=== PATIENT | female | born 1950 | race Caucasian/White ===

== ENCOUNTER 2019-12-10 14:54 | Inpatient (IN) | payer MEDICARE, BC, SELFPAY ==
[2019-12-10] VITALS (7 sets, daily range): BP systolic 124–132; BP diastolic 49–94; PULSE 55–63; RESP 12–16; TEMP 36.1; O2SAT 91–100; BMI 38.4
--- NOTE | ~2019-12-10 | CT_ITS ---
EXAMINATION: CT cervical spine wo con DATE: 12/10/2019 17:41 INDICATION: Neck pain TECHNIQUE: Computed tomography (CT) of the cervical spine was performed without intravenous contrast. The dose-length product was 459 mGy-cm. Automated exposure control and iterative reconstruction tech nique were employed. COMPARISON: None FINDINGS: There is degenerative anterolisthesis at C4-5. There is disc narrowing at C5-6 and C6-7 wit h dorsal osteophytes at these levels. Odontoid process within normal limits. There are are uncinate d egenerative changes of the mid and lower cervical spine. Lung apices are normal. No significant raymundo delmy soft tissue abnormality. Lung apices are unremarkable. IMPRESSION: 1. No acute abnormality of the cervical spine. Reviewed, dictated and finalized at location A.
--- NOTE | ~2019-12-10 | MR_ITS ---
EXAMINATION: MRA brain wo con DATE: 12/11/2019 08:08 INDICATION: Headache. Neck pain. Dizziness. TECHNIQUE: Magnetic resonance angiography (MRA) of the brain was performed without intravenous contra st with T1-weighted SPGR by the 3D [id number] technique. Maximum intensity projection 3D-reconstr uctions were obtained. COMPARISON: Brain MRI 12/11/2019 FINDINGS: There is mild motion artifact. Left vertebral artery is dominant. There is no significant stenosis of basilar artery or the posterior cerebral arteries. Left P1 posterior cerebral artery segment is smal l, a normal variant. There is no significant stenosis of the intracranial internal carotid arteries o r anterior or middle cerebral arteries. Anterior communicating artery is normal. The posterior commun icating arteries are normal. There is no aneurysm. IMPRESSION: 1. No aneurysm or significant intracranial arterial stenosis. Reviewed, dictated and finalized at location A.
--- NOTE | ~2019-12-10 | MR_ITS ---
EXAMINATION: MRA neck wo con DATE: 12/11/2019 08:09 INDICATION: Neck pain. Dizziness. TECHNIQUE: Magnetic resonance angiography (MRA) of the neck was performed without intravenous contras t. Sequences included axial 2D-time of flight T1-weighted FSPGR and axial Inhance without intravenous contrast. COMPARISON: Ultrasound 12/11/2019 FINDINGS: Left vertebral artery is dominant. There is mild plaque in the proximal internal carotid arteries. Th ere is 0% stenosis of the proximal right internal carotid artery relative to normal distal artery lum en diameter (NASCET criteria). There is 0% stenosis of the proximal left internal carotid artery rel ative to normal distal artery lumen diameter. IMPRESSION: 1. 0% stenosis of the proximal internal carotid arteries relative to normal distal artery lumen diame ters (NASCET criteria). Reviewed, dictated and finalized at location A. IMPRESSION: 1. 0% stenosis of the proximal internal carotid arteries relative to normal dis emigdio artery lumen diameters (NASCET criteria).
--- NOTE | ~2019-12-10 | CT_ITS ---
EXAMINATION: CT brain wo con DATE: 12/10/2019 17:41 INDICATION: Headache. Neck pain. TECHNIQUE: Computed tomography (CT) of the head was performed without intravenous contrast. The dose- length product was 605.33 mGy-cm. Automated exposure control and iterative reconstruction technique w ere employed. COMPARISON: 09/15/2018 FINDINGS: Generalized atrophy. There are scattered moderate periventricular and subcortical white mat ter changes, most likely related to small vessel ischemic disease (microangiopathy). No acute intracr anial hemorrhage, infarction, mass or mass effect. There is intracranial atherosclerosis. No midline shift. Paranasal sinuses and mastoids are pneumatized. No depressed skull fractures. IMPRESSION: 1. No acute intracranial abnormality. 2: Chronic age-related findings. Reviewed, dictated and finalized at location A.
--- NOTE | ~2019-12-10 | XR_ITS ---
EXAMINATION: XR chest 1V portable DATE: 12/10/2019 16:14 INDICATION: Shortness of breath. TECHNIQUE: A single frontal view of the chest was obtained. COMPARISON: Chest 2 views 09/15/2018 FINDINGS: The chest demonstrates clear lungs without pneumonia, pleural effusion, or pneumothorax. Th e heart size is normal. IMPRESSION: 1. No acute cardiopulmonary disease. Reviewed, dictated and finalized at location A.
--- NOTE | ~2019-12-10 | MR_ITS ---
EXAMINATION: MR brain/brain stem wo con DATE: 12/11/2019 08:08 INDICATION: Headache. Dizziness. TECHNIQUE: Magnetic resonance imaging (MRI) of the brain and brainstem was performed without intraven ous contrast. Sequences included sagittal and axial T1-weighted FSE, axial diffusion-weighted FS EPI, axial T2*-weighted GRE, axial T2-weighted FLAIR Propeller, and axial T2-weighted Propeller. Apparent diffusion coefficient (ADC) maps were created. COMPARISON: Brain MRI 09/16/2018, head CT 12/10/2019 FINDINGS: There are scattered areas of nonspecific increased T2-weighted signal intensity in the cere bral white matter and marlyn. There is no intracranial hemorrhage, acute infarction, or abnormal intrac ranial mass lesion. The ventricles are normal in size. The orbits are normal. There is mild mucosal t hickening in the paranasal sinuses. The mastoid air cells are normal. IMPRESSION: 1. Extensive nonspecific cerebral white matter disease and pontine disease, which likely represents c hronic small vessel ischemic disease, worsened from 09/16/2018. Reviewed, dictated and finalized at location A. IMPRESSION: 1. Extensive nonspecific cerebral white matter disease and pontine disease, whi ch likely represents chronic small vessel ischemic disease, worsened from 019.
--- NOTE | ~2019-12-10 | US_ITS ---
EXAMINATION: US carotid duplex BI DATE: 12/11/2019 09:27 INDICATION: Dizziness. TECHNIQUE: Grayscale, color Doppler, and pulsed Doppler images of the cervical carotid arteries were obtained. The degree of vessel stenosis is placed in one of the following categories: normal, <50%, 5 0-69%, >=70% but less than near-occlusion, near-occlusion, or total occlusion. Note that percent sten osis relative to normal distal artery lumen diameter is indirectly measured from velocity measurement s as described by Patel, et al. Radiology 2003; [id number]:340-346. COMPARISON: None. FINDINGS: RIGHT: The right common carotid artery (CCA) peak systolic velocity (PSV) is 72 cm/s. The right internal car otid artery (ICA) PSV is 57 cm/s. The right ICA end-diastolic velocity (EDV) is 10 cm/s. The right IC A/CCA PSV ratio is 0.8. Grayscale and color Doppler images yield an estimate of <50% diameter reducti on from plaque in the ICA. There is antegrade flow in the right vertebral artery. LEFT: The left CCA PSV is 72 cm/s. The left ICA PSV is 76 cm/s. The left ICA EDV is 18 cm/s. The left ICA/C CA PSV ratio is 1.1. Grayscale and color Doppler images yield an estimate of <50% diameter reduction from plaque in the ICA. There is antegrade flow in the left vertebral artery. IMPRESSION: 1. <50% stenosis in the right internal carotid artery. 2. <50% stenosis in the left internal carotid artery. Reviewed, dictated and finalized at location A.
--- NOTE | 2019-12-10 16:03 | ECG_ITS ---
Measurements Intervals [place] Rate: 60 P: 135 NM: 175 QRS: 183 QRSD: 92 T: 141 QT: 428 QTc: 429 Interpretive Statements SINUS RHYTHM LIMB LEAD REVERSAL BASELINE ARTIFACT- I, II, III, AVR, AVL, AVF, V1-V3 ATYPICAL ECG Electronically Signed On 12-10-2019 19:27:53 CDT by Calin Fernandez D.O.
--- NOTE | 2019-12-10 16:24 | ED.GENADULT ---
HPI - General Adult General Chief complaint: Unspecified Stated complaint: neck pain Time Seen by Provider: 12/10/19 15:45 Source: patient History of Present Illness HPI narrative: Patient is a 69 y/o female complaining of neck pain and headache earlier to day while she was talking a shower. She describes her pain as sharp and rates it as 10/10. She states that her neck pain eased up, but she still has a headache. She denies any injury prior to the onset of headache and neck pain. She is not sure about the exact time of onset. However, her states that it started around 2:00 PM. states that she complained of dizziness earlier. She also has been having SOB for 3 days. Related Data Home Medications Medication Instructions Recorded Confirmed albuterol sulfate 2 puff INHALATION DAILY PRN 12/10/19 12/11/19 aspirin [Morris Aspirin] 325 mg PO BID 12/10/19 12/10/19 atorvastatin 80 mg PO DAILY 12/10/19 12/10/19 carbidopa-levodopa 3 tablet PO Q8H 12/10/19 12/11/19 diazepam 10 mg PO TID 12/10/19 12/10/19 fluoxetine 40 mg PO BID 12/10/19 12/10/19 hydroxyzine pamoate 25 mg PO QID 12/10/19 12/10/19 loratadine [Claritin] 10 mg PO DAILY 12/10/19 12/10/19 losartan 50 mg PO DAILY 12/10/19 12/10/19 oxcarbazepine 300 mg PO BID 12/10/19 12/10/19 quetiapine 50 mg PO HS 12/10/19 12/10/19 Allergies Allergy/AdvReac Type Severity Reaction Status Date / Time iodine Allergy Unknown Hives Verified 12/10/19 21:42 latex Allergy Unknown Hives Verified 12/10/19 21:42 Contrast Media Allergy Mild Hives Uncoded 12/10/19 16:53 Review of Systems Constitutional: Constitutional: Denies chills, Denies fever(s), Reports headache(s) and Denies weakness Eyes: Eyes: Reports as per HPI and Denies blurry vision ENT: Reports headache(s) and Reports neck pain Cardiovascular: Cardiovascular: Denies chest pain and Reports dyspnea Respiratory: Respiratory: Denies cough and Reports dyspnea Gastrointestinal: Gastrointestinal: Denies abdominal pain, Denies diarrhea, Denies nausea and Denies vomiting Genitourinary: Genitourinary: Denies hematuria and Denies dysuria Musculoskeletal: Musculoskeletal: Denies back pain and Denies neck pain Neurologic: Reports headache(s) and Denies weakness [facility] Family History Family History Grandparent Diabetes mellitus Acute myocardial infarction Father Acute myocardial infarction Mother Acute myocardial infarction Social History Social History Smoking packs per day: 1 Smoking cigarettes per day: 20.0 Years smoked: 40 Smoking pack-years: 40.00 Smoking status: Current every day smoker Tobacco type: cigarettes Alcohol intake: never Gender identity (if verbalized by the patient): Female Spiritual care concerns: No Exam Const: General: no acute distress and well developed Orientation/consciousness: oriented to person, oriented to place, oriented to time and patient oriented x3 HENMT: Head: normocephalic Ears: external ears normal General nose exam: Normal external nose present Eyes: General: appearance normal, both eyes and all related structures Conjunctivae: conjunctivae normal Neck: Neck: normal visual inspection and full ROM Chest: Chest palpation & inspection: normal inspection of the chest and no tenderness Resp: Effort & Inspection: normal respiratory effort Auscultation: clear to auscultation bilaterally Cardio: Rate: regular rate Rhythm: regular rhythm GI: GI Palp: No abdominal tenderness and Yes Soft to palpation Skin: General skin exam: normal color and turgor normal Neuro: General: oriented to person, oriented to place, oriented to time and patient oriented x3 Cranial nerves: Yes CN's II-XII intact bilaterally Cognition (Neuro): normal cognition Speech: normal speech Motor exam (neuro): 5/5 motor strength present throughout Sensory Exam: normal sensation
[2019-12-10 16:27] LABS: Basophils Absolute Auto 0.1 K/mm3 (0.0-0.1); Basophils Percent Auto 0.6 % (0.2-1.2); Eosinophils Absolute Auto 0.3 K/mm3 (0-0.3); Eosinophils Percent Auto 2.5 % (0-4.4); Hematocrit 32.7 % (37.0-47.0); Hemoglobin 10.1 g/dL (12.0-15.0); Immature Granulocyte Absolute 0.06 K/mm3 (0.00-0.031); Immature Granulocyte Percent A 0.5 % (0-0.5); Lymphocytes Absolute Auto 0.86 K/mm3 (0.9-3.2); Lymphocytes Percent Auto 6.9 % (18.3-44.2); Mean Corpuscular HGB Conc 30.9 g/dl (32-36); Mean Corpuscular Hemoglobin 27.7 pg (26-34); Mean Corpuscular Volume 89.8 fl (80-100); Mean Platelet Volume 10.7 fl (7.4-10.4); Monocytes Absolute Auto 0.7 K/mm3 (0.1-0.6); Monocytes Percent Auto 5.8 % (2.6-8.5); Neutrophils Absolute Auto 10.5 K/mm3 (1.3-6.7); Neutrophils Percent Auto 83.7 % (45.5-73.1); Platelet Count Result 353 k/mm3 (150-375); Red Blood Count 3.64 M/mm3 (4.2-5.4); White Blood Count 12.5 K/mm3 (4.5-10.0)
[2019-12-10 16:41] LABS: Alanine Aminotransferase 7 U/L (4-35); Albumin Level 4.2 g/dL (3.5-5.1); Alkaline Phosphatase 144 U/L (38-126); Anion Gap 11 mmol/L (8-16); Aspartate Amino Transferase 16 U/L (14-36); Bilirubin,Total 0.3 mg/dL (0.2-1.3); Blood Urea Nitrogen 21 mg/dL (7-17); Calcium 10.2 mg/dL (8.4-10.2); Carbon Dioxide 25 mmol/L (22-30); Chloride 101 mmol/L (98-107); Estimated CRCL calculation 35 ml/min; Estimated Glomerular Filt Rate 34; Glucose 159 mg/dL (65-105); Potassium 3.8 mmol/L (3.4-5.0); Sodium 137 mmol/L (137-145)
[2019-12-10 16:52] LABS: Troponin I < 0.012 ng/mL (0.000-0.034)
[2019-12-10] MEDS: CYCLOBENZAPRINE HCL 10 MG TABLET PO (20:14)
[2019-12-10] MEDS: ASPIRIN 81 MG CHEWABLE TABLET PO (20:15)
[2019-12-10 20:35] LABS: Troponin I < 0.012 ng/mL (0.000-0.034)
--- NOTE | 2019-12-10 21:20 | ADMGEN ---
This patient, Jenni Rondon, was admitted to Medical Room 347-. Patient/family oriented to hospital policies and general routines including ID bracelet, bed and alarms, visiting hours, pain management, procedures, bathroom and other care routines, personal items, smoking policy, room service/diet, and visiting hours. Information on how to activate the Rapid Response Team has been discussed. Patient/Family are encouraged to report perceived risks to care and to ask questions if they do not understand what they are told or what they should do.
[2019-12-10 23:02] LABS: Troponin I < 0.012 ng/mL (0.000-0.034)
[2019-12-11] VITALS (8 sets, daily range): BP systolic 100–130; BP diastolic 52–70; PULSE 53–60; RESP 12–18; TEMP 35.9–36.8; O2SAT 94–98
[2019-12-11 08:36] LABS: Glucose Point of Care 103 (65-105)
[2019-12-11] MEDS: LORATADINE 10 MG TABLET PO (11:09)
[2019-12-11] MEDS: OXcarbazepine 300 MG TABLET PO ×2 (11:09→21:09)
[2019-12-11] MEDS: FLUoxetine HCL 20 MG CAPSULE 40 MG PO ×2 (11:09→21:09)
[2019-12-11] MEDS: ASPIRIN 325 MG TABLET PO ×2 (11:10→21:09)
[2019-12-11] MEDS: LOSARTAN POTASSIUM 50 MG TABLET PO (11:10)
[2019-12-11] MEDS: ATORVASTATIN 40 MG TABLET 80 MG PO (11:10)
[2019-12-11] MEDS: LIDOCAINE 5% PATCH 2 PATCH TRANSDERM (11:11)
[2019-12-11 11:37] LABS: Glucose Point of Care 143 (65-105)
[2019-12-11] MEDS: hydrOXYzine pamoate 25 MG CAPSULE PO ×3 (12:32→21:11)
[2019-12-11] MEDS: diazePAM (*CRX) 5 MG TABLET 10 MG PO ×2 (12:32→17:09)
[2019-12-11] MEDS: CARBIDOPA/LEVODOPA 25/100 MG TABLET 3 TABLET PO ×2 (12:32→21:11)
--- NOTE | 2019-12-11 12:54 | PM.IMHP ---
H&P: HPI History of Present Illness Date/Time: 12/11/19 12:54 Chief complaint: neck pain/dizziness Narrative: Jenni Rondon is a 69 year old female with history of Parkinson's, hypertension, patient presented emergency department with a complaint sharp neck pain and headache while taking shower yesterday evening, the pain had started earlier in the afternoon, patient denies any trauma or injury, patient did feel dizzy, by the time patient came to emergency depart the intensity of the pain had improved, this morning patient states the pain still there but not as intense, patient states she is able to move her neck and there is no increase in her pain, upon close examination the pain is located along the lower cervical spine and paraspinal muscles, to further evaluate patient had MRA of the head and neck which were essentially normal without any stenosis, similarly CT scan of cervical spine does not show any sign of injury or trauma, MRI of the brain did not show any acute injury, patient does have extensive nonspecific cerebral white matter disease and pontine disease, which likely represents chronic small vessel ischemic disease, worsened from 09/16/2018 as stated earlier patient pain is reproducible in the lower cervical spine and paraspinal muscles most likely patient has a muscular pain, as patient denies any numbness tingling in upper extremities with movement of her neck, will apply Lidoderm patches and have a PT OT evaluate the patient Review of Systems Review of Systems: All systems reviewed & are unremarkable except as noted in HPI and below PMFSH Family History Family History Grandparent Diabetes mellitus Acute myocardial infarction Father Acute myocardial infarction Mother Acute myocardial infarction Social History Social History Smoking packs per day: 1 Smoking cigarettes per day: 20.0 Years smoked: 40 Smoking pack-years: 40.00 Smoking status: Current every day smoker Tobacco type: cigarettes Alcohol intake: never Gender identity (if verbalized by the patient): Female Spiritual care concerns: No Meds Home Medications and Allergies Home Medications Medication Instructions Recorded Confirmed Type albuterol sulfate 2 puff INHALATION DAILY PRN 12/10/19 12/11/19 History aspirin [Morris Aspirin] 325 mg PO BID 12/10/19 12/10/19 History atorvastatin 80 mg PO DAILY 12/10/19 12/10/19 History carbidopa-levodopa 3 tablet PO Q8H 12/10/19 12/11/19 History diazepam 10 mg PO TID 12/10/19 12/10/19 History fluoxetine 40 mg PO BID 12/10/19 12/10/19 History hydroxyzine pamoate 25 mg PO QID 12/10/19 12/10/19 History loratadine [Claritin] 10 mg PO DAILY 12/10/19 12/10/19 History losartan 50 mg PO DAILY 12/10/19 12/10/19 History oxcarbazepine 300 mg PO BID 12/10/19 12/10/19 History quetiapine 50 mg PO HS 12/10/19 12/10/19 History Allergies Allergy/AdvReac Type Severity Reaction Status Date / Time iodine Allergy Unknown Hives Verified 12/10/19 21:42 latex Allergy Unknown Hives Verified 12/10/19 21:42 Contrast Media Allergy Mild Hives Uncoded 12/10/19 16:53 Vital Signs Vital Signs - 24 hr 12/10/19 14:58 12/10/19 17:03 12/10/19 18:48 Temperature 97.0 F L Pulse Rate 63 58 L 61 Respiratory Rate 16 12 16 Blood Pressure 128/78 125/49 L 127/57 L Pulse Oximetry 100 91 100 12/10/19 20:15 12/10/19 21:09 12/10/19 22:12 Temperature Pulse Rate 59 L 55 L 59 L Respiratory Rate 13 16 Blood Pressure 132/61 124/94 H Pulse Oximetry 98 98 12/10/19 23:57 12/11/19 00:00 12/11/19 04:00 Temperature 97 F L Pulse Rate 55 L 59 L 59 L Respiratory Rate 16 Blood Pressure 127/50 L Pulse Oximetry 99 12/11/19 05:52 12/11/19 12:00 12/11/19 12:33 Temperature 97 F L 96.7 F L Pulse Rate 60 59 L 58 L Respiratory Rate 16 18 Blood Pressure 126/56 L 130/70 Pulse Oximetry 97 97
[2019-12-11] MEDS: ACETAMINOPHEN 325 MG TABLET 650 MG PO (13:57)
--- NOTE | 2019-12-11 15:23 | PCOTNOTE ---
On 12/11/19, the student, Susi Haynes, provided care and completed [facility] documentation on this patient. I have reviewed the student's documentation and agree with the findings.
[2019-12-11] MEDS: QUEtiapine FUMARATE 25 MG TABLET 50 MG PO (21:09)
[2019-12-12] VITALS (7 sets, daily range): BP systolic 96–130; BP diastolic 44–62; PULSE 55–66; RESP 12–18; TEMP 36.1–36.5; O2SAT 96–99
[2019-12-12] MEDS: CARBIDOPA/LEVODOPA 25/100 MG TABLET 3 TABLET PO ×2 (05:26→13:00)
[2019-12-12 05:45] LABS: Hematocrit 30.4 % (37.0-47.0); Hemoglobin 9.5 g/dL (12.0-15.0); Mean Corpuscular HGB Conc 31.3 g/dl (32-36); Mean Corpuscular Volume 89.7 fl (80-100); Mean Platelet Volume 11.1 fl (7.4-10.4); Platelet Count Result 292 k/mm3 (150-375); Red Blood Count 3.39 M/mm3 (4.2-5.4); Red Cell Distribution Width 15.5 % (11.5-14.5); White Blood Count 5.7 K/mm3 (4.5-10.0)
[2019-12-12 06:01] LABS: Anion Gap 8 mmol/L (8-16); Blood Urea Nitrogen 21 mg/dL (7-17); Calcium 9.2 mg/dL (8.4-10.2); Carbon Dioxide 24 mmol/L (22-30); Chloride 107 mmol/L (98-107); Estimated CRCL calculation 40 ml/min; Estimated Glomerular Filt Rate 40; Glucose 121 mg/dL (65-105); Potassium 4.3 mmol/L (3.4-5.0); Sodium 139 mmol/L (137-145)
[2019-12-12] MEDS: diazePAM (*CRX) 5 MG TABLET 10 MG PO ×3 (08:08→17:01)
[2019-12-12] MEDS: ASPIRIN 325 MG TABLET PO ×2 (08:08→17:01)
[2019-12-12] MEDS: FLUoxetine HCL 20 MG CAPSULE 40 MG PO (08:08)
[2019-12-12] MEDS: ATORVASTATIN 40 MG TABLET 80 MG PO (08:08)
[2019-12-12] MEDS: LOSARTAN POTASSIUM 50 MG TABLET PO (08:09)
[2019-12-12] MEDS: OXcarbazepine 300 MG TABLET PO (08:09)
[2019-12-12] MEDS: LORATADINE 10 MG TABLET PO (08:09)
[2019-12-12] MEDS: ACETAMINOPHEN 325 MG TABLET 650 MG PO (08:09)
[2019-12-12] MEDS: LIDOCAINE 5% PATCH 2 PATCH TRANSDERM (08:10)
[2019-12-12] MEDS: hydrOXYzine pamoate 25 MG CAPSULE PO ×3 (08:11→17:01)
--- NOTE | 2019-12-12 10:43 | PC.NURSE ---
Message left for inclusion paraeducator.
--- NOTE | 2019-12-12 15:26 | PM.IMPN ---
Progress Note: A&P Assessment and Plan (1) Neck pain: Code(s): M54.2 - Cervicalgia Status: Acute Assessment and Plan: 12/12/19 15:26 Jenni Rondon is a 69 year old female with history of Parkinson's, hypertension, patient presented emergency department with a complaint sharp neck pain and headache while taking shower yesterday evening, the pain had started earlier in the afternoon, patient denies any trauma or injury, patient did feel dizzy, by the time patient came to emergency depart the intensity of the pain had improved, this morning patient states the pain still there but not as intense, patient states she is able to move her neck and there is no increase in her pain, upon close examination the pain is located along the lower cervical spine and paraspinal muscles, to further evaluate patient had MRA of the head and neck which were essentially normal without any stenosis, similarly CT scan of cervical spine does not show any sign of injury or trauma, MRI of the brain did not show any acute injury, patient does have extensive nonspecific cerebral white matter disease and pontine disease, which likely represents chronic small vessel ischemic disease, worsened. as stated earlier patient pain is reproducible in the lower cervical spine and paraspinal muscles most likely patient has a muscular pain, as patient denies any numbness tingling in upper extremities with movement of her neck, will apply Lidoderm patches and have a PT OT evaluate the patient today 12/11 patient still complains of pain in the neck and upper shoulder shoulders, however patient appears more depressed and concerned as patient has 2 adult autistic children in the event of her will take care of her children, I have spoken to long term care social worker and they will provide information regarding this matter, I spoke with her nurse and patient is more relax now, may possibly discharge if her family is comfortable taking her home. (2) Parkinson disease: Code(s): G20 - Parkinson's disease Status: Acute Assessment and Plan: continue patient's home regimen and monitor (3) Hypertension: Code(s): I10 - Essential (primary) hypertension Status: Acute Assessment and Plan: will continue patient's home regimen and monitor (4) Depression: Code(s): F32.9 - Major depressive disorder, single episode, unspecified Status: Acute Assessment and Plan: will continue patient's home regimen and monitor Subjective Date/time seen: 12/12/19 15:26 Jenni Rondon is a 69 year old female with history of Parkinson's, hypertension, patient presented emergency department with a complaint sharp neck pain and headache while taking shower yesterday evening, the pain had started earlier in the afternoon, patient denies any trauma or injury, patient did feel dizzy, by the time patient came to emergency depart the intensity of the pain had improved, this morning patient states the pain still there but not as intense, patient states she is able to move her neck and there is no increase in her pain, upon close examination the pain is located along the lower cervical spine and paraspinal muscles, to further evaluate patient had MRA of the head and neck which were essentially normal without any stenosis, similarly CT scan of cervical spine does not show any sign of injury or trauma, MRI of the brain did not show any acute injury, patient does have extensive nonspecific cerebral white matter disease and pontine disease, which likely represents chronic small vessel ischemic disease, worsened. as stated earlier patient pain is reproducible in the lower cervical spine and paraspinal muscles most likely patient has a muscular pain, as patient denies any numbness tingling in upper extremities with movement of her neck, will apply Lidoderm patches and have a PT OT evaluate the patient today 12/11 patient still complains of pain in the
--- NOTE | 2019-12-12 16:10 | PM.DS ---
DS: Admitting Diagnosis Admitting Diagnosis Admitting Diagnosis: neck pain/dizziness DS: Discharge Diagnosis Discharge Diagnosis (1) Neck pain: Code(s): M54.2 - Cervicalgia Status: Acute Assessment and Plan: 12/12/19 15:26 Jenni Rondon is a 69 year old female with history of Parkinson's, hypertension, patient presented emergency department with a complaint sharp neck pain and headache while taking shower yesterday evening, the pain had started earlier in the afternoon, patient denies any trauma or injury, patient did feel dizzy, by the time patient came to emergency depart the intensity of the pain had improved, this morning patient states the pain still there but not as intense, patient states she is able to move her neck and there is no increase in her pain, upon close examination the pain is located along the lower cervical spine and paraspinal muscles, to further evaluate patient had MRA of the head and neck which were essentially normal without any stenosis, similarly CT scan of cervical spine does not show any sign of injury or trauma, MRI of the brain did not show any acute injury, patient does have extensive nonspecific cerebral white matter disease and pontine disease, which likely represents chronic small vessel ischemic disease, worsened. as stated earlier patient pain is reproducible in the lower cervical spine and paraspinal muscles most likely patient has a muscular pain, as patient denies any numbness tingling in upper extremities with movement of her neck, will apply Lidoderm patches and have a PT OT evaluate the patient today 12/11 patient still complains of pain in the neck and upper shoulder shoulders, however patient appears more depressed and concerned as patient has 2 adult autistic children in the event of her will take care of her children, I have spoken to specialist wound care and they will provide information regarding this matter, I spoke with her nurse and patient is more relax now, may possibly discharge if her family is comfortable taking her home. (2) Parkinson disease: Code(s): G20 - Parkinson's disease Status: Acute Assessment and Plan: continue patient's home regimen and monitor (3) Hypertension: Code(s): I10 - Essential (primary) hypertension Status: Acute Assessment and Plan: will continue patient's home regimen and monitor (4) Depression: Code(s): F32.9 - Major depressive disorder, single episode, unspecified Status: Acute Assessment and Plan: will continue patient's home regimen and monitor DS: Summary Hospital Course Reason for hospitalization: Chief complaint: neck pain/dizziness Narrative: Jenni Rondon is a 69 year old female with history of Parkinson's, hypertension, patient presented emergency department with a complaint sharp neck pain and headache while taking shower yesterday evening, the pain had started earlier in the afternoon, patient denies any trauma or injury, patient did feel dizzy, by the time patient came to emergency depart the intensity of the pain had improved, this morning patient states the pain still there but not as intense, patient states she is able to move her neck and there is no increase in her pain, upon close examination the pain is located along the lower cervical spine and paraspinal muscles, to further evaluate patient had MRA of the head and neck which were essentially normal without any stenosis, similarly CT scan of cervical spine does not show any sign of injury or trauma, MRI of the brain did not show any acute injury, patient does have extensive nonspecific cerebral white matter disease and pontine disease, which likely represents chronic small vessel ischemic disease, worsened from 09/16/2018 as stated earlier patient pain is reproducible in the lower cervical spine and paraspinal muscles most likely patient has a muscular pain, as patient denies any numbness tinglin
== END 2019-12-12 17:20 | disposition home or self-care (01) | DRG 552 ==
LOC: ANHED 15:45 → ANH3MED 20:40
PROVIDERS: Admitting Provider Internal Medicine; Emergency Provider Emergency Medicine; Visit Provider Family Medicine
DX: M54.2 Cervicalgia (principal); R51.9 Headache, unspecified; R42 Dizziness and giddiness; G20 Parkinson's disease; I10 Essential (primary) hypertension; F32.9 Major depressive disorder, single episode, unspecified; F17.210 Nicotine dependence, cigarettes, uncomplicated; Z79.82 Long term (current) use of aspirin; Z79.899 Other long term (current) drug therapy
CPT/HCPCS: 36415; 70450; 70544; 70547; 70551; 71045; 72125; 80048; 80053; 84484; 85025; 85027; 93005; 93880; 97161; 97165; 97530; 97535; 99285; A9270; G0378

== ENCOUNTER 2019-12-16 05:38 | Inpatient (IN) | payer MEDICARE, BC, SELFPAY ==
[2019-12-16] VITALS (17 sets, daily range): BP systolic 107–176; BP diastolic 52–77; PULSE 64–74; RESP 13–22; TEMP 36.9–37.2; O2SAT 97–100; BMI 39.2
--- NOTE | ~2019-12-16 | XR_ITS ---
EXAMINATION: XR chest 1V portable INDICATION: Chest pain TECHNIQUE: Portable AP chest at 0610 hours COMPARISON: 12/10/2019 FINDINGS: The lungs are free of acute opacities. There is no pleural effusion or pneumothorax. The he art size is normal. There is calcified atherosclerosis. IMPRESSION: 1. No acute cardiopulmonary abnormality. Reviewed, dictated and finalized at location A. SR
--- NOTE | ~2019-12-16 | CT_ITS ---
EXAMINATION: CT abdomen pelvis wo con DATE: 12/16/2019 08:26 INDICATION: Abdominal pain TECHNIQUE: Computed tomography (CT) of the abdomen and pelvis was performed without intravenous contr ast. The dose-length product (DLP) was 1104.47 mGy-cm. Automated exposure control and iterative recon struction technique were employed. COMPARISON: 02/13/2007 FINDINGS: Minimal dependent atelectasis is present in the lung bases. The heart size is normal. The l iver, spleen, pancreas, gallbladder, and adrenal glands are normal. There is a [address] one of the right kidney upper pole. A 12 mm cyst is noted in the left kidney. No pathologically enlar ged abdominal or pelvic lymph nodes are identified. There is no free intraperitoneal gas or evidence of bowel obstruction. The appendix is normal. There is mild lumbar spondylosis. Stable lobulated soft tissue and fat attenuation area near the medial aspect of the left gluteus presley muscle likely ref lects prior trauma. IMPRESSION: 1. No CT correlate for the patient's symptoms. Reviewed, dictated and finalized at location A. MASTER
--- NOTE | ~2019-12-16 | CT_ITS ---
EXAMINATION: CT brain wo con INDICATION: Transient alteration of awareness COMPARISON: 12/10/2019 TECHNIQUE: Standard unenhanced head CT. The dose-length product (DLP) was 605.33 mGy-cm. The mA was a djusted according to patient size. Iterative reconstruction technique was employed. FINDINGS: There is no acute intraparenchymal hemorrhage. No evidence of mass lesion. No evidence of a cute infarction. There is moderate periventricular and subcortical hypodensity probably related to sm all vessel ischemic disease. There is mild prominence of the sulci and ventricles related to cerebral atrophy. Intracranial calcified cerebral atherosclerosis is noted. There are no extra-axial collecti ons. There is no mass effect or midline shift. The orbits and soft tissues are unremarkable. There i s mild mucosal thickening of the paranasal sinuses. IMPRESSION: 1. No acute intracranial abnormality. 2. Age related findings. Reviewed, dictated and finalized at location A. TY SPECIALIST
--- NOTE | ~2019-12-16 | NM_ITS ---
EXAMINATION: NM pulmonary perfusion EXAM DATE: 12/16/2019 10:02 INDICATION: dyspnea, elevated d dimer. TECHNIQUE: A perfusion lung scan was performed. The patient was injected with 5.4 mCi technetium 99 m MAA and imaged. Modified PIOPED 2 criteria used for interpretation of perfusion without ventilation study (recent chest x-ray instead for comparison). Comparison is made to prior examination from 2010. Correlation was made with chest x-ray same date. FINDINGS: There are no chest x-ray opacities. Minimally heterogeneous nonsegmental left upper lobe ac tivity, perfusion without segmental defect. IMPRESSION: Low probability pulmonary embolism. Reviewed, dictated and finalized at location B. R RESOURCE MANAGER
--- NOTE | 2019-12-16 05:53 | ECG_ITS ---
Measurements Intervals [place] Rate: 66 P: 74 SD: 201 QRS: 3 QRSD: 76 T: 27 QT: 389 QTc: 410 Interpretive Statements SINUS RHYTHM BASELINE ARTIFACT- V1 NORMAL ECG Electronically Signed On 12-16-2019 6:59:22 [employer] by Calin Fernandez D.O.
--- NOTE | 2019-12-16 05:54 | ED.SYNCOPE ---
HPI - Syncope General Chief Complaint: Fall <Fly Ramsey MD - Last Filed: 12/16/19 06:41> Stated Complaint: fall, syncope <Fly Ramsey MD - Last Filed: 12/16/19 06:41> Time Seen by Provider: 12/16/19 05:44 <Fly Ramsey MD - Last Filed: 12/16/19 06:41> Source: patient <Fly Ramsey MD - Last Filed: 12/16/19 06:41> Mode of arrival: EMS <Fly Ramsey MD - Last Filed: 12/16/19 06:41> Limitations: no limitations <Fly Ramsey MD - Last Filed: 12/16/19 06:41> History of Present Illness HPI narrative: Patient is a 69-year-old female brought in by EMS due to syncopal episode at home witnessed by family. Patient states that she was getting up to go the restroom when she felt weak and passed out. Patient states that she was also having chest pain last night but not having any now. Patient denies any shortness of breath, nausea vomiting, abdominal pain, or fever. <Fly Ramsey MD - Last Filed: 12/16/19 06:41> Related Data Home Medications: Home Medications Medication Instructions Recorded Confirmed albuterol sulfate 2 puff INHALATION DAILY PRN 12/10/19 12/11/19 aspirin [Morris Aspirin] 325 mg PO BID 12/10/19 12/10/19 atorvastatin 80 mg PO DAILY 12/10/19 12/10/19 carbidopa-levodopa 3 tablet PO Q8H 12/10/19 12/11/19 diazepam 10 mg PO TID 12/10/19 12/10/19 fluoxetine 40 mg PO BID 12/10/19 12/10/19 hydroxyzine pamoate 25 mg PO QID 12/10/19 12/10/19 loratadine [Claritin] 10 mg PO DAILY 12/10/19 12/10/19 losartan 50 mg PO DAILY 12/10/19 12/10/19 oxcarbazepine 300 mg PO BID 12/10/19 12/10/19 quetiapine 50 mg PO HS 12/10/19 12/10/19 <Fly Ramsey MD - Last Filed: 12/16/19 06:41> Allergies/Adverse Reactions: Allergies Allergy/AdvReac Type Severity Reaction Status Date / Time iodine Allergy Unknown Hives Verified 12/16/19 05:51 latex Allergy Unknown Hives Verified 12/16/19 05:51 Contrast Media Allergy Mild Hives Uncoded 12/10/19 16:53 <Fly Ramsey MD - Last Filed: 12/16/19 06:41> Review of Systems Review of Systems: All systems reviewed & are unremarkable except as noted in HPI and below <Fly Ramsey MD - Last Filed: 12/16/19 06:41> Constitutional: Constitutional: Denies body ache(s), Denies chills, Denies excessive sweating, Denies fatigue, Denies fever(s), Denies headache(s), Denies lethargy, Denies malaise and Denies weight loss <Fly Ramsey MD - Last Filed: 12/16/19 06:41> Eyes: Eyes: Denies blurry vision, Denies change in vision and Denies loss of vision <Fly Ramsey MD - Last Filed: 12/16/19 06:41> ENT: Denies dizziness, Denies ear discharge, Denies headache(s), Denies lip swelling, Denies epistaxis, Denies nasal congestion, Denies neck pain, Denies throat swelling and Denies tongue swelling <Fly Ramsey MD - Last Filed: 12/16/19 06:41> Cardiovascular: Cardiovascular: Denies chest pain, Denies chest pain at rest, Denies chest pain with activity, Denies diaphoresis, Denies rapid heart rate, Denies edema, Denies irregular heart rhythm, Denies lightheadedness, Denies palpitations, Denies dyspnea and Denies dyspnea on exertion <Fly Ramsey MD - Last Filed: 12/16/19 06:41> Respiratory: Respiratory: Denies chest congestion, Denies cough, Denies hemoptysis, Denies dyspnea and Denies dyspnea on exertion <Fly Ramsey MD - Last Filed: 12/16/19 06:41> Gastrointestinal: Gastrointestinal: Denies abdominal pain, Denies melena, Denies hematochezia, Denies diarrhea, Denies nausea, Denies vomiting and Denies hematemesis <Fly Ramsey MD - Last Filed: 12/16/19 06:41> Musculoskeletal: Musculoskeletal: Denies abnormal gait, Denies deformity, Denies joint swelling, Denies limited range of motion, Denies neck pain and Denies numbness <Fly Ramsey MD - Last Filed: 12/16/19 06:41> Neurologic: Denies Abnormal speech present, Denies abnormal gait, Denies confusion, Denies dizziness, D
[2019-12-16] MEDS: SODIUM CHLORIDE 0.9% IV 1,000 ML 999 ML IV CONT (06:14)
[2019-12-16 06:45] LABS: Basophils Absolute Auto 0.1 K/mm3 (0.0-0.1); Basophils Percent Auto 0.8 % (0.2-1.2); Eosinophils Absolute Auto 0.6 K/mm3 (0-0.3); Eosinophils Percent Auto 5.9 % (0-4.4); Hematocrit 34.4 % (37.0-47.0); Hemoglobin 10.5 g/dL (12.0-15.0); Immature Granulocyte Absolute 0.05 K/mm3 (0.00-0.031); Immature Granulocyte Percent A 0.5 % (0-0.5); Lymphocytes Absolute Auto 1.11 K/mm3 (0.9-3.2); Lymphocytes Percent Auto 11.6 % (18.3-44.2); Mean Corpuscular HGB Conc 30.5 g/dl (32-36); Mean Corpuscular Hemoglobin 27.7 pg (26-34); Mean Corpuscular Volume 90.8 fl (80-100); Mean Platelet Volume 11.4 fl (7.4-10.4); Monocytes Absolute Auto 0.7 K/mm3 (0.1-0.6); Monocytes Percent Auto 7.1 % (2.6-8.5); Neutrophils Absolute Auto 7.1 K/mm3 (1.3-6.7); Neutrophils Percent Auto 74.1 % (45.5-73.1); Platelet Count Result 286 k/mm3 (150-375); Red Blood Count 3.79 M/mm3 (4.2-5.4); Red Cell Distribution Width 15.5 % (11.5-14.5); White Blood Count 9.5 K/mm3 (4.5-10.0)
[2019-12-16] MEDS: ONDANSETRON INJ 4 MG/2 ML VIAL IV PUSH ×4 (06:49→21:38)
[2019-12-16] MEDS: MORPHINE SULFATE (*CRX) 2 MG/ML INJ IV PUSH (06:49)
[2019-12-16 06:54] LABS: INR 0.9; Prothrombin Time 13.2 Seconds (11.1-14.7)
[2019-12-16 06:55] LABS: Partial Thromboplastin Time 24.4 SECONDS (22.3-36.8)
[2019-12-16 06:58] LABS: Albumin Level 4.1 g/dL (3.5-5.1); Alkaline Phosphatase 135 U/L (38-126); Anion Gap 12 mmol/L (8-16); Aspartate Amino Transferase 17 U/L (14-36); Bilirubin,Total 0.2 mg/dL (0.2-1.3); Blood Urea Nitrogen 21 mg/dL (7-17); Calcium 10.3 mg/dL (8.4-10.2); Carbon Dioxide 22 mmol/L (22-30); Chloride 106 mmol/L (98-107); Estimated CRCL calculation 44 ml/min; Estimated Glomerular Filt Rate 44; Glucose 146 mg/dL (65-105); Potassium 4.5 mmol/L (3.4-5.0); Sodium 140 mmol/L (137-145)
[2019-12-16 07:05] LABS: Alanine Aminotransferase < 6 U/L (4-35)
[2019-12-16 07:09] LABS: Troponin I < 0.012 ng/mL (0.000-0.034)
[2019-12-16 08:01] LABS: D Dimer > 20.00 ug/mL (<0.48)
[2019-12-16 09:53] LABS: Troponin I < 0.012 ng/mL (0.000-0.034)
[2019-12-16 10:46] LABS: Add Urine Microscopic? YES; Appearance Urine Cloudy (Clear); Bacteria Urine 2+ /hpf; Bilirubin Urine Negative (Negative); Blood Urine 2+ (Negative); Color Urine Yellow (Yellow); Glucose Urine UA Negative (Negative); Hyaline Casts Urine 30-49 /lpf; Ketones Urine Trace mg/dL (Negative); Leukocyte Esterase Ur 2+ LEU/UL (Negative); Mucus Urine Few /lpf; Nitrate Urine Positive (Negative); Protein Urine 2+ mg/dL (Negative); Specific Grav Ur 1.017 (1.001-1.035); Squamous Epithelial Cell Urine Moderate /hpf (Few); WBC Clumps Urine Present /HPF; WBC Urine 51-75 /hpf
--- NOTE | 2019-12-16 12:10 | ADMGEN ---
This patient, Jenni Rondon, was admitted to Medical Room 244-. Patient/family oriented to hospital policies and general routines including ID bracelet, bed and alarms, visiting hours, pain management, procedures, bathroom and other care routines, personal items, smoking policy, room service/diet, and visiting hours. Information on how to activate the Rapid Response Team has been discussed. Patient/Family are encouraged to report perceived risks to care and to ask questions if they do not understand what they are told or what they should do.
[2019-12-16] MEDS: LACTATED RINGERS 1,000 ML 80 ML IV CONT (12:27)
--- NOTE | 2019-12-16 12:59 | WPDGICN ---
Assessment and Plan Assessment and plan (1) GI bleed: Code(s): K92.2 - Gastrointestinal hemorrhage, unspecified Status: Acute Assessment and Plan: GI bleeding of uncertain etiology. She has description of both black melenic stools as well as bright red blood. She has a history of colon polyps as recently as 1 and half years ago. Plan is for GI endoscopy to include both colonoscopy an EGD tomorrow after preparation today. Hemoglobin will continue be monitored in the interim. Her urinary tract infection will be treated with antibiotics. We will follow with you. (2) Syncope: Code(s): R55 - Syncope and collapse Status: Acute (3) Anemia: Code(s): D64.9 - Anemia, unspecified Status: Acute (4) Acute UTI: Code(s): N39.0 - Urinary tract infection, site not specified Status: Acute (5) Parkinson disease: Code(s): G20 - Parkinson's disease Status: Acute (6) History of colon polyps: Code(s): Z86.010 - Personal history of colonic polyps Status: Acute GI Consult Note Consult date/time: 12/16/19 12:59 HPI: Jenni Rondon is a 69 year old female Seen in evaluation at the request of the emergency room. Patient in usual state of health will this morning and had a syncopal episode. Ambulance was called noted to have bloody stools upon presenting to the emergency room. Stools have been described as black and melenic but also has bright red blood. Patient complains of abdominal cramping. She states 1-1/2 years ago had a colonoscopy at [facility] in multiple polyps were removed. She is not on blood thinners. Past medical history is significant for Parkinson's disease, bipolar manic depressive illness, she currently has been treated for urinary tract infection. She recently has complaints of neck pain. She denies the use of nonsteroidal anti-inflammatory agents. Review of Systems Review of Systems: Narrative: Complains of neck pain. All systems reviewed & are unremarkable except as noted in HPI and below PMFSH Family History Family History Grandparent Diabetes mellitus Acute myocardial infarction Father Acute myocardial infarction Mother Acute myocardial infarction Social History Social History Smoking packs per day: 1 Smoking cigarettes per day: 20.0 Years smoked: 40 Smoking pack-years: 40.00 Smoking status: Current every day smoker Tobacco type: cigarettes Alcohol intake: never Gender identity (if verbalized by the patient): Female Spiritual care concerns: No Meds Home Medications and Allergies Home Medications Medication Instructions Recorded Confirmed Type albuterol sulfate 2 puff INHALATION DAILY PRN 12/10/19 12/11/19 History atorvastatin 80 mg PO DAILY 12/10/19 12/10/19 History carbidopa-levodopa 3 tablet PO Q8H 12/10/19 12/11/19 History diazepam 10 mg PO TID 12/10/19 12/10/19 History fluoxetine 40 mg PO BID 12/10/19 12/10/19 History hydroxyzine pamoate 25 mg PO QID 12/10/19 12/10/19 History loratadine [Claritin] 10 mg PO DAILY 12/10/19 12/10/19 History losartan 50 mg PO DAILY 12/10/19 12/10/19 History oxcarbazepine 300 mg PO BID 12/10/19 12/10/19 History quetiapine 50 mg PO HS 12/10/19 12/10/19 History lidocaine [Lidoderm] 2 patch TRANSDERMAL DAILY #15 ea 12/12/19 Rx aspirin 81 mg PO DAILY 12/16/19 12/16/19 History fluticasone furoate-vilanterol 1 inh INHALATION DAILY 12/16/19 12/16/19 History [Breo Ellipta] fluticasone propionate [Flonase] 2 spray INTRANASAL DAILY 12/16/19 12/16/19 History topiramate 100 mg PO BID 12/16/19 12/16/19 History Allergies Allergy/AdvReac Type Severity Reaction Status Date / Time iodine Allergy Severe Hives Verified 12/16/19 12:32 latex Allergy Severe Hives Verified 12/16/19 12:32 Contrast Media Allergy Mild Hives Uncoded 12/10/19 16:53 Vital Si
[2019-12-16 13:29] LABS: Hematocrit 33.5 % (37.0-47.0); Hemoglobin 10.4 g/dL (12.0-15.0)
[2019-12-16 13:51] LABS: Troponin I < 0.012 ng/mL (0.000-0.034)
[2019-12-16] MEDS: PEG (High)/E-LYTE SOLN 4,000 ML BTL 4000 ML PO (14:14)
--- NOTE | 2019-12-16 15:00 | PM.IMHP ---
H&P: HPI History of Present Illness Date/Time: 12/16/19 15:00 Chief complaint: Rectal bleeding and syncope. Narrative: Jenni Rondon is a 69-year-old female with GERD, history of GI bleed secondary to peptic ulcers, hypertension, Parkinson's, and several comorbidities who presented to the emergency department earlier today via EMS from home for evaluation of rectal bleeding and a syncopal episode. She woke this morning not feeling well, and has had severe nausea and low chest/epigastric pain which she describes as heavy and squeezing. Sometime in the mid morning she developed cramping in her abdomen with the urge to have a bowel movement, and notes passing both dark stools yet she also reports on occasion bright red blood per rectum. Not long prior to arrival she got up to have another bowel movement and became lightheaded, weak, and she proceeded to lose consciousness. There was no reported head trauma or injury. With further questioning she does admit to taking Aleve on a daily basis in addition to aspirin 325 mg. She also drinks 4 cans of soda per day. Interestingly she denies significant GERD or acid reflux symptoms. She has not had exertional chest pain or shortness of breath. No hematemesis. Weight has remained stable. Review of Systems Review of Systems: Narrative: Tums were reviewed with pertinent positives and negatives as per HPI. No fever, chills, or sweats. No recent cold or flu symptoms. She denies sick contacts exposure to those positive for COVID-19. She is a diabetic but it does not sound as though she follows a diabetic diet nor does she check her glucose at home. She denies blurry vision, polydipsia, and polyuria. She reports dysuria recently. Except as documented, all other systems were reviewed and are negative. [facility] Past Medical History Medical History (Updated 12/16/19 @ 22:43 by Sasha Sales PA-C) Anxiety Chronic anemia Chronic kidney disease, stage 3 Baseline creatinine ranges between 1.2 and 1.50. Chronic obstructive pulmonary disease Depression Gastroesophageal reflux disease GI bleed (~01/2010) Secondary to peptic ulcer. Hyperlipidemia Hypertension Hypothyroidism Kidney stones Obstructive sleep apnea Patient does not use PAP therapy at nighttime. Osteoarthritis Parkinson disease Type 2 diabetes mellitus Surgical History Surgical History (Updated 12/16/19 @ 14:27 by Sasha Sales PA-C) History of bilateral knee arthroplasty History of hysterectomy History of sinus surgery Family History Family History Grandparent Diabetes mellitus Acute myocardial infarction Father Acute myocardial infarction Mother Acute myocardial infarction Social History Social History (Updated 12/16/19 @ 22:33 by Sasha Sales PA-C) Social History: Surrogate decision maker: Fly Rondon, . Code status: Full code. Smoking packs per day: 1 Smoking cigarettes per day: 20.0 Years smoked: 40 Smoking pack-years: 40.00 Smoking status: Current every day smoker Tobacco type: cigarettes Alcohol intake: never Substance use: never Substance use type: does not use Additional living arrangements comments: Resides in [place] with her . Occupation/Education: retired Gender identity (if verbalized by the patient): Female Spiritual care concerns: No Meds Home Medications and Allergies Home Medications Medication Instructions Recorded Confirmed Type albuterol sulfate 2 puff INHALATION DAILY PRN 12/10/19 12/16/19 History atorvastatin 80 mg PO DAILY 12/10/19 12/16/19 History carbidopa-levodopa 3 tablet PO Q8H 12/10/19 12/16/19 History diazepam 10 mg PO TID 12/10/19 12/16/19 History fluoxetine 40 mg PO BID 12/10/19 12/16/19 History hydroxyzine pamoate 25 mg PO QID 12/10/19 12/16/19 History loratadine [Claritin] 10 mg PO DAILY 12/10/19 12/16/19 History losartan 50 mg PO DAILY
[2019-12-16 16:25] LABS: Glucose Point of Care 137 (65-105)
[2019-12-16] MEDS: diazePAM (*CRX) 5 MG TABLET 10 MG PO (16:44)
[2019-12-16] MEDS: FLUoxetine HCL 20 MG CAPSULE 40 MG PO (16:45)
[2019-12-16] MEDS: CARBIDOPA/LEVODOPA 25/100 MG TABLET 3 TABLET PO ×2 (16:45→23:12)
[2019-12-16] MEDS: hydrOXYzine pamoate 25 MG CAPSULE PO ×2 (16:46→21:38)
[2019-12-16] MEDS: OXcarbazepine 300 MG TABLET PO (16:47)
[2019-12-16] MEDS: TOPIRAMATE 100 MG TABLET PO (16:47)
[2019-12-16 17:43] LABS: Hematocrit 31.7 % (37.0-47.0); Hemoglobin 10.1 g/dL (12.0-15.0)
[2019-12-16] MEDS: PANTOPRAZOLE SODIUM IV 40 MG VIAL IV PUSH (21:38)
[2019-12-16 21:50] LABS: Glucose Point of Care 144 (65-105)
[2019-12-17] VITALS (15 sets, daily range): BP systolic 122–148; BP diastolic 48–99; PULSE 61–78; RESP 16–20; TEMP 36.7–36.9; O2SAT 93–100
--- NOTE | 2019-12-17 | ECHO_ITS ---
Patient Info Name: Jenni Rondon Age: 69 years : 1950 Gender: Female Ht: 63 in Wt: 221 lbs BSA: 2.16 m2 HR: 68 bpm BP: 147 / 50 mmHg Heart Rhythm: Sinus Rhythm Technical Quality: Good Exam Date: 12/17/2019 1:39 PM Exam Location: [facility] Patient Status: Inpatient Admit Date: 12/17/2019 Staff Ordering Physician: Sasha Sales PA-C Animal Herder: Galdino Childress, SHANTE, RT Attending Provider: Jessa Mendoza MD Referring Physician: Henrry FIELDS; Exam Type: CA echo dop color flow w con Study Info Indications I10 - Essential (primary) hypertension Complete two-dimensional, color flow and Doppler transthoracic echocardiogram is performed with contrast to opacify the left ventricle and to improve the deliniation of the left ventricle endocardial borders. Summary 1. Left ventricular chamber dimension is normal. 2. Left ventricular systolic function is normal, estimated at 60-65%. 3. There is mildly increased left ventricular wall thickness. 4. The left ventricular diastolic function is grade I diastolic dysfunction. 5. Right ventricular chamber dimension is mildly enlarged. 6. Left atrial chamber dimension is mildly enlarged. 7. There is mild tricuspid valve regurgitation. 8. There is mild pulmonic regurgitation. Left Ventricle Left ventricular chamber dimension is normal. Left ventricular systolic function is normal, estimated at 60-65%. There is mildly increased left ventricular wall thickness. The left ventricular diastolic function is grade I diastolic dysfunction. Right Ventricle Right ventricular chamber dimension is mildly enlarged. Right ventricular systolic function is normal. Left Atria Left atrial chamber dimension is mildly enlarged. Right Atria Right atrial chamber dimension is normal. Atrial Septum Intact interatrial septum visualized by color flow imaging. Aortic Valve The aortic valve is trileaflet. There is mild aortic valve sclerosis. There is no aortic valve stenosis. There is trace aortic valve regurgitation. Pulmonic Valve The pulmonic valve is normal. There is no pulmonic valve stenosis. There is mild pulmonic regurgitation. Mitral Valve The mitral valve has normal leaflets. There is no mitral valve stenosis. There is trace mitral valve regurgitation. Tricuspid Valve The tricuspid valve leaflets are normal. There is no significant tricuspid valve stenosis. There is mild tricuspid valve regurgitation. No pulmonary hypertension, estimated pulmonary arterial systolic pressure is 29 mmHg. Pericardium/Pleural The pericardium appears normal. There is no pericardial effusion. Inferior Vena Cava Normal inferior vena cava with >50% collapse upon inspiration consistent with normal right atrial pressure, 5 mmHg. Aorta The aortic root size at the sinus of Valsalva is normal. The prox ascending aorta size is normal. Left Ventricular Outflow Tract Name Value Normal LVOT 2D LVOT Diameter 1.97 cm LVOT Doppler LVOT Peak Velocity 101.49 cm/s LVOT Peak Gradient 4 mmHg LVOT M
[2019-12-17 00:43] LABS: Hematocrit 30.2 % (37.0-47.0); Hemoglobin 9.5 g/dL (12.0-15.0)
[2019-12-17] MEDS: LACTATED RINGERS 1,000 ML 80 ML IV CONT (04:15)
[2019-12-17] MEDS: CARBIDOPA/LEVODOPA 25/100 MG TABLET 3 TABLET PO ×3 (05:37→20:37)
[2019-12-17] MEDS: ONDANSETRON INJ 4 MG/2 ML VIAL IV PUSH (05:37)
[2019-12-17 06:56] LABS: Basophils Absolute Auto 0.1 K/mm3 (0.0-0.1); Basophils Percent Auto 0.5 % (0.2-1.2); Eosinophils Absolute Auto 0.1 K/mm3 (0-0.3); Eosinophils Percent Auto 1.1 % (0-4.4); Hematocrit 28.1 % (37.0-47.0); Immature Granulocyte Absolute 0.06 K/mm3 (0.00-0.031); Immature Granulocyte Percent A 0.5 % (0-0.5); Lymphocytes Absolute Auto 1.56 K/mm3 (0.9-3.2); Lymphocytes Percent Auto 11.7 % (18.3-44.2); Mean Corpuscular Hemoglobin 28.4 pg (26-34); Mean Corpuscular Volume 88.6 fl (80-100); Mean Platelet Volume 11.3 fl (7.4-10.4); Monocytes Absolute Auto 0.9 K/mm3 (0.1-0.6); Monocytes Percent Auto 7.1 % (2.6-8.5); Neutrophils Absolute Auto 10.6 K/mm3 (1.3-6.7); Neutrophils Percent Auto 79.1 % (45.5-73.1); Platelet Count Result 231 k/mm3 (150-375); Red Blood Count 3.17 M/mm3 (4.2-5.4); Red Cell Distribution Width 15.3 % (11.5-14.5); White Blood Count 13.3 K/mm3 (4.5-10.0)
[2019-12-17 07:06] LABS: Hemoglobin A1C 6.1 % (<5.7)
[2019-12-17 07:21] LABS: Anion Gap 5 mmol/L (8-16); Blood Urea Nitrogen 15 mg/dL (7-17); Calcium 8.7 mg/dL (8.4-10.2); Carbon Dioxide 26 mmol/L (22-30); Chloride 107 mmol/L (98-107); Estimated CRCL calculation 53 ml/min; Estimated Glomerular Filt Rate 55; Glucose 124 mg/dL (65-105); Magnesium 1.8 mg/dL (1.6-2.3); Potassium 3.4 mmol/L (3.4-5.0); Sodium 138 mmol/L (137-145)
[2019-12-17 08:50] LABS: Glucose Point of Care 118 (65-105)
[2019-12-17] MEDS: PANTOPRAZOLE SODIUM IV 40 MG VIAL IV PUSH (08:51)
--- NOTE | 2019-12-17 09:09 | WPDANESEPPF ---
Anes - Initial Pre Proc Eval Procedure: Operation Date: 12/17/19 11:30 Proposed Procedures p Esophagogastroduodenoscopy & Colonoscopy - Ankit Tobar MD Date/Time: 12/17/19 09:09 Surgeon: Jessa Mendoza MD Pre Op Diagnosis: Rectal bleeding and syncope. Patient Data Age: 69 Gender: F Height: 1.6 m Weight: 101.5 kg Last Vital Signs Temp 36.7 C 12/17/19 04:25 Pulse 78 12/17/19 08:48 Resp 16 12/17/19 04:25 BP 147/50 H 12/17/19 04:25 Pulse Ox 98 12/17/19 08:48 Allergies Allergy/AdvReac Type Severity Reaction Status Date / Time iodine Allergy Severe Hives Verified 12/16/19 12:32 latex Allergy Severe Hives Verified 12/16/19 12:32 Contrast Media Allergy Mild Hives Uncoded 12/16/19 14:10 Home Medications Medication Instructions Recorded Confirmed Type albuterol sulfate 2 puff INHALATION DAILY PRN 12/10/19 12/16/19 History atorvastatin 80 mg PO DAILY 12/10/19 12/16/19 History carbidopa-levodopa 3 tablet PO Q8H 12/10/19 12/16/19 History diazepam 10 mg PO TID 12/10/19 12/16/19 History fluoxetine 40 mg PO BID 12/10/19 12/16/19 History hydroxyzine pamoate 25 mg PO QID 12/10/19 12/16/19 History loratadine [Claritin] 10 mg PO DAILY 12/10/19 12/16/19 History losartan 50 mg PO DAILY 12/10/19 12/16/19 History oxcarbazepine 300 mg PO BID 12/10/19 12/16/19 History quetiapine 50 mg PO HS 12/10/19 12/16/19 History lidocaine [Lidoderm] 2 patch TRANSDERMAL DAILY #15 ea 12/12/19 12/16/19 Rx aspirin 81 mg PO DAILY 12/16/19 12/16/19 History fluticasone furoate-vilanterol 1 inh INHALATION DAILY 12/16/19 12/16/19 History [Breo Ellipta] fluticasone propionate [Flonase] 2 spray INTRANASAL DAILY 12/16/19 12/16/19 History topiramate 100 mg PO BID 12/16/19 12/16/19 History Laboratory Tests 12/16/19 12/16/19 12/16/19 09:24 10:13 10:46 WBC RBC Hgb Hct MCV MCH MCHC RDW Plt Count MPV Immature Gran % (Auto) Neut % (Auto) Lymph % (Auto) [place] % (Auto) Eos % (Auto) Baso % (Auto) Lymph # (Auto) [place] # (Auto) Eos # (Auto) Baso # (Auto) Abs Immat Gran (auto) Absolute Neuts (auto) Absolute Nucleated RBC Nucleated RBC % Sodium Potassium Chloride Carbon Dioxide Anion Gap BUN Creatinine Estim Creat Clear Calc Estimated GFR Glucose POC Capillary Glucose Hemoglobin A1c Calcium Magnesium Troponin I < 0.012 ng/mL ng/mL (0.000-0.034) Urine Color Yellow (Yellow) Urine Appearance Cloudy H (Clear) Urine pH 5.0 (5.0-9.0) Ur Specific [place] 1.017 (1.001-1.035) Urine Protein 2+ mg/dL H mg/dL (Negative) Urine Glucose (UA) Negative mg/dL mg/dL (Negative) Urine Ketones Trace mg/dL mg/dL (Negative) Ur Blood (Man) 2+ H (Negative) Urine Nitrate Positive H (Negative) Urine Bilirubin Negative (Negative) Urine Urobilinogen 2.0 mg/dL H mg/dL (<2.0) Leukocyte Esterase Rfl 2+ NUBIA/UL H NUBIA/UL (Negative) Urine RBC 11-20 /hpf H /hpf (0-2) Urine WBC 51-75 /hpf H /hpf Urine WBC Clumps Present /HPF H /HPF (None) Ur Squamous Epith Cells Moderate /hpf H /hpf (Few) Urine Bacteria 2+ /hpf H /hpf Hyaline Casts 30-49 /lpf H /lpf (None) Urine Mucus Few /lpf H /lpf Blood Type A Positive Antibody Screen Negative 12/16/19 12/16/19 12/16/19 13:07 13:07 16:22 WBC RBC Hgb 10.4 g/dL L g/dL (
--- NOTE | 2019-12-17 11:04 | PC.NURSE ---
To GI lab per manny.
[2019-12-17] MEDS: LACTATED RINGERS 1,000 ML 150 ML IV CONT (11:05)
[2019-12-17 11:08] LABS: Glucose Point of Care 108 (65-105)
[2019-12-17 12:53] LABS: Glucose Point of Care 98 (65-105)
--- NOTE | 2019-12-17 13:22 | PC.NURSE ---
Pt returned from GI lab per manny.
[2019-12-17] MEDS: ATORVASTATIN 40 MG TABLET 80 MG PO (13:26)
[2019-12-17] MEDS: LOSARTAN POTASSIUM 50 MG TABLET PO (13:26)
[2019-12-17] MEDS: LORATADINE 10 MG TABLET PO (13:26)
[2019-12-17] MEDS: TOPIRAMATE 100 MG TABLET PO ×2 (13:26→16:20)
[2019-12-17] MEDS: hydrOXYzine pamoate 25 MG CAPSULE PO ×3 (13:26→20:37)
[2019-12-17] MEDS: FLUoxetine HCL 20 MG CAPSULE 40 MG PO ×2 (13:27→16:20)
[2019-12-17] MEDS: FLUTICASONE PROPIONATE 0.05% NA SPR 16 GM BTL (*BKC) 2 SPRAY NASAL (13:27)
[2019-12-17] MEDS: OXcarbazepine 300 MG TABLET PO ×2 (13:27→16:21)
[2019-12-17] MEDS: LIDOCAINE 5% PATCH 2 PATCH TRANSDERM (13:33)
[2019-12-17] MEDS: PERFLUTREN LIPID MICROSPHERES 1.5 ML VIAL DILUTED TO 10 ML TOTAL VOLUME (14:08)
--- NOTE | 2019-12-17 15:02 | PM.IMPN ---
Progress Note: A&P Assessment and Plan (1) Colitis: Code(s): K52.9 - Noninfective gastroenteritis and colitis, unspecified Status: Acute Assessment and Plan: Transverse and sigmoid colon colitis seen on colonoscopy. On Zosyn to cover intraabdominal benjie. Most likely infectious, less likely ischemic. (2) Syncope: Code(s): R55 - Syncope and collapse Status: Acute Assessment and Plan: Likely vasovagal, no arrhythmias on the monitor so far. (3) Anemia: Code(s): D64.9 - Anemia, unspecified Status: Acute Assessment and Plan: Normocytic anemia, probably some acute blood loss due to colitis. Her hematochezia has improved now. (4) Hypertension: Code(s): I10 - Essential (primary) hypertension Status: Acute Assessment and Plan: On losartan, bp is stable. (5) Type 2 diabetes mellitus: Code(s): E11.9 - Type 2 diabetes mellitus without complications Status: Acute Assessment and Plan: On ISS. Subjective Date/time seen: No new complains, she had an endoscopy that showed colitis, she is asking for regular food, denies abdominal pain. 12/17/19 15:02 Review of Systems Review of Systems: All systems reviewed & are unremarkable except as noted in HPI and below Exam Const: General: cooperative and no acute distress Neck: Neck: supple and no JVD Resp: Auscultation: clear to auscultation bilaterally and diminished lung sounds Cardio: Rate: regular rate Rhythm: regular rhythm Heart sounds: S1 normal heart sound present and S2 normal heart sound present GI: GI Palp: Yes abdominal tenderness, Yes Soft to palpation and Yes No hepatosplenomegaly present Other: Mild diffuse tenderness, no guarding. Skin: General skin exam: no rashes or lesions noted Neuro: General: patient oriented x3 and no focal motor deficits Extrem: General: no clubbing, cyanosis or edema Objective Data Vital Signs Vital Signs: Vital Signs - 24 hr 12/16/19 16:00 12/16/19 20:41 12/16/19 21:00 Temperature Pulse Rate 73 72 69 Respiratory Rate Blood Pressure Pulse Oximetry 98 12/16/19 21:43 12/17/19 00:00 12/17/19 04:00 Temperature 98.9 F 98.1 F Pulse Rate 66 72 74 Respiratory Rate 18 16 Blood Pressure 150/73 H 147/50 H Pulse Oximetry 98 100 12/17/19 04:11 12/17/19 04:25 12/17/19 08:00 Temperature 98.1 F 98.1 F Pulse Rate 71 68 67 Respiratory Rate 18 16 Blood Pressure 137/99 H 147/50 H Pulse Oximetry 98 99 12/17/19 08:48 12/17/19 11:08 12/17/19 12:24 Temperature 98.1 F Pulse Rate 78 65 70 Respiratory Rate 20 16 Blood Pressure 148/54 H 122/61 Pulse Oximetry 98 99 99 12/17/19 12:34 12/17/19 12:44 Temperature Pulse Rate 72 67 Respiratory Rate 18 20 Blood Pressure 138/59 L 129/51 L Pulse Oximetry 100 100 Intake/Output Intake/Output: Intake & Output 12/14/19 12/15/19 12/16/19 12/17/19 23:59 23:59 23:59 23:59 Intake Total 1200 1250 Output Total 200 2700 Balance 1000 -1450 Meds/Results Medications: Active Medications Generic Name Dose Route Start Last Admin Trade Name Freq PRN Reason Stop Dose Admin Albuterol 2 puff 12/16/19 14:32 Albuterol Sulfate (*Sp) Aerosol 1 Puff INHALATION DAILY PRN Shortness Of Breath Atorvastatin Calcium 80 mg 12/17/19 09:00 12/17/19 13:26 Atorvastatin 40 Mg Tablet PO 80 mg DAILY RADHA Administration Budesonide/Formoterol Fumarate 2 puff 12/16/19 20:00 12/17/19 08:46 Budesonide/Form 160-4.5 Mcg (*Sp) INHALATION 2 puff Q12HRT RADHA Administration Carbidopa/Levodopa 3 tablet 12/16/19 14:35 12/17/19 13:26 Carbidopa/Levodopa 25/100 Mg Tablet PO 3 tablet Q8HR RADHA Administration Dextrose 12.5 gm 12/16/19 14:31 Dextrose 50% 25 Gm/50 Ml Syringe IV PUSH PRN PRN Hypoglycemia Protocol Diazepam 10 mg 12/17/19 14:47 Diazepam (*Crx) 5 Mg Tablet PO TID PRN Anxi
[2019-12-17 17:40] LABS: Glucose Point of Care 158 (65-105)
[2019-12-17 20:07] LABS: Glucose Point of Care 151 (65-105)
[2019-12-18] VITALS (11 sets, daily range): BP systolic 106–140; BP diastolic 45–54; PULSE 53–80; RESP 18–22; TEMP 36.8–36.9; O2SAT 93–96
[2019-12-18 05:53] LABS: Basophils Percent Auto 0.3 % (0.2-1.2); Eosinophils Absolute Auto 0.4 K/mm3 (0-0.3); Eosinophils Percent Auto 3.5 % (0-4.4); Hematocrit 26.4 % (37.0-47.0); Hemoglobin 8.3 g/dL (12.0-15.0); Immature Granulocyte Absolute 0.06 K/mm3 (0.00-0.031); Immature Granulocyte Percent A 0.5 % (0-0.5); Lymphocytes Absolute Auto 1.72 K/mm3 (0.9-3.2); Lymphocytes Percent Auto 13.9 % (18.3-44.2); Mean Corpuscular HGB Conc 31.4 g/dl (32-36); Mean Corpuscular Hemoglobin 27.8 pg (26-34); Mean Corpuscular Volume 88.3 fl (80-100); Mean Platelet Volume 11.9 fl (7.4-10.4); Monocytes Absolute Auto 0.8 K/mm3 (0.1-0.6); Monocytes Percent Auto 6.8 % (2.6-8.5); Neutrophils Absolute Auto 9.3 K/mm3 (1.3-6.7); Platelet Count Result 214 k/mm3 (150-375); Red Blood Count 2.99 M/mm3 (4.2-5.4); Red Cell Distribution Width 15.4 % (11.5-14.5); White Blood Count 12.3 K/mm3 (4.5-10.0)
[2019-12-18 06:01] LABS: Anion Gap 8 mmol/L (8-16); Blood Urea Nitrogen 12 mg/dL (7-17); Calcium 8.6 mg/dL (8.4-10.2); Carbon Dioxide 24 mmol/L (22-30); Chloride 108 mmol/L (98-107); Estimated CRCL calculation 49 ml/min; Estimated Glomerular Filt Rate 49; Glucose 116 mg/dL (65-105); Potassium 3.4 mmol/L (3.4-5.0); Sodium 140 mmol/L (137-145)
[2019-12-18] MEDS: CARBIDOPA/LEVODOPA 25/100 MG TABLET 3 TABLET PO ×3 (06:03→21:12)
[2019-12-18 07:55] LABS: Glucose Point of Care 99 (65-105)
[2019-12-18] MEDS: ONDANSETRON INJ 4 MG/2 ML VIAL IV PUSH (08:09)
--- NOTE | 2019-12-18 08:14 | WPDANESPN ---
Anes - Prog Note Post-Op Date/Time: 12/18/19 08:14 Cardiovascular status: normal Respiratory status: normal Airway patency: baseline Mental status: baseline Post-Op hydration status: normal Vital Signs: Last Vital Signs Temp 36.9 C 12/18/19 05:53 Pulse 62 12/18/19 05:53 Resp 18 12/18/19 05:53 BP 140/45 L 12/18/19 05:53 Pulse Ox 94 12/18/19 05:53 Pain Score (VAS): 02/20 I/O: Intake & Output 12/17/19 12/18/19 12/18/19 23:59 07:59 15:59 Intake Total 390 200 Balance 390 200 Laboratory Tests 12/18/19 05:14 12/18/19 05:14 12/17/19 12/17/19 12/17/19 06:36 11:06 12:49 WBC RBC Hgb Hct MCV MCH MCHC RDW Plt Count MPV Immature Gran % (Auto) Neut % (Auto) Lymph % (Auto) Lyman % (Auto) Eos % (Auto) Baso % (Auto) Lymph # (Auto) Lyman # (Auto) Eos # (Auto) Baso # (Auto) Abs Immat Gran (auto) Absolute Neuts (auto) Absolute Nucleated RBC Nucleated RBC % Sodium Potassium Chloride Carbon Dioxide Anion Gap BUN Creatinine Estim Creat Clear Calc Estimated GFR Glucose POC Capillary Glucose 118 H 108 98 Calcium 12/17/19 12/17/19 12/18/19 17:38 19:55 05:14 WBC 12.3 H RBC 2.99 L Hgb 8.3 L Hct 26.4 L MCV 88.3 MCH 27.8 MCHC 31.4 L RDW 15.4 H Plt Count 214 MPV 11.9 H Immature Gran % (Auto) 0.5 Neut % (Auto) 75.0 H Lymph % (Auto) 13.9 L Lyman % (Auto) 6.8 Eos % (Auto) 3.5 Baso % (Auto) 0.3 Lymph # (Auto) 1.72 Lyman # (Auto) 0.8 H Eos # (Auto) 0.4 H Baso # (Auto) 0.0 Abs Immat Gran (auto) 0.06 H Absolute Neuts (auto) 9.3 H Absolute Nucleated RBC 0.0 Nucleated RBC % 0.0 Sodium Potassium Chloride Carbon Dioxide Anion Gap BUN Creatinine Estim Creat Clear Calc Estimated GFR Glucose POC Capillary Glucose 158 H 151 H Calcium 12/18/19 12/18/19 05:14 07:31 WBC RBC Hgb Hct MCV MCH MCHC RDW Plt Count MPV Immature Gran % (Auto) Neut % (Auto) Lymph % (Auto) Lyman % (Auto) Eos % (Auto) Baso % (Auto) Lymph # (Auto) Lyman # (Auto) Eos # (Auto) Baso # (Auto) Abs Immat Gran (auto) Absolute Neuts (auto) Absolute Nucleated RBC Nucleated RBC % Sodium 140 Potassium 3.4 Chloride 108 H Carbon Dioxide 24 Anion Gap 8 BUN 12 Creatinine 1.10 H Estim Creat Clear Calc 49 Estimated GFR 49 L Glucose 116 H POC Capillary Glucose 99 Calcium 8.6 Microbiology 12/16/19 10:13 Urine Catheterized Urine Culture - Preliminary Gram negative bacilli isolated Post-procedural complaints: none Patient Feedback: Patient satisfied with anesthetic care.
--- NOTE | 2019-12-18 08:21 | PCPTNOTE ---
Attempted to evaluate patient this morning, however patient c/o increased nausea. RN alerted and provided patient meds. PT will return later this morning to complete physical therapy evaluation as tolerated by patient. Andressa Gutierrez, PT, DPT
[2019-12-18] MEDS: hydrOXYzine pamoate 25 MG CAPSULE PO ×4 (09:15→21:12)
[2019-12-18] MEDS: ATORVASTATIN 40 MG TABLET 80 MG PO (09:15)
[2019-12-18] MEDS: FLUoxetine HCL 20 MG CAPSULE 40 MG PO ×2 (09:15→17:35)
[2019-12-18] MEDS: LOSARTAN POTASSIUM 50 MG TABLET PO (09:16)
[2019-12-18] MEDS: OXcarbazepine 300 MG TABLET PO ×2 (09:16→17:34)
[2019-12-18] MEDS: TOPIRAMATE 100 MG TABLET PO ×2 (09:16→17:34)
[2019-12-18] MEDS: LORATADINE 10 MG TABLET PO (09:16)
--- NOTE | 2019-12-18 09:57 | WPDGIPROGNO ---
Progress Note: A&P Additional Plan Patient feels much better today. No ongoing bleeding. Tolerating diet. She denies abdominal pain. Physical exam reveals patient to be alert. Vital signs stable. Comfortable at rest. HEENT exam unremarkable. Lungs are clear. Heart without murmur. Abdomen bowel sounds present soft nontender with no organomegaly. Labs reveal hemoglobin 8.3, hematocrit 26.4 which appears stable. Impression 1. Transverse and descending colitis. Most consistent with infectious etiology although ischemic etiology is quite possible. Plan is for empiric antibiotic therapy advanced diet as tolerated. Discharge if no pain-free and hemoglobin stable. Cultures are currently pending at this time. Outpatient follow-up if pain or bleeding persists or recurs. Subjective Date/time seen: 12/18/19 09:57 Objective Data Vital Signs Vital Signs: Vital Signs - 24 hr 12/17/19 11:08 12/17/19 12:24 12/17/19 12:34 Temperature 98.1 F Pulse Rate 65 70 72 Respiratory Rate 20 16 18 Blood Pressure 148/54 H 122/61 138/59 L Pulse Oximetry 99 99 100 12/17/19 12:44 12/17/19 14:00 12/17/19 16:00 Temperature 98.5 F Pulse Rate 67 68 66 Respiratory Rate 20 16 Blood Pressure 129/51 L 132/56 L Pulse Oximetry 100 96 12/17/19 20:00 12/17/19 20:27 12/17/19 20:42 Temperature 98.1 F Pulse Rate 62 61 62 Respiratory Rate 16 18 16 Blood Pressure 132/48 L Pulse Oximetry 97 93 97 12/18/19 00:00 12/18/19 04:36 12/18/19 05:53 Temperature 98.5 F Pulse Rate 62 62 62 Respiratory Rate 18 Blood Pressure 140/45 L Pulse Oximetry 94 Intake/Output Intake/Output: Intake & Output 12/15/19 12/16/19 12/17/19 12/18/19 23:59 23:59 23:59 23:59 Intake Total 1200 2090 440 Output Total 200 2700 Balance 1000 -610 440 Meds/Results Medications: Active Medications Generic Name Dose Route Start Last Admin Trade Name Freq PRN Reason Stop Dose Admin Albuterol 2 puff 12/16/19 14:32 Albuterol Sulfate (*Sp) Aerosol 1 Puff INHALATION DAILY PRN Shortness Of Breath Atorvastatin Calcium 80 mg 12/17/19 09:00 12/18/19 09:15 Atorvastatin 40 Mg Tablet PO 80 mg DAILY RADHA Administration Budesonide/Formoterol Fumarate 2 puff 12/16/19 20:00 12/18/19 08:23 Budesonide/Form 160-4.5 Mcg (*Sp) INHALATION 2 puff Q12HRT RADHA Administration Carbidopa/Levodopa 3 tablet 12/16/19 14:35 12/18/19 06:03 Carbidopa/Levodopa 25/100 Mg Tablet PO 3 tablet Q8HR RADHA Administration Dextrose 12.5 gm 12/16/19 14:31 Dextrose 50% 25 Gm/50 Ml Syringe IV PUSH PRN PRN Hypoglycemia Protocol Diazepam 10 mg 12/17/19 14:47 Diazepam (*Crx) 5 Mg Tablet PO TID PRN Anxiety Fluoxetine HCl 40 mg 12/16/19 17:00 12/18/19 09:15 Fluoxetine Hcl 20 Mg Capsule PO 40 mg BID RADHA Administration Fluticasone Propionate 2 spray 12/17/19 09:00 12/18/19 09:16 Fluticasone Propionate 0.05% Na Spr 16 Gm Btl (*Bkc) NASAL Not Given DAILY RADHA Glucagon 1 mg 12/16/19 14:31 Glucagon For Inj 1 Mg Vial IM PRN PRN Hypoglycemia Protocol Glucose 15 gm 12/16/19 14:31 Glucose Oral Gel 15 Gm Of Glucse In 37.5 Gm Tube PO PRN PRN Hypoglycemia Protocol Hydroxyzine Pamoate 25 mg 12/16/19 17:00 12/18/19 09:15 Hydroxyzine Pamoate 25 Mg Capsule PO 25 mg QID RADHA Administration Dextrose 1,000 mls @ 100 mls/hr 12/16/19 14:31 Dextrose 5% 1,000 Ml IVPB PRN PRN Hypoglycemia Protocol Insulin Aspart 2 - 5 units 12/16/19 17:00 12/18/19 09:14 Insulin Aspart (*Bkc) 100 Units/Ml SUB-Q Not Given TIDWM RADHA Protocol Lidocaine 2 patch 12/17/19 09:00 12/17/19 13:33 Lidocaine 5% Patch TRANSDERM 2 patch DAILY RADHA Administration Loratadine 10 mg 12/17/19 09:00 12/18/19 09:16 Loratadine 10 Mg Tablet PO 10 mg DAILY RADHA Administration Losartan Potassium 50 mg 12/17/19 09:00
[2019-12-18 11:49] LABS: Glucose Point of Care 125 (65-105)
[2019-12-18] MEDS: HYDROcodone/acetaminophen (*CRX) 5-325 MG TABLET 1 TAB PO ×3 (13:43→21:47)
[2019-12-18] MEDS: LIDOCAINE 5% PATCH 2 PATCH TRANSDERM (15:24)
--- NOTE | 2019-12-18 16:56 | PM.IMPN ---
Progress Note: A&P Assessment and Plan (1) Colitis: Code(s): K52.9 - Noninfective gastroenteritis and colitis, unspecified Status: Acute Assessment and Plan: Transverse and sigmoid colon colitis seen on colonoscopy. On Zosyn to cover intraabdominal benjie. Most likely infectious, less likely ischemic. Still having intermittent pain. Will send C. diff toxin. (2) Anemia: Code(s): D64.9 - Anemia, unspecified Status: Acute Assessment and Plan: Normocytic anemia, probably some acute blood loss due to colitis. Still having blood in the stool but Hb is stable above 7. (3) Leukocytosis: Code(s): D72.829 - Elevated white blood cell count, unspecified Status: Acute Assessment and Plan: Likely secondary to the colitis, her white count is slowly improving. (4) Syncope: Code(s): R55 - Syncope and collapse Status: Acute Assessment and Plan: Likely vasovagal or situational due to severe pain, no arrhythmias on the monitor so far. (5) Hypertension: Code(s): I10 - Essential (primary) hypertension Status: Acute Assessment and Plan: On losartan, bp is stable. (6) Type 2 diabetes mellitus: Code(s): E11.9 - Type 2 diabetes mellitus without complications Status: Acute Assessment and Plan: On ISS. Subjective Date/time seen: Complaining of abdominal pain, still having stool with mucus and blood. 12/18/19 16:56 Review of Systems Review of Systems: All systems reviewed & are unremarkable except as noted in HPI and below Exam Const: General: cooperative and no acute distress Orientation/consciousness: patient oriented x3 Neck: Neck: supple and no JVD Resp: Auscultation: clear to auscultation bilaterally and diminished lung sounds Cardio: Rate: regular rate Rhythm: regular rhythm Heart sounds: S1 normal heart sound present and S2 normal heart sound present GI: Other: Mild diffuse tenderness, no guarding. Skin: General skin exam: no rashes or lesions noted Neuro: General: patient oriented x3 and no focal motor deficits Extrem: General: no clubbing, cyanosis or edema Objective Data Vital Signs Vital Signs: Vital Signs - 24 hr 12/17/19 20:00 12/17/19 20:27 12/17/19 20:42 Temperature 98.1 F Pulse Rate 62 61 62 Respiratory Rate 16 18 16 Blood Pressure 132/48 L Pulse Oximetry 97 93 97 12/18/19 00:00 12/18/19 04:36 12/18/19 05:53 Temperature 98.5 F Pulse Rate 62 62 62 Respiratory Rate 18 Blood Pressure 140/45 L Pulse Oximetry 94 12/18/19 08:00 12/18/19 12:00 12/18/19 14:00 Temperature 98.5 F Pulse Rate 72 65 80 Respiratory Rate 22 H Blood Pressure 106/54 L Pulse Oximetry 96 Intake/Output Intake/Output: Intake & Output 12/15/19 12/16/19 12/17/19 12/18/19 23:59 23:59 23:59 23:59 Intake Total 1200 2090 680 Output Total 200 2700 Balance 1000 -610 680 Meds/Results Medications: Active Medications Generic Name Dose Route Start Last Admin Trade Name Freq PRN Reason Stop Dose Admin Hydrocodone Bitart/Acetaminophen 1 tab 12/18/19 13:14 12/18/19 13:43 Hydrocodone/Acetaminophen (*Crx) 5-325 Mg Tablet PO 1 tab Q4H PRN Administration Pain Rated 7-10 Albuterol 2 puff 12/16/19 14:32 Albuterol Sulfate (*Sp) Aerosol 1 Puff INHALATION DAILY PRN Shortness Of Breath Atorvastatin Calcium 80 mg 12/17/19 09:00 12/18/19 09:15 Atorvastatin 40 Mg Tablet PO 80 mg DAILY RADHA Administration Budesonide/Formoterol Fumarate 2 puff 12/16/19 20:00 12/18/19 08:23 Budesonide/Form 160-4.5 Mcg (*Sp) INHALATION 2 puff Q12HRT RADHA Administration Carbidopa/Levodopa 3 tablet 12/16/19 14:35 12/18/19 15:02 Carbidopa/Levodopa 25/100 Mg Tablet PO 3 tablet Q8HR RADHA Administration Dextrose 12.5 gm 12/16/19 14:31 Dextrose 50% 25 Gm/50 Ml Syringe IV PUSH PRN PRN Hypoglycemia
[2019-12-18 21:03] LABS: Glucose Point of Care 125 (65-105)
[2019-12-19] VITALS (10 sets, daily range): BP systolic 108–126; BP diastolic 44–54; PULSE 55–72; RESP 16–20; TEMP 36.1–36.9; O2SAT 93–99
[2019-12-19] MEDS: HYDROcodone/acetaminophen (*CRX) 5-325 MG TABLET 1 TAB PO ×4 (01:47→17:35)
[2019-12-19] MEDS: CIPROFLOXACIN 400 MG/D5W 200ML 200 ML 200 MG IVPB ×2 (01:58→13:29)
[2019-12-19 02:49] LABS: Glucose Point of Care 125 (65-105)
[2019-12-19] MEDS: metroNIDAZOLE 500 MG/ISO 100ML 500 MG/100 ML BAG 100 MG IVPB ×3 (03:01→18:44)
[2019-12-19] MEDS: CARBIDOPA/LEVODOPA 25/100 MG TABLET 3 TABLET PO ×3 (05:35→21:13)
[2019-12-19 07:32] LABS: Glucose Point of Care 117 (65-105)
[2019-12-19 08:18] LABS: Anion Gap 9 mmol/L (8-16); Blood Urea Nitrogen 15 mg/dL (7-17); Calcium 8.7 mg/dL (8.4-10.2); Carbon Dioxide 24 mmol/L (22-30); Chloride 107 mmol/L (98-107); Estimated CRCL calculation 49 ml/min; Estimated Glomerular Filt Rate 49; Glucose 117 mg/dL (65-105); Potassium 3.6 mmol/L (3.4-5.0); Sodium 140 mmol/L (137-145)
[2019-12-19 08:21] LABS: Basophils Absolute Auto 0.1 K/mm3 (0.0-0.1); Basophils Percent Auto 0.6 % (0.2-1.2); Eosinophils Absolute Auto 0.6 K/mm3 (0-0.3); Eosinophils Percent Auto 6.4 % (0-4.4); Hematocrit 29.6 % (37.0-47.0); Immature Granulocyte Absolute 0.05 K/mm3 (0.00-0.031); Immature Granulocyte Percent A 0.6 % (0-0.5); Lymphocytes Absolute Auto 1.66 K/mm3 (0.9-3.2); Lymphocytes Percent Auto 18.6 % (18.3-44.2); Mean Corpuscular HGB Conc 30.4 g/dl (32-36); Mean Corpuscular Volume 92.2 fl (80-100); Mean Platelet Volume 11.6 fl (7.4-10.4); Monocytes Absolute Auto 0.7 K/mm3 (0.1-0.6); Monocytes Percent Auto 7.4 % (2.6-8.5); Neutrophils Absolute Auto 5.9 K/mm3 (1.3-6.7); Neutrophils Percent Auto 66.4 % (45.5-73.1); Platelet Count Result 223 k/mm3 (150-375); Red Blood Count 3.21 M/mm3 (4.2-5.4); Red Cell Distribution Width 15.7 % (11.5-14.5); White Blood Count 8.9 K/mm3 (4.5-10.0)
[2019-12-19] MEDS: LIDOCAINE 5% PATCH 2 PATCH TRANSDERM (09:22)
[2019-12-19] MEDS: TOPIRAMATE 100 MG TABLET PO ×2 (09:23→17:37)
[2019-12-19] MEDS: ATORVASTATIN 40 MG TABLET 80 MG PO (09:23)
[2019-12-19] MEDS: LORATADINE 10 MG TABLET PO (09:23)
[2019-12-19] MEDS: FLUoxetine HCL 20 MG CAPSULE 40 MG PO ×2 (09:23→17:35)
[2019-12-19] MEDS: LOSARTAN POTASSIUM 50 MG TABLET PO (09:23)
[2019-12-19] MEDS: OXcarbazepine 300 MG TABLET PO ×2 (09:23→17:36)
[2019-12-19] MEDS: hydrOXYzine pamoate 25 MG CAPSULE PO ×4 (09:24→21:12)
[2019-12-19] MEDS: FLUTICASONE PROPIONATE 0.05% NA SPR 16 GM BTL (*BKC) 2 SPRAY NASAL (09:25)
[2019-12-19] MEDS: ONDANSETRON INJ 4 MG/2 ML VIAL IV PUSH ×2 (10:06→18:24)
[2019-12-19 11:47] LABS: Glucose Point of Care 115 (65-105)
--- NOTE | 2019-12-19 13:20 | PM.IMPN ---
Progress Note: A&P Assessment and Plan (1) Colitis: Code(s): K52.9 - Noninfective gastroenteritis and colitis, unspecified Status: Acute Assessment and Plan: Transverse and sigmoid colon colitis seen on colonoscopy. On Zosyn to cover intraabdominal benjie. Most likely infectious, less likely ischemic. Still having intermittent pain. Will send C. diff toxin. 12/19/19 13:20 patient is 69-year-old female who presented emergency department with a complaint of abdominal pain and rectal bleeding patient had a CT scan of abdomen did not show any pathology to attribute to her symptoms patient is seen by GI and patient had a EGD which was essentially normal, patient had a colonoscopy showed patient is a colitis tranverse colon and rectosigmoid, also concerning for bleeding, GI suspect patient has a colitis most likely infectious and patient is being treated with Flagyl and Cipro, patient had been tolerating regular diet however today patient is complaining abdominal pain and nausea, will switch her over to full liquid and monitor, patient still complains blood in her stool however her hemoglobin is stable. patient is also found to UTI urine culture is growing E coli sensitive to Cipro will continue, patient is clinically stable will continue to monitor and further recommendation to follow. (2) Anemia: Code(s): D64.9 - Anemia, unspecified Status: Acute Assessment and Plan: Normocytic anemia, probably some acute blood loss due to colitis. Still having blood in the stool but Hb is stable above 7. (3) Leukocytosis: Code(s): D72.829 - Elevated white blood cell count, unspecified Status: Acute Assessment and Plan: Likely secondary to the colitis, her white count is slowly improving. (4) Syncope: Code(s): R55 - Syncope and collapse Status: Acute Assessment and Plan: Likely vasovagal or situational due to severe pain, no arrhythmias on the monitor so far. (5) Hypertension: Code(s): I10 - Essential (primary) hypertension Status: Acute Assessment and Plan: On losartan, bp is stable. (6) Type 2 diabetes mellitus: Code(s): E11.9 - Type 2 diabetes mellitus without complications Status: Acute Assessment and Plan: On ISS. Additional Plan The patient has been admitted to the hospitalist service for further evaluation of GI bleed, with both melena and hematochezia, as well as syncope. I suspect her syncopal episode was likely vasovagal in etiology but will check orthostatic vital signs. Trend hemoglobin and hematocrit, and transfuse if indicated. Dr. Tobar has seen her in consultation is input is appreciated. As she has been experiencing dysuria will continue empiric antibiotics, pending urine culture. Her blood pressures were reviewed and they are not at goal, ranging in the 150s to 160 systolic. She did not take her antihypertensives today, however. Her home medications will be reviewed resumed as appropriate. Initiate sliding scale insulin, Accu-Cheks, and hypoglycemic protocol. Check hemoglobin A1c. Subjective Date/time seen: 12/19/19 13:20 patient is 69-year-old female who presented emergency department with a complaint of abdominal pain and rectal bleeding patient had a CT scan of abdomen did not show any pathology to attribute to her symptoms patient is seen by GI and patient had a EGD which was essentially normal, patient had a colonoscopy showed patient is a colitis tranverse colon and rectosigmoid, also concerning for bleeding, GI suspect patient has a colitis most likely infectious and patient is being treated with Flagyl and Cipro, patient had been tolerating regular diet however today patient is complaining abdominal pain and nausea, will switch her over to full liquid and monitor, patient still complains blood in her stool however her hemoglobin is stable. patient is also found to UTI urine culture
[2019-12-19] MEDS: diazePAM (*CRX) 5 MG TABLET 10 MG PO (13:29)
[2019-12-19 17:27] LABS: Glucose Point of Care 113 (65-105)
[2019-12-19 21:41] LABS: Glucose Point of Care 136 (65-105)
[2019-12-20] VITALS (13 sets, daily range): BP systolic 111–138; BP diastolic 42–66; PULSE 57–85; RESP 15–24; TEMP 36.4–37.1; O2SAT 94–100
[2019-12-20] MEDS: HYDROcodone/acetaminophen (*CRX) 5-325 MG TABLET 1 TAB PO ×4 (00:56→20:00)
[2019-12-20] MEDS: CIPROFLOXACIN 400 MG/D5W 200ML 200 ML 200 MG IVPB ×2 (01:00→14:15)
[2019-12-20] MEDS: metroNIDAZOLE 500 MG/ISO 100ML 500 MG/100 ML BAG 100 MG IVPB ×3 (02:02→18:48)
[2019-12-20] MEDS: CARBIDOPA/LEVODOPA 25/100 MG TABLET 3 TABLET PO ×3 (05:22→20:01)
[2019-12-20 06:16] LABS: Hematocrit 26.6 % (37.0-47.0); Hemoglobin 8.2 g/dL (12.0-15.0); Mean Corpuscular HGB Conc 30.8 g/dl (32-36); Mean Corpuscular Hemoglobin 28.2 pg (26-34); Mean Corpuscular Volume 91.4 fl (80-100); Mean Platelet Volume 12.1 fl (7.4-10.4); Platelet Count Result 214 k/mm3 (150-375); Red Blood Count 2.91 M/mm3 (4.2-5.4); Red Cell Distribution Width 15.4 % (11.5-14.5); White Blood Count 6.6 K/mm3 (4.5-10.0)
[2019-12-20 06:25] LABS: Albumin Level 3.2 g/dL (3.5-5.1); Alkaline Phosphatase 105 U/L (38-126); Anion Gap 9 mmol/L (8-16); Aspartate Amino Transferase 17 U/L (14-36); Bilirubin,Total 0.1 mg/dL (0.2-1.3); Blood Urea Nitrogen 10 mg/dL (7-17); Calcium 8.4 mg/dL (8.4-10.2); Carbon Dioxide 24 mmol/L (22-30); Chloride 105 mmol/L (98-107); Estimated CRCL calculation 50 ml/min; Estimated Glomerular Filt Rate 49; Glucose 96 mg/dL (65-105); Magnesium 1.9 mg/dL (1.6-2.3); Potassium 3.2 mmol/L (3.4-5.0); Sodium 138 mmol/L (137-145)
[2019-12-20 07:39] LABS: Glucose Point of Care 103 (65-105)
[2019-12-20 07:46] LABS: Alanine Aminotransferase < 4 U/L (4-35)
--- NOTE | 2019-12-20 08:46 | ECG_ITS ---
Measurements Intervals [place] Rate: 67 P: AL: 0 QRS: 5 QRSD: 95 T: 30 QT: 415 QTc: 439 Interpretive Statements SINUS OR ECTOPIC ATRIAL RHYTHM BASELINE ARTIFACT- I, II, III, AVR, AVL, AVF BORDERLINE ECG Electronically Signed On 12-20-2019 17:55:34 NETWORK ARCHITECT by Calin Fernandez D.O.
[2019-12-20] MEDS: NITROGLYCERIN SL 0.4 MG TABLET SUBLINGUAL (08:47)
[2019-12-20] MEDS: diazePAM (*CRX) 5 MG TABLET 10 MG PO (08:55)
[2019-12-20] MEDS: OXcarbazepine 300 MG TABLET PO ×2 (08:57→17:31)
[2019-12-20] MEDS: POTASSIUM CHLORIDE 20 MEQ TABLET 40 MEQ PO (08:57)
[2019-12-20] MEDS: FLUoxetine HCL 20 MG CAPSULE 40 MG PO ×2 (08:57→17:31)
[2019-12-20] MEDS: TOPIRAMATE 100 MG TABLET PO ×2 (08:57→17:31)
[2019-12-20] MEDS: hydrOXYzine pamoate 25 MG CAPSULE PO ×4 (08:57→20:00)
[2019-12-20] MEDS: LOSARTAN POTASSIUM 50 MG TABLET PO (08:57)
[2019-12-20] MEDS: ATORVASTATIN 40 MG TABLET 80 MG PO (08:57)
[2019-12-20] MEDS: LIDOCAINE 5% PATCH 2 PATCH TRANSDERM (08:57)
[2019-12-20] MEDS: LORATADINE 10 MG TABLET PO (08:57)
[2019-12-20] MEDS: FLUTICASONE PROPIONATE 0.05% NA SPR 16 GM BTL (*BKC) 2 SPRAY NASAL (08:58)
[2019-12-20 09:30] LABS: Troponin I < 0.012 ng/mL (0.000-0.034)
[2019-12-20 11:57] LABS: Glucose Point of Care 98 (65-105)
--- NOTE | 2019-12-20 12:08 | PM.IMPN ---
Progress Note: A&P Assessment and Plan (1) Colitis: Code(s): K52.9 - Noninfective gastroenteritis and colitis, unspecified Status: Acute Assessment and Plan: Transverse and sigmoid colon colitis seen on colonoscopy. On Zosyn to cover intraabdominal benjie. Most likely infectious, less likely ischemic. Still having intermittent pain. Will send C. diff toxin. 12/20/19 12:08 patient is 69-year-old female who presented emergency department with a complaint of abdominal pain and rectal bleeding patient had a CT scan of abdomen did not show any pathology to attribute to her symptoms patient is seen by GI and patient had a EGD which was essentially normal, patient had a colonoscopy showed patient is a colitis tranverse colon and rectosigmoid, also concerning for bleeding, GI suspect patient has a colitis most likely infectious and patient is being treated with Flagyl and Cipro, patient had been tolerating regular diet however on 12/18 patient was complaining abdominal pain and nausea, switched her over to full liquid and monitor, patient still complains blood in her stool however her hemoglobin is stable. patient is also found to UTI urine culture is growing E coli sensitive to Cipro will continue. today 12/19 today patient had a complaint of chest pain, which she attributed to anxiety and stress as her sister is dying and her daughter is going through divorce, patient was given her anxiety medication which did improve her symptoms to further evaluate patient had EKG and tropes essentially normal, patient is able to tolerate full liquid diet somewhat however she is still complains of nausea little bit, will continue to monitor and further recommendation to follow. (2) Anemia: Code(s): D64.9 - Anemia, unspecified Status: Acute Assessment and Plan: Normocytic anemia, probably some acute blood loss due to colitis. Still having blood in the stool but Hb is stable above 7. (3) Leukocytosis: Code(s): D72.829 - Elevated white blood cell count, unspecified Status: Acute Assessment and Plan: Likely secondary to the colitis, her white count is slowly improving. (4) Syncope: Code(s): R55 - Syncope and collapse Status: Acute Assessment and Plan: Likely vasovagal or situational due to severe pain, no arrhythmias on the monitor so far. (5) Hypertension: Code(s): I10 - Essential (primary) hypertension Status: Acute Assessment and Plan: On losartan, bp is stable. (6) Type 2 diabetes mellitus: Code(s): E11.9 - Type 2 diabetes mellitus without complications Status: Acute Assessment and Plan: On ISS. Subjective Date/time seen: 12/20/19 12:08 patient is 69-year-old female who presented emergency department with a complaint of abdominal pain and rectal bleeding patient had a CT scan of abdomen did not show any pathology to attribute to her symptoms patient is seen by GI and patient had a EGD which was essentially normal, patient had a colonoscopy showed patient is a colitis tranverse colon and rectosigmoid, also concerning for bleeding, GI suspect patient has a colitis most likely infectious and patient is being treated with Flagyl and Cipro, patient had been tolerating regular diet however on 12/18 patient was complaining abdominal pain and nausea, switched her over to full liquid and monitor, patient still complains blood in her stool however her hemoglobin is stable. patient is also found to UTI urine culture is growing E coli sensitive to Cipro will continue. today 12/19 today patient had a complaint of chest pain, which she attributed to anxiety and stress as her sister is dying and her daughter is going through divorce, patient was given her anxiety medication which did improve her symptoms to further evaluate patient had EKG and tropes essentially normal, patient is able to tolerate full liquid diet some
[2019-12-20] MEDS: MICONAZOLE NITRATE 2% VAGINAL CREAM 45 GM TUBE 1 APPFUL VAGINAL (13:05)
[2019-12-20 16:36] LABS: Glucose Point of Care 94 (65-105)
[2019-12-20 21:56] LABS: Glucose Point of Care 136 (65-105)
[2019-12-21 00:28] VITALS: PULSE 63
[2019-12-21] MEDS: CIPROFLOXACIN 400 MG/D5W 200ML 200 ML 150 MG IVPB (01:18)
[2019-12-21] MEDS: metroNIDAZOLE 500 MG/ISO 100ML 500 MG/100 ML BAG 100 MG IVPB (03:03)
[2019-12-21 04:14] VITALS: PULSE 59
[2019-12-21 06:00] VITALS: BP 136/43; PULSE 66; RESP 18; TEMP 36.6; O2SAT 97
[2019-12-21] MEDS: CARBIDOPA/LEVODOPA 25/100 MG TABLET 3 TABLET PO (06:00)
[2019-12-21 07:16] LABS: Hemoglobin 8.3 g/dL (12.0-15.0); Mean Corpuscular HGB Conc 30.7 g/dl (32-36); Mean Corpuscular Hemoglobin 27.4 pg (26-34); Mean Corpuscular Volume 89.1 fl (80-100); Platelet Count Result 222 k/mm3 (150-375); Red Blood Count 3.03 M/mm3 (4.2-5.4); Red Cell Distribution Width 15.5 % (11.5-14.5); White Blood Count 6.9 K/mm3 (4.5-10.0)
[2019-12-21 07:28] LABS: Albumin Level 3.2 g/dL (3.5-5.1); Alkaline Phosphatase 116 U/L (38-126); Anion Gap 7 mmol/L (8-16); Aspartate Amino Transferase 13 U/L (14-36); Bilirubin,Total 0.2 mg/dL (0.2-1.3); Blood Urea Nitrogen 8 mg/dL (7-17); Calcium 8.5 mg/dL (8.4-10.2); Carbon Dioxide 23 mmol/L (22-30); Chloride 107 mmol/L (98-107); Estimated CRCL calculation 51 ml/min; Estimated Glomerular Filt Rate 49; Glucose 112 mg/dL (65-105); Magnesium 1.9 mg/dL (1.6-2.3); Potassium 4.1 mmol/L (3.4-5.0); Sodium 137 mmol/L (137-145)
[2019-12-21 07:31] LABS: Alanine Aminotransferase < 6 U/L (4-35)
[2019-12-21 07:34] LABS: Glucose Point of Care 124 (65-105)
[2019-12-21] MEDS: FLUTICASONE PROPIONATE 0.05% NA SPR 16 GM BTL (*BKC) 2 SPRAY NASAL (08:37)
[2019-12-21] MEDS: MICONAZOLE NITRATE 2% VAGINAL CREAM 45 GM TUBE 1 APPFUL VAGINAL (08:38)
[2019-12-21] MEDS: FLUoxetine HCL 20 MG CAPSULE 40 MG PO (08:38)
[2019-12-21] MEDS: LORATADINE 10 MG TABLET PO (08:38)
[2019-12-21] MEDS: ATORVASTATIN 40 MG TABLET 80 MG PO (08:38)
[2019-12-21] MEDS: hydrOXYzine pamoate 25 MG CAPSULE PO (08:38)
[2019-12-21] MEDS: OXcarbazepine 300 MG TABLET PO (08:39)
[2019-12-21] MEDS: TOPIRAMATE 100 MG TABLET PO (08:39)
[2019-12-21] MEDS: LOSARTAN POTASSIUM 50 MG TABLET PO (08:39)
--- NOTE | 2019-12-21 09:13 | PM.DS ---
DS: Admitting Diagnosis Admitting Diagnosis Admitting Diagnosis: GI Bleed, ABD pain, Syncope DS: Discharge Diagnosis Discharge Diagnosis (1) Colitis: Code(s): K52.9 - Noninfective gastroenteritis and colitis, unspecified Status: Acute Assessment and Plan: Transverse and sigmoid colon colitis seen on colonoscopy. On Zosyn to cover intraabdominal benjie. Most likely infectious, less likely ischemic. Still having intermittent pain. Will send C. diff toxin. 12/20/19 12:08 patient is 69-year-old female who presented emergency department with a complaint of abdominal pain and rectal bleeding patient had a CT scan of abdomen did not show any pathology to attribute to her symptoms patient is seen by GI and patient had a EGD which was essentially normal, patient had a colonoscopy showed patient is a colitis tranverse colon and rectosigmoid, also concerning for bleeding, GI suspect patient has a colitis most likely infectious and patient is being treated with Flagyl and Cipro, patient had been tolerating regular diet however on 12/18 patient was complaining abdominal pain and nausea, switched her over to full liquid and monitor, patient still complains blood in her stool however her hemoglobin is stable. patient is also found to UTI urine culture is growing E coli sensitive to Cipro will continue. today 12/19 today patient had a complaint of chest pain, which she attributed to anxiety and stress as her sister is dying and her daughter is going through divorce, patient was given her anxiety medication which did improve her symptoms to further evaluate patient had EKG and tropes essentially normal, patient is able to tolerate full liquid diet somewhat however she is still complains of nausea little bit, will continue to monitor and further recommendation to follow. (2) Anemia: Code(s): D64.9 - Anemia, unspecified Status: Acute Assessment and Plan: Normocytic anemia, probably some acute blood loss due to colitis. Still having blood in the stool but Hb is stable above 7. (3) Leukocytosis: Code(s): D72.829 - Elevated white blood cell count, unspecified Status: Acute Assessment and Plan: Likely secondary to the colitis, her white count is slowly improving. (4) Syncope: Code(s): R55 - Syncope and collapse Status: Acute Assessment and Plan: Likely vasovagal or situational due to severe pain, no arrhythmias on the monitor so far. (5) Hypertension: Code(s): I10 - Essential (primary) hypertension Status: Acute Assessment and Plan: On losartan, bp is stable. (6) Type 2 diabetes mellitus: Code(s): E11.9 - Type 2 diabetes mellitus without complications Status: Acute Assessment and Plan: On ISS. DS: Summary Hospital Course Reason for hospitalization: Chief complaint: Rectal bleeding and syncope. Narrative: Jenni Rondon is a 69-year-old female with GERD, history of GI bleed secondary to peptic ulcers, hypertension, Parkinson's, and several comorbidities who presented to the emergency department earlier today via EMS from home for evaluation of rectal bleeding and a syncopal episode. She woke this morning not feeling well, and has had severe nausea and low chest/epigastric pain which she describes as heavy and squeezing. Sometime in the mid morning she developed cramping in her abdomen with the urge to have a bowel movement, and notes passing both dark stools yet she also reports on occasion bright red blood per rectum. Not long prior to arrival she got up to have another bowel movement and became lightheaded, weak, and she proceeded to lose consciousness. There was no reported head trauma or injury. With further questioning she does admit to taking Aleve on a daily basis in addition to aspirin 325 mg. She also drinks 4 cans of soda per day. Interestingly she denies significant GERD or acid reflux symptoms.
[2019-12-21 09:37] VITALS: O2SAT 93
== END 2019-12-21 10:28 | disposition home or self-care (01) | DRG 378 ==
LOC: ANHED 07:18 → ANH2MED 11:26
PROVIDERS: Emergency Medicine; Hospitalist; Internal Medicine Gastroenterology; Physician Assistant; Admitting Provider Family Medicine; Emergency Provider Emergency Medicine; Visit Provider Family Medicine
PROC: 0DJ08ZZ Inspection of Upper Intestinal Tract, Via Natural or Artificial Opening Endoscopic (ICD-10-PCS; CPT 43235; principal; 2019-12-17 11:30)
DX: K92.2 Gastrointestinal hemorrhage, unspecified (principal); N39.0 Urinary tract infection, site not specified; A09 Infectious gastroenteritis and colitis, unspecified; D62 Acute posthemorrhagic anemia; G20 Parkinson's disease; E78.5 Hyperlipidemia, unspecified; G47.33 Obstructive sleep apnea (adult) (pediatric); I12.9 Hypertensive chronic kidney disease with stage 1 through stage 4 chronic kidney disease, or unspecified chronic kidney disease; E11.22 Type 2 diabetes mellitus with diabetic chronic kidney disease; N18.30 Chronic kidney disease, stage 3 unspecified; B96.20 Unspecified Escherichia coli [E. coli] as the cause of diseases classified elsewhere; Z23 Encounter for immunization
CPT/HCPCS: 36415; 51701; 70450; 71045; 74176; 78580; 80048; 80053; 81001; 83036; 83735; 84484; 85014; 85018; 85025; 85027; 85380; 85610; 85730; 86850; 86900; 86901; 87077; 87086; 87088; 87186; 87324; 88305; 90471; 90653; 93005; 94640; 96361; 96365; 96375; 96376; 97110; 97116; 97161; 97165; 97530; 97535; 99285; A9270; A9540; C8929; C9113; G0008; G0378; J0696; J0744; J2270; J2405; J2543; J2704; J7030; J7120; Q9957

== ENCOUNTER 2020-03-23 05:24 | Emergency (ER) | payer MEDICARE, BC, SELFPAY ==
--- NOTE | ~2020-03-23 | CT_ITS ---
EXAMINATION: CT abdomen pelvis wo con DATE: 03/23/2020 07:21 INDICATION: Abdominal pain. Nausea. TECHNIQUE: Computed tomography (CT) of the abdomen and pelvis was performed without intravenous contr ast. Automated exposure control and iterative reconstruction technique were employed. The dose-length product was 772.89 mGy-cm. COMPARISON: CT abdomen and pelvis 12/16/19 FINDINGS: The visualized portions of the lung bases demonstrate mild atelectasis. No pleural effusion . The heart size is normal. No pericardial effusion. There is a small sliding hiatal hernia. The live r, gallbladder, spleen, and pancreas are normal. There is thickening of the adrenal glands, likely be nign. There is a 3 mm stone in right kidney. There is cortical thinning of the kidneys. There are no dilated loops of bowel. The appendix is normal. There are no pathologically enlarged lymph nodes. The re is no free intraperitoneal fluid. There is mild lumbar spondylosis. IMPRESSION: 1. Small sliding hiatal hernia. 2. Small nonobstructing right kidney stone. Reviewed, dictated and finalized at location A. APPLICATIONS ARCHITECT
[2020-03-23 05:24] VITALS: BP 150/70; PULSE 65; RESP 20; TEMP 36.6; O2SAT 99
--- NOTE | 2020-03-23 05:53 | ED.NAVMDI ---
HPI - Nausea/Vomiting/Diarrhea General Chief complaint: Nausea/Vomiting/Diarrhea Stated complaint: Nausea Time Seen by Provider: 03/23/20 05:40 Source: patient Mode of arrival: ambulatory Limitations: no limitations History of Present Illness HPI Narrative: Patient is a 6-year-old female complaining of nausea since December. Patient states she has been to multiple hospitals for the same complaint but states that they cannot tell me what is wrong . Patient denies abdominal pain but points to her right upper quadrant and epigastric pain as a source of her nausea. Patient denies vomiting, diarrhea, fever or chills. Patient denies any chest pain or shortness of breath. Related Data Home Medications Medication Instructions Recorded Confirmed albuterol sulfate 2 puff INHALATION DAILY PRN 12/10/19 12/16/19 atorvastatin 80 mg PO DAILY 12/10/19 12/16/19 carbidopa-levodopa 3 tablet PO Q8H 12/10/19 12/16/19 diazepam 10 mg PO TID 12/10/19 12/16/19 fluoxetine 40 mg PO BID 12/10/19 12/16/19 hydroxyzine pamoate 25 mg PO QID 12/10/19 12/16/19 loratadine [Claritin] 10 mg PO DAILY 12/10/19 12/16/19 losartan 50 mg PO DAILY 12/10/19 12/16/19 oxcarbazepine 300 mg PO BID 12/10/19 12/16/19 quetiapine 50 mg PO HS 12/10/19 12/16/19 Breo Ellipta 1 inh INHALATION DAILY 12/16/19 12/16/19 aspirin 81 mg PO DAILY 12/16/19 12/16/19 fluticasone propionate 2 spray INTRANASAL DAILY 12/16/19 12/16/19 topiramate 100 mg PO BID 12/16/19 12/16/19 Allergies Allergy/AdvReac Type Severity Reaction Status Date / Time iodine Allergy Severe Hives Verified 12/16/19 12:32 latex Allergy Severe Hives Verified 12/16/19 12:32 Contrast Media Allergy Mild Hives Uncoded 12/16/19 14:10 Review of Systems Review of Systems: All systems reviewed & are unremarkable except as noted in HPI and below Constitutional: Constitutional: Denies body ache(s), Denies chills, Denies excessive sweating, Denies fatigue, Denies fever(s), Denies headache(s), Denies lethargy, Denies malaise, Denies weakness and Denies weight loss Eyes: Eyes: Denies blurry vision, Denies change in vision and Denies loss of vision ENT: Denies dizziness, Denies ear discharge, Denies headache(s), Denies lip swelling, Denies epistaxis, Denies nasal congestion, Denies neck pain, Denies throat swelling and Denies tongue swelling Cardiovascular: Cardiovascular: Denies chest pain, Denies chest pain at rest, Denies chest pain with activity, Denies diaphoresis, Denies rapid heart rate, Denies edema, Denies irregular heart rhythm, Denies lightheadedness, Denies palpitations, Denies dyspnea and Denies dyspnea on exertion Respiratory: Respiratory: Denies chest congestion, Denies cough, Denies hemoptysis, Denies dyspnea and Denies dyspnea on exertion Gastrointestinal: Gastrointestinal: Denies abdominal pain, Denies melena, Denies hematochezia, Denies diarrhea, Denies vomiting and Denies hematemesis Musculoskeletal: Musculoskeletal: Denies abnormal gait, Denies deformity, Denies joint swelling, Denies limited range of motion, Denies neck pain and Denies numbness Neurologic: Denies Abnormal speech present, Denies abnormal gait, Denies confusion, Denies dizziness, Denies headache(s), Denies focal weakness, Denies loss of vision, Denies numbness, Denies Other visual disturbances, Denies Sensory deficit (Neuro) and Denies weakness Psychiatric: Psychiatric: Denies confusion, Denies depression, Denies auditory hallucinations, Denies homicidal ideation and Denies suicidal ideation Endocrine: Endocrine: Denies cold intolerance, Denies excessive sweating, Denies fatigue, Denies heat intolerance and Denies palpitations Hematologic/Lymphatic: Hematologic/Lymphatic: Denies easy bleeding and Denies easy bruising Allergic/Immunologic: Allergic/Immunologic: Denies lip swelling, Denies throat swelling and Denies tongue swelling PMFSH Past Medical History Medical History Anxiety Chronic anem
[2020-03-23] MEDS: SODIUM CHLORIDE 0.9% IV 1,000 ML 999 ML IV CONT (06:00)
[2020-03-23 06:06] LABS: Basophils Absolute Auto 0.1 K/mm3 (0.0-0.1); Eosinophils Absolute Auto 0.3 K/mm3 (0-0.3); Eosinophils Percent Auto 3.4 % (0-4.4); Hematocrit 29.1 % (37.0-47.0); Hemoglobin 9.2 g/dL (12.0-15.0); Immature Granulocyte Absolute 0.05 K/mm3 (0.00-0.031); Immature Granulocyte Percent A 0.5 % (0-0.5); Lymphocytes Absolute Auto 1.53 K/mm3 (0.9-3.2); Lymphocytes Percent Auto 16.2 % (18.3-44.2); Mean Corpuscular HGB Conc 31.6 g/dl (32-36); Mean Corpuscular Hemoglobin 28.4 pg (26-34); Mean Corpuscular Volume 89.8 fl (80-100); Mean Platelet Volume 12.2 fl (7.4-10.4); Monocytes Absolute Auto 0.7 K/mm3 (0.1-0.6); Monocytes Percent Auto 7.1 % (2.6-8.5); Neutrophils Absolute Auto 6.8 K/mm3 (1.3-6.7); Neutrophils Percent Auto 71.8 % (45.5-73.1); Platelet Count Result 282 k/mm3 (150-375); Red Blood Count 3.24 M/mm3 (4.2-5.4); Red Cell Distribution Width 17.6 % (11.5-14.5); White Blood Count 9.5 K/mm3 (4.5-10.0)
[2020-03-23 06:09] LABS: Albumin Level 3.9 g/dL (3.5-5.1); Alkaline Phosphatase 123 U/L (38-126); Anion Gap 10 mmol/L (8-16); Aspartate Amino Transferase 12 U/L (14-36); Bilirubin,Total 0.3 mg/dL (0.2-1.3); Blood Urea Nitrogen 14 mg/dL (7-17); Calcium 9.1 mg/dL (8.4-10.2); Carbon Dioxide 18 mmol/L (22-30); Chloride 107 mmol/L (98-107); Estimated Glomerular Filt Rate 49; Glucose 112 mg/dL (65-105); Lipase 99 U/L (23-300); Potassium 3.8 mmol/L (3.4-5.0); Sodium 135 mmol/L (137-145)
[2020-03-23 06:10] LABS: Alanine Aminotransferase < 6 U/L (4-35)
--- NOTE | 2020-03-23 06:10 | PC.NURSE ---
Pt. unable to void.
[2020-03-23 06:32] VITALS: BP 134/74; PULSE 59; RESP 20; O2SAT 99
[2020-03-23] MEDS: ONDANSETRON INJ 4 MG/2 ML VIAL IV PUSH (06:47)
[2020-03-23 06:59] LABS: Add Urine Microscopic? YES; Appearance Urine Clear (Clear); Bacteria Urine Trace /hpf; Bilirubin Urine Negative (Negative); Blood Urine Negative (Negative); Color Urine Yellow (Yellow); Glucose Urine UA Negative (Negative); Ketones Urine Trace mg/dL (Negative); Leukocyte Esterase Ur 1+ LEU/UL (Negative); Mucus Urine Rare /lpf; Nitrate Urine Negative (Negative); Protein Urine 1+ mg/dL (Negative); Specific Grav Ur 1.015 (1.001-1.035); Squamous Epithelial Cell Urine Many /hpf (Few); Urobilinogen Urine Negative mg/dL (<2.0)
--- NOTE | 2020-03-23 07:51 | PC.NURSE ---
patient's contacted per patient request for a ride home
[2020-03-23 08:19] VITALS: BP 138/79; PULSE 62; RESP 17; O2SAT 100
== END 2020-03-23 08:20 | disposition home or self-care (01) ==
PROVIDERS: Emergency Medicine; Emergency Provider Emergency Medicine
DX: R10.10 Upper abdominal pain, unspecified (principal); R11.0 Nausea; F17.210 Nicotine dependence, cigarettes, uncomplicated; F41.9 Anxiety disorder, unspecified; I12.9 Hypertensive chronic kidney disease with stage 1 through stage 4 chronic kidney disease, or unspecified chronic kidney disease; E11.22 Type 2 diabetes mellitus with diabetic chronic kidney disease; N18.30 Chronic kidney disease, stage 3 unspecified; F32.9 Major depressive disorder, single episode, unspecified; K21.9 Gastro-esophageal reflux disease without esophagitis; E78.5 Hyperlipidemia, unspecified; M19.90 Unspecified osteoarthritis, unspecified site; G20 Parkinson's disease
CPT/HCPCS: 36415; 74176; 80053; 81001; 83690; 85025; 87086; 87088; 96361; 96374; 99284; J2405; J7030

== ENCOUNTER 2020-04-03 04:52 | Emergency (ER) | payer MEDICARE, BC, SELFPAY ==
[2020-04-03] VITALS (9 sets, daily range): BP systolic 127–142; BP diastolic 58–96; PULSE 57–77; RESP 18–25; TEMP 36.4; O2SAT 95–100
--- NOTE | 2020-04-03 04:57 | ECG_ITS ---
Measurements Intervals [place] Rate: 54 P: 43 IN: 172 QRS: -6 QRSD: 89 T: 29 QT: 447 QTc: 425 Interpretive Statements SINUS BRADYCARDIA WITH SINUS ARRHYTHMIA BORDERLINE ECG Electronically Signed On 04-03-2020 7:44:35 [employer] by Calin Fernandez D.O.
--- NOTE | 2020-04-03 05:13 | ED.GENADULT ---
HPI - General Adult General Chief complaint: Nausea/Vomiting/Diarrhea Stated complaint: nausea History of Present Illness HPI narrative: Patient is a 69-year-old female that presents the emergency department with chief complaint of nausea. The patient reports that she has been feeling nauseous since December reports that she has been seen in our facility and also at [facility]. The patient states that tonight she was continually nauseated and decided to call EMS the patient had requested that EMS transport her to [facility] but EMS instructed her that they were unable to transport her that distance patient reports that she sees a GI doctor in [place] reports that she is had no improvement since December. Patient denies diarrhea denies localizing abdominal pain Related Data Home Medications Medication Instructions Recorded Confirmed albuterol sulfate 2 puff INHALATION DAILY PRN 12/10/19 12/16/19 atorvastatin 80 mg PO DAILY 12/10/19 12/16/19 carbidopa-levodopa 3 tablet PO Q8H 12/10/19 12/16/19 diazepam 10 mg PO TID 12/10/19 12/16/19 fluoxetine 40 mg PO BID 12/10/19 12/16/19 hydroxyzine pamoate 25 mg PO QID 12/10/19 12/16/19 loratadine [Claritin] 10 mg PO DAILY 12/10/19 12/16/19 losartan 50 mg PO DAILY 12/10/19 12/16/19 oxcarbazepine 300 mg PO BID 12/10/19 12/16/19 quetiapine 50 mg PO HS 12/10/19 12/16/19 Breo Ellipta 1 inh INHALATION DAILY 12/16/19 12/16/19 aspirin 81 mg PO DAILY 12/16/19 12/16/19 fluticasone propionate 2 spray INTRANASAL DAILY 12/16/19 12/16/19 topiramate 100 mg PO BID 12/16/19 12/16/19 Allergies Allergy/AdvReac Type Severity Reaction Status Date / Time iodine Allergy Severe Hives Verified 12/16/19 12:32 latex Allergy Severe Hives Verified 12/16/19 12:32 Contrast Media Allergy Mild Hives Uncoded 12/16/19 14:10 Review of Systems Review of Systems: Narrative: A 10 system review of systems was completed on the patient and is negative except for what is stated in the HPI. Nursing and ancillary documentation was reviewed. [facility] Past Medical History Medical History Anxiety Chronic anemia Chronic kidney disease, stage 3 Baseline creatinine ranges between 1.2 and 1.50. Chronic obstructive pulmonary disease Depression Gastroesophageal reflux disease GI bleed (~01/2010) Secondary to peptic ulcer. Hyperlipidemia Hypertension Hypothyroidism Kidney stones Obstructive sleep apnea Patient does not use PAP therapy at nighttime. Osteoarthritis Parkinson disease Type 2 diabetes mellitus Surgical History Surgical History History of bilateral knee arthroplasty History of hysterectomy History of sinus surgery Family History Family History Grandparent Diabetes mellitus Acute myocardial infarction Father Acute myocardial infarction Mother Acute myocardial infarction Social History Social History Social History: Surrogate decision maker: Fly Rondon, . Code status: Full code. Smoking packs per day: 1 Smoking cigarettes per day: 20.0 Years smoked: 40 Smoking pack-years: 40.00 Smoking status: Current every day smoker Tobacco type: cigarettes Alcohol intake: never Substance use: never Substance use type: does not use Additional living arrangements comments: Resides in [place] with her . Gender identity (if verbalized by the patient): Female Spiritual care concerns: No Exam Narrative: Exam Narrative: GENERAL: Well-appearing, well-nourished, and in no acute distress. HEAD: Normocephalic, atraumatic. EYES: PERRLA and EOMI. ENT: Nares clear, no rhinorrhea or epistaxis. Mucous membranes moist. NECK: Supple. CHEST: Clear to auscultation. No respiratory distress. HEART: Regular rate and rhythm. No m
[2020-04-03] MEDS: SODIUM CHLORIDE 0.9% IV 1,000 ML 999 ML IV CONT (05:29)
[2020-04-03] MEDS: PROCHLORPERAZINE EDISYLATE 10 MG/2 ML VIAL IM (05:30)
[2020-04-03] MEDS: diphenhydrAMINE HCl INJ 50 MG/ML VIAL 25 MG IV PUSH (05:30)
[2020-04-03] MEDS: LORazepam INJ (*CRX) 2 MG/ML VIAL 1 MG IV PUSH (05:31)
[2020-04-03 05:35] LABS: Basophils Absolute Auto 0.1 K/mm3 (0.0-0.1); Basophils Percent Auto 1.2 % (0.2-1.2); Eosinophils Absolute Auto 0.4 K/mm3 (0-0.3); Eosinophils Percent Auto 4.7 % (0-4.4); Hematocrit 31.8 % (37.0-47.0); Hemoglobin 9.7 g/dL (12.0-15.0); Immature Granulocyte Absolute 0.05 K/mm3 (0.00-0.031); Immature Granulocyte Percent A 0.6 % (0-0.5); Lymphocytes Absolute Auto 1.58 K/mm3 (0.9-3.2); Lymphocytes Percent Auto 17.8 % (18.3-44.2); Mean Corpuscular HGB Conc 30.5 g/dl (32-36); Mean Corpuscular Hemoglobin 28.1 pg (26-34); Mean Corpuscular Volume 92.2 fl (80-100); Mean Platelet Volume 11.1 fl (7.4-10.4); Monocytes Absolute Auto 0.8 K/mm3 (0.1-0.6); Monocytes Percent Auto 8.4 % (2.6-8.5); Neutrophils Percent Auto 67.3 % (45.5-73.1); Platelet Count Result 348 k/mm3 (150-375); Red Blood Count 3.45 M/mm3 (4.2-5.4); Red Cell Distribution Width 17.2 % (11.5-14.5); White Blood Count 8.9 K/mm3 (4.5-10.0)
[2020-04-03 05:50] LABS: Lactic Acid Reflex 1.3 mmol/L (0.7-2.1)
[2020-04-03 05:53] LABS: Albumin Level 3.8 g/dL (3.5-5.1); Alkaline Phosphatase 113 U/L (38-126); Anion Gap 9 mmol/L (8-16); Aspartate Amino Transferase 10 U/L (14-36); Bilirubin,Total 0.4 mg/dL (0.2-1.3); Blood Urea Nitrogen 17 mg/dL (7-17); Calcium 9.2 mg/dL (8.4-10.2); Carbon Dioxide 21 mmol/L (22-30); Chloride 107 mmol/L (98-107); Estimated Glomerular Filt Rate > 60; Glucose 107 mg/dL (65-105); Lipase 98 U/L (23-300); Potassium 4.6 mmol/L (3.4-5.0); Sodium 137 mmol/L (137-145)
[2020-04-03 05:57] LABS: Alanine Aminotransferase < 6 U/L (4-35)
[2020-04-03 06:47] LABS: Add Urine Microscopic? YES; Appearance Urine Clear (Clear); Bilirubin Urine Negative (Negative); Blood Urine Negative (Negative); Color Urine Yellow (Yellow); Glucose Urine UA Negative (Negative); Ketones Urine Trace mg/dL (Negative); Leukocyte Esterase Ur Negative LEU/UL (Negative); Mucus Urine Rare /lpf; Nitrate Urine Negative (Negative); Protein Urine Negative (Negative); Specific Grav Ur 1.018 (1.001-1.035); Squamous Epithelial Cell Urine Occasional /hpf (Few); Urobilinogen Urine Negative mg/dL (<2.0); WBC Urine 0-3 /hpf
[2020-04-03] MEDS: HALOPERIDOL LACTATE 5 MG/ML VIAL 2.5 MG IV PUSH (06:51)
[2020-04-03] MEDS: BELLADONNA ALK/PHENOB ELIX 10 ML, MAG HYDROX/ALUMINUM HYD/SIMETH 30 ML, LIDOCAINE HCL 2... PO (06:51)
== END 2020-04-03 07:45 | disposition home or self-care (01) ==
PROVIDERS: Emergency Provider Emergency Medicine
DX: R11.0 Nausea (principal); I12.9 Hypertensive chronic kidney disease with stage 1 through stage 4 chronic kidney disease, or unspecified chronic kidney disease; N18.30 Chronic kidney disease, stage 3 unspecified; E11.22 Type 2 diabetes mellitus with diabetic chronic kidney disease; J44.9 Chronic obstructive pulmonary disease, unspecified; G20 Parkinson's disease; K21.9 Gastro-esophageal reflux disease without esophagitis; E78.5 Hyperlipidemia, unspecified; E03.9 Hypothyroidism, unspecified; Z87.442 Personal history of urinary calculi; G47.33 Obstructive sleep apnea (adult) (pediatric); M19.90 Unspecified osteoarthritis, unspecified site; F32.9 Major depressive disorder, single episode, unspecified; F41.9 Anxiety disorder, unspecified; Z96.653 Presence of artificial knee joint, bilateral; F17.210 Nicotine dependence, cigarettes, uncomplicated
CPT/HCPCS: 36415; 51701; 80053; 81001; 83605; 83690; 85025; 93005; 96361; 96372; 96374; 96375; 99284; A9270; J0780; J1200; J1630; J2060; J7030

== ENCOUNTER 2020-06-17 15:58 | Emergency (ER) | payer MEDICARE, BC, SELFPAY ==
--- NOTE | 2020-06-17 17:28 | PC.NURSE ---
1705 pt brought into triage.,states she doesn't want to be seen. Pt alert and oriented x 3 answering questions appropriately, asking to call her to come and pick her up. Spouse contacted .
--- NOTE | 2020-06-17 17:39 | PC.NURSE ---
[id number] spouse here to greens picker pt. Spouse assisted pt to POV to take home.
== END 2020-06-17 17:25 | disposition left against medical advice (07) ==
DX: Z53.21 Procedure and treatment not carried out due to patient leaving prior to being seen by health care provider (principal)
CPT/HCPCS: 99199

== ENCOUNTER 2021-08-09 18:45 | Outpatient (NON) | payer MEDICARE, BC, SELFPAY ==
[2021-08-09 19:26] LABS: Basophils Absolute Auto 0.1 K/mm3 (0.0-0.1); Basophils Percent Auto 0.4 % (0.2-1.2); Eosinophils Absolute Auto 0.1 K/mm3 (0-0.3); Eosinophils Percent Auto 0.8 % (0-4.4); Hematocrit 25.3 % (37.0-47.0); Hemoglobin 7.9 g/dL (12.0-15.0); Immature Granulocyte Absolute 0.11 K/mm3 (0.00-0.031); Immature Granulocyte Percent A 0.9 % (0-0.5); Lymphocytes Absolute Auto 0.94 K/mm3 (0.9-3.2); Lymphocytes Percent Auto 7.5 % (18.3-44.2); Mean Corpuscular HGB Conc 31.2 g/dl (32-36); Mean Corpuscular Hemoglobin 29.9 pg (26-34); Mean Corpuscular Volume 95.8 fl (80-100); Mean Platelet Volume 12.1 fl (7.4-10.4); Monocytes Absolute Auto 0.7 K/mm3 (0.1-0.6); Monocytes Percent Auto 5.5 % (2.6-8.5); Neutrophils Absolute Auto 10.7 K/mm3 (1.3-6.7); Neutrophils Percent Auto 84.9 % (45.5-73.1); Platelet Count Result 242 k/mm3 (150-375); Red Blood Count 2.64 M/mm3 (4.2-5.4); Red Cell Distribution Width 13.8 % (11.5-14.5); White Blood Count 12.6 K/mm3 (4.5-10.0)
[2021-08-09 19:32] LABS: Anion Gap 10 mmol/L (8-16); Blood Urea Nitrogen 65 mg/dL (7-17); Calcium 8.7 mg/dL (8.4-10.2); Carbon Dioxide 26 mmol/L (22-30); Chloride 90 mmol/L (98-107); Estimated Glomerular Filt Rate 22; Glucose 281 mg/dL (65-110); Potassium 5.3 mmol/L (3.4-5.0); Sodium 126 mmol/L (137-145)
== END 2021-08-09 18:46 | disposition home or self-care (01) ==
LOC: ANHLAB 19:08 → HOME HLTH 19:22
PROVIDERS: PCP Family Medicine
DX: I13.0 Hypertensive heart and chronic kidney disease with heart failure and stage 1 through stage 4 chronic kidney disease, or unspecified chronic kidney disease (principal); E11.22 Type 2 diabetes mellitus with diabetic chronic kidney disease
CPT/HCPCS: 80048; 83036; 85025

== ENCOUNTER 2021-08-27 07:59 | Emergency (ER) | payer MEDICARE, BC, SELFPAY ==
--- NOTE | ~2021-08-27 | XR_ITS ---
XR foot LT min 3V DATE: 08/27/2021 09:36 INDICATION: Anterior left foot abrasion. Severe pain. History of neuropathy. TECHNIQUE: 4 views COMPARISON: None FINDINGS: Plantar calcaneal enthesopathy. No fracture or dislocation, periosteal reaction or bone destruction is detected. IMPRESSION: Plantar calcaneal enthesopathy Reviewed, dictated and finalized at location A.
[2021-08-27 08:16] VITALS: BP 120/42; PULSE 52; RESP 18; TEMP 36.6; O2SAT 95
[2021-08-27 08:57] VITALS: BP 153/68; PULSE 63; RESP 20; O2SAT 98
--- NOTE | 2021-08-27 09:29 | ED.SKABFB ---
HPI - Skin/Abscess/Foreign Bdy General Chief complaint: Skin/Abscess/Foreign Body <Susi Moseley PA-C - Last Filed: 08/27/21 12:35> Stated complaint: L foot wound/pain <Susi Moseley PA-C - Last Filed: 08/27/21 12:35> Time Seen by Provider: 08/27/21 09:07 <Susi Moseley PA-C - Last Filed: 08/27/21 12:35> Source: patient <DON Cole Last Filed: 08/27/21 12:35> Mode of arrival: ambulatory <Susi Moseley PA-C - Last Filed: 08/27/21 12:35> Limitations: no limitations <DON Cole Last Filed: 08/27/21 12:35> History of Present Illness HPI narrative: This is a 70-year-old female that presents to the emergency department for wound to her left foot ongoing over the last couple of days. Reports she scratched her left foot with the toenails on her right foot. She sustained a superficial abrasion to the area. She presents to the ER for pain. Denies fever, erythema, edema, or abnormal drainage. <Susi Moseley PA-C - Last Filed: 08/27/21 12:35> Related Data Home medications: Home Medications Medication Instructions Recorded Confirmed albuterol sulfate 90 mcg/actuation 2 puff inhalation DAILY PRN 12/10/19 11/28/20 aerosol inhaler Shortness Of Breath atorvastatin 80 mg tablet 80 mg PO DAILY 12/10/19 11/28/20 carbidopa 25 mg-levodopa 100 mg 3 tablet PO Q8H 12/10/19 11/28/20 tablet fluoxetine 40 mg capsule 40 mg PO BID 12/10/19 11/28/20 oxcarbazepine 300 mg tablet 300 mg PO BID 12/10/19 11/28/20 alprazolam 1 mg tablet 1 mg PO TID PRN Anxiety 10/10/20 11/28/20 gabapentin 300 mg capsule 300 mg PO QID 10/10/20 11/28/20 multivitamin 1 tablet PO DAILY 11/28/20 11/28/20 carvedilol 6.25 mg tablet tablet 08/27/21 08/27/21 sodium bicarbonate 650 mg tablet tablet 08/27/21 08/27/21 <Susi Moseley PA-C - Last Filed: 08/27/21 12:35> Allergies/Adverse reactions: Allergies Allergy/AdvReac Type Severity Reaction Status Date / Time iodine Allergy Severe Hives Verified 08/27/21 08:25 latex Allergy Severe Hives Verified 08/27/21 08:25 Contrast Media Allergy Mild Hives Uncoded 08/27/21 08:25 <Susi Moseley PA-C - Last Filed: 08/27/21 12:35> Review of Systems Review of Systems: CONSTITUTIONAL: Denies fever SKIN: Reports abrasion <Susi Moseley PA-C - Last Filed: 08/27/21 12:35> All systems reviewed & are unremarkable except as noted in HPI and below <Susi Moseley PA-C - Last Filed: 08/27/21 12:35> [facility] Past Medical History Medical History: Medical History (Updated 08/27/21 @ 12:34 by Susi Moseley PA-C) Anxiety BMI greater than 40 Chronic anemia Chronic kidney disease, stage 3 Baseline creatinine ranges between 1.2 and 1.50. Chronic obstructive pulmonary disease Depression Gastroesophageal reflux disease GI bleed (~01/2010) Secondary to peptic ulcer. Hyperlipidemia Hypertension Hypothyroidism Kidney stones Left shoulder pain Neuropathy Obstructive sleep apnea Patient does not use PAP therapy at nighttime. Osteoarthritis Parkinson disease Polyuria Type 2 diabetes mellitus <Susi Moseley PA-C - Last Filed: 08/27/21 12:35> Surgical History Surgical History: Surgical History History of bilateral knee arthroplasty History of hysterectomy History of sinus surgery <Susi Moseley PA-C - Last Filed: 08/27/21 12:35> Family History Family History: Family History Grandparent Diabetes mellitus Acute myocardial infarction Father Acute myocardial infarction Mother Acute myocardial infarction <Susi Moseley PA-C - Last Filed: 08/27/21 12:35> Social History Social History: Social History Social History: Surrogate decision maker: Fly Rondon, . Code status: Full code. Smoking packs per day: 1 Smoking ciga
[2021-08-27] MEDS: ACETAMINOPHEN 500 MG TABLET 1000 MG PO (09:34)
[2021-08-27 09:50] LABS: Basophils Absolute Auto 0.1 K/mm3 (0.0-0.1); Basophils Percent Auto 0.8 % (0.2-1.2); Eosinophils Absolute Auto 0.7 K/mm3 (0-0.3); Eosinophils Percent Auto 8.4 % (0-4.4); Hematocrit 24.4 % (37.0-47.0); Hemoglobin 7.4 g/dL (12.0-15.0); Immature Granulocyte Absolute 0.04 K/mm3 (0.00-0.031); Immature Granulocyte Percent A 0.5 % (0-0.5); Lymphocytes Absolute Auto 1.59 K/mm3 (0.9-3.2); Lymphocytes Percent Auto 20.2 % (18.3-44.2); Mean Corpuscular HGB Conc 30.3 g/dl (32-36); Mean Corpuscular Hemoglobin 30.2 pg (26-34); Mean Corpuscular Volume 99.6 fl (80-100); Mean Platelet Volume 9.8 fl (7.4-10.4); Monocytes Absolute Auto 0.7 K/mm3 (0.1-0.6); Monocytes Percent Auto 8.8 % (2.6-8.5); Neutrophils Absolute Auto 4.8 K/mm3 (1.3-6.7); Neutrophils Percent Auto 61.3 % (45.5-73.1); Platelet Count Result 267 k/mm3 (150-375); Red Blood Count 2.45 M/mm3 (4.2-5.4); White Blood Count 7.9 K/mm3 (4.5-10.0)
[2021-08-27 10:00] LABS: Anion Gap 5 mmol/L (8-16); Blood Urea Nitrogen 45 mg/dL (7-17); Calcium 8.8 mg/dL (8.4-10.2); Carbon Dioxide 32 mmol/L (22-30); Chloride 97 mmol/L (98-107); Estimated CRCL calculation 33 ml/min; Estimated Glomerular Filt Rate 28; Glucose 188 mg/dL (65-110); Potassium 4.7 mmol/L (3.4-5.0); Sodium 134 mmol/L (137-145)
[2021-08-27] MEDS: traMADol HCL (*CRX) 50 MG TABLET PO (11:45)
[2021-08-27 12:59] VITALS: BP 104/80; PULSE 56; RESP 18; O2SAT 98
== END 2021-08-27 12:52 | disposition home or self-care (01) ==
PROVIDERS: Physician Assistant; Emergency Provider Emergency Medicine
DX: S90.812A Abrasion, left foot, initial encounter (principal); E11.22 Type 2 diabetes mellitus with diabetic chronic kidney disease; I12.9 Hypertensive chronic kidney disease with stage 1 through stage 4 chronic kidney disease, or unspecified chronic kidney disease; N18.4 Chronic kidney disease, stage 4 (severe); D63.1 Anemia in chronic kidney disease; J44.9 Chronic obstructive pulmonary disease, unspecified; G20 Parkinson's disease; E78.5 Hyperlipidemia, unspecified; E03.9 Hypothyroidism, unspecified; E11.40 Type 2 diabetes mellitus with diabetic neuropathy, unspecified; G47.33 Obstructive sleep apnea (adult) (pediatric); M19.90 Unspecified osteoarthritis, unspecified site; F41.9 Anxiety disorder, unspecified; F32.A Depression, unspecified; Z87.442 Personal history of urinary calculi; X58.XXXA Exposure to other specified factors, initial encounter
CPT/HCPCS: 36415; 73630; 80048; 85025; 99283; A9270

== ENCOUNTER 2021-12-12 05:04 | Inpatient (IN) | payer MEDICARE, BC, SELFPAY ==
[2021-12-12] VITALS (41 sets, daily range): BP systolic 72–149; BP diastolic 44–114; PULSE 33–72; RESP 11–25; TEMP 36.4–37.8; O2SAT 91–100; BMI 48.6
--- NOTE | ~2021-12-12 | XR_ITS ---
EXAMINATION: XR chest PICC line DATE: 12/12/2021 13:15 INDICATION: Central line placement. TECHNIQUE: A single frontal view of the chest was obtained. COMPARISON: Chest single view at 6:24 AM FINDINGS: There is no pneumonia, pleural effusion or pneumothorax. Cardiomegaly is noted. A left uppe r extremity peripherally inserted central venous catheter (PICC) is seen with tip in the superior odin a cava. IMPRESSION: 1. PICC tip in superior vena cava. 2. Cardiomegaly. Reviewed, dictated and finalized at location A.
--- NOTE | ~2021-12-12 | US_ITS ---
EXAMINATION:US venous doppler LE BI INDICATION:Chest pain. Fevers. TECHNIQUE: Multiple grayscale, color flow and Doppler images of the right and left lower extremity de ep venous systems were obtained and reviewed. COMPARISON: FINDINGS: The common femoral, superficial femoral and popliteal veins demonstrate normal respiratory variation, augmentation and compressibility. Color flow is also seen within the greater saphenous an d profunda veins. The left posterior tibial and peroneal vein are not visualized. IMPRESSION: 1: No lower extremity deep venous thrombosis. Reviewed, dictated and finalized at location A.
--- NOTE | ~2021-12-12 | XR_ITS ---
EXAMINATION: XR chest 1V portable DATE: 12/12/2021 06:28 INDICATION: Dyspnea. TECHNIQUE: A single frontal view of the chest was obtained. COMPARISON: Chest single view 12/16/2019, CT abdomen and pelvis 03/23/2020 FINDINGS: There is no pneumonia, pleural effusion, or pneumothorax. Cardiomegaly is noted. IMPRESSION: 1. Cardiomegaly. Reviewed, dictated and finalized at location A. IMPRESSION: 1. Cardiomegaly.
--- NOTE | ~2021-12-12 | CT_ITS ---
EXAMINATION: CT brain wo con DATE: 12/13/2021 13:25 INDICATION: Aphasia. TECHNIQUE: Computed tomography (CT) of the head was performed without intravenous contrast. The mA wa s adjusted according to patient size. Iterative reconstruction technique was employed. The dose-lengt h product was 1270.67 mGy-cm. COMPARISON: Head CT 12/16/19, brain MRI 12/11/2019 FINDINGS: There is mild motion artifact. There are scattered areas of low attenuation in the cerebral white matter. There is no intracranial hemorrhage, acute infarction, or abnormal intracranial mass l esion. The ventricles are normal in size. There are no pathologically enlarged lymph nodes. There is mild mucosal thickening in the paranasal sinuses. The mastoid air cells are normal. IMPRESSION: 1. Stable extensive nonspecific cerebral white matter disease, which likely represents chronic small vessel ischemic disease. Reviewed, dictated and finalized at location A. IMPRESSION: 1. Stable extensive nonspecific cerebral white matter disease, which likely rep resents chronic small vessel ischemic disease.
--- NOTE | 2021-12-12 05:12 | ECG_ITS ---
Measurements Intervals [place] Rate: 37 P: [place]: 0 QRS: 15 QRSD: 89 T: 28 QT: 493 QTc: 388 Interpretive Statements SLOW JUNTIONAL RHYTHM LOW QRS VOLTAGE IN PRECORDIAL LEADS BASELINE ARTIFACT- I, II, III, AVR, AVF ABNORMAL ECG COMPARED TO ECG 04/03/2020 05:49:24 SLOW JUNTIONAL RHYTHM NOW PRESENT Electronically Signed On 12-12-2021 8:24:25 CDT by Calin Fernandez D.O.
[2021-12-12 05:39] LABS: Basophils Absolute Auto 0.1 K/mm3 (0.0-0.1); Basophils Percent Auto 0.7 % (0.2-1.2); Eosinophils Absolute Auto 0.4 K/mm3 (0-0.3); Eosinophils Percent Auto 3.6 % (0-4.4); Hematocrit 30.7 % (37.0-47.0); Hemoglobin 9.3 g/dL (12.0-15.0); Immature Granulocyte Absolute 0.08 K/mm3 (0.00-0.031); Immature Granulocyte Percent A 0.7 % (0-0.5); Lymphocytes Absolute Auto 0.96 K/mm3 (0.9-3.2); Lymphocytes Percent Auto 8.4 % (18.3-44.2); Mean Corpuscular HGB Conc 30.3 g/dl (32-36); Mean Corpuscular Hemoglobin 31.2 pg (26-34); Mean Platelet Volume 11.2 fl (7.4-10.4); Monocytes Absolute Auto 0.7 K/mm3 (0.1-0.6); Monocytes Percent Auto 6.4 % (2.6-8.5); Neutrophils Absolute Auto 9.1 K/mm3 (1.3-6.7); Neutrophils Percent Auto 80.2 % (45.5-73.1); Platelet Count Result 282 k/mm3 (150-375); Red Blood Count 2.98 M/mm3 (4.2-5.4); White Blood Count 11.4 K/mm3 (4.5-10.0)
[2021-12-12 05:48] LABS: Alanine Aminotransferase 9 U/L (6-35); Albumin Level 4.2 g/dL (3.5-5.1); Alkaline Phosphatase 173 U/L (38-126); Anion Gap 15 mmol/L (8-16); Aspartate Amino Transferase 22 U/L (14-36); Bilirubin,Total 0.4 mg/dL (0.2-1.3); Blood Urea Nitrogen 62 mg/dL (7-17); Calcium 8.4 mg/dL (8.4-10.2); Carbon Dioxide 21 mmol/L (22-30); Chloride 91 mmol/L (98-107); Estimated CRCL calculation 23 ml/min; Estimated Glomerular Filt Rate 17; Glucose 217 mg/dL (65-110); Lactic Acid Reflex 1.5 mmol/L (0.7-2.0); Magnesium 2.4 mg/dL (1.6-2.3); Potassium 5.8 mmol/L (3.4-5.0); Sodium 127 mmol/L (137-145)
[2021-12-12 05:59] LABS: NT Pro B Type Natriuretic Pept 2030 pg/mL (5-100); Troponin I < 0.012 ng/mL (0.000-0.034)
[2021-12-12] MEDS: ATROPINE SULFATE 1 MG/10 ML SYRINGE 0.5 MG IV PUSH ×2 (06:08→06:35)
[2021-12-12 06:24] LABS: SARS-CoV-2 RNA PCR Negative
[2021-12-12] MEDS: LACTATED RINGERS 1,000 ML 999 ML IV CONT (06:35)
--- NOTE | 2021-12-12 06:46 | ED.SOB ---
HPI - SOB/Dyspnea General Chief Complaint: Shortness of Breath/Dyspnea Stated Complaint: sob - anxiety attack Time Seen by Provider: 12/12/21 05:12 History of Present Illness HPI Narrative: [facility], she had gone home and started feeling short of breath and winded to the point where she cannot get into her house, she is feeling anxious and lightheaded and called EMS. Denies any chest pain. Related Data Home Medications Medication Instructions Recorded Confirmed albuterol sulfate 90 mcg/actuation 2 puff inhalation DAILY PRN 12/10/19 11/28/20 aerosol inhaler Shortness Of Breath atorvastatin 80 mg tablet 80 mg PO DAILY 12/10/19 11/28/20 carbidopa 25 mg-levodopa 100 mg 3 tablet PO Q8H 12/10/19 11/28/20 tablet fluoxetine 40 mg capsule 40 mg PO BID 12/10/19 11/28/20 oxcarbazepine 300 mg tablet 300 mg PO BID 12/10/19 11/28/20 alprazolam 1 mg tablet 1 mg PO TID PRN Anxiety 10/10/20 11/28/20 gabapentin 300 mg capsule 300 mg PO QID 10/10/20 11/28/20 multivitamin 1 tablet PO DAILY 11/28/20 11/28/20 carvedilol 6.25 mg tablet tablet 08/27/21 08/27/21 sodium bicarbonate 650 mg tablet tablet 08/27/21 08/27/21 Allergies Allergy/AdvReac Type Severity Reaction Status Date / Time iodine Allergy Severe Hives Verified 12/12/21 05:05 latex Allergy Severe Hives Verified 12/12/21 05:05 Contrast Media Allergy Mild Hives Uncoded 08/27/21 08:25 Review of Systems Review of Systems: CONST: No fever. HEENT: No sore throat C/V: No chest pain RESP: Shortness of breath GI: no abdominal pain : No dysuria. M/S: No joint pain. SKIN: No rash. NEURO: Lightheadedness PSYCH: Anxious PMFSH Past Medical History Medical History Anxiety BMI greater than 40 Chronic anemia Chronic kidney disease, stage 3 Baseline creatinine ranges between 1.2 and 1.50. Chronic obstructive pulmonary disease Depression Gastroesophageal reflux disease GI bleed (~01/2010) Secondary to peptic ulcer. Hyperlipidemia Hypertension Hypothyroidism Kidney stones Left shoulder pain Neuropathy Obstructive sleep apnea Patient does not use PAP therapy at nighttime. Osteoarthritis Parkinson disease Polyuria Type 2 diabetes mellitus Surgical History Surgical History History of bilateral knee arthroplasty History of hysterectomy History of sinus surgery Family History Family History Grandparent Diabetes mellitus Acute myocardial infarction Father Acute myocardial infarction Mother Acute myocardial infarction Social History Social History Social History: Surrogate decision maker: Fly Rondon, . Code status: Full code. Smoking packs per day: 1 Smoking cigarettes per day: 20.0 Years smoked: 40 Smoking pack-years: 40.00 Smoking status: Former smoker Tobacco type: cigarettes Alcohol intake: never Substance use: never Substance use type: does not use Additional living arrangements comments: Resides in [place] with her . Gender identity (if verbalized by the patient): Female Spiritual care concerns: No Exam Narrative: EXAMINATION OF ORGAN SYSTEMS/BODY AREAS: Constitutional: Vital signs per nursing GENERAL: Slightly anxious but otherwise in no distress, speaking in full sentences HEAD: Normal with no signs of head trauma. EYES: EOMI, conjunctiva normal ENT: Hearing grossly intact LUNGS: Normal respirations and clear to auscultation bilaterally HEART: Bradycardic, regular rhythm ABD: [Soft], [nontender to palpation] EXT: Normal range of motion, no lower extremity edema SKIN: [No rashes or lesions.] NEURO: [Alert and oriented x 3. No gross focal sensory or strength deficits.] PSYCH: Normal affect Course Vital Signs Vital signs: V
[2021-12-12] MEDS: DOPamine 400 MG/D5W 250 ML 400 MG/250 ML BAG 11.67 MG IV CONT (07:00)
[2021-12-12] MEDS: CALCIUM GLUC 2,000 MG/NS 100ML 2,000 MG/100 ML BAG 100 MG IVPB (07:00)
[2021-12-12] MEDS: SODIUM BICARBONATE 8.4% 50 MEQ/50 ML SYRINGE IV PUSH (07:08)
[2021-12-12] MEDS: DEXTROSE 50% 25 GM/50 ML SYRINGE IV PUSH (07:08)
[2021-12-12] MEDS: INSULIN HUMAN REGULAR (*BKC) 100 UNITS/ML 10 UNITS IV PUSH (07:09)
--- NOTE | 2021-12-12 07:16 | PC.NURSE ---
Report given to Babita MARIEE
[2021-12-12] MEDS: GLUCAGON FOR INJ 1 MG VIAL 5 MG IV PUSH (07:40)
[2021-12-12] MEDS: ONDANSETRON INJ 4 MG/2 ML VIAL IV PUSH (07:53)
--- NOTE | 2021-12-12 08:22 | PC.NURSE ---
This patient, Jenni Rondon, was admitted to Intensive Care Unit-2. Patient/family oriented to hospital policies and general routines including ID bracelet, bed and alarms, visiting hours, pain management, procedures, bathroom and other care routines, personal items, smoking policy, room service/diet, and visiting hours. Information on how to activate the Rapid Response Team has been discussed. Patient/Family are encouraged to report perceived risks to care and to ask questions if they do not understand what they are told or what they should do.
--- NOTE | 2021-12-12 09:43 | ECG_ITS ---
Measurements Intervals [place] Rate: 63 P: 31 [place]: 274 QRS: 49 QRSD: 98 T: 32 QT: 398 QTc: 410 Interpretive Statements JUNCTIONAL RHYTHM FREQUENT ATRIAL PREMATURE COMPLEXES BASELINE ARTIFACT- II, III, AVR, AVL, AVF, V1 ABNORMAL ECG COMPARED TO ECG 12/12/2021 05:17:11 HEART RATE HAS INCREASED Electronically Signed On 12-12-2021 11:47:04 CDT by Calin Fernandez D.O.
--- NOTE | 2021-12-12 09:44 | PM.CNCAR ---
Assessment and Plan Assessment and plan (1) Bradycardia: Code(s): R00.1 - Bradycardia, unspecified Status: Acute Assessment and Plan: ECG appears to be junctional bradycardia. Hold her Coreg and any other AV kevin blocking agents. Continue Dopamine drip for now. Obtain records from her recent [facility] hospitalization. Keep electrolytes optimized. Patient should be wearing CPAP whenever sleeping. History of Present Illness History of Present Illness Consult date/time: 12/12/21 09:44 Requesting physician: Rufina Schafer MD Consult reason: Other (Bradycardia) Reason For Visit: Bradycardia/Shock Narrative: Patient is a 71-year-old female with a history of COPD, CHF, HTN, HLD, DERRICK, T2DM, Parkinson's disease who presented with lightheadedness/dizziness. Patient was recently discharged from [facility] yesterday for what she reports a heart failure exacerbation. Patient states a few hours after discharge, she became lightheaded and dizzy. Did not lose consciousness. On arrival to the ED, patient noted to be bradycardic. Her blood pressure was initially stable. Her shortness of breath improved when placed on nasal cannula. Patient then noted to be hypotensive, down to 70/40s. Given 1mg of Atropine with improvement in heart rate and symptoms. Given IVFs, glucagon. Patient denies any chest pain. States her lightheadedness/dizziness are much better now this morning. Patient states she does take Carvedilol. Has been on it for a few months now. Took her last dose either late yesterday night or early this AM. Does not think she took extra pills of her Coreg. Review of Systems Review of Systems: 12-point ROS obtained. Negative, unless stated in HPI. FOR[facility]LY [facility] Past Medical History Medical History Anxiety BMI greater than 40 Chronic anemia Chronic kidney disease, stage 3 Baseline creatinine ranges between 1.2 and 1.50. Chronic obstructive pulmonary disease Depression Gastroesophageal reflux disease GI bleed (~01/2010) Secondary to peptic ulcer. Hyperlipidemia Hypertension Hypothyroidism Kidney stones Left shoulder pain Neuropathy Obstructive sleep apnea Patient does not use PAP therapy at nighttime. Osteoarthritis Parkinson disease Polyuria Type 2 diabetes mellitus Surgical History Surgical History History of bilateral knee arthroplasty History of hysterectomy History of sinus surgery Family History Family History Grandparent Diabetes mellitus Acute myocardial infarction Father Acute myocardial infarction Mother Acute myocardial infarction Social History Social History Social History: Surrogate decision maker: Fly Rondon, . Code status: Full code. Smoking packs per day: 1 Smoking cigarettes per day: 20.0 Years smoked: 40 Smoking pack-years: 40.00 Smoking status: Former smoker Alcohol intake: never Substance use: never Substance use type: does not use Has the Lack of Transportation Kept You From Medical Appointments or From Getting Medications?: No Within the Past 12 Months, Were You Worried Whether Your Food Would Run Out Before You Got Money to Buy More?: Never True What is Your Housing Situation Today?: I Have Housing Are You Worried That in the Next 2 Months, You May Not Have Your Own Housing to Live In?: No Do You Have Trouble Paying Your Heating Or Electricity Bill?: No Do You Have Trouble Paying For Medicines?: No Are You Currently Unemployed and Looking for Work?: No Highest Level of Education Completed: High School Diploma/GED Do You Have Trouble With Childcare or the Care of a Family Member?: No Additional living arrangements comments: Resides in [place] with her . Gender identity (if verbalized by the patient): Female Spiritual
[2021-12-12 10:54] LABS: Anion Gap 17 mmol/L (8-16); Blood Urea Nitrogen 64 mg/dL (7-17); Calcium 8.9 mg/dL (8.4-10.2); Carbon Dioxide 24 mmol/L (22-30); Chloride 90 mmol/L (98-107); Estimated CRCL calculation 25 ml/min; Estimated Glomerular Filt Rate 20; Glucose 157 mg/dL (65-110); Potassium 5.5 mmol/L (3.4-5.0); Sodium 131 mmol/L (137-145)
[2021-12-12 11:04] LABS: Appearance Urine Clear (Clear); Bilirubin Urine Negative (Negative); Blood Urine Negative (Negative); Color Urine Yellow (Yellow); Glucose Urine UA Trace mg/dL (Negative); Ketones Urine Negative (Negative); Leukocyte Esterase Ur 1+ LEU/UL (Negative); Nitrate Urine Negative (Negative); Protein Urine 1+ mg/dL (Negative); Specific Grav Ur 1.015 (1.001-1.035); Urobilinogen Urine 0.2 mg/dL (<2.0); pH Urine 5.5 (5.0-9.0)
--- NOTE | 2021-12-12 11:28 | WPDCNINT ---
Assessment and Plan Assessment and plan (1) Bradycardia: Code(s): R00.1 - Bradycardia, unspecified Status: Acute Assessment and Plan: Patient presented with generalized weakness, shortness of breath, was found to have bradycardia, was given atropine in the ER improvement in heart rate, and was started on dopamine infusion -patient is on Coreg at home and was given calcium gluconate, glucagon -appreciate cardiology evaluation recommendation -hold Coreg and all AV kevin blocking agents -place pacer pads on patient (2) Chronic kidney disease, stage 3: Qualifiers: Chronic kidney disease stage 3 subtype: stage 3a (GFR 45-59) Qualified Code(s): N18.31 - Chronic kidney disease, stage 3a Code(s): N18.30 - Chronic kidney disease, stage 3 unspecified Status: Acute Assessment and Plan: Chronic kidney disease stage III -baseline creatinine on 08/27/2021 was 1.8 -could be related to possible UTI, MANISH-inhibitor, diuretics, hypovolemia, bradycardia -patient received IV fluids in the ER - gentle hydration with NS @ 50 ml/hr for 1000 ml (3) Neuropathy: Code(s): G62.9 - Polyneuropathy, unspecified Status: Acute Assessment and Plan: continue gabapentin (4) Generalized weakness: Code(s): R53.1 - Weakness Status: Acute Assessment and Plan: likely due to bradycardia, NESHA on CKD, possible UTI -will have PT OT follow the patient once she is off dopamine infusion (5) Type 2 diabetes mellitus: Qualifiers: 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 use Diabetes mellitus complication status: without complication Qualified Code(s): E11.9 - Type 2 diabetes mellitus without complications; 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.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 Code(s): E11.9 - Type 2 diabetes mellitus without complications Status: Acute Assessment and Plan: Accu-Cheks and sliding scale insulin (6) Parkinson disease: Code(s): G20 - Parkinson's disease Status: Acute Assessment and Plan: Continue carbidopa levodopa (7) Electrolyte abnormality: Code(s): E87.8 - Other disorders of electrolyte and fluid balance, not elsewhere classified Status: Acute Assessment and Plan: Hyperkalemia likely related to acute on chronic kidney disease, MANISH-inhibitor and diuretics at home -will treat hyperkalemia with Lokelma -gentle hydration Plan DVT prophylaxis: Heparin subQ Stress ulcer prophylaxis: Not applicable Nutrition: Full liquid diet with fluid restriction Discussed with patient and and updated them with patient's condition and plan of care. She requested to be a full code Code Status: Full code Critical Care Time Spent: 44 minutes Due to a high probability of clinically significant, life threatening deterioration, the patient required my highest level of preparedness to intervene emergently and I personally spent this critical care time directly and personally managing the patient. This critical care time included obtaining a history; examining the patient; pulse oximetry; ordering and review of studies; arranging urgent treatment with development of a management plan; evaluation of patient's response to treatment; frequent reassessment; and discussions with other providers. It was exclusive of separately billable procedures and treating other patients and teaching time. Please see Assessment and Plan section and the rest of the note for further information on patient assessment and treatment Lapel Stitcher Consult Note Consult date: 12/12/21 Reason for consult: Bradycardia, generalized weakness HPI: Jenni Rondon is a 71 year old female with significant past medical history of chronic anemia, CKD stage 3, COPD, essential hypertension, hypothyroidism, neuropathy, Parkinson's disease, diabetes type 2, will recently discharged from [facility] on 12/11/2021 which she was being treated for heart fail
[2021-12-12 11:46] LABS: Budding Yeast Urine Present /hpf; Mucus Urine Rare /lpf; Squamous Epithelial Cell Urine Occasional /hpf (Few); WBC Clumps Urine Present /HPF; WBC Urine 16-20 /hpf
[2021-12-12 11:47] LABS: Add Urine Microscopic? YES
[2021-12-12] MEDS: CARBIDOPA/LEVODOPA 25/100 MG TABLET 3 TABLET PO ×2 (12:29→22:02)
[2021-12-12] MEDS: GABAPENTIN 100 MG CAPSULE PO ×2 (12:29→17:08)
[2021-12-12] MEDS: SODIUM ZIRCONIUM CYCLOSILICATE 10 GM POWD.PACK PO (12:29)
[2021-12-12] MEDS: TOPIRAMATE 100 MG TABLET PO ×2 (12:29→20:39)
[2021-12-12] MEDS: ACETAMINOPHEN 325 MG TABLET 650 MG PO ×2 (12:30→20:39)
[2021-12-12 12:41] LABS: Glucose Point of Care 159 mg/dl (65-105)
[2021-12-12] MEDS: ALBUTEROL SULFATE NEB 2.5 MG/3 ML INH INHALATION ×3 (13:38→19:54)
[2021-12-12] MEDS: IPRATROPIUM BR 0.02% INH SOLN 0.5 MG/2.5 ML VIAL INHALATION ×3 (13:38→19:55)
[2021-12-12] MEDS: SODIUM CHLORIDE 0.9% IV 1,000 ML 50 ML IV CONT (13:47)
[2021-12-12] MEDS: CENTRAL LINE FLUSH 10 ML IV PUSH ×2 (13:48→22:02)
--- NOTE | 2021-12-12 16:25 | PM.IMHP ---
H&P: HPI History of Present Illness Date/Time: 12/12/21 16:25 Chief Complaint: Hypotension and bradycardia Narrative: As per ICU note Jenni Rondon is a 71 year old female? with significant past medical history of chronic anemia, CKD stage 3, COPD, essential hypertension, hypothyroidism, neuropathy, Parkinson's disease, diabetes type 2, will recently discharged from [facility] on 12/11/2021 which she was being treated for heart failure exacerbation.? After she was discharged a few hours later she started becoming lightheaded and dizzy, did not lose any consciousness, she did feel like she would fall but did not have a fall.? Patient presented the ED on 12/12/2021 was noted to be bradycardic and complained of shortness of breath.? Patient blood pressure dropped down to 70s over 40s and was given 1 mg of atropine with improvement in heart rate and symptoms.? Patient was also given IV fluids and glucagon since she is on Coreg which she took close to 1:00 a.m. night before admission.? Patient was started on dopamine the ER and transferred to the ICU for further management. Pt currently on a dopamine drip Pt admitted to ICU for low BP and heart rate Pt seen by ICU MD and cardiology MD pt is with pacer pads in icu pt had calcium gluconate, glucagon in icu to stabilize patient Review of Systems Review of Systems: Fatigue tired lightheadedness some SOB No chest pain PMFSH Past Medical History Medical History Anxiety BMI greater than 40 Chronic anemia Chronic kidney disease, stage 3 Baseline creatinine ranges between 1.2 and 1.50. Chronic obstructive pulmonary disease Depression Gastroesophageal reflux disease GI bleed (~01/2010) Secondary to peptic ulcer. Hyperlipidemia Hypertension Hypothyroidism Kidney stones Left shoulder pain Neuropathy Obstructive sleep apnea Patient does not use PAP therapy at nighttime. Osteoarthritis Parkinson disease Polyuria Type 2 diabetes mellitus Surgical History Surgical History History of bilateral knee arthroplasty History of hysterectomy History of sinus surgery Family History Family History Grandparent Diabetes mellitus Acute myocardial infarction Father Acute myocardial infarction Mother Acute myocardial infarction Social History Social History Social History: Surrogate decision maker: Fly Rondon, . Code status: Full code. Smoking packs per day: 1 Smoking cigarettes per day: 20.0 Years smoked: 40 Smoking pack-years: 40.00 Smoking status: Former smoker Alcohol intake: never Substance use: never Substance use type: does not use Has the Lack of Transportation Kept You From Medical Appointments or From Getting Medications?: No Within the Past 12 Months, Were You Worried Whether Your Food Would Run Out Before You Got Money to Buy More?: Never True What is Your Housing Situation Today?: I Have Housing Are You Worried That in the Next 2 Months, You May Not Have Your Own Housing to Live In?: No Do You Have Trouble Paying Your Heating Or Electricity Bill?: No Do You Have Trouble Paying For Medicines?: No Are You Currently Unemployed and Looking for Work?: No Highest Level of Education Completed: High School Diploma/GED Do You Have Trouble With Childcare or the Care of a Family Member?: No Additional living arrangements comments: Resides in [place] with her . Gender identity (if verbalized by the patient): Female Spiritual care concerns: No Meds Home Medications and Allergies Home Medications Medication Instructions Recorded Confirmed Type albuterol sulfate 90 mcg/actuation 2 puff inhalation DAILY PRN 12/10/19 12/12/21 History aerosol inhaler Shortness Of Breath atorv
[2021-12-12 17:15] LABS: Glucose Point of Care 157 mg/dl (65-105)
[2021-12-12] MEDS: DOPamine 400 MG/D5W 250 ML 400 MG/250 ML BAG 23.38 MG IV CONT (17:50)
[2021-12-12 20:21] LABS: Glucose Point of Care 186 mg/dl (65-105)
[2021-12-12] MEDS: HEPARIN SODIUM 5,000 UNITS/ML VIAL 5000 UNITS SUB-Q (20:39)
[2021-12-13] VITALS (29 sets, daily range): BP systolic 104–193; BP diastolic 39–99; PULSE 47–74; RESP 13–28; TEMP 37.4–38.8; O2SAT 90–100
--- NOTE | 2021-12-13 | ECHO_ITS ---
Patient Info Name: Jenni Rondon Age: 71 years : 1950 Gender: Female Ht: 63 in Wt: 277 lbs BSA: 2.44 m2 HR: 62 bpm BP: 157 / 56 mmHg Heart Rhythm: Sinus Rhythm Technical Quality: Poor Exam Date: 12/13/2021 12:21 PM Exam Location: [facility] Pulmonary Exam Room: ICU 2 Patient Status: Inpatient Admit Date: 12/12/2021 Staff Ordering Physician: Debbie Stoner MD Diamond Cleaner: Amy Douglas RDCS Attending Provider: Cole Madden MD Exam Type: CA echo dop color flow w con Study Info Complete two-dimensional, color flow and Doppler transthoracic echocardiogram is performed with contrast to opacify the left ventricle and to improve the deliniation of the left ventricle endocardial borders. Contrast/Agitated Saline Contrast/Ag. Saline: Definity Amount: 2.00 ml Administered By: Amy Douglas [facility] Existing IV Access: Yes IV Access Condition: patent with no signs of infiltration Reason for Poor Study: patient body habitus Summary 1. Left ventricular systolic function is normal, estimated at 60-65%. 2. Left ventricular chamber dimension is mildly enlarged. 3. The left ventricular diastolic function is grade I diastolic dysfunction. 4. Left atrial chamber dimension is severely enlarged. 5. Right atrial chamber dimension is moderately enlarged. 6. There is mild tricuspid valve regurgitation. Left Ventricle Left ventricular chamber dimension is mildly enlarged. Left ventricular systolic function is normal, estimated at 60-65%. There is no increased left ventricular wall thickness. The left ventricular diastolic function is grade I diastolic dysfunction. Right Ventricle Right ventricular chamber dimension is normal. Left Atria Left atrial chamber dimension is severely enlarged. Right Atria Right atrial chamber dimension is moderately enlarged. Atrial Septum Intact interatrial septum visualized by color flow imaging. Aortic Valve The aortic valve is not well visualized. There is no aortic valve stenosis. There is no aortic valve regurgitation. Pulmonic Valve The pulmonic valve is not well visualized. Mitral Valve The mitral valve has normal leaflets. There is no mitral valve stenosis. There is trace mitral valve regurgitation. Tricuspid Valve The tricuspid valve leaflets are not well visualized. There is mild tricuspid valve regurgitation. Pericardium/Pleural There is no pericardial effusion. Inferior Vena Cava Dilated inferior vena cava with >50% collapse upon inspiration consistent with normal right atrial pressure, 8 mmHg. Left Ventricular Outflow Tract Name Value Normal LVOT 2D LVOT Diameter 1.99 cm LVOT Doppler LVOT Peak Gradient 8 mmHg LVOT Mean Gradient 5 mmHg LVOT VTI 36.02 cm LVOT VTI/AV VTI Ratio 0.93 LVOT Stroke Volume 111.80 ml LVOT CO 20.14 l/min LVOT CI 8.25 L/min/m2 Pulmonic Valve --
[2021-12-13] MEDS: ONDANSETRON INJ 4 MG/2 ML VIAL IV PUSH ×2 (00:32→06:32)
[2021-12-13] MEDS: DOPamine 400 MG/D5W 250 ML 400 MG/250 ML BAG 35.07 MG IV CONT (00:35)
[2021-12-13] MEDS: IPRATROPIUM BR 0.02% INH SOLN 0.5 MG/2.5 ML VIAL INHALATION ×5 (00:45→20:57)
[2021-12-13] MEDS: ALBUTEROL SULFATE NEB 2.5 MG/3 ML INH INHALATION ×5 (00:45→20:57)
[2021-12-13] MEDS: CENTRAL LINE FLUSH 10 ML IV PUSH ×3 (05:21→21:08)
[2021-12-13 05:28] LABS: Basophils Absolute Auto 0.1 K/mm3 (0.0-0.1); Basophils Percent Auto 0.5 % (0.2-1.2); Eosinophils Absolute Auto 0.1 K/mm3 (0-0.3); Eosinophils Percent Auto 0.9 % (0-4.4); Hemoglobin 9.8 g/dL (12.0-15.0); Immature Granulocyte Absolute 0.02 K/mm3 (0.00-0.031); Immature Granulocyte Percent A 0.2 % (0-0.5); Lymphocytes Absolute Auto 0.91 K/mm3 (0.9-3.2); Lymphocytes Percent Auto 7.8 % (18.3-44.2); Mean Corpuscular HGB Conc 31.6 g/dl (32-36); Mean Corpuscular Hemoglobin 31.2 pg (26-34); Mean Corpuscular Volume 98.7 fl (80-100); Mean Platelet Volume 11.1 fl (7.4-10.4); Monocytes Absolute Auto 1.1 K/mm3 (0.1-0.6); Monocytes Percent Auto 9.6 % (2.6-8.5); Neutrophils Absolute Auto 9.5 K/mm3 (1.3-6.7); Platelet Count Result 251 k/mm3 (150-375); Red Blood Count 3.14 M/mm3 (4.2-5.4); Red Cell Distribution Width 14.4 % (11.5-14.5); White Blood Count 11.7 K/mm3 (4.5-10.0)
[2021-12-13 05:34] LABS: Lactic Acid Reflex 0.7 mmol/L (0.7-2.0)
[2021-12-13 05:35] LABS: INR 1.1; Prothrombin Time 13.4 Seconds (11.1-14.7)
[2021-12-13 05:37] LABS: Partial Thromboplastin Time 28.9 SECONDS (22.3-36.8)
[2021-12-13 06:02] LABS: Alanine Aminotransferase 8 U/L (6-35); Albumin Level 4.3 g/dL (3.5-5.1); Alkaline Phosphatase 183 U/L (38-126); Anion Gap 11 mmol/L (8-16); Aspartate Amino Transferase 18 U/L (14-36); Bilirubin,Total 0.5 mg/dL (0.2-1.3); Blood Urea Nitrogen 51 mg/dL (7-17); Calcium 9.3 mg/dL (8.4-10.2); Carbon Dioxide 23 mmol/L (22-30); Chloride 99 mmol/L (98-107); Estimated CRCL calculation 31 ml/min; Estimated Glomerular Filt Rate 26; Glucose 206 mg/dL (65-110); Magnesium 2.6 mg/dL (1.6-2.3); Phosphorus 4.8 mg/dL (2.5-4.5); Potassium 5.2 mmol/L (3.4-5.0); Sodium 133 mmol/L (137-145)
[2021-12-13 06:03] LABS: Thyroid Stimulating Hormone 0.486 uIU/mL (0.465-4.680)
[2021-12-13] MEDS: CARBIDOPA/LEVODOPA 25/100 MG TABLET 3 TABLET PO ×3 (06:29→21:07)
[2021-12-13] MEDS: DOPamine 400 MG/D5W 250 ML 400 MG/250 ML BAG 46.76 MG IV CONT (06:35)
[2021-12-13 07:33] LABS: Glucose Point of Care 176 mg/dl (65-105)
[2021-12-13] MEDS: GABAPENTIN 100 MG CAPSULE PO ×3 (08:41→18:32)
[2021-12-13] MEDS: TOPIRAMATE 100 MG TABLET PO ×2 (08:42→21:07)
[2021-12-13] MEDS: HEPARIN SODIUM 5,000 UNITS/ML VIAL 5000 UNITS SUB-Q ×2 (08:42→21:08)
--- NOTE | 2021-12-13 09:02 | ECG_ITS ---
Measurements Intervals Taylor Rate: 64 P: MI: 0 QRS: 29 QRSD: 90 T: 92 QT: 389 QTc: 403 Interpretive Statements SINUS OR ECTOPIC ATRIAL RHYTHM ATRIAL COUPLET AND ATRIAL PREMATURE COMPLEXES LOW QRS VOLTAGE IN PRECORDIAL LEADS NONSPECIFIC ST & T-WAVE ABNORMALITY- HIGH LATERAL LEADS BASELINE ARTIFACT- I, II, III, AVR, AVL, AVF, V5 ABNORMAL ECG COMPARED TO ECG 12/12/2021 11:16:14 SINUS OR ECTOPIC ATRIAL RHYTHM Electronically Signed On 12-13-2021 10:56:16 CDT by Calin Fernandez D.O.
--- NOTE | 2021-12-13 09:58 | PM.PNCARD ---
Progress Note: A&P Assessment and Plan (1) Bradycardia: Code(s): R00.1 - Bradycardia, unspecified Status: Acute Assessment and Plan: ECG appears to be junctional bradycardia. Hold her Coreg and any other AV kevin blocking agents. Continue Dopamine drip for now. Wean off dopamine as tolerated by hemodynamics. Waiting on records from her recent [facility] hospitalization. Keep electrolytes optimized. Patient should be wearing CPAP whenever sleeping. Obtain daily ECGs. Will obtain a TTE here. Subjective Date/time seen: 12/13/21 09:58 Interval history: Reason for visit: Junctional bradycardia Patient states she feels a bit better this AM. Remains on Dopamine. HR in the 50s-60s this AM. Remains hemodynamically stable. Still waiting on records from [facility]. Review of Systems Review of Systems: 8-point ROS obtained. Negative, unless stated in HPI. Exam Const: General: comfortable and no acute distress Other: Morbidly obese HENMT: Mouth: Yes moist mucous membranes Eyes: General: appearance normal, both eyes and all related structures Neck: Neck: supple and no JVD Resp: Effort & Inspection: normal respiratory effort Auscultation: diminished lung sounds Cardio: Rate: bradycardic Rhythm: abnormal rhythm irregularly irregular GI: GI Palp: Yes Soft to palpation and No Tenderness to palpation present (GI) Skin: General skin exam: normal color Neuro: Speech: normal speech Extrem: General: no edema Psych: Mental Status: mental status grossly normal Affect: normal affect Objective Data Vital Signs Vital Signs: Vital Signs - 24 hr 12/12/21 10:22 12/12/21 13:39 12/12/21 13:41 Temperature Pulse Rate 35 L 61 Respiratory Rate 17 Blood Pressure 72/53 L Pulse Oximetry 96 Oxygen Delivery Nasal Cannula Oxygen Flow Rate 2 12/12/21 13:52 12/12/21 14:00 12/12/21 10:00 Temperature Pulse Rate 62 57 L 53 L Respiratory Rate 18 16 Blood Pressure 148/51 H Pulse Oximetry 98 Oxygen Delivery Oxygen Flow Rate 12/12/21 12:00 12/12/21 14:00 12/12/21 10:00 Temperature 37.2 C 37.6 C H Pulse Rate 57 L 56 L 53 L Respiratory Rate 20 18 Blood Pressure 135/48 L 123/65 Pulse Oximetry 98 97 Oxygen Delivery Oxygen Flow Rate 12/12/21 12:00 12/12/21 12:00 12/12/21 16:00 Temperature 37.5 C Pulse Rate 46 L 52 L Respiratory Rate 23 H Blood Pressure 140/63 Pulse Oximetry 98 97 Oxygen Delivery Nasal Cannula Oxygen Flow Rate 2 12/12/21 16:00 12/12/21 16:28 12/12/21 16:34 Temperature Pulse Rate 60 50 L Respiratory Rate 19 25 H Blood Pressure Pulse Oximetry 97 Oxygen Delivery Nasal Cannula Oxygen Flow Rate 2 12/12/21 17:50 12/12/21 17:52 12/12/21 18:00 Temperature 37.6 C H Pulse Rate 47 L 49 L 63 Respiratory Rate 20 Blood Pressure 124/48 L 124/48 L 142/52 H Pulse Oximetry 95 Oxygen Delivery Oxygen Flow Rate 12/12/21 16:00 12/12/21 18:00 12/12/21 19:55 Temperature Pulse Rate 40 L 51 L 55 L Respiratory Rate 18 Blood Pressure Pulse Oximetry Oxygen Delivery Oxygen Flow Rate 12/12/21 19:56 12/12/21 20:11 12/12/21 20:00 Temperature 37.7 C H Pulse Rate 65 72 Respiratory Rate 22 H 21 H Blood Pressure 130/51 L Pulse Oximetry 96 97 Oxygen Delivery Nasal Cannula Oxygen Flow Rate 2 12/12/21 20:00 12/12/21 20:00 12/12/21 22:00 Temperature Pulse Rate 72 56 L 67 Respiratory Rate Blood Pressure 130/51 L Pulse Oximetry Oxygen Delivery Oxygen Flow Rate 12/12/21 22:00 12/12/21 20:00 12/13/21 00:35 Temperature 37.8 C H Pulse Rate 67 52 L Respiratory Rate 24 H Blood Pressure 124/97 H 136/83 Pulse Oximetry 95 96 Oxygen Delivery Nasal Cannula Oxygen Flow Rate 2 12/13/21 00:00 12/13/21 00:00 12/13/21 00:00 Temperature 37.8 C H Pulse Rate 58 L 60 Respiratory Rate 18 Blood Pressure 104/75 Pulse Oximetry 95 95 Oxygen D
[2021-12-13 12:03] LABS: Glucose Point of Care 189 mg/dl (65-105)
[2021-12-13] MEDS: SODIUM ZIRCONIUM CYCLOSILICATE 10 GM POWD.PACK PO (12:09)
[2021-12-13] MEDS: PERFLUTREN LIPID MICROSPHERES 1.5 ML VIAL DILUTED TO 10 ML TOTAL VOLUME IV PUSH (12:40)
--- NOTE | 2021-12-13 14:29 | WPDINTPN ---
Progress Note: A&P Assessment and Plan (1) Bradycardia: Code(s): R00.1 - Bradycardia, unspecified Status: Acute Assessment and Plan: Patient presented with generalized weakness, shortness of breath, was found to have bradycardia, was given atropine in the ER improvement in heart rate, and was started on dopamine infusion -patient is on Coreg at home and was given calcium gluconate, glucagon -appreciate cardiology evaluation recommendation -hold Coreg and all AV kevin blocking agents -place pacer pads on patient -obtain echo (2) Chronic kidney disease, stage 3: Qualifiers: Chronic kidney disease stage 3 subtype: stage 3a (GFR 45-59) Qualified Code(s): N18.31 - Chronic kidney disease, stage 3a Code(s): N18.30 - Chronic kidney disease, stage 3 unspecified Status: Acute Assessment and Plan: Chronic kidney disease stage III -baseline creatinine on 08/27/2021 was 1.8 -could be related to possible UTI, MANISH-inhibitor, diuretics, hypovolemia, bradycardia -patient received IV fluids in the ER -patient was hydrated gently with improvement in urine output and renal function (3) Neuropathy: Code(s): G62.9 - Polyneuropathy, unspecified Status: Acute Assessment and Plan: continue gabapentin (4) Generalized weakness: Code(s): R53.1 - Weakness Status: Acute Assessment and Plan: likely due to bradycardia, NESHA on CKD, possible UTI -will have PT OT follow the patient once she is off dopamine infusion (5) Type 2 diabetes mellitus: Qualifiers: Diabetes mellitus assisted insulin use: with support merchandiser use Diabetes mellitus complication status: without complication Qualified Code(s): E11.9 - Type 2 diabetes mellitus without complications; Z79.4 - prison (current) use of insulin Code(s): E11.9 - Type 2 diabetes mellitus without complications Status: Acute Assessment and Plan: Accu-Cheks and sliding scale insulin (6) Parkinson disease: Code(s): G20 - Parkinson's disease Status: Acute Assessment and Plan: Continue carbidopa levodopa (7) Electrolyte abnormality: Code(s): E87.8 - Other disorders of electrolyte and fluid balance, not elsewhere classified Status: Acute Assessment and Plan: Hyperkalemia likely related to acute on chronic kidney disease, MANISH-inhibitor and diuretics at home -will treat hyperkalemia with Lokelma (8) UTI (urinary tract infection): Code(s): N39.0 - Urinary tract infection, site not specified Status: Acute Assessment and Plan: Continue ceftriaxone -urine cultures are pending -blood cultures negative x2 Plan DVT prophylaxis: Heparin subQ Stress ulcer prophylaxis: Not applicable Nutrition: Full liquid diet with fluid restriction Discussed with patient and and updated them with patient's condition and plan of care. She requested to be a full code Code Status: Full code Critical Care Time Spent: 32 minutes Due to a high probability of clinically significant, life threatening deterioration, the patient required my highest level of preparedness to intervene emergently and I personally spent this critical care time directly and personally managing the patient. This critical care time included obtaining a history; examining the patient; pulse oximetry; ordering and review of studies; arranging urgent treatment with development of a management plan; evaluation of patient's response to treatment; frequent reassessment; and discussions with other providers. It was exclusive of separately billable procedures and treating other patients and teaching time. Please see Assessment and Plan section and the rest of the note for further information on patient assessment and treatment Subjective Date/time seen: 12/13/21 14:29 Interval history: Reason for consult: Generalized weakness and bradycardia 12/13/2021: Patient seen and examined the
[2021-12-13 16:26] LABS: Glucose Point of Care 156 mg/dl (65-105)
[2021-12-13] MEDS: ACETAMINOPHEN 325 MG TABLET 650 MG PO (18:31)
[2021-12-13] MEDS: PRIMIDONE 50 MG TABLET PO (18:32)
[2021-12-13 21:23] LABS: Glucose Point of Care 128 mg/dl (65-105)
[2021-12-14] VITALS (22 sets, daily range): BP systolic 125–187; BP diastolic 44–95; PULSE 52–76; RESP 12–22; TEMP 36.4–37.4; O2SAT 91–100
--- NOTE | 2021-12-14 00:11 | PCRCNOTE ---
Apnea link ordered for last night (12/13/21) cannot be completed as patient is too confused and anxious. Patient was repeatedly asking where her was, then asked RT to remove breathing treatment before it was complete, stating she was scared. Therapist tried to reassure patient, stating everything was okay. Patient did not wish to complete breathing treatment.
[2021-12-14] MEDS: CENTRAL LINE FLUSH 10 ML IV PUSH ×3 (05:52→20:06)
[2021-12-14] MEDS: CARBIDOPA/LEVODOPA 25/100 MG TABLET 3 TABLET PO ×3 (05:57→21:21)
[2021-12-14] MEDS: ACETAMINOPHEN 325 MG TABLET 650 MG PO (05:57)
[2021-12-14 06:07] LABS: Basophils Absolute Auto 0.1 K/mm3 (0.0-0.1); Basophils Percent Auto 0.7 % (0.2-1.2); Eosinophils Absolute Auto 0.2 K/mm3 (0-0.3); Eosinophils Percent Auto 3.2 % (0-4.4); Hemoglobin 8.4 g/dL (12.0-15.0); Immature Granulocyte Absolute 0.03 K/mm3 (0.00-0.031); Immature Granulocyte Percent A 0.4 % (0-0.5); Lymphocytes Absolute Auto 0.86 K/mm3 (0.9-3.2); Lymphocytes Percent Auto 11.4 % (18.3-44.2); Mean Corpuscular Hemoglobin 30.7 pg (26-34); Mean Corpuscular Volume 102.2 fl (80-100); Mean Platelet Volume 11.5 fl (7.4-10.4); Monocytes Absolute Auto 0.9 K/mm3 (0.1-0.6); Monocytes Percent Auto 11.8 % (2.6-8.5); Neutrophils Absolute Auto 5.5 K/mm3 (1.3-6.7); Neutrophils Percent Auto 72.5 % (45.5-73.1); Platelet Count Result 201 k/mm3 (150-375); Red Blood Count 2.74 M/mm3 (4.2-5.4); Red Cell Distribution Width 14.6 % (11.5-14.5); White Blood Count 7.5 K/mm3 (4.5-10.0)
[2021-12-14 06:09] LABS: Alanine Aminotransferase 7 U/L (6-35); Albumin Level 3.8 g/dL (3.5-5.1); Alkaline Phosphatase 145 U/L (38-126); Anion Gap 9 mmol/L (8-16); Aspartate Amino Transferase 16 U/L (14-36); Bilirubin,Total 0.4 mg/dL (0.2-1.3); Blood Urea Nitrogen 36 mg/dL (7-17); Calcium 8.4 mg/dL (8.4-10.2); Carbon Dioxide 23 mmol/L (22-30); Chloride 104 mmol/L (98-107); Estimated CRCL calculation 31 ml/min; Estimated Glomerular Filt Rate 26; Glucose 130 mg/dL (65-110); Magnesium 2.5 mg/dL (1.6-2.3); Phosphorus 3.9 mg/dL (2.5-4.5); Potassium 4.5 mmol/L (3.4-5.0); Sodium 136 mmol/L (137-145)
--- NOTE | 2021-12-14 08:18 | WPDINTPN ---
Progress Note: A&P Assessment and Plan (1) Bradycardia: Code(s): R00.1 - Bradycardia, unspecified Status: Acute Assessment and Plan: Patient presented with generalized weakness, shortness of breath, was found to have bradycardia, was given atropine in the ER improvement in heart rate, she was started on dopamine infusion on admission -patient is on Coreg at home and was given calcium gluconate, glucagon -appreciate cardiology evaluation and recommendation -hold Coreg and all AV kevin blocking agents -place pacer pads on patient -currently off dopamine infusion since 12/13/2021 with 4:00 p.m. 12/13/2021 echocardiogram showed LV systolic function to be 60-65%, LV chamber mildly enlarged, grade 1 diastolic dysfunction, LA severely enlarged, on a moderately enlarged, mild tricuspid valve regurg (2) Chronic kidney disease, stage 3: Qualifiers: Chronic kidney disease stage 3 subtype: stage 3a (GFR 45-59) Qualified Code(s): N18.31 - Chronic kidney disease, stage 3a Code(s): N18.30 - Chronic kidney disease, stage 3 unspecified Status: Acute Assessment and Plan: Chronic kidney disease stage III -baseline creatinine on 08/27/2021 was 1.8 -could be related to possible UTI, MANISH-inhibitor, diuretics, hypovolemia, bradycardia -patient received IV fluids in the ER -patient was hydrated gently with improvement in urine output and renal function (3) Neuropathy: Code(s): G62.9 - Polyneuropathy, unspecified Status: Acute Assessment and Plan: continue gabapentin (4) Generalized weakness: Code(s): R53.1 - Weakness Status: Acute Assessment and Plan: likely due to bradycardia, NESHA on CKD, possible UTI -PT/OT to evaluate the patient (5) Type 2 diabetes mellitus: Qualifiers: Diabetes mellitus salvage determiner insulin use: with salvage determiner use Diabetes mellitus complication status: without complication Qualified Code(s): E11.9 - Type 2 diabetes mellitus without complications; Z79.4 - group home (current) use of insulin Code(s): E11.9 - Type 2 diabetes mellitus without complications Status: Acute Assessment and Plan: Accu-Cheks and sliding scale insulin (6) Parkinson disease: Code(s): G20 - Parkinson's disease Status: Acute Assessment and Plan: Continue carbidopa levodopa (7) Electrolyte abnormality: Code(s): E87.8 - Other disorders of electrolyte and fluid balance, not elsewhere classified Status: Acute Assessment and Plan: Hyperkalemia likely related to acute on chronic kidney disease, MANISH-inhibitor and diuretics at home -potassium levels have normalized a treatment with Lokelma (8) UTI (urinary tract infection): Code(s): N39.0 - Urinary tract infection, site not specified Status: Acute Assessment and Plan: Continue ceftriaxone -urine cultures are negative -blood cultures negative x2 12/14/2021: Patient has been febrile overnight, will obtain bilateral lower extremity venous Doppler Plan DVT prophylaxis: Heparin subQ Stress ulcer prophylaxis: Not applicable Nutrition: Diabetic and heart healthy diet Discussed with patient and and updated them with patient's condition and plan of care. She requested to be a full code Code Status: Full code Critical Care Time Spent: 32 minutes Patient may be able to transfer out of the ICU today Due to a high probability of clinically significant, life threatening deterioration, the patient required my highest level of preparedness to intervene emergently and I personally spent this critical care time directly and personally managing the patient. This critical care time included obtaining a history; examining the patient; pulse oximetry; ordering and review of studies; arranging urgent treatment with development of a management plan; evaluation of patient's response to treatment; frequent reassessment; and discussions with oth
[2021-12-14] MEDS: PRIMIDONE 50 MG TABLET PO ×2 (09:11→16:24)
[2021-12-14] MEDS: GABAPENTIN 100 MG CAPSULE PO ×3 (09:11→16:23)
[2021-12-14] MEDS: TOLNAFTATE 1% POWDER 45 GM BTL 1 APPLIC TOPICAL ×2 (09:11→20:04)
[2021-12-14] MEDS: TOPIRAMATE 100 MG TABLET PO ×2 (09:11→20:06)
[2021-12-14] MEDS: HEPARIN SODIUM 5,000 UNITS/ML VIAL 5000 UNITS SUB-Q ×2 (09:11→20:05)
[2021-12-14 09:19] LABS: Glucose Point of Care 151 mg/dl (65-105)
[2021-12-14] MEDS: ALBUTEROL SULFATE NEB 2.5 MG/3 ML INH INHALATION ×3 (09:51→20:00)
[2021-12-14] MEDS: IPRATROPIUM BR 0.02% INH SOLN 0.5 MG/2.5 ML VIAL INHALATION ×3 (09:51→20:00)
--- NOTE | 2021-12-14 10:48 | PCOTNOTE ---
Attempted to see pt. for occupational therapy evaluation. Pt. currently getting ultrasound, unable to be see for evaluation at this time.
--- NOTE | 2021-12-14 11:16 | PCPTNOTE ---
Attempted PT evaluation, per RN, they are waiting on test results from US. RN recommended waiting until report is read prior to PT. Will Follow.
--- NOTE | 2021-12-14 11:33 | ECG_ITS ---
Measurements Intervals [place] Rate: 60 P: 62 WA: 196 QRS: 1 QRSD: 88 T: 52 QT: 429 QTc: 431 Interpretive Statements SINUS RHYTHM NORMAL ECG COMPARED TO ECG 12/13/2021 09:51:53 SINUS RHYTHM NOW PRESENT Electronically Signed On 12-14-2021 15:56:07 CDT by Calin Fernandez D.O.
--- NOTE | 2021-12-14 12:14 | PM.PNCARD ---
Progress Note: A&P Assessment and Plan (1) Bradycardia: Code(s): R00.1 - Bradycardia, unspecified Status: Acute Assessment and Plan: ECG on presentation showed junctional bradycardia. Has been off of Dopamine since 12/13, and is maintaining sinus rhythm. Returned to sinus rhythm with removal of beta isabelle. [facility]' records were obtained: Patient was admitted there for a diastolic heart failure exacerbation. Was on Coreg, however, she has no history of atrial fibrillation or reduced LVEF or any other strong indication for taking beta-blockers. She was on Coreg for high blood pressure. Echo done here 12/13 and looks okay as well. Patient should be wearing CPAP whenever sleeping. Will likely need her diuretic restarted to maintain euvolemia. Patient should not receive beta isabelle or other AV kevin blocking agents in the future for now. Upon discharge, would send patient home with an event monitor. Subjective Date/time seen: 12/14/21 12:14 Interval history: Reason for visit: Bradycardia Patient is now in sinus rhythm. BP is better. Off of Dopamine since yesterday. No chest pain, shortness of breath, or lightheadedness/dizziness Reports anxiety. Review of Systems Review of Systems: 8-point ROS obtained. Negative, unless stated in HPI. Exam Const: General: comfortable and no acute distress Other: Morbidly obese HENMT: Mouth: Yes moist mucous membranes Eyes: General: appearance normal, both eyes and all related structures Neck: Neck: supple and no JVD Resp: Effort & Inspection: normal respiratory effort Auscultation: diminished lung sounds Cardio: Rate: regular rate Rhythm: regular rhythm GI: GI Palp: Yes Soft to palpation and No Tenderness to palpation present (GI) Skin: General skin exam: normal color Neuro: Speech: normal speech Extrem: General: no edema Psych: Mental Status: mental status grossly normal Affect: normal affect Objective Data Vital Signs Vital Signs: Vital Signs - 24 hr 12/13/21 14:09 12/13/21 14:21 12/13/21 14:00 Temperature Pulse Rate 57 L 71 55 L Respiratory Rate 17 20 Blood Pressure Pulse Oximetry Oxygen Delivery Oxygen Flow Rate 12/13/21 16:00 12/13/21 14:00 12/13/21 16:00 Temperature 37.9 C H 38.2 C H Pulse Rate 65 55 L 63 Respiratory Rate 20 20 Blood Pressure 119/89 138/67 Pulse Oximetry 98 99 Oxygen Delivery Oxygen Flow Rate 12/13/21 18:31 12/13/21 18:00 12/13/21 16:00 Temperature 38.6 C H 38.7 C H Pulse Rate 64 Respiratory Rate 22 H Blood Pressure 143/39 H Pulse Oximetry 98 99 Oxygen Delivery Nasal Cannula Oxygen Flow Rate 2 12/13/21 18:00 12/13/21 19:31 12/13/21 20:57 Temperature 38.8 C H Pulse Rate 64 66 Respiratory Rate 17 Blood Pressure Pulse Oximetry Oxygen Delivery Oxygen Flow Rate 12/13/21 21:06 12/13/21 20:00 12/13/21 20:00 Temperature 38.8 C H Pulse Rate 67 64 67 Respiratory Rate 16 16 Blood Pressure 121/46 L Pulse Oximetry 90 Oxygen Delivery Oxygen Flow Rate 12/13/21 20:00 12/13/21 22:00 12/13/21 22:00 Temperature 38.1 C H Pulse Rate 72 72 Respiratory Rate 18 Blood Pressure 144/58 H Pulse Oximetry 95 93 Oxygen Delivery Nasal Cannula Oxygen Flow Rate 2 12/13/21 20:45 12/14/21 00:00 12/14/21 00:00 Temperature 37.2 C Pulse Rate 60 61 Respiratory Rate 13 Blood Pressure 125/56 L Pulse Oximetry 95 100 Oxygen Delivery Nasal Cannula Oxygen Flow Rate 2 12/14/21 00:00 12/14/21 02:00 12/14/21 02:00 Temperature 36.7 C Pulse Rate 55 L 55 L Respiratory Rate 13 Blood Pressure 144/73 H Pulse Oximetry 100 100 Oxygen Delivery Nasal Cannula Oxygen Flow Rate 2 12/14/21 04:00 12/14/21 04:00 12/14/21 04:00 Temperature 36.5 C Pulse Rate 52 L 55 L Respiratory Rate 12 Blood Pressure 149/76 H Pulse Oximetry 98 98 Oxygen Delivery Nasal Cannula Oxygen F
[2021-12-14] MEDS: ALPRAZolam (*CRX) 0.5 MG TABLET PO ×3 (12:31→17:16)
[2021-12-14] MEDS: rOPINIRole HCL 0.5 MG TABLET PO (12:31)
[2021-12-14 12:41] LABS: Glucose Point of Care 172 mg/dl (65-105)
[2021-12-14] MEDS: LOSARTAN POTASSIUM 25 MG TABLET PO (15:15)
[2021-12-14] MEDS: FLUoxetine HCL 20 MG CAPSULE 40 MG PO (16:23)
--- NOTE | 2021-12-14 16:54 | PM.IMPN ---
Progress Note: A&P Assessment and Plan (1) Bradycardia: Code(s): R00.1 - Bradycardia, unspecified Status: Acute Assessment and Plan: Patient presented with generalized weakness, shortness of breath, was found to have bradycardia, was given atropine in the ER improvement in heart rate, she was started on dopamine infusion on admission . Initially EKG with junctional bradycardia -patient is on Coreg at home and was given calcium gluconate, glucagon -appreciate cardiology evaluation and recommendation -hold Coreg and all AV kevin blocking agents -place pacer pads on patient -currently off dopamine infusion since 12/13/2021 with 4:00 p.m. echo on 12/13/2021: LV systolic function to be 60-65%, LV chamber mildly enlarged, grade 1 diastolic dysfunction, LA severely enlarged, on a moderately enlarged, mild tricuspid valve regurg (2) Chronic kidney disease, stage 3: Qualifiers: Chronic kidney disease stage 3 subtype: stage 3a (GFR 45-59) Qualified Code(s): N18.31 - Chronic kidney disease, stage 3a Code(s): N18.30 - Chronic kidney disease, stage 3 unspecified Status: Acute Assessment and Plan: NESHA on Chronic kidney disease stage III baseline creatinine 1.8 back from August admission creatinine 2.7 continues to improve -could be related to possible UTI, MANISH-inhibitor, diuretics, hypovolemia, bradycardia -patient received IV fluids in the ER -patient was hydrated gently with improvement in urine output and renal function (3) Neuropathy: Code(s): G62.9 - Polyneuropathy, unspecified Status: Acute Assessment and Plan: continue gabapentin (4) Generalized weakness: Code(s): R53.1 - Weakness Status: Acute Assessment and Plan: likely due to bradycardia, NESHA on CKD, possible UTI -PT/OT to evaluate the patient (5) Type 2 diabetes mellitus: Qualifiers: Diabetes mellitus moth exterminator insulin use: with prison use Diabetes mellitus complication status: without complication Qualified Code(s): E11.9 - Type 2 diabetes mellitus without complications; Z79.4 - senior living (current) use of insulin Code(s): E11.9 - Type 2 diabetes mellitus without complications Status: Acute Assessment and Plan: Accu-Cheks and sliding scale insulin (6) Parkinson disease: Code(s): G20 - Parkinson's disease Status: Acute Assessment and Plan: Continue carbidopa levodopa (7) Electrolyte abnormality: Code(s): E87.8 - Other disorders of electrolyte and fluid balance, not elsewhere classified Status: Acute Assessment and Plan: Hyperkalemia likely related to acute on chronic kidney disease, MANISH-inhibitor and diuretics at home -potassium levels have normalized a treatment with Lokelma (8) UTI (urinary tract infection): Code(s): N39.0 - Urinary tract infection, site not specified Status: Acute Assessment and Plan: Continue ceftriaxone -urine cultures are negative -blood cultures negative x2 venous duplex negative for DVT Was febrile 12/13/2021 Plan congestive heart failure diastolic on Bumex at home currently on hold Anemia chronic:No signs of bleedingLikely anemia chronic disease DVT prophylaxis: Heparin subQ Stress ulcer prophylaxis: Not applicable Nutrition: Diabetic and heart healthy diet Code Status: Full code Subjective Date/time seen: 12/14/21 16:54 Interval history: Patient presented with lightheadedness and dizzy right after discharge from [facility]. Noted to be bradycardic with hypotension requiring atropine. She was given some Hunter and also glucose: Since she was on Coreg. She was started on dopamine and was admitted to the ICU. 12/14/2021: Dopamine since yesterday. Sinus rhythm heart rate improved. she feels anxious, feels like she is going to . Denies any shortness of breath no chest pain Review of Systems Review of Systems: All systems reviewed & ar
[2021-12-14 17:13] LABS: Glucose Point of Care 110 mg/dl (65-105)
[2021-12-14] MEDS: OXcarbazepine 300 MG TABLET PO (17:48)
[2021-12-14] MEDS: PRAZOSIN HCL 5 MG CAPSULE PO (20:05)
[2021-12-14 20:33] LABS: Glucose Point of Care 128 mg/dl (65-105)
--- NOTE | 2021-12-14 21:30 | PC.NURSE ---
Pt to transfer to room 346. Staff offered to notify pt's spouse. Pt states that her son is autistic and her would be sleeping. States they know she is moving to another unit just unaware of the room number. Pt states she does not want to staff to call family because they will think I am . Pt will call family members tomorrow. Receiving unit made aware of pt request.
[2021-12-14] MEDS: SALINE 0.65% NAS SOLN 44 ML BTL 1 SPRAY NASAL (21:54)
--- NOTE | 2021-12-14 22:17 | PC.NURSE ---
This patient, Jenni Rondon, was transferred to [room 346 ] on 12/14/21 at 2153. Personal belongings sent with patient. Report given to [KODI Pappas ]. Appropriate documentation sent with patient.
--- NOTE | 2021-12-14 23:31 | PC.NURSE ---
Received as transfer from ICU, Telemetry placed and izquierdo patent, Pt is oriented times 1 only at this time, and has short term memory. Pt voices no c/o pain and no Nausea/vomiting.
[2021-12-15] VITALS (13 sets, daily range): BP systolic 128–148; BP diastolic 46–62; PULSE 56–78; RESP 16–20; TEMP 36.4–36.6; O2SAT 95–96
[2021-12-15] MEDS: ALPRAZolam (*CRX) 0.5 MG TABLET 1 MG PO ×5 (04:17→21:16)
[2021-12-15] MEDS: CENTRAL LINE FLUSH 10 ML IV PUSH ×3 (04:21→21:13)
[2021-12-15] MEDS: CARBIDOPA/LEVODOPA 25/100 MG TABLET 3 TABLET PO ×3 (04:21→21:12)
--- NOTE | 2021-12-15 04:27 | PCRCNOTE ---
Patient's 0200 treatment was omitted due to patient sleeping. Patient gets very confused and anxious while awake. Treatment will resume at 0800.
[2021-12-15 05:40] LABS: Basophils Absolute Auto 0.1 K/mm3 (0.0-0.1); Eosinophils Absolute Auto 0.4 K/mm3 (0-0.3); Hematocrit 28.8 % (37.0-47.0); Hemoglobin 8.6 g/dL (12.0-15.0); Immature Granulocyte Absolute 0.02 K/mm3 (0.00-0.031); Immature Granulocyte Percent A 0.3 % (0-0.5); Lymphocytes Absolute Auto 1.05 K/mm3 (0.9-3.2); Lymphocytes Percent Auto 15.3 % (18.3-44.2); Mean Corpuscular HGB Conc 29.9 g/dl (32-36); Mean Corpuscular Hemoglobin 30.9 pg (26-34); Mean Corpuscular Volume 103.6 fl (80-100); Mean Platelet Volume 11.6 fl (7.4-10.4); Monocytes Absolute Auto 0.7 K/mm3 (0.1-0.6); Monocytes Percent Auto 10.3 % (2.6-8.5); Neutrophils Absolute Auto 4.6 K/mm3 (1.3-6.7); Neutrophils Percent Auto 67.1 % (45.5-73.1); Platelet Count Result 220 k/mm3 (150-375); Red Blood Count 2.78 M/mm3 (4.2-5.4); Red Cell Distribution Width 14.5 % (11.5-14.5); White Blood Count 6.9 K/mm3 (4.5-10.0)
[2021-12-15] MEDS: ACETAMINOPHEN 325 MG TABLET 650 MG PO (05:47)
[2021-12-15 05:54] LABS: Alanine Aminotransferase 7 U/L (6-35); Albumin Level 3.8 g/dL (3.5-5.1); Alkaline Phosphatase 127 U/L (38-126); Anion Gap 11 mmol/L (8-16); Aspartate Amino Transferase 17 U/L (14-36); Bilirubin,Total 0.4 mg/dL (0.2-1.3); Blood Urea Nitrogen 30 mg/dL (7-17); Calcium 8.6 mg/dL (8.4-10.2); Carbon Dioxide 24 mmol/L (22-30); Chloride 104 mmol/L (98-107); Estimated CRCL calculation 36 ml/min; Estimated Glomerular Filt Rate 32; Glucose 117 mg/dL (65-110); Magnesium 2.3 mg/dL (1.6-2.3); Phosphorus 3.9 mg/dL (2.5-4.5); Potassium 4.5 mmol/L (3.4-5.0); Sodium 139 mmol/L (137-145)
[2021-12-15] MEDS: allopurinoL 100 MG TABLET PO (08:28)
[2021-12-15] MEDS: EMPAGLIFLOZIN 10 MG TABLET PO (08:28)
[2021-12-15] MEDS: ATORVASTATIN 40 MG TABLET 80 MG PO (08:28)
[2021-12-15] MEDS: FLUoxetine HCL 20 MG CAPSULE 40 MG PO ×2 (08:29→16:53)
[2021-12-15] MEDS: LOSARTAN POTASSIUM 25 MG TABLET PO (08:29)
[2021-12-15] MEDS: OXcarbazepine 300 MG TABLET PO ×3 (08:29→16:54)
[2021-12-15] MEDS: GABAPENTIN 100 MG CAPSULE PO ×3 (08:29→16:54)
[2021-12-15] MEDS: rOPINIRole HCL 0.5 MG TABLET PO (08:30)
[2021-12-15] MEDS: HEPARIN SODIUM 5,000 UNITS/ML VIAL 5000 UNITS SUB-Q ×2 (08:30→21:08)
[2021-12-15] MEDS: PRIMIDONE 50 MG TABLET PO ×2 (08:30→16:54)
[2021-12-15] MEDS: TOPIRAMATE 100 MG TABLET PO ×2 (08:30→21:12)
[2021-12-15] MEDS: TOLNAFTATE 1% POWDER 45 GM BTL 1 APPLIC TOPICAL ×2 (08:30→21:11)
[2021-12-15 08:44] LABS: Glucose Point of Care 121 mg/dl (65-105)
[2021-12-15] MEDS: IPRATROPIUM BR 0.02% INH SOLN 0.5 MG/2.5 ML VIAL INHALATION ×2 (09:40→22:31)
[2021-12-15] MEDS: ALBUTEROL SULFATE NEB 2.5 MG/3 ML INH INHALATION ×2 (09:40→22:31)
[2021-12-15 12:53] LABS: Glucose Point of Care 135 mg/dl (65-105)
--- NOTE | 2021-12-15 16:54 | PM.IMPN ---
Progress Note: A&P Assessment and Plan (1) Bradycardia: Code(s): R00.1 - Bradycardia, unspecified Status: Acute Assessment and Plan: Patient presented with generalized weakness, shortness of breath, was found to have bradycardia, was given atropine in the ER improvement in heart rate, she was started on dopamine infusion on admission . Initially EKG with junctional bradycardia -patient is on Coreg at home and was given calcium gluconate, glucagon -appreciate cardiology evaluation and recommendation -hold Coreg and all AV kevin blocking agents -place pacer pads on patient -currently off dopamine infusion since 12/13/2021 with 4:00 p.m. echo on 12/13/2021: LV systolic function to be 60-65%, LV chamber mildly enlarged, grade 1 diastolic dysfunction, LA severely enlarged, on a moderately enlarged, mild tricuspid valve regurg (2) Chronic kidney disease, stage 3: Qualifiers: Chronic kidney disease stage 3 subtype: stage 3a (GFR 45-59) Qualified Code(s): N18.31 - Chronic kidney disease, stage 3a Code(s): N18.30 - Chronic kidney disease, stage 3 unspecified Status: Acute Assessment and Plan: NESHA on Chronic kidney disease stage III baseline creatinine 1.8 back from August admission creatinine 2.7 continues to improve -could be related to possible UTI, MANISH-inhibitor, diuretics, hypovolemia, bradycardia -patient received IV fluids in the ER -patient was hydrated gently with improvement in urine output and renal function (3) Neuropathy: Code(s): G62.9 - Polyneuropathy, unspecified Status: Acute Assessment and Plan: continue gabapentin (4) Generalized weakness: Code(s): R53.1 - Weakness Status: Acute Assessment and Plan: likely due to bradycardia, NESHA on CKD, possible UTI -PT/OT to evaluate the patient (5) Type 2 diabetes mellitus: Qualifiers: Diabetes mellitus termite control technician insulin use: with retirement use Diabetes mellitus complication status: without complication Qualified Code(s): E11.9 - Type 2 diabetes mellitus without complications; Z79.4 - [facility] (current) use of insulin Code(s): E11.9 - Type 2 diabetes mellitus without complications Status: Acute Assessment and Plan: Accu-Cheks and sliding scale insulin (6) Parkinson disease: Code(s): G20 - Parkinson's disease Status: Acute Assessment and Plan: Continue carbidopa levodopa (7) Electrolyte abnormality: Code(s): E87.8 - Other disorders of electrolyte and fluid balance, not elsewhere classified Status: Acute Assessment and Plan: Hyperkalemia likely related to acute on chronic kidney disease, MANISH-inhibitor and diuretics at home -potassium levels have normalized a treatment with Lokelma (8) UTI (urinary tract infection): Code(s): N39.0 - Urinary tract infection, site not specified Status: Acute Assessment and Plan: Continue ceftriaxone -urine cultures are negative -blood cultures negative x2 venous duplex negative for DVT Was febrile 12/13/2021 afebrile since then Plan congestive heart failure diastolic on Bumex at home currently on hold Anemia chronic:No signs of bleeding; Likely anemia chronic disease Anxiety disorder alprazolam resumed and several other home medication as well. Will add Seroquel at bedtime DVT prophylaxis: Heparin subQ Stress ulcer prophylaxis: Not applicable Nutrition: Diabetic and heart healthy diet Code Status: Full code Subjective Date/time seen: 12/15/21 16:54 Interval history: Patient presented with lightheadedness and dizzy right after discharge from [facility].? Noted to be bradycardic with hypotension requiring atropine.? She was given some Hunter and also glucose:? Since she was on Coreg.? She was started on dopamine and was admitted to the ICU. ?12/14/2021: Dopamine since yesterday.? Sinus rhythm heart rate improved. she? feels anxious, feels like she
[2021-12-15 17:28] LABS: Glucose Point of Care 150 mg/dl (65-105)
[2021-12-15] MEDS: DOXEPIN HCL 25 MG CAPSULE PO (17:37)
[2021-12-15] MEDS: QUEtiapine FUMARATE 25 MG TABLET PO (21:10)
[2021-12-15] MEDS: PRAZOSIN HCL 5 MG CAPSULE PO (21:11)
[2021-12-16] VITALS (14 sets, daily range): BP systolic 125–148; BP diastolic 44–67; PULSE 55–78; RESP 18–20; TEMP 36.5–36.9; O2SAT 94–97
[2021-12-16 01:04] LABS: Glucose Point of Care 138 mg/dl (65-105)
[2021-12-16] MEDS: CARBIDOPA/LEVODOPA 25/100 MG TABLET 3 TABLET PO ×3 (05:44→21:07)
[2021-12-16] MEDS: CENTRAL LINE FLUSH 10 ML IV PUSH ×3 (05:45→21:11)
[2021-12-16 06:06] LABS: Basophils Absolute Auto 0.1 K/mm3 (0.0-0.1); Basophils Percent Auto 0.8 % (0.2-1.2); Eosinophils Absolute Auto 0.6 K/mm3 (0-0.3); Eosinophils Percent Auto 7.9 % (0-4.4); Hematocrit 28.7 % (37.0-47.0); Hemoglobin 8.7 g/dL (12.0-15.0); Immature Granulocyte Absolute 0.04 K/mm3 (0.00-0.031); Immature Granulocyte Percent A 0.6 % (0-0.5); Lymphocytes Absolute Auto 1.02 K/mm3 (0.9-3.2); Lymphocytes Percent Auto 14.4 % (18.3-44.2); Mean Corpuscular HGB Conc 30.3 g/dl (32-36); Mean Corpuscular Volume 102.1 fl (80-100); Mean Platelet Volume 11.1 fl (7.4-10.4); Monocytes Absolute Auto 0.7 K/mm3 (0.1-0.6); Monocytes Percent Auto 10.4 % (2.6-8.5); Neutrophils Absolute Auto 4.7 K/mm3 (1.3-6.7); Neutrophils Percent Auto 65.9 % (45.5-73.1); Platelet Count Result 219 k/mm3 (150-375); Red Blood Count 2.81 M/mm3 (4.2-5.4); Red Cell Distribution Width 14.6 % (11.5-14.5); White Blood Count 7.1 K/mm3 (4.5-10.0)
[2021-12-16 06:14] LABS: Alanine Aminotransferase 6 U/L (6-35); Albumin Level 3.8 g/dL (3.5-5.1); Alkaline Phosphatase 128 U/L (38-126); Anion Gap 11 mmol/L (8-16); Aspartate Amino Transferase 16 U/L (14-36); Bilirubin,Total 0.3 mg/dL (0.2-1.3); Blood Urea Nitrogen 28 mg/dL (7-17); Calcium 8.5 mg/dL (8.4-10.2); Carbon Dioxide 22 mmol/L (22-30); Chloride 104 mmol/L (98-107); Estimated CRCL calculation 36 ml/min; Estimated Glomerular Filt Rate 32; Glucose 123 mg/dL (65-110); Magnesium 2.4 mg/dL (1.6-2.3); Phosphorus 3.7 mg/dL (2.5-4.5); Potassium 4.3 mmol/L (3.4-5.0); Sodium 137 mmol/L (137-145)
[2021-12-16] MEDS: ALBUTEROL SULFATE NEB 2.5 MG/3 ML INH INHALATION ×2 (08:15→14:29)
[2021-12-16] MEDS: IPRATROPIUM BR 0.02% INH SOLN 0.5 MG/2.5 ML VIAL INHALATION ×2 (08:15→14:29)
[2021-12-16 09:20] LABS: Glucose Point of Care 126 mg/dl (65-105)
[2021-12-16] MEDS: DOXEPIN HCL 25 MG CAPSULE PO ×2 (09:51→17:34)
[2021-12-16] MEDS: ATORVASTATIN 40 MG TABLET 80 MG PO (09:51)
[2021-12-16] MEDS: EMPAGLIFLOZIN 10 MG TABLET PO (09:51)
[2021-12-16] MEDS: FLUoxetine HCL 20 MG CAPSULE 40 MG PO ×2 (09:51→17:34)
[2021-12-16] MEDS: allopurinoL 100 MG TABLET PO (09:51)
[2021-12-16] MEDS: ALPRAZolam (*CRX) 0.5 MG TABLET 1 MG PO ×4 (09:51→21:07)
[2021-12-16] MEDS: GABAPENTIN 100 MG CAPSULE PO ×3 (09:51→17:34)
[2021-12-16] MEDS: LOSARTAN POTASSIUM 25 MG TABLET PO (09:52)
[2021-12-16] MEDS: polyethylene glycoL 3350 17 GM POWD.PACK PO (09:52)
[2021-12-16] MEDS: PRIMIDONE 50 MG TABLET PO ×2 (09:52→17:34)
[2021-12-16] MEDS: TOPIRAMATE 100 MG TABLET PO ×2 (09:52→21:09)
[2021-12-16] MEDS: OXcarbazepine 300 MG TABLET PO ×3 (09:52→17:34)
[2021-12-16] MEDS: TOLNAFTATE 1% POWDER 45 GM BTL 1 APPLIC TOPICAL ×2 (09:52→21:10)
[2021-12-16] MEDS: rOPINIRole HCL 0.5 MG TABLET PO (09:52)
[2021-12-16] MEDS: HEPARIN SODIUM 5,000 UNITS/ML VIAL 5000 UNITS SUB-Q ×2 (09:52→21:07)
[2021-12-16 12:45] LABS: Glucose Point of Care 147 mg/dl (65-105)
[2021-12-16] MEDS: ACETAMINOPHEN 325 MG TABLET 650 MG PO (13:07)
--- NOTE | 2021-12-16 16:32 | PM.IMPN ---
Progress Note: A&P Assessment and Plan (1) Bradycardia: Code(s): R00.1 - Bradycardia, unspecified Status: Acute Assessment and Plan: Patient presented with generalized weakness, shortness of breath, was found to have bradycardia, was given atropine in the ER improvement in heart rate, she was started on dopamine infusion on admission . Initially EKG with junctional bradycardia -patient is on Coreg at home and was given calcium gluconate, glucagon -appreciate cardiology evaluation and recommendation -hold Coreg and all AV kevin blocking agents -place pacer pads on patient -currently off dopamine infusion since 12/13/2021 with 4:00 p.m. echo on 12/13/2021: LV systolic function to be 60-65%, LV chamber mildly enlarged, grade 1 diastolic dysfunction, LA severely enlarged, on a moderately enlarged, mild tricuspid valve regurg (2) Chronic kidney disease, stage 3: Qualifiers: Chronic kidney disease stage 3 subtype: stage 3a (GFR 45-59) Qualified Code(s): N18.31 - Chronic kidney disease, stage 3a Code(s): N18.30 - Chronic kidney disease, stage 3 unspecified Status: Acute Assessment and Plan: NESHA on Chronic kidney disease stage III baseline creatinine 1.8 back from August admission creatinine 2.7 continues to improve -could be related to possible UTI, MANISH-inhibitor, diuretics, hypovolemia, bradycardia -patient received IV fluids in the ER -patient was hydrated gently with improvement in urine output and renal function (3) Neuropathy: Code(s): G62.9 - Polyneuropathy, unspecified Status: Acute Assessment and Plan: continue gabapentin (4) Generalized weakness: Code(s): R53.1 - Weakness Status: Acute Assessment and Plan: likely due to bradycardia, NESHA on CKD, possible UTI -PT/OT to evaluate the patient (5) Type 2 diabetes mellitus: Qualifiers: Diabetes mellitus exterminator helper termite insulin use: with longterm use Diabetes mellitus complication status: without complication Qualified Code(s): E11.9 - Type 2 diabetes mellitus without complications; Z79.4 - half-way (current) use of insulin Code(s): E11.9 - Type 2 diabetes mellitus without complications Status: Acute Assessment and Plan: Accu-Cheks and sliding scale insulin (6) Parkinson disease: Code(s): G20 - Parkinson's disease Status: Acute Assessment and Plan: Continue carbidopa levodopa (7) Electrolyte abnormality: Code(s): E87.8 - Other disorders of electrolyte and fluid balance, not elsewhere classified Status: Acute Assessment and Plan: Hyperkalemia likely related to acute on chronic kidney disease, MANISH-inhibitor and diuretics at home -potassium levels have normalized a treatment with Lokelma (8) UTI (urinary tract infection): Code(s): N39.0 - Urinary tract infection, site not specified Status: Acute Assessment and Plan: Continue ceftriaxone -urine cultures are negative -blood cultures negative x2 venous duplex negative for DVT Was febrile 12/13/2021 afebrile since then . Concludes ceftriaxone 12/16/2021 Plan congestive heart failure diastolic on Bumex at home currently on hold Anemia chronic:No signs of bleeding; Likely anemia chronic disease Anxiety disorder alprazolam resumed and several other home medication as well. Will add Seroquel at bedtime DVT prophylaxis: Heparin subQ Stress ulcer prophylaxis: Not applicable Nutrition: Diabetic and heart healthy diet Code Status: Full code Subjective Date/time seen: 12/16/21 16:32 Interval history: Patient presented with lightheadedness and dizzy right after discharge from [facility].? Noted to be bradycardic with hypotension requiring atropine.? She was given some Hunter and also glucose:? Since she was on Coreg.? She was started on dopamine and was admitted to the ICU. ?12/14/2021: Dopamine since yesterday.? Sinus rhythm heart rate improved
[2021-12-16 17:49] LABS: Glucose Point of Care 128 mg/dl (65-105)
[2021-12-16 20:01] LABS: Glucose Point of Care 167 mg/dl (65-105)
[2021-12-16] MEDS: PRAZOSIN HCL 5 MG CAPSULE PO (21:08)
[2021-12-16] MEDS: QUEtiapine FUMARATE 25 MG TABLET PO (21:09)
[2021-12-17] VITALS (14 sets, daily range): BP systolic 103–158; BP diastolic 46–62; PULSE 54–71; RESP 16–22; TEMP 35.9–36.8; O2SAT 94–98
--- NOTE | 2021-12-17 01:38 | PC.NURSE ---
Daylight Savings Time For Daylight Savings Time Ending in the Fall - Clocks are moved back. For Daylight Savings Time Beginning in the Spring - Clocks are moved ahead. For [facility], the time of change occurs at 0200 hrs. Time is taken from the traffic observer. This entry on the patient's chart recognizes the change in time reflected during documentation. Example: 2 entries for vital signs may be charted for 0200 hrs.
[2021-12-17] MEDS: CARBIDOPA/LEVODOPA 25/100 MG TABLET 3 TABLET PO ×3 (05:40→21:40)
[2021-12-17] MEDS: CENTRAL LINE FLUSH 10 ML IV PUSH ×3 (05:41→21:41)
[2021-12-17] MEDS: DOXEPIN HCL 25 MG CAPSULE PO ×2 (09:08→18:08)
[2021-12-17] MEDS: HEPARIN SODIUM 5,000 UNITS/ML VIAL 5000 UNITS SUB-Q ×2 (09:08→21:39)
[2021-12-17] MEDS: ALPRAZolam (*CRX) 0.5 MG TABLET 1 MG PO ×4 (09:08→21:45)
[2021-12-17] MEDS: EMPAGLIFLOZIN 10 MG TABLET PO (09:08)
[2021-12-17] MEDS: FLUoxetine HCL 20 MG CAPSULE 40 MG PO ×2 (09:08→18:08)
[2021-12-17] MEDS: ATORVASTATIN 40 MG TABLET 80 MG PO (09:08)
[2021-12-17] MEDS: allopurinoL 100 MG TABLET PO (09:08)
[2021-12-17] MEDS: OXcarbazepine 300 MG TABLET PO ×3 (09:09→18:08)
[2021-12-17] MEDS: polyethylene glycoL 3350 17 GM POWD.PACK PO (09:09)
[2021-12-17] MEDS: PRIMIDONE 50 MG TABLET PO ×2 (09:09→18:08)
[2021-12-17] MEDS: rOPINIRole HCL 0.5 MG TABLET PO (09:09)
[2021-12-17] MEDS: LOSARTAN POTASSIUM 25 MG TABLET PO (09:09)
[2021-12-17] MEDS: TOLNAFTATE 1% POWDER 45 GM BTL 1 APPLIC TOPICAL ×2 (09:09→21:40)
[2021-12-17] MEDS: GABAPENTIN 100 MG CAPSULE PO ×3 (09:09→18:08)
[2021-12-17] MEDS: TOPIRAMATE 100 MG TABLET PO ×2 (09:09→21:40)
[2021-12-17 09:13] LABS: Basophils Absolute Auto 0.1 K/mm3 (0.0-0.1); Basophils Percent Auto 0.9 % (0.2-1.2); Eosinophils Absolute Auto 0.7 K/mm3 (0-0.3); Eosinophils Percent Auto 9.1 % (0-4.4); Hematocrit 29.1 % (37.0-47.0); Hemoglobin 8.8 g/dL (12.0-15.0); Immature Granulocyte Absolute 0.06 K/mm3 (0.00-0.031); Immature Granulocyte Percent A 0.8 % (0-0.5); Lymphocytes Absolute Auto 1.08 K/mm3 (0.9-3.2); Lymphocytes Percent Auto 13.9 % (18.3-44.2); Mean Corpuscular HGB Conc 30.2 g/dl (32-36); Mean Corpuscular Hemoglobin 31.3 pg (26-34); Mean Corpuscular Volume 103.6 fl (80-100); Monocytes Absolute Auto 0.7 K/mm3 (0.1-0.6); Monocytes Percent Auto 8.9 % (2.6-8.5); Neutrophils Absolute Auto 5.2 K/mm3 (1.3-6.7); Neutrophils Percent Auto 66.4 % (45.5-73.1); Platelet Count Result 219 k/mm3 (150-375); Red Blood Count 2.81 M/mm3 (4.2-5.4); Red Cell Distribution Width 14.5 % (11.5-14.5); White Blood Count 7.8 K/mm3 (4.5-10.0)
[2021-12-17 09:20] LABS: Glucose Point of Care 122 mg/dl (65-105)
[2021-12-17 09:20] LABS: Alanine Aminotransferase 7 U/L (6-35); Albumin Level 3.9 g/dL (3.5-5.1); Alkaline Phosphatase 142 U/L (38-126); Anion Gap 9 mmol/L (8-16); Aspartate Amino Transferase 16 U/L (14-36); Bilirubin,Total 0.4 mg/dL (0.2-1.3); Blood Urea Nitrogen 27 mg/dL (7-17); Calcium 8.7 mg/dL (8.4-10.2); Carbon Dioxide 20 mmol/L (22-30); Chloride 104 mmol/L (98-107); Estimated CRCL calculation 39 ml/min; Estimated Glomerular Filt Rate 34; Glucose 112 mg/dL (65-110); Magnesium 2.3 mg/dL (1.6-2.3); Phosphorus 3.4 mg/dL (2.5-4.5); Potassium 4.9 mmol/L (3.4-5.0); Sodium 133 mmol/L (137-145)
--- NOTE | 2021-12-17 11:22 | PM.IMPN ---
Progress Note: A&P Assessment and Plan (1) Bradycardia: Code(s): R00.1 - Bradycardia, unspecified Status: Acute Assessment and Plan: Patient presented with generalized weakness, shortness of breath, was found to have bradycardia, was given atropine in the ER improvement in heart rate, she was started on dopamine infusion on admission . Initially EKG with junctional bradycardia -patient is on Coreg at home and was given calcium gluconate, glucagon -appreciate cardiology evaluation and recommendation -hold Coreg and all AV kevin blocking agents -place pacer pads on patient -currently off dopamine infusion since 12/13/2021 with 4:00 p.m. echo on 12/13/2021: LV systolic function to be 60-65%, LV chamber mildly enlarged, grade 1 diastolic dysfunction, LA severely enlarged, on a moderately enlarged, mild tricuspid valve regurg (2) Chronic kidney disease, stage 3: Qualifiers: Chronic kidney disease stage 3 subtype: stage 3a (GFR 45-59) Qualified Code(s): N18.31 - Chronic kidney disease, stage 3a Code(s): N18.30 - Chronic kidney disease, stage 3 unspecified Status: Acute Assessment and Plan: NESHA on Chronic kidney disease stage III baseline creatinine 1.8 back from August admission creatinine 2.7 continues to improve -could be related to possible UTI, MANISH-inhibitor, diuretics, hypovolemia, bradycardia -patient received IV fluids in the ER -patient was hydrated gently with improvement in urine output and renal function (3) Neuropathy: Code(s): G62.9 - Polyneuropathy, unspecified Status: Acute Assessment and Plan: continue gabapentin (4) Generalized weakness: Code(s): R53.1 - Weakness Status: Acute Assessment and Plan: likely due to bradycardia, NESHA on CKD, possible UTI -PT/OT to evaluate the patient (5) Type 2 diabetes mellitus: Qualifiers: Diabetes mellitus audio video repairer insulin use: with mcfp use Diabetes mellitus complication status: without complication Qualified Code(s): E11.9 - Type 2 diabetes mellitus without complications; Z79.4 - senior living (current) use of insulin Code(s): E11.9 - Type 2 diabetes mellitus without complications Status: Acute Assessment and Plan: Accu-Cheks and sliding scale insulin (6) Parkinson disease: Code(s): G20 - Parkinson's disease Status: Acute Assessment and Plan: Continue carbidopa levodopa (7) Electrolyte abnormality: Code(s): E87.8 - Other disorders of electrolyte and fluid balance, not elsewhere classified Status: Acute Assessment and Plan: Hyperkalemia likely related to acute on chronic kidney disease, MANISH-inhibitor and diuretics at home -potassium levels have normalized a treatment with Lokelma (8) UTI (urinary tract infection): Code(s): N39.0 - Urinary tract infection, site not specified Status: Acute Assessment and Plan: Continue ceftriaxone -urine cultures are negative -blood cultures negative x2 venous duplex negative for DVT Was febrile 12/13/2021 afebrile since then . Concludes ceftriaxone 12/16/2021 Plan congestive heart failure diastolic on Bumex at home currently on hold. Need to restart her Bumex. Will start with lower dose of Bumex 1 mg daily today Anemia chronic:No signs of bleeding; Likely anemia chronic disease Anxiety disorder alprazolam resumed and several other home medication as well. Will add Seroquel at bedtime DVT prophylaxis: Heparin subQ Stress ulcer prophylaxis: Not applicable Nutrition: Diabetic and heart healthy diet Code Status: Full code Subjective Date/time seen: 12/17/21 11:22 Interval history: Patient presented with lightheadedness and dizzy right after discharge from [facility].? Noted to be bradycardic with hypotension requiring atropine.? She was given some Hunter and also glucose:? Since she was on Coreg.? She was started on dopamine and was admitted to
--- NOTE | 2021-12-17 13:00 | PC.NURSE ---
Called pharmacy and asked them to send me 1200 mucinex. Will give when received
[2021-12-17 13:05] LABS: Glucose Point of Care 103 mg/dl (65-105)
[2021-12-17] MEDS: guaiFENesin 12 HR 600 MG TABCR 1200 MG PO ×2 (13:26→21:39)
[2021-12-17] MEDS: ALBUTEROL SULFATE NEB 2.5 MG/3 ML INH INHALATION ×2 (14:56→21:44)
[2021-12-17] MEDS: IPRATROPIUM BR 0.02% INH SOLN 0.5 MG/2.5 ML VIAL INHALATION ×2 (14:56→21:44)
[2021-12-17 18:02] LABS: Glucose Point of Care 120 mg/dl (65-105)
[2021-12-17 20:08] LABS: Glucose Point of Care 139 mg/dl (65-105)
[2021-12-17] MEDS: QUEtiapine FUMARATE 25 MG TABLET PO (21:40)
[2021-12-17] MEDS: PRAZOSIN HCL 5 MG CAPSULE PO (21:40)
[2021-12-18] VITALS (12 sets, daily range): BP systolic 127–153; BP diastolic 52–63; PULSE 46–79; RESP 16–20; TEMP 36.4–36.8; O2SAT 95–98
[2021-12-18] MEDS: CARBIDOPA/LEVODOPA 25/100 MG TABLET 3 TABLET PO ×2 (06:28→13:00)
[2021-12-18] MEDS: CENTRAL LINE FLUSH 10 ML IV PUSH ×2 (06:31→13:00)
[2021-12-18 08:19] LABS: Glucose Point of Care 115 mg/dl (65-105)
[2021-12-18] MEDS: allopurinoL 100 MG TABLET PO (08:56)
[2021-12-18] MEDS: GABAPENTIN 100 MG CAPSULE PO ×2 (08:56→12:58)
[2021-12-18] MEDS: BUMETANIDE 1 MG TABLET PO (08:56)
[2021-12-18] MEDS: HEPARIN SODIUM 5,000 UNITS/ML VIAL 5000 UNITS SUB-Q (08:56)
[2021-12-18] MEDS: ALPRAZolam (*CRX) 0.5 MG TABLET 1 MG PO ×2 (08:56→12:58)
[2021-12-18] MEDS: FLUoxetine HCL 20 MG CAPSULE 40 MG PO (08:56)
[2021-12-18] MEDS: DOXEPIN HCL 25 MG CAPSULE PO (08:56)
[2021-12-18] MEDS: EMPAGLIFLOZIN 10 MG TABLET PO (08:56)
[2021-12-18] MEDS: guaiFENesin 12 HR 600 MG TABCR 1200 MG PO (08:56)
[2021-12-18] MEDS: ATORVASTATIN 40 MG TABLET 80 MG PO (08:56)
[2021-12-18] MEDS: polyethylene glycoL 3350 17 GM POWD.PACK PO (08:57)
[2021-12-18] MEDS: TOPIRAMATE 100 MG TABLET PO (08:57)
[2021-12-18] MEDS: LOSARTAN POTASSIUM 25 MG TABLET PO (08:57)
[2021-12-18] MEDS: OXcarbazepine 300 MG TABLET PO ×2 (08:57→12:58)
[2021-12-18] MEDS: TOLNAFTATE 1% POWDER 45 GM BTL 1 APPLIC TOPICAL (08:57)
[2021-12-18] MEDS: PRIMIDONE 50 MG TABLET PO (08:57)
[2021-12-18] MEDS: rOPINIRole HCL 0.5 MG TABLET PO (08:57)
[2021-12-18 09:11] LABS: Alanine Aminotransferase 6 U/L (6-35); Albumin Level 3.8 g/dL (3.5-5.1); Alkaline Phosphatase 138 U/L (38-126); Anion Gap 11 mmol/L (8-16); Aspartate Amino Transferase 17 U/L (14-36); Bilirubin,Total 0.4 mg/dL (0.2-1.3); Blood Urea Nitrogen 28 mg/dL (7-17); Calcium 8.8 mg/dL (8.4-10.2); Carbon Dioxide 19 mmol/L (22-30); Chloride 103 mmol/L (98-107); Estimated CRCL calculation 39 ml/min; Estimated Glomerular Filt Rate 34; Glucose 111 mg/dL (65-110); Magnesium 2.3 mg/dL (1.6-2.3); Phosphorus 4.2 mg/dL (2.5-4.5); Potassium 4.8 mmol/L (3.4-5.0); Sodium 133 mmol/L (137-145)
[2021-12-18 09:12] LABS: Basophils Absolute Auto 0.1 K/mm3 (0.0-0.1); Basophils Percent Auto 0.6 % (0.2-1.2); Eosinophils Absolute Auto 0.7 K/mm3 (0-0.3); Eosinophils Percent Auto 8.8 % (0-4.4); Hematocrit 28.3 % (37.0-47.0); Hemoglobin 8.6 g/dL (12.0-15.0); Immature Granulocyte Absolute 0.05 K/mm3 (0.00-0.031); Immature Granulocyte Percent A 0.6 % (0-0.5); Lymphocytes Absolute Auto 0.97 K/mm3 (0.9-3.2); Mean Corpuscular HGB Conc 30.4 g/dl (32-36); Mean Corpuscular Hemoglobin 30.6 pg (26-34); Mean Corpuscular Volume 100.7 fl (80-100); Mean Platelet Volume 11.3 fl (7.4-10.4); Monocytes Absolute Auto 0.7 K/mm3 (0.1-0.6); Monocytes Percent Auto 8.5 % (2.6-8.5); Neutrophils Absolute Auto 5.6 K/mm3 (1.3-6.7); Neutrophils Percent Auto 69.5 % (45.5-73.1); Platelet Count Result 230 k/mm3 (150-375); Red Blood Count 2.81 M/mm3 (4.2-5.4); Red Cell Distribution Width 14.3 % (11.5-14.5); White Blood Count 8.1 K/mm3 (4.5-10.0)
--- NOTE | 2021-12-18 11:17 | PCRCNOTE ---
Window of time for administration has passed. See next scheduled administration.
--- NOTE | 2021-12-18 12:13 | PM.DS ---
DS: Admitting Diagnosis Discharge Date 12/18/2021 Admitting Diagnosis generalized weakness DS: Discharge Diagnosis Discharge Diagnosis (1) Bradycardia: Code(s): R00.1 - Bradycardia, unspecified Status: Acute (2) Chronic kidney disease, stage 3: Qualifiers: Chronic kidney disease stage 3 subtype: stage 3a (GFR 45-59) Qualified Code(s): N18.31 - Chronic kidney disease, stage 3a Code(s): N18.30 - Chronic kidney disease, stage 3 unspecified Status: Acute (3) Neuropathy: Code(s): G62.9 - Polyneuropathy, unspecified Status: Acute (4) Generalized weakness: Code(s): R53.1 - Weakness Status: Acute (5) Type 2 diabetes mellitus: Qualifiers: Diabetes mellitus usp insulin use: with intermodal dispatcher use Diabetes mellitus complication status: without complication Qualified Code(s): E11.9 - Type 2 diabetes mellitus without complications; Z79.4 - long term care phlebotomist (current) use of insulin Code(s): E11.9 - Type 2 diabetes mellitus without complications Status: Acute (6) Parkinson disease: Code(s): G20 - Parkinson's disease Status: Acute (7) Electrolyte abnormality: Code(s): E87.8 - Other disorders of electrolyte and fluid balance, not elsewhere classified Status: Acute (8) UTI (urinary tract infection): Code(s): N39.0 - Urinary tract infection, site not specified Status: Acute DS: Summary Hospital Course Hospital Course: # Bradycardia: Patient presented with generalized weakness, shortness of breath, was found to have bradycardia, was given atropine in the ER improvement in heart rate, she was started on dopamine infusion on admission .? Initially EKG with junctional bradycardia -patient is on Coreg at home and was given calcium gluconate, glucagon -appreciate cardiology evaluation and recommendation -hold Coreg and all AV kevin blocking agents -place pacer pads on patient -currently off dopamine infusion since 12/13/2021 with 4:00 p.m. ?echo on 12/13/2021: LV systolic function to be 60-65%, LV chamber mildly enlarged, grade 1 diastolic dysfunction, LA severely enlarged, on a moderately enlarged, mild tricuspid valve regurg Follow-up with cardiology as outpatient basis. # acute on chronic kidney disease stage 3: ? NESHA on Chronic kidney disease stage III baseline creatinine 1.8 back from August ?admission creatinine 2.7 continues to improve -could be related to possible UTI, MANISH-inhibitor, diuretics, hypovolemia, bradycardia -patient received IV fluids in the ER -patient was hydrated gently with improvement in urine output and renal function # peripheral neuropathy: continue gabapentin # generalized weakness: likely due to bradycardia, NESHA on CKD, possible UTI -PT/OT to evaluate the patient Suggested rehabilitation # type 2 diabetes mellitus: Accu-Cheks and sliding scale insulin # Parkinson's disease: Continue carbidopa levodopa # hyperkalemia: Hyperkalemia likely related to acute on chronic kidney disease, MANISH-inhibitor and diuretics at home -potassium levels have normalized a treatment with Lokelma # urinary tract infection: Started on ceftriaxone -urine cultures are negative -blood cultures negative x2 ?venous duplex negative for DVT Was febrile 12/13/2021 afebrile since then .? Concludes ceftriaxone 12/16/2021 # chronic?congestive heart failure diastolic on Bumex at home currently on hold.? Need to restart her Bumex.? started on lower dose of Bumex 1 mg daily. Monitor BMP as an outpatient basis #Anemia chronic:No signs of bleeding; Likely anemia chronic disease #Anxiety disorder alprazolam resumed and several other home medication as well.? Will add Seroquel at bedtime #DVT prophylaxis:? Heparin subQ #Code Status:? Full code Time Spent with Patient Time attestation: Total time spent providing and/or coordinating discharge services: 50 minutes Exam Narrative: General: Pleasant f
[2021-12-18 12:24] LABS: Glucose Point of Care 134 mg/dl (65-105)
[2021-12-18] MEDS: ALBUTEROL SULFATE NEB 2.5 MG/3 ML INH INHALATION (12:42)
[2021-12-18] MEDS: IPRATROPIUM BR 0.02% INH SOLN 0.5 MG/2.5 ML VIAL INHALATION (12:42)
== END 2021-12-18 16:30 | DRG 309 ==
LOC: ANHED 07:47 → ANHICU 07:58 → ANH3MED 12-14 22:33
PROVIDERS: Internal Medicine; Admitting Provider Family Medicine; Emergency Provider Emergency Medicine; Visit Provider Internal Medicine
DX: R00.1 Bradycardia, unspecified (principal); I13.0 Hypertensive heart and chronic kidney disease with heart failure and stage 1 through stage 4 chronic kidney disease, or unspecified chronic kidney disease; N17.9 Acute kidney failure, unspecified; N39.0 Urinary tract infection, site not specified; I50.32 Chronic diastolic (congestive) heart failure; N18.31 Chronic kidney disease, stage 3a; G62.9 Polyneuropathy, unspecified; G20 Parkinson's disease; E87.5 Hyperkalemia; J44.9 Chronic obstructive pulmonary disease, unspecified; E03.9 Hypothyroidism, unspecified; K21.9 Gastro-esophageal reflux disease without esophagitis; G47.33 Obstructive sleep apnea (adult) (pediatric); Z96.653 Presence of artificial knee joint, bilateral; Z83.3 Family history of diabetes mellitus; Z87.891 Personal history of nicotine dependence; Z79.51 Long term (current) use of inhaled steroids; Z79.899 Other long term (current) drug therapy; Z20.822 Contact with and (suspected) exposure to COVID-19; E11.42 Type 2 diabetes mellitus with diabetic polyneuropathy; R50.9 Fever, unspecified; D63.1 Anemia in chronic kidney disease; E11.22 Type 2 diabetes mellitus with diabetic chronic kidney disease; F41.9 Anxiety disorder, unspecified; Z91.041 Radiographic dye allergy status; Z91.040 Latex allergy status
CPT/HCPCS: 36415; 36569; 70450; 71045; 80048; 80053; 81001; 82948; 83605; 83735; 83880; 84100; 84443; 84484; 85025; 85610; 85730; 87040; 87086; 93005; 93970; 94640; 96365; 96375; 97110; 97116; 97162; 97166; 97530; 97535; 99285; A9270; C1751; C8929; J0461; J0610; J0696; J1265; J1610; J1644; J1815; J2405; J7030; J7120; Q9957; U0003; U0005

== ENCOUNTER 2021-12-23 06:44 | Inpatient (IN) | payer MEDICARE, BC, SELFPAY ==
[2021-12-23] VITALS (140 sets, daily range): BP systolic 93–186; BP diastolic 26–90; PULSE 34–75; RESP 11–29; TEMP 36.4–37; O2SAT 91–100; BMI 50.8
--- NOTE | ~2021-12-23 | US_ITS ---
EXAMINATION: US venous doppler [facility] DATE: 12/24/2021 07:52 INDICATION: Bilateral lower limb edema TECHNIQUE: Trevino scale images without and with compression and Doppler images of the bilateral lower e xtremity veins were obtained. COMPARISON: 12/14/2021 FINDINGS: The right common femoral vein, profunda femoral vein, femoral vein, popliteal vein, peroneal trunk, p osterior tibial veins, and greater saphenous vein are patent. The left common femoral vein, profunda femoral vein, femoral vein, popliteal vein, peroneal trunk, po sterior tibial veins, and greater saphenous vein are patent. IMPRESSION: 1. Patent bilateral lower extremity veins. No evidence of deep venous thrombosis. Reviewed, dictated and finalized at location A. INUOUS IMPROVEMENT ENGINEER IMPRESSION: 1. Patent bilateral lower extremity veins. No evidence of deep venous thrombosi s.
--- NOTE | ~2021-12-23 | US_ITS ---
EXAMINATION: US venous doppler [facility] DATE: 12/24/2021 07:54 INDICATION: Right upper extremity edema TECHNIQUE: Grayscale ultrasound images without and with compression and Doppler ultrasound images of the right upper extremity veins were obtained. COMPARISON: None. FINDINGS: The right internal jugular vein, subclavian vein, axillary vein, brachial veins, basilic vein, radial vein, and ulnar vein are patent. There is thrombosis of the cephalic vein. IMPRESSION: 1. Thrombosis of the cephalic vein. Reviewed, dictated and finalized at location A. THALENE OPERATOR HELPER
--- NOTE | ~2021-12-23 | XR_ITS ---
EXAMINATION: XR chest 2V DATE: 12/23/2021 07:34 INDICATION: Shortness of breath TECHNIQUE: AP and lateral views of the chest are obtained. COMPARISON: 12/12/2021 FINDINGS: Cardiomegaly is noted. There is a mild diffuse interstitial pattern. No pleural effusion or pneumothorax. The left upper extremity PICC has been removed. IMPRESSION: 1. Cardiomegaly with mild pulmonary edema. Reviewed, dictated and finalized at location A. UIT JUDGE
--- NOTE | 2021-12-23 06:47 | ECG_ITS ---
Measurements Intervals [place] Rate: 58 P: [place]: 0 QRS: 26 QRSD: 92 T: 31 QT: 410 QTc: 404 Interpretive Statements JUNCTIONAL RHYTHM SUPRAVENTRICULAR BIGEMINY ABNORMAL ECG COMPARED TO ECG 12/14/2021 14:29:24 JUNCTIONAL RHYTHM NOW PRESENT SUPRAVENTRICULAR BIGEMINY NOW PRESENT Electronically Signed On 12-23-2021 7:03:53 ASSISTANT TODDLER TEACHER by Calin Fernandez D.O.
--- NOTE | 2021-12-23 07:05 | PC.NURSE ---
After straight cath, andrew seems to be more confused, unable to tell where she is. Couldn't tell him why she was in rehab, repeating herself
--- NOTE | 2021-12-23 07:06 | ED.GENADULT ---
HPI - General Adult General Chief complaint: Altered Mental Status Stated complaint: ams, uti/sob Time Seen by Provider: 12/23/21 06:59 History of Present Illness HPI narrative: Patient is a 71 y/o CF who p/w AMS from her rehab. Labs show recent joshua with creatinine of 2.9 up from 1.5. Patient oriented x 3 but certainly has confusion. NO c/o pain. Rehab concerned for UTI. Patien placed on 2L NC due to low O2 sat on arrival but no hypoxia. Pt not report SOA at this time. Bumex held yesterday by rehab. Related Data Home Medications Medication Instructions Recorded Confirmed atorvastatin 80 mg tablet 80 mg PO QAM 12/10/19 12/21/21 carbidopa 25 mg-levodopa 100 mg 3 tablet PO Q8H 12/10/19 12/18/21 tablet fluoxetine 40 mg capsule See Rx Instructions .Route .COMPLEX 12/10/19 12/21/21 oxcarbazepine 300 mg tablet 300 mg PO TID 12/10/19 12/18/21 alprazolam 1 mg tablet 1 mg PO QID 10/10/20 12/18/21 gabapentin 300 mg capsule 100 mg PO TID 10/10/20 12/18/21 allopurinol 100 mg tablet 100 mg PO DAILY 12/12/21 12/18/21 doxepin 25 mg capsule 25 mg PO BID 12/12/21 12/18/21 empagliflozin 10 mg tablet 10 mg PO DAILY 12/12/21 12/18/21 (Jardiance) ipratropium 0.5 mg-albuterol 3 mg 3 ml inhalation Q6H 12/12/21 12/18/21 (2.5 mg base)/3 mL nebulization soln prazosin 5 mg capsule 5 mg PO HS 12/12/21 12/18/21 ropinirole 0.5 mg tablet 0.5 mg PO HS 12/12/21 12/21/21 carvedilol 6.25 mg tablet 6.25 mg PO Q12H 12/21/21 12/21/21 primidone 50 mg tablet 50 mg PO BID 12/21/21 12/21/21 acetaminophen 650 mg tablet 650 mg PO Q6H PRN Pain 12/23/21 albuterol sulfate 90 mcg/actuation inhalation 12/23/21 aerosol inhaler Allergies Allergy/AdvReac Type Severity Reaction Status Date / Time iodine Allergy Severe Hives Verified 12/23/21 07:07 latex Allergy Severe Hives Verified 12/23/21 07:07 Contrast Media Allergy Mild Hives Uncoded 12/23/21 07:07 Review of Systems Review of Systems: ROS unobtainable: Yes unobtainable due to mental status PMFSH Past Medical History Medical History (Updated 12/23/21 @ 13:14 by Sasha Sales PA-C) Anxiety BMI greater than 40 Chronic anemia Chronic kidney disease, stage 3 Baseline creatinine ranges between 1.2 and 1.50. Chronic obstructive pulmonary disease Depression Gastroesophageal reflux disease GI bleed (01/2010) Secondary to peptic ulcer. Heart failure with preserved ejection fraction Hyperlipidemia Hypertension Hypothyroidism Kidney stones Neuropathy Obstructive sleep apnea Patient does not use PAP therapy at nighttime. Osteoarthritis Parkinson disease Type 2 diabetes mellitus Surgical History Surgical History History of bilateral knee arthroplasty History of hysterectomy History of sinus surgery Family History Family History Grandparent Diabetes mellitus Acute myocardial infarction Father Acute myocardial infarction Mother Acute myocardial infarction Social History Social History (Updated 12/23/21 @ 13:11 by Sasha Sales PA-C) Social History: Surrogate decision maker: Fly Rondon, . Code status: Full code. Smoking packs per day: 1 Smoking cigarettes per day: 20.0 Years smoked: 40 Smoking pack-years: 40.00 Smoking status: Former smoker Alcohol intake: never Substance use: never Substance use type: does not use Lack of Transportation: No Lack of Food: Never True Current Housing: I Have Housing Concerned About Future Housing: No Difficulty Paying Gas/Electric Bills: No Difficulty Paying for Meds: No Currently Unemployed: No Education: High School Diploma/GED Difficulty w/ Childcare or Family Care: No Additional living arrangements comments: Resides in [place] with her . Spiritual care concerns: No Exam Narrative: GENERAL: IlWell-appearing, well-nourished, and in no acute distress.
[2021-12-23 07:15] LABS: Appearance Urine Clear (Clear); Bilirubin Urine Negative (Negative); Blood Urine Negative (Negative); Color Urine Yellow (Yellow); Glucose Urine UA Trace mg/dL (Negative); Ketones Urine Negative (Negative); Leukocyte Esterase Ur Negative LEU/UL (Negative); Nitrate Urine Negative (Negative); Protein Urine Negative (Negative); Specific Grav Ur 1.015 (1.001-1.035); Urobilinogen Urine 0.2 mg/dL (<2.0)
[2021-12-23 07:16] LABS: Basophils Percent Auto 0.2 % (0.2-1.2); Eosinophils Percent Auto 0.1 % (0-4.4); Hematocrit 24.1 % (37.0-47.0); Hemoglobin 7.5 g/dL (12.0-15.0); Immature Granulocyte Absolute 0.12 K/mm3 (0.00-0.031); Immature Granulocyte Percent A 0.8 % (0-0.5); Lymphocytes Absolute Auto 0.67 K/mm3 (0.9-3.2); Lymphocytes Percent Auto 4.4 % (18.3-44.2); Mean Corpuscular HGB Conc 31.1 g/dl (32-36); Mean Corpuscular Hemoglobin 31.6 pg (26-34); Mean Corpuscular Volume 101.7 fl (80-100); Mean Platelet Volume 11.1 fl (7.4-10.4); Monocytes Absolute Auto 1.1 K/mm3 (0.1-0.6); Monocytes Percent Auto 6.9 % (2.6-8.5); Neutrophils Absolute Auto 13.5 K/mm3 (1.3-6.7); Neutrophils Percent Auto 87.6 % (45.5-73.1); Platelet Count Result 200 k/mm3 (150-375); Red Blood Count 2.37 M/mm3 (4.2-5.4); Red Cell Distribution Width 14.6 % (11.5-14.5); White Blood Count 15.4 K/mm3 (4.5-10.0)
[2021-12-23 07:23] LABS: Alanine Aminotransferase 9 U/L (6-35); Albumin Level 3.7 g/dL (3.5-5.1); Alkaline Phosphatase 123 U/L (38-126); Anion Gap 13 mmol/L (8-16); Aspartate Amino Transferase 19 U/L (14-36); Bilirubin,Total 0.4 mg/dL (0.2-1.3); Blood Urea Nitrogen 66 mg/dL (7-17); Calcium 7.5 mg/dL (8.4-10.2); Carbon Dioxide 15 mmol/L (22-30); Chloride 103 mmol/L (98-107); Estimated CRCL calculation 19 ml/min; Estimated Glomerular Filt Rate 14; Glucose 137 mg/dL (65-110); Potassium 4.6 mmol/L (3.4-5.0); Sodium 131 mmol/L (137-145)
[2021-12-23 07:30] LABS: Mucus Urine Rare /lpf; RBC Urine 0-2 /hpf (0-2); Squamous Epithelial Cell Urine Rare /hpf (Few); WBC Urine 0-3 /hpf
[2021-12-23 07:31] LABS: INR 1.3; Prothrombin Time 15.3 Seconds (11.1-14.7)
[2021-12-23 07:32] LABS: Partial Thromboplastin Time 31.4 SECONDS (22.3-36.8)
[2021-12-23 07:40] LABS: Add Urine Microscopic? YES
[2021-12-23 08:00] LABS: NT Pro B Type Natriuretic Pept 4790 pg/mL (5-100)
[2021-12-23 09:47] LABS: Influenza A QL RT-PCR Negative (Negative); Influenza B QL RT-PCR Negative (Negative); SARS-CoV-2 RNA PCR Negative
[2021-12-23] MEDS: CALCIUM GLUCONATE 1,000 MG/10 ML VIAL 1000 MG IV PUSH (11:09)
[2021-12-23 11:33] LABS: Lactic Acid Reflex 0.6 mmol/L (0.7-2.0)
--- NOTE | 2021-12-23 11:40 | WPDCNINT ---
Assessment and Plan Assessment and plan (1) Bradycardia: Code(s): R00.1 - Bradycardia, unspecified Status: Acute Assessment and Plan: Patient presented with bradycardia last admission and her Coreg was discontinued. The heart rate her improved and she was discharged. Echocardiogram was done at that time and patient was evaluated by Cardiology Now she returns again with bradycardia EKG shows junctional rhythm This could be secondary to metabolic derangements versus medications that patient is on Patient received calcium Will give sodium bicarbonate for metabolic acidosis Hold all nonessential medication She had a normal TSH on last admission Dopamine infusion (2) UTI (urinary tract infection): Code(s): N39.0 - Urinary tract infection, site not specified Status: Acute Assessment and Plan: Patient was recently treated for UTI and a culture on 12/19 grew out Enterococcus Will start empiric Rocephin Send urine culture (3) NESHA (acute kidney injury): Code(s): N17.9 - Acute kidney failure, unspecified Status: Acute Assessment and Plan: Patient has chronic kidney disease and was recently treated for NESHA on last admission Patient is back with elevated creatinine. She was on diuretics and appears intravascularly dry on exam Bumex, losartan on hold She will be gentle hydration P.o. bicarb for metabolic acidosis Her other electrolytes and acceptable condition Check CK Consult nephrology She had a recent CT abdomen pelvis on last admission (4) Chronic kidney disease, stage 3: Qualifiers: Chronic kidney disease stage 3 subtype: stage 3a (GFR 45-59) Qualified Code(s): N18.31 - Chronic kidney disease, stage 3a Code(s): N18.30 - Chronic kidney disease, stage 3 unspecified Status: Acute Assessment and Plan: See above (5) Type 2 diabetes mellitus: Qualifiers: Diabetes mellitus complication status: without complication Diabetes mellitus mcc insulin use: with mcc use Qualified Code(s): E11.9 - Type 2 diabetes mellitus without complications; Z79.4 - exterminator helper termite (current) use of insulin Code(s): E11.9 - Type 2 diabetes mellitus without complications Status: Acute Assessment and Plan: Sliding scale insulin (6) Pulmonary edema: Code(s): J81.1 - Chronic pulmonary edema Status: Acute Assessment and Plan: Chest x-ray suggest pulmonary edema and her BNP is elevated Patient on 2 L nasal cannula with no edema or significant crackles on exam Echo done recently showed diastolic dysfunction Will give cautious amount of IV fluids in light of worsening renal function and dehydration (7) Encephalopathy: Code(s): G93.40 - Encephalopathy, unspecified Status: Acute Assessment and Plan: Patient is drowsy but easily arousable. She is AO x3. Follows all commands and moves all 4 extremities Suspect this is toxic metabolic encephalopathy as patient is on multiple medications that can be sedatives like Xanax Requip Neurontin and now she has acute renal failure Hold nonessential medication Monitor Plan DVT prophylaxis -Lovenox Nutrition -renal diabetic diet Code Status -patient wishes to be Full Code Patient's updated at bedside Rn Telehealth Consult Note Consult date: 12/23/21 Reason for consult: Bradycardia, UTI HPI: 71 year old female with significant past medical history of chronic anemia, CKD stage 3, COPD, essential hypertension, hypothyroidism, neuropathy, Parkinson's disease, diabetes type 2, will recently discharged from [facility] on 12/18/2021 after treatment for bradycardia and UTI to rehab was sent back from rehab with altered mental status. In ED patient was AO x3 but was found to be bradycardic, elevated creatinine and WBC count. She was on Bumex which was discontinued WBC 15.4, hemoglobin 7.5, creatinine 3.2 BNP 4790 She had a urine culture done on 12/19 rehab which grew out
[2021-12-23 11:54] LABS: Procalcitonin 0.2 ng/mL
[2021-12-23 12:25] LABS: Creatine Kinase 37 U/L (30-135)
[2021-12-23 12:36] LABS: Glucose Point of Care 156 mg/dl (65-105)
[2021-12-23] MEDS: SODIUM CHLORIDE 0.9% IV 1,000 ML 999 ML IV CONT (12:43)
[2021-12-23] MEDS: SODIUM BICARBONATE 8.4% 50 MEQ/50 ML SYRINGE IV PUSH ×2 (12:44→17:43)
[2021-12-23] MEDS: DOPamine 400 MG/D5W 250 ML 400 MG/250 ML BAG 23.85 MG IV CONT (12:44)
[2021-12-23] MEDS: ATROPINE SULFATE 1 MG/ML VIAL 0.5 MG IV PUSH (12:52)
[2021-12-23 14:29] LABS: Alveolar/Arterial O2 Gradient 38.5 mmHg; Base Excess ABG -10.4 mEq/l (+/-2.0); Fractional Inspired Oxygen 24 %; HCO3 ABG 16.1 mEq/l (22.0-26.0); Oxygen Content ABG 11.8 %vol (16.0-22.0); Oxygen Saturation ABG 95.1 % (95.0-100.0); Oxyhemoglobin 94.2 % THb (90.0-100.0); PCO2 ABG 38.4 mmHg (35.0-45.0); PO2 ABG 86.9 mmHg (80.0-100.0); PO2 FiO2 Ratio Arterial Blood 3.62 %; Total Hemoglobin 8.8 g/dL (12.0-18.0)
[2021-12-23 14:29] LABS: Ammonia < 9 umol/L (9-30)
[2021-12-23 14:33] LABS: pH ABG 7.241 (7.350-7.450)
[2021-12-23 14:34] LABS: Device NASAL CANNULA; Modified Allen's Test Pass; Site Drawn LEFT RADIAL
[2021-12-23 14:58] LABS: Anion Gap 16 mmol/L (8-16); Blood Urea Nitrogen 54 mg/dL (7-17); Calcium 5.9 mg/dL (8.4-10.2); Carbon Dioxide 13 mmol/L (22-30); Chloride 108 mmol/L (98-107); Estimated CRCL calculation 26 ml/min; Estimated Glomerular Filt Rate 21; Glucose 180 mg/dL (65-110); Magnesium 1.8 mg/dL (1.6-2.3); Potassium 3.4 mmol/L (3.4-5.0); Sodium 137 mmol/L (137-145)
--- NOTE | 2021-12-23 15:22 | PC.NURSE ---
standard heart healthly food tray ordered
--- NOTE | 2021-12-23 16:19 | ADMGEN ---
This patient, Jenni Rondon, was admitted to Intensive Care Unit-5. Patient/family oriented to hospital policies and general routines including ID bracelet, bed and alarms, visiting hours, pain management, procedures, bathroom and other care routines, personal items, smoking policy, room service/diet, and visiting hours. Information on how to activate the Rapid Response Team has been discussed. Patient/Family are encouraged to report perceived risks to care and to ask questions if they do not understand what they are told or what they should do.
--- NOTE | 2021-12-23 16:20 | ADMGEN ---
This patient, Jenni Rondon, was admitted to Intensive Care Unit-5 at 1619. Patient/family oriented to hospital policies and general routines including ID bracelet, bed and alarms, visiting hours, pain management, procedures, bathroom and other care routines, personal items, smoking policy, room service/diet, and visiting hours. Information on how to activate the Rapid Response Team has been discussed. Patient/Family are encouraged to report perceived risks to care and to ask questions if they do not understand what they are told or what they should do.
[2021-12-23 16:43] LABS: Glucose Point of Care 162 mg/dl (65-105)
--- NOTE | 2021-12-23 17:00 | PM.IMHP ---
H&P: HPI History of Present Illness Date/Time: 12/23/21 17:00 Chief Complaint: Altered mental status. Narrative: This is a very pleasant 71-year-old female with multiple medical problems including Parkinson's disease, hypertension, hyperlipidemia, heart failure with preserved ejection fraction, type 2 diabetes mellitus, hypothyroidism, untreated sleep apnea, chronic kidney disease, chronic anemia, chronic obstructive pulmonary disease, GERD, peptic ulcers, depression, and anxiety who presented to the emergency department via EMS from [facility] for evaluation of altered mental status. She was hospitalized at [facility] and [facility] within the last month for diastolic CHF exacerbation and symptomatic junctional bradycardia respectively. With her most recent hospitalization she was on dopamine for a period of time and she eventually returned to a sinus rhythm after her carvedilol was discontinued. She has been doing well in rehab and however over the last couple of days she has been weak and she was found to have worsening renal function (creatinine of 2.9 up from 1.5) and hyponatremia on labs. She was started on IV fluid rehydration her diuretics were held. This morning she seemed to be confused when staff went to wake her and she was brought in again for evaluation. It should be noted that she was in sinus rhythm at rehab up until the last couple of days when she started to dip down into the 40s though she reportedly been asymptomatic. At the time my evaluation she is more awake and alert (in the ER she reportedly was alert and oriented x3 but confused to situation) and she has no significant complaints. She specifically denies lightheadedness, dizziness, visual changes, chest pain, pleuritic pain, palpitations, shortness of breath, nausea, vomiting, sweats, and dysuria. On arrival to the ER her blood pressures were at the lower end of normal and her heart rate has been as low as 34 beats per minute. She has since been started on a dopamine drip with improvement in both of these readings. Labs were significant for white blood cell count of 15.4, a slight decrease in hemoglobin to 7.5, BUN and creatinine of 66 and 3.20 respectively, sodium 131, serum bicarb 15. She has been started on ceftriaxone for an abnormal urinalysis collected at the rehab facility and urine is being sent for culture today. She was given an amp of sodium bicarbonate and has been started on for doses of sodium bicarb tablets in addition to judicious IV fluid rehydration. Review of Systems Review of Systems: Twelve systems were reviewed and are negative except for as per HPI. [facility] Past Medical History Medical History Anxiety BMI greater than 40 Chronic anemia Chronic kidney disease, stage 3 Baseline creatinine ranges between 1.2 and 1.50. Chronic obstructive pulmonary disease Depression Gastroesophageal reflux disease GI bleed (01/2010) Secondary to peptic ulcer. Heart failure with preserved ejection fraction Hyperlipidemia Hypertension Hypothyroidism Kidney stones Neuropathy Obstructive sleep apnea Patient does not use PAP therapy at nighttime. Osteoarthritis Parkinson disease Type 2 diabetes mellitus Surgical History Surgical History History of bilateral knee arthroplasty History of hysterectomy History of sinus surgery Family History Family History Grandparent Diabetes mellitus Acute myocardial infarction Father Acute myocardial infarction Mother Acute myocardial infarction Social History Social History Social History: Surrogate decision maker: Fly Rondon, . Code status: Full code. Smoking packs per day: 1 Smoking cigarettes per day: 20.0 Years smoked: 40 Smoking pack-years: 40.00 Smoking stat
[2021-12-23] MEDS: LACTATED RINGERS 1,000 ML 125 ML IV CONT (17:43)
[2021-12-23] MEDS: SODIUM BICARBONATE TAB 650 MG TABLET 1300 MG PO (17:45)
[2021-12-23 20:30] LABS: Glucose Point of Care 151 mg/dl (65-105)
[2021-12-23] MEDS: CARBIDOPA/LEVODOPA 25/100 MG TABLET 3 TABLET PO (21:56)
[2021-12-23] MEDS: diphenhydrAMINE HCl CAP 25 MG CAPSULE PO (21:56)
[2021-12-24] VITALS (15 sets, daily range): BP systolic 122–165; BP diastolic 40–143; PULSE 56–72; RESP 12–24; TEMP 36.4–36.9; O2SAT 95–100
[2021-12-24] MEDS: LACTATED RINGERS 1,000 ML 125 ML IV CONT (01:50)
[2021-12-24 04:25] LABS: Basophils Percent Auto 0.4 % (0.2-1.2); Eosinophils Absolute Auto 0.3 K/mm3 (0-0.3); Eosinophils Percent Auto 2.5 % (0-4.4); Hematocrit 24.6 % (37.0-47.0); Hemoglobin 7.6 g/dL (12.0-15.0); Immature Granulocyte Absolute 0.02 K/mm3 (0.00-0.031); Immature Granulocyte Percent A 0.2 % (0-0.5); Mean Corpuscular HGB Conc 30.9 g/dl (32-36); Mean Corpuscular Hemoglobin 31.3 pg (26-34); Mean Corpuscular Volume 101.2 fl (80-100); Mean Platelet Volume 11.6 fl (7.4-10.4); Monocytes Absolute Auto 0.7 K/mm3 (0.1-0.6); Monocytes Percent Auto 7.4 % (2.6-8.5); Neutrophils Absolute Auto 8.4 K/mm3 (1.3-6.7); Neutrophils Percent Auto 83.5 % (45.5-73.1); Platelet Count Result 190 k/mm3 (150-375); Red Blood Count 2.43 M/mm3 (4.2-5.4); Red Cell Distribution Width 14.5 % (11.5-14.5)
[2021-12-24 04:43] LABS: Alanine Aminotransferase 8 U/L (6-35); Albumin Level 3.5 g/dL (3.5-5.1); Alkaline Phosphatase 115 U/L (38-126); Anion Gap 15 mmol/L (8-16); Aspartate Amino Transferase 15 U/L (14-36); Bilirubin,Total 0.3 mg/dL (0.2-1.3); Blood Urea Nitrogen 55 mg/dL (7-17); Calcium 8.2 mg/dL (8.4-10.2); Carbon Dioxide 19 mmol/L (22-30); Chloride 105 mmol/L (98-107); Estimated CRCL calculation 24 ml/min; Estimated Glomerular Filt Rate 18; Glucose 91 mg/dL (65-110); Magnesium 2.2 mg/dL (1.6-2.3); Phosphorus 5.4 mg/dL (2.5-4.5); Potassium 4.4 mmol/L (3.4-5.0); Sodium 139 mmol/L (137-145)
[2021-12-24] MEDS: CARBIDOPA/LEVODOPA 25/100 MG TABLET 3 TABLET PO ×3 (05:03→22:38)
[2021-12-24] MEDS: ALPRAZolam (*CRX) 0.5 MG TABLET PO ×3 (08:28→16:31)
[2021-12-24] MEDS: SODIUM BICARBONATE TAB 650 MG TABLET 1300 MG PO (08:29)
[2021-12-24] MEDS: ATORVASTATIN 40 MG TABLET 80 MG PO (08:29)
[2021-12-24] MEDS: ENOXAPARIN 30 MG/0.3 ML SYRINGE SUB-Q (08:29)
[2021-12-24] MEDS: EMPAGLIFLOZIN 10 MG TABLET PO (08:30)
[2021-12-24] MEDS: SODIUM BICARBONATE 8.4% 150 MEQ in WATER, STERILE FOR INJECTION 950 ML 75 MEQ IV CONT (08:31)
[2021-12-24 08:33] LABS: Glucose Point of Care 104 mg/dl (65-105)
[2021-12-24] MEDS: ACETAMINOPHEN 325 MG TABLET 650 MG PO ×2 (08:33→16:31)
[2021-12-24 08:45] LABS: Creatinine Urine 43.9 mg/dL; Urea Random Urine 506 MG/DL
[2021-12-24 08:46] LABS: Sodium Urine Random 51 meq/L
--- NOTE | 2021-12-24 09:41 | WPDINTPN ---
Progress Note: A&P Assessment and Plan (1) Bradycardia: Code(s): R00.1 - Bradycardia, unspecified Status: Acute Assessment and Plan: Patient presented with bradycardia last admission and her Coreg was discontinued. The heart rate her improved and she was discharged. Echocardiogram was done at that time and patient was evaluated by Cardiology Now she returns again with bradycardia EKG showed junctional rhythm on presentation She was started on dopamine infusion which now has been weaned off as patient is now in sinus rhythm and bradycardia and blood pressure has resolved Suspect this is most likely secondary to metabolic derangements or her multiple psychiatric medication medications that patient is on Patient received calcium in ED Patient did receive some sodium bicarbonate for metabolic acidosis and is getting IV fluids with bicarb I has all her nonessential medication which will be resumed slowly She had a normal TSH on last admission Dopamine infusion is off now Cardiology has been consulted (2) UTI (urinary tract infection): Code(s): N39.0 - Urinary tract infection, site not specified Status: Acute Assessment and Plan: Patient was recently treated for UTI and a culture on 12/19 grew out Enterococcus Continue empiric Rocephin Send urine culture (3) NESHA (acute kidney injury): Code(s): N17.9 - Acute kidney failure, unspecified Status: Acute Assessment and Plan: Patient has chronic kidney disease and was recently treated for NESHA on last admission Patient is back with elevated creatinine. She was on diuretics and appears intravascularly dry on exam Bumex, losartan on hold She will be gentle hydration change IV fluids to bicarb for metabolic acidosis Her other electrolytes and acceptable condition Normal CK Consult nephrology She had a recent CT abdomen pelvis on last admission (4) Chronic kidney disease, stage 3: Qualifiers: Chronic kidney disease stage 3 subtype: stage 3a (GFR 45-59) Qualified Code(s): N18.31 - Chronic kidney disease, stage 3a Code(s): N18.30 - Chronic kidney disease, stage 3 unspecified Status: Acute Assessment and Plan: See above (5) Type 2 diabetes mellitus: Qualifiers: Diabetes mellitus oysterman insulin use: with oysterman use Diabetes mellitus complication status: without complication Qualified Code(s): E11.9 - Type 2 diabetes mellitus without complications; Z79.4 - rodent exterminator (current) use of insulin Code(s): E11.9 - Type 2 diabetes mellitus without complications Status: Acute Assessment and Plan: Sliding scale insulin (6) Pulmonary edema: Code(s): J81.1 - Chronic pulmonary edema Status: Acute Assessment and Plan: Chest x-ray suggest pulmonary edema and her BNP is elevated Patient on 2 L nasal cannula with no edema or significant crackles on exam Echo done recently showed diastolic dysfunction Continue cautious amount of IV fluids in light of worsening renal function and dehydration (7) Encephalopathy: Code(s): G93.40 - Encephalopathy, unspecified Status: Acute Assessment and Plan: This was likely toxic metabolic encephalopathy as patient is on multiple medications that can be sedatives like Xanax Requip Neurontin and now she has acute renal failure Now resolved Continue to Hold nonessential medication and react slowly Monitor Plan DVT prophylaxis -Lovenox Nutrition -renal diabetic diet Code Status -patient wishes to be Full Code Patient's updated at bedside PT OT Incentive spirometry Transfer out of ICU today Subjective Date/time seen: 12/24/21 Patient is awake and alert this morning and is tearful and anxious. She states she feels that she is dying and she is worried about her children who have developmental disability. She is requesting that I connected with some agency can help her. She is requesting her anxiety medicatio
[2021-12-24] MEDS: OXcarbazepine 300 MG TABLET PO ×3 (09:42→16:32)
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
[2021-12-24 12:09] LABS: Glucose Point of Care 240 mg/dl (65-105)
[2021-12-24] MEDS: INSULIN ASPART (*BKC) 100 UNITS/ML SUB-Q (12:27)
--- NOTE | 2021-12-24 12:48 | PM.CNNEP ---
Assessment and Plan Assessment and plan (1) NESHA (acute kidney injury): Code(s): N17.9 - Acute kidney failure, unspecified Status: Acute Assessment and Plan: etikology likely due to a combination of volume depletion possibly worsened by diuretic therapy, ARB use, and relative hypotension + bradycardia improvement noted with bicarbonate fluids agree with gentle IVF hydration as respiratory status allows follow repeat labs and UOP (2) Stage 3b chronic kidney disease: Code(s): N18.32 - Chronic kidney disease, stage 3b Status: Chronic Assessment and Plan: creatinine has been running ~ 1.5 - 1.6mg/dl presumably due to HTN, DM, vascular disease and age (3) Bradycardia: Code(s): R00.1 - Bradycardia, unspecified Status: Acute Assessment and Plan: resolving off dopamine infusion due to medications versus instrinic cardiac etiology(?) Cardiology recommendations noted (4) Altered mental status: Code(s): R41.82 - Altered mental status, unspecified Status: Acute Assessment and Plan: appears resolved if not resolving due to NESHA +/- medications follow fatimah (5) Type 2 diabetes mellitus: Qualifiers: Diabetes mellitus half-way insulin use: with extermination supervisor use Diabetes mellitus complication status: without complication Qualified Code(s): E11.9 - Type 2 diabetes mellitus without complications; Z79.4 - FPC (current) use of insulin Code(s): E11.9 - Type 2 diabetes mellitus without complications Status: Acute Assessment and Plan: follow accuchecks glycemic control Will contine to follow. History of Present Illness Reason for Consult Consult date: 12/24/21 Reason for consult: acute renal failure (on chronic kidney disease) Chief Complaint Chief complaint: NESHA/Pulmonary Edema History of Present Illness Narrative: The patient is a 71-year-old female with a past medical history as outlined below who presented to [facility] Emergency Room form the [facility] for further evaluation of altered mental status. The patient was just recently hospitalized here at [facility] for acute kidney injury on top for baseline kidney disease as well as bradycardia. Her bradycardia appear to resolve with the use of Dopamine therapy and discontinuation of her Carvedilol. Her diastolic heart failure at that time was optimized as well and with these supportive interventions, her renal function seem to improve back to baseline. She was subsequently discharged to [facility] for further PT/ OT but apparently, in the last few days, she has been noted to have worsening renal function. On the day of admission, her mentation seemed to deteriorate which prompted transfer to the ER for further assessment. Evaluation in the emergency room demonstrated bradycardia once again in the heart rate of the 30 -40s with relative hypotension but her mentation seemed to be somewhat better than what was elaborated by the nurses at the [facility]. repeat labs were significant for a mildly elevated white blood cell count in association with anemia with a hemoglobin of 7.5 at, along with worsening renal function with a BUN of 66 and a creatinine of 3.2. She also had some element of hyponatremia with a sodium 131 and a metabolic acidosis with a serum bicarbonate of 15. her urinalysis was somewhat suggestive of a urinary tract infection as well. Appropriate cultures were obtained and she was started on IV antibiotic therapy as well as IV dopamine and fluids for her hypotension and bradycardia. She was subsequent transferred to the intensive care unit for further evaluation and therapy. Since her admission, she has been weaned off dopamine as a bradycardia as well as her hypotension are doing significantly better. IV fluids with bicarbonate were instituted on admission given her metabolic acidosis and
[2021-12-24] MEDS: GABAPENTIN 100 MG CAPSULE PO ×2 (13:34→16:31)
--- NOTE | 2021-12-24 13:42 | PM.IMPN ---
Progress Note: A&P Assessment and Plan (1) Bradycardia: Code(s): R00.1 - Bradycardia, unspecified Status: Acute Assessment and Plan: The patient was admitted to this facility just last week with bradycardia at which time her carvedilol with hindu of sinus rhythm. She returns once again today with junctional bradycardia. Cardiology has been consulted for their opinion. At this time she remains in ICU on a dopamine infusion with improvement in her heart rate and blood pressures, which were at the low end of normal on arrival. 12/24/2021 interval history: patient is admitted with altered mental status etiology uncertain possibly multifactorial is found to have a bradycardia, and other medical problems currently patient is more alert and oriented responded presented, patient was seen by counselor education professor recommended patient may care for bradycardia this may element 1 of her problems, is patient was also and metabolic acidosis upon arrival and was given bicarb, upon arrival her CO2 was 13 on metabolic panel it is mow trending up and now it is 19, patient is more clinically oriented, patient and her will decide about the pacemaker and further recommendation to follow, patient seen by insurance claim representative and appreciate. (2) Acute on chronic kidney failure: Code(s): N17.9 - Acute kidney failure, unspecified; N18.9 - Chronic kidney disease, unspecified Status: Acute Assessment and Plan: Labs done a couple of days ago showed worsening renal function and she was started on IV fluids; despite fluids her creatinine continues to rise. She may be intravascularly depleted from diuresis though would consider hypoperfusion from bradycardia and soft blood pressures as well. She will be cautiously hydrated with close monitoring of volume status and strict I/O. Diuretic and ARB have been placed on hold. She received an amp of bicarb in the emergency department has been started on p.o. bicarb for metabolic acidosis related to the worsening renal function. Nephrology has been consulted for their opinion. (3) Encephalopathy: Code(s): G93.40 - Encephalopathy, unspecified Status: Acute Assessment and Plan: She has reportedly become more weak and a bit confused the last couple of days. She is alert and oriented x4 however at the time my evaluation. She was drowsy earlier on but is easily arousable at the time my evaluation. May very well be secondary to worsening renal function or even bradycardia though that seems less likely. She is on multiple medications with sedating affects including Requip, Neurontin, and Xanax and nonessential medications are on hold. No focal deficits on exam. (4) Pulmonary edema: Code(s): J81.1 - Chronic pulmonary edema Status: Acute Assessment and Plan: Asymptomatic at this time. Will need to monitor volume status closely while cautiously hydrating. (5) Heart failure with preserved ejection fraction: Code(s): I50.30 - Unspecified diastolic (congestive) heart failure Status: Acute Assessment and Plan: Recent echocardiogram showed preserved systolic function with diastolic dysfunction. She has mild edema on exam and her BNP is elevated. Diuretics on hold given worsening renal function and she is being cautiously hydrated. Monitor volume status closely. (6) Chronic anemia: Code(s): D64.9 - Anemia, unspecified Status: Acute Assessment and Plan: Hemoglobin has trended down over the past several months. Continue to monitor transfuse if indicated. (7) Recent urinary tract infection: Code(s): Z87.440 - Personal history of urinary (tract) infections Status: Acute Assessment and Plan: Continue ceftriaxone pending culture. (8) Type 2 diabetes mellitus: Qualifiers: 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 exterminator insulin use: with longterm use Diabetes mellitus complication status: without complication
--- NOTE | 2021-12-24 15:39 | PC.NURSE ---
Drs. Santoyo and Sneha notified of right cephalic vein thrombosis. No new orders at this time.
[2021-12-24 16:21] LABS: Glucose Point of Care 76 mg/dl (65-105)
[2021-12-24] MEDS: PRIMIDONE 50 MG TABLET PO (16:32)
[2021-12-24] MEDS: LACTATED RINGERS 1,000 ML 75 ML IV CONT (16:36)
[2021-12-24 22:19] LABS: Glucose Point of Care 115 mg/dl (65-105)
[2021-12-24] MEDS: SALINE LOCK FLUSH 10 ML IV PUSH (22:39)
[2021-12-25] VITALS (14 sets, daily range): BP systolic 137–168; BP diastolic 56–83; PULSE 53–70; RESP 14–20; TEMP 36.6–37.1; O2SAT 93–99
[2021-12-25 04:59] LABS: Basophils Absolute Auto 0.1 K/mm3 (0.0-0.1); Basophils Percent Auto 0.7 % (0.2-1.2); Eosinophils Absolute Auto 0.4 K/mm3 (0-0.3); Eosinophils Percent Auto 4.9 % (0-4.4); Hematocrit 24.2 % (37.0-47.0); Hemoglobin 7.6 g/dL (12.0-15.0); Immature Granulocyte Absolute 0.04 K/mm3 (0.00-0.031); Immature Granulocyte Percent A 0.5 % (0-0.5); Lymphocytes Percent Auto 13.4 % (18.3-44.2); Mean Corpuscular HGB Conc 31.4 g/dl (32-36); Mean Corpuscular Hemoglobin 31.5 pg (26-34); Mean Corpuscular Volume 100.4 fl (80-100); Mean Platelet Volume 11.4 fl (7.4-10.4); Monocytes Absolute Auto 0.9 K/mm3 (0.1-0.6); Monocytes Percent Auto 11.9 % (2.6-8.5); Neutrophils Absolute Auto 5.1 K/mm3 (1.3-6.7); Neutrophils Percent Auto 68.6 % (45.5-73.1); Platelet Count Result 180 k/mm3 (150-375); Red Blood Count 2.41 M/mm3 (4.2-5.4); Red Cell Distribution Width 14.6 % (11.5-14.5); White Blood Count 7.5 K/mm3 (4.5-10.0)
[2021-12-25] MEDS: CARBIDOPA/LEVODOPA 25/100 MG TABLET 3 TABLET PO ×3 (04:59→21:05)
[2021-12-25] MEDS: ACETAMINOPHEN 325 MG TABLET 650 MG PO ×2 (04:59→20:54)
[2021-12-25] MEDS: SALINE LOCK FLUSH 10 ML IV PUSH ×3 (05:00→20:57)
[2021-12-25 05:14] LABS: Alanine Aminotransferase 8 U/L (6-35); Albumin Level 3.5 g/dL (3.5-5.1); Alkaline Phosphatase 144 U/L (38-126); Anion Gap 8 mmol/L (8-16); Aspartate Amino Transferase 20 U/L (14-36); Bilirubin,Total 0.3 mg/dL (0.2-1.3); Blood Urea Nitrogen 43 mg/dL (7-17); Calcium 8.2 mg/dL (8.4-10.2); Carbon Dioxide 23 mmol/L (22-30); Chloride 106 mmol/L (98-107); Estimated CRCL calculation 29 ml/min; Estimated Glomerular Filt Rate 23; Glucose 97 mg/dL (65-110); Magnesium 2.1 mg/dL (1.6-2.3); Phosphorus 4.1 mg/dL (2.5-4.5); Potassium 4.5 mmol/L (3.4-5.0); Sodium 137 mmol/L (137-145)
[2021-12-25] MEDS: LACTATED RINGERS 1,000 ML 75 ML IV CONT ×2 (05:49→23:14)
[2021-12-25 08:35] LABS: Glucose Point of Care 98 mg/dl (65-105)
[2021-12-25] MEDS: ALPRAZolam (*CRX) 0.5 MG TABLET PO ×3 (08:38→17:17)
[2021-12-25] MEDS: ENOXAPARIN 30 MG/0.3 ML SYRINGE SUB-Q (08:38)
[2021-12-25] MEDS: polyethylene glycoL 3350 17 GM POWD.PACK PO (08:38)
[2021-12-25] MEDS: GABAPENTIN 100 MG CAPSULE PO ×3 (08:39→17:17)
[2021-12-25] MEDS: OXcarbazepine 300 MG TABLET PO ×3 (08:39→17:18)
[2021-12-25] MEDS: EMPAGLIFLOZIN 10 MG TABLET PO (08:39)
[2021-12-25] MEDS: ATORVASTATIN 40 MG TABLET 80 MG PO (08:39)
[2021-12-25] MEDS: PRIMIDONE 50 MG TABLET PO ×2 (08:40→17:18)
[2021-12-25] MEDS: FLUoxetine HCL 10 MG CAPSULE 20 MG PO (09:02)
--- NOTE | 2021-12-25 10:15 | WPDINTPN ---
Progress Note: A&P Assessment and Plan (1) Bradycardia: Code(s): R00.1 - Bradycardia, unspecified Status: Acute Assessment and Plan: Patient presented with bradycardia last admission and her Coreg was discontinued. The heart rate her improved and she was discharged. Echocardiogram was done at that time and patient was evaluated by Cardiology Now she returns again with bradycardia EKG showed junctional rhythm on presentation She was started on dopamine infusion which now has been weaned off as patient is now in sinus rhythm and bradycardia and blood pressure has resolved Suspect this is most likely secondary to metabolic derangements or her multiple psychiatric medication medications that patient is on Patient received calcium in ED Patient did receive some sodium bicarbonate for metabolic acidosis and IV fluids with bicarb I held all her nonessential medication which are being resumed slowly She had a normal TSH on last admission Heart rate is improved and Dopamine infusion has been off for more than 24 hours Cardiology has evaluated the patient and considering placing permanent pacemaker (2) UTI (urinary tract infection): Code(s): N39.0 - Urinary tract infection, site not specified Status: Acute Assessment and Plan: Patient was recently treated for UTI and a culture on 12/19 grew out Enterococcus Continue empiric Rocephin Send urine culture (3) NESHA (acute kidney injury): Code(s): N17.9 - Acute kidney failure, unspecified Status: Acute Assessment and Plan: Patient has chronic kidney disease and was recently treated for NESHA on last admission Patient is back with elevated creatinine. She was on diuretics and appears intravascularly dry on exam Bumex, losartan on hold She is on gentle hydration Creatinine is improving is 2.1 today Her other electrolytes and acceptable condition Normal CK Consulted nephrology She had a recent CT abdomen pelvis on last admission (4) Chronic kidney disease, stage 3: Qualifiers: Chronic kidney disease stage 3 subtype: stage 3a (GFR 45-59) Qualified Code(s): N18.31 - Chronic kidney disease, stage 3a Code(s): N18.30 - Chronic kidney disease, stage 3 unspecified Status: Acute Assessment and Plan: See above (5) Type 2 diabetes mellitus: Qualifiers: Diabetes mellitus complication status: without complication Diabetes mellitus mcc insulin use: with mcc use Qualified Code(s): E11.9 - Type 2 diabetes mellitus without complications; Z79.4 - production statistical clerk (current) use of insulin Code(s): E11.9 - Type 2 diabetes mellitus without complications Status: Acute Assessment and Plan: Sliding scale insulin (6) Pulmonary edema: Code(s): J81.1 - Chronic pulmonary edema Status: Acute Assessment and Plan: Chest x-ray suggest pulmonary edema and her BNP is elevated Patient on 2 L nasal cannula with no edema or significant crackles on exam Echo done recently showed diastolic dysfunction Continue cautious amount of IV fluids in light of worsening renal function and dehydration (7) Encephalopathy: Code(s): G93.40 - Encephalopathy, unspecified Status: Acute Assessment and Plan: This was likely toxic metabolic encephalopathy as patient is on multiple medications that can be sedatives like Xanax Requip Neurontin and now she has acute renal failure Now resolved Continue to Hold nonessential medication and react slowly Monitor (8) Neuropathy: Code(s): G62.9 - Polyneuropathy, unspecified Status: Acute (9) Depression: Qualifiers: Depression Type: major depressive disorder Major depression recurrence: single episode Active/Remission status: in partial remission Qualified Code(s): F32.4 - Major depressive disorder, single episode, in partial remission Code(s): F32.9 - Major depressive disorder, single episode, unspecified Status:
[2021-12-25] MEDS: TOPIRAMATE 100 MG TABLET PO ×2 (11:35→20:54)
[2021-12-25 12:03] LABS: Glucose Point of Care 144 mg/dl (65-105)
--- NOTE | 2021-12-25 12:46 | PM.PNCARD ---
Progress Note: A&P Assessment and Plan (1) Bradycardia: Code(s): R00.1 - Bradycardia, unspecified Status: Acute Assessment and Plan: Resolved. Maintaining sinus rhythm heart rate 60s 70s. Initial presentation junctional with sinus mechanism in bigeminy heart rate 58 beats per minute transiently treated with dopamine which has been weaned off without recurrence of bradyarrhythmia and or pauses or high-grade Av blocks. Avoid any and all AV kevin blocking agents or medications known to slow heart rate. As above in the HPI we discussed this at length. I will discuss with Dr. Mederos her agreement to proceed with pacemaker implantation if indicated. Per my discussion with Dr. Mederos he feels further monitoring is warranted as it is unclear if her presenting rhythm was related to her altered mental status. He recommends outpatient hall monitor and if any symptomatic bradycardia or higher grade AV block pacemaker implantation warranted. Once I explained the potential benefit of the pacemaker and relative limitations and then it will not improve all her symptoms she verbalized understanding and was somewhat less enthusiastic about proceeding as soon as possible with pacemaker. I explained while this would stabilize and improve circumstances particularly if and or when she is bradycardic this will not improve how she feels unless she requires pacing as an explanation for her symptoms. I explained that presently she would not be paced and she continues to feel the same she does now as she is not having an active issue with regards to bradycardia or high-grade AV block. She and her verbalized understanding and appreciated our discussion and agreed to continue to monitor for now. I explained while certainly she has evidence of conduction system disease and may warrant pacemaker implantation is prudent to observe further to improve the likelihood of benefit and minimize risk particulary as she is being treated for an active infection. (2) Anxiety: Code(s): F41.9 - Anxiety disorder, unspecified Status: Acute Assessment and Plan: management per primary service. caution resuming medications, observe tolerance. (3) UTI (urinary tract infection): Code(s): N39.0 - Urinary tract infection, site not specified Status: Acute Assessment and Plan: Treatment per primary service with antibiotics. Enterococcus (4) NESHA (acute kidney injury): Code(s): N17.9 - Acute kidney failure, unspecified Status: Acute Assessment and Plan: acute on chronic kidney disease, improving today. (5) Encephalopathy: Code(s): G93.40 - Encephalopathy, unspecified Status: Acute Assessment and Plan: Improving, medications been restarted selectively to observe for tolerance as suspicion for altered mental status post pertain to multiple medications with sedating affects. (6) Type 2 diabetes mellitus: Qualifiers: Diabetes mellitus long-term insulin use: with long-term use Diabetes mellitus complication status: without complication Qualified Code(s): E11.9 - Type 2 diabetes mellitus without complications; Z79.4 - half-way (current) use of insulin Code(s): E11.9 - Type 2 diabetes mellitus without complications Status: Acute Assessment and Plan: Stable, management per primary service. Plan this is a 71-year-old lady who is rehospitalized from the rehab service with alterations in her mental status and difficulty arousability the primary staff have arrived to the opinion that this is probably related to her medications more than her bradycardia which is a opinion I agree with. She is not having any roselia syncope other than the episode she tells me about that happen more than 10 years ago. I had a long discussion with the patient and her family in the room about the concept of electronic pacing and the indications for it. At this time she h
--- NOTE | 2021-12-25 13:08 | P.PNNP_ITS ---
Progress Note: A&P Assessment and Plan (1) NESHA (acute kidney injury): Code(s): N17.9 - Acute kidney failure, unspecified Status: Acute Assessment and Plan: * etiology likely due to a combination of volume depletion possibly worsened by diuretic therapy, ARB use, and relative hypotension + bradycardia * improvement noted with bicarbonate fluids * gentle IVF hydration as respiratory status allows * follow repeat labs and UOP (2) Stage 3b chronic kidney disease: Code(s): N18.32 - Chronic kidney disease, stage 3b Status: Chronic Assessment and Plan: * creatinine has been running ~ 1.5 - 1.6mg/dl * presumably due to HTN, DM, vascular disease and age (3) Bradycardia: Code(s): R00.1 - Bradycardia, unspecified Status: Acute Assessment and Plan: * resolving * off dopamine infusion * due to medications versus instrinic cardiac etiology(?) * attempting to streamline medications at this time * Cardiology recommendations noted (4) UTI (urinary tract infection): Code(s): N39.0 - Urinary tract infection, site not specified Status: Acute Assessment and Plan: * history of this on previous admission * empirically on antibiotics (5) Altered mental status: Code(s): R41.82 - Altered mental status, unspecified Status: Acute Assessment and Plan: * appears resolved if not resolving * due to NESHA +/- medications * follow fatimah (6) Type 2 diabetes mellitus: Qualifiers: Diabetes mellitus complication status: without complication Diabetes mellitus long term care administrator insulin use: with long term care administrator use Qualified Code(s): E11.9 - Type 2 diabetes mellitus without complications; Z79.4 - retirement (current) use of insulin Code(s): E11.9 - Type 2 diabetes mellitus without complications Status: Acute Assessment and Plan: * follow accuchecks * glycemic control Will contine to follow. Subjective Date/time seen: 12/25/21 13:08 Bradycardia appears resolved at this time and stable hemodynamics as well; noted to be quite anxious and tearful about numerous issues (possibility of pacemaker placement, fluctuating weight, blood pressure, shortness of breath, famil y/children...etc); renal function better with reasonable urine output; no acute events overnight or earlier this AM. Exam Narrative: General: WD/WN female in NAD Heart: normal S1 and S2; no rub Lungs: clear to auscultation Abdomen: soft, nontender, nondistended, positive bowel sounds Extremities: no cyanosis or clubbing; no edema Skin: warm and dry Objective Data Vital Signs Vital Signs: Vital Signs Temp Pulse Resp BP Pulse Ox O2 Del Method O2 Flow Rate 12/25/21 13:07 Room Air 12/25/21 12:00 36.9 C 61 14 168/83 H 99 12/25/21 12:00 61 12/25/21 12:00 Room Air 12/25/21 10:00 53 L 12/25/21 08:00 37.1 C 62 20 166/56 H 93 12/25/21 08:00 62 12/25/21 08:00 Room Air 12/25/21 05:48 64 12/25/21 04:00 36.9 C 65 16 163/65 H 96 12/25/21 03:52 96 Room Air 12/25/21 03:51 55 L 12/25/21 02:00 60 12/25/21 00:00 96 Room Air 12/25/21 00:00 64 12/25/21 00:00 36.8 C 64 16 137/57 L 96 12/24/21 22:00
--- NOTE | 2021-12-25 13:08 | PM.PNNEP ---
Progress Note: A&P Assessment and Plan (1) NESHA (acute kidney injury): Code(s): N17.9 - Acute kidney failure, unspecified Status: Acute Assessment and Plan: etiology likely due to a combination of volume depletion possibly worsened by diuretic therapy, ARB use, and relative hypotension + bradycardia improvement noted with bicarbonate fluids gentle IVF hydration as respiratory status allows follow repeat labs and UOP (2) Stage 3b chronic kidney disease: Code(s): N18.32 - Chronic kidney disease, stage 3b Status: Chronic Assessment and Plan: creatinine has been running ~ 1.5 - 1.6mg/dl presumably due to HTN, DM, vascular disease and age (3) Bradycardia: Code(s): R00.1 - Bradycardia, unspecified Status: Acute Assessment and Plan: resolving off dopamine infusion due to medications versus instrinic cardiac etiology(?) attempting to streamline medications at this time Cardiology recommendations noted (4) UTI (urinary tract infection): Code(s): N39.0 - Urinary tract infection, site not specified Status: Acute Assessment and Plan: history of this on previous admission empirically on antibiotics (5) Altered mental status: Code(s): R41.82 - Altered mental status, unspecified Status: Acute Assessment and Plan: appears resolved if not resolving due to NESHA +/- medications follow fatimah (6) Type 2 diabetes mellitus: Qualifiers: Diabetes mellitus complication status: without complication Diabetes mellitus terminal makeup operator insulin use: with halfway use Qualified Code(s): E11.9 - Type 2 diabetes mellitus without complications; Z79.4 - shelter (current) use of insulin Code(s): E11.9 - Type 2 diabetes mellitus without complications Status: Acute Assessment and Plan: follow accuchecks glycemic control Will contine to follow. Subjective Date/time seen: 12/25/21 13:08 Bradycardia appears resolved at this time and stable hemodynamics as well; noted to be quite anxious and tearful about numerous issues (possibility of pacemaker placement, fluctuating weight, blood pressure, shortness of breath, family/children...etc); renal function better with reasonable urine output; no acute events overnight or earlier this AM. Exam Narrative: General: WD/WN female in NAD Heart: normal S1 and S2; no rub Lungs: clear to auscultation Abdomen: soft, nontender, nondistended, positive bowel sounds Extremities: no cyanosis or clubbing; no edema Skin: warm and dry Objective Data Vital Signs Vital Signs: Vital Signs Temp Pulse Resp BP Pulse Ox O2 Del Method O2 Flow Rate 12/25/21 13:07 Room Air 12/25/21 12:00 36.9 C 61 14 168/83 H 99 12/25/21 12:00 61 12/25/21 12:00 Room Air 12/25/21 10:00 53 L 12/25/21 08:00 37.1 C 62 20 166/56 H 93 12/25/21 08:00 62 12/25/21 08:00 Room Air 12/25/21 05:48 64 12/25/21 04:00 36.9 C 65 16 163/65 H 96 12/25/21 03:52 96 Room Air 12/25/21 03:51 55 L 12/25/21 02:00 60 12/25/21 00:00 96 Room Air 12/25/21 00:00 64 12/25/21 00:00 36.8 C 64 16 137/57 L 96 12/24/21 22:00 66 12/24/21 20:00 98 Nasal Cannula 2 12/24/21 20:00 36.5 C 56 L 14 123/40 L 96 12/24/21 20:00 56 L 12/24/21 18:00 64 Intake/Output Intake/Output: Intake & Output 12/22/21 12/23/21 12/24/21 12/25/21 23:59 23:59 23:59 23:59 Intake Total 1290 2708 1820 Output Total 950 2250 1350 Balance 340 458 470 Meds/Results Medications: Active Medications Generic Name Dose Route Start Last Admin Trade Name Freq PRN Reason Stop Dose Admin Acetaminophen 650 mg 12/23/21 20:27 12/25/21 04:59 Acetaminophen 325 Mg Tablet PO 650 mg Q6H PRN Administration Pain Albuterol 2 puff 12/23/21 20:27 A
[2021-12-25 17:46] LABS: Glucose Point of Care 99 mg/dl (65-105)
[2021-12-25 17:46] LABS: Glucose Point of Care 99 mg/dl (65-105)
[2021-12-25] MEDS: QUEtiapine FUMARATE 25 MG TABLET PO (20:54)
[2021-12-25] MEDS: rOPINIRole HCL 0.5 MG TABLET PO (20:54)
[2021-12-25 21:13] LABS: Glucose Point of Care 107 mg/dl (65-105)
[2021-12-26] VITALS (16 sets, daily range): BP systolic 129–177; BP diastolic 50–93; PULSE 54–92; RESP 14–22; TEMP 36.6–37; O2SAT 95–99
[2021-12-26] MEDS: ACETAMINOPHEN 325 MG TABLET 650 MG PO (03:36)
[2021-12-26] MEDS: ALPRAZolam (*CRX) 0.5 MG TABLET PO ×3 (04:23→14:02)
[2021-12-26 04:53] LABS: Alanine Aminotransferase 10 U/L (6-35); Albumin Level 3.7 g/dL (3.5-5.1); Alkaline Phosphatase 169 U/L (38-126); Anion Gap 10 mmol/L (8-16); Aspartate Amino Transferase 21 U/L (14-36); Bilirubin,Total 0.3 mg/dL (0.2-1.3); Blood Urea Nitrogen 31 mg/dL (7-17); Calcium 8.6 mg/dL (8.4-10.2); Carbon Dioxide 21 mmol/L (22-30); Chloride 106 mmol/L (98-107); Estimated CRCL calculation 34 ml/min; Estimated Glomerular Filt Rate 28; Glucose 99 mg/dL (65-110); Phosphorus 3.6 mg/dL (2.5-4.5); Potassium 4.9 mmol/L (3.4-5.0); Sodium 137 mmol/L (137-145)
[2021-12-26 05:07] LABS: Basophils Absolute Auto 0.1 K/mm3 (0.0-0.1); Basophils Percent Auto 0.8 % (0.2-1.2); Eosinophils Absolute Auto 0.5 K/mm3 (0-0.3); Eosinophils Percent Auto 6.5 % (0-4.4); Hematocrit 26.1 % (37.0-47.0); Hemoglobin 7.9 g/dL (12.0-15.0); Immature Granulocyte Absolute 0.04 K/mm3 (0.00-0.031); Immature Granulocyte Percent A 0.6 % (0-0.5); Lymphocytes Absolute Auto 0.92 K/mm3 (0.9-3.2); Lymphocytes Percent Auto 12.7 % (18.3-44.2); Mean Corpuscular HGB Conc 30.3 g/dl (32-36); Mean Corpuscular Hemoglobin 30.4 pg (26-34); Mean Corpuscular Volume 100.4 fl (80-100); Monocytes Absolute Auto 0.9 K/mm3 (0.1-0.6); Monocytes Percent Auto 12.1 % (2.6-8.5); Neutrophils Absolute Auto 4.9 K/mm3 (1.3-6.7); Neutrophils Percent Auto 67.3 % (45.5-73.1); Platelet Count Result 217 k/mm3 (150-375); Red Cell Distribution Width 14.6 % (11.5-14.5); White Blood Count 7.3 K/mm3 (4.5-10.0)
[2021-12-26] MEDS: SALINE LOCK FLUSH 10 ML IV PUSH ×3 (06:10→20:25)
[2021-12-26] MEDS: CARBIDOPA/LEVODOPA 25/100 MG TABLET 3 TABLET PO ×3 (06:10→20:25)
--- NOTE | 2021-12-26 06:16 | PC.NURSE ---
This patient, Jenni Rondon, was received from ICU 5 on 12/26/21 at 0616. Patient/family oriented to unit policies and routines
--- NOTE | 2021-12-26 06:27 | PC.NURSE ---
This patient, Jenni Rondon, was transferred to [[id number] ] on 12/26/21 at 0620. Personal belongings sent with patient. Report given to [Erlinda MARIEE ]. Appropriate documentation sent with patient.
[2021-12-26] MEDS: ATORVASTATIN 40 MG TABLET 80 MG PO (08:21)
[2021-12-26] MEDS: PRIMIDONE 50 MG TABLET PO ×2 (08:22→16:48)
[2021-12-26] MEDS: FLUoxetine HCL 10 MG CAPSULE 20 MG PO (08:22)
[2021-12-26] MEDS: ENOXAPARIN 30 MG/0.3 ML SYRINGE SUB-Q (08:23)
[2021-12-26] MEDS: OXcarbazepine 300 MG TABLET PO ×3 (08:23→16:48)
[2021-12-26] MEDS: GABAPENTIN 100 MG CAPSULE PO ×3 (08:23→16:47)
[2021-12-26] MEDS: EMPAGLIFLOZIN 10 MG TABLET PO (08:23)
[2021-12-26 08:36] LABS: Glucose Point of Care 101 mg/dl (65-105)
[2021-12-26] MEDS: TOPIRAMATE 100 MG TABLET PO ×2 (08:40→20:25)
--- NOTE | 2021-12-26 09:29 | PM.PNCARD ---
Progress Note: A&P Assessment and Plan (1) Bradycardia: Code(s): R00.1 - Bradycardia, unspecified Status: Acute Assessment and Plan: Resolved. Maintaining sinus rhythm heart rate 60s 70s. Initial presentation junctional with sinus mechanism in bigeminy heart rate 58 beats per minute transiently treated with dopamine which has been weaned off without recurrence of bradyarrhythmia and or pauses or high-grade Av blocks. Avoid any and all AV kevin blocking agents or medications known to slow heart rate. Extensive discussion by my partners yesterday regarding possible pacemaker. Per discussion yesterday, further monitoring is warranted as it is unclear if her presenting rhythm was related to her altered mental status. Recommend outpatient nanotechnology engineering technician, and if any symptomatic bradycardia or higher grade AV block on monitor, then pacemaker implantation warranted. Will continue to monitor patient on telemetry while she is here. Recommend to discharge patient with a 30-day event monitor. (2) Anxiety: Code(s): F41.9 - Anxiety disorder, unspecified Status: Acute Assessment and Plan: management per primary service. caution resuming medications, observe tolerance. (3) UTI (urinary tract infection): Code(s): N39.0 - Urinary tract infection, site not specified Status: Acute Assessment and Plan: Treatment per primary service with antibiotics. Enterococcus (4) NESHA (acute kidney injury): Code(s): N17.9 - Acute kidney failure, unspecified Status: Acute Assessment and Plan: acute on chronic kidney disease, improving (5) Encephalopathy: Code(s): G93.40 - Encephalopathy, unspecified Status: Acute Assessment and Plan: Improving, medications been restarted selectively to observe for tolerance as suspicion for altered mental status post pertain to multiple medications with sedating affects. (6) Type 2 diabetes mellitus: Qualifiers: Diabetes mellitus buttermilk drier operator insulin use: with buttermilk drier operator use Diabetes mellitus complication status: without complication Qualified Code(s): E11.9 - Type 2 diabetes mellitus without complications; Z79.4 - technician terminal and repeater (current) use of insulin Code(s): E11.9 - Type 2 diabetes mellitus without complications Status: Acute Assessment and Plan: Stable, management per primary service. Subjective Date/time seen: 12/26/21 09:29 Interval history: Reason for visit: Bradycardia Patient states she feels much better this morning. Denies chest pain, shortness of breath, lightheadedness/dizziness. Telemetry shows sinus rhythm. Review of Systems Review of Systems: 8-point ROS obtained. Negative, unless stated in HPI. Exam Const: General: comfortable and no acute distress HENMT: Mouth: Yes moist mucous membranes Eyes: General: appearance normal, both eyes and all related structures Sclera: sclerae normal Pupils: Equal, round and reactive pupils present Neck: Neck: supple Other: cannot determine or assess JVD with her body habitus. Resp: Effort & Inspection: normal respiratory effort Auscultation: clear to auscultation bilaterally Other: Breath sounds are distant but otherwise clear Cardio: Rate: regular rate Rhythm: regular rhythm Heart sounds: no murmurs Skin: General skin exam: normal color Neuro: Speech: normal speech Other: alert and oriented x3, normal cognition Extrem: General: no edema Other: massively obese Psych: Mental Status: mental status grossly normal Objective Data Vital Signs Vital Signs: Vital Signs - 24 hr 12/25/21 10:00 12/25/21 12:00 12/25/21 12:00 Temperature Pulse Rate 53 L 61 Respiratory Rate Blood Pressure Pulse Oximetry Oxygen Delivery Room Air Oxygen Flow Rate 12/25/21 12:00 12/25/21 13:07 12/25/21 13:52 Temperature 36.9 C Pulse Rate 61 Respiratory Rate 14 Blood Pressure 168/83 H Pulse O
--- NOTE | 2021-12-26 11:10 | P.PNNP_ITS ---
Progress Note: A&P Assessment and Plan (1) NESHA (acute kidney injury): Code(s): N17.9 - Acute kidney failure, unspecified Status: Acute Assessment and Plan: * etiology likely due to a combination of volume depletion possibly worsened by diuretic therapy, ARB use, and relative hypotension + bradycardia * improvement noted with bicarbonate fluids * probably okay to stop IVFs later today * follow repeat labs and UOP (2) Stage 3b chronic kidney disease: Code(s): N18.32 - Chronic kidney disease, stage 3b Status: Chronic Assessment and Plan: * creatinine has been running ~ 1.5 - 1.6mg/dl * presumably due to HTN, DM, vascular disease and age (3) Bradycardia: Code(s): R00.1 - Bradycardia, unspecified Status: Acute Assessment and Plan: * resolving * off dopamine infusion * due to medications versus instrinic cardiac etiology(?) * attempting to streamline medications at this time * Cardiology recommendations noted (4) UTI (urinary tract infection): Code(s): N39.0 - Urinary tract infection, site not specified Status: Acute Assessment and Plan: * repeat urine culture negative * initial culture contaminant? * on antibiotics (5) Altered mental status: Code(s): R41.82 - Altered mental status, unspecified Status: Acute Assessment and Plan: * appears resolved if not resolving * due to NESHA +/- medications * follow ramiron (6) Type 2 diabetes mellitus: Qualifiers: Diabetes mellitus complication status: without complication Diabetes mellitus terminal operations supervisor insulin use: with terminal operations supervisor use Qualified Code(s): E11.9 - Type 2 diabetes mellitus without complications; Z79.4 - correction (current) use of insulin Code(s): E11.9 - Type 2 diabetes mellitus without complications Status: Acute Assessment and Plan: * follow accuchecks * glycemic control Will contine to follow. Subjective Date/time seen: 12/26/21 11:10 Transferred out of ICU yesterday; overall, appears to be doing reasonably well; eating and drinking okay; reasonably urine output noted with IVFs; no apparent distress noted. Exam Narrative: General: WD/WN female in NAD Heart: normal S1 and S2; no rub Lungs: clear anteriorly; decreased at bases Abdomen: soft, nontender, nondistended, positive bowel sounds Extremities: no cyanosis or clubbing; no edema Skin: warm and intact Objective Data Vital Signs Vital Signs: Vital Signs Temp Pulse Resp BP Pulse Ox O2 Del Method O2 Flow Rate 12/26/21 10:00 54 L 12/26/21 08:39 96 Room Air 12/26/21 08:29 95 Nasal Cannula 2 12/26/21 08:29 72 12/26/21 07:54 36.9 C 55 L 14 129/91 H 97 12/26/21 06:00 59 L 12/26/21 04:00 57 L 12/26/21 04:00 95 Room Air 12/26/21 04:00 36.8 C 58 L 18 158/93 H 96 12/26/21 02:00 55 L 12/26/21 00:00 37.0 C 58 L 22 H 156/60 H 97 12/26/21 00:00 58 L 12/26/21 00:00 95 Room Air 12/25/21 22:00 57 L 12/25/21 20:00 63 12/25/21 20:00 94 Room Air 12/25/21 20:00 36.6 C 61 17 157/73 H 98 12/25/21 18:00 56 L 12/25/21 16:00 36.6 C 54 L 16 161/83 H 98 12/25
--- NOTE | 2021-12-26 11:10 | PM.PNNEP ---
Progress Note: A&P Assessment and Plan (1) NESHA (acute kidney injury): Code(s): N17.9 - Acute kidney failure, unspecified Status: Acute Assessment and Plan: etiology likely due to a combination of volume depletion possibly worsened by diuretic therapy, ARB use, and relative hypotension + bradycardia improvement noted with bicarbonate fluids probably okay to stop IVFs later today follow repeat labs and UOP (2) Stage 3b chronic kidney disease: Code(s): N18.32 - Chronic kidney disease, stage 3b Status: Chronic Assessment and Plan: creatinine has been running ~ 1.5 - 1.6mg/dl presumably due to HTN, DM, vascular disease and age (3) Bradycardia: Code(s): R00.1 - Bradycardia, unspecified Status: Acute Assessment and Plan: resolving off dopamine infusion due to medications versus instrinic cardiac etiology(?) attempting to streamline medications at this time Cardiology recommendations noted (4) UTI (urinary tract infection): Code(s): N39.0 - Urinary tract infection, site not specified Status: Acute Assessment and Plan: repeat urine culture negative initial culture contaminant? on antibiotics (5) Altered mental status: Code(s): R41.82 - Altered mental status, unspecified Status: Acute Assessment and Plan: appears resolved if not resolving due to NESHA +/- medications follow fatimah (6) Type 2 diabetes mellitus: Qualifiers: Diabetes mellitus complication status: without complication Diabetes mellitus continuous churn buttermaker insulin use: with continuous churn buttermaker use Qualified Code(s): E11.9 - Type 2 diabetes mellitus without complications; Z79.4 - care home (current) use of insulin Code(s): E11.9 - Type 2 diabetes mellitus without complications Status: Acute Assessment and Plan: follow accuchecks glycemic control Will contine to follow. Subjective Date/time seen: 12/26/21 11:10 Transferred out of ICU yesterday; overall, appears to be doing reasonably well; eating and drinking okay; reasonably urine output noted with IVFs; no apparent distress noted. Exam Narrative: General: WD/WN female in NAD Heart: normal S1 and S2; no rub Lungs: clear anteriorly; decreased at bases Abdomen: soft, nontender, nondistended, positive bowel sounds Extremities: no cyanosis or clubbing; no edema Skin: warm and intact Objective Data Vital Signs Vital Signs: Vital Signs Temp Pulse Resp BP Pulse Ox O2 Del Method O2 Flow Rate 12/26/21 10:00 54 L 12/26/21 08:39 96 Room Air 12/26/21 08:29 95 Nasal Cannula 2 12/26/21 08:29 72 12/26/21 07:54 36.9 C 55 L 14 129/91 H 97 12/26/21 06:00 59 L 12/26/21 04:00 57 L 12/26/21 04:00 95 Room Air 12/26/21 04:00 36.8 C 58 L 18 158/93 H 96 12/26/21 02:00 55 L 12/26/21 00:00 37.0 C 58 L 22 H 156/60 H 97 12/26/21 00:00 58 L 12/26/21 00:00 95 Room Air 12/25/21 22:00 57 L 12/25/21 20:00 63 12/25/21 20:00 94 Room Air 12/25/21 20:00 36.6 C 61 17 157/73 H 98 12/25/21 18:00 56 L 12/25/21 16:00 36.6 C 54 L 16 161/83 H 98 12/25/21 16:00 54 L 12/25/21 16:00 Room Air 12/25/21 14:00 70 12/25/21 13:52 Room Air Intake/Output Intake/Output: Intake & Output 12/23/21 12/24/21 12/25/21 12/26/21 23:59 23:59 23:59 23:59 Intake Total 1290 2708 2970 1430 Output Total 950 2250 2750 1000 Balance 340 458 220 430 Meds/Results Medications: Active Medications Generic Name Dose Route Start Last Admin Trade Name Freq PRN Reason Stop Dose Admin Acetaminophen 650 mg 12/23/21 20:27 12/26/21 03:36 Acetaminophen 325 Mg Tablet PO 650 mg Q6H PRN Administration Pain Albuterol 2 puff 12/23/21 20:27 Albuterol Sulfate (*Sp) Aerosol 1 Puff INHALATION QID PRN
[2021-12-26 12:00] LABS: Glucose Point of Care 140 mg/dl (65-105)
[2021-12-26] MEDS: LACTATED RINGERS 1,000 ML 75 ML IV CONT (12:10)
--- NOTE | 2021-12-26 14:54 | PM.IMPN ---
Progress Note: A&P Assessment and Plan (1) Bradycardia: Code(s): R00.1 - Bradycardia, unspecified Status: Acute Assessment and Plan: Patient presented with bradycardia last admission and her Coreg was discontinued. The heart rate here improved and she was discharged. Echocardiogram was done at that time and patient was evaluated by Cardiology Now she returns again with bradycardia. Patient received calcium in ED. EKG showed junctional rhythm on presentation Suspect this is most likely secondary to metabolic derangements or her multiple psychiatric medication medications Patient did receive some sodium bicarbonate for metabolic acidosis and IV fluids with bicarb TSH normal last admission She was started on dopamine infusion which was able to be weaned off as patient is now in sinus rhythm and bradycardia Coreg stopped. Cardiology has evaluated the patient and is considering PM Continue to monitor on telemetry. Plan is for outpatient telemetry monitoring. BP noted. Consider Norvasc if she remains stable. (2) UTI (urinary tract infection): Code(s): N39.0 - Urinary tract infection, site not specified Status: Acute Assessment and Plan: UA noted. UCx 12/19 growing Enterococcus. Patient on Rocephin but this does not cover Enterococcus. Repeat UCx negative. Suspect first sample was contaminant. Stop abx. (3) NESHA (acute kidney injury): Code(s): N17.9 - Acute kidney failure, unspecified Status: Acute Assessment and Plan: Patient has chronic kidney disease and was recently treated for NESHA on last admission (2.7 but down to 1.5 at discharge) Patient is back with elevated creatinine at 2.9. She was on diuretics and appears intravascularly dry on exam Bumex, losartan held. She was gentle hydration. Normal CK. Creatinine is improving is 1.8 today Her other electrolytes and acceptable condition Nephrology consulted and appreciate their input. Stop IV fluids since close to baseline. (4) Chronic kidney disease, stage 3: Qualifiers: Chronic kidney disease stage 3 subtype: stage 3a (GFR 45-59) Qualified Code(s): N18.31 - Chronic kidney disease, stage 3a Code(s): N18.30 - Chronic kidney disease, stage 3 unspecified Status: Acute Assessment and Plan: See above (5) Type 2 diabetes mellitus: Qualifiers: Diabetes mellitus complication status: without complication Diabetes mellitus intermodal customer service insulin use: with jail use Qualified Code(s): E11.9 - Type 2 diabetes mellitus without complications; Z79.4 - exterminator (current) use of insulin Code(s): E11.9 - Type 2 diabetes mellitus without complications Status: Acute Assessment and Plan: A1c 7.0 in July. The patient's blood glucose was reviewed on 12/26 Glucose remains well controlled. Continue AccuCheks covering with sliding scale. Hypoglycemia protocol available as needed. Continue to monitor. Continue Empliflozin (6) Pulmonary edema: Code(s): J81.1 - Chronic pulmonary edema Status: Acute Assessment and Plan: Chest x-ray 12/23 suggested mild pulmonary edema and her BNP was elevated Echo done recently showed diastolic dysfunction Patient on room air with mild pedal edema. Stop IV fluids. Consider prn Bumex if needed She was on Bumex 3mg daily so suspect she will need some diuretics at discharge (7) Encephalopathy: Code(s): G93.40 - Encephalopathy, unspecified Status: Acute Assessment and Plan: Patient with toxic metabolic encephalopathy felt related to her medications and from the NESHA. Now resolved Continue to Hold nonessential medication and react slowly Monitor (8) Parkinson disease: Code(s): G20 - Parkinson's disease Status: Acute Assessment and Plan: Continue Sinemet, primidone and topiramate Ropinirole for restless leg syndrome (9) Anxiety: Code(s): F41.9 - Anxiety disorder, uns
[2021-12-26 16:30] LABS: Glucose Point of Care 123 mg/dl (65-105)
[2021-12-26 19:49] LABS: Glucose Point of Care 110 mg/dl (65-105)
[2021-12-26] MEDS: rOPINIRole HCL 0.5 MG TABLET PO (20:25)
[2021-12-26] MEDS: QUEtiapine FUMARATE 25 MG TABLET PO (20:25)
[2021-12-26 23:16] LABS: Myoglobin, Urine <27 mcg/L (<28)
[2021-12-27] VITALS (9 sets, daily range): BP systolic 151–178; BP diastolic 62–79; PULSE 55–77; RESP 18–24; TEMP 36.3–37; O2SAT 95–99
[2021-12-27] MEDS: CARBIDOPA/LEVODOPA 25/100 MG TABLET 3 TABLET PO ×3 (04:10→21:10)
[2021-12-27] MEDS: SALINE LOCK FLUSH 10 ML IV PUSH ×3 (04:11→21:10)
[2021-12-27 04:21] LABS: Basophils Absolute Auto 0.1 K/mm3 (0.0-0.1); Basophils Percent Auto 0.7 % (0.2-1.2); Eosinophils Absolute Auto 0.3 K/mm3 (0-0.3); Hematocrit 24.5 % (37.0-47.0); Hemoglobin 7.6 g/dL (12.0-15.0); Immature Granulocyte Absolute 0.02 K/mm3 (0.00-0.031); Immature Granulocyte Percent A 0.3 % (0-0.5); Lymphocytes Absolute Auto 0.81 K/mm3 (0.9-3.2); Mean Corpuscular Hemoglobin 31.7 pg (26-34); Mean Corpuscular Volume 102.1 fl (80-100); Mean Platelet Volume 10.6 fl (7.4-10.4); Monocytes Absolute Auto 0.8 K/mm3 (0.1-0.6); Monocytes Percent Auto 11.9 % (2.6-8.5); Neutrophils Absolute Auto 4.7 K/mm3 (1.3-6.7); Neutrophils Percent Auto 70.1 % (45.5-73.1); Platelet Count Result 217 k/mm3 (150-375); Red Cell Distribution Width 14.1 % (11.5-14.5); White Blood Count 6.7 K/mm3 (4.5-10.0)
[2021-12-27 04:40] LABS: Alanine Aminotransferase 8 U/L (6-35); Albumin Level 3.3 g/dL (3.5-5.1); Alkaline Phosphatase 139 U/L (38-126); Anion Gap 5 mmol/L (8-16); Aspartate Amino Transferase 17 U/L (14-36); Bilirubin,Total 0.3 mg/dL (0.2-1.3); Blood Urea Nitrogen 23 mg/dL (7-17); Calcium 8.2 mg/dL (8.4-10.2); Carbon Dioxide 21 mmol/L (22-30); Chloride 109 mmol/L (98-107); Estimated CRCL calculation 41 ml/min; Estimated Glomerular Filt Rate 34; Glucose 93 mg/dL (65-110); Magnesium 1.8 mg/dL (1.6-2.3); Phosphorus 3.5 mg/dL (2.5-4.5); Sodium 135 mmol/L (137-145)
[2021-12-27 08:08] LABS: Glucose Point of Care 113 mg/dl (65-105)
[2021-12-27] MEDS: TOPIRAMATE 100 MG TABLET PO ×2 (08:40→21:10)
[2021-12-27] MEDS: FLUoxetine HCL 10 MG CAPSULE 20 MG PO (08:40)
[2021-12-27] MEDS: EMPAGLIFLOZIN 10 MG TABLET PO (08:40)
[2021-12-27] MEDS: ENOXAPARIN 30 MG/0.3 ML SYRINGE SUB-Q (08:41)
[2021-12-27] MEDS: ATORVASTATIN 40 MG TABLET 80 MG PO (08:41)
[2021-12-27] MEDS: OXcarbazepine 300 MG TABLET PO ×3 (08:41→17:06)
[2021-12-27] MEDS: PRIMIDONE 50 MG TABLET PO ×2 (08:41→17:06)
[2021-12-27] MEDS: GABAPENTIN 100 MG CAPSULE PO ×3 (08:41→17:05)
[2021-12-27] MEDS: ALPRAZolam (*CRX) 0.5 MG TABLET PO ×2 (08:47→14:56)
[2021-12-27] MEDS: ALBUTEROL SULFATE (*SP) AEROSOL 1 PUFF 2 PUFF INHALATION (10:19)
--- NOTE | 2021-12-27 10:50 | PM.IMPN ---
Progress Note: A&P Assessment and Plan (1) Bradycardia: Code(s): R00.1 - Bradycardia, unspecified Status: Acute Assessment and Plan: Patient presented with bradycardia last admission and her Coreg was discontinued. The heart rate here improved and she was discharged. Echocardiogram was done at that time and patient was evaluated by Cardiology plan is to discharge the patient on 30 day monitor spoke to cardiology in detail (2) NESHA (acute kidney injury): Code(s): N17.9 - Acute kidney failure, unspecified Status: Acute Assessment and Plan: CRF And gentle hydration. Avoid nephrotoxic drugs. Monitor antihypertensive drugs Avoid NSAIDs. Routine CMP monitor GFR. Monitor electrolytes potassium levels. cr 1.5 biomass boiler operator recommended (3) Chronic kidney disease, stage 3: Qualifiers: Chronic kidney disease stage 3 subtype: stage 3a (GFR 45-59) Qualified Code(s): N18.31 - Chronic kidney disease, stage 3a Code(s): N18.30 - Chronic kidney disease, stage 3 unspecified Status: Acute Assessment and Plan: See above (4) Type 2 diabetes mellitus: Qualifiers: Diabetes mellitus assistant terminal manager insulin use: with assistant terminal manager use Diabetes mellitus complication status: without complication Qualified Code(s): E11.9 - Type 2 diabetes mellitus without complications; Z79.4 - joint terminal attack controller (current) use of insulin Code(s): E11.9 - Type 2 diabetes mellitus without complications Status: Acute Assessment and Plan: Yearly eye exam and foot exam. HBA1c ( goal <7.0%) , Renal functions, Liver panel every 3 months Monitor vitamin B12 levels Optimize MANISH-inhibitor and statin Routine glucose monitoring. Watch for Hypoglycemia. BMI goal < 25 Yearly eye exam and foot exam Exercise, Diet ( low salt- low carb) Weight loss Routinely check for urine microalbuminuria Routine follow-up with PCP and heel packer (5) Encephalopathy: Code(s): G93.40 - Encephalopathy, unspecified Status: Acute Assessment and Plan: Patient with toxic metabolic encephalopathy felt related to her medications and from the NESHA. Now resolved Continue to Hold nonessential medication and react slowly Monitor (6) Parkinson disease: Code(s): G20 - Parkinson's disease Status: Acute Assessment and Plan: Continue Sinemet, primidone and topiramate Ropinirole for restless leg syndrome (7) Anxiety: Code(s): F41.9 - Anxiety disorder, unspecified Status: Acute Assessment and Plan: Ortizx available prn. Continue Seroquel at night. (8) Obstructive sleep apnea: Code(s): G47.33 - Obstructive sleep apnea (adult) (pediatric) Status: Acute Assessment and Plan: Patient has been intolerant in the past to BiPAP. She is willing to try this today. Will start auto-BiPAP tonight Plan possible discharge tomorrow will check hemoglobin A1c and LDL DVT prophylaxis. GI prophylaxis. All records reviewed Discussed plan of care with the nursing staff and with the patient in detail. Answered all questions and concerns from the patient. All labs have been reviewed. Code status updated dictation may have been done utilizing a voice recognition system. Attempts have been made to correct errors. However, there may be uncorrected grammatical, spelling, and recognition errors present. Subjective Date/time seen: 12/27/21 10:50 Patient seen and evaluated appears very anxious denied chest pain shortness short of breath would like to resume all her psych meds Review of Systems Review of Systems: No fevers chills nausea vomiting. No double vision no blurry vision. No difficulty hearing or sinus complaints. No chest pain shortness of breath fever palpitation dizziness ankle swelling. No coughing wheezing chills. No nausea constipation diarrhea abdominal pain reflux. No urgency frequency of urina
[2021-12-27 12:09] LABS: Cholesterol 101 mg/dL (0-200); HDL Direct 37 mg/dL; Triglycerides 66 mg/dL (<150)
[2021-12-27 12:18] LABS: Hemoglobin A1C 6.9 % (<5.7)
[2021-12-27 12:20] LABS: LDL Cholesterol Direct 41 mg/dL
--- NOTE | 2021-12-27 13:16 | PM.PNNEP ---
Progress Note: A&P Assessment and Plan (1) NESHA (acute kidney injury): Code(s): N17.9 - Acute kidney failure, unspecified Status: Acute Assessment and Plan: resolving etiology likely due to a combination of volume depletion possibly worsened by diuretic therapy, ARB use, and relative hypotension + bradycardia improvement noted s/p bicarbonate fluids off IVFs at this time follow repeat labs and UOP (2) Stage 3b chronic kidney disease: Code(s): N18.32 - Chronic kidney disease, stage 3b Status: Chronic Assessment and Plan: creatinine has been running ~ 1.5 - 1.6mg/dl presumably due to HTN, DM, vascular disease and age (3) Bradycardia: Code(s): R00.1 - Bradycardia, unspecified Status: Acute Assessment and Plan: resolving off dopamine infusion due to medications versus instrinic cardiac etiology(?) attempting to streamline medications at this time Cardiology recommendations noted (4) UTI (urinary tract infection): Code(s): N39.0 - Urinary tract infection, site not specified Status: Acute Assessment and Plan: repeat urine culture negative initial culture contaminant? on antibiotics (5) Altered mental status: Code(s): R41.82 - Altered mental status, unspecified Status: Acute Assessment and Plan: appears resolved due to NESHA +/- medications follow mentation (6) Type 2 diabetes mellitus: Qualifiers: Diabetes mellitus manager terminal insulin use: with manager terminal use Diabetes mellitus complication status: without complication Qualified Code(s): E11.9 - Type 2 diabetes mellitus without complications; Z79.4 - jail (current) use of insulin Code(s): E11.9 - Type 2 diabetes mellitus without complications Status: Acute Assessment and Plan: follow accuchecks glycemic control Will contine to follow. Subjective Date/time seen: 12/27/21 13:16 Appears to be slowly improving in general; she remains quite anxious and keeps asking about resuming her psychiatric medications; renal function continues to slowly improve; no apparent distress noted; no issues/events overnight or earlier this AM. Exam Narrative: General: WD/WN female in NAD Heart: normal S1 and S2; no rub Lungs: clear anteriorly; decreased at bases Abdomen: soft, nontender, nondistended, positive bowel sounds Extremities: no cyanosis or clubbing; no edema Skin: no rash Objective Data Vital Signs Vital Signs: Vital Signs Temp Pulse Resp BP Pulse Ox O2 Del Method O2 Flow Rate 12/27/21 12:00 70 12/27/21 12:00 36.5 C 63 20 152/64 H 96 12/27/21 10:00 56 L 12/27/21 08:00 77 12/27/21 08:00 98 Nasal Cannula 2 12/27/21 08:00 37.0 C 70 18 178/79 H 97 12/27/21 06:00 58 L 12/27/21 04:00 36.7 C 64 20 151/62 H 97 12/27/21 04:00 57 L 12/27/21 04:00 72 20 97 Room Air 12/27/21 02:00 72 12/27/21 00:00 61 20 97 Room Air 12/27/21 00:00 61 12/26/21 23:46 36.7 C 64 20 174/56 H 97 12/26/21 22:00 58 L 12/26/21 20:00 61 12/26/21 20:00 64 20 98 Room Air 12/26/21 19:53 36.6 C 64 20 174/74 H 98 12/26/21 18:00 60 12/26/21 16:00 99 Room Air 12/26/21 16:00 69 12/26/21 16:00 36.8 C 92 18 177/65 H 99 Intake/Output Intake/Output: Intake & Output 12/24/21 12/25/21 12/26/21 12/27/21 23:59 23:59 23:59 23:59 Intake Total 2708 2970 1960 1892 Output Total 2250 2750 1000 2800 Balance 458 220 960 -908 Meds/Results Medications: Active Medications Generic Name Dose Route Start Last Admin Trade Name Freq PRN Reason Stop Dose Admin Acetaminophen 650 mg 12/23/21 20:27 12/26/21 03:36 Acetaminophen 325 Mg Tablet PO 650 mg Q6H PRN Administration Pain Albuterol 2 puff 12/23/21 20:27 12/27/21 10:19 Albuterol Sulfate (*S
--- NOTE | 2021-12-27 13:16 | P.PNNP_ITS ---
Progress Note: A&P Assessment and Plan (1) NESHA (acute kidney injury): Code(s): N17.9 - Acute kidney failure, unspecified Status: Acute Assessment and Plan: * resolving * etiology likely due to a combination of volume depletion possibly worsened by diuretic therapy, ARB use, and relative hypotension + bradycardia * improvement noted s/p bicarbonate fluids * off IVFs at this time * follow repeat labs and UOP (2) Stage 3b chronic kidney disease: Code(s): N18.32 - Chronic kidney disease, stage 3b Status: Chronic Assessment and Plan: * creatinine has been running ~ 1.5 - 1.6mg/dl * presumably due to HTN, DM, vascular disease and age (3) Bradycardia: Code(s): R00.1 - Bradycardia, unspecified Status: Acute Assessment and Plan: * resolving * off dopamine infusion * due to medications versus instrinic cardiac etiology(?) * attempting to streamline medications at this time * Cardiology recommendations noted (4) UTI (urinary tract infection): Code(s): N39.0 - Urinary tract infection, site not specified Status: Acute Assessment and Plan: * repeat urine culture negative * initial culture contaminant? * on antibiotics (5) Altered mental status: Code(s): R41.82 - Altered mental status, unspecified Status: Acute Assessment and Plan: * appears resolved * due to NESHA +/- medications * follow mentation (6) Type 2 diabetes mellitus: Qualifiers: Diabetes mellitus termite control representative insulin use: with [facility] use Diabetes mellitus complication status: without complication Qualified Code(s): E11.9 - Type 2 diabetes mellitus without complications; Z79.4 - [facility] (current) use of insulin Code(s): E11.9 - Type 2 diabetes mellitus without complications Status: Acute Assessment and Plan: * follow accuchecks * glycemic control Will contine to follow. Subjective Date/time seen: 12/27/21 13:16 Appears to be slowly improving in general; she remains quite anxious and keeps asking about resuming her psychiatric medications; renal function continues to slowly improve; no apparent distress noted; no issues/events overnight or earlier this AM. Exam Narrative: General: WD/WN female in NAD Heart: normal S1 and S2; no rub Lungs: clear anteriorly; decreased at bases Abdomen: soft, nontender, nondistended, positive bowel sounds Extremities: no cyanosis or clubbing; no edema Skin: no rash Objective Data Vital Signs Vital Signs: Vital Signs Temp Pulse Resp BP Pulse Ox O2 Del Method O2 Flow Rate 12/27/21 12:00 70 12/27/21 12:00 36.5 C 63 20 152/64 H 96 12/27/21 10:00 56 L 12/27/21 08:00 77 12/27/21 08:00 98 Nasal Cannula 2 12/27/21 08:00 37.0 C 70 18 178/79 H 97 12/27/21 06:00 58 L 12/27/21 04:00 36.7 C 64 20 151/62 H 97 12/27/21 04:00 57 L 12/27/21 04:00 72 20 97 Room Air 12/27/21 02:00 72 12/27/21 00:00 61 20 97 Room Air 12/27/21 00:00 61 12/26/21 23:46 36.7 C 64 20 174/56 H 97 12/26/21 22:00 58 L 12/26/21 20:00 61 12/26/21 20:00 64 20 98 Room Air 12/26/21 19:53 36.6 C 64 20 174/74 H 98
[2021-12-27 14:16] LABS: Glucose Point of Care 121 mg/dl (65-105)
[2021-12-27] MEDS: ACETAMINOPHEN 325 MG TABLET 650 MG PO (14:56)
[2021-12-27 16:45] LABS: Glucose Point of Care 105 mg/dl (65-105)
[2021-12-27 16:48] LABS: Glucose Point of Care 114 mg/dl (65-105)
[2021-12-27 20:25] LABS: Glucose Point of Care 122 mg/dl (65-105)
[2021-12-27] MEDS: rOPINIRole HCL 0.5 MG TABLET PO (21:10)
[2021-12-27] MEDS: QUEtiapine FUMARATE 25 MG TABLET PO (21:10)
[2021-12-28] VITALS (9 sets, daily range): BP systolic 155–198; BP diastolic 52–74; PULSE 56–95; RESP 16–26; TEMP 36.3–36.9; O2SAT 93–100
[2021-12-28] MEDS: hydrALAZINE HCL 20 MG/ML VIAL 10 MG IV PUSH (00:25)
[2021-12-28 05:14] LABS: Basophils Absolute Auto 0.1 K/mm3 (0.0-0.1); Basophils Percent Auto 0.7 % (0.2-1.2); Eosinophils Absolute Auto 0.3 K/mm3 (0-0.3); Eosinophils Percent Auto 3.8 % (0-4.4); Hematocrit 27.6 % (37.0-47.0); Hemoglobin 8.4 g/dL (12.0-15.0); Immature Granulocyte Absolute 0.07 K/mm3 (0.00-0.031); Lymphocytes Absolute Auto 0.94 K/mm3 (0.9-3.2); Lymphocytes Percent Auto 13.7 % (18.3-44.2); Mean Corpuscular HGB Conc 30.4 g/dl (32-36); Mean Corpuscular Hemoglobin 30.9 pg (26-34); Mean Corpuscular Volume 101.5 fl (80-100); Monocytes Absolute Auto 0.8 K/mm3 (0.1-0.6); Monocytes Percent Auto 11.8 % (2.6-8.5); Neutrophils Absolute Auto 4.7 K/mm3 (1.3-6.7); Platelet Count Result 262 k/mm3 (150-375); Red Blood Count 2.72 M/mm3 (4.2-5.4); Red Cell Distribution Width 14.2 % (11.5-14.5); White Blood Count 6.9 K/mm3 (4.5-10.0)
[2021-12-28 05:20] LABS: Alanine Aminotransferase 9 U/L (6-35); Albumin Level 4.1 g/dL (3.5-5.1); Alkaline Phosphatase 154 U/L (38-126); Anion Gap 14 mmol/L (8-16); Aspartate Amino Transferase 17 U/L (14-36); Bilirubin,Total 0.2 mg/dL (0.2-1.3); Blood Urea Nitrogen 19 mg/dL (7-17); Calcium 9.3 mg/dL (8.4-10.2); Carbon Dioxide 21 mmol/L (22-30); Chloride 105 mmol/L (98-107); Estimated CRCL calculation 38 ml/min; Estimated Glomerular Filt Rate 32; Glucose 117 mg/dL (65-110); Magnesium 1.9 mg/dL (1.6-2.3); Phosphorus 3.3 mg/dL (2.5-4.5); Potassium 4.8 mmol/L (3.4-5.0); Sodium 140 mmol/L (137-145)
[2021-12-28] MEDS: CARBIDOPA/LEVODOPA 25/100 MG TABLET 3 TABLET PO ×2 (06:35→06:37)
[2021-12-28] MEDS: SALINE LOCK FLUSH 10 ML IV PUSH (06:41)
--- NOTE | 2021-12-28 09:36 | PM.DS ---
DS: Admitting Diagnosis Discharge Date 12/28/21 Admitting Diagnosis Bradycardia DS: Discharge Diagnosis Discharge Diagnosis (1) Anxiety: Code(s): F41.9 - Anxiety disorder, unspecified Status: Acute (2) Obstructive sleep apnea: Code(s): G47.33 - Obstructive sleep apnea (adult) (pediatric) Status: Acute (3) Stage 3b chronic kidney disease: Code(s): N18.32 - Chronic kidney disease, stage 3b Status: Chronic (4) Chronic anemia: Code(s): D64.9 - Anemia, unspecified Status: Acute (5) Bradycardia: Code(s): R00.1 - Bradycardia, unspecified Status: Acute (6) Type 2 diabetes mellitus: Qualifiers: Diabetes mellitus long-term insulin use: with long-term use Diabetes mellitus complication status: without complication Qualified Code(s): E11.9 - Type 2 diabetes mellitus without complications; Z79.4 - fabric worker leader (current) use of insulin Code(s): E11.9 - Type 2 diabetes mellitus without complications Status: Acute (7) Hypertension: Qualifiers: Hypertension type: primary hypertension Qualified Code(s): I10 - Essential (primary) hypertension Code(s): I10 - Essential (primary) hypertension Status: Acute (8) Parkinson disease: Code(s): G20 - Parkinson's disease Status: Acute Plan patient DS: Summary Hospital Course Hospital Course: patient is a 71-year-old female who was admitted to the hospital because of bradycardia heart rate was noted to be in the low 50s. Initially she was to the dopamine was weaned off patient was noted to have bradyarrhythmia with AV block. Discussions were made with the partner about a possible pacemaker but were not sure if most of her trekking breath the symptoms are secondary to psych meds cardiology has weaned off patient from Coreg will continue to monitor patient also treated for UTI and diabetes patient has history of chronic renal failure which is being monitored by Nephrology as an outpatient current creatinine is 1.6 6 patient would like to go home and follow-up with the primary care physician and her lithopone mill worker as an outpatient. At this point advised reviewed monitor heart rate closely to call the Cardiology if symptom gets worse or dizziness and then we will do consider pacemaker if medically indicated. Status at Discharge Overall status at discharge: patient is back to baseline Time Spent with Patient Time attestation: Total time spent providing and/or coordinating discharge services: Exam Narrative: GENERAL: Well appearing, well-nourished, non-toxic, in no acute distress. HEAD: Normocephalic, atraumatic. NECK: Supple. No adenopathy, no masses. RESPIRATORY: Airway patent, respirations nonlabored. Clear to auscultation bilaterally, no rales, rhonchi, wheezing. CARDIOVASCULAR: Regular rate and rhythm without murmurs, rubs, or gallops. Peripheral pulses 2+ and equal bilaterally. ABDOMINAL: Soft, nontender, nondistended, no hepatosplenomegaly. Normoactive BS. MUSCULOSKELETAL: no Epigastric and no hypochondrial tenderness SKIN: Warm, dry, normal color. No rashes. NEURO: A&O X3. Moves all extremities PSYCHIATRIC: Appropriate mood and affect. Normal interaction. DS: Data Data Completed and Pending Labs on day of discharge: Labs from last 24 hours 12/28/21 12/28/21 12/27/21 04:39 04:39 20:20 WBC 6.9 RBC 2.72 L Hgb 8.4 L Hct 27.6 L MCV 101.5 H MCH 30.9 MCHC 30.4 L RDW 14.2 Plt Count 262 MPV 11.0 H Immature Gran % (Auto) 1.0 H Neut % (Auto) 69.0 Lymph % (Auto) 13.7 L [place] % (Auto) 11.8 H Eos % (Auto) 3.8 Baso % (Auto) 0.7 Lymph # (Auto) 0.94 [place] # (Auto) 0.8 H Eos # (Auto) 0.3 Baso # (Auto) 0.1 Abs Immat Gran (auto) 0.07 H Absolute Neuts (auto) 4.7 Absolute Nucleated RBC 0.0 Nucleated RBC % 0.0 Sodium 140 Potassium 4.8 Chloride 105 Carbon Dioxide 21 L Anion Gap
[2021-12-28] MEDS: FLUoxetine HCL 10 MG CAPSULE 20 MG PO (09:44)
[2021-12-28] MEDS: ATORVASTATIN 40 MG TABLET 80 MG PO (09:45)
[2021-12-28] MEDS: GABAPENTIN 100 MG CAPSULE PO ×3 (09:45→16:48)
[2021-12-28] MEDS: PRIMIDONE 50 MG TABLET PO ×2 (09:45→16:48)
[2021-12-28] MEDS: OXcarbazepine 300 MG TABLET PO ×3 (09:45→16:48)
[2021-12-28] MEDS: EMPAGLIFLOZIN 10 MG TABLET PO (09:45)
[2021-12-28] MEDS: ALPRAZolam (*CRX) 0.5 MG TABLET PO ×3 (09:45→19:27)
[2021-12-28] MEDS: TOPIRAMATE 100 MG TABLET PO (09:46)
[2021-12-28] MEDS: ENOXAPARIN 30 MG/0.3 ML SYRINGE SUB-Q (09:46)
[2021-12-28 10:13] LABS: Glucose Point of Care 125 mg/dl (65-105)
[2021-12-28] MEDS: hydrALAZINE HCL 25 MG TABLET PO ×2 (12:37→16:48)
[2021-12-28 12:43] LABS: Glucose Point of Care 150 mg/dl (65-105)
[2021-12-28 15:07] LABS: Chloride Rand Ur 30 mmol/L (32-290); Chloride/Creatinine Rand Ur 94 (38-318); Creatinine Random Urine 32 mg/dL (20-275)
[2021-12-28 17:19] LABS: Glucose Point of Care 100 mg/dl (65-105)
[2021-12-28] MEDS: ACETAMINOPHEN 325 MG TABLET 650 MG PO (19:27)
== END 2021-12-28 21:10 | DRG 308 ==
LOC: ANHED 11:16 → ANHICU 15:13 → ANHIMU 12-26 06:21
PROVIDERS: Emergency Medicine; Internal Medicine; Internal Medicine Nephrology; Physician Assistant; Admitting Provider Family Medicine; Emergency Provider Emergency Medicine; Visit Provider Internal Medicine
DX: R00.1 Bradycardia, unspecified (principal); G92.8 Other toxic encephalopathy; N17.9 Acute kidney failure, unspecified; I13.0 Hypertensive heart and chronic kidney disease with heart failure and stage 1 through stage 4 chronic kidney disease, or unspecified chronic kidney disease; I50.32 Chronic diastolic (congestive) heart failure; N39.0 Urinary tract infection, site not specified; Z68.43 Body mass index [BMI] 50.0-59.9, adult; N18.32 Chronic kidney disease, stage 3b; E11.40 Type 2 diabetes mellitus with diabetic neuropathy, unspecified; E11.22 Type 2 diabetes mellitus with diabetic chronic kidney disease; E78.5 Hyperlipidemia, unspecified; E03.9 Hypothyroidism, unspecified; J44.9 Chronic obstructive pulmonary disease, unspecified; E66.01 Morbid (severe) obesity due to excess calories; K21.9 Gastro-esophageal reflux disease without esophagitis; G47.33 Obstructive sleep apnea (adult) (pediatric); G20 Parkinson's disease; F41.9 Anxiety disorder, unspecified; F32.A Depression, unspecified; D64.9 Anemia, unspecified; Z20.822 Contact with and (suspected) exposure to COVID-19; Z79.84 Long term (current) use of oral hypoglycemic drugs; Z87.891 Personal history of nicotine dependence
CPT/HCPCS: 36415; 36569; 36600; 51701; 51702; 71046; 80048; 80053; 80061; 81001; 82140; 82436; 82550; 82570; 82805; 82948; 83036; 83605; 83735; 83874; 83880; 84100; 84145; 84300; 84540; 85025; 85610; 85730; 86850; 86900; 86901; 87040; 87086; 87636; 93005; 93970; 93971; 94640; 96361; 96365; 96366; 96372; 96375; 96376; 97110; 97161; 97166; 97530; 97535; 99285; A9270; C1751; G0378; J0360; J0461; J0610; J0696; J1265; J1650; J1815; J7030; J7120

== ENCOUNTER 2022-02-14 16:06 | Inpatient (IN) | payer MEDICARE, BC, SELFPAY ==
[2022-02-14] VITALS (45 sets, daily range): BP systolic 78–148; BP diastolic 48–105; PULSE 50–103; RESP 13–25; TEMP 36.4; O2SAT 87–100
--- NOTE | ~2022-02-14 | CT_ITS ---
EXAMINATION: CT abdomen pelvis wo con DATE: 02/14/2022 17:56 INDICATION: abd pain, diarrhea TECHNIQUE: Computed tomography (CT) of the abdomen and pelvis was performed without intravenous contr ast. Automated exposure control and iterative reconstruction technique were employed. The dose-length product was 1474.64 mGy-cm. COMPARISON: 03/23/2020. FINDINGS: Lower thorax: Coronary artery and aortic valve calcification. Dependent atelectasis. Liver: Normal. Biliary/Gallbladder: Suggestion of mild wall thickening and pericholecystic inflammatory change. The tip of the bladder appears to extend along the anterior surface of the liver. No bile duct dilation. Pancreas: Coarse calcifications as can be seen with chronic hepatitis. Spleen: Normal. Adrenals:No mass. Kidneys: Cortical thinning. Simple left midpole cyst. Bilateral punctate nonobstructing calculi. Bila teral perinephric stranding. GI tract: No small or large bowel dilation. Mild cecal and transverse colonic wall thickening and sarina rounding inflammatory change. Normal appendix. Mesentery/Peritoneum: No ascites, mass, or free air. Inflammatory change along the anterior portion o f the right lateral conal fascia and adjacent to the cecum Retroperitoneum: No mass. Atherosclerotic abdominal aortic and/or arterial calcifications. Pelvis: Mild bladder wall thickening in a partially distended urinary bladder. Uterus is surgically a bsent.. Soft Tissues: Soft tissues and body wall unremarkable. Mild body wall edema. Bones: No acute osseous finding. IMPRESSION: Suggestion of gallbladder wall thickening and inflammatory change, correlate with clinical presentati on and with biliary labs. Cecal and transverse colonic wall thickening with surrounding inflammatory change as can be seen with infectious, inflammatory, or ischemic colitis. Bladder wall thickening, li mario secondary to inadequate distention or cystitis. Reviewed, dictated and finalized at location K. LOTINE TRIMMER IMPRESSION: Suggestion of gallbladder wall thickening and inflammatory change, correlate wi th clinical presentation and with biliary labs. Cecal and transverse colonic wa ll thickening with surrounding inflammatory change as can be seen with infectio us, inflammatory, or ischemic colitis. Bladder wall thickening, likely secondar y to inadequate distention or cystitis.
--- NOTE | ~2022-02-14 | NM_ITS ---
EXAMINATION: NM pulmonary perfusion DATE: 02/14/2022 20:55 INDICATION: Hypoxia. TECHNIQUE: 5.21 mCi Tc-99m MAA was administered intravenously for perfusion images. Scintigraphic john ges of the chest were obtained. COMPARISON: X-ray chest, same date. FINDINGS: Perfusion images show focal hot spots of activity in the left and right lungs. Linear activity is pre sent external to the chest which may represent leak or tracer in a vein, with an additional focus of increased activity probably within the left upper arm that is partially seen in one view. No focal pe rfusion defects. IMPRESSION: 1. Low probability for pulmonary embolism. 2. Clumping of radiotracer which can occur due to injection technique or upper extremity thrombophleb itis. Consider left upper extremity venous ultrasound for further evaluation. Reviewed, dictated and finalized at location K. OWAVE ENGINEER IMPRESSION: 1. Low probability for pulmonary embolism. 2. Clumping of radiotracer which can occur due to injection technique or upper extremity thrombophlebitis. Consider left upper extremity venous ultrasound for further evaluation.
--- NOTE | ~2022-02-14 | XR_ITS ---
EXAMINATION: XR chest 1V portable Exam Date/Time: 02/14/2022 19:30 FRENCH TEACHER HISTORY: SOB Comparison: 12/23/2021. RESULT: Lines, tubes, and devices: None. Lungs and pleura: Stable mild interstitial pattern. Possible calcified right hilar node. Cardiomediastinal silhouette: Stable cardiomegaly. Other: No acute osseous or upper abdominal finding. IMPRESSION: Mild interstitial edema. Reviewed, dictated and finalized at location K. CH TEACHER IMPRESSION: Mild interstitial edema.
--- NOTE | ~2022-02-14 | US_ITS ---
EXAMINATION: US venous doppler UE DATE: 02/14/2022 22:48 INDICATION: Possible thrombophlebitis, clumping of radiotracer in prior ventilation scan. TECHNIQUE: Grayscale ultrasound images without and with compression and Doppler ultrasound images of the left upper extremity veins were obtained. COMPARISON: Ventilation scan performed on the same date. FINDINGS: The visualized portions of the left internal jugular vein, subclavian vein, axillary vein, brachial v eins, basilic vein, cephalic vein, radial vein, and ulnar vein are patent. IMPRESSION: 1. No deep venous thrombosis. 2. Findings in the prior ventilation scan were likely related to injection artefact. Reviewed, dictated and finalized at location K. METRIST PRESIDENT/PRACTICE OWNER IMPRESSION: 1. No deep venous thrombosis. 2. Findings in the prior ventilation scan were likely related to injection norberto fact.
--- NOTE | 2022-02-14 16:23 | ED.CHESTPAIN ---
HPI - Chest Pain General Chief Complaint: Shortness of Breath/Dyspnea Stated Complaint: sob/cp Time Seen by Provider: 02/14/22 16:22 Source: patient, family and EMS Mode of arrival: EMS Limitations: no limitations History of Present Illness HPI narrative: The patient is a 71-year-old female with a history of chronic kidney disease, anemia, COPD on 2 to 3 L oxygen via nasal cannula at baseline, hypertension, hypothyroidism, Parkinson's disease, type 2 diabetes, presenting to the emergency department for evaluation of chest pain, abdominal pain, worsening shortness of breath. Patient states that she developed abdominal pain and watery diarrhea last Saturday, which has been persistent. Patient states that she has had difficulty taking in enough fluids by mouth although she denies any nausea or vomiting. Patient reports aching sensation in the lower abdomen which has been mostly constant. She denies any blood or mucus present in the stool. Patient reports that 2 days ago she began to experience central chest pain and she has had a chronic cough that does not seem to be worsened from normal. Chest pain has been mostly constant in nature. No associated diaphoresis, lightheadedness with this. Denies hemoptysis. No pleuritic pain. Patient has had an increasing oxygen requirement from 2 to 5 L. Patient is a former smoker, denies current tobacco use. Denies fever, chills, does report shakiness. She denies rigors. Patient denies radiation of the chest pain into the jaw or neck. No ripping or tearing sensation to the back or flanks. No syncopal event, lightheadedness or dizziness. Related Data Home Medications Medication Instructions Recorded Confirmed atorvastatin 80 mg tablet 80 mg PO QAM 12/10/19 12/29/21 carbidopa 25 mg-levodopa 100 mg 3 tablet PO Q8H 12/10/19 12/29/21 tablet fluoxetine 40 mg capsule 40 mg PO BID 12/10/19 12/29/21 oxcarbazepine 300 mg tablet 300 mg PO TID 12/10/19 12/29/21 alprazolam 1 mg tablet 1 mg PO QID 10/10/20 12/29/21 allopurinol 100 mg tablet 100 mg PO DAILY 12/12/21 12/29/21 doxepin 25 mg capsule 25 mg PO BID 12/12/21 12/29/21 empagliflozin 10 mg tablet 10 mg PO DAILY 12/12/21 12/29/21 (Jardiance) ipratropium 0.5 mg-albuterol 3 mg 3 ml inhalation Q6H 12/12/21 12/29/21 (2.5 mg base)/3 mL nebulization soln prazosin 5 mg capsule 5 mg PO HS 12/12/21 12/29/21 ropinirole 0.5 mg tablet 0.5 mg PO HS 12/12/21 12/29/21 primidone 50 mg tablet 50 mg PO BID 12/21/21 12/29/21 acetaminophen 650 mg tablet 650 mg PO Q6H PRN Pain 12/23/21 12/29/21 albuterol sulfate 90 mcg/actuation 2 puff inhalation QID PRN 12/23/21 12/29/21 aerosol inhaler Shortness Of Breath Or Wheezing quetiapine 25 mg tablet 25 mg PO HS 12/23/21 12/23/21 sodium bicarbonate 650 mg tablet 650 mg PO BID 12/23/21 12/23/21 topiramate 100 mg tablet 100 mg PO BID 12/23/21 12/23/21 gabapentin 100 mg PO TID 12/29/21 12/29/21 Allergies Allergy/AdvReac Type Severity Reaction Status Date / Time iodine Allergy Severe Hives Verified 12/23/21 07:07 latex Allergy Severe Hives Verified 12/23/21 07:07 Contrast Media Allergy Mild Hives Uncoded 12/23/21 07:07 Review of Systems Review of Systems: CONSTITUTIONAL: Denies fever, chills, or sweats. EYES: Denies visual changes, redness, or discharge. ENT: Denies rhinorrhea, congestion, sore throat, or otalgia. CARDIOVASCULAR: Reports chest pain that began 2 days ago, denies palpitations or edema RESPIRATORY: Reports chronic cough and worsening shortness of breath GASTROINTESTINAL: Reports abdominal pain and diarrhea GENITOURINARY: Denies dysuria or hematuria. SKIN: Denies rash or itching. MUSCULOSKELETAL: Denies back pain, joint pain, or myalgia. NEUROLOGIC: Denies headache, numbness, or weakness. [facility] Past Medical History Medical History Anxiety BMI greater than 40 Chronic anemia Chronic kidney disease, stage 3 Baseline creatinine ranges between 1.2 and
--- NOTE | 2022-02-14 16:44 | ECG_ITS ---
Measurements Intervals [place] Rate: 59 P: SD: 0 QRS: 17 QRSD: 92 T: 38 QT: 424 QTc: 421 Interpretive Statements JUNCTIONAL RHYTHM SUPRAVENTRICULAR BIGEMINY DELAYED PRECORDIAL R/S TRANSITION LOW QRS VOLTAGE IN PRECORDIAL LEADS BASELINE ARTIFACT- I, III, AVR, AVL, AVF, V4-V5 ABNORMAL ECG COMPARED TO ECG 12/23/2021 06:49:01 NO SIGNIFICANT CHANGES Electronically Signed On 02-15-2022 7:56:27 CORPORATE LOGISTICS MANAGER by Calin Fernandez D.O.
[2022-02-14] MEDS: ALBUTEROL SULFATE NEB 2.5 MG/3 ML INH 5 MG INHALATION ×3 (17:01→19:58)
[2022-02-14] MEDS: IPRATROPIUM BR 0.02% INH SOLN 0.5 MG/2.5 ML VIAL INHALATION (17:01)
[2022-02-14] MEDS: MORPHINE SULFATE (*CRX) 4 MG/ML INJ IV PUSH (17:24)
[2022-02-14] MEDS: ONDANSETRON INJ 4 MG/2 ML VIAL IV PUSH (17:24)
[2022-02-14] MEDS: methylPREDNISolone SOD SUCC 125 MG VIAL IV PUSH (17:25)
[2022-02-14] MEDS: SODIUM CHLORIDE 0.9% IV 1,000 ML 999 ML IV CONT ×2 (17:25→18:33)
[2022-02-14 17:39] LABS: Lactic Acid Reflex 0.7 mmol/L (0.7-2.0)
[2022-02-14 17:41] LABS: INR 1.4; Partial Thromboplastin Time 32.1 SECONDS (22.3-36.8); Prothrombin Time 16.8 Seconds (11.1-14.7)
[2022-02-14 17:44] LABS: Alanine Aminotransferase 10 U/L (6-35); Alkaline Phosphatase 199 U/L (38-126); Anion Gap 9 mmol/L (8-16); Aspartate Amino Transferase 18 U/L (14-36); Bilirubin,Total 0.3 mg/dL (0.2-1.3); Blood Urea Nitrogen 63 mg/dL (7-17); Calcium 8.1 mg/dL (8.4-10.2); Carbon Dioxide 18 mmol/L (22-30); Chloride 108 mmol/L (98-107); Estimated CRCL calculation 25 ml/min; Estimated Glomerular Filt Rate 20; Glucose 125 mg/dL (65-110); Potassium 6.5 mmol/L (3.4-5.0); Sodium 135 mmol/L (137-145)
[2022-02-14 17:46] LABS: Hematocrit 25.1 % (37.0-47.0); Hemoglobin 7.4 g/dL (12.0-15.0); Mean Corpuscular HGB Conc 29.5 g/dl (32-36); Mean Corpuscular Hemoglobin 29.2 pg (26-34); Mean Corpuscular Volume 99.2 fl (80-100); Platelet Count Result 250 k/mm3 (150-375); Red Blood Count 2.53 M/mm3 (4.2-5.4); Red Cell Distribution Width 14.6 % (11.5-14.5); White Blood Count 9.1 K/mm3 (4.5-10.0)
[2022-02-14 17:52] LABS: Troponin I < 0.012 ng/mL (0.000-0.034)
[2022-02-14 17:55] LABS: Influenza A QL RT-PCR Negative (Negative); Influenza B QL RT-PCR Negative (Negative); RSV RNA, RT-PCR Negative (Negative); SARS-CoV-2 RNA PCR Negative
[2022-02-14 18:16] LABS: Eosinophils Absolute Manual 0.36 K/mm3 (0.02-0.5); Eosinophils Percent Manual 4 % (0-4); Hypochromasia 1+ (NORMAL); Lymphocytes Absolute Manual 1.18 K/mm3 (1.1-4.5); Lymphocytes Percent Manual 13 % (18-44); Monocytes Absolute Manual 0.54 K/mm3 (0.1-0.90); Monocytes Percent Manual 6 % (3-9); Neutrophils Absolute Manual 8.19 K/mm3 (1.7-7.2); Neutrophils Percent Manual 77 % (46-73); Platelet Estimate Adequate (Adequate); Total Cells Counted 100
[2022-02-14 18:17] LABS: Ovalocytes 1+ (NORMAL); Schistocytes None Seen (NORMAL)
[2022-02-14] MEDS: INSULIN HUMAN REGULAR (*BKC) 100 UNITS/ML 10 UNITS IV PUSH (18:32)
[2022-02-14] MEDS: CALCIUM GLUCONATE 1,000 MG/10 ML VIAL 1000 MG IV PUSH (18:32)
[2022-02-14] MEDS: DEXTROSE 50% 25 GM/50 ML SYRINGE IV PUSH (18:32)
[2022-02-14 18:57] LABS: Add Urine Microscopic? YES; Appearance Urine Clear (Clear); Bilirubin Urine Negative (Negative); Blood Urine Negative (Negative); Color Urine Yellow (Yellow); Glucose Urine UA Trace mg/dL (Negative); Ketones Urine Negative (Negative); Leukocyte Esterase Ur 2+ LEU/UL (Negative); Nitrate Urine Negative (Negative); Protein Urine Negative (Negative); Urobilinogen Urine 0.2 mg/dL (<2.0); pH Urine 5.5 (5.0-9.0)
[2022-02-14 19:15] LABS: Bacteria Urine 1+ /hpf; Mucus Urine Rare /lpf; RBC Urine 0-2 /hpf (0-2); Squamous Epithelial Cell Urine Occasional /hpf (Few); WBC Clumps Urine Present /HPF; WBC Urine >75 /hpf
[2022-02-14 20:06] LABS: Fractional Inspired Oxygen 32 %; HCO3 VBG 16.4 mEq/l (24.0-30.0); PO2 VBG 33.8 mmHg (35.0-45.0)
[2022-02-14 20:17] LABS: Anion Gap 9 mmol/L (8-16); Blood Urea Nitrogen 62 mg/dL (7-17); Carbon Dioxide 17 mmol/L (22-30); Chloride 108 mmol/L (98-107); Estimated CRCL calculation 27 ml/min; Estimated Glomerular Filt Rate 22; Glucose 97 mg/dL (65-110); Potassium 5.4 mmol/L (3.4-5.0); Sodium 134 mmol/L (137-145)
[2022-02-14 20:31] LABS: Device NASAL CANNULA; pH VBG 7.143 (7.300-7.400)
--- NOTE | 2022-02-14 20:34 | PM.IMHP ---
H&P: HPI History of Present Illness Date/Time: 02/14/22 20:34 Chief Complaint: Tremors Narrative: This is a 71-year-old female past medical history significant for generalized anxiety disorder, chronic kidney disease, chronic obstructive pulmonary disease, gastroesophageal reflux disease, heart failure with preserved ejection fraction, hypertension, Parkinson's disease, restless leg syndrome, type diabetes mellitus. Patient presents to the emergency room due to worsening tremors for the last 3 days or so, diarrhea profuse, several bowel movements daily, patient also having significant shortness of breath she is usually on supplemental oxygen by nasal cannula 2-3 L. patient also complaining of lower abdomen pain and discomfort with urination, denies cough, sputum production. Preliminary workup was significant for urinalysis with numerous WBCs present. A V/Q scan was reported as: FINDINGS: Perfusion images show focal hot spots of activity in the left and right lungs. Linear activity is present external to the chest which may represent leak or tracer in a vein, with an additional focus of increased activity probably within the left upper arm that is partially seen in one view. No focal perfusion defects. IMPRESSION: 1.? Low probability for pulmonary embolism. 2. Clumping of radiotracer which can occur due to injection technique or upper extremity thrombophlebitis. Consider left upper extremity venous ultrasound for further evaluation. A CT of abdomen and pelvis was reported as: FINDINGS: Lower thorax: Coronary artery and aortic valve calcification. Dependent atelectasis. Liver: Normal.? Biliary/Gallbladder: Suggestion of mild wall thickening and pericholecystic inflammatory change. The tip of the bladder appears to extend along the anterior surface of the liver. No bile duct dilation. Pancreas: Coarse calcifications as can be seen with chronic hepatitis. Spleen: Normal. Adrenals:No mass. Kidneys: Cortical thinning. Simple left midpole cyst. Bilateral punctate nonobstructing calculi. Bilateral perinephric stranding. GI tract: No small or large bowel dilation. Mild cecal and transverse colonic wall thickening and surrounding inflammatory change. Normal appendix. Mesentery/Peritoneum: No ascites, mass, or free air. Inflammatory change along the anterior portion of the right lateral conal fascia and adjacent to the cecum Retroperitoneum: No mass. Atherosclerotic abdominal aortic and/or arterial calcifications. Pelvis: Mild bladder wall thickening in a partially distended urinary bladder. Uterus is surgically absent.. Soft Tissues: Soft tissues and body wall unremarkable. Mild body wall edema. Bones:? No acute osseous finding. IMPRESSION: Suggestion of gallbladder wall thickening and inflammatory change, correlate with clinical presentation and with biliary labs. Cecal and transverse colonic wall thickening with surrounding inflammatory change as can be seen with infectious, inflammatory, or ischemic colitis. Bladder wall thickening, likely secondary to inadequate distention or cystitis. Review of Systems Review of Systems: Worsening tremors, shortness of breath, diarrhea, abdominal pain. Constitutional: Constitutional: Denies chills, Reports fatigue, Denies fever(s), Reports malaise, Reports poor appetite and Reports weakness Eyes: Eyes: Denies change in vision ENT: Denies dysphagia, Denies vertigo, Denies dizziness and Denies odynophagia Cardiovascular: Cardiovascular: Denies chest pain, Denies leg edema, Denies lightheadedness, Denies radiating jaw, neck or arm pain and Denies palpitations Respiratory: Respiratory: Denies cough, Reports dyspnea and Reports dyspnea on exertion Gastrointestinal: Gastrointestinal: Reports abdominal pain, Denies dyspepsia, Denies heartburn, Reports diarrhea, Reports nausea and Reports vomiting Genitourinary: Genitourinary: Reports dysuria Musculoskeletal: Musculoskeletal: Reports muscle weakness Integumentar
[2022-02-14] MEDS: cefTRIAXone 2 GM in SODIUM CHLORIDE 0.9% IV 100 ML 200 ML IVPB (21:19)
[2022-02-14] MEDS: SODIUM BICARBONATE 8.4% 50 MEQ/50 ML SYRINGE IV PUSH (21:32)
--- NOTE | 2022-02-14 21:36 | ECG_ITS ---
Measurements Intervals [place] Rate: 61 P: LA: 0 QRS: 13 QRSD: 89 T: 20 QT: 418 QTc: 423 Interpretive Statements JUNCTIONAL RHTYHM LOW QRS VOLTAGE IN PRECORDIAL LEADS BASELINE ARTIFACT- I, III, AVL, AVF, V4-V6 ABNORMAL ECG COMPARED TO ECG 02/14/2022 16:14:47 SUPRAVENTRICULAR BIGEMINY RESOLVED Electronically Signed On 02-15-2022 7:59:28 ALIGNMENT SPECIALIST by Calin Fernandez D.O.
--- NOTE | 2022-02-14 21:45 | PC.NURSE ---
ERP notified about Pt. ecg showing possible V tach. Upon entering Pt. room. Pt. was tremoring. Possible artifact from the tremors.. Once patient stopped tremoring, the rhythm returned to baseline.
[2022-02-14] MEDS: LORazepam INJ (*CRX) 2 MG/ML VIAL 0.5 MG IV PUSH (22:12)
[2022-02-14 22:35] LABS: Troponin I < 0.012 ng/mL (0.000-0.034)
[2022-02-15] VITALS (19 sets, daily range): BP systolic 143–193; BP diastolic 41–63; PULSE 51–74; RESP 16–20; TEMP 36.1–36.7; O2SAT 90–99; BMI 49.8
[2022-02-15 01:05] LABS: Reflex Lactic Acid Yes or No Add Lactic
[2022-02-15] MEDS: IPRATROPIUM BR 0.02% INH SOLN 0.5 MG/2.5 ML VIAL INHALATION ×4 (02:01→21:15)
[2022-02-15] MEDS: ALBUTEROL SULFATE NEB 2.5 MG/3 ML INH 5 MG INHALATION ×4 (02:01→21:15)
[2022-02-15] MEDS: ACETAMINOPHEN 325 MG TABLET 650 MG PO ×2 (05:28→20:24)
--- NOTE | 2022-02-15 05:38 | PC.NURSE ---
Pt admitted to room 258 via cart from ER at 0025. Pt with c/o abdominal pain. Tender to touch, round and large. States had uncontrollable diarrhea from Saturday to Saturday February 12, 2022. Since Saturday has abdominal pain. No further BM's Recent d/c from [facility]. Pt A/O x4 extremely anxious, asked if she is going to several times. Extensive medical history. Pt unaware of medications, states her spouse gives her medications and will come with correct updated list this am. Pt shaky from Parkinson's, entire body shaking- , tele applied and misreads frequently due to artifact. Found pt with tele box in hands as she was moving uncontrollably. Tele rhythm varies. 12 lead EKG's in chart vary. Pt with no chest pain. Has noticeable shortness of breathe with movement. Ex smoker. Home o2 2L NC pt states she refuses to use nebulizer machine and cpap at home . Pain daily- especially lower back with ambulation, standing and feet discomfort with numbness/tingling due to diabetes. Use of walker at home with frequent falls . Groin/buttock clean with no skin breakdown. Yeast noted in abdominal folds. Pt states she has a visiting nurse. Pt expressed concerns over her grown children that she supports. One son lives with pt that is developmentally delayed and needs care that the patient cannot provide. Patient states that her spouse buys take out food 6 days aweek for family and then cooks one day a week.
[2022-02-15 08:05] LABS: Basophils Percent Auto 0.1 % (0.2-1.2); Hemoglobin 7.1 g/dL (12.0-15.0); Immature Granulocyte Absolute 0.17 K/mm3 (0.00-0.031); Immature Granulocyte Percent A 1.5 % (0-0.5); Lymphocytes Absolute Auto 0.41 K/mm3 (0.9-3.2); Lymphocytes Percent Auto 3.6 % (18.3-44.2); Mean Corpuscular HGB Conc 29.6 g/dl (32-36); Mean Corpuscular Volume 101.3 fl (80-100); Monocytes Absolute Auto 0.7 K/mm3 (0.1-0.6); Monocytes Percent Auto 6.1 % (2.6-8.5); Neutrophils Absolute Auto 10.1 K/mm3 (1.3-6.7); Neutrophils Percent Auto 88.7 % (45.5-73.1); Nucleated Red Blood Cells Perc 0.2 % (0.0-0.2); Platelet Count Result 254 k/mm3 (150-375); Red Blood Count 2.37 M/mm3 (4.2-5.4); Red Cell Distribution Width 14.7 % (11.5-14.5); White Blood Count 11.3 K/mm3 (4.5-10.0)
[2022-02-15 08:15] LABS: Glucose Point of Care 139 mg/dl (65-105)
[2022-02-15 08:19] LABS: Albumin Level 3.8 g/dL (3.5-5.1); Anion Gap 10 mmol/L (8-16); Blood Urea Nitrogen 69 mg/dL (7-17); Calcium 7.9 mg/dL (8.4-10.2); Carbon Dioxide 17 mmol/L (22-30); Chloride 107 mmol/L (98-107); Estimated CRCL calculation 25 ml/min; Estimated Glomerular Filt Rate 20; Glucose 138 mg/dL (65-110); Phosphorus 6.3 mg/dL (2.5-4.5); Potassium 6.9 mmol/L (3.4-5.0); Sodium 134 mmol/L (137-145)
[2022-02-15 08:40] LABS: Anisocytosis 1+ (NORMAL); Hypochromasia 1+ (NORMAL); Platelet Estimate Adequate (Adequate); Schistocytes None Seen (NORMAL)
[2022-02-15] MEDS: metroNIDAZOLE 250 MG TABLET 500 MG PO ×3 (10:44→22:35)
[2022-02-15] MEDS: SODIUM CHLORIDE 0.9% IV 1,000 ML 100 ML IV CONT (10:44)
[2022-02-15] MEDS: CALCIUM GLUC 1,000 MG/NS 50 ML 1,000 MG/50 ML BAG 100 MG IVPB (10:44)
[2022-02-15] MEDS: SODIUM ZIRCONIUM CYCLOSILICATE 10 GM POWD.PACK PO ×2 (10:45→15:00)
--- NOTE | 2022-02-15 11:30 | PM.IMPN ---
Progress Note: A&P Assessment and Plan (1) Acute hyperkalemia: Code(s): E87.5 - Hyperkalemia Status: Acute Assessment and Plan: Initial potassium was 6.5. after treatment, potassium dropped to 5.4. [place] hyperkalemia related to acute kidney injury. Potassium this morning was 6.9. Telemetry showing junctional rhythm but this was noted by EKG back in December so this may be more chronic. Patient again was started on appropriate treatment. Kayexalate x1. Will start Lokelma. continue close monitoring. Continue telemetry. (2) UTI (urinary tract infection): Code(s): N39.0 - Urinary tract infection, site not specified Status: Acute Assessment and Plan: UA noted and consistent with UTI. Urine and blood cultures are pending. Continue Rocephin. (3) Colitis: Code(s): K52.9 - Noninfective gastroenteritis and colitis, unspecified Status: Acute Assessment and Plan: Patient with history of colitis. CT scan showing gallbladder wall thickening with inflammatory changes. LFTs are normal except for mildly elevated alk phos of 199. No right upper quadrant pain to suggest acute cholecystitis. CT scan also shows cecal and transverse colonic wall thickening concerning for colitis. Will repeat LFTs and lipase. Currently on Flagyl and Vanco po. Will stop Vanco and continue Flagyl (4) NESHA (acute kidney injury): Code(s): N17.9 - Acute kidney failure, unspecified Status: Acute Assessment and Plan: Patient with acute on chronic renal failure. Baseline creatinine 1.5-1.8. Creatinine 2.4 admission. Suspect dehydration related to diarrhea. Also on Bumex at home which has been held. Continue gentle rehydration. (5) Acute dehydration: Code(s): E86.0 - Dehydration Status: Acute Assessment and Plan: As above. (6) Chronic respiratory failure: Code(s): J96.10 - Chronic respiratory failure, unspecified whether with hypoxia or hypercapnia Status: Acute Assessment and Plan: patient had increase O2 requirement on admission at 4 L. lower extremity venous Doppler was negative for DVT. V/Q scan was low probability for PE. She has been easily weaned down to 1 L at this time. She does have chronic respiratory failure on 2-3 L of oxygen at home. She has sleep apnea but does not tolerate BiPAP at night. Continue supplemental oxygen keep SpO2 greater than 90%. (7) Stage 3b chronic kidney disease: Code(s): N18.32 - Chronic kidney disease, stage 3b Status: Chronic Assessment and Plan: As above (8) Heart failure with preserved ejection fraction: Code(s): I50.30 - Unspecified diastolic (congestive) heart failure Status: Chronic Assessment and Plan: Patient does not appear fluid overload Continue to monitor daily intake and output (9) Generalized weakness: Code(s): R53.1 - Weakness Status: Acute Assessment and Plan: start PT and OT. Subjective Date/time seen: 02/15/22 11:30 Interval history: 71yo female with CKD, chronic resp failure, Parkinsons, COPD and dCHF here for diarrhea and SOB. Patient feels better today. Denies chest pain. No further diarrhea. Her abdominal pain has improved. She denies that she had dysuria. Exam Narrative: AF 98.0 243/41 61 20 90% 1L Gen - NARD Chest - Few basilar crackles. Normal respiratory rate CV - RRR with occasional extra beat. Telemetry showing junctional rhythm. Abd - Soft. Obese. Nontender. Ext - Trace pedal edema. Positive Homans sign on the left. Neuro - Alert and Appropriate. Upper extremity tremors noted. Psych - Anxious mood. Skin - Warm and dry. minor tinea noted in the groin Objective Data Vital Signs Vital Signs: Vital Signs - 24 hr 02/14/22 16:27 02/14/22 17:02 02/14/22 19:10 Temperature 97.5 F L Pulse Rate 65 50 L 88 Respiratory Rate 20 16 14 [place]
[2022-02-15] MEDS: SODIUM POLYSTYRENE SULFONONATE 15 GM/60 ML BTL 30 GM PO (12:05)
[2022-02-15] MEDS: SODIUM BICARBONATE 8.4% 50 MEQ/50 ML SYRINGE IV PUSH (12:06)
[2022-02-15 12:19] LABS: Glucose Point of Care 118 mg/dl (65-105)
[2022-02-15] MEDS: CARBIDOPA/LEVODOPA 25/100 MG TABLET 3 TABLET PO ×2 (13:16→18:04)
[2022-02-15] MEDS: APIXABAN 5 MG TABLET PO ×2 (13:17→20:24)
[2022-02-15] MEDS: GABAPENTIN 100 MG CAPSULE PO ×2 (13:17→22:35)
[2022-02-15] MEDS: ALPRAZolam (*CRX) 0.5 MG TABLET 1 MG PO ×3 (13:19→20:24)
--- NOTE | 2022-02-15 15:44 | PM.CNCAR ---
Assessment and Plan Assessment and plan (1) Junctional rhythm: Code(s): I49.8 - Other specified cardiac arrhythmias Status: Acute Assessment and Plan: the patient has a history of mild bradycardia and intermittent junctional rhythm. This appears benign. Reassured patient. (2) Supraventricular bigeminy: Code(s): R00.8 - Other abnormalities of heart beat Status: Acute Assessment and Plan: Patient had a supraventricular bigeminy on admission yesterday which has resolved. Benign arrhythmia. (3) Acute on chronic kidney failure: Code(s): N17.9 - Acute kidney failure, unspecified; N18.9 - Chronic kidney disease, unspecified Status: Acute Assessment and Plan: Dehydration secondary to diarrhea with acute on chronic kidney disease, and severe hyperkalemia. Being addressed by the hospitalist and Dr. Oviedo. X-ray shows some mild interstitial edema and she does have volume overload, and history of diastolic CHF, so judicious use of IV fluids is recommended. May need some diuresis prior to discharge. (4) Anxiety: Code(s): F41.9 - Anxiety disorder, unspecified Status: Acute Assessment and Plan: The patient appears to have an anxiety disorder. Reassured. Plan No new recommendations from Cardiology. Will sign off. Please call if we can be of further assistance. History of Present Illness History of Present Illness Consult date/time: 02/15/22 15:44 Reason For Visit: Hyperkalemia,Colitis Narrative: Jenni Rondon is a 71-year-old female whom I was asked to see at the request of Dr. Gonzales for my advice and opinion regarding her abnormal heart rhythm, in consultation. The patient has a history of chronic kidney disease, COPD, GERD, heart failure with preserved ejection fraction, hypertension, Parkinson's, diabetes and anxiety. We have seen the past patient in the past for intermittent asymptomatic junctional rhythm. Her bradycardia has never been significant and we have not that she has been symptomatic. We have not recommended pacemaker implant. The patient was admitted to the emergency room due to tremors, diarrhea and shortness of breath. she was found to have acute kidney injury and severe hyperkalemia which has been addressed. She also had abnormal EKG rhythm; Dr. Guerrero showed me her EKG last night which showed a bigeminal pattern. The patient states that she thought she was going to last night particularly since there was some concern about her heart rhythm.No chest pain. Troponins were negative x2. 02/14/2022 EKG at 1644: Junctional rhythm rate 59 with bigeminy; cannot rule out a sinoatrial exit block although P-waves are very difficult to discern. 02/14/2022 EKG at 9:53 p.m.: Junctional rhythm rate 61 EKGs personally reviewed Today the pt is back in NSR HR 70's. Review of Systems Constitutional: Constitutional: Reports fatigue, Denies fever(s), Reports lethargy and Reports weakness Eyes: Eyes: Reports no additional eye complaints ENT: Denies epistaxis Cardiovascular: Cardiovascular: Denies chest pain, Reports pedal edema, Reports lightheadedness and Reports dyspnea Comments: chronic lightheadedness when she gets up too fast, worse recently Respiratory: Respiratory: Denies chest congestion, Reports dyspnea and Reports dyspnea on exertion Gastrointestinal: Gastrointestinal: Denies abdominal pain, Denies hematochezia and Reports diarrhea Comments: small amount of blood on toilet tissue when she wipes recently, history of hemorrhoids Genitourinary: Genitourinary: Denies hematuria Musculoskeletal: Musculoskeletal: Reports no additional musculoskeletal complaints Comments: uses a walker Integumentary/Breasts: Skin/Breast: Reports system reviewed and no additional complaints, except as docu Neurologic: Reports system reviewed and no additional complaints, except as documented, Denies behavioral changes and Den
[2022-02-15 17:42] LABS: Glucose Point of Care 99 mg/dl (65-105)
[2022-02-15] MEDS: TOPIRAMATE 100 MG TABLET PO (18:02)
[2022-02-15] MEDS: OXcarbazepine 300 MG TABLET PO (18:02)
[2022-02-15] MEDS: PRIMIDONE 50 MG TABLET PO (18:03)
[2022-02-15] MEDS: DOXEPIN HCL 25 MG CAPSULE PO (18:03)
[2022-02-15] MEDS: SODIUM BICARBONATE TAB 650 MG TABLET PO (18:08)
[2022-02-15] MEDS: rOPINIRole HCL 0.5 MG TABLET PO (20:24)
[2022-02-15] MEDS: PRAZOSIN HCL 5 MG CAPSULE PO (20:24)
[2022-02-15] MEDS: QUEtiapine FUMARATE 25 MG TABLET PO (20:24)
[2022-02-15 20:25] LABS: Anion Gap 9 mmol/L (8-16); Blood Urea Nitrogen 64 mg/dL (7-17); Calcium 8.1 mg/dL (8.4-10.2); Carbon Dioxide 21 mmol/L (22-30); Chloride 107 mmol/L (98-107); Estimated CRCL calculation 26 ml/min; Estimated Glomerular Filt Rate 21; Glucose 130 mg/dL (65-110); Potassium 4.6 mmol/L (3.4-5.0); Sodium 137 mmol/L (137-145)
[2022-02-15] MEDS: TOLNAFTATE 1% POWDER 45 GM BTL 1 APPLIC TOPICAL (20:25)
[2022-02-15 21:08] LABS: Glucose Point of Care 148 mg/dl (65-105)
[2022-02-16] VITALS (22 sets, daily range): BP systolic 134–152; BP diastolic 45–77; PULSE 55–78; RESP 14–20; TEMP 36.6–37.1; O2SAT 85–100
[2022-02-16] MEDS: SODIUM ZIRCONIUM CYCLOSILICATE 10 GM POWD.PACK PO (00:19)
[2022-02-16] MEDS: ALBUTEROL SULFATE NEB 2.5 MG/3 ML INH 5 MG INHALATION ×3 (01:58→21:19)
[2022-02-16] MEDS: IPRATROPIUM BR 0.02% INH SOLN 0.5 MG/2.5 ML VIAL INHALATION ×3 (01:59→21:19)
[2022-02-16] MEDS: SODIUM CHLORIDE 0.9% IV 1,000 ML 100 ML IV CONT ×2 (02:03→14:24)
[2022-02-16 05:45] LABS: Basophils Absolute Auto 0.1 K/mm3 (0.0-0.1); Basophils Percent Auto 0.9 % (0.2-1.2); Eosinophils Absolute Auto 0.3 K/mm3 (0-0.3); Eosinophils Percent Auto 4.1 % (0-4.4); Hematocrit 21.5 % (37.0-47.0); Immature Granulocyte Absolute 0.15 K/mm3 (0.00-0.031); Immature Granulocyte Percent A 1.9 % (0-0.5); Lymphocytes Absolute Auto 0.56 K/mm3 (0.9-3.2); Lymphocytes Percent Auto 6.9 % (18.3-44.2); Mean Corpuscular HGB Conc 30.2 g/dl (32-36); Mean Corpuscular Hemoglobin 30.4 pg (26-34); Mean Corpuscular Volume 100.5 fl (80-100); Mean Platelet Volume 11.8 fl (7.4-10.4); Monocytes Absolute Auto 0.8 K/mm3 (0.1-0.6); Monocytes Percent Auto 9.6 % (2.6-8.5); Neutrophils Absolute Auto 6.2 K/mm3 (1.3-6.7); Neutrophils Percent Auto 76.6 % (45.5-73.1); Platelet Count Result 214 k/mm3 (150-375); Red Blood Count 2.14 M/mm3 (4.2-5.4); Red Cell Distribution Width 14.7 % (11.5-14.5); White Blood Count 8.1 K/mm3 (4.5-10.0)
[2022-02-16 05:51] LABS: Hemoglobin 6.5 g/dL (12.0-15.0)
[2022-02-16 06:04] LABS: Alanine Aminotransferase 17 U/L (6-35); Albumin Level 3.4 g/dL (3.5-5.1); Alkaline Phosphatase 172 U/L (38-126); Anion Gap 6 mmol/L (8-16); Aspartate Amino Transferase 58 U/L (14-36); Bilirubin,Total 0.2 mg/dL (0.2-1.3); Blood Urea Nitrogen 59 mg/dL (7-17); Calcium 7.7 mg/dL (8.4-10.2); Carbon Dioxide 22 mmol/L (22-30); Chloride 109 mmol/L (98-107); Estimated CRCL calculation 30 ml/min; Estimated Glomerular Filt Rate 24; Glucose 111 mg/dL (65-110); Lipase 53 U/L (23-300); Magnesium 2.2 mg/dL (1.6-2.3); Phosphorus 4.7 mg/dL (2.5-4.5); Potassium 4.2 mmol/L (3.4-5.0); Sodium 137 mmol/L (137-145)
[2022-02-16] MEDS: metroNIDAZOLE 250 MG TABLET 500 MG PO ×3 (06:35→20:50)
[2022-02-16] MEDS: GABAPENTIN 100 MG CAPSULE PO ×3 (06:35→20:50)
[2022-02-16] MEDS: allopurinoL 100 MG TABLET PO (08:14)
[2022-02-16] MEDS: ALPRAZolam (*CRX) 0.5 MG TABLET 1 MG PO (08:15)
[2022-02-16] MEDS: ATORVASTATIN 40 MG TABLET 80 MG PO (08:16)
[2022-02-16 08:22] LABS: Iron 74 ug/dL (37-170)
[2022-02-16 08:23] LABS: Glucose Point of Care 118 mg/dl (65-105)
[2022-02-16] MEDS: CARBIDOPA/LEVODOPA 25/100 MG TABLET 3 TABLET PO ×3 (08:24→17:23)
[2022-02-16] MEDS: DOXEPIN HCL 25 MG CAPSULE PO ×2 (08:26→17:24)
[2022-02-16] MEDS: OXcarbazepine 300 MG TABLET PO ×2 (08:26→17:25)
[2022-02-16] MEDS: polyethylene glycoL 3350 17 GM POWD.PACK PO (08:26)
[2022-02-16] MEDS: SODIUM BICARBONATE TAB 650 MG TABLET PO ×2 (08:27→17:25)
[2022-02-16] MEDS: PRIMIDONE 50 MG TABLET PO ×2 (08:27→17:25)
[2022-02-16] MEDS: TOLNAFTATE 1% POWDER 45 GM BTL 1 APPLIC TOPICAL ×2 (08:28→20:51)
[2022-02-16 08:32] LABS: Percent Iron Saturation 23 % (20-50)
[2022-02-16 09:30] LABS: Folic Acid 11.5 ng/mL (2.76->20)
[2022-02-16] MEDS: SODIUM CHLORIDE 0.9% IV 250 ML 30 ML IV CONT (10:56)
[2022-02-16] MEDS: PANTOPRAZOLE SODIUM IV 40 MG VIAL IV PUSH ×2 (10:57→20:50)
--- NOTE | 2022-02-16 11:10 | PCOTNOTE ---
Attempted to see patient for OT evaluation. She is getting blood at this time. Will continue to attempt.
[2022-02-16 12:54] LABS: Glucose Point of Care 134 mg/dl (65-105)
--- NOTE | 2022-02-16 13:42 | PCPTNOTE ---
Attempted PT evaluation, pt getting blood. Therapist recommended therapy waiting to see pt when blood is done. Will follow.
--- NOTE | 2022-02-16 13:51 | PM.IMPN ---
Progress Note: A&P Assessment and Plan (1) Anemia: Qualifiers: Anemia type: due to chronic kidney disease Chronic kidney disease stage: stage 4 (severe) Qualified Code(s): N18.4 - Chronic kidney disease, stage 4 (severe); D63.1 - Anemia in chronic kidney disease Code(s): D64.9 - Anemia, unspecified Status: Acute Assessment and Plan: Hgb dropped to 6.5 possibly related to the IV fluids. Iron studies, B12 folate normal. Transfuse one unit. Chart review showing: EGD normal on 12/17/19 [place] showing colitis transverse and rectosigmoid on 12/17/19; Bx showing ischemic changes Follow. Stop IV fluids. GI consult given her hx. (2) Bacteremia: Code(s): R78.81 - Bacteremia Status: Acute Assessment and Plan: BCx positive in one anaerobic bottle gram positive cocci in clusters. Proabbly a contaminant or from PNA; will add Vanco until final results known. (3) Acute hyperkalemia: Code(s): E87.5 - Hyperkalemia Status: Acute Assessment and Plan: Initial potassium was 6.5. after treatment, potassium dropped to 5.4. [place] hyperkalemia related to acute kidney injury. Potassium this morning was 6.9. Telemetry showing junctional rhythm but this was noted by EKG back in December so this may be more chronic. Patient treated appropriately. Potassium better. Stop Lokelma. (4) UTI (urinary tract infection): Code(s): N39.0 - Urinary tract infection, site not specified Status: Acute Assessment and Plan: UA noted and consistent with UTI. Urine cx EColi sensitive to Rocephin. Continue Rocephin. (5) Colitis: Code(s): K52.9 - Noninfective gastroenteritis and colitis, unspecified Status: Acute Assessment and Plan: Patient with history of colitis. CT scan showing gallbladder wall thickening with inflammatory changes. LFTs are normal except for mildly elevated alk phos of 199. No right upper quadrant pain to suggest acute cholecystitis. CT scan also shows cecal and transverse colonic wall thickening concerning for colitis. Will continue Flagyl and Rocephin. (6) NESHA (acute kidney injury): Code(s): N17.9 - Acute kidney failure, unspecified Status: Acute Assessment and Plan: Patient with acute on chronic renal failure. Baseline creatinine 1.5-1.8. Creatinine 2.4 admission. Suspect dehydration related to diarrhea. Also on Bumex at home which has been held. Cr better. Will stop IV fluids. (7) Acute dehydration: Code(s): E86.0 - Dehydration Status: Acute Assessment and Plan: As above. (8) Chronic respiratory failure: Code(s): J96.10 - Chronic respiratory failure, unspecified whether with hypoxia or hypercapnia Status: Acute Assessment and Plan: Patient had increase O2 requirement on admission at 4 L. lower extremity venous Doppler was negative for DVT. V/Q scan was low probability for PE. She has been easily weaned down to 2 L at this time. She does have chronic respiratory failure on 2-3 L of oxygen at home. She has sleep apnea but does not tolerate BiPAP at night. Continue supplemental oxygen keep SpO2 greater than 90%. (9) Stage 3b chronic kidney disease: Code(s): N18.32 - Chronic kidney disease, stage 3b Status: Chronic Assessment and Plan: As above (10) Heart failure with preserved ejection fraction: Code(s): I50.30 - Unspecified diastolic (congestive) heart failure Status: Chronic Assessment and Plan: Patient does not appear fluid overload. Continue to monitor daily intake and output. (11) Generalized weakness: Code(s): R53.1 - Weakness Status: Acute Assessment and Plan: Continue PT and OT. (12) Junctional rhythm: Code(s): I49.8 - Other specified cardiac arrhythmias Status: Acute Assessment and Plan: Patient noted to have junctional rhythm. Cards consulted.
[2022-02-16 15:19] LABS: Hemoglobin 7.7 g/dL (12.0-15.0)
[2022-02-16] MEDS: ACETAMINOPHEN 325 MG TABLET 650 MG PO (17:25)
[2022-02-16 17:33] LABS: Glucose Point of Care 99 mg/dl (65-105)
[2022-02-16] MEDS: PRAZOSIN HCL 5 MG CAPSULE PO (20:49)
[2022-02-16] MEDS: QUEtiapine FUMARATE 25 MG TABLET PO (20:50)
[2022-02-16] MEDS: rOPINIRole HCL 0.5 MG TABLET PO (20:50)
[2022-02-16 21:13] LABS: Glucose Point of Care 119 mg/dl (65-105)
[2022-02-17] MEDS: ACETAMINOPHEN 325 MG TABLET 650 MG PO ×3 (01:39→17:00)
[2022-02-17 02:50] VITALS: PULSE 63; RESP 18
[2022-02-17] MEDS: IPRATROPIUM BR 0.02% INH SOLN 0.5 MG/2.5 ML VIAL INHALATION (02:50)
[2022-02-17] MEDS: ALBUTEROL SULFATE NEB 2.5 MG/3 ML INH 5 MG INHALATION (02:50)
[2022-02-17 02:54] VITALS: PULSE 67; RESP 22
--- NOTE | 2022-02-17 03:05 | PCRCNOTE ---
pt ended UPD treatment early, stating no more, no more. pt began to have a slight anxiety attack saying she could not see, did not know where she was, etc. treatment removed and RN notified of episode.
[2022-02-17 05:43] VITALS: BP 145/47; PULSE 74; RESP 16; TEMP 36.4; O2SAT 93
[2022-02-17] MEDS: metroNIDAZOLE 250 MG TABLET 500 MG PO ×3 (05:58→21:14)
[2022-02-17] MEDS: GABAPENTIN 100 MG CAPSULE PO ×3 (05:58→21:14)
[2022-02-17 06:02] LABS: Basophils Absolute Auto 0.1 K/mm3 (0.0-0.1); Basophils Percent Auto 0.6 % (0.2-1.2); Eosinophils Percent Auto 11.4 % (0-4.4); Hematocrit 22.7 % (37.0-47.0); Immature Granulocyte Absolute 0.07 K/mm3 (0.00-0.031); Immature Granulocyte Percent A 0.8 % (0-0.5); Lymphocytes Absolute Auto 0.33 K/mm3 (0.9-3.2); Lymphocytes Percent Auto 3.8 % (18.3-44.2); Mean Corpuscular HGB Conc 30.8 g/dl (32-36); Mean Corpuscular Hemoglobin 29.7 pg (26-34); Mean Corpuscular Volume 96.2 fl (80-100); Mean Platelet Volume 10.8 fl (7.4-10.4); Monocytes Absolute Auto 0.7 K/mm3 (0.1-0.6); Monocytes Percent Auto 7.8 % (2.6-8.5); Neutrophils Absolute Auto 6.5 K/mm3 (1.3-6.7); Neutrophils Percent Auto 75.6 % (45.5-73.1); Platelet Count Result 188 k/mm3 (150-375); Red Blood Count 2.36 M/mm3 (4.2-5.4); Red Cell Distribution Width 15.4 % (11.5-14.5); White Blood Count 8.6 K/mm3 (4.5-10.0)
[2022-02-17 06:15] LABS: Alanine Aminotransferase 16 U/L (6-35); Albumin Level 3.3 g/dL (3.5-5.1); Alkaline Phosphatase 162 U/L (38-126); Anion Gap 4 mmol/L (8-16); Aspartate Amino Transferase 40 U/L (14-36); Bilirubin,Total 0.2 mg/dL (0.2-1.3); Blood Urea Nitrogen 39 mg/dL (7-17); Calcium 7.9 mg/dL (8.4-10.2); Carbon Dioxide 23 mmol/L (22-30); Chloride 108 mmol/L (98-107); Estimated CRCL calculation 35 ml/min; Estimated Glomerular Filt Rate 30; Glucose 108 mg/dL (65-110); Magnesium 1.8 mg/dL (1.6-2.3); Phosphorus 3.9 mg/dL (2.5-4.5); Potassium 3.9 mmol/L (3.4-5.0); Sodium 135 mmol/L (137-145)
[2022-02-17] MEDS: ALPRAZolam (*CRX) 0.5 MG TABLET 1 MG PO ×4 (06:43→21:13)
[2022-02-17 07:34] LABS: Hypochromasia 1+ (NORMAL); Platelet Estimate Adequate (Adequate)
[2022-02-17 07:35] LABS: Schistocytes None Seen (NORMAL)
[2022-02-17 08:15] LABS: Glucose Point of Care 108 mg/dl (65-105)
[2022-02-17] MEDS: allopurinoL 100 MG TABLET PO (08:21)
[2022-02-17] MEDS: CARBIDOPA/LEVODOPA 25/100 MG TABLET 3 TABLET PO ×3 (08:22→16:57)
[2022-02-17] MEDS: ATORVASTATIN 40 MG TABLET 80 MG PO (08:22)
[2022-02-17] MEDS: DOXEPIN HCL 25 MG CAPSULE PO ×2 (08:23→16:58)
[2022-02-17] MEDS: OXcarbazepine 300 MG TABLET PO ×2 (08:23→16:59)
[2022-02-17] MEDS: PANTOPRAZOLE SODIUM IV 40 MG VIAL IV PUSH ×2 (08:24→21:13)
[2022-02-17] MEDS: polyethylene glycoL 3350 17 GM POWD.PACK PO (08:24)
[2022-02-17] MEDS: PRIMIDONE 50 MG TABLET PO ×2 (08:24→16:59)
[2022-02-17] MEDS: SODIUM BICARBONATE TAB 650 MG TABLET PO ×2 (08:24→16:59)
[2022-02-17] MEDS: TOLNAFTATE 1% POWDER 45 GM BTL 1 APPLIC TOPICAL ×2 (08:26→21:15)
--- NOTE | 2022-02-17 10:42 | WPDGICN ---
Assessment and Plan Assessment and plan (1) Colitis: Code(s): K52.9 - Noninfective gastroenteritis and colitis, unspecified Status: Acute Assessment and Plan: CT shows changes suggestive of colitis in the cecum and transverse colon. On a previous admission she had segmental colitis that was felt to be ischemic on histology. I told her that we will perform a colonoscopy to try to determine exactly what is going on. This has been treated and is likely due to her renal insufficiency. (2) Acute hyperkalemia: Code(s): E87.5 - Hyperkalemia Status: Acute (3) UTI (urinary tract infection): Code(s): N39.0 - Urinary tract infection, site not specified Status: Acute Assessment and Plan: E coli was found on urine. She is on Rocephin at this time. (4) Bacteremia: Code(s): R78.81 - Bacteremia Status: Acute Assessment and Plan: That could be a contaminant. She is however on antibiotics (5) Stage 3b chronic kidney disease: Code(s): N18.32 - Chronic kidney disease, stage 3b Status: Chronic Assessment and Plan: creatinine was 2.4 admission but is down now to 1.7. Consequently part of her renal issue is acute kidney injury and/or dehydration Plan she will be scheduled for colonoscopy to be done on Saturday. I discussed bowel prep with her. She will not need extensive prep because she already has diarrhea. GI Consult Note Consult date/time: 02/17/22 10:42 HPI: Jenni Rondon is a 71 year old female With a history of chronic kidney disease, COPD, hypertension, Parkinson's, and diabetes. She came to the emergency room with a history of severe diarrhea for several days and also was feeling short of breath. She at 1st could not recall this morning while she had come to the emergency room until I refreshed her memory. She then told me that she had something like this several years ago with cramping and diarrhea and then it seemed to go away. I found that she actually had a colonoscopy here a few years ago that revealed ischemic colitis changes in the adverse colon and sigmoid colon. There were segmental, not confluent. On this admission CT scan shows: Suggestion of gallbladder wall thickening and inflammatory change, correlate with clinical presentation and with biliary labs. Cecal and transverse colonic wall thickening with surrounding inflammatory change as can be seen with infectious, inflammatory, or ischemic colitis. Bladder wall thickening, likely secondary to inadequate distention or cystitis. she states that between this episode her previous episode she has had fairly normal bowel movements. She denies seen any blood in her stools. She was also found have elevation of her potassium which has been treated and she has a urinary tract infection for which she is on antibiotics. If she should happen have ischemic colitis the antibiotics would be serendipitous and help with that situation also. Review of Systems Review of Systems: All systems reviewed & are unremarkable except as noted in HPI and below [facility] Past Medical History Medical History (Updated 02/17/22 @ 10:49 by Hiren Fitzgerald MD) Acute hyperkalemia Anxiety BMI greater than 40 Chronic anemia Chronic kidney disease, stage 3 Baseline creatinine ranges between 1.2 and 1.50. Chronic obstructive pulmonary disease Depression Gastroesophageal reflux disease GI bleed (01/2010) Secondary to peptic ulcer. Heart failure with preserved ejection fraction Hyperlipidemia Hypertension Hypothyroidism Junctional rhythm Kidney stones Neuropathy Obstructive sleep apnea Patient does not use PAP therapy at nighttime. Osteoarthritis Parkinson disease Restless leg syndrome Type 2 diabetes mellitus Surgical History Surgical History History of bilateral knee arthroplasty History of hysterectomy History of sinus surgery Family Hist
[2022-02-17 12:20] LABS: Glucose Point of Care 100 mg/dl (65-105)
[2022-02-17 14:00] VITALS: BP 150/56; PULSE 60; RESP 18; TEMP 36.4; O2SAT 100
--- NOTE | 2022-02-17 15:03 | PM.IMPN ---
Progress Note: A&P Assessment and Plan (1) Anemia: Qualifiers: Anemia type: due to chronic kidney disease Chronic kidney disease stage: stage 4 (severe) Qualified Code(s): N18.4 - Chronic kidney disease, stage 4 (severe); D63.1 - Anemia in chronic kidney disease Code(s): D64.9 - Anemia, unspecified Status: Acute Assessment and Plan: Hgb dropped to 6.5 possibly related to the IV fluids. Iron studies, B12 folate normal. Transfuse one unit. Chart review showing: EGD normal on 12/17/19 [place] showing colitis transverse and rectosigmoid on 12/17/19; Bx showing ischemic changes Eliquis held. On PPI Q12h. Hgb 7.0 currently. Stool guaiac pending. GI consulted. Discussed with Dr Fitzgerald with plans for colonoscopy on Saturday. Not felt Abdominal CTA warranted at this time. Follow. (2) Bacteremia: Code(s): R78.81 - Bacteremia Status: Acute Assessment and Plan: BCx positive in one anaerobic bottle gram positive cocci in clusters that grew out Staph Epi felt to be a contaminant. Will stop Vanco. (3) UTI (urinary tract infection): Code(s): N39.0 - Urinary tract infection, site not specified Status: Acute Assessment and Plan: UA noted and consistent with UTI. Urine cx EColi sensitive to Rocephin. Continue Rocephin. (4) Colitis: Code(s): K52.9 - Noninfective gastroenteritis and colitis, unspecified Status: Acute Assessment and Plan: Patient with history of colitis. CT scan showing gallbladder wall thickening with inflammatory changes. AST and alk phos were mildly elevated but now tredning down. No right upper quadrant pain to suggest acute cholecystitis. CT scan also shows cecal and transverse colonic wall thickening concerning for colitis. Colonoscopy with biopsies in the past showing ischemic colitis. Will continue Flagyl and Rocephin. (5) NESHA (acute kidney injury): Code(s): N17.9 - Acute kidney failure, unspecified Status: Acute Assessment and Plan: Patient with acute on chronic renal failure. Baseline creatinine 1.5-1.8. Creatinine 2.4 admission. Suspect NESHA related to UTI and dehydration from diarrhea. Also on Bumex at home which has been held. Cr back to baseline. IV fluids stopped. If remains stable, will resume Bumex. (6) Acute hyperkalemia: Code(s): E87.5 - Hyperkalemia Status: Acute Assessment and Plan: Initial potassium was 6.5. After appropriate treatment, potassium dropped to 5.4. [place] hyperkalemia related to acute kidney injury. Potassium up again to 6.9. Telemetry showing junctional rhythm but this was noted by EKG back in December so this may be more chronic. Patient treated appropriately. Potassium normal so Lokelma stopped. Potassium remaining normal off Lokelma. Resolved. (7) Chronic respiratory failure: Code(s): J96.10 - Chronic respiratory failure, unspecified whether with hypoxia or hypercapnia Status: Acute Assessment and Plan: Patient had increase O2 requirement on admission at 4 L. lower extremity venous Doppler was negative for DVT. V/Q scan was low probability for PE. She has been easily weaned down to 2 L at this time. She does have chronic respiratory failure on 2-3 L of oxygen at home. She has sleep apnea but does not tolerate BiPAP at night. Continue supplemental oxygen to keep SpO2 greater than 90%. (8) Stage 3b chronic kidney disease: Code(s): N18.32 - Chronic kidney disease, stage 3b Status: Chronic Assessment and Plan: Baseline creatinine 1.5-1.8. As above (9) Heart failure with preserved ejection fraction: Code(s): I50.30 - Unspecified diastolic (congestive) heart failure Status: Chronic Assessment and Plan: Patient does not appear fluid overload. Continue to monitor daily intake and output. Resume Bumex when able (10) Generalized weakness: Code(s): R53.1 - Weakness Status: A
[2022-02-17 17:07] LABS: Glucose Point of Care 103 mg/dl (65-105)
[2022-02-17 20:42] VITALS: BP 175/55; PULSE 55; RESP 22; TEMP 36.3; O2SAT 100
[2022-02-17 20:47] LABS: Glucose Point of Care 104 mg/dl (65-105)
[2022-02-17] MEDS: rOPINIRole HCL 0.5 MG TABLET PO (21:14)
[2022-02-17] MEDS: PRAZOSIN HCL 5 MG CAPSULE PO (21:14)
[2022-02-17] MEDS: QUEtiapine FUMARATE 25 MG TABLET PO (21:14)
[2022-02-18 05:16] VITALS: BP 147/57; PULSE 55; RESP 20; TEMP 36.9; O2SAT 100
[2022-02-18 05:31] LABS: Hematocrit 24.2 % (37.0-47.0); Hemoglobin 7.4 g/dL (12.0-15.0); Mean Corpuscular HGB Conc 30.6 g/dl (32-36); Mean Corpuscular Hemoglobin 30.3 pg (26-34); Mean Corpuscular Volume 99.2 fl (80-100); Platelet Count Result 191 k/mm3 (150-375); Red Blood Count 2.44 M/mm3 (4.2-5.4); White Blood Count 7.5 K/mm3 (4.5-10.0)
[2022-02-18] MEDS: GABAPENTIN 100 MG CAPSULE PO ×3 (05:40→22:19)
[2022-02-18] MEDS: metroNIDAZOLE 250 MG TABLET 500 MG PO ×3 (05:40→22:19)
[2022-02-18 05:51] LABS: Alanine Aminotransferase 16 U/L (6-35); Albumin Level 3.5 g/dL (3.5-5.1); Alkaline Phosphatase 143 U/L (38-126); Anion Gap 6 mmol/L (8-16); Aspartate Amino Transferase 30 U/L (14-36); Bilirubin,Total 0.4 mg/dL (0.2-1.3); Blood Urea Nitrogen 30 mg/dL (7-17); Calcium 7.8 mg/dL (8.4-10.2); Carbon Dioxide 22 mmol/L (22-30); Chloride 109 mmol/L (98-107); Estimated CRCL calculation 46 ml/min; Estimated Glomerular Filt Rate 40; Glucose 96 mg/dL (65-110); Potassium 4.2 mmol/L (3.4-5.0); Sodium 137 mmol/L (137-145)
[2022-02-18 08:13] LABS: Glucose Point of Care 97 mg/dl (65-105)
[2022-02-18] MEDS: allopurinoL 100 MG TABLET PO (08:21)
[2022-02-18] MEDS: ATORVASTATIN 40 MG TABLET 80 MG PO (08:22)
[2022-02-18] MEDS: ALPRAZolam (*CRX) 0.5 MG TABLET 1 MG PO ×4 (08:22→20:26)
[2022-02-18] MEDS: CARBIDOPA/LEVODOPA 25/100 MG TABLET 3 TABLET PO ×3 (08:23→17:29)
[2022-02-18] MEDS: DOXEPIN HCL 25 MG CAPSULE PO ×2 (08:24→17:29)
[2022-02-18] MEDS: OXcarbazepine 300 MG TABLET PO ×2 (08:24→17:30)
[2022-02-18] MEDS: SODIUM BICARBONATE TAB 650 MG TABLET PO ×2 (08:25→17:30)
[2022-02-18] MEDS: PANTOPRAZOLE SODIUM IV 40 MG VIAL IV PUSH ×2 (08:25→20:30)
[2022-02-18] MEDS: PRIMIDONE 50 MG TABLET PO ×2 (08:25→17:30)
[2022-02-18] MEDS: TOLNAFTATE 1% POWDER 45 GM BTL 1 APPLIC TOPICAL ×2 (08:26→22:19)
[2022-02-18 08:38] VITALS: O2SAT 97
--- NOTE | 2022-02-18 09:08 | PM.IMPN ---
Progress Note: A&P Assessment and Plan (1) Anemia: Qualifiers: Anemia type: due to chronic kidney disease Chronic kidney disease stage: stage 4 (severe) Qualified Code(s): N18.4 - Chronic kidney disease, stage 4 (severe); D63.1 - Anemia in chronic kidney disease Code(s): D64.9 - Anemia, unspecified Status: Acute Assessment and Plan: Hgb dropped to 6.5 possibly related to the IV fluids. Iron studies, B12 folate normal. Transfused one unit. Chart review showing: EGD normal on 12/17/19 [place] showing colitis transverse and rectosigmoid on 12/17/19; Bx showing ischemic changes Eliquis held. On PPI Q12h. Hgb 7.4 currently and stable. Stool guaiac pending. GI consulted. Plans for colonoscopy tomorrow. Follow. (2) Bacteremia: Code(s): R78.81 - Bacteremia Status: Acute Assessment and Plan: BCx positive in one anaerobic bottle gram positive cocci in clusters that grew out Staph Epi felt to be a contaminant. Vanco stopped. On Rocephin for UTI. (3) UTI (urinary tract infection): Code(s): N39.0 - Urinary tract infection, site not specified Status: Acute Assessment and Plan: UA noted and consistent with UTI. Urine cx EColi sensitive to Rocephin. Continue Rocephin. (4) Colitis: Code(s): K52.9 - Noninfective gastroenteritis and colitis, unspecified Status: Acute Assessment and Plan: Patient with history of colitis. CT scan shows cecal and transverse colonic wall thickening concerning for colitis. Colonoscopy with biopsies in the past showing ischemic colitis. CT scan also showing gallbladder wall thickening with inflammatory changes. AST and alk phos were mildly elevated but now AST normal and AP trending down. No right upper quadrant pain to suggest acute cholecystitis. Will continue Flagyl and Rocephin. (5) NESHA (acute kidney injury): Code(s): N17.9 - Acute kidney failure, unspecified Status: Acute Assessment and Plan: Patient with acute on chronic renal failure. Baseline creatinine 1.5-1.8. Creatinine 2.4 on admission. Suspect NESHA related to UTI and dehydration from diarrhea. Also on Bumex at home which has been held. Cr back to baseline. IV fluids stopped. If remains stable, will resume Bumex after her colon prep. (6) Acute hyperkalemia: Code(s): E87.5 - Hyperkalemia Status: Acute Assessment and Plan: Initial potassium was 6.5. After appropriate treatment, potassium dropped to 5.4. [place] hyperkalemia related to acute kidney injury. Potassium up again to 6.9. Telemetry showing junctional rhythm but this was noted by EKG back in December so this may be more chronic. Patient treated appropriately. Potassium normal so Lokelma stopped. Potassium remaining normal off Lokelma. Continue low potassium diet. Resolved. (7) Chronic respiratory failure: Code(s): J96.10 - Chronic respiratory failure, unspecified whether with hypoxia or hypercapnia Status: Acute Assessment and Plan: Patient had increase O2 requirement on admission at 4 L. lower extremity venous Doppler was negative for DVT. V/Q scan was low probability for PE. She has been easily weaned down to 2 L at this time. She does have chronic respiratory failure on 2-3 L of oxygen at home. She has sleep apnea but does not tolerate BiPAP at night. Continue supplemental oxygen to keep SpO2 greater than 90%. (8) Stage 3b chronic kidney disease: Code(s): N18.32 - Chronic kidney disease, stage 3b Status: Chronic Assessment and Plan: Baseline creatinine 1.5-1.8. As above (9) Heart failure with preserved ejection fraction: Code(s): I50.30 - Unspecified diastolic (congestive) heart failure Status: Chronic Assessment and Plan: Patient does not appear fluid overload. Continue to monitor daily intake and output. Resume Bumex when able (10) Generalized weakness: Code(s): R53.1 -
[2022-02-18 12:05] LABS: Glucose Point of Care 129 mg/dl (65-105)
[2022-02-18 14:00] VITALS: BP 147/63; PULSE 56; RESP 20; TEMP 36.6; O2SAT 98
[2022-02-18] MEDS: polyethylene glycoL 3350 238 GM BOTTLE PO (16:20)
[2022-02-18 17:59] LABS: Glucose Point of Care 134 mg/dl (65-105)
[2022-02-18] MEDS: rOPINIRole HCL 0.5 MG TABLET PO (20:26)
[2022-02-18] MEDS: PRAZOSIN HCL 5 MG CAPSULE PO (20:26)
[2022-02-18 21:37] VITALS: BP 149/56; PULSE 55; RESP 20; TEMP 36.6; O2SAT 100
[2022-02-18] MEDS: QUEtiapine FUMARATE 25 MG TABLET PO (22:19)
[2022-02-19] VITALS (10 sets, daily range): BP systolic 142–208; BP diastolic 51–75; PULSE 53–76; RESP 15–22; TEMP 36.3–37; O2SAT 96–100
[2022-02-19 00:03] LABS: Glucose Point of Care 132 mg/dl (65-105)
[2022-02-19 05:46] LABS: Hemoglobin 7.6 g/dL (12.0-15.0); Mean Corpuscular HGB Conc 30.4 g/dl (32-36); Mean Corpuscular Hemoglobin 29.6 pg (26-34); Mean Corpuscular Volume 97.3 fl (80-100); Mean Platelet Volume 10.8 fl (7.4-10.4); Platelet Count Result 195 k/mm3 (150-375); Red Blood Count 2.57 M/mm3 (4.2-5.4); Red Cell Distribution Width 14.8 % (11.5-14.5); White Blood Count 8.9 K/mm3 (4.5-10.0)
[2022-02-19] MEDS: GABAPENTIN 100 MG CAPSULE PO ×2 (05:52→13:45)
[2022-02-19] MEDS: metroNIDAZOLE 250 MG TABLET 500 MG PO ×2 (05:52→13:46)
[2022-02-19 05:54] LABS: Albumin Level 3.3 g/dL (3.5-5.1); Anion Gap 3 mmol/L (8-16); Blood Urea Nitrogen 20 mg/dL (7-17); Calcium 8.1 mg/dL (8.4-10.2); Carbon Dioxide 27 mmol/L (22-30); Chloride 105 mmol/L (98-107); Estimated CRCL calculation 46 ml/min; Estimated Glomerular Filt Rate 40; Glucose 94 mg/dL (65-110); Phosphorus 3.8 mg/dL (2.5-4.5); Sodium 135 mmol/L (137-145)
[2022-02-19 08:37] LABS: Glucose Point of Care 118 mg/dl (65-105)
[2022-02-19 11:50] LABS: Glucose Point of Care 100 mg/dl (65-105)
[2022-02-19] MEDS: LACTATED RINGERS 1,000 ML 150 ML IV CONT (11:54)
--- NOTE | 2022-02-19 12:06 | WPDANESEPPF ---
Anes - Initial Pre Proc Eval Procedure: Operation Date: 02/19/22 12:30 Proposed Procedures p Colonoscopy - Hiren Fitzgerald MD Date/Time: 02/19/22 12:06 Surgeon: Antonio Corrigan MD Pre Op Diagnosis: Hyperkalemia,Colitis Patient Data Age: 71 Gender: F Height: 1.6 m Weight: 127.8 kg Last Vital Signs Temp 97.3 F L 02/19/22 11:58 Pulse 75 02/19/22 11:58 Resp 22 H 02/19/22 11:58 BP 176/61 H 02/19/22 11:58 Pulse Ox 100 02/19/22 11:58 O2 Del Method Nasal Cannula 02/19/22 11:58 O2 Flow Rate 2 02/19/22 11:58 Allergies Allergy/AdvReac Type Severity Reaction Status Date / Time iodine Allergy Severe Hives Verified 12/23/21 07:07 latex Allergy Severe Hives Verified 12/23/21 07:07 Contrast Media Allergy Mild Hives Uncoded 12/23/21 07:07 Home Medications Medication Instructions Recorded Confirmed Type atorvastatin 80 mg tablet 80 mg PO QAM 12/10/19 02/15/22 History carbidopa 25 mg-levodopa 100 mg 3 tablet PO TID 12/10/19 02/15/22 History tablet fluoxetine 40 mg capsule 40 mg PO BID 12/10/19 02/15/22 History oxcarbazepine 300 mg tablet 300 mg PO BID 12/10/19 02/15/22 History alprazolam 1 mg tablet 1 mg PO QID 10/10/20 02/15/22 History allopurinol 100 mg tablet 100 mg PO DAILY 12/12/21 02/15/22 History doxepin 25 mg capsule 25 mg PO BID 12/12/21 02/15/22 History empagliflozin 10 mg tablet 10 mg PO DAILY 12/12/21 02/15/22 History (Jardiance) ipratropium 0.5 mg-albuterol 3 mg 3 ml inhalation Q6H 12/12/21 02/15/22 History (2.5 mg base)/3 mL nebulization soln prazosin 5 mg capsule 5 mg PO HS 12/12/21 02/15/22 History ropinirole 0.5 mg tablet 0.5 mg PO HS 12/12/21 02/15/22 History primidone 50 mg tablet 50 mg PO BID 12/21/21 02/15/22 History acetaminophen 650 mg tablet 650 mg PO Q6H PRN Pain 12/23/21 02/15/22 History albuterol sulfate 90 mcg/actuation 2 puff inhalation QID PRN 12/23/21 02/15/22 History aerosol inhaler Shortness Of Breath Or Wheezing quetiapine 25 mg tablet 25 mg PO HS 12/23/21 02/15/22 History sodium bicarbonate 650 mg tablet 650 mg PO BID 12/23/21 02/15/22 History topiramate 100 mg tablet 100 mg PO BID 12/23/21 02/15/22 History gabapentin 100 mg PO TID 12/29/21 02/15/22 History apixaban 5 mg tablet (Eliquis) 5 mg PO Q12HR #60 tabs 01/05/22 02/15/22 Rx hydralazine 25 mg tablet 25 mg PO TID #90 tabs 01/05/22 02/15/22 Rx bumetanide 1 mg tablet 1 mg PO DAILY 02/15/22 02/15/22 History fluvoxamine 100 mg tablet 100 mg PO DAILY 02/15/22 02/15/22 History losartan 25 mg PO DAILY 02/15/22 02/15/22 History Laboratory Tests 02/18/22 02/18/22 02/19/22 17:21 22:20 05:34 WBC 8.9 K/mm3 K/mm3 (4.5-10.0) RBC 2.57 M/mm3 L M/mm3 (4.2-5.4) Hgb 7.6 g/dL L g/dL (12.0-15.0) Hct 25.0 % L % (37.0-47.0) MCV 97.3 fl fl (80-100) MCH 29.6 pg pg (26-34) MCHC 30.4 g/dl L g/dl (32-36) RDW 14.8 % H % (11.5-14.5) Plt Count 195 k/mm3 k/mm3 (150-375) MPV 10.8 fl H fl (7.4-10.4) Sodium Potassium Chloride Carbon Dioxide Anion Gap BUN Creatinine Estim Creat Clear Calc Estimated GFR Glucose POC Capillary Glucose 134 mg/dl H mg/dl 132 mg/dl H mg/dl (65-105) (65-105) Calcium Phosphorus Albumin 02/19/22 02/19/22 02/19/22 05:34 08:33 11:46 WBC RBC Hgb Hct MCV MCH MCHC RDW Plt Count MPV Sodium 135 mmol/L L mmol/L (137-145) Potassium 4.0 mmol/L mmol/L (3.4-5.0) Chloride 105 mmol/L mmol/L (98-107) Carbon Dioxide 27 mmol/L mmol/L (22-30) Anion Gap 3 mmol/L L mmol/L (8-16) BUN 20 mg/dL H D mg/dL (7-17) Creatinine 1
[2022-02-19] MEDS: CARBIDOPA/LEVODOPA 25/100 MG TABLET 3 TABLET PO ×2 (13:44→16:51)
[2022-02-19] MEDS: ATORVASTATIN 40 MG TABLET 80 MG PO (13:44)
[2022-02-19] MEDS: OXcarbazepine 300 MG TABLET PO ×2 (13:45→16:52)
[2022-02-19] MEDS: PANTOPRAZOLE SODIUM IV 40 MG VIAL IV PUSH (13:45)
[2022-02-19] MEDS: DOXEPIN HCL 25 MG CAPSULE PO ×2 (13:45→16:53)
[2022-02-19] MEDS: allopurinoL 100 MG TABLET PO (13:45)
[2022-02-19] MEDS: SODIUM BICARBONATE TAB 650 MG TABLET PO ×2 (13:45→16:53)
[2022-02-19] MEDS: PRIMIDONE 50 MG TABLET PO ×2 (13:46→16:53)
[2022-02-19] MEDS: ALPRAZolam (*CRX) 0.5 MG TABLET 1 MG PO ×2 (13:51→16:51)
[2022-02-19] MEDS: TOLNAFTATE 1% POWDER 45 GM BTL 1 APPLIC TOPICAL (13:53)
[2022-02-19] MEDS: TOPIRAMATE 100 MG TABLET PO ×2 (13:54→16:53)
--- NOTE | 2022-02-19 15:48 | PM.DS ---
DS: Admitting Diagnosis Discharge Date 02/19/22 Admitting Diagnosis Chest pain, shortness of breath, abdominal pain and watery diarrhea DS: Discharge Diagnosis Discharge Diagnosis (1) Anemia: Qualifiers: Anemia type: due to chronic kidney disease Chronic kidney disease stage: stage 4 (severe) Qualified Code(s): N18.4 - Chronic kidney disease, stage 4 (severe); D63.1 - Anemia in chronic kidney disease Code(s): D64.9 - Anemia, unspecified Status: Acute (2) Bacteremia: Code(s): R78.81 - Bacteremia Status: Acute (3) UTI (urinary tract infection): Code(s): N39.0 - Urinary tract infection, site not specified Status: Acute (4) Colitis: Code(s): K52.9 - Noninfective gastroenteritis and colitis, unspecified Status: Acute (5) NESHA (acute kidney injury): Code(s): N17.9 - Acute kidney failure, unspecified Status: Acute (6) Acute hyperkalemia: Code(s): E87.5 - Hyperkalemia Status: Acute (7) Chronic respiratory failure: Code(s): J96.10 - Chronic respiratory failure, unspecified whether with hypoxia or hypercapnia Status: Acute (8) Stage 3b chronic kidney disease: Code(s): N18.32 - Chronic kidney disease, stage 3b Status: Chronic (9) Heart failure with preserved ejection fraction: Code(s): I50.30 - Unspecified diastolic (congestive) heart failure Status: Chronic (10) Generalized weakness: Code(s): R53.1 - Weakness Status: Acute (11) Junctional rhythm: Code(s): I49.8 - Other specified cardiac arrhythmias Status: Acute (12) Supraventricular bigeminy: Code(s): R00.8 - Other abnormalities of heart beat Status: Acute (13) Chest pain: Code(s): R07.9 - Chest pain, unspecified Status: Acute DS: Summary Hospital Course Reason for hospitalization: 71yo female with CKD, chronic resp failure, Parkinsons, COPD and dCHF here for CP, SOB, abd pain and diarrhea. please see H&P for details. Hospital Course: Patient had increase O2 requirement on admission at 4 L. Lower extremity venous Doppler was negative for DVT.? V/Q scan was low probability for PE.? She was easily weaned down to 2 L at this time.? She does have chronic respiratory failure on 2-3 L of oxygen at home.? She has sleep apnea but does not tolerate BiPAP at night.?Initial potassium was 6.5. After appropriate treatment, potassium dropped to 5.4.? [place] hyperkalemia related to acute kidney injury.? Potassium up again to 6.9.? Telemetry showing junctional rhythm but this was noted by EKG back in December so this may be more chronic.? Patient treated appropriately. Potassium normalized so Lokelma stopped. Potassium remained normal off Lokelma. Patient noted to have junctional rhythm with chest pain. Cardiology consulted. This has been noted in the past on review of old EKGs; could be related to hyperkalemia. Monitored on telemetry. Patient with acute on chronic renal failure.? Baseline creatinine 1.5-1.8.? Creatinine 2.4 admission.? Suspect NESHA related to UTI and dehydration from diarrhea.? Also on Bumex at home which was held.? Cr back to baseline. IV fluids stopped. Bumex resumed after she completed her bowel prep. Patient with history of colitis.? CT scan shows cecal and transverse colonic wall thickening concerning for colitis. Colonoscopy with biopsies in the past showing ischemic colitis. CT scan also showing gallbladder wall thickening with inflammatory changes. AST and alk phos were mildly elevated but now AST normal and AP trending down.? No right upper quadrant pain to suggest acute cholecystitis.? Treated with Flagyl and Rocephin. Also with UTI with EColi. BCx positive in one anaerobic bottle gram positive cocci in clusters that grew out Staph Epi felt to be a contaminant. Vancomycin stopped. Hgb dropped to 6.5 possibly related to the IV fluids. Iron studies, B12 folate normal. Transfused one unit. hgb improved.
[2022-02-19 17:29] LABS: Glucose Point of Care 123 mg/dl (65-105)
--- NOTE | 2022-02-20 07:25 | WPDANESPN ---
Anes - Prog Note Post-Op Date/Time: 02/20/22 07:25 Cardiovascular status: normal Respiratory status: normal Airway patency: baseline Mental status: baseline Post-Op hydration status: normal Vital Signs: Last Vital Signs Temp 97.3 F L 02/19/22 15:10 Pulse 60 02/19/22 15:10 Resp 18 02/19/22 15:10 BP 151/58 H 02/19/22 15:10 Pulse Ox 100 02/19/22 15:10 O2 Del Method Nasal Cannula 02/19/22 13:11 O2 Flow Rate 2 02/19/22 13:11 Pain Score (VAS): 0 I/O: Intake & Output 02/19/22 02/19/22 02/20/22 15:59 23:59 07:59 Intake Total 150 690 Output Total 1900 Balance 150 -1210 Laboratory Tests 02/19/22 05:34 02/19/22 05:34 02/19/22 02/19/22 02/19/22 08:33 11:46 17:26 POC Capillary Glucose 118 H 100 123 H Microbiology 02/14/22 17:14 Blood Blood Culture - Final Patient Feedback: Patient satisfied with anesthetic care.
== END 2022-02-19 18:05 | disposition home or self-care (01) | DRG 392 ==
LOC: ANHED 19:28 → ANH3MEDSUR 22:15 → ANH2MED 23:22
PROVIDERS: Internal Medicine Gastroenterology; Admitting Provider Internal Medicine; Emergency Provider Emergency Medicine; Visit Provider Internal Medicine
PROC: 0DJD8ZZ Inspection of Lower Intestinal Tract, Via Natural or Artificial Opening Endoscopic (ICD-10-PCS; CPT 45378; principal; 2022-02-19 12:30)
DX: K52.9 Noninfective gastroenteritis and colitis, unspecified (principal); N17.9 Acute kidney failure, unspecified; N39.0 Urinary tract infection, site not specified; J96.11 Chronic respiratory failure with hypoxia; I13.0 Hypertensive heart and chronic kidney disease with heart failure and stage 1 through stage 4 chronic kidney disease, or unspecified chronic kidney disease; I50.32 Chronic diastolic (congestive) heart failure; N18.4 Chronic kidney disease, stage 4 (severe); Z68.42 Body mass index [BMI] 45.0-49.9, adult; B96.20 Unspecified Escherichia coli [E. coli] as the cause of diseases classified elsewhere; Z20.822 Contact with and (suspected) exposure to COVID-19; E11.22 Type 2 diabetes mellitus with diabetic chronic kidney disease; K57.30 Diverticulosis of large intestine without perforation or abscess without bleeding; E87.5 Hyperkalemia; D63.1 Anemia in chronic kidney disease; R00.8 Other abnormalities of heart beat; J44.9 Chronic obstructive pulmonary disease, unspecified; E03.9 Hypothyroidism, unspecified; G20 Parkinson's disease; K21.9 Gastro-esophageal reflux disease without esophagitis; G47.33 Obstructive sleep apnea (adult) (pediatric); F41.1 Generalized anxiety disorder; E86.0 Dehydration; E11.42 Type 2 diabetes mellitus with diabetic polyneuropathy; G25.81 Restless legs syndrome; I49.8 Other specified cardiac arrhythmias; Z96.653 Presence of artificial knee joint, bilateral; Z90.710 Acquired absence of both cervix and uterus; Z87.891 Personal history of nicotine dependence; Z99.81 Dependence on supplemental oxygen; E66.01 Morbid (severe) obesity due to excess calories
CPT/HCPCS: 36415; 36430; 71045; 74176; 78580; 80048; 80053; 80069; 81001; 82607; 82728; 82746; 82803; 82948; 83540; 83550; 83605; 83690; 83735; 84100; 84443; 84484; 85014; 85018; 85025; 85027; 85610; 85730; 86850; 86900; 86901; 86923; 87040; 87077; 87086; 87147; 87181; 87186; 87637; 88305; 93005; 93971; 94640; 96361; 96365; 96375; 96376; 97110; 97161; 97165; 97530; 99285; A9270; A9540; C9113; G0378; J0131; J0610; J0696; J1815; J2001; J2060; J2270; J2405; J2704; J2930; J3370; J7030; J7050; J7120; P9016

== ENCOUNTER 2022-02-20 19:35 | Inpatient (IN) | payer MEDICARE, BC, SELFPAY ==
--- NOTE | ~2022-02-20 | XR_ITS ---
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 RESULT: Lines, tubes, and devices: None. Lungs and pleura: Stable mild reticular opacities. New mild left lateral costophrenic angle blunting . Cardiomediastinal silhouette: Stable. Possible calcified right hilar node. Other: No acute osseous or upper abdominal finding. IMPRESSION: Stable mild interstitial edema. New small right pleural effusion. Reviewed, dictated and finalized at location K. OR NET ENGINEER
[2022-02-20 19:41] VITALS: BP 166/59; PULSE 72; RESP 22; TEMP 37; O2SAT 100
[2022-02-20 19:45] VITALS: O2SAT 100
--- NOTE | 2022-02-20 19:46 | ECG_ITS ---
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
[2022-02-20 20:33] LABS: Alveolar/Arterial O2 Gradient 88.3 mmHg; Base Excess ABG -2.1 mEq/l (+/-2.0); Device NASAL CANNULA; Fractional Inspired Oxygen 40 %; HCO3 ABG 23.8 mEq/l (22.0-26.0); Modified Allen's Test Pass; Oxygen Content ABG 12.1 %vol (16.0-22.0); Oxygen Saturation ABG 98.7 % (95.0-100.0); Oxyhemoglobin 97.5 % THb (90.0-100.0); PCO2 ABG 46.2 mmHg (35.0-45.0); PO2 ABG 143.8 mmHg (80.0-100.0); Site Drawn RIGHT BRACHIAL; Total Hemoglobin 8.6 g/dL (12.0-18.0)
[2022-02-20 21:00] VITALS: BP 155/48; PULSE 60; RESP 15; O2SAT 100
[2022-02-20 21:01] LABS: Basophils Absolute Auto 0.1 K/mm3 (0.0-0.1); Basophils Percent Auto 0.5 % (0.2-1.2); Eosinophils Absolute Auto 0.9 K/mm3 (0-0.3); Eosinophils Percent Auto 6.7 % (0-4.4); Hematocrit 25.8 % (37.0-47.0); Hemoglobin 7.8 g/dL (12.0-15.0); Immature Granulocyte Absolute 0.16 K/mm3 (0.00-0.031); Immature Granulocyte Percent A 1.2 % (0-0.5); Lymphocytes Absolute Auto 0.94 K/mm3 (0.9-3.2); Lymphocytes Percent Auto 7.3 % (18.3-44.2); Mean Corpuscular HGB Conc 30.2 g/dl (32-36); Mean Corpuscular Hemoglobin 30.2 pg (26-34); Mean Platelet Volume 11.1 fl (7.4-10.4); Monocytes Percent Auto 7.7 % (2.6-8.5); Neutrophils Absolute Auto 9.9 K/mm3 (1.3-6.7); Neutrophils Percent Auto 76.6 % (45.5-73.1); Platelet Count Result 209 k/mm3 (150-375); Red Blood Count 2.58 M/mm3 (4.2-5.4); Red Cell Distribution Width 14.8 % (11.5-14.5); White Blood Count 12.9 K/mm3 (4.5-10.0)
[2022-02-20 21:11] LABS: Alanine Aminotransferase 12 U/L (6-35); Albumin Level 3.4 g/dL (3.5-5.1); Alkaline Phosphatase 153 U/L (38-126); Anion Gap 4 mmol/L (8-16); Aspartate Amino Transferase 13 U/L (14-36); Bilirubin,Total 0.2 mg/dL (0.2-1.3); Blood Urea Nitrogen 15 mg/dL (7-17); Calcium 8.1 mg/dL (8.4-10.2); Carbon Dioxide 27 mmol/L (22-30); Chloride 110 mmol/L (98-107); Estimated CRCL calculation 41 ml/min; Estimated Glomerular Filt Rate 37; Glucose 121 mg/dL (65-110); Potassium 4.3 mmol/L (3.4-5.0); Sodium 141 mmol/L (137-145)
[2022-02-20 21:16] LABS: INR 1.2; Prothrombin Time 14.7 Seconds (11.1-14.7)
[2022-02-20 21:23] LABS: NT Pro B Type Natriuretic Pept 4440 pg/mL (5-100); Troponin I 0.015 ng/mL (0.000-0.034)
--- NOTE | 2022-02-20 21:45 | ED.SOB ---
HPI - SOB/Dyspnea General Chief Complaint: Shortness of Breath/Dyspnea Stated Complaint: SHORTNESS OF BREATH Time Seen by Provider: 02/20/22 19:52 Source: patient and family Mode of arrival: EMS Limitations: no limitations History of Present Illness HPI Narrative: This is a 71-year-old female with a past medical history of congestive heart failure with preserved ejection fraction, COPD on 2 L of oxygen at baseline, hypertension, Parkinson's, CKD, anxiety who presents with shortness of breath that began yesterday. She was recently admitted to the hospital and discharged yesterday evening. She was admitted for shortness of breath abdominal pain, and watery diarrhea. Diuretic was held while patient was in the hospital, and patient underwent colonoscopy yesterday. Patient coming in today with increased shortness of breath especially on exertion, diffuse lower and upper extremity edema, and increased oxygen requirements from baseline. Denies chest pain, headache, cough, and leg pain. MD elicited complaint: shortness of breath Pertinent past history: COPD and congestive heart failure Onset (ago): day(s) (2) Timing: constant Severity: moderate Exacerbating factors: exertion Relieving factors: oxygen and rest Known history of: COPD and congestive heart failure Associated symptoms: denies other symptoms Related Data Home Medications Medication Instructions Recorded Confirmed atorvastatin 80 mg tablet 80 mg PO QAM 12/10/19 02/15/22 carbidopa 25 mg-levodopa 100 mg 3 tablet PO TID 12/10/19 02/15/22 tablet fluoxetine 40 mg capsule 40 mg PO BID 12/10/19 02/15/22 oxcarbazepine 300 mg tablet 300 mg PO BID 12/10/19 02/15/22 alprazolam 1 mg tablet 1 mg PO QID 10/10/20 02/15/22 allopurinol 100 mg tablet 100 mg PO DAILY 12/12/21 02/15/22 doxepin 25 mg capsule 25 mg PO BID 12/12/21 02/15/22 empagliflozin 10 mg tablet 10 mg PO DAILY 12/12/21 02/15/22 (Jardiance) ipratropium 0.5 mg-albuterol 3 mg 3 ml inhalation Q6H 12/12/21 02/15/22 (2.5 mg base)/3 mL nebulization soln prazosin 5 mg capsule 5 mg PO HS 12/12/21 02/15/22 ropinirole 0.5 mg tablet 0.5 mg PO HS 12/12/21 02/15/22 primidone 50 mg tablet 50 mg PO BID 12/21/21 02/15/22 acetaminophen 650 mg tablet 650 mg PO Q6H PRN Pain 12/23/21 02/15/22 albuterol sulfate 90 mcg/actuation 2 puff inhalation QID PRN 12/23/21 02/15/22 aerosol inhaler Shortness Of Breath Or Wheezing quetiapine 25 mg tablet 25 mg PO HS 12/23/21 02/15/22 sodium bicarbonate 650 mg tablet 650 mg PO BID 12/23/21 02/15/22 topiramate 100 mg tablet 100 mg PO BID 12/23/21 02/15/22 gabapentin 100 mg PO TID 12/29/21 02/15/22 bumetanide 1 mg tablet 1 mg PO DAILY 02/15/22 02/15/22 fluvoxamine 100 mg tablet 100 mg PO DAILY 02/15/22 02/15/22 losartan 25 mg PO DAILY 02/15/22 02/15/22 Allergies Allergy/AdvReac Type Severity Reaction Status Date / Time iodine Allergy Severe Hives Verified 12/23/21 07:07 latex Allergy Severe Hives Verified 12/23/21 07:07 Contrast Media Allergy Mild Hives Uncoded 12/23/21 07:07 Review of Systems Review of Systems: All systems reviewed & are unremarkable except as noted in HPI and below Constitutional: Constitutional: Reports no additional constitutional complaints Eyes: Eyes: Reports no additional eye complaints ENT: Reports system reviewed and no additional complaints, except as documented Cardiovascular: Cardiovascular: Reports no additional cardiovascular complaints Gastrointestinal: Gastrointestinal: Reports as per HPI Musculoskeletal: Musculoskeletal: Reports no additional musculoskeletal complaints Integumentary/Breasts: Skin/Breast: Reports system reviewed and no additional complaints, except as docu Neurologic: Reports system reviewed and no additional complaints, except as documented PMFSH Past Medical History Medical History Acute hyperkalemia Anxiety BMI greater than 40 Chronic anemia Chronic kidney disease, stage 3 B
[2022-02-20 22:00] VITALS: BP 156/69; PULSE 85; RESP 14; O2SAT 100
--- NOTE | 2022-02-20 22:26 | PM.IMHP ---
H&P: HPI History of Present Illness Date/Time: 02/20/22 22:26 Chief Complaint: Shortness of breath Narrative: This is a 71-year-old female with past medical history significant for morbid obesity, chronic kidney disease, chronic obstructive pulmonary disease, heart failure with preserved ejection fraction, Parkinson's disease, restless leg syndrome, type 2 diabetes mellitus. Patient just recently discharged from [facility] treated for urinary tract infection, positive blood culture, [place] Staph epidermidis, 1 bottle out of 2, acute hypoxic respiratory failure requiring increase from her usual 2 L of oxygen by nasal cannula at home also noted to have acute on chronic renal failure. Patient was successfully discharged home however returns due to worsening shortness of breath. Patient was found to have a brain atretic peptide upwards 4000, chest x-ray was reported as: IMPRESSION: Stable mild interstitial edema. New small right pleural effusion. Review of Systems Review of Systems: Worsening shortness of breath, bilateral lower extremity edema. Constitutional: Constitutional: Denies chills, Denies fever(s), Denies malaise and Reports weakness Eyes: Eyes: Denies change in vision ENT: Denies dysphagia, Denies vertigo, Denies dizziness and Denies odynophagia Cardiovascular: Cardiovascular: Reports leg edema and Reports dyspnea on exertion Respiratory: Respiratory: Denies chest congestion and Denies pain on inspiration Gastrointestinal: Gastrointestinal: Denies abdominal pain, Denies dyspepsia, Denies heartburn, Denies diarrhea, Denies nausea and Denies vomiting Genitourinary: Genitourinary: Denies dysuria Musculoskeletal: Musculoskeletal: Reports joint swelling and Reports muscle weakness Integumentary/Breasts: Skin/Breast: Denies rash Neurologic: Denies focal weakness and Denies Sensory deficit (Neuro) Psychiatric: Psychiatric: Reports no additional psychiatric complaints and Reports as per HPI Endocrine: Endocrine: Denies cold intolerance, Denies flushing, Denies heat intolerance, Denies polyphagia, Denies polydipsia and Denies palpitations Hematologic/Lymphatic: Hematologic/Lymphatic: Reports no additional hematologic/lymphatic complaints and Reports as per HPI Allergic/Immunologic: Allergic/Immunologic: Reports no additional allergic/immunologic complaints and Reports as per HPI PMFSH Past Medical History Medical History Acute hyperkalemia Anxiety BMI greater than 40 Chronic anemia Chronic kidney disease, stage 3 Baseline creatinine ranges between 1.2 and 1.50. Chronic obstructive pulmonary disease Depression Gastroesophageal reflux disease GI bleed (01/2010) Secondary to peptic ulcer. Heart failure with preserved ejection fraction Hyperlipidemia Hypertension Hypothyroidism Junctional rhythm Kidney stones Neuropathy Obstructive sleep apnea Patient does not use PAP therapy at nighttime. Osteoarthritis Parkinson disease Restless leg syndrome Type 2 diabetes mellitus Surgical History Surgical History History of bilateral knee arthroplasty History of hysterectomy History of sinus surgery Family History Family History Grandparent Diabetes mellitus Acute myocardial infarction Father Acute myocardial infarction Mother Acute myocardial infarction Social History Social History Social History: Surrogate decision maker: Fly Rondon, . Code status: Full code. Smoking packs per day: 1 Smoking cigarettes per day: 20.0 Years smoked: 40 Smoking pack-years: 40.00 Smoking status: Heavy tobacco smoker Tobacco type: cigarettes Second hand tobacco smoke exposure: No Smoking end date: 02/04/17 Alcohol intake: never Substance use: never Substance use type:
[2022-02-20] MEDS: FUROSEMIDE INJ 40 MG/4 ML VIAL IV PUSH (22:37)
[2022-02-20 22:38] VITALS: BP 160/75; PULSE 71; PULSE 72; RESP 15; O2SAT 100
[2022-02-21] VITALS (19 sets, daily range): BP systolic 123–201; BP diastolic 44–73; PULSE 53–77; RESP 16–24; TEMP 36.3–36.7; O2SAT 91–100; BMI 51.1
[2022-02-21 00:23] LABS: Influenza A QL RT-PCR Negative (Negative); Influenza B QL RT-PCR Negative (Negative); RSV RNA, RT-PCR Negative (Negative); SARS-CoV-2 RNA PCR Negative
[2022-02-21] MEDS: ACETAMINOPHEN 325 MG TABLET 650 MG PO ×2 (01:05→21:28)
--- NOTE | 2022-02-21 01:41 | PC.NURSE ---
0020 Pt arrived to the floor Alert and Awake on 4L of O2 NC. Patient is oriented x 4. She reports mild headache rating it a 4/10. She denies any chest pain or palpitations. She is in bed with bed alarm and call light is within reach. Side rails up x 2.
[2022-02-21 02:11] LABS: Troponin I 0.021 ng/mL (0.000-0.034)
[2022-02-21 05:35] LABS: Basophils Absolute Auto 0.1 K/mm3 (0.0-0.1); Basophils Percent Auto 0.4 % (0.2-1.2); Eosinophils Absolute Auto 0.7 K/mm3 (0-0.3); Eosinophils Percent Auto 5.9 % (0-4.4); Hematocrit 24.9 % (37.0-47.0); Hemoglobin 7.5 g/dL (12.0-15.0); Immature Granulocyte Absolute 0.13 K/mm3 (0.00-0.031); Lymphocytes Absolute Auto 1.05 K/mm3 (0.9-3.2); Lymphocytes Percent Auto 8.4 % (18.3-44.2); Mean Corpuscular HGB Conc 30.1 g/dl (32-36); Mean Corpuscular Hemoglobin 30.4 pg (26-34); Mean Corpuscular Volume 100.8 fl (80-100); Mean Platelet Volume 11.2 fl (7.4-10.4); Monocytes Absolute Auto 1.1 K/mm3 (0.1-0.6); Monocytes Percent Auto 8.5 % (2.6-8.5); Neutrophils Absolute Auto 9.5 K/mm3 (1.3-6.7); Neutrophils Percent Auto 75.8 % (45.5-73.1); Platelet Count Result 208 k/mm3 (150-375); Red Blood Count 2.47 M/mm3 (4.2-5.4); Red Cell Distribution Width 14.8 % (11.5-14.5); White Blood Count 12.5 K/mm3 (4.5-10.0)
[2022-02-21 05:45] LABS: Anion Gap 3 mmol/L (8-16); Blood Urea Nitrogen 16 mg/dL (7-17); Calcium 8.3 mg/dL (8.4-10.2); Carbon Dioxide 30 mmol/L (22-30); Chloride 105 mmol/L (98-107); Estimated CRCL calculation 46 ml/min; Estimated Glomerular Filt Rate 40; Glucose 106 mg/dL (65-110); Potassium 3.9 mmol/L (3.4-5.0); Sodium 138 mmol/L (137-145)
[2022-02-21 05:55] LABS: Troponin I 0.025 ng/mL (0.000-0.034)
[2022-02-21] MEDS: ALPRAZolam (*CRX) 0.5 MG TABLET 1 MG PO ×4 (08:19→20:44)
[2022-02-21] MEDS: FUROSEMIDE INJ 40 MG/4 ML VIAL IV PUSH ×2 (08:20→20:31)
[2022-02-21] MEDS: DOXEPIN HCL 25 MG CAPSULE PO ×2 (08:20→17:48)
[2022-02-21] MEDS: APIXABAN 5 MG TABLET PO ×2 (08:20→20:34)
[2022-02-21] MEDS: GABAPENTIN 100 MG CAPSULE PO ×3 (08:21→17:49)
[2022-02-21] MEDS: OXcarbazepine 300 MG TABLET PO ×2 (08:21→17:48)
[2022-02-21] MEDS: LOSARTAN POTASSIUM 25 MG TABLET PO (08:21)
[2022-02-21] MEDS: hydrALAZINE HCL 25 MG TABLET PO ×3 (08:21→17:48)
[2022-02-21] MEDS: CARBIDOPA/LEVODOPA 25/100 MG TABLET 3 TABLET PO ×3 (08:21→17:48)
[2022-02-21] MEDS: BUMETANIDE 1 MG TABLET PO (08:21)
[2022-02-21] MEDS: FLUoxetine HCL 20 MG CAPSULE 40 MG PO ×2 (08:22→17:48)
[2022-02-21] MEDS: TOPIRAMATE 100 MG TABLET PO ×2 (08:22→20:35)
[2022-02-21] MEDS: SODIUM BICARBONATE TAB 650 MG TABLET PO ×2 (08:22→17:49)
[2022-02-21] MEDS: allopurinoL 100 MG TABLET PO (08:22)
[2022-02-21] MEDS: ATORVASTATIN 40 MG TABLET 80 MG PO (08:22)
[2022-02-21] MEDS: PRIMIDONE 50 MG TABLET PO ×2 (08:22→17:49)
--- NOTE | 2022-02-21 11:11 | PM.IMPN ---
Progress Note: A&P Assessment and Plan (1) Congestive heart failure: Qualifiers: Heart failure chronicity: acute on chronic Heart failure type: unspecified Qualified Code(s): I50.9 - Heart failure, unspecified Code(s): I50.9 - Heart failure, unspecified Status: Acute Assessment and Plan: Admit to regular medical floor with telemetry Gentle diuresis Daily intake and output (2) Chronic respiratory failure: Code(s): J96.10 - Chronic respiratory failure, unspecified whether with hypoxia or hypercapnia Status: Acute Assessment and Plan: On 2 L by nasal cannula of supplemental oxygen (3) Obstructive sleep apnea: Code(s): G47.33 - Obstructive sleep apnea (adult) (pediatric) Status: Chronic Assessment and Plan: Patient does not wear BiPAP at nighttime (4) Restless leg syndrome: Code(s): G25.81 - Restless legs syndrome Status: Acute Assessment and Plan: Continue home meds (5) Generalized weakness: Code(s): R53.1 - Weakness Status: Acute Assessment and Plan: Likely secondary to deconditioning (6) Type 2 diabetes mellitus: Qualifiers: 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 exterminator insulin use: with [facility] use Diabetes mellitus complication status: without complication Qualified Code(s): E11.9 - Type 2 diabetes mellitus without complications; Z79.4 - [facility] (current) use of insulin Code(s): E11.9 - Type 2 diabetes mellitus without complications Status: Acute Assessment and Plan: Insulin sliding scale as needed (7) Parkinson disease: Code(s): G20 - Parkinson's disease Status: Acute Assessment and Plan: Continue home meds (8) Hypertension: Qualifiers: Hypertension type: primary hypertension Qualified Code(s): I10 - Essential (primary) hypertension Code(s): I10 - Essential (primary) hypertension Status: Chronic Assessment and Plan: Continue home meds Continue to monitor (9) Morbid obesity with BMI of 50.0-59.9, adult: Code(s): E66.01 - Morbid (severe) obesity due to excess calories; Z68.43 - Body mass index [BMI] 50.0-59.9, adult Status: Acute Assessment and Plan: Lifestyle and diet modifications Subjective Date/time seen: 02/21/22 11:11 Breathing better. Exam Narrative: Patient is laying in a stretcher Const: General: comfortable, no acute distress, well developed, alert, awake, ill appearing chronically and obese Nutritional Appearance: obese morbidly obese Orientation/consciousness: patient oriented x3 HENMT: Head: normal to inspection, normocephalic and atraumatic Ears: hearing grossly normal bilaterally Face/Nose/Sinus: normal facial exam Face and sinus: normal facial exam Eyes: General: appearance normal, both eyes and all related structures Pupils: Equal, round and reactive pupils present EOM: EOMs intact bilaterally Neck: Neck: full ROM, no lymphadenopathy and no JVD Thyroid: thyroid normal Lymphatic: no lymphadenopathy noted Resp: Effort & Inspection: normal respiratory effort and able to speak in complete sentences Auscultation: clear to auscultation bilaterally Cardio: Jugular venous distension: no JVD Rate: regular rate Rhythm: regular rhythm Heart sounds: S1 normal heart sound present and S2 normal heart sound present GI: Inspection: Pannus present and obesity : General: Yes deferred Skin: Rashes: no rashes Wounds: no wounds Neuro: General: patient oriented x3 and CN's II-XI intact bilaterally Cranial nerves: Yes CN's II-XII intact bilaterally and Yes Equal, round and reactive pupils present Cognition (Neuro): normal cognition Speech: normal speech Gait exam (Neuro): Normal gait present Motor exam (neuro): 5/5 motor strength present throughout Sensory Exam: No Sensory deficit (Neuro) Extrem: General: normal to inspection, full ROM, edema bilateral and pedal edema Objective Data Vit
[2022-02-21] MEDS: ALBUTEROL SULFATE NEB 2.5 MG/3 ML INH INHALATION ×2 (14:23→21:24)
[2022-02-21] MEDS: IPRATROPIUM BR 0.02% INH SOLN 0.5 MG/2.5 ML VIAL INHALATION ×2 (14:23→21:24)
[2022-02-21] MEDS: rOPINIRole HCL 0.5 MG TABLET PO (20:34)
[2022-02-21] MEDS: QUEtiapine FUMARATE 25 MG TABLET PO (20:34)
[2022-02-21] MEDS: PRAZOSIN HCL 5 MG CAPSULE PO (20:35)
[2022-02-21 21:12] LABS: Glucose Point of Care 122 mg/dl (65-105)
[2022-02-22] VITALS (19 sets, daily range): BP systolic 120–170; BP diastolic 46–77; PULSE 50–69; RESP 18–22; TEMP 36.2–37.1; O2SAT 95–100
[2022-02-22] MEDS: IPRATROPIUM BR 0.02% INH SOLN 0.5 MG/2.5 ML VIAL INHALATION ×4 (03:40→19:59)
[2022-02-22] MEDS: ALBUTEROL SULFATE NEB 2.5 MG/3 ML INH INHALATION ×4 (03:40→19:59)
[2022-02-22] MEDS: CARBIDOPA/LEVODOPA 25/100 MG TABLET 3 TABLET PO ×3 (08:17→16:59)
[2022-02-22] MEDS: allopurinoL 100 MG TABLET PO (08:17)
[2022-02-22] MEDS: ALPRAZolam (*CRX) 0.5 MG TABLET 1 MG PO ×4 (08:18→20:22)
[2022-02-22] MEDS: hydrALAZINE HCL 25 MG TABLET PO ×3 (08:18→17:01)
[2022-02-22] MEDS: APIXABAN 5 MG TABLET PO ×2 (08:19→21:00)
[2022-02-22] MEDS: ATORVASTATIN 40 MG TABLET 80 MG PO (08:19)
[2022-02-22] MEDS: BUMETANIDE 1 MG TABLET PO (08:19)
[2022-02-22] MEDS: FLUoxetine HCL 20 MG CAPSULE 40 MG PO ×2 (08:19→17:00)
[2022-02-22] MEDS: DOXEPIN HCL 25 MG CAPSULE PO ×2 (08:19→17:00)
[2022-02-22] MEDS: PRIMIDONE 50 MG TABLET PO ×2 (08:20→17:01)
[2022-02-22] MEDS: FUROSEMIDE INJ 40 MG/4 ML VIAL IV PUSH ×3 (08:20→20:23)
[2022-02-22] MEDS: LOSARTAN POTASSIUM 25 MG TABLET PO (08:20)
[2022-02-22] MEDS: GABAPENTIN 100 MG CAPSULE PO ×3 (08:20→17:00)
[2022-02-22] MEDS: OXcarbazepine 300 MG TABLET PO ×2 (08:20→17:01)
[2022-02-22] MEDS: SODIUM BICARBONATE TAB 650 MG TABLET PO ×2 (08:21→17:01)
--- NOTE | 2022-02-22 12:42 | PM.IMPN ---
Progress Note: A&P Assessment and Plan (1) Congestive heart failure: Qualifiers: Heart failure chronicity: acute on chronic Heart failure type: unspecified Qualified Code(s): I50.9 - Heart failure, unspecified Code(s): I50.9 - Heart failure, unspecified Status: Acute Assessment and Plan: Admit to regular medical floor with telemetry Gentle diuresis Daily intake and output (2) Chronic respiratory failure: Code(s): J96.10 - Chronic respiratory failure, unspecified whether with hypoxia or hypercapnia Status: Acute Assessment and Plan: On 2 L by nasal cannula of supplemental oxygen (3) Obstructive sleep apnea: Code(s): G47.33 - Obstructive sleep apnea (adult) (pediatric) Status: Chronic Assessment and Plan: Patient does not wear BiPAP at nighttime (4) Restless leg syndrome: Code(s): G25.81 - Restless legs syndrome Status: Acute Assessment and Plan: Continue home meds (5) Generalized weakness: Code(s): R53.1 - Weakness Status: Acute Assessment and Plan: Likely secondary to deconditioning (6) Type 2 diabetes mellitus: Qualifiers: Diabetes mellitus music promoter insulin use: with long-term use Diabetes mellitus complication status: without complication Qualified Code(s): E11.9 - Type 2 diabetes mellitus without complications; Z79.4 - care home (current) use of insulin Code(s): E11.9 - Type 2 diabetes mellitus without complications Status: Acute Assessment and Plan: Insulin sliding scale as needed (7) Parkinson disease: Code(s): G20 - Parkinson's disease Status: Acute Assessment and Plan: Continue home meds (8) Hypertension: Qualifiers: Hypertension type: primary hypertension Qualified Code(s): I10 - Essential (primary) hypertension Code(s): I10 - Essential (primary) hypertension Status: Chronic Assessment and Plan: Continue home meds Continue to monitor (9) Morbid obesity with BMI of 50.0-59.9, adult: Code(s): E66.01 - Morbid (severe) obesity due to excess calories; Z68.43 - Body mass index [BMI] 50.0-59.9, adult Status: Acute Assessment and Plan: Lifestyle and diet modifications Subjective Date/time seen: 02/22/22 12:42 No new complaints. Shortness of breath is improved. Exam Narrative: Patient is laying in a stretcher Const: General: comfortable, no acute distress, well developed, alert, awake, ill appearing chronically and obese Nutritional Appearance: obese morbidly obese Orientation/consciousness: patient oriented x3 HENMT: Head: normal to inspection, normocephalic and atraumatic Ears: hearing grossly normal bilaterally Face/Nose/Sinus: normal facial exam Face and sinus: normal facial exam Eyes: General: appearance normal, both eyes and all related structures Pupils: Equal, round and reactive pupils present EOM: EOMs intact bilaterally Neck: Neck: full ROM, no lymphadenopathy and no JVD Thyroid: thyroid normal Lymphatic: no lymphadenopathy noted Resp: Effort & Inspection: normal respiratory effort and able to speak in complete sentences Auscultation: clear to auscultation bilaterally Cardio: Jugular venous distension: no JVD Rate: regular rate Rhythm: regular rhythm Heart sounds: S1 normal heart sound present and S2 normal heart sound present GI: Inspection: Pannus present and obesity : General: Yes deferred Skin: Rashes: no rashes Wounds: no wounds Neuro: General: patient oriented x3 and CN's II-XI intact bilaterally Cranial nerves: Yes CN's II-XII intact bilaterally and Yes Equal, round and reactive pupils present Cognition (Neuro): normal cognition Speech: normal speech Gait exam (Neuro): Normal gait present Motor exam (neuro): 5/5 motor strength present throughout Sensory Exam: No Sensory deficit (Neuro) Extrem: General: normal to inspection, full ROM, edema bilateral and
[2022-02-22] MEDS: ACETAMINOPHEN 325 MG TABLET 650 MG PO (17:02)
[2022-02-22] MEDS: TOPIRAMATE 100 MG TABLET PO (20:23)
[2022-02-22] MEDS: rOPINIRole HCL 0.5 MG TABLET PO (20:24)
[2022-02-22] MEDS: PRAZOSIN HCL 5 MG CAPSULE PO (20:24)
[2022-02-22] MEDS: QUEtiapine FUMARATE 25 MG TABLET PO (20:25)
[2022-02-23] VITALS (16 sets, daily range): BP systolic 104–163; BP diastolic 46–66; PULSE 54–82; RESP 16–20; TEMP 36.5–37.3; O2SAT 94–100
[2022-02-23 01:39] LABS: Glucose Point of Care 103 mg/dl (65-105)
[2022-02-23] MEDS: IPRATROPIUM BR 0.02% INH SOLN 0.5 MG/2.5 ML VIAL INHALATION ×3 (01:45→20:11)
[2022-02-23] MEDS: ALBUTEROL SULFATE NEB 2.5 MG/3 ML INH INHALATION ×3 (01:45→20:11)
[2022-02-23 08:36] LABS: Chloride 96 mmol/L (98-107)
[2022-02-23 08:39] LABS: Anion Gap 5 mmol/L (8-16); Blood Urea Nitrogen 22 mg/dL (7-17); Calcium 8.4 mg/dL (8.4-10.2); Carbon Dioxide 32 mmol/L (22-30); Estimated CRCL calculation 38 ml/min; Estimated Glomerular Filt Rate 32; Glucose 100 mg/dL (65-110); Potassium 3.8 mmol/L (3.4-5.0); Sodium 133 mmol/L (137-145)
[2022-02-23] MEDS: allopurinoL 100 MG TABLET PO (09:14)
[2022-02-23] MEDS: CARBIDOPA/LEVODOPA 25/100 MG TABLET 3 TABLET PO ×3 (09:15→17:21)
[2022-02-23] MEDS: ALPRAZolam (*CRX) 0.5 MG TABLET 1 MG PO ×3 (09:15→17:20)
[2022-02-23] MEDS: hydrALAZINE HCL 25 MG TABLET PO ×3 (09:15→17:23)
[2022-02-23] MEDS: APIXABAN 5 MG TABLET PO ×2 (09:16→21:11)
[2022-02-23] MEDS: BUMETANIDE 1 MG TABLET PO (09:16)
[2022-02-23] MEDS: DOXEPIN HCL 25 MG CAPSULE PO ×2 (09:16→17:22)
[2022-02-23] MEDS: ATORVASTATIN 40 MG TABLET 80 MG PO (09:16)
[2022-02-23] MEDS: LOSARTAN POTASSIUM 25 MG TABLET PO (09:17)
[2022-02-23] MEDS: GABAPENTIN 100 MG CAPSULE PO ×3 (09:17→17:22)
[2022-02-23] MEDS: OXcarbazepine 300 MG TABLET PO ×2 (09:17→17:23)
[2022-02-23] MEDS: FUROSEMIDE INJ 40 MG/4 ML VIAL IV PUSH ×2 (09:17→21:12)
[2022-02-23] MEDS: FLUoxetine HCL 20 MG CAPSULE 40 MG PO ×2 (09:17→17:22)
[2022-02-23] MEDS: PRIMIDONE 50 MG TABLET PO ×2 (09:18→17:23)
[2022-02-23] MEDS: SODIUM BICARBONATE TAB 650 MG TABLET PO ×2 (09:18→17:23)
--- NOTE | 2022-02-23 14:44 | PHAR ---
HOME MED: FLUVOXAMINE 100 MG; TAKE 1 TABLET BY MOUTH EVERY DAY. VERIFIED BY PHARMACY.
--- NOTE | 2022-02-23 15:56 | PHAR ---
PT'S HOME MED FLUVOXAMINE 100 MG TABS VERIFIED BY PHARMACY
[2022-02-23] MEDS: QUEtiapine FUMARATE 25 MG TABLET PO (21:12)
[2022-02-23] MEDS: TOPIRAMATE 100 MG TABLET PO (21:12)
[2022-02-23] MEDS: PRAZOSIN HCL 5 MG CAPSULE PO (21:13)
[2022-02-23] MEDS: rOPINIRole HCL 0.5 MG TABLET PO (21:13)
[2022-02-24] VITALS (8 sets, daily range): BP systolic 114–138; BP diastolic 45–53; PULSE 63–86; RESP 16–18; TEMP 36.6–36.9; O2SAT 94–100
[2022-02-24] MEDS: ALBUTEROL SULFATE NEB 2.5 MG/3 ML INH INHALATION ×2 (01:39→09:10)
[2022-02-24] MEDS: IPRATROPIUM BR 0.02% INH SOLN 0.5 MG/2.5 ML VIAL INHALATION ×2 (01:40→09:10)
[2022-02-24] MEDS: FUROSEMIDE INJ 40 MG/4 ML VIAL IV PUSH (08:41)
[2022-02-24] MEDS: ATORVASTATIN 40 MG TABLET 80 MG PO (08:41)
[2022-02-24] MEDS: CARBIDOPA/LEVODOPA 25/100 MG TABLET 3 TABLET PO ×2 (08:41→12:16)
[2022-02-24] MEDS: GABAPENTIN 100 MG CAPSULE PO ×2 (08:42→12:16)
[2022-02-24] MEDS: OXcarbazepine 300 MG TABLET PO (08:42)
[2022-02-24] MEDS: FLUoxetine HCL 20 MG CAPSULE 40 MG PO (08:42)
[2022-02-24] MEDS: hydrALAZINE HCL 25 MG TABLET PO ×2 (08:42→12:16)
[2022-02-24] MEDS: ALPRAZolam (*CRX) 0.5 MG TABLET 1 MG PO ×2 (08:43→12:15)
[2022-02-24] MEDS: allopurinoL 100 MG TABLET PO (08:43)
[2022-02-24] MEDS: LOSARTAN POTASSIUM 25 MG TABLET PO (08:43)
[2022-02-24] MEDS: PRIMIDONE 50 MG TABLET PO (08:43)
[2022-02-24] MEDS: SODIUM BICARBONATE TAB 650 MG TABLET PO (08:43)
[2022-02-24] MEDS: BUMETANIDE 1 MG TABLET PO (08:43)
[2022-02-24] MEDS: APIXABAN 5 MG TABLET PO (08:43)
[2022-02-24] MEDS: DOXEPIN HCL 25 MG CAPSULE PO (09:43)
--- NOTE | 2022-02-24 10:44 | PCOTNOTE ---
Attempted to see Pt for Occupational Therapy treatment. Pt declined to participate in any self care tasks and/or therapeutic activities stating fatigue. Pt reports she just finished with physical therapy and respiratory therapy and would like to rest before d/c home today. Will continue per poc duration/frequency tomorrow.
--- NOTE | 2022-02-24 13:26 | PM.DS ---
DS: Admitting Diagnosis Discharge Date February 24, 2022 Admitting Diagnosis CHF DS: Discharge Diagnosis Discharge Diagnosis (1) Congestive heart failure: Qualifiers: Heart failure chronicity: acute on chronic Heart failure type: unspecified Qualified Code(s): I50.9 - Heart failure, unspecified Code(s): I50.9 - Heart failure, unspecified Status: Acute Assessment and Plan: Admit to regular medical floor with telemetry Gentle diuresis Daily intake and output (2) Chronic respiratory failure: Code(s): J96.10 - Chronic respiratory failure, unspecified whether with hypoxia or hypercapnia Status: Acute Assessment and Plan: On 2 L by nasal cannula of supplemental oxygen (3) Obstructive sleep apnea: Code(s): G47.33 - Obstructive sleep apnea (adult) (pediatric) Status: Chronic Assessment and Plan: Patient does not wear BiPAP at nighttime (4) Restless leg syndrome: Code(s): G25.81 - Restless legs syndrome Status: Acute Assessment and Plan: Continue home meds (5) Generalized weakness: Code(s): R53.1 - Weakness Status: Acute Assessment and Plan: Likely secondary to deconditioning (6) Type 2 diabetes mellitus: Qualifiers: 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 use: with semiconductor wafers saw operator use Diabetes mellitus complication status: without complication Qualified Code(s): E11.9 - Type 2 diabetes mellitus without complications; Z79.4 - [facility] (current) use of insulin Code(s): E11.9 - Type 2 diabetes mellitus without complications Status: Acute Assessment and Plan: Insulin sliding scale as needed (7) Parkinson disease: Code(s): G20 - Parkinson's disease Status: Acute Assessment and Plan: Continue home meds (8) Hypertension: Qualifiers: Hypertension type: primary hypertension Qualified Code(s): I10 - Essential (primary) hypertension Code(s): I10 - Essential (primary) hypertension Status: Chronic Assessment and Plan: Continue home meds Continue to monitor (9) Morbid obesity with BMI of 50.0-59.9, adult: Code(s): E66.01 - Morbid (severe) obesity due to excess calories; Z68.43 - Body mass index [BMI] 50.0-59.9, adult Status: Acute Assessment and Plan: Lifestyle and diet modifications DS: Summary Hospital Course Hospital Course: Patient is 71-year-old female who came in with shortness of breath found have exacerbation of diastolic CHF. She was given IV diuretic therapy. At 1 point she did require 3L of oxygen she is now in her home setting. She is able to ambulate and do her normal activities. Will resume her home dose of diuretics. Monitor creatinine and other electrolytes on discharge. This can be monitored by her primary care physician. Time Spent with Patient Time attestation: Total time spent providing and/or coordinating discharge services: Exam Narrative: Patient is laying in a stretcher Const: General: comfortable, no acute distress, well developed, alert, awake, ill appearing chronically and obese Nutritional Appearance: obese morbidly obese Orientation/consciousness: patient oriented x3 HENMT: Head: normal to inspection, normocephalic and atraumatic Ears: hearing grossly normal bilaterally Face/Nose/Sinus: normal facial exam Face and sinus: normal facial exam Eyes: General: appearance normal, both eyes and all related structures Pupils: Equal, round and reactive pupils present EOM: EOMs intact bilaterally Neck: Neck: full ROM, no lymphadenopathy and no JVD Thyroid: thyroid normal Lymphatic: no lymphadenopathy noted Resp: Effort & Inspection: normal respiratory effort and able to speak in complete sentences Auscultation: clear to auscultation bilaterally Cardio: Jugular venous distension: no JVD Rate: regular rate Rhythm: regular rhythm Heart sounds: S1 normal heart sound present and S2 normal heart
== END 2022-02-24 14:43 | disposition home or self-care (01) | DRG 291 ==
LOC: ANHED 23:09 → ANH2MED 23:22
PROVIDERS: Admitting Provider Internal Medicine; Emergency Provider Family Medicine; Visit Provider Chiropractor
DX: I13.0 Hypertensive heart and chronic kidney disease with heart failure and stage 1 through stage 4 chronic kidney disease, or unspecified chronic kidney disease (principal); I50.33 Acute on chronic diastolic (congestive) heart failure; Z68.43 Body mass index [BMI] 50.0-59.9, adult; J96.10 Chronic respiratory failure, unspecified whether with hypoxia or hypercapnia; N18.30 Chronic kidney disease, stage 3 unspecified; E11.22 Type 2 diabetes mellitus with diabetic chronic kidney disease; E66.01 Morbid (severe) obesity due to excess calories; E78.5 Hyperlipidemia, unspecified; E03.9 Hypothyroidism, unspecified; E11.42 Type 2 diabetes mellitus with diabetic polyneuropathy; F41.9 Anxiety disorder, unspecified; F32.A Depression, unspecified; G20 Parkinson's disease; G47.33 Obstructive sleep apnea (adult) (pediatric); G25.81 Restless legs syndrome; J44.9 Chronic obstructive pulmonary disease, unspecified; K21.9 Gastro-esophageal reflux disease without esophagitis; M19.90 Unspecified osteoarthritis, unspecified site; R53.1 Weakness; Z90.710 Acquired absence of both cervix and uterus; Z99.81 Dependence on supplemental oxygen; Z20.822 Contact with and (suspected) exposure to COVID-19; Z96.653 Presence of artificial knee joint, bilateral; Z87.891 Personal history of nicotine dependence; Z79.4 Long term (current) use of insulin
CPT/HCPCS: 36415; 36600; 71045; 80048; 80053; 82805; 82948; 83880; 84484; 85025; 85610; 87637; 93005; 94640; 96374; 97110; 97116; 97161; 97165; 97530; 97535; 99285; A9270; J1940

== ENCOUNTER 2022-05-06 12:39 | Emergency (ER) | payer MEDICARE, BC, SELFPAY ==
[2022-05-06] VITALS (31 sets, daily range): BP systolic 106–167; BP diastolic 42–76; PULSE 78–90; RESP 11–24; TEMP 36.5; O2SAT 96–100
--- NOTE | ~2022-05-06 | CT_ITS ---
EXAMINATION: CT chest abdomen pelvis wo con DATE: 05/06/2022 17:22 INDICATION: Right rib pain in right upper quadrant abdominal pain after fall 3 days ago TECHNIQUE: Computed tomography (CT) of the chest was performed without intravenous contrast. Automate d exposure control and iterative reconstruction technique were employed. Exam dose: 1889.81 mGy-cm t otal exam DLP. COMPARISON: None FINDINGS: There is patchy infiltrate in the posterior right upper lobe. Left upper lobe calcified pulmonary granuloma. There is minimal dependent atelectasis in the lower lobes. There is cardiomegaly. No pericardial or pleural effusion. No hilar or mediastinal mass lesion or lymphoadenopathy. There is aortic, great vessel and coronary artery atherosclerosis. Approximately 2.5 mm nonobstructing right renal calculus. Approximately 1 cm probable left renal cyst . The The liver, gallbladder, bile ducts, pancreas, pancreatic duct, adrenal glands and kidneys are otherwi se unremarkable. No ureteral calculus or hydroureteronephrosis. The urinary bladder is unremarkable. Status post hyste rectomy. There is calcification of the abdominal aorta and at the origins of the superior mesenteric and joselito c and renal arteries, inferior mesenteric artery. No abdominal aortic aneurysm. No intraperitoneal or retroperitoneal or pelvic mass lesion or adenopathy or ascites. There is a prominent amount fecal material in the rectum and colon. There is no bowel obstruction or intraperitoneal free air. Small fat-containing periumbilical hernia. Subtle nondisplaced anterior right ninth rib fracture is No suspicious osteolytic or osteoblastic lesions IMPRESSION: Patchy infiltrate in the posterior right upper lobe Subtle virtually nondisplaced anterior right ninth rib fracture 2.5 mm nonobstructing right renal calculus Cardiomegaly Reviewed, dictated and finalized at [facility]. Reviewed, dictated and finalized at location [facility].
--- NOTE | ~2022-05-06 | XR_ITS ---
EXAMINATION: XR chest 1V INDICATION: Right-sided chest pain TECHNIQUE: AP view of the chest is obtained. COMPARISON: 02/20/2022 FINDINGS: There is a mild diffuse interstitial pattern. No pleural effusion or pneumothorax. The card iomediastinal silhouette is normal. IMPRESSION: 1. Mild interstitial pattern, likely mild pulmonary edema. Reviewed, dictated and finalized at location [facility].
--- NOTE | 2022-05-06 15:50 | ED.FALL ---
HPI - Fall General Chief Complaint: Fall Stated Complaint: fall Time Seen by Provider: 05/06/22 14:54 History of Present Illness HPI Narrative: This is a 71-year-old female with past history of diabetes, A-fib and CHF on 2 L O2 at home, who presents to the emergency department complaining of right upper quadrant abdominal pain versus right-sided rib pain after fall 3 days ago. The patient states in the past week she has had at least 2 falls, the last one occurring 3 days ago when she struck an end table on the right side. She complains of worsening sharp right-sided pain, now rated 8-9/10 and constant with radiation towards the midline abdomen. She denies chest pain, new or worsening shortness of breath, weakness/numbness. Related Data Home Medications Medication Instructions Recorded Confirmed atorvastatin 80 mg tablet 80 mg PO QAM 12/10/19 02/21/22 carbidopa 25 mg-levodopa 100 mg 3 tablet PO TID 12/10/19 02/21/22 tablet fluoxetine 40 mg capsule 40 mg PO BID 12/10/19 02/21/22 oxcarbazepine 300 mg tablet 300 mg PO BID 12/10/19 02/21/22 alprazolam 1 mg tablet 1 mg PO QID 10/10/20 02/21/22 allopurinol 100 mg tablet 100 mg PO DAILY 12/12/21 02/21/22 doxepin 25 mg capsule 25 mg PO BID 12/12/21 02/21/22 empagliflozin 10 mg tablet 10 mg PO DAILY 12/12/21 02/21/22 (Jardiance) ipratropium 0.5 mg-albuterol 3 mg 3 ml inhalation Q6H 12/12/21 02/21/22 (2.5 mg base)/3 mL nebulization soln prazosin 5 mg capsule 5 mg PO HS 12/12/21 02/21/22 ropinirole 0.5 mg tablet 0.5 mg PO HS 12/12/21 02/21/22 primidone 50 mg tablet 50 mg PO BID 12/21/21 02/21/22 acetaminophen 650 mg tablet 650 mg PO Q6H PRN Pain (Scale 12/23/21 02/21/22 Score 1-3) albuterol sulfate 90 mcg/actuation 2 puff inhalation QID PRN 12/23/21 02/21/22 aerosol inhaler Shortness Of Breath Or Wheezing quetiapine 25 mg tablet 25 mg PO HS 12/23/21 02/21/22 sodium bicarbonate 650 mg tablet 650 mg PO BID 12/23/21 02/21/22 topiramate 100 mg tablet 100 mg PO BID 12/23/21 02/21/22 gabapentin 100 mg PO TID 12/29/21 02/21/22 bumetanide 1 mg tablet 1 mg PO DAILY 02/15/22 02/21/22 fluvoxamine 100 mg tablet 100 mg PO DAILY 02/15/22 02/21/22 losartan 25 mg PO DAILY 02/15/22 02/21/22 Allergies Allergy/AdvReac Type Severity Reaction Status Date / Time iodine Allergy Severe Hives Verified 05/06/22 12:41 latex Allergy Severe Hives Verified 05/06/22 12:41 Contrast Media Allergy Mild Hives Uncoded 05/06/22 12:41 Review of Systems Review of Systems: CONSTITUTIONAL: Denies fever, chills, or sweats. CARDIOVASCULAR: Denies chest pain, palpitations, or edema. RESPIRATORY: Chronic dyspnea on exertion 2 L supplemental O2 at home denies cough. GASTROINTESTINAL: Right-sided upper abdominal pain denies nausea, vomiting, or diarrhea. GENITOURINARY: Denies dysuria or hematuria. SKIN: Denies rash or itching. MUSCULOSKELETAL: Denies back pain, joint pain, or myalgia. NEUROLOGIC: Denies headache, numbness, dizziness, or weakness. PSYCHIATRIC: Denies anxiety or depression. [facility] Past Medical History Medical History Acute hyperkalemia Anxiety BMI greater than 40 Chronic anemia Chronic kidney disease, stage 3 Baseline creatinine ranges between 1.2 and 1.50. Chronic obstructive pulmonary disease Depression Gastroesophageal reflux disease GI bleed (01/2010) Secondary to peptic ulcer. Heart failure with preserved ejection fraction Hyperlipidemia Hypertension Hypothyroidism Junctional rhythm Kidney stones Neuropathy Obstructive sleep apnea Patient does not use PAP therapy at nighttime. Osteoarthritis Parkinson disease Restless leg syndrome Type 2 diabetes mellitus Surgical History Surgical History History of bilateral knee arthroplasty History of hysterectomy History of sinus surgery Family History Family History Grand
[2022-05-06 16:18] LABS: Basophils Absolute Auto 0.1 K/mm3 (0.0-0.1); Eosinophils Absolute Auto 0.9 K/mm3 (0-0.3); Eosinophils Percent Auto 9.5 % (0-4.4); Hematocrit 29.5 % (37.0-47.0); Immature Granulocyte Absolute 0.04 K/mm3 (0.00-0.031); Immature Granulocyte Percent A 0.4 % (0-0.5); Mean Corpuscular HGB Conc 30.5 g/dl (32-36); Mean Corpuscular Hemoglobin 30.3 pg (26-34); Mean Corpuscular Volume 99.3 fl (80-100); Mean Platelet Volume 11.5 fl (7.4-10.4); Monocytes Absolute Auto 0.9 K/mm3 (0.1-0.6); Monocytes Percent Auto 9.8 % (2.6-8.5); Neutrophils Absolute Auto 6.2 K/mm3 (1.3-6.7); Neutrophils Percent Auto 69.3 % (45.5-73.1); Platelet Count Result 301 k/mm3 (150-375); Red Blood Count 2.97 M/mm3 (4.2-5.4); Red Cell Distribution Width 16.9 % (11.5-14.5)
[2022-05-06 16:31] LABS: Alanine Aminotransferase 9 U/L (6-35); Albumin Level 4.4 g/dL (3.5-5.1); Alkaline Phosphatase 161 U/L (38-126); Anion Gap 8 mmol/L (8-16); Aspartate Amino Transferase 16 U/L (14-36); Bilirubin,Total 0.5 mg/dL (0.2-1.3); Blood Urea Nitrogen 49 mg/dL (7-17); Calcium 8.7 mg/dL (8.4-10.2); Carbon Dioxide 23 mmol/L (22-30); Chloride 103 mmol/L (98-107); Estimated Glomerular Filt Rate 30; Glucose 96 mg/dL (65-110); Potassium 4.9 mmol/L (3.4-5.0); Sodium 134 mmol/L (137-145)
[2022-05-06] MEDS: HYDROmorphone HCL INJ (*CRX) 1 MG/ML SYR IV PUSH (17:31)
[2022-05-06] MEDS: LIDOCAINE 5% PATCH 1 PATCH TRANSDERM (19:10)
== END 2022-05-06 19:12 | disposition home or self-care (01) ==
PROVIDERS: Emergency Provider Preventive Medicine Aerospace Medicine
DX: S22.31XA Fracture of one rib, right side, initial encounter for closed fracture (principal); R10.11 Right upper quadrant pain; G20 Parkinson's disease; E11.22 Type 2 diabetes mellitus with diabetic chronic kidney disease; I13.0 Hypertensive heart and chronic kidney disease with heart failure and stage 1 through stage 4 chronic kidney disease, or unspecified chronic kidney disease; N18.30 Chronic kidney disease, stage 3 unspecified; I50.9 Heart failure, unspecified; J44.9 Chronic obstructive pulmonary disease, unspecified; E11.40 Type 2 diabetes mellitus with diabetic neuropathy, unspecified; E78.5 Hyperlipidemia, unspecified; E03.9 Hypothyroidism, unspecified; K21.9 Gastro-esophageal reflux disease without esophagitis; M19.90 Unspecified osteoarthritis, unspecified site; G47.33 Obstructive sleep apnea (adult) (pediatric); G25.81 Restless legs syndrome; F41.9 Anxiety disorder, unspecified; Z96.653 Presence of artificial knee joint, bilateral; Z90.710 Acquired absence of both cervix and uterus; Z87.442 Personal history of urinary calculi; Z87.891 Personal history of nicotine dependence; Z79.84 Long term (current) use of oral hypoglycemic drugs; W01.190A Fall on same level from slipping, tripping and stumbling with subsequent striking against furniture, initial encounter
CPT/HCPCS: 36415; 71045; 71250; 74176; 80053; 85025; 85610; 96374; 99284; A9270; J1170

== ENCOUNTER 2022-08-28 16:07 | Inpatient (IN) | payer MEDICARE, BC, SELFPAY ==
[2022-08-28] VITALS (15 sets, daily range): BP systolic 96–147; BP diastolic 47–71; PULSE 82–97; RESP 12–20; TEMP 36.1; O2SAT 94–100; BMI 49.9
--- NOTE | ~2022-08-28 | US_ITS ---
EXAMINATION: US renal BI DATE: 08/28/2022 21:00 INDICATION: NESHA TECHNIQUE: Multiple grayscale and Doppler ultrasound images of the kidneys were obtained. COMPARISON: CT CAP 05/06/2022 FINDINGS: The right kidney measures 12.5 x 5.4 x 6.1 cm. The left kidney measures 10.5 x 5.3 x 5.3 cm. The kidn eys demonstrate normal parenchymal echogenicity. There is no hydronephrosis. The bladder is decompres sed by a De La Cruz catheter. IMPRESSION: Unremarkable renal sonogram findings. Reviewed, dictated and finalized at location [facility].
--- NOTE | ~2022-08-28 | CT_ITS ---
EXAMINATION: CT cervical spine wo con DATE: 08/28/2022 18:05 INDICATION: fall TECHNIQUE: Computed tomography (CT) of the cervical spine was performed without intravenous contrast. Automated exposure control and iterative reconstruction technique were employed. The dose-length pro duct was 638.50 mGy-cm. COMPARISON: 12/10/2019; CT CAP 05/06/2022. FINDINGS: Vertebral Body Alignment: Intact. Stable grade 1 anterolisthesis at C4-5. Craniocervical and atlantoaxial alignment: Moderate degenerative change. Alignment intact. Osseous structures/fracture: No evidence of a lytic or blastic process in the visualized spine. No e vidence of acute fracture. Cervical soft tissues: The paraspinal soft tissues planes are maintained. 6 mm irregular and peripher al left upper lobe nodule. Degenerative changes: Degenerative changes, without severe neural foraminal or central canal narrowin g. IMPRESSION: No acute fracture or traumatic malalignment in the cervical spine. Irregular and peripheral 6 mm left upper lobe nodule, recommend nonemergent but timely outpatient low -dose noncontrast CT of the chest for further evaluation. Reviewed, dictated and finalized at location [facility]. IMPRESSION: No acute fracture or traumatic malalignment in the cervical spine. Irregular and peripheral 6 mm left upper lobe nodule, recommend nonemergent but timely outpatient low-dose noncontrast CT of the chest for further evaluation.
--- NOTE | ~2022-08-28 | CT_ITS ---
EXAMINATION: CT brain wo con DATE: 08/28/2022 18:01 INDICATION: headache, fall . TECHNIQUE: Computed tomography (CT) of the head was performed without intravenous contrast. The mA wa s adjusted according to patient size. Iterative reconstruction technique was employed. The dose-lengt h product was 605.33 mGy-cm. COMPARISON: 12/13/2021. FINDINGS: No acute intracranial hemorrhage or extra-axial fluid collection. No hydrocephalus, mass, or herniation. No acute ischemic infarct. Unremarkable dural venous sinus attenuation. No acute osseous abnormality. Right posterior ethmoid retention cyst or polyp. Right inferior sphenoid retention cyst or polyp. The remaining aerated spaces are clear. Mild atrophy and moderate chronic white matter change. Atherosclerotic intracranial calcification. Bi lateral lens replacements. IMPRESSION: No acute intracranial process. Reviewed, dictated and finalized at location [facility].
--- NOTE | ~2022-08-28 | XR_ITS ---
EXAMINATION: XR chest 1V Exam Date/Time: 08/28/2022 18:00 CDT HISTORY: cough, sob WITH LEG WEAKNESS Comparison: 05/06/2022. RESULT: Lines, tubes, and devices: None. Lungs and pleura: Clear. Cardiomediastinal silhouette: Stable. Other: No acute osseous or upper abdominal finding. IMPRESSION: No acute cardiopulmonary process. Reviewed, dictated and finalized at location K.
--- NOTE | 2022-08-28 17:51 | ECG_ITS ---
Measurements Intervals [place] Rate: 96 P: 89 WI: 175 QRS: 11 QRSD: 98 T: 41 QT: 377 QTc: 477 Interpretive Statements ATRIAL FLUTTER/TACHYCARDIA WITH NORMAL VENTRICULAR RESPONSE BASELINE ARTIFACT- I, III, AVL, AVF ABNORMAL ECG COMPARED TO ECG 02/20/2022 19:50:01 ATRIAL FLUTTER/TACHYCARDIA NOW PRESENT Electronically Signed On 08-28-2022 20:03:24 CDT by Calin Fernandez D.O.
--- NOTE | 2022-08-28 17:52 | ED.WEAKNESS ---
HPI - Weakness General Chief complaint: Weakness Stated complaint: legs are weak Time Seen by Provider: 08/28/22 17:34 History of Present Illness HPI Narrative: Patient is a 71-year-old female with a history of Parkinson's, CHF, COPD, diabetes, hypertension presenting with weakness. Patient states that for the last day she has been unable to ambulate normally. States that her legs keep buckling underneath her. States that it buckled underneath her while she was on the toilet and she accidentally urinated all over herself. Currently, states that it feels like she needs to urinate but is unable to. States that she intermittently feels short of breath but she denies chest pain or lightheadedness. States that she does have a headache that slowly improving. Reports nausea but no vomiting. Complains of chronic constipation. Denies numbness or weakness, recent fevers, rashes, congestion, leg swelling. Related Data Home Medications Medication Instructions Recorded Confirmed atorvastatin 80 mg tablet 80 mg PO QAM 12/10/19 09/01/22 carbidopa 25 mg-levodopa 100 mg 3 tablet PO TID 12/10/19 09/01/22 tablet fluoxetine 40 mg capsule 40 mg PO BID 12/10/19 09/01/22 oxcarbazepine 300 mg tablet 300 mg PO BID 12/10/19 09/01/22 alprazolam 1 mg tablet 1 mg PO QID 10/10/20 09/01/22 allopurinol 100 mg tablet 100 mg PO DAILY 12/12/21 09/01/22 doxepin 25 mg capsule 25 mg PO BID 12/12/21 09/01/22 empagliflozin 10 mg tablet 10 mg PO DAILY 12/12/21 09/01/22 (Jardiance) ipratropium 0.5 mg-albuterol 3 mg 3 ml inhalation Q6H 12/12/21 09/01/22 (2.5 mg base)/3 mL nebulization soln prazosin 5 mg capsule 5 mg PO HS 12/12/21 09/01/22 ropinirole 0.5 mg tablet 0.5 mg PO HS 12/12/21 09/01/22 primidone 50 mg tablet 50 mg PO BID 12/21/21 09/01/22 acetaminophen 650 mg tablet 650 mg PO Q6H PRN Pain (Scale 12/23/21 09/01/22 Score 1-3) albuterol sulfate 90 mcg/actuation 2 puff inhalation QID PRN 12/23/21 09/01/22 aerosol inhaler Shortness Of Breath Or Wheezing quetiapine 25 mg tablet 25 mg PO HS 12/23/21 09/01/22 gabapentin 100 mg PO TID 12/29/21 09/01/22 bumetanide 1 mg tablet 2 mg PO DAILY 02/15/22 09/01/22 fluvoxamine 100 mg tablet 100 mg PO QHS 02/15/22 09/01/22 losartan 25 mg PO DAILY 02/15/22 09/01/22 amiodarone 200 mg PO DAILY 08/28/22 09/01/22 apixaban 5 mg tablet (Eliquis) 2.5 mg PO Q12HR 08/28/22 09/01/22 buspirone 10 mg tablet 10 mg PO BID 08/28/22 09/01/22 pantoprazole 40 mg tablet,delayed 40 mg PO QAM 08/28/22 09/01/22 release Breo Ellipta See Rx Instructions .Route .COMPLEX 09/02/22 09/02/22 ferrous sulfate 325 mg PO DAILY 09/02/22 09/02/22 Allergies Allergy/AdvReac Type Severity Reaction Status Date / Time iodine Allergy Severe Hives Verified 05/06/22 12:41 latex Allergy Severe Hives Verified 05/06/22 12:41 Contrast Media Allergy Mild Hives Uncoded 05/06/22 12:41 Review of Systems Review of Systems: All systems reviewed & are unremarkable except as noted in HPI and below PMFSH Past Medical History Medical History Acute hyperkalemia Anxiety BMI greater than 40 Chronic anemia Chronic kidney disease, stage 3 Baseline creatinine ranges between 1.2 and 1.50. Chronic obstructive pulmonary disease Depression Gastroesophageal reflux disease GI bleed (01/2010) Secondary to peptic ulcer. Heart failure with preserved ejection fraction Hyperlipidemia Hypertension Hypothyroidism Junctional rhythm Kidney stones Neuropathy Obstructive sleep apnea Patient does not use PAP therapy at nighttime. Osteoarthritis Parkinson disease Restless leg syndrome Type 2 diabetes mellitus Surgical History Surgical History History of bilateral knee arthroplasty History of hysterectomy History of sinus surgery Family History Family History Grandparent Diabetes mellitus Acute myoc
[2022-08-28] MEDS: SODIUM CHLORIDE 0.9% IV 1,000 ML 999 ML IV CONT ×2 (18:26→19:13)
[2022-08-28] MEDS: ONDANSETRON INJ 4 MG/2 ML VIAL IV PUSH (18:26)
[2022-08-28] MEDS: ACETAMINOPHEN 500 MG TABLET 1000 MG PO (18:26)
[2022-08-28 18:33] LABS: Basophils Absolute Auto 0.1 K/mm3 (0.0-0.1); Basophils Percent Auto 0.8 % (0.2-1.2); Eosinophils Absolute Auto 0.4 K/mm3 (0-0.3); Eosinophils Percent Auto 4.8 % (0-4.4); Hematocrit 28.5 % (37.0-47.0); Hemoglobin 8.7 g/dL (12.0-15.0); Immature Granulocyte Absolute 0.03 K/mm3 (0.00-0.031); Immature Granulocyte Percent A 0.4 % (0-0.5); Lymphocytes Percent Auto 9.4 % (18.3-44.2); Mean Corpuscular HGB Conc 30.5 g/dl (32-36); Mean Corpuscular Hemoglobin 31.3 pg (26-34); Mean Corpuscular Volume 102.5 fl (80-100); Mean Platelet Volume 11.1 fl (7.4-10.4); Monocytes Absolute Auto 0.6 K/mm3 (0.1-0.6); Monocytes Percent Auto 6.7 % (2.6-8.5); Neutrophils Absolute Auto 6.7 K/mm3 (1.3-6.7); Neutrophils Percent Auto 77.9 % (45.5-73.1); Platelet Count Result 269 k/mm3 (150-375); Red Blood Count 2.78 M/mm3 (4.2-5.4); Red Cell Distribution Width 14.7 % (11.5-14.5); White Blood Count 8.5 K/mm3 (4.5-10.0)
[2022-08-28 18:37] LABS: Appearance Urine Clear (Clear); Bacteria Urine None Seen /hpf; Bilirubin Urine Negative (Negative); Blood Urine Negative (Negative); Color Urine Yellow (Yellow); Glucose Urine UA 1+ mg/dL (Negative); Ketones Urine Negative (Negative); Leukocyte Esterase Ur Trace LEU/UL (Negative); Nitrate Urine Negative (Negative); Non Pathogenic Casts 0-2; Protein Urine Negative (Negative); RBC Urine 0-2 /hpf (0-2); Specific Grav Ur 1.011 (1.001-1.035); Squamous Epithelial Cell Urine None seen /hpf (Few); Urobilinogen Urine 0.2 mg/dL (<2.0); WBC Urine 0-5 /hpf
[2022-08-28 18:39] LABS: Add Urine Microscopic? YES
[2022-08-28 18:40] LABS: Lactic Acid Reflex 1.1 mmol/L (0.7-2.0)
[2022-08-28 18:42] LABS: Alanine Aminotransferase 10 U/L (6-35); Albumin Level 4.3 g/dL (3.5-5.1); Alkaline Phosphatase 156 U/L (38-126); Anion Gap 9 mmol/L (8-16); Aspartate Amino Transferase 20 U/L (14-36); Bilirubin,Total 0.4 mg/dL (0.2-1.3); Blood Urea Nitrogen 52 mg/dL (7-17); Calcium 9.4 mg/dL (8.4-10.2); Carbon Dioxide 32 mmol/L (22-30); Chloride 91 mmol/L (98-107); Estimated CRCL calculation 27 ml/min; Estimated Glomerular Filt Rate 22; Glucose 152 mg/dL (65-110); Potassium 4.2 mmol/L (3.4-5.0); Sodium 132 mmol/L (137-145)
[2022-08-28 18:43] LABS: INR 1.1
[2022-08-28 18:44] LABS: Lipase 171 U/L (23-300); Magnesium 2.6 mg/dL (1.6-2.3)
[2022-08-28 18:50] LABS: NT Pro B Type Natriuretic Pept 2690 pg/mL (19.9-100)
[2022-08-28 18:56] LABS: Troponin I < 0.012 ng/mL (0.000-0.034)
--- NOTE | 2022-08-28 20:47 | PM.IMHP ---
H&P: HPI History of Present Illness Date/Time: 08/28/22 20:47 Chief Complaint: Generalized weakness. Narrative: Patient is a 71-year-old female with a past medical history including but not limited to obesity, restless leg syndrome, Parkinson's, CHF, COPD, diabetes, hypertension presenting with weakness.? The patient was in her usual state of health until 1 day ago. Patient states that for the last day she has been unable to ambulate normally.? States that her legs keep buckling underneath her.? States that it buckled underneath her while she was on the toilet and she accidentally urinated all over herself.? Patient reports 1 episode of fall. Currently, states that it feels like she needs to urinate but is unable to.? States that she intermittently feels short of breath but she denies chest pain or lightheadedness.? States that she does have a headache that slowly improving.? Reports nausea but no vomiting.? Complains of chronic constipation.? Denies numbness or weakness, recent fevers, rashes, congestion, leg swelling. On arrival the patient was stable and afebrile with a temperature of 96.9?, pulse rate 86, respiration 13, pulse ox 94%, blood pressure 119/66. Her CBC shows a WBC of 8.5, hemoglobin 8.7, hematocrit 28.5 and a platelet count of 269. Her chemistry shows a sodium of 132, potassium 4.2, chloride 91, bicarbonate 32, BUN 52 and creatinine 2.2. Urinalysis shows 1+ glucose, trace leukocyte esterase, 0-5 WBC, 0-2 RBC. A renal ultrasound was unremarkable. Chest x-ray did not reveal any cardiopulmonary process. CT of the head and neck did not reveal any acute intracranial process. In view of worsening kidney function, patient was started on gentle IV fluid. Physical therapy and occupational therapy were ordered. The hospital medicine service was consulted for further evaluation and management. The patient will be admitted under observation to the medical floor. Review of Systems Review of Systems: All systems reviewed & are unremarkable except as noted in HPI and below Constitutional: Constitutional: Reports as per HPI, Reports fatigue, Reports lethargy and Reports weakness Eyes: Eyes: Reports as per HPI and Denies blurry vision ENT: Reports system reviewed and no additional complaints, except as documented and Denies epistaxis Cardiovascular: Cardiovascular: Reports as per HPI, Denies chest pain, Denies lightheadedness and Denies palpitations Comments: Occasional shortness of breath. Respiratory: Respiratory: Reports as per HPI, Denies chest congestion, Denies cough, Denies hemoptysis, Reports dyspnea, Reports dyspnea on exertion and Denies wheezing Gastrointestinal: Gastrointestinal: Reports as per HPI, Denies abdominal pain, Reports constipation, Denies diarrhea, Reports nausea and Denies vomiting Genitourinary: Genitourinary: Reports no additional female genitourinary complaints, Reports urinary frequency, Denies nocturia and Denies dysuria Musculoskeletal: Musculoskeletal: Reports as per HPI Comments: Bilateral lower extremity weakness. Integumentary/Breasts: Skin/Breast: Reports system reviewed and no additional complaints, except as docu, Denies pruritus, Denies erythema and Denies rash Neurologic: Reports system reviewed and no additional complaints, except as documented, Denies Abnormal speech present, Reports abnormal gait and Reports headache(s) Psychiatric: Psychiatric: Reports no additional psychiatric complaints and Reports as per HPI [facility] Past Medical History Medical History Acute hyperkalemia Anxiety BMI greater than 40 Chronic anemia Chronic kidney disease, stage 3 Baseline creatinine ranges between 1.2 and 1.50. Chronic obstructive pulmonary disease Depression Gastroesophageal reflux disease GI bleed (01/2010) Secondary to peptic ulcer. Heart failure with preserved ejection fraction Hyperlipidemia Hypertension Hypothyroidism Junctio
--- NOTE | 2022-08-28 21:14 | ADMGEN ---
This patient, Jenni Rondon, was admitted to [facility] Surg Room 332-02. Patient/family oriented to hospital policies and general routines including ID bracelet, bed and alarms, visiting hours, pain management, procedures, bathroom and other care routines, personal items, smoking policy, room service/diet, and visiting hours. Information on how to activate the Rapid Response Team has been discussed. Patient/Family are encouraged to report perceived risks to care and to ask questions if they do not understand what they are told or what they should do.
[2022-08-29] VITALS (9 sets, daily range): BP systolic 116–130; BP diastolic 57–71; PULSE 84–97; RESP 16–20; TEMP 36.4–36.7; O2SAT 90–96
[2022-08-29] MEDS: PRAZOSIN HCL 5 MG CAPSULE PO ×2 (00:30→20:25)
[2022-08-29] MEDS: ALPRAZolam (*CRX) 0.5 MG TABLET 1 MG (01:00)
[2022-08-29] MEDS: ALPRAZolam (*CRX) 0.5 MG TABLET 1 MG PO ×5 (01:00→20:23)
[2022-08-29] MEDS: APIXABAN 2.5 MG TABLET PO ×3 (01:01→20:25)
[2022-08-29] MEDS: QUEtiapine FUMARATE 25 MG TABLET PO ×2 (01:02→20:24)
[2022-08-29] MEDS: rOPINIRole HCL 0.5 MG TABLET PO ×2 (01:05→20:24)
[2022-08-29 02:14] LABS: Total Protein Urine Random 20 mg/dL; Urea Random Urine 406 MG/DL
[2022-08-29 06:52] LABS: Hemoglobin 7.7 g/dL (12.0-15.0); Mean Corpuscular HGB Conc 29.6 g/dl (32-36); Mean Corpuscular Hemoglobin 30.7 pg (26-34); Mean Corpuscular Volume 103.6 fl (80-100); Mean Platelet Volume 11.9 fl (7.4-10.4); Platelet Count Result 231 k/mm3 (150-375); Red Blood Count 2.51 M/mm3 (4.2-5.4); Red Cell Distribution Width 14.6 % (11.5-14.5); White Blood Count 6.6 K/mm3 (4.5-10.0)
[2022-08-29 07:10] LABS: Anion Gap 3 mmol/L (8-16); Blood Urea Nitrogen 46 mg/dL (7-17); Calcium 8.6 mg/dL (8.4-10.2); Carbon Dioxide 34 mmol/L (22-30); Chloride 98 mmol/L (98-107); Estimated CRCL calculation 30 ml/min; Estimated Glomerular Filt Rate 24; Glucose 131 mg/dL (65-110); Potassium 4.3 mmol/L (3.4-5.0); Sodium 135 mmol/L (137-145)
[2022-08-29 07:12] LABS: Iron 59 ug/dL (37-170)
[2022-08-29 07:21] LABS: Percent Iron Saturation 16 % (20-50)
[2022-08-29] MEDS: DOXEPIN HCL 25 MG CAPSULE PO ×2 (08:07→16:37)
[2022-08-29] MEDS: FLUoxetine HCL 20 MG CAPSULE 40 MG PO ×2 (08:07→16:37)
[2022-08-29] MEDS: PRIMIDONE 50 MG TABLET PO ×2 (08:07→16:36)
[2022-08-29] MEDS: AMIODARONE HCL 200 MG TABLET PO (08:07)
[2022-08-29] MEDS: CARBIDOPA/LEVODOPA 25/100 MG TABLET 3 TABLET PO ×3 (08:07→16:36)
[2022-08-29] MEDS: busPIRone HCL 10 MG TABLET PO ×2 (08:08→16:36)
[2022-08-29] MEDS: MICONAZOLE NITRATE 2% CREAM 30 GM TUBE 1 APPLIC TOPICAL ×2 (08:08→16:37)
[2022-08-29] MEDS: OXcarbazepine 300 MG TABLET PO ×2 (08:08→16:37)
[2022-08-29] MEDS: allopurinoL 100 MG TABLET PO (08:08)
[2022-08-29] MEDS: ATORVASTATIN 40 MG TABLET 80 MG PO (08:08)
[2022-08-29] MEDS: BUMETANIDE 1 MG TABLET 2 MG PO (08:08)
[2022-08-29] MEDS: PANTOPRAZOLE 40 MG TABLET PO (08:08)
[2022-08-29] MEDS: LOSARTAN POTASSIUM 25 MG TABLET PO (08:08)
[2022-08-29] MEDS: hydrALAZINE HCL 25 MG TABLET PO ×3 (08:08→16:37)
[2022-08-29] MEDS: EMPAGLIFLOZIN 10 MG TABLET PO (08:08)
[2022-08-29] MEDS: GABAPENTIN 100 MG CAPSULE PO (08:10)
[2022-08-29] MEDS: IPRATROPIUM BR 0.02% INH SOLN 0.5 MG/2.5 ML VIAL INHALATION ×3 (08:53→21:06)
[2022-08-29] MEDS: ALBUTEROL SULFATE NEB 2.5 MG/3 ML INH INHALATION ×3 (08:53→21:06)
--- NOTE | 2022-08-29 10:30 | PM.IMPN ---
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 PT and OT evaluation. Maintain fall precautions. (2) NESHA (acute kidney injury): Code(s): N17.9 - Acute kidney failure, unspecified Status: Acute Assessment and Plan: Creatinine improving. Acute kidney injury likely secondary to poor oral intake. Most recent creatinine was 1.7 on 05/06/2022. Admission creatinine is 2.2. Patient has historical stage III CKD secondary to diabetes. Of note, ultrasound did not show any morphological abnormalities. We will obtain urine electrolytes. Hold off on hydration to avoid CHF exacerbation. She is on bumetanide and losartan at home which is on hold. Check urine and serum osmolality and urine creatinine and urine sodium (3) Atrial flutter: Code(s): I48.92 - Unspecified atrial flutter Status: Acute Assessment and Plan: currently rate controlled. Continue home medications. (4) Restless leg syndrome: Code(s): G25.81 - Restless legs syndrome Status: Acute Assessment and Plan: Obtain iron panel Resume home meds (5) Obstructive sleep apnea: Code(s): G47.33 - Obstructive sleep apnea (adult) (pediatric) Status: Chronic Assessment and Plan: Not on CPAP a home Monitor nocturnal pulse oximetry. (6) Anxiety: Code(s): F41.9 - Anxiety disorder, unspecified Status: Acute Assessment and Plan: Continue home meds (7) Heart failure with preserved ejection fraction: Code(s): I50.30 - Unspecified diastolic (congestive) heart failure Status: Chronic Assessment and Plan: currently asymptomatic Bumetanide and losartan on hold in the setting of worsening kidney function. (8) Hyperlipidemia: Qualifiers: Hyperlipidemia type: mixed hyperlipidemia Qualified Code(s): E78.2 - Mixed hyperlipidemia Code(s): E78.5 - Hyperlipidemia, unspecified Status: Acute Assessment and Plan: resume statin (9) Anemia in chronic kidney disease: Code(s): N18.9 - Chronic kidney disease, unspecified; D63.1 - Anemia in chronic kidney disease Status: Acute Assessment and Plan: Hemoglobin is stable. anemia is macrocytic and normochromic. Iron studies normal. Subjective Date/time seen: 08/29/22 10:30 Interval history: Patient reports generalized weakness Review of Systems Review of Systems: All systems reviewed & are unremarkable except as noted in HPI and below Constitutional: Constitutional: Reports as per HPI, Reports fatigue, Reports lethargy and Reports weakness Eyes: Eyes: Reports as per HPI and Denies blurry vision ENT: Reports system reviewed and no additional complaints, except as documented and Denies epistaxis Cardiovascular: Cardiovascular: Reports as per HPI, Denies chest pain, Denies lightheadedness and Denies palpitations Comments: Occasional shortness of breath. Respiratory: Respiratory: Reports as per HPI, Denies chest congestion, Denies cough, Denies hemoptysis, Reports dyspnea, Reports dyspnea on exertion and Denies wheezing Gastrointestinal: Gastrointestinal: Reports as per HPI, Denies abdominal pain, Reports constipation, Denies diarrhea, Reports nausea and Denies vomiting Genitourinary: Genitourinary: Reports no additional female genitourinary complaints, Reports urinary frequency, Denies nocturia and Denies dysuria Musculoskeletal: Musculoskeletal: Reports as per HPI Comments: Bilateral lower extremity weakness. Integumentary/Breasts: Skin/Breast: Reports system reviewed and no additional complaints, except as docu, Denies pruritus, Denies erythema and Denies rash Neurologic: Reports system reviewed and no additional complaints, except as documented, Denies Abnormal speech present, Reports abnormal gait and Reports
--- NOTE | 2022-08-29 10:50 | PM.CNNEP ---
Assessment and Plan Assessment and plan (1) Stage 3b chronic kidney disease: Code(s): N18.32 - Chronic kidney disease, stage 3b Status: Chronic Assessment and Plan: The patient has chronic kidney disease stage IIIB. Her creatinine seems to run around 1.5 with a GFR in the 30s and 40s. She follows with Dr. Melchor and has been evaluated for this. (2) NESHA (acute kidney injury): Code(s): N17.9 - Acute kidney failure, unspecified Status: Acute Assessment and Plan: The patient has acute kidney injury as well. Her creatinine is higher than usual. He was 2.2 last night and after a little bit of IV fluids it is down to 2.0. She may be little behind in fluids so I am going to give her some IV fluids today and recheck her labs tomorrow. She could have rhabdomyolysis so will check a CK. She could have obstruction so will check a renal ultrasound. I doubt if she has a glomerulonephritis or interstitial nephritis because she has not changed any of her medicines slightly. And she does not have any signs of the former. (3) Chronic respiratory failure: Code(s): J96.10 - Chronic respiratory failure, unspecified whether with hypoxia or hypercapnia Status: Acute Assessment and Plan: She is getting supportive care (4) Congestive heart failure: Qualifiers: Heart failure chronicity: acute on chronic Heart failure type: unspecified Qualified Code(s): I50.9 - Heart failure, unspecified Code(s): I50.9 - Heart failure, unspecified Status: Acute Assessment and Plan: This is compensated. If anything she is a little dry (5) Hyponatremia: Code(s): E87.1 - Hypo-osmolality and hyponatremia Status: Acute Assessment and Plan: Hyponatremia is chronic. This can be due to medications. She is on doxepin and fluoxetine, pantoprazole which can all do this. Cancer can do this as well but she has no symptoms of cancer or presence of cancer. [employer] issues can do this as well. She has no symptoms of space-occupying lesions. Head CT was negative. Pulmonary issues can do this. She does have COPD and sleep apnea. Chest x-ray was negative. Will check TSH and cortisol. Will also check osmolalities and an SPEP. (6) Anemia in chronic kidney disease: Code(s): N18.9 - Chronic kidney disease, unspecified; D63.1 - Anemia in chronic kidney disease Status: Acute Assessment and Plan: Hemoglobin is quite low will check iron levels and put her on EPO. (7) Hypertension: Qualifiers: Hypertension type: primary hypertension Qualified Code(s): I10 - Essential (primary) hypertension Code(s): I10 - Essential (primary) hypertension Status: Chronic Assessment and Plan: Blood pressure is up and down. Will hold blood pressure meds for now. (8) Diabetic neuropathy: Code(s): E11.40 - Type 2 diabetes mellitus with diabetic neuropathy, unspecified Status: Acute Assessment and Plan: The patient has been getting gabapentin. She has asterixis which is probably due to the gabapentin. This could be causing her legs to collapse as well so will stop the gabapentin. Consider another treatment for her neuropathy such as amitriptyline or Cymbalta? History of Present Illness Reason for Consult Consult date: 08/29/22 Chief Complaint Chief complaint: NESHA/Generalized Weakness History of Present Illness Narrative: Jenni is a very pleasant 71-year-old lady who has multiple medical problems including chronic kidney disease stage 3 with a baseline creatinine around 1.[address] Montoya at [facility] in [place], COPD, GERD, diastolic dysfunction, hypertension, diabetes, Parkinson's disease, sleep apnea, COPD, depression, anxiety, high body mass index, hyperlipidemia, hypothyroidism, kidney stones, restless legs. The patient came in the hospital because she had several falls. Her legs kept buckling und
[2022-08-29 11:18] LABS: Creatine Kinase 63 U/L (30-135)
[2022-08-29] MEDS: ACETAMINOPHEN 325 MG TABLET 650 MG PO (13:27)
[2022-08-29 13:43] LABS: Creatinine Urine 39.4 mg/dL; Total Protein Urine Random 10 mg/dL; Ur Ttl Prot Creatinine Ratio 0.25 mg/mg (0-0.20)
[2022-08-29 13:54] LABS: Creatinine Urine 39.6 mg/dL
[2022-08-29 14:02] LABS: Sodium Urine Random 59 meq/L
[2022-08-29 16:10] LABS: Iron 60 ug/dL (37-170)
[2022-08-29 16:27] LABS: Percent Iron Saturation 16 % (20-50)
[2022-08-29 17:26] LABS: Free T4 Free Thyroxine Reflex 1.04 ng/dL (0.78-2.19)
[2022-08-29 18:10] LABS: Total Triiodothyronine (T3) 0.84 NG/ML (0.97-1.69)
[2022-08-29 21:13] LABS: Glucose Point of Care 204 mg/dl (65-105)
[2022-08-30] VITALS (7 sets, daily range): BP systolic 115–130; BP diastolic 55–69; PULSE 83–99; RESP 16–20; TEMP 36.3–36.8; O2SAT 95–97
[2022-08-30 06:48] LABS: Albumin Level 3.6 g/dL (3.5-5.1); Anion Gap 3 mmol/L (8-16); Blood Urea Nitrogen 44 mg/dL (7-17); Calcium 8.5 mg/dL (8.4-10.2); Carbon Dioxide 33 mmol/L (22-30); Chloride 97 mmol/L (98-107); Estimated CRCL calculation 30 ml/min; Estimated Glomerular Filt Rate 24; Glucose 146 mg/dL (65-110); Phosphorus 4.6 mg/dL (2.5-4.5); Potassium 4.4 mmol/L (3.4-5.0); Sodium 133 mmol/L (137-145)
[2022-08-30] MEDS: IPRATROPIUM BR 0.02% INH SOLN 0.5 MG/2.5 ML VIAL INHALATION ×2 (07:49→13:34)
[2022-08-30] MEDS: ALBUTEROL SULFATE NEB 2.5 MG/3 ML INH INHALATION ×2 (07:49→13:34)
[2022-08-30] MEDS: ALPRAZolam (*CRX) 0.5 MG TABLET 1 MG PO ×4 (08:44→20:24)
[2022-08-30] MEDS: PRIMIDONE 50 MG TABLET PO ×2 (08:44→16:08)
[2022-08-30] MEDS: PANTOPRAZOLE 40 MG TABLET PO (08:44)
[2022-08-30] MEDS: allopurinoL 100 MG TABLET PO (08:44)
[2022-08-30] MEDS: CARBIDOPA/LEVODOPA 25/100 MG TABLET 3 TABLET PO ×3 (08:44→16:07)
[2022-08-30] MEDS: OXcarbazepine 300 MG TABLET PO ×2 (08:44→16:08)
[2022-08-30] MEDS: ATORVASTATIN 40 MG TABLET 80 MG PO (08:45)
[2022-08-30] MEDS: DOXEPIN HCL 25 MG CAPSULE PO ×2 (08:45→16:08)
[2022-08-30] MEDS: APIXABAN 2.5 MG TABLET PO ×2 (08:45→20:24)
[2022-08-30] MEDS: hydrALAZINE HCL 25 MG TABLET PO ×3 (08:45→16:08)
[2022-08-30] MEDS: AMIODARONE HCL 200 MG TABLET PO (08:45)
[2022-08-30] MEDS: MICONAZOLE NITRATE 2% CREAM 30 GM TUBE 1 APPLIC TOPICAL ×2 (08:45→16:08)
[2022-08-30] MEDS: busPIRone HCL 10 MG TABLET PO ×2 (08:45→16:08)
[2022-08-30] MEDS: FLUoxetine HCL 20 MG CAPSULE 40 MG PO ×2 (08:45→16:08)
[2022-08-30] MEDS: ACETAMINOPHEN 325 MG TABLET 650 MG PO (08:58)
--- NOTE | 2022-08-30 11:12 | PM.IMPN ---
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 PT and OT evaluation. Maintain fall precautions. (2) NESHA (acute kidney injury): Code(s): N17.9 - Acute kidney failure, unspecified Status: Acute Assessment and Plan: Creatinine improving. Acute kidney injury likely secondary to poor oral intake. Most recent creatinine was 1.7 on 05/06/2022. Admission creatinine is 2.2. Patient has historical stage III CKD secondary to diabetes. Of note, ultrasound did not show any morphological abnormalities. We will obtain urine electrolytes. no CHF exacerbation. She is on bumetanide and losartan at home which is on hold. Patient has hyponatremia, no improvement of kidney function, blood pressure is soft diastolic blood pressure low Start normal saline IV Follow-up BMP (3) Atrial flutter: Code(s): I48.92 - Unspecified atrial flutter Status: Acute Assessment and Plan: currently rate controlled. Continue home medications. (4) Restless leg syndrome: Code(s): G25.81 - Restless legs syndrome Status: Acute Assessment and Plan: Obtain iron panel Resume home meds (5) Obstructive sleep apnea: Code(s): G47.33 - Obstructive sleep apnea (adult) (pediatric) Status: Chronic Assessment and Plan: Not on CPAP a home Monitor nocturnal pulse oximetry. (6) Anxiety: Code(s): F41.9 - Anxiety disorder, unspecified Status: Acute Assessment and Plan: Continue home meds (7) Heart failure with preserved ejection fraction: Code(s): I50.30 - Unspecified diastolic (congestive) heart failure Status: Chronic Assessment and Plan: currently asymptomatic Bumetanide and losartan on hold in the setting of worsening kidney function. (8) Hyperlipidemia: Qualifiers: Hyperlipidemia type: mixed hyperlipidemia Qualified Code(s): E78.2 - Mixed hyperlipidemia Code(s): E78.5 - Hyperlipidemia, unspecified Status: Acute Assessment and Plan: resume statin (9) Anemia in chronic kidney disease: Code(s): N18.9 - Chronic kidney disease, unspecified; D63.1 - Anemia in chronic kidney disease Status: Acute Assessment and Plan: Hemoglobin is stable. anemia is macrocytic and normochromic. Iron studies normal. Plan Consult PT OT social work school childcare attendant for urination assist in placement. Patient may benefit from rehab at discharge Subjective Date/time seen: 08/30/22 11:12 Interval history: I saw on exam patient today, patient has no new issue even over the night. Patient reports generalized weakness. I reviewed the labs, patient still has hyponatremia, sodium level is trending down, and elevated urine creatinine no improvement. Blood pressure is soft Exam Narrative: GENERAL: Appears chronically ill, in no acute distress, pleasant and cooperative HEAD: Normocephalic, atraumatic. EYES: PERRLA and EOMI. ENT: Nares clear, no rhinorrhea or epistaxis. Mucous membranes tacky NECK: Supple. CHEST: Clear to auscultation. No respiratory distress. HEART: Regular rate and rhythm. No murmur heard. Normal peripheral pulses. ABDOMEN: Obese, soft, nontender, nondistended EXTREMITIES: Normal range of motion. No edema. SKIN: Warm, dry, no rash. NEURO: No focal deficits. Alert and oriented x3. PSYCH: Normal mood and affect. Objective Data Vital Signs Vital Signs: Vital Signs - 24 hr 08/29/22 11:36 08/29/22 14:35 08/29/22 15:01 Temperature 98.1 F Pulse Rate 85 88 Respiratory Rate 18 20 Blood Pressure 116/57 L Pulse Oximetry 94 Oxygen Delivery Room Air Fraction of Inspired Oxygen 08/29/22 15:19 08/29/22 20:00 08/29/22 21:09 Temperature Pulse Rate 85 84 Respiratory Rate 20 20 Blood Pressure Pulse Oximetry 94
[2022-08-30] MEDS: SODIUM CHLORIDE 0.9% IV 1,000 ML 125 ML IV CONT (11:58)
[2022-08-30] MEDS: polyethylene glycoL 3350 17 GM POWD.PACK PO (11:59)
[2022-08-30 12:43] LABS: Hematocrit 25.7 % (37.0-47.0); Hemoglobin 7.4 g/dL (12.0-15.0); Immature Platelet Fraction Pct 4.9 % (0.9-11.2); Mean Corpuscular HGB Conc 28.8 g/dl (32-36); Mean Corpuscular Hemoglobin 30.8 pg (26-34); Mean Corpuscular Volume 107.1 fl (80-100); Mean Platelet Volume 13.2 fl (7.4-10.4); Platelet Count Result 241 k/mm3 (150-375); Red Cell Distribution Width 14.7 % (11.5-14.5); White Blood Count 7.1 K/mm3 (4.5-10.0)
--- NOTE | 2022-08-30 13:39 | PM.PNNEP ---
Progress Note: A&P Assessment and Plan (1) Stage 3b chronic kidney disease: Code(s): N18.32 - Chronic kidney disease, stage 3b Status: Chronic Assessment and Plan: The patient has chronic kidney disease stage IIIB. Her creatinine seems to run around 1.5 with a GFR in the 30s and 40s. She follows with Dr. Montoya and has been evaluated for this. (2) NESHA (acute kidney injury): Code(s): N17.9 - Acute kidney failure, unspecified Status: Acute Assessment and Plan: The patient has acute kidney injury as well. Urine electrolytes are not pre renal. Urinalysis is bland Total CK is normal Renal ultrasound is unremarkable Her blood pressure was a little soft at 1 point on the but is been okay since then. Her creatinine is still 2.0 today. She is off the Bumex and off the losartan. Her baseline creatinine is 1.7 so she is fairly close to that. Will try little more IV fluids tonight and repeat the labs tomorrow. (3) Chronic respiratory failure: Code(s): J96.10 - Chronic respiratory failure, unspecified whether with hypoxia or hypercapnia Status: Acute Assessment and Plan: She is getting supportive care (4) Congestive heart failure: Qualifiers: Heart failure chronicity: acute on chronic Heart failure type: unspecified Qualified Code(s): I50.9 - Heart failure, unspecified Code(s): I50.9 - Heart failure, unspecified Status: Acute Assessment and Plan: This is compensated. If anything she is a little dry (5) Hyponatremia: Code(s): E87.1 - Hypo-osmolality and hyponatremia Status: Acute Assessment and Plan: Hyponatremia is chronic. TSH and cortisol are okay. She is on doxepin and fluoxetine, pantoprazole which can all do this. Sodium level is stable. (6) Anemia in chronic kidney disease: Code(s): N18.9 - Chronic kidney disease, unspecified; D63.1 - Anemia in chronic kidney disease Status: Acute Assessment and Plan: Hemoglobin is quite low Iron levels are low. Will give iron. Continue on EPO (7) Hypertension: Qualifiers: Hypertension type: primary hypertension Qualified Code(s): I10 - Essential (primary) hypertension Code(s): I10 - Essential (primary) hypertension Status: Chronic Assessment and Plan: Blood pressure is up and down. Continue to hold blood pressure meds. (8) Diabetic neuropathy: Code(s): E11.40 - Type 2 diabetes mellitus with diabetic neuropathy, unspecified Status: Acute Assessment and Plan: The patient has been getting gabapentin. She has asterixis which is probably due to the gabapentin. This could be causing her legs to collapse as well so will stop the gabapentin. Perhaps higher creatinine that to buildup of the gabapentin. Consider another treatment for her neuropathy such as amitriptyline or Cymbalta? Subjective Date/time seen: 08/30/22 13:39 Interval history: Mary is feeling about the same. She is having some trouble getting out of the chair. Physical therapy and occupational therapy are both working with her. She was worried about discharge because she is afraid she is not strong enough to go home. Review of Systems Cardiovascular: Cardiovascular: Reports no additional cardiovascular complaints Respiratory: Respiratory: Reports no additional respiratory complaints Gastrointestinal: Gastrointestinal: Reports no additional gastrointestinal complaints Genitourinary: Genitourinary: Reports no additional female genitourinary complaints Exam Narrative: WDWN in NAD skin no rash head ncat lungs clear cor reg no rub abd BS+ nontender and soft ext trace edema. Objective Data Vital Signs Vital Signs: Vital Signs - 24 hr 08/29/22 14:35 08/29/22 15:01 08/29/22 15:19 Temperature 98.1 F Pulse Rate 85 88 85 Respiratory Rate 18 20 20 Blood Pressure 116/57 L Pulse Oximetry 94
[2022-08-30] MEDS: SODIUM CHLORIDE 0.9% IV 1,000 ML 100 ML IV CONT (14:55)
[2022-08-30] MEDS: IRON SUCROSE COMPLEX 200 MG in SODIUM CHLORIDE 0.9% IV 50 ML 120 MG IVPB (14:55)
[2022-08-30] MEDS: rOPINIRole HCL 0.5 MG TABLET PO (20:24)
[2022-08-30] MEDS: PRAZOSIN HCL 5 MG CAPSULE PO (20:24)
[2022-08-30] MEDS: QUEtiapine FUMARATE 25 MG TABLET PO (20:24)
[2022-08-31] VITALS (10 sets, daily range): BP systolic 117–150; BP diastolic 63–74; PULSE 83–101; RESP 14–22; TEMP 36.4–36.7; O2SAT 95–100
[2022-08-31] MEDS: SODIUM CHLORIDE 0.9% IV 1,000 ML 125 ML IV CONT ×2 (00:36→12:27)
[2022-08-31] MEDS: ALBUTEROL SULFATE NEB 2.5 MG/3 ML INH INHALATION ×3 (07:10→19:55)
[2022-08-31] MEDS: IPRATROPIUM BR 0.02% INH SOLN 0.5 MG/2.5 ML VIAL INHALATION ×3 (07:10→19:57)
[2022-08-31 07:45] LABS: Hematocrit 24.1 % (37.0-47.0); Hemoglobin 7.3 g/dL (12.0-15.0); Mean Corpuscular HGB Conc 30.3 g/dl (32-36); Mean Corpuscular Hemoglobin 31.6 pg (26-34); Mean Corpuscular Volume 104.3 fl (80-100); Mean Platelet Volume 12.1 fl (7.4-10.4); Platelet Count Result 209 k/mm3 (150-375); Red Blood Count 2.31 M/mm3 (4.2-5.4); Red Cell Distribution Width 14.6 % (11.5-14.5); White Blood Count 7.2 K/mm3 (4.5-10.0)
[2022-08-31 08:04] LABS: Albumin Level 3.4 g/dL (3.5-5.1); Anion Gap 7 mmol/L (8-16); Blood Urea Nitrogen 36 mg/dL (7-17); Calcium 8.5 mg/dL (8.4-10.2); Carbon Dioxide 29 mmol/L (22-30); Chloride 95 mmol/L (98-107); Estimated CRCL calculation 33 ml/min; Estimated Glomerular Filt Rate 28; Glucose 122 mg/dL (65-110); Phosphorus 3.7 mg/dL (2.5-4.5); Potassium 3.9 mmol/L (3.4-5.0); Sodium 131 mmol/L (137-145)
--- NOTE | 2022-08-31 08:32 | PM.IMPN ---
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 PT and OT evaluation. Maintain fall precautions. (2) NESHA (acute kidney injury): Code(s): N17.9 - Acute kidney failure, unspecified Status: Acute Assessment and Plan: Creatinine improving. Acute kidney injury likely secondary to poor oral intake. Most recent creatinine was 1.7 on 05/06/2022. Admission creatinine is 2.2. Patient has historical stage III CKD secondary to diabetes. Of note, ultrasound did not show any morphological abnormalities. We will obtain urine electrolytes. no CHF exacerbation. She is on bumetanide and losartan at home which is on hold. Patient has hyponatremia, no improvement of kidney function, blood pressure is soft diastolic blood pressure low Started normal saline IV. c./w NS iv Follow-up BMP 08/31 Cr 1.8<2.0 (3) Atrial flutter: Code(s): I48.92 - Unspecified atrial flutter Status: Acute Assessment and Plan: currently rate controlled. Continue home medications. (4) Restless leg syndrome: Code(s): G25.81 - Restless legs syndrome Status: Acute Assessment and Plan: Obtain iron panel Resume home meds (5) Obstructive sleep apnea: Code(s): G47.33 - Obstructive sleep apnea (adult) (pediatric) Status: Chronic Assessment and Plan: Not on CPAP a home Monitor nocturnal pulse oximetry. (6) Anxiety: Code(s): F41.9 - Anxiety disorder, unspecified Status: Acute Assessment and Plan: Continue home meds (7) Heart failure with preserved ejection fraction: Code(s): I50.30 - Unspecified diastolic (congestive) heart failure Status: Chronic Assessment and Plan: currently asymptomatic Bumetanide and losartan on hold in the setting of worsening kidney function. (8) Hyperlipidemia: Qualifiers: Hyperlipidemia type: mixed hyperlipidemia Qualified Code(s): E78.2 - Mixed hyperlipidemia Code(s): E78.5 - Hyperlipidemia, unspecified Status: Acute Assessment and Plan: resume statin (9) Anemia in chronic kidney disease: Code(s): N18.9 - Chronic kidney disease, unspecified; D63.1 - Anemia in chronic kidney disease Status: Acute Assessment and Plan: Hemoglobin is stable. anemia is macrocytic and normochromic. Iron studies normal. (10) Chronic anemia: Code(s): D64.9 - Anemia, unspecified Status: Acute (11) Hyponatremia: Code(s): E87.1 - Hypo-osmolality and hyponatremia Status: Acute Assessment and Plan: chronic stable Plan Consult PT OT social work child care education coordinator for urination assist in placement. Patient may benefit from rehab at discharge Subjective Date/time seen: 08/31/22 08:32 Interval history: I saw on exam patient today, patient has no new issue even over the night. Patient reports generalized weakness. I reviewed the labs, patient still has hyponatremia, sodium level is trending down, and elevated urine creatinine improves. Blood pressure is soft Exam Narrative: GENERAL: Appears chronically ill, in no acute distress, pleasant and cooperative HEAD: Normocephalic, atraumatic. EYES: PERRLA and EOMI. ENT: Nares clear, no rhinorrhea or epistaxis. Mucous membranes tacky NECK: Supple. CHEST: Clear to auscultation. No respiratory distress. HEART: Regular rate and rhythm. No murmur heard. Normal peripheral pulses. ABDOMEN: Obese, soft, nontender, nondistended EXTREMITIES: Normal range of motion. No edema. SKIN: Warm, dry, no rash. NEURO: No focal deficits. Alert and oriented x3. PSYCH: Normal mood and affect. Objective Data Vital Signs Vital Signs: Vital Signs - 24 hr 08/30/22 13:34 08/30/22 13:50 08/30/22 14:28 Temperature 97.8 F Pulse Rate 91 99 83 Respiratory Rate 18
[2022-08-31 10:04] LABS: Iron 252 ug/dL (37-170)
[2022-08-31 10:17] LABS: Percent Iron Saturation 75 % (20-50)
[2022-08-31] MEDS: SODIUM CHLORIDE 1 GM TABLET PO ×2 (10:21→12:32)
[2022-08-31] MEDS: FLUoxetine HCL 20 MG CAPSULE 40 MG PO ×2 (10:21→17:43)
[2022-08-31] MEDS: PANTOPRAZOLE 40 MG TABLET PO (10:22)
[2022-08-31] MEDS: PRIMIDONE 50 MG TABLET PO ×2 (10:22→17:43)
[2022-08-31] MEDS: APIXABAN 2.5 MG TABLET PO ×2 (10:22→21:53)
[2022-08-31] MEDS: allopurinoL 100 MG TABLET PO (10:23)
[2022-08-31] MEDS: hydrALAZINE HCL 25 MG TABLET PO ×3 (10:23→17:43)
[2022-08-31] MEDS: AMIODARONE HCL 200 MG TABLET PO (10:23)
[2022-08-31] MEDS: CARBIDOPA/LEVODOPA 25/100 MG TABLET 3 TABLET PO ×3 (10:23→17:44)
[2022-08-31] MEDS: OXcarbazepine 300 MG TABLET PO ×2 (10:23→17:43)
[2022-08-31] MEDS: busPIRone HCL 10 MG TABLET PO ×2 (10:23→17:43)
[2022-08-31] MEDS: ATORVASTATIN 40 MG TABLET 80 MG PO (10:24)
[2022-08-31] MEDS: DOXEPIN HCL 25 MG CAPSULE PO ×2 (10:24→17:43)
[2022-08-31] MEDS: TOLNAFTATE 1% POWDER 45 GM BTL 1 APPLIC TOPICAL ×2 (10:25→21:53)
[2022-08-31] MEDS: IRON SUCROSE COMPLEX 200 MG in SODIUM CHLORIDE 0.9% IV 50 ML 120 MG IVPB (10:25)
[2022-08-31] MEDS: ALPRAZolam (*CRX) 0.5 MG TABLET 1 MG PO ×4 (10:30→21:52)
[2022-08-31] MEDS: polyethylene glycoL 3350 17 GM POWD.PACK PO (12:32)
--- NOTE | 2022-08-31 13:28 | PM.PNNEP ---
Progress Note: A&P Assessment and Plan (1) Stage 3b chronic kidney disease: Code(s): N18.32 - Chronic kidney disease, stage 3b Status: Chronic Assessment and Plan: The patient has chronic kidney disease stage IIIB. Her creatinine seems to run around 1.5 to 1.8 with a GFR in the 30s and 40s. She follows with Dr. Montoya and has been evaluated for this. (2) NESHA (acute kidney injury): Code(s): N17.9 - Acute kidney failure, unspecified Status: Acute Assessment and Plan: The patient has acute kidney injury as well. Urine electrolytes are not pre renal. Urinalysis is bland Total CK is normal Renal ultrasound is unremarkable Her blood pressure was a little soft at 1 point on the 18th but is been okay since then. Her creatinine is down to 1.8. She is off the Bumex and off the losartan. Her baseline creatinine is 1.7 so she is very close to that. the patient is eating pretty well. (3) Chronic respiratory failure: Code(s): J96.10 - Chronic respiratory failure, unspecified whether with hypoxia or hypercapnia Status: Acute Assessment and Plan: She is getting supportive care (4) Congestive heart failure: Qualifiers: Heart failure chronicity: acute on chronic Heart failure type: unspecified Qualified Code(s): I50.9 - Heart failure, unspecified Code(s): I50.9 - Heart failure, unspecified Status: Acute Assessment and Plan: This is compensated. If anything she is a little dry (5) Hyponatremia: Code(s): E87.1 - Hypo-osmolality and hyponatremia Status: Acute Assessment and Plan: Hyponatremia is chronic. TSH and cortisol are okay. She is on doxepin and fluoxetine, pantoprazole which can all do this. Sodium level is down a tiny bit. she is on sodium chloride tabs. Will start a fluid restriction and stop the sodium chloride tabs. If she needs diuretics in the future she should take sodium chloride tabs along with them. (6) Anemia in chronic kidney disease: Code(s): N18.9 - Chronic kidney disease, unspecified; D63.1 - Anemia in chronic kidney disease Status: Acute Assessment and Plan: Hemoglobin is 7.3 Iron levels are low. Will give iron. Give EPO. (7) Hypertension: Qualifiers: Hypertension type: primary hypertension Qualified Code(s): I10 - Essential (primary) hypertension Code(s): I10 - Essential (primary) hypertension Status: Chronic Assessment and Plan: Blood pressure is up and down. Continue to hold blood pressure meds. (8) Diabetic neuropathy: Code(s): E11.40 - Type 2 diabetes mellitus with diabetic neuropathy, unspecified Status: Acute Assessment and Plan: The patient has been getting gabapentin. She has asterixis which is probably due to the gabapentin. This could be causing her legs to collapse as well so will stop the gabapentin. Perhaps higher creatinine that to buildup of the gabapentin. Consider another treatment for her neuropathy such as amitriptyline or Cymbalta? Subjective Date/time seen: 08/31/22 13:28 Interval history: Mary is feeling about the same. Sitting up in a chair. No shortness of breath Exam Narrative: WDWN in NAD skin no rash head ncat lungs clear bilaterally cor reg no rub or gallop abd BS+ nontender and soft ext trace edema. Objective Data Vital Signs Vital Signs: Vital Signs - 24 hr 08/30/22 13:34 08/30/22 13:50 08/30/22 14:28 Temperature 97.8 F Pulse Rate 91 99 83 Respiratory Rate 18 18 20 Blood Pressure 130/69 Pulse Oximetry 97 Oxygen Delivery 08/30/22 21:54 08/30/22 20:10 08/31/22 06:00 Temperature 98.2 F 97.8 F Pulse Rate 90 90 Respiratory Rate 16 14 Blood Pressure 127/62 117/63 Pulse Oximetry 96 95 Oxygen Delivery Room Air 08/31/22 07:10 08/31/22 07:10 08/31/22 07:20 Temperature Pulse Rate 83 83 86 Resp
--- NOTE | 2022-08-31 18:46 | PC.NURSE ---
Pt has been up in chair most of the day. Pt reported that she no longer wanted the urinary catheter. Provider was contacted and gave order to discontinue the izquierdo. Pt has participated and contributed in plan of care. Will continue to monitor pt.
--- NOTE | 2022-08-31 19:06 | PHAR ---
DRUG NAME: FLUVOXAMINE MALEATE INGREDIENTS: FLUVOXAMINE MALEATE -- 100 MG COLOR: LIGHT ORANGE SHAPE: [place] IMPRINT: U [id number] ROUTE: ORAL ROUTE FORM: TABLET
[2022-08-31 20:34] LABS: Osmolality, Urine 377 mOsm/kg (50-1200)
[2022-08-31] MEDS: SENNA/DOCUSATE SODIUM TABLET 1 TAB PO (21:52)
[2022-08-31] MEDS: rOPINIRole HCL 0.5 MG TABLET PO (21:52)
[2022-08-31] MEDS: QUEtiapine FUMARATE 25 MG TABLET PO (21:53)
[2022-08-31] MEDS: PRAZOSIN HCL 5 MG CAPSULE PO (21:53)
[2022-08-31] MEDS: ACETAMINOPHEN 325 MG TABLET 650 MG PO (22:02)
[2022-09-01 02:29] VITALS: PULSE 96; RESP 20
[2022-09-01 02:31] VITALS: PULSE 84; RESP 18; O2SAT 96
[2022-09-01 06:00] VITALS: BP 139/63; PULSE 95; RESP 22; TEMP 36.4; O2SAT 100
[2022-09-01 06:48] LABS: Hematocrit 25.5 % (37.0-47.0); Hemoglobin 7.8 g/dL (12.0-15.0); Mean Corpuscular HGB Conc 30.6 g/dl (32-36); Mean Corpuscular Hemoglobin 31.3 pg (26-34); Mean Corpuscular Volume 102.4 fl (80-100); Mean Platelet Volume 10.8 fl (7.4-10.4); Platelet Count Result 227 k/mm3 (150-375); Red Blood Count 2.49 M/mm3 (4.2-5.4); Red Cell Distribution Width 14.6 % (11.5-14.5); White Blood Count 6.5 K/mm3 (4.5-10.0)
[2022-09-01 06:57] LABS: Albumin Level 3.6 g/dL (3.5-5.1); Anion Gap 7 mmol/L (8-16); Blood Urea Nitrogen 30 mg/dL (7-17); Calcium 8.9 mg/dL (8.4-10.2); Carbon Dioxide 27 mmol/L (22-30); Chloride 97 mmol/L (98-107); Estimated CRCL calculation 37 ml/min; Estimated Glomerular Filt Rate 32; Glucose 112 mg/dL (65-110); Phosphorus 3.9 mg/dL (2.5-4.5); Potassium 4.2 mmol/L (3.4-5.0); Sodium 131 mmol/L (137-145)
[2022-09-01 08:38] VITALS: PULSE 88
[2022-09-01] MEDS: AMIODARONE HCL 200 MG TABLET PO (08:38)
[2022-09-01] MEDS: DOXEPIN HCL 25 MG CAPSULE PO (08:38)
[2022-09-01] MEDS: hydrALAZINE HCL 25 MG TABLET PO (08:38)
[2022-09-01] MEDS: CARBIDOPA/LEVODOPA 25/100 MG TABLET 3 TABLET PO (08:38)
[2022-09-01] MEDS: OXcarbazepine 300 MG TABLET PO (08:39)
[2022-09-01] MEDS: busPIRone HCL 10 MG TABLET PO (08:39)
[2022-09-01] MEDS: allopurinoL 100 MG TABLET PO (08:39)
[2022-09-01] MEDS: ATORVASTATIN 40 MG TABLET 80 MG PO (08:39)
[2022-09-01] MEDS: FLUoxetine HCL 20 MG CAPSULE 40 MG PO (08:39)
[2022-09-01] MEDS: APIXABAN 2.5 MG TABLET PO (08:39)
[2022-09-01] MEDS: PRIMIDONE 50 MG TABLET PO (08:39)
[2022-09-01] MEDS: PANTOPRAZOLE 40 MG TABLET PO (08:39)
[2022-09-01] MEDS: IRON SUCROSE COMPLEX 200 MG in SODIUM CHLORIDE 0.9% IV 50 ML 120 MG IVPB (08:43)
[2022-09-01] MEDS: ALPRAZolam (*CRX) 0.5 MG TABLET 1 MG PO (08:43)
[2022-09-01] MEDS: TOLNAFTATE 1% POWDER 45 GM BTL 1 APPLIC TOPICAL (08:44)
--- NOTE | 2022-09-01 08:49 | PM.IMPN ---
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 PT and OT evaluation. Maintain fall precautions. (2) NESHA (acute kidney injury): Code(s): N17.9 - Acute kidney failure, unspecified Status: Acute Assessment and Plan: Creatinine improving. Acute kidney injury likely secondary to poor oral intake. Most recent creatinine was 1.7 on 05/06/2022. Admission creatinine is 2.2. Patient has historical stage III CKD secondary to diabetes. Of note, ultrasound did not show any morphological abnormalities. We will obtain urine electrolytes. no CHF exacerbation. She is on bumetanide and losartan at home which is on hold. Patient has hyponatremia, no improvement of kidney function, blood pressure is soft diastolic blood pressure low Started normal saline IV. c./w NS iv Follow-up BMP 08/31 Cr 1.8<2.0 09/01 Cr 1.6 dc NS iv today (3) Atrial flutter: Code(s): I48.92 - Unspecified atrial flutter Status: Acute Assessment and Plan: currently rate controlled. Continue home medications. (4) Restless leg syndrome: Code(s): G25.81 - Restless legs syndrome Status: Acute Assessment and Plan: Obtain iron panel Resume home meds (5) Obstructive sleep apnea: Code(s): G47.33 - Obstructive sleep apnea (adult) (pediatric) Status: Chronic Assessment and Plan: Not on CPAP a home Monitor nocturnal pulse oximetry. (6) Anxiety: Code(s): F41.9 - Anxiety disorder, unspecified Status: Acute Assessment and Plan: Continue home meds (7) Heart failure with preserved ejection fraction: Code(s): I50.30 - Unspecified diastolic (congestive) heart failure Status: Chronic Assessment and Plan: currently asymptomatic Bumetanide and losartan during hospitalization (8) Hyperlipidemia: Qualifiers: Hyperlipidemia type: mixed hyperlipidemia Qualified Code(s): E78.2 - Mixed hyperlipidemia Code(s): E78.5 - Hyperlipidemia, unspecified Status: Acute Assessment and Plan: resume statin (9) Anemia in chronic kidney disease: Code(s): N18.9 - Chronic kidney disease, unspecified; D63.1 - Anemia in chronic kidney disease Status: Acute Assessment and Plan: Hemoglobin is stable. anemia is macrocytic and normochromic. Iron studies normal. (10) Chronic anemia: Code(s): D64.9 - Anemia, unspecified Status: Acute (11) Hyponatremia: Code(s): E87.1 - Hypo-osmolality and hyponatremia Status: Acute Assessment and Plan: chronic stable Plan Consult PT OT social work patient care secretary for urination assist in placement. Patient may benefit from rehab at discharge Subjective Date/time seen: 09/01/22 08:49 Interval history: Patient feels better today, patient reports generalized weakness. I reviewed the labs, patient still has hyponatremia, currently 1.6, kidney function continued to improve Exam Narrative: GENERAL: Appears chronically ill, in no acute distress, pleasant and cooperative HEAD: Normocephalic, atraumatic. EYES: PERRLA and EOMI. ENT: Nares clear, no rhinorrhea or epistaxis. Mucous membranes tacky NECK: Supple. CHEST: Clear to auscultation. No respiratory distress. HEART: Regular rate and rhythm. No murmur heard. Normal peripheral pulses. ABDOMEN: Obese, soft, nontender, nondistended EXTREMITIES: Normal range of motion. No edema. SKIN: Warm, dry, no rash. NEURO: No focal deficits. Alert and oriented x3. PSYCH: Normal mood and affect. Neuro: Speech: No Abnormal speech present Objective Data Vital Signs Vital Signs: Vital Signs - 24 hr 08/31/22 10:23 08/31/22 13:05 08/31/22 13:15 Temperature Pulse Rate 92 101 H 96 Respiratory Rate 20 20 Blood Pressure Pulse Oximetry Oxygen D
[2022-09-01] MEDS: ALBUTEROL SULFATE NEB 2.5 MG/3 ML INH INHALATION (09:05)
[2022-09-01] MEDS: IPRATROPIUM BR 0.02% INH SOLN 0.5 MG/2.5 ML VIAL INHALATION (09:05)
[2022-09-01 09:08] VITALS: PULSE 84; RESP 20
[2022-09-01 09:21] VITALS: PULSE 88; RESP 20
[2022-09-01] MEDS: ACETAMINOPHEN 325 MG TABLET 650 MG PO (09:29)
--- NOTE | 2022-09-01 11:44 | PM.PNNEP ---
Progress Note: A&P Assessment and Plan (1) Stage 3b chronic kidney disease: Code(s): N18.32 - Chronic kidney disease, stage 3b Status: Chronic Assessment and Plan: The patient has chronic kidney disease stage IIIB. Her creatinine seems to run around 1.5 to 1.8 with a GFR in the 30s and 40s. She follows with Dr. Montoya and has been evaluated for this. (2) NESHA (acute kidney injury): Code(s): N17.9 - Acute kidney failure, unspecified Status: Acute Assessment and Plan: The patient has acute kidney injury as well. Urine electrolytes are not pre renal. Urinalysis is bland Total CK is normal Renal ultrasound is unremarkable Her blood pressure was a little soft at 1 point on the but is been okay since then. Her creatinine is down to 1.6 blood pressure is running 110-150. Will leave her off the losartan now. He is off her IV fluids. Will restart her bumetanide at 1 mg a day (3) Chronic respiratory failure: Code(s): J96.10 - Chronic respiratory failure, unspecified whether with hypoxia or hypercapnia Status: Acute Assessment and Plan: She is getting supportive care (4) Congestive heart failure: Qualifiers: Heart failure chronicity: acute on chronic Heart failure type: unspecified Qualified Code(s): I50.9 - Heart failure, unspecified Code(s): I50.9 - Heart failure, unspecified Status: Acute Assessment and Plan: This is compensated. will restart the Bumex at a lower dose before she gets in to trouble. (5) Hyponatremia: Code(s): E87.1 - Hypo-osmolality and hyponatremia Status: Acute Assessment and Plan: Hyponatremia is chronic. TSH and cortisol are okay. She is on doxepin and fluoxetine, pantoprazole which can all do this. Sodium level is at 131 Will continue fluid restriction. I told patient to restrict fluid to about 6-8 cups per day (6) Anemia in chronic kidney disease: Code(s): N18.9 - Chronic kidney disease, unspecified; D63.1 - Anemia in chronic kidney disease Status: Acute Assessment and Plan: Hemoglobin is 7.8 Iron levels are low. On iron. On EPO. She probably does not need this as an outpatient.. (7) Hypertension: Qualifiers: Hypertension type: primary hypertension Qualified Code(s): I10 - Essential (primary) hypertension Code(s): I10 - Essential (primary) hypertension Status: Chronic Assessment and Plan: Blood pressure is up and down. Continue to hold blood pressure meds. (8) Diabetic neuropathy: Code(s): E11.40 - Type 2 diabetes mellitus with diabetic neuropathy, unspecified Status: Acute Assessment and Plan: The patient has been getting gabapentin. She has asterixis which is probably due to the gabapentin. This could be causing her legs to collapse as well so will stop the gabapentin. Perhaps higher creatinine that to buildup of the gabapentin. Consider another treatment for her neuropathy such as amitriptyline or Cymbalta? Subjective Date/time seen: 09/01/22 11:44 Interval history: Mary is feeling about the same. Lying flat in bed. No chest pain. The usual shortness of breath Exam Narrative: WDWN in NAD skin no rash or subcu nodules head ncat lungs clear bilaterally cor reg no rub or gallop abd BS+ nontender and soft ext trace edema and no cyanosis. Objective Data Vital Signs Vital Signs: Vital Signs - 24 hr 08/31/22 13:05 08/31/22 13:15 08/31/22 14:00 Temperature 97.6 F Pulse Rate 101 H 96 94 Respiratory Rate 20 20 20 Blood Pressure 123/63 Pulse Oximetry 96 Oxygen Delivery 08/31/22 22:00 08/31/22 20:00 09/01/22 02:29 Temperature 98.1 F Pulse Rate 93 96 Respiratory Rate 22 H 20 Blood Pressure 150/74 H Pulse Oximetry 100 Oxygen Delivery Room Air 08/31/22 20:00 08/31/22 20:15 09/01/22 02:31 Temperature Puls
--- NOTE | 2022-09-01 11:45 | PM.DS ---
DS: Admitting Diagnosis Discharge Date Today Admitting Diagnosis (1) Generalized weakness: ?Code(s): R53.1 - Weakness ?Status:?Acute ?Assessment and Plan: Likely secondary to Parkinson disease process X syndrome.? PT and OT evaluation.? Maintain fall precautions. (2) Physical deconditioning: ?Code(s): R53.81 - Other malaise ?Status:?Acute ?Assessment and Plan: Likely multi factorial, in the setting of obesity, chronic illnesses.? PT and OT evaluation. (3) NESHA (acute kidney injury): ?Code(s): N17.9 - Acute kidney failure, unspecified DS: Discharge Diagnosis Discharge Diagnosis (1) Generalized weakness: Code(s): R53.1 - Weakness Status: Acute Assessment and Plan: Likely secondary to Parkinson disease process X syndrome. PT and OT evaluation. Maintain fall precautions. (2) NESHA (acute kidney injury): Code(s): N17.9 - Acute kidney failure, unspecified Status: Acute Assessment and Plan: Creatinine improving. Acute kidney injury likely secondary to poor oral intake. Most recent creatinine was 1.7 on 05/06/2022. Admission creatinine is 2.2. Patient has historical stage III CKD secondary to diabetes. Of note, ultrasound did not show any morphological abnormalities. We will obtain urine electrolytes. no CHF exacerbation. She is on bumetanide and losartan at home which is on hold. Patient has hyponatremia, no improvement of kidney function, blood pressure is soft diastolic blood pressure low Started normal saline IV. c./w NS iv Follow-up BMP 08/31 Cr 1.8<2.0 09/01 Cr 1.6 dc NS iv today (3) Atrial flutter: Code(s): I48.92 - Unspecified atrial flutter Status: Acute Assessment and Plan: currently rate controlled. Continue home medications. (4) Restless leg syndrome: Code(s): G25.81 - Restless legs syndrome Status: Acute Assessment and Plan: Obtain iron panel Resume home meds (5) Obstructive sleep apnea: Code(s): G47.33 - Obstructive sleep apnea (adult) (pediatric) Status: Chronic Assessment and Plan: Not on CPAP a home Monitor nocturnal pulse oximetry. (6) Anxiety: Code(s): F41.9 - Anxiety disorder, unspecified Status: Acute Assessment and Plan: Continue home meds (7) Heart failure with preserved ejection fraction: Code(s): I50.30 - Unspecified diastolic (congestive) heart failure Status: Chronic Assessment and Plan: currently asymptomatic Bumetanide and losartan during hospitalization (8) Hyperlipidemia: Qualifiers: Hyperlipidemia type: mixed hyperlipidemia Qualified Code(s): E78.2 - Mixed hyperlipidemia Code(s): E78.5 - Hyperlipidemia, unspecified Status: Acute Assessment and Plan: resume statin (9) Anemia in chronic kidney disease: Code(s): N18.9 - Chronic kidney disease, unspecified; D63.1 - Anemia in chronic kidney disease Status: Acute Assessment and Plan: Hemoglobin is stable. anemia is macrocytic and normochromic. Iron studies normal. (10) Chronic anemia: Code(s): D64.9 - Anemia, unspecified Status: Acute (11) Hyponatremia: Code(s): E87.1 - Hypo-osmolality and hyponatremia Status: Acute Assessment and Plan: chronic stable Plan Consult PT OT social work ocular care aide for urination assist in placement. Patient may benefit from rehab at discharge DS: Summary Hospital Course Reason for hospitalization: General weakness Hospital Course: Patient is a 71-year-old female with a past medical history including but not limited to obesity, restless leg syndrome, Parkinson's, CHF, COPD, diabetes, hypertension presenting with weakness.? The patient was in her usual state of health until 1 day ago.? Patient states that for the last day she has been unable to ambulate normally.? States that her legs keep buckling underneath her.? States that it buckl
[2022-09-03 16:42] LABS: Red Blood Cell Folate 951 ng/mL RBC (>280)
== END 2022-09-01 13:07 | DRG 683 ==
LOC: ANHED 18:06 → ANH3MEDSUR 20:31
PROVIDERS: Hospitalist; Internal Medicine Nephrology; Admitting Provider Internal Medicine; Emergency Provider Emergency Medicine; Visit Provider Hospitalist
DX: N17.9 Acute kidney failure, unspecified (principal); E87.1 Hypo-osmolality and hyponatremia; I13.0 Hypertensive heart and chronic kidney disease with heart failure and stage 1 through stage 4 chronic kidney disease, or unspecified chronic kidney disease; I50.32 Chronic diastolic (congestive) heart failure; I48.92 Unspecified atrial flutter; Z68.42 Body mass index [BMI] 45.0-49.9, adult; J96.10 Chronic respiratory failure, unspecified whether with hypoxia or hypercapnia; G20 Parkinson's disease; N18.32 Chronic kidney disease, stage 3b; D63.1 Anemia in chronic kidney disease; E11.22 Type 2 diabetes mellitus with diabetic chronic kidney disease; E66.9 Obesity, unspecified; E87.5 Hyperkalemia; E78.2 Mixed hyperlipidemia; E03.9 Hypothyroidism, unspecified; F41.9 Anxiety disorder, unspecified; G25.81 Restless legs syndrome; G47.33 Obstructive sleep apnea (adult) (pediatric); J44.9 Chronic obstructive pulmonary disease, unspecified; K59.09 Other constipation; K21.9 Gastro-esophageal reflux disease without esophagitis; F17.210 Nicotine dependence, cigarettes, uncomplicated; E11.40 Type 2 diabetes mellitus with diabetic neuropathy, unspecified; Z91.81 History of falling; Z90.710 Acquired absence of both cervix and uterus; Z96.653 Presence of artificial knee joint, bilateral
CPT/HCPCS: 36415; 70450; 71045; 72125; 76775; 80048; 80053; 80069; 81001; 81050; 82533; 82550; 82570; 82607; 82728; 82747; 82948; 83540; 83550; 83605; 83690; 83735; 83880; 83930; 83935; 84156; 84300; 84439; 84443; 84480; 84484; 84540; 85025; 85027; 85055; 85610; 85730; 93005; 94640; 96361; 96374; 97110; 97116; 97161; 97166; 97530; 97535; 99285; A9270; G0378; J1756; J2405; J7030

== ENCOUNTER 2023-05-17 13:49 | Inpatient (IN) | payer MEDICARE, BC, SELFPAY ==
[2023-05-17] VITALS (11 sets, daily range): BP systolic 138–161; BP diastolic 67–103; PULSE 103–118; RESP 16–22; TEMP 36.4–36.7; O2SAT 91–100; BMI 53.6
--- NOTE | ~2023-05-17 | XR_ITS ---
EXAM: XR hip BI 2V w AP pelvis DATE: 06/01/2023 15:35 HISTORY: left leg weakness . COMPARISON: None available. FINDINGS: Examination limited by body habitus and portable technique. Lumbar degenerative disc disea se. Degenerative changes in the bilateral SI joints and pubic symphysis. Mild bilateral hip osteoarth ritis. No fracture or dislocation. IMPRESSION: No acute osseous finding in the pelvis or bilateral hips. Reviewed, dictated and finalized at location K.
--- NOTE | ~2023-05-17 | CT_ITS ---
EXAMINATION: CT pelvis wo con DATE: 05/20/2023 17:10 INDICATION: Groin/labia swelling. TECHNIQUE: Computed tomography (CT) of the pelvis was performed without intravenous contrast. Automat ed exposure control and iterative reconstruction technique were employed. The dose-length product was 1350.44 mGy-cm. COMPARISON: None FINDINGS: There is subcutaneous fat stranding in the pelvis and thighs, left worse than right. There is skin thickening involving the mons and left lateral pelvis. No soft tissue gas. No abscess. There are no dilated loops of bowel. The appendix is normal. There are no pathologically enlarged lymph nod es. There is no ascites. There is mild lumbar spondylosis. IMPRESSION: 1. Subcutaneous fat stranding in the pelvis and thighs, left worse than right, consistent with edema versus inflammation. Reviewed, dictated and finalized at location A.
--- NOTE | ~2023-05-17 | XR_ITS ---
Portable chest x-ray Comparison: 05/17/2023 Clinical History: Shortness of breath Findings: There is central congestive change and probable mild interstitial edema. No definite pleur al effusions. Cardiomediastinal silhouette is stable. Bones and soft tissues are unremarkable. Impression: Central congestive change and mild interstitial edema. Correlate for atypical infection. Reviewed, dictated and finalized at [facility]. Impression: Central congestive change and mild interstitial edema. Correlate for atypical i nfection.
--- NOTE | ~2023-05-17 | XR_ITS ---
EXAMINATION: XR chest 1V portable DATE: 05/17/2023 17:16 INDICATION: Shortness of breath TECHNIQUE: frontal view of the chest was obtained. COMPARISON: None FINDINGS: The lungs are clear with no focal airspace opacities, pulmonary edema, pleural effusion or pneumothor ax. Heart size is normal. Atherosclerotic aorta. IMPRESSION: 1. No acute cardiopulmonary disease. Reviewed, dictated and finalized at location A.
--- NOTE | ~2023-05-17 | XR_ITS ---
XR abdomen/kub 1V 06/01/2023 10:53 INDICATION: Abdominal pain and constipation TECHNIQUE: KUB COMPARISON: No prior studies for comparison. FINDINGS: Bowel gas pattern is normal. Moderate colonic fecal loading. There is no evidence of free a ir, mass, organomegaly, ascites or obstruction. No abnormal calculi are seen. The bones appear inta ct. IMPRESSION: 1: No acute abdominal abnormality identified. Reviewed, dictated and finalized at location A.
--- NOTE | ~2023-05-17 | MR_ITS ---
EXAMINATION: MR brain/brain stem wo con DATE: 06/01/2023 12:34 INDICATION: Left lower limb weakness, possible right CVA TECHNIQUE: Magnetic resonance imaging (MRI) of the brain and brainstem was performed without intraven ous contrast. Sequences included sagittal and axial T1-weighted SE, axial diffusion-weighted FS EPI A SSET, axial T2*-weighted GRE, axial T2-weighted FLAIR Propeller, and axial T2-weighted Propeller. Jenna arent diffusion coefficient (ADC) maps were created. COMPARISON: 12/11/2019; CT brain 05/31/2023 FINDINGS: No abnormal restricted diffusion to suggest acute ischemic infarct. No MRI evidence of hemorrhage or extra-axial collection. No suspicious foci of susceptibility to suggest prior intraparenchymal hemorr christy. Severe confluent or patchy and confluent white matter hyperintensity, likely representing sever e small vessel ischemic disease. Mild generalized parenchymal volume loss. The basilar cisterns are p atent. Flow voids are preserved. Bilateral mastoid fluid. Nodular sphenoid and bilateral maxillary si nus mucosal thickening. Mild mucosal thickening in the frontal sinuses. Bilateral lens replacements. IMPRESSION: No acute intracranial finding. Reviewed, dictated and finalized at location K.
--- NOTE | ~2023-05-17 | US_ITS ---
EXAMINATION: US carotid duplex BI DATE: 06/01/2023 08:33 INDICATION: Cerebrovascular disease TECHNIQUE: Grayscale, color Doppler, and pulsed Doppler images of the cervical carotid arteries were obtained. The degree of vessel stenosis is placed in one of the following categories: normal, <50%, 5 0-69%, >=70% but less than near-occlusion, near-occlusion, or total occlusion. Note that percent sten osis relative to normal distal artery lumen diameter is indirectly measured from velocity measurement s as described by Patel, et al. Radiology 2003; 229:340-346. Notes: Normal: Peak systolic velocity <125 centimeters/sec and no plaque <50%. Peak systolic velocity <125 ( EDV <40; ICA/CCA PSV ratio <2.0; used these factors only a tandem lesions or low cardiac output or co ntralateral disease) 50-69 %: PSV 125-230 (EDV 40-100; ratio 2-4) >= 70% but less than near occlusion: PSV greater than 230 (EDV > 100; ratio> 4.0) Near Occlusion: PSV that is variable; markedly narrowed lumen Occlusion: Absent flow on color/spectral Doppler and no lumen on stone scale. COMPARISON: None ultrasound dated 12/11/2019. FINDINGS: RIGHT: The right common carotid artery (CCA) peak systolic velocity (PSV) is 49 cm/s. The right internal car otid artery (ICA) PSV is 70 cm/s. The right ICA end-diastolic velocity (EDV) is 15 cm/s. The right IC A/CCA PSV ratio is 1.4. The external carotid artery (ECA) PSV is 87 cm/s. There is antegrade flow in the right vertebral artery. LEFT: The left CCA PSV is 66 cm/s. The left ICA PSV is 85 cm/s. The left ICA EDV is 28 cm/s. The left ICA/C CA PSV ratio is 1.3. The ECA PSV is 131 cm/s. There is antegrade flow in the left vertebral artery. IMPRESSION: 1. Less than 50% stenosis in the right internal carotid artery by sonographic criteria. 2. Less than 50% stenosis in the left internal carotid artery by sonographic criteria. Reviewed, dictated and finalized at location A. IMPRESSION: 1. Less than 50% stenosis in the right internal carotid artery by sonographic c asad. 2. Less than 50% stenosis in the left internal carotid artery by sonographic cyndie ibrahim.
--- NOTE | ~2023-05-17 | US_ITS ---
EXAMINATION: US renal BI DATE: 05/27/2023 14:18 INDICATION: Acute kidney injury. TECHNIQUE: Multiple ultrasound grayscale images of the kidneys were obtained. COMPARISON: None. FINDINGS: Sensitivity is decreased by the patient's body habitus. The right kidney measures 12.3 x 5.0 x 6.6 cm . The left kidney measures 13.4 x 6.7 x 6.2 cm. The kidneys demonstrate normal parenchymal echogenici ty. There is no hydronephrosis. The bladder is decompressed by a De La Cruz catheter. IMPRESSION: 1. Normal kidneys. No hydronephrosis. Reviewed, dictated and finalized at location E.
--- NOTE | ~2023-05-17 | XR_ITS ---
EXAMINATION: XR abdomen/kub 1V DATE: 05/29/2023 18:56 INDICATION: Nausea and vomiting. TECHNIQUE: A supine view of the abdomen on 2 radiographs was obtained. COMPARISON: None. FINDINGS: There are no dilated loops of bowel. There is a moderate volume of stool in the colon. Calc ifications in the pelvis are likely phleboliths. IMPRESSION: 1. Nonobstructive bowel gas pattern. Reviewed, dictated and finalized at location E.
--- NOTE | ~2023-05-17 | CT_ITS ---
EXAMINATION: CT brain wo con DATE: 05/31/2023 12:31 INDICATION: Left leg weakness . TECHNIQUE: Computed tomography (CT) of the head was performed without intravenous contrast. The mA wa s adjusted according to patient size. Iterative reconstruction technique was employed. The dose-lengt h product was 681.00 mGy-cm. COMPARISON: 08/28/2022, report only. FINDINGS: No acute intracranial hemorrhage or extra-axial fluid collection. No hydrocephalus, mass, or herniation. No acute ischemic infarct. Unremarkable dural venous sinus attenuation. No acute osseous abnormality. Nodular mucosal thickening in the maxillary and sphenoid sinuses, bilateral mastoid fluid, the remain ing aerated spaces are clear. Mild atrophy and moderate chronic white matter change. Atherosclerotic intracranial calcification. Bi lateral lens replacements. IMPRESSION: No acute intracranial process. Reviewed, dictated and finalized at location K.
[2023-05-17 14:00] LABS: Glucose Point of Care 353 mg/dl (65-105)
[2023-05-17 14:11] LABS: Basophils Absolute Auto 0.1 K/mm3 (0.0-0.1); Basophils Percent Auto 0.4 % (0.2-1.2); Eosinophils Absolute Auto 0.3 K/mm3 (0-0.3); Eosinophils Percent Auto 1.6 % (0-4.4); Hematocrit 31.9 % (37.0-47.0); Hemoglobin 9.8 g/dL (12.0-15.0); Immature Granulocyte Absolute 0.09 K/mm3 (0.00-0.031); Immature Granulocyte Percent A 0.6 % (0-0.5); Lymphocytes Absolute Auto 0.53 K/mm3 (0.9-3.2); Lymphocytes Percent Auto 3.3 % (18.3-44.2); Mean Corpuscular HGB Conc 30.7 g/dl (32-36); Mean Corpuscular Hemoglobin 31.1 pg (26-34); Mean Corpuscular Volume 101.3 fl (80-100); Mean Platelet Volume 10.6 fl (7.4-10.4); Monocytes Absolute Auto 1.2 K/mm3 (0.1-0.6); Monocytes Percent Auto 7.7 % (2.6-8.5); Neutrophils Absolute Auto 13.8 K/mm3 (1.3-6.7); Neutrophils Percent Auto 86.4 % (45.5-73.1); Platelet Count Result 240 k/mm3 (150-375); Red Blood Count 3.15 M/mm3 (4.2-5.4); Red Cell Distribution Width 14.7 % (11.5-14.5); White Blood Count 15.9 K/mm3 (4.5-10.0)
[2023-05-17 14:43] LABS: Magnesium 1.9 mg/dL (1.6-2.3)
[2023-05-17 14:44] LABS: Alanine Aminotransferase 8 U/L (6-35); Albumin Level 4.2 g/dL (3.5-5.1); Alkaline Phosphatase 209 U/L (38-126); Anion Gap 6 mmol/L (4-12); Aspartate Amino Transferase 17 U/L (14-36); Bilirubin,Total 0.6 mg/dL (0.2-1.3); Blood Urea Nitrogen 26 mg/dL (7-17); Calcium 9.4 mg/dL (8.4-10.2); Carbon Dioxide 25 mmol/L (22-30); Chloride 96 mmol/L (98-107); Estimated CRCL calculation 47 ml/min; Estimated Glomerular Filt Rate 40; Glucose 340 mg/dL (65-110); Potassium 5.2 mmol/L (3.4-5.0); Sodium 127 mmol/L (137-145)
[2023-05-17 14:49] LABS: Platelet Estimate Adequate (Adequate)
[2023-05-17 14:50] LABS: Anisocytosis 1+; Hypochromasia 1+; Schistocytes None Seen
[2023-05-17 15:38] LABS: Appearance Urine Clear (Clear); Bilirubin Urine Negative (Negative); Blood Urine Negative (Negative); Color Urine Yellow (Yellow); Glucose Urine UA 3+ mg/dL (Negative); Ketones Urine Negative (Negative); Leukocyte Esterase Ur Negative LEU/UL (Negative); Nitrate Urine Negative (Negative); Protein Urine Negative (Negative); Specific Grav Ur 1.013 (1.001-1.035); Urobilinogen Urine 0.2 mg/dL (<2.0); pH Urine 5.5 (5.0-9.0)
[2023-05-17 15:49] LABS: Add Urine Microscopic? NO
[2023-05-17] MEDS: SODIUM CHLORIDE 0.9% IV 1,000 ML 999 ML IV CONT (16:51)
--- NOTE | 2023-05-17 17:07 | ED.GENADULT ---
HPI - General Adult General Chief complaint: Recheck/Abnormal Lab/Rx Stated complaint: high blood sugar Time Seen by Provider: 05/17/23 15:38 History of Present Illness HPI narrative: 72-year-old female present to the emergency department for evaluation of increased generalized fatigue. Patient reports over the last few days she has felt increasingly weak. Patient also reports increased urinary frequency. Patient states she is diabetic but never checks her blood sugars. Patient does complain of polydipsia and polyuria. patient does have a past medical history including Parkinson's, chronic kidney disease, CHF and diabetes Patient reports that she is too weak to get into her home. Related Data Home Medications Medication Instructions Recorded Confirmed atorvastatin 80 mg tablet 80 mg PO QAM 12/10/19 05/17/23 carbidopa 25 mg-levodopa 100 mg 3 tablet PO TID 12/10/19 05/17/23 tablet fluoxetine 40 mg capsule 40 mg PO BID 12/10/19 05/17/23 oxcarbazepine 300 mg tablet 300 mg PO BID 12/10/19 05/17/23 allopurinol 100 mg tablet 100 mg PO DAILY 12/12/21 05/17/23 doxepin 25 mg capsule 25 mg PO BID 12/12/21 05/17/23 empagliflozin 10 mg tablet 10 mg PO DAILY 12/12/21 05/17/23 (Jardiance) ipratropium 0.5 mg-albuterol 3 mg 3 ml inhalation Q6H 12/12/21 05/17/23 (2.5 mg base)/3 mL nebulization soln prazosin 5 mg capsule 5 mg PO HS 12/12/21 05/17/23 ropinirole 0.5 mg tablet 0.5 mg PO HS 12/12/21 05/17/23 primidone 50 mg tablet 50 mg PO BID 12/21/21 05/17/23 acetaminophen 650 mg tablet 650 mg PO Q6H PRN Pain (Scale 12/23/21 05/17/23 Score 1-3) albuterol sulfate 90 mcg/actuation 2 puff inhalation QID PRN 12/23/21 05/17/23 aerosol inhaler Shortness Of Breath Or Wheezing quetiapine 25 mg tablet 25 mg PO HS 12/23/21 05/17/23 gabapentin 100 mg PO TID 12/29/21 05/17/23 bumetanide 1 mg tablet 2 mg PO DAILY 02/15/22 05/17/23 fluvoxamine 100 mg tablet 100 mg PO QHS 02/15/22 05/17/23 amiodarone 200 mg PO DAILY 08/28/22 05/17/23 apixaban 5 mg tablet (Eliquis) 2.5 mg PO Q12HR 08/28/22 05/17/23 pantoprazole 40 mg tablet,delayed 40 mg PO QAM 08/28/22 05/17/23 release Breo Ellipta See Rx Instructions .Route .COMPLEX 09/02/22 05/17/23 Allergies Allergy/AdvReac Type Severity Reaction Status Date / Time iodine Allergy Severe Hives Verified 05/06/22 12:41 latex Allergy Severe Hives Verified 05/06/22 12:41 Contrast Media Allergy Mild Hives Uncoded 05/06/22 12:41 Review of Systems Review of Systems: All systems reviewed & are unremarkable except as noted in HPI and below PMFSH Past Medical History Medical History Acute hyperkalemia Anxiety BMI greater than 40 Chronic anemia Chronic kidney disease, stage 3 Baseline creatinine ranges between 1.2 and 1.50. Chronic obstructive pulmonary disease Depression Gastroesophageal reflux disease GI bleed (01/2010) Secondary to peptic ulcer. Heart failure with preserved ejection fraction Hyperlipidemia Hypertension Hypothyroidism Junctional rhythm Kidney stones Neuropathy Obstructive sleep apnea Patient does not use PAP therapy at nighttime. Osteoarthritis Parkinson disease Restless leg syndrome Type 2 diabetes mellitus Surgical History Surgical History History of bilateral knee arthroplasty History of hysterectomy History of sinus surgery Family History Family History Grandparent Diabetes mellitus Acute myocardial infarction Father Acute myocardial infarction Mother Acute myocardial infarction Social History Social History Social History: Surrogate decision maker: Fly Rondon, . Code status: Full code. Smoking packs per day: 1 Smoking cigarettes per day: 20.0 Years smoked: 40 Smoking pack-years: 40.00 Smoking status: Never smoke
[2023-05-17] MEDS: ALBUTEROL SULFATE NEB 2.5 MG/3 ML INH INHALATION ×2 (17:40→20:54)
[2023-05-17 17:49] LABS: Influenza A QL RT-PCR Negative (Negative); Influenza B QL RT-PCR Negative (Negative); RSV RNA, RT-PCR Negative (Negative); SARS-CoV-2 RNA PCR Negative (Negative)
[2023-05-17 18:10] LABS: Glucose Point of Care 307 mg/dl (65-105)
--- NOTE | 2023-05-17 20:09 | PM.IMHP ---
H&P: HPI History of Present Illness Date/Time: 05/17/23 20:09 Chief Complaint: WEAKNESS Narrative: THIS IS A 72-YEAR-OLD FEMALE WITH PAST MEDICAL HISTORY SIGNIFICANT FOR INSULIN-DEPENDENT DIABETES MELLITUS, HYPERTENSION, DYSLIPIDEMIA, RESTLESS LEG SYNDROME, CHRONIC KIDNEY DISEASE, CHRONIC OBSTRUCTIVE PULMONARY DISEASE, GERD, HEART FAILURE, OBSTRUCTIVE SLEEP APNEA, PARKINSON'S DISEASE. PATIENT PRESENTED TO THE EMERGENCY ROOM DUE TO GENERALIZED WEAKNESS, LOW SODIUM, [place] [id number]. AT THE TIME OF MY VISIT PATIENT WAS UNABLE TO REALLY GIVE MUCH DETAIL INTO HER HISTORY SHE IS ORIENTED TO PERSON ,PLACE HOWEVER CAN NOT REALLY GIVE MUCH DETAIL MEANINGFUL TO HISTORY. SHE WAS FOUND TO HAVE A SODIUM OF 127 POTASSIUM OF 5.2 CREATININE OF 1.3, PATIENT TESTED NEGATIVE FOR INFLUENZA TYPE A, INFLUENZA TYPE B RSV AND COVID. EXAMINATION: XR chest 1V portable DATE: 05/17/2023 17:16 INDICATION: Shortness of breath TECHNIQUE: frontal view of the chest was obtained. COMPARISON: None FINDINGS: The lungs are clear with no focal airspace opacities, pulmonary edema, pleural effusion or pneumothorax. Heart size is normal. Atherosclerotic aorta. IMPRESSION: 1. No acute cardiopulmonary disease. Review of Systems Review of Systems: ROS unobtainable: Yes unobtainable due to mental status ( CONFUSION/DELIRIUM) [facility] Past Medical History Medical History Acute hyperkalemia Anxiety BMI greater than 40 Chronic anemia Chronic kidney disease, stage 3 Baseline creatinine ranges between 1.2 and 1.50. Chronic obstructive pulmonary disease Depression Gastroesophageal reflux disease GI bleed (01/2010) Secondary to peptic ulcer. Heart failure with preserved ejection fraction Hyperlipidemia Hypertension Hypothyroidism Junctional rhythm Kidney stones Neuropathy Obstructive sleep apnea Patient does not use PAP therapy at nighttime. Osteoarthritis Parkinson disease Restless leg syndrome Type 2 diabetes mellitus Surgical History Surgical History History of bilateral knee arthroplasty History of hysterectomy History of sinus surgery Family History Family History Grandparent Diabetes mellitus Acute myocardial infarction Father Acute myocardial infarction Mother Acute myocardial infarction Social History Social History Social History: Surrogate decision maker: Fly Rondon, . Code status: Full code. Smoking packs per day: 1 Smoking cigarettes per day: 20.0 Years smoked: 40 Smoking pack-years: 40.00 Smoking status: Never smoker Second hand tobacco smoke exposure: No Alcohol intake: never Substance use: never Substance use type: does not use Do You Feel Safe in your Home?: Yes Lack of Transportation: No Lack of Food: Never True Current Housing: I Have Housing Concerned About Future Housing: No Difficulty Paying Gas/Electric Bills: No Difficulty Paying for Meds: No Currently Unemployed: No Education: High School Diploma/GED Difficulty w/ Childcare or Family Care: No Additional living arrangements comments: Resides in [place] with her . Occupation/Education: retired Spiritual care concerns: No Meds Home Medications and Allergies Home Medications Medication Instructions Recorded Confirmed Type atorvastatin 80 mg tablet 80 mg PO QAM 12/10/19 05/17/23 History carbidopa 25 mg-levodopa 100 mg 3 tablet PO TID 12/10/19 05/17/23 History tablet fluoxetine 40 mg capsule 40 mg PO BID 12/10/19 05/17/23 History oxcarbazepine 300 mg tablet 300 mg PO BID 12/10/19 05/17/23 History allopurinol 100 mg tablet 100 mg PO DAILY 12/12/21 05/17/23 History doxepin 25 mg capsule 25 mg PO BID 12/12/21 05/17/23 History empaglif
--- NOTE | 2023-05-17 20:20 | ADMGEN ---
This patient, Jenni Rondon, was admitted to IMU Room 1934 Patient/family oriented to hospital policies and general routines including ID bracelet, bed and alarms, visiting hours, pain management, procedures, bathroom and other care routines, personal items, smoking policy, room service/diet, and visiting hours. Information on how to activate the Rapid Response Team has been discussed. Patient/Family are encouraged to report perceived risks to care and to ask questions if they do not understand what they are told or what they should do.
[2023-05-17 20:37] LABS: Glucose Point of Care 315 mg/dl (65-105)
[2023-05-17 23:58] LABS: Glucose Point of Care 370 mg/dl (65-105)
[2023-05-18] VITALS (22 sets, daily range): BP systolic 100–130; BP diastolic 51–69; PULSE 101–115; RESP 12–24; TEMP 36.3–36.8; O2SAT 90–99
[2023-05-18] MEDS: QUEtiapine FUMARATE 25 MG TABLET PO ×2 (00:43→20:13)
[2023-05-18] MEDS: APIXABAN 2.5 MG TABLET PO ×3 (00:43→20:13)
[2023-05-18] MEDS: DOXEPIN HCL 25 MG CAPSULE PO ×3 (00:43→20:13)
[2023-05-18] MEDS: FLUoxetine HCL 20 MG CAPSULE 40 MG PO ×3 (00:43→20:13)
[2023-05-18] MEDS: INSULIN HUMAN REGULAR (*BKC) 100 UNITS/ML SUB-Q (00:46)
[2023-05-18] MEDS: OXcarbazepine 300 MG TABLET PO ×3 (00:50→20:13)
[2023-05-18] MEDS: rOPINIRole HCL 0.5 MG TABLET PO ×2 (00:50→20:13)
[2023-05-18] MEDS: PRAZOSIN HCL 5 MG CAPSULE PO ×2 (00:50→20:13)
[2023-05-18] MEDS: ACETAMINOPHEN 325 MG TABLET 650 MG BY MOUTH ×2 (00:50→12:38)
[2023-05-18] MEDS: IPRATROPIUM 0.5 MG/ALBUTEROL SULFATE 2.5 MG AMPUL.NEB 3 ML INHALATION ×4 (02:16→20:18)
[2023-05-18] MEDS: FLUTICASONE/SALMETEROL 115-21 MCG INHALER 1 PUFF 2 PUFF INHALATION ×2 (08:04→20:19)
[2023-05-18 08:09] LABS: Glucose Point of Care 242 mg/dl (65-105)
[2023-05-18] MEDS: PRIMIDONE 50 MG TABLET PO ×2 (09:05→16:45)
[2023-05-18] MEDS: ATORVASTATIN 40 MG TABLET 80 MG PO (09:05)
[2023-05-18] MEDS: hydrALAZINE HCL 25 MG TABLET PO ×3 (09:06→16:45)
[2023-05-18] MEDS: CARBIDOPA/LEVODOPA 25/100 MG TABLET 3 TABLET PO ×3 (09:06→16:44)
[2023-05-18] MEDS: GABAPENTIN 100 MG CAPSULE PO ×3 (09:06→16:45)
[2023-05-18] MEDS: PANTOPRAZOLE 40 MG TABLET PO (09:07)
[2023-05-18] MEDS: allopurinoL 100 MG TABLET PO (09:07)
[2023-05-18] MEDS: AMIODARONE HCL 200 MG TABLET BY MOUTH (09:07)
[2023-05-18 11:42] LABS: Glucose Point of Care 431 mg/dl (65-105)
--- NOTE | 2023-05-18 11:45 | PM.IMPN ---
Progress Note: A&P Assessment and Plan (1) Acute hyperkalemia: Code(s): E87.5 - Hyperkalemia Status: Acute (2) Hyperglycemia: Code(s): R73.9 - Hyperglycemia, unspecified Status: Acute (3) Generalized weakness: Code(s): R53.1 - Weakness Status: Acute (4) Acute hyponatremia: Code(s): E87.1 - Hypo-osmolality and hyponatremia Status: Acute (5) Parkinson disease: Code(s): G20 - Parkinson's disease Status: Acute (6) Atrial fibrillation: Code(s): I48.91 - Unspecified atrial fibrillation Status: Acute (7) Chronic kidney disease, stage 3: Qualifiers: Chronic kidney disease stage 3 subtype: stage 3a (GFR 45-59) Qualified Code(s): N18.31 - Chronic kidney disease, stage 3a Code(s): N18.30 - Chronic kidney disease, stage 3 unspecified Status: Acute (8) NESHA (acute kidney injury): Code(s): N17.9 - Acute kidney failure, unspecified Status: Acute (9) Morbid obesity with BMI of 50.0-59.9, adult: Code(s): E66.01 - Morbid (severe) obesity due to excess calories; Z68.43 - Body mass index [BMI] 50.0-59.9, adult Status: Acute Plan This is a 72-year-old female with weakness and generalized fatigue over past few days. She also reported increased urinary frequency she is diabetic but has not been on occasions. She also complain of polydipsia and polyuria. Her past medical history includes Parkinson's disease chronic kidney disease congestive heart failure and diabetes. Still lives at home with her and gets around with a walker. She reported that her blood sugar has been running a high lately she is also on chronic oxygen at home since past few years for her underlying congestive heart failure. In the ED she was bit tachycardic but afebrile EKG with sinus tachycardia. Chest x-ray no evidence of pneumonia. WBC count 15.99.8 suggesting anemia sodium was down to 127 however sugar of 340. Potassium was high at 5.2 creatinine of 1.3 A1c came back at 12. Beta hydroxybutyrate was normal at 0.2 alkaline phosphatase was elevated however other LFTs were normal. Urinalysis was negative for infection. Influenza RSV and COVID was negative. She is admitted for dehydration received 1 L fluid in the ER she still remains a bit tachycardic. Her blood sugars still high. Will initiated basal bolus insulin with patient. Will have signals analyst consulted. DVT prophylaxis on apixaban. Cautious hydration due to history of congestive heart failure. Underlying CKD stage 3 continue to monitor. Hyponatremia mild Hyperkalemia Chronic respiratory failure on home oxygen Chronic diastolic congestive heart failure. Chronic anemia chin hyperlipidemia peripheral neuropathy/chronic constipation/COPD/Parkinson's disease/anxiety disorder/gout Subjective Date/time seen: 05/18/23 11:45 Interval history: Feeling better. No new complaints. Denies any chest pain or shortness of breath Review of Systems Review of Systems: All systems reviewed & are unremarkable except as noted in HPI and below Exam Narrative: ?APPEARANCE: ill-appearing not in acute distress HEAD: normocephalic, atraumatic. EYES: PERRLA/EOMI, conjunctivae clear. NOSE: Normal no drainage THROAT: Pharynx clear, no exudate. NECK: Supple. No adenopathy, no masses. RESPIRATORY: Airway patent, respirations nonlabored. Clear to auscultation bilaterally, no rales, rhonchi, wheezing. CARDIOVASCULAR: Regular rate and rhythm without murmurs rubs or gallops. ABDOMINAL: Soft, nontender, nondistended, normal bowel sounds MUSCULOSKELETAL: Moves all extremities. Strength/ROM intact, No edema, No calf tenderness. NEURO: Alert. Cranial nerves II through XII intact.? grossly intact SKIN: Warm, dry. Normal Color Objective Data Vital Signs Vital Signs: Vital Signs - 24 hr 05/17/23 13:46 05/17/23 14:51 05/17/23 17:06 Temperature 98.1 F Pulse Rate 111 H 115 H 113 H Respirator
[2023-05-18 12:13] LABS: Basophils Absolute Auto 0.1 K/mm3 (0.0-0.1); Basophils Percent Auto 0.3 % (0.2-1.2); Eosinophils Absolute Auto 0.1 K/mm3 (0-0.3); Eosinophils Percent Auto 0.4 % (0-4.4); Hematocrit 28.2 % (37.0-47.0); Hemoglobin 8.6 g/dL (12.0-15.0); Immature Granulocyte Absolute 0.08 K/mm3 (0.00-0.031); Immature Granulocyte Percent A 0.5 % (0-0.5); Lymphocytes Absolute Auto 0.69 K/mm3 (0.9-3.2); Lymphocytes Percent Auto 4.2 % (18.3-44.2); Mean Corpuscular HGB Conc 30.5 g/dl (32-36); Mean Corpuscular Hemoglobin 31.4 pg (26-34); Mean Corpuscular Volume 102.9 fl (80-100); Mean Platelet Volume 10.7 fl (7.4-10.4); Monocytes Absolute Auto 1.3 K/mm3 (0.1-0.6); Monocytes Percent Auto 7.8 % (2.6-8.5); Neutrophils Absolute Auto 14.4 K/mm3 (1.3-6.7); Neutrophils Percent Auto 86.8 % (45.5-73.1); Platelet Count Result 201 k/mm3 (150-375); Red Blood Count 2.74 M/mm3 (4.2-5.4); White Blood Count 16.6 K/mm3 (4.5-10.0)
[2023-05-18 12:24] LABS: Alanine Aminotransferase 7 U/L (6-35); Albumin Level 3.4 g/dL (3.5-5.1); Alkaline Phosphatase 167 U/L (38-126); Anion Gap 2 mmol/L (4-12); Aspartate Amino Transferase 13 U/L (14-36); Bilirubin,Total 0.6 mg/dL (0.2-1.3); Blood Urea Nitrogen 25 mg/dL (7-17); Calcium 8.8 mg/dL (8.4-10.2); Carbon Dioxide 26 mmol/L (22-30); Chloride 97 mmol/L (98-107); Estimated CRCL calculation 44 ml/min; Estimated Glomerular Filt Rate 37; Glucose 444 mg/dL (65-110); Potassium 4.7 mmol/L (3.4-5.0); Sodium 125 mmol/L (137-145)
[2023-05-18] MEDS: INSULIN ASPART (*BKC) 100 UNITS/ML 8 UNITS SUB-Q ×2 (12:42→16:46)
[2023-05-18] MEDS: INSULIN GLARGINE (*BKC) 100 UNITS/ML 20 UNITS SUB-Q (12:46)
[2023-05-18] MEDS: SODIUM CHLORIDE 0.9% IV 500 ML 50 ML IV CONT (12:58)
[2023-05-18] MEDS: INSULIN ASPART (*BKC) 100 UNITS/ML SUB-Q ×2 (13:04→16:39)
--- NOTE | 2023-05-18 13:11 | PC.NURSE ---
Dr. Madden notified of the pts elevated blood glucose with new intervention given. Spoke with Dr. Madden POC reviewed with New order given. Per Dr. Madden T.O.R.B 1.) give Aspart 5 units 2.) Aspart 8 units 3.) Lantus 20 units.
[2023-05-18] MEDS: FLUCONAZOLE 100 MG TABLET PO (15:43)
[2023-05-18 16:09] LABS: Glucose Point of Care 367 mg/dl (65-105)
[2023-05-18] MEDS: MAGNES & ALUM HYD/SIMETH/DIPHENHYD/LIDOCAINE 119 ML MOUTHWASH BY MOUTH ×2 (16:36→20:00)
[2023-05-18] MEDS: NYSTATIN 100,000 UNITS/ML SUSP 5 ML ORAL.SUSP PO ×2 (16:36→20:00)
[2023-05-18 20:05] LABS: Glucose Point of Care 240 mg/dl (65-105)
[2023-05-19] VITALS (17 sets, daily range): BP systolic 120–145; BP diastolic 58–89; PULSE 74–114; RESP 16–24; TEMP 36.5–37.8; O2SAT 90–100
[2023-05-19] MEDS: MAGNES & ALUM HYD/SIMETH/DIPHENHYD/LIDOCAINE 119 ML MOUTHWASH BY MOUTH ×6 (00:08→20:30)
[2023-05-19] MEDS: IPRATROPIUM 0.5 MG/ALBUTEROL SULFATE 2.5 MG AMPUL.NEB 3 ML INHALATION ×4 (03:03→20:03)
[2023-05-19 04:34] LABS: Basophils Percent Auto 0.3 % (0.2-1.2); Eosinophils Absolute Auto 0.2 K/mm3 (0-0.3); Eosinophils Percent Auto 1.4 % (0-4.4); Hemoglobin 9.1 g/dL (12.0-15.0); Immature Granulocyte Absolute 0.09 K/mm3 (0.00-0.031); Immature Granulocyte Percent A 0.6 % (0-0.5); Lymphocytes Absolute Auto 0.74 K/mm3 (0.9-3.2); Lymphocytes Percent Auto 4.8 % (18.3-44.2); Mean Corpuscular HGB Conc 30.3 g/dl (32-36); Mean Corpuscular Hemoglobin 30.8 pg (26-34); Mean Corpuscular Volume 101.7 fl (80-100); Mean Platelet Volume 10.3 fl (7.4-10.4); Monocytes Absolute Auto 1.2 K/mm3 (0.1-0.6); Monocytes Percent Auto 7.7 % (2.6-8.5); Neutrophils Absolute Auto 13.2 K/mm3 (1.3-6.7); Neutrophils Percent Auto 85.2 % (45.5-73.1); Platelet Count Result 200 k/mm3 (150-375); Red Blood Count 2.95 M/mm3 (4.2-5.4); Red Cell Distribution Width 14.8 % (11.5-14.5); White Blood Count 15.5 K/mm3 (4.5-10.0)
[2023-05-19 04:46] LABS: Alanine Aminotransferase 8 U/L (6-35); Albumin Level 3.7 g/dL (3.5-5.1); Alkaline Phosphatase 174 U/L (38-126); Anion Gap 5 mmol/L (4-12); Aspartate Amino Transferase 14 U/L (14-36); Bilirubin,Total 0.5 mg/dL (0.2-1.3); Blood Urea Nitrogen 26 mg/dL (7-17); Calcium 9.1 mg/dL (8.4-10.2); Carbon Dioxide 26 mmol/L (22-30); Chloride 97 mmol/L (98-107); Estimated CRCL calculation 39 ml/min; Estimated Glomerular Filt Rate 32; Glucose 296 mg/dL (65-110); Magnesium 2.1 mg/dL (1.6-2.3); Potassium 5.1 mmol/L (3.4-5.0); Sodium 128 mmol/L (137-145)
[2023-05-19 05:01] LABS: Anisocytosis 1+; Microcytosis 1+ (NORMAL); Platelet Clumps Present; Platelet Estimate Adequate (Adequate)
[2023-05-19 05:02] LABS: Schistocytes None Seen
[2023-05-19] MEDS: FLUTICASONE/SALMETEROL 115-21 MCG INHALER 1 PUFF 2 PUFF INHALATION ×2 (07:36→20:04)
[2023-05-19 08:01] LABS: Glucose Point of Care 260 mg/dl (65-105)
[2023-05-19] MEDS: ATORVASTATIN 40 MG TABLET 80 MG PO (10:00)
[2023-05-19] MEDS: FLUoxetine HCL 20 MG CAPSULE 40 MG PO ×2 (10:00→20:32)
[2023-05-19] MEDS: hydrALAZINE HCL 25 MG TABLET PO ×3 (10:00→18:29)
[2023-05-19] MEDS: INSULIN GLARGINE (*BKC) 100 UNITS/ML 20 UNITS SUB-Q (10:00)
[2023-05-19] MEDS: PRIMIDONE 50 MG TABLET PO ×2 (10:00→18:30)
[2023-05-19] MEDS: OXcarbazepine 300 MG TABLET PO ×2 (10:00→20:32)
[2023-05-19] MEDS: NYSTATIN 100,000 UNITS/ML SUSP 5 ML ORAL.SUSP PO ×4 (10:00→20:29)
[2023-05-19] MEDS: CARBIDOPA/LEVODOPA 25/100 MG TABLET 3 TABLET PO ×3 (10:00→18:29)
[2023-05-19] MEDS: APIXABAN 2.5 MG TABLET PO ×2 (10:00→20:32)
[2023-05-19] MEDS: AMIODARONE HCL 200 MG TABLET BY MOUTH (10:00)
[2023-05-19] MEDS: PANTOPRAZOLE 40 MG TABLET PO (10:00)
[2023-05-19] MEDS: INSULIN ASPART (*BKC) 100 UNITS/ML 8 UNITS SUB-Q ×2 (10:00→12:54)
[2023-05-19] MEDS: GABAPENTIN 100 MG CAPSULE PO ×3 (10:00→18:29)
[2023-05-19] MEDS: INSULIN ASPART (*BKC) 100 UNITS/ML SUB-Q ×3 (10:00→17:06)
[2023-05-19] MEDS: allopurinoL 100 MG TABLET PO (10:00)
[2023-05-19] MEDS: DOXEPIN HCL 25 MG CAPSULE PO ×2 (10:00→20:32)
[2023-05-19] MEDS: FLUCONAZOLE 100 MG TABLET PO (10:00)
[2023-05-19 12:54] LABS: Glucose Point of Care 346 mg/dl (65-105)
--- NOTE | 2023-05-19 15:26 | PM.IMPN ---
Progress Note: A&P Assessment and Plan (1) Acute hyperkalemia: Code(s): E87.5 - Hyperkalemia Status: Acute (2) Hyperglycemia: Code(s): R73.9 - Hyperglycemia, unspecified Status: Acute (3) Generalized weakness: Code(s): R53.1 - Weakness Status: Acute (4) Acute hyponatremia: Code(s): E87.1 - Hypo-osmolality and hyponatremia Status: Acute (5) Parkinson disease: Code(s): G20 - Parkinson's disease Status: Acute (6) Atrial fibrillation: Code(s): I48.91 - Unspecified atrial fibrillation Status: Acute (7) Chronic kidney disease, stage 3: Qualifiers: Chronic kidney disease stage 3 subtype: stage 3a (GFR 45-59) Qualified Code(s): N18.31 - Chronic kidney disease, stage 3a Code(s): N18.30 - Chronic kidney disease, stage 3 unspecified Status: Acute (8) NESHA (acute kidney injury): Code(s): N17.9 - Acute kidney failure, unspecified Status: Acute (9) Morbid obesity with BMI of 50.0-59.9, adult: Code(s): E66.01 - Morbid (severe) obesity due to excess calories; Z68.43 - Body mass index [BMI] 50.0-59.9, adult Status: Acute Plan This is a 72-year-old female with weakness and generalized fatigue over past few days. She also reported increased urinary frequency she is diabetic but has not been on occasions. She also complain of polydipsia and polyuria. Her past medical history includes Parkinson's disease chronic kidney disease congestive heart failure and diabetes. Still lives at home with her and gets around with a walker. She reported that her blood sugar has been running a high lately she is also on chronic oxygen at home since past few years for her underlying congestive heart failure. In the ED she was bit tachycardic but afebrile EKG with sinus tachycardia. Chest x-ray no evidence of pneumonia. WBC count 15.99.8 suggesting anemia sodium was down to 127 however sugar of 340. Potassium was high at 5.2 creatinine of 1.3 A1c came back at 12. Beta hydroxybutyrate was normal at 0.2. Alkaline phosphatase was elevated however other LFTs were normal. Urinalysis was negative for infection. Influenza RSV and COVID was negative. She is admitted for dehydration received 1 L fluid in the ER she still remains a bit tachycardic. Received another IV fluid. Her blood sugars still high. Initiated on insulin basal bolus regimen. ict educator consultation in a.m.. DVT prophylaxis on apixaban. Cautious hydration due to history of congestive heart failure. Underlying CKD stage 3 continue to monitor. Hyponatremia mild which continues to improve as improvement in hyperglycemia. Severe hyperglycemia adjust insulin as needed Hyperkalemia Chronic respiratory failure on home oxygen Chronic diastolic congestive heart failure. Chronic anemia chin hyperlipidemia peripheral neuropathy/chronic constipation/COPD/Parkinson's disease/anxiety disorder/gout Subjective Date/time seen: 05/19/23 15:26 Interval history: No overnight events. Patient feels better today. Blood sugar trend reviewed. Review of Systems Review of Systems: All systems reviewed & are unremarkable except as noted in HPI and below Exam Narrative: ?APPEARANCE: ill-appearing not in acute distress HEAD: normocephalic, atraumatic. EYES: PERRLA/EOMI, conjunctivae clear. NOSE: Normal no drainage THROAT: Pharynx clear, no exudate. NECK: Supple. No adenopathy, no masses. RESPIRATORY: Airway patent, respirations nonlabored. Clear to auscultation bilaterally, no rales, rhonchi, wheezing. CARDIOVASCULAR: Regular rate and rhythm without murmurs rubs or gallops. ABDOMINAL: Soft, nontender, nondistended, normal bowel sounds MUSCULOSKELETAL: Moves all extremities. Strength/ROM intact, No edema, No calf tenderness. NEURO: Alert. Cranial nerves II through XII intact.? grossly intact SKIN: Warm, dry. Normal Color Objective Data Vital Signs Vital Signs: Vital
[2023-05-19 16:27] LABS: Glucose Point of Care 229 mg/dl (65-105)
[2023-05-19] MEDS: INSULIN ASPART (*BKC) 100 UNITS/ML 12 UNITS SUB-Q (17:05)
[2023-05-19 20:24] LABS: Glucose Point of Care 200 mg/dl (65-105)
[2023-05-19] MEDS: QUEtiapine FUMARATE 25 MG TABLET PO (20:32)
[2023-05-19] MEDS: PRAZOSIN HCL 5 MG CAPSULE PO (20:32)
[2023-05-19] MEDS: MICONAZOLE NITRATE 2% VAGINAL CREAM 45 GM TUBE 1 APPFUL VAGINAL (21:20)
[2023-05-19] MEDS: rOPINIRole HCL 0.5 MG TABLET PO (21:20)
--- NOTE | 2023-05-19 21:54 | PC.NURSE ---
This patient, Jenni Rondon, was transferred to [[id number] ] on 05/19/23 at 2154. Personal belongings sent with patient. Report given to [ Melvina MARIEE]. Appropriate documentation sent with patient.
[2023-05-20] VITALS (17 sets, daily range): BP systolic 116–141; BP diastolic 57–70; PULSE 102–111; RESP 17–18; TEMP 36.5–37.1; O2SAT 90–94; BMI 53.3
[2023-05-20 05:44] LABS: Basophils Percent Auto 0.3 % (0.2-1.2); Eosinophils Absolute Auto 0.1 K/mm3 (0-0.3); Eosinophils Percent Auto 0.8 % (0-4.4); Hematocrit 27.7 % (37.0-47.0); Hemoglobin 8.4 g/dL (12.0-15.0); Immature Granulocyte Absolute 0.11 K/mm3 (0.00-0.031); Immature Granulocyte Percent A 0.8 % (0-0.5); Lymphocytes Absolute Auto 0.86 K/mm3 (0.9-3.2); Mean Corpuscular HGB Conc 30.3 g/dl (32-36); Mean Corpuscular Hemoglobin 30.8 pg (26-34); Mean Corpuscular Volume 101.5 fl (80-100); Mean Platelet Volume 11.3 fl (7.4-10.4); Monocytes Absolute Auto 1.4 K/mm3 (0.1-0.6); Monocytes Percent Auto 9.5 % (2.6-8.5); Neutrophils Absolute Auto 11.8 K/mm3 (1.3-6.7); Neutrophils Percent Auto 82.6 % (45.5-73.1); Platelet Count Result 190 k/mm3 (150-375); Red Blood Count 2.73 M/mm3 (4.2-5.4); Red Cell Distribution Width 14.5 % (11.5-14.5); White Blood Count 14.3 K/mm3 (4.5-10.0)
[2023-05-20] MEDS: MAGNES & ALUM HYD/SIMETH/DIPHENHYD/LIDOCAINE 119 ML MOUTHWASH BY MOUTH ×4 (05:47→21:26)
[2023-05-20 05:58] LABS: Albumin Level 3.4 g/dL (3.5-5.1); Alkaline Phosphatase 150 U/L (38-126); Anion Gap 3 mmol/L (4-12); Aspartate Amino Transferase 12 U/L (14-36); Bilirubin,Total 0.5 mg/dL (0.2-1.3); Blood Urea Nitrogen 24 mg/dL (7-17); Calcium 8.7 mg/dL (8.4-10.2); Carbon Dioxide 26 mmol/L (22-30); Chloride 98 mmol/L (98-107); Estimated CRCL calculation 38 ml/min; Estimated Glomerular Filt Rate 32; Glucose 239 mg/dL (65-110); Potassium 4.6 mmol/L (3.4-5.0); Sodium 127 mmol/L (137-145)
--- NOTE | 2023-05-20 06:33 | PCCARD ---
CANCELLED EGK ORDERED 15:09 IT WASN'T DONE. RN CHARTED CARDIAC TELEMETRY 16:00
[2023-05-20] MEDS: FLUTICASONE/SALMETEROL 115-21 MCG INHALER 1 PUFF 2 PUFF INHALATION ×2 (07:54→20:12)
[2023-05-20 08:10] LABS: Alanine Aminotransferase < 6 U/L (6-35)
[2023-05-20 08:15] LABS: Glucose Point of Care 274 mg/dl (65-105)
[2023-05-20] MEDS: DOXEPIN HCL 25 MG CAPSULE PO ×2 (10:31→21:26)
[2023-05-20] MEDS: CARBIDOPA/LEVODOPA 25/100 MG TABLET 3 TABLET PO ×3 (10:34→18:10)
[2023-05-20] MEDS: FLUoxetine HCL 20 MG CAPSULE 40 MG PO ×2 (10:34→21:26)
[2023-05-20] MEDS: OXcarbazepine 300 MG TABLET PO ×2 (10:34→21:26)
[2023-05-20] MEDS: allopurinoL 100 MG TABLET PO (10:35)
[2023-05-20] MEDS: GABAPENTIN 100 MG CAPSULE PO ×3 (10:35→18:09)
[2023-05-20] MEDS: ATORVASTATIN 40 MG TABLET 80 MG PO (10:35)
[2023-05-20] MEDS: hydrALAZINE HCL 25 MG TABLET PO ×3 (10:35→18:09)
[2023-05-20] MEDS: AMIODARONE HCL 200 MG TABLET BY MOUTH (10:35)
[2023-05-20] MEDS: ACETAMINOPHEN 325 MG TABLET 650 MG BY MOUTH (10:36)
[2023-05-20] MEDS: APIXABAN 2.5 MG TABLET PO ×2 (10:36→21:26)
[2023-05-20] MEDS: PRIMIDONE 50 MG TABLET PO ×2 (10:36→18:09)
[2023-05-20] MEDS: PANTOPRAZOLE 40 MG TABLET PO (10:36)
[2023-05-20] MEDS: FLUCONAZOLE 100 MG TABLET PO (10:36)
[2023-05-20] MEDS: INSULIN ASPART (*BKC) 100 UNITS/ML 12 UNITS SUB-Q ×3 (10:37→18:10)
[2023-05-20] MEDS: INSULIN ASPART (*BKC) 100 UNITS/ML SUB-Q ×2 (10:38→12:43)
[2023-05-20] MEDS: INSULIN GLARGINE (*BKC) 100 UNITS/ML 24 UNITS SUB-Q (10:38)
--- NOTE | 2023-05-20 12:05 | PM.IMPN ---
Progress Note: A&P Assessment and Plan (1) Acute hyperkalemia: Code(s): E87.5 - Hyperkalemia Status: Acute (2) Hyperglycemia: Code(s): R73.9 - Hyperglycemia, unspecified Status: Acute (3) Generalized weakness: Code(s): R53.1 - Weakness Status: Acute (4) Acute hyponatremia: Code(s): E87.1 - Hypo-osmolality and hyponatremia Status: Acute (5) Parkinson disease: Code(s): G20 - Parkinson's disease Status: Acute (6) Atrial fibrillation: Code(s): I48.91 - Unspecified atrial fibrillation Status: Acute (7) Chronic kidney disease, stage 3: Qualifiers: Chronic kidney disease stage 3 subtype: stage 3a (GFR 45-59) Qualified Code(s): N18.31 - Chronic kidney disease, stage 3a Code(s): N18.30 - Chronic kidney disease, stage 3 unspecified Status: Acute (8) NESHA (acute kidney injury): Code(s): N17.9 - Acute kidney failure, unspecified Status: Acute (9) Morbid obesity with BMI of 50.0-59.9, adult: Code(s): E66.01 - Morbid (severe) obesity due to excess calories; Z68.43 - Body mass index [BMI] 50.0-59.9, adult Status: Acute Plan This is a 72-year-old female with weakness and generalized fatigue over past few days. She also reported increased urinary frequency she is diabetic but has not been on occasions. She also complain of polydipsia and polyuria. Her past medical history includes Parkinson's disease chronic kidney disease congestive heart failure and diabetes. Still lives at home with her and gets around with a walker. She reported that her blood sugar has been running a high lately she is also on chronic oxygen at home since past few years for her underlying congestive heart failure. In the ED she was bit tachycardic but afebrile EKG with sinus tachycardia. Chest x-ray no evidence of pneumonia. WBC count 15.99.8 suggesting anemia sodium was down to 127 however sugar of 340. Potassium was high at 5.2 creatinine of 1.3 A1c came back at 12. Beta hydroxybutyrate was normal at 0.2. Alkaline phosphatase was elevated however other LFTs were normal. Urinalysis was negative for infection. Influenza RSV and COVID was negative. She is admitted for dehydration received 1 L fluid in the ER she still remains a bit tachycardic. Received another IV fluid. Her blood sugars still high. Initiated on insulin basal bolus regimen. coding educator consultation in a.m. DVT prophylaxis on apixaban. Cautious hydration due to history of congestive heart failure. Underlying CKD stage 3; continue to monitor. Labial swelling get pelvis rule out any underlying abscess. Start Ancef leukocytosis persistent Hyponatremia mild which continues to improve as improvement in hyperglycemia. Severe hyperglycemia adjust insulin as needed Hyperkalemia Chronic respiratory failure on home oxygen Chronic diastolic congestive heart failure. Chronic anemia chin hyperlipidemia peripheral neuropathy/chronic constipation/COPD/Parkinson's disease/anxiety disorder/gout Subjective Date/time seen: 05/20/23 12:05 Interval history: No overnight event. Complains of swelling in her left groin hurting in that area next afebrile Review of Systems Review of Systems: All systems reviewed & are unremarkable except as noted in HPI and below Exam Narrative: ?APPEARANCE: ill-appearing not in acute distress HEAD: normocephalic, atraumatic. EYES: PERRLA/EOMI, conjunctivae clear. NOSE: Normal no drainage THROAT: Pharynx clear, no exudate. NECK: Supple. No adenopathy, no masses. RESPIRATORY: Airway patent, respirations nonlabored. Clear to auscultation bilaterally, no rales, rhonchi, wheezing. CARDIOVASCULAR: Regular rate and rhythm without murmurs rubs or gallops. ABDOMINAL: Soft, nontender, nondistended, normal bowel sounds MUSCULOSKELETAL: Moves all extremities. Strength/ROM intact, No edema, No calf tenderness. NEURO: Alert. Cranial nerves II through
[2023-05-20 12:09] LABS: Glucose Point of Care 309 mg/dl (65-105)
[2023-05-20] MEDS: ceFAZolin 1 GM/NS 50 ML 1 GM/50 ML BAG IVPB ×2 (12:42→21:25)
[2023-05-20] MEDS: NYSTATIN 100,000 UNITS/ML SUSP 5 ML ORAL.SUSP PO ×3 (12:43→23:07)
[2023-05-20] MEDS: HYDROcodone/acetaminophen (*CRX) 5-325 MG TABLET 1 TAB PO ×2 (12:55→18:08)
[2023-05-20] MEDS: BISACODYL 10 MG SUPPOSITORY RECTAL (13:30)
--- NOTE | 2023-05-20 14:29 | PCPTNOTE ---
RN with pt at this time, unable to be seen for PT. Will cont per POC
--- NOTE | 2023-05-20 15:14 | PCOTNOTE ---
The patient treatment was not able to be completed. Patient and her are communicating with tobacco prevention health educator. Will plan to continue treatment per plan of care.
[2023-05-20 17:30] LABS: Glucose Point of Care 193 mg/dl (65-105)
[2023-05-20] MEDS: diphenhydrAMINE HCl INJ 50 MG/ML VIAL 25 MG IV PUSH (18:10)
[2023-05-20 21:05] LABS: Glucose Point of Care 258 mg/dl (65-105)
[2023-05-20] MEDS: QUEtiapine FUMARATE 25 MG TABLET PO (21:26)
[2023-05-20] MEDS: rOPINIRole HCL 0.5 MG TABLET PO (21:26)
[2023-05-20] MEDS: PRAZOSIN HCL 5 MG CAPSULE PO (21:26)
[2023-05-20] MEDS: MICONAZOLE NITRATE 2% VAGINAL CREAM 45 GM TUBE 1 APPFUL VAGINAL (21:27)
[2023-05-21] VITALS (13 sets, daily range): BP systolic 102–119; BP diastolic 50–60; PULSE 85–108; RESP 16–18; TEMP 36.3–36.9; O2SAT 90–99
[2023-05-21] MEDS: MAGNES & ALUM HYD/SIMETH/DIPHENHYD/LIDOCAINE 119 ML MOUTHWASH BY MOUTH ×6 (01:15→20:38)
[2023-05-21] MEDS: HYDROcodone/acetaminophen (*CRX) 5-325 MG TABLET 1 TAB PO ×4 (01:16→20:40)
[2023-05-21] MEDS: IPRATROPIUM 0.5 MG/ALBUTEROL SULFATE 2.5 MG AMPUL.NEB 3 ML INHALATION ×2 (07:39→14:52)
[2023-05-21] MEDS: FLUTICASONE/SALMETEROL 115-21 MCG INHALER 1 PUFF 2 PUFF INHALATION ×2 (07:39→21:28)
[2023-05-21 07:54] LABS: Glucose Point of Care 157 mg/dl (65-105)
[2023-05-21 09:12] LABS: Basophils Absolute Auto 0.1 K/mm3 (0.0-0.1); Basophils Percent Auto 0.4 % (0.2-1.2); Eosinophils Absolute Auto 0.2 K/mm3 (0-0.3); Eosinophils Percent Auto 2.1 % (0-4.4); Hematocrit 29.8 % (37.0-47.0); Hemoglobin 9.1 g/dL (12.0-15.0); Immature Granulocyte Absolute 0.06 K/mm3 (0.00-0.031); Immature Granulocyte Percent A 0.5 % (0-0.5); Lymphocytes Absolute Auto 0.82 K/mm3 (0.9-3.2); Lymphocytes Percent Auto 7.2 % (18.3-44.2); Mean Corpuscular HGB Conc 30.5 g/dl (32-36); Mean Corpuscular Hemoglobin 30.7 pg (26-34); Mean Corpuscular Volume 100.7 fl (80-100); Mean Platelet Volume 11.1 fl (7.4-10.4); Monocytes Percent Auto 8.7 % (2.6-8.5); Neutrophils Absolute Auto 9.2 K/mm3 (1.3-6.7); Neutrophils Percent Auto 81.1 % (45.5-73.1); Platelet Count Result 213 k/mm3 (150-375); Red Blood Count 2.96 M/mm3 (4.2-5.4); Red Cell Distribution Width 14.7 % (11.5-14.5); White Blood Count 11.3 K/mm3 (4.5-10.0)
[2023-05-21 09:23] LABS: Alanine Aminotransferase 7 U/L (6-35); Albumin Level 3.6 g/dL (3.5-5.1); Alkaline Phosphatase 158 U/L (38-126); Anion Gap 7 mmol/L (4-12); Aspartate Amino Transferase 14 U/L (14-36); Bilirubin,Total 0.4 mg/dL (0.2-1.3); Blood Urea Nitrogen 27 mg/dL (7-17); Carbon Dioxide 23 mmol/L (22-30); Chloride 99 mmol/L (98-107); Estimated CRCL calculation 38 ml/min; Estimated Glomerular Filt Rate 32; Glucose 193 mg/dL (65-110); Magnesium 2.1 mg/dL (1.6-2.3); Potassium 4.8 mmol/L (3.4-5.0); Sodium 129 mmol/L (137-145)
[2023-05-21] MEDS: CARBIDOPA/LEVODOPA 25/100 MG TABLET 3 TABLET PO ×3 (10:35→18:04)
[2023-05-21] MEDS: ATORVASTATIN 40 MG TABLET 80 MG PO (10:38)
[2023-05-21] MEDS: FLUoxetine HCL 20 MG CAPSULE 40 MG PO ×2 (10:40→20:41)
[2023-05-21] MEDS: hydrALAZINE HCL 25 MG TABLET PO ×3 (10:43→18:05)
[2023-05-21] MEDS: PANTOPRAZOLE 40 MG TABLET PO (10:45)
[2023-05-21] MEDS: GABAPENTIN 100 MG CAPSULE PO ×3 (10:46→18:05)
[2023-05-21] MEDS: FLUCONAZOLE 100 MG TABLET PO (10:47)
[2023-05-21] MEDS: DOXEPIN HCL 25 MG CAPSULE PO ×2 (10:48→20:41)
[2023-05-21] MEDS: APIXABAN 2.5 MG TABLET PO ×2 (10:49→20:41)
[2023-05-21] MEDS: PRIMIDONE 50 MG TABLET PO ×2 (10:51→18:05)
[2023-05-21] MEDS: allopurinoL 100 MG TABLET PO (10:52)
[2023-05-21] MEDS: OXcarbazepine 300 MG TABLET PO ×2 (10:52→20:41)
[2023-05-21] MEDS: AMIODARONE HCL 200 MG TABLET BY MOUTH (10:54)
[2023-05-21] MEDS: INSULIN ASPART (*BKC) 100 UNITS/ML 12 UNITS SUB-Q ×3 (10:58→18:06)
[2023-05-21] MEDS: ceFAZolin 1 GM/NS 50 ML 1 GM/50 ML BAG IVPB ×2 (11:00→20:48)
[2023-05-21] MEDS: INSULIN GLARGINE (*BKC) 100 UNITS/ML 24 UNITS SUB-Q (11:04)
[2023-05-21] MEDS: NYSTATIN 100,000 UNITS/ML SUSP 5 ML ORAL.SUSP PO ×4 (11:36→20:41)
[2023-05-21 12:18] LABS: Glucose Point of Care 225 mg/dl (65-105)
[2023-05-21 13:21] LABS: Glucose Point of Care 209 mg/dl (65-105)
[2023-05-21] MEDS: INSULIN ASPART (*BKC) 100 UNITS/ML SUB-Q (13:25)
--- NOTE | 2023-05-21 13:50 | PM.IMPN ---
Progress Note: A&P Assessment and Plan (1) Acute hyperkalemia: Code(s): E87.5 - Hyperkalemia Status: Acute (2) Hyperglycemia: Code(s): R73.9 - Hyperglycemia, unspecified Status: Acute (3) Generalized weakness: Code(s): R53.1 - Weakness Status: Acute (4) Acute hyponatremia: Code(s): E87.1 - Hypo-osmolality and hyponatremia Status: Acute (5) Parkinson disease: Code(s): G20 - Parkinson's disease Status: Acute (6) Atrial fibrillation: Code(s): I48.91 - Unspecified atrial fibrillation Status: Acute (7) Chronic kidney disease, stage 3: Qualifiers: Chronic kidney disease stage 3 subtype: stage 3a (GFR 45-59) Qualified Code(s): N18.31 - Chronic kidney disease, stage 3a Code(s): N18.30 - Chronic kidney disease, stage 3 unspecified Status: Acute (8) NESHA (acute kidney injury): Code(s): N17.9 - Acute kidney failure, unspecified Status: Acute (9) Morbid obesity with BMI of 50.0-59.9, adult: Code(s): E66.01 - Morbid (severe) obesity due to excess calories; Z68.43 - Body mass index [BMI] 50.0-59.9, adult Status: Acute Plan This is a 72-year-old female with weakness and generalized fatigue over past few days. She also reported increased urinary frequency she is diabetic but has not been on occasions. She also complain of polydipsia and polyuria. Her past medical history includes Parkinson's disease chronic kidney disease congestive heart failure and diabetes. Still lives at home with her and gets around with a walker. She reported that her blood sugar has been running a high lately she is also on chronic oxygen at home since past few years for her underlying congestive heart failure. In the ED she was bit tachycardic but afebrile EKG with sinus tachycardia. Chest x-ray no evidence of pneumonia. WBC count 15.99.8 suggesting anemia sodium was down to 127 however sugar of 340. Potassium was high at 5.2 creatinine of 1.3 A1c came back at 12. Beta hydroxybutyrate was normal at 0.2. Alkaline phosphatase was elevated however other LFTs were normal. Urinalysis was negative for infection. Influenza RSV and COVID was negative. She is admitted for dehydration received 1 L fluid in the ER she still remains a bit tachycardic. Received another IV fluid. Her blood sugars still high. Initiated on insulin basal bolus regimen. assistant health educator consultation in a.m. DVT prophylaxis on apixaban. Cautious hydration due to history of congestive heart failure. Underlying CKD stage 3; continue to monitor. Labial swelling and and pain. CT pelvis suggestive of cellulitis started on Ancef. Leukocytosis improving Hyponatremia mild which continues to improve as improvement in hyperglycemia. Severe hyperglycemia adjust insulin as needed. Need insulin at discharge Hyperkalemia Chronic respiratory failure on home oxygen Chronic diastolic congestive heart failure. Chronic anemia chin hyperlipidemia peripheral neuropathy/chronic constipation/COPD/Parkinson's disease/anxiety disorder/gout Subjective Date/time seen: 05/21/23 13:50 Interval history: No overnight events. Pain is better. Denies any new complaints. Blood sugar trend reviewed. Review of Systems Review of Systems: All systems reviewed & are unremarkable except as noted in HPI and below Exam Narrative: ?APPEARANCE: ill-appearing not in acute distress HEAD: normocephalic, atraumatic. EYES: PERRLA/EOMI, conjunctivae clear. NOSE: Normal no drainage THROAT: Pharynx clear, no exudate. NECK: Supple. No adenopathy, no masses. RESPIRATORY: Airway patent, respirations nonlabored. Clear to auscultation bilaterally, no rales, rhonchi, wheezing. CARDIOVASCULAR: Regular rate and rhythm without murmurs rubs or gallops. ABDOMINAL: Soft, nontender, nondistended, normal bowel sounds MUSCULOSKELETAL: Moves all extremities. Strength/ROM intact, No edema, No calf tenderness. N
[2023-05-21 18:00] LABS: Glucose Point of Care 135 mg/dl (65-105)
[2023-05-21] MEDS: ALPRAZolam (*CRX) 0.5 MG TABLET 1 MG PO (18:05)
[2023-05-21] MEDS: MICONAZOLE NITRATE 2% VAGINAL CREAM 45 GM TUBE 1 APPFUL VAGINAL (20:38)
[2023-05-21] MEDS: QUEtiapine FUMARATE 25 MG TABLET PO (20:41)
[2023-05-21] MEDS: PRAZOSIN HCL 5 MG CAPSULE PO (20:41)
[2023-05-21] MEDS: rOPINIRole HCL 0.5 MG TABLET PO (20:41)
[2023-05-22] VITALS (15 sets, daily range): BP systolic 107–117; BP diastolic 46–62; PULSE 89–106; RESP 16–18; TEMP 36.6–36.7; O2SAT 92–100
[2023-05-22 04:01] LABS: Glucose Point of Care 207 mg/dl (65-105)
[2023-05-22 05:05] LABS: Basophils Percent Auto 0.4 % (0.2-1.2); Eosinophils Absolute Auto 0.3 K/mm3 (0-0.3); Eosinophils Percent Auto 3.4 % (0-4.4); Hematocrit 27.5 % (37.0-47.0); Hemoglobin 8.4 g/dL (12.0-15.0); Immature Granulocyte Absolute 0.06 K/mm3 (0.00-0.031); Immature Granulocyte Percent A 0.6 % (0-0.5); Lymphocytes Absolute Auto 0.71 K/mm3 (0.9-3.2); Lymphocytes Percent Auto 7.4 % (18.3-44.2); Mean Corpuscular HGB Conc 30.5 g/dl (32-36); Mean Corpuscular Hemoglobin 30.9 pg (26-34); Mean Corpuscular Volume 101.1 fl (80-100); Mean Platelet Volume 11.1 fl (7.4-10.4); Monocytes Absolute Auto 0.9 K/mm3 (0.1-0.6); Monocytes Percent Auto 9.4 % (2.6-8.5); Neutrophils Absolute Auto 7.5 K/mm3 (1.3-6.7); Neutrophils Percent Auto 78.8 % (45.5-73.1); Platelet Count Result 225 k/mm3 (150-375); Red Blood Count 2.72 M/mm3 (4.2-5.4); Red Cell Distribution Width 14.8 % (11.5-14.5); White Blood Count 9.6 K/mm3 (4.5-10.0)
[2023-05-22 05:24] LABS: Albumin Level 3.5 g/dL (3.5-5.1); Alkaline Phosphatase 151 U/L (38-126); Anion Gap 5 mmol/L (4-12); Aspartate Amino Transferase 15 U/L (14-36); Bilirubin,Total 0.4 mg/dL (0.2-1.3); Blood Urea Nitrogen 28 mg/dL (7-17); Calcium 8.8 mg/dL (8.4-10.2); Carbon Dioxide 26 mmol/L (22-30); Chloride 97 mmol/L (98-107); Estimated CRCL calculation 36 ml/min; Estimated Glomerular Filt Rate 29; Glucose 137 mg/dL (65-110); Magnesium 2.2 mg/dL (1.6-2.3); Potassium 4.6 mmol/L (3.4-5.0); Sodium 128 mmol/L (137-145)
[2023-05-22] MEDS: MAGNES & ALUM HYD/SIMETH/DIPHENHYD/LIDOCAINE 119 ML MOUTHWASH BY MOUTH ×5 (05:40→21:08)
[2023-05-22 05:50] LABS: Alanine Aminotransferase < 6 U/L (6-35)
[2023-05-22 08:31] LABS: Glucose Point of Care 104 mg/dl (65-105)
[2023-05-22] MEDS: FLUTICASONE/SALMETEROL 115-21 MCG INHALER 1 PUFF 2 PUFF INHALATION ×2 (08:51→20:26)
[2023-05-22] MEDS: IPRATROPIUM 0.5 MG/ALBUTEROL SULFATE 2.5 MG AMPUL.NEB 3 ML INHALATION ×2 (08:54→20:39)
[2023-05-22] MEDS: HYDROcodone/acetaminophen (*CRX) 5-325 MG TABLET 1 TAB PO (09:22)
[2023-05-22] MEDS: allopurinoL 100 MG TABLET PO (09:23)
[2023-05-22] MEDS: ATORVASTATIN 40 MG TABLET 80 MG PO (09:23)
[2023-05-22] MEDS: ALPRAZolam (*CRX) 0.5 MG TABLET 1 MG PO ×2 (09:23→13:03)
[2023-05-22] MEDS: OXcarbazepine 300 MG TABLET PO ×2 (09:23→21:08)
[2023-05-22] MEDS: CARBIDOPA/LEVODOPA 25/100 MG TABLET 3 TABLET PO ×3 (09:23→18:14)
[2023-05-22] MEDS: FLUoxetine HCL 20 MG CAPSULE 40 MG PO ×2 (09:23→21:08)
[2023-05-22] MEDS: PRIMIDONE 50 MG TABLET PO ×2 (09:23→18:14)
[2023-05-22] MEDS: APIXABAN 2.5 MG TABLET PO (09:23)
[2023-05-22] MEDS: GABAPENTIN 100 MG CAPSULE PO ×3 (09:24→18:14)
[2023-05-22] MEDS: AMIODARONE HCL 200 MG TABLET BY MOUTH (09:24)
[2023-05-22] MEDS: BUMETANIDE 1 MG TABLET 2 MG PO (09:24)
[2023-05-22] MEDS: PANTOPRAZOLE 40 MG TABLET PO (09:24)
[2023-05-22] MEDS: DOXEPIN HCL 25 MG CAPSULE PO ×2 (09:24→21:08)
[2023-05-22] MEDS: FLUCONAZOLE 100 MG TABLET PO (09:24)
[2023-05-22] MEDS: hydrALAZINE HCL 25 MG TABLET PO ×2 (09:24→13:03)
[2023-05-22] MEDS: ceFAZolin 1 GM/NS 50 ML 1 GM/50 ML BAG IVPB ×2 (09:27→21:10)
[2023-05-22] MEDS: INSULIN GLARGINE (*BKC) 100 UNITS/ML 24 UNITS SUB-Q (09:28)
[2023-05-22] MEDS: NYSTATIN 100,000 UNITS/ML SUSP 5 ML ORAL.SUSP PO ×4 (09:29→21:08)
[2023-05-22 10:03] LABS: Folic Acid 13.1 ng/mL (2.76->20)
[2023-05-22 11:59] LABS: Glucose Point of Care 197 mg/dl (65-105)
--- NOTE | 2023-05-22 12:57 | PM.IMPN ---
Progress Note: A&P Assessment and Plan (1) Cellulitis of groin, left: Code(s): L03.314 - Cellulitis of groin Status: Acute Assessment and Plan: Labial swelling and and pain. Pelvic CT pelvis suggestive of cellulitis She was started on Ancef. WBC normal now. One area actively draining career services director evaluated patient and was concerned for deeper abscess General surgery consult. Add Flagyl (2) Acute hyperkalemia: Code(s): E87.5 - Hyperkalemia Status: Acute Assessment and Plan: Potassium 5.2 on admission. Potassium has been normal over the past 3 days. Continue monitor. (3) Type 2 diabetes mellitus: Qualifiers: Diabetes mellitus manager terminal insulin use: with manager terminal use Diabetes mellitus complication status: without complication Qualified Code(s): E11.9 - Type 2 diabetes mellitus without complications; Z79.4 - custodial (current) use of insulin Code(s): E11.9 - Type 2 diabetes mellitus without complications Status: Acute Assessment and Plan: Patient presents with glucose of 340. A1c 12. Hyperglycemia related to uncontrolled diabetes. The patient's blood glucose was reviewed on 05/21 Glucose remains better controlled. Continue AccuCheks covering with sliding scale. Hypoglycemia protocol available as needed. Continue to monitor (4) Generalized weakness: Code(s): R53.1 - Weakness Status: Acute Assessment and Plan: Probably related to infection and uncontrolled diabetes TSH noted. B12 low so will replace. Continue PT and OT (5) Acute hyponatremia: Code(s): E87.1 - Hypo-osmolality and hyponatremia Status: Acute Assessment and Plan: Sodium was low on admission prior related hyperglycemia. On chart review does appear that she does have mild hyponatremia chronically. Sodium slightly improved since admission. Check Urine sodium. (6) Parkinson disease: Code(s): G20 - Parkinson's disease Status: Acute Assessment and Plan: Stable Contineu Sinemet Continue PT/OT (7) Chronic kidney disease, stage 3: Qualifiers: Chronic kidney disease stage 3 subtype: stage 3a (GFR 45-59) Qualified Code(s): N18.31 - Chronic kidney disease, stage 3a Code(s): N18.30 - Chronic kidney disease, stage 3 unspecified Status: Acute Assessment and Plan: Cr with wide fluctuation. Baseline unclear but anywhere fro 1.3-2.3 mostly Cr was 1.3 on admission but climbed to 1.6-1.7 now. Follow. (8) Morbid obesity with BMI of 50.0-59.9, adult: Code(s): E66.01 - Morbid (severe) obesity due to excess calories; Z68.43 - Body mass index [BMI] 50.0-59.9, adult Status: Acute Assessment and Plan: BMI 54. COntributing to her other problems Plan Chronic respiratory failure on home oxygen but not requiriing O2 here. Follow. Change nebs to prn Chronic diastolic congestive heart failure - CXR clear on admission. appears euvolemic. Chronic anemia - Hgb mostly in the 7-8 range. DVT prophylaxis - Eliquis Code status - Full Subjective Date/time seen: 05/22/23 12:57 Interval history: 72yo female with DM, CKD, COPD. dCHF, untreated DERRICK, HTN and Parkinson here for weakness. Assuming care. Chart reviewed. Patient's complaint pain in her groin. She has sleep apnea but intolerant to CPAP. She does complain shortness of breath. Exam Narrative: AF 97.9 107/50 100 18 100% ra Gen - NARD lying semi-recumbent in bed in NARD Chest - few basilar rhonchi o/w clear CV - RRR S1/S2. Tele showing sinus rhythm Abd - Soft, obese, NT - purulent mat'l seen draining from the left leg crease b/w the left leg and distal labia. some induration noted but exam difficult due to pain. Ext - trace pedal edema Psych - Nml mood and affect Skin - mild erythema to the left groin Objective Data Vital Signs Vital Signs: Vital Signs - 24 hr 05/20/
[2023-05-22] MEDS: INSULIN ASPART (*BKC) 100 UNITS/ML 12 UNITS SUB-Q ×2 (13:08→18:15)
[2023-05-22] MEDS: metroNIDAZOLE 500 MG TABLET PO ×2 (14:18→21:08)
[2023-05-22] MEDS: CYANOCOBALAMIN INJ 1,000 MCG/ML VIAL 1000 MCG IM (14:18)
[2023-05-22 16:10] LABS: Glucose Point of Care 143 mg/dl (65-105)
--- NOTE | 2023-05-22 16:31 | PM.CNGS ---
Assessment and Plan Assessment and plan (1) Abscess of groin, left: Code(s): L02.214 - Cutaneous abscess of groin Status: Acute Assessment and Plan: Patient found to have cellulitis of the left groin after admission. She had a CT scan of the pelvis 2 days ago that showed subcutaneous fat stranding in the pelvis and thighs, left worse than right consistent with edema versus inflammation. She was started on IV antibiotics. She did have [place] [address] the has normalized as of today. On exam today, she has erythema and induration of the left groin extending to the left labia with an opening draining purulence fluid in the left groin. It is difficult to evaluate the area due to her pain and difficulty positioning her legs. This area is extremely tender and she does not appear to be able to tolerate a bedside I&D. Discussed the case with Dr. Veronica and we would recommend to schedule the patient for incision and drainage of left groin abscess in the OR where she can have sedation. This will also allow better visualization. We will make the patient NPO at 6:00 a.m. tomorrow in case she can be added onto the surgery schedule tomorrow afternoon. Continue IV antibiotics. Will start gauze dressing changes in the meantime. (2) Anticoagulant long-term use: Code(s): Z79.01 - superintendent container terminal (current) use of anticoagulants Status: Acute Assessment and Plan: Currently on Eliquis 2.5 mg Q 12H. Reason for her anticoagulation is unclear and the patient was confused during my evaluation, so she is unable to clarify. She does have a history of some arrhythmias and could be on anticoagulation for this. Discussed with the hospitalist and will plan to hold her Eliquis for surgery possibly tomorrow. (3) Generalized weakness: Code(s): R53.1 - Weakness Status: Acute Assessment and Plan: This is the reason for her hospitalization. (4) Acute hyponatremia: Code(s): E87.1 - Hypo-osmolality and hyponatremia Status: Acute Assessment and Plan: Acute on chronic hyponatremia. Improved some since admission. Sodium 128 today. (5) Diabetes mellitus with chronic kidney disease: Code(s): E11.22 - Type 2 diabetes mellitus with diabetic chronic kidney disease Status: Chronic (6) Parkinson disease: Code(s): G20 - Parkinson's disease Status: Acute (7) Chronic kidney disease, stage 3: Qualifiers: Chronic kidney disease stage 3 subtype: stage 3a (GFR 45-59) Qualified Code(s): N18.31 - Chronic kidney disease, stage 3a Code(s): N18.30 - Chronic kidney disease, stage 3 unspecified Status: Acute (8) Obstructive sleep apnea: Code(s): G47.33 - Obstructive sleep apnea (adult) (pediatric) Status: Chronic (9) Morbid obesity with BMI of 50.0-59.9, adult: Code(s): E66.01 - Morbid (severe) obesity due to excess calories; Z68.43 - Body mass index [BMI] 50.0-59.9, adult Status: Acute History of Present Illness Consult details Consult date: 05/22/23 Reason for consult: other (Groin abscess) Requesting physician: Jae Giles MD Narrative: This is a 72-year-old woman with Parkinson's, uncontrolled type 2 diabetes mellitus, COPD, CKD, diastolic CHF, untreated DERRICK, and hypertension, who we have been asked to see in surgical consultation for a left groin abscess. She is seen on the medical floor. She is a poor historian as she woke up during my evaluation and was confused. Per nursing she had recently received Xanax and fell asleep after this. She was unable to provide any history, therefore history was obtained by review of the electronic medical record. The patient presented to the ER from home 5 days ago for generalized weakness. She was admitted and treated for dehydration, acute hyperkalemia, and acute on chronic hyponatremia. She was found to have a cellulitis of the left groin and left labia, and wa
[2023-05-22 17:01] LABS: Glucose Point of Care 132 mg/dl (65-105)
[2023-05-22 18:07] LABS: Creatinine Urine 80.2 mg/dL; Urea Random Urine 421 MG/DL
[2023-05-22 18:24] LABS: Sodium Urine Random 25 meq/L
[2023-05-22] MEDS: QUEtiapine FUMARATE 25 MG TABLET PO (21:08)
[2023-05-22] MEDS: MICONAZOLE NITRATE 2% VAGINAL CREAM 45 GM TUBE 1 APPFUL VAGINAL (21:08)
[2023-05-22] MEDS: PRAZOSIN HCL 5 MG CAPSULE PO (21:08)
[2023-05-22] MEDS: rOPINIRole HCL 0.5 MG TABLET PO (21:08)
[2023-05-23] VITALS (21 sets, daily range): BP systolic 110–144; BP diastolic 48–70; PULSE 91–106; RESP 12–20; TEMP 36.1–38.6; O2SAT 90–99
[2023-05-23] MEDS: diphenhydrAMINE HCl INJ 50 MG/ML VIAL 25 MG IV PUSH (01:51)
[2023-05-23] MEDS: MAGNES & ALUM HYD/SIMETH/DIPHENHYD/LIDOCAINE 119 ML MOUTHWASH BY MOUTH ×5 (01:51→21:07)
--- NOTE | 2023-05-23 01:58 | PC.NURSE ---
Pt had been sleeping comfortably. When she woke she called me in the room to look at her arm. Her right forearm had multiple new deep scratches. She said she didn't know what happened that she must of done it in her sleep cause she is itchy. I then gave her some benadryl.
[2023-05-23] MEDS: metroNIDAZOLE 500 MG TABLET PO (05:46)
[2023-05-23 06:00] LABS: Basophils Percent Auto 0.5 % (0.2-1.2); Eosinophils Absolute Auto 0.3 K/mm3 (0-0.3); Hematocrit 25.8 % (37.0-47.0); Hemoglobin 7.9 g/dL (12.0-15.0); Immature Granulocyte Absolute 0.07 K/mm3 (0.00-0.031); Immature Granulocyte Percent A 0.8 % (0-0.5); Lymphocytes Absolute Auto 0.48 K/mm3 (0.9-3.2); Lymphocytes Percent Auto 5.7 % (18.3-44.2); Mean Corpuscular HGB Conc 30.6 g/dl (32-36); Mean Corpuscular Volume 101.2 fl (80-100); Mean Platelet Volume 11.1 fl (7.4-10.4); Monocytes Absolute Auto 0.8 K/mm3 (0.1-0.6); Monocytes Percent Auto 9.5 % (2.6-8.5); Neutrophils Absolute Auto 6.8 K/mm3 (1.3-6.7); Neutrophils Percent Auto 80.5 % (45.5-73.1); Platelet Count Result 230 k/mm3 (150-375); Red Blood Count 2.55 M/mm3 (4.2-5.4); Red Cell Distribution Width 14.9 % (11.5-14.5); White Blood Count 8.4 K/mm3 (4.5-10.0)
[2023-05-23 06:13] LABS: Albumin Level 3.3 g/dL (3.5-5.1); Anion Gap 7 mmol/L (4-12); Blood Urea Nitrogen 28 mg/dL (7-17); Calcium 8.7 mg/dL (8.4-10.2); Carbon Dioxide 24 mmol/L (22-30); Chloride 99 mmol/L (98-107); Estimated CRCL calculation 35 ml/min; Estimated Glomerular Filt Rate 28; Glucose 127 mg/dL (65-110); Magnesium 2.2 mg/dL (1.6-2.3); Phosphorus 4.6 mg/dL (2.5-4.5); Potassium 4.8 mmol/L (3.4-5.0); Sodium 130 mmol/L (137-145)
[2023-05-23 07:59] LABS: Glucose Point of Care 152 mg/dl (65-105)
[2023-05-23 08:13] LABS: Glucose Point of Care 130 mg/dl (65-105)
[2023-05-23] MEDS: FLUTICASONE/SALMETEROL 115-21 MCG INHALER 1 PUFF 2 PUFF INHALATION ×2 (08:17→20:11)
[2023-05-23] MEDS: ceFAZolin 1 GM/NS 50 ML 1 GM/50 ML BAG IVPB (08:43)
[2023-05-23] MEDS: NYSTATIN 100,000 UNITS/ML SUSP 5 ML ORAL.SUSP PO ×3 (08:46→21:11)
[2023-05-23 12:04] LABS: Glucose Point of Care 130 mg/dl (65-105)
[2023-05-23] MEDS: ACETAMINOPHEN 500 MG TABLET 1000 MG PO (13:57)
--- NOTE | 2023-05-23 14:04 | WPDHPUPDATE1 ---
History and Physical Update Update Date/Time: 05/23/23 14:04 History and Physical has been reviewed, including an updated exam of the patient. There are NO changes in the patient's condition. Risks, benefits, and alternatives have been discussed and questions answered. Patient agrees to proceed with procedure.
--- NOTE | 2023-05-23 14:05 | WPDANESEPPF ---
Anes - Initial Pre Proc Eval Procedure: Operation Date: 05/23/23 14:45 Proposed Procedures p Incision and Drainage Vani-Anal Abscess - Raffy Veronica MD Date/Time: 05/23/23 14:05 Surgeon: Cole Madden MD Pre Op Diagnosis: generalized weakness, hyperkalemia, hyperglycemia Patient Data Age: 72 Gender: F Height: 1.6 m Weight: 138.6 kg Last Vital Signs Temp 101.4 F H 05/23/23 13:47 Pulse 106 H 05/23/23 13:47 Resp 20 05/23/23 13:47 BP 128/48 L 05/23/23 13:47 Pulse Ox 95 05/23/23 13:47 O2 Del Method Nasal Cannula 05/23/23 13:47 O2 Flow Rate 2 05/23/23 13:47 FiO2 21 05/23/23 08:17 Allergies Allergy/AdvReac Type Severity Reaction Status Date / Time iodine Allergy Severe Hives Verified 05/06/22 12:41 latex Allergy Severe Hives Verified 05/06/22 12:41 Contrast Media Allergy Mild Hives Uncoded 05/06/22 12:41 Home Medications Medication Instructions Recorded Confirmed Type atorvastatin 80 mg tablet 80 mg PO QAM 12/10/19 05/17/23 History carbidopa 25 mg-levodopa 100 mg 3 tablet PO TID 12/10/19 05/17/23 History tablet fluoxetine 40 mg capsule 40 mg PO BID 12/10/19 05/17/23 History oxcarbazepine 300 mg tablet 300 mg PO BID 12/10/19 05/17/23 History allopurinol 100 mg tablet 100 mg PO DAILY 12/12/21 05/17/23 History doxepin 25 mg capsule 25 mg PO BID 12/12/21 05/17/23 History empagliflozin 10 mg tablet 10 mg PO DAILY 12/12/21 05/17/23 History (Jardiance) ipratropium 0.5 mg-albuterol 3 mg 3 ml inhalation Q6H 12/12/21 05/17/23 History (2.5 mg base)/3 mL nebulization soln prazosin 5 mg capsule 5 mg PO HS 12/12/21 05/17/23 History ropinirole 0.5 mg tablet 0.5 mg PO HS 12/12/21 05/17/23 History primidone 50 mg tablet 50 mg PO BID 12/21/21 05/17/23 History acetaminophen 650 mg tablet 650 mg PO Q6H PRN Pain (Scale 12/23/21 05/17/23 History Score 1-3) albuterol sulfate 90 mcg/actuation 2 puff inhalation QID PRN 12/23/21 05/17/23 History aerosol inhaler Shortness Of Breath Or Wheezing quetiapine 25 mg tablet 25 mg PO HS 12/23/21 05/17/23 History gabapentin 100 mg PO TID 12/29/21 05/17/23 History hydralazine 25 mg tablet 25 mg PO TID #90 tabs 01/05/22 05/17/23 Rx bumetanide 1 mg tablet 2 mg PO DAILY 02/15/22 05/17/23 History fluvoxamine 100 mg tablet 100 mg PO QHS 02/15/22 05/17/23 History amiodarone 200 mg PO DAILY 08/28/22 05/17/23 History apixaban 5 mg tablet (Eliquis) 2.5 mg PO Q12HR 08/28/22 05/17/23 History pantoprazole 40 mg tablet,delayed 40 mg PO QAM 08/28/22 05/17/23 History release Breo Ellipta See Rx Instructions .Route .COMPLEX 09/02/22 05/17/23 History alprazolam 1 mg tablet 1 mg PO TID #21 tabs 09/11/22 05/17/23 Rx losartan 25 mg tablet 12.5 mg PO DAILY #30 tabs 09/11/22 05/17/23 Rx Laboratory Tests 05/22/23 05/22/23 05/22/23 16:05 16:49 17:11 WBC RBC Hgb Hct MCV MCH MCHC RDW Plt Count MPV Immature Gran % (Auto) Neut % (Auto) Lymph % (Auto) Orange % (Auto) Eos % (Auto) Baso % (Auto) Lymph # (Auto) Orange # (Auto) Eos # (Auto) Baso # (Auto) Abs Immat Gran (auto) Absolute Neuts (auto) Absolute Nucleated RBC Nucleated RBC % Sodium Potassium Chloride Carbon Dioxide Anion Gap BUN Creatinine Estim Creat Clear Calc Estimated GFR Glucose POC Capillary Glucose 143 H mg/dl 132 H mg/dl (65-105) (65-105) Calcium Phosphorus Magnesium Albumin Ur Random Sodium 25 meq/L Ur Random Urea 421 MG/DL Urine Creatinine 80.2 mg/dL 05/22/23 05/23/23 05/23/23 21:01
--- NOTE | 2023-05-23 14:16 | PC.NURSE ---
On 05/23/23, the student, [Suzie Mcgregor], provided care and completed [facility] documentation on this patient. I have reviewed the student's documentation and agree with the findings.
[2023-05-23] MEDS: LACTATED RINGERS 1,000 ML 30 ML IV CONT (15:00)
[2023-05-23] MEDS: fentaNYL CITRATE INJ (*CRX) 100 MCG/2 ML VIAL 25 MCG IV PUSH ×7 (16:15→17:00)
[2023-05-23 17:30] LABS: Glucose Point of Care 155 mg/dl (65-105)
[2023-05-23] MEDS: ATORVASTATIN 40 MG TABLET 80 MG PO (17:54)
[2023-05-23] MEDS: FLUCONAZOLE 100 MG TABLET PO (17:54)
[2023-05-23] MEDS: CARBIDOPA/LEVODOPA 25/100 MG TABLET 3 TABLET PO (17:54)
[2023-05-23] MEDS: hydrALAZINE HCL 25 MG TABLET PO (17:54)
[2023-05-23] MEDS: BUMETANIDE 1 MG TABLET 2 MG PO (17:54)
[2023-05-23] MEDS: ALPRAZolam (*CRX) 0.5 MG TABLET 1 MG PO (17:54)
[2023-05-23] MEDS: AMIODARONE HCL 200 MG TABLET BY MOUTH (17:54)
[2023-05-23] MEDS: GABAPENTIN 100 MG CAPSULE PO (17:55)
[2023-05-23] MEDS: PANTOPRAZOLE 40 MG TABLET PO (17:55)
[2023-05-23] MEDS: allopurinoL 100 MG TABLET PO (17:55)
[2023-05-23] MEDS: PRIMIDONE 50 MG TABLET PO (17:55)
[2023-05-23] MEDS: CYANOCOBALAMIN 1,000 MCG TABLET 1000 MCG PO (17:55)
[2023-05-23] MEDS: ERTAPENEM 1 GM/NS 50 ML 1 GM/50 ML BAG IVPB (18:01)
[2023-05-23] MEDS: metroNIDAZOLE 500 MG/ISO 100ML 500 MG/100 ML BAG 100 MG IVPB (18:03)
--- NOTE | 2023-05-23 18:41 | PM.IMPN ---
Progress Note: A&P Assessment and Plan (1) Cellulitis of groin, left: Code(s): L03.314 - Cellulitis of groin Status: Acute Assessment and Plan: Labial swelling and and pain. Pelvic CT pelvis suggestive of cellulitis She was started on Ancef and Flagyl added. Diflucan also started for unclear reasons WBC normal now. One area noted to be actively draining statistics intern evaluated patient and was concerned for deeper abscess so General surgery consulted. Patient taken to OR today and had I&D. Cx obtained. WBC remains normal but had fever today. Abx changed to Ertapenem and Flagyl. Stop Diflucan after tomorrow (Day 7) Follow closely (2) Acute hyperkalemia: Code(s): E87.5 - Hyperkalemia Status: Acute Assessment and Plan: Potassium 5.2 on admission. Potassium has been normal over the past few days. Continue monitor. (3) Type 2 diabetes mellitus: Qualifiers: Diabetes mellitus complication status: without complication Diabetes mellitus terminal operations supervisor insulin use: with terminal operations supervisor use Qualified Code(s): E11.9 - Type 2 diabetes mellitus without complications; Z79.4 - intermediate frame tender (current) use of insulin Code(s): E11.9 - Type 2 diabetes mellitus without complications Status: Acute Assessment and Plan: Patient presents with glucose of 340. A1c 12. Hyperglycemia related to uncontrolled diabetes. The patient's blood glucose was reviewed on 05/22 Glucose remains better controlled. Continue AccuCheks covering with sliding scale. Hypoglycemia protocol available as needed. Continue to monitor (4) Generalized weakness: Code(s): R53.1 - Weakness Status: Acute Assessment and Plan: Probably related to infection and uncontrolled diabetes TSH noted. B12 low so will replace. Continue PT and OT (5) Acute hyponatremia: Code(s): E87.1 - Hypo-osmolality and hyponatremia Status: Acute Assessment and Plan: Sodium was low on admission probably related hyperglycemia. On chart review does appear that she does have mild hyponatremia chronically. Urine studies more pre-renal but she is on Bumex which could skew these numbers Sodium slightly improved since admission. Follow (6) Parkinson disease: Code(s): G20 - Parkinson's disease Status: Acute Assessment and Plan: Stable Contineu Sinemet Continue PT/OT (7) Chronic kidney disease, stage 3: Qualifiers: Chronic kidney disease stage 3 subtype: stage 3a (GFR 45-59) Qualified Code(s): N18.31 - Chronic kidney disease, stage 3a Code(s): N18.30 - Chronic kidney disease, stage 3 unspecified Status: Acute Assessment and Plan: Cr with wide fluctuation. Baseline unclear but anywhere fro 1.3-2.3 mostly Cr was 1.3 on admission but climbed to 1.6-1.8 now. Follow. (8) Morbid obesity with BMI of 50.0-59.9, adult: Code(s): E66.01 - Morbid (severe) obesity due to excess calories; Z68.43 - Body mass index [BMI] 50.0-59.9, adult Status: Acute Assessment and Plan: BMI 54. This is contributing to her other problems Plan Anticoagulation - Patient was started on Eliquis at [facility] on 12/29/21 for a thrombosis of the right cephalic vein noted by venous doppler on 12/24/21. Since time has elapsed and that this is not a DVT, will not continue Eliquis. B12 Deficiency - as above Chronic respiratory failure on home oxygen and back on O2 now. Follow. Change nebs to prn Chronic diastolic CHF - CXR clear on admission. Continue Bumex Chronic anemia - Hgb mostly in the 7-8 range and stable. B12 being replaced. Follow. DVT prophylaxis - Eliquis Code status - Full Subjective Date/time seen: 05/23/23 18:41 Interval history: 72yo female with DM, CKD, COPD. dCHF, untreated DERRICK, HTN and Parkinson here for weakness. She is back from the OR. She is resting comfortably. Pain controlled. Exam Narrative: Tm 101.4 97.8 125
[2023-05-23] MEDS: PRAZOSIN HCL 5 MG CAPSULE PO (21:03)
[2023-05-23] MEDS: OXcarbazepine 300 MG TABLET PO (21:05)
[2023-05-23] MEDS: DOXEPIN HCL 25 MG CAPSULE PO (21:05)
[2023-05-23] MEDS: FLUoxetine HCL 20 MG CAPSULE 40 MG PO (21:05)
[2023-05-23] MEDS: APIXABAN 2.5 MG TABLET PO (21:05)
[2023-05-23] MEDS: rOPINIRole HCL 0.5 MG TABLET PO (21:05)
[2023-05-23] MEDS: HYDROcodone/acetaminophen (*CRX) 5-325 MG TABLET 1 TAB PO (21:12)
[2023-05-24] VITALS (19 sets, daily range): BP systolic 103–137; BP diastolic 48–69; PULSE 80–103; RESP 16–21; TEMP 36.2–36.9; O2SAT 91–100
[2023-05-24] MEDS: oxyCODONE HCL (*CRX) 5 MG TAB IR PO ×2 (02:19→08:42)
[2023-05-24] MEDS: metroNIDAZOLE 500 MG/ISO 100ML 500 MG/100 ML BAG 100 MG IVPB ×2 (02:19→11:04)
[2023-05-24 03:42] LABS: Glucose Point of Care 159 mg/dl (65-105)
[2023-05-24 05:24] LABS: Albumin Level 3.5 g/dL (3.5-5.1); Alkaline Phosphatase 153 U/L (38-126); Anion Gap 5 mmol/L (4-12); Aspartate Amino Transferase 18 U/L (14-36); Bilirubin,Total 0.4 mg/dL (0.2-1.3); Blood Urea Nitrogen 27 mg/dL (7-17); Calcium 8.8 mg/dL (8.4-10.2); Carbon Dioxide 26 mmol/L (22-30); Chloride 98 mmol/L (98-107); Estimated CRCL calculation 37 ml/min; Estimated Glomerular Filt Rate 29; Glucose 147 mg/dL (65-110); Sodium 129 mmol/L (137-145)
[2023-05-24 05:29] LABS: Alanine Aminotransferase < 6 U/L (6-35)
[2023-05-24 07:10] LABS: Basophils Absolute Auto 0.1 K/mm3 (0.0-0.1); Basophils Percent Auto 0.5 % (0.2-1.2); Eosinophils Absolute Auto 0.2 K/mm3 (0-0.3); Eosinophils Percent Auto 1.2 % (0-4.4); Hematocrit 27.9 % (37.0-47.0); Hemoglobin 8.3 g/dL (12.0-15.0); Immature Granulocyte Absolute 0.11 K/mm3 (0.00-0.031); Immature Granulocyte Percent A 0.8 % (0-0.5); Immature Platelet Fraction Pct 5.2 % (0.9-11.2); Lymphocytes Absolute Auto 0.33 K/mm3 (0.9-3.2); Lymphocytes Percent Auto 2.5 % (18.3-44.2); Mean Corpuscular HGB Conc 29.7 g/dl (32-36); Mean Corpuscular Hemoglobin 30.9 pg (26-34); Mean Corpuscular Volume 103.7 fl (80-100); Mean Platelet Volume 11.9 fl (7.4-10.4); Monocytes Percent Auto 7.6 % (2.6-8.5); Neutrophils Absolute Auto 11.3 K/mm3 (1.3-6.7); Neutrophils Percent Auto 87.4 % (45.5-73.1); Nucleated Red Blood Cells Perc 0.2 % (0.0-0.2); Platelet Count Result 271 k/mm3 (150-375); Red Blood Count 2.69 M/mm3 (4.2-5.4); Red Cell Distribution Width 14.8 % (11.5-14.5)
[2023-05-24 08:03] LABS: Glucose Point of Care 133 mg/dl (65-105)
--- NOTE | 2023-05-24 08:12 | P.PNAN_ITS ---
Anes - Prog Note Post-Op Date/Time: 05/24/23 08:12 Vital Signs: Last Vital Signs Temp 36.6 C 05/24/23 06:00 Pulse 101 H 05/24/23 06:00 Resp 21 H 05/24/23 06:00 BP 137/57 L 05/24/23 06:00 Pulse Ox 100 05/24/23 06:00 O2 Del Method Autopap 05/23/23 22:36 O2 Flow Rate 2 05/23/23 20:12 FiO2 21 05/23/23 08:17 Pain Score (VAS): 4 I/O: Intake & Output 05/23/23 05/24/23 05/24/23 23:59 07:59 15:59 Intake Total 450 440 Output Total 700 900 Balance -250 -460 Laboratory Tests 05/24/23 04:33 05/24/23 04:33 05/23/23 05/23/23 05/23/23 08:10 11:59 17:28 WBC RBC Hgb Hct MCV MCH MCHC RDW Plt Count MPV Immature Gran % (Auto) Neut % (Auto) Lymph % (Auto) Sanders % (Auto) Eos % (Auto) Baso % (Auto) Lymph # (Auto) Sanders # (Auto) Eos # (Auto) Baso # (Auto) Abs Immat Gran (auto) Absolute Neuts (auto) Absolute Nucleated RBC Nucleated RBC % % Immature Plt Fraction Sodium Potassium Chloride Carbon Dioxide Anion Gap BUN Creatinine Estim Creat Clear Calc Estimated GFR Glucose POC Capillary Glucose 130 H 130 H 155 H Calcium Total Bilirubin AST ALT Alkaline Phosphatase Total Protein Albumin 05/23/23 05/24/23 05/24/23 20:48 04:33 08:01 WBC 13.0 H RBC 2.69 L Hgb 8.3 L Hct 27.9 L MCV 103.7 H MCH 30.9 MCHC 29.7 L RDW 14.8 H Plt Count 271 MPV 11.9 H Immature Gran % (Auto) 0.8 H Neut % (Auto) 87.4 H Lymph % (Auto) 2.5 L Sanders % (Auto) 7.6 Eos % (Auto) 1.2 Baso % (Auto) 0.5 Lymph # (Auto) 0.33 L Sanders # (Auto) 1.0 H Eos # (Auto) 0.2 Baso # (Auto) 0.1 Abs Immat Gran (auto) 0.11 H Absolute Neuts (auto) 11.3 H Absolute Nucleated RBC 0.030 H Nucleated RBC % 0.2 % Immature Plt Fraction 5.2 Sodium 129 L Potassium 5.0 Chloride 98 Carbon Dioxide 26 Anion Gap 5 BUN 27 H Creatinine 1.70 H Estim Creat Clear Calc 37 Estimated GFR 29 L Glucose 147 H POC Capillary Glucose 159 H 133 H Calcium 8.8 Total Bilirubin 0.4 AST 18 ALT < 6 L Alkaline Phosphatase 153 H Total Protein 7.0 Albumin 3.5 Patient Feedback: Patient satisfied with anesthetic care.
[2023-05-24] MEDS: DOXEPIN HCL 25 MG CAPSULE PO ×2 (08:29→21:33)
[2023-05-24] MEDS: CARBIDOPA/LEVODOPA 25/100 MG TABLET 3 TABLET PO ×3 (08:29→17:44)
[2023-05-24] MEDS: NYSTATIN 100,000 UNITS/ML SUSP 5 ML ORAL.SUSP PO (08:30)
[2023-05-24] MEDS: OXcarbazepine 300 MG TABLET PO ×2 (08:30→21:36)
[2023-05-24] MEDS: APIXABAN 2.5 MG TABLET PO ×2 (08:31→21:33)
[2023-05-24] MEDS: PANTOPRAZOLE 40 MG TABLET PO (08:31)
[2023-05-24] MEDS: PRIMIDONE 50 MG TABLET PO ×2 (08:31→17:44)
[2023-05-24] MEDS: GABAPENTIN 100 MG CAPSULE PO ×3 (08:33→17:44)
[2023-05-24] MEDS: AMIODARONE HCL 200 MG TABLET BY MOUTH (08:33)
[2023-05-24] MEDS: BUMETANIDE 1 MG TABLET 2 MG PO (08:34)
[2023-05-24] MEDS: FLUCONAZOLE 100 MG TABLET PO (08:36)
[2023-05-24] MEDS: allopurinoL 100 MG TABLET PO (08:36)
[2023-05-24] MEDS: CYANOCOBALAMIN 1,000 MCG TABLET 1000 MCG PO (08:36)
[2023-05-24] MEDS: FLUoxetine HCL 20 MG CAPSULE 40 MG PO ×2 (08:36→21:33)
[2023-05-24] MEDS: ALPRAZolam (*CRX) 0.5 MG TABLET 1 MG PO ×3 (08:36→17:45)
[2023-05-24] MEDS: ATORVASTATIN 40 MG TABLET 80 MG PO (08:36)
[2023-05-24] MEDS: INSULIN ASPART (*BKC) 100 UNITS/ML 12 UNITS SUB-Q ×2 (08:43→12:05)
[2023-05-24] MEDS: INSULIN GLARGINE (*BKC) 100 UNITS/ML 24 UNITS SUB-Q (08:43)
[2023-05-24] MEDS: MAGNES & ALUM HYD/SIMETH/DIPHENHYD/LIDOCAINE 119 ML MOUTHWASH BY MOUTH ×4 (08:49→21:34)
[2023-05-24] MEDS: FLUTICASONE/SALMETEROL 115-21 MCG INHALER 1 PUFF 2 PUFF INHALATION ×2 (10:17→19:47)
[2023-05-24 11:54] LABS: Glucose Point of Care 111 mg/dl (65-105)
--- NOTE | 2023-05-24 12:03 | PM.IMPN ---
Progress Note: A&P Assessment and Plan (1) Cellulitis of groin, left: Code(s): L03.314 - Cellulitis of groin Status: Acute Assessment and Plan: Labial swelling and and pain. Pelvic CT pelvis suggestive of cellulitis She was started on Ancef and Flagyl added. Diflucan also started for unclear reasons communications executive evaluated patient and was concerned for deeper abscess so General surgery consulted. Patient taken to OR 05/22 and had complex I&D of left perineal abscess. Cx obtained. WBC back up today related to the I&D Abx changed to Ertapenem and Flagyl. Diflucan Day 7 so will stop Okay to stop Flagyl Follow closely (2) Acute hyperkalemia: Code(s): E87.5 - Hyperkalemia Status: Acute Assessment and Plan: Potassium 5.2 on admission. Potassium has been normal over the past few days but upper limits today. Check cortisol Continue monitor. (3) Type 2 diabetes mellitus: Qualifiers: Diabetes mellitus complication status: without complication Diabetes mellitus alf insulin use: with vermin exterminator use Qualified Code(s): E11.9 - Type 2 diabetes mellitus without complications; Z79.4 - computer terminal operator (current) use of insulin Code(s): E11.9 - Type 2 diabetes mellitus without complications Status: Acute Assessment and Plan: Patient presents with glucose of 340. A1c 12. Hyperglycemia related to uncontrolled diabetes. The patient's blood glucose was reviewed on 05/23 Glucose remains well controlled. Continue AccuCheks covering with sliding scale. Hypoglycemia protocol available as needed. Continue to monitor (4) Generalized weakness: Code(s): R53.1 - Weakness Status: Acute Assessment and Plan: Probably related to infection and uncontrolled diabetes B12 low so replacemet ordered. Continue PT and OT (5) Acute hyponatremia: Code(s): E87.1 - Hypo-osmolality and hyponatremia Status: Acute Assessment and Plan: Sodium was low on admission probably related hyperglycemia. On chart review does appear that she does have mild hyponatremia chronically. Urine studies more pre-renal but she is on Bumex which could skew these numbers Sodium slightly improved since admission. Check cortisol and TSH Follow (6) Parkinson disease: Code(s): G20 - Parkinson's disease Status: Acute Assessment and Plan: Stable Continue Sinemet Continue PT/OT (7) Chronic kidney disease, stage 3: Qualifiers: Chronic kidney disease stage 3 subtype: stage 3a (GFR 45-59) Qualified Code(s): N18.31 - Chronic kidney disease, stage 3a Code(s): N18.30 - Chronic kidney disease, stage 3 unspecified Status: Acute Assessment and Plan: Cr with wide fluctuation. Baseline unclear but anywhere fro 1.3-2.3 mostly Cr was 1.3 on admission but climbed to 1.6-1.8 now and stable Follow. (8) Morbid obesity with BMI of 50.0-59.9, adult: Code(s): E66.01 - Morbid (severe) obesity due to excess calories; Z68.43 - Body mass index [BMI] 50.0-59.9, adult Status: Acute Assessment and Plan: BMI 54. This is contributing to her other problems Plan Thrush - appears to have resolved. Stop Nystatin Anticoagulation - Patient was started on Eliquis at [facility] on 12/29/21 for a thrombosis of the right cephalic vein noted by venous doppler on 12/24/21. Since time has elapsed and that this is not a DVT, will not continue Eliquis at discharge. B12 Deficiency - as above Chronic respiratory failure on home oxygen and back on O2 now. Follow. Nebs available prn Chronic diastolic CHF - Echo (12/2021) showing EF 60-65% and Grade I DD. CXR was clear on admission. Continue Bumex Chronic anemia - Hgb mostly in the 7-8 range and stable. B12 being replaced. Follow. DVT prophylaxis - Eliquis Code status - Full Subjective Date/time seen: 05/24/23 12:03 Interval history: 72yo female with DM, CKD, COPD. dCHF, unt
[2023-05-24] MEDS: HYDROmorphone HCL INJ (*CRX) 1 MG/ML SYR IV PUSH (12:57)
--- NOTE | 2023-05-24 14:21 | PCPTNOTE ---
Attempted to see patient for PT, however RN advised not to see patient this date. RN reported can see patient tomorrow.
--- NOTE | 2023-05-24 14:24 | PC.NURSE ---
On 05/24/23, the student, [Christina Leon], provided care and completed [facility] documentation on this patient. I have reviewed the student's documentation and agree with the findings.
--- NOTE | 2023-05-24 14:27 | WPDPN ---
Progress Note: A&P Assessment and Plan (1) Abscess of groin, left: Code(s): L02.214 - Cutaneous abscess of groin Status: Acute Assessment and Plan: Left perineal and groin abscess well drained. Continue silastic loop drains. Packing removed. Unable to pack wound again at the bedside given location, patient's morbid obesity, and pain tolerance. Wound should be okay to continue to spontaneously drain with the drains in place. Continue IV antibiotics and Subjective Date/time seen: 05/24/23 14:27 Interval history: Patient resting comfortably in bed today. She underwent extensive complex I and D of perineal sided [place] [address] today. No fever. No tachycardia. Exam Skin: Other: Left perineal area stable erythema and still mild induration and swelling. No foul-smelling purulent drainage. Plastic loop drains in place. Packing still in place. Objective Data Vital Signs Vital Signs: Vital Signs - 24 hr 05/23/23 16:10 05/23/23 16:25 05/23/23 16:40 Temperature 36.8 C Pulse Rate 104 H 103 H 103 H Respiratory Rate 18 16 14 Blood Pressure 132/66 144/70 H 133/68 Pulse Oximetry 97 97 90 Oxygen Delivery Simple Face Mask Simple Face Mask Nasal Cannula Oxygen Flow Rate 8 8 2 05/23/23 16:55 05/23/23 17:10 05/23/23 17:25 Temperature 36.6 C Pulse Rate 102 H 100 100 Respiratory Rate 20 12 12 Blood Pressure 120/56 L 126/60 125/58 L Pulse Oximetry 92 94 93 Oxygen Delivery Nasal Cannula Nasal Cannula Nasal Cannula Oxygen Flow Rate 2 2 2 05/23/23 18:15 05/23/23 18:30 05/23/23 19:00 Temperature 36.4 C L 36.9 C 36.1 C L Pulse Rate 103 H 102 H 100 Respiratory Rate 17 17 17 Blood Pressure 130/62 116/57 L 110/53 L Pulse Oximetry 96 97 98 Oxygen Delivery Oxygen Flow Rate 05/23/23 20:12 05/23/23 20:12 05/23/23 20:00 Temperature Pulse Rate 99 100 Respiratory Rate 18 Blood Pressure Pulse Oximetry 97 Oxygen Delivery Nasal Cannula Oxygen Flow Rate 2 05/23/23 20:00 05/23/23 22:35 05/23/23 22:36 Temperature 37.0 C Pulse Rate 95 Respiratory Rate 20 13 Blood Pressure 123/56 L Pulse Oximetry 97 99 Oxygen Delivery Nasal Cannula Autopap Oxygen Flow Rate 2 05/24/23 00:00 05/24/23 04:00 05/24/23 00:35 Temperature 36.2 C L Pulse Rate 80 102 H 103 H Respiratory Rate 16 Blood Pressure 110/60 Pulse Oximetry 94 Oxygen Delivery Oxygen Flow Rate 05/24/23 06:00 05/24/23 08:13 05/24/23 08:33 Temperature 36.6 C 36.9 C Pulse Rate 101 H 99 102 H Respiratory Rate 21 H 18 Blood Pressure 137/57 L 117/53 L Pulse Oximetry 100 96 Oxygen Delivery Oxygen Flow Rate 05/24/23 10:19 05/24/23 10:22 05/24/23 08:36 Temperature Pulse Rate 95 Respiratory Rate 18 18 Blood Pressure Pulse Oximetry 95 95 Oxygen Delivery Nasal Cannula Nasal Cannula Oxygen Flow Rate 2 2 05/24/23 08:01 05/24/23 08:39 05/24/23 11:53 Temperature 36.3 C L Pulse Rate 102 H 93 Respiratory Rate 18 19 Blood Pressure 109/48 L Pulse Oximetry 95 99 Oxygen Delivery Nasal Cannula Oxygen Flow Rate 2 05/24/23 12:04 Temperature Pulse Rate 93 Respiratory Rate Blood Pressure Pulse Oximetry Oxygen Delivery Oxygen Flow Rate Intake/Output Intake/Output: Intake & Output 05/21/23 05/22/23 05/23/23 05/24/23 23:59 23:59 23:59 23:59 Intake Total 1250 2420 1000 1120 Output Total 1650 1250 2200 900 Balance -400 1170 -1200 220 Meds/Results Medications: Active Medications Generic Name Dose Route Start Last Admin Trade Name Freq PRN Reason Stop Dose Admin Acetaminophen 1,000 mg 05/23/23 17:34 Acetaminophen 500 Mg Tablet PO Q6H PRN Mild Pain (1-3) or Fever Hydrocodone Bitart/Acetaminophen 1 tab 05/23/23 17:34 05/23/23 21:12 Hydrocodone/Acetaminophen (*Crx) 5-325 Mg Tablet PO 1 tab Q4H PRN Administration Pain Rated 4-6 Albuterol 2 puff
--- NOTE | 2023-05-24 14:49 | PCOTNOTE ---
Per RN, Patient had a procedure done last evening, Per, RN. Patient is on pain medication and is unable to participate at this time.
[2023-05-24 17:01] LABS: Glucose Point of Care 88 mg/dl (65-105)
[2023-05-24] MEDS: ERTAPENEM 1 GM/NS 50 ML 1 GM/50 ML BAG IVPB (17:39)
--- NOTE | 2023-05-24 18:07 | P.OP_ITS ---
Procedure Note - Detailed Date of Procedure 05/23/23 Pre-op Diagnosis generalized weakness, hyperkalemia, hyperglycemia, left perineal abscess Post-op Diagnosis Same Procedure Performed Complex incision and drainage of left perineal abscess Surgeon Raffy Veronica MD Anesthesia General Indications Patient is a 72-year-old female who is morbidly obese and has uncontrolled diabetes mellitus. She was admitted to the hospital for generalized weakness and appears to have developed a left perineal abscess which is already spontaneously draining pus. 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 Findings The patient had a large abscess in the left perineal region just lateral to left side of the labia. The abscess tunneled superiorly onto the mons pubis for about 8 to 10 cm. It tunneled posteriorly for about 3 to 4 cm. Description of Procedure After informed consent was obtained patient brought to the operating room she was placed supine position and general endotracheal anesthesia was administered. She was then placed in Yellofin stirrups in the lithotomy position. Her legs were raised in lithotomy position and she was placed head-down Trendelenburg until we could expose the left perineal region. This whole area was then prepped and draped in usual sterile fashion. A time-out was then performed correctly identifying the patient as well as procedure to be performed. She was already on scheduled IV antibiotics. I then proceeded to incise the area where it was draining just lateral to the left side of the labia. There was prompt drainage of copious amounts of pus which was cultured and this was sent to microbiology for Gram stain as well as aerobic and anaerobic cultures. I placed my finger into the abscess cavity and extended is cephalad into the area the mons pubis for about 8 to 10 cm. Additional loculations were broken down digitally in the abscess cavity and more pus drained out. I then made a counter incisions the mons pubis x2 with a scalpel and then irrigated through these counter incisions the abscess cavity. [id number] of warm saline solution was used for the irrigation the abscess cavity also extended posteriorly by about 3cm but did not seem to tunnel very far. After I had irrigated out the abscess cavity and felt that had well drained I then achieved hemostasis the skin edges utilizing electrocautery. The patient had a latex allergy and so could not use Staples drains. Instead I used 10 [place] flat GAVIOTA drains and looped them through the initial opening the abscess cavity and through the counter incisions. They were secured together at the ends with 2-0 silk sutures. Once I had achieved relative hemostasis I then packed the wound tightly with 1in plain Nu Gauze. Almost 5 yd of this was placed into the abscess cavity. The area was then cleaned and then covered with fluff 4x4 gauze ABD pads and Medipore tape. The patient tolerated the procedure well no complications. All sponges, needles, and instrument counts were correct at the end procedure. EBL was _50__cc. The patient was awakened and taken to recovery in stable and satisfactory condition. Implants None Estimated Blood Loss 50 Urine Output 700 Drains Yes ( 10 [place] flat GAVIOTA drains x2) Packing Yes ( 1in plain Nu Gauze) Pathology Other ( swab for wound culture sent to microbiology) Complications No immediate complications Condition Stable Disposition PACU [facility] Billing Surgery - Charge Forward: Surgery Billing
[2023-05-24] MEDS: MICONAZOLE NITRATE 2% VAGINAL CREAM 45 GM TUBE 1 APPFUL VAGINAL (21:36)
[2023-05-24] MEDS: PRAZOSIN HCL 5 MG CAPSULE PO (21:36)
[2023-05-24] MEDS: HYDROcodone/acetaminophen (*CRX) 5-325 MG TABLET 1 TAB PO (21:37)
[2023-05-24] MEDS: rOPINIRole HCL 0.5 MG TABLET PO (21:37)
[2023-05-24] MEDS: QUEtiapine FUMARATE 25 MG TABLET PO (21:37)
[2023-05-25] VITALS (12 sets, daily range): BP systolic 107–130; BP diastolic 47–54; PULSE 88–96; RESP 14–20; TEMP 36.4–36.9; O2SAT 95–100
[2023-05-25 05:50] LABS: Albumin Level 3.5 g/dL (3.5-5.1); Anion Gap 7 mmol/L (4-12); Blood Urea Nitrogen 33 mg/dL (7-17); Calcium 8.7 mg/dL (8.4-10.2); Carbon Dioxide 24 mmol/L (22-30); Chloride 96 mmol/L (98-107); Estimated CRCL calculation 24 ml/min; Estimated Glomerular Filt Rate 18; Glucose 89 mg/dL (65-110); Magnesium 2.2 mg/dL (1.6-2.3); Phosphorus 6.5 mg/dL (2.5-4.5); Potassium 5.4 mmol/L (3.4-5.0); Sodium 127 mmol/L (137-145)
[2023-05-25 05:52] LABS: Basophils Percent Auto 0.4 % (0.2-1.2); Eosinophils Absolute Auto 0.2 K/mm3 (0-0.3); Eosinophils Percent Auto 1.8 % (0-4.4); Hematocrit 26.2 % (37.0-47.0); Hemoglobin 7.7 g/dL (12.0-15.0); Immature Granulocyte Absolute 0.09 K/mm3 (0.00-0.031); Immature Granulocyte Percent A 0.8 % (0-0.5); Lymphocytes Absolute Auto 0.56 K/mm3 (0.9-3.2); Lymphocytes Percent Auto 5.2 % (18.3-44.2); Mean Corpuscular HGB Conc 29.4 g/dl (32-36); Mean Corpuscular Hemoglobin 30.6 pg (26-34); Mean Platelet Volume 11.1 fl (7.4-10.4); Neutrophils Absolute Auto 8.9 K/mm3 (1.3-6.7); Neutrophils Percent Auto 82.8 % (45.5-73.1); Platelet Count Result 284 k/mm3 (150-375); Red Blood Count 2.52 M/mm3 (4.2-5.4); Red Cell Distribution Width 14.9 % (11.5-14.5); White Blood Count 10.8 K/mm3 (4.5-10.0)
[2023-05-25] MEDS: MAGNES & ALUM HYD/SIMETH/DIPHENHYD/LIDOCAINE 119 ML MOUTHWASH BY MOUTH ×3 (06:36→21:22)
[2023-05-25 07:11] LABS: Anisocytosis 2+; Hypochromasia 1+; Platelet Estimate Adequate (Adequate)
[2023-05-25 07:12] LABS: Schistocytes None Seen
[2023-05-25 07:26] LABS: Glucose Point of Care 96 mg/dl (65-105)
[2023-05-25 08:04] LABS: Glucose Point of Care 96 mg/dl (65-105)
[2023-05-25] MEDS: FLUTICASONE/SALMETEROL 115-21 MCG INHALER 1 PUFF 2 PUFF INHALATION ×2 (08:11→20:26)
[2023-05-25] MEDS: SODIUM CHLORIDE 0.9% IV 1,000 ML 100 ML IV CONT ×2 (08:26→17:32)
[2023-05-25] MEDS: PRIMIDONE 50 MG TABLET PO ×2 (09:25→17:31)
[2023-05-25] MEDS: GABAPENTIN 100 MG CAPSULE PO ×3 (09:26→17:31)
[2023-05-25] MEDS: CYANOCOBALAMIN 1,000 MCG TABLET 1000 MCG PO (09:26)
[2023-05-25] MEDS: allopurinoL 100 MG TABLET PO (09:26)
[2023-05-25] MEDS: OXcarbazepine 300 MG TABLET PO ×2 (09:26→21:21)
[2023-05-25] MEDS: FLUoxetine HCL 20 MG CAPSULE 40 MG PO ×2 (09:27→21:21)
[2023-05-25] MEDS: CARBIDOPA/LEVODOPA 25/100 MG TABLET 3 TABLET PO ×3 (09:27→17:31)
[2023-05-25] MEDS: DOXEPIN HCL 25 MG CAPSULE PO ×2 (09:27→21:21)
[2023-05-25] MEDS: AMIODARONE HCL 200 MG TABLET BY MOUTH (09:27)
[2023-05-25] MEDS: PANTOPRAZOLE 40 MG TABLET PO (09:27)
[2023-05-25] MEDS: ATORVASTATIN 40 MG TABLET 80 MG PO (09:27)
[2023-05-25] MEDS: APIXABAN 2.5 MG TABLET PO ×2 (09:32→21:21)
[2023-05-25] MEDS: INSULIN GLARGINE (*BKC) 100 UNITS/ML 24 UNITS SUB-Q (09:33)
[2023-05-25] MEDS: SODIUM ZIRCONIUM CYCLOSILICATE 10 GM POWD.PACK PO (11:43)
--- NOTE | 2023-05-25 11:49 | PM.IMPN ---
Progress Note: A&P Assessment and Plan (1) Somnolence: Code(s): R40.0 - Somnolence Status: Acute Assessment and Plan: Patient more somnolent today. No focal weakness and not confused. Consider related to Xanax scheduled (when it should have been prn) and narcotic combination. Worsened due to poor clearance from NESHA? Stop both Xanax and narcotics. Check ABG Monitor Consider CT brain if she worsens or if she has a change (2) Acute hyperkalemia: Code(s): E87.5 - Hyperkalemia Status: Acute Assessment and Plan: Potassium 5.2 on admission. Potassium has been normal over the past few days but upper limits today. TSH and cortisol okay. Potassium 5.4 today. [place] related to NESHA. Bumex stopped. Not on MANISH/ARB Lokelma. Repeat labs later today IV fluids started. Continue monitor. (3) NESHA (acute kidney injury): Code(s): N17.9 - Acute kidney failure, unspecified Status: Acute Assessment and Plan: Cr jumped to 2.6 today. BUN about the same. She is on her scheduled home Bumex I/O's about even. UOP good yesterday at 1350. BP stable. No contrast exposure. Suspect related to dehydration and diuretics. Consider also ATN from recent infection. [place] in place Monitor UOP, electrolytes and renal fxn (4) Cellulitis of groin, left: Code(s): L03.314 - Cellulitis of groin Status: Acute Assessment and Plan: Labial swelling and and pain. Pelvic CT pelvis suggestive of cellulitis She was started on Ancef and Flagyl added. Diflucan added and completed a 7 day course joint yarner evaluated patient and was concerned for deeper abscess so General surgery consulted. Patient taken to OR 05/22 and had complex I&D of left perineal abscess. WBC back down Culture growing streptococcus anginosus Abx changed to Ertapenem; was on Flagyl IVV but stopped 05/23 Follow closely (5) Type 2 diabetes mellitus: Qualifiers: Diabetes mellitus complication status: without complication Diabetes mellitus snf insulin use: with pinsetter mechanic helper use Qualified Code(s): E11.9 - Type 2 diabetes mellitus without complications; Z79.4 - longterm (current) use of insulin Code(s): E11.9 - Type 2 diabetes mellitus without complications Status: Acute Assessment and Plan: Patient presents with glucose of 340. A1c 12. Hyperglycemia related to uncontrolled diabetes. The patient's blood glucose was reviewed on 05/24 Glucose 89 this morning. Continue AccuCheks covering with sliding scale. Hypoglycemia protocol available as needed. Continue to monitor. Decrease Lantus and Novolog (6) Generalized weakness: Code(s): R53.1 - Weakness Status: Acute Assessment and Plan: Probably related to infection and uncontrolled diabetes B12 low so replacement ordered. Continue PT and OT (7) Acute hyponatremia: Code(s): E87.1 - Hypo-osmolality and hyponatremia Status: Acute Assessment and Plan: Sodium was low on admission probably related hyperglycemia. On chart review does appear that she does have mild hyponatremia chronically. Urine studies more pre-renal but she is on Bumex which could skew these numbers Sodium low but stable. Cortisol and TSH okay Follow (8) Parkinson disease: Code(s): G20 - Parkinson's disease Status: Acute Assessment and Plan: Stable Continue Sinemet Continue PT/OT (9) Chronic kidney disease, stage 3: Qualifiers: Chronic kidney disease stage 3 subtype: stage 3a (GFR 45-59) Qualified Code(s): N18.31 - Chronic kidney disease, stage 3a Code(s): N18.30 - Chronic kidney disease, stage 3 unspecified Status: Acute Assessment and Plan: Cr with wide fluctuation. Baseline unclear but anywhere fro 1.3-2.3 mostly Cr was 1.3 on admission but climbed to 1.6-1.8 and was stable until up to 2.6 today As above Follow. (10) Morbid obesity with BMI of 50.0-59.9
[2023-05-25 11:51] LABS: Glucose Point of Care 105 mg/dl (65-105)
--- NOTE | 2023-05-25 12:21 | PM.PNGS ---
Progress Note: A&P Assessment and Plan (1) Abscess of groin, left: Code(s): L02.214 - Cutaneous abscess of groin Status: Acute Assessment and Plan: better, cont local wound care and abx Subjective Subjective Date/Time Seen: 05/25/23 12:21 Interval history: still pretty lethargic, pain in pubic area much improved Review of Systems Review of Systems: All systems reviewed & are unremarkable except as noted in HPI and below Exam Const: General: cooperative, healthy appearing, ill appearing, lethargic and tired appearing Resp: Auscultation: diminished lung sounds Cardio: Rate: regular rate Rhythm: regular rhythm GI: Inspection: normal to inspection Skin: Other: abscess - good drainage, dressing C/D/I Objective Data Vital Signs Vital Signs: Vital Signs - 24 hr 05/24/23 16:00 05/24/23 18:30 05/24/23 19:50 Temperature 36.7 C Pulse Rate 96 97 92 Respiratory Rate 18 18 Blood Pressure 103/54 L Pulse Oximetry 92 Oxygen Delivery Oxygen Flow Rate Fraction of Inspired Oxygen 05/24/23 19:51 05/24/23 22:48 05/24/23 20:00 Temperature 36.7 C Pulse Rate 97 96 Respiratory Rate 20 Blood Pressure 127/69 Pulse Oximetry 91 99 Oxygen Delivery Nasal Cannula Oxygen Flow Rate 2 Fraction of Inspired Oxygen 05/24/23 20:00 05/25/23 00:00 05/25/23 04:00 Temperature Pulse Rate 96 94 Respiratory Rate Blood Pressure Pulse Oximetry 95 Oxygen Delivery Nasal Cannula Oxygen Flow Rate 2 Fraction of Inspired Oxygen 05/25/23 06:54 05/25/23 08:11 05/25/23 08:11 Temperature 36.8 C Pulse Rate 90 90 Respiratory Rate 20 18 Blood Pressure 121/47 L Pulse Oximetry 99 95 Oxygen Delivery Nasal Cannula Oxygen Flow Rate 2 Fraction of Inspired Oxygen 28 05/25/23 09:27 Temperature Pulse Rate 90 Respiratory Rate Blood Pressure Pulse Oximetry Oxygen Delivery Oxygen Flow Rate Fraction of Inspired Oxygen Intake/Output Intake/Output: Intake & Output 05/22/23 05/23/23 05/24/23 05/25/23 23:59 23:59 23:59 23:59 Intake Total 2420 1000 1600 500 Output Total 1250 2200 2050 700 Balance 1170 -1200 -450 -200 Meds/Results Medications: Active Medications Generic Name Dose Route Start Last Admin Trade Name Freq PRN Reason Stop Dose Admin Acetaminophen 1,000 mg 05/23/23 17:34 Acetaminophen 500 Mg Tablet PO Q6H PRN Mild Pain (1-3) or Fever Hydrocodone Bitart/Acetaminophen 1 tab 05/23/23 17:34 05/24/23 21:37 Hydrocodone/Acetaminophen (*Crx) 5-325 Mg Tablet PO 1 tab Q4H PRN Administration Pain Rated 4-6 Albuterol 2 puff 05/18/23 00:15 Albuterol Sulfate (*Sp) Aerosol 1 Puff INHALATION QID PRN Shortness Of Breath Or Wheezing Albuterol/Ipratropium 3 ml 05/22/23 13:25 05/22/23 20:39 Ipratropium 0.5 Mg/Albuterol Sulfate 2.5 Mg Ampul.Neb 3 Ml INHALATION 3 ml Q6HRT PRN Administration Shortness Of Breath Or Wheezing Allopurinol 100 mg 05/18/23 08:00 05/25/23 09:26 Allopurinol 100 Mg Tablet PO 100 mg DAILY@0800 RADHA Administration Alprazolam 1 mg 05/25/23 10:34 Alprazolam (*Crx) 0.5 Mg Tablet PO TID PRN Anxiety Amiodarone HCl 200 mg 05/18/23 08:00 05/25/23 09:27 Amiodarone Hcl 200 Mg Tablet BY MOUTH 200 mg DAILY@0800 RADHA Administration Apixaban 2.5 mg 05/18/23 00:30 05/25/23 09:32 Apixaban 2.5 Mg Tablet PO 2.5 mg Q12HR RADHA Administration Atorvastatin Calcium 80 mg 05/18/23 09:00 05/25/23 09:27 Atorvastatin 40 Mg Tablet PO 80 mg QAM RADHA Administration Carbidopa/Levodopa 3 tablet 05/18/23 08:00 05/25/23 09:27 Carbidopa/Levodopa 25/100 Mg Tablet PO 3 tablet TIDWM RADHA Administration Cyanocobalamin 1,000 mcg 05/23/23 09:00 05/25/23 09:26 Cyanocobalamin 1,000 Mcg Tablet PO 1,000 mcg QAM RADHA Administration Dextrose 12.5 gm 05/18/23 11:42 Dextrose 50% 25 Gm/50 Ml Syringe IV PU
[2023-05-25 13:08] LABS: Anion Gap 8 mmol/L (4-12); Blood Urea Nitrogen 37 mg/dL (7-17); Calcium 8.5 mg/dL (8.4-10.2); Carbon Dioxide 23 mmol/L (22-30); Chloride 97 mmol/L (98-107); Estimated CRCL calculation 25 ml/min; Estimated Glomerular Filt Rate 19; Glucose 122 mg/dL (65-110); Potassium 4.9 mmol/L (3.4-5.0); Sodium 128 mmol/L (137-145)
--- NOTE | 2023-05-25 15:28 | PCOTNOTE ---
Attempted to see pt for Occupational Therapy treatment. Pt is very lethargic on this date and is unable to keep eyes open to have conversation with therapy.
--- NOTE | 2023-05-25 15:43 | PCPTNOTE ---
attempted PT treatment today, pt sleeping upon walking in, pt woke for 5 seconds to explain she is too tired then fell back asleep with immediate heavy breathing/wimpering and unable to wake again upon requesting pt to open eyes
[2023-05-25 16:28] LABS: Alveolar/Arterial O2 Gradient 60.5 mmHg; Fractional Inspired Oxygen 28 %; HCO3 ABG 22.1 mEq/l (22.0-26.0); Oxygen Content ABG 11.1 %vol (16.0-22.0); Oxygen Saturation ABG 95.6 % (95.0-100.0); Oxyhemoglobin 94.6 % THb (90.0-100.0); PCO2 ABG 45.3 mmHg (35.0-45.0); PO2 ABG 85.7 mmHg (80.0-100.0); PO2 FiO2 Ratio Arterial Blood 3.06 %; Total Hemoglobin 8.2 g/dL (12.0-18.0); pH ABG 7.306 (7.350-7.450)
[2023-05-25 16:29] LABS: Device NASAL CANNULA; Modified Allen's Test Pass; Site Drawn RIGHT RADIAL
[2023-05-25 16:42] LABS: Glucose Point of Care 115 mg/dl (65-105)
[2023-05-25] MEDS: ERTAPENEM 1 GM/NS 50 ML 1 GM/50 ML BAG IVPB (17:30)
[2023-05-25] MEDS: MICONAZOLE NITRATE 2% VAGINAL CREAM 45 GM TUBE 1 APPFUL VAGINAL (21:22)
[2023-05-25] MEDS: PRAZOSIN HCL 5 MG CAPSULE PO (21:22)
[2023-05-25] MEDS: QUEtiapine FUMARATE 25 MG TABLET PO (21:23)
[2023-05-25] MEDS: ACETAMINOPHEN 500 MG TABLET 1000 MG PO (21:23)
[2023-05-25] MEDS: rOPINIRole HCL 0.5 MG TABLET PO (21:23)
[2023-05-25 21:39] LABS: Glucose Point of Care 115 mg/dl (65-105)
[2023-05-25 22:16] LABS: Glucose Point of Care 127 mg/dl (65-105)
[2023-05-26] VITALS (16 sets, daily range): BP systolic 106–120; BP diastolic 49–75; PULSE 77–90; RESP 18–22; TEMP 36.6–37.1; O2SAT 98–100; BMI 10.0
[2023-05-26] MEDS: SODIUM CHLORIDE 0.9% IV 1,000 ML 100 ML IV CONT (03:32)
[2023-05-26] MEDS: MAGNES & ALUM HYD/SIMETH/DIPHENHYD/LIDOCAINE 119 ML MOUTHWASH BY MOUTH (06:00)
[2023-05-26] MEDS: FLUTICASONE/SALMETEROL 115-21 MCG INHALER 1 PUFF 2 PUFF INHALATION ×2 (07:14→20:46)
[2023-05-26 07:40] LABS: Hematocrit 23.6 % (37.0-47.0); Mean Corpuscular HGB Conc 29.2 g/dl (32-36); Mean Corpuscular Hemoglobin 30.5 pg (26-34); Mean Corpuscular Volume 104.4 fl (80-100); Mean Platelet Volume 10.4 fl (7.4-10.4); Platelet Count Result 250 k/mm3 (150-375); Red Blood Count 2.26 M/mm3 (4.2-5.4); Red Cell Distribution Width 14.7 % (11.5-14.5); White Blood Count 7.9 K/mm3 (4.5-10.0)
[2023-05-26 07:45] LABS: Hemoglobin 6.9 g/dL (12.0-15.0)
[2023-05-26 07:47] LABS: Anion Gap 6 mmol/L (4-12); Blood Urea Nitrogen 36 mg/dL (7-17); Calcium 8.1 mg/dL (8.4-10.2); Carbon Dioxide 23 mmol/L (22-30); Chloride 99 mmol/L (98-107); Estimated CRCL calculation 24 ml/min; Estimated Glomerular Filt Rate 18; Glucose 103 mg/dL (65-110); Potassium 4.6 mmol/L (3.4-5.0); Sodium 128 mmol/L (137-145)
--- NOTE | 2023-05-26 07:54 | PCPTNOTE ---
Pt refused PT on 05/24.
[2023-05-26 08:07] LABS: Glucose Point of Care 97 mg/dl (65-105)
[2023-05-26] MEDS: allopurinoL 100 MG TABLET PO (08:35)
[2023-05-26] MEDS: AMIODARONE HCL 200 MG TABLET BY MOUTH (08:35)
[2023-05-26] MEDS: ATORVASTATIN 40 MG TABLET 80 MG PO (08:36)
[2023-05-26] MEDS: CARBIDOPA/LEVODOPA 25/100 MG TABLET 3 TABLET PO ×3 (08:36→16:03)
[2023-05-26] MEDS: CYANOCOBALAMIN 1,000 MCG TABLET 1000 MCG PO (08:36)
[2023-05-26] MEDS: APIXABAN 2.5 MG TABLET PO ×2 (08:37→20:50)
[2023-05-26] MEDS: PANTOPRAZOLE 40 MG TABLET PO (08:37)
[2023-05-26] MEDS: OXcarbazepine 300 MG TABLET PO ×2 (08:37→20:50)
[2023-05-26] MEDS: GABAPENTIN 100 MG CAPSULE PO ×3 (08:37→16:03)
[2023-05-26] MEDS: PRIMIDONE 50 MG TABLET PO ×2 (08:37→16:03)
[2023-05-26] MEDS: FLUoxetine HCL 20 MG CAPSULE 40 MG PO ×2 (08:37→20:50)
[2023-05-26] MEDS: DOXEPIN HCL 25 MG CAPSULE PO ×2 (08:42→20:50)
[2023-05-26] MEDS: SODIUM CHLORIDE 0.9% IV 250 ML 30 ML IV CONT (08:42)
[2023-05-26] MEDS: INSULIN GLARGINE (*BKC) 100 UNITS/ML 18 UNITS SUB-Q (08:46)
[2023-05-26] MEDS: ACETAMINOPHEN 500 MG TABLET 1000 MG PO ×3 (08:55→21:54)
[2023-05-26 09:03] LABS: Iron 64 ug/dL (37-170)
[2023-05-26 09:12] LABS: Percent Iron Saturation 31 % (20-50)
--- NOTE | 2023-05-26 10:28 | PM.PNGS ---
Progress Note: A&P Assessment and Plan (1) Abscess of groin, left: Code(s): L02.214 - Cutaneous abscess of groin Status: Acute Assessment and Plan: improving, WBC normalized, cont local wound care and abx, getting transfusion today, PT/OT Subjective Subjective Date/Time Seen: 05/26/23 10:28 Interval history: feels ok, c/o some incisional pain, feels weak and tired Review of Systems Review of Systems: All systems reviewed & are unremarkable except as noted in HPI and below Exam Const: General: cooperative, comfortable, no acute distress and ill appearing Resp: Auscultation: diminished lung sounds Cardio: Rate: regular rate Rhythm: regular rhythm GI: Inspection: normal to inspection : Other: L groin abscess tracking to mon pubis - mod s/s drainage, drains in place, decreasing inflammation Objective Data Vital Signs Vital Signs: Vital Signs - 24 hr 05/25/23 13:55 05/25/23 12:00 05/25/23 16:00 Temperature 36.9 C Pulse Rate 93 88 93 Respiratory Rate 14 Blood Pressure 110/54 L Pulse Oximetry 95 Oxygen Delivery Oxygen Flow Rate 05/25/23 17:50 05/25/23 21:47 05/25/23 20:00 Temperature 36.9 C 36.4 C Pulse Rate 94 92 92 Respiratory Rate 14 16 Blood Pressure 107/48 L 130/53 L Pulse Oximetry 98 100 Oxygen Delivery Oxygen Flow Rate 05/25/23 20:00 05/26/23 00:00 05/26/23 04:00 Temperature Pulse Rate 86 86 Respiratory Rate Blood Pressure Pulse Oximetry 100 Oxygen Delivery Nasal Cannula Oxygen Flow Rate 2 05/26/23 07:15 05/26/23 07:15 05/26/23 08:00 Temperature Pulse Rate 84 84 Respiratory Rate 18 18 Blood Pressure Pulse Oximetry 99 99 Oxygen Delivery Nasal Cannula Nasal Cannula Oxygen Flow Rate 2 2 05/26/23 08:35 Temperature Pulse Rate 78 Respiratory Rate Blood Pressure Pulse Oximetry Oxygen Delivery Oxygen Flow Rate Intake/Output Intake/Output: Intake & Output 05/23/23 05/24/23 05/25/23 05/26/23 23:59 23:59 23:59 23:59 Intake Total 1000 1650 1950 1440 Output Total 2200 2050 1000 300 Balance -1200 -574 765 7936 Meds/Results Medications: Active Medications Generic Name Dose Route Start Last Admin Trade Name Freq PRN Reason Stop Dose Admin Acetaminophen 1,000 mg 05/23/23 17:34 05/26/23 08:55 Acetaminophen 500 Mg Tablet PO 1,000 mg Q6H PRN Administration Mild Pain (1-3) or Fever Albuterol 2 puff 05/18/23 00:15 Albuterol Sulfate (*Sp) Aerosol 1 Puff INHALATION QID PRN Shortness Of Breath Or Wheezing Albuterol/Ipratropium 3 ml 05/22/23 13:25 05/22/23 20:39 Ipratropium 0.5 Mg/Albuterol Sulfate 2.5 Mg Ampul.Neb 3 Ml INHALATION 3 ml Q6HRT PRN Administration Shortness Of Breath Or Wheezing Allopurinol 100 mg 05/18/23 08:00 05/26/23 08:35 Allopurinol 100 Mg Tablet PO 100 mg DAILY@0800 RADHA Administration Amiodarone HCl 200 mg 05/18/23 08:00 05/26/23 08:35 Amiodarone Hcl 200 Mg Tablet BY MOUTH 200 mg DAILY@0800 RADHA Administration Apixaban 2.5 mg 05/18/23 00:30 05/26/23 08:37 Apixaban 2.5 Mg Tablet PO 2.5 mg Q12HR RADHA Administration Atorvastatin Calcium 80 mg 05/18/23 09:00 05/26/23 08:36 Atorvastatin 40 Mg Tablet PO 80 mg QAM RADHA Administration Carbidopa/Levodopa 3 tablet 05/18/23 08:00 05/26/23 08:36 Carbidopa/Levodopa 25/100 Mg Tablet PO 3 tablet TIDWM RADHA Administration Cyanocobalamin 1,000 mcg 05/23/23 09:00 05/26/23 08:36 Cyanocobalamin 1,000 Mcg Tablet PO 1,000 mcg QAM RADHA Administration Dextrose 12.5 gm 05/18/23 11:42 Dextrose 50% 25 Gm/50 Ml Syringe IV PUSH PRN PRN Hypoglycemia Protocol Diphenhydramine HCl 25 mg 05/18/23 14:17 05/23/23 01:51 Diphenhydramine Hcl Inj 50 Mg/Ml Vial IV PUSH 25 mg Q4H PRN Administration Itching Doxepin HCl 25 mg 05/18/23 00:30 05/26/23 08:42 Doxepin Hcl 25 Mg Capsule PO 25 mg Q1
[2023-05-26 12:02] LABS: Glucose Point of Care 128 mg/dl (65-105)
[2023-05-26 16:58] LABS: Glucose Point of Care 149 mg/dl (65-105)
--- NOTE | 2023-05-26 17:12 | PM.IMPN ---
Progress Note: A&P Assessment and Plan (1) Anemia: Qualifiers: Anemia type: due to chronic kidney disease Chronic kidney disease stage: stage 4 (severe) Qualified Code(s): N18.4 - Chronic kidney disease, stage 4 (severe); D63.1 - Anemia in chronic kidney disease Code(s): D64.9 - Anemia, unspecified Status: Acute Assessment and Plan: Patient with chronic anemia with Hgb mostly in the 7-8 range. B12 low at 235 so replacement ordered. Iron studies showing Fe 64, TIBC 204, TSat 315 and ferritin 485. Since admission, Hgb was mostly in the 8-9 range but has drifted down to 7.7 yesterday. No schistocytes IV fluids started and Hgb this morning was 6.9 which could be dilutional. No obvious acute blood loss Transfuse PRBC and monitor HH for stability. Check for occult blood in stool (2) Somnolence: Code(s): R40.0 - Somnolence Status: Acute Assessment and Plan: Patient was more somnolent 05/24. No focal weakness and not confused. ABG 7.31/45/86 on 2L [place] related to Xanax scheduled (when it should have been prn) and narcotic combination. Worsened due to poor clearance from NESHA? We stopped both Xanax and narcotics. mental status much better. Hold narcotics. Have patient off loading from her buttock and out of bed. (3) Acute hyperkalemia: Code(s): E87.5 - Hyperkalemia Status: Acute Assessment and Plan: Potassium 5.2 on admission. Potassium has been normal over the past few days but increased again TSH and cortisol okay. Potassium 5.4 on 05/24. [place] related to NESHA. Bumex stopped. Not on MANISH/ARB Lokelma once with benefit. Potassium normal today Continue monitor. (4) NESHA (acute kidney injury): Code(s): N17.9 - Acute kidney failure, unspecified Status: Acute Assessment and Plan: Cr jumped to 2.6 on 05/24. Her home scheduled Bumex was stopped BP stable. No contrast exposure. Suspect related to dehydration and diuretics. Consider also ATN from recent infection. [place] in place UOP 1L yesterday but only 300mL so far today. Check urine studies. IV fluids stopped. Monitor UOP, electrolytes and renal fxn (5) Cellulitis of groin, left: Code(s): L03.314 - Cellulitis of groin Status: Acute Assessment and Plan: Labial swelling and and pain. Pelvic CT pelvis suggestive of cellulitis She was started on Ancef and Flagyl added. Diflucan added and completed a 7 day course deposition operator evaluated patient and was concerned for deeper abscess so General surgery consulted. Patient taken to OR 05/22 and had complex I&D of left perineal abscess. WBC normal Wound Culture growing streptococcus anginosus Abx changed to Ertapenem; was on Flagyl IV but stopped 05/23 per PharmD ID recommendation. Follow closely (6) Type 2 diabetes mellitus: Qualifiers: Diabetes mellitus joint terminal attack controller insulin use: with shelter use Diabetes mellitus complication status: without complication Qualified Code(s): E11.9 - Type 2 diabetes mellitus without complications; Z79.4 - penitentiary (current) use of insulin Code(s): E11.9 - Type 2 diabetes mellitus without complications Status: Acute Assessment and Plan: Patient presents with glucose of 340. A1c 12. Hyperglycemia related to uncontrolled diabetes. The patient's blood glucose was reviewed on 05/25 Glucose better at 103 this morning. Continue AccuCheks covering with sliding scale. Hypoglycemia protocol available as needed. Continue to monitor. Continue lower dose Lantus and Novolog (7) Generalized weakness: Code(s): R53.1 - Weakness Status: Acute Assessment and Plan: Probably related to infection and uncontrolled diabetes B12 low so replacement ordered. Continue PT and OT (8) Acute hyponatremia: Code(s): E87.1 - Hypo-osmolality and hyponatremia Status: Acute Assessment and Plan: Sodium was low on admission probably related hypergl
[2023-05-26] MEDS: ERTAPENEM 1 GM/NS 50 ML 1 GM/50 ML BAG IVPB (17:13)
[2023-05-26 17:18] LABS: Glucose Point of Care 150 mg/dl (65-105)
--- NOTE | 2023-05-26 17:39 | PC.NURSE ---
Dr Giles notified of glucose 150 and patient not eating dinner. Scheduled novolog insulin held.
[2023-05-26 18:53] LABS: Urea Random Urine 522 MG/DL
[2023-05-26 19:01] LABS: Sodium Urine Random 7 meq/L
[2023-05-26 19:06] LABS: Eosinophil Urine None Seen % (None Seen); Urine Eos QC 2nd Tech Confirmed
[2023-05-26] MEDS: QUEtiapine FUMARATE 25 MG TABLET PO (20:50)
[2023-05-26] MEDS: PRAZOSIN HCL 5 MG CAPSULE PO (20:50)
[2023-05-26] MEDS: rOPINIRole HCL 0.5 MG TABLET PO (20:50)
[2023-05-26] MEDS: diphenhydrAMINE HCl INJ 50 MG/ML VIAL 25 MG IV PUSH (20:56)
[2023-05-26 20:57] LABS: Glucose Point of Care 152 mg/dl (65-105)
[2023-05-27] VITALS (14 sets, daily range): BP systolic 128–138; BP diastolic 56–70; PULSE 76–91; RESP 12–18; TEMP 36.1–36.4; O2SAT 97–99
[2023-05-27 05:14] LABS: Basophils Absolute Auto 0.1 K/mm3 (0.0-0.1); Basophils Percent Auto 0.7 % (0.2-1.2); Eosinophils Absolute Auto 0.3 K/mm3 (0-0.3); Eosinophils Percent Auto 4.6 % (0-4.4); Hemoglobin 8.2 g/dL (12.0-15.0); Immature Granulocyte Absolute 0.13 K/mm3 (0.00-0.031); Immature Granulocyte Percent A 1.8 % (0-0.5); Lymphocytes Absolute Auto 0.62 K/mm3 (0.9-3.2); Lymphocytes Percent Auto 8.6 % (18.3-44.2); Mean Corpuscular HGB Conc 30.4 g/dl (32-36); Mean Corpuscular Hemoglobin 31.1 pg (26-34); Mean Corpuscular Volume 102.3 fl (80-100); Monocytes Absolute Auto 0.6 K/mm3 (0.1-0.6); Monocytes Percent Auto 8.3 % (2.6-8.5); Neutrophils Absolute Auto 5.5 K/mm3 (1.3-6.7); Platelet Count Result 271 k/mm3 (150-375); Red Blood Count 2.64 M/mm3 (4.2-5.4); Red Cell Distribution Width 14.7 % (11.5-14.5); White Blood Count 7.2 K/mm3 (4.5-10.0)
[2023-05-27 05:28] LABS: Albumin Level 3.3 g/dL (3.5-5.1); Alkaline Phosphatase 133 U/L (38-126); Anion Gap 6 mmol/L (4-12); Aspartate Amino Transferase 30 U/L (14-36); Bilirubin,Total 0.4 mg/dL (0.2-1.3); Blood Urea Nitrogen 38 mg/dL (7-17); Calcium 8.7 mg/dL (8.4-10.2); Carbon Dioxide 23 mmol/L (22-30); Chloride 100 mmol/L (98-107); Creatine Kinase 406 U/L (30-135); Estimated CRCL calculation 26 ml/min; Estimated Glomerular Filt Rate 20; Glucose 123 mg/dL (65-110); Magnesium 2.5 mg/dL (1.6-2.3); Potassium 4.5 mmol/L (3.4-5.0); Sodium 129 mmol/L (137-145)
[2023-05-27] MEDS: ACETAMINOPHEN 500 MG TABLET 1000 MG PO ×2 (05:28→19:50)
[2023-05-27] MEDS: diphenhydrAMINE HCl INJ 50 MG/ML VIAL 25 MG IV PUSH ×2 (05:32→12:27)
[2023-05-27 05:55] LABS: Alanine Aminotransferase < 6 U/L (6-35)
[2023-05-27] MEDS: FLUTICASONE/SALMETEROL 115-21 MCG INHALER 1 PUFF 2 PUFF INHALATION ×2 (07:39→19:41)
[2023-05-27 08:18] LABS: Glucose Point of Care 112 mg/dl (65-105)
--- NOTE | 2023-05-27 08:56 | PCNWS ---
Weekly nutritional screen. Patient is tolerating current diet with adequate intake. No weight loss reported. No nutritional needs at this time.
[2023-05-27] MEDS: CYANOCOBALAMIN 1,000 MCG TABLET 1000 MCG PO (09:05)
[2023-05-27] MEDS: FLUoxetine HCL 20 MG CAPSULE 40 MG PO ×2 (09:05→21:53)
[2023-05-27] MEDS: allopurinoL 100 MG TABLET PO (09:05)
[2023-05-27] MEDS: PRIMIDONE 50 MG TABLET PO ×2 (09:06→16:43)
[2023-05-27] MEDS: ATORVASTATIN 40 MG TABLET 80 MG PO (09:06)
[2023-05-27] MEDS: APIXABAN 2.5 MG TABLET PO ×2 (09:06→21:53)
[2023-05-27] MEDS: DOXEPIN HCL 25 MG CAPSULE PO ×2 (09:06→21:54)
[2023-05-27] MEDS: PANTOPRAZOLE 40 MG TABLET PO (09:06)
[2023-05-27] MEDS: AMIODARONE HCL 200 MG TABLET BY MOUTH (09:06)
[2023-05-27] MEDS: OXcarbazepine 300 MG TABLET PO ×2 (09:07→21:53)
[2023-05-27] MEDS: GABAPENTIN 100 MG CAPSULE PO ×3 (09:07→16:43)
[2023-05-27] MEDS: CARBIDOPA/LEVODOPA 25/100 MG TABLET 3 TABLET PO ×3 (09:07→16:43)
[2023-05-27] MEDS: INSULIN GLARGINE (*BKC) 100 UNITS/ML 18 UNITS SUB-Q (09:08)
[2023-05-27 11:59] LABS: Glucose Point of Care 138 mg/dl (65-105)
--- NOTE | 2023-05-27 15:49 | PM.IMPN ---
Progress Note: A&P Assessment and Plan (1) Anemia: Qualifiers: Anemia type: due to chronic kidney disease Chronic kidney disease stage: stage 4 (severe) Qualified Code(s): N18.4 - Chronic kidney disease, stage 4 (severe); D63.1 - Anemia in chronic kidney disease Code(s): D64.9 - Anemia, unspecified Status: Acute Assessment and Plan: Patient with chronic anemia with Hgb mostly in the 7-8 range. B12 low at 235 so replacement ordered. Iron studies showing Fe 64, TIBC 204, TSat 315 and ferritin 485. Since admission, Hgb was mostly in the 8-9 range but has drifted down to 6.9 yesterday. No schistocytes Could be dilutional from IV fluids. No obvious acute blood loss Transfused 1U PRBC and Hgb 8.2 today. Monitor HH for stability. Transfuse as needed. (2) Somnolence: Code(s): R40.0 - Somnolence Status: Acute Assessment and Plan: Patient was more somnolent 05/24. No focal weakness and not confused. ABG 7.31/45/86 on 2L [place] related to Xanax scheduled (when it should have been prn) and narcotic combination. Worsened due to poor clearance from NESHA? We stopped both Xanax and narcotics. mental status much better. Continue to hold narcotics. Have patient off loading from her buttock and out of bed. (3) Acute hyperkalemia: Code(s): E87.5 - Hyperkalemia Status: Acute Assessment and Plan: Potassium 5.2 on admission. Potassium has been normal over the past few days but increased again TSH and cortisol okay. Potassium 5.4 on 05/24. [place] related to NESHA. Bumex stopped. Not on MANISH/ARB Lokelma once with benefit. Potassium normal today Continue monitor. Okay to stop tele (4) NESHA (acute kidney injury): Code(s): N17.9 - Acute kidney failure, unspecified Status: Acute Assessment and Plan: Cr jumped to 2.6 on 05/24. Her home scheduled Bumex was stopped BP stable. No contrast exposure. Suspect related to dehydration and diuretics. Consider also ATN from recent infection. [place] in place UOP 650mL yesterday and only 500mL so far today. Richard 7 with FENa 0.1% and FEUrea 35% to suggest pre-renal Cr better at 2,4 Monitor UOP, electrolytes and renal fxn. Repeat IV fluids x 1L (5) Cellulitis of groin, left: Code(s): L03.314 - Cellulitis of groin Status: Acute Assessment and Plan: Labial swelling and and pain. Pelvic CT pelvis suggestive of cellulitis She was started on Ancef and Flagyl added. Diflucan added and completed a 7 day course district administrator evaluated patient and was concerned for deeper abscess so General surgery consulted. Patient taken to OR 05/22 and had complex I&D of left perineal abscess. Wound Culture growing streptococcus anginosus Abx changed to Ertapenem; was on Flagyl IV but stopped 05/23 per PharmD ID recommendation. WBC normal. Appreciate GenSurg input. 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 A1c 12. Hyperglycemia related to uncontrolled diabetes. The patient's blood glucose was reviewed on 05/26 Glucose better at 123 this morning. Continue AccuCheks covering with sliding scale. Hypoglycemia protocol available as needed. Continue to monitor. Continue lower dose Lantus; meal time Novolog stopped (7) Generalized weakness: Code(s): R53.1 - Weakness Status: Acute Assessment and Plan: Probably related to infection and uncontrolled diabetes B12 low so replacement ordered. Continue PT and OT (8) Acute hyponatremia: Code(s): E87.1 - Hypo-osmolality and hyponatrem
[2023-05-27] MEDS: SODIUM CHLORIDE 0.9% IV 1,000 ML 100 ML IV CONT (16:44)
[2023-05-27 16:49] LABS: Glucose Point of Care 144 mg/dl (65-105)
[2023-05-27] MEDS: ERTAPENEM 1 GM/NS 50 ML 1 GM/50 ML BAG IVPB (18:06)
[2023-05-27 20:33] LABS: Glucose Point of Care 135 mg/dl (65-105)
[2023-05-27] MEDS: QUEtiapine FUMARATE 25 MG TABLET PO (21:53)
[2023-05-27] MEDS: PRAZOSIN HCL 5 MG CAPSULE PO (21:53)
[2023-05-27] MEDS: rOPINIRole HCL 0.5 MG TABLET PO (21:53)
[2023-05-28] VITALS (8 sets, daily range): BP systolic 104–138; BP diastolic 58–84; PULSE 76–90; RESP 12–16; TEMP 36.2–36.6; O2SAT 94–99
[2023-05-28] MEDS: hydrOXYzine HCL 12.5 MG TABLET PO (03:14)
[2023-05-28 05:55] LABS: Hemoglobin 8.1 g/dL (12.0-15.0); Mean Corpuscular HGB Conc 28.9 g/dl (32-36); Mean Corpuscular Hemoglobin 29.9 pg (26-34); Mean Corpuscular Volume 103.3 fl (80-100); Mean Platelet Volume 10.7 fl (7.4-10.4); Platelet Count Result 301 k/mm3 (150-375); Red Blood Count 2.71 M/mm3 (4.2-5.4); Red Cell Distribution Width 14.6 % (11.5-14.5); White Blood Count 7.1 K/mm3 (4.5-10.0)
[2023-05-28 06:07] LABS: Albumin Level 3.3 g/dL (3.5-5.1); Anion Gap 6 mmol/L (4-12); Blood Urea Nitrogen 37 mg/dL (7-17); Calcium 8.5 mg/dL (8.4-10.2); Carbon Dioxide 23 mmol/L (22-30); Chloride 100 mmol/L (98-107); Estimated CRCL calculation 31 ml/min; Estimated Glomerular Filt Rate 23; Glucose 105 mg/dL (65-110); Phosphorus 4.4 mg/dL (2.5-4.5); Potassium 4.8 mmol/L (3.4-5.0); Sodium 129 mmol/L (137-145)
[2023-05-28] MEDS: FLUTICASONE/SALMETEROL 115-21 MCG INHALER 1 PUFF 2 PUFF INHALATION ×2 (07:00→20:01)
[2023-05-28 08:07] LABS: Glucose Point of Care 99 mg/dl (65-105)
[2023-05-28] MEDS: CARBIDOPA/LEVODOPA 25/100 MG TABLET 3 TABLET PO ×3 (10:49→17:35)
[2023-05-28] MEDS: DOXEPIN HCL 25 MG CAPSULE PO ×2 (10:51→21:01)
[2023-05-28] MEDS: PANTOPRAZOLE 40 MG TABLET PO (10:51)
[2023-05-28] MEDS: allopurinoL 100 MG TABLET PO (10:52)
[2023-05-28] MEDS: ATORVASTATIN 40 MG TABLET 80 MG PO (10:53)
[2023-05-28] MEDS: CYANOCOBALAMIN 1,000 MCG TABLET 1000 MCG PO (10:54)
[2023-05-28] MEDS: GABAPENTIN 100 MG CAPSULE PO ×3 (10:55→17:37)
[2023-05-28] MEDS: APIXABAN 2.5 MG TABLET PO ×2 (10:55→21:01)
[2023-05-28] MEDS: PRIMIDONE 50 MG TABLET PO ×2 (10:55→17:37)
[2023-05-28] MEDS: AMIODARONE HCL 200 MG TABLET BY MOUTH (10:56)
[2023-05-28] MEDS: FLUoxetine HCL 20 MG CAPSULE 40 MG PO ×2 (10:57→21:01)
[2023-05-28] MEDS: OXcarbazepine 300 MG TABLET PO ×2 (11:00→21:01)
[2023-05-28] MEDS: INSULIN GLARGINE (*BKC) 100 UNITS/ML 18 UNITS SUB-Q (11:01)
[2023-05-28 12:14] LABS: Glucose Point of Care 124 mg/dl (65-105)
--- NOTE | 2023-05-28 12:39 | PM.PNGS ---
Progress Note: A&P Assessment and Plan (1) Abscess of groin, left: Code(s): L02.214 - Cutaneous abscess of groin Status: Acute Assessment and Plan: Postop day 5 complex I&D of left perineal abscess. Abscess is adequately drained with induration and swelling improving. WBC normalized. Stable from a surgical standpoint to discharge when she is medically stable. CC working on SNF placement for therapy and wound care. Continue dry cover dressing changes with gauze and ABD pads. Continue to monitor the drains for now, but we may consider removing them prior to discharge. Plan I have discussed the patient's case and plan of care with Dr. Veronica. Subjective Subjective Date/Time Seen: 05/28/23 12:39 Patient reports: no new complaints Interval history: Patient seen with nursing staff. She denies any groin pain. She does report some soreness on her bottom from lying in bed, but otherwise no other complaints. Exam Const: General: comfortable and no acute distress Nutritional Appearance: obese morbidly obese Orientation/consciousness: patient oriented x3 : Other: Left perineal wound with [address] through counter incisions near the pubis, surrounding erythema and induration improved, no purulent drainage noted, minimal serosanguineous drainage on the gauze dressing that was removed. Objective Data Vital Signs Vital Signs: Vital Signs - 24 hr 05/27/23 14:28 05/27/23 16:00 05/27/23 19:43 Temperature 97.1 F L Pulse Rate 86 77 Respiratory Rate 12 Blood Pressure 138/64 Pulse Oximetry 99 98 Oxygen Delivery Nasal Cannula Oxygen Flow Rate 2 05/27/23 19:43 05/27/23 21:38 05/27/23 22:02 Temperature 96.9 F L Pulse Rate 81 86 Respiratory Rate 18 13 Blood Pressure 135/70 Pulse Oximetry 99 99 Oxygen Delivery Nasal Cannula Oxygen Flow Rate 2 05/28/23 05:05 05/28/23 07:00 05/28/23 07:00 Temperature 97.1 F L Pulse Rate 76 77 77 Respiratory Rate 12 16 16 Blood Pressure 125/58 L Pulse Oximetry 99 96 Oxygen Delivery Nasal Cannula Oxygen Flow Rate 2 05/28/23 08:00 05/28/23 12:07 Temperature 97.8 F Pulse Rate 90 Respiratory Rate 14 Blood Pressure 138/75 Pulse Oximetry 96 99 Oxygen Delivery Nasal Cannula Oxygen Flow Rate 2 Intake/Output Intake/Output: Intake & Output 05/25/23 05/26/23 05/27/23 05/28/23 23:59 23:59 23:59 23:59 Intake Total 1950 2520 580 870 Output Total 6901 519 0171 550 Balance 950 1870 -520 320 Meds/Results Medications: Active Medications Generic Name Dose Route Start Last Admin Trade Name Freq PRN Reason Stop Dose Admin Acetaminophen 1,000 mg 05/23/23 17:34 05/27/23 19:50 Acetaminophen 500 Mg Tablet PO 1,000 mg Q6H PRN Administration Mild Pain (1-3) or Fever Albuterol 2 puff 05/18/23 00:15 Albuterol Sulfate (*Sp) Aerosol 1 Puff INHALATION QID PRN Shortness Of Breath Or Wheezing Albuterol/Ipratropium 3 ml 05/22/23 13:25 05/22/23 20:39 Ipratropium 0.5 Mg/Albuterol Sulfate 2.5 Mg Ampul.Neb 3 Ml INHALATION 3 ml Q6HRT PRN Administration Shortness Of Breath Or Wheezing Allopurinol 100 mg 05/18/23 08:00 05/28/23 10:52 Allopurinol 100 Mg Tablet PO 100 mg DAILY@0800 RADHA Administration Amiodarone HCl 200 mg 05/18/23 08:00 05/28/23 10:56 Amiodarone Hcl 200 Mg Tablet BY MOUTH 200 mg DAILY@0800 RADHA Administration Apixaban 2.5 mg 05/18/23 00:30 05/28/23 10:55 Apixaban 2.5 Mg Tablet PO 2.5 mg Q12HR RADHA Administration Atorvastatin Calcium 80 mg 05/18/23 09:00 05/28/23 10:53 Atorvastatin 40 Mg Tablet PO 80 mg QAM RADHA Administration Carbidopa/Levodopa 3 tablet 05/18/23 08:00 05/28/23 10:49 Carbidopa/Levodopa 25/100 Mg Tablet PO 3 tablet TIDWM RADHA Administration Cyanocobalamin 1,000 mcg 05/23/23 09:00 05/28/23 10:54 Cyanocobalamin 1,000 Mcg Tablet PO 1,000 mcg QAM RADHA Administration Dextrose 12.5 gm
--- NOTE | 2023-05-28 13:29 | PM.IMPN ---
Progress Note: A&P Assessment and Plan (1) Anemia: Qualifiers: Anemia type: due to chronic kidney disease Chronic kidney disease stage: stage 4 (severe) Qualified Code(s): N18.4 - Chronic kidney disease, stage 4 (severe); D63.1 - Anemia in chronic kidney disease Code(s): D64.9 - Anemia, unspecified Status: Acute Assessment and Plan: Patient with chronic anemia with Hgb mostly in the 7-8 range. B12 low at 235 so replacement ordered. Iron studies showing Fe 64, TIBC 204, TSat 315 and ferritin 485. Since admission, Hgb was mostly in the 8-9 range but has drifted down to 6.9 yesterday. No schistocytes Could be dilutional from IV fluids. No obvious acute blood loss Transfused 1U PRBC and stable Hgb 8.1 Monitor HH for stability. Transfuse as needed. (2) Somnolence: Code(s): R40.0 - Somnolence Status: Acute Assessment and Plan: Patient was more somnolent 05/24. No focal weakness and not confused. ABG 7.31/45/86 on 2L [place] related to Xanax scheduled (when it should have been prn) and narcotic combination. Somnolence due to poor clearance from NESHA? We stopped both Xanax and narcotics. IV benadryl stopped as well Mental status much better. Continue to hold narcotics. Have patient off loading from her buttock and out of bed. Add back oral bendryl at lower dose (3) NESHA (acute kidney injury): Code(s): N17.9 - Acute kidney failure, unspecified Status: Acute Assessment and Plan: Cr jumped to 2.6 on 05/24. Her home scheduled Bumex was stopped BP stable. No contrast exposure. Suspect related to dehydration and diuretics. Consider also ATN from recent infection. [place] in place UOP 1100mL yesterday and 550mL so far today. [place] 7 with FENa 0.1% and FEUrea 35% to suggest pre-renal so given 1L if IV fluids. Cr better at 2.1 Monitor UOP, electrolytes and renal fxn. If Cr close to baseline, resume Bumex (4) Cellulitis of groin, left: Code(s): L03.314 - Cellulitis of groin Status: Acute Assessment and Plan: Labial swelling and and pain. Pelvic CT pelvis suggestive of cellulitis She was started on Ancef and Flagyl added. Diflucan added and completed a 7 day course flight readiness technician evaluated patient and was concerned for deeper abscess so General surgery consulted. Patient taken to OR 05/22 and had complex I&D of left perineal abscess. Wound Culture growing streptococcus anginosus and proventella Abx changed to Ertapenem; was on Flagyl IV but stopped 05/23 per PharmD ID recommendation. WBC normal. Appreciate GenSurg input. Follow closely (5) Acute hyperkalemia: Code(s): E87.5 - Hyperkalemia Status: Acute Assessment and Plan: Potassium 5.2 on admission. Potassium has been normal over the past few days but increased again TSH and cortisol okay. Potassium 5.4 on 05/24. [place] related to NESHA. Bumex stopped. Not on MANISH/ARB Lokelma once with benefit. Potassium normal today Continue monitor. (6) Type 2 diabetes mellitus: Qualifiers: Diabetes mellitus detention insulin use: with detention use Diabetes mellitus complication status: without complication Qualified Code(s): E11.9 - Type 2 diabetes mellitus without complications; Z79.4 - correction (current) use of insulin Code(s): E11.9 - Type 2 diabetes mellitus without complications Status: Acute Assessment and Plan: Patient presents with glucose of 340. A1c 12. Hyperglycemia related to uncontrolled diabetes. The patient's blood glucose was reviewed on 05/27 Glucose better at 105 this morning. Continue AccuCheks covering with sliding scale. Hypoglycemia protocol available as needed. Continue to monitor. Continue lower dose Lantus; meal time Novolog stopped (7) Generalized weakness: Code(s): R53.1 - Weakness Status: Acute Assessment and Plan: Probably related to infection and uncontrolled diabetes B12 low so replacement ordered.
[2023-05-28] MEDS: diphenhydrAMINE HCl CAP 25 MG CAPSULE PO ×2 (15:26→21:49)
[2023-05-28 16:58] LABS: Glucose Point of Care 139 mg/dl (65-105)
[2023-05-28] MEDS: ERTAPENEM 1 GM/NS 50 ML 1 GM/50 ML BAG IVPB (17:37)
[2023-05-28] MEDS: ACETAMINOPHEN 500 MG TABLET 1000 MG PO (18:13)
[2023-05-28] MEDS: rOPINIRole HCL 0.5 MG TABLET PO (21:00)
[2023-05-28] MEDS: QUEtiapine FUMARATE 25 MG TABLET PO (21:01)
[2023-05-28] MEDS: PRAZOSIN HCL 5 MG CAPSULE PO (21:01)
[2023-05-28 22:00] LABS: Glucose Point of Care 140 mg/dl (65-105)
[2023-05-29] VITALS (8 sets, daily range): BP systolic 115–151; BP diastolic 65–79; PULSE 85–92; RESP 17–20; TEMP 36.4–36.9; O2SAT 94–100
[2023-05-29] MEDS: diphenhydrAMINE HCl CAP 25 MG CAPSULE PO ×2 (03:53→09:56)
[2023-05-29 05:37] LABS: Hematocrit 27.4 % (37.0-47.0); Hemoglobin 8.1 g/dL (12.0-15.0); Mean Corpuscular HGB Conc 29.6 g/dl (32-36); Mean Corpuscular Hemoglobin 30.5 pg (26-34); Mean Platelet Volume 10.6 fl (7.4-10.4); Platelet Count Result 316 k/mm3 (150-375); Red Blood Count 2.66 M/mm3 (4.2-5.4); Red Cell Distribution Width 14.6 % (11.5-14.5); White Blood Count 7.5 K/mm3 (4.5-10.0)
[2023-05-29 05:54] LABS: Albumin Level 3.3 g/dL (3.5-5.1); Anion Gap 7 mmol/L (4-12); Blood Urea Nitrogen 34 mg/dL (7-17); Calcium 8.9 mg/dL (8.4-10.2); Carbon Dioxide 23 mmol/L (22-30); Chloride 101 mmol/L (98-107); Estimated CRCL calculation 36 ml/min; Estimated Glomerular Filt Rate 28; Glucose 121 mg/dL (65-110); Magnesium 2.5 mg/dL (1.6-2.3); Phosphorus 4.2 mg/dL (2.5-4.5); Potassium 4.5 mmol/L (3.4-5.0); Sodium 131 mmol/L (137-145)
[2023-05-29] MEDS: FLUTICASONE/SALMETEROL 115-21 MCG INHALER 1 PUFF 2 PUFF INHALATION ×2 (07:33→20:15)
[2023-05-29] MEDS: AMIODARONE HCL 200 MG TABLET BY MOUTH (08:04)
[2023-05-29] MEDS: DOXEPIN HCL 25 MG CAPSULE PO ×2 (08:05→20:39)
[2023-05-29] MEDS: ATORVASTATIN 40 MG TABLET 80 MG PO (08:05)
[2023-05-29] MEDS: GABAPENTIN 100 MG CAPSULE PO ×3 (08:05→17:06)
[2023-05-29] MEDS: APIXABAN 2.5 MG TABLET PO ×2 (08:05→20:39)
[2023-05-29] MEDS: FLUoxetine HCL 20 MG CAPSULE 40 MG PO ×2 (08:05→20:39)
[2023-05-29] MEDS: CARBIDOPA/LEVODOPA 25/100 MG TABLET 3 TABLET PO ×3 (08:05→17:05)
[2023-05-29] MEDS: PANTOPRAZOLE 40 MG TABLET PO (08:05)
[2023-05-29] MEDS: PRIMIDONE 50 MG TABLET PO ×2 (08:05→17:06)
[2023-05-29] MEDS: CYANOCOBALAMIN 1,000 MCG TABLET 1000 MCG PO (08:05)
[2023-05-29] MEDS: OXcarbazepine 300 MG TABLET PO ×2 (08:05→20:39)
[2023-05-29] MEDS: allopurinoL 100 MG TABLET PO (08:05)
[2023-05-29 08:06] LABS: Glucose Point of Care 104 mg/dl (65-105)
[2023-05-29] MEDS: INSULIN GLARGINE (*BKC) 100 UNITS/ML 18 UNITS SUB-Q (08:08)
[2023-05-29] MEDS: ACETAMINOPHEN 500 MG TABLET 1000 MG PO (09:58)
[2023-05-29 12:01] LABS: Glucose Point of Care 125 mg/dl (65-105)
[2023-05-29] MEDS: ONDANSETRON INJ 4 MG/2 ML VIAL IV PUSH ×2 (13:04→18:35)
--- NOTE | 2023-05-29 13:55 | PM.IMPN ---
Progress Note: A&P Assessment and Plan (1) Anemia: Qualifiers: Anemia type: due to chronic kidney disease Chronic kidney disease stage: stage 4 (severe) Qualified Code(s): N18.4 - Chronic kidney disease, stage 4 (severe); D63.1 - Anemia in chronic kidney disease Code(s): D64.9 - Anemia, unspecified Status: Acute Assessment and Plan: Patient with chronic anemia with Hgb mostly in the 7-8 range. B12 low at 235 so replacement ordered. Iron studies showing Fe 64, TIBC 204, TSat 315 and ferritin 485. Sp blood transfusion one unit, HB is 8. (2) Somnolence: Code(s): R40.0 - Somnolence Status: Acute Assessment and Plan: Patient was more somnolent 05/24. No focal weakness and not confused. Mental status much better. Continue to hold narcotics. Maybe related to Benadryl and anxiolytics Pt advised to ambulate more with PT may need a acute rehab placement (3) NESHA (acute kidney injury): Code(s): N17.9 - Acute kidney failure, unspecified Status: Acute Assessment and Plan: Cr jumped to 2.6 on 05/24. Her home scheduled Bumex was stopped BP stable. No contrast exposure. Suspect related to dehydration and diuretics. Consider also ATN from recent infection. De La Cruz in place UOP 1100mL yesterday and 550mL so far today. Richard 7 with FENa 0.1% and FEUrea 35% to suggest pre-renal so given 1L if IV fluids. Cr better at 2.1 Creat is 1.8 today baseline is 1.4 Can restart bumex and watch creat levels (4) Cellulitis of groin, left: Code(s): L03.314 - Cellulitis of groin Status: Acute Assessment and Plan: Labial swelling and and pain. Pelvic CT pelvis suggestive of cellulitis She was started on Ancef and Flagyl added. Diflucan added and completed a 7 day course wrapper counter evaluated patient and was concerned for deeper abscess so General surgery consulted. Patient taken to OR 05/22 and had complex I&D of left perineal abscess. Wound Culture growing streptococcus anginosus and proventella Abx changed to Ertapenem; was on Flagyl IV but stopped 05/23 per PharmD ID recommendation. WBC normal. Appreciate GenSurg input. Follow closely (5) Acute hyperkalemia: Code(s): E87.5 - Hyperkalemia Status: Acute Assessment and Plan: Potassium 5.2 on admission. Potassium has been normal over the past few days but increased again TSH and cortisol okay. Potassium 5.4 on 05/24. [place] related to NESHA. Bumex stopped. Not on MANISH/ARB Lokelma once with benefit. Potassium normal today Continue monitor. Potassium is nl today (6) Type 2 diabetes mellitus: Qualifiers: Diabetes mellitus rodent exterminator insulin use: with rodent exterminator use Diabetes mellitus complication status: without complication Qualified Code(s): E11.9 - Type 2 diabetes mellitus without complications; Z79.4 - intermediate school teacher (current) use of insulin Code(s): E11.9 - Type 2 diabetes mellitus without complications Status: Acute Assessment and Plan: Patient presents with glucose of 340. A1c 12. Hyperglycemia related to uncontrolled diabetes. The patient's blood glucose was reviewed on 05/27 Glucose better at 105 this morning. Glucose is 121 today Continue AccuCheks covering with sliding scale. Hypoglycemia protocol available as needed. Continue to monitor. Continue lower dose Lantus; meal time Novolog stopped (7) Generalized weakness: Code(s): R53.1 - Weakness Status: Acute Assessment and Plan: Probably related to infection and uncontrolled diabetes B12 low so replacement ordered. Continue PT and OT (8) Acute hyponatremia: Code(s): E87.1 - Hypo-osmolality and hyponatremia Status: Acute Assessment and Plan: Sodium was low on admission probably related hyperglycemia. On chart review does appear that she does have mild hyponatremia chronically. Urine studies more pre-renal but she is on Bumex which could skew these
--- NOTE | 2023-05-29 15:06 | PCPTNOTE ---
Attempted to see patient for PT, however patient was working with OT.
[2023-05-29 17:06] LABS: Glucose Point of Care 134 mg/dl (65-105)
[2023-05-29] MEDS: ERTAPENEM 1 GM/NS 50 ML 1 GM/50 ML BAG IVPB (17:06)
[2023-05-29] MEDS: DOCUSATE SODIUM 100 MG CAPSULE PO (18:40)
[2023-05-29] MEDS: PRAZOSIN HCL 5 MG CAPSULE PO (20:39)
[2023-05-29] MEDS: QUEtiapine FUMARATE 25 MG TABLET PO (20:39)
[2023-05-29] MEDS: rOPINIRole HCL 0.5 MG TABLET PO (20:39)
[2023-05-29 20:43] LABS: Glucose Point of Care 124 mg/dl (65-105)
[2023-05-30] VITALS (9 sets, daily range): BP systolic 121–135; BP diastolic 58–65; PULSE 84–92; RESP 18–20; TEMP 36.2–37; O2SAT 91–100
[2023-05-30] MEDS: diphenhydrAMINE HCl CAP 25 MG CAPSULE PO ×2 (05:48→20:30)
[2023-05-30 06:29] LABS: Anion Gap 5 mmol/L (4-12); Blood Urea Nitrogen 32 mg/dL (7-17); Calcium 9.3 mg/dL (8.4-10.2); Carbon Dioxide 25 mmol/L (22-30); Chloride 102 mmol/L (98-107); Estimated CRCL calculation 38 ml/min; Estimated Glomerular Filt Rate 29; Glucose 94 mg/dL (65-110); Potassium 4.6 mmol/L (3.4-5.0); Sodium 132 mmol/L (137-145)
[2023-05-30] MEDS: FLUTICASONE/SALMETEROL 115-21 MCG INHALER 1 PUFF 2 PUFF INHALATION ×2 (07:52→20:02)
[2023-05-30 08:13] LABS: Glucose Point of Care 96 mg/dl (65-105)
[2023-05-30] MEDS: allopurinoL 100 MG TABLET PO (08:40)
[2023-05-30] MEDS: CYANOCOBALAMIN 1,000 MCG TABLET 1000 MCG PO (08:40)
[2023-05-30] MEDS: PANTOPRAZOLE 40 MG TABLET PO (08:41)
[2023-05-30] MEDS: OXcarbazepine 300 MG TABLET PO ×2 (08:41→20:30)
[2023-05-30] MEDS: ATORVASTATIN 40 MG TABLET 80 MG PO (08:41)
[2023-05-30] MEDS: PRIMIDONE 50 MG TABLET PO ×2 (08:41→17:15)
[2023-05-30] MEDS: ACETAMINOPHEN 500 MG TABLET 1000 MG PO ×2 (08:41→17:18)
[2023-05-30] MEDS: DOXEPIN HCL 25 MG CAPSULE PO ×2 (08:41→20:30)
[2023-05-30] MEDS: AMIODARONE HCL 200 MG TABLET BY MOUTH (08:41)
[2023-05-30] MEDS: BUMETANIDE 1 MG TABLET 2 MG PO (08:41)
[2023-05-30] MEDS: APIXABAN 2.5 MG TABLET PO ×2 (08:41→20:30)
[2023-05-30] MEDS: CARBIDOPA/LEVODOPA 25/100 MG TABLET 3 TABLET PO ×3 (08:41→17:15)
[2023-05-30] MEDS: FLUoxetine HCL 20 MG CAPSULE 40 MG PO ×2 (08:42→20:30)
[2023-05-30] MEDS: GABAPENTIN 100 MG CAPSULE PO ×3 (08:42→17:15)
[2023-05-30] MEDS: DOCUSATE SODIUM 100 MG CAPSULE PO ×2 (08:42→17:15)
[2023-05-30] MEDS: INSULIN GLARGINE (*BKC) 100 UNITS/ML 18 UNITS SUB-Q (08:54)
--- NOTE | 2023-05-30 11:02 | PC.NURSE ---
On 05/30/23, the student, [Kanwal Santos], provided care and completed [facility] documentation on this patient. I have reviewed the student's documentation and agree with the findings.
[2023-05-30 11:54] LABS: Glucose Point of Care 140 mg/dl (65-105)
[2023-05-30] MEDS: ONDANSETRON INJ 4 MG/2 ML VIAL IV PUSH ×2 (12:04→18:46)
--- NOTE | 2023-05-30 12:07 | PM.IMPN ---
Progress Note: A&P Assessment and Plan (1) Anemia: Qualifiers: Anemia type: due to chronic kidney disease Chronic kidney disease stage: stage 4 (severe) Qualified Code(s): N18.4 - Chronic kidney disease, stage 4 (severe); D63.1 - Anemia in chronic kidney disease Code(s): D64.9 - Anemia, unspecified Status: Acute Assessment and Plan: Patient with chronic anemia with Hgb mostly in the 7-8 range. B12 low at 235 so replacement ordered. Iron studies showing Fe 64, TIBC 204, TSat 315 and ferritin 485. Sp blood transfusion one unit, HB is 8. (2) Somnolence: Code(s): R40.0 - Somnolence Status: Acute Assessment and Plan: Patient was more somnolent 05/24. No focal weakness and not confused. Mental status much better. Continue to hold narcotics. Maybe related to Benadryl and anxiolytics Pt advised to ambulate more with PT may need a acute rehab placement (3) NESHA (acute kidney injury): Code(s): N17.9 - Acute kidney failure, unspecified Status: Acute Assessment and Plan: Cr jumped to 2.6 on 05/24. Her home scheduled Bumex was stopped BP stable. No contrast exposure. Suspect related to dehydration and diuretics. Consider also ATN from recent infection. De La Cruz in place UOP 1100mL yesterday and 550mL so far today. Richard 7 with FENa 0.1% and FEUrea 35% to suggest pre-renal so given 1L if IV fluids. Cr better at 2.1 Creat is 1.8 today baseline is 1.7today Pt is on bumex and watch creat levels (4) Cellulitis of groin, left: Code(s): L03.314 - Cellulitis of groin Status: Acute Assessment and Plan: Labial swelling and and pain. Pelvic CT pelvis suggestive of cellulitis She was started on Ancef and Flagyl added. Diflucan added and completed a 7 day course veterinary surgery technician evaluated patient and was concerned for deeper abscess so General surgery consulted. Patient taken to OR 05/22 and had complex I&D of left perineal abscess. Wound Culture growing streptococcus anginosus and proventella Abx changed to Ertapenem; was on Flagyl IV but stopped 05/23 per PharmD ID recommendation. WBC normal. Appreciate GenSurg input. Follow closely (5) Acute hyperkalemia: Code(s): E87.5 - Hyperkalemia Status: Acute Assessment and Plan: Potassium 5.2 on admission. Potassium has been normal over the past few days but increased again TSH and cortisol okay. Potassium 5.4 on 05/24. [place] related to NESHA. Bumex stopped. Not on MANISH/ARB Lokelma once with benefit. Potassium normal today Continue monitor. 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 A1c 12. Hyperglycemia related to uncontrolled diabetes. The patient's blood glucose was reviewed on 05/27 Glucose better at 105 this morning. Glucose is 121 today Continue AccuCheks covering with sliding scale. Hypoglycemia protocol available as needed. Continue to monitor. Continue lower dose Lantus; meal time Novolog stopped (7) Generalized weakness: Code(s): R53.1 - Weakness Status: Acute Assessment and Plan: Probably related to infection and uncontrolled diabetes B12 low so replacement ordered. Continue PT and OT Pt benefits from AR (8) Acute hyponatremia: Code(s): E87.1 - Hypo-osmolality and hyponatremia Status: Acute Assessment and Plan: Sodium was low on admission probably related hyperglycemia. On chart review does appear that she does have mild hyponatremia chronically. Urine studies more pre-renal but she is on Bume
--- NOTE | 2023-05-30 14:09 | PM.PNGS ---
Progress Note: A&P Assessment and Plan (1) Abscess of groin, left: Code(s): L02.214 - Cutaneous abscess of groin Status: Acute Assessment and Plan: Postop day 7 complex I&D of left perineal abscess. Abscess is adequately drained. Induration and swelling continues to improve. WBC normalized. Stable from a surgical standpoint to discharge when she is medically stable. Continue dry cover dressing changes with gauze and ABD pads. Will switch to oral antibiotics, discussed with ID pharmacist who recommends Augmentin 875-125mg BID. Cx show growth of prevotella species and strep anginosus. Continue to monitor the drains for now, but will plan to remove them prior to discharge. Plan I have discussed the patient's case and plan of care with Dr. Veronica. Subjective Subjective Date/Time Seen: 05/30/23 14:09 Post Op day: 7 (Complex incision and drainage of left perineal abscess) Patient reports: afebrile Interval history: She denies any groin pain. She does report some soreness on her bottom from lying in bed, but otherwise no other complaints. Exam Const: General: comfortable and no acute distress Skin: Other: Left perineal wound with [address] through counter incisions near the pubis, surrounding erythema and induration improved, no purulent drainage noted, minimal serosanguineous drainage on the gauze dressing that was removed. Objective Data Vital Signs Vital Signs: Vital Signs - 24 hr 05/29/23 19:34 05/29/23 20:18 05/29/23 20:00 Temperature 98.4 F Pulse Rate 85 Respiratory Rate 18 Blood Pressure 129/70 Pulse Oximetry 100 97 96 Oxygen Delivery Nasal Cannula Oxygen Flow Rate 2 2 Fraction of Inspired Oxygen 05/30/23 05:41 05/30/23 07:53 05/30/23 07:53 Temperature 97.5 F L Pulse Rate 88 90 Respiratory Rate 18 20 Blood Pressure 125/65 Pulse Oximetry 98 94 Oxygen Delivery Nasal Cannula Oxygen Flow Rate 2 Fraction of Inspired Oxygen 05/30/23 08:41 05/30/23 08:45 05/30/23 08:15 Temperature Pulse Rate 90 Respiratory Rate Blood Pressure Pulse Oximetry 95 95 Oxygen Delivery Nasal Cannula Nasal Cannula Oxygen Flow Rate 2 2 Fraction of Inspired Oxygen 28 Intake/Output Intake/Output: Intake & Output 04/05/28/23 05/29/23 05/30/23 23:59 23:59 23:59 23:59 Intake Total 580 1550 290 600 Output Total 1100 1250 1290 1200 Balance -520 300 -1000 -600 Meds/Results Medications: Active Medications Generic Name Dose Route Start Last Admin Trade Name Freq PRN Reason Stop Dose Admin Acetaminophen 1,000 mg 05/23/23 17:34 05/30/23 08:41 Acetaminophen 500 Mg Tablet PO 1,000 mg Q6H PRN Administration Mild Pain (1-3) or Fever Albuterol 2 puff 05/18/23 00:15 Albuterol Sulfate (*Sp) Aerosol 1 Puff INHALATION QID PRN Shortness Of Breath Or Wheezing Albuterol/Ipratropium 3 ml 05/22/23 13:25 05/22/23 20:39 Ipratropium 0.5 Mg/Albuterol Sulfate 2.5 Mg Ampul.Neb 3 Ml INHALATION 3 ml Q6HRT PRN Administration Shortness Of Breath Or Wheezing Allopurinol 100 mg 05/18/23 08:00 05/30/23 08:40 Allopurinol 100 Mg Tablet PO 100 mg DAILY@0800 RADHA Administration Amiodarone HCl 200 mg 05/18/23 08:00 05/30/23 08:41 Amiodarone Hcl 200 Mg Tablet BY MOUTH 200 mg DAILY@0800 RADHA Administration Amoxicillin/Clavulanate Potassium 1 tablet 05/30/23 21:00 Amoxicillin/Clavulanate K 875-125 Mg Tab PO Q12HR RADHA Apixaban 2.5 mg 05/18/23 00:30 05/30/23 08:41 Apixaban 2.5 Mg Tablet PO 2.5 mg Q12HR RADHA Administration Atorvastatin Calcium 80 mg 05/18/23 09:00 05/30/23 08:41 Atorvastatin 40 Mg Tablet PO 80 mg QAM RADHA Administration Bumetanide 2 mg 05/30/23 09:00 05/30/23 08:41 Bumetanide 1 Mg Tablet PO 2 mg DAILY RADHA Administration Carbidopa/Levodopa 3 tablet 05/18/23 08:00 05/30/23 12:04 Carbidopa/Levodopa 25/100 Mg Tablet PO 3 tablet TIDWM S
--- NOTE | 2023-05-30 14:41 | PC.NURSE ---
On 05/30/23, the student, [Rocco Chairez], provided care and completed [facility] documentation on this patient. I have reviewed the student's documentation and agree with the findings.
[2023-05-30 17:11] LABS: Glucose Point of Care 100 mg/dl (65-105)
[2023-05-30 20:04] LABS: Glucose Point of Care 139 mg/dl (65-105)
[2023-05-30] MEDS: AMOXICILLIN/CLAVULANATE K 875-125 MG TAB 1 TABLET PO (20:30)
[2023-05-30] MEDS: PRAZOSIN HCL 5 MG CAPSULE PO (20:30)
[2023-05-30] MEDS: QUEtiapine FUMARATE 25 MG TABLET PO (20:30)
[2023-05-30] MEDS: rOPINIRole HCL 0.5 MG TABLET PO (20:30)
[2023-05-31] VITALS (7 sets, daily range): BP systolic 127–135; BP diastolic 68–77; PULSE 69–92; RESP 18–20; TEMP 36.4; O2SAT 97–100
[2023-05-31] MEDS: diphenhydrAMINE HCl CAP 25 MG CAPSULE PO ×2 (04:48→22:48)
[2023-05-31 06:52] LABS: Hematocrit 28.5 % (37.0-47.0); Hemoglobin 8.4 g/dL (12.0-15.0); Mean Corpuscular HGB Conc 29.5 g/dl (32-36); Mean Corpuscular Hemoglobin 30.2 pg (26-34); Mean Corpuscular Volume 102.5 fl (80-100); Platelet Count Result 323 k/mm3 (150-375); Red Blood Count 2.78 M/mm3 (4.2-5.4); Red Cell Distribution Width 14.6 % (11.5-14.5); White Blood Count 7.7 K/mm3 (4.5-10.0)
[2023-05-31 07:01] LABS: Anion Gap 6 mmol/L (4-12); Blood Urea Nitrogen 33 mg/dL (7-17); Calcium 9.4 mg/dL (8.4-10.2); Carbon Dioxide 26 mmol/L (22-30); Chloride 103 mmol/L (98-107); Estimated CRCL calculation 38 ml/min; Estimated Glomerular Filt Rate 29; Glucose 103 mg/dL (65-110); Potassium 4.8 mmol/L (3.4-5.0); Sodium 135 mmol/L (137-145)
[2023-05-31] MEDS: FLUTICASONE/SALMETEROL 115-21 MCG INHALER 1 PUFF 2 PUFF INHALATION ×2 (07:48→20:00)
[2023-05-31 08:04] LABS: Glucose Point of Care 102 mg/dl (65-105)
[2023-05-31] MEDS: AMOXICILLIN/CLAVULANATE K 875-125 MG TAB 1 TABLET PO ×2 (08:29→22:43)
[2023-05-31] MEDS: PRIMIDONE 50 MG TABLET PO ×2 (08:29→17:35)
[2023-05-31] MEDS: OXcarbazepine 300 MG TABLET PO ×2 (08:29→22:43)
[2023-05-31] MEDS: GABAPENTIN 100 MG CAPSULE PO ×3 (08:29→17:35)
[2023-05-31] MEDS: CARBIDOPA/LEVODOPA 25/100 MG TABLET 3 TABLET PO ×3 (08:29→17:35)
[2023-05-31] MEDS: BUMETANIDE 1 MG TABLET 2 MG PO (08:29)
[2023-05-31] MEDS: APIXABAN 2.5 MG TABLET PO ×2 (08:29→22:44)
[2023-05-31] MEDS: PANTOPRAZOLE 40 MG TABLET PO (08:30)
[2023-05-31] MEDS: AMIODARONE HCL 200 MG TABLET BY MOUTH (08:30)
[2023-05-31] MEDS: FLUoxetine HCL 20 MG CAPSULE 40 MG PO ×2 (08:30→22:44)
[2023-05-31] MEDS: DOCUSATE SODIUM 100 MG CAPSULE PO ×2 (08:30→17:35)
[2023-05-31] MEDS: ATORVASTATIN 40 MG TABLET 80 MG PO (08:30)
[2023-05-31] MEDS: DOXEPIN HCL 25 MG CAPSULE PO ×2 (08:30→22:43)
[2023-05-31] MEDS: CYANOCOBALAMIN 1,000 MCG TABLET 1000 MCG PO (08:30)
[2023-05-31] MEDS: ACETAMINOPHEN 500 MG TABLET 1000 MG PO ×2 (08:30→22:48)
[2023-05-31] MEDS: allopurinoL 100 MG TABLET PO (08:31)
[2023-05-31] MEDS: INSULIN GLARGINE (*BKC) 100 UNITS/ML 18 UNITS SUB-Q (08:33)
[2023-05-31] MEDS: ONDANSETRON INJ 4 MG/2 ML VIAL IV PUSH (09:59)
--- NOTE | 2023-05-31 11:57 | PM.IMPN ---
Progress Note: A&P Assessment and Plan (1) Anemia: Qualifiers: Anemia type: due to chronic kidney disease Chronic kidney disease stage: stage 4 (severe) Qualified Code(s): N18.4 - Chronic kidney disease, stage 4 (severe); D63.1 - Anemia in chronic kidney disease Code(s): D64.9 - Anemia, unspecified Status: Acute Assessment and Plan: Patient with chronic anemia with Hgb mostly in the 7-8 range. B12 low at 235 so replacement ordered. Iron studies showing Fe 64, TIBC 204, TSat 315 and ferritin 485. Sp blood transfusion one unit, HB is 8. (2) Somnolence: Code(s): R40.0 - Somnolence Status: Acute Assessment and Plan: Patient was more somnolent 05/24. No focal weakness and not confused. Mental status much better. Continue to hold narcotics. Maybe related to Benadryl and anxiolytics Pt advised to ambulate more with PT may need a acute rehab placement (3) NESHA (acute kidney injury): Code(s): N17.9 - Acute kidney failure, unspecified Status: Acute Assessment and Plan: Cr jumped to 2.6 on 05/24. Her home scheduled Bumex was stopped BP stable. No contrast exposure. Suspect related to dehydration and diuretics. Consider also ATN from recent infection. De La Cruz in place UOP 1100mL yesterday and 550mL so far today. Richard 7 with FENa 0.1% and FEUrea 35% to suggest pre-renal so given 1L if IV fluids. Cr better at 2.1 Creat is 1.8 today baseline is 1.7today Pt is on bumex and watch creat levels (4) Cellulitis of groin, left: Code(s): L03.314 - Cellulitis of groin Status: Acute Assessment and Plan: Labial swelling and and pain. Pelvic CT pelvis suggestive of cellulitis She was started on Ancef and Flagyl added. Diflucan added and completed a 7 day course bog worker evaluated patient and was concerned for deeper abscess so General surgery consulted. Patient taken to OR 05/22 and had complex I&D of left perineal abscess. Wound Culture growing streptococcus anginosus and proventella Abx changed to Ertapenem; was on Flagyl IV but stopped 05/23 per PharmD ID recommendation. WBC normal. Appreciate GenSurg input. Follow closely Pt now on oral ABX PT will need drains removed prior to DC (5) Acute hyperkalemia: Code(s): E87.5 - Hyperkalemia Status: Acute Assessment and Plan: Resolved Potassium is nl today (6) Type 2 diabetes mellitus: Qualifiers: Diabetes mellitus technician terminal and repeater insulin use: with technician terminal and repeater use Diabetes mellitus complication status: without complication Qualified Code(s): E11.9 - Type 2 diabetes mellitus without complications; Z79.4 - senior living (current) use of insulin Code(s): E11.9 - Type 2 diabetes mellitus without complications Status: Acute Assessment and Plan: Patient presents with glucose of 340. A1c 12. Hyperglycemia related to uncontrolled diabetes. Sugars are more stable now in hospital Continue to monitor. Continue lower dose Lantus; meal time Novolog stopped (7) Generalized weakness: Code(s): R53.1 - Weakness Status: Acute Assessment and Plan: Probably related to infection and uncontrolled diabetes B12 low so replacement ordered. Continue PT and OT Pt benefits from AR CT head ordered as pt mentions L leg is weaker than R Neurology also consulted (8) Acute hyponatremia: Code(s): E87.1 - Hypo-osmolality and hyponatremia Status: Acute Assessment and Plan: resolved Sodium is stable now (9) Parkinson disease: Code(s): G20 - Parkinson's disease Status: Acute Assessment and Plan: Stable Continue Sinemet Continue PT/OT Neurology consulted (10) Chronic kidney disease, stage 3: Qualifiers: Chronic kidney disease stage 3 subtype: stage 3a (GFR 45-59) Qualified Code(s): N18.31 - Chronic kidney disease, stage 3a Code(s): N18.30 - Chronic kidney diseas
[2023-05-31 12:14] LABS: Glucose Point of Care 141 mg/dl (65-105)
[2023-05-31] MEDS: ALPRAZolam (*CRX) 0.25 MG TABLET PO (14:16)
--- NOTE | 2023-05-31 14:51 | WPDNEURCNPN ---
Assessment and Plan Assessment and plan (1) Parkinson disease: Code(s): G20 - Parkinson's disease Status: Acute (2) Hypertension: Qualifiers: Hypertension type: primary hypertension Qualified Code(s): I10 - Essential (primary) hypertension Code(s): I10 - Essential (primary) hypertension Status: Chronic (3) Atrial fibrillation: Code(s): I48.91 - Unspecified atrial fibrillation Status: Acute (4) Abscess of groin, left: Code(s): L02.214 - Cutaneous abscess of groin Status: Acute (5) NESHA (acute kidney injury): Code(s): N17.9 - Acute kidney failure, unspecified Status: Acute (6) Diabetic polyneuropathy: Code(s): E11.42 - Type 2 diabetes mellitus with diabetic polyneuropathy Status: Acute (7) Weakness of left lower extremity: Code(s): R29.898 - Other symptoms and signs involving the musculoskeletal system Status: Acute Assessment and Plan: I do not find any significant weakness the left lower limb compared to the right side however she may have this abnormal feeling due to the abscess in the left groin area and require some follow-up. Plan I would suggest MRI of the brain and a carotid Doppler study and lipid profile while we treat her for the left groin abscess and see how she goes. With regard to Parkinson disease he should continue the current medications. This of course the long-term problem and is being addressed by another neurologist in [place]. I do not see a need to change the dose of Sinemet for now. Based upon her progress from the point of view of abscess physical therapy can gradually try to ambulate her. Consult date: 05/31/23 Time Seen: 14:53 HPI: Jenni Rondon is a 72 year old female with history of Parkinson's disease diet is well over 10 years ago by 1 of the local neurologist and subsequently being taking care of at [facility] by a neurologist. She has significant tremor and difficulty in walking and doing things with her hand. She has 2 children were mentally handicapped. Patient lives with her and 2 of them under her care. The patient has been found to have abscess in the left groin or pelvic area which has now been drained. No Sinemet 25/103 tablets 3 times a day and subsequently repaired was added since with the having some restlessness of the legs. She also has discomfort in her feet and cough frequently. Mysoline was added since the tremor where significant problem. She has tremor seemed to involve her upper and lower limbs more on the left hand and right leg but nearly all over. See also history of diabetes mellitus for very long time and has been diagnosed to have chronic obstructive pulmonary disease and congestive cardiac failure. Now she has been found to renal insufficiency. All these issues are being managed previous he feels little weak in the left leg which she thinks is going on for a few days. She does not recall having a sudden onset of the symptom. In the past she had 1 episode where she was weak on the right side and was thought to have transient ischemic attack however she was seen by a neurologist who did not agree with the diagnosis. She denies any pain in the left lower limb brother she feels weak and has difficulty in walking. She states that she wants to get out despite her weight problems but she has difficulty on account of various issues. Review of Systems Review of Systems: All systems reviewed & are unremarkable except as noted in HPI and below Constitutional: Constitutional: Reports no additional constitutional complaints Eyes: Eyes: Reports no additional eye complaints ENT: Reports system reviewed and no additional complaints, except as documented Cardiovascular: Cardiovascular: Reports no additional cardiovascular complaints Respiratory: Respiratory: Reports no additional respiratory complaints Gastrointestinal: Gastrointestinal: Reports no addit
[2023-05-31 15:55] LABS: Cholesterol 110 mg/dL (0-200); HDL Direct 38 mg/dL; Triglycerides 107 mg/dL (<150)
[2023-05-31 16:11] LABS: LDL Cholesterol Direct 57 mg/dL
[2023-05-31 16:16] LABS: T4 Thyroxine 6.02 ug/dL (5.53-11.0)
[2023-05-31 17:05] LABS: Glucose Point of Care 141 mg/dl (65-105)
[2023-05-31 17:07] LABS: Folic Acid 12.2 ng/mL (2.76->20); Vitamin B12 > 1000.0 pg/mL (239-931)
[2023-05-31 18:37] LABS: Vitamin D 25 Hydroxy < 12.8 ng/mL
[2023-05-31 20:55] LABS: Glucose Point of Care 95 mg/dl (65-105)
[2023-05-31] MEDS: rOPINIRole HCL 0.5 MG TABLET PO (22:43)
[2023-05-31] MEDS: QUEtiapine FUMARATE 25 MG TABLET PO (22:43)
[2023-05-31] MEDS: PRAZOSIN HCL 5 MG CAPSULE PO (22:44)
[2023-06-01] VITALS (9 sets, daily range): BP systolic 131–137; BP diastolic 60–76; PULSE 77–96; RESP 16–18; TEMP 36.5–37.1; O2SAT 86–100
[2023-06-01 06:22] LABS: Anion Gap 6 mmol/L (4-12); Blood Urea Nitrogen 32 mg/dL (7-17); Calcium 9.2 mg/dL (8.4-10.2); Carbon Dioxide 24 mmol/L (22-30); Chloride 103 mmol/L (98-107); Estimated CRCL calculation 40 ml/min; Estimated Glomerular Filt Rate 32; Glucose 93 mg/dL (65-110); Potassium 4.7 mmol/L (3.4-5.0); Sodium 133 mmol/L (137-145)
[2023-06-01] MEDS: FLUTICASONE/SALMETEROL 115-21 MCG INHALER 1 PUFF 2 PUFF INHALATION ×2 (07:25→20:11)
[2023-06-01 08:04] LABS: Glucose Point of Care 90 mg/dl (65-105)
[2023-06-01] MEDS: PANTOPRAZOLE 40 MG TABLET PO (09:49)
[2023-06-01] MEDS: CYANOCOBALAMIN 1,000 MCG TABLET 1000 MCG PO (09:49)
[2023-06-01] MEDS: OXcarbazepine 300 MG TABLET PO ×2 (09:49→21:03)
[2023-06-01] MEDS: DOCUSATE SODIUM 100 MG CAPSULE PO ×2 (09:49→17:16)
[2023-06-01] MEDS: PRIMIDONE 50 MG TABLET PO ×2 (09:49→17:16)
[2023-06-01] MEDS: DOXEPIN HCL 25 MG CAPSULE PO ×2 (09:49→21:04)
[2023-06-01] MEDS: ATORVASTATIN 40 MG TABLET 80 MG PO (09:49)
[2023-06-01] MEDS: allopurinoL 100 MG TABLET PO (09:49)
[2023-06-01] MEDS: AMIODARONE HCL 200 MG TABLET BY MOUTH (09:49)
[2023-06-01] MEDS: CARBIDOPA/LEVODOPA 25/100 MG TABLET 3 TABLET PO ×3 (09:49→17:16)
[2023-06-01] MEDS: diphenhydrAMINE HCl CAP 25 MG CAPSULE PO (09:50)
[2023-06-01] MEDS: AMOXICILLIN/CLAVULANATE K 875-125 MG TAB 1 TABLET PO ×2 (09:50→21:03)
[2023-06-01] MEDS: BUMETANIDE 1 MG TABLET 2 MG PO (09:50)
[2023-06-01] MEDS: GABAPENTIN 100 MG CAPSULE PO ×3 (09:50→17:16)
[2023-06-01] MEDS: APIXABAN 2.5 MG TABLET PO ×2 (09:51→21:04)
[2023-06-01] MEDS: FLUoxetine HCL 20 MG CAPSULE 40 MG PO ×2 (09:54→21:04)
[2023-06-01] MEDS: INSULIN GLARGINE (*BKC) 100 UNITS/ML 18 UNITS SUB-Q (09:55)
[2023-06-01] MEDS: polyethylene glycoL 3350 17 GM POWD.PACK PO (09:55)
--- NOTE | 2023-06-01 12:05 | PC.NURSE ---
pt taken down to MRI
[2023-06-01 12:59] LABS: Glucose Point of Care 135 mg/dl (65-105)
[2023-06-01] MEDS: ACETAMINOPHEN 500 MG TABLET 1000 MG PO ×2 (13:12→21:10)
--- NOTE | 2023-06-01 15:47 | PM.IMPN ---
Progress Note: A&P Assessment and Plan (1) Weakness of left lower extremity: Code(s): R29.898 - Other symptoms and signs involving the musculoskeletal system Status: Acute (2) NESHA (acute kidney injury): Code(s): N17.9 - Acute kidney failure, unspecified Status: Acute (3) Abscess of groin, left: Code(s): L02.214 - Cutaneous abscess of groin Status: Acute Plan Patient doing well today. MRI of the brain without acute abnormalities. Obtain x-ray of pelvis and hips as she has pain causing her left lower extremity weakness. To do appreciate surgery recommendations. FEN: Saline lock IV GI prophylaxis: Continue home dose Protonix DVT prophylaxis: Continue apixaban Lines: Peripheral IV, De La Cruz catheter. Code Status: Full code. Dispo: Stable. Subjective Date/time seen: 06/01/23 15:47 Interval history: No acute overnight events. Patient delineates her left lower extremity weakness which she reports has been there since before admission and is due to pain at the left growing. She thinks that everyone does not listen to her but she does want to participate with therapy and such. This morning she complained of abdominal pain but after given a laxative and she had a bowel movement she feels fine now. No other complaints. Review of Systems Review of Systems: All systems reviewed & are unremarkable except as noted in HPI and below (Subjective) Exam Const: General: comfortable and no acute distress Other: A&O x3. Obese. Eyes: Pupils: Equal, round and reactive pupils present Neck: Neck: supple Resp: Effort & Inspection: normal respiratory effort Auscultation: clear to auscultation bilaterally Cardio: Rate: regular rate Rhythm: regular rhythm Heart sounds: no gallops, no murmurs and no rubs GI: GI Palp: Yes Soft to palpation and No Tenderness to palpation present (GI) Neuro: Other: Left lower extremity 3/5 strength at the hip due to pain. Extrem: General: no edema Objective Data Vital Signs Vital Signs: Vital Signs - 24 hr 05/31/23 20:02 05/31/23 20:02 05/31/23 20:43 Temperature 97.6 F Pulse Rate 82 82 88 Respiratory Rate 20 20 Blood Pressure 132/72 Pulse Oximetry 97 97 Oxygen Delivery Nasal Cannula Oxygen Flow Rate 2 05/31/23 20:00 06/01/23 05:43 06/01/23 07:27 Temperature 98.7 F Pulse Rate 77 Respiratory Rate 18 Blood Pressure 137/64 Pulse Oximetry 97 96 86 L Oxygen Delivery Nasal Cannula Room Air Oxygen Flow Rate 2 06/01/23 07:29 06/01/23 09:47 06/01/23 09:49 Temperature 97.7 F Pulse Rate 96 90 Respiratory Rate 18 Blood Pressure 134/76 Pulse Oximetry 90 100 Oxygen Delivery Nasal Cannula Oxygen Flow Rate 2 06/01/23 10:05 06/01/23 14:37 Temperature 98.3 F Pulse Rate 91 Respiratory Rate 16 Blood Pressure 135/67 Pulse Oximetry 100 99 Oxygen Delivery Nasal Cannula Oxygen Flow Rate 2 Intake/Output Intake/Output: Intake & Output 05/29/23 05/30/23 05/31/23 06/01/23 23:59 23:59 23:59 23:59 Intake Total 730 261 9402 0 Output Total 1290 1800 2200 1800 Balance -1000 -1000 -1200 -1800 Meds/Results Medications: Active Medications Generic Name Dose Route Start Last Admin Trade Name Freq PRN Reason Stop Dose Admin Acetaminophen 1,000 mg 05/23/23 17:34 06/01/23 13:12 Acetaminophen 500 Mg Tablet PO 1,000 mg Q6H PRN Administration Mild Pain (1-3) or Fever Albuterol 2 puff 05/18/23 00:15 Albuterol Sulfate (*Sp) Aerosol 1 Puff INHALATION QID PRN Shortness Of Breath Or Wheezing Albuterol/Ipratropium 3 ml 05/22/23 13:25 05/22/23 20:39 Ipratropium 0.5 Mg/Albuterol Sulfate 2.5 Mg Ampul.Neb 3 Ml INHALATION 3 ml Q6HRT PRN Administration Shortness Of Breath Or Wheezing Allopurinol 100 mg 05/18/23 08:00 06/01/23 09:49 Allopurinol 100 Mg Tablet PO 100 mg DAILY@0800 RADHA Administration Alprazolam 0.25 mg 05/31/23 10:58
[2023-06-01 16:50] LABS: Glucose Point of Care 128 mg/dl (65-105)
[2023-06-01 20:08] LABS: Glucose Point of Care 145 mg/dl (65-105)
[2023-06-01] MEDS: PRAZOSIN HCL 5 MG CAPSULE PO (21:03)
[2023-06-01] MEDS: QUEtiapine FUMARATE 25 MG TABLET PO (21:03)
[2023-06-01] MEDS: rOPINIRole HCL 0.5 MG TABLET PO (21:04)
[2023-06-01] MEDS: TOLNAFTATE 1% POWDER 45 GM BTL 1 APPLIC TOPICAL (21:05)
[2023-06-02] VITALS (8 sets, daily range): BP systolic 121–130; BP diastolic 57–64; PULSE 91–100; RESP 16–18; TEMP 36.4–36.8; O2SAT 95–99
[2023-06-02 05:09] LABS: Basophils Absolute Auto 0.1 K/mm3 (0.0-0.1); Basophils Percent Auto 0.7 % (0.2-1.2); Eosinophils Absolute Auto 0.4 K/mm3 (0-0.3); Eosinophils Percent Auto 5.4 % (0-4.4); Hematocrit 26.8 % (37.0-47.0); Hemoglobin 7.8 g/dL (12.0-15.0); Immature Granulocyte Absolute 0.13 K/mm3 (0.00-0.031); Immature Granulocyte Percent A 1.8 % (0-0.5); Lymphocytes Absolute Auto 0.76 K/mm3 (0.9-3.2); Lymphocytes Percent Auto 10.3 % (18.3-44.2); Mean Corpuscular HGB Conc 29.1 g/dl (32-36); Mean Corpuscular Hemoglobin 30.1 pg (26-34); Mean Corpuscular Volume 103.5 fl (80-100); Mean Platelet Volume 10.2 fl (7.4-10.4); Monocytes Absolute Auto 0.6 K/mm3 (0.1-0.6); Monocytes Percent Auto 8.6 % (2.6-8.5); Neutrophils Absolute Auto 5.4 K/mm3 (1.3-6.7); Neutrophils Percent Auto 73.2 % (45.5-73.1); Platelet Count Result 296 k/mm3 (150-375); Red Blood Count 2.59 M/mm3 (4.2-5.4); Red Cell Distribution Width 14.6 % (11.5-14.5); White Blood Count 7.4 K/mm3 (4.5-10.0)
[2023-06-02 05:15] LABS: Anion Gap 3 mmol/L (4-12); Blood Urea Nitrogen 29 mg/dL (7-17); Calcium 8.6 mg/dL (8.4-10.2); Carbon Dioxide 28 mmol/L (22-30); Chloride 102 mmol/L (98-107); Estimated CRCL calculation 45 ml/min; Estimated Glomerular Filt Rate 37; Glucose 91 mg/dL (65-110); Potassium 4.6 mmol/L (3.4-5.0); Sodium 133 mmol/L (137-145)
[2023-06-02 05:32] LABS: Anisocytosis 1+; Hypochromasia 1+; Ovalocytes 1+; Platelet Estimate Adequate (Adequate); Schistocytes None Seen
[2023-06-02] MEDS: FLUTICASONE/SALMETEROL 115-21 MCG INHALER 1 PUFF 2 PUFF INHALATION ×2 (07:12→20:31)
[2023-06-02 08:18] LABS: Glucose Point of Care 88 mg/dl (65-105)
[2023-06-02] MEDS: diphenhydrAMINE HCl CAP 25 MG CAPSULE PO (10:09)
[2023-06-02] MEDS: APIXABAN 2.5 MG TABLET PO ×2 (10:10→20:16)
[2023-06-02] MEDS: CYANOCOBALAMIN 1,000 MCG TABLET 1000 MCG PO (10:10)
[2023-06-02] MEDS: AMIODARONE HCL 200 MG TABLET BY MOUTH (10:10)
[2023-06-02] MEDS: DOCUSATE SODIUM 100 MG CAPSULE PO ×2 (10:10→17:56)
[2023-06-02] MEDS: FLUoxetine HCL 20 MG CAPSULE 40 MG PO ×2 (10:10→20:15)
[2023-06-02] MEDS: OXcarbazepine 300 MG TABLET PO ×2 (10:11→20:17)
[2023-06-02] MEDS: GABAPENTIN 100 MG CAPSULE PO ×3 (10:11→17:56)
[2023-06-02] MEDS: allopurinoL 100 MG TABLET PO (10:11)
[2023-06-02] MEDS: PANTOPRAZOLE 40 MG TABLET PO (10:11)
[2023-06-02] MEDS: ATORVASTATIN 40 MG TABLET 80 MG PO (10:11)
[2023-06-02] MEDS: DOXEPIN HCL 25 MG CAPSULE PO ×2 (10:11→20:16)
[2023-06-02] MEDS: AMOXICILLIN/CLAVULANATE K 875-125 MG TAB 1 TABLET PO ×2 (10:11→20:16)
[2023-06-02] MEDS: BUMETANIDE 1 MG TABLET 2 MG PO (10:11)
[2023-06-02] MEDS: TOLNAFTATE 1% POWDER 45 GM BTL 1 APPLIC TOPICAL ×2 (10:12→20:17)
[2023-06-02] MEDS: PRIMIDONE 50 MG TABLET PO ×2 (10:12→17:56)
[2023-06-02] MEDS: CARBIDOPA/LEVODOPA 25/100 MG TABLET 3 TABLET PO ×3 (10:22→17:56)
[2023-06-02] MEDS: INSULIN GLARGINE (*BKC) 100 UNITS/ML 18 UNITS SUB-Q (10:22)
[2023-06-02 11:53] LABS: Glucose Point of Care 112 mg/dl (65-105)
[2023-06-02] MEDS: ACETAMINOPHEN 500 MG TABLET 1000 MG PO (13:00)
--- NOTE | 2023-06-02 14:16 | PM.IMPN ---
Progress Note: A&P Assessment and Plan (1) Weakness of left lower extremity: Code(s): R29.898 - Other symptoms and signs involving the musculoskeletal system Status: Acute (2) NESHA (acute kidney injury): Code(s): N17.9 - Acute kidney failure, unspecified Status: Acute (3) Abscess of groin, left: Code(s): L02.214 - Cutaneous abscess of groin Status: Acute Plan 72-year-old female with history of diabetes hypertension dyslipidemia restless leg syndrome CKD COPD chronic respiratory failure GERD heart failure DERRICK Parkinson's disease presents with generalized weakness. She has been treated for acute on chronic anemia. B12 low. Replacement ordered. Status post 1 unit PRBC Patient has been noted to be very weak. Use sedatives and narcotics judiciously. She is doing much better. There was some left lower extremity weakness noted neurology was consulted. CT head and MRI brain negative for acute intracranial process. Upon further examination she appears to have left lower extremity weakness due to pain at the left growing. Pelvis and hip x-ray not indicative of acute fracture. It is somewhat improved as she is participating with therapy. Pain management p.r.n., continue therapy, discharged to acute rehab. Advised weight loss. NESHA on CKD. Improved status post fluid resuscitation. Continue to monitor on Bumex Cellulitis of left growing. She is status post complex I&D of left perineal abscess. Antibiotics have been transition to Augmentin p.o.. Remove drains prior to discharge if okay with surgery, remove De La Cruz catheter concurrently. Acute hypokalemia of status post replacement. Acute hyponatremia improved. Continue insulin sliding scale for diabetes mellitus. Thrush appears to have resolved FEN: Saline lock IV. Heart healthy diabetic diet GI prophylaxis: Continue home dose Protonix DVT prophylaxis: Apixaban can be discontinued prior to discharge. This was started on 12/29/2021 for thrombosis of right cephalic vein noted by venous Doppler. Lines: Peripheral IV, De La Cruz catheter. Perennial drain Code Status: Full code. Dispo: Stable. Subjective Date/time seen: 06/02/23 14:16 Interval history: No acute overnight events. Patient complains of pain at the left hip. She is willing to ambulate with therapy. Review of Systems Review of Systems: All systems reviewed & are unremarkable except as noted in HPI and below (Subjective) Exam Const: General: comfortable and no acute distress Other: A&O x3. Obese. Eyes: Pupils: Equal, round and reactive pupils present Neck: Neck: supple Resp: Effort & Inspection: normal respiratory effort Auscultation: clear to auscultation bilaterally Cardio: Rate: regular rate Rhythm: regular rhythm GI: GI Palp: Yes Soft to palpation and No Tenderness to palpation present (GI) Extrem: General: no edema Objective Data Vital Signs Vital Signs: Vital Signs - 24 hr 06/01/23 14:37 06/01/23 20:00 06/01/23 20:12 Temperature 98.3 F 97.9 F Pulse Rate 91 92 Respiratory Rate 16 16 Blood Pressure 135/67 131/60 Pulse Oximetry 99 97 97 Oxygen Delivery Nasal Cannula Oxygen Flow Rate 2 06/01/23 20:00 06/02/23 07:12 06/02/23 10:09 Temperature Pulse Rate 100 Respiratory Rate 16 Blood Pressure 121/64 Pulse Oximetry 97 96 95 Oxygen Delivery Nasal Cannula Nasal Cannula Oxygen Flow Rate 2 2 06/02/23 10:10 06/02/23 10:20 06/02/23 10:50 Temperature Pulse Rate 98 Respiratory Rate Blood Pressure Pulse Oximetry 95 Oxygen Delivery Nasal Cannula Nasal Cannula Oxygen Flow Rate 2 2 Intake/Output Intake/Output: Intake & Output 05/30/23 05/31/23 06/01/23 06/02/23 23:59 23:59 23:59 23:59 Intake Total 800 1000 0 440 Output Total 1800 2200 1800 700 Balance -1000 -1200 -1800 -260 Meds/Results Medications: Active Medications Generic Name Dose Route Start Last Admin Trade Name Timq
[2023-06-02 17:17] LABS: Glucose Point of Care 152 mg/dl (65-105)
[2023-06-02] MEDS: QUEtiapine FUMARATE 25 MG TABLET PO (20:17)
[2023-06-02] MEDS: PRAZOSIN HCL 5 MG CAPSULE PO (20:17)
[2023-06-02] MEDS: rOPINIRole HCL 0.5 MG TABLET PO (20:17)
[2023-06-02 21:15] LABS: Glucose Point of Care 123 mg/dl (65-105)
[2023-06-03] VITALS (7 sets, daily range): BP systolic 129–143; BP diastolic 57–69; PULSE 94–95; RESP 14–20; TEMP 35.8–36.8; O2SAT 95–99
[2023-06-03 05:33] LABS: Hematocrit 26.2 % (37.0-47.0); Hemoglobin 7.8 g/dL (12.0-15.0); Mean Corpuscular HGB Conc 29.8 g/dl (32-36); Mean Corpuscular Hemoglobin 30.5 pg (26-34); Mean Corpuscular Volume 102.3 fl (80-100); Mean Platelet Volume 10.9 fl (7.4-10.4); Platelet Count Result 305 k/mm3 (150-375); Red Blood Count 2.56 M/mm3 (4.2-5.4); Red Cell Distribution Width 14.9 % (11.5-14.5); White Blood Count 6.8 K/mm3 (4.5-10.0)
[2023-06-03 05:38] LABS: Anion Gap 2 mmol/L (4-12); Blood Urea Nitrogen 28 mg/dL (7-17); Carbon Dioxide 30 mmol/L (22-30); Chloride 103 mmol/L (98-107); Estimated CRCL calculation 42 ml/min; Estimated Glomerular Filt Rate 34; Glucose 104 mg/dL (65-110); Potassium 4.6 mmol/L (3.4-5.0); Sodium 135 mmol/L (137-145)
[2023-06-03] MEDS: FLUTICASONE/SALMETEROL 115-21 MCG INHALER 1 PUFF 2 PUFF INHALATION (07:15)
[2023-06-03 08:09] LABS: Glucose Point of Care 90 mg/dl (65-105)
[2023-06-03] MEDS: BUMETANIDE 1 MG TABLET 2 MG PO (08:22)
[2023-06-03] MEDS: APIXABAN 2.5 MG TABLET PO ×2 (08:22→19:40)
[2023-06-03] MEDS: CYANOCOBALAMIN 1,000 MCG TABLET 1000 MCG PO (08:22)
[2023-06-03] MEDS: ATORVASTATIN 40 MG TABLET 80 MG PO (08:22)
[2023-06-03] MEDS: CARBIDOPA/LEVODOPA 25/100 MG TABLET 3 TABLET PO ×3 (08:22→17:57)
[2023-06-03] MEDS: OXcarbazepine 300 MG TABLET PO ×2 (08:22→19:39)
[2023-06-03] MEDS: FLUoxetine HCL 20 MG CAPSULE 40 MG PO ×2 (08:22→19:39)
[2023-06-03] MEDS: DOCUSATE SODIUM 100 MG CAPSULE PO ×2 (08:22→17:58)
[2023-06-03] MEDS: allopurinoL 100 MG TABLET PO (08:22)
[2023-06-03] MEDS: DOXEPIN HCL 25 MG CAPSULE PO ×2 (08:22→19:39)
[2023-06-03] MEDS: PRIMIDONE 50 MG TABLET PO ×2 (08:22→17:58)
[2023-06-03] MEDS: AMOXICILLIN/CLAVULANATE K 875-125 MG TAB 1 TABLET PO ×2 (08:22→19:40)
[2023-06-03] MEDS: PANTOPRAZOLE 40 MG TABLET PO (08:23)
[2023-06-03] MEDS: AMIODARONE HCL 200 MG TABLET BY MOUTH (08:23)
[2023-06-03] MEDS: TOLNAFTATE 1% POWDER 45 GM BTL 1 APPLIC TOPICAL (08:23)
[2023-06-03] MEDS: GABAPENTIN 100 MG CAPSULE PO ×3 (08:23→17:58)
[2023-06-03] MEDS: INSULIN GLARGINE (*BKC) 100 UNITS/ML 18 UNITS SUB-Q (08:27)
--- NOTE | 2023-06-03 09:41 | PCNWS ---
Weekly nutritional screen. Patient is tolerating current diet with adequate intake. 100% meals on consistent carb diet. No weight loss reported. No nutritional needs at this time.
--- NOTE | 2023-06-03 10:12 | PM.IMPN ---
Progress Note: A&P Assessment and Plan (1) Weakness of left lower extremity: Code(s): R29.898 - Other symptoms and signs involving the musculoskeletal system Status: Acute (2) NESHA (acute kidney injury): Code(s): N17.9 - Acute kidney failure, unspecified Status: Acute (3) Abscess of groin, left: Code(s): L02.214 - Cutaneous abscess of groin Status: Acute Plan 72-year-old female with history of diabetes hypertension dyslipidemia restless leg syndrome CKD COPD chronic respiratory failure GERD heart failure DERRICK Parkinson's disease presents with generalized weakness. She has been treated for acute on chronic anemia. B12 low. Replacement ordered. Status post 1 unit PRBC Patient has been noted to be very weak. Use sedatives and narcotics judiciously. She is doing much better. There was some left lower extremity weakness noted neurology was consulted. CT head and MRI brain negative for acute intracranial process. Upon further examination she appears to have left lower extremity weakness due to pain at the left growing. Pelvis and hip x-ray not indicative of acute fracture. It is somewhat improved as she is participating with therapy. Pain management p.r.n., continue therapy, discharged to acute rehab. Advised weight loss. NESHA on CKD. Improved status post fluid resuscitation. Continue to monitor on Bumex Cellulitis of left growing. She is status post complex I&D of left perineal abscess. Antibiotics have been transition to Augmentin p.o.. GAVIOTA VAC and folic catheter I removed will continue Augmentin for 7 more days general surgery will see patient in 2 weeks Acute hypokalemia of status post replacement. corrected Acute hyponatremia improved. Sodium 135 today hyperglycemia received the insulin sliding scale Not on home medication for diabetes Glucose in the target Follow-up with primary care doctor for further evaluation Thrush appears to have resolved patient will be discharged to detention today Dispo: Stable. Subjective Date/time seen: 06/03/23 10:12 Interval history: No acute overnight events. patient is afebrile, blood pressure stable, denies chest pain, abdomen pain. GAVIOTA VAC is removed, no active drainage from wound Exam Narrative: GENERAL: Pleasant, in no acute distress. Well-nourished. - EYES: EOMI. Anicteric. - HENT: Moist mucous membranes. - LUNGS: Clear to auscultation bilaterally, no wheezing, rhonchi, or rales. - CARDIOVASCULAR: Regular rate and rhythm. No murmur. No JVD. - ABDOMEN: Soft, non-tender and non-distended. No palpable masses. surgical wound is well-dressed, dressing is dry and clean - EXTREMITIES: No edema. Peripheral pulses 2+. Non-tender. - NEUROLOGIC: No focal neurological deficits. CN II-XII grossly intact. - PSYCHIATRIC: Awake, Alert and oriented x 3. Appropriate mood and affect. - SKIN: No rashes or lesions. Warm. - LYMPH: No cervical lymphadenopathy. Objective Data Vital Signs Vital Signs: Vital Signs - 24 hr 06/02/23 10:20 06/02/23 10:50 06/02/23 14:00 Temperature 98.3 F Pulse Rate 91 Respiratory Rate 18 Blood Pressure 130/57 L Pulse Oximetry 95 99 Oxygen Delivery Nasal Cannula Nasal Cannula Oxygen Flow Rate 2 2 06/02/23 19:51 06/02/23 20:37 06/02/23 20:00 Temperature 97.5 F L Pulse Rate 91 91 Respiratory Rate 18 Blood Pressure 122/59 L Pulse Oximetry 99 99 Oxygen Delivery Nasal Cannula Oxygen Flow Rate 2 06/03/23 06:24 06/03/23 07:15 06/03/23 07:15 Temperature 97.4 F L Pulse Rate 94 95 95 Respiratory Rate 18 18 18 Blood Pressure 130/61 Pulse Oximetry 99 95 Oxygen Delivery Nasal Cannula Oxygen Flow Rate 2 06/03/23 08:23 Temperature Pulse Rate 95 Respiratory Rate Blood Pressure Pulse Oximetry Oxygen Delivery Oxygen Flow Rate Intake/Output Intake/Output: Intake & Output 05/31/23 06/01/23 06/02/23 06/03/23 23:59 23:59 2
--- NOTE | 2023-06-03 11:36 | PM.PNGS ---
Progress Note: A&P Assessment and Plan (1) Abscess of groin, left: Code(s): L02.214 - Cutaneous abscess of groin Status: Acute Assessment and Plan: S/p complex I&D of left perineal abscess. Abscess is adequately drained. Induration and swelling continues to improve. Both drains removed today. Stable from a surgical standpoint to discharge to SNF. Continue dry cover dressing changes daily. Follow-up with Dr. Veronica in 2 weeks. Plan I have discussed the patient's case and plan of care with Dr. Veronica. Subjective Subjective Date/Time Seen: 06/03/23 11:36 Patient reports: no new complaints and afebrile Interval history: Chart reviewed since last seen. Per nursing, plan is for discharge to [facility] today. No acute issues over the weekend. Patient denies any pain at this time. Exam Skin: Other: Left perineal wound with [address] through counter incisions near the pubis, surrounding erythema and induration continues to improve, no purulent drainage noted, minimal serosanguineous drainage on the gauze dressing that was removed. Both drains removed at the bedside today. Objective Data Vital Signs Vital Signs: Vital Signs - 24 hr 06/02/23 14:00 06/02/23 19:51 06/02/23 20:37 Temperature 98.3 F 97.5 F L Pulse Rate 91 91 91 Respiratory Rate 18 18 Blood Pressure 130/57 L 122/59 L Pulse Oximetry 99 99 Oxygen Delivery Oxygen Flow Rate 06/02/23 20:00 06/03/23 06:24 06/03/23 07:15 Temperature 97.4 F L Pulse Rate 94 95 Respiratory Rate 18 18 Blood Pressure 130/61 Pulse Oximetry 99 99 95 Oxygen Delivery Nasal Cannula Nasal Cannula Oxygen Flow Rate 2 2 06/03/23 07:15 06/03/23 08:23 06/03/23 08:20 Temperature Pulse Rate 95 95 Respiratory Rate 18 Blood Pressure Pulse Oximetry 95 Oxygen Delivery Nasal Cannula Oxygen Flow Rate 2 Intake/Output Intake/Output: Intake & Output 05/31/23 06/01/23 06/02/23 06/03/23 23:59 23:59 23:59 23:59 Intake Total 1000 0 1520 300 Output Total 2200 1800 1900 1400 Balance -1200 -1800 -380 -1100 Meds/Results Medications: Active Medications Generic Name Dose Route Start Last Admin Trade Name Freq PRN Reason Stop Dose Admin Acetaminophen 1,000 mg 05/23/23 17:34 06/02/23 13:00 Acetaminophen 500 Mg Tablet PO 1,000 mg Q6H PRN Administration Mild Pain (1-3) or Fever Albuterol 2 puff 05/18/23 00:15 Albuterol Sulfate (*Sp) Aerosol 1 Puff INHALATION QID PRN Shortness Of Breath Or Wheezing Albuterol/Ipratropium 3 ml 05/22/23 13:25 05/22/23 20:39 Ipratropium 0.5 Mg/Albuterol Sulfate 2.5 Mg Ampul.Neb 3 Ml INHALATION 3 ml Q6HRT PRN Administration Shortness Of Breath Or Wheezing Allopurinol 100 mg 05/18/23 08:00 06/03/23 08:22 Allopurinol 100 Mg Tablet PO 100 mg DAILY@0800 RADHA Administration Alprazolam 0.25 mg 05/31/23 10:58 05/31/23 14:16 Alprazolam (*Crx) 0.25 Mg Tablet PO 0.25 mg TID PRN Administration Anxiety Amiodarone HCl 200 mg 05/18/23 08:00 06/03/23 08:23 Amiodarone Hcl 200 Mg Tablet BY MOUTH 200 mg DAILY@0800 RADHA Administration Amoxicillin/Clavulanate Potassium 1 tablet 05/30/23 21:00 06/03/23 08:22 Amoxicillin/Clavulanate K 875-125 Mg Tab PO 1 tablet Q12HR RADHA Administration Apixaban 2.5 mg 05/18/23 00:30 06/03/23 08:22 Apixaban 2.5 Mg Tablet PO 2.5 mg Q12HR RADHA Administration Atorvastatin Calcium 80 mg 05/18/23 09:00 06/03/23 08:22 Atorvastatin 40 Mg Tablet PO 80 mg QAM RADHA Administration Bumetanide 2 mg 05/30/23 09:00 06/03/23 08:22 Bumetanide 1 Mg Tablet PO 2 mg DAILY RADHA Administration Carbidopa/Levodopa 3 tablet 05/18/23 08:00 06/03/23 08:22 Carbidopa/Levodopa 25/100 Mg Tablet PO 3 tablet TIDWM RADHA Administration Cyanocobalamin 1,000 mcg 05/23/23 09:00 06/03/23 08:22 Cyanocobalamin 1,000 Mcg Tablet PO 1,000 mcg QAM [facility] Administration De
[2023-06-03 11:54] LABS: Glucose Point of Care 115 mg/dl (65-105)
--- NOTE | 2023-06-03 12:06 | WPDNEUROPN ---
Progress Note: A&P Assessment and Plan (1) Weakness of left lower extremity: Code(s): R29.898 - Other symptoms and signs involving the musculoskeletal system Status: Acute Assessment and Plan: MRI of the brain was within normal limits. I have reviewed the results and films. I agree with the findings. I suspect that the left lower limb weakness subjective due to the pain and abscess and the left groin area from which he is however improving. If the symptoms continue and the other possibilities may include diabetic polyradiculopathy or lumbosacral radiculopathy and may require EMG nerve study the left lower limb and the symptoms continue beyond 3-4 weeks in addition to MRI of the lumbosacral spine if necessary. She has an appointment to see her neurologist and pelvis in 2 weeks time and I have advised her to continue follow-up with the neurologist there since he sees him for Parkinson's disease also. (2) Diabetic polyneuropathy: Code(s): E11.42 - Type 2 diabetes mellitus with diabetic polyneuropathy Status: Acute (3) Diabetes mellitus with chronic kidney disease: Code(s): E11.22 - Type 2 diabetes mellitus with diabetic chronic kidney disease Status: Chronic (4) Atrial fibrillation: Code(s): I48.91 - Unspecified atrial fibrillation Status: Acute (5) Parkinson disease: Code(s): G20 - Parkinson's disease Status: Acute Plan Continue follow with a neurologist in [place] with whom she follows up with regard to Parkinson's disease as discussed above with regard to the left lower limb issues Elly problem resolved with the resolution of the infection in the left groin. Subjective Date/time seen: 06/03/23 12:06 The patient is 72 old with history of Parkinson's disease and left lower limb weakness was seen for follow-up today. No new symptoms reported. She continues to feel weak in the left leg and states when she tried to lift it she has pain in the left groin area and she thinks that her tendons are tender. She denies any problem with the left buttock or lower back. She has history of diabetes mellitus. She is under treatment for the abscess and in fact she is improving according to the surgical notes.. Review of Systems Review of Systems: no new symptoms reported. She reports that the pain is still about the same in the left groin or perineal area although the infection is improving. Exam Narrative: To moderate parkinsonian features were noted. Nadira. No levodopa induced dyskinesia. Strength in the upper and lower limbs appears symmetric. Objective Data Vital Signs Vital Signs: Vital Signs - 24 hr 06/02/23 14:00 06/02/23 19:51 06/02/23 20:37 Temperature 36.8 C 36.4 C L Pulse Rate 91 91 91 Respiratory Rate 18 18 Blood Pressure 130/57 L 122/59 L Pulse Oximetry 99 99 Oxygen Delivery Oxygen Flow Rate 06/02/23 20:00 06/03/23 06:24 06/03/23 07:15 Temperature 36.3 C L Pulse Rate 94 95 Respiratory Rate 18 18 Blood Pressure 130/61 Pulse Oximetry 99 99 95 Oxygen Delivery Nasal Cannula Nasal Cannula Oxygen Flow Rate 2 2 06/03/23 07:15 06/03/23 08:23 06/03/23 08:20 Temperature Pulse Rate 95 95 Respiratory Rate 18 Blood Pressure Pulse Oximetry 95 Oxygen Delivery Nasal Cannula Oxygen Flow Rate 2 Intake/Output Intake/Output: Intake & Output 05/31/23 06/01/23 06/02/23 06/03/23 23:59 23:59 23:59 23:59 Intake Total 1000 0 1520 300 Output Total 2200 1800 1900 1400 Balance -1200 -1800 -380 -1100 Meds/Results Medications: Active Medications Generic Name Dose Route Start Last Admin Trade Name Freq PRN Reason Stop Dose Admin Acetaminophen 1,000 mg 05/23/23 17:34 06/02/23 13:00 Acetaminophen 500 Mg Tablet PO 1,000 mg Q6H PRN Administration Mild Pain (1-3) or Fever Albuterol 2 puff 05/18/23 00:15 Albuterol Sulfate (*Sp) Aerosol 1 Puff INHALATION QID PRN
[2023-06-03] MEDS: ACETAMINOPHEN 500 MG TABLET 1000 MG PO ×2 (12:54→19:38)
--- NOTE | 2023-06-03 15:53 | PM.DS ---
DS: Admitting Diagnosis Discharge Date 06/03/23 Admitting Diagnosis (1) Weakness of left lower extremity: ?Code(s): R29.898 - Other symptoms and signs involving the musculoskeletal system ?Status:?Acute (2) NESHA (acute kidney injury): ?Code(s): N17.9 - Acute kidney failure, unspecified ?Status:?Acute (3) Abscess of groin, left: ?Code(s): L02.214 - Cutaneous abscess of groin ?Status:?Acute DS: Discharge Diagnosis Discharge Diagnosis (1) Weakness of left lower extremity: Code(s): R29.898 - Other symptoms and signs involving the musculoskeletal system Status: Acute (2) NESHA (acute kidney injury): Code(s): N17.9 - Acute kidney failure, unspecified Status: Acute (3) Abscess of groin, left: Code(s): L02.214 - Cutaneous abscess of groin Status: Acute DS: Summary Hospital Course Hospital Course: 72-year-old female with history of diabetes hypertension dyslipidemia restless leg syndrome CKD COPD chronic respiratory failure GERD heart failure DERRICK Parkinson's disease presents with generalized weakness. the following med issues have been addressed during hospitalization She has been treated for acute on chronic anemia. B12 low. Replacement ordered. Status post 1 unit PRBC hemoglobin stable Patient has been noted to be very weak. Use sedatives and narcotics judiciously. She is doing much better. There was some left lower extremity weakness noted neurology was consulted. CT head and MRI brain negative for acute intracranial process. Upon further examination she appears to have left lower extremity weakness due to pain at the left growing. Pelvis and hip x-ray not indicative of acute fracture. It is somewhat improved as she is participating with therapy. Pain management p.r.n., continue therapy, discharged to acute rehab. Advised weight loss. neurologist recommended patient to follow-up with her neurologist after discharge NESHA on CKD. Improved status post fluid resuscitation. Continue to monitor on Bumex Cellulitis of left growing. She is status post complex I&D of left perineal abscess. Antibiotics have been transition to Augmentin p.o.. GAVIOTA VAC and folic catheter I removed will continue Augmentin for 7 more days general surgery will see patient in 2 weeks Acute hypokalemia of status post replacement. corrected Acute hyponatremia improved. Sodium 135 today hyperglycemia received the insulin sliding scale Not on home medication for diabetes Glucose in the target Follow-up with primary care doctor for further evaluation Thrush appears to have resolved patient will be discharged to half-way today Dispo: Stable. Time Spent with Patient Time attestation: Total time spent providing and/or coordinating discharge services: Exam Narrative: GENERAL: Pleasant, in no acute distress. Well-nourished. - EYES: EOMI. Anicteric. - HENT: Moist mucous membranes. - LUNGS: Clear to auscultation bilaterally, no wheezing, rhonchi, or rales. - CARDIOVASCULAR: Regular rate and rhythm. No murmur. No JVD. - ABDOMEN: Soft, non-tender and non-distended. No palpable masses. surgical wound is well-dressed, dressing is dry and clean - EXTREMITIES: No edema. Peripheral pulses 2+. Non-tender. - NEUROLOGIC: No focal neurological deficits. CN II-XII grossly intact. - PSYCHIATRIC: Awake, Alert and oriented x 3. Appropriate mood and affect. - SKIN: No rashes or lesions. Warm. - LYMPH: No cervical lymphadenopathy. DS: Data Data Completed and Pending Labs on day of discharge: Labs from last 24 hours 06/03/23 06/03/23 06/03/23 11:52 08:00 04:39 WBC 6.8 RBC 2.56 L Hgb 7.8 L Hct 26.2 L MCV 102.3 H MCH 30.5 MCHC 29.8 L RDW 14.9 H Plt Count 305 MPV 10.9 H Sodium 135 L Potassium 4.6 Chloride 103 Carbon Dioxide 30 Anion Gap 2 L BUN 28 H Creatinine 1.50 H Estim Creat C
[2023-06-03 17:00] LABS: Glucose Point of Care 130 mg/dl (65-105)
[2023-06-03 17:02] LABS: Influenza A QL RT-PCR Negative (Negative); Influenza B QL RT-PCR Negative (Negative); RSV RNA, RT-PCR Negative (Negative); SARS-CoV-2 RNA PCR Negative (Negative)
[2023-06-03] MEDS: ALPRAZolam (*CRX) 0.25 MG TABLET PO (17:57)
[2023-06-03] MEDS: rOPINIRole HCL 0.5 MG TABLET PO (19:39)
[2023-06-03] MEDS: PRAZOSIN HCL 5 MG CAPSULE PO (19:39)
[2023-06-03] MEDS: diphenhydrAMINE HCl CAP 25 MG CAPSULE PO (19:39)
[2023-06-03] MEDS: QUEtiapine FUMARATE 25 MG TABLET PO (19:39)
[2023-06-05 07:27] LABS: T3 Free 1.5
== END 2023-06-03 20:23 | DRG 603 ==
LOC: ANHED 17:42 → ANHIMU 20:12 → ANH2MED 05-19 22:10
PROVIDERS: Emergency Medicine; Family Medicine; General Practice; Internal Medicine; Internal Medicine Critical Care Medicine; Psychiatry & Neurology Neurology; Surgery; Admitting Provider Internal Medicine; Emergency Provider Emergency Medicine; Visit Provider Hospitalist
PROC: 0W9N3ZZ Drainage of Female Perineum, Percutaneous Approach (ICD-10-PCS; CPT 46040; principal; 2023-05-23 14:45)
DX: L02.215 Cutaneous abscess of perineum (principal); I13.0 Hypertensive heart and chronic kidney disease with heart failure and stage 1 through stage 4 chronic kidney disease, or unspecified chronic kidney disease; I50.32 Chronic diastolic (congestive) heart failure; E87.1 Hypo-osmolality and hyponatremia; N17.9 Acute kidney failure, unspecified; Z68.43 Body mass index [BMI] 50.0-59.9, adult; J96.10 Chronic respiratory failure, unspecified whether with hypoxia or hypercapnia; N18.4 Chronic kidney disease, stage 4 (severe); G20.A1 Parkinson's disease without dyskinesia, without mention of fluctuations; E11.22 Type 2 diabetes mellitus with diabetic chronic kidney disease; B95.4 Other streptococcus as the cause of diseases classified elsewhere; B96.89 Other specified bacterial agents as the cause of diseases classified elsewhere; B37.9 Candidiasis, unspecified; D63.1 Anemia in chronic kidney disease; E86.0 Dehydration; E11.65 Type 2 diabetes mellitus with hyperglycemia; E66.01 Morbid (severe) obesity due to excess calories; E78.5 Hyperlipidemia, unspecified; E03.9 Hypothyroidism, unspecified; E53.8 Deficiency of other specified B group vitamins; E11.40 Type 2 diabetes mellitus with diabetic neuropathy, unspecified; E87.5 Hyperkalemia; F32.A Depression, unspecified; F41.9 Anxiety disorder, unspecified; G47.33 Obstructive sleep apnea (adult) (pediatric); G25.81 Restless legs syndrome; I48.91 Unspecified atrial fibrillation; J44.9 Chronic obstructive pulmonary disease, unspecified; K59.09 Other constipation; K21.9 Gastro-esophageal reflux disease without esophagitis; M19.90 Unspecified osteoarthritis, unspecified site; M10.9 Gout, unspecified; Z96.653 Presence of artificial knee joint, bilateral; Z90.710 Acquired absence of both cervix and uterus; Z99.81 Dependence on supplemental oxygen; Z11.52 Encounter for screening for COVID-19; Z20.822 Contact with and (suspected) exposure to COVID-19; Z79.84 Long term (current) use of oral hypoglycemic drugs; Z79.01 Long term (current) use of anticoagulants
CPT/HCPCS: 36415; 36430; 36600; 70450; 70551; 71045; 72192; 73521; 74018; 76775; 80048; 80053; 80061; 80069; 81003; 82010; 82306; 82533; 82550; 82570; 82607; 82728; 82746; 82805; 82948; 83036; 83540; 83550; 83735; 84100; 84300; 84436; 84443; 84480; 84540; 85025; 85027; 85055; 85999; 86850; 86900; 86901; 86923; 87040; 87070; 87075; 87076; 87077; 87185; 87205; 87637; 93880; 94640; 96360; 96361; 97110; 97162; 97165; 97530; 97535; 99285; A9270; G0378; J0330; J0690; J1170; J1200; J1335; J1815; J1836; J2250; J2405; J3010; J3420; J7030; J7040; J7050; J7120; P9016

== ENCOUNTER 2023-06-14 10:52 | Inpatient (IN) | payer MEDICARE, BC, SELFPAY ==
[2023-06-14] VITALS (22 sets, daily range): BP systolic 108–160; BP diastolic 56–99; PULSE 80–92; RESP 12–20; TEMP 36.6–37.1; O2SAT 92–100; BMI 56.5
--- NOTE | ~2023-06-14 | US_ITS ---
EXAMINATION: US venous doppler [facility] DATE: 06/16/2023 18:55 INDICATION: Left upper limb swelling TECHNIQUE: Grayscale images without and with compression and Doppler images of the left upper extremi ty veins were obtained. COMPARISON: None. FINDINGS: The left internal jugular vein, subclavian vein, axillary vein, brachial vein, basilic vein, cephalic vein, radial vein, and ulnar vein are patent. IMPRESSION: 1. Patent left upper extremity veins. No evidence of venous thrombosis. Reviewed, dictated and finalized at location A.
--- NOTE | ~2023-06-14 | CT_ITS ---
EXAMINATION: CT diagnostic chest wo con DATE: 06/16/2023 14:26 INDICATION: A/C respiratory failure with hypoxia and hypercapnia TECHNIQUE: Computed tomography (CT) of the chest was performed without intravenous contrast. Addition al 3D reconstructions utilizing coronal maximum intensity projection (MIP) were performed. Automated exposure control and iterative reconstruction technique were employed. The dose-length product was 89 5.79 mGy-cm. COMPARISON: 05/06/2022 FINDINGS: Very small bilateral pleural effusions with dependent compressive atelectasis in both lower lobes. Mi ld emphysema. Small geographic regions of septal line thickening, groundglass opacity and <5 mm nodul ar opacities suspicious for pneumonia in the posterior segment of the right upper lobe, in the right middle lobe and lingula. Interval increase in size of a previously 8 x 6 x 8 mm, currently 10 x 7 x 8 mm subpleural nodule at the posterior left upper lobe. 11 x 7 x 6 mm perifissural nodule at the righ t middle lobe along the major fissure which is new since the prior study. 13 x 9 mm lenticular pleura l-based nodule at the dome of the right hemidiaphragm with fat attenuation most likely small lipoma. Mild cardiomegaly. Decreased attenuation the blood pool relative to myocardium consistent with anemia . Atherosclerotic coronary artery calcification. Aortic valve calcific lesion. No pericardial effusio n. Thoracic aorta is normal in caliber. No pathologically enlarged thoracic lymphadenopathy. 1.5 cm l ess than fluid attenuation right adrenal adenoma. 1.4 cm left renal cyst. 3 mm centimeters stone at t he upper pole of the right kidney. Moderate thoracic spondylosis. IMPRESSION: 1. Mild emphysema with a few geographic regions of interstitial and airspace opacities suspicious for pneumonia with differential including atelectasis or chronic interstitial lung disease. 2. Very small bilateral pleural effusions. 3. Several scattered pulmonary nodules, the most concerning for a 10 x 7 x 8 mm subpleural left upper lobe nodule which is minimally but not yet significantly increased from 8 x 6 x 8 mm in the 14 month s since the prior study and a 11 x 7 x 6 mm para fissural nodule in the right middle lobe which is ne w since the prior study. Could consider further evaluation with either or 3 month follow-up low-dose chest CT or PET/CT. Successful CT guided biopsy would be challenging for both nodules given their siz e, location and patient body habitus. 4. Cardiomegaly. 5. 3 mm nonobstructing right renal stone.. Reviewed, dictated and finalized at location A. IMPRESSION: 1. Mild emphysema with a few geographic regions of interstitial and airspace op acities suspicious for pneumonia with differential including atelectasis or chr onic interstitial lung disease. 2. Very small bilateral pleural effusions. 3. Several scattered pulmonary nodules, the most concerning for a 10 x 7 x 8 mm subpleural left upper lobe nodule which is minimally but not yet significantly increased from 8 x 6 x 8 mm in the 14 months since the prior study and a 11 x 7 x 6 mm para fissural nodule in the right middle lobe which is new since the p rior study. Could consider further evaluation with either or 3 month follow-up low-dose chest CT or PET/CT. Successful CT guided biopsy would be challenging f or both nodules given their size, location and patient body habitus. 4. Cardiomegaly. 5. 3 mm nonobstructing right renal stone..
--- NOTE | ~2023-06-14 | XR_ITS ---
Clinical Indication: Pulmonary hypertension PA and lateral views of the chest: Comparison: 06/14/2023 Findings: There is minimal central congestive change, without evidence of focal consolidation or pleu ral effusion. Cardiomediastinal silhouette is stable, enlarged. Bones and soft tissues are unremarka ble. Impression: Minimal central congestive change. Stable cardiomegaly. Reviewed, dictated and finalized at location . Impression: Minimal central congestive change. Stable cardiomegaly.
--- NOTE | ~2023-06-14 | XR_ITS ---
XR chest 1V portable 06/14/2023 11:51 Indication: Weakness. Increased oxygen demand. Procedure: AP portable chest Comparison: Comparison to multiple prior studies sequentially, with oldest reviewed study dated 05/06. Findings: Cardiomegaly with mild interstitial edema. No pleural effusion or pneumothorax. No acute os seous abnormality. Impression: 1: Cardiomegaly with mild interstitial edema. Reviewed, dictated and finalized at location B. Impression: 1: Cardiomegaly with mild interstitial edema.
--- NOTE | 2023-06-14 11:12 | ECG_ITS ---
SEE SCANNED COPY FOR CONFIRMED REPORT MTDD
[2023-06-14 11:38] LABS: Alveolar/Arterial O2 Gradient 76.7 mmHg; Base Excess ABG 2.5 mEq/l (+/-2.0); Carboxyhemoglobin 0.8 % THb (0-2.0); Device NASAL CANNULA; Fractional Inspired Oxygen 28 %; HCO3 ABG 28.8 mEq/l (22.0-26.0); Methemoglobin ABG 0.1 %THb (0-1.5); Oxygen Content ABG 10.5 %vol (16.0-22.0); Oxygen Saturation ABG 88.5 % (95.0-100.0); PCO2 ABG 54.4 mmHg (35.0-45.0); PO2 ABG 58.8 mmHg (80.0-100.0); Reduced Hemoglobin 10.1 %THb (0-5.0); Site Drawn LEFT BRACHIAL; Total Hemoglobin 8.3 g/dL (12.0-18.0); pH ABG 7.341 (7.350-7.450)
[2023-06-14 12:45] LABS: Basophils Percent Auto 0.7 % (0.2-1.2); Eosinophils Absolute Auto 0.1 K/mm3 (0-0.3); Eosinophils Percent Auto 1.6 % (0-4.4); Hematocrit 25.8 % (37.0-47.0); Hemoglobin 7.5 g/dL (12.0-15.0); Immature Granulocyte Absolute 0.01 K/mm3 (0.00-0.031); Immature Granulocyte Percent A 0.2 % (0-0.5); Lymphocytes Absolute Auto 0.19 K/mm3 (0.9-3.2); Lymphocytes Percent Auto 4.3 % (18.3-44.2); Mean Corpuscular HGB Conc 29.1 g/dl (32-36); Mean Corpuscular Hemoglobin 30.1 pg (26-34); Mean Corpuscular Volume 103.6 fl (80-100); Mean Platelet Volume 10.7 fl (7.4-10.4); Monocytes Absolute Auto 0.6 K/mm3 (0.1-0.6); Monocytes Percent Auto 13.8 % (2.6-8.5); Neutrophils Absolute Auto 3.5 K/mm3 (1.3-6.7); Neutrophils Percent Auto 79.4 % (45.5-73.1); Platelet Count Result 165 k/mm3 (150-375); Red Blood Count 2.49 M/mm3 (4.2-5.4); Red Cell Distribution Width 15.3 % (11.5-14.5); White Blood Count 4.4 K/mm3 (4.5-10.0)
[2023-06-14 12:56] LABS: Albumin Level 3.6 g/dL (3.5-5.1); Alkaline Phosphatase 130 U/L (38-126); Anion Gap 2 mmol/L (4-12); Aspartate Amino Transferase 15 U/L (14-36); Bilirubin,Total 0.4 mg/dL (0.2-1.3); Blood Urea Nitrogen 19 mg/dL (7-17); Calcium 8.9 mg/dL (8.4-10.2); Carbon Dioxide 31 mmol/L (22-30); Chloride 99 mmol/L (98-107); Estimated CRCL calculation 44 ml/min; Estimated Glomerular Filt Rate 32; Glucose 123 mg/dL (65-110); Potassium 4.8 mmol/L (3.4-5.0); Sodium 132 mmol/L (137-145)
[2023-06-14 13:04] LABS: NT Pro B Type Natriuretic Pept 6900 pg/mL (19.9-100)
--- NOTE | 2023-06-14 13:07 | ED.GENADULT ---
HPI - General Adult General Chief complaint: Weakness Stated complaint: short of breath Time Seen by Provider: 06/14/23 11:00 History of Present Illness HPI narrative: Patient is a 72-year-old female who presents ER with weakness and shortness of breath. She also has increased O2 requirement from 2 L to 4 L. No fevers or chills or sweats. Patient has chronic lower extremity edema. No chest pain or chest pressure. Related Data Home Medications Medication Instructions Recorded Confirmed atorvastatin 80 mg tablet 80 mg PO QAM 12/10/19 06/14/23 carbidopa 25 mg-levodopa 100 mg 3 tablet PO TID 12/10/19 06/14/23 tablet fluoxetine 40 mg capsule 40 mg PO BID 12/10/19 06/14/23 oxcarbazepine 300 mg tablet 300 mg PO BID 12/10/19 06/14/23 allopurinol 100 mg tablet 100 mg PO DAILY 12/12/21 06/14/23 doxepin 25 mg capsule 25 mg PO BID 12/12/21 06/14/23 empagliflozin 10 mg tablet 10 mg PO DAILY 12/12/21 06/14/23 (Jardiance) ipratropium 0.5 mg-albuterol 3 mg 3 ml inhalation Q6H 12/12/21 06/14/23 (2.5 mg base)/3 mL nebulization soln prazosin 5 mg capsule 5 mg PO HS 12/12/21 06/14/23 ropinirole 0.5 mg tablet 0.5 mg PO HS 12/12/21 06/14/23 primidone 50 mg tablet 50 mg PO BID 12/21/21 06/14/23 acetaminophen 650 mg tablet 650 mg PO Q6H PRN Pain (Scale 12/23/21 06/14/23 Score 1-3) albuterol sulfate 90 mcg/actuation 2 puff inhalation QID PRN 12/23/21 06/14/23 aerosol inhaler Shortness Of Breath Or Wheezing quetiapine 25 mg tablet 25 mg PO HS 12/23/21 06/14/23 gabapentin 100 mg PO TID 12/29/21 06/14/23 bumetanide 1 mg tablet 2 mg PO DAILY 02/15/22 06/14/23 fluvoxamine 100 mg tablet 100 mg PO QHS 02/15/22 06/14/23 amiodarone 200 mg PO DAILY 08/28/22 06/14/23 apixaban 5 mg tablet (Eliquis) 2.5 mg PO Q12HR 08/28/22 06/14/23 pantoprazole 40 mg tablet,delayed 40 mg PO QAM 08/28/22 06/14/23 release Breo Ellipta See Rx Instructions .Route .COMPLEX 09/02/22 06/14/23 alprazolam 1 mg tablet 1 mg PO TID PRN Anxiety 06/14/23 06/14/23 Allergies Allergy/AdvReac Type Severity Reaction Status Date / Time iodine Allergy Severe Hives Verified 05/06/22 12:41 latex Allergy Severe Hives Verified 05/06/22 12:41 Contrast Media Allergy Mild Hives Uncoded 05/06/22 12:41 Review of Systems Review of Systems: All systems reviewed & are unremarkable except as noted in HPI and below Constitutional: Constitutional: Reports no additional constitutional complaints ENT: Reports system reviewed and no additional complaints, except as documented Cardiovascular: Cardiovascular: Reports no additional cardiovascular complaints Respiratory: Respiratory: Denies chest congestion, Denies cough, Reports dyspnea and Denies wheezing Gastrointestinal: Gastrointestinal: Reports no additional gastrointestinal complaints Genitourinary: Genitourinary: Reports no additional female genitourinary complaints Musculoskeletal: Musculoskeletal: Reports no additional musculoskeletal complaints [facility] Past Medical History Medical History Acute hyperkalemia Anxiety BMI greater than 40 Chronic anemia Chronic kidney disease, stage 3 Baseline creatinine ranges between 1.2 and 1.50. Chronic obstructive pulmonary disease Depression Diabetic polyneuropathy Gastroesophageal reflux disease GI bleed (01/2010) Secondary to peptic ulcer. Heart failure with preserved ejection fraction Hyperlipidemia Hypertension Hypothyroidism Junctional rhythm Kidney stones Neuropathy Obstructive sleep apnea Patient does not use PAP therapy at nighttime. Osteoarthritis Parkinson disease Restless leg syndrome Type 2 diabetes mellitus Weakness of left lower extremity Surgical History Surgical History History of bilateral knee arthroplasty History of hysterectomy History of sinus surgery Family History Family History (Reviewed 06/14/23 @ 14:32 by Jericho Badillo APRN
[2023-06-14 13:13] LABS: Hypochromasia 2+; Platelet Estimate Adequate (Adequate); Schistocytes None Seen
[2023-06-14 13:14] LABS: Alanine Aminotransferase < 6 U/L (6-35)
[2023-06-14 13:21] LABS: Influenza A QL RT-PCR Negative (Negative); Influenza B QL RT-PCR Negative (Negative); RSV RNA, RT-PCR Negative (Negative); SARS-CoV-2 RNA PCR Negative (Negative)
[2023-06-14] MEDS: FUROSEMIDE INJ 40 MG/4 ML VIAL IV PUSH ×2 (14:04→20:30)
[2023-06-14 14:12] LABS: Appearance Urine Clear (Clear); Bacteria Urine None Seen /hpf; Bilirubin Urine Negative (Negative); Blood Urine Negative (Negative); Color Urine Yellow (Yellow); Glucose Urine UA 2+ mg/dL (Negative); Ketones Urine Negative (Negative); Leukocyte Esterase Ur 1+ LEU/UL (Negative); Nitrate Urine Negative (Negative); Protein Urine Trace mg/dL (Negative); RBC Urine 0-2 /hpf (0-2); Specific Grav Ur 1.015 (1.001-1.035); Squamous Epithelial Cell Urine Occasional /hpf (Few); Urobilinogen Urine 0.2 mg/dL (<2.0); WBC Urine 51-100 /hpf (0-3); pH Urine 5.5 (5.0-9.0)
[2023-06-14 14:14] LABS: Add Urine Microscopic? YES
--- NOTE | 2023-06-14 14:20 | PM.IMHP ---
H&P: HPI History of Present Illness Date/Time: 06/14/23 14:20 Chief Complaint: dyspnea, increased oxygen demand Narrative: This is a 72-year-old female patient with extensive past medical history as listed below presented to the emergency department via EMS from [facility] with complaints of weakness and shortness of breath. Patient is at [facility] for rehab after prior hospitalization. Patient reports that over the last couple of days she has been feeling more short of breath and was self titrating her oxygen from ordered setting at 2 L up to 4 liters/minute. Patient reports that the therapy staff kept turning her back down to 2 because that is the prescribed amount of oxygen. Patient states that she has become more short of breath more weak unable to participate with therapy. She is also started to have a cough and increased anxiety. In the emergency department patient was noted to require more than baseline 2 liters/minute of oxygen, elevated BNP 6900, chest x-ray with cardiomegaly and pulmonary edema and CBC with depressed white blood cell count of 4.4 and stable anemia with hemoglobin of 7.5. ABG obtained with slightly elevated pCO2 of 54.4 and low PO2 of 58.8 on 2 liters/minute. Other laboratory findings include chronic kidney disease and chronic hyponatremia. Blood sugar was reasonable but hemoglobin A1c is elevated at 9.3 which is improved from 12 one month ago. 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 Patient also reports that she is afraid she might be dying. Review of Systems Review of Systems: All systems reviewed & are unremarkable except as noted in HPI and below [facility] Past Medical History Medical History Acute hyperkalemia Anxiety BMI greater than 40 Chronic anemia Chronic kidney disease, stage 3 Baseline creatinine ranges between 1.2 and 1.50. Chronic obstructive pulmonary disease Depression Diabetic polyneuropathy Gastroesophageal reflux disease GI bleed (01/2010) Secondary to peptic ulcer. Heart failure with preserved ejection fraction Hyperlipidemia Hypertension Hypothyroidism Junctional rhythm Kidney stones Neuropathy Obstructive sleep apnea Patient does not use PAP therapy at nighttime. Osteoarthritis Parkinson disease Restless leg syndrome Type 2 diabetes mellitus Weakness of left lower extremity Surgical History Surgical History History of bilateral knee arthroplasty History of hysterectomy History of sinus surgery Family History Family History Grandparent Diabetes mellitus Acute myocardial infarction Father Acute myocardial infarction Mother Acute myocardial infarction Social History Social History Social History: Surrogate decision maker: Fly Rondon, . Code status: Full code. Smoking packs per day: 1 Smoking cigarettes per day: 20.0 Years smoked: 40 Smoking pack-years: 40.00 Smoking status: Never smoker Second hand tobacco smoke exposure: No Alcohol intake: never Substance use: never Substance use type: does not use Do You Feel Safe in your Home?: Yes Lack of Transportation: No Lack of Food: Never True Current Housing: I Have Housing Concerned About Future Housing: No Difficulty Paying Gas/Electric Bills: No Difficulty Paying for Meds: No Currently Unemployed: No Education: High School Diploma/GED Difficulty w/ Childcare or Family Care: No Additional living arrangements comments: Resides in [place] with her . Occupation/Education: retired Sp
--- NOTE | 2023-06-14 15:58 | ADMGEN ---
This patient, Jenni Rondon, was admitted to Medical Room 252-01. Patient/family oriented to hospital policies and general routines including ID bracelet, bed and alarms, visiting hours, pain management, procedures, bathroom and other care routines, personal items, smoking policy, room service/diet, and visiting hours. Information on how to activate the Rapid Response Team has been discussed. Patient/Family are encouraged to report perceived risks to care and to ask questions if they do not understand what they are told or what they should do.
[2023-06-14 16:48] LABS: Glucose Point of Care 115 mg/dl (65-105)
[2023-06-14] MEDS: hydrALAZINE HCL 25 MG TABLET PO (18:05)
[2023-06-14] MEDS: HYDROcodone/acetaminophen (*CRX) 5-325 MG TABLET 1 TAB PO (18:05)
[2023-06-14] MEDS: CARBIDOPA/LEVODOPA 25/100 MG TABLET 3 TABLET PO (18:05)
[2023-06-14] MEDS: BUMETANIDE INJ 1 MG/4 ML VIAL 2 MG IV PUSH (18:05)
[2023-06-14] MEDS: GABAPENTIN 100 MG CAPSULE PO (18:05)
[2023-06-14 19:42] LABS: Hemoglobin A1C 9.3 % (<5.7)
[2023-06-14] MEDS: IPRATROPIUM 0.5 MG/ALBUTEROL SULFATE 2.5 MG AMPUL.NEB 3 ML INHALATION (20:12)
[2023-06-14] MEDS: PRIMIDONE 50 MG TABLET PO (20:30)
[2023-06-14] MEDS: PRAZOSIN HCL 5 MG CAPSULE PO (20:30)
[2023-06-14] MEDS: APIXABAN 2.5 MG TABLET PO (20:30)
[2023-06-14] MEDS: OXcarbazepine 300 MG TABLET PO (20:30)
[2023-06-14] MEDS: QUEtiapine FUMARATE 25 MG TABLET PO (20:30)
[2023-06-14] MEDS: FLUoxetine HCL 20 MG CAPSULE 40 MG PO (20:30)
[2023-06-14] MEDS: rOPINIRole HCL 0.5 MG TABLET PO (20:30)
[2023-06-14] MEDS: DOXEPIN HCL 25 MG CAPSULE PO (20:30)
[2023-06-14 21:14] LABS: Glucose Point of Care 131 mg/dl (65-105)
[2023-06-15] VITALS (27 sets, daily range): BP systolic 124–138; BP diastolic 58–66; PULSE 82–98; RESP 16–24; TEMP 36.2–36.7; O2SAT 80–97
--- NOTE | 2023-06-15 | ECHO_ITS ---
Patient Info Name: Jenni Rondon Age: 72 years : 1950 Gender: Female Ht: 66 in Wt: 350 lbs BSA: 2.82 m2 HR: 95 bpm BP: 138 / 95 mmHg Heart Rhythm: Sinus Rhythm Technical Quality: Fair Exam Date: 06/15/2023 10:53 AM Exam Location: Echo Lab Patient Status: Inpatient Admit Date: 06/14/2023 Staff Ordering Physician: Jericho Badillo APRN Beater Worker Helper: Nishant Alvarado RDCS Attending Provider: Cole Madden MD Referring Physician: Justino KANG; Exam Type: CA echo dop color flow w con Study Info Indications R06.00 - Dyspnea, unspecified Complete two-dimensional, color flow and Doppler transthoracic echocardiogram is performed with contrast to opacify the left ventricle and to improve the deliniation of the left ventricle endocardial borders. Summary 1. Left ventricular chamber dimension is normal. 2. Left ventricular systolic function is normal, estimated at 60-65%. 3. There is mildly increased left ventricular wall thickness. 4. The left ventricular diastolic function is normal. 5. Right atrial chamber dimension is mildly enlarged. 6. Left atrial chamber dimension is moderately enlarged. 7. There is mild mitral valve regurgitation. 8. There is moderate tricuspid valve regurgitation. 9. Moderate pulmonary hypertension, estimated pulmonary arterial systolic pressure is 50-55mmHg. 10. There is mild pulmonic regurgitation. 11. There is small pericardial effusion. Left Ventricle Left ventricular chamber dimension is normal. Left ventricular systolic function is normal, estimated at 60-65%. There is mildly increased left ventricular wall thickness. The left ventricular diastolic function is normal. Right Ventricle Right ventricular chamber dimension is normal. Right ventricular systolic function is normal. Left Atria Left atrial chamber dimension is moderately enlarged. Right Atria Right atrial chamber dimension is mildly enlarged. Atrial Septum Intact interatrial septum visualized by color flow imaging. Aortic Valve The aortic valve is trileaflet. There is mild aortic valve sclerosis. There is no aortic valve stenosis. There is trace aortic valve regurgitation. Pulmonic Valve The pulmonic valve is normal. There is no pulmonic valve stenosis. There is mild pulmonic regurgitation. Mitral Valve The mitral valve has thickened leaflets. There is no mitral valve stenosis. There is mild mitral valve regurgitation. Tricuspid Valve The tricuspid valve leaflets are normal. There is no significant tricuspid valve stenosis. There is moderate tricuspid valve regurgitation. Moderate pulmonary hypertension, estimated pulmonary arterial systolic pressure is 50-55mmHg. Pericardium/Pleural The pericardium appears normal. There is small pericardial effusion. Inferior Vena Cava Dilated inferior vena cava with <50% collapse upon inspiration consistent with elevated right atrial pressure, 10 mmHg. Aorta The aortic root size at the sinus of Valsalva is normal. Left Ventricular Outflow Tract Name Value Normal LVOT 2D LVOT Diameter 1.94 cm LVOT Doppler LVOT Peak Gradient 5 mmHg LVOT Mean Gradient 2 mmHg LVOT VTI
[2023-06-15] MEDS: IPRATROPIUM 0.5 MG/ALBUTEROL SULFATE 2.5 MG AMPUL.NEB 3 ML INHALATION ×6 (02:28→23:35)
[2023-06-15] MEDS: WATER FOR IRRIGATION, STERILE 500 ML BOTTLE (03:56)
[2023-06-15 05:26] LABS: Basophils Percent Auto 0.9 % (0.2-1.2); Eosinophils Percent Auto 0.9 % (0-4.4); Hematocrit 25.4 % (37.0-47.0); Hemoglobin 7.3 g/dL (12.0-15.0); Immature Granulocyte Absolute 0.02 K/mm3 (0.00-0.031); Immature Granulocyte Percent A 0.5 % (0-0.5); Lymphocytes Absolute Auto 0.34 K/mm3 (0.9-3.2); Lymphocytes Percent Auto 7.9 % (18.3-44.2); Mean Corpuscular HGB Conc 28.7 g/dl (32-36); Mean Corpuscular Hemoglobin 29.9 pg (26-34); Mean Corpuscular Volume 104.1 fl (80-100); Mean Platelet Volume 11.4 fl (7.4-10.4); Monocytes Absolute Auto 0.8 K/mm3 (0.1-0.6); Monocytes Percent Auto 17.7 % (2.6-8.5); Neutrophils Absolute Auto 3.1 K/mm3 (1.3-6.7); Neutrophils Percent Auto 72.1 % (45.5-73.1); Platelet Count Result 171 k/mm3 (150-375); Red Blood Count 2.44 M/mm3 (4.2-5.4); Red Cell Distribution Width 15.3 % (11.5-14.5); White Blood Count 4.3 K/mm3 (4.5-10.0)
[2023-06-15 05:44] LABS: Anisocytosis 1+; Hypochromasia 2+; Platelet Estimate Adequate (Adequate); Schistocytes None Seen
[2023-06-15 05:45] LABS: Albumin Level 3.5 g/dL (3.5-5.1); Alkaline Phosphatase 125 U/L (38-126); Anion Gap 3 mmol/L (4-12); Aspartate Amino Transferase 16 U/L (14-36); Bilirubin,Total 0.4 mg/dL (0.2-1.3); Blood Urea Nitrogen 20 mg/dL (7-17); Calcium 8.5 mg/dL (8.4-10.2); Carbon Dioxide 33 mmol/L (22-30); Chloride 97 mmol/L (98-107); Estimated CRCL calculation 40 ml/min; Estimated Glomerular Filt Rate 28; Glucose 115 mg/dL (65-110); Magnesium 1.9 mg/dL (1.6-2.3); Potassium 4.1 mmol/L (3.4-5.0); Sodium 133 mmol/L (137-145)
[2023-06-15 06:13] LABS: Alanine Aminotransferase < 6 U/L (6-35)
[2023-06-15 08:13] LABS: Glucose Point of Care 124 mg/dl (65-105)
[2023-06-15] MEDS: allopurinoL 100 MG TABLET PO (08:30)
[2023-06-15] MEDS: ATORVASTATIN 40 MG TABLET 80 MG PO (08:30)
[2023-06-15] MEDS: OXcarbazepine 300 MG TABLET PO ×2 (08:30→21:00)
[2023-06-15] MEDS: APIXABAN 2.5 MG TABLET PO ×2 (08:30→21:00)
[2023-06-15] MEDS: EMPAGLIFLOZIN 10 MG TABLET PO (08:30)
[2023-06-15] MEDS: PANTOPRAZOLE 40 MG TABLET PO (08:30)
[2023-06-15] MEDS: GABAPENTIN 100 MG CAPSULE PO ×3 (08:30→17:02)
[2023-06-15] MEDS: FLUoxetine HCL 20 MG CAPSULE 40 MG PO ×2 (08:30→21:00)
[2023-06-15] MEDS: DOXEPIN HCL 25 MG CAPSULE PO ×2 (08:30→21:00)
[2023-06-15] MEDS: PRIMIDONE 50 MG TABLET PO ×2 (08:31→21:00)
[2023-06-15] MEDS: AMIODARONE HCL 200 MG TABLET BY MOUTH (08:31)
[2023-06-15] MEDS: CARBIDOPA/LEVODOPA 25/100 MG TABLET 3 TABLET PO ×3 (08:31→17:02)
[2023-06-15] MEDS: BUMETANIDE INJ 1 MG/4 ML VIAL 2 MG IV PUSH ×2 (08:31→17:03)
[2023-06-15] MEDS: FUROSEMIDE INJ 40 MG/4 ML VIAL IV PUSH (08:31)
[2023-06-15] MEDS: LOSARTAN POTASSIUM 12.5 MG TABLET PO (08:33)
[2023-06-15] MEDS: hydrALAZINE HCL 25 MG TABLET PO ×3 (08:33→17:02)
--- NOTE | 2023-06-15 08:41 | PM.IMPN ---
Progress Note: A&P Assessment and Plan (1) Pulmonary edema cardiac cause: Code(s): I50.1 - Left ventricular failure, unspecified Status: Acute Assessment and Plan: -prior echocardiogram in 2021 shows EF 60-65% with grade 1 diastolic dysfunction -chest x-ray with significant cardiomegaly and pulmonary edema suggest likely worsened function -ordered echocardiogram -increase Bumex 2 mg oral once daily to 2 mg IV b.i.d. for now, watch chronic renal function/chronic hyponatremia/hypokalemia -De La Cruz catheter in place in the emergency department, continued for now with increased diuresis 06/14: - BNP 6900 on admission - 159 kg today - UOP 1750ml with net - 860 - echo pending completion - 1500 ml fluid restriction - education on CHF low sodium diet and fluid restriction (2) Acute on chronic respiratory failure with hypoxia and hypercapnia: Code(s): J96.21 - Acute and chronic respiratory failure with hypoxia; J96.22 - Acute and chronic respiratory failure with hypercapnia Status: Acute Assessment and Plan: -wears 2-3 L oxygen at all times but has had to turn it up the last several days -consider liberalizing oxygen self-titration range upon discharge -COPD exacerbation vs CHF exacerbation vs superimposed pneumonia 06/14: -currently on 5 L NC -productive cough with green sputum and COPD hx -switched antibiotic therapy to cefepime for possible HAP given recent hospitalization and now with SOB, congestion, coarse breath sounds and green sputum production. -started steroids q 8 hours given wheezing with COPD exacerbation -duo nebs q 4 hours scheduled -sputum culture ordered -nasal MRSA negative -IS and PEP therapy -Guaifenesin BID -add procalcitonin (3) Anemia: Qualifiers: Anemia type: due to chronic kidney disease Chronic kidney disease stage: stage 4 (severe) Qualified Code(s): N18.4 - Chronic kidney disease, stage 4 (severe); D63.1 - Anemia in chronic kidney disease Code(s): D64.9 - Anemia, unspecified Status: Acute Assessment and Plan: Hemoglobin 7.3, no acute signs of bleeding -patient was just here in May and received anemia workup -found to be deficient in B12 and was started on therapy -continue B12 now -monitor H&H -transfuse for hemoglobin less than 7 grams/deciliter (4) Chronic kidney disease due to diabetes mellitus: Code(s): E11.22 - Type 2 diabetes mellitus with diabetic chronic kidney disease Status: Chronic Assessment and Plan: Patient appears to be at baseline renal function on admission 06/14: - Cr 1.80 - daily monitoring while aggressively diuresing (5) Parkinson disease: Code(s): G20 - Parkinson's disease Status: Chronic Assessment and Plan: -chronic, continue home medications (6) Atrial fibrillation: Code(s): I48.91 - Unspecified atrial fibrillation Status: Chronic Assessment and Plan: -heart rate controlled, continue Eliquis, continue amiodarone 06/14: -Tele NSR in the (7) Hyponatremia: Code(s): E87.1 - Hypo-osmolality and hyponatremia Status: Chronic Assessment and Plan: -Chronic hyponatremia sodium 132 on admission -trend with daily labs and adjust fluid restriction/diuresis as needed 06/14: -Labs reviewed. Na 133 -on 1500 ml fluid restriction (8) Obstructive sleep apnea: Code(s): G47.33 - Obstructive sleep apnea (adult) (pediatric) Status: Chronic Assessment and Plan: -ordered auto PAP (9) Cutaneous abscess of perineum: Code(s): L02.215 - Cutaneous abscess of perineum Status: Acute Assessment and Plan: Status post complex I and D of left perineal abscess with surgery on 05-23 -area was assessed and there are 2 puncture sites from previous Hilda drains. Areas are closed with no drainage present. There is some
[2023-06-15] MEDS: ALPRAZolam (*CRX) 0.5 MG TABLET 1 MG PO (08:43)
[2023-06-15] MEDS: guaiFENesin 12 HR 600 MG TABCR PO ×2 (09:05→21:00)
[2023-06-15 12:05] LABS: Glucose Point of Care 140 mg/dl (65-105)
[2023-06-15] MEDS: HYDROcodone/acetaminophen (*CRX) 5-325 MG TABLET 1 TAB PO (13:13)
--- NOTE | 2023-06-15 14:18 | IVDEFINITY ---
Prior to administration of IV Definity the patient was educated on the risks and benefits of the imaging enhancing agent including potential adverse side effects. The patient verbalized understanding. Allergies were verified. No exclusion criteria were identified and at least one of the following inclusion criteria were met: 1) physician request, 2) patient technically difficult to image (per the [place] [employer]chocardi[employer] guidelines of two or more segments not discernable within the apical view), or 3) questionable left ventricular function. ?
[2023-06-15] MEDS: PERFLUTREN LIPID MICROSPHERES 1.5 ML VIAL DILUTED TO 10 ML TOTAL VOLUME IV PUSH (14:23)
[2023-06-15] MEDS: CEFEPIME 2 GM/NS 50 ML 2 GM/50 ML BAG IVPB (14:48)
[2023-06-15] MEDS: methylPREDNISolone SOD SUCC 125 MG VIAL 80 MG IV PUSH ×2 (14:48→23:45)
[2023-06-15 16:31] LABS: Alveolar/Arterial O2 Gradient 150.5 mmHg; Base Excess ABG 4.5 mEq/l (+/-2.0); Fractional Inspired Oxygen 40 %; HCO3 ABG 30.7 mEq/l (22.0-26.0); Oxygen Content ABG 11.8 %vol (16.0-22.0); Oxygen Saturation ABG 93.4 % (95.0-100.0); Oxyhemoglobin 92.2 % THb (90.0-100.0); PCO2 ABG 55.3 mmHg (35.0-45.0); PO2 ABG 71.1 mmHg (80.0-100.0); PO2 FiO2 Ratio Arterial Blood 1.78 %; pH ABG 7.362 (7.350-7.450)
[2023-06-15 16:32] LABS: Device NASAL CANNULA; Modified Allen's Test Pass; Site Drawn RIGHT BRACHIAL
[2023-06-15 17:09] LABS: Glucose Point of Care 155 mg/dl (65-105)
--- NOTE | 2023-06-15 17:35 | PC.NURSE ---
asked respiratory therapy to bring IS. there are none in respiratory closet
[2023-06-15] MEDS: PRAZOSIN HCL 5 MG CAPSULE PO (21:00)
[2023-06-15] MEDS: QUEtiapine FUMARATE 25 MG TABLET PO (21:00)
[2023-06-15] MEDS: rOPINIRole HCL 0.5 MG TABLET PO (21:00)
[2023-06-15 21:31] LABS: Glucose Point of Care 255 mg/dl (65-105)
[2023-06-16] VITALS (28 sets, daily range): BP systolic 119–151; BP diastolic 51–78; PULSE 60–106; RESP 14–24; TEMP 36.6–37.1; O2SAT 92–96
[2023-06-16] MEDS: CEFEPIME 2 GM/NS 50 ML 2 GM/50 ML BAG IVPB ×2 (03:30→14:57)
[2023-06-16] MEDS: IPRATROPIUM 0.5 MG/ALBUTEROL SULFATE 2.5 MG AMPUL.NEB 3 ML INHALATION ×4 (03:45→20:49)
[2023-06-16 04:24] LABS: Basophils Percent Auto 0.4 % (0.2-1.2); Hematocrit 27.2 % (37.0-47.0); Hemoglobin 8.2 g/dL (12.0-15.0); Immature Granulocyte Absolute 0.03 K/mm3 (0.00-0.031); Immature Granulocyte Percent A 1.1 % (0-0.5); Lymphocytes Percent Auto 3.6 % (18.3-44.2); Mean Corpuscular HGB Conc 30.1 g/dl (32-36); Mean Corpuscular Hemoglobin 30.6 pg (26-34); Mean Corpuscular Volume 101.5 fl (80-100); Mean Platelet Volume 11.3 fl (7.4-10.4); Monocytes Absolute Auto 0.1 K/mm3 (0.1-0.6); Monocytes Percent Auto 1.8 % (2.6-8.5); Neutrophils Absolute Auto 2.6 K/mm3 (1.3-6.7); Neutrophils Percent Auto 93.1 % (45.5-73.1); Platelet Count Result 157 k/mm3 (150-375); Red Blood Count 2.68 M/mm3 (4.2-5.4); Red Cell Distribution Width 15.2 % (11.5-14.5); White Blood Count 2.8 K/mm3 (4.5-10.0)
[2023-06-16 04:40] LABS: Alanine Aminotransferase 6 U/L (6-35); Albumin Level 4.1 g/dL (3.5-5.1); Alkaline Phosphatase 128 U/L (38-126); Anion Gap 8 mmol/L (4-12); Aspartate Amino Transferase 16 U/L (14-36); Bilirubin,Total 0.5 mg/dL (0.2-1.3); Blood Urea Nitrogen 25 mg/dL (7-17); Calcium 8.8 mg/dL (8.4-10.2); Carbon Dioxide 31 mmol/L (22-30); Chloride 97 mmol/L (98-107); Estimated CRCL calculation 42 ml/min; Estimated Glomerular Filt Rate 29; Glucose 199 mg/dL (65-110); Magnesium 1.8 mg/dL (1.6-2.3); Potassium 4.4 mmol/L (3.4-5.0); Sodium 136 mmol/L (137-145)
[2023-06-16 04:51] LABS: Anisocytosis 1+; Platelet Estimate Adequate (Adequate); Schistocytes None Seen
[2023-06-16 04:52] LABS: Hypochromasia 1+
[2023-06-16 04:53] LABS: Procalcitonin 0.1 ng/mL
[2023-06-16] MEDS: methylPREDNISolone SOD SUCC 125 MG VIAL 80 MG IV PUSH (05:38)
--- NOTE | 2023-06-16 07:31 | P.PNIM_ITS ---
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 (4) Parkinson disease: Code(s): G20 - Parkinson's disease Status: Chronic (5) Atrial fibrillation: Code(s): I48.91 - Unspecified atrial fibrillation Status: Chronic (6) Hyponatremia: Code(s): E87.1 - Hypo-osmolality and hyponatremia Status: Chronic (7) Obstructive sleep apnea: Code(s): G47.33 - Obstructive sleep apnea (adult) (pediatric) Status: Chronic (8) Cutaneous abscess of perineum: Code(s): L02.215 - Cutaneous abscess of perineum Status: Acute (9) Pulmonary hypertension: Code(s): I27.20 - Pulmonary hypertension, unspecified Status: Acute Plan Acute on chronic respiratory failure with hypoxia and hypercapnia secondary to COPD exacerbation vs CHF exacerbation vs superimposed pneumonia * wears 2-3 L oxygen at all times but has had to turn it up the last several days * Patient needs education on CO2 retention 06/14: * currently on 5 L NC * productive cough with green sputum and COPD hx * switched antibiotic therapy to cefepime for possible HAP given recent hospitalization and now with SOB, congestion, coarse breath sounds and green sputum production. * started steroids q 8 hours given wheezing with COPD exacerbation * duo nebs q 4 hours scheduled * sputum culture ordered * IS and PEP therapy * Guaifenesin BID * add procalcitonin * Incentive spirometer 06/15: * Wean Oxygen to maintain 92% SPO2 (CO2 retention) * consulted economic geographer for CPAP/Trilogy/NIV * added Dulera b.i.d. * CT chest pending Pulmonary hypertension * prior echocardiogram in 2021 shows LVEF 60-65% with grade 1 diastolic dysfunction * chest x-ray with significant cardiomegaly and pulmonary edema suggest likely worsened function * ordered echocardiogram-increase Bumex 2 mg oral once daily to 2 mg IV b.i.d. for now, watch chronic renal function/chronic hyponatremia/hypokalemia 06/14: * BNP 6900 POA * 159kg today * UOP 1750ml with net - 860 * echo pending completion * 1500 ml fluid restriction * education on CHF low sodium diet and fluid restriction 06/15 * Echo shows LVEF 60-65 with moderate Pumonary HTN, normal diatsolic and sytolic function * Continue with IV Bumex * Wean Oxygen to maintain 92% SPO2 * De La Cruz for I&O's Anemia: * Hemoglobin 7.3, no acute signs of bleeding * found to be deficient in B12 and was started on therapy * monitor H&H * transfuse PRBC if Hgb <7.0 * Follow B12/anemia Outpatient 06/15: * Hgb 8.4 stable Diabetes * glucose running around 200's likely secondary to steroid use decreased * Accu-Cheks a.c. HS * sliding scale insulin * Holding Jardiance * A1C 9.3 today down from 12 * Will likely need something at discharge and follow with PCP for follow-up * lipid panel pending * Diabetic diet * consult to
--- NOTE | 2023-06-16 07:31 | PM.IMPN ---
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 (4) Parkinson disease: Code(s): G20 - Parkinson's disease Status: Chronic (5) Atrial fibrillation: Code(s): I48.91 - Unspecified atrial fibrillation Status: Chronic (6) Hyponatremia: Code(s): E87.1 - Hypo-osmolality and hyponatremia Status: Chronic (7) Obstructive sleep apnea: Code(s): G47.33 - Obstructive sleep apnea (adult) (pediatric) Status: Chronic (8) Cutaneous abscess of perineum: Code(s): L02.215 - Cutaneous abscess of perineum Status: Acute (9) Pulmonary hypertension: Code(s): I27.20 - Pulmonary hypertension, unspecified Status: Acute Plan Acute on chronic respiratory failure with hypoxia and hypercapnia secondary to COPD exacerbation vs CHF exacerbation vs superimposed pneumonia wears 2-3 L oxygen at all times but has had to turn it up the last several days Patient needs education on CO2 retention 06/14: currently on 5 L NC productive cough with green sputum and COPD hx switched antibiotic therapy to cefepime for possible HAP given recent hospitalization and now with SOB, congestion, coarse breath sounds and green sputum production. started steroids q 8 hours given wheezing with COPD exacerbation duo nebs q 4 hours scheduled sputum culture ordered IS and PEP therapy Guaifenesin BID add procalcitonin Incentive spirometer 06/15: Wean Oxygen to maintain 92% SPO2 (CO2 retention) consulted pinball machine repairer for CPAP/Trilogy/NIV added Dulera b.i.d. CT chest pending Pulmonary hypertension prior echocardiogram in 2021 shows LVEF 60-65% with grade 1 diastolic dysfunction chest x-ray with significant cardiomegaly and pulmonary edema suggest likely worsened function ordered echocardiogram-increase Bumex 2 mg oral once daily to 2 mg IV b.i.d. for now, watch chronic renal function/chronic hyponatremia/hypokalemia 06/14: BNP 6900 POA 159kg today UOP 1750ml with net - 860 echo pending completion 1500 ml fluid restriction education on CHF low sodium diet and fluid restriction 06/15 Echo shows LVEF 60-65 with moderate Pumonary HTN, normal diatsolic and sytolic function Continue with IV Bumex Wean Oxygen to maintain 92% SPO2 De La Cruz for I&O's Anemia: Hemoglobin 7.3, no acute signs of bleeding found to be deficient in B12 and was started on therapy monitor H&H transfuse PRBC if Hgb <7.0 Follow B12/anemia Outpatient 06/15: Hgb 8.4 stable Diabetes glucose running around 200's likely secondary to steroid use decreased Accu-Cheks a.c. HS sliding scale insulin Holding Jardiance A1C 9.3 today down from 12 Will likely need something at discharge and follow with PCP for follow-up lipid panel pending Diabetic diet consult to dietitian encourage lifestyle modifications and weight loss Optimize Kyle inhibitors and statins. Watch for hypoglycemia/hypoglycemic protocol ordered Chronic renal failure Stage III Patient currently at baseline Avoid nephrotoxic drugs. Monitor antihypertensive drug therapy. Avoid NSAIDs. Routine CMP monitoring GFR. Monitor electrolytes especially potassium. Antibiotic doses depending on creatinine clearance. Pharmacy does medications. HX AFIB:
[2023-06-16 07:55] LABS: Glucose Point of Care 191 mg/dl (65-105)
[2023-06-16 08:29] LABS: Cholesterol 133 mg/dL (0-200); HDL Direct 51 mg/dL; Triglycerides 70 mg/dL (<150)
[2023-06-16 08:40] LABS: LDL Cholesterol Direct 59 mg/dL
[2023-06-16] MEDS: APIXABAN 2.5 MG TABLET PO ×2 (09:40→21:05)
[2023-06-16] MEDS: polyethylene glycoL 3350 17 GM POWD.PACK PO (09:40)
[2023-06-16] MEDS: OXcarbazepine 300 MG TABLET PO ×2 (09:40→21:05)
[2023-06-16] MEDS: guaiFENesin 12 HR 600 MG TABCR PO ×2 (09:40→21:05)
[2023-06-16] MEDS: allopurinoL 100 MG TABLET PO (09:41)
[2023-06-16] MEDS: ATORVASTATIN 40 MG TABLET 80 MG PO (09:41)
[2023-06-16] MEDS: BUMETANIDE INJ 1 MG/4 ML VIAL 2 MG IV PUSH ×2 (09:41→19:08)
[2023-06-16] MEDS: hydrALAZINE HCL 25 MG TABLET PO ×3 (09:41→19:07)
[2023-06-16] MEDS: LOSARTAN POTASSIUM 12.5 MG TABLET PO (09:41)
[2023-06-16] MEDS: GABAPENTIN 100 MG CAPSULE PO ×3 (09:41→19:08)
[2023-06-16] MEDS: EMPAGLIFLOZIN 10 MG TABLET PO (09:41)
[2023-06-16] MEDS: ALPRAZolam (*CRX) 0.5 MG TABLET 1 MG PO ×2 (09:41→14:59)
[2023-06-16] MEDS: PANTOPRAZOLE 40 MG TABLET PO (09:41)
[2023-06-16] MEDS: FLUoxetine HCL 20 MG CAPSULE 40 MG PO ×2 (09:41→21:05)
[2023-06-16] MEDS: DOXEPIN HCL 25 MG CAPSULE PO ×2 (09:41→21:05)
[2023-06-16] MEDS: CARBIDOPA/LEVODOPA 25/100 MG TABLET 3 TABLET PO ×3 (09:41→19:07)
[2023-06-16] MEDS: AMIODARONE HCL 200 MG TABLET BY MOUTH (09:41)
[2023-06-16] MEDS: PRIMIDONE 50 MG TABLET PO ×2 (09:41→21:05)
[2023-06-16] MEDS: ONDANSETRON INJ 4 MG/2 ML VIAL IV PUSH (09:52)
[2023-06-16 12:08] LABS: Glucose Point of Care 268 mg/dl (65-105)
[2023-06-16] MEDS: INSULIN ASPART (*BKC) 100 UNITS/ML SUB-Q (12:30)
[2023-06-16] MEDS: LACTULOSE 20 GM/30 ML UDC PO (12:47)
[2023-06-16] MEDS: HYDROcodone/acetaminophen (*CRX) 5-325 MG TABLET 1 TAB PO ×2 (12:47→20:10)
--- NOTE | 2023-06-16 14:00 | PC.NURSE ---
pt taken down for CT
--- NOTE | 2023-06-16 14:35 | PC.NURSE ---
pt returned to room from CT
[2023-06-16] MEDS: methylPREDNISolone SOD SUCC 125 MG VIAL 60 MG IV PUSH ×2 (14:57→21:06)
[2023-06-16 16:17] LABS: Glucose Point of Care 197 mg/dl (65-105)
--- NOTE | 2023-06-16 16:43 | PM.CNPUL ---
Assessment and Plan Assessment and plan (1) Asthma-COPD overlap syndrome: Code(s): J44.89 - Other specified chronic obstructive pulmonary disease Status: Acute Assessment and Plan: Long history of asthma with at least 60 lack years of smoking, none since 2010 when she quit and gained significaint weight. She is on Breo, prn albuterol, has not felt that inhalers do much for her. Much of her dyspnea is related with high BMI, anxiety, deconditioning. Will request records from her pulmonary doctor. (2) Pulmonary hypertension: Code(s): I27.20 - Pulmonary hypertension, unspecified Status: Acute Assessment and Plan: This is most certainly secondary pulmonary hypertension; long standing; has technical director and boat person in [place]; she has reasons for high pulmonary pressures including heart failure, COPD, untreated obstructive sleep apnea; she has a history of sevral DVTs, however not pulmonary emboli. Her pulmonary hypertension should improve with management of other cardiac and pulmonary conditions. , (3) CHF exacerbation: Code(s): I50.9 - Heart failure, unspecified Status: Acute Assessment and Plan: She has heart failure with preserved ejection fraction, anasarca, pulmonary edema. (4) Acute on chronic respiratory failure with hypoxia and hypercapnia: Code(s): J96.21 - Acute and chronic respiratory failure with hypoxia; J96.22 - Acute and chronic respiratory failure with hypercapnia Status: Acute Assessment and Plan: Increased mild hypercapnia and hypoxemia on this admission, has not wanted ot use PAP in the past, diagnosis of DERRICK 20 years ago. She is [id number] by boat person and other specialists in [place], [place]. with anxiety and previous difficulty with positive airway pressure, will trial PAP however she may not be able to benefit. Adjust steroids, extend spectrum of antibiotics for nososcomial infection. (5) History of DVT (deep vein thrombosis): Code(s): Z86.718 - Personal history of other venous thrombosis and embolism Status: Acute Assessment and Plan: She reports multiple DVTs, initial DVT was in the left lower leg after delivery, and later a right upper extremity DVT and right DVT in the shoulder area currently on apixaban for this. Plan She has uncontrolled dCHF; she has asthma-COPD overlap, on Breo and prn albuterol. * Lactic acid due to decreaseding wbc 2.8 k * Dopplers pending to evaluate for recurrent DVTs * Adjust antibiotics to cover possible nosocomial pneumonia; has green sputum, increase in dyspnea, recently in this hospital for over 2 weeks with perineal abscess with surgical drainage. * old records * trial of PAP for hypercapnia * O2 wean * bronchodilators History of Present Illness History of Present Illness Consult date: 06/17/23 Requesting physician: Natividad Marin APRN Chief complaint: Acute respiratory failure, hypercapnia Narrative: The pt was seen June 15 Room 252 at 17:00 NEW: Mary Rondon is a 72-year-old woman with multiple medical conditions, admitted June 13 from [facility] with increased weakness, shortness of breath and green sputum. She has a long history of mild asthma/COPD and restrictive lung disease; her boat person is in [place]. She has been on several inhalers in the past which have not helped very much. She was on 2 liters/minute at [facility], has been on oxygen at least a year by reviewing the records at [facility]. At [facility] this past week she was increasing the flow to 4 liters/minute but the staff turned down to 2 L/min per the orders and
[2023-06-16 17:26] LABS: Glucose Point of Care 239 mg/dl (65-105)
--- NOTE | 2023-06-16 17:26 | ECG_ITS ---
SEE SCANNED COPY FOR CONFIRMED REPORT MTDD
--- NOTE | 2023-06-16 17:33 | PM.EVENT ---
Event Note Event Note Event Note: Rapid response called overhead at 17:19; arrived at 17:30 Nurse reports that the patient's protocol officer was alarming and she saw a burst of tachycardia which concerned her for ventricular tachycardia. She rushed to the patient's room and the patient was alert and responsive. SpO2 was 88%. S: Many people in the room on arrival. She is anxious and worried that she is dying due to the inundation of people. Feels a bit overwhelmed but calmed quickly with reassurance. Main complaint is that of anxiety. Frustrated that she feels that she has stuff to cough up but is unable to do so. She denied chest pain, palpitations, shortness of breath, lightheadedness, dizziness, worsening shortness of breath, nausea, vomiting, and sweats. After I left the room, she told the nurse that she was having nonradiating, mild left anterior chest discomfort. O: She is chronically ill in appearance but looks similar to when I evaluated her last night. She has looked up to the crash cart with monitor showing sinus rhythm/tachycardia with rates in the 80s to 90s. No significant murmurs heard. SpO2 is 96% on 3 L. She was hyperventilating when I entered the room but was able to be calmed with slow, deep breathing and reassurance. Lung sounds are coarse and diminished at the bases with scattered upper airway rhonchi. Extremities are mildly edematous but the left arm and hand especially are swollen. Extremities are well perfused with normal capillary refill. Initial EKG obtained had significant baseline artifact; repeat EKG showed a sinus rhythm without acute ST segment changes. A/P: 1. Abnormal telemetry: Telemetry was reviewed and 3 of the 4 leads were consistent with artifact likely related to her Parkinson's. 2. Chest pain: May very well be due to anxiety. Initially denied chest pain to me but reported left sided discomfort to the nurse. EKG ordered which the machine read as an acute NM. Much baseline artifact was noted. EKG was repeated minutes thereafter and showed sinus rhythm with occasional ectopy, normal axis, normal intervals. No ST elevations or depressions were seen. Continue to monitor on telemetry. Patient is stable and at this time is asking for help to eat her dinner. Left upper extremity venous Doppler ultrasound ordered due to significant edema. Continue antibiotics, steroids, etc. Troponins will be trended. Case discussed with Drs. Lugo and Chano who were also present during the event. Critical Care Time Critical Care Time: Yes Total Critical Care Time: 35 Attestation: Due to a high probability of clinically significant, life threatening deterioration, the patient required my highest level of preparedness to intervene emergently and I personally spent this critical care time directly and personally managing the patient. This critical care time included obtaining a history; examining the patient; pulse oximetry; ordering and review of studies; arranging urgent treatment with development of a management plan; evaluation of patient's response to treatment; frequent reassessment; and discussions with other providers. It was exclusive of separately billable procedures and treating other patients and teaching time. Please see Assessment and Plan section and the rest of the note for further information on patient assessment and treatment.
[2023-06-16 18:06] LABS: Anion Gap 8 mmol/L (4-12); Blood Urea Nitrogen 33 mg/dL (7-17); Calcium 8.9 mg/dL (8.4-10.2); Carbon Dioxide 31 mmol/L (22-30); Chloride 96 mmol/L (98-107); Estimated CRCL calculation 44 ml/min; Estimated Glomerular Filt Rate 32; Glucose 230 mg/dL (65-110); Magnesium 1.8 mg/dL (1.6-2.3); Potassium 4.2 mmol/L (3.4-5.0); Sodium 135 mmol/L (137-145)
[2023-06-16 18:07] LABS: Hematocrit 26.8 % (37.0-47.0); Hemoglobin 8.1 g/dL (12.0-15.0)
[2023-06-16 18:08] LABS: Lactic Acid Reflex 1.3 mmol/L (0.7-2.0)
[2023-06-16 18:17] LABS: Troponin I 0.021 ng/mL (0.000-0.034)
--- NOTE | 2023-06-16 20:05 | PC.NURSE ---
Rapid Response called on patient around 1720 after what looked like a 19 beat run of V-tach on telemetry. Primary nurse obtained vital signs P-98, palpated R radial pulse which felt regular, Respirations 26, O2 92% on 3LNC, and BP 119/58. After assessment and RR, I spoke with Sasha Sales REFRIGERATION SYSTEMS INSTALLER who gave me a verbal order for EKG. Initial EKG read acute RI. Repeat EKG read sinus rhythm with occasional supraventricular premature complexes. Patient does have history of parkinsons disease and has severe tremors. Patient initially denied chest pain during RR, but now complains of chest pressure under and around left breast/chest rated 5/10. After deep breathing and reposition it was improved per patient, provider made aware. EKG results reviewed with provider. Reviewed lab results and chest CT results with provider as well. Patient resting more comfortably now.
[2023-06-16] MEDS: FLUTICASONE/SALMETEROL 230-21 MCG INHALER 1 PUFF 2 PUFF INHALATION (20:50)
[2023-06-16] MEDS: QUEtiapine FUMARATE 25 MG TABLET PO (21:05)
[2023-06-16] MEDS: rOPINIRole HCL 0.5 MG TABLET PO (21:05)
[2023-06-16] MEDS: PRAZOSIN HCL 5 MG CAPSULE PO (21:06)
[2023-06-16 21:18] LABS: Troponin I 0.022 ng/mL (0.000-0.034)
[2023-06-16 21:31] LABS: Glucose Point of Care 261 mg/dl (65-105)
[2023-06-16] MEDS: ACETAMINOPHEN 325 MG TABLET 650 MG BY MOUTH (23:34)
[2023-06-17] VITALS (26 sets, daily range): BP systolic 127–157; BP diastolic 67–87; PULSE 90–104; RESP 18–24; TEMP 36.1–36.7; O2SAT 93–99
[2023-06-17 00:07] LABS: Troponin I 0.023 ng/mL (0.000-0.034)
[2023-06-17] MEDS: IPRATROPIUM 0.5 MG/ALBUTEROL SULFATE 2.5 MG AMPUL.NEB 3 ML INHALATION ×6 (00:25→22:54)
[2023-06-17] MEDS: CEFEPIME 2 GM/NS 50 ML 2 GM/50 ML BAG IVPB ×2 (03:11→14:16)
[2023-06-17 04:53] LABS: Hematocrit 26.5 % (37.0-47.0); Hemoglobin 7.7 g/dL (12.0-15.0); Immature Granulocyte Absolute 0.03 K/mm3 (0.00-0.031); Immature Granulocyte Percent A 1.1 % (0-0.5); Lymphocytes Absolute Auto 0.18 K/mm3 (0.9-3.2); Lymphocytes Percent Auto 6.8 % (18.3-44.2); Mean Corpuscular HGB Conc 29.1 g/dl (32-36); Mean Corpuscular Volume 103.1 fl (80-100); Monocytes Absolute Auto 0.1 K/mm3 (0.1-0.6); Monocytes Percent Auto 4.5 % (2.6-8.5); Neutrophils Absolute Auto 2.3 K/mm3 (1.3-6.7); Neutrophils Percent Auto 87.6 % (45.5-73.1); Platelet Count Result 166 k/mm3 (150-375); Red Blood Count 2.57 M/mm3 (4.2-5.4); Red Cell Distribution Width 14.9 % (11.5-14.5); White Blood Count 2.7 K/mm3 (4.5-10.0)
[2023-06-17 05:12] LABS: Albumin Level 3.9 g/dL (3.5-5.1); Alkaline Phosphatase 116 U/L (38-126); Anion Gap 6 mmol/L (4-12); Aspartate Amino Transferase 16 U/L (14-36); Bilirubin,Total 0.5 mg/dL (0.2-1.3); Blood Urea Nitrogen 34 mg/dL (7-17); Calcium 8.7 mg/dL (8.4-10.2); Carbon Dioxide 32 mmol/L (22-30); Chloride 96 mmol/L (98-107); Estimated CRCL calculation 42 ml/min; Estimated Glomerular Filt Rate 29; Glucose 237 mg/dL (65-110); Magnesium 1.9 mg/dL (1.6-2.3); Potassium 4.1 mmol/L (3.4-5.0); Sodium 134 mmol/L (137-145)
[2023-06-17 05:32] LABS: Platelet Estimate Adequate (Adequate)
[2023-06-17 05:34] LABS: Anisocytosis 1+; Hypochromasia 1+; Schistocytes None Seen
[2023-06-17] MEDS: LACTULOSE 20 GM/30 ML UDC PO ×3 (05:48→16:22)
[2023-06-17] MEDS: methylPREDNISolone SOD SUCC 125 MG VIAL 60 MG IV PUSH (05:49)
[2023-06-17 05:55] LABS: Alanine Aminotransferase < 6 U/L (6-35)
--- NOTE | 2023-06-17 07:37 | PM.PNPUL ---
Progress Note: A&P Assessment and Plan (1) Asthma-COPD overlap syndrome: Code(s): J44.89 - Other specified chronic obstructive pulmonary disease Status: Acute Assessment and Plan: 06/16/23: Long history of asthma with at least 60 lack years of smoking, none since 2010 when she quit and gained significaint weight. She is on Breo, prn albuterol, has not felt that inhalers do much for her. Much of her dyspnea is related with high BMI, anxiety, deconditioning. Will request records from her pulmonary doctor. 06/17/23: the patient states she is clinically about the same. She has shortness of breath when talking, I have decreased her oxygen to her baseline of 2 L. The patient tells me she is being followed for nodules by her agricultural economics teacher in [facility] name to Dr. Aadms. Plan: The patient has no active wheezing currently and I will change her Solu-Medrol to prednisone 40 q.day starting 06/18/2023, day 3 of steroids. I will continue DuoNebs q.4 hours. Patient is being treated for possible healthcare associated pneumonia, she is afebrile, no leukocytosis, multiple infiltrates on her chest x-ray and I will add Levaquin to her cefepime, day 3 antibiotics. I will discontinue her Advair inhaler as she is already on maximal beta agonists and high-dose systemic steroids. I will increase her guaifenesin to 1200 mg p.o. q.12 hours. Continue Cornet flutter valve and incentive spirometry. Out of bed as tolerated. (2) Pulmonary hypertension: Code(s): I27.20 - Pulmonary hypertension, unspecified Status: Acute Assessment and Plan: 06/16/23: This is most certainly secondary pulmonary hypertension; long standing; has microbiology lab technician and agricultural economics teacher in [place]; she has reasons for high pulmonary pressures including heart failure, COPD, untreated obstructive sleep apnea; she has a history of several DVTs, however not pulmonary emboli. Her pulmonary hypertension should improve with management of other cardiac and pulmonary conditions. Echocardiogram 12/13/2021 with normal LVEF 60-65%, grade 1 diastolic dysfunction, RV is normal size with an RVSP of 51. Echocardiogram 06/15/2023 with normal LVEF 60- 65%, normal diastolic function, normal RV size and function, RVSP 50-55 in the interpretation an 61 in the body of report. 06/17/23: Patient has been diuresed 5.1 L since admission, her BNP is elevated today at 12,400, she continues on diuresis per hospitalist team. Managing her Asthma/COPD exacerbation as above. she is intolerant to noninvasive ventilation. She is on Eliquis for history of DVTs. Plan: Continue as aggressive diuresis as tolerated by her cardiac and renal systems per hospitalist team. Currently she is on Bumex 2 mg IV b.i.d., hydralazine 25 t.i.d., losartan 12.5 q.day, prazosin 5 q.h.s.. I have ordered for daily weights. I will perform overnight oximetry tonight on 2 L. she cannot tolerate CPAP, or noninvasive ventilation I will discontinue this. (3) CHF exacerbation: Code(s): I50.9 - Heart failure, unspecified Status: Acute Assessment and Plan: 06/16/23: She has heart failure with preserved ejection fraction, anasarca, pulmonary edema. 06/16/23: Continue as aggressive diuresis as tolerated by her cardiac and renal systems per hospitalist team. Currently she is on Bumex 2 mg IV b.i.d., hydralazine 25 t.i.d., losartan 12.5 q.day, prazosin 5 q.h.s.. I have ordered for daily weights. (4) Acute on chronic respiratory failure with hypoxia and hypercapnia: Code(s): J96.21 - Acute and chronic respiratory failure with hypoxia; J96.22 - Acute and chronic respiratory failure with hypercapnia Status: Acute Assessment and Plan: 06/16/23: Increased mild hypercapnia and hypoxemia on this admission, has not wanted to use PAP in the past, diagnosis of DERRICK 20 years ago. She is [id number] by agricultural economics teacher and other specialists in [facility], [place]. with anxiety and previous difficulty wi
--- NOTE | 2023-06-17 08:06 | P.PNIM_ITS ---
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 (4) Parkinson disease: Code(s): G20 - Parkinson's disease Status: Chronic (5) Atrial fibrillation: Code(s): I48.91 - Unspecified atrial fibrillation Status: Chronic (6) Hyponatremia: Code(s): E87.1 - Hypo-osmolality and hyponatremia Status: Chronic (7) Obstructive sleep apnea: Code(s): G47.33 - Obstructive sleep apnea (adult) (pediatric) Status: Chronic (8) Cutaneous abscess of perineum: Code(s): L02.215 - Cutaneous abscess of perineum Status: Acute (9) Pulmonary hypertension: Code(s): I27.20 - Pulmonary hypertension, unspecified Status: Acute Plan Acute on chronic respiratory failure with hypoxia and hypercapnia secondary to COPD exacerbation vs CHF exacerbation vs superimposed pneumonia * wears 2-3 L oxygen at all times but has had to turn it up the last several days * Patient needs education on CO2 retention 06/14: * currently on 5 L NC * productive cough with green sputum and COPD hx * switched antibiotic therapy to cefepime for possible HAP given recent hospitalization and now with SOB, congestion, coarse breath sounds and green sputum production. * started steroids q 8 hours given wheezing with COPD exacerbation * duo nebs q 4 hours scheduled * sputum culture ordered * IS and PEP therapy * Guaifenesin BID * add procalcitonin * Incentive spirometer 06/15: * Wean Oxygen to maintain 92% SPO2 (CO2 retention) * consulted director business development for CPAP/Trilogy/NIV * added Dulera b.i.d. * CT chest emphysema, chronic ILD 06/16: * IV steroids switched to prednisone * Apnea link overnight ordered * Levaquin added for atypical pneumonias * Often is an increased 1200 * The patient is deemed unlikely to tolerate BiPAP * Multiple nodules noted on CT states she follows with director business development outpatient for follow-up recommends [address]/PET scan Pulmonary hypertension * prior echocardiogram in 2021 shows LVEF 60-65% with grade 1 diastolic dysfunction * chest x-ray with significant cardiomegaly and pulmonary edema suggest likely worsened function * ordered echocardiogram-increase Bumex 2 mg oral once daily to 2 mg IV b.i.d. for now, watch chronic renal function/chronic hyponatremia/hypokalemia 06/14: * BNP 6900 POA * 159kg today * UOP 1750ml with net - 860 * echo pending completion * 1500 ml fluid restriction * education on CHF low sodium diet and fluid restriction 06/15 * Echo shows LVEF 60-65 with moderate Pumonary HTN, normal diatsolic and sytolic function * Continue with IV Bumex * Wean Oxygen to maintain 92% SPO2 * Jono for I&O's Anemia: * Hemoglobin 7.3, no acute signs of bleeding * found to be deficient in B12 and was started on therapy * monitor H&H * transfuse PRBC if Hgb <7.0 * Follow B12/anemia Outpatient 06/15:
--- NOTE | 2023-06-17 08:06 | PM.IMPN ---
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 (4) Parkinson disease: Code(s): G20 - Parkinson's disease Status: Chronic (5) Atrial fibrillation: Code(s): I48.91 - Unspecified atrial fibrillation Status: Chronic (6) Hyponatremia: Code(s): E87.1 - Hypo-osmolality and hyponatremia Status: Chronic (7) Obstructive sleep apnea: Code(s): G47.33 - Obstructive sleep apnea (adult) (pediatric) Status: Chronic (8) Cutaneous abscess of perineum: Code(s): L02.215 - Cutaneous abscess of perineum Status: Acute (9) Pulmonary hypertension: Code(s): I27.20 - Pulmonary hypertension, unspecified Status: Acute Plan Acute on chronic respiratory failure with hypoxia and hypercapnia secondary to COPD exacerbation vs CHF exacerbation vs superimposed pneumonia wears 2-3 L oxygen at all times but has had to turn it up the last several days Patient needs education on CO2 retention 06/14: currently on 5 L NC productive cough with green sputum and COPD hx switched antibiotic therapy to cefepime for possible HAP given recent hospitalization and now with SOB, congestion, coarse breath sounds and green sputum production. started steroids q 8 hours given wheezing with COPD exacerbation duo nebs q 4 hours scheduled sputum culture ordered IS and PEP therapy Guaifenesin BID add procalcitonin Incentive spirometer 06/15: Wean Oxygen to maintain 92% SPO2 (CO2 retention) consulted rod buster helper for CPAP/Trilogy/NIV added Dulera b.i.d. CT chest emphysema, chronic ILD 06/16: IV steroids switched to prednisone Apnea link overnight ordered Levaquin added for atypical pneumonias Often is an increased 1200 The patient is deemed unlikely to tolerate BiPAP Multiple nodules noted on CT states she follows with rod buster helper outpatient for follow-up recommends [address]/PET scan Pulmonary hypertension prior echocardiogram in 2021 shows LVEF 60-65% with grade 1 diastolic dysfunction chest x-ray with significant cardiomegaly and pulmonary edema suggest likely worsened function ordered echocardiogram-increase Bumex 2 mg oral once daily to 2 mg IV b.i.d. for now, watch chronic renal function/chronic hyponatremia/hypokalemia 06/14: BNP 6900 POA 159kg today UOP 1750ml with net - 860 echo pending completion 1500 ml fluid restriction education on CHF low sodium diet and fluid restriction 06/15 Echo shows LVEF 60-65 with moderate Pumonary HTN, normal diatsolic and sytolic function Continue with IV Bumex Wean Oxygen to maintain 92% SPO2 De La Cruz for I&O's Anemia: Hemoglobin 7.3, no acute signs of bleeding found to be deficient in B12 and was started on therapy monitor H&H transfuse PRBC if Hgb <7.0 Follow B12/anemia Outpatient 06/15: Hgb 8.4 stable Diabetes glucose running around 200's likely secondary to steroid use decreased Accu-Cheks a.c. HS sliding scale insulin Holding Jardiance A1C 9.3 today down from 12 Will likely need something at discharge and follow with PCP for follow-up lipid panel pending Diabetic diet consult to dietitian encourage lifestyle modifications and weight loss Optimize Kyle inhibitors and statins. Watch for hypoglycemia/hypoglycemic protocol or
[2023-06-17 08:19] LABS: Glucose Point of Care 221 mg/dl (65-105)
[2023-06-17 08:59] LABS: NT Pro B Type Natriuretic Pept 12400 pg/mL (19.9-100)
[2023-06-17 09:08] LABS: Procalcitonin 0.1 ng/mL
[2023-06-17] MEDS: BUMETANIDE INJ 1 MG/4 ML VIAL 2 MG IV PUSH ×2 (09:31→16:22)
[2023-06-17] MEDS: GABAPENTIN 100 MG CAPSULE PO ×3 (09:32→16:22)
[2023-06-17] MEDS: FLUoxetine HCL 20 MG CAPSULE 40 MG PO ×2 (09:32→20:37)
[2023-06-17] MEDS: DOXEPIN HCL 25 MG CAPSULE PO ×2 (09:32→20:36)
[2023-06-17] MEDS: APIXABAN 2.5 MG TABLET PO ×2 (09:32→20:37)
[2023-06-17] MEDS: PANTOPRAZOLE 40 MG TABLET PO (09:32)
[2023-06-17] MEDS: guaiFENesin 12 HR 600 MG TABCR PO (09:32)
[2023-06-17] MEDS: EMPAGLIFLOZIN 10 MG TABLET PO (09:32)
[2023-06-17] MEDS: ATORVASTATIN 40 MG TABLET 80 MG PO (09:32)
[2023-06-17] MEDS: OXcarbazepine 300 MG TABLET PO ×2 (09:32→20:35)
[2023-06-17] MEDS: allopurinoL 100 MG TABLET PO (09:32)
[2023-06-17] MEDS: LOSARTAN POTASSIUM 12.5 MG TABLET PO (09:32)
[2023-06-17] MEDS: ALPRAZolam (*CRX) 0.5 MG TABLET 1 MG PO ×3 (09:32→20:35)
[2023-06-17] MEDS: CARBIDOPA/LEVODOPA 25/100 MG TABLET 3 TABLET PO ×3 (09:33→16:22)
[2023-06-17] MEDS: AMIODARONE HCL 200 MG TABLET BY MOUTH (09:33)
[2023-06-17] MEDS: INSULIN ASPART (*BKC) 100 UNITS/ML SUB-Q ×2 (09:33→11:57)
[2023-06-17] MEDS: PRIMIDONE 50 MG TABLET PO ×2 (09:34→20:36)
[2023-06-17] MEDS: FLUTICASONE/SALMETEROL 230-21 MCG INHALER 1 PUFF 2 PUFF INHALATION (10:09)
[2023-06-17 10:56] LABS: Thyroid Stimulating Hormone 0.702 uIU/mL (0.465-4.680)
[2023-06-17] MEDS: levoFLOXacin 750 MG/D5W 150 ML 750 MG/150 ML BAG 100 MG IVPB (11:47)
[2023-06-17] MEDS: HYDROcodone/acetaminophen (*CRX) 5-325 MG TABLET 1 TAB PO ×2 (11:50→20:35)
[2023-06-17 11:58] LABS: Glucose Point of Care 210 mg/dl (65-105)
[2023-06-17 17:09] LABS: Glucose Point of Care 149 mg/dl (65-105)
[2023-06-17 20:19] LABS: Glucose Point of Care 150 mg/dl (65-105)
[2023-06-17] MEDS: QUEtiapine FUMARATE 25 MG TABLET PO (20:36)
[2023-06-17] MEDS: PRAZOSIN HCL 5 MG CAPSULE PO (20:36)
[2023-06-17] MEDS: rOPINIRole HCL 0.5 MG TABLET PO (20:36)
[2023-06-17] MEDS: guaiFENesin 12 HR 600 MG TABCR 1200 MG PO (20:36)
[2023-06-18] VITALS (19 sets, daily range): BP systolic 137–158; BP diastolic 68–99; PULSE 93–111; RESP 20–22; TEMP 36.2–36.5; O2SAT 92–98
[2023-06-18] MEDS: CEFEPIME 2 GM/NS 50 ML 2 GM/50 ML BAG IVPB ×2 (02:05→15:45)
--- NOTE | 2023-06-18 04:38 | PCRCNOTE ---
Pt was not given her 0400 breathing tx due to being on her overnight apnea link study. Tx will continue as scheduled at 0800.
[2023-06-18] MEDS: LORazepam INJ (*CRX) 2 MG/ML VIAL 1 MG IV PUSH ×3 (04:45→20:47)
[2023-06-18 05:39] LABS: Basophils Percent Auto 0.2 % (0.2-1.2); Eosinophils Percent Auto 0.5 % (0-4.4); Hematocrit 27.3 % (37.0-47.0); Hemoglobin 7.9 g/dL (12.0-15.0); Immature Granulocyte Absolute 0.02 K/mm3 (0.00-0.031); Immature Granulocyte Percent A 0.5 % (0-0.5); Lymphocytes Absolute Auto 0.81 K/mm3 (0.9-3.2); Mean Corpuscular HGB Conc 28.9 g/dl (32-36); Mean Corpuscular Hemoglobin 29.6 pg (26-34); Mean Corpuscular Volume 102.2 fl (80-100); Mean Platelet Volume 11.2 fl (7.4-10.4); Monocytes Absolute Auto 0.6 K/mm3 (0.1-0.6); Monocytes Percent Auto 14.1 % (2.6-8.5); Neutrophils Absolute Auto 2.6 K/mm3 (1.3-6.7); Neutrophils Percent Auto 64.7 % (45.5-73.1); Platelet Count Result 154 k/mm3 (150-375); Red Blood Count 2.67 M/mm3 (4.2-5.4); Red Cell Distribution Width 14.9 % (11.5-14.5); White Blood Count 4.1 K/mm3 (4.5-10.0)
[2023-06-18 05:50] LABS: Alanine Aminotransferase 6 U/L (6-35); Alkaline Phosphatase 105 U/L (38-126); Anion Gap 6 mmol/L (4-12); Aspartate Amino Transferase 16 U/L (14-36); Bilirubin,Total 0.6 mg/dL (0.2-1.3); Blood Urea Nitrogen 34 mg/dL (7-17); Calcium 9.1 mg/dL (8.4-10.2); Carbon Dioxide 34 mmol/L (22-30); Chloride 97 mmol/L (98-107); Estimated CRCL calculation 42 ml/min; Estimated Glomerular Filt Rate 29; Glucose 149 mg/dL (65-110); Magnesium 1.9 mg/dL (1.6-2.3); Potassium 3.8 mmol/L (3.4-5.0); Sodium 137 mmol/L (137-145)
[2023-06-18] MEDS: LACTULOSE 20 GM/30 ML UDC PO ×3 (05:54→17:46)
[2023-06-18 06:31] LABS: Anisocytosis 1+; Hypochromasia 1+; Platelet Estimate Adequate (Adequate); Schistocytes None Seen
--- NOTE | 2023-06-18 07:55 | PM.PNPUL ---
Progress Note: A&P Assessment and Plan (1) Asthma-COPD overlap syndrome: Code(s): J44.89 - Other specified chronic obstructive pulmonary disease Status: Acute Assessment and Plan: Patient with 56 pack year tobacco use, mild centrilobular emphysema on her CT scan. Patient tells me she had respiratory issues in grade school and could not keep up with her friends during PE class. She denies wheezing. She was never told she had asthma. She was never on any inhaled medications in grade school. In high school she says she had limitations in PE class but that she could dance with her friends and was on limited during this dancing activity. Her real breathing difficulty started later in life when she gained weight and continued to smoke. 06/16/23: Long history of asthma with at least 60 lack years of smoking, none since 2010 when she quit and gained significaint weight. She is on Breo, prn albuterol, has not felt that inhalers do much for her. Much of her dyspnea is related with high BMI, anxiety, deconditioning. Will request records from her pulmonary doctor. 06/17/23: the patient states she is clinically about the same. She has shortness of breath when talking, I have decreased her oxygen to her baseline of 2 L. The patient tells me she is being followed for nodules by her inside wireman in [facility] name to Dr. Adams. Plan: The patient has no active wheezing currently and I will change her Solu-Medrol to prednisone 40 q.day starting 06/18/2023, day 3 of steroids. I will continue DuoNebs q.4 hours. Patient is being treated for possible healthcare associated pneumonia, she is afebrile, no leukocytosis, multiple infiltrates on her chest x-ray and I will add Levaquin to her cefepime, day 3 antibiotics. I will discontinue her Advair inhaler as she is already on maximal beta agonists and high-dose systemic steroids. I will increase her guaifenesin to 1200 mg p.o. q.12 hours. Continue Cornet flutter valve and incentive spirometry. Out of bed as tolerated. 06/18/23: Set up in the chair for 5 hours yesterday and was breathing better when she sat up in the chair. She walked 12 ft with physical therapy. Patient had a cough last night that did keep her up. It was dry. She is afebrile. White blood cell count 4.1, creatinine 1.70, She had an overnight oximetry on 2 L nasal cannula with recording duration 6 hours and 19 minutes, average saturation 98%, low saturation 85%, time with saturation less than or equal to 88% was 0 minutes, oxygen desaturation index 7.8. When I enter the room she was on 2 L nasal cannula saturations 96%. I decreased her to 1 L nasal cannula her saturation after 6 minutes was 94%. Plan: Will continue to treat for asthma -COPD exacerbation with prednisone 40 mg q.day, day 4 of steroids, DuoNebs q.4 hours, guaifenesin 1200 mg p.o. b.i.d.. I will add nebulized budesonide 500 mcg b.i.d.. Agree with treatment for possible health care pneumonia with cefepime, day 4 and levofloxacin, day 2. Goal saturation 90-94%. Patient requires 2 L nasal cannula at night. Wean saturation during the day as tolerated. She will likely require more than 1 L oxygen with activity. (2) Pulmonary hypertension: Code(s): I27.20 - Pulmonary hypertension, unspecified Status: Acute Assessment and Plan: 06/16/23: This is most certainly secondary pulmonary hypertension; long standing; has sitecore developer and inside wireman in [place]; she has reasons for high pulmonary pressures including heart failure, COPD, untreated obstructive sleep apnea; she has a history of several DVTs, however not pulmonary emboli. Her pulmonary hypertension should improve with management of other cardiac and pulmonary conditions. Echocardiogram 12/13/2021 with normal LVEF 60-65%, grade 1 diastolic dysfunction, RV is normal size with an RVSP of 51. Echocardiogram 06/15/2023 with normal LVEF 60- 65%, normal diastolic function, normal RV si
[2023-06-18 08:41] LABS: Glucose Point of Care 125 mg/dl (65-105)
[2023-06-18] MEDS: CARBIDOPA/LEVODOPA 25/100 MG TABLET 3 TABLET PO ×3 (08:43→17:44)
[2023-06-18] MEDS: predniSONE 20 MG TABLET 40 MG PO (08:45)
[2023-06-18] MEDS: ATORVASTATIN 40 MG TABLET 80 MG PO (08:45)
[2023-06-18] MEDS: HYDROcodone/acetaminophen (*CRX) 5-325 MG TABLET 1 TAB PO ×2 (08:45→17:44)
[2023-06-18] MEDS: LOSARTAN POTASSIUM 12.5 MG TABLET PO (08:46)
[2023-06-18] MEDS: DOXEPIN HCL 25 MG CAPSULE PO ×2 (08:46→20:47)
[2023-06-18] MEDS: allopurinoL 100 MG TABLET PO (08:46)
[2023-06-18] MEDS: FLUoxetine HCL 20 MG CAPSULE 40 MG PO ×2 (08:46→20:48)
[2023-06-18] MEDS: EMPAGLIFLOZIN 10 MG TABLET PO (08:46)
[2023-06-18] MEDS: PRIMIDONE 50 MG TABLET PO ×2 (08:46→20:47)
[2023-06-18] MEDS: AMIODARONE HCL 200 MG TABLET BY MOUTH (08:46)
[2023-06-18] MEDS: PANTOPRAZOLE 40 MG TABLET PO (08:46)
[2023-06-18] MEDS: GABAPENTIN 100 MG CAPSULE PO ×3 (08:46→17:44)
[2023-06-18] MEDS: guaiFENesin 12 HR 600 MG TABCR 1200 MG PO ×2 (08:46→20:47)
[2023-06-18] MEDS: APIXABAN 2.5 MG TABLET PO ×2 (08:46→20:47)
[2023-06-18] MEDS: OXcarbazepine 300 MG TABLET PO ×2 (08:46→20:47)
[2023-06-18] MEDS: BUMETANIDE INJ 1 MG/4 ML VIAL 2 MG IV PUSH ×2 (08:47→17:44)
[2023-06-18] MEDS: polyethylene glycoL 3350 17 GM POWD.PACK PO (08:48)
[2023-06-18] MEDS: IPRATROPIUM 0.5 MG/ALBUTEROL SULFATE 2.5 MG AMPUL.NEB 3 ML INHALATION ×3 (10:51→19:16)
[2023-06-18] MEDS: BUDESONIDE RESPULE NEB 0.5 MG/2 ML AMP INHALATION ×2 (10:51→19:16)
[2023-06-18] MEDS: INSULIN ASPART (*BKC) 100 UNITS/ML SUB-Q (12:17)
[2023-06-18 12:19] LABS: Glucose Point of Care 207 mg/dl (65-105)
--- NOTE | 2023-06-18 12:21 | P.PNIM_ITS ---
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 (4) Parkinson disease: Code(s): G20 - Parkinson's disease Status: Chronic (5) Atrial fibrillation: Code(s): I48.91 - Unspecified atrial fibrillation Status: Chronic (6) Hyponatremia: Code(s): E87.1 - Hypo-osmolality and hyponatremia Status: Chronic (7) Obstructive sleep apnea: Code(s): G47.33 - Obstructive sleep apnea (adult) (pediatric) Status: Chronic (8) Cutaneous abscess of perineum: Code(s): L02.215 - Cutaneous abscess of perineum Status: Acute (9) Pulmonary hypertension: Code(s): I27.20 - Pulmonary hypertension, unspecified Status: Acute Plan Acute on chronic respiratory failure with hypoxia and hypercapnia multifocal to COPD exacerbation vs CHF exacerbation vs superimposed pneumonia * wears 2-3 L oxygen at all times but has had to turn it up the last several days * Patient needs education on CO2 retention 06/14: * currently on 5 L NC * productive cough with green sputum and COPD hx * switched antibiotic therapy to cefepime for possible HAP given recent hospitalization and now with SOB, congestion, coarse breath sounds and green sputum production. * started steroids q 8 hours given wheezing with COPD exacerbation * duo nebs q 4 hours scheduled * sputum culture ordered * IS and PEP therapy * Guaifenesin BID * add procalcitonin * Incentive spirometer 06/15: * Wean Oxygen to maintain 92% SPO2 (CO2 retention) * consulted database developer for CPAP/Trilogy/NIV * added Dulera b.i.d. * CT chest emphysema, chronic ILD 06/16: * IV steroids switched to prednisone * Apnea link overnight ordered * Levaquin added for atypical pneumonias * Often is an increased 1200 * The patient is deemed unlikely to tolerate BiPAP * Multiple nodules noted on CT states she follows with database developer outpatient for follow-up recommends [address]/PET scan 06/17: * Overnight Pulse Oximtery lowest at 85% * will need supplemental walk study prior to discharge however likely going to rehab Pulmonary hypertension * prior echocardiogram in 2021 shows LVEF 60-65% with grade 1 diastolic dysfunction * chest x-ray with significant cardiomegaly and pulmonary edema suggest likely worsened function * ordered echocardiogram-increase Bumex 2 mg oral once daily to 2 mg IV b.i.d. for now, watch chronic renal function/chronic hyponatremia/hypokalemia 06/14: * BNP 6900 POA * 159kg today * UOP 1750ml with net - 860 * echo pending completion * 1500 ml fluid restriction * education on CHF low sodium diet and fluid restriction 06/15 * Echo shows LVEF 60-65 with moderate Pumonary HTN, normal diatsolic and sytolic function * Continue with IV Bumex * Wean Oxygen to maintain 92% SPO2 * Jono for I&O's Anemia: * Hemoglobin 7.3, no acute signs of bleeding * fou
--- NOTE | 2023-06-18 12:21 | PM.IMPN ---
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 (4) Parkinson disease: Code(s): G20 - Parkinson's disease Status: Chronic (5) Atrial fibrillation: Code(s): I48.91 - Unspecified atrial fibrillation Status: Chronic (6) Hyponatremia: Code(s): E87.1 - Hypo-osmolality and hyponatremia Status: Chronic (7) Obstructive sleep apnea: Code(s): G47.33 - Obstructive sleep apnea (adult) (pediatric) Status: Chronic (8) Cutaneous abscess of perineum: Code(s): L02.215 - Cutaneous abscess of perineum Status: Acute (9) Pulmonary hypertension: Code(s): I27.20 - Pulmonary hypertension, unspecified Status: Acute Plan Acute on chronic respiratory failure with hypoxia and hypercapnia multifocal to COPD exacerbation vs CHF exacerbation vs superimposed pneumonia wears 2-3 L oxygen at all times but has had to turn it up the last several days Patient needs education on CO2 retention 06/14: currently on 5 L NC productive cough with green sputum and COPD hx switched antibiotic therapy to cefepime for possible HAP given recent hospitalization and now with SOB, congestion, coarse breath sounds and green sputum production. started steroids q 8 hours given wheezing with COPD exacerbation duo nebs q 4 hours scheduled sputum culture ordered IS and PEP therapy Guaifenesin BID add procalcitonin Incentive spirometer 06/15: Wean Oxygen to maintain 92% SPO2 (CO2 retention) consulted oceanography teacher for CPAP/Trilogy/NIV added Dulera b.i.d. CT chest emphysema, chronic ILD 06/16: IV steroids switched to prednisone Apnea link overnight ordered Levaquin added for atypical pneumonias Often is an increased 1200 The patient is deemed unlikely to tolerate BiPAP Multiple nodules noted on CT states she follows with oceanography teacher outpatient for follow-up recommends [address]/PET scan 06/17: Overnight Pulse Oximtery lowest at 85% will need supplemental walk study prior to discharge however likely going to rehab Pulmonary hypertension prior echocardiogram in 2021 shows LVEF 60-65% with grade 1 diastolic dysfunction chest x-ray with significant cardiomegaly and pulmonary edema suggest likely worsened function ordered echocardiogram-increase Bumex 2 mg oral once daily to 2 mg IV b.i.d. for now, watch chronic renal function/chronic hyponatremia/hypokalemia 06/14: BNP 6900 POA 159kg today UOP 1750ml with net - 860 echo pending completion 1500 ml fluid restriction education on CHF low sodium diet and fluid restriction 06/15 Echo shows LVEF 60-65 with moderate Pumonary HTN, normal diatsolic and sytolic function Continue with IV Bumex Wean Oxygen to maintain 92% SPO2 De La Cruz for I&O's Anemia: Hemoglobin 7.3, no acute signs of bleeding found to be deficient in B12 and was started on therapy monitor H&H transfuse PRBC if Hgb <7.0 Follow B12/anemia Outpatient 06/15: Hgb 8.4 stable Diabetes glucose running around 200's likely secondary to steroid use decreased Accu-Cheks a.c. HS sliding scale insulin Holding Jardiance A1C 9.3 today down from 12 Will likely need something at discharge and follow with PCP for follow-up lipid panel pending Diabetic diet consult to dietitian encour
[2023-06-18] MEDS: BENZOCAINE/MENTHOL (*BKC) 18 EA LOZENGE 1 LOZENGE PO (13:12)
[2023-06-18 17:09] LABS: Glucose Point of Care 190 mg/dl (65-105)
[2023-06-18 19:50] LABS: Glucose Point of Care 198 mg/dl (65-105)
[2023-06-18] MEDS: rOPINIRole HCL 0.5 MG TABLET PO (20:47)
[2023-06-18] MEDS: QUEtiapine FUMARATE 25 MG TABLET PO (20:48)
[2023-06-18] MEDS: PRAZOSIN HCL 5 MG CAPSULE PO (20:48)
[2023-06-18] MEDS: ALPRAZolam (*CRX) 0.5 MG TABLET 1 MG PO (20:56)
[2023-06-19] VITALS (24 sets, daily range): BP systolic 126–136; BP diastolic 71–89; PULSE 88–111; RESP 16–24; TEMP 36.3–36.7; O2SAT 93–100
[2023-06-19] MEDS: CEFEPIME 2 GM/NS 50 ML 2 GM/50 ML BAG IVPB ×2 (02:04→15:42)
[2023-06-19] MEDS: IPRATROPIUM 0.5 MG/ALBUTEROL SULFATE 2.5 MG AMPUL.NEB 3 ML INHALATION ×6 (03:53→23:49)
[2023-06-19] MEDS: LORazepam INJ (*CRX) 2 MG/ML VIAL 1 MG IV PUSH ×3 (05:07→20:50)
[2023-06-19 05:19] LABS: Basophils Percent Auto 0.2 % (0.2-1.2); Eosinophils Percent Auto 0.2 % (0-4.4); Hematocrit 29.1 % (37.0-47.0); Hemoglobin 8.5 g/dL (12.0-15.0); Immature Granulocyte Absolute 0.04 K/mm3 (0.00-0.031); Immature Granulocyte Percent A 0.8 % (0-0.5); Lymphocytes Percent Auto 18.8 % (18.3-44.2); Mean Corpuscular HGB Conc 29.2 g/dl (32-36); Mean Corpuscular Hemoglobin 29.7 pg (26-34); Mean Corpuscular Volume 101.7 fl (80-100); Mean Platelet Volume 11.1 fl (7.4-10.4); Monocytes Absolute Auto 0.8 K/mm3 (0.1-0.6); Monocytes Percent Auto 14.1 % (2.6-8.5); Neutrophils Absolute Auto 3.5 K/mm3 (1.3-6.7); Neutrophils Percent Auto 65.9 % (45.5-73.1); Platelet Count Result 167 k/mm3 (150-375); Red Blood Count 2.86 M/mm3 (4.2-5.4); Red Cell Distribution Width 14.7 % (11.5-14.5); White Blood Count 5.3 K/mm3 (4.5-10.0)
[2023-06-19 05:40] LABS: Alanine Aminotransferase 9 U/L (6-35); Albumin Level 4.2 g/dL (3.5-5.1); Alkaline Phosphatase 105 U/L (38-126); Anion Gap 6 mmol/L (4-12); Aspartate Amino Transferase 16 U/L (14-36); Bilirubin,Total 0.5 mg/dL (0.2-1.3); Blood Urea Nitrogen 32 mg/dL (7-17); Calcium 9.4 mg/dL (8.4-10.2); Carbon Dioxide 37 mmol/L (22-30); Chloride 95 mmol/L (98-107); Estimated CRCL calculation 47 ml/min; Estimated Glomerular Filt Rate 34; Glucose 152 mg/dL (65-110); Magnesium 1.8 mg/dL (1.6-2.3); Potassium 3.7 mmol/L (3.4-5.0); Sodium 138 mmol/L (137-145)
[2023-06-19 05:50] LABS: Anisocytosis 1+; Hypochromasia 1+; Platelet Estimate Adequate (Adequate); Schistocytes None Seen
[2023-06-19 07:37] LABS: NT Pro B Type Natriuretic Pept 9200 pg/mL (19.9-100)
[2023-06-19] MEDS: BUDESONIDE RESPULE NEB 0.5 MG/2 ML AMP INHALATION ×2 (07:49→20:17)
[2023-06-19 08:23] LABS: Glucose Point of Care 136 mg/dl (65-105)
--- NOTE | 2023-06-19 08:58 | PM.PNPUL ---
Progress Note: A&P Assessment and Plan (1) Asthma-COPD overlap syndrome: Code(s): J44.89 - Other specified chronic obstructive pulmonary disease Status: Acute Assessment and Plan: Patient with 56 pack year tobacco use, mild centrilobular emphysema on her CT scan. Patient tells me she had respiratory issues in grade school and could not keep up with her friends during PE class. She denies wheezing. She was never told she had asthma. She was never on any inhaled medications in grade school. In high school she says she had limitations in PE class but that she could dance with her friends and was on limited during this dancing activity. Her real breathing difficulty started later in life when she gained weight and continued to smoke. 06/16/23: Long history of asthma with at least 60 lack years of smoking, none since 2010 when she quit and gained significaint weight. She is on Breo, prn albuterol, has not felt that inhalers do much for her. Much of her dyspnea is related with high BMI, anxiety, deconditioning. Will request records from her pulmonary doctor. 06/17/23: the patient states she is clinically about the same. She has shortness of breath when talking, I have decreased her oxygen to her baseline of 2 L. The patient tells me she is being followed for nodules by her heel packer in [facility] name to Dr. Adams. Plan: The patient has no active wheezing currently and I will change her Solu-Medrol to prednisone 40 q.day starting 06/18/2023, day 3 of steroids. I will continue DuoNebs q.4 hours. Patient is being treated for possible healthcare associated pneumonia, she is afebrile, no leukocytosis, multiple infiltrates on her chest x-ray and I will add Levaquin to her cefepime, day 3 antibiotics. I will discontinue her Advair inhaler as she is already on maximal beta agonists and high-dose systemic steroids. I will increase her guaifenesin to 1200 mg p.o. q.12 hours. Continue Cornet flutter valve and incentive spirometry. Out of bed as tolerated. 06/18/23: Set up in the chair for 5 hours yesterday and was breathing better when she sat up in the chair. She walked 12 ft with physical therapy. Patient had a cough last night that did keep her up. It was dry. She is afebrile. White blood cell count 4.1, creatinine 1.70, She had an overnight oximetry on 2 L nasal cannula with recording duration 6 hours and 19 minutes, average saturation 98%, low saturation 85%, time with saturation less than or equal to 88% was 0 minutes, oxygen desaturation index 7.8. When I enter the room she was on 2 L nasal cannula saturations 96%. I decreased her to 1 L nasal cannula her saturation after 6 minutes was 94%. Plan: Will continue to treat for asthma -COPD exacerbation with prednisone 40 mg q.day, day 4 of steroids, DuoNebs q.4 hours, guaifenesin 1200 mg p.o. b.i.d.. I will add nebulized budesonide 500 mcg b.i.d.. Agree with treatment for possible health care pneumonia with cefepime, day 4 and levofloxacin, day 2. Goal saturation 90-94%. Patient requires 2 L nasal cannula at night. Wean saturation during the day as tolerated. She will likely require more than 1 L oxygen with activity. 06/19/23: Patient improving. States her breathing is at normal. She still has a cough with no change and minimal phlegm production. Her white blood cell count is 5.3, creatinine is 1.50, her weight is 157.5 and she has diuresed 8.2 L since admission. BNP remains elevated at 9200 and has improved from 12,400. incentive spirometry while sitting in the chair was 1250. Saturations on 3 L nasal cannula 95%. I decreased her to 2 L. Plan: will discontinue prednisone 40 after today's dose, 5 days. Continue DuoNebs Q 4. Continue budesonide 500 mcg b.i.d., guaifenesin 1200 p.o. b.i.d.. Continue cefepime, day 5 and levofloxacin day 3. Goal saturations 90-94%. (2) Pulmonary hypertension: Code(s): I27.20 - Pulmonary hypertension, unspecified
[2023-06-19] MEDS: DOXEPIN HCL 25 MG CAPSULE PO ×2 (09:07→20:49)
[2023-06-19] MEDS: LOSARTAN POTASSIUM 12.5 MG TABLET PO (09:08)
[2023-06-19] MEDS: ATORVASTATIN 40 MG TABLET 80 MG PO (09:08)
[2023-06-19] MEDS: guaiFENesin 12 HR 600 MG TABCR 1200 MG PO ×2 (09:08→20:49)
[2023-06-19] MEDS: CARBIDOPA/LEVODOPA 25/100 MG TABLET 3 TABLET PO ×3 (09:08→18:13)
[2023-06-19] MEDS: levoFLOXacin 750 MG TABLET PO (09:08)
[2023-06-19] MEDS: EMPAGLIFLOZIN 10 MG TABLET PO (09:08)
[2023-06-19] MEDS: GABAPENTIN 100 MG CAPSULE PO ×3 (09:08→18:13)
[2023-06-19] MEDS: BUMETANIDE INJ 1 MG/4 ML VIAL 2 MG IV PUSH ×2 (09:09→18:13)
[2023-06-19] MEDS: predniSONE 20 MG TABLET 40 MG PO (09:09)
[2023-06-19] MEDS: OXcarbazepine 300 MG TABLET PO ×2 (09:09→20:48)
[2023-06-19] MEDS: APIXABAN 2.5 MG TABLET PO ×2 (09:09→20:48)
[2023-06-19] MEDS: allopurinoL 100 MG TABLET PO (09:09)
[2023-06-19] MEDS: PRIMIDONE 50 MG TABLET PO ×2 (09:09→20:49)
[2023-06-19] MEDS: PANTOPRAZOLE 40 MG TABLET PO (09:09)
[2023-06-19] MEDS: AMIODARONE HCL 200 MG TABLET BY MOUTH (09:09)
[2023-06-19] MEDS: FLUoxetine HCL 20 MG CAPSULE 40 MG PO ×2 (09:09→20:49)
[2023-06-19] MEDS: ALPRAZolam (*CRX) 0.5 MG TABLET 1 MG PO ×2 (10:55→18:13)
[2023-06-19 11:53] LABS: Glucose Point of Care 169 mg/dl (65-105)
--- NOTE | 2023-06-19 14:49 | P.PNIM_ITS ---
Progress Note: A&P Assessment and Plan (1) Acute on chronic respiratory failure with hypoxia and hypercapnia: Code(s): J96.21 - Acute and chronic respiratory failure with hypoxia; J96.22 - Acute and chronic respiratory failure with hypercapnia Status: Acute Assessment and Plan: * wears 2-3 L oxygen at all times, now on 2L * Patient needs education on CO2 retention * productive cough with green sputum and COPD hx * Cefepime and Levaquin * s/p prednisone * duo nebs q 4 hours * sputum culture ordered * IS and PEP therapy * Guaifenesin BID * procalcitonin 0.1 * Incentive spirometer * pulmonology following * CPAP/Trilogy/NIV * added Dulera b.i.d. * CT chest emphysema, chronic ILD * Apnea link overnight ordered * The patient is deemed unlikely to tolerate BiPAP * Multiple nodules noted on CT states she follows with gastroenterology nurse practitioner outpatient for follow-up recommends [address]/PET scan * PT/OT ordered for DC planning (2) Anemia: Qualifiers: Anemia type: due to chronic kidney disease Chronic kidney disease stage: stage 4 (severe) Qualified Code(s): N18.4 - Chronic kidney disease, stage 4 (severe); D63.1 - Anemia in chronic kidney disease Code(s): D64.9 - Anemia, unspecified Status: Acute Assessment and Plan: * Hemoglobin 7.3, no acute signs of bleeding * found to be deficient in B12 and was started on therapy * monitor H&H * Stable at 8.5 today (3) 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 (4) Parkinson disease: Code(s): G20 - Parkinson's disease Status: Chronic (5) Atrial fibrillation: Code(s): I48.91 - Unspecified atrial fibrillation Status: Chronic (6) Hyponatremia: Code(s): E87.1 - Hypo-osmolality and hyponatremia Status: Resolved (7) Obstructive sleep apnea: Code(s): G47.33 - Obstructive sleep apnea (adult) (pediatric) Status: Chronic Assessment and Plan: * cpap (8) Cutaneous abscess of perineum: Code(s): L02.215 - Cutaneous abscess of perineum Status: Acute (9) Pulmonary hypertension: Code(s): I27.20 - Pulmonary hypertension, unspecified Status: Acute Assessment and Plan: * prior echocardiogram in 2021 shows LVEF 60-65% with grade 1 diastolic dysfunction * chest x-ray with significant cardiomegaly and pulmonary edema suggest likely worsened function * ECHO LVEF 60-65 with moderate Pumonary HTN, normal diatsolic and sytolic function * Fluid restriction 1500 mL * Bumex 2 mg IV b.i.d. * watch chronic renal function/chronic hyponatremia/hypokalemia * De La Cruz in place for strict I&O (10) Type 2 diabetes mellitus: Qualifiers: Diabetes mellitus intermediate accountant insulin use: with intermediate accountant use Diabetes mellitus complication status: without complication Qualified Code(s): E11.9 - Type 2 diabetes mellitus without complications; Z79.4 - USP (current) use of insulin Code(s): E11.9 - Type 2 diabetes mellitus without complications Status: Chronic Assessment and Plan: * Accu-Cheks a.c. HS * sliding scale insulin * Hypoglycemia protocol * Holding Jardiance * A1C 9.3 * Will likely need something at discharge and follow with PCP for follow-up Plan HX AFIB: Resumed Eliquis NSR on Monitor HX Parkinson's: Resumed home medicati
--- NOTE | 2023-06-19 14:49 | PM.IMPN ---
Progress Note: A&P Assessment and Plan (1) Acute on chronic respiratory failure with hypoxia and hypercapnia: Code(s): J96.21 - Acute and chronic respiratory failure with hypoxia; J96.22 - Acute and chronic respiratory failure with hypercapnia Status: Acute Assessment and Plan: wears 2-3 L oxygen at all times, now on 2L Patient needs education on CO2 retention productive cough with green sputum and COPD hx Cefepime and Levaquin s/p prednisone duo nebs q 4 hours sputum culture ordered IS and PEP therapy Guaifenesin BID procalcitonin 0.1 Incentive spirometer pulmonology following CPAP/Trilogy/NIV added Dulera b.i.d. CT chest emphysema, chronic ILD Apnea link overnight ordered The patient is deemed unlikely to tolerate BiPAP Multiple nodules noted on CT states she follows with artificial fly tier outpatient for follow-up recommends [address]/PET scan PT/OT ordered for DC planning (2) Anemia: Qualifiers: Anemia type: due to chronic kidney disease Chronic kidney disease stage: stage 4 (severe) Qualified Code(s): N18.4 - Chronic kidney disease, stage 4 (severe); D63.1 - Anemia in chronic kidney disease Code(s): D64.9 - Anemia, unspecified Status: Acute Assessment and Plan: Hemoglobin 7.3, no acute signs of bleeding found to be deficient in B12 and was started on therapy monitor H&H Stable at 8.5 today (3) 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 (4) Parkinson disease: Code(s): G20 - Parkinson's disease Status: Chronic (5) Atrial fibrillation: Code(s): I48.91 - Unspecified atrial fibrillation Status: Chronic (6) Hyponatremia: Code(s): E87.1 - Hypo-osmolality and hyponatremia Status: Resolved (7) Obstructive sleep apnea: Code(s): G47.33 - Obstructive sleep apnea (adult) (pediatric) Status: Chronic Assessment and Plan: cpap (8) Cutaneous abscess of perineum: Code(s): L02.215 - Cutaneous abscess of perineum Status: Acute (9) Pulmonary hypertension: Code(s): I27.20 - Pulmonary hypertension, unspecified Status: Acute Assessment and Plan: prior echocardiogram in 2021 shows LVEF 60-65% with grade 1 diastolic dysfunction chest x-ray with significant cardiomegaly and pulmonary edema suggest likely worsened function ECHO LVEF 60-65 with moderate Pumonary HTN, normal diatsolic and sytolic function Fluid restriction 1500 mL Bumex 2 mg IV b.i.d. watch chronic renal function/chronic hyponatremia/hypokalemia De La Cruz in place for strict I&O (10) Type 2 diabetes mellitus: Qualifiers: Diabetes mellitus intermodal customer service insulin use: with penitentiary use Diabetes mellitus complication status: without complication Qualified Code(s): E11.9 - Type 2 diabetes mellitus without complications; Z79.4 - [facility] (current) use of insulin Code(s): E11.9 - Type 2 diabetes mellitus without complications Status: Chronic Assessment and Plan: Accu-Cheks a.c. HS sliding scale insulin Hypoglycemia protocol Holding Jardiance A1C 9.3 Will likely need something at discharge and follow with PCP for follow-up Plan HX AFIB: Resumed Eliquis NSR on Monitor HX Parkinson's: Resumed home medications HX Gout: resumed allopurinol Subjective Date/time seen: 06/19/23 14:49 Interval history: Patient sitting up to chair in no distress. Pulmonology following and patient would like to continue to see Dr. Evans. Will continue cefepime and Levaquin. Prednisone to be d/c after today. Continue Bumex as patient needs further diuresis. Review of Systems Review of Systems: All systems reviewed & are unremarkable except as noted in HPI and
[2023-06-19 17:07] LABS: Glucose Point of Care 181 mg/dl (65-105)
[2023-06-19] MEDS: HYDROcodone/acetaminophen (*CRX) 5-325 MG TABLET 1 TAB PO (20:48)
[2023-06-19] MEDS: QUEtiapine FUMARATE 25 MG TABLET PO (20:48)
[2023-06-19] MEDS: rOPINIRole HCL 0.5 MG TABLET PO (20:48)
[2023-06-19] MEDS: PRAZOSIN HCL 5 MG CAPSULE PO (20:48)
[2023-06-19 21:43] LABS: Glucose Point of Care 177 mg/dl (65-105)
[2023-06-20] VITALS (19 sets, daily range): BP systolic 125–152; BP diastolic 60–72; PULSE 74–111; RESP 17–20; TEMP 36–36.8; O2SAT 90–98
[2023-06-20] MEDS: CEFEPIME 2 GM/NS 50 ML 2 GM/50 ML BAG IVPB ×2 (02:53→14:29)
[2023-06-20] MEDS: ALPRAZolam (*CRX) 0.5 MG TABLET 1 MG PO ×3 (05:01→20:20)
[2023-06-20 05:32] LABS: Basophils Percent Auto 0.2 % (0.2-1.2); Eosinophils Percent Auto 0.6 % (0-4.4); Hematocrit 27.8 % (37.0-47.0); Hemoglobin 8.2 g/dL (12.0-15.0); Immature Granulocyte Absolute 0.05 K/mm3 (0.00-0.031); Lymphocytes Absolute Auto 1.06 K/mm3 (0.9-3.2); Lymphocytes Percent Auto 21.2 % (18.3-44.2); Mean Corpuscular HGB Conc 29.5 g/dl (32-36); Mean Corpuscular Hemoglobin 29.8 pg (26-34); Mean Corpuscular Volume 101.1 fl (80-100); Mean Platelet Volume 11.9 fl (7.4-10.4); Monocytes Absolute Auto 0.7 K/mm3 (0.1-0.6); Monocytes Percent Auto 14.6 % (2.6-8.5); Neutrophils Absolute Auto 3.1 K/mm3 (1.3-6.7); Neutrophils Percent Auto 62.4 % (45.5-73.1); Platelet Count Result 163 k/mm3 (150-375); Red Blood Count 2.75 M/mm3 (4.2-5.4); Red Cell Distribution Width 14.6 % (11.5-14.5)
[2023-06-20 05:43] LABS: Alanine Aminotransferase 6 U/L (6-35); Albumin Level 4.1 g/dL (3.5-5.1); Alkaline Phosphatase 98 U/L (38-126); Anion Gap 6 mmol/L (4-12); Aspartate Amino Transferase 14 U/L (14-36); Bilirubin,Total 0.5 mg/dL (0.2-1.3); Blood Urea Nitrogen 30 mg/dL (7-17); Calcium 9.2 mg/dL (8.4-10.2); Carbon Dioxide 35 mmol/L (22-30); Chloride 94 mmol/L (98-107); Estimated CRCL calculation 50 ml/min; Estimated Glomerular Filt Rate 37; Glucose 138 mg/dL (65-110); Magnesium 1.8 mg/dL (1.6-2.3); Potassium 3.5 mmol/L (3.4-5.0); Sodium 135 mmol/L (137-145)
[2023-06-20 05:56] LABS: Anisocytosis 1+; Platelet Estimate Adequate (Adequate); Schistocytes None Seen
[2023-06-20 08:23] LABS: Glucose Point of Care 137 mg/dl (65-105)
[2023-06-20] MEDS: BUDESONIDE RESPULE NEB 0.5 MG/2 ML AMP INHALATION ×2 (08:36→19:52)
[2023-06-20] MEDS: IPRATROPIUM 0.5 MG/ALBUTEROL SULFATE 2.5 MG AMPUL.NEB 3 ML INHALATION ×4 (08:36→19:53)
[2023-06-20] MEDS: ATORVASTATIN 40 MG TABLET 80 MG PO (09:07)
[2023-06-20] MEDS: PRIMIDONE 50 MG TABLET PO ×2 (09:07→20:22)
[2023-06-20] MEDS: guaiFENesin 12 HR 600 MG TABCR 1200 MG PO ×2 (09:07→20:21)
[2023-06-20] MEDS: EMPAGLIFLOZIN 10 MG TABLET PO (09:07)
[2023-06-20] MEDS: CARBIDOPA/LEVODOPA 25/100 MG TABLET 3 TABLET PO ×3 (09:07→17:36)
[2023-06-20] MEDS: OXcarbazepine 300 MG TABLET PO ×2 (09:07→20:21)
[2023-06-20] MEDS: LORazepam INJ (*CRX) 2 MG/ML VIAL 1 MG IV PUSH ×2 (09:08→17:36)
[2023-06-20] MEDS: BUMETANIDE INJ 1 MG/4 ML VIAL 2 MG IV PUSH ×2 (09:08→17:36)
[2023-06-20] MEDS: PANTOPRAZOLE 40 MG TABLET PO (09:08)
[2023-06-20] MEDS: GABAPENTIN 100 MG CAPSULE PO ×3 (09:08→17:36)
[2023-06-20] MEDS: APIXABAN 2.5 MG TABLET PO ×2 (09:08→20:21)
[2023-06-20] MEDS: LOSARTAN POTASSIUM 12.5 MG TABLET PO (09:08)
[2023-06-20] MEDS: FLUoxetine HCL 20 MG CAPSULE 40 MG PO ×2 (09:08→20:22)
[2023-06-20] MEDS: AMIODARONE HCL 200 MG TABLET BY MOUTH (09:08)
[2023-06-20] MEDS: allopurinoL 100 MG TABLET PO (09:08)
[2023-06-20] MEDS: DOXEPIN HCL 25 MG CAPSULE PO ×2 (09:08→20:21)
[2023-06-20 11:51] LABS: Glucose Point of Care 130 mg/dl (65-105)
[2023-06-20] MEDS: HYDROcodone/acetaminophen (*CRX) 5-325 MG TABLET 1 TAB PO (14:29)
--- NOTE | 2023-06-20 14:35 | P.PNIM_ITS ---
Progress Note: A&P Assessment and Plan (1) Acute on chronic respiratory failure with hypoxia and hypercapnia: Code(s): J96.21 - Acute and chronic respiratory failure with hypoxia; J96.22 - Acute and chronic respiratory failure with hypercapnia Status: Acute Assessment and Plan: * wears 2-3 L oxygen at all times, now on 2L * Patient needs education on CO2 retention * productive cough with green sputum and COPD hx * Cefepime and Levaquin * s/p prednisone * duo nebs q 4 hours * sputum culture ordered * IS and PEP therapy * Guaifenesin BID * procalcitonin 0.1 * Incentive spirometer * pulmonology following * CPAP/Trilogy/NIV * added Dulera b.i.d. * CT chest emphysema, chronic ILD * Apnea link overnight ordered, unable to obtain results * unlikely to tolerate BiPAP d/t Parkinsons * Multiple nodules noted on CT states she follows with bus starter outpatient for follow-up recommends [address]/PET scan * PT/OT ordered for DC planning (2) Anemia: Qualifiers: Anemia type: due to chronic kidney disease Chronic kidney disease stage: stage 4 (severe) Qualified Code(s): N18.4 - Chronic kidney disease, stage 4 (severe); D63.1 - Anemia in chronic kidney disease Code(s): D64.9 - Anemia, unspecified Status: Acute Assessment and Plan: * Hemoglobin 7.3, no acute signs of bleeding * found to be deficient in B12 and was started on therapy * monitor H&H * Stable at 8.2 today (3) 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 (4) Parkinson disease: Code(s): G20 - Parkinson's disease Status: Chronic (5) Atrial fibrillation: Code(s): I48.91 - Unspecified atrial fibrillation Status: Chronic Assessment and Plan: * continue Eliquis (6) Obstructive sleep apnea: Code(s): G47.33 - Obstructive sleep apnea (adult) (pediatric) Status: Chronic Assessment and Plan: * cpap ordered (7) Cutaneous abscess of perineum: Code(s): L02.215 - Cutaneous abscess of perineum Status: Acute (8) Pulmonary hypertension: Code(s): I27.20 - Pulmonary hypertension, unspecified Status: Acute Assessment and Plan: * prior echocardiogram in 2021 shows LVEF 60-65% with grade 1 diastolic dysfunction * chest x-ray with significant cardiomegaly and pulmonary edema suggest likely worsened function * ECHO LVEF 60-65 with moderate Pumonary HTN, normal diatsolic and sytolic function * Fluid restriction 1500 mL * Bumex 2 mg IV b.i.d. * watch chronic renal function/chronic hyponatremia/hypokalemia * De La Cruz in place for strict I&O (9) Type 2 diabetes mellitus: Qualifiers: Diabetes mellitus mcc insulin use: with supervisor intermediates use Diabetes mellitus complication status: without complication Qualified Code(s): E11.9 - Type 2 diabetes mellitus without complications; Z79.4 - care home (current) use of insulin Code(s): E11.9 - Type 2 diabetes mellitus without complications Status: Chronic Assessment and Plan: * Accu-Cheks a.c. HS * sliding scale insulin * Hypoglycemia protocol * Holding Jardiance * A1C 9.3 * Will likely need something at discharge and follow with PCP for follow-up Subjective Date/time seen: 06/20/23 14:35 Interval history: Patient sitting up to chair in no distress.
--- NOTE | 2023-06-20 14:35 | PM.IMPN ---
Progress Note: A&P Assessment and Plan (1) Acute on chronic respiratory failure with hypoxia and hypercapnia: Code(s): J96.21 - Acute and chronic respiratory failure with hypoxia; J96.22 - Acute and chronic respiratory failure with hypercapnia Status: Acute Assessment and Plan: wears 2-3 L oxygen at all times, now on 2L Patient needs education on CO2 retention productive cough with green sputum and COPD hx Cefepime and Levaquin s/p prednisone duo nebs q 4 hours sputum culture ordered IS and PEP therapy Guaifenesin BID procalcitonin 0.1 Incentive spirometer pulmonology following CPAP/Trilogy/NIV added Dulera b.i.d. 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 follows with clothing examiner outpatient for follow-up recommends [address]/PET scan PT/OT ordered for DC planning (2) Anemia: Qualifiers: Anemia type: due to chronic kidney disease Chronic kidney disease stage: stage 4 (severe) Qualified Code(s): N18.4 - Chronic kidney disease, stage 4 (severe); D63.1 - Anemia in chronic kidney disease Code(s): D64.9 - Anemia, unspecified Status: Acute Assessment and Plan: Hemoglobin 7.3, no acute signs of bleeding found to be deficient in B12 and was started on therapy monitor H&H Stable at 8.2 today (3) 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 (4) Parkinson disease: Code(s): G20 - Parkinson's disease Status: Chronic (5) Atrial fibrillation: Code(s): I48.91 - Unspecified atrial fibrillation Status: Chronic Assessment and Plan: continue Eliquis (6) Obstructive sleep apnea: Code(s): G47.33 - Obstructive sleep apnea (adult) (pediatric) Status: Chronic Assessment and Plan: cpap ordered (7) Cutaneous abscess of perineum: Code(s): L02.215 - Cutaneous abscess of perineum Status: Acute (8) Pulmonary hypertension: Code(s): I27.20 - Pulmonary hypertension, unspecified Status: Acute Assessment and Plan: prior echocardiogram in 2021 shows LVEF 60-65% with grade 1 diastolic dysfunction chest x-ray with significant cardiomegaly and pulmonary edema suggest likely worsened function ECHO LVEF 60-65 with moderate Pumonary HTN, normal diatsolic and sytolic function Fluid restriction 1500 mL Bumex 2 mg IV b.i.d. watch chronic renal function/chronic hyponatremia/hypokalemia De La Cruz in place for strict I&O (9) Type 2 diabetes mellitus: Qualifiers: Diabetes mellitus supervisor intermediates insulin use: with long-term use Diabetes mellitus complication status: without complication Qualified Code(s): E11.9 - Type 2 diabetes mellitus without complications; Z79.4 - alf (current) use of insulin Code(s): E11.9 - Type 2 diabetes mellitus without complications Status: Chronic Assessment and Plan: Accu-Cheks a.c. HS sliding scale insulin Hypoglycemia protocol Holding Jardiance A1C 9.3 Will likely need something at discharge and follow with PCP for follow-up Subjective Date/time seen: 06/20/23 14:35 Interval history: Patient sitting up to chair in no distress. Will continue cefepime and Levaquin. Continue Bumex, patient is down 8 lbs today. CC following for d/c planning as patient does not want to return to [facility]. Review of Systems Review of Systems: All systems reviewed & are unremarkable except as noted in HPI and below Exam Narrative: General: Ill-appearing, appears dyspneic, appears older than stated age acutely chronically ill HEENT: normocephalic, atraumatic. Mucous membranes moist. E
--- NOTE | 2023-06-20 16:07 | PM.PNPUL ---
Progress Note: A&P Assessment and Plan (1) Pulmonary edema cardiac cause: Code(s): I50.1 - Left ventricular failure, unspecified Status: Acute (2) Parkinson disease: Code(s): G20 - Parkinson's disease Status: Chronic (3) Type 2 diabetes mellitus: Qualifiers: Diabetes mellitus mcfp insulin use: with continuous churn buttermaker use Diabetes mellitus complication status: without complication Qualified Code(s): E11.9 - Type 2 diabetes mellitus without complications; Z79.4 - halfway (current) use of insulin Code(s): E11.9 - Type 2 diabetes mellitus without complications Status: Chronic (4) Heart failure with preserved ejection fraction: Code(s): I50.30 - Unspecified diastolic (congestive) heart failure Status: Chronic (5) Asthma-COPD overlap syndrome: Code(s): J44.89 - Other specified chronic obstructive pulmonary disease Status: Acute (6) Pulmonary hypertension: Code(s): I27.20 - Pulmonary hypertension, unspecified Status: Acute (7) CHF exacerbation: Code(s): I50.9 - Heart failure, unspecified Status: Acute (8) Acute on chronic respiratory failure with hypoxia and hypercapnia: Code(s): J96.21 - Acute and chronic respiratory failure with hypoxia; J96.22 - Acute and chronic respiratory failure with hypercapnia Status: Acute Assessment and Plan: This 72-year-old female with history of morbid obesity, documented obstructive sleep apnea on no treatment possible history of asthma COPD overlap treatment presented with shortness of breath. Initial chest imaging studies showed cardiomegaly and some pulmonary congestion. The patient has improved following treatment with diuretics and also treatment for possible asthma COPD overlap syndrome. Currently she is on just supplemental oxygen. She has history of moderate obstructive sleep apnea but has not been using CPAP support over the years due to difficulty getting used to facial mask. She has history of Parkinson disease and is a question of aspiration. Recent overnight oximetry on 2 liters/minute showed no evidence of oxyhemoglobin desaturation. Had a lengthy discussion with the patient regarding management of her obstructive sleep apnea. Patient indicated that she is not willing to to try CPAP treatment following sleep study. She has evidence of a pulmonary hypertension on last echocardiogram and also evidence of enlarged left atrium. Plan: Video swallow to exclude dysphagia with aspiration. Continue with same treatment supplemental oxygen out of bed to chair diuretics for congestive heart failure and also treatment for asthma COPD overlap syndrome. Subjective Date/time seen: 06/20/23 16:07 Interval history: Patient has no new respiratory symptoms. Her respiratory status has improved following treatment with diuretics, supplemental oxygen, also receiving treatment with steroids for possible asthma COPD overlap syndrome. Patient has a known history of sleep apnea. Sleep study done in 2010 showed moderate obstructive sleep apnea; patient was successfully titrated to CPAP 10 cm of water pressure. Patient has not been using CPAP because of a difficulty getting used to face mask. She has history of Parkinson's disease and there is a question of aspiration as she coughs while eating. Initial chest x-ray showed cardiomegaly with lung congestion. Repeat chest x-ray showed some improvement. Review of Systems Review of Systems: All systems reviewed & are unremarkable except as noted in HPI and below (HPI and below) Exam Narrative: GEN: Alert, oriented, intense anxiety, afraid that she is dying; she is overwhelmed with many people in her room when a Rapid Response was called. HEENT: pupils are equal, EOMI, symmetrical face; oral membranes moist, Mallampati III airway NECK: Trachea is midline CHEST: Equal air entry, symmetric excursion, ray crackles at bases posteriorly CV: Regular
[2023-06-20 17:03] LABS: Glucose Point of Care 148 mg/dl (65-105)
[2023-06-20] MEDS: PRAZOSIN HCL 5 MG CAPSULE PO (20:21)
[2023-06-20] MEDS: rOPINIRole HCL 0.5 MG TABLET PO (20:21)
[2023-06-20] MEDS: QUEtiapine FUMARATE 25 MG TABLET PO (20:21)
[2023-06-20 21:49] LABS: Glucose Point of Care 145 mg/dl (65-105)
[2023-06-21] VITALS (24 sets, daily range): BP systolic 138–149; BP diastolic 66–75; PULSE 69–110; RESP 17–20; TEMP 36.5–36.8; O2SAT 96–100
[2023-06-21] MEDS: IPRATROPIUM 0.5 MG/ALBUTEROL SULFATE 2.5 MG AMPUL.NEB 3 ML INHALATION ×6 (00:20→23:56)
[2023-06-21] MEDS: CEFEPIME 2 GM/NS 50 ML 2 GM/50 ML BAG IVPB (02:20)
[2023-06-21 04:56] LABS: Basophils Percent Auto 0.4 % (0.2-1.2); Eosinophils Absolute Auto 0.3 K/mm3 (0-0.3); Eosinophils Percent Auto 5.7 % (0-4.4); Hematocrit 25.7 % (37.0-47.0); Hemoglobin 7.8 g/dL (12.0-15.0); Immature Granulocyte Absolute 0.05 K/mm3 (0.00-0.031); Lymphocytes Absolute Auto 1.12 K/mm3 (0.9-3.2); Lymphocytes Percent Auto 22.9 % (18.3-44.2); Mean Corpuscular HGB Conc 30.4 g/dl (32-36); Mean Corpuscular Hemoglobin 30.1 pg (26-34); Mean Corpuscular Volume 99.2 fl (80-100); Mean Platelet Volume 11.8 fl (7.4-10.4); Monocytes Absolute Auto 0.6 K/mm3 (0.1-0.6); Monocytes Percent Auto 12.7 % (2.6-8.5); Neutrophils Absolute Auto 2.8 K/mm3 (1.3-6.7); Neutrophils Percent Auto 57.3 % (45.5-73.1); Platelet Count Result 154 k/mm3 (150-375); Red Blood Count 2.59 M/mm3 (4.2-5.4); Red Cell Distribution Width 14.7 % (11.5-14.5); White Blood Count 4.9 K/mm3 (4.5-10.0)
[2023-06-21 05:07] LABS: Albumin Level 3.7 g/dL (3.5-5.1); Alkaline Phosphatase 93 U/L (38-126); Anion Gap 4 mmol/L (4-12); Aspartate Amino Transferase 15 U/L (14-36); Bilirubin,Total 0.5 mg/dL (0.2-1.3); Blood Urea Nitrogen 25 mg/dL (7-17); Calcium 9.1 mg/dL (8.4-10.2); Carbon Dioxide 37 mmol/L (22-30); Chloride 95 mmol/L (98-107); Estimated CRCL calculation 48 ml/min; Estimated Glomerular Filt Rate 37; Glucose 117 mg/dL (65-110); Magnesium 1.6 mg/dL (1.6-2.3); Potassium 3.2 mmol/L (3.4-5.0); Sodium 136 mmol/L (137-145)
[2023-06-21 05:13] LABS: Alanine Aminotransferase < 6 U/L (6-35)
[2023-06-21] MEDS: BUDESONIDE RESPULE NEB 0.5 MG/2 ML AMP INHALATION ×2 (07:56→20:38)
[2023-06-21] MEDS: LOSARTAN POTASSIUM 12.5 MG TABLET PO (08:23)
[2023-06-21] MEDS: PANTOPRAZOLE 40 MG TABLET PO (08:23)
[2023-06-21] MEDS: DOXEPIN HCL 25 MG CAPSULE PO ×2 (08:24→21:26)
[2023-06-21] MEDS: ATORVASTATIN 40 MG TABLET 80 MG PO (08:24)
[2023-06-21] MEDS: AMIODARONE HCL 200 MG TABLET BY MOUTH (08:24)
[2023-06-21] MEDS: CARBIDOPA/LEVODOPA 25/100 MG TABLET 3 TABLET PO ×3 (08:24→17:08)
[2023-06-21] MEDS: FLUoxetine HCL 20 MG CAPSULE 40 MG PO ×2 (08:24→21:27)
[2023-06-21] MEDS: GABAPENTIN 100 MG CAPSULE PO ×3 (08:24→17:08)
[2023-06-21] MEDS: levoFLOXacin 750 MG TABLET PO (08:24)
[2023-06-21] MEDS: PRIMIDONE 50 MG TABLET PO ×2 (08:25→21:25)
[2023-06-21] MEDS: APIXABAN 2.5 MG TABLET PO ×2 (08:25→21:25)
[2023-06-21] MEDS: allopurinoL 100 MG TABLET PO (08:25)
[2023-06-21] MEDS: EMPAGLIFLOZIN 10 MG TABLET PO (08:25)
[2023-06-21] MEDS: guaiFENesin 12 HR 600 MG TABCR 1200 MG PO ×2 (08:25→21:25)
[2023-06-21] MEDS: OXcarbazepine 300 MG TABLET PO ×2 (08:25→21:25)
[2023-06-21] MEDS: polyethylene glycoL 3350 17 GM POWD.PACK PO (08:26)
[2023-06-21] MEDS: ALPRAZolam (*CRX) 0.5 MG TABLET 1 MG PO ×2 (08:27→15:01)
[2023-06-21 08:37] LABS: Glucose Point of Care 141 mg/dl (65-105)
[2023-06-21] MEDS: BUMETANIDE INJ 1 MG/4 ML VIAL 2 MG IV PUSH ×2 (08:41→17:08)
--- NOTE | 2023-06-21 10:20 | PCNWS ---
Weekly nutritional screen. Patient is tolerating current diet with adequate intake. No weight loss reported. No nutritional needs at this time.
--- NOTE | 2023-06-21 10:22 | PM.PNPUL ---
Progress Note: A&P Assessment and Plan (1) Pulmonary edema cardiac cause: Code(s): I50.1 - Left ventricular failure, unspecified Status: Acute (2) Parkinson disease: Code(s): G20 - Parkinson's disease Status: Chronic (3) Type 2 diabetes mellitus: Qualifiers: Diabetes mellitus group home insulin use: with terminal superintendent use Diabetes mellitus complication status: without complication Qualified Code(s): E11.9 - Type 2 diabetes mellitus without complications; Z79.4 - snf (current) use of insulin Code(s): E11.9 - Type 2 diabetes mellitus without complications Status: Chronic (4) Heart failure with preserved ejection fraction: Code(s): I50.30 - Unspecified diastolic (congestive) heart failure Status: Chronic (5) Asthma-COPD overlap syndrome: Code(s): J44.89 - Other specified chronic obstructive pulmonary disease Status: Acute (6) Pulmonary hypertension: Code(s): I27.20 - Pulmonary hypertension, unspecified Status: Acute (7) CHF exacerbation: Code(s): I50.9 - Heart failure, unspecified Status: Acute (8) Acute on chronic respiratory failure with hypoxia and hypercapnia: Code(s): J96.21 - Acute and chronic respiratory failure with hypoxia; J96.22 - Acute and chronic respiratory failure with hypercapnia Status: Acute Assessment and Plan: The patient, a 72-year-old woman with morbid obesity, untreated obstructive sleep apnea, and a potential history of asthma COPD overlap syndrome, reported experiencing shortness of breath. Initial chest scans revealed cardiomegaly and some pulmonary congestion. Her condition has improved following diuretic treatment and potential asthma COPD overlap syndrome treatment. She is currently only on supplemental oxygen. Despite her history of moderate obstructive sleep apnea, she has not used CPAP support due to discomfort with the face mask. She also has a history of Parkinson's disease and potential aspiration. An overnight oximetry test on 2 liters/minute showed no signs of oxyhemoglobin desaturation. The patient indicated during an extensive discussion about her obstructive sleep apnea management that she is unwilling to try CPAP treatment after a sleep study. Her most recent echocardiogram showed signs of pulmonary hypertension and an enlarged left atrium. These findings, combined with bilateral pleural effusions and elevated proBNP, suggest that congestive heart failure led to her current hospitalization. Plan: Conduct a video swallow test to rule out dysphagia with aspiration. Continue the current treatment of supplemental oxygen from bed to chair, diuretics for congestive heart failure, and treatment for potential asthma COPD overlap syndrome. Currently, she is not on oral steroids. I have stopped the antibiotics initially prescribed for potential pneumonia. Concerning the lung nodules, the patient will need a follow-up chest CT scan in approximately 6-8 months on an outpatient basis. Also need to address repeat sleep study on an outpatient basis. (9) Lung nodules: Code(s): R91.8 - Other nonspecific abnormal finding of lung field Status: Acute Subjective Date/time seen: 06/21/23 10:22 Interval history: Patient has no new respiratory symptoms. Her respiratory status has improved following treatment with diuretics, supplemental oxygen, also receiving treatment with steroids for possible asthma COPD overlap syndrome. Patient has a known history of sleep apnea. Sleep study done in 2010 showed moderate obstructive sleep apnea; patient was successfully titrated to CPAP 10 cm of water pressure. Patient has not been using CPAP because of a difficulty getting used to face mask. She has history of Parkinson's disease and there is a question of aspiration as she coughs while eating. Initial chest x-ray showed cardiomegaly with lung congestion. Repeat chest x-ray showed some improvement. Alice
--- NOTE | 2023-06-21 10:47 | PCSTNOTE ---
Addendum entered by Soheila Young, PROJECT [employer]S SPECIALIST 06/21/23 10:58: Message left with Dr. Swanson's nurse. Original Note: Order received for modified barium swallow study. Patient's body weight exceeds limits for chair. In addition, space allowed for shoulders is 18 inches which patient's shoulder width exceeds. Physician contacted.
[2023-06-21] MEDS: LACTULOSE 20 GM/30 ML UDC PO ×2 (12:11→17:09)
[2023-06-21] MEDS: LORazepam INJ (*CRX) 2 MG/ML VIAL 1 MG IV PUSH ×2 (12:12→21:24)
[2023-06-21 12:14] LABS: Glucose Point of Care 146 mg/dl (65-105)
--- NOTE | 2023-06-21 13:18 | P.PNIM_ITS ---
Progress Note: A&P Assessment and Plan (1) Acute on chronic respiratory failure with hypoxia and hypercapnia: Code(s): J96.21 - Acute and chronic respiratory failure with hypoxia; J96.22 - Acute and chronic respiratory failure with hypercapnia Status: Acute Assessment and Plan: * Patient is gradually improving. Patient is requiring less oxygen. * Plan is to continue with antibiotics for now and monitor closely. * (2) Anemia: Qualifiers: Anemia type: due to chronic kidney disease Chronic kidney disease stage: stage 4 (severe) Qualified Code(s): N18.4 - Chronic kidney disease, stage 4 (severe); D63.1 - Anemia in chronic kidney disease Code(s): D64.9 - Anemia, unspecified Status: Acute Assessment and Plan: * Hemoglobin stable, no acute signs of bleeding * found to be deficient in B12 and was started on therapy * monitor H&H (3) 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 (4) Parkinson disease: Code(s): G20 - Parkinson's disease Status: Chronic Assessment and Plan: Continue with current treatment start physical therapy. (5) Atrial fibrillation: Code(s): I48.91 - Unspecified atrial fibrillation Status: Chronic Assessment and Plan: * continue Eliquis, heart rate is controlled. (6) Obstructive sleep apnea: Code(s): G47.33 - Obstructive sleep apnea (adult) (pediatric) Status: Chronic Assessment and Plan: * cpap ordered (7) Cutaneous abscess of perineum: Code(s): L02.215 - Cutaneous abscess of perineum Status: Acute Assessment and Plan: Continue antibiotics. (8) Pulmonary hypertension: Code(s): I27.20 - Pulmonary hypertension, unspecified Status: Acute Assessment and Plan: * prior echocardiogram in 2021 shows LVEF 60-65% with grade 1 diastolic dysfunction * chest x-ray with significant cardiomegaly and pulmonary edema suggest likely worsened function * ECHO LVEF 60-65 with moderate Pumonary HTN, normal diatsolic and sytolic function * Fluid restriction 1500 mL * Bumex 2 mg IV b.i.d. * watch chronic renal function/chronic hyponatremia/hypokalemia * De La Cruz in place for strict I&O (9) Type 2 diabetes mellitus: Qualifiers: Diabetes mellitus group home insulin use: with petroleum terminal plant operator use Diabetes mellitus complication status: without complication Qualified Code(s): E11.9 - Type 2 diabetes mellitus without complications; Z79.4 - detention (current) use of insulin Code(s): E11.9 - Type 2 diabetes mellitus without complications Status: Chronic Assessment and Plan: * Stable on current medication commode will continue current treatment. Plan Full code DVT prophylaxis ordered Plan is to continue current treatment, increase activity as tolerated. Possible discharge over the weekend. Subjective Date/time seen: 06/21/23 13:18 Interval history: Patient was seen during rounds today. Patient breathing is much better. No chest pain. No abdominal pain, nausea, no vomiting. Mood stable. 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
--- NOTE | 2023-06-21 13:18 | PM.IMPN ---
Progress Note: A&P Assessment and Plan (1) Acute on chronic respiratory failure with hypoxia and hypercapnia: Code(s): J96.21 - Acute and chronic respiratory failure with hypoxia; J96.22 - Acute and chronic respiratory failure with hypercapnia Status: Acute Assessment and Plan: Patient is gradually improving. Patient is requiring less oxygen. Plan is to continue with antibiotics for now and monitor closely. (2) Anemia: Qualifiers: Anemia type: due to chronic kidney disease Chronic kidney disease stage: stage 4 (severe) Qualified Code(s): N18.4 - Chronic kidney disease, stage 4 (severe); D63.1 - Anemia in chronic kidney disease Code(s): D64.9 - Anemia, unspecified Status: Acute Assessment and Plan: Hemoglobin stable, no acute signs of bleeding found to be deficient in B12 and was started on therapy monitor H&H (3) 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 (4) Parkinson disease: Code(s): G20 - Parkinson's disease Status: Chronic Assessment and Plan: Continue with current treatment start physical therapy. (5) Atrial fibrillation: Code(s): I48.91 - Unspecified atrial fibrillation Status: Chronic Assessment and Plan: continue Eliquis, heart rate is controlled. (6) Obstructive sleep apnea: Code(s): G47.33 - Obstructive sleep apnea (adult) (pediatric) Status: Chronic Assessment and Plan: cpap ordered (7) Cutaneous abscess of perineum: Code(s): L02.215 - Cutaneous abscess of perineum Status: Acute Assessment and Plan: Continue antibiotics. (8) Pulmonary hypertension: Code(s): I27.20 - Pulmonary hypertension, unspecified Status: Acute Assessment and Plan: prior echocardiogram in 2021 shows LVEF 60-65% with grade 1 diastolic dysfunction chest x-ray with significant cardiomegaly and pulmonary edema suggest likely worsened function ECHO LVEF 60-65 with moderate Pumonary HTN, normal diatsolic and sytolic function Fluid restriction 1500 mL Bumex 2 mg IV b.i.d. watch chronic renal function/chronic hyponatremia/hypokalemia De La Cruz in place for strict I&O (9) Type 2 diabetes mellitus: Qualifiers: Diabetes mellitus usp insulin use: with usp use Diabetes mellitus complication status: without complication Qualified Code(s): E11.9 - Type 2 diabetes mellitus without complications; Z79.4 - terminal operator (current) use of insulin Code(s): E11.9 - Type 2 diabetes mellitus without complications Status: Chronic Assessment and Plan: Stable on current medication commode will continue current treatment. Plan Full code DVT prophylaxis ordered Plan is to continue current treatment, increase activity as tolerated. Possible discharge over the weekend. Subjective Date/time seen: 06/21/23 13:18 Interval history: Patient was seen during rounds today. Patient breathing is much better. No chest pain. No abdominal pain, nausea, no vomiting. Mood stable. Review of Systems Review of Systems: All systems reviewed & are unremarkable except as noted in HPI and below Exam Narrative: General: Ill-appearing, appears dyspneic, appears older than stated age acutely chronically ill HEENT: normocephalic, atraumatic. Mucous membranes moist. EOMI, PERRLA Respiratory: Air entry is better. Cardiovascular: RRR, normal S1-S2 upon auscultation. No murmurs, rubs, or clicks. Abdomen: Soft, round, nondistended and nontender. Bowel sounds present to all four quadrants. Extremities: No cyanosis, clubbing. Improving, 2+ pitting edema to LLE. Pulses are palpable 2/2. Neuro: Alert and orientated x 4. Cranial nerves 2-12 intact without focal defici
[2023-06-21] MEDS: ACETAMINOPHEN 325 MG TABLET 650 MG BY MOUTH (15:01)
[2023-06-21 17:08] LABS: Glucose Point of Care 134 mg/dl (65-105)
[2023-06-21 20:07] LABS: Glucose Point of Care 139 mg/dl (65-105)
[2023-06-21 20:46] LABS: Glucose Point of Care 166 mg/dl (65-105)
[2023-06-21] MEDS: PRAZOSIN HCL 5 MG CAPSULE PO (21:25)
[2023-06-21] MEDS: rOPINIRole HCL 0.5 MG TABLET PO (21:26)
[2023-06-21] MEDS: QUEtiapine FUMARATE 25 MG TABLET PO (21:26)
[2023-06-22] VITALS (18 sets, daily range): BP systolic 117–148; BP diastolic 60–69; PULSE 88–117; RESP 16–20; TEMP 36.4–37.2; O2SAT 94–100
[2023-06-22 05:47] LABS: Basophils Absolute Auto 0.1 K/mm3 (0.0-0.1); Basophils Percent Auto 0.9 % (0.2-1.2); Eosinophils Absolute Auto 0.4 K/mm3 (0-0.3); Eosinophils Percent Auto 7.3 % (0-4.4); Hematocrit 28.1 % (37.0-47.0); Hemoglobin 8.2 g/dL (12.0-15.0); Immature Granulocyte Absolute 0.07 K/mm3 (0.00-0.031); Immature Granulocyte Percent A 1.3 % (0-0.5); Lymphocytes Absolute Auto 0.89 K/mm3 (0.9-3.2); Lymphocytes Percent Auto 16.2 % (18.3-44.2); Mean Corpuscular HGB Conc 29.2 g/dl (32-36); Mean Corpuscular Hemoglobin 29.1 pg (26-34); Mean Corpuscular Volume 99.6 fl (80-100); Mean Platelet Volume 11.4 fl (7.4-10.4); Monocytes Absolute Auto 0.6 K/mm3 (0.1-0.6); Monocytes Percent Auto 11.5 % (2.6-8.5); Neutrophils Absolute Auto 3.5 K/mm3 (1.3-6.7); Neutrophils Percent Auto 62.8 % (45.5-73.1); Platelet Count Result 177 k/mm3 (150-375); Red Blood Count 2.82 M/mm3 (4.2-5.4); Red Cell Distribution Width 14.5 % (11.5-14.5); White Blood Count 5.5 K/mm3 (4.5-10.0)
[2023-06-22] MEDS: LORazepam INJ (*CRX) 2 MG/ML VIAL 1 MG IV PUSH ×2 (06:01→13:15)
[2023-06-22 06:03] LABS: Alanine Aminotransferase 6 U/L (6-35); Albumin Level 3.7 g/dL (3.5-5.1); Alkaline Phosphatase 95 U/L (38-126); Anion Gap 3 mmol/L (4-12); Aspartate Amino Transferase 15 U/L (14-36); Bilirubin,Total 0.5 mg/dL (0.2-1.3); Blood Urea Nitrogen 22 mg/dL (7-17); Calcium 8.8 mg/dL (8.4-10.2); Carbon Dioxide 37 mmol/L (22-30); Chloride 94 mmol/L (98-107); Estimated CRCL calculation 46 ml/min; Estimated Glomerular Filt Rate 37; Glucose 125 mg/dL (65-110); Potassium 3.2 mmol/L (3.4-5.0); Sodium 134 mmol/L (137-145)
[2023-06-22 06:57] LABS: Hypochromasia 2+; Platelet Estimate Adequate (Adequate); Schistocytes None Seen
[2023-06-22] MEDS: BUDESONIDE RESPULE NEB 0.5 MG/2 ML AMP INHALATION ×2 (08:06→20:49)
[2023-06-22] MEDS: IPRATROPIUM 0.5 MG/ALBUTEROL SULFATE 2.5 MG AMPUL.NEB 3 ML INHALATION ×4 (08:06→20:49)
[2023-06-22 08:21] LABS: Glucose Point of Care 136 mg/dl (65-105)
[2023-06-22] MEDS: polyethylene glycoL 3350 17 GM POWD.PACK PO (09:33)
[2023-06-22] MEDS: CARBIDOPA/LEVODOPA 25/100 MG TABLET 3 TABLET PO ×3 (09:33→18:15)
[2023-06-22] MEDS: EMPAGLIFLOZIN 10 MG TABLET PO (09:34)
[2023-06-22] MEDS: guaiFENesin 12 HR 600 MG TABCR 1200 MG PO ×2 (09:34→21:23)
[2023-06-22] MEDS: AMIODARONE HCL 200 MG TABLET BY MOUTH (09:34)
[2023-06-22] MEDS: APIXABAN 2.5 MG TABLET PO ×2 (09:34→21:23)
[2023-06-22] MEDS: LOSARTAN POTASSIUM 12.5 MG TABLET PO (09:34)
[2023-06-22] MEDS: PANTOPRAZOLE 40 MG TABLET PO (09:34)
[2023-06-22] MEDS: allopurinoL 100 MG TABLET PO (09:34)
[2023-06-22] MEDS: DOXEPIN HCL 25 MG CAPSULE PO ×2 (09:34→21:23)
[2023-06-22] MEDS: OXcarbazepine 300 MG TABLET PO ×2 (09:34→21:23)
[2023-06-22] MEDS: PRIMIDONE 50 MG TABLET PO ×2 (09:34→21:23)
[2023-06-22] MEDS: FLUoxetine HCL 20 MG CAPSULE 40 MG PO ×2 (09:34→21:23)
[2023-06-22] MEDS: GABAPENTIN 100 MG CAPSULE PO ×3 (09:34→18:16)
[2023-06-22] MEDS: ATORVASTATIN 40 MG TABLET 80 MG PO (09:34)
[2023-06-22] MEDS: BUMETANIDE INJ 1 MG/4 ML VIAL 2 MG IV PUSH (09:35)
--- NOTE | 2023-06-22 10:51 | P.PNIM_ITS ---
Progress Note: A&P Assessment and Plan (1) Acute on chronic respiratory failure with hypoxia and hypercapnia: Code(s): J96.21 - Acute and chronic respiratory failure with hypoxia; J96.22 - Acute and chronic respiratory failure with hypercapnia Status: Acute Assessment and Plan: * Patient is gradually improving. Patient is requiring less oxygen. * Plan is to continue with antibiotics for now and monitor closely. (2) Anemia: Qualifiers: Anemia type: due to chronic kidney disease Chronic kidney disease stage: stage 4 (severe) Qualified Code(s): N18.4 - Chronic kidney disease, stage 4 (severe); D63.1 - Anemia in chronic kidney disease Code(s): D64.9 - Anemia, unspecified Status: Acute Assessment and Plan: * Hemoglobin stable, no acute signs of bleeding * found to be deficient in B12 and was started on therapy * monitor H&H (3) 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 06/21: potassium 3.2, replace orally and recheck daily labs (4) Parkinson disease: Code(s): G20 - Parkinson's disease Status: Chronic Assessment and Plan: Continue with current treatment start physical therapy. (5) Atrial fibrillation: Code(s): I48.91 - Unspecified atrial fibrillation Status: Chronic Assessment and Plan: 06/21: * continue Eliquis, heart rate borderline RVR, will give afternoon dose metoprolol and begin extended release metoprolol tomorrow (6) Obstructive sleep apnea: Code(s): G47.33 - Obstructive sleep apnea (adult) (pediatric) Status: Chronic Assessment and Plan: * cpap ordered (7) Cutaneous abscess of perineum: Code(s): L02.215 - Cutaneous abscess of perineum Status: Acute Assessment and Plan: Continue antibiotics. (8) Pulmonary hypertension: Code(s): I27.20 - Pulmonary hypertension, unspecified Status: Acute Assessment and Plan: * prior echocardiogram in 2021 shows LVEF 60-65% with grade 1 diastolic dysfunc tion * chest x-ray with significant cardiomegaly and pulmonary edema suggest likely worsened function * ECHO LVEF 60-65 with moderate Pumonary HTN, normal diatsolic and sytolic function * Fluid restriction 1500 mL * Bumex 2 mg IV b.i.d. * watch chronic renal function/chronic hyponatremia/hypokalemia * De La Cruz in place for strict I&O 06/21: change diuresis to oral Bumex and metolazone, increased fluid restriction to 1800 mL so patient can have Jell-O (9) Type 2 diabetes mellitus: Qualifiers: Diabetes mellitus long-term insulin use: with pomology teacher use Diabetes mellitus complication status: without complication Qualified Code(s): E11.9 - Type 2 diabetes mellitus without complications; Z79.4 - longterm (current) use of insulin Code(s): E11.9 - Type 2 diabetes mellitus without complications Status: Chronic Assessment and Plan: * Stable on current medication commode will continue current treatment. Plan Full code DVT prophylaxis ordered Plan is to change diuretics to oral, increase activity as tolerated. Possible discharge tomorrow or Saturday depending on SNF availability Time Spent With Patient Time with patient: Greater than 35 minutes Subjective Date/time seen: 06/22/23 10:51 Interval history: Patient reports that she is breathing much better an
--- NOTE | 2023-06-22 10:51 | PM.IMPN ---
Progress Note: A&P Assessment and Plan (1) Acute on chronic respiratory failure with hypoxia and hypercapnia: Code(s): J96.21 - Acute and chronic respiratory failure with hypoxia; J96.22 - Acute and chronic respiratory failure with hypercapnia Status: Acute Assessment and Plan: Patient is gradually improving. Patient is requiring less oxygen. Plan is to continue with antibiotics for now and monitor closely. (2) Anemia: Qualifiers: Anemia type: due to chronic kidney disease Chronic kidney disease stage: stage 4 (severe) Qualified Code(s): N18.4 - Chronic kidney disease, stage 4 (severe); D63.1 - Anemia in chronic kidney disease Code(s): D64.9 - Anemia, unspecified Status: Acute Assessment and Plan: Hemoglobin stable, no acute signs of bleeding found to be deficient in B12 and was started on therapy monitor H&H (3) 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 06/21: potassium 3.2, replace orally and recheck daily labs (4) Parkinson disease: Code(s): G20 - Parkinson's disease Status: Chronic Assessment and Plan: Continue with current treatment start physical therapy. (5) Atrial fibrillation: Code(s): I48.91 - Unspecified atrial fibrillation Status: Chronic Assessment and Plan: 06/21: continue Eliquis, heart rate borderline RVR, will give afternoon dose metoprolol and begin extended release metoprolol tomorrow (6) Obstructive sleep apnea: Code(s): G47.33 - Obstructive sleep apnea (adult) (pediatric) Status: Chronic Assessment and Plan: cpap ordered (7) Cutaneous abscess of perineum: Code(s): L02.215 - Cutaneous abscess of perineum Status: Acute Assessment and Plan: Continue antibiotics. (8) Pulmonary hypertension: Code(s): I27.20 - Pulmonary hypertension, unspecified Status: Acute Assessment and Plan: prior echocardiogram in 2021 shows LVEF 60-65% with grade 1 diastolic dysfunction chest x-ray with significant cardiomegaly and pulmonary edema suggest likely worsened function ECHO LVEF 60-65 with moderate Pumonary HTN, normal diatsolic and sytolic function Fluid restriction 1500 mL Bumex 2 mg IV b.i.d. watch chronic renal function/chronic hyponatremia/hypokalemia De La Cruz in place for strict I&O 06/21: change diuresis to oral Bumex and metolazone, increased fluid restriction to 1800 mL so patient can have Jell-O (9) Type 2 diabetes mellitus: Qualifiers: Diabetes mellitus [facility] insulin use: with local intermodal truck driver use Diabetes mellitus complication status: without complication Qualified Code(s): E11.9 - Type 2 diabetes mellitus without complications; Z79.4 - long term (current) use of insulin Code(s): E11.9 - Type 2 diabetes mellitus without complications Status: Chronic Assessment and Plan: Stable on current medication commode will continue current treatment. Plan Full code DVT prophylaxis ordered Plan is to change diuretics to oral, increase activity as tolerated. Possible discharge tomorrow or Saturday depending on SNF availability Time Spent With Patient Time with patient: Greater than 35 minutes Subjective Date/time seen: 06/22/23 10:51 Interval history: Patient reports that she is breathing much better and has lost a significant amount of weight since arriving to the hospital due to increased diuresis. She reports that she is using less oxygen and not feeling as short of breath though she does sometimes still get short of breath. Modified barium swallow was ordered yesterday but patient is still too large to fit in to imaging modality some bedside swallow screen was completed without evidence of aspiration. Patient reque
[2023-06-22 12:00] LABS: Glucose Point of Care 139 mg/dl (65-105)
--- NOTE | 2023-06-22 13:52 | PCSTNOTE ---
Bedside swallowing evaluation completed. Order was received yesterday for a modified barium swallow study which could not be done due to patient's body size exceeding limits of equipment. Order for bedside swallowing evaluation received today. Patient seen sitting upright in chair at bedside, present. Cursory oral peripheral examination results indicate swallowing mechanism is structurally and functionally within normal limits. Patient has natural teeth with a few missing but is able to chew effectively. Trials of thin liquid by straw, pureed food by spoon, and solid consistency food (green salad with raw vegetables including cucumbers and howe tomatoes) were given. Patient showed no soft signs of aspiration with thin liquids, but did tend to suck continuously through straw without taking a breath. Similarly, no signs of aspiration were observed with solid or pureed foods by fork and spoon. However, patient demonstrated some fatigue while eating her salad which required chewing large pieces. With food cut into smaller pieces patient was able to manage better. Her was present and demonstrated how he usually assists her at meals. It was noted that he tended to feed her quickly before she completed chewed and swallowed the previous bolus. She stated that he has a bad back and she tried to eat quickly so he can sit down again sooner. Discussed having sit in a comfortable chair while feeding her, or to take breaks during the meal and sit down for a moment. Based on the results of this evaluation, it is recommended that the patient continue to receive a regular texture diet and thin liquids. Small bite size is recommended, and food will need to be cut into small bite sized pieces if it is not already done when food is served. Thin liquids are recommended, straw is ok. Patient is to take one or two sips through straw at a time, then stop and take a break to breath. Swallowing precaution recommendations are posted in the chart and have been discussed with patient, , nurse, shake splitter, and physician today. No further speech therapy is recommended. Thank you for the referral of this patient.
[2023-06-22 17:00] LABS: Glucose Point of Care 131 mg/dl (65-105)
[2023-06-22] MEDS: ALPRAZolam (*CRX) 0.5 MG TABLET 1 MG PO (18:16)
[2023-06-22] MEDS: LACTULOSE 20 GM/30 ML UDC PO (18:16)
[2023-06-22] MEDS: BUMETANIDE 1 MG TABLET 2 MG PO (18:16)
[2023-06-22 20:13] LABS: Glucose Point of Care 149 mg/dl (65-105)
[2023-06-22] MEDS: METOPROLOL TARTRATE 25 MG TABLET PO (20:16)
[2023-06-22] MEDS: POTASSIUM CHLORIDE 20 MEQ ER TABLET 40 MEQ PO (20:17)
[2023-06-22] MEDS: rOPINIRole HCL 0.5 MG TABLET PO (21:23)
[2023-06-22] MEDS: QUEtiapine FUMARATE 25 MG TABLET PO (21:23)
[2023-06-22] MEDS: PRAZOSIN HCL 5 MG CAPSULE PO (21:23)
[2023-06-23] VITALS (16 sets, daily range): BP systolic 121–139; BP diastolic 63–90; PULSE 86–105; RESP 16–20; TEMP 36.3–36.7; O2SAT 96–100
[2023-06-23] MEDS: IPRATROPIUM 0.5 MG/ALBUTEROL SULFATE 2.5 MG AMPUL.NEB 3 ML INHALATION ×4 (03:03→20:02)
[2023-06-23 04:58] LABS: Basophils Percent Auto 0.6 % (0.2-1.2); Eosinophils Absolute Auto 0.5 K/mm3 (0-0.3); Eosinophils Percent Auto 7.3 % (0-4.4); Hematocrit 26.8 % (37.0-47.0); Immature Granulocyte Absolute 0.08 K/mm3 (0.00-0.031); Immature Granulocyte Percent A 1.3 % (0-0.5); Lymphocytes Absolute Auto 0.81 K/mm3 (0.9-3.2); Lymphocytes Percent Auto 12.9 % (18.3-44.2); Mean Corpuscular HGB Conc 29.9 g/dl (32-36); Mean Corpuscular Hemoglobin 29.6 pg (26-34); Mean Corpuscular Volume 99.3 fl (80-100); Mean Platelet Volume 11.2 fl (7.4-10.4); Monocytes Absolute Auto 0.7 K/mm3 (0.1-0.6); Monocytes Percent Auto 11.6 % (2.6-8.5); Neutrophils Absolute Auto 4.2 K/mm3 (1.3-6.7); Neutrophils Percent Auto 66.3 % (45.5-73.1); Platelet Count Result 185 k/mm3 (150-375); Red Cell Distribution Width 14.6 % (11.5-14.5); White Blood Count 6.3 K/mm3 (4.5-10.0)
[2023-06-23 05:09] LABS: Albumin Level 3.6 g/dL (3.5-5.1); Anion Gap 2 mmol/L (4-12); Blood Urea Nitrogen 20 mg/dL (7-17); Calcium 8.7 mg/dL (8.4-10.2); Carbon Dioxide 37 mmol/L (22-30); Chloride 95 mmol/L (98-107); Estimated CRCL calculation 46 ml/min; Estimated Glomerular Filt Rate 37; Glucose 132 mg/dL (65-110); Magnesium 1.4 mg/dL (1.6-2.3); Phosphorus 2.9 mg/dL (2.5-4.5); Potassium 3.3 mmol/L (3.4-5.0); Sodium 134 mmol/L (137-145)
[2023-06-23 05:21] LABS: Hypochromasia 2+; Platelet Estimate Adequate (Adequate); Schistocytes None Seen
[2023-06-23 05:22] LABS: Stomatocytes 1+
[2023-06-23 08:13] LABS: Glucose Point of Care 137 mg/dl (65-105)
[2023-06-23] MEDS: BUDESONIDE RESPULE NEB 0.5 MG/2 ML AMP INHALATION ×2 (08:24→20:01)
[2023-06-23] MEDS: MAGNESIUM SULF 4 GM/WATER100ML 4 GM/100 ML BAG IVPB (08:54)
[2023-06-23] MEDS: PANTOPRAZOLE 40 MG TABLET PO (08:55)
[2023-06-23] MEDS: EMPAGLIFLOZIN 10 MG TABLET PO (08:55)
[2023-06-23] MEDS: ATORVASTATIN 40 MG TABLET 80 MG PO (08:55)
[2023-06-23] MEDS: guaiFENesin 12 HR 600 MG TABCR 1200 MG PO ×2 (08:55→21:04)
[2023-06-23] MEDS: POTASSIUM CHLORIDE 20 MEQ ER TABLET 60 MEQ PO (08:55)
[2023-06-23] MEDS: CARBIDOPA/LEVODOPA 25/100 MG TABLET 3 TABLET PO ×3 (08:56→18:34)
[2023-06-23] MEDS: levoFLOXacin 750 MG TABLET PO (08:56)
[2023-06-23] MEDS: allopurinoL 100 MG TABLET PO (08:56)
[2023-06-23] MEDS: METOPROLOL SUCCINATE EXT REL 50 MG TABCR PO (08:56)
[2023-06-23] MEDS: BUMETANIDE 1 MG TABLET 2 MG PO ×2 (08:56→18:34)
[2023-06-23] MEDS: LOSARTAN POTASSIUM 12.5 MG TABLET PO (08:56)
[2023-06-23] MEDS: APIXABAN 2.5 MG TABLET PO ×2 (08:56→21:04)
[2023-06-23] MEDS: PRIMIDONE 50 MG TABLET PO ×2 (08:56→21:04)
[2023-06-23] MEDS: AMIODARONE HCL 200 MG TABLET BY MOUTH (08:56)
[2023-06-23] MEDS: OXcarbazepine 300 MG TABLET PO ×2 (08:56→21:04)
[2023-06-23] MEDS: DOXEPIN HCL 25 MG CAPSULE PO ×2 (08:56→21:04)
[2023-06-23] MEDS: GABAPENTIN 100 MG CAPSULE PO ×3 (08:56→18:34)
[2023-06-23] MEDS: HYDROcodone/acetaminophen (*CRX) 5-325 MG TABLET 1 TAB PO (08:57)
[2023-06-23] MEDS: polyethylene glycoL 3350 17 GM POWD.PACK PO (08:57)
[2023-06-23] MEDS: FLUoxetine HCL 20 MG CAPSULE 40 MG PO ×2 (08:59→21:03)
--- NOTE | 2023-06-23 10:26 | P.PNIM_ITS ---
Progress Note: A&P Assessment and Plan (1) Acute on chronic respiratory failure with hypoxia and hypercapnia: Code(s): J96.21 - Acute and chronic respiratory failure with hypoxia; J96.22 - Acute and chronic respiratory failure with hypercapnia Status: Acute Assessment and Plan: * Patient is gradually improving. Patient is requiring less oxygen. * Plan is to continue with antibiotics for now and monitor closely. (2) Anemia: Qualifiers: Anemia type: due to chronic kidney disease Chronic kidney disease stage: stage 4 (severe) Qualified Code(s): N18.4 - Chronic kidney disease, stage 4 (severe); D63.1 - Anemia in chronic kidney disease Code(s): D64.9 - Anemia, unspecified Status: Acute Assessment and Plan: * Hemoglobin stable, no acute signs of bleeding * found to be deficient in B12 and was started on therapy * monitor H&H (3) 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 06/21: potassium 3.2, replace orally and recheck daily labs 06/22: Can potassium 3.3, oral replacement ordered (4) Parkinson disease: Code(s): G20 - Parkinson's disease Status: Chronic Assessment and Plan: Continue with current treatment start physical therapy. (5) Atrial fibrillation: Code(s): I48.91 - Unspecified atrial fibrillation Status: Chronic Assessment and Plan: 06/21: * continue Eliquis, heart rate borderline RVR, will give afternoon dose metoprolol and begin extended release metoprolol tomorrow 06/22: Heart rate 88 (6) Obstructive sleep apnea: Code(s): G47.33 - Obstructive sleep apnea (adult) (pediatric) Status: Chronic Assessment and Plan: * cpap ordered (7) Cutaneous abscess of perineum: Code(s): L02.215 - Cutaneous abscess of perineum Status: Acute Assessment and Plan: Continue antibiotics. (8) Pulmonary hypertension: Code(s): I27.20 - Pulmonary hypertension, unspecified Status: Acute Assessment and Plan: * prior echocardiogram in 2021 shows LVEF 60-65% with grade 1 diastolic dysfunction * chest x-ray with significant cardiomegaly and pulmonary edema suggest likely worsened function * ECHO LVEF 60-65 with moderate Pumonary HTN, normal diatsolic and sytolic function * Fluid restriction 1500 mL * Bumex 2 mg IV b.i.d. * watch chronic renal function/chronic hyponatremia/hypokalemia * De La Cruz in place for strict I&O 06/21: change diuresis to oral Bumex and metolazone, increased fluid restriction to 1800 mL so patient can have Jell-O 06/22: Diuresing well with oral Bumex and metolazone. Will discontinue De La Cruz ca theter today. (9) Type 2 diabetes mellitus: Qualifiers: Diabetes mellitus rodent exterminator insulin use: with rodent exterminator use Diabetes mellitus complication status: without complication Qualified Code(s): E11.9 - Type 2 diabetes mellitus without complications; Z79.4 - assisted (current) use of insulin Code(s): E11.9 - Type 2 diabetes mellitus without complications Status: Chronic Assessment and Plan: * Stable on current medication commode will continue current treatment. Plan Full code DVT prophylaxis ordered Discontinue De La Cruz catheter, continue oral diuresis aim for discharge tomorrow if SNF able to receive patient Time Spent With Patient Time with patient: Greater than 35
--- NOTE | 2023-06-23 10:26 | PM.IMPN ---
Progress Note: A&P Assessment and Plan (1) Acute on chronic respiratory failure with hypoxia and hypercapnia: Code(s): J96.21 - Acute and chronic respiratory failure with hypoxia; J96.22 - Acute and chronic respiratory failure with hypercapnia Status: Acute Assessment and Plan: Patient is gradually improving. Patient is requiring less oxygen. Plan is to continue with antibiotics for now and monitor closely. (2) Anemia: Qualifiers: Anemia type: due to chronic kidney disease Chronic kidney disease stage: stage 4 (severe) Qualified Code(s): N18.4 - Chronic kidney disease, stage 4 (severe); D63.1 - Anemia in chronic kidney disease Code(s): D64.9 - Anemia, unspecified Status: Acute Assessment and Plan: Hemoglobin stable, no acute signs of bleeding found to be deficient in B12 and was started on therapy monitor H&H (3) 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 06/21: potassium 3.2, replace orally and recheck daily labs 06/22: Can potassium 3.3, oral replacement ordered (4) Parkinson disease: Code(s): G20 - Parkinson's disease Status: Chronic Assessment and Plan: Continue with current treatment start physical therapy. (5) Atrial fibrillation: Code(s): I48.91 - Unspecified atrial fibrillation Status: Chronic Assessment and Plan: 06/21: continue Eliquis, heart rate borderline RVR, will give afternoon dose metoprolol and begin extended release metoprolol tomorrow 06/22: Heart rate 88 (6) Obstructive sleep apnea: Code(s): G47.33 - Obstructive sleep apnea (adult) (pediatric) Status: Chronic Assessment and Plan: cpap ordered (7) Cutaneous abscess of perineum: Code(s): L02.215 - Cutaneous abscess of perineum Status: Acute Assessment and Plan: Continue antibiotics. (8) Pulmonary hypertension: Code(s): I27.20 - Pulmonary hypertension, unspecified Status: Acute Assessment and Plan: prior echocardiogram in 2021 shows LVEF 60-65% with grade 1 diastolic dysfunction chest x-ray with significant cardiomegaly and pulmonary edema suggest likely worsened function ECHO LVEF 60-65 with moderate Pumonary HTN, normal diatsolic and sytolic function Fluid restriction 1500 mL Bumex 2 mg IV b.i.d. watch chronic renal function/chronic hyponatremia/hypokalemia De La Cruz in place for strict I&O 06/21: change diuresis to oral Bumex and metolazone, increased fluid restriction to 1800 mL so patient can have Jell-O 06/22: Diuresing well with oral Bumex and metolazone. Will discontinue De La Cruz catheter today. (9) Type 2 diabetes mellitus: Qualifiers: Diabetes mellitus care home insulin use: with care home use Diabetes mellitus complication status: without complication Qualified Code(s): E11.9 - Type 2 diabetes mellitus without complications; Z79.4 - jail (current) use of insulin Code(s): E11.9 - Type 2 diabetes mellitus without complications Status: Chronic Assessment and Plan: Stable on current medication commode will continue current treatment. Plan Full code DVT prophylaxis ordered Discontinue De La Cruz catheter, continue oral diuresis aim for discharge tomorrow if SNF able to receive patient Time Spent With Patient Time with patient: Greater than 35 minutes Subjective Date/time seen: 06/23/23 10:26 Interval history: Patient seen this morning sitting upright in a chair at bedside breathing comfortably on 2 liters/minute nasal cannula. Occasional cough noted. Lungs mostly clear with scattered coarse sounds. Generalized Parkinson's noted. De La Cruz catheter remains place was previously discontinued at [facility] but reinserted on admission due to heavy diure
--- NOTE | 2023-06-23 11:28 | PM.PNPUL ---
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 Diabetes mellitus complication status: without complication Qualified Code(s): E11.9 - Type 2 diabetes mellitus without complications; Z79.4 - professor of astronomy (current) use of insulin Code(s): E11.9 - Type 2 diabetes mellitus without complications Status: Chronic (4) Heart failure with preserved ejection fraction: Code(s): I50.30 - Unspecified diastolic (congestive) heart failure Status: Chronic (5) Asthma-COPD overlap syndrome: Code(s): J44.89 - Other specified chronic obstructive pulmonary disease Status: Acute (6) Pulmonary hypertension: Code(s): I27.20 - Pulmonary hypertension, unspecified Status: Acute (7) CHF exacerbation: Code(s): I50.9 - Heart failure, unspecified Status: Acute (8) Acute on chronic respiratory failure with hypoxia and hypercapnia: Code(s): J96.21 - Acute and chronic respiratory failure with hypoxia; J96.22 - Acute and chronic respiratory failure with hypercapnia Status: Acute Assessment and Plan: The patient, a 72-year-old woman with morbid obesity, untreated obstructive sleep apnea, and a potential history of asthma COPD overlap syndrome, reported experiencing shortness of breath. Initial chest scans revealed cardiomegaly and some pulmonary congestion. Her condition has improved following diuretic treatment and potential asthma COPD overlap syndrome treatment. She is currently only on supplemental oxygen. Despite her history of moderate obstructive sleep apnea, she has not used CPAP support due to discomfort with the face mask. She also has a history of Parkinson's disease and potential aspiration. An overnight oximetry test on 2 liters/minute showed no signs of oxyhemoglobin desaturation. The patient indicated during an extensive discussion about her obstructive sleep apnea management that she is unwilling to try CPAP treatment after a sleep study. Her most recent echocardiogram showed signs of pulmonary hypertension and an enlarged left atrium. These findings, combined with bilateral pleural effusions and elevated proBNP, suggest that congestive heart failure led to her current hospitalization. Video swallow was not performed but patient was evaluated by speech pathology at the bedside. Surgical pathology evaluation is greatly appreciated. Patient's her respiratory status has been stable over the last 48 hours. Plan: From a respiratory perspective, the patient is ready for discharge. She will maintain her supplemental oxygen at 3 liters per minute during the night. Considering the potential for asthma COPD syndrome, I recommend adding an ICS/LAMA inhaler such as Symbicort 160/4.5, to be taken in two puffs twice daily. A rescue albuterol inhaler and nebulized albuterol should also be provided for use as needed. The patient has agreed to return to the pulmonary clinic for re-evaluation of her respiratory issues, including potential asthma COPD overlap syndrome and sleep apnea. She expressed a preference to see Dr. Evans in the outpatient clinic, as she has seen significant improvement under his care. Please do not hesitate to contact me with any questions. (9) Lung nodules: Code(s): R91.8 - Other nonspecific abnormal finding of lung field Status: Acute Subjective Date/time seen: 06/23/23 11:28 Interval history: Patient has no new respiratory symptoms. Her respiratory status has improved following treatment with diuretics, supplemental oxygen, also receiving treatment with steroids for possible asthma COPD overlap syndrome. Patient has a known history of sleep apnea. Sleep stud
[2023-06-23 11:59] LABS: Glucose Point of Care 140 mg/dl (65-105)
[2023-06-23] MEDS: metOLazone 5 MG TABLET PO (13:14)
[2023-06-23] MEDS: ALPRAZolam (*CRX) 0.5 MG TABLET 1 MG PO ×2 (14:06→21:03)
[2023-06-23 17:09] LABS: Glucose Point of Care 129 mg/dl (65-105)
--- NOTE | 2023-06-23 18:13 | PCRCNOTE ---
Window of time for administration has passed. See next scheduled administration.
--- NOTE | 2023-06-23 19:39 | PC.NURSE ---
Addendum entered by Jerilyn Gonzales RN 06/23/23 19:57: Sasha called back and asked if pt currently having pain and if pt takes pain medication chronically. Told Sasha that pt not currently c/o pain but sometimes c/o shoulder/back pain or of pain from old abscess site. I did not know if pt takes pain medication chronically. Sasha said that if pt c/o pain to try Tylenol first and if pt continues to have pain to call back for a one time dose. Sasha said she did not want to contribute to pt becoming addicted to pain medication so she will not renew pain medication at this time. Sasha said to pass it on to polo. Original Note: Called Sasha Sales @[phone] per request of polo RN to ask if pt's pain medication can be renewed before it reaches stop date/time. No answer by phone from provider at this time. Voicemail message left.
[2023-06-23] MEDS: PRAZOSIN HCL 5 MG CAPSULE PO (21:04)
[2023-06-23] MEDS: QUEtiapine FUMARATE 25 MG TABLET PO (21:04)
[2023-06-23] MEDS: rOPINIRole HCL 0.5 MG TABLET PO (21:04)
[2023-06-23 21:27] LABS: Glucose Point of Care 134 mg/dl (65-105)
[2023-06-24] VITALS (11 sets, daily range): BP systolic 124–133; BP diastolic 59–64; PULSE 69–106; RESP 20; TEMP 36.7; O2SAT 95–99
[2023-06-24] MEDS: IPRATROPIUM 0.5 MG/ALBUTEROL SULFATE 2.5 MG AMPUL.NEB 3 ML INHALATION ×3 (00:03→11:08)
[2023-06-24 05:58] LABS: Basophils Absolute Auto 0.1 K/mm3 (0.0-0.1); Basophils Percent Auto 1.1 % (0.2-1.2); Eosinophils Absolute Auto 0.6 K/mm3 (0-0.3); Eosinophils Percent Auto 9.2 % (0-4.4); Hematocrit 27.1 % (37.0-47.0); Hemoglobin 7.9 g/dL (12.0-15.0); Immature Granulocyte Percent A 1.6 % (0-0.5); Lymphocytes Absolute Auto 0.98 K/mm3 (0.9-3.2); Lymphocytes Percent Auto 15.6 % (18.3-44.2); Mean Corpuscular HGB Conc 29.2 g/dl (32-36); Mean Corpuscular Volume 99.6 fl (80-100); Mean Platelet Volume 12.3 fl (7.4-10.4); Monocytes Absolute Auto 0.8 K/mm3 (0.1-0.6); Monocytes Percent Auto 12.5 % (2.6-8.5); Neutrophils Absolute Auto 3.8 K/mm3 (1.3-6.7); Platelet Count Result 190 k/mm3 (150-375); Red Blood Count 2.72 M/mm3 (4.2-5.4); Red Cell Distribution Width 14.8 % (11.5-14.5); White Blood Count 6.3 K/mm3 (4.5-10.0)
[2023-06-24 06:06] LABS: Albumin Level 3.8 g/dL (3.5-5.1); Anion Gap 6 mmol/L (4-12); Blood Urea Nitrogen 19 mg/dL (7-17); Calcium 9.1 mg/dL (8.4-10.2); Carbon Dioxide 34 mmol/L (22-30); Chloride 95 mmol/L (98-107); Estimated CRCL calculation 46 ml/min; Estimated Glomerular Filt Rate 37; Glucose 111 mg/dL (65-110); Phosphorus 3.3 mg/dL (2.5-4.5); Potassium 3.6 mmol/L (3.4-5.0); Sodium 135 mmol/L (137-145)
[2023-06-24 06:27] LABS: Platelet Estimate Adequate (Adequate)
[2023-06-24 06:29] LABS: Anisocytosis 1+; Hypochromasia 1+; Schistocytes None Seen
[2023-06-24] MEDS: BUDESONIDE RESPULE NEB 0.5 MG/2 ML AMP INHALATION (07:29)
[2023-06-24 08:04] LABS: Glucose Point of Care 127 mg/dl (65-105)
[2023-06-24] MEDS: LOSARTAN POTASSIUM 12.5 MG TABLET PO (08:12)
[2023-06-24] MEDS: FLUoxetine HCL 20 MG CAPSULE 40 MG PO (08:12)
[2023-06-24] MEDS: metOLazone 5 MG TABLET PO (08:13)
[2023-06-24] MEDS: PANTOPRAZOLE 40 MG TABLET PO (08:13)
[2023-06-24] MEDS: PRIMIDONE 50 MG TABLET PO (08:13)
[2023-06-24] MEDS: ATORVASTATIN 40 MG TABLET 80 MG PO (08:13)
[2023-06-24] MEDS: CARBIDOPA/LEVODOPA 25/100 MG TABLET 3 TABLET PO ×2 (08:15→12:21)
[2023-06-24] MEDS: allopurinoL 100 MG TABLET PO (08:15)
[2023-06-24] MEDS: BUMETANIDE 1 MG TABLET 2 MG PO (08:16)
[2023-06-24] MEDS: GABAPENTIN 100 MG CAPSULE PO ×2 (08:16→12:21)
[2023-06-24] MEDS: APIXABAN 2.5 MG TABLET PO (08:16)
[2023-06-24] MEDS: DOXEPIN HCL 25 MG CAPSULE PO (08:16)
[2023-06-24] MEDS: EMPAGLIFLOZIN 10 MG TABLET PO (08:16)
[2023-06-24] MEDS: AMIODARONE HCL 200 MG TABLET BY MOUTH (08:16)
[2023-06-24] MEDS: guaiFENesin 12 HR 600 MG TABCR 1200 MG PO (08:17)
[2023-06-24] MEDS: METOPROLOL SUCCINATE EXT REL 50 MG TABCR PO (08:17)
[2023-06-24] MEDS: OXcarbazepine 300 MG TABLET PO (08:17)
[2023-06-24] MEDS: polyethylene glycoL 3350 17 GM POWD.PACK PO (08:17)
--- NOTE | 2023-06-24 09:42 | PM.DS ---
DS: Admitting Diagnosis Discharge Date 06/24/2023 Admitting Diagnosis Acute on chronic respiratory failure with hypoxia and hypercapnia, pulmonary edema cardiac cause, CKD due to diabetes, Parkinson disease, anticoagulation long-term use, atrial fibrillation, hyponatremia, obstructive sleep apnea DS: Discharge Diagnosis Discharge Diagnosis (1) Acute on chronic respiratory failure with hypoxia and hypercapnia: Code(s): J96.21 - Acute and chronic respiratory failure with hypoxia; J96.22 - Acute and chronic respiratory failure with hypercapnia Status: Acute (2) Anemia: Qualifiers: Anemia type: due to chronic kidney disease Chronic kidney disease stage: stage 4 (severe) Qualified Code(s): N18.4 - Chronic kidney disease, stage 4 (severe); D63.1 - Anemia in chronic kidney disease Code(s): D64.9 - Anemia, unspecified Status: Acute (3) Chronic kidney disease due to diabetes mellitus: Code(s): E11.22 - Type 2 diabetes mellitus with diabetic chronic kidney disease Status: Chronic (4) Parkinson disease: Code(s): G20 - Parkinson's disease Status: Chronic (5) Atrial fibrillation: Code(s): I48.91 - Unspecified atrial fibrillation Status: Chronic (6) Obstructive sleep apnea: Code(s): G47.33 - Obstructive sleep apnea (adult) (pediatric) Status: Chronic (7) Cutaneous abscess of perineum: Code(s): L02.215 - Cutaneous abscess of perineum Status: Acute (8) Pulmonary hypertension: Code(s): I27.20 - Pulmonary hypertension, unspecified Status: Acute (9) Type 2 diabetes mellitus: Qualifiers: Diabetes mellitus terminal make up operator insulin use: with terminal make up operator use Diabetes mellitus complication status: without complication Qualified Code(s): E11.9 - Type 2 diabetes mellitus without complications; Z79.4 - penitentiary (current) use of insulin Code(s): E11.9 - Type 2 diabetes mellitus without complications Status: Chronic (10) Pulmonary edema cardiac cause: Code(s): I50.1 - Left ventricular failure, unspecified Status: Acute DS: Summary Hospital Course Hospital Course: This is a very pleasant 72-year-old female patient to presented to the emergency department due to recurrent dyspnea progressively worsening over several days. She was recently started on home oxygen and she kept titrating her oxygen from 2 L up to 4 liters/minute but the staff at the SNF kept turning it because of the prescription for 2 L per. She was unable to work with therapy due to dyspnea. She was getting more. Upon arrival patient had pulmonary edema and significant weight gain. Over the last week she has been aggressively diuresed and lost a significant amount of weight along with significantly improving work of breathing. Lactulose started due to constipation and this seems to be helping. Patient transitioned to oral Bumex and metolazone with stable renal function (CKD stage 3.) Patient accepted to a different SNF. De La Cruz catheter was removed. Status at Discharge Cognitive/behavioral status at discharge: Awake alert oriented and pleasant Functional status at discharge: uses cane/walker Overall status at discharge: patient is progressing back to baseline Time Spent with Patient Time attestation: Total time spent providing and/or coordinating discharge services: 45 minutes Time spent: Greater than 30 minutes Exam Narrative: General: chronically ill-appearing but showing improvement, gross tremors bilateral upper extremities HEENT: normocephalic, atraumatic. Mucous membranes moist. EOMI, PERRLA Respiratory: improved aeration, scattered coarse sounds Cardiovascular: RRR, normal S1-S2 upon auscultation. No murmurs, rubs, or clicks. Abdomen: Soft, round, nondistended and nontender. Bowel sounds present to all four quadrants. Extremities: No cyanosis, clubbing. Improving, 2+ pitting edema to LLE. Pulses are palpable 2/2. Neuro: Alert a
[2023-06-24 11:58] LABS: Glucose Point of Care 141 mg/dl (65-105)
[2023-06-24] MEDS: LACTULOSE 20 GM/30 ML UDC PO (12:22)
== END 2023-06-24 13:12 | DRG 189 ==
LOC: ANHED 11:12 → ANH2MED 14:51
PROVIDERS: Internal Medicine; Internal Medicine Pulmonary Disease; Nurse Practitioner Acute Care; Nurse Practitioner Family; Physician Assistant; Admitting Provider Internal Medicine; Emergency Provider Emergency Medicine; Visit Provider Nurse Practitioner
DX: J96.21 Acute and chronic respiratory failure with hypoxia (principal); E87.1 Hypo-osmolality and hyponatremia; I13.0 Hypertensive heart and chronic kidney disease with heart failure and stage 1 through stage 4 chronic kidney disease, or unspecified chronic kidney disease; I50.32 Chronic diastolic (congestive) heart failure; N18.4 Chronic kidney disease, stage 4 (severe); J96.22 Acute and chronic respiratory failure with hypercapnia; D63.1 Anemia in chronic kidney disease; E11.22 Type 2 diabetes mellitus with diabetic chronic kidney disease; E03.9 Hypothyroidism, unspecified; E78.5 Hyperlipidemia, unspecified; E11.42 Type 2 diabetes mellitus with diabetic polyneuropathy; F41.9 Anxiety disorder, unspecified; F32.A Depression, unspecified; G47.33 Obstructive sleep apnea (adult) (pediatric); G20.A1 Parkinson's disease without dyskinesia, without mention of fluctuations; I27.20 Pulmonary hypertension, unspecified; J43.9 Emphysema, unspecified; J44.89 Other specified chronic obstructive pulmonary disease; K21.9 Gastro-esophageal reflux disease without esophagitis; M10.9 Gout, unspecified; R91.8 Other nonspecific abnormal finding of lung field; Z99.81 Dependence on supplemental oxygen; Z96.653 Presence of artificial knee joint, bilateral; Z86.718 Personal history of other venous thrombosis and embolism; Z79.84 Long term (current) use of oral hypoglycemic drugs; Z79.01 Long term (current) use of anticoagulants
CPT/HCPCS: 36415; 36600; 71045; 71046; 71250; 80048; 80053; 80061; 80069; 81001; 82375; 82805; 82948; 83036; 83050; 83605; 83735; 83880; 84145; 84439; 84443; 84484; 85014; 85018; 85025; 87086; 87637; 92610; 93005; 93306; 93971; 94640; 94667; 94668; 94762; 96365; 96375; 96376; 97110; 97163; 97165; 97530; 97535; 99285; A9270; C8929; G0378; J0692; J0696; J1815; J1939; J1940; J1956; J2060; J2405; J2919; J3475; J7512; Q9957

== ENCOUNTER 2023-09-05 20:41 | Inpatient (IN) | payer MEDICARE, BC, SELFPAY ==
--- NOTE | ~2023-09-05 | US_ITS ---
US abdomen limited INDICATION: Elevated liver function tests. PROCEDURE: Realtime right upper abdominal ultrasound. COMPARISON: CT dated 09/06/2023 FINDINGS: The pancreas is normal without focal mass or pancreatic ductal dilation. Liver echotexture is normal without focal mass or intrahepatic biliary dilatation. There is normal directional flow i n the portal vein. Gallbladder wall is thickened with pericholecystic fluid. No gallstones are seen. Common bile duct m easures 3 mm. No sonographic Childress's sign. IMPRESSION: 1: Gallbladder wall thickening with pericholecystic fluid. No cholelithiasis or biliary dilatation. N o sonographic Childress's sign. Findings suspicious for a calculus cholecystitis. Clinically correlate. Reviewed, dictated and finalized at location B. IMPRESSION: 1: Gallbladder wall thickening with pericholecystic fluid. No cholelithiasis or biliary dilatation. No sonographic Childress's sign. Findings suspicious for a ca lculus cholecystitis. Clinically correlate.
--- NOTE | ~2023-09-05 | XR_ITS ---
Portable chest x-ray Comparison: 09/08/2023 Clinical History: Pulmonary edema Findings: Right IJ line is unchanged. There are central congestive change and mild pulmonary edema p attern. Cardiomediastinal silhouette is stable. Bones and soft tissues are unremarkable. Impression: Mild pulmonary edema and central congestive change. Stable support line. Reviewed, dictated and finalized at location . Impression: Mild pulmonary edema and central congestive change. Stable support line.
--- NOTE | ~2023-09-05 | US_ITS ---
US renal BI 09/07/2023 11:03 Procedure: Realtime transabdominal ultrasound of the kidneys and bladder. Indication: Elevated creatinine Comparison: No prior studies for comparison. Findings: Renal echotexture is normal bilaterally without hydronephrosis, contour deforming mass or r enal calculus. The right kidney measures 14.7 cm and left kidney measures 14.4 cm. Bladder decompress ed by De La Cruz catheter. Impression: 1: Unremarkable renal ultrasound. No stones, masses or hydronephrosis. Reviewed, dictated and finalized at location B. Impression: 1: Unremarkable renal ultrasound. No stones, masses or hydronephrosis.
--- NOTE | ~2023-09-05 | US_ITS ---
US venous doppler [facility] DATE: 09/08/2023 09:10 INDICATION: History of deep venous thrombosis TECHNIQUE: Real-time and color flow imaging and Doppler analysis of the veins of both lower extremiti es COMPARISON: None FINDINGS: Examination was technically challenging due to body habitus. No intraluminal thrombus or oc clusion of the deep veins of the right or left lower extremities is noted. IMPRESSION: No evidence of deep venous thrombosis of the lower extremities is detected Reviewed, dictated and finalized at Location A. Reviewed, dictated and finalized at location J. IMPRESSION: No evidence of deep venous thrombosis of the lower extremities is d etected
--- NOTE | ~2023-09-05 | XR_ITS ---
EXAMINATION: XR chest 1V portable DATE: 09/06/2023 00:30 INDICATION: Acute on chronic heart failure TECHNIQUE: frontal view of the chest was obtained. COMPARISON: Chest radiograph dated 06/30/2023 FINDINGS: Cardiomegaly. Pulmonary vascular congestion with subtle increased interstitial pattern consistent wit h minimal pulmonary edema. No pleural effusion or pneumothorax. IMPRESSION: 1. Likely congestive heart failure with cardiomegaly, pulmonary vascular congestion and minimal pulmo nary edema. Reviewed, dictated and finalized at location A. IMPRESSION: 1. Likely congestive heart failure with cardiomegaly, pulmonary vascular conges tion and minimal pulmonary edema.
--- NOTE | ~2023-09-05 | CT_ITS ---
EXAMINATION: CT brain wo con DATE: 09/08/2023 13:37 INDICATION: Intermittent confusion. Patient is taking anticoagulation medication. TECHNIQUE: Computed tomography (CT) of the head was performed without intravenous contrast. The mA wa s adjusted according to patient size. Iterative reconstruction technique was employed. Exam dose: 60 5.33 mGy-cm total exam DLP. COMPARISON: 09/05/2023 CT brain FINDINGS: No intracranial mass lesion or hemorrhage or recent cerebrovascular accident, midline shift or mass effect, subdural or epidural hematoma is detected. 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 Chronic diminished attenuation of cerebral white matter, likely due to chronic small vessel ischemic changes. No skull fracture or bone destruction. Mild paranasal sinus disease as noted on 09/05/2023 IMPRESSION: No acute intracranial finding no significant change since 09/05/2023 Reviewed, dictated and finalized at Location A. Reviewed, dictated and finalized at location J.
--- NOTE | ~2023-09-05 | CT_ITS ---
EXAMINATION: CT facial bones wo con DATE: 09/05/2023 22:00 INDICATION: FALL . TECHNIQUE: Computed tomography (CT) of the facial bones and maxillofacial region was performed withou t intravenous contrast. Automated exposure control and iterative reconstruction technique were employ ed. The dose-length product was 858.13 mGy-cm. COMPARISON: None. FINDINGS: Mild motion artifact at the mandible. Soft Tissues: Soft tissue swelling over the left cheek. Facial bones: No acute fracture. No lytic or blastic process. Osteoarthritic changes at the bilatera l TMJs. Eyes: The globes are intact. Bilateral lens replacements. The soft tissue planes of the orbits are m aintained. Paranasal Sinuses: Minimal bilateral mastoid fluid. Bilateral maxillary mucosal thickening. Retentio n cysts/polyps in the right maxillary and sphenoid sinuses. Mild mucosal thickening in the ethmoid si nuses. Minimal aerated secretions in the right posterior ethmoid sinus. Foreign Bodies: No radiopaque foreign bodies. Other Findings: None. IMPRESSION: No evidence of acute facial bone fracture. Minimal aerated secretions in the posterior right ethmoid sinus may reflect sinusitis or mild mucosal hemorrhage. Reviewed, dictated and finalized at location K. IMPRESSION: No evidence of acute facial bone fracture. Minimal aerated secretions in the posterior right ethmoid sinus may reflect sin usitis or mild mucosal hemorrhage.
--- NOTE | ~2023-09-05 | XR_ITS ---
EXAMINATION: XR chest port-a-cath/central DATE: 09/08/2023 01:07 INDICATION: Central line placement. TECHNIQUE: A single frontal view of the chest was obtained. COMPARISON: Chest single view 09/07/2023, CT abdomen and pelvis 09/06/2023 FINDINGS: There are interstitial opacities in the lower lung zones. No pleural effusion or pneumothor ax. Cardiomegaly is noted. A right internal jugular central venous catheter is seen with tip at the s uperior cavoatrial junction. IMPRESSION: 1. Interstitial opacities in the lower lung zones, consistent with mild atelectasis versus mild pulmo nary edema. 2. Cardiomegaly. Reviewed, dictated and finalized at location E. IMPRESSION: 1. Interstitial opacities in the lower lung zones, consistent with mild atelect asis versus mild pulmonary edema. 2. Cardiomegaly.
--- NOTE | ~2023-09-05 | XR_ITS ---
Portable chest x-ray Comparison: 09/12/2023 Clinical History: Pulmonary edema Findings: There is minimal central congestive change and probable mild bibasilar pulmonary edema. No definite pleural effusions. Cardiomediastinal silhouette is stable. Bones and soft tissues are unre markable. Impression: Central congestive change and mild bibasilar pulmonary edema. Stable cardiomegaly. Reviewed, dictated and finalized at [facility]. Impression: Central congestive change and mild bibasilar pulmonary edema. Stable cardiomegaly.
--- NOTE | ~2023-09-05 | XR_ITS ---
EXAMINATION: XR chest 1V portable 09/07/2023 08:11 INDICATION: Sepsis PROCEDURE: AP portable chest COMPARISON: Comparison to multiple prior studies sequentially, with oldest reviewed study dated 04/2023. FINDINGS: The lungs are clear. Cardiomegaly.. There are no pleural effusions. There is no pneumotho rax suspected. IMPRESSION: 1: NO ACUTE CARDIOPULMONARY DISEASE. Reviewed, dictated and finalized at location B.
--- NOTE | ~2023-09-05 | CT_ITS ---
EXAMINATION: CT abdomen pelvis wo con DATE: 09/13/2023 08:34 INDICATION: Acute kidney injury. Bacteremia. Abnormal liver function tests. TECHNIQUE: Computed tomography (CT) of the abdomen and pelvis was performed without intravenous contr ast. Automated exposure control and iterative reconstruction technique were employed. The dose-length product was 1493.19 mGy-cm. COMPARISON: CT abdomen and pelvis 09/06/2023. FINDINGS: The visualized portions of lung bases demonstrate moderate-sized right and small left pleur al effusions. There is dependent atelectasis bilaterally. Hepatomegaly is noted. No pericardial effus ion. There are coronary artery calcifications. The liver, gallbladder, spleen, pancreas, and left adr enal gland are normal. There is a 14 mm mass in right adrenal gland measuring low attenuation, consis tent with an adenoma. There is a 2 mm stone in right kidney. There is cortical thinning of the kidney s, left worse than right. There is a 12 mm cyst in left kidney. There is calcified atherosclerosis of the aorta and many of the other arteries. A catheter decompresses the bladder. There are no dilated loops of bowel. The appendix is not visualized. There are no pathologically enlarged lymph nodes. The re is no free intraperitoneal fluid. Body wall edema is noted. Presacral edema is noted. There is mil d thoracic and lumbar spondylosis. IMPRESSION: 1. Moderate-sized right and small left pleural effusions. 2. Cortical thinning of the kidneys. No hydronephrosis. Reviewed, dictated and finalized at location A.
--- NOTE | ~2023-09-05 | XR_ITS ---
Portable chest x-ray Comparison: 09/11/2023 Clinical History: Pulmonary edema Findings: Right IJ line unchanged. Lungs are clear, without focal consolidation or pleural effusion. Cardiomediastinal silhouette is stable. Bones and soft tissues are unremarkable. Impression: Clear lungs. Stable cardiomegaly. Stable right IJ line. Reviewed, dictated and finalized at location . Impression: Clear lungs. Stable cardiomegaly. Stable right IJ line.
--- NOTE | ~2023-09-05 | CT_ITS ---
EXAMINATION: CT abdomen pelvis wo con DATE: 09/06/2023 11:20 INDICATION: Evaluate for pyelonephritis TECHNIQUE: Computed tomography (CT) of the abdomen and pelvis was performed without intravenous contr ast. The dose-length product was 1583.29 mGy-cm. Automated exposure control and iterative reconstruct ion technique were employed. COMPARISON: CT dated 05/20/2023. FINDINGS: Small pleural effusions. Cardiomegaly. Dependent atelectasis. There is atherosclerosis. Hep atomegaly. Gallbladder is present. The spleen, pancreas, left kidney are unremarkable. There are nono bstructing right renal stones. No contrast administered to evaluate for renal enhancement. There is a small low-density lesion in the left kidney, most likely benign cysts. Chronic nonspecific perinephr ic stranding. There is mild right periureteral edema. This is new compared with prior examination. No definite ureteral stone. Bladder is decompressed. No abnormal pelvic masses or fluid collections. IMPRESSION: 1. Nonspecific right periureteral edema. Cannot exclude ascending urinary tract infection. 2: Small pleural effusions. 3: Hepatomegaly. 4: Cardiomegaly. Small pericardial effusion. 5: Nonobstructing right nephrolithiasis. Reviewed, dictated and finalized at location B.
--- NOTE | ~2023-09-05 | CT_ITS ---
EXAMINATION: CT brain wo con DATE: 09/05/2023 22:00 INDICATION: Fall. Weakness. Patient on anticoagulant medication. TECHNIQUE: Computed tomography (CT) of the head was performed without intravenous contrast. The mA wa s adjusted according to patient size. Iterative reconstruction technique was employed. Exam dose: 75 6.67 mGy-cm total exam DLP. COMPARISON: 06/01/2023 MR brain/brainstem 05/31/2023 CT brain FINDINGS: There is extensive streak artifact on the lower images from dental fillings. There is nonspecific diminished attenuation of the cerebral white matter, likely due to chronic small vessel ischemic changes. There is moderately prominent central and cortical cerebral volume loss. Bilateral carotid siphon internal carotid artery calcifications. There is evidence of old right occipital infarct. No intracranial mass lesion or hemorrhage or cerebrovascular accident is noted otherwise. Approximately 12 mm mucous retention cyst or polyp in the posterior right maxillary antrum. Minimal m ucoperiosteal thickening in the lower maxillary antra bilaterally. Moderate soft tissue thickening of the sphenoid sinuses. Focal posterior soft tissue thickening in the right ethmoid air cells. The par anasal sinuses are otherwise unremarkable. Normal development and aeration of the mastoid air cells. No skull fracture or abnormal bone destruction. IMPRESSION: No skull fracture or acute intracranial finding Cerebral atherosclerosis and chronic small vessel ischemic changes of the cerebral white matter Moderately prominent central and cortical cerebral volume loss Old right occipital infarct Paranasal sinus disease Reviewed, dictated and finalized at Location A. Reviewed, dictated and finalized at location J. IMPRESSION: No skull fracture or acute intracranial finding Cerebral atherosclerosis and chronic small vessel ischemic changes of the cereb ral white matter Moderately prominent central and cortical cerebral volume loss Old right occipital infarct Paranasal sinus disease
--- NOTE | ~2023-09-05 | XR_ITS ---
Portable chest x-ray Comparison: 09/09/2023 Clinical History: Pulmonary edema Findings: Right IJ line unchanged. Central congestive change and mild bibasilar pulmonary edema pres ent. Probable minimal pleural effusions. Cardiomediastinal silhouette is stable. Bones and soft tiss ues are unremarkable. Impression: Mild bibasilar pulmonary edema and minimal pleural effusions. Stable support line. Reviewed, dictated and finalized at location . Impression: Mild bibasilar pulmonary edema and minimal pleural effusions. Stable support line.
--- NOTE | ~2023-09-05 | XR_ITS ---
XR chest 1V portable DATE: 09/06/2023 21:56 INDICATION: Increased oxygen requirement TECHNIQUE: Portable upright AP chest on 09/06/2023 at 2144 hours COMPARISON: 09/06/2023 portable AP chest at 0021 hours FINDINGS: Cardiomegaly. Aortic arch calcification. There is mild elevation of the right diaphragm. Mild atelectasis is suggested at the right lung base. The lungs otherwise appear clear. No pleural effusion or pulmonary vascular congestion or pneumothorax. Osteopenia. IMPRESSION: Cardiomegaly, aortic atherosclerosis Mild elevation right diaphragm and mild atelectasis at right lung base Osteopenia Reviewed, dictated and finalized at location J.
--- NOTE | ~2023-09-05 | XR_ITS ---
Portable chest x-ray Comparison: 09/10/2023 Clinical History: Pulmonary edema Findings: Right IJ line unchanged. Pulmonary edema is improved, probable minimal residual central co ngestive change. Possible minimal right pleural effusion. Cardiomediastinal silhouette is stable. Luis kevin and soft tissues are unremarkable. Impression: Improving pulmonary edema with central congestive change and probable minimal right pleural effusion. Stable support line. Reviewed, dictated and finalized at location M. Impression: Improving pulmonary edema with central congestive change and probable minimal r ight pleural effusion. Stable support line.
[2023-09-05 20:57] VITALS: O2SAT 98
[2023-09-05 20:58] VITALS: PULSE 83; RESP 19; TEMP 36.5; O2SAT 89
[2023-09-05 21:01] VITALS: BP 101/76; PULSE 75; RESP 22; O2SAT 98
[2023-09-05 21:10] VITALS: PULSE 97
[2023-09-05 21:15] LABS: Basophils Absolute Auto 0.1 K/mm3 (0.0-0.1); Basophils Percent Auto 0.4 % (0.2-1.2); Eosinophils Absolute Auto 0.1 K/mm3 (0-0.3); Eosinophils Percent Auto 0.4 % (0-4.4); Immature Granulocyte Absolute 0.26 K/mm3 (0.00-0.031); Immature Granulocyte Percent A 1.2 % (0-0.5); Lymphocytes Absolute Auto 0.37 K/mm3 (0.9-3.2); Lymphocytes Percent Auto 1.7 % (18.3-44.2); Mean Corpuscular HGB Conc 30.8 g/dl (32-36); Mean Corpuscular Hemoglobin 31.9 pg (26-34); Mean Corpuscular Volume 103.6 fl (80-100); Mean Platelet Volume 11.5 fl (7.4-10.4); Monocytes Absolute Auto 1.8 K/mm3 (0.1-0.6); Monocytes Percent Auto 8.3 % (2.6-8.5); Neutrophils Absolute Auto 19.5 K/mm3 (1.3-6.7); Platelet Count Result 196 k/mm3 (150-375); Red Blood Count 2.51 M/mm3 (4.2-5.4); Red Cell Distribution Width 17.4 % (11.5-14.5); White Blood Count 22.1 K/mm3 (4.5-10.0)
[2023-09-05 21:28] LABS: Alanine Aminotransferase 8 U/L (6-35); Albumin Level 3.9 g/dL (3.5-5.1); Alkaline Phosphatase 150 U/L (38-126); Anion Gap 14 mmol/L (4-12); Aspartate Amino Transferase 20 U/L (14-36); Bilirubin,Total 0.4 mg/dL (0.2-1.3); Blood Urea Nitrogen 35 mg/dL (7-17); Calcium 9.3 mg/dL (8.4-10.2); Carbon Dioxide 20 mmol/L (22-30); Chloride 100 mmol/L (98-107); Estimated CRCL calculation 26 ml/min; Estimated Glomerular Filt Rate 24; Glucose 261 mg/dL (65-110); Sodium 134 mmol/L (137-145)
[2023-09-05 21:29] LABS: Lactic Acid Reflex 2.3 mmol/L (0.7-2.0)
[2023-09-05 21:30] LABS: Appearance Urine Cloudy (Clear); Bacteria Urine 4+ /hpf; Bilirubin Urine Negative (Negative); Blood Urine 3+ (Negative); Color Urine Yellow (Yellow); Glucose Urine UA Negative (Negative); Ketones Urine Negative (Negative); Leukocyte Esterase Ur 2+ LEU/UL (Negative); Need Manual Microscopic Reviewed; Nitrate Urine Positive (Negative); Protein Urine 3+ mg/dL (Negative); RBC Urine >100 /hpf (0-2); Specific Grav Ur 1.014 (1.001-1.035); Squamous Epithelial Cell Urine None Seen /hpf (Few); WBC Urine >100 /hpf (0-3)
[2023-09-05 21:32] LABS: Add Urine Microscopic? YES
--- NOTE | 2023-09-05 21:49 | ED.WEAKNESS ---
HPI - Weakness General Chief complaint: Weakness Stated complaint: GEN WKNS, FALL, URINARY FREQ & INCONTINENCE Time Seen by Provider: 09/05/23 21:02 Source: patient and family Limitations: no limitations History of Present Illness HPI Narrative: patient presents with generalized weakness. Due to this it is reported that she slid out of bed striking her head On the wall. She is having pain along her left cheek and headache. She denies any loss of consciousness. she has been incontinent of urine complaining of increased frequency for the past 3 days associated with intermittent chills. She is on Eliquis for history of atrial fibrillation. She has a history of COPD and heart failure for which she wears 3 L of oxygen which she uses p.r.n.. She is complaining of pain along her groin and on the right side of her pannus as well as on her bottom. Related Data Home Medications Medication Instructions Recorded Confirmed atorvastatin 80 mg tablet 80 mg PO QAM 12/10/19 09/06/23 carbidopa 25 mg-levodopa 100 mg 3 tablet PO TID 12/10/19 09/06/23 tablet allopurinol 100 mg tablet 100 mg PO DAILY 12/12/21 09/06/23 empagliflozin 10 mg tablet 10 mg PO DAILY 12/12/21 09/06/23 (Jardiance) ipratropium 0.5 mg-albuterol 3 mg 3 ml inhalation Q6H 12/12/21 09/06/23 (2.5 mg base)/3 mL nebulization soln prazosin 5 mg capsule 5 mg PO HS 12/12/21 09/06/23 ropinirole 0.5 mg tablet 0.5 mg PO HS 12/12/21 09/06/23 acetaminophen 650 mg tablet 650 mg PO Q6H PRN Pain (Scale 12/23/21 09/06/23 Score 1-3) albuterol sulfate 90 mcg/actuation 2 puff inhalation QID PRN 12/23/21 09/06/23 aerosol inhaler Shortness Of Breath Or Wheezing quetiapine 25 mg tablet 25 mg PO HS 12/23/21 09/06/23 gabapentin 100 mg PO TID 12/29/21 09/06/23 fluvoxamine 100 mg tablet 100 mg PO QHS 02/15/22 09/06/23 amiodarone 200 mg PO DAILY 08/28/22 09/06/23 apixaban 5 mg tablet (Eliquis) 2.5 mg PO Q12HR 08/28/22 09/06/23 pantoprazole 40 mg tablet,delayed 40 mg PO QAM 08/28/22 09/06/23 release Breo Ellipta See Rx Instructions .Route .COMPLEX 09/02/22 09/06/23 polyethylene glycol 3350 17 gram 17 g PO QAM PRN Constipation 09/06/23 09/06/23 oral powder packet (Miralax) Allergies Allergy/AdvReac Type Severity Reaction Status Date / Time iodine Allergy Severe Hives Verified 05/06/22 12:41 latex Allergy Severe Hives Verified 05/06/22 12:41 Contrast Media Allergy Mild Hives Uncoded 05/06/22 12:41 [facility] Past Medical History Medical History Acute hyperkalemia Anxiety BMI greater than 40 Chronic anemia Chronic kidney disease, stage 3 Baseline creatinine ranges between 1.2 and 1.50. Chronic obstructive pulmonary disease Depression Diabetic polyneuropathy Gastroesophageal reflux disease GI bleed (01/2010) Secondary to peptic ulcer. Heart failure with preserved ejection fraction History of DVT (deep vein thrombosis) Hyperlipidemia Hypertension Hypothyroidism Junctional rhythm Kidney stones Neuropathy Obstructive sleep apnea Patient does not use PAP therapy at nighttime. Osteoarthritis Parkinson disease Restless leg syndrome Type 2 diabetes mellitus Weakness of left lower extremity Surgical History Surgical History History of bilateral knee arthroplasty History of hysterectomy History of sinus surgery Family History Family History Grandparent Diabetes mellitus Acute myocardial infarction Father Acute myocardial infarction Mother Acute myocardial infarction Social History Social History Social History: Surrogate decision maker: Fly Rondon, . Code status: Full code. Smoking packs per day: 1 Smoking cigarettes per day: 20.0 Years smoked: 40 Smoking pack-years: 40.00 Smoking status: Never smoker Second hand tobacco
[2023-09-05 21:50] LABS: NT Pro B Type Natriuretic Pept 9130 pg/mL (19.9-100)
[2023-09-05] MEDS: SODIUM CHLORIDE 0.9% IV 1,000 ML 999 ML IV CONT (21:58)
[2023-09-05 22:19] LABS: Magnesium 1.6 mg/dL (1.6-2.3)
[2023-09-05 22:44] LABS: Influenza A QL RT-PCR Negative (Negative); Influenza B QL RT-PCR Negative (Negative); RSV RNA, RT-PCR Negative (Negative); SARS-CoV-2 RNA PCR Negative (Negative)
[2023-09-06] VITALS (22 sets, daily range): BP systolic 96–140; BP diastolic 48–64; PULSE 56–92; RESP 12–24; TEMP 35.8–38.3; O2SAT 94–99; BMI 52.2
[2023-09-06 00:12] LABS: Reflex Lactic Acid Yes or No Add Lactic
--- NOTE | 2023-09-06 00:22 | PM.IMHP ---
H&P: HPI History of Present Illness Date/Time: 09/06/23 00:22 Chief Complaint: AMS Narrative: This is a 72-year-old female with past medical history significant for chronic hypoxic respiratory failure on supplemental oxygen by nasal cannula 3 L at home, morbid obesity, insulin-dependent diabetes mellitus, gout, COPD/ emphysema, dyslipidemia, atrial fibrillation, chronic kidney disease, hypertension, GERD, restless leg syndrome, chronic anemia, diabetic purely neuropathy, GERD, Parkinson's. patient was brought to the emergency room for evaluation due to generalized weakness, altered mental status. Preliminary workup was significant for lung infiltrate present on chest x-ray a urinalysis was significant for numerous WBCs present. History has been obtained from is at bedside patient is obtunded EXAMINATION: CT brain wo con DATE: 09/05/2023 22:00 INDICATION: Fall. Weakness. Patient on anticoagulant medication. TECHNIQUE: Computed tomography (CT) of the head was performed without intravenous contrast. The mA was adjusted according to patient size. Iterative reconstruction technique was employed. Exam dose: 756.67 mGy-cm total exam DLP. COMPARISON: 06/01/2023 MR brain/brainstem 05/31/2023 CT brain FINDINGS: There is extensive streak artifact on the lower images from dental fillings. There is nonspecific diminished attenuation of the cerebral white matter, likely due to chronic small vessel ischemic changes. There is moderately prominent central and cortical cerebral volume loss. Bilateral carotid siphon internal carotid artery calcifications. There is evidence of old right occipital infarct. No intracranial mass lesion or hemorrhage or cerebrovascular accident is noted otherwise. Approximately 12 mm mucous retention cyst or polyp in the posterior right maxillary antrum. Minimal mucoperiosteal thickening in the lower maxillary antra bilaterally. Moderate soft tissue thickening of the sphenoid sinuses. Focal posterior soft tissue thickening in the right ethmoid air cells. The paranasal sinuses are otherwise unremarkable. Normal development and aeration of the mastoid air cells. No skull fracture or abnormal bone destruction. IMPRESSION: No skull fracture or acute intracranial finding Cerebral atherosclerosis and chronic small vessel ischemic changes of the cerebral white matter Moderately prominent central and cortical cerebral volume loss Old right occipital infarct Paranasal sinus disease EXAMINATION: CT facial bones wo con DATE: 09/05/2023 22:00 INDICATION: FALL . TECHNIQUE: Computed tomography (CT) of the facial bones and maxillofacial region was performed without intravenous contrast. Automated exposure control and iterative reconstruction technique were employed. The dose-length product was 858.13 mGy-cm. COMPARISON: None. FINDINGS: Mild motion artifact at the mandible. Soft Tissues: Soft tissue swelling over the left cheek. Facial bones: No acute fracture. No lytic or blastic process. Osteoarthritic changes at the bilateral TMJs. Eyes: The globes are intact. Bilateral lens replacements. The soft tissue planes of the orbits are maintained. Paranasal Sinuses: Minimal bilateral mastoid fluid. Bilateral maxillary mucosal thickening. Retention cysts/polyps in the right maxillary and sphenoid sinuses. Mild mucosal thickening in the ethmoid sinuses. Minimal aerated secretions in the right posterior ethmoid sinus. Foreign Bodies: No radiopaque foreign bodies. Other Findings: None. IMPRESSION: No evidence of acute facial bone fracture. Minimal aerated secretions in the posterior right ethmoid sinus may reflect sinusitis or mild mucosal hemorrhage. Review of Systems Review of Systems: ROS unobtainable: Yes unobtainable due to mental status ( obtundation/lethargy) PMFSH Past Medical History Medical History (Updated 09/06/23 @ 00:02 by Maye Bello MD) Acute hyperkalemia Anxiety BMI gr
[2023-09-06] MEDS: SODIUM CHLORIDE 0.9% IV 1,000 ML 999 ML IV CONT (00:50)
[2023-09-06] MEDS: VANCOMYCIN 1,500 MG/NS 500 ML 1,500 MG/500 ML BAG 250 MG IVPB (01:11)
[2023-09-06 01:13] LABS: Lactic Acid 0.9 mmol/L (0.7-2.0)
--- NOTE | 2023-09-06 02:01 | ADMGEN ---
This patient, Jenni Rondon, was admitted to [facility] Surg Room 302-01. Patient/family oriented to hospital policies and general routines including ID bracelet, bed and alarms, visiting hours, pain management, procedures, bathroom and other care routines, personal items, smoking policy, room service/diet, and visiting hours. Information on how to activate the Rapid Response Team has been discussed. Patient/Family are encouraged to report perceived risks to care and to ask questions if they do not understand what they are told or what they should do.
[2023-09-06] MEDS: ACETAMINOPHEN 325 MG TABLET 650 MG PO (03:22)
[2023-09-06 04:48] LABS: Glucose Point of Care 162 mg/dl (65-105)
[2023-09-06] MEDS: traMADol HCL (*CRX) 50 MG TABLET PO (05:32)
--- NOTE | 2023-09-06 06:51 | PM.IMPN ---
Progress Note: A&P Assessment and Plan (1) Sepsis: Code(s): A41.9 - Sepsis, unspecified organism Status: Acute Assessment and Plan: Meets SIRS criteria: WBC 22.1, lactic acid 2.3 on admission. Febrile. Tachypneic. - WBC downtrending, 15.8 on am labs - lactic acid: 2.3 on admission, downtrended to 0.9 - Received sepsis bolus in the ED. - suspected source: UTI - blood cultures drawn on 09/04: preliminary: gram negative bacilli - UA: Cloudy appearance with 3+ protein, 3+ blood, positive nitrates, 2+ leukocytes, >100 RBC, >100 WBC, 4+ bacteria - UC obtained on 09/04: pending - CXR: Likely congestive heart failure with cardiomegaly, pulmonary vascular congestion and minimal pulmonary edema. - Covid/Flu/RSV negative - Antibiotics: Rocephin started on 09/04 - Monitor vital signs, I&Os, neuro status and patient is a fall risk - Monitor serum electrolytes and CBC (2) Acute UTI: Code(s): N39.0 - Urinary tract infection, site not specified Status: Acute Assessment and Plan: - UA: Cloudy appearance with 3+ protein, 3+ blood, positive nitrates, 2+ leukocytes, >100 RBC, >100 WBC, 4+ bacteria - UC obtained on 09/04: pending - previous micro reviewed 09/06/22: Proteus mirabilis with resistance to macrobid 02/14/22: E coli with resistance to augmentin, ampicillin, and cefazolin 12/19/21: Enterococcus species pansensitive 12/16/19: E coli pansensitive - started on Ceftriaxone 09/04 (3) Acute lactic acidosis: Code(s): E87.21 - Acute metabolic acidosis Status: Acute Assessment and Plan: Lactic acid 2.3 on admission. Received sepsis bolus in the ED. Lactic acid downtrended to 0.9 on reassessment. (4) Acute kidney injury superimposed on CKD: Code(s): N17.9 - Acute kidney failure, unspecified; N18.9 - Chronic kidney disease, unspecified Status: Acute Assessment and Plan: BUN/Cr 25/2.0 on admission. Baseline 1.4-1.8. - BUN/Cr 38/2.0 on am labs - Avoid nephrotoxic medications - Renally dose medications - Monitor vitals and I/O - Monitor serum electrolytes and CBC (5) Hypertension: Qualifiers: Hypertension type: primary hypertension Qualified Code(s): I10 - Essential (primary) hypertension Code(s): I10 - Essential (primary) hypertension Status: Chronic Assessment and Plan: Chronic, well controlled on home medications. - Metoprolol 50 mg daily - Prazosin 5 mg daily - Monitor (6) Heart failure with preserved ejection fraction: Code(s): I50.30 - Unspecified diastolic (congestive) heart failure Status: Chronic Assessment and Plan: Chronic, does not appear to be in acute exacerbation. - Echo 06/15/23: LVEF 60-65% with moderate pulmonary hypertension - BNP: 9130 - CXR: Likely congestive heart failure with cardiomegaly, pulmonary vascular congestion and minimal pulmonary edema. - Monitor (7) Chronic obstructive pulmonary disease: Code(s): J44.9 - Chronic obstructive pulmonary disease, unspecified Status: Acute Assessment and Plan: Chronic, does not appear to be in acute exacerbation. Patient chronically on 3L NC. - Monitor Time Spent With Patient Time with patient: 25 - 35 minutes Subjective Date/time seen: 09/06/23 06:51 Interval history: 72 year old female with past medical history of COPD with chronic respiratory failure on supplemental oxygen of 3L NC, insulin dependent diabetes, atrial fibrillation, CKD, HTN, Parkinson's, and CHF presents to the hospital for generalized weakness and altered mental status. Patient is pleasant lying in bed. She remains AOx4. She endorses abdominal pain and right flank pain that radiates to her groin. She was febrile today requiring Tylenol. Her blood cultures are positive for gram negative bacteria likely ecoli due to her ongoing UTI. Discussed patient with infectious disease and will continue the rocphin pending sensitivities. An abdominal CT was obtained to rule
[2023-09-06 07:33] LABS: Basophils Percent Auto 0.3 % (0.2-1.2); Hemoglobin 8.5 g/dL (12.0-15.0); Immature Granulocyte Absolute 0.09 K/mm3 (0.00-0.031); Immature Granulocyte Percent A 0.6 % (0-0.5); Lymphocytes Absolute Auto 0.37 K/mm3 (0.9-3.2); Lymphocytes Percent Auto 2.3 % (18.3-44.2); Mean Corpuscular HGB Conc 29.3 g/dl (32-36); Mean Corpuscular Hemoglobin 31.3 pg (26-34); Mean Corpuscular Volume 106.6 fl (80-100); Mean Platelet Volume 11.6 fl (7.4-10.4); Monocytes Absolute Auto 0.8 K/mm3 (0.1-0.6); Monocytes Percent Auto 5.1 % (2.6-8.5); Neutrophils Absolute Auto 14.5 K/mm3 (1.3-6.7); Neutrophils Percent Auto 91.7 % (45.5-73.1); Platelet Count Result 184 k/mm3 (150-375); Red Blood Count 2.72 M/mm3 (4.2-5.4); Red Cell Distribution Width 17.7 % (11.5-14.5); White Blood Count 15.8 K/mm3 (4.5-10.0)
[2023-09-06] MEDS: FLUTICASONE/SALMETEROL 115-21 MCG INHALER 1 PUFF 2 PUFF INHALATION ×2 (07:41→20:25)
[2023-09-06 07:43] LABS: Glucose Point of Care 169 mg/dl (65-105)
[2023-09-06 07:55] LABS: Alanine Aminotransferase 6 U/L (6-35); Albumin Level 4.1 g/dL (3.5-5.1); Alkaline Phosphatase 136 U/L (38-126); Anion Gap 15 mmol/L (4-12); Aspartate Amino Transferase 27 U/L (14-36); Bilirubin,Total 0.4 mg/dL (0.2-1.3); Blood Urea Nitrogen 38 mg/dL (7-17); Calcium 8.6 mg/dL (8.4-10.2); Carbon Dioxide 17 mmol/L (22-30); Chloride 101 mmol/L (98-107); Estimated CRCL calculation 31 ml/min; Estimated Glomerular Filt Rate 24; Glucose 166 mg/dL (65-110); Potassium 4.7 mmol/L (3.4-5.0); Sodium 133 mmol/L (137-145)
[2023-09-06 08:12] LABS: Anisocytosis 1+; Hypochromasia 1+; Macrocytosis 1+ (NORMAL); Platelet Estimate Adequate (Adequate); Schistocytes None Seen
[2023-09-06] MEDS: CARBIDOPA/LEVODOPA 25/100 MG TABLET 3 TABLET PO ×3 (08:19→16:54)
[2023-09-06] MEDS: OXcarbazepine 300 MG TABLET PO ×2 (08:19→20:48)
[2023-09-06] MEDS: PRIMIDONE 50 MG TABLET PO ×2 (08:19→20:51)
[2023-09-06] MEDS: FLUoxetine HCL 20 MG CAPSULE 40 MG PO ×2 (08:20→20:47)
[2023-09-06] MEDS: ATORVASTATIN 40 MG TABLET 80 MG PO (08:20)
[2023-09-06] MEDS: GABAPENTIN 100 MG CAPSULE PO ×3 (08:20→16:54)
[2023-09-06] MEDS: METOPROLOL SUCCINATE EXT REL 50 MG TABCR PO (08:20)
[2023-09-06] MEDS: DOXEPIN HCL 25 MG CAPSULE PO ×2 (08:20→20:47)
[2023-09-06] MEDS: ONDANSETRON INJ 4 MG/2 ML VIAL IV PUSH (08:20)
[2023-09-06] MEDS: APIXABAN 2.5 MG TABLET PO ×2 (08:20→20:47)
[2023-09-06] MEDS: PANTOPRAZOLE 40 MG TABLET PO (08:20)
[2023-09-06] MEDS: allopurinoL 100 MG TABLET PO (08:21)
[2023-09-06] MEDS: AMIODARONE HCL 200 MG TABLET BY MOUTH (08:21)
[2023-09-06] MEDS: ACETAMINOPHEN 325 MG TABLET 650 MG BY MOUTH (08:58)
[2023-09-06] MEDS: ALPRAZolam (*CRX) 0.5 MG TABLET 1 MG PO (08:58)
[2023-09-06 11:32] LABS: Glucose Point of Care 223 mg/dl (65-105)
[2023-09-06] MEDS: INSULIN ASPART (*BKC) 100 UNITS/ML SUB-Q ×2 (12:25→16:55)
[2023-09-06] MEDS: TOLNAFTATE 1% POWDER 45 GM BTL 1 APPLIC TOPICAL ×2 (12:25→20:51)
[2023-09-06] MEDS: IPRATROPIUM 0.5 MG/ALBUTEROL SULFATE 2.5 MG AMPUL.NEB 3 ML INHALATION ×2 (13:36→20:25)
[2023-09-06] MEDS: HYDROcodone/acetaminophen (*CRX) 5-325 MG TABLET 1 TAB PO ×2 (14:46→19:57)
[2023-09-06 16:28] LABS: Glucose Point of Care 211 mg/dl (65-105)
[2023-09-06] MEDS: rOPINIRole HCL 0.5 MG TABLET PO (20:51)
[2023-09-06] MEDS: QUEtiapine FUMARATE 25 MG TABLET PO (20:51)
[2023-09-06 21:15] LABS: Glucose Point of Care 206 mg/dl (65-105)
[2023-09-06 22:00] LABS: Alveolar/Arterial O2 Gradient 143.9 mmHg; Base Excess ABG -7.8 mEq/l (+/-2.0); Fractional Inspired Oxygen 36 %; HCO3 ABG 17.1 mEq/l (22.0-26.0); Oxygen Content ABG 11.4 %vol (16.0-22.0); Oxygen Saturation ABG 94.5 % (95.0-100.0); Oxyhemoglobin 93.3 % THb (90.0-100.0); PCO2 ABG 32.5 mmHg (35.0-45.0); PO2 ABG 75.1 mmHg (80.0-100.0); PO2 FiO2 Ratio Arterial Blood 2.09 %; Total Hemoglobin 8.6 g/dL (12.0-18.0)
[2023-09-06 22:01] LABS: Device NASAL CANNULA; Modified Allen's Test Pass; Site Drawn RIGHT RADIAL
[2023-09-07] VITALS (37 sets, daily range): BP systolic 76–158; BP diastolic 40–92; PULSE 42–80; RESP 12–24; TEMP 36.6–38.2; O2SAT 88–100
[2023-09-07] MEDS: ACETAMINOPHEN 325 MG TABLET 650 MG BY MOUTH ×2 (00:30→22:27)
--- NOTE | 2023-09-07 00:59 | ECG_ITS ---
Test Date: 2023-09-07 01:13:19 Measurements Intervals [place] Rate: 58 P: 0 MO: 0 QRS: 91 QRSD: 109 T: 44 QT: 407 QTc: 402 Interpretive Statements ATRIAL FIBRILLATION WITH SLOW VENTRICULAR RESPONSE LOW QRS VOLTAGE- DIFFUSE LEADS INCOMPLETE RIGHT BUNDLE BRANCH BLOCK BORDERLINE T WAVE ABNORMALITY- ANTERIOR LEADS BASELINE ARTIFACT- I, III, AVR, AVL, AVF, V3 ABNORMAL ECG No previous ECG available for comparison Electronically Signed On 09-07-2023 07:52:22 CDT by Calin Fernandez D.O.
[2023-09-07 01:20] LABS: Glucose Point of Care 268 mg/dl (65-105)
--- NOTE | 2023-09-07 01:40 | PM.EVENT ---
Event Note Event Note Event Note: rapid response was called to patient's room after patient became diaphoretic, obtunded, rapid shallow breathing. Upon arrival to patient's room patient is visibly in distress. Vitals blood pressure 90/60 oxygen saturation is 97% on 3 L of oxygen by nasal cannula heart rate is 40s to 50s objective: Ill appearing subjective: I do not feel well am I going to ? general: Ill-appearing in moderate distress shallow rapid breathing diaphoretic cold and clammy HEENT: Atraumatic normocephalic neck supple no JVD no lymphadenopathies respiratory: Clear to auscultation cardiovascular: Heart sounds of low tone and intensity abdomen: Large pannus, no hepatosplenomegaly. Extremities: Bilateral lower extremity 1+ edema central nervous system: Obtunded cranial nerves 2-12 grossly intact purposeful movement of all 4 limbs assessment and plan: 1. hypotension /bradycardia: Likely med related patient given glucagon and hydrocortisone 12 lead EKG reviewed a stat magnesium phosphorous BMP troponin lactic acid CBC BMP coags will repeat EKG transferred to IMU wide open NS 1000 mL bolus 2-hyperkalemia: patient given calcium chloride x2 calcium gluconate times once bicarb amp x2 D50 1 amp 5 mg of insulin regular IV Lokelma 10 mg p.o.Transferred to ICU.
[2023-09-07] MEDS: HYDROCORTISONE SODIUM SUCCINATE 100 MG/2 ML VIAL IV PUSH (01:55)
[2023-09-07 01:56] LABS: Lactic Acid Reflex 3.2 mmol/L (0.7-2.0)
[2023-09-07] MEDS: GLUCAGON FOR INJ 1 MG VIAL IM ×2 (01:56→23:41)
--- NOTE | 2023-09-07 02:06 | ECG_ITS ---
Test Date: 2023-09-07 02:18:58 Measurements Intervals [place] Rate: 51 P: 0 MN: 0 QRS: 29 QRSD: 109 T: 36 QT: 472 QTc: 435 Interpretive Statements ATRIAL FIBRILLATION WITH SLOW VENTRICULAR RESPONSE LOW QRS VOLTAGE- DIFFUSE LEADS INCOMPLETE RIGHT BUNDLE BRANCH BLOCK BORDERLINE ST-T WAVE ABNORMALITY- ANTERIOR LEADS BASELINE ARTIFACT- I, II, AVR, AVL, AVF, V1-V6 ABNORMAL ECG Compared to ECG 09/07/2023 01:13:19 NO SIGNIFICANT CHANGE Electronically Signed On 09-07-2023 07:54:15 CDT by Calin Fernandez D.O.
--- NOTE | 2023-09-07 02:06 | PC.NURSE ---
PT had a change of conditions and a rapid response was called. Pt. was transferred to IMU room 204. Family was called.
[2023-09-07] MEDS: SODIUM BICARBONATE 8.4% 50 MEQ/50 ML SYRINGE 100 MEQ IV PUSH (02:35)
[2023-09-07] MEDS: CALCIUM CHLORIDE 1,000 MG/10 ML SYRINGE 1000 MG IV PUSH ×2 (02:35→03:00)
[2023-09-07 02:40] LABS: Basophils Percent Auto 0.2 % (0.2-1.2); Hematocrit 25.6 % (37.0-47.0); Hemoglobin 7.8 g/dL (12.0-15.0); Immature Granulocyte Absolute 0.09 K/mm3 (0.00-0.031); Immature Granulocyte Percent A 0.5 % (0-0.5); Lymphocytes Absolute Auto 0.65 K/mm3 (0.9-3.2); Lymphocytes Percent Auto 3.9 % (18.3-44.2); Mean Corpuscular HGB Conc 30.5 g/dl (32-36); Mean Corpuscular Volume 104.9 fl (80-100); Mean Platelet Volume 11.7 fl (7.4-10.4); Monocytes Absolute Auto 1.1 K/mm3 (0.1-0.6); Monocytes Percent Auto 6.9 % (2.6-8.5); Neutrophils Absolute Auto 14.6 K/mm3 (1.3-6.7); Neutrophils Percent Auto 88.5 % (45.5-73.1); Platelet Count Result 151 k/mm3 (150-375); Red Blood Count 2.44 M/mm3 (4.2-5.4); Red Cell Distribution Width 17.5 % (11.5-14.5); White Blood Count 16.5 K/mm3 (4.5-10.0)
[2023-09-07 02:49] LABS: INR 1.8; Prothrombin Time 21.1 Seconds (11.1-14.7)
[2023-09-07 02:50] LABS: Partial Thromboplastin Time 39.3 Seconds (22.3-36.8)
--- NOTE | 2023-09-07 02:50 | PC.NURSE ---
pt transferred from rm 204 in a bed with o2 via nasal cannula. Pt drowsy but answers questions. placed on monitor and izquierdo placed. Pt states she feels much better.
[2023-09-07] MEDS: SODIUM BICARBONATE 8.4% 50 MEQ/50 ML SYRINGE 200 MEQ IV PUSH (03:00)
[2023-09-07 03:05] LABS: Anisocytosis 1+; Hypochromasia 1+; Microcytosis 1+ (NORMAL); Platelet Estimate Adequate (Adequate); Schistocytes None Seen
[2023-09-07 03:10] LABS: Anion Gap 12 mmol/L (4-12); Blood Urea Nitrogen 48 mg/dL (7-17); Calcium 7.8 mg/dL (8.4-10.2); Carbon Dioxide 16 mmol/L (22-30); Chloride 98 mmol/L (98-107); Estimated CRCL calculation 21 ml/min; Estimated Glomerular Filt Rate 15; Glucose 234 mg/dL (65-110); Magnesium 1.8 mg/dL (1.6-2.3); Phosphorus 5.6 mg/dL (2.5-4.5); Potassium 6.4 mmol/L (3.4-5.0); Sodium 126 mmol/L (137-145); Troponin I 0.757 ng/mL (0.000-0.034)
[2023-09-07] MEDS: INSULIN HUMAN REGULAR (*BKC) 100 UNITS/ML IV PUSH (03:20)
[2023-09-07] MEDS: DEXTROSE 50% 25 GM/50 ML SYRINGE IV PUSH ×2 (03:20→09:26)
--- NOTE | 2023-09-07 03:26 | PC.NURSE ---
This patient, Jenni Rondon, was transferred to [ ICU6] on 09/07/23 at 0245. Personal belongings sent with patient. Report given to Juvenal MARIEE ]. Appropriate documentation sent with patient.
--- NOTE | 2023-09-07 03:27 | PC.NURSE ---
Patient arrived to IMU from [facility] [place], [place] room 302 at 0122 from rapid response. Report from KODI Mora at bedside. Patient is pale, diaphoretic, drowsy, with sluggish pupils, irregular heart rhythm, peaked t-waves. Dr Corrigan at arrived to bedside.
[2023-09-07] MEDS: CALCIUM GLUC 1,000 MG/NS 50 ML 1,000 MG/50 ML BAG 100 MG IVPB (03:40)
[2023-09-07] MEDS: SODIUM ZIRCONIUM CYCLOSILICATE 5 GM POWD.PACK PO (04:09)
[2023-09-07 04:42] LABS: Reflex Lactic Acid Yes or No Add Lactic
[2023-09-07 05:24] LABS: Cortisol Random > 123.00 ug/dL
[2023-09-07 05:34] LABS: Basophils Percent Auto 0.2 % (0.2-1.2); Hematocrit 25.1 % (37.0-47.0); Hemoglobin 7.8 g/dL (12.0-15.0); Immature Granulocyte Absolute 0.08 K/mm3 (0.00-0.031); Immature Granulocyte Percent A 0.5 % (0-0.5); Lymphocytes Absolute Auto 0.46 K/mm3 (0.9-3.2); Mean Corpuscular HGB Conc 31.1 g/dl (32-36); Mean Corpuscular Hemoglobin 32.1 pg (26-34); Mean Corpuscular Volume 103.3 fl (80-100); Mean Platelet Volume 12.2 fl (7.4-10.4); Monocytes Absolute Auto 0.7 K/mm3 (0.1-0.6); Monocytes Percent Auto 4.7 % (2.6-8.5); Neutrophils Percent Auto 91.6 % (45.5-73.1); Platelet Count Result 136 k/mm3 (150-375); Red Blood Count 2.43 M/mm3 (4.2-5.4); Red Cell Distribution Width 17.4 % (11.5-14.5); White Blood Count 15.2 K/mm3 (4.5-10.0)
[2023-09-07 05:45] LABS: Lactic Acid 1.6 mmol/L (0.7-2.0)
[2023-09-07 05:47] LABS: Anisocytosis 1+; Hypochromasia 1+; Platelet Estimate Adequate (Adequate); Schistocytes None Seen
[2023-09-07 05:58] LABS: Alanine Aminotransferase 157 U/L (6-35); Albumin Level 3.5 g/dL (3.5-5.1); Alkaline Phosphatase 134 U/L (38-126); Anion Gap 11 mmol/L (4-12); Bilirubin,Total 0.5 mg/dL (0.2-1.3); Blood Urea Nitrogen 51 mg/dL (7-17); Calcium 9.5 mg/dL (8.4-10.2); Carbon Dioxide 22 mmol/L (22-30); Chloride 96 mmol/L (98-107); Estimated CRCL calculation 20 ml/min; Estimated Glomerular Filt Rate 15; Glucose 243 mg/dL (65-110); Potassium 5.1 mmol/L (3.4-5.0); Sodium 129 mmol/L (137-145)
[2023-09-07 07:19] LABS: Aspartate Amino Transferase 1434 U/L (14-36)
[2023-09-07] MEDS: FLUTICASONE/SALMETEROL 115-21 MCG INHALER 1 PUFF 2 PUFF INHALATION ×2 (08:08→20:10)
--- NOTE | 2023-09-07 08:12 | WPDCNINT ---
Assessment and Plan Assessment and plan (1) Severe sepsis: Code(s): A41.9 - Sepsis, unspecified organism; R65.20 - Severe sepsis without septic shock Status: Acute Assessment and Plan: Patient with severe sepsis, hypotension elevated lactic acid, likely related to E coli UTI and Gram-negative bacteremia - patient has been adequately fluid-resuscitated -overnight lactic acid was elevated but has normalized -continue ceftriaxone (09/04) -09/04: Blood cultures growing Gram-negative bacilli / bottles -09/04: Urine cultures growing E coli, sensitivities pending -blood pressures improved with IV fluids and 1 dose of hydrocortisone and treatment of hyperkalemia (2) Acute UTI: Code(s): N39.0 - Urinary tract infection, site not specified Status: Acute Assessment and Plan: Treatment as above, urine cultures growing E coli, sensitivities pending (3) Hyperkalemia: Code(s): E87.5 - Hyperkalemia Status: Acute Assessment and Plan: Patient with hyperkalemia likely related to acute on chronic kidney disease -will treat with hyperkalemia protocol [facility] -will follow potassium levels (4) Acute kidney injury superimposed on CKD: Code(s): N17.9 - Acute kidney failure, unspecified; N18.9 - Chronic kidney disease, unspecified Status: Acute Assessment and Plan: Acute on chronic kidney disease likely related to hypotensive and, infection, severe sepsis -chronic kidney disease likely related to diabetes, chronic hypertension -baseline creatinine is 1.40-1.80 -patient has been adequately fluid-resuscitated -also has a history of it is heart failure with preserved ejection fraction -will check urine lytes, urine eosinophils with CK level -nephrology has been consulted -CT scan of the abdomen and pelvis did not show any hydronephrosis -will give a dose of albumin for intravascular volume expansion -continue to monitor urine output, electrolytes and renal function Creatinine this morning is up to 3.10 (5) EKG abnormality: Code(s): R94.31 - Abnormal electrocardiogram [ECG] [EKG] Status: Acute Assessment and Plan: EKG showed atrial fibrillation with slow ventricular response, incomplete right bundle branch block -could be related to hyperkalemia -elevated troponin -consulted cardiology (6) Chronic anemia: Code(s): D64.9 - Anemia, unspecified Status: Acute Assessment and Plan: Chronic anemia could be related to anemia of chronic disease -hemoglobin has been stable (7) Chronic obstructive pulmonary disease: Code(s): J44.9 - Chronic obstructive pulmonary disease, unspecified Status: Acute Assessment and Plan: History of COPD, uses 3 L nasal cannula at home -currently not in any exacerbation -chest x-ray this morning with no acute cardiopulmonary disease (8) Diabetes mellitus with chronic kidney disease: Code(s): E11.22 - Type 2 diabetes mellitus with diabetic chronic kidney disease Status: Chronic Assessment and Plan: History of diabetes with neuropathy and chronic kidney disease (9) Generalized weakness: Code(s): R53.1 - Weakness Status: Acute Assessment and Plan: Generalized weakness likely related to bacteremia and UTI -will have PT OT evaluate once patient is more stable (10) Heart failure with preserved ejection fraction: Code(s): I50.30 - Unspecified diastolic (congestive) heart failure Status: Chronic Assessment and Plan: History of heart failure with preserved ejection fraction -chest x-ray is within normal limits (11) History of DVT (deep vein thrombosis): Code(s): Z86.718 - Personal history of other venous thrombosis and embolism Status: Acute Assessment and Plan: Patient has a history of DVTs, on Eliquis (12) Hyperlipidemia: Qualifiers: Hyperlipidemia type: mixed hyperlipidemia Qualified Code(s): E78.2 - Mixed hyp
[2023-09-07 08:19] LABS: Lipase 72 U/L (23-300); Magnesium 1.9 mg/dL (1.6-2.3); Phosphorus 5.7 mg/dL (2.5-4.5)
[2023-09-07 08:20] LABS: Anion Gap 13 mmol/L (4-12); Blood Urea Nitrogen 55 mg/dL (7-17); Calcium 9.2 mg/dL (8.4-10.2); Carbon Dioxide 20 mmol/L (22-30); Chloride 96 mmol/L (98-107); Estimated CRCL calculation 21 ml/min; Estimated Glomerular Filt Rate 16; Glucose 236 mg/dL (65-110); Potassium 5.6 mmol/L (3.4-5.0); Sodium 129 mmol/L (137-145)
[2023-09-07 08:33] LABS: Troponin I 0.678 ng/mL (0.000-0.034)
[2023-09-07] MEDS: ALBUMIN HUMAN 25% 25 GM/100 ML 100 ML IVPB ×4 (08:36→23:46)
[2023-09-07] MEDS: INSULIN ASPART (*BKC) 100 UNITS/ML SUB-Q ×3 (08:36→16:40)
[2023-09-07] MEDS: cefTRIAXone 2 GM/NS 100 ML 2 GM/100 ML BAG IVPB (08:37)
[2023-09-07 08:49] LABS: Hemoglobin A1C 7.4 % (<5.7)
[2023-09-07] MEDS: ALBUTEROL SULFATE NEB 2.5 MG/3 ML INH 10 MG INHALATION (08:55)
[2023-09-07 09:02] LABS: CRP 37.7 mg/dL (<1.0); Creatine Kinase 254 U/L (30-135)
--- NOTE | 2023-09-07 09:21 | ECG_ITS ---
Test Date: 2023-09-07 02:17:56 Measurements Intervals [place] Rate: 49 P: 0 DC: 0 QRS: 40 QRSD: 110 T: 37 QT: 472 QTc: 429 Interpretive Statements JUNCTIONAL ESCAPE RHYTHM LOW QRS VOLTAGE- DIFFUSE LEADS INCOMPLETE RIGHT BUNDLE BRANCH BLOCK BORDERLINE T WAVE ABNORMALITY- ANTERIOR LEADS BASELINE WANDER- I, II, III, AVR, AVL, AVF, V1-V6 ABNORMAL ECG Compared to ECG 09/07/2023 01:13:19 ATRIAL FIBRILLATION NO LONGER PRESENT Electronically Signed On 09-07-2023 10:46:37 CDT by Calin Fernandez D.O.
--- NOTE | 2023-09-07 09:21 | ECG_ITS ---
Test Date: 2023-09-07 09:21:28 Measurements Intervals [place] Rate: 64 P: 22 HI: 184 QRS: 7 QRSD: 97 T: 57 QT: 435 QTc: 451 Interpretive Statements SINUS RHYTHM DELAYED PRECORDIAL R/S TRANSITION LOW QRS VOLTAGE IN PRECORDIAL LEADS BORDERLINE T WAVE ABNORMALITY- ANTERIOR LEADS BASELINE WANDER- V1-V2, V5 BORDERLINE ECG Compared to ECG 09/07/2023 02:18:58 NO SIGNIFICANT CHANGE Electronically Signed On 09-08-2023 08:00:52 CDT by Calin Fernandez D.O.
[2023-09-07] MEDS: SODIUM ZIRCONIUM CYCLOSILICATE 10 GM POWD.PACK PO (09:25)
[2023-09-07] MEDS: INSULIN HUMAN REGULAR (*BKC) 100 UNITS/ML 10 UNITS IV PUSH (09:26)
[2023-09-07] MEDS: SODIUM BICARBONATE 8.4% 50 MEQ/50 ML SYRINGE IV PUSH (09:26)
[2023-09-07 09:43] LABS: Hepatitis B Surface Antigen Negative (Negative)
[2023-09-07 09:49] LABS: HAV RESULT Negative (Negative); Hepatitis B Core IgM Result Negative (Negative)
[2023-09-07] MEDS: PANTOPRAZOLE 40 MG TABLET PO (09:50)
[2023-09-07] MEDS: APIXABAN 2.5 MG TABLET PO ×2 (09:52→20:17)
[2023-09-07] MEDS: GABAPENTIN 100 MG CAPSULE PO ×3 (09:52→16:36)
[2023-09-07] MEDS: TOLNAFTATE 1% POWDER 45 GM BTL 1 APPLIC TOPICAL ×2 (09:56→20:17)
[2023-09-07 09:58] LABS: Glucose Point of Care 296 mg/dl (65-105)
[2023-09-07 10:00] LABS: Hepatitis C Virus Antibody Negative (Negative)
[2023-09-07] MEDS: PRIMIDONE 50 MG TABLET PO ×2 (10:00→20:16)
[2023-09-07] MEDS: DOXEPIN HCL 25 MG CAPSULE PO ×2 (10:00→20:17)
[2023-09-07] MEDS: FLUoxetine HCL 20 MG CAPSULE 40 MG PO ×2 (10:00→20:17)
[2023-09-07] MEDS: OXcarbazepine 300 MG TABLET PO ×2 (10:00→20:16)
[2023-09-07] MEDS: CARBIDOPA/LEVODOPA 25/100 MG TABLET 3 TABLET PO ×3 (10:00→16:36)
[2023-09-07 10:26] LABS: Potassium Urine Random 73.8 meq/L; Sodium Urine Random 10 meq/L
--- NOTE | 2023-09-07 10:49 | PCPTNOTE ---
per RN, hold on therapy today d/t pt having a lot going on , will follow
[2023-09-07 11:04] LABS: Eosinophil Urine None Seen % (None Seen); Urine Eos QC 2nd Tech Confirmed
[2023-09-07 11:38] LABS: Glucose Point of Care 245 mg/dl (65-105)
--- NOTE | 2023-09-07 11:49 | PM.CNNEP ---
Assessment and Plan Assessment and plan (1) Acute kidney injury superimposed on CKD: Code(s): N17.9 - Acute kidney failure, unspecified; N18.9 - Chronic kidney disease, unspecified Status: Acute Assessment and Plan: Patient has chronic kidney disease. This is most likely due to diabetes and hypertension. She follows with Dr. Montoya as an outpatient. Her baseline creatinine runs around 1.5 per little bit less. The patient has acute kidney injury. Her creatinine is up to 3.2. It was already a bit high on admission and then courtney to its current level. Her urine electrolytes are pre renal. Renal ultrasound is negative CK is a little elevated but not enough to cause kidney problems. The patient does have bacteremia and sepsis which could be leading to this. She had low blood pressure on admission as well. She already has pulmonary hypertension and tricuspid regurgitation which can decreased forward flow and make the patient chronically pre renal. She was also on metolazone and bumetanide to control her swelling. She did not take any nonsteroidal anti-inflammatory agents or have any changes in medications before she came in. The patient's blood pressure is better. She is on antibiotics. Hopefully renal function will start to turn around soon. (2) Atrial fibrillation: Code(s): I48.91 - Unspecified atrial fibrillation Status: Chronic Assessment and Plan: Heart rate in the 40s and 50s (3) Diabetes mellitus with chronic kidney disease: Code(s): E11.22 - Type 2 diabetes mellitus with diabetic chronic kidney disease Status: Chronic Assessment and Plan: On Accu-Cheks and insulin sliding scale per hospitalist/line decorator (4) Hyponatremia: Code(s): E87.1 - Hypo-osmolality and hyponatremia Status: Resolved Assessment and Plan: The patient's sodium is chronically low, intermittently back to 2004 and fairly consistently in the last year TSH cortisol have been okay. 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 CT brain is unremarkable Chest CT back in June showed says multiple pulmonary nodules. She also has pulmonary hypertension. He has might contribute to hyponatremia She has been on hydrocodone, metolazone, and pantoprazole as an outpatient which could contribute. Quetiapine rarely causes hyponatremia so I doubt if this is playing a role Sodium level seems stable right now. Once off IV fluids we can start a fluid restriction. (5) Hyperkalemia: Code(s): E87.5 - Hyperkalemia Status: Acute Assessment and Plan: This was treated with medication will check again tomorrow (6) Pulmonary hypertension: Code(s): I27.20 - Pulmonary hypertension, unspecified Status: Acute (7) Hypertension: Qualifiers: Hypertension type: primary hypertension Qualified Code(s): I10 - Essential (primary) hypertension Code(s): I10 - Essential (primary) hypertension Status: Chronic Assessment and Plan: Blood pressure is just starting to improve. (8) Chronic anemia: Code(s): D64.9 - Anemia, unspecified Status: Acute Assessment and Plan: Hemoglobin is which is about where it has been running History of Present Illness Reason for Consult Consult date: 09/08/23 Chief Complaint Chief complaint: UTI with lactic acidosis History of Present Illness Narrative: Mary is a very pleasant 72-year-old lady who has multiple medical problems including chronic kidney disease stage 3 under the care of Dr. Montoya with a baseline creatinine between 1.2 and 1.5, hypertension, diabetes, anemia, COPD, GERD, peptic ulcer disease status post GI bleed in the past, diastolic dysfunction, sleep apnea but does not use a CPAP, hyperlipidemia, hypothyroidism, neuropathy, Parkinson's, restless leg syndrome. The patient says for the last few days she has been generally weak. She has also had some right back pain. In the middle o
[2023-09-07 11:55] LABS: Anion Gap 13 mmol/L (4-12); Blood Urea Nitrogen 52 mg/dL (7-17); Calcium 9.4 mg/dL (8.4-10.2); Carbon Dioxide 23 mmol/L (22-30); Chloride 95 mmol/L (98-107); Estimated CRCL calculation 19 ml/min; Estimated Glomerular Filt Rate 14; Glucose 292 mg/dL (65-110); Potassium 4.8 mmol/L (3.4-5.0); Sodium 131 mmol/L (137-145)
[2023-09-07 13:02] LABS: Glucose Point of Care 280 mg/dl (65-105)
[2023-09-07] MEDS: HYDROcodone/acetaminophen (*CRX) 5-325 MG TABLET 1 TAB PO (13:03)
--- NOTE | 2023-09-07 13:33 | PM.CNCAR ---
Assessment and Plan Assessment and plan (1) Troponin level elevated: Code(s): R79.89 - Other specified abnormal findings of blood chemistry Status: Acute Plan Mildly elevated troponin likely demand ischemia in the setting of CHF, Chetan I and sepsis, cannot rule out underlying coronary artery disease Paroxysmal AFib CHETAN on CKD likely related to prerenal and hypertension COPD on home oxygen Diabetes mellitus type 2 Plan Transthoracic echocardiogram If there is significant wall-motion abnormality consider further evaluation for coronary artery disease 1 kidney function stable Continue apixaban 2.5 mg b.i.d. Continue metoprolol Hold oral diuretic and resume when kidney function improved back to baseline Continue amiodarone History of Present Illness History of Present Illness Consult date/time: 09/07/23 13:33 Reason For Visit: UTI with lactic acidosis Narrative: 72-year-old female patient presents to the hospital with status post fall. Patient was rolling over in the bed and fell to the ground hit her face. She denies any loss of consciousness or dizziness. She did not sustain significant injuries. She has history of congestive heart failure. She has limited physical activity and using a walker. On admission she was noted to have infection possible urinary tract infection with bacteremia. She was also noted to have mildly elevated cardiac enzymes and abnormal EKG with T-wave inversion in V1 and V2. Patient denies any chest pain. Review of Systems Review of Systems: All systems reviewed & are unremarkable except as noted in HPI and below PMFSH Past Medical History Medical History Acute hyperkalemia Anxiety BMI greater than 40 Chronic anemia Chronic kidney disease, stage 3 Baseline creatinine ranges between 1.2 and 1.50. Chronic obstructive pulmonary disease Depression Diabetic polyneuropathy Gastroesophageal reflux disease GI bleed (01/2010) Secondary to peptic ulcer. Heart failure with preserved ejection fraction History of DVT (deep vein thrombosis) Hyperlipidemia Hypertension Hypothyroidism Junctional rhythm Kidney stones Neuropathy Obstructive sleep apnea Patient does not use PAP therapy at nighttime. Osteoarthritis Parkinson disease Restless leg syndrome Type 2 diabetes mellitus Weakness of left lower extremity Surgical History Surgical History History of bilateral knee arthroplasty History of hysterectomy History of sinus surgery Family History Family History Grandparent Diabetes mellitus Acute myocardial infarction Father Acute myocardial infarction Mother Acute myocardial infarction Social History Social History Social History: Surrogate decision maker: Fly Rondon, . Code status: Full code. Smoking packs per day: 1 Smoking cigarettes per day: 20.0 Years smoked: 40 Smoking pack-years: 40.00 Smoking status: Never smoker Second hand tobacco smoke exposure: No Alcohol intake: never Substance use: never Substance use type: does not use Do You Feel Safe in your Home?: No Lack of Transportation: No Lack of Food: Never True Current Housing: I Have Housing Concerned About Future Housing: No Difficulty Paying Gas/Electric Bills: No Difficulty Paying for Meds: No Currently Unemployed: No Education: High School Diploma/GED Difficulty w/ Childcare or Family Care: No Additional living arrangements comments: Resides in [place] with her . Occupation/Education: retired Spiritual care concerns: No Meds Home Medications and Allergies Home Medications Medication Instructions Recorded Confirmed Type atorvastatin 80 mg tablet 80 mg PO QAM 12/10/19 09/06/23 History carbidopa 25 mg-
--- NOTE | 2023-09-07 14:12 | PM.IMPN ---
Progress Note: A&P Assessment and Plan (1) Sepsis: Code(s): A41.9 - Sepsis, unspecified organism Status: Acute Assessment and Plan: Meets SIRS criteria: WBC 22.1, lactic acid 2.3 on admission. Febrile. Tachypneic. - WBC downtrending, 15.8 on am labs - lactic acid: 2.3 on admission, downtrended to 0.9 - Received sepsis bolus in the ED. - suspected source: UTI - blood cultures drawn on 09/04: preliminary: gram negative bacilli - UA: Cloudy appearance with 3+ protein, 3+ blood, positive nitrates, 2+ leukocytes, >100 RBC, >100 WBC, 4+ bacteria - UC obtained on 09/04: pending - CXR: Likely congestive heart failure with cardiomegaly, pulmonary vascular congestion and minimal pulmonary edema. - Covid/Flu/RSV negative - Antibiotics: Rocephin started on 09/04 - Monitor vital signs, I&Os, neuro status and patient is a fall risk - Monitor serum electrolytes and CBC (2) Acute UTI: Code(s): N39.0 - Urinary tract infection, site not specified Status: Acute Assessment and Plan: - UA: Cloudy appearance with 3+ protein, 3+ blood, positive nitrates, 2+ leukocytes, >100 RBC, >100 WBC, 4+ bacteria - UC obtained on 09/04: pending - previous micro reviewed 09/06/22: Proteus mirabilis with resistance to macrobid 02/14/22: E coli with resistance to augmentin, ampicillin, and cefazolin 12/19/21: Enterococcus species pansensitive 12/16/19: E coli pansensitive - started on Ceftriaxone 09/04 (3) Acute lactic acidosis: Code(s): E87.21 - Acute metabolic acidosis Status: Acute Assessment and Plan: Lactic acid 2.3 on admission. Received sepsis bolus in the ED. Lactic acid downtrended to 0.9 on reassessment. (4) Acute kidney injury superimposed on CKD: Code(s): N17.9 - Acute kidney failure, unspecified; N18.9 - Chronic kidney disease, unspecified Status: Acute Assessment and Plan: BUN/Cr 25/2.0 on admission. Baseline 1.4-1.8. - BUN/Cr 38/2.0 on am labs - Avoid nephrotoxic medications - Renally dose medications - Monitor vitals and I/O - Monitor serum electrolytes and CBC (5) Hypertension: Qualifiers: Hypertension type: primary hypertension Qualified Code(s): I10 - Essential (primary) hypertension Code(s): I10 - Essential (primary) hypertension Status: Chronic Assessment and Plan: Chronic, well controlled on home medications. - Metoprolol 50 mg daily - Prazosin 5 mg daily - Monitor (6) Heart failure with preserved ejection fraction: Code(s): I50.30 - Unspecified diastolic (congestive) heart failure Status: Chronic Assessment and Plan: Chronic, does not appear to be in acute exacerbation. - Echo 06/15/23: LVEF 60-65% with moderate pulmonary hypertension - BNP: 9130 - CXR: Likely congestive heart failure with cardiomegaly, pulmonary vascular congestion and minimal pulmonary edema. - Monitor (7) Chronic obstructive pulmonary disease: Code(s): J44.9 - Chronic obstructive pulmonary disease, unspecified Status: Acute Assessment and Plan: Chronic, does not appear to be in acute exacerbation. Patient chronically on 3L NC. - Monitor Plan 72-year-old female presented to the ED on 09/05/2023 his weakness and altered mental status. Patient noted to sirs and was diagnosed with severe sepsis secondary to UTI. Patient was adequately fluid resuscitated started on ceftriaxone and was admitted to the medical floor. On 09/06 rapid response with diaphoretic obtunded and rapid shallow breathing. Hypotensive and hyperkalemic patient was treated per protocol. Elevated troponin noted. Patient was given calcium chloride sodium bicarb hydrocortisone and was transferred to ICU for further treatment. Severe sepsis hypotension elevated lactic acid also has Gram-negative bacteremia Gram-negative bacteremia E coli. Urine culture sensitivity resistant to ceftriaxone will switch to meropenem UTI Hyperkalemia Paroxysmal Atrial fibrillat
[2023-09-07] MEDS: MEROPENEM 1 GM/NS 100 ML 1 GM/100 ML BAG IVPB (15:29)
[2023-09-07] MEDS: INSULIN GLARGINE (*BKC) 100 UNITS/ML 10 UNITS SUB-Q (15:30)
[2023-09-07 16:45] LABS: Glucose Point of Care 249 mg/dl (65-105)
[2023-09-07 18:36] LABS: Creatinine Urine 89.5 mg/dL; Total Protein Urine Random 90 mg/dL; Ur Ttl Prot Creatinine Ratio 1.01 mg/mg (0-0.20); Urea Random Urine 489 MG/DL
[2023-09-07 18:38] LABS: Sodium Urine Random 7 meq/L
[2023-09-07 18:49] LABS: Appearance Urine Turbid (Clear); Bacteria Urine None Seen /hpf; Bilirubin Urine Negative (Negative); Blood Urine 3+ (Negative); Color Urine Yellow (Yellow); Glucose Urine UA Negative (Negative); Ketones Urine Trace mg/dL (Negative); Leukocyte Esterase Ur 2+ LEU/UL (Negative); Need Manual Microscopic Reviewed; Nitrate Urine Negative (Negative); Non Pathogenic Casts >20; Protein Urine 2+ mg/dL (Negative); RBC Urine 51-100 /hpf (0-2); Specific Grav Ur 1.018 (1.001-1.035); Squamous Epithelial Cell Urine Few /hpf (Few); WBC Urine 51-100 /hpf (0-3); pH Urine 5.5 (5.0-9.0)
[2023-09-07 19:02] LABS: Add Urine Microscopic? YES
[2023-09-07] MEDS: METOPROLOL TARTRATE 50 MG TAB PO (20:16)
[2023-09-07] MEDS: QUEtiapine FUMARATE 25 MG TABLET PO (20:16)
[2023-09-07] MEDS: rOPINIRole HCL 0.5 MG TABLET PO (20:17)
[2023-09-07 20:27] LABS: Alanine Aminotransferase 146 U/L (6-35); Albumin Level 4.3 g/dL (3.5-5.1); Alkaline Phosphatase 113 U/L (38-126); Anion Gap 13 mmol/L (4-12); Bilirubin,Total 0.6 mg/dL (0.2-1.3); Blood Urea Nitrogen 56 mg/dL (7-17); Calcium 8.8 mg/dL (8.4-10.2); Carbon Dioxide 24 mmol/L (22-30); Chloride 92 mmol/L (98-107); Estimated CRCL calculation 20 ml/min; Estimated Glomerular Filt Rate 15; Glucose 240 mg/dL (65-110); Potassium 4.6 mmol/L (3.4-5.0); Sodium 129 mmol/L (137-145)
[2023-09-07 20:30] LABS: Aspartate Amino Transferase 1321 U/L (14-36)
[2023-09-07 20:33] LABS: Glucose Point of Care 259 mg/dl (65-105)
[2023-09-07] MEDS: ONDANSETRON INJ 4 MG/2 ML VIAL IV PUSH (22:27)
[2023-09-07] MEDS: SODIUM CHLORIDE 0.9% IV 1,000 ML 999 ML IV CONT (22:54)
[2023-09-07] MEDS: IPRATROPIUM 0.5 MG/ALBUTEROL SULFATE 2.5 MG AMPUL.NEB 3 ML INHALATION (23:17)
--- NOTE | 2023-09-07 23:17 | PC.NURSE ---
Dr Corrigan called due to change in condition. Blood pressures in the 80's, difficulty picking up an oxygen saturation, confusion, pale with feet mottling. ABG ordered and Dr Corrigan will be placing central line.
--- NOTE | 2023-09-07 23:30 | PC.NURSE ---
Staff at bedside to assess pt after drop in BP from 107/92 to 97/64. Pt becoming less coherent. Currently able to answer orientation questions appropriately, but pt continues to talk to her who is not in the room. Pt states she feels dizzy and is nauseous. Pt also becoming more bradycardic during assessment. Dr. Alcazar notified @ 2250. New order for 500 ml NS bolus and duoneb due to upper airway wheezing. Dr. Alcazar also wants Dr. Corrigan to assess pt. [address] Corrigan notified of pt's declining condition. BP continuing to decrease (see VS documentation). Left message for pt's spouse, Fly at 2311. Call placed to pt's daughter, Catarina, at 2313. Catarina is agreeable to central line placement. Dr. Corrigan notified.
[2023-09-07 23:37] LABS: Alveolar/Arterial O2 Gradient 75.7 mmHg; Base Excess ABG -9.2 mEq/l (+/-2.0); Carboxyhemoglobin 0.1 % THb (0-2.0); Fractional Inspired Oxygen 28 %; HCO3 ABG 15.7 mEq/l (22.0-26.0); Methemoglobin ABG 0.3 %THb (0-1.5); Oxygen Content ABG 14.2 %vol (16.0-22.0); Oxygen Saturation ABG 96.1 % (95.0-100.0); Oxyhemoglobin 95.1 % THb (90.0-100.0); PCO2 ABG 31.1 mmHg (35.0-45.0); PO2 ABG 87.2 mmHg (80.0-100.0); PO2 FiO2 Ratio Arterial Blood 3.11 %; Reduced Hemoglobin 4.5 %THb (0-5.0); Total Hemoglobin 10.5 g/dL (12.0-18.0); pH ABG 7.322 (7.350-7.450)
[2023-09-07 23:39] LABS: Glucose Point of Care 194 mg/dl (65-105)
[2023-09-07 23:40] LABS: Device NASAL CANNULA; Site Drawn RIGHT BRACHIAL
[2023-09-07] MEDS: DOPamine 400 MG/D5W 250 ML 400 MG/250 ML BAG 25.09 MG IV CONT (23:55)
--- NOTE | 2023-09-07 23:55 | PC.NURSE ---
Spoke with Dr Alcazar and updated to BP 76/64 and heart rate 41 with several recent drops to 38. Updated to Dr Corrigan's plans to place line and administration of glucagon. Order received for dopamine to run at 5 peripherally until line obtained and monitor patient status.
[2023-09-07] MEDS: SODIUM CHLORIDE 0.45% 1,000 ML 999 ML IV CONT (23:58)
[2023-09-08] VITALS (51 sets, daily range): BP systolic 76–179; BP diastolic 44–88; PULSE 47–72; RESP 12–22; TEMP 37.1–38.1; O2SAT 70–100
[2023-09-08] MEDS: LORazepam INJ (*CRX) 2 MG/ML VIAL 1 MG IV PUSH ×2 (00:21→00:30)
[2023-09-08] MEDS: MORPHINE SULFATE (*CRX) 2 MG/ML INJ 1 MG IV PUSH (00:21)
[2023-09-08] MEDS: SODIUM CHLORIDE 0.9% IV 1,000 ML 999 ML IV CONT (00:39)
[2023-09-08] MEDS: DOPamine 400 MG/D5W 250 ML 400 MG/250 ML BAG 39.38 MG IV CONT (01:10)
--- NOTE | 2023-09-08 01:20 | PC.NURSE ---
Dr. Corrigan requested repeat dose of Ativan 1 mg. Ativan 1 mg drawn up from same bottle, so no waste required. Dose verified with KODI Watkins.
[2023-09-08] MEDS: flumazeniL 0.5 MG/5 ML VIAL 1 MG IV PUSH (01:37)
--- NOTE | 2023-09-08 01:56 | PC.NURSE ---
0015 Dr Corrigan in room to place line. Doctor orders 1mg each morphine and Ativan due to patient head and arm movement. This nurse raised concerns due to respiratory status. Efficacy of medication administration discussed. Pt tolerates lying down with difficulty, at times looks to be guppy breathing, and oxygen saturation frequently in 80s. Patient placed on venturi mask and Dr Corrigan makes decision to administer morphine and Ativan.
--- NOTE | 2023-09-08 02:02 | PC.NURSE ---
At 0130 patient is minimally responsive, guppy breathing, and maintaining oxygen saturations 70-80% on bipap. Dr Corrigan called with request for reversal agents for medication given during line placement. 1mg flumazenil ordered and administered at 0137. Patient more responsive 10 min after administration; oxygen saturations running from 85 to 95%. Discussed possible need for intubation with family.
--- NOTE | 2023-09-08 02:12 | PC.NURSE ---
Dr. Alcazar called ICU for status update on pt. Dr. Corrigan at bedside to discuss pt's condition with family. Dr. Corrigan reports that family is agreeable to intubation if pt's condition continues to deteriorate.
--- NOTE | 2023-09-08 02:53 | P.PCNBED_ITS ---
Procedures Central Line Placement Right IJ: Central Line Date: 09/08/23 Central Line Time: 12:30 The patient/family/POA understand(s) and acknowledge(s) the need to proceed with central venous catheter insertion as an important element of the patient's clinical management.: Yes Consent: I have discussed with the patient and/or surrogate, the non-emergent placement o f a central venous catheter, including its clinical necessity/indication and associated potential risks and complications. The patient and/or surrogate understand(s) and acknowledge(s) the need to proceed with central venous catheter insertion as an important element of the patient's clinical management. Time Out Performed: Yes Patient Position: trendelenburg Patient placed on monitor/pulse ox: Yes Provider Prep: mask, sterile gown, sterile gloves, Max. sterile barrier precautions, cap and hand hygiene with conventional soap/water or alcohol based hand rub Central line prep: 2% Chlorhexidine scrub Local anesthesia used: lidocaine 1% Amount of anesthesia used (ml): 50 Sterile US Technique with sterile gel/sterile probe covers: Yes Central line lumen inserted: triple [place]: 16 Length (cm): 16 Post procedure x-ray: tip of catheter in good position and no pneumothorax seen Patient tolerated procedure: well and other (hypoxia) Complications: none
[2023-09-08 04:37] LABS: Basophils Percent Auto 0.2 % (0.2-1.2); Hematocrit 25.7 % (37.0-47.0); Immature Granulocyte Absolute 0.25 K/mm3 (0.00-0.031); Immature Granulocyte Percent A 1.1 % (0-0.5); Immature Platelet Fraction Pct 16.3 % (0.9-11.2); Lymphocytes Absolute Auto 0.42 K/mm3 (0.9-3.2); Lymphocytes Percent Auto 1.8 % (18.3-44.2); Mean Corpuscular HGB Conc 31.1 g/dl (32-36); Mean Corpuscular Hemoglobin 32.1 pg (26-34); Mean Corpuscular Volume 103.2 fl (80-100); Mean Platelet Volume 13.1 fl (7.4-10.4); Monocytes Absolute Auto 1.4 K/mm3 (0.1-0.6); Monocytes Percent Auto 6.2 % (2.6-8.5); Neutrophils Absolute Auto 20.8 K/mm3 (1.3-6.7); Neutrophils Percent Auto 90.7 % (45.5-73.1); Nucleated Red Blood Cells Perc 0.1 % (0.0-0.2); Platelet Count Result 154 k/mm3 (150-375); Red Blood Count 2.49 M/mm3 (4.2-5.4); Red Cell Distribution Width 17.1 % (11.5-14.5); White Blood Count 22.9 K/mm3 (4.5-10.0)
[2023-09-08] MEDS: DOPamine 400 MG/D5W 250 ML 400 MG/250 ML BAG 65.63 MG IV CONT (04:37)
[2023-09-08 04:46] LABS: INR 2.7; Partial Thromboplastin Time 32.5 Seconds (22.3-36.8); Prothrombin Time 28.9 Seconds (11.1-14.7)
[2023-09-08 04:47] LABS: Lactic Acid Reflex 3.9 mmol/L (0.7-2.0)
[2023-09-08 04:52] LABS: Alanine Aminotransferase 221 U/L (6-35); Albumin Level 4.1 g/dL (3.5-5.1); Alkaline Phosphatase 151 U/L (38-126); Anion Gap 18 mmol/L (4-12); Bilirubin,Total 0.9 mg/dL (0.2-1.3); Blood Urea Nitrogen 59 mg/dL (7-17); Calcium 8.2 mg/dL (8.4-10.2); Carbon Dioxide 17 mmol/L (22-30); Chloride 93 mmol/L (98-107); Estimated CRCL calculation 19 ml/min; Estimated Glomerular Filt Rate 14; Glucose 278 mg/dL (65-110); Magnesium 1.9 mg/dL (1.6-2.3); Potassium 6.4 mmol/L (3.4-5.0); Sodium 128 mmol/L (137-145)
[2023-09-08 05:05] LABS: Anisocytosis 1+; Hypochromasia 1+; Platelet Estimate Adequate (Adequate); Schistocytes None Seen
[2023-09-08 05:20] LABS: Aspartate Amino Transferase 1779 U/L (14-36)
[2023-09-08] MEDS: ALBUMIN HUMAN 25% 25 GM/100 ML 100 ML IVPB (05:23)
[2023-09-08] MEDS: INSULIN HUMAN REGULAR (*BKC) 100 UNITS/ML IV PUSH (05:23)
[2023-09-08] MEDS: DEXTROSE 50% 25 GM/50 ML SYRINGE IV PUSH ×2 (05:23→07:54)
[2023-09-08] MEDS: CALCIUM GLUC 1,000 MG/NS 50 ML 1,000 MG/50 ML BAG 100 MG IVPB (05:25)
[2023-09-08] MEDS: CENTRAL LINE FLUSH 10 ML IV PUSH ×3 (05:25→20:14)
[2023-09-08 07:06] LABS: Anion Gap 17 mmol/L (4-12); Blood Urea Nitrogen 62 mg/dL (7-17); Calcium 8.3 mg/dL (8.4-10.2); Carbon Dioxide 19 mmol/L (22-30); Chloride 93 mmol/L (98-107); Estimated CRCL calculation 20 ml/min; Estimated Glomerular Filt Rate 14; Glucose 339 mg/dL (65-110); Potassium 5.5 mmol/L (3.4-5.0); Sodium 129 mmol/L (137-145)
[2023-09-08] MEDS: IPRATROPIUM 0.5 MG/ALBUTEROL SULFATE 2.5 MG AMPUL.NEB 3 ML INHALATION ×3 (07:25→19:53)
[2023-09-08] MEDS: FLUTICASONE/SALMETEROL 115-21 MCG INHALER 1 PUFF 2 PUFF INHALATION (07:25)
[2023-09-08 07:33] LABS: Reflex Lactic Acid Yes or No Add Lactic
[2023-09-08] MEDS: ALBUTEROL SULFATE NEB 2.5 MG/3 ML INH 15 MG INHALATION (07:40)
[2023-09-08] MEDS: NALOXONE HCL 0.4 MG/ML VIAL 0.2 MG IV PUSH (07:49)
[2023-09-08] MEDS: SODIUM BICARBONATE 8.4% 50 MEQ/50 ML SYRINGE 100 MEQ IV PUSH (07:54)
--- NOTE | 2023-09-08 07:58 | WPDINTPN ---
Progress Note: A&P Assessment and Plan (1) Severe sepsis: Code(s): A41.9 - Sepsis, unspecified organism; R65.20 - Severe sepsis without septic shock Status: Acute Assessment and Plan: Patient with severe sepsis, hypotension elevated lactic acid, likely related to E coli UTI and Gram-negative bacteremia - patient has been adequately fluid-resuscitated -overnight lactic acid was elevated but has normalized -09/04: Blood cultures growing E coli -09/04: Urine cultures growing E coli, resistant to ceftriaxone -09/06: ceftriaxone discontinue, patient started on meropenem -will repeat blood cultures -09/07: Overnight patient was hypotensive, bradycardic, likely related to metoprolol, started on dopamine. Central line was inserted. -continue dopamine, wean to maintain heart rate > 60 (2) Acute UTI: Code(s): N39.0 - Urinary tract infection, site not specified Status: Acute Assessment and Plan: Treatment as above, urine cultures growing E coli, sensitivities pending (3) Hyperkalemia: Code(s): E87.5 - Hyperkalemia Status: Acute Assessment and Plan: Patient with hyperkalemia likely related to acute on chronic kidney disease -09/07: Potassium of 6.4 early this morning, was treated and repeat potassium was 5.5, -will give rectal Kayexalate -repeat insulin D50, 2 amps of bicarb as patient is acidotic, albuterol nebulizer, calcium chloride, rectal Kayexalate -if she remains persistently hyperkalemic, may require dialysis (4) Acute kidney injury superimposed on CKD: Code(s): N17.9 - Acute kidney failure, unspecified; N18.9 - Chronic kidney disease, unspecified Status: Acute Assessment and Plan: Acute on chronic kidney disease likely related to hypotensive and, infection, severe sepsis -chronic kidney disease likely related to diabetes, chronic hypertension -baseline creatinine is 1.40-1.80 -patient has been adequately fluid-resuscitated -also has a history of it is heart failure with preserved ejection fraction -nephrology has been consulted -CT scan of the abdomen and pelvis did not show any hydronephrosis -09/06: Renal ultrasound: Unremarkable renal ultrasound no stones, masses or hydronephrosis -continue to monitor urine output, electrolytes and renal function -urine lytes for prerenal, patient did receive IV fluids overnight, urine eosinophils were negative, CK level mildly elevated at 254 -urine output has been low Creatinine this morning is up to 3.30 -will maintain systolic blood pressures and MAP (5) EKG abnormality: Code(s): R94.31 - Abnormal electrocardiogram [ECG] [EKG] Status: Acute Assessment and Plan: EKG showed atrial fibrillation with slow ventricular response, incomplete right bundle branch block -could be related to hyperkalemia -elevated troponin -appreciate cardiology evaluation and recommendations -was hypotensive and bradycardic after receiving metoprolol last night, currently on dopamine. Will hold metoprolol for now -echocardiogram has been ordered (6) Chronic anemia: Code(s): D64.9 - Anemia, unspecified Status: Acute Assessment and Plan: Chronic anemia could be related to anemia of chronic disease -hemoglobin has been stable (7) Chronic obstructive pulmonary disease: Code(s): J44.9 - Chronic obstructive pulmonary disease, unspecified Status: Acute Assessment and Plan: History of COPD, uses 3 L nasal cannula at home -currently not in any exacerbation -chest x-ray this morning mild pulmonary edema versus atelectasis (8) Diabetes mellitus with chronic kidney disease: Code(s): E11.22 - Type 2 diabetes mellitus with diabetic chronic kidney disease Status: Chronic Assessment and Plan: History of diabetes with neuropathy and chronic kidney disease -continue Accu-Cheks, sliding scale insulin -increase Lantus -patient in. (9) Generalized weakness: Code(s): R53.1 -
[2023-09-08] MEDS: TOLNAFTATE 1% POWDER 45 GM BTL 1 APPLIC TOPICAL ×2 (08:01→20:15)
[2023-09-08] MEDS: PANTOPRAZOLE SODIUM IV 40 MG VIAL IV PUSH (08:01)
[2023-09-08] MEDS: INSULIN GLARGINE (*BKC) 100 UNITS/ML 15 UNITS SUB-Q (08:01)
[2023-09-08] MEDS: INSULIN HUMAN REGULAR (*BKC) 100 UNITS/ML 10 UNITS IV PUSH (08:04)
[2023-09-08 08:06] LABS: Glucose Point of Care 306 mg/dl (65-105)
[2023-09-08] MEDS: INSULIN ASPART (*BKC) 100 UNITS/ML SUB-Q ×4 (08:07→20:11)
[2023-09-08 08:30] LABS: Lactic Acid Reflex 2.7 mmol/L (0.7-2.0)
[2023-09-08] MEDS: DOPamine 400 MG/D5W 250 ML 400 MG/250 ML BAG 52.5 MG IV CONT (08:32)
[2023-09-08] MEDS: MEROPENEM 1 GM/NS 100 ML 1 GM/100 ML BAG IVPB ×2 (08:32→20:12)
--- NOTE | 2023-09-08 08:36 | PCOTNOTE ---
Attempted to see pt. for occupational therapy evaluaiton. Per nursing and Extender, Cancel pt. orders until pt. medically stable, with agreement to reorder when appropriate.
[2023-09-08] MEDS: SODIUM POLYSTYRENE SULFONONATE 15 GM/60 ML BTL RECTAL (08:41)
[2023-09-08] MEDS: CALCIUM CHLOR 1,000MG/100ML NS 1,000 MG/100 ML BAG 100 MG IVPB (09:12)
--- NOTE | 2023-09-08 10:28 | PM.PNNEP ---
Progress Note: A&P Assessment and Plan (1) Acute kidney injury superimposed on CKD: Code(s): N17.9 - Acute kidney failure, unspecified; N18.9 - Chronic kidney disease, unspecified Status: Acute Assessment and Plan: Patient has chronic kidney disease. This is most likely due to diabetes and hypertension. She follows with Dr. Montoya as an outpatient. Her baseline creatinine runs around 1.5 per little bit less. The patient has acute kidney injury. Her creatinine is up to 3.2. It was already a bit high on admission and then courtney to its current level. Her urine electrolytes are pre renal. Renal ultrasound is negative CK is a little elevated but not enough to cause kidney problems. She has multiple issues contributing to her kidney insufficiency. Yesterday the patient had hypotensive spell. She was on dopamine and blood pressure is much improved. The dopamine dose has been reduced. After that spell the urine output decreased. The patient does have bacteremia and sepsis. She had low blood pressure on admission as well. She already has pulmonary hypertension and tricuspid regurgitation and was on metolazone and bumetanide to control her swelling. Does she has chronic pre renal azotemia. Currently the patient's creatinine is stable but her urine output is low. Going forward if the urine output does not pick up attendant the creatinine may worsen and she may need to go on dialysis if the numbers get bad enough. I discussed this at length with Mr. Rondon. Currently the patient is getting dopamine to support her blood pressure, antibiotics to treat the infection, BiPAP to support her breathing, and other supportive care to help her out. (2) Atrial fibrillation: Code(s): I48.91 - Unspecified atrial fibrillation Status: Chronic Assessment and Plan: Heart rate dropped to the 40s and 50s but now is better on the dopamine in the 60s. (3) Diabetes mellitus with chronic kidney disease: Code(s): E11.22 - Type 2 diabetes mellitus with diabetic chronic kidney disease Status: Chronic Assessment and Plan: On Accu-Cheks and insulin sliding scale per hospitalist/character impersonator (4) Hyponatremia: Code(s): E87.1 - Hypo-osmolality and hyponatremia Status: Resolved Assessment and Plan: The patient's sodium is chronically low, intermittently back to 2005 and fairly consistently in the last year TSH cortisol have been okay. 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 CT brain is unremarkable Chest CT back in June showed says multiple pulmonary nodules. She also has pulmonary hypertension. He has might contribute to hyponatremia She has been on hydrocodone, metolazone, and pantoprazole as an outpatient which could contribute. Quetiapine rarely causes hyponatremia so I doubt if this is playing a role Sodium level seems stable right now. Evaluation still pending With the low urine output it is basically up to the balance between free water intake and insensible loss Once patient starts to eat we can start a fluid restriction if still needed by then. (5) Hyperkalemia: Code(s): E87.5 - Hyperkalemia Status: Acute Assessment and Plan: This was treated with medication will check again tomorrow (6) Pulmonary hypertension: Code(s): I27.20 - Pulmonary hypertension, unspecified Status: Acute Assessment and Plan: On BiPAP (7) Hypertension: Qualifiers: Hypertension type: primary hypertension Qualified Code(s): I10 - Essential (primary) hypertension Code(s): I10 - Essential (primary) hypertension Status: Chronic Assessment and Plan: Blood pressure has improved quite a bit in the last few hours She is on hydralazine as needed for high blood pressure Gradually weaning the dopamine as permitted by heart rate. She is not on any antihypertensives per se. (8) Chronic anemia: Code(s): D64.9 - Anemia, unspecified
--- NOTE | 2023-09-08 10:43 | PC.NURSE ---
Update on patient condition provided to daughter Martita per request
[2023-09-08 11:17] LABS: Anion Gap 17 mmol/L (4-12); Blood Urea Nitrogen 63 mg/dL (7-17); Calcium 8.5 mg/dL (8.4-10.2); Carbon Dioxide 22 mmol/L (22-30); Chloride 93 mmol/L (98-107); Estimated CRCL calculation 20 ml/min; Estimated Glomerular Filt Rate 14; Glucose 315 mg/dL (65-110); Potassium 4.7 mmol/L (3.4-5.0); Sodium 132 mmol/L (137-145)
[2023-09-08 12:23] LABS: Glucose Point of Care 288 mg/dl (65-105)
--- NOTE | 2023-09-08 13:49 | PM.IMPN ---
Progress Note: A&P Assessment and Plan (1) Sepsis: Code(s): A41.9 - Sepsis, unspecified organism Status: Acute (2) Acute UTI: Code(s): N39.0 - Urinary tract infection, site not specified Status: Acute (3) Acute lactic acidosis: Code(s): E87.21 - Acute metabolic acidosis Status: Acute (4) Acute kidney injury superimposed on CKD: Code(s): N17.9 - Acute kidney failure, unspecified; N18.9 - Chronic kidney disease, unspecified Status: Acute (5) Hypertension: Qualifiers: Hypertension type: primary hypertension Qualified Code(s): I10 - Essential (primary) hypertension Code(s): I10 - Essential (primary) hypertension Status: Chronic (6) Heart failure with preserved ejection fraction: Code(s): I50.30 - Unspecified diastolic (congestive) heart failure Status: Chronic (7) Chronic obstructive pulmonary disease: Code(s): J44.9 - Chronic obstructive pulmonary disease, unspecified Status: Acute Plan 72-year-old female presented to the ED on 09/05/2023 his weakness and altered mental status. Patient noted to sirs and was diagnosed with severe sepsis secondary to UTI. Patient was adequately fluid resuscitated started on ceftriaxone and was admitted to the medical floor. On 09/06 rapid response with diaphoretic obtunded and rapid shallow breathing. Hypotensive and hyperkalemic patient was treated per protocol. Elevated troponin noted. Patient was given calcium chloride sodium bicarb hydrocortisone and was transferred to ICU for further treatment. Severe sepsis hypotension elevated lactic acid also has Gram-negative bacteremia Now hypotensive and placed on dopamine drip Gram-negative bacteremia E coli. Urine culture sensitivity resistant to ceftriaxone switched to meropenem UTI on meropenem Hyperkalemia elevated again and further treatment was performed Paroxysmal Atrial fibrillation on amiodarone and apixaban metoprolol Elevated troponin cardiology consulted Transaminitis acute rise likely due to AST 1434 ALT 157 ALP 134 bilirubin is normal. Abdominal ultrasound with gallbladder wall thickening with pericholecystic fluid no cholelithiasis. Findings suspicious for acalculous cholecystitis NESHA CKD stage 3 creatinine up to 3.1 baseline creatinine 1.4-1.5. Renal ultrasound unremarkable to use to rise. Nephrology following Chronic anemia COPD on 2-3 L oxygen Anxiety depression Morbid obesity Diabetic neuropathy GERD Restless leg syndrome Obstructive sleep apnea not on CPAP Parkinson's disease Hypothyroidism Hypertension Hyperlipidemia History of DVT on Eliquis Heart failure with preserved ejection fraction next history of GI bleed secondary to peptic ulcer Type 2 diabetes DVT prophylaxis on apixaban Subjective Date/time seen: 09/08/23 13:49 Interval history: overnight events noted. Hypotensive overnight and was placed on dopamine. Was also bradycardic . Review of Systems Review of Systems: All systems reviewed & are unremarkable except as noted in HPI and below Exam Narrative: General: Somnolent but arouses easily, in no acute distress at this time HEENT:? Pupils are equal and reactive, sclera is clear Neck:? Supple Respiratory:? Decreased air movement, decreased at bases, adequate air entry Cardiac:? S1-S2 is normal, regular rate and rhythm Abdomen:? Soft, non tender, non distended, large pannus, morbidly obese Extremities:? Bilateral lower extremity pitting edema, palpable pedal pulses, mottling of the feet noted Neuro:? Somnolent but easily arousable, oriented x4, answers to questions appropriately and follows simple commands Skin:? Bruising noted, otherwise no other skin lesions Psych:? Patient is anxious, depressed, fearful of dying Objective Data Vital Signs Vital Signs: Vital Signs - 24 hr 09/07/23 14:00 09/07/23 14:00 09/07/23 16:00 Temperature 98 F Pulse Rate 63 67 62 Respiratory Rate 14 14
[2023-09-08] MEDS: HEPARIN SODIUM 5,000 UNITS/ML VIAL 5000 UNITS SUB-Q ×2 (14:34→21:00)
--- NOTE | 2023-09-08 15:03 | PM.PNCARD ---
Progress Note: A&P Assessment and Plan (1) Troponin level elevated: Code(s): R79.89 - Other specified abnormal findings of blood chemistry Status: Acute Plan Mildly elevated troponin likely demand ischemia in the setting of CHF, Chetan I and sepsis, cannot rule out underlying coronary artery disease Paroxysmal AFib CHETAN on CKD likely related to prerenal and hypotension COPD on home oxygen Diabetes mellitus type 2 Plan Transthoracic echocardiogram If there is significant wall-motion abnormality consider further evaluation for coronary artery disease when kidney function stable If oral anticoagulation will be held consider DVT prophylaxis D/C metoprolol Wean off dopamine when blood pressure is stable Diuretic therapy management per Nephrology team Consider resuming amiodarone Subjective Date/time seen: 09/08/23 15:03 Interval history: Acute episode of hypertension and bradycardia overnight This morning she is on BiPAP and blood pressure is more stable on dopamine Review of Systems Review of Systems: ROS unobtainable: Yes unobtainable due to medical condition Exam Narrative: General: Somnolent on BiPAP Respiratory:? decreased air entry at bases Cardiac:? S1-S2 is normal, regular rate and rhythm Extremities:? Bilateral lower extremity pitting edema, Objective Data Vital Signs Vital Signs: Vital Signs - 24 hr 09/07/23 16:00 09/07/23 16:00 09/07/23 18:00 Temperature 36.6 C Pulse Rate 62 62 60 Respiratory Rate 14 Blood Pressure 138/65 Pulse Oximetry 98 Oxygen Delivery Oxygen Flow Rate Fraction of Inspired Oxygen 09/07/23 16:00 09/07/23 18:00 09/07/23 20:00 Temperature 36.7 C Pulse Rate 61 63 Respiratory Rate 13 14 Blood Pressure 131/61 145/75 H Pulse Oximetry 96 96 98 Oxygen Delivery Nasal Cannula Oxygen Flow Rate 2 Fraction of Inspired Oxygen 09/07/23 20:16 09/07/23 20:00 09/07/23 20:00 Temperature Pulse Rate 64 65 Respiratory Rate Blood Pressure Pulse Oximetry 98 Oxygen Delivery Nasal Cannula Oxygen Flow Rate 2 Fraction of Inspired Oxygen 09/07/23 22:00 09/07/23 22:00 09/07/23 22:30 Temperature Pulse Rate 59 L 59 L 54 L Respiratory Rate 16 15 Blood Pressure 107/92 H 97/64 L Pulse Oximetry 99 Oxygen Delivery Oxygen Flow Rate Fraction of Inspired Oxygen 09/07/23 23:05 09/07/23 23:00 09/07/23 23:15 Temperature Pulse Rate 42 L 42 L 42 L Respiratory Rate 16 13 16 Blood Pressure 94/76 L 80/55 L 86/49 L Pulse Oximetry 100 100 92 Oxygen Delivery Oxygen Flow Rate Fraction of Inspired Oxygen 09/07/23 23:32 09/07/23 23:38 09/07/23 23:46 Temperature 37.6 C H Pulse Rate 42 L 42 L Respiratory Rate 14 16 Blood Pressure 87/64 L Pulse Oximetry 96 96 Oxygen Delivery Nasal Cannula Oxygen Flow Rate 2 Fraction of Inspired Oxygen 28 09/07/23 23:49 09/07/23 23:45 09/08/23 00:00 Temperature Pulse Rate 43 L 43 L 47 L Respiratory Rate 22 H 20 19 Blood Pressure 76/64 L 86/48 L Pulse Oximetry 100 93 Oxygen Delivery Oxygen Flow Rate Fraction of Inspired Oxygen 09/08/23 00:20 09/08/23 00:28 09/08/23 00:00 Temperature Pulse Rate 53 L 57 L Respiratory Rate 17 13 Blood Pressure 90/45 L 91/45 L Pulse Oximetry 89 L 71 L 75 L Oxygen Delivery Venturi Mask Oxygen Flow Rate 15 Fraction of Inspired Oxygen 09/08/23 00:39 09/08/23 00:41 09/07/23 23:58 Temperature Pulse Rate 49 L 52 L 46 L Respiratory Rate 13 13 Blood Pressure 76/46 L 84/49 L 76/64 L Pulse Oximetry 70 L 70 L Oxygen Delivery Oxygen Flow Rate Fraction of Inspired Oxygen 09/07/23 23:55 09/08/23 00:42 09/08/23 01:10 Temperature Pulse Rate 43 L 51 L 49 L Respiratory Rate Blood Pressure 76/64 L 84/49 L 86/52 L Pulse Oximetry Oxygen Delivery Oxygen Flow Rate Fraction of Inspired Oxygen 09/08/23 01:10 09/08/23 01:22 09/08/23 01:27
[2023-09-08 16:31] LABS: Glucose Point of Care 275 mg/dl (65-105)
[2023-09-08 20:07] LABS: Lactic Acid Reflex 1.2 mmol/L (0.7-2.0)
[2023-09-08 20:09] LABS: Alanine Aminotransferase 396 U/L (6-35); Alkaline Phosphatase 136 U/L (38-126); Anion Gap 13 mmol/L (4-12); Bilirubin,Total 0.6 mg/dL (0.2-1.3); Blood Urea Nitrogen 67 mg/dL (7-17); Calcium 8.5 mg/dL (8.4-10.2); Carbon Dioxide 25 mmol/L (22-30); Chloride 94 mmol/L (98-107); Estimated CRCL calculation 19 ml/min; Estimated Glomerular Filt Rate 13; Glucose 212 mg/dL (65-110); Potassium 4.8 mmol/L (3.4-5.0); Sodium 132 mmol/L (137-145)
[2023-09-08 20:41] LABS: Aspartate Amino Transferase 3420 U/L (14-36)
[2023-09-08 23:09] LABS: Glucose Point of Care 180 mg/dl (65-105)
[2023-09-09] VITALS (28 sets, daily range): BP systolic 89–171; BP diastolic 50–72; PULSE 64–85; RESP 14–26; TEMP 36.8–37.7; O2SAT 92–99
--- NOTE | 2023-09-09 | ECHO_ITS ---
Patient Info Name: Jenni Rondon Age: 72 years : 1950 Gender: Female Ht: 63 in Wt: 314 lbs BSA: 2.61 m2 HR: 83 bpm BP: 149 / 59 mmHg Heart Rhythm: Sinus Rhythm Technical Quality: Fair Exam Date: 09/09/2023 10:08 AM Exam Location: Echo Lab Patient Status: Inpatient Admit Date: 09/06/2023 Staff Ordering Physician: Chuck Alcazar MD Chef Concierge: Lesvia Tariq RDCS Attending Provider: Isabel Tony PA-C Referring Physician: Ottoniel GO; Exam Type: CA echo dop color flow w con Study Info Indications - elevated troponin, ekg changes Complete two-dimensional, color flow and Doppler transthoracic echocardiogram is performed with contrast to opacify the left ventricle and to improve the deliniation of the left ventricle endocardial borders. Contrast/Agitated Saline Contrast/Ag. Saline: Definity Amount: 2.00 ml Administered By: Lesvia Tariq RDCS Existing IV Access: Yes IV Access Condition: patent with no signs of infiltration Summary 1. Technically challenging study because of obesity, definity contrast utilized. 2. Normal left ventricular size with mild concentric hypertrophy and normal systolic function. 3. Mildly sclerotic aortic valve which is not stenotic. 4. Moderate biatrial dilation. 5. Small amount of mitral and aortic valve regurgitation. 6. Compared with echocardiogram done in this laboratory 2 months ago findings are essentially unchanged. Left Ventricle Left ventricular chamber dimension is normal. Left ventricular systolic function is normal, estimated at 60-65%. There is mild concentric increased left ventricular wall thickness. The left ventricular diastolic function is normal. Right Ventricle Right ventricular chamber dimension is normal. Left Atria Left atrial chamber dimension is moderately enlarged. Right Atria Right atrial chamber dimension is moderately enlarged. Aortic Valve The aortic valve is trileaflet. There is mild aortic valve sclerosis. Pulmonic Valve The pulmonic valve is not well visualized. Mitral Valve The mitral valve has normal leaflets. There is trace mitral valve regurgitation. Tricuspid Valve The tricuspid valve leaflets are not well visualized. There is mild tricuspid valve regurgitation. Pericardium/Pleural The pericardium appears normal. Aorta The aortic root size at the sinus of Valsalva is normal. Left Ventricular Outflow Tract Name Value Normal LVOT 2D LVOT Diameter 2.06 cm LVOT Doppler LVOT Peak Gradient 5 mmHg LVOT Mean Gradient 3 mmHg LVOT VTI 23.77 cm LVOT VTI/AV VTI Ratio 0.72 LVOT Stroke Volume 78.94 ml LVOT CO 5.68 l/min LVOT CI 2.18 L/min/m2 Pulmonic Valve Name Value Normal RVOT Doppler RV
[2023-09-09] MEDS: IPRATROPIUM 0.5 MG/ALBUTEROL SULFATE 2.5 MG AMPUL.NEB 3 ML INHALATION ×4 (01:55→20:18)
[2023-09-09 04:37] LABS: Basophils Percent Auto 0.1 % (0.2-1.2); Eosinophils Absolute Auto 0.1 K/mm3 (0-0.3); Hematocrit 21.1 % (37.0-47.0); Immature Granulocyte Absolute 0.14 K/mm3 (0.00-0.031); Immature Platelet Fraction Pct 14.8 % (0.9-11.2); Lymphocytes Percent Auto 4.1 % (18.3-44.2); Mean Corpuscular HGB Conc 31.3 g/dl (32-36); Mean Corpuscular Hemoglobin 31.3 pg (26-34); Mean Platelet Volume 12.8 fl (7.4-10.4); Monocytes Absolute Auto 0.9 K/mm3 (0.1-0.6); Monocytes Percent Auto 6.3 % (2.6-8.5); Neutrophils Absolute Auto 12.9 K/mm3 (1.3-6.7); Neutrophils Percent Auto 87.5 % (45.5-73.1); Nucleated Red Blood Cells Perc 0.2 % (0.0-0.2); Platelet Count Result 137 k/mm3 (150-375); Red Blood Count 2.11 M/mm3 (4.2-5.4); Red Cell Distribution Width 16.5 % (11.5-14.5); White Blood Count 14.7 K/mm3 (4.5-10.0)
[2023-09-09 04:46] LABS: Alanine Aminotransferase 375 U/L (6-35); Albumin Level 3.8 g/dL (3.5-5.1); Alkaline Phosphatase 142 U/L (38-126); Anion Gap 12 mmol/L (4-12); Bilirubin,Total 0.6 mg/dL (0.2-1.3); Blood Urea Nitrogen 70 mg/dL (7-17); Calcium 8.4 mg/dL (8.4-10.2); Carbon Dioxide 26 mmol/L (22-30); Chloride 95 mmol/L (98-107); Creatine Kinase 95 U/L (30-135); Estimated CRCL calculation 19 ml/min; Estimated Glomerular Filt Rate 13; Glucose 145 mg/dL (65-110); INR 1.8; Magnesium 1.8 mg/dL (1.6-2.3); Partial Thromboplastin Time 28.6 Seconds (22.3-36.8); Phosphorus 5.6 mg/dL (2.5-4.5); Potassium 4.6 mmol/L (3.4-5.0); Prothrombin Time 21.5 Seconds (11.1-14.7); Sodium 133 mmol/L (137-145)
[2023-09-09 04:47] LABS: Ammonia < 9 umol/L (9-30)
[2023-09-09 04:53] LABS: Alveolar/Arterial O2 Gradient 124.7 mmHg; Base Excess ABG -3.9 mEq/l (+/-2.0); Carboxyhemoglobin 0.3 % THb (0-2.0); Fractional Inspired Oxygen 38 %; HCO3 ABG 21.7 mEq/l (22.0-26.0); Methemoglobin ABG 0.2 %THb (0-1.5); Oxyhemoglobin 95.9 % THb (90.0-100.0); PCO2 ABG 41.9 mmHg (35.0-45.0); PO2 ABG 97.8 mmHg (80.0-100.0); PO2 FiO2 Ratio Arterial Blood 2.57 %; Reduced Hemoglobin 3.6 %THb (0-5.0); Total Hemoglobin 9.5 g/dL (12.0-18.0); pH ABG 7.333 (7.350-7.450)
[2023-09-09 04:54] LABS: Device HIGH FLOW NASAL CANN; Modified Allen's Test Pass; Site Drawn RIGHT RADIAL
[2023-09-09 05:08] LABS: Aspartate Amino Transferase 2335 U/L (14-36)
[2023-09-09] MEDS: HEPARIN SODIUM 5,000 UNITS/ML VIAL 5000 UNITS SUB-Q (05:09)
[2023-09-09] MEDS: CENTRAL LINE FLUSH 10 ML IV PUSH ×3 (05:09→21:12)
[2023-09-09 05:18] LABS: Hemoglobin 6.6 g/dL (12.0-15.0)
[2023-09-09 05:19] LABS: Platelet Estimate Slightly Decreased (Adequate)
[2023-09-09 05:20] LABS: Anisocytosis 2+; Hypochromasia 2+; Microcytosis 2+ (NORMAL)
[2023-09-09 05:21] LABS: Schistocytes None Seen
--- NOTE | 2023-09-09 06:21 | PC.NURSE ---
Unable to document on Dopamine drip since bag ran out. Drip remains off since 09/07 [id number]
[2023-09-09 07:59] LABS: Glucose Point of Care 148 mg/dl (65-105)
[2023-09-09] MEDS: PANTOPRAZOLE SODIUM IV 40 MG VIAL IV PUSH (08:47)
[2023-09-09] MEDS: MEROPENEM 1 GM/NS 100 ML 1 GM/100 ML BAG IVPB (08:57)
[2023-09-09] MEDS: SODIUM CHLORIDE 0.9% IV 250 ML 30 ML IV CONT (08:57)
[2023-09-09] MEDS: TOLNAFTATE 1% POWDER 45 GM BTL 1 APPLIC TOPICAL ×2 (08:59→21:12)
--- NOTE | 2023-09-09 09:52 | PM.PNCARD ---
Progress Note: A&P Assessment and Plan (1) Troponin level elevated: Code(s): R79.89 - Other specified abnormal findings of blood chemistry Status: Acute Plan 72-year-old patient with history of fall and acute renal insufficiency. Elevated troponin with no evidence of cardiac etiology. Cardiology will sign off at this time as no plans to provide further workup of this. Joshua Mederos MD [facility] Subjective Date/time seen: Date of service: 09/09/23 09:52 Interval history: Follow-up in this 72-year-old woman with: Morbid obesity, fall, elevated troponin level Exam Narrative: General: Somnolent on BiPAP Respiratory:? decreased air entry at bases Cardiac:? S1-S2 is normal, regular rate and rhythm Extremities:? Bilateral lower extremity pitting edema, Const: General: comfortable and no acute distress Other: Able to lie flat HENMT: Face/Nose/Sinus: Normal nares present and no epistaxis Mouth: Yes moist mucous membranes Eyes: Sclera: sclerae normal Pupils: Equal, round and reactive pupils present Neck: Neck: supple and no JVD Carotids: no bruits Resp: Auscultation: clear to auscultation bilaterally and lung sounds not diminished Other: No chest wall tenderness Cardio: Rate: regular rate Rhythm: regular rhythm Heart sounds: no gallops, no murmurs and no rubs GI: Auscultation: normal bowel sounds Skin: General skin exam: normal color, rashes and/or lesions noted and no erythema Other: Warm Neuro: Cranial nerves: Yes Equal, round and reactive pupils present Speech: normal speech Other: No obvious focal deficit or facial asymmetry Extrem: General: no edema Other: Normal capillary refills Intact distal pulses. Objective Data Vital Signs Vital Signs: Vital Signs - 24 hr 09/08/23 10:09/08/23 10:00 09/08/23 10:15 Temperature Pulse Rate 63 64 61 Respiratory Rate 12 16 Blood Pressure 164/67 H Pulse Oximetry 100 100 Oxygen Delivery BiPAP Oxygen Flow Rate Fraction of Inspired Oxygen 09/08/23 10:00 09/08/23 10:15 09/08/23 12:00 Temperature Pulse Rate 62 61 58 L Respiratory Rate Blood Pressure 164/67 H 148/61 H Pulse Oximetry Oxygen Delivery Oxygen Flow Rate Fraction of Inspired Oxygen 09/08/23 12:00 09/08/23 12:15 09/08/23 12:00 Temperature Pulse Rate 56 L 60 59 L Respiratory Rate 14 Blood Pressure 141/64 H 137/72 Pulse Oximetry 100 Oxygen Delivery BiPAP Oxygen Flow Rate Fraction of Inspired Oxygen 60 09/08/23 12:00 09/08/23 13:30 09/08/23 13:30 Temperature 37.2 C Pulse Rate 60 59 L 59 L Respiratory Rate 14 14 14 Blood Pressure 141/64 H Pulse Oximetry 100 99 Oxygen Delivery BiPAP Oxygen Flow Rate Fraction of Inspired Oxygen 09/08/23 13:40 09/08/23 14:00 09/08/23 14:00 Temperature Pulse Rate 61 62 61 Respiratory Rate 14 20 Blood Pressure 151/66 H Pulse Oximetry 96 Oxygen Delivery Oxygen Flow Rate Fraction of Inspired Oxygen 09/08/23 14:00 09/08/23 14:30 09/08/23 14:45 Temperature Pulse Rate 61 61 60 Respiratory Rate Blood Pressure 151/66 H 168/78 H 128/61 Pulse Oximetry Oxygen Delivery Oxygen Flow Rate Fraction of Inspired Oxygen 09/08/23 15:30 09/08/23 16:00 09/08/23 16:00 Temperature Pulse Rate 60 60 59 L Respiratory Rate 15 15 Blood Pressure Pulse Oximetry 99 100 Oxygen Delivery BiPAP BiPAP Oxygen Flow Rate Fraction of Inspired Oxygen 40 09/08/23 16:00 09/08/23 16:00 09/08/23 18:00 Temperature 37.1 C Pulse Rate 59 L 60 58 L Respiratory Rate 15 Blood Pressure 136/55 L 136/55 L Pulse Oximetry 100 Oxygen Delivery Oxygen Flow Rate Fraction of Inspired Oxygen 09/08/23 18:00 09/08/23 18:00 09/08/23 20:26 Temperature Pulse Rate 58 L 59 L 61 Respiratory Rate 15 Blood Pressure 127/59 L 127/59 L 132/57 L Pulse Oximetry 100 Oxygen Delivery
--- NOTE | 2023-09-09 09:57 | WPDINTPN ---
Progress Note: A&P Assessment and Plan (1) Severe sepsis: Code(s): A41.9 - Sepsis, unspecified organism; R65.20 - Severe sepsis without septic shock Status: Acute Assessment and Plan: Patient with severe sepsis, hypotension elevated lactic acid, likely related to E coli UTI and Gram-negative bacteremia - patient has been adequately fluid-resuscitated -overnight lactic acid was elevated but has normalized -09/04: Blood cultures growing E coli -09/04: Urine cultures growing E coli, resistant to ceftriaxone -09/06: ceftriaxone discontinue, patient started on meropenem -09/07: Repeat blood cultures: Preliminary report is negative x2 -leukocytosis improving, patient has been afebrile (2) Acute UTI: Code(s): N39.0 - Urinary tract infection, site not specified Status: Acute Assessment and Plan: Treatment as above, urine cultures growing E coli, sensitivities pending (3) Hyperkalemia: Code(s): E87.5 - Hyperkalemia Status: Acute Assessment and Plan: Patient with hyperkalemia likely related to acute on chronic kidney disease -09/07: Potassium of 6.4 early this morning, was treated and repeat potassium was 5.5, -will give rectal Kayexalate -repeat insulin D50, 2 amps of bicarb as patient is acidotic, albuterol nebulizer, calcium chloride, rectal Kayexalate -potassium remained stable, will continue to monitor (4) Acute kidney injury superimposed on CKD: Code(s): N17.9 - Acute kidney failure, unspecified; N18.9 - Chronic kidney disease, unspecified Status: Acute Assessment and Plan: Acute on chronic kidney disease likely related to hypotensive and, infection, severe sepsis -chronic kidney disease likely related to diabetes, chronic hypertension -baseline creatinine is 1.40-1.80 -patient has been adequately fluid-resuscitated -also has a history of it is heart failure with preserved ejection fraction -nephrology has been consulted -CT scan of the abdomen and pelvis did not show any hydronephrosis -09/06: Renal ultrasound: Unremarkable renal ultrasound no stones, masses or hydronephrosis -continue to monitor urine output, electrolytes and renal function -urine lytes for prerenal, patient did receive IV fluids overnight, urine eosinophils were negative, CK level mildly elevated at 254 -urine output has been low Creatinine this morning is up to 3.30 -will maintain systolic blood pressures and MAP -creatinine is stable at 3.40, urine output gradually improving, 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 Cheikh rosenbergurese the patient today (5) EKG abnormality: Code(s): R94.31 - Abnormal electrocardiogram [ECG] [EKG] Status: Acute Assessment and Plan: EKG showed atrial fibrillation with slow ventricular response, incomplete right bundle branch block -could be related to hyperkalemia -elevated troponin -appreciate cardiology evaluation and recommendations -was hypotensive and bradycardic after receiving metoprolol last night, currently on dopamine. Will hold metoprolol for now -echocardiogram has been ordered (6) Chronic obstructive pulmonary disease: Code(s): J44.9 - Chronic obstructive pulmonary disease, unspecified Status: Acute Assessment and Plan: History of COPD, uses 3 L nasal cannula at home -currently not in any exacerbation -continue bronchodilators (7) Diabetes mellitus with chronic kidney disease: Code(s): E11.22 - Type 2 diabetes mellitus with diabetic chronic kidney disease Status: Chronic Assessment and Plan: History of diabetes with neuropathy and chronic kidney disease -continue Accu-Cheks, sliding scale insulin -patient NPO, hold Lantus for now blood sugars are not elevated (8) Generalized weakness: Code(s): R53.1 - Weakness Status: Acute Assessment and Plan: Generalized weakness likely related to bacteremia and UTI -will have PT/OT evaluate once patient is more stable (9) Heart failu
[2023-09-09] MEDS: PERFLUTREN LIPID MICROSPHERES 1.5 ML VIAL DILUTED TO 10 ML TOTAL VOLUME IV PUSH (10:38)
[2023-09-09 11:35] LABS: Glucose Point of Care 146 mg/dl (65-105)
--- NOTE | 2023-09-09 12:36 | IVDEFINITY ---
Prior to administration of IV Definity the patient was educated on the risks and benefits of the imaging enhancing agent including potential adverse side effects. The patient verbalized understanding. Allergies were verified. No exclusion criteria were identified and at least one of the following inclusion criteria were met: 1) physician request, 2) patient technically difficult to image (per the [place] [employer] guidelines of two or more segments not discernable within the apical view), or 3) questionable left ventricular function. ?
[2023-09-09 12:40] LABS: Iron 92 ug/dL (37-170)
[2023-09-09 12:49] LABS: Percent Iron Saturation 42 % (20-50)
--- NOTE | 2023-09-09 12:50 | PM.PNNEP ---
Progress Note: A&P Assessment and Plan (1) Acute kidney injury superimposed on CKD: Code(s): N17.9 - Acute kidney failure, unspecified; N18.9 - Chronic kidney disease, unspecified Status: Acute Assessment and Plan: Patient has chronic kidney disease. This is most likely due to diabetes and hypertension. She follows with Dr. Montoya as an outpatient. Her baseline creatinine runs around 1.5 per little bit less. The patient has acute kidney injury. Her creatinine is up to 3.2. It was already a bit high on admission and then courtney to its current level. Her urine electrolytes are pre renal. Renal ultrasound is negative CK is a little elevated but not enough to cause kidney problems. she has NESHA from hypotension, bacteremia and sepsis, and chronic pre renal azotemia due to pulmonary hypertension. yesterday she had had an episode of hypotension and bradycardia followed by a low urine output. Although by noon her hemodynamics were better she started make urine yesterday afternoon and evening. The creatinine today has not bumped very much considering all she went through yesterday. She does have some swelling and her intake/ output for the visit are very positive. Will try a couple of doses of IV Bumex. 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 CT brain is unremarkable Chest CT back in June showed says multiple pulmonary nodules. She also has pulmonary hypertension. He has might contribute to hyponatremia She has been on hydrocodone, metolazone, and pantoprazole as an outpatient which could contribute. Quetiapine rarely causes hyponatremia so I doubt if this is playing a role Sodium level seems stable right now at 133. (5) Hyperkalemia: Code(s): E87.5 - Hyperkalemia Status: Acute Assessment and Plan: resolved (6) Pulmonary hypertension: Code(s): I27.20 - Pulmonary hypertension, unspecified Status: Acute Assessment and Plan: On BiPAP (7) Hypertension: Qualifiers: Hypertension type: primary hypertension Qualified Code(s): I10 - Essential (primary) hypertension Code(s): I10 - Essential (primary) hypertension Status: Chronic Assessment and Plan: Blood pressure was low. no better. fold outpatient bp meds in as the BP rises. (8) Chronic anemia: Code(s): D64.9 - Anemia, unspecified Status: Acute Assessment and Plan: Hemoglobin is which is about where it has been running Hb dropped to 6.6. transfusion ordered. will start epo. Subjective Date/time seen: 09/09/23 12:50 Interval history: is in the room. Mary is looking better today. She is more interactive. She is breathing more easily. She does not require BiPAP. Exam Narrative: WDWN female on the ventilator in NAD skin no rash or subcu nodule head ncat lungs coarse bilaterally cor reg no rub or gallop abd BS+ nontender and soft ext 1-2+ bilateral edema. Objective Data Vital Signs Vital Signs: Vital Signs - 24 hr 09/08/23 13:30 09/08/23 13:30 09/08/23 13:40 Temperature Pulse Rate 59 L 59 L 61 Respiratory Rate 14 14 14 Blood Pressure Pulse Oximetry 99 Oxygen Delivery BiPAP Oxygen Flow Rate Fraction of In
[2023-09-09 12:54] LABS: Folic Acid > 20.0 ng/mL (2.76->20); Vitamin B12 > 1000.0 pg/mL (239-931)
[2023-09-09] MEDS: BUMETANIDE INJ 1 MG/4 ML VIAL 2 MG IV PUSH ×2 (13:47→16:58)
[2023-09-09 14:28] LABS: Protein, Total 5.4 g/dL (6.1-8.1)
--- NOTE | 2023-09-09 14:29 | PM.IMPN ---
Progress Note: A&P Assessment and Plan (1) Sepsis: Code(s): A41.9 - Sepsis, unspecified organism Status: Acute (2) Acute UTI: Code(s): N39.0 - Urinary tract infection, site not specified Status: Acute (3) Acute lactic acidosis: Code(s): E87.21 - Acute metabolic acidosis Status: Acute (4) Acute kidney injury superimposed on CKD: Code(s): N17.9 - Acute kidney failure, unspecified; N18.9 - Chronic kidney disease, unspecified Status: Acute (5) Hypertension: Qualifiers: Hypertension type: primary hypertension Qualified Code(s): I10 - Essential (primary) hypertension Code(s): I10 - Essential (primary) hypertension Status: Chronic (6) Heart failure with preserved ejection fraction: Code(s): I50.30 - Unspecified diastolic (congestive) heart failure Status: Chronic (7) Chronic obstructive pulmonary disease: Code(s): J44.9 - Chronic obstructive pulmonary disease, unspecified Status: Acute Plan 72-year-old female presented to the ED on 09/05/2023 his weakness and altered mental status. Patient noted to sirs and was diagnosed with severe sepsis secondary to UTI. Patient was adequately fluid resuscitated started on ceftriaxone and was admitted to the medical floor. On 09/06 rapid response with diaphoretic obtunded and rapid shallow breathing. Hypotensive and hyperkalemic patient was treated per protocol. Elevated troponin noted. Patient was given calcium chloride sodium bicarb hydrocortisone and was transferred to ICU for further treatment. Severe sepsis hypotension elevated lactic acid also has Gram-negative bacteremia Now hypotensive and placed on dopamine drip 09 06. Now off Gram-negative bacteremia E coli. Urine culture sensitivity resistant to ceftriaxone switched to meropenem. Leukocytosis improving UTI on meropenem Hyperkalemia elevated again and further treatment was performed Paroxysmal Atrial fibrillation on amiodarone and apixaban metoprolol Elevated troponin cardiology consulted Transaminitis acute rise likely due to AST 1434 ALT 157 ALP 134 bilirubin is normal. Abdominal ultrasound with gallbladder wall thickening with pericholecystic fluid no cholelithiasis. Findings suspicious for acalculous cholecystitis NESHA CKD stage 3 creatinine up to 3.1 baseline creatinine 1.4-1.5. Renal ultrasound unremarkable to use to rise. Nephrology following Chronic anemia with acute exacerbation. 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 Off dopamine now. Started on Vapotherm this a.m. labs reviewed. Creatinine stable.. Review of Systems Review of Systems: All systems reviewed & are unremarkable except as noted in HPI and below Exam Narrative: General: Somnolent but arouses easily, in no acute distress at this time on high-flow nasal cannula HEENT:? Pupils are equal and reactive, sclera is clear Neck:? Supple Respiratory:? Decreased air movement, decreased at bases, adequate air entry Cardiac:? S1-S2 is normal, regular rate and rhythm Abdomen:? Soft, non tender, non distended, large pannus, morbidly obese Extremities:? Bilateral lower extremity pitting edema, palpable pedal pulses, mottling as improved Neuro:? Somnolent but easily arousable, oriented x4, answers to questions appropriately and follows simple commands Skin:? Bruising noted, otherwise no other skin lesions Psych:? Anxious Objective Data Vital Signs Vital Signs: Margi
--- NOTE | 2023-09-09 14:30 | PC.NURSE ---
Addendum entered by Andrei Reardon RN 09/09/23 15:52: Gear Cutting Machine Set Up Operator notified of assessment and interventions, instructed to irrigate catheter as needed for sediment accumulation and to change the catheter if a leak in the tubing is suspected. Original Note: Patient began complaining of the urge to void, assessed catheter for kinks or obstructions, urine saturated pad noted near earle area. Irrigated with 10 ml of NaCl after providing catheter care and allowed to drain to gravity, gross amount of sediment and cloudy urine free flowing into collection bag. Will reassess @ 1600 for proper drainage
[2023-09-09 14:43] LABS: Chloride Rand Ur 22 mmol/L (32-290); Chloride/Creatinine Rand Ur 28 (38-318); Creatinine Random Urine 80 mg/dL (20-275)
[2023-09-09 15:51] LABS: Glucose Point of Care 159 mg/dl (65-105)
[2023-09-09] MEDS: hydrALAZINE HCL 20 MG/ML VIAL 10 MG IV PUSH (16:58)
[2023-09-09 19:57] LABS: Glucose Point of Care 139 mg/dl (65-105)
[2023-09-09 20:09] LABS: Hematocrit 25.8 % (37.0-47.0); Hemoglobin 8.5 g/dL (12.0-15.0)
[2023-09-09] MEDS: FLUTICASONE/SALMETEROL 115-21 MCG INHALER 1 PUFF 2 PUFF INHALATION (20:19)
[2023-09-09] MEDS: MEROPENEM 500 MG/NS 100 ML 500 MG/100 ML BAG 200 MG IVPB (21:11)
[2023-09-09] MEDS: PRIMIDONE 50 MG TABLET PO (21:12)
[2023-09-09] MEDS: rOPINIRole HCL 0.5 MG TABLET PO (21:12)
--- NOTE | 2023-09-09 23:06 | PCRCNOTE ---
Decreased liter flow on Vapotherm from 40L to 35L. Patient satting 96%
[2023-09-09 23:46] LABS: Glucose Point of Care 158 mg/dl (65-105)
[2023-09-10] VITALS (24 sets, daily range): BP systolic 102–177; BP diastolic 42–80; PULSE 65–98; RESP 15–28; TEMP 37.1–37.4; O2SAT 92–100; BMI 10.0
[2023-09-10] MEDS: IPRATROPIUM 0.5 MG/ALBUTEROL SULFATE 2.5 MG AMPUL.NEB 3 ML INHALATION ×4 (02:43→19:52)
[2023-09-10 04:11] LABS: Basophils Absolute Auto 0.1 K/mm3 (0.0-0.1); Basophils Percent Auto 0.4 % (0.2-1.2); Eosinophils Absolute Auto 0.6 K/mm3 (0-0.3); Eosinophils Percent Auto 3.8 % (0-4.4); Hematocrit 25.2 % (37.0-47.0); Hemoglobin 8.2 g/dL (12.0-15.0); Immature Granulocyte Absolute 0.23 K/mm3 (0.00-0.031); Immature Granulocyte Percent A 1.5 % (0-0.5); Lymphocytes Percent Auto 3.8 % (18.3-44.2); Mean Corpuscular HGB Conc 32.5 g/dl (32-36); Mean Corpuscular Hemoglobin 30.6 pg (26-34); Mean Platelet Volume 12.4 fl (7.4-10.4); Monocytes Absolute Auto 1.3 K/mm3 (0.1-0.6); Monocytes Percent Auto 8.2 % (2.6-8.5); Neutrophils Absolute Auto 13.1 K/mm3 (1.3-6.7); Neutrophils Percent Auto 82.3 % (45.5-73.1); Nucleated Red Blood Cells Perc 0.2 % (0.0-0.2); Platelet Count Result 148 k/mm3 (150-375); Red Blood Count 2.68 M/mm3 (4.2-5.4); Red Cell Distribution Width 19.8 % (11.5-14.5); White Blood Count 15.9 K/mm3 (4.5-10.0)
[2023-09-10] MEDS: CENTRAL LINE FLUSH 10 ML IV PUSH ×3 (04:12→20:50)
[2023-09-10 04:22] LABS: INR 1.5; Prothrombin Time 18.7 Seconds (11.1-14.7)
[2023-09-10 04:24] LABS: Partial Thromboplastin Time 27.5 Seconds (22.3-36.8)
[2023-09-10 04:25] LABS: Lactic Acid Reflex 0.7 mmol/L (0.7-2.0)
[2023-09-10 04:28] LABS: Alanine Aminotransferase 420 U/L (6-35); Alkaline Phosphatase 168 U/L (38-126); Anion Gap 12 mmol/L (4-12); Bilirubin,Total 0.9 mg/dL (0.2-1.3); Blood Urea Nitrogen 69 mg/dL (7-17); Calcium 8.9 mg/dL (8.4-10.2); Carbon Dioxide 31 mmol/L (22-30); Chloride 94 mmol/L (98-107); Estimated CRCL calculation 23 ml/min; Estimated Glomerular Filt Rate 17; Glucose 156 mg/dL (65-110); Magnesium 1.8 mg/dL (1.6-2.3); Phosphorus 4.8 mg/dL (2.5-4.5); Potassium 3.8 mmol/L (3.4-5.0); Sodium 137 mmol/L (137-145)
[2023-09-10 05:03] LABS: Aspartate Amino Transferase 1200 U/L (14-36)
[2023-09-10 05:36] LABS: Platelet Estimate Slightly Decreased (Adequate)
[2023-09-10 05:37] LABS: Anisocytosis 1+; Large Platelets Present; Schistocytes None Seen
[2023-09-10] MEDS: hydrALAZINE HCL 20 MG/ML VIAL 10 MG IV PUSH ×2 (06:29→20:42)
[2023-09-10] MEDS: ACETAMINOPHEN 325 MG TABLET 650 MG BY MOUTH ×2 (06:37→20:41)
[2023-09-10 07:46] LABS: Glucose Point of Care 182 mg/dl (65-105)
[2023-09-10] MEDS: FLUTICASONE/SALMETEROL 115-21 MCG INHALER 1 PUFF 2 PUFF INHALATION (08:00)
--- NOTE | 2023-09-10 09:02 | P.PNNP_ITS ---
Progress Note: A&P Assessment and Plan (1) NESHA (acute kidney injury): Code(s): N17.9 - Acute kidney failure, unspecified Status: Acute Assessment and Plan: * improvement by recent labs * as noted by trend of labs since admission * evaluation to date noted: * urine electrolytes pre renal * renal ultrasound is negative * CK is a little elevated but not enough to cause kidney problems * urine eosinophils negative * moderate proteinuria * suspect NESHA multifactorial: * hypotension/hemodynamic instability * infection/sepsis (bacteremia) * prerenal azotemia (from pulmonary HTN) * significant UOP noted in the last 24hrs with IV bumes * will back off on IV diuretic dosing (2) Stage 3b chronic kidney disease: Code(s): N18.32 - Chronic kidney disease, stage 3b Status: Chronic Assessment and Plan: * creatinine seems to run ~ 1.5 - 1.8mg/dl * due to HTN, DM, vascular disease and age-related change * follows with Dr. Montoya for management of CKD (3) Severe sepsis: Code(s): A41.9 - Sepsis, unspecified organism; R65.20 - Severe sepsis without septic shock Status: Acute Assessment and Plan: * as noted by lactic acidosis and hypotension on presentation * better hemodynamics noted * due to urosepsis -- blood and urine culture with E. coli * on IV antibiotics * follow repeat cultures (4) Hyperkalemia: Code(s): E87.5 - Hyperkalemia Status: Acute Assessment and Plan: * resolving/resolved * due to acute on chronic kidney disease * follow trend of repeat K+ levels (5) Anemia: Qualifiers: Anemia type: due to chronic kidney disease Chronic kidney disease stage: stage 4 (severe) Qualified Code(s): N18.4 - Chronic kidney disease, stage 4 (severe); D63.1 - Anemia in chronic kidney disease Code(s): D64.9 - Anemia, unspecified Status: Acute Assessment and Plan: * s/p PRBC transfusion (on 09/08) * presumably due to acute illness, NESHA, CKD, and chronic disease * follow trend of H/H * holding anticoagulation (6) Hypertension: Qualifiers: Hypertension type: primary hypertension Qualified Code(s): I10 - Essential (primary) hypertension Code(s): I10 - Essential (primary) hypertension Status: Chronic Assessment and Plan: * fluctuating hemodynamics noted * appears stable at this time (7) Chronic obstructive pulmonary disease: Code(s): J44.9 - Chronic obstructive pulmonary disease, unspecified Status: Acute Assessment and Plan: * known history * complicates current respiratory issues * continues supplemental oxygen * on bronchodilators (8) Generalized weakness: Code(s): R53.1 - Weakness Status: Acute Assessment and Plan: * due to acute illness (UTI + sepsis + bacteremia) * PT/OT as tolerated (9) Diabetes mellitus with chronic kidney disease: Code(s): E11.22 - Type 2 diabetes mellitus with diabetic chronic kidney disease Status: Chronic Assessment and Plan: * follow accu-cheks * glycemic control per intensivisit/hospitalist Will continue to follow. Subjective Date/time seen: 09/10/23 09:02 Interval history: Follow-up for acute kidney injury/acute renal failure on chronic kidney disease. Chart reviewed -- assuming care from Dr. Salamanca; excellent urine output in the last 24 hours with IV bumex with improvement in renal function/creatinine as well; tolerated PRBC
--- NOTE | 2023-09-10 09:02 | PM.PNNEP ---
Progress Note: A&P Assessment and Plan (1) NESHA (acute kidney injury): Code(s): N17.9 - Acute kidney failure, unspecified Status: Acute Assessment and Plan: improvement by recent labs as noted by trend of labs since admission evaluation to date noted: urine electrolytes pre renal renal ultrasound is negative CK is a little elevated but not enough to cause kidney problems urine eosinophils negative moderate proteinuria suspect NESHA multifactorial: hypotension/hemodynamic instability infection/sepsis (bacteremia) prerenal azotemia (from pulmonary HTN) significant UOP noted in the last 24hrs with IV bumes will back off on IV diuretic dosing (2) Stage 3b chronic kidney disease: Code(s): N18.32 - Chronic kidney disease, stage 3b Status: Chronic Assessment and Plan: creatinine seems to run ~ 1.5 - 1.8mg/dl due to HTN, DM, vascular disease and age-related change follows with Dr. Montoya for management of CKD (3) Severe sepsis: Code(s): A41.9 - Sepsis, unspecified organism; R65.20 - Severe sepsis without septic shock Status: Acute Assessment and Plan: as noted by lactic acidosis and hypotension on presentation better hemodynamics noted due to urosepsis -- blood and urine culture with E. coli on IV antibiotics follow repeat cultures (4) Hyperkalemia: Code(s): E87.5 - Hyperkalemia Status: Acute Assessment and Plan: resolving/resolved due to acute on chronic kidney disease follow trend of repeat K+ levels (5) Anemia: Qualifiers: Anemia type: due to chronic kidney disease Chronic kidney disease stage: stage 4 (severe) Qualified Code(s): N18.4 - Chronic kidney disease, stage 4 (severe); D63.1 - Anemia in chronic kidney disease Code(s): D64.9 - Anemia, unspecified Status: Acute Assessment and Plan: s/p PRBC transfusion (on 09/08) presumably due to acute illness, NESHA, CKD, and chronic disease follow trend of H/H holding anticoagulation (6) Hypertension: Qualifiers: Hypertension type: primary hypertension Qualified Code(s): I10 - Essential (primary) hypertension Code(s): I10 - Essential (primary) hypertension Status: Chronic Assessment and Plan: fluctuating hemodynamics noted appears stable at this time (7) Chronic obstructive pulmonary disease: Code(s): J44.9 - Chronic obstructive pulmonary disease, unspecified Status: Acute Assessment and Plan: known history complicates current respiratory issues continues supplemental oxygen on bronchodilators (8) Generalized weakness: Code(s): R53.1 - Weakness Status: Acute Assessment and Plan: due to acute illness (UTI + sepsis + bacteremia) PT/OT as tolerated (9) Diabetes mellitus with chronic kidney disease: Code(s): E11.22 - Type 2 diabetes mellitus with diabetic chronic kidney disease Status: Chronic Assessment and Plan: follow accu-cheks glycemic control per intensivisit/hospitalist Will continue to follow. Subjective Date/time seen: 09/10/23 09:02 Interval history: Follow-up for acute kidney injury/acute renal failure on chronic kidney disease. Chart reviewed -- assuming care from Dr. Salamanca; excellent urine output in the last 24 hours with IV bumex with improvement in renal function/creatinine as well; tolerated PRBC transfusion yesterday with improvement in H/H; remains hemodynamically stable; states that she is extremely thirsty at the time of my visit. Exam Narrative: General: elderly but large female in NAD Heart: normal S1 and S2; no rub Lungs: coarse breath sounds; decreased at bases Abdomen: soft, nontender, nondistended, positive bowel sounds Extremities: no cyanosis or clubbing; 1+ edema Skin: warm and dry; bruising noted Objective Data Vital Signs Vital Signs: Vital Signs
--- NOTE | 2023-09-10 09:17 | PCSTNOTE ---
Please refer to the Bedside Swallow Evaluation in the EMR. Please note, silent aspiration cannot be ruled out at bedside.
--- NOTE | 2023-09-10 09:19 | WPDINTPN ---
Progress Note: A&P Assessment and Plan (1) Severe sepsis: Code(s): A41.9 - Sepsis, unspecified organism; R65.20 - Severe sepsis without septic shock Status: Acute Assessment and Plan: Patient with severe sepsis, hypotension elevated lactic acid, likely related to E coli UTI and Gram-negative bacteremia - patient has been adequately fluid-resuscitated -overnight lactic acid was elevated but has normalized -09/04: Blood cultures growing E coli -09/04: Urine cultures growing E coli, resistant to ceftriaxone -09/06: ceftriaxone discontinue, continue meropenem -09/07: Repeat blood cultures: Gram-negative bacilli times -leukocytosis improving, patient has been afebrile 09/09: Will repeat blood cultures (2) Acute UTI: Code(s): N39.0 - Urinary tract infection, site not specified Status: Acute Assessment and Plan: Treatment as above, urine cultures growing E coli, resistant to cephalosporin (3) Hyperkalemia: Code(s): E87.5 - Hyperkalemia Status: Acute Assessment and Plan: Patient with hyperkalemia likely related to acute on chronic kidney disease -09/07: Potassium of 6.4 early this morning, was treated and repeat potassium was 5.5, -hyperkalemia has improved and resolved -potassium remained stable, will continue to monitor (4) Acute kidney injury superimposed on CKD: Code(s): N17.9 - Acute kidney failure, unspecified; N18.9 - Chronic kidney disease, unspecified Status: Acute Assessment and Plan: Acute on chronic kidney disease likely related to hypotensive and, infection, severe sepsis -chronic kidney disease likely related to diabetes, chronic hypertension -baseline creatinine is 1.40-1.80 -patient has been adequately fluid-resuscitated -also has a history of it is heart failure with preserved ejection fraction -nephrology has been consulted -CT scan of the abdomen and pelvis did not show any hydronephrosis -09/06: Renal ultrasound: Unremarkable renal ultrasound no stones, masses or hydronephrosis -continue to monitor urine output, electrolytes and renal function -urine lytes for prerenal, patient did receive IV fluids overnight, urine eosinophils were negative, CK level mildly elevated at 254 -urine output has been low Creatinine this morning is up to 3.30 -will maintain systolic blood pressures and MAP -09/08: Patient was started on Bumex 2 mg IV b.i.d., had excellent urine output with -5850 her mL in fluid balance in 24 hours -discuss with Nephrology again this morning, will decrease Bumex to 1 mg b.i.d. -BUN/creatinine improving (5) EKG abnormality: Code(s): R94.31 - Abnormal electrocardiogram [ECG] [EKG] Status: Acute Assessment and Plan: EKG showed atrial fibrillation with slow ventricular response, incomplete right bundle branch block -could be related to hyperkalemia -elevated troponin -appreciate cardiology evaluation and recommendations -bradycardia and hypotension have improved, patient is currently hypertensive requiring p.r.n. hydralazine -Add small dose of amlodipine -09/08: Echocardiogram Summary 1. Technically challenging study because of obesity, definity contrast utilized. 2. Normal left ventricular size with mild concentric hypertrophy and normal systolic function. 3. Mildly sclerotic aortic valve which is not stenotic. 4. Moderate biatrial dilation. 5. Small amount of mitral and aortic valve regurgitation. 6. Compared with echocardiogram done in this laboratory 2 months ago findings are essentially unchanged. 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
--- NOTE | 2023-09-10 09:28 | PCSTNOTE ---
Please refer to the Bedside Swallow Evaluation in the EMR. Please note, silent aspiration cannot be ruled out at bedside.
[2023-09-10] MEDS: BUMETANIDE INJ 1 MG/4 ML VIAL IV PUSH ×2 (09:29→16:47)
[2023-09-10 09:30] LABS: Albumin 2.6 g/dL (3.8-4.8); Alpha 1 Globulin 0.5 g/dL (0.2-0.3); Beta 1 Globulin 0.4 g/dL (0.4-0.6); Gamma Globulin 0.6 g/dL (0.8-1.7)
[2023-09-10] MEDS: GABAPENTIN 100 MG CAPSULE PO ×3 (09:30→16:47)
[2023-09-10] MEDS: FLUoxetine HCL 20 MG CAPSULE 40 MG PO ×2 (09:30→20:41)
[2023-09-10] MEDS: TOLNAFTATE 1% POWDER 45 GM BTL 1 APPLIC TOPICAL ×2 (09:30→20:42)
[2023-09-10] MEDS: PANTOPRAZOLE SODIUM IV 40 MG VIAL IV PUSH (09:30)
[2023-09-10] MEDS: PRIMIDONE 50 MG TABLET PO ×2 (09:30→20:41)
[2023-09-10] MEDS: amLODIPine BESYLATE 2.5 MG TABLET PO (09:37)
[2023-09-10] MEDS: MEROPENEM 500 MG/NS 100 ML 500 MG/100 ML BAG 200 MG IVPB ×2 (09:38→20:34)
[2023-09-10] MEDS: INSULIN GLARGINE (*BKC) 100 UNITS/ML 10 UNITS SUB-Q (09:38)
[2023-09-10 11:51] LABS: Glucose Point of Care 172 mg/dl (65-105)
--- NOTE | 2023-09-10 12:21 | PCSTNOTE ---
Patient seen for BSE today 09/09. Requested new order to do a full assessment tomorrow 09/10 for more solid foods and to ensure that today's consistencies are still appropriate.
[2023-09-10] MEDS: CARBIDOPA/LEVODOPA 25/100 MG TABLET 3 TABLET PO ×2 (12:46→16:47)
--- NOTE | 2023-09-10 16:01 | PM.IMPN ---
Progress Note: A&P Assessment and Plan (1) Sepsis: Code(s): A41.9 - Sepsis, unspecified organism Status: Acute (2) Acute UTI: Code(s): N39.0 - Urinary tract infection, site not specified Status: Acute (3) Acute lactic acidosis: Code(s): E87.21 - Acute metabolic acidosis Status: Acute (4) Acute kidney injury superimposed on CKD: Code(s): N17.9 - Acute kidney failure, unspecified; N18.9 - Chronic kidney disease, unspecified Status: Acute (5) Hypertension: Qualifiers: Hypertension type: primary hypertension Qualified Code(s): I10 - Essential (primary) hypertension Code(s): I10 - Essential (primary) hypertension Status: Chronic (6) Heart failure with preserved ejection fraction: Code(s): I50.30 - Unspecified diastolic (congestive) heart failure Status: Chronic (7) Chronic obstructive pulmonary disease: Code(s): J44.9 - Chronic obstructive pulmonary disease, unspecified Status: Acute Plan 72-year-old female presented to the ED on 09/05/2023 his weakness and altered mental status. Patient noted to sirs and was diagnosed with severe sepsis secondary to UTI. Patient was adequately fluid resuscitated started on ceftriaxone and was admitted to the medical floor. On 09/06 rapid response with diaphoretic obtunded and rapid shallow breathing. Hypotensive and hyperkalemic patient was treated per protocol. Elevated troponin noted. Patient was given calcium chloride sodium bicarb hydrocortisone and was transferred to ICU for further treatment. Severe sepsis hypotension elevated lactic acid also has Gram-negative bacteremia which was identified as E coli needed vasopressor on 09 06. Now off E coli ESBL bacteremia Urine culture sensitivity resistant to ceftriaxone switched to meropenem. Leukocytosis improving UTI on meropenem Hyperkalemia this has resolved now Paroxysmal Atrial fibrillation on amiodarone and apixaban metoprolol Elevated troponin cardiology consulted Transaminitis acute rise likely due to AST 1434 ALT 157 ALP 134 bilirubin is normal. Abdominal ultrasound with gallbladder wall thickening with pericholecystic fluid no cholelithiasis. Findings suspicious for acalculous cholecystitis. Likely shock liver. Levels improving NESHA CKD stage 3 creatinine up to 3.1 baseline creatinine 1.4-1.5. Renal ultrasound unremarkable. Nephrology following. Creatinine now improving with improved urine output diuresis started per nephrology Chronic anemia with acute drop 6.6 transfused 09/09/2023. Monitor blood count COPD on 2-3 L oxygen Anxiety depression Morbid obesity Diabetic neuropathy GERD Restless leg syndrome Obstructive sleep apnea not on CPAP Parkinson's disease Hypothyroidism Hypertension Hyperlipidemia History of DVT on Eliquis Heart failure with preserved ejection fraction next history of GI bleed secondary to peptic ulcer Type 2 diabetes DVT prophylaxis on SCDs due to anemia Disposition: PT OT to see transferred to IMU Subjective Date/time seen: 09/10/23 16:01 Interval history: Patient feeling much better today. Her oxygen requirement has lowered down to 2 L via nasal cannula. She is also more alert and oriented. She is off vasopressors now. Mild fever yesterday morning afebrile since then. Review of Systems Review of Systems: All systems reviewed & are unremarkable except as noted in HPI and below Exam Narrative: General: Patient more awake, in no acute distress at this time HEENT:? Pupils are equal and reactive, sclera Neck:? Supple Respiratory:? Better air movement throughout both lungs, no wheezing, decreased at bases Cardiac:? S1-S2 is normal, regular rate and rhythm Abdomen:? Soft, non tender, non distended, large pannus, morbidly obese Extremities:? Bilateral lower extremity pitting edema improving, palpable pedal pulses, Neuro:? Patient more awake this morning, oriented x4, answers to questions
[2023-09-10 16:33] LABS: Glucose Point of Care 147 mg/dl (65-105)
[2023-09-10] MEDS: rOPINIRole HCL 0.5 MG TABLET PO (20:42)
[2023-09-10] MEDS: PRAZOSIN HCL 5 MG CAPSULE PO (20:42)
[2023-09-10 20:58] LABS: Glucose Point of Care 128 mg/dl (65-105)
[2023-09-10 23:13] LABS: Glucose Point of Care 138 mg/dl (65-105)
[2023-09-11] VITALS (22 sets, daily range): BP systolic 101–129; BP diastolic 39–57; PULSE 54–80; RESP 12–23; TEMP 36.6–37.2; O2SAT 91–98
--- NOTE | 2023-09-11 00:04 | PC.NURSE ---
Patient cares taken over by Ed MARIEE. This nurse gave report to Ed MARIEE 09/10/23 at [id number]
[2023-09-11] MEDS: IPRATROPIUM 0.5 MG/ALBUTEROL SULFATE 2.5 MG AMPUL.NEB 3 ML INHALATION ×4 (02:02→20:44)
[2023-09-11 04:32] LABS: Basophils Absolute Auto 0.1 K/mm3 (0.0-0.1); Basophils Percent Auto 0.4 % (0.2-1.2); Eosinophils Absolute Auto 1.6 K/mm3 (0-0.3); Eosinophils Percent Auto 10.1 % (0-4.4); Hematocrit 25.4 % (37.0-47.0); Hemoglobin 8.2 g/dL (12.0-15.0); Immature Granulocyte Absolute 0.39 K/mm3 (0.00-0.031); Immature Granulocyte Percent A 2.4 % (0-0.5); Lymphocytes Absolute Auto 0.81 K/mm3 (0.9-3.2); Mean Corpuscular HGB Conc 32.3 g/dl (32-36); Mean Corpuscular Hemoglobin 30.5 pg (26-34); Mean Corpuscular Volume 94.4 fl (80-100); Mean Platelet Volume 11.9 fl (7.4-10.4); Monocytes Absolute Auto 1.4 K/mm3 (0.1-0.6); Monocytes Percent Auto 8.7 % (2.6-8.5); Neutrophils Absolute Auto 11.8 K/mm3 (1.3-6.7); Neutrophils Percent Auto 73.4 % (45.5-73.1); Nucleated Red Blood Cells Perc 0.4 % (0.0-0.2); Platelet Count Result 161 k/mm3 (150-375); Red Blood Count 2.69 M/mm3 (4.2-5.4); Red Cell Distribution Width 19.4 % (11.5-14.5); White Blood Count 16.1 K/mm3 (4.5-10.0)
[2023-09-11 04:40] LABS: INR 1.3; Prothrombin Time 16.9 Seconds (11.1-14.7)
[2023-09-11 04:41] LABS: Partial Thromboplastin Time 28.6 Seconds (22.3-36.8)
[2023-09-11 04:44] LABS: Alanine Aminotransferase 223 U/L (6-35); Albumin Level 3.6 g/dL (3.5-5.1); Alkaline Phosphatase 160 U/L (38-126); Anion Gap 11 mmol/L (4-12); Aspartate Amino Transferase 657 U/L (14-36); Blood Urea Nitrogen 63 mg/dL (7-17); Calcium 8.9 mg/dL (8.4-10.2); Carbon Dioxide 34 mmol/L (22-30); Chloride 89 mmol/L (98-107); Estimated CRCL calculation 27 ml/min; Estimated Glomerular Filt Rate 21; Glucose 132 mg/dL (65-110); Magnesium 1.6 mg/dL (1.6-2.3); Phosphorus 4.5 mg/dL (2.5-4.5); Sodium 134 mmol/L (137-145)
[2023-09-11 04:45] LABS: Lactic Acid Reflex 0.8 mmol/L (0.7-2.0)
[2023-09-11 04:57] LABS: Anisocytosis 2+; Hypochromasia 2+; Platelet Estimate Adequate (Adequate)
[2023-09-11 04:58] LABS: Ovalocytes 1+; Schistocytes None Seen
[2023-09-11] MEDS: FLUTICASONE/SALMETEROL 115-21 MCG INHALER 1 PUFF 2 PUFF INHALATION ×2 (07:34→20:48)
[2023-09-11 08:09] LABS: Glucose Point of Care 145 mg/dl (65-105)
[2023-09-11] MEDS: CARBIDOPA/LEVODOPA 25/100 MG TABLET 3 TABLET PO ×3 (08:28→17:27)
[2023-09-11] MEDS: FLUoxetine HCL 20 MG CAPSULE 40 MG PO ×2 (08:29→20:08)
[2023-09-11] MEDS: PRIMIDONE 50 MG TABLET PO ×2 (08:29→20:08)
[2023-09-11] MEDS: PANTOPRAZOLE SODIUM IV 40 MG VIAL IV PUSH (08:29)
[2023-09-11] MEDS: amLODIPine BESYLATE 2.5 MG TABLET PO (08:29)
[2023-09-11] MEDS: MEROPENEM 500 MG/NS 100 ML 500 MG/100 ML BAG 200 MG IVPB (08:29)
[2023-09-11] MEDS: GABAPENTIN 100 MG CAPSULE PO ×3 (08:29→17:27)
[2023-09-11] MEDS: BUMETANIDE INJ 1 MG/4 ML VIAL IV PUSH ×2 (08:29→17:27)
[2023-09-11] MEDS: CENTRAL LINE FLUSH 10 ML IV PUSH ×3 (08:30→20:08)
[2023-09-11] MEDS: TOLNAFTATE 1% POWDER 45 GM BTL 1 APPLIC TOPICAL ×2 (08:30→20:08)
--- NOTE | 2023-09-11 09:48 | PCSTNOTE ---
Please refer to the Bedside Swallow Evaluation in the EMR. Please note, silent aspiration cannot be ruled out at bedside.
--- NOTE | 2023-09-11 11:09 | PM.IMPN ---
Progress Note: A&P Assessment and Plan (1) Severe sepsis: Code(s): A41.9 - Sepsis, unspecified organism; R65.20 - Severe sepsis without septic shock Status: Acute Assessment and Plan: Patient presents with severe sepsis with hypotension. lactic acidosis likely related to E coli UTI and bacteremia Patient was adequately fluid-resuscitated Lactic acid has normalized -09/04: Blood cultures growing ESBL E coli -09/04: Urine cultures growing ESBL E coli -09/06: ceftriaxone discontinue, meropenem started 09/06 Renal US showing no acute findings. -09/07: Repeat blood cultures growing ESBL E coli WBC peaked at 22K but now stable at 14-16K range. -09/09: Repeat blood cultures NGTD Continue Meropenem. Dose adjusted as her renal function improves. (2) Acute UTI: Code(s): N39.0 - Urinary tract infection, site not specified Status: Acute Assessment and Plan: UA is consistent with UTI. UCx collected. Rocephin started. UCx growing ESBL E coli. Antibiotics adjusted (3) Acute kidney injury superimposed on CKD: Code(s): N17.9 - Acute kidney failure, unspecified; N18.9 - Chronic kidney disease, unspecified Status: Acute Assessment and Plan: Acute on chronic kidney disease related to hypotensive, infection and severe sepsis CKD related to DM and HTN with baseline Cr 1.40-1.80 She also has a history of CHF with precerved EF Cr climbed to 3.4. She was adequately fluid-resuscitated Nephrology was consulted Urine lytes consistent with prerenal etilogy; urine eosinophils were negative, CK level mildly elevated at 254 CT scan of the abdomen and pelvis showing no hydronephrosis Renal ultrasound showing no stones, masses or hydronephrosis 09/08: Patient was started on Bumex 2 mg IV b.i.d., had excellent urine output BUN/creatinine improving with Cr down to 2.3 today Continue to monitor urine output, electrolytes and renal function (4) Hyperkalemia: Code(s): E87.5 - Hyperkalemia Status: Acute Assessment and Plan: Patient with hyperkalemia (6.4) likely related to acute on chronic kidney disease Potassium was treated appropriately with improvement. Potassium again 6.4 on 09/07 Potassium again treat appropriately. Potassium has normalized Potassium low this morning. Continue to monitor. Replace if continues to drop (5) Atrial fibrillation: Code(s): I48.91 - Unspecified atrial fibrillation Status: Chronic Assessment and Plan: EKG showed atrial fibrillation with slow ventricular response and incomplete right bundle branch block -could be related to hyperkalemia Troponin elevated to 0.76. Cardiology consulted and appreciate their evaluation and recommendations Echo showing normal LV size with mild concentric LVH and normal systolic function with mild valvular disease. 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 Bradycardia and hypotension have improved Continue to follow on telemetry (6) Chronic obstructive pulmonary disease: Code(s): J44.9 - Chronic obstructive pulmonary disease, unspecified Status: Acute Assessment and Plan: Patient has a history of COPD and is on 3 L oxygen at night. She is intolerant to noninvasive ventilation for her sleep apnea Continue Advair. Continue bronchodilators (7) Diabetes mellitus with chronic kidney disease: Code(s): E11.22 - Type 2 diabetes mellitus with diabetic chronic kidney disease Status: Chronic Assessment and Plan: History of diabetes with neuropathy and chronic kidney disease The patient's blood glucose was reviewed on 09/10 Glucose remains well controlled. Continue AccuCheks covering with sliding scale. Hypoglycemia protocol available as needed. Continue to monitor (8) Generalized weakness: Code(s): R53.1 - Weakness Status: Acute Assessment and Plan: Generalized weakness related to bact
[2023-09-11 12:13] LABS: Glucose Point of Care 201 mg/dl (65-105)
[2023-09-11] MEDS: INSULIN GLARGINE (*BKC) 100 UNITS/ML 10 UNITS SUB-Q (12:14)
[2023-09-11] MEDS: INSULIN ASPART (*BKC) 100 UNITS/ML SUB-Q (12:14)
--- NOTE | 2023-09-11 12:47 | PM.PNNEP ---
Progress Note: A&P Assessment and Plan (1) NESHA (acute kidney injury): Code(s): N17.9 - Acute kidney failure, unspecified Status: Acute Assessment and Plan: as noted on admission improvement by recent labs evaluation to date noted: urine electrolytes pre renal renal ultrasound is negative CK is a little elevated but not enough to cause kidney problems urine eosinophils negative moderate proteinuria suspect NESHA multifactorial: hypotension/hemodynamic instability infection/sepsis (bacteremia) prerenal azotemia (from pulmonary HTN) good urine output with IV diureics follow trend of repeat labs (2) Stage 3b chronic kidney disease: Code(s): N18.32 - Chronic kidney disease, stage 3b Status: Chronic Assessment and Plan: creatinine seems to run ~ 1.5 - 1.8mg/dl due to HTN, DM, vascular disease and age-related change follows with Dr. Montoya for management of CKD (3) Severe sepsis: Code(s): A41.9 - Sepsis, unspecified organism; R65.20 - Severe sepsis without septic shock Status: Acute Assessment and Plan: as noted by lactic acidosis and hypotension on presentation better hemodynamics noted due to urosepsis -- blood and urine culture with E. coli on IV antibiotics follow repeat cultures (4) Hyperkalemia: Code(s): E87.5 - Hyperkalemia Status: Acute Assessment and Plan: resolving/resolved due to acute on chronic kidney disease follow trend of repeat K+ levels (5) Anemia: Qualifiers: Anemia type: due to chronic kidney disease Chronic kidney disease stage: stage 4 (severe) Qualified Code(s): N18.4 - Chronic kidney disease, stage 4 (severe); D63.1 - Anemia in chronic kidney disease Code(s): D64.9 - Anemia, unspecified Status: Acute Assessment and Plan: s/p PRBC transfusion (on 09/08) presumably due to acute illness, NESHA, CKD, and chronic disease follow trend of H/H holding anticoagulation (6) Hypertension: Qualifiers: Hypertension type: primary hypertension Qualified Code(s): I10 - Essential (primary) hypertension Code(s): I10 - Essential (primary) hypertension Status: Chronic Assessment and Plan: fluctuating hemodynamics noted appears stable at this time (7) Chronic obstructive pulmonary disease: Code(s): J44.9 - Chronic obstructive pulmonary disease, unspecified Status: Acute Assessment and Plan: known history complicates current respiratory issues continues supplemental oxygen on bronchodilators (8) Generalized weakness: Code(s): R53.1 - Weakness Status: Acute Assessment and Plan: due to acute illness (UTI + sepsis + bacteremia) PT/OT as tolerated (9) Diabetes mellitus with chronic kidney disease: Code(s): E11.22 - Type 2 diabetes mellitus with diabetic chronic kidney disease Status: Chronic Assessment and Plan: follow accu-cheks glycemic control per hospitalist Will continue to follow. Subjective Date/time seen: 09/11/23 12:47 Interval history: Follow-up for acute kidney injury/acute renal failure on chronic kidney disease. Appears to be doing reasonably well at the time of my visit; oxygen requirement have improved in the last 24 hours; continues to make good urine output in response to diuretics with improvement in renal function/creatinine as well; no other acute issues/events overnight or earlier this morning. Exam Narrative: General: elderly but large female in NAD Heart: normal S1 and S2; no rub Lungs: coarse breath sounds; decreased at bases Abdomen: soft, nontender, nondistended, positive bowel sounds Extremities: no cyanosis or clubbing; 1+ edema Skin: warm and intact; bruising noted Objective Data Vital Signs Vital Signs: Vital Signs Temp Pulse Resp BP Pulse Ox O2 Del Method O2 Flow Rate 09/11/23 12:00 97.8 F
--- NOTE | 2023-09-11 12:47 | P.PNNP_ITS ---
Progress Note: A&P Assessment and Plan (1) NESHA (acute kidney injury): Code(s): N17.9 - Acute kidney failure, unspecified Status: Acute Assessment and Plan: * as noted on admission * improvement by recent labs * evaluation to date noted: * urine electrolytes pre renal * renal ultrasound is negative * CK is a little elevated but not enough to cause kidney problems * urine eosinophils negative * moderate proteinuria * suspect NESHA multifactorial: * hypotension/hemodynamic instability * infection/sepsis (bacteremia) * prerenal azotemia (from pulmonary HTN) * good urine output with IV diureics * follow trend of repeat labs (2) Stage 3b chronic kidney disease: Code(s): N18.32 - Chronic kidney disease, stage 3b Status: Chronic Assessment and Plan: * creatinine seems to run ~ 1.5 - 1.8mg/dl * due to HTN, DM, vascular disease and age-related change * follows with Dr. Montoya for management of CKD (3) Severe sepsis: Code(s): A41.9 - Sepsis, unspecified organism; R65.20 - Severe sepsis without septic shock Status: Acute Assessment and Plan: * as noted by lactic acidosis and hypotension on presentation * better hemodynamics noted * due to urosepsis -- blood and urine culture with E. coli * on IV antibiotics * follow repeat cultures (4) Hyperkalemia: Code(s): E87.5 - Hyperkalemia Status: Acute Assessment and Plan: * resolving/resolved * due to acute on chronic kidney disease * follow trend of repeat K+ levels (5) Anemia: Qualifiers: Anemia type: due to chronic kidney disease Chronic kidney disease stage: stage 4 (severe) Qualified Code(s): N18.4 - Chronic kidney disease, stage 4 (severe); D63.1 - Anemia in chronic kidney disease Code(s): D64.9 - Anemia, unspecified Status: Acute Assessment and Plan: * s/p PRBC transfusion (on 09/08) * presumably due to acute illness, NESHA, CKD, and chronic disease * follow trend of H/H * holding anticoagulation (6) Hypertension: Qualifiers: Hypertension type: primary hypertension Qualified Code(s): I10 - Essential (primary) hypertension Code(s): I10 - Essential (primary) hypertension Status: Chronic Assessment and Plan: * fluctuating hemodynamics noted * appears stable at this time (7) Chronic obstructive pulmonary disease: Code(s): J44.9 - Chronic obstructive pulmonary disease, unspecified Status: Acute Assessment and Plan: * known history * complicates current respiratory issues * continues supplemental oxygen * on bronchodilators (8) Generalized weakness: Code(s): R53.1 - Weakness Status: Acute Assessment and Plan: * due to acute illness (UTI + sepsis + bacteremia) * PT/OT as tolerated (9) Diabetes mellitus with chronic kidney disease: Code(s): E11.22 - Type 2 diabetes mellitus with diabetic chronic kidney disease Status: Chronic Assessment and Plan: * follow accu-cheks * glycemic control per hospitalist Will continue to follow. Subjective Date/time seen: 09/11/23 12:47 Interval history: Follow-up for acute kidney injury/acute renal failure on chronic kidney disease. Appears to be doing reasonably well at the time of my visit; oxygen requirement have improved in the last 24 hours; continues to make good urine output in response to diuretics with improvement in renal function/creatinine as well; no ot
[2023-09-11 16:48] LABS: Glucose Point of Care 140 mg/dl (65-105)
[2023-09-11] MEDS: POTASSIUM CHLORIDE 20 MEQ PACKET (FOR LIQUID) PO (17:27)
[2023-09-11] MEDS: PRAZOSIN HCL 5 MG CAPSULE PO (20:08)
[2023-09-11] MEDS: rOPINIRole HCL 0.5 MG TABLET PO (20:08)
[2023-09-11] MEDS: MEROPENEM 1 GM/NS 100 ML 1 GM/100 ML BAG IVPB (20:17)
--- NOTE | 2023-09-11 21:30 | PC.NURSE ---
Patient refuses bipap. Patient educated risks and benefits of wearing versus not wearing, patient states she will wear it if she feels short of breath. Vital signs stable.
[2023-09-11] MEDS: ALPRAZolam (*CRX) 0.5 MG TABLET 1 MG PO (22:48)
[2023-09-12] VITALS (19 sets, daily range): BP systolic 123–161; BP diastolic 49–64; PULSE 60–77; RESP 14–27; TEMP 36.4–37.1; O2SAT 90–100
[2023-09-12] MEDS: IPRATROPIUM 0.5 MG/ALBUTEROL SULFATE 2.5 MG AMPUL.NEB 3 ML INHALATION ×4 (02:40→20:31)
[2023-09-12 04:05] LABS: Basophils Absolute Auto 0.1 K/mm3 (0.0-0.1); Basophils Percent Auto 0.5 % (0.2-1.2); Eosinophils Absolute Auto 1.8 K/mm3 (0-0.3); Eosinophils Percent Auto 12.7 % (0-4.4); Hemoglobin 8.1 g/dL (12.0-15.0); Immature Granulocyte Absolute 0.36 K/mm3 (0.00-0.031); Immature Granulocyte Percent A 2.5 % (0-0.5); Lymphocytes Percent Auto 6.4 % (18.3-44.2); Mean Corpuscular HGB Conc 32.4 g/dl (32-36); Mean Corpuscular Hemoglobin 30.9 pg (26-34); Mean Corpuscular Volume 95.4 fl (80-100); Mean Platelet Volume 11.9 fl (7.4-10.4); Monocytes Absolute Auto 1.6 K/mm3 (0.1-0.6); Neutrophils Absolute Auto 9.5 K/mm3 (1.3-6.7); Neutrophils Percent Auto 66.9 % (45.5-73.1); Nucleated Red Blood Cells Perc 0.4 % (0.0-0.2); Platelet Count Result 186 k/mm3 (150-375); Red Blood Count 2.62 M/mm3 (4.2-5.4); Red Cell Distribution Width 19.1 % (11.5-14.5); White Blood Count 14.2 K/mm3 (4.5-10.0)
[2023-09-12] MEDS: CENTRAL LINE FLUSH 10 ML IV PUSH ×2 (04:06→12:00)
[2023-09-12 04:15] LABS: Alanine Aminotransferase 185 U/L (6-35); Albumin Level 3.7 g/dL (3.5-5.1); Alkaline Phosphatase 161 U/L (38-126); Anion Gap 11 mmol/L (4-12); Aspartate Amino Transferase 307 U/L (14-36); Bilirubin,Total 0.9 mg/dL (0.2-1.3); Blood Urea Nitrogen 60 mg/dL (7-17); Calcium 8.8 mg/dL (8.4-10.2); Carbon Dioxide 36 mmol/L (22-30); Chloride 87 mmol/L (98-107); Estimated CRCL calculation 32 ml/min; Estimated Glomerular Filt Rate 26; Glucose 134 mg/dL (65-110); Magnesium 1.5 mg/dL (1.6-2.3); Potassium 2.9 mmol/L (3.4-5.0); Sodium 134 mmol/L (137-145)
[2023-09-12 04:17] LABS: Lactic Acid Reflex 0.6 mmol/L (0.7-2.0)
[2023-09-12 04:18] LABS: INR 1.2; Prothrombin Time 15.9 Seconds (11.1-14.7)
[2023-09-12 04:19] LABS: Partial Thromboplastin Time 29.7 Seconds (22.3-36.8)
[2023-09-12] MEDS: GABAPENTIN 100 MG CAPSULE PO ×3 (08:00→16:02)
[2023-09-12] MEDS: ACETAMINOPHEN 325 MG TABLET 650 MG BY MOUTH (08:00)
[2023-09-12] MEDS: CARBIDOPA/LEVODOPA 25/100 MG TABLET 3 TABLET PO ×3 (08:00→16:02)
[2023-09-12] MEDS: PRIMIDONE 50 MG TABLET PO ×2 (08:01→21:15)
[2023-09-12] MEDS: PANTOPRAZOLE SODIUM IV 40 MG VIAL IV PUSH (08:01)
[2023-09-12] MEDS: FLUoxetine HCL 20 MG CAPSULE 40 MG PO ×2 (08:01→21:16)
[2023-09-12] MEDS: amLODIPine BESYLATE 2.5 MG TABLET PO (08:01)
[2023-09-12] MEDS: BUMETANIDE INJ 1 MG/4 ML VIAL IV PUSH ×2 (08:02→16:03)
[2023-09-12 08:12] LABS: Glucose Point of Care 123 mg/dl (65-105)
[2023-09-12] MEDS: MEROPENEM 1 GM/NS 100 ML 1 GM/100 ML BAG IVPB ×2 (08:13→20:55)
[2023-09-12] MEDS: TOLNAFTATE 1% POWDER 45 GM BTL 1 APPLIC TOPICAL ×2 (08:14→21:16)
[2023-09-12] MEDS: FLUTICASONE/SALMETEROL 115-21 MCG INHALER 1 PUFF 2 PUFF INHALATION ×2 (08:22→20:31)
--- NOTE | 2023-09-12 09:12 | PM.PNNEP ---
Progress Note: A&P Assessment and Plan (1) NESHA (acute kidney injury): Code(s): N17.9 - Acute kidney failure, unspecified Status: Acute Assessment and Plan: as noted on admission ongoing improvement noted evaluation to date noted: urine electrolytes pre renal renal ultrasound is negative CK is a little elevated but not enough to cause kidney problems urine eosinophils negative moderate proteinuria suspect NESAH multifactorial: hypotension/hemodynamic instability infection/sepsis (bacteremia) prerenal azotemia (from pulmonary HTN) good urine output with IV diuretics follow trend of repeat labs (2) Stage 3b chronic kidney disease: Code(s): N18.32 - Chronic kidney disease, stage 3b Status: Chronic Assessment and Plan: creatinine seems to run ~ 1.5 - 1.8mg/dl due to HTN, DM, vascular disease and age-related change follows with Dr. Montoya for management of CKD (3) Severe sepsis: Code(s): A41.9 - Sepsis, unspecified organism; R65.20 - Severe sepsis without septic shock Status: Acute Assessment and Plan: as noted by lactic acidosis and hypotension on presentation better hemodynamics noted due to urosepsis -- blood and urine culture with E. coli on IV antibiotics follow repeat cultures (4) Hyperkalemia: Code(s): E87.5 - Hyperkalemia Status: Acute Assessment and Plan: resolving/resolved due to acute on chronic kidney disease follow trend of repeat K+ levels (5) Anemia: Qualifiers: Anemia type: due to chronic kidney disease Chronic kidney disease stage: stage 4 (severe) Qualified Code(s): N18.4 - Chronic kidney disease, stage 4 (severe); D63.1 - Anemia in chronic kidney disease Code(s): D64.9 - Anemia, unspecified Status: Acute Assessment and Plan: s/p PRBC transfusion (on 09/08) presumably due to acute illness, NESHA, CKD, and chronic disease follow trend of H/H holding anticoagulation (6) Hypertension: Qualifiers: Hypertension type: primary hypertension Qualified Code(s): I10 - Essential (primary) hypertension Code(s): I10 - Essential (primary) hypertension Status: Chronic Assessment and Plan: fluctuating hemodynamics noted appears stable at this time (7) Chronic obstructive pulmonary disease: Code(s): J44.9 - Chronic obstructive pulmonary disease, unspecified Status: Acute Assessment and Plan: known history complicates current respiratory issues continues supplemental oxygen on bronchodilators (8) Generalized weakness: Code(s): R53.1 - Weakness Status: Acute Assessment and Plan: due to acute illness (UTI + sepsis + bacteremia) PT/OT as tolerated (9) Diabetes mellitus with chronic kidney disease: Code(s): E11.22 - Type 2 diabetes mellitus with diabetic chronic kidney disease Status: Chronic Assessment and Plan: follow accu-cheks glycemic control per hospitalist Will continue to follow. Subjective Date/time seen: 09/12/23 09:12 Interval history: Follow-up for acute kidney injury/acute renal failure on chronic kidney disease. Continues to make slow and steady improvement -- shortness of breath/respiratory status has been improving in the last 24 - 48 hours; no other acute complaints voiced at the time of my visit; good urine output noted with IV diuretics with ongoing improvement in renal function/creatinine. Exam Narrative: General: elderly but large female in NAD Heart: normal S1 and S2; no rub Lungs: coarse breath sounds; decreased at bases Abdomen: soft, nontender, nondistended, positive bowel sounds Extremities: no cyanosis or clubbing; 1+ edema Skin: no rash; bruising noted Objective Data Vital Signs Vital Signs: Vital Signs Temp Pulse Resp BP Pulse Ox O2 Del Method O2 Flow Rate 09/12/23 08:39 77 [id number]
--- NOTE | 2023-09-12 09:12 | P.PNNP_ITS ---
Progress Note: A&P Assessment and Plan (1) NESHA (acute kidney injury): Code(s): N17.9 - Acute kidney failure, unspecified Status: Acute Assessment and Plan: * as noted on admission * ongoing improvement noted * evaluation to date noted: * urine electrolytes pre renal * renal ultrasound is negative * CK is a little elevated but not enough to cause kidney problems * urine eosinophils negative * moderate proteinuria * suspect NESHA multifactorial: * hypotension/hemodynamic instability * infection/sepsis (bacteremia) * prerenal azotemia (from pulmonary HTN) * good urine output with IV diuretics * follow trend of repeat labs (2) Stage 3b chronic kidney disease: Code(s): N18.32 - Chronic kidney disease, stage 3b Status: Chronic Assessment and Plan: * creatinine seems to run ~ 1.5 - 1.8mg/dl * due to HTN, DM, vascular disease and age-related change * follows with Dr. Montoya for management of CKD (3) Severe sepsis: Code(s): A41.9 - Sepsis, unspecified organism; R65.20 - Severe sepsis without septic shock Status: Acute Assessment and Plan: * as noted by lactic acidosis and hypotension on presentation * better hemodynamics noted * due to urosepsis -- blood and urine culture with E. coli * on IV antibiotics * follow repeat cultures (4) Hyperkalemia: Code(s): E87.5 - Hyperkalemia Status: Acute Assessment and Plan: * resolving/resolved * due to acute on chronic kidney disease * follow trend of repeat K+ levels (5) Anemia: Qualifiers: Anemia type: due to chronic kidney disease Chronic kidney disease stage: stage 4 (severe) Qualified Code(s): N18.4 - Chronic kidney disease, stage 4 (severe); D63.1 - Anemia in chronic kidney disease Code(s): D64.9 - Anemia, unspecified Status: Acute Assessment and Plan: * s/p PRBC transfusion (on 09/08) * presumably due to acute illness, NESHA, CKD, and chronic disease * follow trend of H/H * holding anticoagulation (6) Hypertension: Qualifiers: Hypertension type: primary hypertension Qualified Code(s): I10 - Essential (primary) hypertension Code(s): I10 - Essential (primary) hypertension Status: Chronic Assessment and Plan: * fluctuating hemodynamics noted * appears stable at this time (7) Chronic obstructive pulmonary disease: Code(s): J44.9 - Chronic obstructive pulmonary disease, unspecified Status: Acute Assessment and Plan: * known history * complicates current respiratory issues * continues supplemental oxygen * on bronchodilators (8) Generalized weakness: Code(s): R53.1 - Weakness Status: Acute Assessment and Plan: * due to acute illness (UTI + sepsis + bacteremia) * PT/OT as tolerated (9) Diabetes mellitus with chronic kidney disease: Code(s): E11.22 - Type 2 diabetes mellitus with diabetic chronic kidney disease Status: Chronic Assessment and Plan: * follow accu-cheks * glycemic control per hospitalist Will continue to follow. Subjective Date/time seen: 09/12/23 09:12 Interval history: Follow-up for acute kidney injury/acute renal failure on chronic kidney disease. Continues to make slow and steady improvement -- shortness of breath/respiratory status has been improving in the last 24 - 48 hours; no other acute complaints voiced at the time of my visit; good urine output noted with IV diuretics with
[2023-09-12] MEDS: POTASSIUM CHLORIDE 20 MEQ PACKET (FOR LIQUID) 40 MEQ PO (09:49)
[2023-09-12] MEDS: rOPINIRole HCL 0.25 MG TABLET PO (09:50)
[2023-09-12] MEDS: MAGNESIUM SULF 2 GM/WATER 50ML 2 GM/50 ML BAG IVPB (09:50)
[2023-09-12] MEDS: POTASSIUM CHLORIDE 20 MEQ PACKET (FOR LIQUID) PO (10:01)
[2023-09-12 11:26] LABS: Glucose Point of Care 188 mg/dl (65-105)
--- NOTE | 2023-09-12 11:55 | PM.IMPN ---
Progress Note: A&P Assessment and Plan (1) Severe sepsis: Code(s): A41.9 - Sepsis, unspecified organism; R65.20 - Severe sepsis without septic shock Status: Acute Assessment and Plan: Patient presents with severe sepsis with hypotension. lactic acidosis likely related to E coli UTI and bacteremia Patient was adequately fluid-resuscitated Lactic acid has normalized -09/04: Blood cultures growing ESBL E coli -09/04: Urine cultures growing ESBL E coli -09/06: ceftriaxone discontinue, meropenem started 09/06 Renal US showing no acute findings. -09/07: Repeat blood cultures growing ESBL E coli WBC peaked at 22K but now stable at 14-16K range. -09/09: Repeat blood cultures NGTD Continue Meropenem. (2) Acute UTI: Code(s): N39.0 - Urinary tract infection, site not specified Status: Acute Assessment and Plan: UA is consistent with UTI. UCx collected. Rocephin started. UCx growing ESBL E coli. Antibiotics adjusted (3) Acute kidney injury superimposed on CKD: Code(s): N17.9 - Acute kidney failure, unspecified; N18.9 - Chronic kidney disease, unspecified Status: Acute Assessment and Plan: Acute on chronic kidney disease related to hypotensive, infection and severe sepsis CKD related to DM and HTN with baseline Cr 1.40-1.80 She also has a history of CHF with precerved EF Cr climbed to 3.4. She was adequately fluid-resuscitated Nephrology was consulted Urine lytes consistent with prerenal etilogy; urine eosinophils were negative, CK level mildly elevated at 254 CT scan of the abdomen and pelvis showing no hydronephrosis Renal ultrasound showing no stones, masses or hydronephrosis 09/08: Patient was started on Bumex 2 mg IV b.i.d., had excellent urine output Bumex dose decreased. BUN/creatinine improving with Cr down to 1.9 today Continue to monitor urine output, electrolytes and renal function (4) Hyperkalemia: Code(s): E87.5 - Hyperkalemia Status: Acute Assessment and Plan: Patient with hyperkalemia (6.4) likely related to acute on chronic kidney disease Potassium was treated appropriately with improvement. Potassium again 6.4 on 09/07 Potassium again treat appropriately. Potassium has normalized Potassium low again this morning. Continue to replace. Continue to monitor. (5) Atrial fibrillation: Code(s): I48.91 - Unspecified atrial fibrillation Status: Chronic Assessment and Plan: EKG showed atrial fibrillation with slow ventricular response and incomplete right bundle branch block -could be related to hyperkalemia Troponin elevated to 0.76. Cardiology consulted and appreciate their evaluation and recommendations Echo showing normal LV size with mild concentric LVH and normal systolic function with mild valvular disease. 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 Bradycardia and hypotension have improved Continue to follow on telemetry (6) Chronic obstructive pulmonary disease: Code(s): J44.9 - Chronic obstructive pulmonary disease, unspecified Status: Acute Assessment and Plan: Patient has a history of COPD and is on 3 L oxygen at night. She is intolerant to noninvasive ventilation for her sleep apnea Continue Advair. Continue bronchodilators (7) Diabetes mellitus with chronic kidney disease: Code(s): E11.22 - Type 2 diabetes mellitus with diabetic chronic kidney disease Status: Chronic Assessment and Plan: History of diabetes with neuropathy and chronic kidney disease The patient's blood glucose was reviewed on 09/11 Glucose remains well controlled. Continue AccuCheks covering with sliding scale. Hypoglycemia protocol available as needed. Continue to monitor (8) Generalized weakness: Code(s): R53.1 - Weakness Status: Acute Assessment and Plan: Generalized weakness related to bacteremia and UTI PT/OT
[2023-09-12 12:46] LABS: Potassium 3.7 mmol/L (3.4-5.0)
[2023-09-12] MEDS: ALPRAZolam (*CRX) 0.5 MG TABLET PO ×2 (16:02→21:15)
[2023-09-12 16:11] LABS: Glucose Point of Care 147 mg/dl (65-105)
--- NOTE | 2023-09-12 18:16 | PC.NURSE ---
This patient, Jenni Rondon, was transferred to [facility] [place] on 09/12/23 at 1810. Personal belongings sent with patient. Report given to Rose Marie. Appropriate documentation sent with patient.
--- NOTE | 2023-09-12 18:30 | PC.NURSE ---
This patient, Jenni Rondon, was received from [ICU-6] on 09/12/23 at 1805. Patient/family oriented to unit policies and routines. Report received from KODI Cordova
[2023-09-12 20:07] LABS: Glucose Point of Care 143 mg/dl (65-105)
[2023-09-12] MEDS: rOPINIRole HCL 0.5 MG TABLET PO (21:15)
[2023-09-12] MEDS: PRAZOSIN HCL 5 MG CAPSULE PO (21:15)
[2023-09-12] MEDS: PANTOPRAZOLE 40 MG TABLET PO (21:16)
[2023-09-13] VITALS (15 sets, daily range): BP systolic 123–148; BP diastolic 47–78; PULSE 63–92; RESP 16–24; TEMP 36.4–37.1; O2SAT 95–100
[2023-09-13] MEDS: IPRATROPIUM 0.5 MG/ALBUTEROL SULFATE 2.5 MG AMPUL.NEB 3 ML INHALATION ×3 (01:27→20:56)
[2023-09-13 04:01] LABS: Basophils Percent Auto 0.4 % (0.2-1.2); Eosinophils Absolute Auto 1.5 K/mm3 (0-0.3); Eosinophils Percent Auto 13.6 % (0-4.4); Hematocrit 25.6 % (37.0-47.0); Immature Granulocyte Absolute 0.31 K/mm3 (0.00-0.031); Immature Granulocyte Percent A 2.8 % (0-0.5); Lymphocytes Absolute Auto 0.69 K/mm3 (0.9-3.2); Lymphocytes Percent Auto 6.1 % (18.3-44.2); Mean Corpuscular HGB Conc 31.3 g/dl (32-36); Mean Corpuscular Hemoglobin 30.3 pg (26-34); Mean Platelet Volume 11.6 fl (7.4-10.4); Monocytes Absolute Auto 1.2 K/mm3 (0.1-0.6); Neutrophils Absolute Auto 7.4 K/mm3 (1.3-6.7); Neutrophils Percent Auto 66.1 % (45.5-73.1); Platelet Count Result 210 k/mm3 (150-375); Red Blood Count 2.64 M/mm3 (4.2-5.4); White Blood Count 11.2 K/mm3 (4.5-10.0)
[2023-09-13 04:09] LABS: INR 1.2; Lactic Acid Reflex 0.6 mmol/L (0.7-2.0); Prothrombin Time 15.5 Seconds (11.1-14.7)
[2023-09-13 04:10] LABS: Partial Thromboplastin Time 30.8 Seconds (22.3-36.8)
[2023-09-13 04:15] LABS: Alanine Aminotransferase 170 U/L (6-35); Albumin Level 3.7 g/dL (3.5-5.1); Alkaline Phosphatase 159 U/L (38-126); Anion Gap 11 mmol/L (4-12); Aspartate Amino Transferase 152 U/L (14-36); Bilirubin,Total 0.8 mg/dL (0.2-1.3); Blood Urea Nitrogen 54 mg/dL (7-17); Calcium 8.7 mg/dL (8.4-10.2); Carbon Dioxide 36 mmol/L (22-30); Chloride 86 mmol/L (98-107); Estimated CRCL calculation 35 ml/min; Estimated Glomerular Filt Rate 29; Glucose 122 mg/dL (65-110); Magnesium 1.9 mg/dL (1.6-2.3); Phosphorus 3.6 mg/dL (2.5-4.5); Potassium 3.4 mmol/L (3.4-5.0); Sodium 133 mmol/L (137-145)
[2023-09-13 06:56] LABS: Glucose Point of Care 133 mg/dl (65-105)
[2023-09-13] MEDS: CARBIDOPA/LEVODOPA 25/100 MG TABLET 3 TABLET PO ×3 (08:51→16:20)
[2023-09-13] MEDS: PRIMIDONE 50 MG TABLET PO ×2 (08:51→21:38)
[2023-09-13] MEDS: GABAPENTIN 100 MG CAPSULE PO ×3 (08:51→16:20)
[2023-09-13] MEDS: amLODIPine BESYLATE 2.5 MG TABLET PO (08:51)
[2023-09-13] MEDS: FLUoxetine HCL 20 MG CAPSULE 40 MG PO ×2 (08:51→21:27)
[2023-09-13] MEDS: ALPRAZolam (*CRX) 0.5 MG TABLET PO ×2 (08:52→21:41)
[2023-09-13] MEDS: PANTOPRAZOLE 40 MG TABLET PO ×2 (08:52→21:27)
[2023-09-13] MEDS: allopurinoL 100 MG TABLET PO (08:52)
[2023-09-13] MEDS: INSULIN GLARGINE (*BKC) 100 UNITS/ML 10 UNITS SUB-Q (08:52)
[2023-09-13] MEDS: BUMETANIDE INJ 1 MG/4 ML VIAL IV PUSH ×2 (08:52→16:20)
[2023-09-13] MEDS: polyethylene glycoL 3350 17 GM POWD.PACK PO (09:02)
[2023-09-13] MEDS: TOLNAFTATE 1% POWDER 45 GM BTL 1 APPLIC TOPICAL ×2 (09:06→21:30)
[2023-09-13] MEDS: POTASSIUM CHLORIDE 20 MEQ PACKET (FOR LIQUID) 40 MEQ PO (09:06)
[2023-09-13] MEDS: MEROPENEM 1 GM/NS 100 ML 1 GM/100 ML BAG IVPB ×2 (09:06→21:28)
--- NOTE | 2023-09-13 10:08 | P.PNNP_ITS ---
Progress Note: A&P Assessment and Plan (1) NESHA (acute kidney injury): Code(s): N17.9 - Acute kidney failure, unspecified Status: Acute Assessment and Plan: * as noted on admission * ongoing improvement noted (seems to be back to baseline) * evaluation to date noted: * urine electrolytes pre renal * renal ultrasound is negative * CK is a little elevated but not enough to cause kidney problems * urine eosinophils negative * moderate proteinuria * suspect NESHA multifactorial: * hypotension/hemodynamic instability * infection/sepsis (bacteremia) * prerenal azotemia (from pulmonary HTN) * good urine output with IV diuretics * follow trend of repeat labs (2) Stage 3b chronic kidney disease: Code(s): N18.32 - Chronic kidney disease, stage 3b Status: Chronic Assessment and Plan: * creatinine seems to run ~ 1.5 - 1.8mg/dl * due to HTN, DM, vascular disease and age-related change * follows with Dr. Montoya for management of CKD (3) Severe sepsis: Code(s): A41.9 - Sepsis, unspecified organism; R65.20 - Severe sepsis without septic shock Status: Acute Assessment and Plan: * improving * as noted by lactic acidosis and hypotension on presentation * better hemodynamics noted * due to urosepsis -- blood and urine culture with E. coli * on IV antibiotics * follow repeat cultures (4) Hyperkalemia: Code(s): E87.5 - Hyperkalemia Status: Acute Assessment and Plan: * resolving/resolved * due to acute on chronic kidney disease * follow trend of repeat K+ levels (5) Anemia: Qualifiers: Anemia type: due to chronic kidney disease Chronic kidney disease stage : stage 4 (severe) Qualified Code(s): N18.4 - Chronic kidney disease, stage 4 (severe); D63.1 - Anemia in chronic kidney disease Code(s): D64.9 - Anemia, unspecified Status: Acute Assessment and Plan: * s/p PRBC transfusion (on 09/08) * presumably due to acute illness, NESHA, CKD, and chronic disease * follow trend of H/H * holding anticoagulation (6) Hypertension: Qualifiers: Hypertension type: primary hypertension Qualified Code(s): I10 - Essential (primary) hypertension Code(s): I10 - Essential (primary) hypertension Status: Chronic Assessment and Plan: * fluctuating hemodynamics noted * appears stable at this time (7) Chronic obstructive pulmonary disease: Code(s): J44.9 - Chronic obstructive pulmonary disease, unspecified Status: Acute Assessment and Plan: * known history * complicates current respiratory issues * continues supplemental oxygen * on bronchodilators (8) Generalized weakness: Code(s): R53.1 - Weakness Status: Acute Assessment and Plan: * due to acute illness (UTI + sepsis + bacteremia) * PT/OT as tolerated (9) Diabetes mellitus with chronic kidney disease: Code(s): E11.22 - Type 2 diabetes mellitus with diabetic chronic kidney disease Status: Chronic Assessment and Plan: * follow accu-cheks * glycemic control per hospitalist Will continue to follow. Subjective Date/time seen: 09/13/23 10:08 Interval history: Follow-up for acute kidney injury/acute renal failure on chronic kidney disease. Transferred out of ICU; renal function/creatinine continues to improve in spite of IV diuretics with good urine output noted; breathing/respiratory statu slowly getting better as well; complaini
--- NOTE | 2023-09-13 10:08 | PM.PNNEP ---
Progress Note: A&P Assessment and Plan (1) NESHA (acute kidney injury): Code(s): N17.9 - Acute kidney failure, unspecified Status: Acute Assessment and Plan: as noted on admission ongoing improvement noted (seems to be back to baseline) evaluation to date noted: urine electrolytes pre renal renal ultrasound is negative CK is a little elevated but not enough to cause kidney problems urine eosinophils negative moderate proteinuria suspect NESHA multifactorial: hypotension/hemodynamic instability infection/sepsis (bacteremia) prerenal azotemia (from pulmonary HTN) good urine output with IV diuretics follow trend of repeat labs (2) Stage 3b chronic kidney disease: Code(s): N18.32 - Chronic kidney disease, stage 3b Status: Chronic Assessment and Plan: creatinine seems to run ~ 1.5 - 1.8mg/dl due to HTN, DM, vascular disease and age-related change follows with Dr. Montoya for management of CKD (3) Severe sepsis: Code(s): A41.9 - Sepsis, unspecified organism; R65.20 - Severe sepsis without septic shock Status: Acute Assessment and Plan: improving as noted by lactic acidosis and hypotension on presentation better hemodynamics noted due to urosepsis -- blood and urine culture with E. coli on IV antibiotics follow repeat cultures (4) Hyperkalemia: Code(s): E87.5 - Hyperkalemia Status: Acute Assessment and Plan: resolving/resolved due to acute on chronic kidney disease follow trend of repeat K+ levels (5) Anemia: Qualifiers: Anemia type: due to chronic kidney disease Chronic kidney disease stage: stage 4 (severe) Qualified Code(s): N18.4 - Chronic kidney disease, stage 4 (severe); D63.1 - Anemia in chronic kidney disease Code(s): D64.9 - Anemia, unspecified Status: Acute Assessment and Plan: s/p PRBC transfusion (on 09/08) presumably due to acute illness, NESHA, CKD, and chronic disease follow trend of H/H holding anticoagulation (6) Hypertension: Qualifiers: Hypertension type: primary hypertension Qualified Code(s): I10 - Essential (primary) hypertension Code(s): I10 - Essential (primary) hypertension Status: Chronic Assessment and Plan: fluctuating hemodynamics noted appears stable at this time (7) Chronic obstructive pulmonary disease: Code(s): J44.9 - Chronic obstructive pulmonary disease, unspecified Status: Acute Assessment and Plan: known history complicates current respiratory issues continues supplemental oxygen on bronchodilators (8) Generalized weakness: Code(s): R53.1 - Weakness Status: Acute Assessment and Plan: due to acute illness (UTI + sepsis + bacteremia) PT/OT as tolerated (9) Diabetes mellitus with chronic kidney disease: Code(s): E11.22 - Type 2 diabetes mellitus with diabetic chronic kidney disease Status: Chronic Assessment and Plan: follow accu-cheks glycemic control per hospitalist Will continue to follow. Subjective Date/time seen: 09/13/23 10:08 Interval history: Follow-up for acute kidney injury/acute renal failure on chronic kidney disease. Transferred out of ICU; renal function/creatinine continues to improve in spite of IV diuretics with good urine output noted; breathing/respiratory statu slowly getting better as well; complaining of abdominal bloating that she is attributing to constipation; no other acute complaints voiced. Exam Narrative: General: elderly but large female in NAD Heart: normal S1 and S2; no rub Lungs: coarse breath sounds; decreased at bases Abdomen: soft, nontender, nondistended, positive bowel sounds Extremities: no cyanosis or clubbing; 1+ edema Skin: no nodules; some bruising noted Objective Data Vital Signs Vital Signs: Vital Signs Temp Pulse Resp BP Pulse Ox O2 Del Met
--- NOTE | 2023-09-13 10:22 | PCNWS ---
Weekly nutritional screen. Patient is tolerating current Diabetic consistent carn diet with adequate intake. 50-80%. Refused supplement. No weight loss reported. No nutritional needs at this time.
[2023-09-13 12:06] LABS: Glucose Point of Care 137 mg/dl (65-105)
--- NOTE | 2023-09-13 13:20 | PC.NURSE ---
Pt complaining of burning sensation at urethra. De La Cruz catheter in place. Not a chronic De La Cruz catheter. Pt also complaining of constipation. Pt had received miralax this AM as well as drank several cups of prune juice. Pt trying to have a bowel movement, stated I haven't pooped in a week. Stool is at the rectum. Hard, firm, and pt is unable to continue pushing to get stool out. Updated Dr. Giles on situation. New order to d/c catheter and for a soap suds enema.
--- NOTE | 2023-09-13 14:46 | PM.IMPN ---
Progress Note: A&P Assessment and Plan (1) Severe sepsis: Code(s): A41.9 - Sepsis, unspecified organism; R65.20 - Severe sepsis without septic shock Status: Acute Assessment and Plan: Patient presents with severe sepsis with hypotension. lactic acidosis likely related to E coli UTI and bacteremia Patient was adequately fluid-resuscitated Lactic acid has normalized -09/04: Blood cultures with 2 sets growing ESBL E coli -09/04: Urine cultures growing ESBL E coli -09/06: ceftriaxone discontinue, meropenem started 09/06 Renal US showing no acute findings. -09/07: Repeat blood cultures with 2 sets growing ESBL E coli -09/09: Repeat blood cultures with 1 set growing E coli WBC peaked at 22K but has dropped to 11K range. Continue Meropenem. Repeat CT A/P to exclude abscess. (2) Acute UTI: Code(s): N39.0 - Urinary tract infection, site not specified Status: Acute Assessment and Plan: UA is consistent with UTI. UCx collected. Rocephin started. UCx growing ESBL E coli. As above (3) Acute kidney injury superimposed on CKD: Code(s): N17.9 - Acute kidney failure, unspecified; N18.9 - Chronic kidney disease, unspecified Status: Acute Assessment and Plan: Acute on chronic kidney disease related to hypotensive, infection and severe sepsis CKD related to DM and HTN with baseline Cr 1.40-1.80 She also has a history of CHF with preserved EF Cr climbed to 3.4. She was adequately fluid-resuscitated Nephrology was consulted Urine lytes consistent with prerenal etiology; urine eosinophils were negative, CK level mildly elevated at 254 CT scan of the abdomen and pelvis showing no hydronephrosis Renal ultrasound showing no stones, masses or hydronephrosis 09/08: Patient was started on Bumex 2 mg IV b.i.d., had excellent urine output Bumex dose decreased. BUN/creatinine improving with Cr down to 1.7 today Continue to monitor urine output, electrolytes and renal function (4) Hyperkalemia: Code(s): E87.5 - Hyperkalemia Status: Acute Assessment and Plan: Patient with hyperkalemia (6.4) likely related to acute on chronic kidney disease Potassium was treated appropriately with improvement. Potassium again 6.4 on 09/07 Potassium again treat appropriately. Potassium has normalized Potassium low normal again this morning. Continue to replace. Continue to monitor. (5) Atrial fibrillation: Code(s): I48.91 - Unspecified atrial fibrillation Status: Chronic Assessment and Plan: EKG showed atrial fibrillation with slow ventricular response and incomplete right bundle branch block -could be related to hyperkalemia Troponin elevated to 0.76. Cardiology consulted and appreciate their evaluation and recommendations Echo showing normal LV size with mild concentric LVH and normal systolic function with mild valvular disease. 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 Bradycardia and hypotension have improved Continue to follow on telemetry (6) Chronic obstructive pulmonary disease: Code(s): J44.9 - Chronic obstructive pulmonary disease, unspecified Status: Acute Assessment and Plan: Patient has a history of COPD and is on 2L at rest, 3 L with exertion and at night. She is intolerant to noninvasive ventilation for her sleep apnea Continue Advair. Continue bronchodilators (7) Diabetes mellitus with chronic kidney disease: Code(s): E11.22 - Type 2 diabetes mellitus with diabetic chronic kidney disease Status: Chronic Assessment and Plan: History of diabetes with neuropathy and chronic kidney disease The patient's blood glucose was reviewed on 09/12 Glucose remains well controlled. Continue AccuCheks covering with sliding scale. Hypoglycemia protocol available as needed. Continue to monitor (8) Generalized weakness: Code(s): R53.1 - Weakness Statu
--- NOTE | 2023-09-13 15:11 | PCOTNOTE ---
Attempted to see Patient this P.M. Patient sleeping upon entering room. Easily aroused and stated she had just finished having a massive bowel movement, is totally wiped out and declines treatment this afternoon.
[2023-09-13 16:46] LABS: Glucose Point of Care 199 mg/dl (65-105)
--- NOTE | 2023-09-13 17:06 | PC.NURSE ---
This patient, Jenni Rondon, was transferred to [[id number] ] on 09/13/23 at 1706. Personal belongings sent with patient. Report given to [KODI Mckeon @ [phone] ]. Appropriate documentation sent with patient.
--- NOTE | 2023-09-13 19:36 | PC.NURSE ---
This patient, Jenni Rondon, was received from IMU on 09/13/23 at 1706. Patient/family oriented to unit policies and routines
[2023-09-13 19:45] LABS: Glucose Point of Care 148 mg/dl (65-105)
[2023-09-13] MEDS: FLUTICASONE/SALMETEROL 115-21 MCG INHALER 1 PUFF 2 PUFF INHALATION (20:56)
[2023-09-13] MEDS: PRAZOSIN HCL 5 MG CAPSULE PO (21:27)
[2023-09-13] MEDS: APIXABAN 2.5 MG TABLET PO (21:28)
[2023-09-13] MEDS: DOXEPIN HCL 25 MG CAPSULE PO (21:28)
[2023-09-13] MEDS: rOPINIRole HCL 0.5 MG TABLET PO (21:38)
[2023-09-14] VITALS (12 sets, daily range): BP systolic 137–156; BP diastolic 48–59; PULSE 63–74; RESP 18–22; TEMP 36.3–37; O2SAT 94–100
[2023-09-14] MEDS: IPRATROPIUM 0.5 MG/ALBUTEROL SULFATE 2.5 MG AMPUL.NEB 3 ML INHALATION ×3 (02:45→20:14)
[2023-09-14 05:47] LABS: Basophils Percent Auto 0.4 % (0.2-1.2); Eosinophils Absolute Auto 1.7 K/mm3 (0-0.3); Eosinophils Percent Auto 16.2 % (0-4.4); Hematocrit 26.3 % (37.0-47.0); Immature Granulocyte Absolute 0.33 K/mm3 (0.00-0.031); Immature Granulocyte Percent A 3.2 % (0-0.5); Lymphocytes Absolute Auto 0.65 K/mm3 (0.9-3.2); Lymphocytes Percent Auto 6.2 % (18.3-44.2); Mean Corpuscular HGB Conc 30.4 g/dl (32-36); Mean Corpuscular Volume 98.5 fl (80-100); Mean Platelet Volume 11.6 fl (7.4-10.4); Monocytes Percent Auto 9.1 % (2.6-8.5); Neutrophils Absolute Auto 6.8 K/mm3 (1.3-6.7); Neutrophils Percent Auto 64.9 % (45.5-73.1); Platelet Count Result 233 k/mm3 (150-375); Red Blood Count 2.67 M/mm3 (4.2-5.4); Red Cell Distribution Width 18.8 % (11.5-14.5); White Blood Count 10.4 K/mm3 (4.5-10.0)
[2023-09-14 06:00] LABS: Alanine Aminotransferase 162 U/L (6-35); Albumin Level 3.7 g/dL (3.5-5.1); Alkaline Phosphatase 149 U/L (38-126); Anion Gap 9 mmol/L (4-12); Aspartate Amino Transferase 77 U/L (14-36); Bilirubin,Total 0.7 mg/dL (0.2-1.3); Blood Urea Nitrogen 44 mg/dL (7-17); Carbon Dioxide 38 mmol/L (22-30); Chloride 86 mmol/L (98-107); Estimated CRCL calculation 40 ml/min; Estimated Glomerular Filt Rate 34; Glucose 105 mg/dL (65-110); Magnesium 1.7 mg/dL (1.6-2.3); Phosphorus 3.6 mg/dL (2.5-4.5); Potassium 3.6 mmol/L (3.4-5.0); Sodium 133 mmol/L (137-145)
[2023-09-14] MEDS: FLUTICASONE/SALMETEROL 115-21 MCG INHALER 1 PUFF 2 PUFF INHALATION ×2 (07:23→20:14)
[2023-09-14 08:25] LABS: Glucose Point of Care 133 mg/dl (65-105)
[2023-09-14] MEDS: CARBIDOPA/LEVODOPA 25/100 MG TABLET 3 TABLET PO ×3 (09:09→17:04)
[2023-09-14] MEDS: PRIMIDONE 50 MG TABLET PO ×2 (09:10→20:59)
[2023-09-14] MEDS: FLUoxetine HCL 20 MG CAPSULE 40 MG PO ×2 (09:10→20:59)
[2023-09-14] MEDS: GABAPENTIN 100 MG CAPSULE PO ×3 (09:10→17:05)
[2023-09-14] MEDS: MEROPENEM 1 GM/NS 100 ML 1 GM/100 ML BAG IVPB ×2 (09:11→21:02)
[2023-09-14] MEDS: APIXABAN 2.5 MG TABLET PO ×2 (09:11→20:59)
[2023-09-14] MEDS: DOXEPIN HCL 25 MG CAPSULE PO ×2 (09:11→20:59)
[2023-09-14] MEDS: PANTOPRAZOLE 40 MG TABLET PO ×2 (09:11→20:59)
[2023-09-14] MEDS: allopurinoL 100 MG TABLET PO (09:11)
[2023-09-14] MEDS: amLODIPine BESYLATE 2.5 MG TABLET PO (09:11)
[2023-09-14] MEDS: INSULIN GLARGINE (*BKC) 100 UNITS/ML 10 UNITS SUB-Q (09:12)
[2023-09-14] MEDS: ALPRAZolam (*CRX) 0.5 MG TABLET PO ×2 (09:18→20:58)
[2023-09-14] MEDS: TOLNAFTATE 1% POWDER 45 GM BTL 1 APPLIC TOPICAL ×2 (09:44→21:30)
[2023-09-14] MEDS: acetaZOLAMIDE SODIUM FOR INJ 500 MG VIAL 250 MG IV PUSH (09:46)
[2023-09-14] MEDS: BUMETANIDE INJ 1 MG/4 ML VIAL IV PUSH ×2 (09:47→17:43)
--- NOTE | 2023-09-14 10:33 | PM.IMPN ---
Progress Note: A&P Assessment and Plan (1) Severe sepsis: Code(s): A41.9 - Sepsis, unspecified organism; R65.20 - Severe sepsis without septic shock Status: Acute Assessment and Plan: Patient presents with severe sepsis with hypotension. lactic acidosis likely related to E coli UTI and bacteremia Patient was adequately fluid-resuscitated Lactic acid has normalized -09/04: Blood cultures with 2 sets growing ESBL E coli -09/04: Urine cultures growing ESBL E coli -09/06: ceftriaxone discontinue, meropenem started 09/06 Renal US showing no acute findings. -09/07: Repeat blood cultures with 2 sets growing ESBL E coli -09/09: Repeat blood cultures with 1 set growing ESBL E coli WBC peaked at 22K but has dropped to 10.4K range. CT A/P 09/12 showing moderate right and small left pleural effusion, cortical thinning of the kidneys but no abscess or obstructing stones. 09/12 BCx pending Continue Meropenem. (2) Acute UTI: Code(s): N39.0 - Urinary tract infection, site not specified Status: Acute Assessment and Plan: UA is consistent with UTI. UCx collected. Rocephin started. UCx growing ESBL E coli. As above (3) Acute kidney injury superimposed on CKD: Code(s): N17.9 - Acute kidney failure, unspecified; N18.9 - Chronic kidney disease, unspecified Status: Acute Assessment and Plan: Acute on chronic kidney disease related to hypotensive, infection and severe sepsis CKD related to DM and HTN with baseline Cr 1.40-1.80 She also has a history of CHF with preserved EF Cr climbed to 3.4. She was adequately fluid-resuscitated Nephrology was consulted Urine lytes consistent with prerenal etiology; urine eosinophils were negative, CK level mildly elevated at 254 CT scan of the abdomen and pelvis showing no hydronephrosis Renal ultrasound showing no stones, masses or hydronephrosis 09/08: Patient was started on Bumex 2 mg IV b.i.d., had excellent urine output Bumex dose decreased. BUN/creatinine improving with Cr down to 1.5 today CXR yesterday showing minimal central congestive changes and mild bibasilar pulm edema. No effusions but were seen by CT Change to oral Bumex in 1-2 days. Continue to monitor urine output, electrolytes and renal function (4) Hyperkalemia: Code(s): E87.5 - Hyperkalemia Status: Acute Assessment and Plan: Patient with hyperkalemia (6.4) likely related to acute on chronic kidney disease Potassium was treated appropriately with improvement. Potassium again 6.4 on 09/07 High Potassium again treat appropriately. Potassium normalized then became low requiring replacement. Potassium normal today Continue to monitor. (5) Atrial fibrillation: Code(s): I48.91 - Unspecified atrial fibrillation Status: Chronic Assessment and Plan: EKG showed atrial fibrillation with slow ventricular response and incomplete right bundle branch block -could be related to hyperkalemia Troponin elevated to 0.76. Cardiology consulted and appreciate their evaluation and recommendations Echo showing normal LV size with mild concentric LVH and normal systolic function with mild valvular disease. 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 Bradycardia and hypotension have improved Eliquis resumed. Tele stopped. (6) Chronic obstructive pulmonary disease: Code(s): J44.9 - Chronic obstructive pulmonary disease, unspecified Status: Acute Assessment and Plan: Patient has a history of COPD and is on 2L at rest, 3 L with exertion and at night. She is intolerant to noninvasive ventilation for her sleep apnea Continue Advair. Continue bronchodilators (7) Diabetes mellitus with chronic kidney disease: Code(s): E11.22 - Type 2 diabetes mellitus with diabetic chronic kidney disease Status: Chronic Assessment and Plan: History of diabetes with neuropathy and chronic k
--- NOTE | 2023-09-14 10:47 | PM.PNNEP ---
Progress Note: A&P Assessment and Plan (1) NESHA (acute kidney injury): Code(s): N17.9 - Acute kidney failure, unspecified Status: Acute Assessment and Plan: as noted on admission ongoing improvement noted (seems to be back to baseline) evaluation to date noted: urine electrolytes pre renal renal ultrasound is negative CK is a little elevated but not enough to cause kidney problems urine eosinophils negative moderate proteinuria suspect NESHA multifactorial: hypotension/hemodynamic instability infection/sepsis (bacteremia) prerenal azotemia (from pulmonary HTN) good urine output with IV diuretics we may be reaching our limit with IV diuretics as noted by her rising CO2/contraction alkalosis will dose with acetazolamide to compensate consider switching to oral bumex in a day or two follow trend of repeat labs (2) Stage 3b chronic kidney disease: Code(s): N18.32 - Chronic kidney disease, stage 3b Status: Chronic Assessment and Plan: creatinine seems to run ~ 1.5 - 1.8mg/dl due to HTN, DM, vascular disease and age-related change follows with Dr. Montoya for management of CKD (3) Severe sepsis: Code(s): A41.9 - Sepsis, unspecified organism; R65.20 - Severe sepsis without septic shock Status: Acute Assessment and Plan: improving as noted by lactic acidosis and hypotension on presentation better hemodynamics noted due to urosepsis -- blood and urine culture with E. coli on IV antibiotics follow repeat cultures (4) Hyperkalemia: Code(s): E87.5 - Hyperkalemia Status: Acute Assessment and Plan: resolving/resolved due to acute on chronic kidney disease follow trend of repeat K+ levels (5) Anemia: Qualifiers: Anemia type: due to chronic kidney disease Chronic kidney disease stage: stage 4 (severe) Qualified Code(s): N18.4 - Chronic kidney disease, stage 4 (severe); D63.1 - Anemia in chronic kidney disease Code(s): D64.9 - Anemia, unspecified Status: Acute Assessment and Plan: s/p PRBC transfusion (on 09/08) presumably due to acute illness, NESHA, CKD, and chronic disease follow trend of H/H holding anticoagulation (6) Hypertension: Qualifiers: Hypertension type: primary hypertension Qualified Code(s): I10 - Essential (primary) hypertension Code(s): I10 - Essential (primary) hypertension Status: Chronic Assessment and Plan: fluctuating hemodynamics noted appears stable at this time (7) Chronic obstructive pulmonary disease: Code(s): J44.9 - Chronic obstructive pulmonary disease, unspecified Status: Acute Assessment and Plan: known history complicates current respiratory issues continues supplemental oxygen on bronchodilators (8) Generalized weakness: Code(s): R53.1 - Weakness Status: Acute Assessment and Plan: due to acute illness (UTI + sepsis + bacteremia) PT/OT as tolerated (9) Diabetes mellitus with chronic kidney disease: Code(s): E11.22 - Type 2 diabetes mellitus with diabetic chronic kidney disease Status: Chronic Assessment and Plan: follow accu-cheks glycemic control per hospitalist Will continue to follow. Subjective Date/time seen: 09/14/23 10:47 Interval history: Follow-up for acute kidney injury/acute renal failure on chronic kidney disease. Continue to make slow and steady improvement in general; renal function improving/stabilizing along with good urine output with IV diuretic therapy; breathing/respiratory also appears to be doing better as well (denies any shortness of breath this AM); no other issues/events overnight or earlier this morning. Exam Narrative: General: elderly but large female in NAD Heart: normal S1 and S2; no rub Lungs: clear anteriorly; decreased at bases Abdomen: soft, nontender, nondistended, positi
--- NOTE | 2023-09-14 10:47 | P.PNNP_ITS ---
Progress Note: A&P Assessment and Plan (1) NESHA (acute kidney injury): Code(s): N17.9 - Acute kidney failure, unspecified Status: Acute Assessment and Plan: * as noted on admission * ongoing improvement noted (seems to be back to baseline) * evaluation to date noted: * urine electrolytes pre renal * renal ultrasound is negative * CK is a little elevated but not enough to cause kidney problems * urine eosinophils negative * moderate proteinuria * suspect NESHA multifactorial: * hypotension/hemodynamic instability * infection/sepsis (bacteremia) * prerenal azotemia (from pulmonary HTN) * good urine output with IV diuretics * we may be reaching our limit with IV diuretics as noted by her rising CO2/contraction alkalosis * will dose with acetazolamide to compensate * consider switching to oral bumex in a day or two * follow trend of repeat labs (2) Stage 3b chronic kidney disease: Code(s): N18.32 - Chronic kidney disease, stage 3b Status: Chronic Assessment and Plan: * creatinine seems to run ~ 1.5 - 1.8mg/dl * due to HTN, DM, vascular disease and age-related change * follows with Dr. Montoya for management of CKD (3) Severe sepsis: Code(s): A41.9 - Sepsis, unspecified organism; R65.20 - Severe sepsis without septic shock Status: Acute Assessment and Plan: * improving * as noted by lactic acidosis and hypotension on presentation * better hemodynamics noted * due to urosepsis -- blood and urine culture with E. coli * on IV antibiotics * follow repeat cultures (4) Hyperkalemia: Code(s): E87.5 - Hyperkalemia Status: Acute Assessment and Plan: * resolving/resolved * due to acute on chronic kidney disease * follow trend of repeat K+ levels (5) Anemia: Qualifiers: Anemia type: due to chronic kidney disease Chronic kidney disease stage: stage 4 (severe) Qualified Code(s): N18.4 - Chronic kidney disease, stage 4 (severe); D63.1 - Anemia in chronic kidney disease Code(s): D64.9 - Anemia, unspecified Status: Acute Assessment and Plan: * s/p PRBC transfusion (on 09/08) * presumably due to acute illness, NESHA, CKD, and chronic disease * follow trend of H/H * holding anticoagulation (6) Hypertension: Qualifiers: Hypertension type: primary hypertension Qualified Code(s): I10 - Essential (primary) hypertension Code(s): I10 - Essential (primary) hypertension Status: Chronic Assessment and Plan: * fluctuating hemodynamics noted * appears stable at this time (7) Chronic obstructive pulmonary disease: Code(s): J44.9 - Chronic obstructive pulmonary disease, unspecified Status: Acute Assessment and Plan: * known history * complicates current respiratory issues * continues supplemental oxygen * on bronchodilators (8) Generalized weakness: Code(s): R53.1 - Weakness Status: Acute Assessment and Plan: * due to acute illness (UTI + sepsis + bacteremia) * PT/OT as tolerated (9) Diabetes mellitus with chronic kidney disease: Code(s): E11.22 - Type 2 diabetes mellitus with diabetic chronic kidney disease Status: Chronic Assessment and Plan: * follow accu-cheks * glycemic control per hospitalist Will continue to follow. Subjective Date/time seen: 09/14/23 10:47 Interval history: Follow-up for acute kidney injury/acute renal failure on chronic k
[2023-09-14 11:31] LABS: Glucose Point of Care 149 mg/dl (65-105)
[2023-09-14] MEDS: MAGNESIUM SULF 2 GM/WATER 50ML 2 GM/50 ML BAG IVPB (12:21)
--- NOTE | 2023-09-14 16:25 | PC.NURSE ---
On 09/14/23, the RESIDENCY PROGRAM COORDINATOR, Tammy, provided care and completed [facility] documentation on this patient. I have reviewed the RESIDENCY PROGRAM COORDINATOR's documentation and agree with the findings.
[2023-09-14 16:38] LABS: Glucose Point of Care 159 mg/dl (65-105)
[2023-09-14 20:09] LABS: Glucose Point of Care 139 mg/dl (65-105)
[2023-09-14] MEDS: rOPINIRole HCL 0.5 MG TABLET PO (20:58)
[2023-09-14] MEDS: PRAZOSIN HCL 5 MG CAPSULE PO (20:59)
[2023-09-15] VITALS (13 sets, daily range): BP systolic 132–139; BP diastolic 49–52; PULSE 56–72; RESP 18–20; TEMP 36.4–36.9; O2SAT 96–98
[2023-09-15] MEDS: IPRATROPIUM 0.5 MG/ALBUTEROL SULFATE 2.5 MG AMPUL.NEB 3 ML INHALATION ×4 (02:11→20:55)
[2023-09-15 05:56] LABS: Basophils Percent Auto 0.4 % (0.2-1.2); Eosinophils Absolute Auto 1.8 K/mm3 (0-0.3); Hematocrit 25.6 % (37.0-47.0); Hemoglobin 7.7 g/dL (12.0-15.0); Immature Granulocyte Absolute 0.17 K/mm3 (0.00-0.031); Immature Granulocyte Percent A 1.6 % (0-0.5); Lymphocytes Percent Auto 6.8 % (18.3-44.2); Mean Corpuscular HGB Conc 30.1 g/dl (32-36); Mean Corpuscular Hemoglobin 29.7 pg (26-34); Mean Corpuscular Volume 98.8 fl (80-100); Mean Platelet Volume 11.7 fl (7.4-10.4); Monocytes Absolute Auto 0.9 K/mm3 (0.1-0.6); Monocytes Percent Auto 8.7 % (2.6-8.5); Neutrophils Absolute Auto 6.8 K/mm3 (1.3-6.7); Neutrophils Percent Auto 65.5 % (45.5-73.1); Platelet Count Result 242 k/mm3 (150-375); Red Blood Count 2.59 M/mm3 (4.2-5.4); Red Cell Distribution Width 18.6 % (11.5-14.5); White Blood Count 10.4 K/mm3 (4.5-10.0)
[2023-09-15 06:09] LABS: Alanine Aminotransferase 120 U/L (6-35); Albumin Level 3.6 g/dL (3.5-5.1); Alkaline Phosphatase 145 U/L (38-126); Anion Gap 8 mmol/L (4-12); Aspartate Amino Transferase 50 U/L (14-36); Bilirubin,Total 0.6 mg/dL (0.2-1.3); Blood Urea Nitrogen 35 mg/dL (7-17); Calcium 8.7 mg/dL (8.4-10.2); Carbon Dioxide 35 mmol/L (22-30); Chloride 89 mmol/L (98-107); Estimated CRCL calculation 41 ml/min; Estimated Glomerular Filt Rate 37; Glucose 111 mg/dL (65-110); Magnesium 1.9 mg/dL (1.6-2.3); Potassium 3.6 mmol/L (3.4-5.0); Sodium 132 mmol/L (137-145)
[2023-09-15] MEDS: FLUTICASONE/SALMETEROL 115-21 MCG INHALER 1 PUFF 2 PUFF INHALATION ×2 (06:20→20:56)
[2023-09-15 07:43] LABS: Glucose Point of Care 123 mg/dl (65-105)
[2023-09-15] MEDS: DOXEPIN HCL 25 MG CAPSULE PO ×2 (08:39→20:41)
[2023-09-15] MEDS: FLUoxetine HCL 20 MG CAPSULE 40 MG PO ×2 (08:39→20:41)
[2023-09-15] MEDS: APIXABAN 2.5 MG TABLET PO ×2 (08:39→20:42)
[2023-09-15] MEDS: CARBIDOPA/LEVODOPA 25/100 MG TABLET 3 TABLET PO ×3 (08:39→16:49)
[2023-09-15] MEDS: PANTOPRAZOLE 40 MG TABLET PO ×2 (08:39→20:41)
[2023-09-15] MEDS: allopurinoL 100 MG TABLET PO (08:39)
[2023-09-15] MEDS: amLODIPine BESYLATE 2.5 MG TABLET PO (08:39)
[2023-09-15] MEDS: TOLNAFTATE 1% POWDER 45 GM BTL 1 APPLIC TOPICAL ×2 (08:39→20:45)
[2023-09-15] MEDS: PRIMIDONE 50 MG TABLET PO ×2 (08:39→20:41)
[2023-09-15] MEDS: GABAPENTIN 100 MG CAPSULE PO ×3 (08:39→16:49)
[2023-09-15] MEDS: INSULIN GLARGINE (*BKC) 100 UNITS/ML 10 UNITS SUB-Q (08:44)
[2023-09-15] MEDS: MEROPENEM 1 GM/NS 100 ML 1 GM/100 ML BAG IVPB ×2 (08:44→20:40)
[2023-09-15] MEDS: BUMETANIDE INJ 1 MG/4 ML VIAL IV PUSH (08:44)
[2023-09-15] MEDS: ALPRAZolam (*CRX) 0.5 MG TABLET PO ×2 (08:49→20:42)
[2023-09-15 11:21] LABS: Glucose Point of Care 225 mg/dl (65-105)
[2023-09-15] MEDS: INSULIN ASPART (*BKC) 100 UNITS/ML SUB-Q (12:07)
--- NOTE | 2023-09-15 13:43 | PM.IMPN ---
Progress Note: A&P Assessment and Plan (1) Severe sepsis: Code(s): A41.9 - Sepsis, unspecified organism; R65.20 - Severe sepsis without septic shock Status: Acute Assessment and Plan: Patient presents with severe sepsis with hypotension. lactic acidosis likely related to E coli UTI and bacteremia Patient was adequately fluid-resuscitated Lactic acid has normalized -09/04: Blood cultures with 2 sets growing ESBL E coli -09/04: Urine cultures growing ESBL E coli -09/06: ceftriaxone discontinue, meropenem started 09/06 Renal US showing no acute findings. -09/07: Repeat blood cultures with 2 sets growing ESBL E coli -09/09: Repeat blood cultures with 1 set growing ESBL E coli (took about 3 days to register positive) WBC peaked at 22K but has dropped to 10.4K range. CT A/P 09/12 showing moderate right and small left pleural effusion, cortical thinning of the kidneys but no abscess or obstructing stones. 09/12 BCx NGTD Continue Meropenem but narrow to ertapenem once BCx remain negative for 3 days. Will need midline. (2) Acute UTI: Code(s): N39.0 - Urinary tract infection, site not specified Status: Acute Assessment and Plan: UA is consistent with UTI. UCx collected. Rocephin started. UCx growing ESBL E coli. As above (3) Acute kidney injury superimposed on CKD: Code(s): N17.9 - Acute kidney failure, unspecified; N18.9 - Chronic kidney disease, unspecified Status: Acute Assessment and Plan: Acute on chronic kidney disease related to hypotensive, infection and severe sepsis CKD related to DM and HTN with baseline Cr 1.40-1.80 She also has a history of CHF with preserved EF Cr climbed to 3.4. She was adequately fluid-resuscitated Nephrology was consulted Urine lytes consistent with prerenal etiology; urine eosinophils were negative, CK level mildly elevated at 254 CT scan of the abdomen and pelvis showing no hydronephrosis Renal ultrasound showing no stones, masses or hydronephrosis 09/08: Patient was started on Bumex 2 mg IV b.i.d., had excellent urine output Bumex IV dose decreased. BUN/creatinine improving with Cr down to 1.4 today CXR 09/12 showing minimal central congestive changes and mild bibasilar pulm edema. No effusions but were seen by CT Change to oral Bumex today Continue to monitor urine output, electrolytes and renal function (4) Hyperkalemia: Code(s): E87.5 - Hyperkalemia Status: Acute Assessment and Plan: Patient with hyperkalemia (6.4) likely related to acute on chronic kidney disease Potassium was treated appropriately with improvement. Potassium again 6.4 on 09/07 High Potassium again treat appropriately. Potassium normalized then became low requiring replacement. Potassium normal today Continue to monitor. (5) Atrial fibrillation: Code(s): I48.91 - Unspecified atrial fibrillation Status: Chronic Assessment and Plan: EKG showed atrial fibrillation with slow ventricular response and incomplete right bundle branch block -could be related to hyperkalemia Troponin elevated to 0.76. Cardiology consulted and appreciate their evaluation and recommendations Echo showing normal LV size with mild concentric LVH and normal systolic function with mild valvular disease. 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 Bradycardia and hypotension have improved Eliquis resumed. Tele stopped. Add back Amiodarone. (6) Chronic obstructive pulmonary disease: Code(s): J44.9 - Chronic obstructive pulmonary disease, unspecified Status: Acute Assessment and Plan: Patient has a history of COPD and is on 2L at rest, 3 L with exertion and at night. She is intolerant to noninvasive ventilation for her sleep apnea Continue Advair. Continue bronchodilators (7) Diabetes mellitus with chronic kidney disease: Code(s): E11.22 - Type 2 diabetes mellitus with diab
--- NOTE | 2023-09-15 14:06 | PM.PNNEP ---
Progress Note: A&P Assessment and Plan (1) NESHA (acute kidney injury): Code(s): N17.9 - Acute kidney failure, unspecified Status: Acute Assessment and Plan: as noted on admission ongoing improvement noted (seems to be back to baseline) evaluation to date noted: urine electrolytes pre renal renal ultrasound is negative CK is a little elevated but not enough to cause kidney problems urine eosinophils negative moderate proteinuria suspect NESHA multifactorial: hypotension/hemodynamic instability infection/sepsis (bacteremia) prerenal azotemia (from pulmonary HTN) good urine output with IV diuretics we may be reaching our limit with IV diuretics as noted by her rising CO2/contraction alkalosis will dose with oral acetazolamide to compensate switching to oral bumex today follow trend of repeat labs (2) Stage 3b chronic kidney disease: Code(s): N18.32 - Chronic kidney disease, stage 3b Status: Chronic Assessment and Plan: creatinine seems to run ~ 1.5 - 1.8mg/dl due to HTN, DM, vascular disease and age-related change follows with Dr. Montoya for management of CKD (3) Severe sepsis: Code(s): A41.9 - Sepsis, unspecified organism; R65.20 - Severe sepsis without septic shock Status: Acute Assessment and Plan: improving as noted by lactic acidosis and hypotension on presentation better hemodynamics noted due to urosepsis -- blood and urine culture with E. coli on IV antibiotics follow repeat cultures (4) Hyperkalemia: Code(s): E87.5 - Hyperkalemia Status: Acute Assessment and Plan: resolving/resolved due to acute on chronic kidney disease follow trend of repeat K+ levels (5) Anemia: Qualifiers: Anemia type: due to chronic kidney disease Chronic kidney disease stage: stage 4 (severe) Qualified Code(s): N18.4 - Chronic kidney disease, stage 4 (severe); D63.1 - Anemia in chronic kidney disease Code(s): D64.9 - Anemia, unspecified Status: Acute Assessment and Plan: s/p PRBC transfusion (on 09/08) presumably due to acute illness, NESHA, CKD, and chronic disease follow trend of H/H holding anticoagulation (6) Hypertension: Qualifiers: Hypertension type: primary hypertension Qualified Code(s): I10 - Essential (primary) hypertension Code(s): I10 - Essential (primary) hypertension Status: Chronic Assessment and Plan: fluctuating hemodynamics noted appears stable at this time (7) Chronic obstructive pulmonary disease: Code(s): J44.9 - Chronic obstructive pulmonary disease, unspecified Status: Acute Assessment and Plan: known history complicates current respiratory issues continues supplemental oxygen on bronchodilators (8) Generalized weakness: Code(s): R53.1 - Weakness Status: Acute Assessment and Plan: due to acute illness (UTI + sepsis + bacteremia) PT/OT as tolerated (9) Diabetes mellitus with chronic kidney disease: Code(s): E11.22 - Type 2 diabetes mellitus with diabetic chronic kidney disease Status: Chronic Assessment and Plan: follow accu-cheks glycemic control per hospitalist Will continue to follow. Subjective Date/time seen: 09/15/23 14:06 Interval history: Follow-up for acute kidney injury/acute renal failure on chronic kidney disease. Feels reasonably well at the time of my visit; renal function/creatinine stable if not better than baseline with good urine output noted; major complaint is that of her restless leg symptoms; otherwise, states she feels pretty good when seen; at bedside and concurs that she doing pretty good as well. Exam Narrative: General: elderly but large female in NAD Heart: normal S1 and S2; no rub Lungs: clear anteriorly; decreased at bases Abdomen: soft, nontender, nondistended, positive bowel so
--- NOTE | 2023-09-15 14:06 | P.PNNP_ITS ---
Progress Note: A&P Assessment and Plan (1) NESHA (acute kidney injury): Code(s): N17.9 - Acute kidney failure, unspecified Status: Acute Assessment and Plan: * as noted on admission * ongoing improvement noted (seems to be back to baseline) * evaluation to date noted: * urine electrolytes pre renal * renal ultrasound is negative * CK is a little elevated but not enough to cause kidney problems * urine eosinophils negative * moderate proteinuria * suspect NESHA multifactorial: * hypotension/hemodynamic instability * infection/sepsis (bacteremia) * prerenal azotemia (from pulmonary HTN) * good urine output with IV diuretics * we may be reaching our limit with IV diuretics as noted by her rising CO2/contraction alkalosis * will dose with oral acetazolamide to compensate * switching to oral bumex today * follow trend of repeat labs (2) Stage 3b chronic kidney disease: Code(s): N18.32 - Chronic kidney disease, stage 3b Status: Chronic Assessment and Plan: * creatinine seems to run ~ 1.5 - 1.8mg/dl * due to HTN, DM, vascular disease and age-related change * follows with Dr. Montoya for management of CKD (3) Severe sepsis: Code(s): A41.9 - Sepsis, unspecified organism; R65.20 - Severe sepsis without septic shock Status: Acute Assessment and Plan: * improving * as noted by lactic acidosis and hypotension on presentation * better hemodynamics noted * due to urosepsis -- blood and urine culture with E. coli * on IV antibiotics * follow repeat cultures (4) Hyperkalemia: Code(s): E87.5 - Hyperkalemia Status: Acute Assessment and Plan: * resolving/resolved * due to acute on chronic kidney disease * follow trend of repeat K+ levels (5) Anemia: Qualifiers: Anemia type: due to chronic kidney disease Chronic kidney disease stage: stage 4 (severe) Qualified Code(s): N18.4 - Chronic kidney disease, stage 4 (severe); D63.1 - Anemia in chronic kidney disease Code(s): D64.9 - Anemia, unspecified Status: Acute Assessment and Plan: * s/p PRBC transfusion (on 09/08) * presumably due to acute illness, NESHA, CKD, and chronic disease * follow trend of H/H * holding anticoagulation (6) Hypertension: Qualifiers: Hypertension type: primary hypertension Qualified Code(s): I10 - Essential (primary) hypertension Code(s): I10 - Essential (primary) hypertension Status: Chronic Assessment and Plan: * fluctuating hemodynamics noted * appears stable at this time (7) Chronic obstructive pulmonary disease: Code(s): J44.9 - Chronic obstructive pulmonary disease, unspecified Status: Acute Assessment and Plan: * known history * complicates current respiratory issues * continues supplemental oxygen * on bronchodilators (8) Generalized weakness: Code(s): R53.1 - Weakness Status: Acute Assessment and Plan: * due to acute illness (UTI + sepsis + bacteremia) * PT/OT as tolerated (9) Diabetes mellitus with chronic kidney disease: Code(s): E11.22 - Type 2 diabetes mellitus with diabetic chronic kidney disease Status: Chronic Assessment and Plan: * follow accu-cheks * glycemic control per hospitalist Will continue to follow. Subjective Date/time seen: 09/15/23 14:06 Interval history: Follow-up for acute kidney injury/acute renal failure on chronic kidney disease.
[2023-09-15 16:32] LABS: Glucose Point of Care 125 mg/dl (65-105)
[2023-09-15 19:49] LABS: Glucose Point of Care 121 mg/dl (65-105)
[2023-09-15] MEDS: PRAZOSIN HCL 5 MG CAPSULE PO (20:41)
[2023-09-15] MEDS: rOPINIRole HCL 0.25 MG TABLET PO (20:41)
[2023-09-16] VITALS (11 sets, daily range): BP systolic 122–144; BP diastolic 44–51; PULSE 57–71; RESP 17–22; TEMP 35.9–36.4; O2SAT 93–100
[2023-09-16] MEDS: IPRATROPIUM 0.5 MG/ALBUTEROL SULFATE 2.5 MG AMPUL.NEB 3 ML INHALATION ×4 (03:48→20:52)
[2023-09-16 05:56] LABS: Basophils Percent Auto 0.4 % (0.2-1.2); Eosinophils Absolute Auto 1.6 K/mm3 (0-0.3); Eosinophils Percent Auto 16.4 % (0-4.4); Hematocrit 25.3 % (37.0-47.0); Hemoglobin 7.9 g/dL (12.0-15.0); Immature Granulocyte Absolute 0.19 K/mm3 (0.00-0.031); Immature Granulocyte Percent A 1.9 % (0-0.5); Lymphocytes Absolute Auto 0.66 K/mm3 (0.9-3.2); Lymphocytes Percent Auto 6.6 % (18.3-44.2); Mean Corpuscular HGB Conc 31.2 g/dl (32-36); Mean Corpuscular Volume 99.2 fl (80-100); Mean Platelet Volume 12.1 fl (7.4-10.4); Monocytes Absolute Auto 0.9 K/mm3 (0.1-0.6); Neutrophils Absolute Auto 6.6 K/mm3 (1.3-6.7); Neutrophils Percent Auto 65.7 % (45.5-73.1); Platelet Count Result 241 k/mm3 (150-375); Red Blood Count 2.55 M/mm3 (4.2-5.4); Red Cell Distribution Width 18.6 % (11.5-14.5)
[2023-09-16 06:05] LABS: Alanine Aminotransferase 94 U/L (6-35); Albumin Level 3.7 g/dL (3.5-5.1); Alkaline Phosphatase 142 U/L (38-126); Anion Gap 7 mmol/L (4-12); Aspartate Amino Transferase 37 U/L (14-36); Bilirubin,Total 0.5 mg/dL (0.2-1.3); Blood Urea Nitrogen 31 mg/dL (7-17); Calcium 9.2 mg/dL (8.4-10.2); Carbon Dioxide 36 mmol/L (22-30); Chloride 92 mmol/L (98-107); Estimated CRCL calculation 48 ml/min; Estimated Glomerular Filt Rate 44; Glucose 145 mg/dL (65-110); Potassium 3.5 mmol/L (3.4-5.0); Sodium 135 mmol/L (137-145)
[2023-09-16 07:38] LABS: Glucose Point of Care 159 mg/dl (65-105)
[2023-09-16] MEDS: FLUTICASONE/SALMETEROL 115-21 MCG INHALER 1 PUFF 2 PUFF INHALATION ×2 (09:25→20:52)
[2023-09-16] MEDS: rOPINIRole HCL 0.25 MG TABLET PO ×2 (10:09→20:49)
[2023-09-16] MEDS: GABAPENTIN 100 MG CAPSULE PO ×3 (10:09→17:20)
[2023-09-16] MEDS: FLUoxetine HCL 20 MG CAPSULE 40 MG PO ×2 (10:09→20:50)
[2023-09-16] MEDS: TOLNAFTATE 1% POWDER 45 GM BTL 1 APPLIC TOPICAL ×2 (10:09→20:50)
[2023-09-16] MEDS: CARBIDOPA/LEVODOPA 25/100 MG TABLET 3 TABLET PO ×3 (10:09→17:20)
[2023-09-16] MEDS: APIXABAN 2.5 MG TABLET PO ×2 (10:09→20:49)
[2023-09-16] MEDS: BUMETANIDE 1 MG TABLET 2 MG PO (10:09)
[2023-09-16] MEDS: AMIODARONE HCL 200 MG TABLET BY MOUTH (10:09)
[2023-09-16] MEDS: PRIMIDONE 50 MG TABLET PO ×2 (10:09→20:50)
[2023-09-16] MEDS: PANTOPRAZOLE 40 MG TABLET PO ×2 (10:09→20:50)
[2023-09-16] MEDS: DOXEPIN HCL 25 MG CAPSULE PO ×2 (10:09→20:50)
[2023-09-16] MEDS: allopurinoL 100 MG TABLET PO (10:09)
[2023-09-16] MEDS: amLODIPine BESYLATE 2.5 MG TABLET PO (10:09)
[2023-09-16] MEDS: INSULIN GLARGINE (*BKC) 100 UNITS/ML 10 UNITS SUB-Q (10:12)
[2023-09-16] MEDS: MEROPENEM 1 GM/NS 100 ML 1 GM/100 ML BAG IVPB ×2 (10:12→20:50)
[2023-09-16] MEDS: ALPRAZolam (*CRX) 0.5 MG TABLET PO ×2 (10:19→20:49)
--- NOTE | 2023-09-16 10:45 | PM.PNNEP ---
Progress Note: A&P Assessment and Plan (1) NESHA (acute kidney injury): Code(s): N17.9 - Acute kidney failure, unspecified Status: Acute Assessment and Plan: as noted on admission ongoing improvement noted (seems to be back to baseline if not better) evaluation to date noted: urine electrolytes pre renal renal ultrasound is negative CK is a little elevated but not enough to cause kidney problems urine eosinophils negative moderate proteinuria suspect NESHA multifactorial: hypotension/hemodynamic instability infection/sepsis (bacteremia) prerenal azotemia (from pulmonary HTN) good urine output with IV diuretics we may be reaching our limit with IV diuretics as noted by her rising CO2/contraction alkalosis will dose with oral acetazolamide to compensate switching to oral bumex today follow trend of repeat labs (2) Stage 3b chronic kidney disease: Code(s): N18.32 - Chronic kidney disease, stage 3b Status: Chronic Assessment and Plan: creatinine seems to run ~ 1.5 - 1.8mg/dl due to HTN, DM, vascular disease and age-related change follows with Dr. Montoya for management of CKD (3) Severe sepsis: Code(s): A41.9 - Sepsis, unspecified organism; R65.20 - Severe sepsis without septic shock Status: Acute Assessment and Plan: improving as noted by lactic acidosis and hypotension on presentation better hemodynamics noted due to urosepsis -- blood and urine culture with E. coli on IV antibiotics follow repeat cultures (4) Hyperkalemia: Code(s): E87.5 - Hyperkalemia Status: Acute Assessment and Plan: resolving/resolved due to acute on chronic kidney disease follow trend of repeat K+ levels (5) Anemia: Qualifiers: Anemia type: due to chronic kidney disease Chronic kidney disease stage: stage 4 (severe) Qualified Code(s): N18.4 - Chronic kidney disease, stage 4 (severe); D63.1 - Anemia in chronic kidney disease Code(s): D64.9 - Anemia, unspecified Status: Acute Assessment and Plan: s/p PRBC transfusion (on 09/08) presumably due to acute illness, NESHA, CKD, and chronic disease follow trend of H/H holding anticoagulation (6) Hypertension: Qualifiers: Hypertension type: primary hypertension Qualified Code(s): I10 - Essential (primary) hypertension Code(s): I10 - Essential (primary) hypertension Status: Chronic Assessment and Plan: fluctuating hemodynamics noted appears stable at this time (7) Chronic obstructive pulmonary disease: Code(s): J44.9 - Chronic obstructive pulmonary disease, unspecified Status: Acute Assessment and Plan: known history complicates current respiratory issues continues supplemental oxygen on bronchodilators (8) Generalized weakness: Code(s): R53.1 - Weakness Status: Acute Assessment and Plan: due to acute illness (UTI + sepsis + bacteremia) PT/OT as tolerated (9) Diabetes mellitus with chronic kidney disease: Code(s): E11.22 - Type 2 diabetes mellitus with diabetic chronic kidney disease Status: Chronic Assessment and Plan: follow accu-cheks glycemic control per hospitalist Will continue to follow. Subjective Date/time seen: 09/16/23 10:45 Interval history: Follow-up for acute kidney injury/acute renal failure on chronic kidney disease. Sitting up in chair at the time of my visit -- at bedside as well; no apparent distress noted; renal function/creatinine stable if not better than baseline with good urine output noted; on oral diuretic therapy at this time; no events overnight or earlier this morning. Exam Narrative: General: elderly but large female in NAD Heart: normal S1 and S2; no rub Lungs: clear anteriorly; decreased at bases Abdomen: soft, nontender, nondistended, positive bowel sounds Extremities: no
--- NOTE | 2023-09-16 10:45 | P.PNNP_ITS ---
Progress Note: A&P Assessment and Plan (1) NESHA (acute kidney injury): Code(s): N17.9 - Acute kidney failure, unspecified Status: Acute Assessment and Plan: * as noted on admission * ongoing improvement noted (seems to be back to baseline if not better) * evaluation to date noted: * urine electrolytes pre renal * renal ultrasound is negative * CK is a little elevated but not enough to cause kidney problems * urine eosinophils negative * moderate proteinuria * suspect NESHA multifactorial: * hypotension/hemodynamic instability * infection/sepsis (bacteremia) * prerenal azotemia (from pulmonary HTN) * good urine output with IV diuretics * we may be reaching our limit with IV diuretics as noted by her rising CO2 /contraction alkalosis * will dose with oral acetazolamide to compensate * switching to oral bumex today * follow trend of repeat labs (2) Stage 3b chronic kidney disease: Code(s): N18.32 - Chronic kidney disease, stage 3b Status: Chronic Assessment and Plan: * creatinine seems to run ~ 1.5 - 1.8mg/dl * due to HTN, DM, vascular disease and age-related change * follows with Dr. Montoya for management of CKD (3) Severe sepsis: Code(s): A41.9 - Sepsis, unspecified organism; R65.20 - Severe sepsis without septic shock Status: Acute Assessment and Plan: * improving * as noted by lactic acidosis and hypotension on presentation * better hemodynamics noted * due to urosepsis -- blood and urine culture with E. coli * on IV antibiotics * follow repeat cultures (4) Hyperkalemia: Code(s): E87.5 - Hyperkalemia Status: Acute Assessment and Plan: * resolving/resolved * due to acute on chronic kidney disease * follow trend of repeat K+ levels (5) Anemia: Qualifiers: Anemia type: due to chronic kidney disease Chronic kidney disease stage: stage 4 (severe) Qualified Code(s): N18.4 - Chronic kidney disease, stage 4 (severe); D63.1 - Anemia in chronic kidney disease Code(s): D64.9 - Anemia, unspecified Status: Acute Assessment and Plan: * s/p PRBC transfusion (on 09/08) * presumably due to acute illness, NESHA, CKD, and chronic disease * follow trend of H/H * holding anticoagulation (6) Hypertension: Qualifiers: Hypertension type: primary hypertension Qualified Code(s): I10 - Essential (primary) hypertension Code(s): I10 - Essential (primary) hypertension Status: Chronic Assessment and Plan: * fluctuating hemodynamics noted * appears stable at this time (7) Chronic obstructive pulmonary disease: Code(s): J44.9 - Chronic obstructive pulmonary disease, unspecified Status: Acute Assessment and Plan: * known history * complicates current respiratory issues * continues supplemental oxygen * on bronchodilators (8) Generalized weakness: Code(s): R53.1 - Weakness Status: Acute Assessment and Plan: * due to acute illness (UTI + sepsis + bacteremia) * PT/OT as tolerated (9) Diabetes mellitus with chronic kidney disease: Code(s): E11.22 - Type 2 diabetes mellitus with diabetic chronic kidney disease Status: Chronic Assessment and Plan: * follow accu-cheks * glycemic control per hospitalist Will continue to follow. Subjective Date/time seen: 09/16/23 10:45 Interval history: Follow-up for acute kidney injury/acute renal failure on chronic k
[2023-09-16 11:36] LABS: Glucose Point of Care 180 mg/dl (65-105)
--- NOTE | 2023-09-16 12:16 | PM.IMPN ---
Progress Note: A&P Assessment and Plan (1) Severe sepsis: Code(s): A41.9 - Sepsis, unspecified organism; R65.20 - Severe sepsis without septic shock Status: Acute Assessment and Plan: Patient presents with severe sepsis with hypotension. lactic acidosis likely related to E coli UTI and bacteremia Patient was adequately fluid-resuscitated Lactic acid has normalized -09/04: Blood cultures with 2 sets growing ESBL E coli -09/04: Urine cultures growing ESBL E coli -09/06: ceftriaxone discontinue, meropenem started 09/06 Renal US showing no acute findings. -09/07: Repeat blood cultures with 2 sets growing ESBL E coli -09/09: Repeat blood cultures with 1 set growing ESBL E coli (took about 3 days to register positive) WBC peaked at 22K but has dropped to 10.4K range. CT A/P 09/12 showing moderate right and small left pleural effusion, cortical thinning of the kidneys but no abscess or obstructing stones. 09/12 BCx NGTD Continue Meropenem but narrow to ertapenem tomorrow for total of 14 days from negative culture Place midline. (2) Acute UTI: Code(s): N39.0 - Urinary tract infection, site not specified Status: Acute Assessment and Plan: UA is consistent with UTI. UCx collected. Rocephin started. UCx growing ESBL E coli. Abx changed. As above (3) Acute kidney injury superimposed on CKD: Code(s): N17.9 - Acute kidney failure, unspecified; N18.9 - Chronic kidney disease, unspecified Status: Acute Assessment and Plan: Acute on chronic kidney disease related to hypotensive, infection and severe sepsis CKD related to DM and HTN with baseline Cr 1.40-1.80 She also has a history of CHF with preserved EF Cr climbed to 3.4. She was adequately fluid-resuscitated Nephrology was consulted Urine lytes consistent with prerenal etiology; urine eosinophils were negative, CK level mildly elevated at 254 CT scan of the abdomen and pelvis showing no hydronephrosis Renal ultrasound showing no stones, masses or hydronephrosis 09/08: Patient was started on Bumex 2 mg IV b.i.d., had excellent urine output Bumex IV dose decreased. BUN/creatinine improving with Cr down to 1.2 today CXR 09/12 showing minimal central congestive changes and mild bibasilar pulm edema. No effusions but were seen by CT Changed to oral Bumex Continue to monitor urine output, electrolytes and renal function (4) Hyperkalemia: Code(s): E87.5 - Hyperkalemia Status: Acute Assessment and Plan: Patient with hyperkalemia (6.4) likely related to acute on chronic kidney disease Potassium was treated appropriately with improvement. Potassium again 6.4 on 09/07 High Potassium again treat appropriately. Potassium normalized then became low requiring replacement. Potassium normal today Continue to monitor. (5) Atrial fibrillation: Code(s): I48.91 - Unspecified atrial fibrillation Status: Chronic Assessment and Plan: EKG showed atrial fibrillation with slow ventricular response and incomplete right bundle branch block -could be related to hyperkalemia Troponin elevated to 0.76. Cardiology consulted and appreciate their evaluation and recommendations Echo showing normal LV size with mild concentric LVH and normal systolic function with mild valvular disease. 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 Bradycardia and hypotension have improved Eliquis and Amio resumed. Follow (6) Chronic obstructive pulmonary disease: Code(s): J44.9 - Chronic obstructive pulmonary disease, unspecified Status: Acute Assessment and Plan: Patient has a history of COPD and is on 2L at rest, 3 L with exertion and at night. She is intolerant to noninvasive ventilation for her sleep apnea Continue Advair. Continue bronchodilators (7) Diabetes mellitus with chronic kidney disease: Code(s): E11.22 - Type 2 diabetes mellitus with diab
[2023-09-16] MEDS: BUMETANIDE 1 MG TABLET PO (16:16)
[2023-09-16 16:19] LABS: Glucose Point of Care 176 mg/dl (65-105)
[2023-09-16 18:23] LABS: Glucose Point of Care 168 mg/dl (65-105)
--- NOTE | 2023-09-16 18:24 | PC.NURSE ---
Patient stated she was having chest discomfort and described it was pressure and tightness. Also reported feeling short of breath. Pt did not want to sit in an inclined position, she stated lying flat helped her breathe better. Pt also stated a cold diet pepsi in a white cup would help. Blood sugar 169, BP 144/44, O2 93%, HR 60, RR 15. Pt does not appear short of breath, is resting comfortably and states I'm just gonna go to sleep. Stable and will continue to monitor.
[2023-09-16 20:32] LABS: Glucose Point of Care 134 mg/dl (65-105)
[2023-09-16] MEDS: HYDROcodone/acetaminophen (*CRX) 5-325 MG TABLET 1 TAB PO (20:49)
[2023-09-16] MEDS: PRAZOSIN HCL 5 MG CAPSULE PO (20:50)
[2023-09-17] VITALS (9 sets, daily range): BP systolic 100–125; BP diastolic 41–50; PULSE 51–62; RESP 16–20; TEMP 36.1–36.6; O2SAT 90–99
[2023-09-17 07:39] LABS: Glucose Point of Care 127 mg/dl (65-105)
[2023-09-17] MEDS: FLUTICASONE/SALMETEROL 115-21 MCG INHALER 1 PUFF 2 PUFF INHALATION (08:56)
[2023-09-17] MEDS: IPRATROPIUM 0.5 MG/ALBUTEROL SULFATE 2.5 MG AMPUL.NEB 3 ML INHALATION ×2 (08:56→13:21)
[2023-09-17] MEDS: PRIMIDONE 50 MG TABLET PO (09:45)
[2023-09-17] MEDS: allopurinoL 100 MG TABLET PO (09:45)
[2023-09-17] MEDS: rOPINIRole HCL 0.25 MG TABLET PO (09:45)
[2023-09-17] MEDS: FLUoxetine HCL 20 MG CAPSULE 40 MG PO (09:46)
[2023-09-17] MEDS: DOXEPIN HCL 25 MG CAPSULE PO (09:46)
[2023-09-17] MEDS: GABAPENTIN 100 MG CAPSULE PO ×2 (09:46→12:24)
[2023-09-17] MEDS: CARBIDOPA/LEVODOPA 25/100 MG TABLET 3 TABLET PO ×2 (09:46→12:24)
[2023-09-17] MEDS: PANTOPRAZOLE 40 MG TABLET PO (09:46)
[2023-09-17] MEDS: AMIODARONE HCL 200 MG TABLET BY MOUTH (09:46)
[2023-09-17] MEDS: BUMETANIDE 1 MG TABLET 2 MG PO (09:47)
[2023-09-17] MEDS: APIXABAN 2.5 MG TABLET PO (09:47)
[2023-09-17] MEDS: amLODIPine BESYLATE 2.5 MG TABLET PO (09:47)
[2023-09-17 09:48] LABS: Basophils Absolute Auto 0.1 K/mm3 (0.0-0.1); Basophils Percent Auto 0.6 % (0.2-1.2); Eosinophils Absolute Auto 1.6 K/mm3 (0-0.3); Hematocrit 25.4 % (37.0-47.0); Hemoglobin 7.6 g/dL (12.0-15.0); Immature Granulocyte Absolute 0.14 K/mm3 (0.00-0.031); Immature Granulocyte Percent A 1.3 % (0-0.5); Lymphocytes Absolute Auto 1.04 K/mm3 (0.9-3.2); Lymphocytes Percent Auto 9.6 % (18.3-44.2); Mean Corpuscular HGB Conc 29.9 g/dl (32-36); Mean Corpuscular Volume 100.4 fl (80-100); Mean Platelet Volume 11.8 fl (7.4-10.4); Monocytes Absolute Auto 0.9 K/mm3 (0.1-0.6); Monocytes Percent Auto 7.8 % (2.6-8.5); Neutrophils Absolute Auto 7.1 K/mm3 (1.3-6.7); Neutrophils Percent Auto 65.7 % (45.5-73.1); Platelet Count Result 233 k/mm3 (150-375); Red Blood Count 2.53 M/mm3 (4.2-5.4); Red Cell Distribution Width 18.5 % (11.5-14.5); White Blood Count 10.8 K/mm3 (4.5-10.0)
[2023-09-17] MEDS: polyethylene glycoL 3350 17 GM POWD.PACK PO (09:48)
[2023-09-17] MEDS: TOLNAFTATE 1% POWDER 45 GM BTL 1 APPLIC TOPICAL (09:48)
[2023-09-17] MEDS: ERTAPENEM 1 GM/NS 50 ML 1 GM/50 ML BAG IVPB (09:50)
[2023-09-17] MEDS: ALPRAZolam (*CRX) 0.5 MG TABLET PO (09:58)
[2023-09-17] MEDS: INSULIN GLARGINE (*BKC) 100 UNITS/ML 10 UNITS SUB-Q (09:58)
[2023-09-17 10:12] LABS: Hypochromasia 1+; Platelet Estimate Adequate (Adequate)
[2023-09-17 10:13] LABS: Anisocytosis 1+; Ovalocytes 1+; Schistocytes None Seen; Stomatocytes 1+
[2023-09-17 10:26] LABS: Albumin Level 3.7 g/dL (3.5-5.1); Anion Gap 9 mmol/L (4-12); Blood Urea Nitrogen 29 mg/dL (7-17); Calcium 9.2 mg/dL (8.4-10.2); Carbon Dioxide 31 mmol/L (22-30); Chloride 93 mmol/L (98-107); Estimated CRCL calculation 39 ml/min; Estimated Glomerular Filt Rate 34; Glucose 203 mg/dL (65-110); Magnesium 1.7 mg/dL (1.6-2.3); Phosphorus 3.8 mg/dL (2.5-4.5); Sodium 133 mmol/L (137-145)
[2023-09-17] MEDS: ACETAMINOPHEN 325 MG TABLET 650 MG BY MOUTH (10:27)
--- NOTE | 2023-09-17 11:30 | PCPTNOTE ---
Patient declined PT stating she was fatigued and could not participate at this time. PT will continue to follow per plan of care.
[2023-09-17 11:39] LABS: Glucose Point of Care 210 mg/dl (65-105)
--- NOTE | 2023-09-17 12:23 | PM.DS ---
DS: Admitting Diagnosis Discharge Date 09/17/23 Admitting Diagnosis Altered mental status DS: Discharge Diagnosis Discharge Diagnosis (1) Severe sepsis: Code(s): A41.9 - Sepsis, unspecified organism; R65.20 - Severe sepsis without septic shock Status: Acute (2) Acute UTI: Code(s): N39.0 - Urinary tract infection, site not specified Status: Acute (3) Acute kidney injury superimposed on CKD: Code(s): N17.9 - Acute kidney failure, unspecified; N18.9 - Chronic kidney disease, unspecified Status: Acute (4) Hyperkalemia: Code(s): E87.5 - Hyperkalemia Status: Acute (5) Atrial fibrillation: Code(s): I48.91 - Unspecified atrial fibrillation Status: Chronic Assessment and Plan: EKG showed atrial fibrillation with slow ventricular response and incomplete right bundle branch block -could be related to hyperkalemia Troponin elevated to 0.76. Cardiology consulted and appreciate their evaluation and recommendations Echo showing normal LV size with mild concentric LVH and normal systolic function with mild valvular disease. 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 Bradycardia and hypotension have improved Eliquis and Amio resumed. Follow (6) Chronic obstructive pulmonary disease: Code(s): J44.9 - Chronic obstructive pulmonary disease, unspecified Status: Acute (7) Diabetes mellitus with chronic kidney disease: Code(s): E11.22 - Type 2 diabetes mellitus with diabetic chronic kidney disease Status: Chronic (8) Generalized weakness: Code(s): R53.1 - Weakness Status: Acute (9) Heart failure with preserved ejection fraction: Code(s): I50.30 - Unspecified diastolic (congestive) heart failure Status: Chronic (10) History of DVT (deep vein thrombosis): Code(s): Z86.718 - Personal history of other venous thrombosis and embolism Status: Acute (11) Hypertension: Qualifiers: Hypertension type: primary hypertension Qualified Code(s): I10 - Essential (primary) hypertension Code(s): I10 - Essential (primary) hypertension Status: Chronic (12) Elevated liver enzymes: Code(s): R74.8 - Abnormal levels of other serum enzymes Status: Acute (13) Anemia: Qualifiers: Anemia type: due to chronic kidney disease Chronic kidney disease stage: stage 4 (severe) Qualified Code(s): N18.4 - Chronic kidney disease, stage 4 (severe); D63.1 - Anemia in chronic kidney disease Code(s): D64.9 - Anemia, unspecified Status: Acute DS: Summary Hospital Course Reason for hospitalization: 72yo female with DERRICK, dCHF, CKD 3, COPD, Parkinsons and DM admitted on 09/06/23 for AMS. Please see H&P for details. Hospital Course: The following issues were addressed: (1) Severe sepsis: Patient presents with severe sepsis with hypotension. lactic acidosis likely related to E coli UTI and bacteremia. Patient was adequately fluid-resuscitated. Lactic acid has normalized. 09/04: Blood cultures with 2 sets growing ESBL E coli. 09/04: Urine cultures growing ESBL E coli. 09/06: ceftriaxone discontinue, meropenem started 09/06. Renal US showing no acute findings. 09/07: Repeat blood cultures with 2 sets growing ESBL E coli. 09/09: Repeat blood cultures with 1 set growing ESBL E coli (took about 3 days to register positive). WBC peaked at 22K but has dropped to 10K range. CT A/P 09/12 showing moderate right and small left pleural effusion, cortical thinning of the kidneys but no abscess or obstructing stones. 09/12 BCx NGTD. Meropenem was narrowed to ertapenem and Midline placed for director long term care abx. Nephrology was in agreement for midline. (2) Acute UTI: UA is consistent with UTI. UCx collected. Rocephin started. UCx growing ESBL E coli. Abx changed. As above (3) Acute kidney injury superimposed on CKD: Acute on chronic kidney disease re
[2023-09-17] MEDS: INSULIN ASPART (*BKC) 100 UNITS/ML SUB-Q (12:25)
== END 2023-09-17 14:05 | DRG 871 ==
LOC: ANHED 21:16 → ANH3MEDSUR 09-06 01:10 → ANHICU 09-09 14:51 → ANH3MEDSUR 09-17 12:50 → ANHICU 09-18 08:43 → ANHIMU 09-18 08:43
PROVIDERS: Internal Medicine; Internal Medicine Nephrology; Student in an Organized Health Care Education/Training Program; Admitting Provider Internal Medicine; Emergency Provider Student in an Organized Health Care Education/Training Program; Visit Provider Internal Medicine
DX: A41.51 Sepsis due to Escherichia coli [E. coli] (principal); K72.00 Acute and subacute hepatic failure without coma; N39.0 Urinary tract infection, site not specified; N17.9 Acute kidney failure, unspecified; I50.32 Chronic diastolic (congestive) heart failure; I13.0 Hypertensive heart and chronic kidney disease with heart failure and stage 1 through stage 4 chronic kidney disease, or unspecified chronic kidney disease; I48.20 Chronic atrial fibrillation, unspecified; J96.10 Chronic respiratory failure, unspecified whether with hypoxia or hypercapnia; Z68.42 Body mass index [BMI] 45.0-49.9, adult; E87.1 Hypo-osmolality and hyponatremia; I24.89 Other forms of acute ischemic heart disease; R65.20 Severe sepsis without septic shock; B96.20 Unspecified Escherichia coli [E. coli] as the cause of diseases classified elsewhere; N18.32 Chronic kidney disease, stage 3b; E87.5 Hyperkalemia; G20.A1 Parkinson's disease without dyskinesia, without mention of fluctuations; J44.9 Chronic obstructive pulmonary disease, unspecified; E11.22 Type 2 diabetes mellitus with diabetic chronic kidney disease; D63.1 Anemia in chronic kidney disease; G47.33 Obstructive sleep apnea (adult) (pediatric); I45.10 Unspecified right bundle-branch block; G25.81 Restless legs syndrome; K21.9 Gastro-esophageal reflux disease without esophagitis; E03.9 Hypothyroidism, unspecified; E11.42 Type 2 diabetes mellitus with diabetic polyneuropathy; E78.5 Hyperlipidemia, unspecified; M19.90 Unspecified osteoarthritis, unspecified site; K59.00 Constipation, unspecified; R00.1 Bradycardia, unspecified; W06.XXXA Fall from bed, initial encounter; E66.01 Morbid (severe) obesity due to excess calories; Z99.81 Dependence on supplemental oxygen; Z86.718 Personal history of other venous thrombosis and embolism; Z87.442 Personal history of urinary calculi; Z96.653 Presence of artificial knee joint, bilateral; Z90.710 Acquired absence of both cervix and uterus; Z87.11 Personal history of peptic ulcer disease
CPT/HCPCS: 36415; 36430; 36569; 36600; 70450; 70486; 71045; 74176; 76705; 76775; 80048; 80053; 80069; 80074; 81001; 82140; 82375; 82436; 82533; 82550; 82570; 82607; 82746; 82805; 82948; 83036; 83050; 83540; 83550; 83605; 83690; 83735; 83880; 84100; 84132; 84133; 84155; 84156; 84165; 84300; 84484; 84540; 85014; 85018; 85025; 85055; 85610; 85730; 85999; 86140; 86850; 86900; 86901; 86923; 87040; 87077; 87086; 87088; 87186; 87637; 92610; 93005; 93970; 94002; 94003; 94640; 97110; 97116; 97162; 97166; 97530; 97535; A9270; C1751; C8929; J0360; J0612; J0696; J1120; J1265; J1335; J1610; J1644; J1720; J1815; J1939; J2060; J2185; J2270; J2310; J2405; J2470; J3370; J3475; J7030; J7050; P9016; P9047; Q9957

== ENCOUNTER 2023-09-26 20:20 | Inpatient (IN) | payer MEDICARE, BC, SELFPAY ==
--- NOTE | ~2023-09-26 | XR_ITS ---
EXAMINATION: XR chest 1V portable DATE: 09/26/2023 21:03 INDICATION: Bradycardia TECHNIQUE: frontal view of the chest was obtained. COMPARISON: Chest radiograph dated 09/13/2023 FINDINGS: Bandlike opacity projecting over the right atrium at the medial right lower lung zone with configurat ion favoring atelectasis over pneumonia. No other airspace opacities, pulmonary edema, pleural effusi on or pneumothorax. Cardiomegaly. Atherosclerotic calcifications at the aortic arch. IMPRESSION: 1. Cardiomegaly. 2. Bandlike opacity medial right lower lung zone and favor atelectasis over pneumonia. Reviewed, dictated and finalized at location A. IMPRESSION: 1. Cardiomegaly. 2. Bandlike opacity medial right lower lung zone and favor atelectasis over pne umonia.
--- NOTE | ~2023-09-26 | CT_ITS ---
EXAMINATION: CT brain wo con DATE: 09/26/2023 22:45 INDICATION: Weakness TECHNIQUE: Computed tomography (CT) of the head was performed without intravenous contrast. Sagittal and coronal reconstructions were performed. The mA was adjusted according to patient size. Iterative reconstruction technique was employed. The dose-length product was 1362.00 mGy-cm. COMPARISON: head CT dated 09/08/2023 FINDINGS: No acute intracranial hemorrhage, acute infarction or abnormal extra axial fluid collection. Consiste nt seen is extensive scattered white matter hypoattenuation consistent with chronic small vessel isch emic disease. Symmetric prominence of the sulci consistent with mild age-appropriate diffuse cerebral volume loss. Ventricles are normal and symmetric. No mass/mass effect. Changes of bilateral intraoc ular lens replacement. The orbits and mastoid air cells are normal. Mucosal thickening in the and sandee ateral sphenoid sinuses with partial opacification of the right sphenoid sinus. Mucous retention cyst at the posterior right maxillary sinus. IMPRESSION: 1. No acute intracranial process. 2. Stable appearance of age-related changes including mild diffuse volume loss and extensive scattere d white matter hypoattenuation consistent with chronic small vessel ischemic disease. Reviewed, dictated and finalized at location A. IMPRESSION: 1. No acute intracranial process. 2. Stable appearance of age-related changes including mild diffuse volume loss and extensive scattered white matter hypoattenuation consistent with chronic sm all vessel ischemic disease.
--- NOTE | ~2023-09-26 | NM_ITS ---
EXAMINATION: NM hepatobiliary w pharm DATE: 09/27/2023 13:41 INDICATION: Dilated gallbladder. Dyspnea. COMPARISON: CT abdomen and pelvis 07/27/2023 TECHNIQUE: 4.9 mCi Tc-99m mebrofenin (Choletec) was administered intravenously. Scintigraphic images of the abdomen were obtained for one hour. Then, 2.6 mcg sincalide (Kinevac) IV was administered, an d imaging was continued for 30 minutes. FINDINGS: There is normal clearance of radiotracer from the blood pool. There is homogeneous tracer u ptake by the liver. Activity progresses to the bowel and gallbladder. Gallbladder ejection fraction (GBEF) was 54%. Note that most patients with gallbladder dysfunction have GBEF < 35%, which overlaps with the broad normal range of 10-90%. IMPRESSION: 1. Normal hepatobiliary scintigraphy. Reviewed, dictated and finalized at location A.
--- NOTE | ~2023-09-26 | XR_ITS ---
EXAMINATION: XR chest port-a-cath/central DATE: 09/26/2023 23:34 INDICATION: Central line placement TECHNIQUE: frontal view of the chest was obtained. COMPARISON: Chest radiograph dated 09/26/2023 at 8:59 PM FINDINGS: Placement of a dual-lumen left internal jugular central venous catheter with distal tip at the cephal ad superior vena cava. Persistent consolidation at the medial right lower lung zone which could repre sent atelectasis or pneumonia. No pulmonary edema, pneumothorax or evident pleural effusion. Cardiome neetu. IMPRESSION: 1. Tip of a left internal jugular central venous catheter at the cephalad superior vena cava. 2. Consolidation at the right lower lobe which could represent atelectasis or pneumonia. 3. Cardiomegaly. Reviewed, dictated and finalized at location A. IMPRESSION: 1. Tip of a left internal jugular central venous catheter at the cephalad super ior vena cava. 2. Consolidation at the right lower lobe which could represent atelectasis or p neumonia. 3. Cardiomegaly.
--- NOTE | ~2023-09-26 | CT_ITS ---
EXAMINATION: CT chest abdomen pelvis wo con DATE: 09/26/2023 22:45 INDICATION: Recurrent urinary tract infection. Weakness. Bradycardia. TECHNIQUE: Computed tomography (CT) of the chest, abdomen, and pelvis was performed without intraveno us contrast. Automated exposure control and iterative reconstruction technique were employed. The dos e-length product was 1362.00 mGy-cm. COMPARISON: 09/13/2023 and 06/16/2023 FINDINGS: CHEST CT: Mild emphysema. Small right and tiny left posterior layering pleural effusions with dependent atelect asis in the bilateral lower lobes. There is a small wedge-shaped region of consolidation at the basil ar right lower lobe and favor additional atelectasis over pneumonia. No pulmonary edema or pneumothor ax. No significant change in a 11 x 7 mm subpleural nodule at the left upper lobe. Mild cardiomegaly. Atherosclerotic coronary artery calcifications. No pericardial effusion. Thoracic aorta is normal in caliber. 1.4 cm right thyroid nodule. No pathologically enlarged thoracic lymphadenopathy. Moderate thoracic spondylosis. ABDOMEN/PELVIS CT: Liver, spleen, pancreas and left adrenal gland are normal. Approximately 1.5 cm low-attenuation low-a ttenuation right adrenal adenoma. The gallbladder is dilated to 4.7 cm in maximal diameter with minim al pericholecystic fluid but without surrounding inflammatory stranding nonetheless raising some conc kadie for acute cholecystitis. 12 mm low-attenuation left renal cyst. 2 mm nonobstructing right renal s tone. Normal appendix. No bowel obstruction. De La Cruz catheter within the decompressed bladder. The uter us is not identified and has likely been surgically resected. Persistent presacral edema and minimal free fluid in the cul-de-sac. No pathologically enlarged abdominal or pelvic lymphadenopathy. Severe lower lumbar facet osteoarthritis. IMPRESSION: 1. Mildly dilated gallbladder with suggestion of pericholecystic fluid which raises some concern for acute cholecystitis but without surrounding inflammatory stranding to more specifically suggest this. Correlate for [place] and could consider further evaluation with right upper quadrant ultrasound or H ETHAN scan. 2. Small right and tiny left pleural effusions. 3. Small region of consolidation in the right lower lobe with appearance favoring atelectasis over pn eumonia. 4. Cardiomegaly. 5. 2 mm nonobstructing right renal stone. 6. Mild emphysema with 11 x 7 mm left upper lobe nodule, unchanged since 06/16/2023. Consider further e valuation with either additional 3 month follow-up low-dose chest CT or PET/CT. Reviewed, dictated and finalized at location A. IMPRESSION: 1. Mildly dilated gallbladder with suggestion of pericholecystic fluid which ra ises some concern for acute cholecystitis but without surrounding inflammatory stranding to more specifically suggest this. Correlate for [place] and could con temper mill roller further evaluation with right upper quadrant ultrasound or HIDA scan. 2. Small right and tiny left pleural effusions. 3. Small region of consolidation in the right lower lobe with appearance favori ng atelectasis over pneumonia. 4. Cardiomegaly. 5. 2 mm nonobstructing right renal stone. 6. Mild emphysema with 11 x 7 mm left upper lobe nodule, unchanged since 06/16/19 24. Consider further evaluation with either additional 3 month follow-up low-do se chest CT or PET/CT.
[2023-09-26 20:11] VITALS: BP 115/58; PULSE 54; RESP 20; TEMP 36.4; O2SAT 95
[2023-09-26 20:31] VITALS: PULSE 54
--- NOTE | 2023-09-26 20:33 | ECG_ITS ---
Test Date: 2023-09-26 20:28:13 Measurements Intervals [place] Rate: 57 P: 0 LA: 0 QRS: 21 QRSD: 89 T: 38 QT: 487 QTc: 475 Interpretive Statements SINUS RHYTHM WITH JUNCTIONAL ESCAPE BEATS LOW QRS VOLTAGE [QRS DEFLECTION < 0.5/1.0 mV IN LIMB/CHEST LEADS] PROLONGED QT INTERVAL ABNORMAL ECG Compared to ECG 09/07/2023 09:21:28 Prolonged QT interval now present JUNCTIONAL ESCAPE BEATS ARE DEMONSTRATED Electronically Signed On 09-27-2023 14:56:27 CDT by Joshua Mederos M.D.
[2023-09-26 20:59] LABS: Basophils Absolute Auto 0.1 K/mm3 (0.0-0.1); Basophils Percent Auto 1.6 % (0.2-1.2); Eosinophils Absolute Auto 0.1 K/mm3 (0-0.3); Eosinophils Percent Auto 0.9 % (0-4.4); Hematocrit 25.3 % (37.0-47.0); Hemoglobin 7.8 g/dL (12.0-15.0); Immature Granulocyte Absolute 0.02 K/mm3 (0.00-0.031); Immature Granulocyte Percent A 0.3 % (0-0.5); Immature Platelet Fraction Pct 12.6 % (0.9-11.2); Lymphocytes Absolute Auto 0.93 K/mm3 (0.9-3.2); Lymphocytes Percent Auto 13.2 % (18.3-44.2); Mean Corpuscular HGB Conc 30.8 g/dl (32-36); Mean Corpuscular Hemoglobin 30.5 pg (26-34); Mean Corpuscular Volume 98.8 fl (80-100); Mean Platelet Volume 13.2 fl (7.4-10.4); Monocytes Absolute Auto 0.7 K/mm3 (0.1-0.6); Monocytes Percent Auto 9.6 % (2.6-8.5); Neutrophils Absolute Auto 5.3 K/mm3 (1.3-6.7); Neutrophils Percent Auto 74.4 % (45.5-73.1); Platelet Count Result 183 k/mm3 (150-375); Red Blood Count 2.56 M/mm3 (4.2-5.4); Red Cell Distribution Width 17.4 % (11.5-14.5); White Blood Count 7.1 K/mm3 (4.5-10.0)
[2023-09-26 21:09] LABS: Lactic Acid Reflex 1.5 mmol/L (0.7-2.0)
[2023-09-26 21:10] LABS: Alanine Aminotransferase 18 U/L (6-35); Alkaline Phosphatase 115 U/L (38-126); Anion Gap 12 mmol/L (4-12); Aspartate Amino Transferase 17 U/L (14-36); Bilirubin,Total 0.5 mg/dL (0.2-1.3); Blood Urea Nitrogen 63 mg/dL (7-17); Calcium 9.3 mg/dL (8.4-10.2); Carbon Dioxide 32 mmol/L (22-30); Chloride 88 mmol/L (98-107); Estimated CRCL calculation 22 ml/min; Estimated Glomerular Filt Rate 17; Glucose 112 mg/dL (65-110); Lipase 189 U/L (23-300); Magnesium 2.2 mg/dL (1.6-2.3); Phosphorus 5.9 mg/dL (2.5-4.5); Potassium 5.4 mmol/L (3.4-5.0); Sodium 132 mmol/L (137-145)
[2023-09-26 21:15] LABS: INR 1.4; Prothrombin Time 17.8 Seconds (11.1-14.7)
[2023-09-26 21:16] LABS: Partial Thromboplastin Time 34.8 Seconds (22.3-36.8)
[2023-09-26 21:21] LABS: NT Pro B Type Natriuretic Pept 13400 pg/mL (19.9-100); Troponin I 0.028 ng/mL (0.000-0.034)
[2023-09-26 21:34] LABS: Influenza A QL RT-PCR Negative (Negative); Influenza B QL RT-PCR Negative (Negative); RSV RNA, RT-PCR Negative (Negative); SARS-CoV-2 RNA PCR Negative (Negative)
[2023-09-26 21:42] LABS: Add Urine Microscopic? YES; Appearance Urine Turbid (Clear); Bacteria Urine None Seen /hpf; Bilirubin Urine Negative (Negative); Blood Urine 2+ (Negative); Color Urine Dark Yellow (Yellow); Glucose Urine UA Negative (Negative); Ketones Urine Trace mg/dL (Negative); Leukocyte Esterase Ur 3+ LEU/UL (Negative); Need Manual Microscopic Reviewed; Nitrate Urine Negative (Negative); Non Pathogenic Casts >20; Protein Urine 2+ mg/dL (Negative); RBC Urine 51-100 /hpf (0-2); Specific Grav Ur 1.018 (1.001-1.035); Squamous Epithelial Cell Urine Many /hpf (Few); WBC Urine >100 /hpf (0-3); pH Urine 5.5 (5.0-9.0)
--- NOTE | 2023-09-26 21:56 | ED.GENADULT ---
HPI - General Adult General Chief complaint: Weakness Stated complaint: BRADYCARDIA, GENERALIZED WEAKNESS Time Seen by Provider: 09/26/23 20:39 History of Present Illness HPI narrative: This is a 73-year-old female with multiple medical comorbidities including CHF COPD and chronic kidney disease presenting with weakness. She was discharged yesterday from rehab after being admitted hospital due to sepsis/bacteremia from E coli. She was too weak to get to her house without the fire department. Since then she has been unable to get out of bed and overall feels like she has no energy. She is denying fevers chills chest pain difficulty breathing abdominal pain urinary symptoms. EMS was called by her who found her to be bradycardic in the 30s. She received atropine which temporarily improved her heart rate to the 70s. Patient is on amiodarone. Code status discussed with the patient and her the they would like full measures as long as there is a chance of meaningful recovery but do not want her life prolonged a machine. Related Data Home Medications Medication Instructions Recorded Confirmed atorvastatin 80 mg tablet 80 mg PO QAM 12/10/19 09/17/23 carbidopa 25 mg-levodopa 100 mg 3 tablet PO TID 12/10/19 09/17/23 tablet allopurinol 100 mg tablet 100 mg PO DAILY 12/12/21 09/17/23 empagliflozin 10 mg tablet 10 mg PO DAILY 12/12/21 09/17/23 (Jardiance) ipratropium 0.5 mg-albuterol 3 mg 3 ml inhalation Q6H 12/12/21 09/17/23 (2.5 mg base)/3 mL nebulization soln prazosin 5 mg capsule 5 mg PO HS 12/12/21 09/17/23 ropinirole 0.5 mg tablet 0.5 mg PO HS 12/12/21 09/17/23 acetaminophen 650 mg tablet 650 mg PO Q6H PRN Pain (Scale 12/23/21 09/17/23 Score 1-3) albuterol sulfate 90 mcg/actuation 2 puff inhalation QID PRN 12/23/21 09/17/23 aerosol inhaler Shortness Of Breath Or Wheezing gabapentin 100 mg capsule 100 mg PO TID ##0 12/29/21 09/17/23 amiodarone 200 mg tablet 200 mg PO DAILY ##0 08/28/22 09/17/23 apixaban 5 mg tablet (Eliquis) 2.5 mg PO Q12HR 08/28/22 09/17/23 pantoprazole 40 mg tablet,delayed 40 mg PO QAM 08/28/22 09/17/23 release fluticasone propionate 115 2 puff inhalation Q12H ##0 09/02/22 09/17/23 mcg-salmeterol 21 mcg/actuation HFA inhaler Allergies Allergy/AdvReac Type Severity Reaction Status Date / Time iodine Allergy Severe Hives Verified 05/06/22 12:41 latex Allergy Severe Hives Verified 05/06/22 12:41 Contrast Media Allergy Mild Hives Uncoded 05/06/22 12:41 [facility] Past Medical History Medical History (Updated 09/26/23 @ 23:49 by Alan Lazaro MD) Acute hyperkalemia Anxiety BMI greater than 40 Chronic anemia Chronic kidney disease, stage 3 Baseline creatinine ranges between 1.2 and 1.50. Chronic obstructive pulmonary disease Depression Diabetic polyneuropathy Gastroesophageal reflux disease GI bleed (01/2010) Secondary to peptic ulcer. Heart failure with preserved ejection fraction History of DVT (deep vein thrombosis) Hyperlipidemia Hypertension Hypothyroidism Impaired cognition Junctional rhythm Kidney stones Neuropathy Obstructive sleep apnea Patient does not use PAP therapy at nighttime. Osteoarthritis Parkinson disease Restless leg syndrome Type 2 diabetes mellitus Weakness of left lower extremity Surgical History Surgical History History of bilateral knee arthroplasty History of hysterectomy History of sinus surgery Family History Family History Grandparent Diabetes mellitus Acute myocardial infarction Father Acute myocardial infarction Mother Acute myocardial infarction Social History Social History Social History: Surrogate decision maker: Fly Rondon, . Code status: Full code. Smoking packs per day: 1 Smoking cigarettes per day: 20.0 Years smoked: 40 Smoking pa
[2023-09-26] MEDS: CALCIUM GLUC 2,000 MG/NS 100ML 2,000 MG/100 ML BAG 100 MG IVPB (22:05)
[2023-09-26] MEDS: INSULIN HUMAN REGULAR (*BKC) 100 UNITS/ML 10 UNITS IV PUSH (22:08)
[2023-09-26] MEDS: SODIUM BICARBONATE 8.4% 50 MEQ/50 ML SYRINGE IV PUSH (22:08)
[2023-09-26] MEDS: DEXTROSE 50% 25 GM/50 ML SYRINGE IV PUSH (22:08)
[2023-09-26] MEDS: SODIUM CHLORIDE 0.9% IV 1,000 ML 999 ML IV CONT ×2 (22:17→22:54)
[2023-09-26] MEDS: PIPERACILLN/TAZ 3.375GM/NS50ML 3.375 GM/50 ML BAG IVPB (22:17)
[2023-09-26 22:36] LABS: Cholesterol 169 mg/dL (0-200); Creatine Kinase 40 U/L (30-135); HDL Direct 37 mg/dL; Triglycerides 167 mg/dL (<150)
[2023-09-26 22:36] LABS: Free T4 Free Thyroxine Reflex 1.63 ng/dL (0.78-2.19)
[2023-09-26 22:45] VITALS: BP 112/68; PULSE 38; RESP 12; TEMP 37.2; O2SAT 97
[2023-09-26 22:47] LABS: LDL Cholesterol Direct 87 mg/dL
[2023-09-26 23:09] VITALS: BP 105/40; PULSE 39; RESP 12; TEMP 37.2; O2SAT 100
[2023-09-26 23:15] LABS: Alveolar/Arterial O2 Gradient < 0.0 mmHg; Base Excess ABG 2.1 mEq/l (+/-2.0); Fractional Inspired Oxygen 32 %; HCO3 ABG 27.7 mEq/l (22.0-26.0); Oxygen Content ABG 11.9 %vol (16.0-22.0); Oxygen Saturation ABG 99.4 % (95.0-100.0); Oxyhemoglobin 98.5 % THb (90.0-100.0); PCO2 ABG 48.6 mmHg (35.0-45.0); PO2 ABG 209.1 mmHg (80.0-100.0); PO2 FiO2 Ratio Arterial Blood 6.53 %; Total Hemoglobin 8.2 g/dL (12.0-18.0); pH ABG 7.374 (7.350-7.450)
[2023-09-26 23:16] LABS: Device NASAL CANNULA; Modified Allen's Test Pass; Site Drawn ARTLINE
[2023-09-26 23:20] LABS: Total Triiodothyronine (T3) 0.87 NG/ML (0.97-1.69)
[2023-09-26] MEDS: MEROPENEM 1 GM/NS 100 ML 1 GM/100 ML BAG IVPB (23:46)
[2023-09-26] MEDS: LACTATED RINGERS 1,000 ML 100 ML IV CONT (23:49)
[2023-09-26 23:51] LABS: Amphetamine Screen Urine Negative (Negative); Barbiturate Screen Urine Positive (Negative); Benzodiazepines Screen Urine Positive (Negative); Cannabinoid Screen Urine Negative (Negative); Cocaine Screen Urine Negative (Negative); Methadone Screen Urine Negative (Negative); Opiate Screen Urine Positive (Negative); Phencyclidine Screen Urine Negative (Negative)
[2023-09-26 23:53] VITALS: BP 90/29; PULSE 33
[2023-09-26] MEDS: DOPamine 400 MG/D5W 250 ML 400 MG/250 ML BAG 23.81 MG IV CONT (23:53)
[2023-09-27] VITALS (33 sets, daily range): BP systolic 94–180; BP diastolic 36–86; PULSE 41–70; RESP 11–24; TEMP 36.3–37.3; O2SAT 88–99; BMI 50.4
[2023-09-27 00:04] LABS: Glucose Point of Care 83 mg/dl (65-105)
[2023-09-27] MEDS: NOREPINEPHRINE 8 MG/D5W 250 ML 8 MG/250 ML BAG 9.38 MG IV CONT (00:13)
[2023-09-27] MEDS: SODIUM CHLORIDE 0.9% IV 1,000 ML 999 ML IV CONT (00:15)
--- NOTE | 2023-09-27 01:12 | ADMGEN ---
This patient, Jenni Rondon, was admitted to Intensive Care Unit-7. Patient/family oriented to hospital policies and general routines including ID bracelet, bed and alarms, visiting hours, pain management, procedures, bathroom and other care routines, personal items, smoking policy, room service/diet, and visiting hours. Information on how to activate the Rapid Response Team has been discussed. Patient/Family are encouraged to report perceived risks to care and to ask questions if they do not understand what they are told or what they should do.
[2023-09-27 01:18] LABS: Troponin I 0.028 ng/mL (0.000-0.034)
[2023-09-27] MEDS: VANCOMYCIN 1,750 MG/NS 500 ML 1,750 MG/500 ML BAG 250 MG IVPB (01:49)
--- NOTE | 2023-09-27 02:34 | PM.IMHP ---
H&P: HPI History of Present Illness Date/Time: 09/27/23 02:34 Chief Complaint: Weakness Narrative: 73-year-old female with a past medical history of obstructive sleep apnea intolerant to CPAP, Parkinson's disease, morbid obesity, CHF with preserved ejection fraction, type 2 diabetes mellitus, diabetic peripheral neuropathy, hypothyroidism, chronic kidney disease stage III, COPD, GERD, bipolar disorder/depression among other multiple comorbidities who presented to the ER via EMS from home due to weakness. The patient had been discharged from [facility] rehab less than 48 hours prior. The patient's reported that on the day the patient at home they had trouble getting her up the steps. She had a lift chair placed on the entryway stairs but it was not quite enough and her legs kept getting caught. They had to call EMS in order to help get her into the house. He feels that patient was exhausted after that and did not recover. He felt she did not sleep well due to that and continually woke herself up all night. The following morning she had an incontinent bowel movement in bed. He reports that she has chronic urinary incontinence that is unchanged from baseline. He feels that she was more weak after the bowel movement. He tried to get her up little bit later in the day but her legs were so weak that she could not stand. They called EMS who found the patient's heart rate in the 50s. The patient's heart rate then dropped to 38 in the ambulance. She received atropine and her heart rate went back up in the 70s and 80s but dropped again into the 30s and 40s. The patient is on chronic oxygen of 3 L. She does have obstructive sleep apnea but never tolerated CPAP. Patient was only alert oriented x2 at the time of my evaluation. Most of the information came from patient's . He reports that since the patient was so fatigued after coming into the house she had no appetite the the night. He reports that she did eat better on the but it does not sound like she had much in the way of fluid intake. He does not feel like she was having more shortness of breath baseline. He reports that her legs are not having any increased swelling. He reports that he was unsure what medications they had discharged her arm from the rehab facility. He assumed that her medications were unchanged from baseline. So he did give her a dose of metoprolol on the morning of the . He had also given her reportedly some oxcarbamazepine. Ultimately though he is unsure what medications he did get for and which ones he did not. He thought that his had been discharged on antibiotic therapy. He did show me the bottle of trazodone which he thought was they antibiotics. It sounds as if the patient and antibiotics were finished the morning prior to discharge from acute rehab. The patient insisted on being discharged on the as it was her birthday. The patient's blood pressure did become low in the ER. She did initially received 2 L fluid bolus for ideal body weight. However when hypotension persisted an additional 3 L was administered. Patient's blood pressure initially remained low necessitating placement of central line. However by the time patient arrived to the ICU patient was hypertensive. Levophed was discontinued. Shortly thereafter dopamine was also discontinued. Repeat EKG demonstrated sinus bradycardia with a rate of 44. The patient has remained hypertensive since arrival to the ICU. Nursing staff reports that during patient's last hospitalization she had multiple episodes of bradycardia after receiving metoprolol and had episodes of bradycardia when she was hyperkalemic during her last hospital stay. During her last hospitalization the patient was bacteremic with E coli. Repeat blood cultures and urine cultures were sent today. Patient was placed on empiric antibiotic therapy with Zosyn and vancomycin but switched to meropenem and vancomycin was co
--- NOTE | 2023-09-27 02:47 | ECG_ITS ---
Test Date: 2023-09-27 02:47:11 Measurements Intervals [place] Rate: 44 P: 63 MA: 202 QRS: 13 QRSD: 97 T: 51 QT: 493 QTc: 423 Interpretive Statements SINUS BRADYCARDIA LOW QRS VOLTAGE IN PRECORDIAL LEADS [QRS DEFLECTION < 1.0 mV IN CHEST LEADS] POOR R-WAVE PROGRESSION LOW-VOLTAGE QRS ABNORMAL ECG WARNING: DATA QUALITY MAY AFFECT INTERPRETATION Compared to ECG 09/26/2023 20:28:13 JUNCTIONAL ESCAPE BEATS ARE NOT DEMONSTRATED Electronically Signed On 09-27-2023 15:03:04 CDT by Joshua Mederos M.D.
[2023-09-27 03:09] LABS: Glucose Point of Care 140 mg/dl (65-105)
[2023-09-27 03:12] LABS: Basophils Absolute Auto 0.1 K/mm3 (0.0-0.1); Basophils Percent Auto 1.5 % (0.2-1.2); Eosinophils Percent Auto 0.5 % (0-4.4); Hematocrit 23.9 % (37.0-47.0); Hemoglobin 7.3 g/dL (12.0-15.0); Immature Granulocyte Absolute 0.07 K/mm3 (0.00-0.031); Immature Granulocyte Percent A 0.9 % (0-0.5); Lymphocytes Absolute Auto 0.57 K/mm3 (0.9-3.2); Lymphocytes Percent Auto 7.2 % (18.3-44.2); Mean Corpuscular HGB Conc 30.5 g/dl (32-36); Mean Corpuscular Hemoglobin 30.4 pg (26-34); Mean Corpuscular Volume 99.6 fl (80-100); Monocytes Absolute Auto 0.7 K/mm3 (0.1-0.6); Monocytes Percent Auto 8.9 % (2.6-8.5); Neutrophils Absolute Auto 6.4 K/mm3 (1.3-6.7); Platelet Count Result 163 k/mm3 (150-375); Red Cell Distribution Width 17.4 % (11.5-14.5)
[2023-09-27 03:25] LABS: Estimated CRCL calculation 23 ml/min; Estimated Glomerular Filt Rate 18
[2023-09-27 03:31] LABS: Anion Gap 10 mmol/L (4-12); Blood Urea Nitrogen 57 mg/dL (7-17); Calcium 9.1 mg/dL (8.4-10.2); Carbon Dioxide 28 mmol/L (22-30); Chloride 95 mmol/L (98-107); Estimated CRCL calculation 23 ml/min; Estimated Glomerular Filt Rate 19; Glucose 136 mg/dL (65-110); Phosphorus 5.6 mg/dL (2.5-4.5); Potassium 4.5 mmol/L (3.4-5.0); Sodium 133 mmol/L (137-145)
[2023-09-27 04:54] LABS: Alveolar/Arterial O2 Gradient 30.9 mmHg; Base Excess ABG 3.2 mEq/l (+/-2.0); Fractional Inspired Oxygen 36 %; HCO3 ABG 29.5 mEq/l (22.0-26.0); Oxygen Content ABG 12.3 %vol (16.0-22.0); Oxygen Saturation ABG 98.9 % (95.0-100.0); Oxyhemoglobin 98.4 % THb (90.0-100.0); Total Hemoglobin 8.6 g/dL (12.0-18.0); pH ABG 7.347 (7.350-7.450)
[2023-09-27 04:56] LABS: Device NASAL CANNULA; Site Drawn ARTLINE
[2023-09-27] MEDS: CENTRAL LINE FLUSH 10 ML IV PUSH ×2 (05:19→20:09)
[2023-09-27 05:38] LABS: MRSA (PCR) NOT DETECTED (NOT DETECTE)
[2023-09-27 09:02] LABS: Glucose Point of Care 86 mg/dl (65-105)
--- NOTE | 2023-09-27 09:06 | WPDCNINT ---
Assessment and Plan Assessment and plan (1) Shock: Code(s): R57.9 - Shock, unspecified Status: Acute Assessment and Plan: Mixed shock likely secondary to sepsis and cardiogenic from bradycardia blood pressures improved and patient has been weaned off of vasopressors she did receive 3 L IV fluid bolus and IV fluids will be continued for another 24 hours at a cautious rate (2) Sepsis: Code(s): A41.9 - Sepsis, unspecified organism Status: Acute Assessment and Plan: sepsis secondary to UTI. Patient has history of UTI secondary to ESBL E coli continue meropenem patient received 1 dose of vancomycin and will hold further vancomycin light acute renal failure and negative nasal MRSA PCR blood and urine cultures have been sent and are pending CT scan reviewed and shows 2 mm nonobstructing right renal stone (3) Bradycardia: Code(s): R00.1 - Bradycardia, unspecified Status: Acute Assessment and Plan: patient has history of AFib and has episodes of bradycardia and junctional rhythm in the past she is on amiodarone and beta-isabelle which are now on hold. Hyperkalemia has been treated and potassium is normalized. Patient is now in sinus bradycardia. All continue to hold amiodarone and beta-blockers. Cardiology has been consulted. Continue telemetry monitoring. Patient does not need transvenous pacemaker or vasopressors at this time (4) Acute kidney injury superimposed on stage 3b chronic kidney disease: Code(s): N17.9 - Acute kidney failure, unspecified; N18.32 - Chronic kidney disease, stage 3b Status: Acute Assessment and Plan: presented with NESHA above and beyond CKD with patient's baseline creatinine ranging between 1.2-1.5 this is likely secondary to shock hypotension and bradycardia leading to hypoperfusion patient has received IV fluid bolus and will continue cautious IV fluids for another 24 hours blood pressure is improved patient has been weaned off vasopressors monitor urine output electrolytes and creatinine CT scan of shows 2 mm nonobstructing right renal stone and no hydronephrosis CK level was normal hyperkalemia has resolved with treatment - monitor (5) UTI (urinary tract infection): Code(s): N39.0 - Urinary tract infection, site not specified Status: Acute Assessment and Plan: see above (6) Encephalopathy: Code(s): G93.40 - Encephalopathy, unspecified Status: Acute Assessment and Plan: patient likely has toxic metabolic encephalopathy as she presented with hypotension and bradycardia. Her drug screen was also positive for opioids barbiturates and benzodiazepines. CT head was negative for any acute change overnight patient has become more arousable and now AO x3 ABG reviewed. I will continue to hold any sedatives (7) Diabetes mellitus with chronic kidney disease: Code(s): E11.22 - Type 2 diabetes mellitus with diabetic chronic kidney disease Status: Chronic Assessment and Plan: sliding scale insulin (8) Hypothyroidism (acquired): Code(s): E03.9 - Hypothyroidism, unspecified Status: Acute Assessment and Plan: patient has a mention of hypothyroidism in her past medical history in the chart but I do not see the patient is on Synthroid have TSH checked in was elevated but then repeat checked in May of 2023 was normal. TSH done last night was 13.9. Her free T4 is normal but feet T3 on last 2 checks his been low suggesting the patient be subclinical hypothyroidism at least. will give 50 mcg of Synthroid IV today and start patient on 100 mics of Synthroid p.o. from tomorrow morning. This is close to 50% of anticipated does the patient will need depending on her weight. Plan DVT prophylaxis - Eliquis Code Status - Full Code Total Critical Care Time - 40 minutes Due to a high probability of clinically significant, life threatening deterioration, t
[2023-09-27] MEDS: CARBIDOPA/LEVODOPA 25/100 MG TABLET 3 TABLET PO ×3 (09:23→16:57)
[2023-09-27] MEDS: allopurinoL 100 MG TABLET PO (09:23)
[2023-09-27] MEDS: FLUoxetine HCL 20 MG CAPSULE 40 MG PO ×2 (09:23→20:08)
[2023-09-27] MEDS: ATORVASTATIN 40 MG TABLET 80 MG PO (09:23)
[2023-09-27] MEDS: APIXABAN 2.5 MG TABLET PO ×2 (09:23→20:08)
[2023-09-27] MEDS: PRIMIDONE 50 MG TABLET PO ×2 (09:24→20:08)
[2023-09-27] MEDS: PANTOPRAZOLE 40 MG TABLET PO (09:24)
[2023-09-27] MEDS: ALBUTEROL SULFATE NEB 2.5 MG/3 ML INH 5 MG INHALATION ×3 (09:27→20:00)
[2023-09-27] MEDS: FLUTICASONE/SALMETEROL 115-21 MCG INHALER 1 PUFF 2 PUFF INHALATION ×2 (09:28→20:04)
[2023-09-27] MEDS: IPRATROPIUM BR 0.02% INH SOLN 0.5 MG/2.5 ML VIAL INHALATION ×3 (09:28→20:00)
[2023-09-27] MEDS: MEROPENEM 500 MG/NS 100 ML 500 MG/100 ML BAG 200 MG IVPB ×2 (09:29→20:17)
[2023-09-27] MEDS: LEVOTHYROXINE SODIUM INJ 100 MCG/5 ML VIAL 50 MCG IV PUSH (09:33)
[2023-09-27] MEDS: LACTATED RINGERS 1,000 ML 75 ML IV CONT ×2 (09:33→22:49)
[2023-09-27] MEDS: TOLNAFTATE 1% POWDER 45 GM BTL 1 APPLIC TOPICAL ×2 (09:35→20:08)
[2023-09-27 11:41] LABS: Glucose Point of Care 92 mg/dl (65-105)
[2023-09-27] MEDS: HYDROcodone/acetaminophen (*CRX) 5-325 MG TABLET 1 TAB PO ×2 (13:55→20:26)
--- NOTE | 2023-09-27 14:34 | PM.IMPN ---
Progress Note: A&P Assessment and Plan (1) Shock: Code(s): R57.9 - Shock, unspecified Status: Acute Assessment and Plan: Patient presents with weakness and found to have bradycardia with HR in the 30's. She received atropine in the field. In the ED, she was HoTN. She received 2 L fluid bolus but HoTN persisted so an additional 3 L was administered. BP remained low so central line placed and pressors started. EKG showing supraventricular bradycardia with low voltage and prolonged QT interval. Chest x-ray shows cardiomegaly right lower lobe airspace disease. In ICU, she was hypertensive so Levophed was discontinued. Shortly thereafter dopamine was also discontinued. Repeat EKG demonstrated sinus bradycardia with a rate of 44. UA is concerning for UTI. UCx and BCx collected. Zosyn and vancomycin started Switched to meropenem and vancomycin but MRSA screen was negative. Vanco stopped [place] related to sepsis and probably cardiogenic. Her resumed on her metoprolol which contributed to her symptoms. Monitor. (2) Sepsis: Code(s): A41.9 - Sepsis, unspecified organism Status: Acute Assessment and Plan: Sepsis secondary to UTI. Patient has history of UTI secondary to ESBL E coli CT scan reviewed and shows 2 mm nonobstructing right renal stone Cultures obtained. Meropenem started Patient received 1 dose of vancomycin. MRSA nasal swab negative so Vanco stopped. Follow up on culture results. (3) Bradycardia: Code(s): R00.1 - Bradycardia, unspecified Status: Acute Assessment and Plan: Patient has history of AFib and with episodes of bradycardia and junctional rhythm in the past. Echo 09/08 showing normal LV size with mild concentric LVH and normal systolic function with mild valvular disease. She is on amiodarone last hospitalization but metoprolol held. Metoprolol was held at discharge and at [facility]. Instructions from [facility] were to hold metoprolol but did give her metoprolol. Also noted to have developed NESHA with hyperkalemia. Bradycardia related to medications and electrolyte disturbance. Metoprolol and Amio on hold now. Patient is now in sinus bradycardia. Continue to hold amiodarone and beta-blockers. Cardiology has been consulted. Continue telemetry monitoring. Patient does not need transvenous pacemaker or vasopressors at this time (4) Acute kidney injury superimposed on stage 3b chronic kidney disease: Code(s): N17.9 - Acute kidney failure, unspecified; N18.32 - Chronic kidney disease, stage 3b Status: Acute Assessment and Plan: Patient with NESHA last admission with Cr 1.2-1.5 range around the time of discharge. Cr 2 at time of discharge from [facility] and was 2.7 on admission now. Also with hyperkalemia with potassium 5.4 but normal now. NESHA from bradycardia, HoTN and sepsis. Patient received IV fluid as mentioned above. BP and HR better controlled. CT scan of shows 2 mm nonobstructing right renal stone and no hydronephrosis CK level was normal Cr trending down. Monitor UOP, electrolytes and renal fxn. (5) UTI (urinary tract infection): Code(s): N39.0 - Urinary tract infection, site not specified Status: Acute Assessment and Plan: As above (6) Encephalopathy: Code(s): G93.40 - Encephalopathy, unspecified Status: Acute Assessment and Plan: Patient likely has toxic metabolic encephalopathy as she presented with hypotension and bradycardia. Her drug screen was also positive for opioids, barbiturates and benzodiazepines felt related to her home meds. CT head was negative for any acute change Patient more awake and alert. Follow (7) Diabetes mellitus with chronic kidney disease: Code(s): E11.22 - Type 2 diabetes mellitus with diabetic chronic kidney disease Status: Chronic Assessment and Plan: A1c 7.4. The patient's blood glucose was reviewed on 09/26 Glucose remains
[2023-09-27 16:44] LABS: Glucose Point of Care 105 mg/dl (65-105)
[2023-09-27] MEDS: rOPINIRole HCL 0.5 MG TABLET PO (16:58)
[2023-09-27 20:04] LABS: Glucose Point of Care 125 mg/dl (65-105)
[2023-09-27] MEDS: diphenhydrAMINE HCl CAP 25 MG CAPSULE PO (22:48)
--- NOTE | 2023-09-27 23:15 | ECG_ITS ---
Test Date: 2023-09-27 23:20:30 Measurements Intervals [place] Rate: 89 P: 76 CT: 187 QRS: 14 QRSD: 96 T: 59 QT: 342 QTc: 417 Interpretive Statements SINUS RHYTHM LOW QRS VOLTAGE IN PRECORDIAL LEADS [QRS DEFLECTION < 1.0 mV IN CHEST LEADS] Compared to ECG 09/27/2023 02:47:11 POOR R-WAVE PROGRESSION ABNORMAL ECG COMPARED WITH EARLIER TODAY HEART RATE IS INCREASED, NO OTHER SIGNIFICANT CHANGE Electronically Signed On 09-28-2023 09:34:53 CDT by Joshua Mederos M.D.
[2023-09-28] VITALS (23 sets, daily range): BP systolic 116–176; BP diastolic 34–59; PULSE 51–93; RESP 12–22; TEMP 36.3–37.7; O2SAT 51–100
[2023-09-28 01:08] LABS: Anion Gap 11 mmol/L (4-12); Blood Urea Nitrogen 48 mg/dL (7-17); Calcium 9.7 mg/dL (8.4-10.2); Carbon Dioxide 28 mmol/L (22-30); Chloride 94 mmol/L (98-107); Estimated CRCL calculation 28 ml/min; Estimated Glomerular Filt Rate 23; Glucose 172 mg/dL (65-110); Potassium 4.4 mmol/L (3.4-5.0); Sodium 133 mmol/L (137-145)
[2023-09-28] MEDS: MAGNESIUM HYDROXIDE SUSP 30 ML UDC PO (01:50)
[2023-09-28] MEDS: diphenhydrAMINE HCl CAP 25 MG CAPSULE PO ×2 (01:50→10:53)
[2023-09-28 02:37] LABS: Vancomycin Trough 12.4 ug/mL (10.0-20.0)
[2023-09-28] MEDS: LEVOTHYROXINE SODIUM 100 MCG TABLET PO (06:19)
[2023-09-28] MEDS: CENTRAL LINE FLUSH 10 ML IV PUSH ×2 (06:19→12:25)
[2023-09-28] MEDS: ACETAMINOPHEN 325 MG TABLET 650 MG PO (06:25)
[2023-09-28 07:04] LABS: Hematocrit 23.3 % (37.0-47.0); Hemoglobin 7.2 g/dL (12.0-15.0); Immature Platelet Fraction Pct 12.3 % (0.9-11.2); Mean Corpuscular HGB Conc 30.9 g/dl (32-36); Mean Corpuscular Hemoglobin 30.9 pg (26-34); Mean Platelet Volume 13.5 fl (7.4-10.4); Platelet Count Result 139 k/mm3 (150-375); Red Blood Count 2.33 M/mm3 (4.2-5.4); Red Cell Distribution Width 17.3 % (11.5-14.5); White Blood Count 9.9 K/mm3 (4.5-10.0)
[2023-09-28 07:12] LABS: Alanine Aminotransferase 16 U/L (6-35); Albumin Level 3.6 g/dL (3.5-5.1); Alkaline Phosphatase 100 U/L (38-126); Anion Gap 6 mmol/L (4-12); Aspartate Amino Transferase 17 U/L (14-36); Bilirubin,Total 0.4 mg/dL (0.2-1.3); Blood Urea Nitrogen 46 mg/dL (7-17); Calcium 9.3 mg/dL (8.4-10.2); Carbon Dioxide 33 mmol/L (22-30); Chloride 95 mmol/L (98-107); Estimated CRCL calculation 30 ml/min; Estimated Glomerular Filt Rate 24; Glucose 99 mg/dL (65-110); Magnesium 2.1 mg/dL (1.6-2.3); Phosphorus 4.4 mg/dL (2.5-4.5); Potassium 4.6 mmol/L (3.4-5.0); Sodium 134 mmol/L (137-145)
[2023-09-28] MEDS: IPRATROPIUM BR 0.02% INH SOLN 0.5 MG/2.5 ML VIAL INHALATION ×2 (08:12→13:46)
[2023-09-28] MEDS: FLUTICASONE/SALMETEROL 115-21 MCG INHALER 1 PUFF 2 PUFF INHALATION (08:13)
[2023-09-28] MEDS: ALBUTEROL SULFATE NEB 2.5 MG/3 ML INH 5 MG INHALATION ×2 (08:17→13:46)
[2023-09-28 08:18] LABS: Glucose Point of Care 104 mg/dl (65-105)
[2023-09-28] MEDS: allopurinoL 100 MG TABLET PO (08:19)
[2023-09-28] MEDS: PANTOPRAZOLE 40 MG TABLET PO (08:19)
[2023-09-28] MEDS: APIXABAN 2.5 MG TABLET PO ×2 (08:19→20:27)
[2023-09-28] MEDS: FLUoxetine HCL 20 MG CAPSULE 40 MG PO ×2 (08:19→20:26)
[2023-09-28] MEDS: CARBIDOPA/LEVODOPA 25/100 MG TABLET 3 TABLET PO ×3 (08:19→17:05)
[2023-09-28] MEDS: ATORVASTATIN 40 MG TABLET 80 MG PO (08:19)
[2023-09-28] MEDS: PRIMIDONE 50 MG TABLET PO ×2 (08:20→20:27)
[2023-09-28] MEDS: TOLNAFTATE 1% POWDER 45 GM BTL 1 APPLIC TOPICAL ×2 (08:20→20:38)
[2023-09-28] MEDS: HYDROcodone/acetaminophen (*CRX) 5-325 MG TABLET 1 TAB PO ×2 (08:30→23:54)
[2023-09-28] MEDS: MEROPENEM 500 MG/NS 100 ML 500 MG/100 ML BAG 200 MG IVPB ×2 (08:33→20:33)
--- NOTE | 2023-09-28 09:35 | WPDINTPN ---
Progress Note: A&P Assessment and Plan (1) Shock: Code(s): R57.9 - Shock, unspecified Status: Acute Assessment and Plan: Mixed shock likely secondary to sepsis and cardiogenic from bradycardia blood pressures improved and patient has been weaned off of vasopressors since yesterday she did receive 3 L IV fluid bolus and IV fluids over last 24 hours at a cautious rate. Will discontinue further IV fluids will discontinue A-line hold antihypertensives at this time monitor (2) Sepsis: Code(s): A41.9 - Sepsis, unspecified organism Status: Acute Assessment and Plan: sepsis secondary to UTI. Patient has history of UTI secondary to ESBL E coli urine cultures growing Enterococcus. Susceptibilities are pending continue meropenem patient received 1 dose of vancomycin and will hold further vancomycin light acute renal failure and negative nasal MRSA PCR CT scan reviewed and shows 2 mm nonobstructing right renal stone (3) Bradycardia: Code(s): R00.1 - Bradycardia, unspecified Status: Acute Assessment and Plan: patient has history of AFib and has episodes of bradycardia and junctional rhythm in the past she is on amiodarone and beta-isabelle which are now on hold. Hyperkalemia has been treated and potassium is normalized. Patient is now in sinus bradycardia. All continue to hold amiodarone and beta-blockers. Cardiology has been consulted. Continue telemetry monitoring. improved and patient is in sinus [place] in 60s this time (4) Acute kidney injury superimposed on stage 3b chronic kidney disease: Code(s): N17.9 - Acute kidney failure, unspecified; N18.32 - Chronic kidney disease, stage 3b Status: Acute Assessment and Plan: presented with NESHA above and beyond CKD with patient's baseline creatinine ranging between 1.2-1.5 this is likely secondary to shock hypotension and bradycardia leading to hypoperfusion creatinine improved to 2.0. patient has received IV fluid bolus and will Now hold further IV fluids blood pressure is improved patient has been weaned off vasopressors monitor urine output electrolytes and creatinine CT scan of shows 2 mm nonobstructing right renal stone and no hydronephrosis CK level was normal hyperkalemia has resolved with treatment - monitor (5) UTI (urinary tract infection): Code(s): N39.0 - Urinary tract infection, site not specified Status: Acute Assessment and Plan: see above (6) Encephalopathy: Code(s): G93.40 - Encephalopathy, unspecified Status: Acute Assessment and Plan: patient likely has toxic metabolic encephalopathy as she presented with hypotension and bradycardia. Her drug screen was also positive for opioids barbiturates and benzodiazepines. CT head was negative for any acute change overnight patient has become more arousable and now AO x3 ABG reviewed. patient now appears at baseline. I will continue to hold any Nonessential sedatives (7) Diabetes mellitus with chronic kidney disease: Code(s): E11.22 - Type 2 diabetes mellitus with diabetic chronic kidney disease Status: Chronic Assessment and Plan: sliding scale insulin (8) Hypothyroidism (acquired): Code(s): E03.9 - Hypothyroidism, unspecified Status: Acute Assessment and Plan: patient has a mention of hypothyroidism in her past medical history in the chart but I do not see the patient is on Synthroid have TSH checked in was elevated but then repeat checked in May of 2023 was normal. TSH done last night was 13.9. Her free T4 is normal but feet T3 on last 2 checks his been low suggesting the patient be subclinical hypothyroidism at least. will give 50 mcg of Synthroid IV today and start patient on 100 mics of Synthroid p.o. from tomorrow morning. This is close to 50% of anticipated does the patient will need depending on her weight. Plan DVT prophylaxis - [place]
[2023-09-28 12:06] LABS: Glucose Point of Care 114 mg/dl (65-105)
--- NOTE | 2023-09-28 15:12 | PM.IMPN ---
Progress Note: A&P Assessment and Plan (1) Shock: Code(s): R57.9 - Shock, unspecified Status: Acute Assessment and Plan: Patient presents with weakness and found to have bradycardia with HR in the 30's. She received atropine in the field. In the ED, she was HoTN. She received 3L fluid bolus but HoTN persisted so central line placed and pressors started. EKG showing supraventricular bradycardia with low voltage and prolonged QT interval. Chest x-ray shows cardiomegaly and right lower lobe airspace disease. In ICU, she was hypertensive so Levophed was discontinued. Shortly thereafter dopamine was also discontinued. Repeat EKG demonstrated sinus bradycardia with a rate of 44. UA is concerning for UTI. UCx and BCx collected. Zosyn and vancomycin started Switched to meropenem and vancomycin but MRSA screen was negative so Vanco stopped. Central line removed today. Arterial line had been placed for more accurate reading but this has since been removed as well. [place] related to sepsis and probably cardiogenic. Her resumed the patient's metoprolol despite being held at discharge which contributed to her symptoms. Monitor on tele. (2) Sepsis: Code(s): A41.9 - Sepsis, unspecified organism Status: Acute Assessment and Plan: Sepsis secondary to UTI. Patient has history of UTI secondary to ESBL E coli CT scan reviewed and shows 2 mm nonobstructing right renal stone Cultures obtained. Meropenem started Patient received 1 dose of vancomycin. MRSA nasal swab negative so Vanco stopped. BCx NGTD UCx growing 10-49K enterococcus Follow up on culture results. (3) Bradycardia: Code(s): R00.1 - Bradycardia, unspecified Status: Acute Assessment and Plan: Patient has history of AFib and with episodes of bradycardia and junctional rhythm in the past. Echo 09/08 showing normal LV size with mild concentric LVH and normal systolic function with mild valvular disease. She was on amiodarone last hospitalization but metoprolol held. Metoprolol was held at discharge and at [facility]. Instructions from [facility] were to hold metoprolol but did give her metoprolol prior to admission. Also noted to have developed NESHA with hyperkalemia. Bradycardia related to medications and electrolyte disturbance. Metoprolol and Amio on hold now. Patient is now in sinus bradycardia. Continue to hold amiodarone and beta-blockers. Cardiology has been consulted. Continue telemetry monitoring. Patient does not need transvenous pacemaker or vasopressors at this time (4) Acute kidney injury superimposed on stage 3b chronic kidney disease: Code(s): N17.9 - Acute kidney failure, unspecified; N18.32 - Chronic kidney disease, stage 3b Status: Acute Assessment and Plan: Patient with NESHA last admission with Cr 1.2-1.5 range around the time of discharge. Cr 2 at time of discharge from [facility] and was 2.7 on admission now. Also with hyperkalemia with potassium 5.4 but normal now. NESHA from bradycardia, HoTN and sepsis. Patient received IV fluid as mentioned above. BP and HR better controlled. CT scan of shows 2 mm nonobstructing right renal stone and no hydronephrosis CK level was normal Cr trending down. Monitor UOP, electrolytes and renal fxn. (5) UTI (urinary tract infection): Code(s): N39.0 - Urinary tract infection, site not specified Status: Acute Assessment and Plan: As above (6) Encephalopathy: Code(s): G93.40 - Encephalopathy, unspecified Status: Acute Assessment and Plan: Patient likely has toxic metabolic encephalopathy as she presented with hypotension and bradycardia. Her drug screen was also positive for opioids, barbiturates and benzodiazepines felt related to her home meds. CT head was negative for any acute change Patient more awake and alert. Follow (7) Diabetes mellitus with chronic kidney disease: Code(s): E11.22 - Type
[2023-09-28] MEDS: PROMETHAZINE HCL 12.5 MG TABLET PO ×2 (15:52→20:27)
[2023-09-28 17:09] LABS: Glucose Point of Care 118 mg/dl (65-105)
--- NOTE | 2023-09-28 18:57 | PC.NURSE ---
This patient, Jenni Rondon, was transferred to [ [id number]] on 09/28/23 at 1815. Personal belongings sent with patient. Appropriate documentation sent with patient.
[2023-09-28] MEDS: ALPRAZolam (*CRX) 0.5 MG TABLET PO (20:27)
[2023-09-28] MEDS: rOPINIRole HCL 0.5 MG TABLET PO (20:27)
[2023-09-28 20:39] LABS: Glucose Point of Care 94 mg/dl (65-105)
[2023-09-28] MEDS: diphenhydrAMINE HCl CAP 25 MG CAPSULE 50 MG PO (23:55)
[2023-09-28] MEDS: TRIAMCINOLONE ACET 0.1% CREAM 15 GM TUBE 1 APPLIC TOPICAL (23:55)
[2023-09-29] VITALS (30 sets, daily range): BP systolic 107–174; BP diastolic 54–100; PULSE 52–74; RESP 14–22; TEMP 36.1–37; O2SAT 95–100
[2023-09-29] MEDS: ALBUTEROL SULFATE NEB 2.5 MG/3 ML INH 5 MG INHALATION ×4 (02:28→19:15)
[2023-09-29 03:38] LABS: Hematocrit 22.4 % (37.0-47.0); Mean Corpuscular HGB Conc 30.8 g/dl (32-36); Mean Corpuscular Hemoglobin 31.1 pg (26-34); Mean Corpuscular Volume 100.9 fl (80-100); Mean Platelet Volume 12.4 fl (7.4-10.4); Platelet Count Result 133 k/mm3 (150-375); Red Blood Count 2.22 M/mm3 (4.2-5.4); Red Cell Distribution Width 17.5 % (11.5-14.5); White Blood Count 7.8 K/mm3 (4.5-10.0)
[2023-09-29 03:48] LABS: Alanine Aminotransferase 16 U/L (6-35); Albumin Level 3.8 g/dL (3.5-5.1); Alkaline Phosphatase 101 U/L (38-126); Anion Gap 7 mmol/L (4-12); Aspartate Amino Transferase 16 U/L (14-36); Bilirubin,Total 0.4 mg/dL (0.2-1.3); Blood Urea Nitrogen 39 mg/dL (7-17); Calcium 9.4 mg/dL (8.4-10.2); Carbon Dioxide 31 mmol/L (22-30); Chloride 97 mmol/L (98-107); Estimated CRCL calculation 33 ml/min; Estimated Glomerular Filt Rate 28; Glucose 120 mg/dL (65-110); Hemoglobin 6.9 g/dL (12.0-15.0); Magnesium 2.2 mg/dL (1.6-2.3); Phosphorus 3.5 mg/dL (2.5-4.5); Potassium 4.5 mmol/L (3.4-5.0); Sodium 135 mmol/L (137-145)
[2023-09-29] MEDS: LEVOTHYROXINE SODIUM 100 MCG TABLET PO (05:55)
[2023-09-29] MEDS: PROMETHAZINE HCL 12.5 MG TABLET PO (05:55)
[2023-09-29 06:55] LABS: Glucose Point of Care 115 mg/dl (65-105)
[2023-09-29] MEDS: IPRATROPIUM BR 0.02% INH SOLN 0.5 MG/2.5 ML VIAL INHALATION ×3 (08:21→18:15)
[2023-09-29] MEDS: FLUTICASONE/SALMETEROL 115-21 MCG INHALER 1 PUFF 2 PUFF INHALATION ×2 (08:24→19:15)
[2023-09-29] MEDS: allopurinoL 100 MG TABLET PO (08:30)
[2023-09-29] MEDS: PRIMIDONE 50 MG TABLET PO ×2 (08:30→21:02)
[2023-09-29] MEDS: CARBIDOPA/LEVODOPA 25/100 MG TABLET 3 TABLET PO ×3 (08:30→17:20)
[2023-09-29] MEDS: ATORVASTATIN 40 MG TABLET 80 MG PO (08:30)
[2023-09-29] MEDS: polyethylene glycoL 3350 17 GM POWD.PACK PO (08:30)
[2023-09-29] MEDS: FLUoxetine HCL 20 MG CAPSULE 40 MG PO ×2 (08:30→21:02)
[2023-09-29] MEDS: TOLNAFTATE 1% POWDER 45 GM BTL 1 APPLIC TOPICAL ×2 (08:31→21:03)
[2023-09-29] MEDS: PANTOPRAZOLE 40 MG TABLET PO (08:31)
[2023-09-29] MEDS: ALPRAZolam (*CRX) 0.5 MG TABLET PO ×2 (08:35→21:03)
[2023-09-29] MEDS: TUBING, BLOOD PLUM PUMP TUBING 1 EACH XX (08:36)
[2023-09-29] MEDS: SODIUM CHLORIDE 0.9% IV 250 ML 30 ML IV CONT (08:37)
[2023-09-29] MEDS: MEROPENEM 500 MG/NS 100 ML 500 MG/100 ML BAG 200 MG IVPB (08:39)
[2023-09-29 11:53] LABS: Glucose Point of Care 123 mg/dl (65-105)
--- NOTE | 2023-09-29 14:12 | PM.IMPN ---
Progress Note: A&P Assessment and Plan (1) Shock: Code(s): R57.9 - Shock, unspecified Status: Acute Assessment and Plan: Patient presents with weakness and found to have bradycardia with HR in the 30's. She received atropine in the field. In the ED, she was HoTN. She received 3L fluid bolus but HoTN persisted so central line placed and pressors started. EKG showing supraventricular bradycardia with low voltage and prolonged QT interval. Chest x-ray shows cardiomegaly and right lower lobe airspace disease. In ICU, she was hypertensive so Levophed was discontinued. Shortly thereafter dopamine was also discontinued. Repeat EKG demonstrated sinus bradycardia with a rate of 44. UA is concerning for UTI. UCx and BCx collected. Zosyn and vancomycin started Switched to meropenem and vancomycin but MRSA screen was negative so Vanco stopped. Central line removed today. Arterial line had been placed for more accurate reading but this has since been removed as well. [place] related to sepsis and probably cardiogenic from patient receiving inappropriate medicatios. Her resumed the patient's metoprolol and other meds despite being held at discharge from [facility] which contributed to her symptoms. Monitor on tele. (2) Sepsis: Code(s): A41.9 - Sepsis, unspecified organism Status: Acute Assessment and Plan: Sepsis vs SIRS. Patient has history of UTI secondary to ESBL E coli CT scan reviewed and shows 2 mm nonobstructing right renal stone Cultures obtained. Abx as mentioned above BCx NGTD UCx growing 10-49K VRE. UA showing 3+ LE, >100 WBC with many squamous epith cells. Suspect this is more contaminate then todd infection Stop abx and monitor (3) Anemia: Qualifiers: Anemia type: due to chronic kidney disease Chronic kidney disease stage: stage 4 (severe) Qualified Code(s): N18.4 - Chronic kidney disease, stage 4 (severe); D63.1 - Anemia in chronic kidney disease Code(s): D64.9 - Anemia, unspecified Status: Acute Assessment and Plan: Patient with chronic anemia with hemoglobin running 7-8 range. Hemoglobin dropped to 6.9 today and she was transfused 1 unit of packed red blood cells. Anticoagulation was stopped No evidence acute blood loss. Could be related to anemia of chronic disease/renal dysfunction Monitor H&H closely (4) Bradycardia: Code(s): R00.1 - Bradycardia, unspecified Status: Acute Assessment and Plan: Patient has history of AFib and with episodes of bradycardia and junctional rhythm in the past. Echo 09/08 showing normal LV size with mild concentric LVH and normal systolic function with mild valvular disease. She was on amiodarone but metoprolol held during the last hospitalization and at discharge. Metoprolol was also held at [facility]. Instructions from [facility] were to hold metoprolol but did give her metoprolol prior to admission. Also noted to have developed NESHA with hyperkalemia. Bradycardia related to medications and electrolyte disturbance. Metoprolol and Amio on hold now. Patient is now in sinus bradycardia. Patient does not need transvenous pacemaker or vasopressors at this time Continue to hold amiodarone and beta-blockers. Cardiology has been consulted. Continue telemetry monitoring. (5) Acute kidney injury superimposed on stage 3b chronic kidney disease: Code(s): N17.9 - Acute kidney failure, unspecified; N18.32 - Chronic kidney disease, stage 3b Status: Acute Assessment and Plan: Patient with NESHA last admission with Cr 1.2-1.5 range around the time of discharge. Cr 2 at time of discharge from [facility] and was 2.7 on admission now. Also with hyperkalemia with potassium 5.4 but normal now. NESHA from bradycardia, HoTN and sepsis. Patient received IV fluid as mentioned above. BP and HR better controlled. CT scan of shows 2 mm nonobstructing right renal stone and no hydronephrosis CK level was normal. Cr trending do
[2023-09-29 15:48] LABS: Hematocrit 25.1 % (37.0-47.0); Hemoglobin 7.8 g/dL (12.0-15.0)
[2023-09-29 16:56] LABS: Glucose Point of Care 121 mg/dl (65-105)
[2023-09-29] MEDS: ACETAMINOPHEN 325 MG TABLET 650 MG PO (17:23)
[2023-09-29] MEDS: SALINE 0.65% NAS SOLN 44 ML BTL 1 SPRAY NASAL (18:37)
[2023-09-29 19:59] LABS: Glucose Point of Care 108 mg/dl (65-105)
[2023-09-29] MEDS: rOPINIRole HCL 0.5 MG TABLET PO (21:03)
[2023-09-30] VITALS (24 sets, daily range): BP systolic 116–182; BP diastolic 58–89; PULSE 49–72; RESP 18–26; TEMP 36.3–37; O2SAT 93–100
[2023-09-30] MEDS: ALBUTEROL SULFATE NEB 2.5 MG/3 ML INH 5 MG INHALATION ×4 (01:04→19:27)
[2023-09-30] MEDS: IPRATROPIUM BR 0.02% INH SOLN 0.5 MG/2.5 ML VIAL INHALATION ×4 (01:04→19:27)
[2023-09-30 04:35] LABS: Hematocrit 25.9 % (37.0-47.0); Immature Platelet Fraction Pct 12.8 % (0.9-11.2); Mean Corpuscular HGB Conc 30.9 g/dl (32-36); Mean Corpuscular Volume 100.4 fl (80-100); Mean Platelet Volume 13.6 fl (7.4-10.4); Platelet Count Result 132 k/mm3 (150-375); Red Blood Count 2.58 M/mm3 (4.2-5.4); Red Cell Distribution Width 17.3 % (11.5-14.5); White Blood Count 7.3 K/mm3 (4.5-10.0)
[2023-09-30 04:55] LABS: Alanine Aminotransferase 15 U/L (6-35); Alkaline Phosphatase 108 U/L (38-126); Anion Gap 8 mmol/L (4-12); Aspartate Amino Transferase 18 U/L (14-36); Bilirubin,Total 0.6 mg/dL (0.2-1.3); Blood Urea Nitrogen 29 mg/dL (7-17); Calcium 9.6 mg/dL (8.4-10.2); Carbon Dioxide 29 mmol/L (22-30); Chloride 99 mmol/L (98-107); Estimated CRCL calculation 42 ml/min; Estimated Glomerular Filt Rate 37; Glucose 95 mg/dL (65-110); Magnesium 2.2 mg/dL (1.6-2.3); Phosphorus 2.9 mg/dL (2.5-4.5); Potassium 4.3 mmol/L (3.4-5.0); Sodium 136 mmol/L (137-145)
[2023-09-30] MEDS: LEVOTHYROXINE SODIUM 50 MCG TABLET PO (05:21)
[2023-09-30] MEDS: ALPRAZolam (*CRX) 0.5 MG TABLET PO ×3 (05:21→20:47)
[2023-09-30 06:51] LABS: Glucose Point of Care 106 mg/dl (65-105)
[2023-09-30] MEDS: FLUTICASONE/SALMETEROL 115-21 MCG INHALER 1 PUFF 2 PUFF INHALATION ×2 (07:05→19:28)
[2023-09-30] MEDS: FLUoxetine HCL 20 MG CAPSULE 40 MG PO ×2 (08:42→20:46)
[2023-09-30] MEDS: ATORVASTATIN 40 MG TABLET 80 MG PO (08:42)
[2023-09-30] MEDS: CARBIDOPA/LEVODOPA 25/100 MG TABLET 3 TABLET PO ×3 (08:42→16:41)
[2023-09-30] MEDS: TOLNAFTATE 1% POWDER 45 GM BTL 1 APPLIC TOPICAL ×2 (08:43→20:47)
[2023-09-30] MEDS: PRIMIDONE 50 MG TABLET PO ×2 (08:43→20:46)
[2023-09-30] MEDS: allopurinoL 100 MG TABLET PO (08:43)
[2023-09-30] MEDS: PANTOPRAZOLE 40 MG TABLET PO (08:43)
[2023-09-30 11:36] LABS: Glucose Point of Care 120 mg/dl (65-105)
[2023-09-30] MEDS: ACETAMINOPHEN 325 MG TABLET 650 MG PO ×2 (11:44→20:46)
--- NOTE | 2023-09-30 15:21 | PM.IMPN ---
Progress Note: A&P Assessment and Plan (1) Shock: Code(s): R57.9 - Shock, unspecified Status: Acute Assessment and Plan: Patient presents with weakness and found to have bradycardia with HR in the 30's. She received atropine in the field. In the ED, she was HoTN. She received 3L fluid bolus but HoTN persisted so central line placed and pressors started. EKG showing supraventricular bradycardia with low voltage and prolonged QT interval. Chest x-ray shows cardiomegaly and right lower lobe airspace disease. In ICU, she was hypertensive so Levophed was discontinued. Shortly thereafter dopamine was also discontinued. Repeat EKG demonstrated sinus bradycardia with a rate of 44. UA is concerning for UTI. UCx and BCx collected. Zosyn and vancomycin started Switched to meropenem and vancomycin but MRSA screen was negative so Vanco stopped. Central line removed. Arterial line had been placed for more accurate reading but this was removed as well. [place] related to sepsis and probably cardiogenic from patient receiving inappropriate medications. Her resumed the patient's metoprolol and other meds despite being held at discharge from [facility] which contributed to her symptoms. He was educated about reviewing discharge sheets before dispensing patient's medications. Monitor on tele. (2) Sepsis: Code(s): A41.9 - Sepsis, unspecified organism Status: Acute Assessment and Plan: Sepsis vs SIRS. Patient has history of UTI secondary to ESBL E coli CT scan reviewed and shows 2 mm nonobstructing right renal stone Cultures obtained. Abx as mentioned above BCx NGTD UCx growing 10-49K VRE. UA showing 3+ LE, >100 WBC with many squamous epith cells. Suspect this is more contaminate then true infection Abx stopped. Continue to monitor (3) Anemia: Qualifiers: Anemia type: due to chronic kidney disease Chronic kidney disease stage: stage 4 (severe) Qualified Code(s): N18.4 - Chronic kidney disease, stage 4 (severe); D63.1 - Anemia in chronic kidney disease Code(s): D64.9 - Anemia, unspecified Status: Acute Assessment and Plan: Patient with chronic anemia with hemoglobin running 7-8 range. Hemoglobin dropped to 6.9 /18 and she was transfused 1 unit of packed red blood cells. Anticoagulation was stopped No evidence acute blood loss. Could be related to anemia of chronic disease/renal dysfunction Colonoscopy Feb 2022 showing diverticulosis. HH stable today. Monitor H&H closely. Resume Eliquis tomorrow if HH remains stable (4) Bradycardia: Code(s): R00.1 - Bradycardia, unspecified Status: Acute Assessment and Plan: Patient has history of AFib and with episodes of bradycardia and junctional rhythm in the past. Echo 09/08 showing normal LV size with mild concentric LVH and normal systolic function with mild valvular disease. She was on amiodarone but metoprolol held during the last hospitalization and at discharge. Metoprolol was also held at [facility]. Instructions from [facility] were to hold metoprolol but did give her metoprolol prior to admission. Also noted to have developed NESHA with hyperkalemia. Bradycardia related to medications and electrolyte disturbance. Metoprolol and Amio on hold now. Patient is now in sinus bradycardia. Patient does not need transvenous pacemaker or vasopressors at this time Continue to hold amiodarone and beta-blockers. Continue telemetry monitoring. (5) Acute kidney injury superimposed on stage 3b chronic kidney disease: Code(s): N17.9 - Acute kidney failure, unspecified; N18.32 - Chronic kidney disease, stage 3b Status: Acute Assessment and Plan: Patient with NESHA last admission with Cr 1.2-1.5 range around the time of discharge. Cr 2 at time of discharge from [facility] and was 2.7 on admission now. Also with hyperkalemia with potassium 5.4 but normal now. NESHA from bradycardia, HoTN and sepsis. Patient received IV fluid
[2023-09-30 16:28] LABS: Glucose Point of Care 131 mg/dl (65-105)
[2023-09-30] MEDS: BUMETANIDE 1 MG TABLET PO (16:42)
[2023-09-30] MEDS: HYDROcodone/acetaminophen (*CRX) 5-325 MG TABLET 1 TAB PO (16:43)
--- NOTE | 2023-09-30 17:59 | PC.NURSE ---
This patient, Jenni Rondon, was transferred to [ 248] on 09/30/23 at 1759. Personal belongings sent with patient. Report given to KODI Pham @ [phone][ ]. Appropriate documentation sent with patient.
[2023-09-30] MEDS: rOPINIRole HCL 0.5 MG TABLET PO (20:47)
[2023-10-01] VITALS (10 sets, daily range): BP systolic 154–173; BP diastolic 67–84; PULSE 48–68; RESP 18–20; TEMP 36.4–36.5; O2SAT 93–98
[2023-10-01 00:51] LABS: Glucose Point of Care 108 mg/dl (65-105)
[2023-10-01] MEDS: HYDROcodone/acetaminophen (*CRX) 5-325 MG TABLET 1 TAB PO (04:35)
[2023-10-01] MEDS: LEVOTHYROXINE SODIUM 50 MCG TABLET PO (05:35)
[2023-10-01 05:56] LABS: Hematocrit 26.3 % (37.0-47.0); Hemoglobin 8.2 g/dL (12.0-15.0); Mean Corpuscular HGB Conc 31.2 g/dl (32-36); Mean Corpuscular Hemoglobin 31.5 pg (26-34); Mean Corpuscular Volume 101.2 fl (80-100); Mean Platelet Volume 12.7 fl (7.4-10.4); Platelet Count Result 133 k/mm3 (150-375); Red Cell Distribution Width 17.1 % (11.5-14.5); White Blood Count 6.5 K/mm3 (4.5-10.0)
[2023-10-01 06:08] LABS: Alanine Aminotransferase 14 U/L (6-35); Alkaline Phosphatase 104 U/L (38-126); Anion Gap 10 mmol/L (4-12); Aspartate Amino Transferase 18 U/L (14-36); Bilirubin,Total 0.7 mg/dL (0.2-1.3); Blood Urea Nitrogen 23 mg/dL (7-17); Calcium 9.6 mg/dL (8.4-10.2); Carbon Dioxide 28 mmol/L (22-30); Chloride 98 mmol/L (98-107); Estimated CRCL calculation 45 ml/min; Estimated Glomerular Filt Rate 40; Glucose 98 mg/dL (65-110); Magnesium 1.9 mg/dL (1.6-2.3); Phosphorus 3.3 mg/dL (2.5-4.5); Potassium 4.4 mmol/L (3.4-5.0); Sodium 136 mmol/L (137-145)
[2023-10-01] MEDS: FLUTICASONE/SALMETEROL 115-21 MCG INHALER 1 PUFF 2 PUFF INHALATION (07:55)
[2023-10-01] MEDS: IPRATROPIUM BR 0.02% INH SOLN 0.5 MG/2.5 ML VIAL INHALATION ×2 (07:57→13:21)
[2023-10-01] MEDS: ALBUTEROL SULFATE NEB 2.5 MG/3 ML INH 5 MG INHALATION ×2 (07:57→13:21)
[2023-10-01] MEDS: CARBIDOPA/LEVODOPA 25/100 MG TABLET 3 TABLET PO ×2 (08:19→13:46)
[2023-10-01] MEDS: allopurinoL 100 MG TABLET PO (08:19)
[2023-10-01] MEDS: BUMETANIDE 1 MG TABLET PO (08:19)
[2023-10-01] MEDS: APIXABAN 2.5 MG TABLET PO (08:19)
[2023-10-01] MEDS: ATORVASTATIN 40 MG TABLET 80 MG PO (08:19)
[2023-10-01] MEDS: PANTOPRAZOLE 40 MG TABLET PO (08:20)
[2023-10-01] MEDS: PRIMIDONE 50 MG TABLET PO (08:20)
[2023-10-01] MEDS: FLUoxetine HCL 20 MG CAPSULE 40 MG PO (08:20)
[2023-10-01] MEDS: ALPRAZolam (*CRX) 0.5 MG TABLET PO (08:27)
[2023-10-01 08:43] LABS: Glucose Point of Care 98 mg/dl (65-105)
[2023-10-01 11:59] LABS: Glucose Point of Care 99 mg/dl (65-105)
--- NOTE | 2023-10-01 14:56 | PM.DS ---
DS: Admitting Diagnosis Discharge Date 10/01/23 Admitting Diagnosis Weakness DS: Discharge Diagnosis Discharge Diagnosis (1) Shock: Code(s): R57.9 - Shock, unspecified Status: Acute (2) Sepsis: Code(s): A41.9 - Sepsis, unspecified organism Status: Acute (3) Anemia: Qualifiers: Anemia type: due to chronic kidney disease Chronic kidney disease stage: stage 4 (severe) Qualified Code(s): N18.4 - Chronic kidney disease, stage 4 (severe); D63.1 - Anemia in chronic kidney disease Code(s): D64.9 - Anemia, unspecified Status: Acute (4) Bradycardia: Code(s): R00.1 - Bradycardia, unspecified Status: Acute (5) Acute kidney injury superimposed on stage 3b chronic kidney disease: Code(s): N17.9 - Acute kidney failure, unspecified; N18.32 - Chronic kidney disease, stage 3b Status: Acute (6) Encephalopathy: Code(s): G93.40 - Encephalopathy, unspecified Status: Acute (7) Diabetes mellitus with chronic kidney disease: Code(s): E11.22 - Type 2 diabetes mellitus with diabetic chronic kidney disease Status: Chronic (8) Hypothyroidism (acquired): Code(s): E03.9 - Hypothyroidism, unspecified Status: Acute (9) COPD (chronic obstructive pulmonary disease): Qualifiers: COPD type: unspecified COPD Qualified Code(s): J44.9 - Chronic obstructive pulmonary disease, unspecified Code(s): J44.9 - Chronic obstructive pulmonary disease, unspecified Status: Acute (10) Heart failure with preserved ejection fraction: Code(s): I50.30 - Unspecified diastolic (congestive) heart failure Status: Chronic (11) Bipolar 1 disorder: Code(s): F31.9 - Bipolar disorder, unspecified Status: Acute (12) UTI (urinary tract infection): Code(s): N39.0 - Urinary tract infection, site not specified Status: Acute DS: Summary Hospital Course Reason for hospitalization: 73yo female with DERRICK intolerant to CPAP, Parkinson's disease, morbid obesity, CHF with preserved ejection fraction, DM with peripheral neuropathy, hypothyroidism, CKD stage III, COPD and bipolar disorder/depression who presented to the ER via EMS from home due to weakness. Please see H&P for details. Hospital Course: Patient presented with weakness and found to have bradycardia with HR in the 30's. She received atropine in the field. In the ED, she was HoTN. She received IV fluid bolus but HoTN persisted so central line placed and pressors started. EKG showing supraventricular bradycardia with low voltage and prolonged QT interval. Chest x-ray shows cardiomegaly and right lower lobe airspace disease. In ICU, she was hypertensive so Levophed was discontinued. Shortly thereafter dopamine was also discontinued. Repeat EKG demonstrated sinus bradycardia with a rate of 44. UA is concerning for UTI. UCx and BCx collected. Zosyn and vancomycin started. Switched to meropenem and vancomycin but MRSA screen was negative so Vanco stopped. Central line removed. Arterial line had been placed for more accurate BP reading but this was removed as well. [place] related to sepsis and probably cardiogenic from patient receiving inappropriate medications. Her resumed the patient's metoprolol and other meds despite being held at discharge from [facility] which probably contributed to her symptoms. He was educated about reviewing discharge sheets before dispensing patient's medications. [place] patient had sepsis vs SIRS. Patient has history of UTI secondary to ESBL E coli CT scan reviewed and shows 2 mm nonobstructing right renal stone. Cultures obtained. Abx started. BCx NGTD. UCx growing 10-49K VRE. UA showing 3+ LE, >100 WBC with many squamous epith cells. Suspect this is more contaminate then true infection so Abx stopped. Patient with chronic anemia with hemoglobin running 7-8 range. Hemoglobin dropped to 6.9 8/18 and she was transfused 1 unit of packed red
[2023-10-01 17:05] LABS: Glucose Point of Care 86 mg/dl (65-105)
== END 2023-10-01 16:30 | disposition home health service (06) | DRG 871 ==
LOC: ANHED 23:49 → ANHICU 09-27 00:57 → ANHIMU 09-28 17:58 → ANH2MED 09-30 18:02
PROVIDERS: Internal Medicine; Admitting Provider Internal Medicine; Emergency Provider Emergency Medicine; Visit Provider Internal Medicine
DX: A41.9 Sepsis, unspecified organism (principal); G92.8 Other toxic encephalopathy; R65.21 Severe sepsis with septic shock; R57.0 Cardiogenic shock; N39.0 Urinary tract infection, site not specified; N17.9 Acute kidney failure, unspecified; I13.0 Hypertensive heart and chronic kidney disease with heart failure and stage 1 through stage 4 chronic kidney disease, or unspecified chronic kidney disease; I50.32 Chronic diastolic (congestive) heart failure; N18.4 Chronic kidney disease, stage 4 (severe); Z16.21 Resistance to vancomycin; I49.2 Junctional premature depolarization; J96.12 Chronic respiratory failure with hypercapnia; J96.11 Chronic respiratory failure with hypoxia; Z68.43 Body mass index [BMI] 50.0-59.9, adult; J44.9 Chronic obstructive pulmonary disease, unspecified; E87.5 Hyperkalemia; E11.22 Type 2 diabetes mellitus with diabetic chronic kidney disease; E11.42 Type 2 diabetes mellitus with diabetic polyneuropathy; T44.7X1A Poisoning by beta-adrenoreceptor antagonists, accidental (unintentional), initial encounter; R00.1 Bradycardia, unspecified; D63.1 Anemia in chronic kidney disease; B95.2 Enterococcus as the cause of diseases classified elsewhere; Z20.822 Contact with and (suspected) exposure to COVID-19; E03.9 Hypothyroidism, unspecified; E66.01 Morbid (severe) obesity due to excess calories; E78.5 Hyperlipidemia, unspecified; K21.9 Gastro-esophageal reflux disease without esophagitis; G47.33 Obstructive sleep apnea (adult) (pediatric); G20.A1 Parkinson's disease without dyskinesia, without mention of fluctuations; G25.81 Restless legs syndrome; F31.9 Bipolar disorder, unspecified; F41.9 Anxiety disorder, unspecified; F17.210 Nicotine dependence, cigarettes, uncomplicated; Z96.653 Presence of artificial knee joint, bilateral; Z86.718 Personal history of other venous thrombosis and embolism; Z79.01 Long term (current) use of anticoagulants; Z87.442 Personal history of urinary calculi; Z99.81 Dependence on supplemental oxygen; Z79.4 Long term (current) use of insulin
CPT/HCPCS: 36415; 36430; 36556; 36600; 70450; 71045; 71250; 74176; 78227; 80048; 80053; 80061; 80202; 80307; 81001; 82533; 82550; 82565; 82805; 82948; 83605; 83690; 83735; 83880; 84100; 84439; 84443; 84480; 84484; 85014; 85018; 85025; 85027; 85055; 85610; 85730; 86850; 86900; 86901; 86923; 87040; 87077; 87086; 87088; 87181; 87637; 87641; 93005; 94640; 96361; 96365; 96366; 96367; 96375; 97110; 97161; 97165; 97530; 97535; 99285; A9270; A9537; C1751; J0613; J0650; J1265; J1815; J2185; J2543; J2805; J3370; J7030; J7050; J7120; P9016

== ENCOUNTER 2023-10-13 09:37 | Inpatient (IN) | payer MEDICARE, BC, SELFPAY ==
[2023-10-13] VITALS (12 sets, daily range): BP systolic 133–150; BP diastolic 54–95; PULSE 56–76; RESP 18–20; TEMP 36.6–36.8; O2SAT 95–100; BMI 46.0
--- NOTE | ~2023-10-13 | CT_ITS ---
EXAMINATION: CT cervical spine wo con DATE: 10/13/2023 17:41 INDICATION: Bruising at the left postauricular area TECHNIQUE: Computed tomography (CT) of the cervical spine was performed without intravenous contrast. Automated exposure control and iterative reconstruction technique were employed. The dose-length pro duct was 518.60 mGy-cm. COMPARISON: 08/28/2022 FINDINGS: 6 degrees lower cervical dextrocurvature. One-2 mm anterolisthesis C4 on C5. Vertebral body heights a re normal. No fracture. Moderate disc height loss at C4-C5 and C5-C6. Mild disc height loss at C4-C5. Posterior disc osteophyte complex resulting in mild central canal stenosis at C5-C6, minimal at C4-C 5. Severe facet osteoarthritis on the left at C4-C5 and fusion across the right C7-T1 facet joint. Mi ld to moderate osteoarthritis at the remaining bilateral cervical facet joints. This contributes to m oderate neural foraminal stenosis on the left at C5-C6 and mild neural from stenosis at many of the r emaining bilateral cervical neural foramina. Small amount of atherosclerotic calcifications at the la teral carotid bulbs. Cervical soft tissues are otherwise unremarkable. Respiratory motion at the apic es of the lungs. IMPRESSION: 1. Moderate cervical spondylosis. No acute osseous abnormality. Reviewed, dictated and finalized at location A.
--- NOTE | ~2023-10-13 | XR_ITS ---
Portable chest x-ray Comparison: 10/13/2023 Clinical History: Shortness of breath Findings: There is mild bibasilar pulmonary edema. Cardiomediastinal silhouette is stable. Bones an d soft tissues are unremarkable. Impression: Mild bibasilar pulmonary edema. Reviewed, dictated and finalized at location . Impression: Mild bibasilar pulmonary edema.
--- NOTE | ~2023-10-13 | CT_ITS ---
CT head without contrast Indication: Altered mental status COMPARISON: 10/13/2023 Technique: Serial scans were obtained through the brain without the administration of contrast. Dose reduction technique was used on this scan by utilizing automated exposure control and iterative recon struction technique. The dose-length product (DLP) was 2270.00 mGy-cm. Findings: Exam significantly degraded by motion artifact. There is no evidence of intracranial hemorr christy, mass lesion, or acute infarct. The ventricles and subarachnoid spaces are dilated, consistent with mild atrophy. Low attenuation regions are seen within the periventricular white matter bilatera lly, likely representing changes from chronic microvascular ischemic disease. There is no evidence of edema, mass effect or midline shift. The visualized paranasal sinuses and mastoid air cells are cl ear. Impression: No intracranial hemorrhage, mass, or acute infarct seen. Exam is significantly degraded by motion art ifact. Atrophy and chronic white matter changes, as above. Reviewed, dictated and finalized at location . Impression: No intracranial hemorrhage, mass, or acute infarct seen. Exam is significantly degraded by motion artifact. Atrophy and chronic white matter changes, as above.
--- NOTE | ~2023-10-13 | XR_ITS ---
EXAMINATION: XR lumbar puncture diagnostic DATE: 10/15/2023 12:45 INDICATION: Altered mental status TECHNIQUE: The procedure including the risks and benefits was discussed with the patient's . R isks discussed included spinal headache, cerebrospinal fluid leak, bleeding, and infection. The patie nt understood the risks and agreed to proceed. A timeout was performed to verify the patient's nam e, date of , and procedure to be performed. The skin overlying the L5-S1 level was prepped and draped in usual sterile fashion. Subcutaneous 1% lidocaine was used for local anesthesia. A 5 inch 22 gauge spinal needle was advanced under fluoroscopic guidance. The needle was removed and the entry site was cleaned and dressed. There were no immediate complications. A total of 1 fluoroscopic imag e and one lateral radiograph were obtained. The amount of fluoroscopy time used during this procedure was 0.8 minutes. Total DAP was 16.5 Gycm^2 The patient was returned to the floor in unchanged condit ion. FINDINGS: Real-time fluoroscopy demonstrates the needle at the L5-S1 level. Opening pressure was 41.5 cm water. (Normal range is variably defined as 6-20 cm water and up to 25 cm water in obese patients . Pressure >25 cm water is one of the modified Dandy criteria for idiopathic intracranial hypertensio n). 12 mL of clear, colorless fluid was collected in 4 tubes. IMPRESSION: 1. Successful fluoro-guided lumbar puncture with elevated opening pressure of 41.5 cm. Reviewed, dictated and finalized at location A. IMPRESSION: 1. Successful fluoro-guided lumbar puncture with elevated opening pressure of 4 1.5 cm.
--- NOTE | ~2023-10-13 | CT_ITS ---
EXAMINATION: CT brain wo con DATE: 10/13/2023 17:41 INDICATION: Confusion and bruising to the left side of the face. TECHNIQUE: Computed tomography (CT) of the head was performed without intravenous contrast. Sagittal and coronal reconstructions were performed. The mA was adjusted according to patient size. Iterative reconstruction technique was employed. The dose-length product was 1967.33 mGy-cm. COMPARISON: head CT dated 09/26/2023 FINDINGS: Left malar subcutaneous contusion. No fracture. No acute intracranial hemorrhage, acute infarction or abnormal extra axial fluid collection. There is extensive scattered white matter hypoattenuation con sistent with chronic small vessel ischemic disease. Symmetric prominence of the sulci and ventricles consistent with mild age-appropriate diffuse cerebral volume loss. Ventricles are normal and symmetr ic. No mass/mass effect. Changes of bilateral intraocular lens replacement. The orbits and mastoid ai r cells are normal. Mucosal thickening versus mucous retention cysts in the bilateral sphenoid and ri ght maxillary sinuses. IMPRESSION: 1. No fracture or acute intracranial process. 2. Mild diffuse volume loss and extensive scattered white matter hypoattenuation consistent with automotive window tinter pallavi small vessel ischemic disease. Reviewed, dictated and finalized at location A. IMPRESSION: 1. No fracture or acute intracranial process. 2. Mild diffuse volume loss and extensive scattered white matter hypoattenuatio n consistent with chronic small vessel ischemic disease.
--- NOTE | ~2023-10-13 | XR_ITS ---
Portable chest x-ray Comparison: 10/14/2023 Clinical History: Pulmonary edema Findings: Possible minimal central congestive change. Lungs are otherwise clear. Cardiomediastinal silhouette is stable. Bones and soft tissues are unremarkable. Impression: Possible minimal central congestive change. Reviewed, dictated and finalized at [facility]. Impression: Possible minimal central congestive change.
--- NOTE | ~2023-10-13 | XR_ITS ---
Clinical Indication: Shortness of breath AP and lateral views of the chest: Comparison: 09/26/2023 Findings: Possible minimal bibasilar haziness. No pleural effusion. Cardiomediastinal silhouette is within normal limits. Bones and soft tissues are unremarkable. Impression: Questionable minimal bibasilar haziness. Correlate for minimal pulmonary edema. Reviewed, dictated and finalized at [facility]. Impression: Questionable minimal bibasilar haziness. Correlate for minimal pulmonary edema.
--- NOTE | 2023-10-13 09:50 | ECG_ITS ---
Test Date: 2023-10-13 09:53:44 Measurements Intervals [place] Rate: 62 P: 58 [place]: 152 QRS: 15 QRSD: 92 T: 57 QT: 415 QTc: 422 Interpretive Statements SINUS RHYTHM LOW QRS VOLTAGE IN PRECORDIAL LEADS BASELINE ARTIFACT- I, II, III, AVR, AVL, AVF, V1, V4-V6 BORDERLINE ECG Compared to ECG 09/27/2023 23:20:30 No significant changes Electronically Signed On 10-13-2023 11:13:59 CDT by Calin Fernandez D.O.
[2023-10-13 10:21] LABS: Basophils Percent Auto 0.5 % (0.2-1.2); Eosinophils Absolute Auto 0.2 K/mm3 (0-0.3); Eosinophils Percent Auto 2.5 % (0-4.4); Hemoglobin 8.4 g/dL (12.0-15.0); Immature Granulocyte Absolute 0.05 K/mm3 (0.00-0.031); Immature Granulocyte Percent A 0.6 % (0-0.5); Lymphocytes Absolute Auto 0.59 K/mm3 (0.9-3.2); Lymphocytes Percent Auto 6.7 % (18.3-44.2); Mean Platelet Volume 12.6 fl (7.4-10.4); Monocytes Absolute Auto 0.6 K/mm3 (0.1-0.6); Monocytes Percent Auto 7.1 % (2.6-8.5); Neutrophils Absolute Auto 7.3 K/mm3 (1.3-6.7); Neutrophils Percent Auto 82.6 % (45.5-73.1); Nucleated Red Blood Cells Perc 0.2 % (0.0-0.2); Platelet Count Result 213 k/mm3 (150-375); Red Cell Distribution Width 18.6 % (11.5-14.5); White Blood Count 8.9 K/mm3 (4.5-10.0)
[2023-10-13 10:31] LABS: INR 1.3; Partial Thromboplastin Time 31.3 Seconds (22.3-36.8); Prothrombin Time 17.2 Seconds (11.1-14.7)
[2023-10-13 10:42] LABS: Alanine Aminotransferase 11 U/L (6-35); Albumin Level 4.3 g/dL (3.5-5.1); Alkaline Phosphatase 129 U/L (38-126); Anion Gap 12 mmol/L (4-12); Aspartate Amino Transferase 19 U/L (14-36); Bilirubin,Total 0.8 mg/dL (0.2-1.3); Blood Urea Nitrogen 28 mg/dL (7-17); Calcium 9.5 mg/dL (8.4-10.2); Carbon Dioxide 25 mmol/L (22-30); Chloride 102 mmol/L (98-107); Estimated CRCL calculation 38 ml/min; Estimated Glomerular Filt Rate 34; Glucose 161 mg/dL (65-110); Potassium 5.6 mmol/L (3.4-5.0); Sodium 139 mmol/L (137-145)
[2023-10-13 10:50] LABS: NT Pro B Type Natriuretic Pept 16800 pg/mL (19.9-100)
[2023-10-13 11:13] LABS: Influenza A QL RT-PCR Negative (Negative); Influenza B QL RT-PCR Negative (Negative); SARS-CoV-2 RNA PCR Negative (Negative)
--- NOTE | 2023-10-13 12:04 | ED.GENADULT ---
HPI - General Adult General Chief complaint: Shortness of Breath/Dyspnea Stated complaint: SOB Time Seen by Provider: 10/13/23 10:10 History of Present Illness HPI narrative: Patient is a 73-year-old female who presents to the emergency department this afternoon complaining of generalized weakness, shortness of breath, urinary incontinent and recurrent UTIs. Patient was recently admitted to our facility approximately 2 weeks ago and discharged 10 days ago. who is currently present at bedside states that he lives at home with the patient and admits that throughout the past few weeks patient has been spending most of her day in bed due to generally feeling weak. Has been states that she used to be able to ambulate around the home using her walker and now she can not even do that. states that she used up all of her rehab but days and feels as though she needs more physical rehabilitation as she is no longer able to do she normally does. Patient denies any fevers or chills at home, admits that she has been having urinary urgency. Patient admits to history of COPD and states that she was prescribed a nebulizer but she has not been using it like she was instructed as she does not know how to use. Denies any chest pain or shortness of breath, denies any abdominal pain. No additional symptoms or concerns at this time. Related Data Home Medications Medication Instructions Recorded Confirmed carbidopa 25 mg-levodopa 100 mg 3 tablet PO TID 12/10/19 09/27/23 tablet allopurinol 100 mg tablet 100 mg PO DAILY 12/12/21 09/27/23 empagliflozin 10 mg tablet 10 mg PO DAILY 12/12/21 09/27/23 (Jardiance) prazosin 5 mg capsule 5 mg PO HS 12/12/21 09/27/23 ropinirole 0.5 mg tablet 0.5 mg PO HS 12/12/21 09/27/23 acetaminophen 650 mg tablet 650 mg PO Q6H PRN Pain (Scale 12/23/21 09/27/23 Score 1-3) albuterol sulfate 90 mcg/actuation 2 puff inhalation QID PRN 12/23/21 09/27/23 aerosol inhaler Shortness Of Breath Or Wheezing gabapentin 100 mg capsule 100 mg PO TID ##0 12/29/21 09/27/23 amiodarone 200 mg tablet 200 mg PO DAILY ##0 08/28/22 09/27/23 apixaban 5 mg tablet (Eliquis) 2.5 mg PO Q12HR 08/28/22 09/27/23 pantoprazole 40 mg tablet,delayed 40 mg PO QAM 08/28/22 09/27/23 release fluticasone propionate 115 2 puff inhalation Q12H ##0 09/02/22 09/27/23 mcg-salmeterol 21 mcg/actuation HFA inhaler atorvastatin 80 mg tablet 80 mg PO DAILY 09/27/23 09/27/23 Allergies Allergy/AdvReac Type Severity Reaction Status Date / Time iodine Allergy Severe Hives Verified 05/06/22 12:41 latex Allergy Severe Hives Verified 05/06/22 12:41 Contrast Media Allergy Mild Hives Uncoded 05/06/22 12:41 Review of Systems Review of Systems: All systems are reviewed and are negative unless stated otherwise in the HPI. [facility] Past Medical History Medical History Anxiety Bipolar 1 disorder BMI greater than 40 Chronic anemia Chronic kidney disease, stage 3 Baseline creatinine ranges between 1.2 and 1.50. Chronic obstructive pulmonary disease Depression Diabetic polyneuropathy Gastroesophageal reflux disease GI bleed (01/2010) Secondary to peptic ulcer. Heart failure with preserved ejection fraction History of DVT (deep vein thrombosis) Hyperlipidemia Hypertension Hypothyroidism Impaired cognition Junctional rhythm Kidney stones Neuropathy Obstructive sleep apnea Patient does not use PAP therapy at nighttime. Osteoarthritis Parkinson disease Restless leg syndrome Type 2 diabetes mellitus Weakness of left lower extremity Surgical History Surgical History History of bilateral knee arthroplasty History of hysterectomy History of sinus surgery Family History Family History Grandparent Diabetes mellitus Acute myocardial infarction Father Acute myocardial inf
[2023-10-13] MEDS: IPRATROPIUM 0.5 MG/ALBUTEROL SULFATE 2.5 MG AMPUL.NEB 3 ML INHALATION (12:19)
[2023-10-13] MEDS: methylPREDNISolone SOD SUCC 125 MG VIAL IV PUSH (12:23)
--- NOTE | 2023-10-13 13:25 | PM.IMHP ---
H&P: HPI History of Present Illness Date/Time: 10/13/23 13:25 Chief Complaint: Weakness. Narrative: This is a pleasant 73-year-old female with multiple medical problems including Parkinson's disease, hypertension, hyperlipidemia, heart failure with preserved ejection fraction, type 2 diabetes mellitus, hypothyroidism, untreated sleep apnea, chronic kidney disease, chronic anemia, chronic obstructive pulmonary disease, gastroesophageal reflux disease, peptic ulcers, depression, and anxiety who presented to the emergency department via EMS from home for evaluation of weakness. The patient provides the following history. She was hospitalized at the end of August with ESBL E coli urinary tract infection and bacteremia and was at [facility] from September 16 to September 24. On discharge from rehab she was too weak to get into her home and needed help from the fire department to get inside. She returned to the ED the following day with weakness and inability to get out of bed and was admitted to the ICU with shock secondary cardiogenic shock from bradycardia (she was still taking metoprolol despite the drug being held on discharge from rehab) and possible sepsis due to UTI however culture grew out less than 50,000 colonies of VRE which was felt to be contaminant. Plans were for discharge to rehab at [facility] however she was out of rehab days and no secondary payment source so she was discharged home with home health on September 30. She spends the majority of her time in bed as she is too weak to get up and ambulate with her walker. is unable to help her out much due to her size. In addition to weakness she complains of shortness of breath but goes on to say that she has not been using the nebulizer that she was prescribed as she reportedly does not know how to operated. She also complains urinary incontinence and strong smelling urine. At the time my evaluation the patient seems to be intermittently confused. She is anxious but does attempt answer questions and follow commands. Her right eye is closed and she is able to open it but then closes it again. She is unable to tell me whether not she is having difficulties with vision in that eye. She was also noted to have a bruise on the left cheek and left neck of which she was unaware. states she has not had any recent falls or injuries. She denies headache, neck ache, fever, chest pain, shortness of breath, vomiting, diarrhea, and dysuria. She also denies focal weakness and paresthesias, facial droop, difficulty swallowing. In the ED: She was afebrile on arrival with stable blood pressures. Heart rate has been in the upper 50s to low 60s. Labs were significant for WBC count of 8.9, hemoglobin 8.4, potassium 5.6, BUN 28, creatinine 1.50, glucose 161, proBNP 03280. She was negative for influenza and COVID. Chest x-ray showed questionable minimal bibasilar haziness. EKG showed sinus rhythm and low QRS voltage in precordial leads without any ST segment changes. Urinalysis is pending. Later in the nurse's responded to the patient yelling out. She was very anxious on their arrival and was hypoxic. She has known sleep apnea which is untreated and it is suspected that she was probably asleep and woke up gasping for air. She is currently on 4 L with an SpO2 of 99% and her respiration seem nonlabored. She continues to have intermittent periods of confusion and CT of the brain and cervical spine were without acute findings. VBG did not show CO2 retention. She has also had dysrhythmias on telemetry, nurses were concerned for ventricular tachycardia however some of this looks to be artifact. At 1 point did appear that she was in atrial flutter for brief period of time. Of note, there seems to be confusion about the patient's medications and has been given nurse a list of medications from August. We are awaiting confirmation from the patient's who is supposed to bring her medications in this evening for reconciliation.
[2023-10-13 17:59] LABS: Glucose Point of Care 150 mg/dl (65-105)
[2023-10-13 17:59] LABS: Fractional Inspired Oxygen 36 %; HCO3 VBG 24.3 mEq/l (24.0-30.0); PCO2 VBG 38.7 mmHg (42.0-48.0); PO2 VBG 78.7 mmHg (35.0-45.0)
[2023-10-13 18:01] LABS: Device NASAL CANNULA; pH VBG 7.416 (7.300-7.400)
[2023-10-13 18:09] LABS: Anion Gap 14 mmol/L (4-12); Blood Urea Nitrogen 27 mg/dL (7-17); Calcium 9.7 mg/dL (8.4-10.2); Carbon Dioxide 22 mmol/L (22-30); Chloride 103 mmol/L (98-107); Estimated CRCL calculation 37 ml/min; Estimated Glomerular Filt Rate 34; Glucose 162 mg/dL (65-110); Potassium 5.7 mmol/L (3.4-5.0); Sodium 139 mmol/L (137-145)
[2023-10-13 19:05] LABS: Bacteria Urine 4+ /hpf; Non Pathogenic Casts 0-2; RBC Urine 0-2 /hpf (0-2); Squamous Epithelial Cell Urine None Seen /hpf (Few)
[2023-10-13 19:07] LABS: Need Manual Microscopic Reviewed
[2023-10-13 19:10] LABS: Appearance Urine Clear (Clear); Color Urine Yellow (Yellow)
[2023-10-13 19:11] LABS: Bilirubin Urine Negative (Negative); Blood Urine Negative (Negative); Glucose Urine UA Negative (Negative); Ketones Urine 1+ mg/dL (Negative); Nitrate Urine Negative (Negative); Protein Urine 3+ mg/dL (Negative); pH Urine 8.5 (5.0-9.0)
[2023-10-13] MEDS: CALCIUM GLUC 1,000 MG/NS 100ML 1,000 MG/100 ML BAG 200 MG IVPB (19:11)
[2023-10-13] MEDS: SODIUM BICARBONATE 8.4% 50 MEQ/50 ML SYRINGE IV PUSH (19:11)
[2023-10-13 19:12] LABS: Add Urine Microscopic? YES; Leukocyte Esterase Ur Negative LEU/UL (Negative); Urobilinogen Urine 0.2 mg/dL (<2.0)
--- NOTE | 2023-10-13 20:10 | PC.NURSE ---
attempted to do patient's med rec. medication list provided by . patient's states that medications on list are correct but not all that she takes is listed. attempted to call and clarify other medications, did not answer phone. left name and call back number.
[2023-10-13 21:29] LABS: Glucose Point of Care 172 mg/dl (65-105)
[2023-10-13 21:31] LABS: Free T4 Free Thyroxine Reflex 1.57 ng/dL (0.78-2.19)
--- NOTE | 2023-10-13 22:31 | PC.NURSE ---
Addendum entered by Jerilyn Gonzales RN 10/13/23 23:12: Also notified Sasha that rectal Kayexalate would be unable to be given at this time due to pt fidgeting. Medication non-administered on APR. Also notified Sasha that on tele pt was seen to go into v-tach twice but would return to sinus rhythm. Sasha told me to put in orders for a STAT EKG, STAT magnesium, and STAT BMP. Original Note: Assessed pt @2145. Pt's lungs clear and diminished, respirations with normal depth and effort. Pt on 4L (this is pt's baseline per report given). Heart sounds regular. Bilateral radial and pedal pulses regular but diminished. Abdomen soft and non-tender with palpations. Bowel sounds present in all quadrants. Noticed pt was constantly fidgeting in bed. Have known pt from previous admissions and I know pt has a hx of tremors related to Parkinson's but does not move abnormally all over like this before. Asked pt orientation questions (name, , where are you, and what day is it), pt did not respond to any and would move her head side to side. Noticed eyes do not focus when calling out her name, or speaking to her, and sometimes would just shut eyes tight. Attempted to give pt Xananx with some pudding for previous panic attack noted @ approx. 2030 but pt would just freak out and move her head side to side. Notified Sasha Sales (hospitalist tiff) of findings. Sasha came up to the floor to check on pt. Sasha said she would take a look at her stuff.
[2023-10-13 22:33] LABS: Total Triiodothyronine (T3) 0.73 NG/ML (0.97-1.69)
--- NOTE | 2023-10-13 23:09 | ECG_ITS ---
Test Date: 2023-10-13 23:23:15 Measurements Intervals [place] Rate: 68 P: 59 KS: 186 QRS: 35 QRSD: 90 T: 69 QT: 402 QTc: 430 Interpretive Statements SINUS RHYTHM WITH SINUS ARRHYTHMIA BASELINE WANDER- I, II, III, AVR, AVL, AVF, V1-V6 NORMAL ECG Compared to ECG 10/13/2023 09:53:44 No significant changes Electronically Signed On 10-14-2023 07:43:02 CDT by Calin Fernandez D.O.
[2023-10-13 23:47] LABS: Anion Gap 12 mmol/L (4-12); Blood Urea Nitrogen 27 mg/dL (7-17); Calcium 10.2 mg/dL (8.4-10.2); Carbon Dioxide 25 mmol/L (22-30); Chloride 103 mmol/L (98-107); Estimated CRCL calculation 37 ml/min; Estimated Glomerular Filt Rate 34; Glucose 168 mg/dL (65-110); Magnesium 1.5 mg/dL (1.6-2.3); Potassium 5.6 mmol/L (3.4-5.0); Sodium 140 mmol/L (137-145)
[2023-10-14] VITALS (21 sets, daily range): BP systolic 107–140; BP diastolic 49–92; PULSE 67–91; RESP 20–32; TEMP 36.1–36.9; O2SAT 91–100
[2023-10-14 04:59] LABS: Hematocrit 26.4 % (37.0-47.0); Mean Corpuscular HGB Conc 30.3 g/dl (32-36); Mean Corpuscular Hemoglobin 29.4 pg (26-34); Mean Corpuscular Volume 97.1 fl (80-100); Mean Platelet Volume 12.2 fl (7.4-10.4); Platelet Count Result 215 k/mm3 (150-375); Red Blood Count 2.72 M/mm3 (4.2-5.4); Red Cell Distribution Width 18.4 % (11.5-14.5); White Blood Count 14.4 K/mm3 (4.5-10.0)
[2023-10-14 05:14] LABS: Glucose Point of Care 150 mg/dl (65-105)
[2023-10-14 05:15] LABS: Anion Gap 13 mmol/L (4-12); Blood Urea Nitrogen 31 mg/dL (7-17); Calcium 9.8 mg/dL (8.4-10.2); Carbon Dioxide 26 mmol/L (22-30); Chloride 102 mmol/L (98-107); Estimated CRCL calculation 35 ml/min; Estimated Glomerular Filt Rate 32; Glucose 151 mg/dL (65-110); Magnesium 1.6 mg/dL (1.6-2.3); Potassium 5.6 mmol/L (3.4-5.0); Sodium 141 mmol/L (137-145)
[2023-10-14 05:41] LABS: Alveolar/Arterial O2 Gradient 47.1 mmHg; Base Excess ABG -1.1 mEq/l (+/-2.0); Fractional Inspired Oxygen 34 %; HCO3 ABG 24.3 mEq/l (22.0-26.0); Oxygen Saturation ABG 98.8 % (95.0-100.0); Oxyhemoglobin 97.8 % THb (90.0-100.0); PCO2 ABG 43.8 mmHg (35.0-45.0); PO2 ABG 144.3 mmHg (80.0-100.0); PO2 FiO2 Ratio Arterial Blood 4.24 %; Total Hemoglobin 8.5 g/dL (12.0-18.0); pH ABG 7.362 (7.350-7.450)
[2023-10-14 05:42] LABS: Device NASAL CANNULA; Liters per Minute 3.5 LPM; Modified Allen's Test Pass; Site Drawn RIGHT RADIAL
--- NOTE | 2023-10-14 06:02 | PM.EVENT ---
Event Note Event Note Event Note: 10/14/2023 just after 05:00 Nursing staff called patient was found have ?foam from the mouth?. The patient was restless and less responsive. The patient is still kicking her legs in bed and moving restlessly around the hospital bed but is not following direct commands. I arrived at the bedside and I obtained ABG from the left radial artery. ABG demonstrated pH 7.36 pCO2 43 PO2 of 144 patient was on 3.5 L nasal cannula. Stat chest x-ray was obtained demonstrate opacities in the cephalad distribution concerning for pulmonary edema radiologic interpretation pending. Order for 1 mg IV Bumex was provided. Patient does not have accurate I&O's since admission because patient has pulled out to pure wick catheters but has had 2 saturated depends. Given concern for pulmonary edema in the setting of acute renal insufficiency and hyperkalemia patient would benefit from strict I&O's monitoring. For this reason I am going to have nurses place a De La Cruz catheter. The patient does not have any evidence of urinary retention at this time on bladder scan. I suspect that the patient is encephalopathic due to metabolic derangement versus unknown source of infection as patient does have some leukocytosis. However patient did receive Solu-Medrol in the ER which could lead to leukocytosis. She is afebrile. She was having intermittent episodes of confusion on admission to the medical floor. She has multiple episodes where she will fall asleep in the will yell out. She is hypoxic when nursing staff arrives to the room. She has untreated obstructive sleep apnea and we suspect she has waking up gasping for air. And wondering if the patient does not have some issues with her memory in the setting of Parkinson's disease and her numerous admissions recently. She may have some hospital psychosis. The patient did have a CT of her brain which demonstrated no acute process. The patient does hold her right eye closed when I tried to open the right eye the patient resists exam but the patient's eyes do track equally. Although the patient will not follow commands so I can see tracking of movements to the right. She is actively resisting my evaluation. When I went back to re-evaluate the patient her his staff was placing a De La Cruz catheter. The patient was actively gripping onto both bed rails. I was able to open both of her eyes although she does hold the right eye closed whenever both eyes are open she is able to look in both directions. On exam she has coarse breath sounds and tachypnea. Difficult to assess for JVD due to body habitus and positioning. No obvious JVD at this time. No pitting edema. She has almost scalded appearance to her skin in her perineum and on her thighs medially. The patient does not have any mottling cap refill is 2-3 seconds. Patient has had prior bacteremia due to urinary tract source. UA on admission demonstrated 4+ bacteria 11-20 wbc's. Urine cultures currently pending. Patient remains afebrile. Pulse 72 respiratory rate 28 blood pressure 1 there are no 49 axillary temperature 98.5? pulse ox 99% on 3.5 L nasal cannula. Encephalopathy uncertain source versus delirium due to Parkinson's--patient has not been able to cooperate with the nursing staff and does not seem to understand trying to drink from a straw or drink from a cup. She is quite agitated. She does not have any localizing deficits that would suggest CVA. CT of the head was negative in the ER. The patient contrast allergy is not a candidate for CTA. There are no localizing deficits to suggest acute CVA. If there is more concern for acute CVA we would have to transfer the patient to tertiary care as we do not have MRI on the holiday weekend. ABG does not indicate CO2 retention no other clear metabolic source for encephalopathy seems apparent. The patient's TSH in T3 and T4 are relatively stable. Will check an ammonia level. Will handoff care to daytime hospitalis
[2023-10-14] MEDS: BUMETANIDE INJ 1 MG/4 ML VIAL IV PUSH (06:22)
[2023-10-14 07:18] LABS: Ammonia < 9 umol/L (9-30)
--- NOTE | 2023-10-14 08:02 | PM.IMPN ---
Progress Note: A&P Assessment and Plan (1) Altered mental status: Code(s): R41.82 - Altered mental status, unspecified Status: Acute Assessment and Plan: Patient presents with generalized weakness. She was alert and oriented on admission with complaints of generalized weakness, shortness of breath, urinary incontinent and hx of recurrent UTIs. Was somewhat oriented yesterday afternoon but condition worsened overnight. She was evaluated by Lacquer Spray Booth Operator at 500am and evaluation noted. CT brain on admission showing now acute findings. Cervical spine CT also performed showing no acute findings. CXR today showing mild bibasilar pulm edema. ABG today 7.36/44/144 on 3.5L. WBC 14. Hgb 8 (stable).Ammonia <9. TSH normal. Etiology unclear. Consider withdrawal from her medications. Consider sepsis. Meningitis seems less likely since no signs to suggest this and no fevers. Check BCx. UCx already collected. Doubt she could have LP or CT brain given how restless she is. Start abx. Ativan x1. Move to IMU. check UDS. Check lactic, etc. (2) Generalized weakness: Code(s): R53.1 - Weakness Status: Acute Assessment and Plan: As above PT/OT when able (3) Hyperkalemia: Code(s): E87.5 - Hyperkalemia Status: Acute Assessment and Plan: Noted on admission related to her underlying CKD. Repeat Calcium and bicarb. Repeat labs later today (4) Atrial flutter: Code(s): I48.92 - Unspecified atrial flutter Status: Acute Assessment and Plan: Patient has hx of AFlutter. EKG on admission showing sinus mechanism Amiodarone and Eliquis in hold since NPO Monitor on tele (5) Chronic anemia: Code(s): D64.9 - Anemia, unspecified Status: Acute Assessment and Plan: Patient with chronic anemia with hemoglobin running 7-8 range. Colonoscopy Feb 2022 showing diverticulosis. HH stable in the 8 range. Monitor H&H (6) Chronic kidney disease, stage 3: Qualifiers: Chronic kidney disease stage 3 subtype: stage 3a (GFR 45-59) Qualified Code(s): N18.31 - Chronic kidney disease, stage 3a Code(s): N18.30 - Chronic kidney disease, stage 3 unspecified Status: Acute Assessment and Plan: Patient with CKD with probable baseline of Cr 1.3-1.5 Also with hyperkalemia as above Monitor UOP, electrolytes and renal fxn. (7) Parkinson disease: Code(s): G20 - Parkinson's disease Status: Chronic Assessment and Plan: Patient has had issues with her medciations recently with stopping medications but reintroducing some of these that has lead to re-hospitalization. Home meds on hold at this time. May need NGT for meds (8) Type 2 diabetes mellitus: Qualifiers: Diabetes mellitus complication status: without complication Diabetes mellitus intermediate designer insulin use: with alf use Qualified Code(s): E11.9 - Type 2 diabetes mellitus without complications; Z79.4 - penitentiary (current) use of insulin Code(s): E11.9 - Type 2 diabetes mellitus without complications Status: Chronic Assessment and Plan: Recent A1c 7.4. The patient's blood glucose was reviewed on 10/13 Glucose remains well controlled. Continue AccuCheks covering with sliding scale. Hypoglycemia protocol available as needed. Continue to follow (9) Chronic obstructive pulmonary disease: Code(s): J44.9 - Chronic obstructive pulmonary disease, unspecified Status: Acute Assessment and Plan: Patient has a history of COPD and is on 2L at rest, 3 L with exertion and at night. She is intolerant to noninvasive ventilation for her sleep apnea ABG noted Wean O2 to keep SpO2>92% Plan DVT prophylaxis - SCDs Code status - full Critical care time spent - 50 minutes Subjective Date/time seen: 10/14/23 08:02 Interval history: 73yo female with DERRICK intolerant to CPAP, Parkinson's disease, morbid o
[2023-10-14 08:07] LABS: Glucose Point of Care 155 mg/dl (65-105)
[2023-10-14] MEDS: ALBUTEROL SULFATE NEB 2.5 MG/3 ML INH INHALATION (08:27)
--- NOTE | 2023-10-14 08:38 | PCOTNOTE ---
The patient initial occupational therapy evaluation was not able to be completed on 10/13 due to patient being transferred to IMU due to medical status. Will plan to continue to follow patient while hospitalized and evaluate when able with new order upon medical stabilization.
--- NOTE | 2023-10-14 08:42 | PCPTNOTE ---
Spoke with nursing, Pt transferring to IMU. Will require new PT order to proceed with evaluation after medical status change.
[2023-10-14] MEDS: SODIUM BICARBONATE 8.4% 50 MEQ/50 ML SYRINGE IV PUSH (08:49)
[2023-10-14] MEDS: LORazepam INJ (*CRX) 2 MG/ML VIAL 1 MG IV PUSH (08:51)
[2023-10-14] MEDS: CALCIUM GLUC 1,000 MG/NS 50 ML 1,000 MG/50 ML BAG 100 MG IVPB (08:53)
--- NOTE | 2023-10-14 09:01 | PCSTNOTE ---
0733 Spoke with patient's nurse who stated that patient would not be able to participate in a bedside swallowing evaluation because the nurse is not even able to get patient to open her eyes. ST will follow up tomorrow.
--- NOTE | 2023-10-14 09:30 | PC.NURSE ---
To IMU via bed. Report called to Stephanie De La Cruz draining clear yellow urine. Family notified of transfer.
--- NOTE | 2023-10-14 09:40 | PC.NURSE ---
Report received by KODI Shell at 0931 from medical floor. All questions answered and plan of care reviewed. Patient to transfer to IMU room 206 bed 1.
--- NOTE | 2023-10-14 09:40 | PC.NURSE ---
Patient arrived at 0934 to IMU. Patient oriented to room. Assessment preformed and vitals obtained. Patient arrived with all known belongings.
[2023-10-14 10:14] LABS: Basophils Percent Auto 0.1 % (0.2-1.2); Hematocrit 25.5 % (37.0-47.0); Hemoglobin 7.6 g/dL (12.0-15.0); Immature Granulocyte Absolute 0.06 K/mm3 (0.00-0.031); Immature Granulocyte Percent A 0.4 % (0-0.5); Lymphocytes Absolute Auto 0.31 K/mm3 (0.9-3.2); Lymphocytes Percent Auto 2.2 % (18.3-44.2); Mean Corpuscular HGB Conc 29.8 g/dl (32-36); Mean Corpuscular Hemoglobin 29.1 pg (26-34); Mean Corpuscular Volume 97.7 fl (80-100); Mean Platelet Volume 12.2 fl (7.4-10.4); Monocytes Absolute Auto 0.9 K/mm3 (0.1-0.6); Monocytes Percent Auto 6.1 % (2.6-8.5); Neutrophils Absolute Auto 13.1 K/mm3 (1.3-6.7); Neutrophils Percent Auto 91.2 % (45.5-73.1); Platelet Count Result 220 k/mm3 (150-375); Red Blood Count 2.61 M/mm3 (4.2-5.4); Red Cell Distribution Width 18.5 % (11.5-14.5); White Blood Count 14.4 K/mm3 (4.5-10.0)
[2023-10-14 10:19] LABS: Glucose Point of Care 141 mg/dl (65-105)
[2023-10-14 10:23] LABS: Potassium 5.2 mmol/L (3.4-5.0)
[2023-10-14 10:24] LABS: Anion Gap 12 mmol/L (4-12); Blood Urea Nitrogen 34 mg/dL (7-17); Carbon Dioxide 26 mmol/L (22-30); Chloride 104 mmol/L (98-107); Estimated CRCL calculation 34 ml/min; Estimated Glomerular Filt Rate 32; Glucose 142 mg/dL (65-110); Lactic Acid Reflex 1.6 mmol/L (0.7-2.0); Potassium 5.2 mmol/L (3.4-5.0); Sodium 142 mmol/L (137-145)
[2023-10-14 10:36] LABS: Alanine Aminotransferase 15 U/L (6-35); Albumin Level 4.3 g/dL (3.5-5.1); Alkaline Phosphatase 118 U/L (38-126); Anion Gap 11 mmol/L (4-12); Aspartate Amino Transferase 20 U/L (14-36); Bilirubin,Total 0.7 mg/dL (0.2-1.3); Blood Urea Nitrogen 34 mg/dL (7-17); CRP 2.7 mg/dL (<1.0); Calcium 10.1 mg/dL (8.4-10.2); Carbon Dioxide 29 mmol/L (22-30); Chloride 102 mmol/L (98-107); Creatine Kinase 97 U/L (30-135); Estimated CRCL calculation 34 ml/min; Estimated Glomerular Filt Rate 32; Glucose 141 mg/dL (65-110); Potassium 5.3 mmol/L (3.4-5.0); Sodium 142 mmol/L (137-145)
[2023-10-14 10:40] LABS: Anisocytosis 1+; Hypochromasia 1+; Platelet Estimate Adequate (Adequate); Procalcitonin 0.3 ng/mL; Schistocytes None Seen
[2023-10-14] MEDS: MEROPENEM 1 GM/NS 100 ML 1 GM/100 ML BAG IVPB ×2 (11:13→22:14)
[2023-10-14] MEDS: LINEZOLID 600 MG/300 ML 600 MG/300 ML SOLN 300 MG IVPB ×2 (11:14→20:31)
[2023-10-14 11:54] LABS: Glucose Point of Care 173 mg/dl (65-105)
[2023-10-14] MEDS: DEXTROSE 5%/0.9% SOD CHL 1,000 ML 100 ML IV CONT (12:42)
[2023-10-14 13:16] LABS: Amphetamine Screen Urine Negative (Negative); Barbiturate Screen Urine Negative (Negative); Benzodiazepines Screen Urine Positive (Negative); Cannabinoid Screen Urine Negative (Negative); Cocaine Screen Urine Negative (Negative); Methadone Screen Urine Negative (Negative); Opiate Screen Urine Positive (Negative); Phencyclidine Screen Urine Negative (Negative)
--- NOTE | 2023-10-14 16:14 | PC.NURSE ---
Patients brought up most updated medication list of patients home medications. Spouse states that original list given on admission was an old list that needs discarded. List of updated medications placed in chart for record. Home medications updated to match current list in Home medications profile in patients electronic chart. MD Dr. Giles made aware of alterations to home medication list.
[2023-10-14 17:42] LABS: Glucose Point of Care 165 mg/dl (65-105)
[2023-10-14 19:19] LABS: Anion Gap 11 mmol/L (4-12); Blood Urea Nitrogen 36 mg/dL (7-17); Calcium 9.8 mg/dL (8.4-10.2); Carbon Dioxide 28 mmol/L (22-30); Chloride 104 mmol/L (98-107); Estimated CRCL calculation 32 ml/min; Estimated Glomerular Filt Rate 29; Glucose 159 mg/dL (65-110); Potassium 5.2 mmol/L (3.4-5.0); Sodium 143 mmol/L (137-145)
[2023-10-14 23:23] LABS: Glucose Point of Care 159 mg/dl (65-105)
[2023-10-15] VITALS (20 sets, daily range): BP systolic 147–188; BP diastolic 72–100; PULSE 69–86; RESP 20–26; TEMP 36.4–37; O2SAT 89–100
[2023-10-15] MEDS: DEXTROSE 5%/0.9% SOD CHL 1,000 ML 70 ML IV CONT (03:31)
[2023-10-15 05:28] LABS: Basophils Percent Auto 0.1 % (0.2-1.2); Hematocrit 26.9 % (37.0-47.0); Hemoglobin 7.8 g/dL (12.0-15.0); Immature Granulocyte Absolute 0.04 K/mm3 (0.00-0.031); Immature Granulocyte Percent A 0.4 % (0-0.5); Lymphocytes Absolute Auto 0.28 K/mm3 (0.9-3.2); Lymphocytes Percent Auto 2.8 % (18.3-44.2); Mean Corpuscular Hemoglobin 29.1 pg (26-34); Mean Corpuscular Volume 100.4 fl (80-100); Mean Platelet Volume 12.7 fl (7.4-10.4); Monocytes Percent Auto 10.2 % (2.6-8.5); Neutrophils Absolute Auto 8.8 K/mm3 (1.3-6.7); Neutrophils Percent Auto 86.5 % (45.5-73.1); Nucleated Red Blood Cells Perc 0.4 % (0.0-0.2); Platelet Count Result 226 k/mm3 (150-375); Red Blood Count 2.68 M/mm3 (4.2-5.4); White Blood Count 10.1 K/mm3 (4.5-10.0)
[2023-10-15 05:40] LABS: Alanine Aminotransferase 17 U/L (6-35); Albumin Level 4.4 g/dL (3.5-5.1); Alkaline Phosphatase 108 U/L (38-126); Anion Gap 14 mmol/L (4-12); Aspartate Amino Transferase 26 U/L (14-36); Bilirubin,Total 0.8 mg/dL (0.2-1.3); Blood Urea Nitrogen 36 mg/dL (7-17); Calcium 9.8 mg/dL (8.4-10.2); Carbon Dioxide 23 mmol/L (22-30); Chloride 108 mmol/L (98-107); Estimated CRCL calculation 32 ml/min; Estimated Glomerular Filt Rate 29; Glucose 156 mg/dL (65-110); Magnesium 1.6 mg/dL (1.6-2.3); Phosphorus 3.9 mg/dL (2.5-4.5); Potassium 5.1 mmol/L (3.4-5.0); Sodium 145 mmol/L (137-145)
[2023-10-15 06:31] LABS: Platelet Estimate Adequate (Adequate)
[2023-10-15 06:32] LABS: Anisocytosis 1+; Hypochromasia 1+; Schistocytes None Seen
--- NOTE | 2023-10-15 07:15 | PCRCNOTE ---
Patient appeared agitated throughout the night. Pulled off pulse ox for Overnight Oximetry study shortly after testing started.
--- NOTE | 2023-10-15 09:26 | PM.IMPN ---
Progress Note: A&P Assessment and Plan (1) Altered mental status: Code(s): R41.82 - Altered mental status, unspecified Status: Acute Assessment and Plan: Patient presents with generalized weakness. She was alert and oriented on admission with complaints of generalized weakness, shortness of breath, urinary incontinent and hx of recurrent UTIs but condition worsened that night. CT brain on admission showing now acute findings. Cervical spine CT also performed showing no acute findings. CXR showing mild bibasilar pulm edema. ABG today 7.36/44/144 on 3.5L. WBC 14. Hgb 8 (stable).Ammonia <9. TSH normal. UA noted. UDS positive for benzodiazepine and opiates. On benzodiazpines at home. No narcotics on home med list and none given here. Etiology unclear. Consider withdrawal from her medications. Consider sepsis. UCx positive. Meningitis seems less likely but no improvement wince starting IV abx. BCx pending. UCx GNB. Spoke with yesterday (10/13) who stated that she does have these episodes when she is dealing with infection but this was more severe then usual. He handles all her meds and stated it would be unlikely that she has access to her pills so overdose unlikely. He has been giving her medications as prescribed from last discharge. She is slightly calmer so will attempt LP and repeat CT brain. Continue IV abx. Add acyclovir. Discussed with PharmD ID and felt patient does not need Ampicillin. Schedule Ativan to see if this is w/d from benzos and/or sinemet/oxcarbazepine. Neuro consult Consider NGT so we can give her Sinemet (2) Generalized weakness: Code(s): R53.1 - Weakness Status: Acute Assessment and Plan: As above PT/OT when able (3) Hyperkalemia: Code(s): E87.5 - Hyperkalemia Status: Acute Assessment and Plan: Noted on admission related to her underlying CKD. Repeat Calcium and bicarb. Repeat potassium better. Follow (4) Atrial flutter: Code(s): I48.92 - Unspecified atrial flutter Status: Acute Assessment and Plan: Patient has hx of AFlutter. EKG on admission showing sinus mechanism Amiodarone and Eliquis in hold since NPO Monitor on tele (5) Chronic anemia: Code(s): D64.9 - Anemia, unspecified Status: Acute Assessment and Plan: Patient with chronic anemia with hemoglobin running 7-8 range. Colonoscopy Feb 2022 showing diverticulosis. HH stable in the 7-8 range. Monitor H&H (6) Chronic kidney disease, stage 3: Qualifiers: Chronic kidney disease stage 3 subtype: stage 3a (GFR 45-59) Qualified Code(s): N18.31 - Chronic kidney disease, stage 3a Code(s): N18.30 - Chronic kidney disease, stage 3 unspecified Status: Acute Assessment and Plan: Patient with CKD with probable baseline of Cr 1.3-1.5 Also with hyperkalemia as above Cr slightly above baseline. Continue maintenace fluids. She does have mild pulmonary edema on CXR so will limit IV fluids De La Cruz cath secured Monitor UOP, electrolytes and renal fxn. (7) Parkinson disease: Code(s): G20 - Parkinson's disease Status: Chronic Assessment and Plan: Patient has had issues with her medciations recently with stopping medications but reintroducing some of these that has lead to re-hospitalization. Home meds on hold at this time. states he is providing meds as prescribed. 2 May need NGT for meds (8) Type 2 diabetes mellitus: Qualifiers: Diabetes mellitus custodial insulin use: with continuous churn buttermaker use Diabetes mellitus complication status: without complication Qualified Code(s): E11.9 - Type 2 diabetes mellitus without complications; Z79.4 - [facility] (current) use of insulin Code(s): E11.9 - Type 2 diabetes mellitus without complications Status: Chronic Assessment and Plan: Recent A1c 7.4. The patient's blood glucose was reviewed on 10/14 Glucose remains we
--- NOTE | 2023-10-15 10:56 | PCSTNOTE ---
BSE still not completed as RN reports patient is not able to safely participate. Will discuss with doctor concerning discontinuing the order until patient able to safely participate.
--- NOTE | 2023-10-15 11:06 | WPDNEURCNPN ---
Consult date: 10/15/23 HPI: Jenni Rondon is a 73 year old femaleAdmitted to the hospital through the emergency room for the complaints of difficulties in breathing along with generalized weakness and urinary incontinence. Two weeks ago and discharged about 10 days ago patient lives at home with her and reportedly has been spending most of her day in bed due to generally feeling weak. She used to be able to ambulate around the home using her walker but now she can not even walk with a walker she gave no history of fever or chills but she complained of urinary urgency patient does have history of COPD for which she has been taking nebulizer he gave no history of any other associated symptomatology she has been taking carbidopa levodopa 3 tablets 3 times a day, allopurinol 100mg daily Jardiance 10mg daily ropinirole 0.5mg at night gabapentin 100mg 3 times a day amiodarone 200mg daily apixaban 2.5mg q.12 hours and atorvastatin 80mg daily she is allergic to iodine, latex, and contrast media, she is known to have bipolar 1 disorder with anxiety, chronic renal disease stage III, COPD, diabetes with diabetic polyneuropathy, GERD, and obstructive sleep apnea with restless leg syndrome as well. Her CT scan of the brain and cervical spine were without acute finding on blood gases she was found to have CO2 retention along with the atrial flutter for brief period of time , on the floor initially she was found to be generally chronically ill with bruising on the left cheek left side of the neck keeping her right eye closed known labored breathing and nonfocal neuro exam. Her electrolytes were normal except BUN 28 creatinine 1.50 glucose 161. Since admission this time the CT scan of the head revealed only atrophy and the chronic white matter injury. [facility] Past Medical History Medical History (Updated 10/13/23 @ 14:03 by Sasha Sales PA-C) Anxiety Bipolar 1 disorder BMI greater than 40 Chronic anemia Chronic kidney disease, stage 3 Baseline creatinine ranges between 1.2 and 1.50. Chronic obstructive pulmonary disease Depression Diabetic polyneuropathy Gastroesophageal reflux disease GI bleed (01/2010) Secondary to peptic ulcer. Heart failure with preserved ejection fraction Hyperlipidemia Hypertension Hypothyroidism Impaired cognition Junctional rhythm Kidney stones Neuropathy Obstructive sleep apnea Patient does not use PAP therapy at nighttime. Osteoarthritis Parkinson disease Restless leg syndrome Type 2 diabetes mellitus Surgical History Surgical History History of bilateral knee arthroplasty History of hysterectomy History of sinus surgery Family History Family History Grandparent Diabetes mellitus Acute myocardial infarction Father Acute myocardial infarction Mother Acute myocardial infarction Social History Social History (Updated 10/13/23 @ 14:03 by Sasha Sales PA-C) Social History: Surrogate decision maker: Fly Rondon, . Code status: Full code. Smoking packs per day: 1 Smoking cigarettes per day: 20.0 Years smoked: 20 Smoking pack-years: 20.00 Smoking status: Former smoker Tobacco type: cigarettes Second hand tobacco smoke exposure: No Alcohol intake: never Substance use: never Substance use type: does not use Do You Feel Safe in your Home?: Yes Lack of Transportation: No Lack of Food: Never True Current Housing: I Have Housing Concerned About Future Housing: No Difficulty Paying Gas/Electric Bills: No Difficulty Paying for Meds: No Currently Unemployed: No Education: High School Diploma/GED Difficulty w/ Childcare or Family Care: No Additional living arrangements comments: Resides in [place] with her of over 50 years. They have 3 children. Spiritual care concerns: No Meds Home Medications and Allergies
[2023-10-15] MEDS: hydrALAZINE HCL 20 MG/ML VIAL 10 MG IV PUSH (11:11)
[2023-10-15] MEDS: LORazepam INJ (*CRX) 2 MG/ML VIAL 1 MG IV PUSH ×2 (12:15→14:38)
--- NOTE | 2023-10-15 12:34 | WPDNEURCNPN ---
Assessment and Plan Assessment and plan (1) Generalized weakness: Code(s): R53.1 - Weakness Status: Acute (2) Decreased mobility: Code(s): R26.89 - Other abnormalities of gait and mobility Status: Acute (3) Impaired mobility and activities of daily living: Code(s): Z74.09 - Other reduced mobility; Z78.9 - Other specified health status Status: Acute Plan 1. Negative CT scan of the head the neurological symptomatology raising the possibility of TIA superimposed on her underlying neurological status, cervical spine CT scan is compatible moderate cervical spondylosis but no significant cervical stenosis, to warrant any neurosurgical intervention 2 history of Parkinson disease although she is taking the medication appropriately will benefit from the further physical therapy. She is already taking apixaban 2.5mg b.i.d., atorvastatin 80mg daily, carbidopa levodopa 50/200 extended release 1 tablet at night and carbidopa levodopa 25/103 tablets 3 times a day and that treatment can be continued as such the Consult date: 10/15/23 HPI: Jenni Rondon is a 73 year old female admitted to the hospital through the emergency room for the complaints of difficulties in breathing along with generalized weakness and urinary incontinence. Two weeks ago patient was discharged and patient lives at home with her totally has been spending most of her day in bed due to generally feeling weak. She used to be able to ambulate around the home using her walker but now she cannot even walk with a walker, no history of fever or chill but she complained of urinary urgency patient does have a history of COPD for which she has been taking nebulizer treatment she gave no history of any other associated symptomatology he has been taking carbidopa levodopa 3 tablets 3 times a day, allopurinol 100mg daily, Jardiance 10mg daily, ropinirole 0.5mg at night, gabapentin 100mg 3 times a day, amiodarone 200mg daily and apixaban 2.5mg q.12 hours in addition to atorvastatin 80mg daily she is allergic to iodine latex and contrast media she is known to have bipolar 1 disorder with anxiety, chronic renal disease stage III, COPD, diabetes with diabetic polyneuropathy and GERD and also obstructive sleep apnea his restless leg syndrome her CT scan the brain and cervical spine were without any acute finding. She was found to have CO2 retention on arterial blood gases and also atrial flutter for brief period of time on the floor initially she was found to be generally chronically ill with bruising on the left cheek exercise and neck keeping her right eye closed and labored breathing also nonfocal neurological exam electrolytes were normal except BUN 28 creatinine 1.[address] of the brain revealed only atrophy with chronic white matter changes PMFSH Past Medical History Medical History Anxiety Bipolar 1 disorder BMI greater than 40 Chronic anemia Chronic kidney disease, stage 3 Baseline creatinine ranges between 1.2 and 1.50. Chronic obstructive pulmonary disease Depression Diabetic polyneuropathy Gastroesophageal reflux disease GI bleed (01/2010) Secondary to peptic ulcer. Heart failure with preserved ejection fraction Hyperlipidemia Hypertension Hypothyroidism Impaired cognition Junctional rhythm Kidney stones Neuropathy Obstructive sleep apnea Patient does not use PAP therapy at nighttime. Osteoarthritis Parkinson disease Restless leg syndrome Type 2 diabetes mellitus Surgical History Surgical History History of bilateral knee arthroplasty History of hysterectomy History of sinus surgery Family History Family History Grandparent Diabetes mellitus Acute myocardial infarction Father Acute myocardial infarction Mother Acute myocardial infarction Social History Social Hist
[2023-10-15 12:57] LABS: Glucose CSF 107 mg/dL (40-70); Total Protein CSF 49 mg/dL (12-60)
[2023-10-15 12:59] LABS: Appearance CSF Clear (Clear); CSF source CSF; Color CSF Colorless (Colorless); Nucleated Cell CSF 0 /uL (0-5); Red Blood Cell CSF 0 (0-2)
--- NOTE | 2023-10-15 13:04 | P.CDI_ITS ---
CDI Query Clarification Request Please specify type and acuity of heart failure if known. Clinical Indicators: CHF has been documented, BNP 54789, CXR on 10/13 states Mild bibasilar pulmonary edema, ER documented patient at 5L NC with a home setting up to 4L Treatment: IV Bumex was given on 10/13 * Acute * Chronic * Acute on Chronic * Unknown * Systolic * Diastolic * Combined Systolic and Diastolic * Unknown
--- NOTE | 2023-10-15 13:04 | WPDCDIQUERY2 ---
CDI Query Clarification Request Please specify type and acuity of heart failure if known. Clinical Indicators: CHF has been documented, BNP 61915, CXR on 10/13 states Mild bibasilar pulmonary edema, ER documented patient at 5L NC with a home setting up to 4L Treatment: IV Bumex was given on 10/13 Acute Chronic Acute on Chronic Unknown Systolic Diastolic Combined Systolic and Diastolic Unknown
[2023-10-15] MEDS: DEXTROSE 5% IVPB ×2 (14:39→20:18)
[2023-10-15] MEDS: WATER IVPB ×2 (14:39→20:18)
[2023-10-15] MEDS: ACYCLOVIR SODIUM IVPB ×2 (14:39→20:18)
[2023-10-15 14:46] LABS: Glucose Point of Care 136 mg/dl (65-105)
[2023-10-15] MEDS: MEROPENEM 2 GM in SODIUM CHLORIDE 0.9% IV 100 ML IVPB (16:31)
--- NOTE | 2023-10-15 17:05 | PC.NURSE ---
Dr. Mchugh notified of lumbar puncture opening pressure of 41.5 cm. Reviewed CSF total protein of 49. No new orders.
[2023-10-15] MEDS: LINEZOLID 600 MG/300 ML 600 MG/300 ML SOLN 300 MG IVPB (17:16)
[2023-10-15] MEDS: LORazepam INJ (*CRX) 2 MG/ML VIAL 0.5 MG IV PUSH ×2 (17:17→21:28)
--- NOTE | 2023-10-15 17:34 | PC.NURSE ---
Dr. Giles made aware of opening lumbar pressure of 41.5 cm. Reports to bedside to perform assessment. No new orders at this time.
[2023-10-15 18:00] LABS: Glucose Point of Care 163 mg/dl (65-105)
[2023-10-15] MEDS: BUMETANIDE INJ 1 MG/4 ML VIAL IV PUSH (18:40)
[2023-10-15 19:17] LABS: Potassium 4.4 mmol/L (3.4-5.0)
[2023-10-16] VITALS (19 sets, daily range): BP systolic 105–165; BP diastolic 48–98; PULSE 55–86; RESP 20–26; TEMP 36–36.9; O2SAT 94–100
[2023-10-16 00:07] LABS: Glucose Point of Care 116 mg/dl (65-105)
[2023-10-16] MEDS: MEROPENEM 2 GM in SODIUM CHLORIDE 0.9% IV 100 ML IVPB ×2 (03:14→14:16)
[2023-10-16] MEDS: LORazepam INJ (*CRX) 2 MG/ML VIAL 0.5 MG IV PUSH ×2 (03:14→09:31)
--- NOTE | 2023-10-16 05:14 | PCRCNOTE ---
Sputum collection not done due to the patient not allowing me to put mask on. Pt seems agitated. Notified Pt's nurse.
[2023-10-16] MEDS: LINEZOLID 600 MG/300 ML 600 MG/300 ML SOLN 300 MG IVPB ×2 (06:05→17:42)
[2023-10-16 06:10] LABS: Glucose Point of Care 130 mg/dl (65-105)
[2023-10-16 06:50] LABS: Basophils Percent Auto 0.2 % (0.2-1.2); Hematocrit 26.3 % (37.0-47.0); Hemoglobin 7.9 g/dL (12.0-15.0); Immature Granulocyte Percent A 0.9 % (0-0.5); Lymphocytes Absolute Auto 0.38 K/mm3 (0.9-3.2); Lymphocytes Percent Auto 3.5 % (18.3-44.2); Mean Corpuscular Hemoglobin 29.4 pg (26-34); Mean Corpuscular Volume 97.8 fl (80-100); Mean Platelet Volume 11.3 fl (7.4-10.4); Monocytes Absolute Auto 1.1 K/mm3 (0.1-0.6); Monocytes Percent Auto 10.2 % (2.6-8.5); Neutrophils Absolute Auto 9.3 K/mm3 (1.3-6.7); Neutrophils Percent Auto 85.2 % (45.5-73.1); Nucleated Red Blood Cells Perc 0.2 % (0.0-0.2); Platelet Count Result 183 k/mm3 (150-375); Red Blood Count 2.69 M/mm3 (4.2-5.4); Red Cell Distribution Width 18.9 % (11.5-14.5); White Blood Count 10.9 K/mm3 (4.5-10.0)
[2023-10-16 07:01] LABS: Alanine Aminotransferase 14 U/L (6-35); Albumin Level 4.1 g/dL (3.5-5.1); Alkaline Phosphatase 105 U/L (38-126); Anion Gap 10 mmol/L (4-12); Aspartate Amino Transferase 28 U/L (14-36); Bilirubin,Total 0.8 mg/dL (0.2-1.3); Blood Urea Nitrogen 32 mg/dL (7-17); Calcium 9.5 mg/dL (8.4-10.2); Carbon Dioxide 30 mmol/L (22-30); Chloride 106 mmol/L (98-107); Estimated CRCL calculation 33 ml/min; Estimated Glomerular Filt Rate 29; Glucose 165 mg/dL (65-110); Magnesium 1.5 mg/dL (1.6-2.3); Phosphorus 3.6 mg/dL (2.5-4.5); Sodium 146 mmol/L (137-145)
[2023-10-16 07:31] LABS: Platelet Estimate Adequate (Adequate)
[2023-10-16 07:33] LABS: Anisocytosis 1+; Hypochromasia 2+; Schistocytes None Seen
--- NOTE | 2023-10-16 09:05 | PCSTNOTE ---
The patient treatment was not able to be completed on 10/15 due to not awake and alert. This is the third day patient is unable to safely participate in a bedside swallow evaluation. Order is being discharged this date. Please re-order bedside swallow evaluation should patient become more appropriate to participate. Thank you for this referral.
[2023-10-16] MEDS: DEXTROSE 5% IVPB ×2 (09:21→20:05)
[2023-10-16] MEDS: ACYCLOVIR SODIUM IVPB ×2 (09:21→20:05)
[2023-10-16] MEDS: WATER IVPB ×2 (09:21→20:05)
--- NOTE | 2023-10-16 13:23 | PM.IMPN ---
Progress Note: A&P Assessment and Plan (1) Altered mental status: Code(s): R41.82 - Altered mental status, unspecified Status: Acute Assessment and Plan: Patient presents with generalized weakness. She was alert and oriented on admission with complaints of generalized weakness, shortness of breath, urinary incontinent and hx of recurrent UTIs but condition worsened that night. CT brain on admission showing now acute findings. Cervical spine CT also performed showing no acute findings. CXR showing mild bibasilar pulm edema. ABG today 7.36/44/144 on 3.5L. WBC 14. Hgb 8 (stable).Ammonia <9. TSH normal. UA noted. UDS positive for benzodiazepine and opiates. On benzodiazpines at home. No narcotics on home med list and none given here. Etiology unclear. Consider withdrawal from her medications. Consider sepsis. UCx positive. Meningitis seems less likely but no improvement wince starting IV abx. BCx pending. UCx GNB. Sp LP and sp repeat CT brain. Continue IV abx. Add acyclovir. Discussed with PharmD ID and felt patient does not need Ampicillin. Schedule Ativan to see if this is w/d from benzos and/or sinemet/oxcarbazepine. Neuro consult Neurology on board (2) Generalized weakness: Code(s): R53.1 - Weakness Status: Acute Assessment and Plan: As above PT/OT when able (3) Hyperkalemia: Code(s): E87.5 - Hyperkalemia Status: Acute Assessment and Plan: watch BMP and UO (4) Atrial flutter: Code(s): I48.92 - Unspecified atrial flutter Status: Acute Assessment and Plan: Patient has hx of AFlutter. EKG on admission showing sinus mechanism Amiodarone and Eliquis in hold since NPO Monitor on tele (5) Chronic anemia: Code(s): D64.9 - Anemia, unspecified Status: Acute Assessment and Plan: Patient with chronic anemia with hemoglobin running 7-8 range. Colonoscopy Feb 2022 showing diverticulosis. HH stable in the 7-8 range. (6) Chronic kidney disease, stage 3: Qualifiers: Chronic kidney disease stage 3 subtype: stage 3a (GFR 45-59) Qualified Code(s): N18.31 - Chronic kidney disease, stage 3a Code(s): N18.30 - Chronic kidney disease, stage 3 unspecified Status: Acute Assessment and Plan: Patient with CKD with probable baseline of Cr 1.3-1.5 Also with hyperkalemia as above Cr slightly above baseline. Continue maintenance fluids. She does have mild pulmonary edema on CXR so will limit IV fluids De La Cruz cath secured (7) Parkinson disease: Code(s): G20 - Parkinson's disease Status: Chronic Assessment and Plan: Patient has had issues with her medciations recently with stopping medications but reintroducing some of these that has lead to re-hospitalization. 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 The patient's blood glucose was reviewed on 10/14 Glucose remains well controlled. Continue AccuCheks covering with sliding scale. Hypoglycemia protocol available as needed. Continue to follow (9) Chronic obstructive pulmonary disease: Code(s): J44.9 - Chronic obstructive pulmonary disease, unspecified Status: Acute Assessment and Plan: Patient has a history of COPD and is on 2L at rest, 3 L with exertion and at night. oxygen as tolerated Subjective Date/time seen: 10/16/23 13:23 Interval history: 73yo female with DERRICK intolerant to CPAP, Parkinson's disease, morbid obesity, CHF with preserved ejection fraction, DM with peripheral neuropathy, hypo
[2023-10-16] MEDS: LORazepam INJ (*CRX) 2 MG/ML VIAL 1 MG IV PUSH (14:15)
[2023-10-16 15:18] LABS: Glucose Point of Care 124 mg/dl (65-105)
--- NOTE | 2023-10-16 16:11 | PC.NURSE ---
Pt screaming and thrashing in bed. Attempting to pull out izquierdo. Unable to redirect. Dr. Mchugh made aware. Advised to discontinue ativan and give 2.5 of Zyprexa x 1 dose now. Advised to call back in 3 hours.
[2023-10-16] MEDS: OLANZapine 10 MG INJ VIAL 2.5 MG IM ×2 (16:51→19:14)
[2023-10-16] MEDS: WATER, STERILE FOR INJECTION 10 ML VIAL XX (16:57)
[2023-10-16 17:35] LABS: Glucose Point of Care 121 mg/dl (65-105)
--- NOTE | 2023-10-16 18:51 | PC.NURSE ---
Reported to Dr. Mchugh that patient fell asleep for approximately one hour after dose of Zyprexa. Currently has a tremor, is babbling words, and occationally shouting. Advised to give another one time dose of Zyprexa 2.5mg and call back in 2 hours. Will report to shift engineer.
[2023-10-16] MEDS: TOLNAFTATE 1% POWDER 45 GM BTL 1 APPLIC TOPICAL (20:05)
--- NOTE | 2023-10-16 21:02 | PC.NURSE ---
Dr. Mchugh updated at 2100 on patient status after receiving second dose of 2.5 mg Zyprexa. Received order for physician to nurse communication to administer 5 mg IM Zyprexa in AM if needed for agitation. Will continue to monitor.
--- NOTE | 2023-10-16 21:04 | PC.NURSE ---
Patient's daughter Catarina updated on patient's status after receiving second dose of IM zyprexa. No further questions at this time.
[2023-10-17] VITALS (19 sets, daily range): BP systolic 120–163; BP diastolic 61–108; PULSE 52–78; RESP 18–22; TEMP 36.5–37.4; O2SAT 98–100
[2023-10-17 00:52] LABS: Glucose Point of Care 116 mg/dl (65-105)
[2023-10-17] MEDS: MEROPENEM 2 GM in SODIUM CHLORIDE 0.9% IV 100 ML IVPB ×2 (03:08→15:44)
[2023-10-17] MEDS: LINEZOLID 600 MG/300 ML 600 MG/300 ML SOLN 300 MG IVPB (03:51)
[2023-10-17] MEDS: SODIUM CHLOR 3% 15 ML NEB (RESPIRATORY THERAPY) 6 ML INHALATION (05:03)
--- NOTE | 2023-10-17 05:15 | PCRCNOTE ---
Pt unable to cough anything up at this time.
[2023-10-17 05:16] LABS: Basophils Percent Auto 0.2 % (0.2-1.2); Eosinophils Absolute Auto 0.4 K/mm3 (0-0.3); Eosinophils Percent Auto 3.2 % (0-4.4); Hematocrit 26.3 % (37.0-47.0); Hemoglobin 7.7 g/dL (12.0-15.0); Immature Granulocyte Absolute 0.06 K/mm3 (0.00-0.031); Immature Granulocyte Percent A 0.5 % (0-0.5); Lymphocytes Absolute Auto 0.64 K/mm3 (0.9-3.2); Lymphocytes Percent Auto 5.4 % (18.3-44.2); Mean Corpuscular HGB Conc 29.3 g/dl (32-36); Mean Corpuscular Hemoglobin 28.7 pg (26-34); Mean Corpuscular Volume 98.1 fl (80-100); Mean Platelet Volume 11.8 fl (7.4-10.4); Monocytes Absolute Auto 1.2 K/mm3 (0.1-0.6); Monocytes Percent Auto 10.1 % (2.6-8.5); Neutrophils Absolute Auto 9.6 K/mm3 (1.3-6.7); Neutrophils Percent Auto 80.6 % (45.5-73.1); Nucleated Red Blood Cells Perc 0.2 % (0.0-0.2); Platelet Count Result 183 k/mm3 (150-375); Red Blood Count 2.68 M/mm3 (4.2-5.4); Red Cell Distribution Width 18.9 % (11.5-14.5); White Blood Count 11.9 K/mm3 (4.5-10.0)
[2023-10-17 05:31] LABS: Alanine Aminotransferase 13 U/L (6-35); Albumin Level 3.9 g/dL (3.5-5.1); Alkaline Phosphatase 95 U/L (38-126); Anion Gap 8 mmol/L (4-12); Aspartate Amino Transferase 26 U/L (14-36); Bilirubin,Total 0.8 mg/dL (0.2-1.3); Blood Urea Nitrogen 27 mg/dL (7-17); Calcium 9.2 mg/dL (8.4-10.2); Carbon Dioxide 33 mmol/L (22-30); Chloride 105 mmol/L (98-107); Estimated CRCL calculation 38 ml/min; Estimated Glomerular Filt Rate 34; Glucose 152 mg/dL (65-110); Magnesium 1.5 mg/dL (1.6-2.3); Phosphorus 2.9 mg/dL (2.5-4.5); Potassium 3.6 mmol/L (3.4-5.0); Sodium 146 mmol/L (137-145)
[2023-10-17 05:37] LABS: NT Pro B Type Natriuretic Pept > 30000 pg/mL (19.9-100)
[2023-10-17 05:38] LABS: Anisocytosis 1+; Hypochromasia 2+; Platelet Estimate Adequate (Adequate)
[2023-10-17 05:39] LABS: Schistocytes None Seen
--- NOTE | 2023-10-17 10:48 | WPDNEUROPN ---
Progress Note: A&P Assessment and Plan (1) Bipolar 1 disorder: Code(s): F31.9 - Bipolar disorder, unspecified Status: Acute (2) Gait abnormality: Code(s): R26.9 - Unspecified abnormalities of gait and mobility Status: Acute (3) Diabetes mellitus with hyperglycemia: Qualifiers: Diabetes mellitus type: type 2 Diabetes mellitus intermediate insulin use: with terminal system operator use Qualified Code(s): E11.65 - Type 2 diabetes mellitus with hyperglycemia; Z79.4 - custodial (current) use of insulin Code(s): E11.65 - Type 2 diabetes mellitus with hyperglycemia Status: Acute (4) Impaired mobility and activities of daily living: Code(s): Z74.09 - Other reduced mobility; Z78.9 - Other specified health status Status: Acute (5) Generalized weakness: Code(s): R53.1 - Weakness Status: Acute (6) COPD (chronic obstructive pulmonary disease): Qualifiers: COPD type: unspecified COPD Qualified Code(s): J44.9 - Chronic obstructive pulmonary disease, unspecified Code(s): J44.9 - Chronic obstructive pulmonary disease, unspecified Status: Acute (7) Recurrent UTI: Code(s): N39.0 - Urinary tract infection, site not specified Status: Acute Plan 1. Acute changes in the mental status with negative spinal fluid study patient is back to normal on Zyprexa 5mg per 24hours all the lab is not consistent with the sepsis at this stage but she is getting the antibiotic till the final cultures are obtained on the spinal fluid. All the pros and cons discussed with the . Time Spent With Patient Time with patient: 25 - 35 minutes Subjective Date/time seen: 10/17/23 10:48 Interval history: 73 years old has been admitted to the hospital for the complaints of difficulties in breathing, generalized weakness and urinary incontinence. Over the last 24 to 36 hours she has been extremely agitated and combative receive tranquilizers without any significant relief we were called last night we gave her Zyprexa 2.5mg twice and this morning she looks completely back to her normal status her is at the bedside she is awake alert carrying a conversation and also making jokes. Her CBC shows WBC is only 11.9 the hemoglobin is only 7.7 platelet count is 183, ABGs on 11/02 535 were normal, basic metabolic panel was also fairly normal sodium was 146 CO2 33 BUN 27 creatinine 1.50 but glucose 152 UA was normal with 3+ protein otherwise, she had spinal tap done because of the agitation and change in mental status the CSF is clear colorless with glucose 107 room RBCs no cells and protein 49. CSF culture is negative up until now and other extensive testing in the CSF is negative and some of them are pending, chest x-ray in 9 4 with possible minimal central thomas changes and CT scan of the brain with atrophy but no bleed or tumor or stroke, all the findings were discussed with the who is at the bedside patient herself looks much better medications were continued as such particularly advise if all the cultures keep coming back negative the antibiotics will be stopped except 1 for the E coli. Review of Systems Review of Systems: All systems reviewed & are unremarkable except as noted in HPI and below Exam Narrative: she is awake alert following verbal commands has no difficulties in speech and it is not dysarthric neck supple with no meningeal signs she is able to move both upper and lower extremities she has no spontaneous tremor in the upper extremities but she was noted to have tremor of the right lower extremity cranial examination is normal and heart regular lungs with occasional rhonchi. Objective Data Vital Signs Vital Signs: Vital Signs - 24 hr 10/16/23 12:00 10/16/23 12:00 10/16/23 14:00 Temperature 36.0 C L Pulse Rate 78 72 55 L Respiratory Rate 24 H Blood Pressure 134/48 L Pulse Oximetry 97 Oxygen Delivery Oxygen Flow Rate Fraction
[2023-10-17 12:03] LABS: Glucose Point of Care 124 mg/dl (65-105)
--- NOTE | 2023-10-17 13:23 | PM.IMPN ---
Progress Note: A&P Assessment and Plan (1) Altered mental status: Code(s): R41.82 - Altered mental status, unspecified Status: Acute Assessment and Plan: Patient presents with generalized weakness. She was alert and oriented on admission with complaints of generalized weakness, shortness of breath, urinary incontinent and hx of recurrent UTIs but condition worsened that night. CT brain on admission showing now acute findings. Cervical spine CT also performed showing no acute findings. CXR showing mild bibasilar pulm edema. Consider sepsis. UCx positive. Meningitis seems less likely but no improvement wince starting IV abx. BCx pending. UCx GNB. Sp LP and sp repeat CT brain. Continue IV abx. Add acyclovir. Discussed with PharmD ID and felt patient does not need Ampicillin. Schedule Ativan to see if this is w/d from benzos and/or sinemet/oxcarbazepine. Neuro consult Neurology on board, mri brain neg and LP negative except for opening pressure UC shows EColi AMS likely uti IV abx changed to Merrem only (2) Generalized weakness: Code(s): R53.1 - Weakness Status: Acute Assessment and Plan: As above PT/OT when able (3) Hyperkalemia: Code(s): E87.5 - Hyperkalemia Status: Acute Assessment and Plan: watch BMP and UO (4) Atrial flutter: Code(s): I48.92 - Unspecified atrial flutter Status: Acute Assessment and Plan: Patient has hx of AFlutter. EKG on admission showing sinus mechanism Amiodarone and Eliquis in hold since NPO Monitor on tele (5) Chronic anemia: Code(s): D64.9 - Anemia, unspecified Status: Acute Assessment and Plan: Patient with chronic anemia with hemoglobin running 7-8 range. Colonoscopy Feb 2022 showing diverticulosis. HH stable in the 7-8 range. (6) Chronic kidney disease, stage 3: Qualifiers: Chronic kidney disease stage 3 subtype: stage 3a (GFR 45-59) Qualified Code(s): N18.31 - Chronic kidney disease, stage 3a Code(s): N18.30 - Chronic kidney disease, stage 3 unspecified Status: Acute Assessment and Plan: Patient with CKD with probable baseline of Cr 1.3-1.5 Also with hyperkalemia as above Cr slightly above baseline. Continue maintenance fluids. She does have mild pulmonary edema on CXR so will limit IV fluids De La Cruz cath secured (7) Parkinson disease: Code(s): G20 - Parkinson's disease Status: Chronic Assessment and Plan: Patient has had issues with her medciations recently with stopping medications but reintroducing some of these that has lead to re-hospitalization. (8) Type 2 diabetes mellitus: Qualifiers: Diabetes mellitus fpc insulin use: with intermediate accountant use Diabetes mellitus complication status: without complication Qualified Code(s): E11.9 - Type 2 diabetes mellitus without complications; Z79.4 - care home (current) use of insulin Code(s): E11.9 - Type 2 diabetes mellitus without complications Status: Chronic Assessment and Plan: Recent A1c 7.4. The patient's blood glucose was reviewed on 10/14 Glucose remains well controlled. Continue AccuCheks covering with sliding scale. Hypoglycemia protocol available as needed. Continue to follow pt started on clears an ensures advance as tolerated (9) Chronic obstructive pulmonary disease: Code(s): J44.9 - Chronic obstructive pulmonary disease, unspecified Status: Acute Assessment and Plan: Patient has a history of COPD and is on 2L at rest, 3 L with exertion and at night. oxygen as tolerated Subjective Date/time seen: 10/17/23 13:23 Interval history: 73yo female with DERRICK intolerant to CPAP, Parkinson's disease, morbid obesity, CHF with preserved ejection fraction, DM with peripheral neuropathy, hypothyroidism, CKD stage III, COPD and bipolar disorder/depression who presented to the ER fro
[2023-10-17] MEDS: ALPRAZolam (*CRX) 0.5 MG TABLET PO (15:30)
[2023-10-17] MEDS: TOLNAFTATE 1% POWDER 45 GM BTL 1 APPLIC TOPICAL ×2 (15:39→20:34)
[2023-10-17] MEDS: ONDANSETRON INJ 4 MG/2 ML VIAL IV PUSH (15:45)
[2023-10-17 16:15] LABS: Glucose Point of Care 170 mg/dl (65-105)
[2023-10-17] MEDS: INSULIN ASPART (*BKC) 100 UNITS/ML SUB-Q (20:43)
[2023-10-17 20:53] LABS: Glucose Point of Care 206 mg/dl (65-105)
[2023-10-18] VITALS (20 sets, daily range): BP systolic 121–157; BP diastolic 46–98; PULSE 52–74; RESP 18–22; TEMP 36.1–36.8; O2SAT 94–100
[2023-10-18] MEDS: MEROPENEM 1 GM/NS 100 ML 1 GM/100 ML BAG IVPB ×2 (04:38→16:31)
[2023-10-18 05:31] LABS: Basophils Percent Auto 0.3 % (0.2-1.2); Eosinophils Percent Auto 8.2 % (0-4.4); Hematocrit 26.7 % (37.0-47.0); Hemoglobin 8.1 g/dL (12.0-15.0); Immature Granulocyte Absolute 0.05 K/mm3 (0.00-0.031); Immature Granulocyte Percent A 0.4 % (0-0.5); Lymphocytes Absolute Auto 0.89 K/mm3 (0.9-3.2); Lymphocytes Percent Auto 7.4 % (18.3-44.2); Mean Corpuscular HGB Conc 30.3 g/dl (32-36); Mean Corpuscular Hemoglobin 29.7 pg (26-34); Mean Corpuscular Volume 97.8 fl (80-100); Mean Platelet Volume 12.8 fl (7.4-10.4); Monocytes Absolute Auto 1.2 K/mm3 (0.1-0.6); Monocytes Percent Auto 9.9 % (2.6-8.5); Neutrophils Absolute Auto 8.8 K/mm3 (1.3-6.7); Neutrophils Percent Auto 73.8 % (45.5-73.1); Nucleated Red Blood Cells Perc 0.2 % (0.0-0.2); Platelet Count Result 188 k/mm3 (150-375); Red Blood Count 2.73 M/mm3 (4.2-5.4); Red Cell Distribution Width 19.3 % (11.5-14.5)
[2023-10-18 05:40] LABS: Alanine Aminotransferase 14 U/L (6-35); Albumin Level 3.7 g/dL (3.5-5.1); Alkaline Phosphatase 94 U/L (38-126); Anion Gap 9 mmol/L (4-12); Aspartate Amino Transferase 23 U/L (14-36); Bilirubin,Total 0.7 mg/dL (0.2-1.3); Blood Urea Nitrogen 30 mg/dL (7-17); Calcium 9.1 mg/dL (8.4-10.2); Carbon Dioxide 30 mmol/L (22-30); Chloride 104 mmol/L (98-107); Estimated CRCL calculation 34 ml/min; Estimated Glomerular Filt Rate 29; Glucose 120 mg/dL (65-110); Magnesium 1.5 mg/dL (1.6-2.3); Phosphorus 3.4 mg/dL (2.5-4.5); Potassium 3.7 mmol/L (3.4-5.0); Sodium 143 mmol/L (137-145)
[2023-10-18] MEDS: SODIUM CHLOR 3% 15 ML NEB (RESPIRATORY THERAPY) 6 ML INHALATION (05:40)
--- NOTE | 2023-10-18 05:47 | PCRCNOTE ---
Unable to get a sputum sample after given the 7% NACL. Pt has a dry nonproductive cough.
[2023-10-18 06:51] LABS: Glucose Point of Care 117 mg/dl (65-105)
[2023-10-18] MEDS: TOLNAFTATE 1% POWDER 45 GM BTL 1 APPLIC TOPICAL ×2 (09:15→23:03)
[2023-10-18] MEDS: ACETAMINOPHEN 325 MG TABLET 650 MG PO ×2 (09:15→23:45)
[2023-10-18 11:24] LABS: Glucose Point of Care 166 mg/dl (65-105)
[2023-10-18] MEDS: ONDANSETRON INJ 4 MG/2 ML VIAL IV PUSH ×3 (12:01→23:45)
--- NOTE | 2023-10-18 13:06 | PM.IMPN ---
Progress Note: A&P Assessment and Plan (1) Altered mental status: Code(s): R41.82 - Altered mental status, unspecified Status: Acute (2) Generalized weakness: Code(s): R53.1 - Weakness Status: Acute (3) Hyperkalemia: Code(s): E87.5 - Hyperkalemia Status: Acute Assessment and Plan: (4) Atrial flutter: Code(s): I48.92 - Unspecified atrial flutter Status: Acute (5) Chronic anemia: Code(s): D64.9 - Anemia, unspecified Status: Acute (6) Chronic kidney disease, stage 3: Qualifiers: Chronic kidney disease stage 3 subtype: stage 3a (GFR 45-59) Qualified Code(s): N18.31 - Chronic kidney disease, stage 3a Code(s): N18.30 - Chronic kidney disease, stage 3 unspecified Status: Acute (7) Parkinson disease: Code(s): G20 - Parkinson's disease Status: Chronic (8) Type 2 diabetes mellitus: Qualifiers: Diabetes mellitus complication status: without complication 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 mellitus 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 CT head on admission showed no acute findings. Cervical CT with no acute findings. Chest x-ray with mild bibasilar pulmonary edema. Suspected sepsis. Urine culture positive. Meningitis seems less likely. Broad-spectrum antibiotics started on admission. Blood culture no growth to date. Urine culture Gram-negative bacilli. Status post lumbar puncture and repeat CT brain. Neurology consulted. Lumbar puncture negative for infection. Urine culture growing E coli. ESBL. On meropenem day 5/7 Generalized weakness PT OT to see Hyperkalemia continue to monitor Atrial flutter rate controlled on amiodarone and Eliquis. Chronic anemia hemoglobin 7-8 range. Colonoscopy February 2022 with diverticulosis. H&H stable CKD stage 3 baseline creatinine 1.3-1.5. Parkinson's disease Type 2 diabetes A1c 7.4 SSI continue to monitor COPD Chronic respiratory failure on home oxygen 2 L at rest 3 L with activity DVT prophylaxis Code status full code Disposition PT OT likely needs SNF placement Subjective Date/time seen: 10/18/23 13:06 Interval history: No overnight events. Working with therapy this a.m.. Still confused on and off. at bedside and discussed with him. Review of Systems Review of Systems: All systems reviewed & are unremarkable except as noted in HPI and below Exam Narrative: Gen - overweight elderly lady alert and conversant Neck - supple. Chest - clear anteriorly CV - RRR S1/S2. Tele showing no significant dysrhythmias Abd - Soft, no guarding. ND. - De La Cruz secured draining clear yellow urine. Ext - No pedal edema Neuro - no focal abnl Psych -normal mood Skin -no rash Objective Data Vital Signs Vital Signs: Vital Signs - 24 hr 10/17/23 16:07 10/17/23 14:00 10/17/23 16:00 Temperature 97.7 F Pulse Rate 61 56 L 61 Respiratory Rate 22 H Blood Pressure 146/61 H Pulse Oximetry 98 Oxygen Delivery Oxygen Flow Rate 10/17/23 16:00 10/17/23 18:00 10/17/23 20:35 Temperature Pulse Rate 66 66 Respiratory Rate 22 H Blood Pressure Pulse Oximetry 98 98 Oxygen Delivery Nasal Cannula Nasal Cannula Oxygen Flow Rate 4 4 10/17/23 20:35 10/17/23 20:00 10/17/23 22:00 Temperature 97.8 F Pulse Rate 60 57 L 52 L Respiratory Rate 18 Blood Pressure 120/85 Pulse Oximetry 98 Oxygen De
[2023-10-18 16:18] LABS: Glucose Point of Care 110 mg/dl (65-105)
[2023-10-18] MEDS: MAGNESIUM SULF 1 GM/D5W 100 ML 1 GM/100 ML BAG IVPB (17:27)
[2023-10-18 20:32] LABS: Glucose Point of Care 160 mg/dl (65-105)
[2023-10-19] VITALS (11 sets, daily range): BP systolic 113–152; BP diastolic 49–65; PULSE 49–59; RESP 12–24; TEMP 36.1–36.9; O2SAT 100
[2023-10-19 04:58] LABS: Basophils Percent Auto 0.2 % (0.2-1.2); Eosinophils Absolute Auto 1.1 K/mm3 (0-0.3); Eosinophils Percent Auto 11.6 % (0-4.4); Immature Granulocyte Absolute 0.04 K/mm3 (0.00-0.031); Immature Granulocyte Percent A 0.4 % (0-0.5); Immature Platelet Fraction Pct 11.4 % (0.9-11.2); Lymphocytes Absolute Auto 1.17 K/mm3 (0.9-3.2); Mean Corpuscular HGB Conc 29.6 g/dl (32-36); Mean Corpuscular Hemoglobin 29.4 pg (26-34); Mean Corpuscular Volume 99.6 fl (80-100); Mean Platelet Volume 13.4 fl (7.4-10.4); Monocytes Absolute Auto 1.3 K/mm3 (0.1-0.6); Monocytes Percent Auto 13.1 % (2.6-8.5); Neutrophils Absolute Auto 6.1 K/mm3 (1.3-6.7); Neutrophils Percent Auto 62.7 % (45.5-73.1); Platelet Count Result 139 k/mm3 (150-375); Red Blood Count 2.31 M/mm3 (4.2-5.4); Red Cell Distribution Width 19.1 % (11.5-14.5); White Blood Count 9.8 K/mm3 (4.5-10.0)
[2023-10-19 05:03] LABS: Hemoglobin 6.8 g/dL (12.0-15.0)
[2023-10-19 05:16] LABS: Alanine Aminotransferase 10 U/L (6-35); Albumin Level 3.3 g/dL (3.5-5.1); Alkaline Phosphatase 81 U/L (38-126); Anion Gap 7 mmol/L (4-12); Aspartate Amino Transferase 21 U/L (14-36); Bilirubin,Total 0.6 mg/dL (0.2-1.3); Blood Urea Nitrogen 31 mg/dL (7-17); Calcium 8.7 mg/dL (8.4-10.2); Carbon Dioxide 34 mmol/L (22-30); Chloride 101 mmol/L (98-107); Estimated CRCL calculation 32 ml/min; Estimated Glomerular Filt Rate 28; Glucose 100 mg/dL (65-110); Magnesium 1.8 mg/dL (1.6-2.3); Phosphorus 3.4 mg/dL (2.5-4.5); Potassium 3.6 mmol/L (3.4-5.0); Sodium 142 mmol/L (137-145)
[2023-10-19] MEDS: MEROPENEM 1 GM/NS 100 ML 1 GM/100 ML BAG IVPB ×2 (05:23→17:21)
[2023-10-19 05:30] LABS: Anisocytosis 1+; Hypochromasia 2+; Platelet Estimate Adequate (Adequate); Schistocytes None Seen; Stomatocytes 1+
[2023-10-19 06:15] LABS: Mean Corpuscular Hemoglobin 29.6 pg (26-34); Mean Corpuscular Volume 98.7 fl (80-100); Mean Platelet Volume 11.7 fl (7.4-10.4); Platelet Count Result 139 k/mm3 (150-375); Red Blood Count 2.33 M/mm3 (4.2-5.4); Red Cell Distribution Width 18.9 % (11.5-14.5); White Blood Count 9.3 K/mm3 (4.5-10.0)
[2023-10-19 07:15] LABS: Glucose Point of Care 107 mg/dl (65-105)
[2023-10-19 07:27] LABS: Hemoglobin 6.9 g/dL (12.0-15.0)
[2023-10-19] MEDS: ACETAMINOPHEN 325 MG TABLET 650 MG PO (08:33)
[2023-10-19] MEDS: TOLNAFTATE 1% POWDER 45 GM BTL 1 APPLIC TOPICAL ×2 (08:35→21:05)
[2023-10-19] MEDS: ALPRAZolam (*CRX) 0.5 MG TABLET PO ×2 (08:35→18:14)
[2023-10-19] MEDS: ONDANSETRON INJ 4 MG/2 ML VIAL IV PUSH ×4 (08:37→22:12)
--- NOTE | 2023-10-19 09:52 | PM.IMPN ---
Progress Note: A&P Assessment and Plan (1) Altered mental status: Code(s): R41.82 - Altered mental status, unspecified Status: Acute (2) Generalized weakness: Code(s): R53.1 - Weakness Status: Acute (3) Hyperkalemia: Code(s): E87.5 - Hyperkalemia Status: Acute (4) Atrial flutter: Code(s): I48.92 - Unspecified atrial flutter Status: Acute (5) Chronic anemia: Code(s): D64.9 - Anemia, unspecified Status: Acute (6) Chronic kidney disease, stage 3: Qualifiers: Chronic kidney disease stage 3 subtype: stage 3a (GFR 45-59) Qualified Code(s): N18.31 - Chronic kidney disease, stage 3a Code(s): N18.30 - Chronic kidney disease, stage 3 unspecified Status: Acute (7) Parkinson disease: Code(s): G20 - Parkinson's disease Status: Chronic (8) Type 2 diabetes mellitus: Qualifiers: Diabetes mellitus intermediate insulin use: with long distance operator use Diabetes mellitus complication status: without complication Qualified Code(s): E11.9 - Type 2 diabetes mellitus without complications; Z79.4 - cupola tender helper (current) use of insulin Code(s): E11.9 - Type 2 diabetes mellitus without complications Status: Chronic (9) Chronic obstructive pulmonary disease: Code(s): J44.9 - Chronic obstructive pulmonary disease, unspecified Status: Acute Plan This is a 73-year-old female who presents with generalized weakness shortness of breath urinary incontinence and altered mental status with extreme agitation and combativeness on admission. CT head on admission showed no acute findings. Cervical CT with no acute findings. Chest x-ray with mild bibasilar pulmonary edema. Suspected sepsis. Urine culture positive. Meningitis seems less likely. Broad-spectrum antibiotics started on admission. Blood culture no growth to date. Urine culture Gram-negative bacilli. Status post lumbar puncture and repeat CT brain. Neurology consulted. Lumbar puncture negative for infection. Urine culture growing E coli. ESBL. On meropenem day 6/7 Generalized weakness PT OT to see Hyperkalemia continue to monitor Atrial flutter rate controlled on amiodarone and Eliquis. Chronic anemia hemoglobin 7-8 range. Colonoscopy February 2022 with diverticulosis. H&H drop down to less than 7 today. Will transfuse 1 unit of PRBC. No obvious signs of bleeding noted. CKD stage 3 baseline creatinine 1.3-1.5. Parkinson's disease Type 2 diabetes A1c 7.4 SSI continue to monitor COPD Chronic respiratory failure on home oxygen 2 L at rest 3 L with activity DVT prophylaxis Code status full code Disposition PT OT likely needs SNF placement Subjective Date/time seen: 10/19/23 09:52 Interval history: No overnight events reported. Labs reviewed. No bleeding. Work with therapy yesterday. Review of Systems Review of Systems: All systems reviewed & are unremarkable except as noted in HPI and below Exam Narrative: Gen - overweight elderly lady alert and conversant Neck - supple. Chest - clear anteriorly CV - RRR S1/S2. Tele showing no significant dysrhythmias Abd - Soft, no guarding. ND. - De La Cruz secured draining clear yellow urine. Ext - No pedal edema Neuro - no focal abnl Psych -normal mood Skin -no rash Objective Data Vital Signs Vital Signs: Vital Signs - 24 hr 10/18/23 10:00 10/18/23 11:34 10/18/23 12:00 Temperature Pulse Rate 54 L 56 L Respiratory Rate Blood Pressure Pulse Oximetry Oxygen Delivery Nasal Cannula Oxygen Flow Rate 4 Fraction of Inspired Oxygen 10/18/23 12:00 10/18/23 12:21 10/18/23 14:00 Temperature 97.3 F L Pulse Rate 60 61 Respiratory Rate 20 Blood Pressure 145/52 H Pulse Oximetry 96 96 Oxygen Delivery Nasal Cannula Oxygen Flow Rate 4 Fraction of Inspired Oxygen 10/18/23 15:45 10/18/23 16:16 10/18/23 19:57 Temperature 96.9 F L 98.3 F Pulse Rate 61 57
[2023-10-19] MEDS: TUBING, BLOOD PLUM PUMP TUBING 1 EACH XX (12:45)
[2023-10-19] MEDS: SODIUM CHLORIDE 0.9% IV 250 ML 30 ML IV CONT (12:45)
[2023-10-19 14:16] LABS: IFOB Positive Control Positive; Immunochemical Fecal Occult Bl Negative (N)
[2023-10-19 14:32] LABS: Source CEREBROSPINAL FLUID
--- NOTE | 2023-10-19 15:50 | PC.NURSE ---
This RN assisted in transferring pt to second medical room 242.
--- NOTE | 2023-10-19 16:33 | ADMGEN ---
This patient, Jenni Rondon, was admitted to 2 Medical Room 242-. Patient/family oriented to hospital policies and general routines including ID bracelet, bed and alarms, visiting hours, pain management, procedures, bathroom and other care routines, personal items, smoking policy, room service/diet, and visiting hours. Information on how to activate the Rapid Response Team has been discussed. Patient/Family are encouraged to report perceived risks to care and to ask questions if they do not understand what they are told or what they should do.
[2023-10-19 17:05] LABS: Glucose Point of Care 118 mg/dl (65-105)
[2023-10-19 17:15] LABS: Hemoglobin 8.2 g/dL (12.0-15.0)
--- NOTE | 2023-10-19 17:40 | PC.NURSE ---
This patient, Jenni Rondon, was received from [[facility] ] on 10/19/23 at 16:30pm. Patient/family oriented to unit policies and routines
[2023-10-19] MEDS: rOPINIRole HCL 0.5 MG TABLET PO (21:04)
[2023-10-20 03:45] LABS: Glucose Point of Care 123 mg/dl (65-105)
[2023-10-20] MEDS: MEROPENEM 1 GM/NS 100 ML 1 GM/100 ML BAG IVPB ×2 (04:45→20:23)
[2023-10-20 05:02] LABS: Basophils Percent Auto 0.2 % (0.2-1.2); Eosinophils Absolute Auto 1.1 K/mm3 (0-0.3); Eosinophils Percent Auto 10.7 % (0-4.4); Hematocrit 26.6 % (37.0-47.0); Hemoglobin 8.1 g/dL (12.0-15.0); Immature Granulocyte Absolute 0.04 K/mm3 (0.00-0.031); Immature Granulocyte Percent A 0.4 % (0-0.5); Immature Platelet Fraction Pct 13.7 % (0.9-11.2); Lymphocytes Absolute Auto 1.16 K/mm3 (0.9-3.2); Lymphocytes Percent Auto 11.4 % (18.3-44.2); Mean Corpuscular HGB Conc 30.5 g/dl (32-36); Mean Corpuscular Hemoglobin 29.2 pg (26-34); Monocytes Absolute Auto 1.3 K/mm3 (0.1-0.6); Monocytes Percent Auto 12.6 % (2.6-8.5); Neutrophils Absolute Auto 6.6 K/mm3 (1.3-6.7); Neutrophils Percent Auto 64.7 % (45.5-73.1); Platelet Count Result 130 k/mm3 (150-375); Red Blood Count 2.77 M/mm3 (4.2-5.4); Red Cell Distribution Width 18.5 % (11.5-14.5); White Blood Count 10.2 K/mm3 (4.5-10.0)
[2023-10-20 05:11] LABS: Alanine Aminotransferase 11 U/L (6-35); Albumin Level 3.3 g/dL (3.5-5.1); Alkaline Phosphatase 83 U/L (38-126); Anion Gap 5 mmol/L (4-12); Aspartate Amino Transferase 21 U/L (14-36); Bilirubin,Total 0.8 mg/dL (0.2-1.3); Blood Urea Nitrogen 28 mg/dL (7-17); Calcium 8.7 mg/dL (8.4-10.2); Carbon Dioxide 34 mmol/L (22-30); Chloride 101 mmol/L (98-107); Estimated CRCL calculation 41 ml/min; Estimated Glomerular Filt Rate 37; Glucose 100 mg/dL (65-110); Magnesium 1.8 mg/dL (1.6-2.3); Potassium 3.6 mmol/L (3.4-5.0); Sodium 140 mmol/L (137-145)
[2023-10-20] MEDS: ONDANSETRON INJ 4 MG/2 ML VIAL IV PUSH (05:22)
[2023-10-20 06:09] VITALS: BP 160/47; PULSE 52; RESP 18; TEMP 36.4; O2SAT 99
[2023-10-20 07:43] LABS: Glucose Point of Care 108 mg/dl (65-105)
[2023-10-20 08:00] VITALS: O2SAT 99
[2023-10-20 08:43] VITALS: O2SAT 99
[2023-10-20] MEDS: ALPRAZolam (*CRX) 0.5 MG TABLET PO ×2 (10:43→20:25)
[2023-10-20] MEDS: TOLNAFTATE 1% POWDER 45 GM BTL 1 APPLIC TOPICAL ×2 (10:43→20:54)
--- NOTE | 2023-10-20 12:34 | PM.IMPN ---
Progress Note: A&P Assessment and Plan (1) Altered mental status: Code(s): R41.82 - Altered mental status, unspecified Status: Acute (2) Generalized weakness: Code(s): R53.1 - Weakness Status: Acute (3) Hyperkalemia: Code(s): E87.5 - Hyperkalemia Status: Acute (4) Atrial flutter: Code(s): I48.92 - Unspecified atrial flutter Status: Acute (5) Chronic anemia: Code(s): D64.9 - Anemia, unspecified Status: Acute (6) Chronic kidney disease, stage 3: Qualifiers: Chronic kidney disease stage 3 subtype: stage 3a (GFR 45-59) Qualified Code(s): N18.31 - Chronic kidney disease, stage 3a Code(s): N18.30 - Chronic kidney disease, stage 3 unspecified Status: Acute (7) Parkinson disease: Code(s): G20 - Parkinson's disease Status: Chronic (8) Type 2 diabetes mellitus: Qualifiers: Diabetes mellitus correction insulin use: with electric plater use Diabetes mellitus complication status: without complication Qualified Code(s): E11.9 - Type 2 diabetes mellitus without complications; Z79.4 - media relations coordinator (current) use of insulin Code(s): E11.9 - Type 2 diabetes mellitus without complications Status: Chronic (9) Chronic obstructive pulmonary disease: Code(s): J44.9 - Chronic obstructive pulmonary disease, unspecified Status: Acute Plan This is a 73-year-old female who presents with generalized weakness shortness of breath urinary incontinence and altered mental status with extreme agitation and combativeness on admission. CT head on admission showed no acute findings. Cervical CT with no acute findings. Chest x-ray with mild bibasilar pulmonary edema. Suspected sepsis. Urine culture positive. Meningitis seems less likely. Broad-spectrum antibiotics started on admission. Blood culture no growth to date. Urine culture Gram-negative bacilli. Status post lumbar puncture and repeat CT brain. Neurology consulted. Lumbar puncture negative for infection. Urine culture growing E coli. ESBL. On meropenem day 08/17 concludes today. Generalized weakness PT OT to see And will need placement Hyperkalemia continue to monitor Atrial flutter rate controlled on amiodarone and Eliquis. Chronic anemia hemoglobin 7-8 range. Colonoscopy February 2022 with diverticulosis. H&H drop down to less than 7 . Will transfuse 1 unit of PRBC. No obvious signs of bleeding noted. FOBT came back negative. H&H remained stable post transfusion CKD stage 3 baseline creatinine 1.3-1.5. Parkinson's disease restart home medication Type 2 diabetes A1c 7.4 SSI continue to monitor COPD home medication Hypothyroidism levothyroxine restart Chronic respiratory failure on home oxygen 2 L at rest 3 L with activity DVT prophylaxis restart apixaban Code status full code Disposition PT OT likely needs SNF placement Subjective Date/time seen: 10/20/23 12:34 Interval history: no overnight events. Patient more alert and oriented. Family at bedside discussed with him. Remains afebrile. Discussed placement Review of Systems Review of Systems: All systems reviewed & are unremarkable except as noted in HPI and below Exam Narrative: Gen - overweight elderly lady alert and conversant Neck - supple. Chest - clear anteriorly CV - RRR S1/S2. Tele showing no significant dysrhythmias Abd - Soft, no guarding. ND. - De La Cruz secured draining clear yellow urine. Ext - No pedal edema Neuro - no focal abnl Psych -normal mood Skin -no rash Objective Data Vital Signs Vital Signs: Vital Signs - 24 hr 10/19/23 12:42 10/19/23 12:59 10/19/23 13:00 Temperature 96.9 F L 97.3 F L 97.3 F L Pulse Rate 54 L 49 L 49 L Respiratory Rate 16 15 15 Blood Pressure 122/64 123/60 123/60 Pulse Oximetry 100 100 100 Oxygen Delivery Oxygen Flow Rate Fraction of Inspired Oxygen 10/19/23 14:00 10/19/23 16:00 10/19/23 15:30 Temperature 97
[2023-10-20 12:39] LABS: Glucose Point of Care 147 mg/dl (65-105)
[2023-10-20] MEDS: CARBIDOPA/LEVODOPA 25/100 MG TABLET 3 TABLET PO ×2 (14:30→20:23)
[2023-10-20 16:00] VITALS: BP 182/49; PULSE 63; RESP 16; TEMP 36.4; O2SAT 95
[2023-10-20 17:50] LABS: Glucose Point of Care 120 mg/dl (65-105)
[2023-10-20 20:00] VITALS: PULSE 63; RESP 16; O2SAT 95
[2023-10-20] MEDS: CARBIDOPA/LEVODOPA 25/100 MG CR TABLET 1 TABLET PO (20:53)
[2023-10-20] MEDS: APIXABAN 2.5 MG TABLET PO (20:53)
[2023-10-20] MEDS: rOPINIRole HCL 0.5 MG TABLET PO (20:53)
[2023-10-20 21:37] VITALS: BP 137/50; PULSE 57; RESP 20; TEMP 36.3; O2SAT 100
[2023-10-21] MEDS: LEVOTHYROXINE SODIUM 25 MCG TABLET PO (05:33)
[2023-10-21 06:00] VITALS: BP 167/62; PULSE 53; RESP 20; TEMP 36.4; O2SAT 100
[2023-10-21 06:14] LABS: Basophils Percent Auto 0.4 % (0.2-1.2); Eosinophils Percent Auto 9.8 % (0-4.4); Hemoglobin 7.6 g/dL (12.0-15.0); Immature Granulocyte Absolute 0.06 K/mm3 (0.00-0.031); Immature Granulocyte Percent A 0.6 % (0-0.5); Immature Platelet Fraction Pct 15.7 % (0.9-11.2); Lymphocytes Absolute Auto 0.96 K/mm3 (0.9-3.2); Mean Corpuscular HGB Conc 29.2 g/dl (32-36); Mean Corpuscular Hemoglobin 28.4 pg (26-34); Monocytes Absolute Auto 1.4 K/mm3 (0.1-0.6); Monocytes Percent Auto 12.8 % (2.6-8.5); Neutrophils Absolute Auto 7.2 K/mm3 (1.3-6.7); Neutrophils Percent Auto 67.4 % (45.5-73.1); Nucleated Red Blood Cells Perc 0.2 % (0.0-0.2); Platelet Count Result 133 k/mm3 (150-375); Red Blood Count 2.68 M/mm3 (4.2-5.4); Red Cell Distribution Width 18.3 % (11.5-14.5); White Blood Count 10.6 K/mm3 (4.5-10.0)
[2023-10-21 06:25] LABS: Albumin Level 3.2 g/dL (3.5-5.1); Alkaline Phosphatase 91 U/L (38-126); Anion Gap 5 mmol/L (4-12); Aspartate Amino Transferase 18 U/L (14-36); Bilirubin,Total 0.6 mg/dL (0.2-1.3); Blood Urea Nitrogen 21 mg/dL (7-17); Calcium 8.7 mg/dL (8.4-10.2); Carbon Dioxide 34 mmol/L (22-30); Chloride 99 mmol/L (98-107); Estimated CRCL calculation 50 ml/min; Estimated Glomerular Filt Rate 49; Glucose 92 mg/dL (65-110); Magnesium 1.8 mg/dL (1.6-2.3); Potassium 3.7 mmol/L (3.4-5.0); Sodium 138 mmol/L (137-145)
[2023-10-21 06:26] LABS: Alanine Aminotransferase < 6 U/L (6-35)
[2023-10-21 06:44] LABS: Anisocytosis 1+; Hypochromasia 2+; Platelet Estimate Slightly Decreased (Adequate)
[2023-10-21 06:46] LABS: Schistocytes None Seen
[2023-10-21 08:41] LABS: Glucose Point of Care 106 mg/dl (65-105)
[2023-10-21] MEDS: CARBIDOPA/LEVODOPA 25/100 MG TABLET 3 TABLET PO ×3 (09:07→16:53)
[2023-10-21] MEDS: allopurinoL 100 MG TABLET PO (09:08)
[2023-10-21] MEDS: PANTOPRAZOLE 40 MG TABLET PO (09:08)
[2023-10-21] MEDS: APIXABAN 2.5 MG TABLET PO ×2 (09:08→20:53)
[2023-10-21] MEDS: ATORVASTATIN 40 MG TABLET 80 MG PO (09:08)
[2023-10-21] MEDS: TOLNAFTATE 1% POWDER 45 GM BTL 1 APPLIC TOPICAL ×2 (09:09→20:54)
[2023-10-21 09:10] VITALS: RESP 20; O2SAT 100
[2023-10-21 11:19] VITALS: BMI 47.0
[2023-10-21 12:03] LABS: Glucose Point of Care 115 mg/dl (65-105)
[2023-10-21] MEDS: NEOMYCIN/POLYMYXIN/BACITRACIN OINTMENT PACKET 1 PACKET (12:06)
--- NOTE | 2023-10-21 12:31 | PM.IMPN ---
Progress Note: A&P Assessment and Plan (1) Altered mental status: Code(s): R41.82 - Altered mental status, unspecified Status: Acute (2) Generalized weakness: Code(s): R53.1 - Weakness Status: Acute (3) Hyperkalemia: Code(s): E87.5 - Hyperkalemia Status: Acute (4) Atrial flutter: Code(s): I48.92 - Unspecified atrial flutter Status: Acute (5) Chronic anemia: Code(s): D64.9 - Anemia, unspecified Status: Acute (6) Chronic kidney disease, stage 3: Qualifiers: Chronic kidney disease stage 3 subtype: stage 3a (GFR 45-59) Qualified Code(s): N18.31 - Chronic kidney disease, stage 3a Code(s): N18.30 - Chronic kidney disease, stage 3 unspecified Status: Acute (7) Parkinson disease: Code(s): G20 - Parkinson's disease Status: Chronic (8) Type 2 diabetes mellitus: Qualifiers: Diabetes mellitus [employer] insulin use: with superintendent marine [employer] use Diabetes mellitus complication status: without complication Qualified Code(s): E11.9 - Type 2 diabetes mellitus without complications; Z79.4 - terminal supervisor (current) use of insulin Code(s): E11.9 - Type 2 diabetes mellitus without complications Status: Chronic (9) Chronic obstructive pulmonary disease: Code(s): J44.9 - Chronic obstructive pulmonary disease, unspecified Status: Acute Plan This is a 73-year-old female who presents with generalized weakness shortness of breath urinary incontinence and altered mental status with extreme agitation and combativeness on admission. CT head on admission showed no acute findings. Cervical CT with no acute findings. Chest x-ray with mild bibasilar pulmonary edema. Suspected sepsis. Urine culture positive. Meningitis seems less likely. Broad-spectrum antibiotics started on admission. Blood culture no growth to date. Urine culture Gram-negative bacilli. Status post lumbar puncture and repeat CT brain. Neurology consulted. Lumbar puncture negative for infection. Urine culture growing E coli. ESBL. On meropenem concluded Generalized weakness PT OT to see And will need placement Hyperkalemia continue to monitor Atrial flutter rate controlled on amiodarone and Eliquis. Chronic anemia hemoglobin 7-8 range. Colonoscopy February 2022 with diverticulosis. H&H drop down to less than 7 . Will transfuse 1 unit of PRBC. No obvious signs of bleeding noted. FOBT came back negative. H&H remained stable post transfusion CKD stage 3 baseline creatinine 1.3-1.5. Parkinson's disease restart home medication Type 2 diabetes A1c 7.4 SSI continue to monitor COPD home medication Hypothyroidism levothyroxine restart Hypertension restart meds Chronic respiratory failure on home oxygen 2 L at rest 3 L with activity DVT prophylaxis restart apixaban Code status full code Disposition PT OT likely needs SNF placement however patient and family wants to take home Subjective Date/time seen: 10/21/23 12:31 Interval history: no overnight events, no nausea, vomiting. no sob, chest pain. nausea, vomiting Review of Systems Review of Systems: All systems reviewed & are unremarkable except as noted in HPI and below Exam Narrative: Gen - overweight elderly lady alert and conversant Neck - supple. Chest - clear anteriorly CV - RRR S1/S2. Tele showing no significant dysrhythmias Abd - Soft, no guarding. ND. - De La Cruz secured draining clear yellow urine. Ext - No pedal edema Neuro - no focal abnl Psych -normal mood Skin -no rash Objective Data Vital Signs Vital Signs: Vital Signs - 24 hr 10/20/23 16:00 10/20/23 20:00 10/20/23 21:37 Temperature 97.6 F 97.3 F L Pulse Rate 63 63 57 L Respiratory Rate 16 16 20 Blood Pressure 182/49 H 137/50 L Pulse Oximetry 95 95 100 Oxygen Delivery Nasal Cannula Oxygen Flow Rate 2 Fraction of Inspired Oxygen 28 10/21/23 06:00 10/21/23 09:10 Temperature 97.5 F L Pulse Ra
[2023-10-21] MEDS: BUMETANIDE 1 MG TABLET PO (13:31)
[2023-10-21] MEDS: LOSARTAN POTASSIUM 25 MG TABLET PO (13:31)
[2023-10-21] MEDS: POTASSIUM CHLORIDE 10 MEQ ER TABLET PO ×3 (13:31→20:53)
[2023-10-21] MEDS: metOLazone 2.5 MG TABLET PO (13:36)
[2023-10-21 13:41] VITALS: O2SAT 98
[2023-10-21 14:00] VITALS: BP 175/57; PULSE 55; RESP 20; O2SAT 98
[2023-10-21] MEDS: ALPRAZolam (*CRX) 0.5 MG TABLET PO ×2 (16:08→21:02)
[2023-10-21 16:42] LABS: Glucose Point of Care 91 mg/dl (65-105)
[2023-10-21 19:37] VITALS: BP 149/52; PULSE 52; RESP 18; TEMP 36.8; O2SAT 100
[2023-10-21 20:01] LABS: Glucose Point of Care 141 mg/dl (65-105)
[2023-10-21 20:50] VITALS: O2SAT 100
[2023-10-21] MEDS: CARBIDOPA/LEVODOPA 25/100 MG CR TABLET 1 TABLET PO (20:55)
[2023-10-21] MEDS: rOPINIRole HCL 0.5 MG TABLET PO (20:55)
[2023-10-21] MEDS: ONDANSETRON INJ 4 MG/2 ML VIAL IV PUSH (21:04)
[2023-10-22] MEDS: ONDANSETRON INJ 4 MG/2 ML VIAL IV PUSH ×2 (01:56→10:26)
[2023-10-22 05:19] VITALS: BP 148/53; PULSE 52; RESP 20; TEMP 36.5; O2SAT 100
[2023-10-22] MEDS: LEVOTHYROXINE SODIUM 25 MCG TABLET PO (05:37)
[2023-10-22 06:09] LABS: Basophils Absolute Auto 0.1 K/mm3 (0.0-0.1); Basophils Percent Auto 0.5 % (0.2-1.2); Eosinophils Absolute Auto 0.8 K/mm3 (0-0.3); Eosinophils Percent Auto 8.2 % (0-4.4); Hematocrit 26.4 % (37.0-47.0); Immature Granulocyte Absolute 0.07 K/mm3 (0.00-0.031); Immature Granulocyte Percent A 0.7 % (0-0.5); Immature Platelet Fraction Pct 17.8 % (0.9-11.2); Lymphocytes Absolute Auto 0.88 K/mm3 (0.9-3.2); Lymphocytes Percent Auto 9.1 % (18.3-44.2); Mean Corpuscular HGB Conc 30.3 g/dl (32-36); Mean Corpuscular Hemoglobin 29.4 pg (26-34); Mean Corpuscular Volume 97.1 fl (80-100); Monocytes Absolute Auto 1.4 K/mm3 (0.1-0.6); Monocytes Percent Auto 14.7 % (2.6-8.5); Neutrophils Absolute Auto 6.5 K/mm3 (1.3-6.7); Neutrophils Percent Auto 66.8 % (45.5-73.1); Nucleated Red Blood Cells Perc 0.2 % (0.0-0.2); Platelet Count Result 141 k/mm3 (150-375); Red Blood Count 2.72 M/mm3 (4.2-5.4); White Blood Count 9.7 K/mm3 (4.5-10.0)
[2023-10-22 06:13] LABS: Albumin Level 3.5 g/dL (3.5-5.1); Alkaline Phosphatase 98 U/L (38-126); Anion Gap 2 mmol/L (4-12); Aspartate Amino Transferase 19 U/L (14-36); Bilirubin,Total 0.7 mg/dL (0.2-1.3); Blood Urea Nitrogen 17 mg/dL (7-17); Calcium 8.8 mg/dL (8.4-10.2); Carbon Dioxide 37 mmol/L (22-30); Chloride 97 mmol/L (98-107); Estimated CRCL calculation 50 ml/min; Estimated Glomerular Filt Rate 49; Glucose 98 mg/dL (65-110); Magnesium 1.7 mg/dL (1.6-2.3); Potassium 4.1 mmol/L (3.4-5.0); Sodium 136 mmol/L (137-145)
[2023-10-22 06:43] LABS: Alanine Aminotransferase < 6 U/L (6-35)
[2023-10-22 08:04] LABS: Glucose Point of Care 118 mg/dl (65-105)
[2023-10-22 08:13] VITALS: RESP 20; O2SAT 100
[2023-10-22] MEDS: ATORVASTATIN 40 MG TABLET 80 MG PO (08:34)
[2023-10-22] MEDS: BUMETANIDE 1 MG TABLET PO (08:34)
[2023-10-22] MEDS: CARBIDOPA/LEVODOPA 25/100 MG TABLET 3 TABLET PO ×2 (08:34→12:34)
[2023-10-22] MEDS: allopurinoL 100 MG TABLET PO (08:34)
[2023-10-22] MEDS: LOSARTAN POTASSIUM 25 MG TABLET PO (08:35)
[2023-10-22] MEDS: APIXABAN 2.5 MG TABLET PO (08:35)
[2023-10-22] MEDS: PANTOPRAZOLE 40 MG TABLET PO (08:35)
[2023-10-22] MEDS: POTASSIUM CHLORIDE 10 MEQ ER TABLET PO ×2 (08:35→12:34)
[2023-10-22] MEDS: TOLNAFTATE 1% POWDER 45 GM BTL 1 APPLIC TOPICAL (08:36)
--- NOTE | 2023-10-22 12:10 | PM.DS ---
DS: Admitting Diagnosis Discharge Date 10/22/2023 Admitting Diagnosis Altered mental status DS: Discharge Diagnosis Discharge Diagnosis (1) Altered mental status: Code(s): R41.82 - Altered mental status, unspecified Status: Acute (2) Generalized weakness: Code(s): R53.1 - Weakness Status: Acute (3) Hyperkalemia: Code(s): E87.5 - Hyperkalemia Status: Acute (4) Atrial flutter: Code(s): I48.92 - Unspecified atrial flutter Status: Acute (5) Chronic anemia: Code(s): D64.9 - Anemia, unspecified Status: Acute (6) Chronic kidney disease, stage 3: Qualifiers: Chronic kidney disease stage 3 subtype: stage 3a (GFR 45-59) Qualified Code(s): N18.31 - Chronic kidney disease, stage 3a Code(s): N18.30 - Chronic kidney disease, stage 3 unspecified Status: Acute (7) Parkinson disease: Code(s): G20 - Parkinson's disease Status: Chronic (8) Type 2 diabetes mellitus: Qualifiers: Diabetes mellitus watermaster insulin use: with intermediate use Diabetes mellitus complication status: without complication Qualified Code(s): E11.9 - Type 2 diabetes mellitus without complications; Z79.4 - meterman (current) use of insulin Code(s): E11.9 - Type 2 diabetes mellitus without complications Status: Chronic (9) Chronic obstructive pulmonary disease: Code(s): J44.9 - Chronic obstructive pulmonary disease, unspecified Status: Acute DS: Summary Hospital Course Hospital Course: This is a 73-year-old female who presents with generalized weakness shortness of breath urinary incontinence and altered mental status with extreme agitation and combativeness on admission. CT head on admission showed no acute findings. Cervical CT with no acute findings. Chest x-ray with mild bibasilar pulmonary edema. Suspected sepsis. Urine culture positive. Meningitis seems less likely. Broad-spectrum antibiotics started on admission. Blood culture no growth to date. Urine culture Gram-negative bacilli. Which turned out to be ESBL E coli. She concluded meropenem treatment during the hospital stay. Status post lumbar puncture to rule out meningitis and repeat CT brain. Neurology consulted. Lumbar puncture negative for infection. Generalized weakness PT OT to see And will need placement however she had exhausted all skilled days and hence family decided take her home with home health. Hyperkalemia resolved continue to monitor Atrial flutter rate controlled on amiodarone and Eliquis. Chronic anemia hemoglobin 7-8 range. Colonoscopy February 2022 with diverticulosis. H&H drop down to less than 7 during the hospital stay with no signs of bleeding.. FOBT came back negative. H&H remained stable post transfusion. Required 1 unit of PRBC during the hospital stay CKD stage 3 baseline creatinine 1.3-1.5. Parkinson's disease restart home medication Type 2 diabetes A1c 7.4 SSI continue to monitor COPD home medication Hypothyroidism levothyroxine restart Hypertension restart meds Chronic respiratory failure on home oxygen 2 L at rest 3 L with activity DVT prophylaxis restart apixaban Code status full code Disposition PT OT likely needs SNF placement however patient and family wants to take home Time Spent with Patient Time attestation: Total time spent providing and/or coordinating discharge services: Exam Narrative: Gen - overweight elderly lady alert and conversant Neck - supple. Chest - clear anteriorly CV - RRR S1/S2. Tele showing no significant dysrhythmias Abd - Soft, no guarding. ND. - De La Cruz secured draining clear yellow urine. Ext - No pedal edema Neuro - no focal abnl Psych -normal mood Skin -no rash DS: Data Data Completed and Pending Completed studies during hospitalization: Pending at discharge 10/15/23 09:27 Cytology [PTH] Routine Labs on day of discharge: Labs from last 24 hours 10/21
[2023-10-22 12:12] LABS: Glucose Point of Care 130 mg/dl (65-105)
--- NOTE | 2023-10-22 12:29 | WPDNEUROPN ---
Subjective Date/time seen: 10/22/23 12:29 Interval history: with acute changes in the mental status and a negative spinal fluid studies, acute agitation in the hospital responded very well to Zyprexa and gradually patient is getting better to the point that she is totally normal in communication with her , for the sake of documentation most recent x-ray chest with minimal central congestive changes, initial opening pressure on spinal tap was documented 41.5, CT scan of the head was normal, cervical spine CT scan revealed moderate spondylotic and all the cultures were negative particular spinal fluid except the urine culture positive for the E coli Exam Narrative: on today's exam she is awake alert cooperative following all the verbal commands appropriately his speech not dysphasic not dysarthric not dysphonic she is making jokes and also very spontaneously happy wants to go home there is no change in neurological status there is no deficit otherwise and I discussed with her as well she can be discharge. Specific diagnosis atrial flutter unspecified, history of Parkinson disease, diabetes mellitus type 2, chronic obstructive pulmonary disease, and agitation during the hospitalization with change in mental status though responded well to the Zyprexa and is back to normal. Objective Data Vital Signs Vital Signs: Vital Signs - 24 hr 10/21/23 13:41 10/21/23 14:00 10/21/23 19:37 Temperature 36.8 C Pulse Rate 55 L 52 L Respiratory Rate 20 18 Blood Pressure 175/57 H 149/52 H Pulse Oximetry 98 98 100 Oxygen Delivery Nasal Cannula Oxygen Flow Rate 3 Fraction of Inspired Oxygen 28 10/21/23 20:50 10/22/23 05:19 10/22/23 08:13 Temperature 36.5 C Pulse Rate 52 L Respiratory Rate 20 20 Blood Pressure 148/53 H Pulse Oximetry 100 100 100 Oxygen Delivery Nasal Cannula Nasal Cannula Oxygen Flow Rate 2 3 Fraction of Inspired Oxygen Intake/Output Intake/Output: Intake & Output 10/19/23 10/20/23 10/21/23 10/22/23 23:59 23:59 23:59 23:59 Intake Total 7705 784 8846 340 Output Total 698 173 3043 200 Balance 770 76 4045 140 Meds/Results Medications: Active Medications Generic Name Dose Route Start Last Admin Trade Name Freq PRN Reason Stop Dose Admin Acetaminophen 650 mg 10/13/23 14:04 10/19/23 08:33 Acetaminophen 325 Mg Tablet PO 650 mg Q6H PRN Administration Mild Pain (1-3) or Fever Albuterol/Ipratropium 3 ml 10/20/23 12:37 Ipratropium 0.5 Mg/Albuterol Sulfate 2.5 Mg Ampul.Neb 3 Ml INHALATION Q6H PRN Shortness Of Breath Allopurinol 100 mg 10/21/23 09:00 10/22/23 08:34 Allopurinol 100 Mg Tablet PO 100 mg DAILY RADHA Administration Alprazolam 0.5 mg 10/13/23 21:23 10/21/23 21:02 Alprazolam (*Crx) 0.5 Mg Tablet PO 0.5 mg TID PRN Administration Anxiety Apixaban 2.5 mg 10/20/23 21:00 10/22/23 08:35 Apixaban 2.5 Mg Tablet PO 2.5 mg Q12HR RADHA Administration Atorvastatin Calcium 80 mg 10/21/23 09:00 10/22/23 08:34 Atorvastatin 40 Mg Tablet PO 80 mg DAILY RADHA Administration Bumetanide 1 mg 10/21/23 12:40 10/22/23 08:34 Bumetanide 1 Mg Tablet PO 1 mg DAILY RADHA Administration Carbidopa/Levodopa 1 tablet 10/20/23 21:00 10/21/23 20:55 Carbidopa/Levodopa 25/100 Mg Cr Tablet PO 1 tablet HS RADHA Administration Carbidopa/Levodopa 3 tablet 10/20/23 13:00 10/22/23 08:34 Carbidopa/Levodopa 25/100 Mg Tablet PO 3 tablet TIDWM RADHA Administration Dextrose 12.5 gm 10/13/23 14:04 Dextrose 50% 25 Gm/50 Ml Syringe IV PUSH PRN PRN Hypoglycemia Protocol Glucagon 1 mg 10/13/23 14:04 Glucagon For Inj 1 Mg Vial IM PRN PRN Hypoglycemia Protocol Glucose 15 gm 10/13/23 14:04 Glucose Oral Gel 15 Gm Of Glucse In 37.5 Gm Tube PO PRN PRN Hypoglycemia Protocol Hydralazine HCl 10 mg 10/15/23 10:23 10/15/23 11:11 Hydralazine Hcl 2
[2023-10-22 14:00] VITALS: BP 145/42; PULSE 55; RESP 18; TEMP 36.1; O2SAT 100
[2023-10-22 15:05] VITALS: BP 148/43
[2023-10-22] MEDS: ALPRAZolam (*CRX) 0.5 MG TABLET PO (15:23)
[2023-10-25 15:09] LABS: West Nile Virus, IgM <0.90 index
[2023-11-03 00:35] LABS: Herpes Simplex Type 1 DNA PCR NOT DETECTED; Herpes Simplex Type 2 DNA PCR NOT DETECTED
[2023-11-07 01:03] LABS: VDRL Quantitative CSF NON-REACTIVE
[2023-11-09 12:23] LABS: Lyme AB IgG, Immunoblot NO BANDS DETECTED; Lyme AB IgM, Immunoblot NO BANDS DETECTED
[2023-11-09 19:38] LABS: Cryptococcus Antigen NOT DETECTED; Cryptococcus Specimen Source CEREBROSPINAL FLUID
== END 2023-10-22 16:45 | disposition home health service (06) | DRG 871 ==
LOC: ANHED 12:15 → ANH2MED 12:38 → ANHIMU 10-14 09:38 → ANH2MED 10-19 15:49
PROVIDERS: Emergency Medicine; Family Medicine; Internal Medicine; Physician Assistant; Admitting Provider Internal Medicine; Emergency Provider Emergency Medicine; Visit Provider Internal Medicine
DX: A41.9 Sepsis, unspecified organism (principal); G93.41 Metabolic encephalopathy; N39.0 Urinary tract infection, site not specified; Z16.12 Extended spectrum beta lactamase (ESBL) resistance; I48.92 Unspecified atrial flutter; J96.10 Chronic respiratory failure, unspecified whether with hypoxia or hypercapnia; I13.0 Hypertensive heart and chronic kidney disease with heart failure and stage 1 through stage 4 chronic kidney disease, or unspecified chronic kidney disease; Z68.42 Body mass index [BMI] 45.0-49.9, adult; R41.82 Altered mental status, unspecified; E11.22 Type 2 diabetes mellitus with diabetic chronic kidney disease; N18.31 Chronic kidney disease, stage 3a; I50.9 Heart failure, unspecified; R53.1 Weakness; E87.5 Hyperkalemia; E11.42 Type 2 diabetes mellitus with diabetic polyneuropathy; K21.9 Gastro-esophageal reflux disease without esophagitis; B96.20 Unspecified Escherichia coli [E. coli] as the cause of diseases classified elsewhere; F31.9 Bipolar disorder, unspecified; D64.9 Anemia, unspecified; G20.A1 Parkinson's disease without dyskinesia, without mention of fluctuations; E03.9 Hypothyroidism, unspecified; G47.33 Obstructive sleep apnea (adult) (pediatric); E78.5 Hyperlipidemia, unspecified; J44.9 Chronic obstructive pulmonary disease, unspecified; R32 Unspecified urinary incontinence; M19.90 Unspecified osteoarthritis, unspecified site; E66.01 Morbid (severe) obesity due to excess calories; G25.81 Restless legs syndrome; Z79.4 Long term (current) use of insulin; Z99.81 Dependence on supplemental oxygen; Z87.11 Personal history of peptic ulcer disease; Z86.718 Personal history of other venous thrombosis and embolism; Z87.442 Personal history of urinary calculi; Z96.653 Presence of artificial knee joint, bilateral; Z90.710 Acquired absence of both cervix and uterus; Z87.891 Personal history of nicotine dependence
CPT/HCPCS: 36415; 36430; 36569; 36600; 62328; 70450; 71045; 71046; 72125; 80048; 80053; 80307; 81001; 82140; 82274; 82550; 82803; 82805; 82945; 82948; 83605; 83735; 83880; 84100; 84132; 84145; 84157; 84439; 84443; 84480; 85014; 85018; 85025; 85027; 85055; 85610; 85730; 86140; 86403; 86592; 86617; 86788; 86850; 86900; 86901; 86923; 87015; 87040; 87070; 87077; 87086; 87088; 87102; 87116; 87186; 87206; 87529; 87636; 87798; 88108; 89051; 93005; 94640; 94762; 97162; 97166; 97530; 97535; 99285; A9270; C1751; J0133; J0360; J0612; J1815; J1939; J2020; J2060; J2185; J2359; J2405; J2919; J3475; J7042; J7050; J7060; P9016

== ENCOUNTER 2023-11-17 10:00 | Inpatient (IN) | payer MEDICARE, BC, SELFPAY ==
[2023-11-17] VITALS (21 sets, daily range): BP systolic 128–209; BP diastolic 41–104; PULSE 57–79; RESP 13–20; TEMP 36.1–36.7; O2SAT 95–100; BMI 46.5
--- NOTE | ~2023-11-17 | US_ITS ---
EXAMINATION: US venous doppler [facility] DATE: 11/17/2023 11:15 INDICATION: Left lower limb swelling and erythema TECHNIQUE: Grayscale ultrasound images without and with compression and Doppler ultrasound images of the left lower extremity veins were obtained. COMPARISON: None. FINDINGS: The visualized portions of left common femoral vein, profunda (deep) femoral vein, femoral vein, popl iteal vein, peroneal veins, posterior tibial veins, gastrocnemius vein and greater saphenous vein out flow are patent. There is subcutaneous edema at the left popliteal fossa. IMPRESSION: 1. No deep venous thrombosis in the left lower limb. Reviewed, dictated and finalized at location A.
--- NOTE | ~2023-11-17 | CT_ITS ---
EXAMINATION: CT brain wo con DATE: 11/17/2023 17:25 INDICATION: left leg feels heavy . TECHNIQUE: Computed tomography (CT) of the head was performed without intravenous contrast. The mA wa s adjusted according to patient size. Iterative reconstruction technique was employed. The dose-lengt h product was 681.00 mGy-cm. COMPARISON: 10/15/2023. FINDINGS: Exam limited by nonstandard positioning and mild motion artifact. No acute intracranial hemorrhage or extra-axial fluid collection. No hydrocephalus, mass, or herniation. No acute ischemic infarct. Unremarkable dural venous sinus attenuation. No acute osseous abnormality. Mucosal thickening in the sphenoid sinuses, aerated secretions in a posterior right ethmoid air cell, the remaining aerated spaces are clear. Moderate atrophy and chronic white matter change. Atherosclerotic intracranial calcification. Bilater al lens replacements. Partially empty sella. IMPRESSION: No acute intracranial process. Aerated secretions in a right posterior ethmoid air cell, may reflect acute sinusitis in the appropri ate clinical context. Reviewed, dictated and finalized at location K. IMPRESSION: No acute intracranial process. Aerated secretions in a right posterior ethmoid air cell, may reflect acute sin usitis in the appropriate clinical context.
--- NOTE | ~2023-11-17 | XR_ITS ---
EXAMINATION: XR hip LT 2V w AP pelvis DATE: 11/17/2023 11:37 INDICATION: Left hip pain TECHNIQUE: Anteroposterior view of the pelvis and anteroposterior and frog-leg lateral views of the l eft hip were obtained. COMPARISON: None. FINDINGS: Alignment is normal. No fracture. Or suspected osteonecrosis Mild bilateral hip and sacroiliac osteoa rthritis. Moderate to severe lower lumbar facet osteoarthritis. Soft tissues are unremarkable. IMPRESSION: 1. Mild bilateral hip and sacroiliac osteoarthritis. No acute osseous abnormality. Reviewed, dictated and finalized at location A. IMPRESSION: 1. Mild bilateral hip and sacroiliac osteoarthritis. No acute osseous abnormali ty.
--- NOTE | ~2023-11-17 | XR_ITS ---
EXAMINATION: XR chest 2V DATE: 11/17/2023 11:37 INDICATION: Congestive heart failure TECHNIQUE: frontal and lateral views of the chest were obtained. COMPARISON: Chest radiograph dated 10/16/23 FINDINGS: Cardiomegaly with pulmonary vascular congestion and subtle increased interstitial pattern consistent with minimal pulmonary edema. No pleural effusion or pneumothorax. IMPRESSION: 1. Likely congestive heart failure with cardiomegaly, pulmonary vascular congestion and minimal pulmo nary edema. Reviewed, dictated and finalized at location A. IMPRESSION: 1. Likely congestive heart failure with cardiomegaly, pulmonary vascular conges tion and minimal pulmonary edema.
--- NOTE | ~2023-11-17 | XR_ITS ---
Portable chest x-ray Comparison: 11/17/2023 Clinical History: Shortness of breath Findings: Questionable minimal interstitial edema. No consolidation or pleural effusion otherwise. Cardiomediastinal silhouette is stable. Bones and soft tissues are unremarkable. Impression: Possible minimal interstitial edema. Reviewed, dictated and finalized at [facility]. Impression: Possible minimal interstitial edema.
--- NOTE | 2023-11-17 10:51 | ECG_ITS ---
Test Date: 2023-11-17 10:59:47 Measurements Intervals [place] Rate: 61 P: 53 PA: 175 QRS: 9 QRSD: 95 T: 51 QT: 422 QTc: 427 Interpretive Statements SINUS RHYTHM WITH SINUS ARRHYTHMIA Compared to ECG 10/13/2023 23:23:15 No significant changes Electronically Signed On 11-17-2023 11:40:52 CDT by Santo Arciniega M.D.
[2023-11-17 11:08] LABS: Basophils Absolute Auto 0.1 K/mm3 (0.0-0.1); Basophils Percent Auto 0.7 % (0.2-1.2); Eosinophils Absolute Auto 0.5 K/mm3 (0-0.3); Eosinophils Percent Auto 6.1 % (0-4.4); Hematocrit 24.7 % (37.0-47.0); Hemoglobin 7.3 g/dL (12.0-15.0); Immature Granulocyte Absolute 0.05 K/mm3 (0.00-0.031); Immature Granulocyte Percent A 0.6 % (0-0.5); Lymphocytes Absolute Auto 0.75 K/mm3 (0.9-3.2); Lymphocytes Percent Auto 8.9 % (18.3-44.2); Mean Corpuscular HGB Conc 29.6 g/dl (32-36); Mean Corpuscular Hemoglobin 31.5 pg (26-34); Mean Corpuscular Volume 106.5 fl (80-100); Mean Platelet Volume 11.8 fl (7.4-10.4); Monocytes Absolute Auto 0.7 K/mm3 (0.1-0.6); Monocytes Percent Auto 8.8 % (2.6-8.5); Neutrophils Absolute Auto 6.3 K/mm3 (1.3-6.7); Neutrophils Percent Auto 74.9 % (45.5-73.1); Platelet Count Result 248 k/mm3 (150-375); Red Blood Count 2.32 M/mm3 (4.2-5.4); Red Cell Distribution Width 18.3 % (11.5-14.5); White Blood Count 8.4 K/mm3 (4.5-10.0)
[2023-11-17 11:17] LABS: Albumin Level 3.7 g/dL (3.5-5.1); Alkaline Phosphatase 110 U/L (38-126); Anion Gap 6 mmol/L (4-12); Aspartate Amino Transferase 14 U/L (14-36); Bilirubin,Total 0.4 mg/dL (0.2-1.3); Blood Urea Nitrogen 28 mg/dL (7-17); Calcium 9.2 mg/dL (8.4-10.2); Carbon Dioxide 33 mmol/L (22-30); Chloride 100 mmol/L (98-107); Estimated CRCL calculation 46 ml/min; Estimated Glomerular Filt Rate 44; Glucose 151 mg/dL (65-110); Potassium 4.1 mmol/L (3.4-5.0); Sodium 139 mmol/L (137-145)
[2023-11-17 11:18] LABS: Anisocytosis 2+; Hypochromasia 1+; INR 1.2; Macrocytosis 1+ (NORMAL); Platelet Estimate Adequate (Adequate); Prothrombin Time 15.2 Seconds (11.1-14.7); Schistocytes None Seen
[2023-11-17 11:19] LABS: Partial Thromboplastin Time 29.6 Seconds (22.3-36.8)
[2023-11-17 11:20] LABS: Alanine Aminotransferase < 6 U/L (6-35)
[2023-11-17 11:23] LABS: CRP 1.4 mg/dL (<1.0)
[2023-11-17 11:29] LABS: NT Pro B Type Natriuretic Pept 2860 pg/mL (19.9-100)
--- NOTE | 2023-11-17 12:09 | ED.GENADULT ---
HPI - General Adult General Chief complaint: Extremity Problem,Nontraumatic Stated complaint: leg swelling/weakness Time Seen by Provider: 11/17/23 10:10 Source: patient, RN notes reviewed and old records reviewed Mode of arrival: EMS Limitations: no limitations History of Present Illness HPI narrative: This is a 73 year old female with history of COPD, CHF, chronic respiratory failure with NC home 02 3 L who presents for evaluation of increased bilateral leg swelling and pain. She reports new redness to her bilateral lower leg. She also reports pain to left groin and itching. She states she does not consider her left arm to be numbness. She denies cough , fever or worsening shortness of breath. Takes eliquis for afib. Related Data Home Medications Medication Instructions Recorded Confirmed carbidopa 25 mg-levodopa 100 mg 3 tablet PO TID 12/10/19 11/17/23 tablet allopurinol 100 mg tablet 100 mg PO DAILY 12/12/21 11/17/23 ropinirole 0.5 mg tablet 0.5 mg PO HS 12/12/21 11/17/23 albuterol sulfate 90 mcg/actuation 2 puff inhalation QID PRN 12/23/21 11/17/23 aerosol inhaler Shortness Of Breath Or Wheezing gabapentin 100 mg capsule 300 mg PO TID ##0 12/29/21 11/17/23 pantoprazole 40 mg tablet,delayed 40 mg PO QAM 08/28/22 11/17/23 release atorvastatin 80 mg tablet 80 mg PO DAILY 09/27/23 11/17/23 apixaban 2.5 mg tablet (Eliquis) 2.5 mg PO BID 10/13/23 11/17/23 bumetanide 1 mg tablet 1 mg PO DAILY 10/13/23 11/17/23 levothyroxine 25 mcg tablet 25 mcg PO QAM 10/13/23 11/17/23 losartan 25 mg tablet 25 mg PO DAILY 10/13/23 11/17/23 metolazone 2.5 mg tablet 2.5 mg PO USEASDIRECTD 10/13/23 11/17/23 oxcarbazepine 150 mg tablet 75 mg PO BID 10/13/23 11/17/23 Allergies Allergy/AdvReac Type Severity Reaction Status Date / Time iodine Allergy Severe Hives Verified 11/17/23 10:11 latex Allergy Severe Hives Verified 11/17/23 10:11 Contrast Media Allergy Mild Hives Uncoded 11/17/23 10:11 Review of Systems Constitutional: Constitutional: Reports weakness Cardiovascular: Cardiovascular: Denies syncope, Denies rapid heart rate, Denies irregular heart rhythm and Reports dyspnea (chronic) Respiratory: Respiratory: Denies chest congestion, Denies hemoptysis, Denies excessive phlegm production and Reports dyspnea Gastrointestinal: Gastrointestinal: Denies abdominal pain, Denies hematochezia, Denies diarrhea and Denies vomiting Genitourinary: Genitourinary: Denies hematuria and Denies dysuria Musculoskeletal: Musculoskeletal: Denies joint swelling, Denies loss of height and Reports muscle weakness Integumentary/Breasts: Skin/Breast: Reports pruritus, Reports erythema and Reports rash Neurologic: Denies syncope, Denies focal weakness and Reports weakness PMFSH Past Medical History Medical History (Updated 11/17/23 @ 19:07 by Ambar Rahman MD) Anxiety Bipolar 1 disorder BMI greater than 40 Chronic anemia Chronic kidney disease, stage 3 Baseline creatinine ranges between 1.2 and 1.50. Chronic obstructive pulmonary disease Depression Diabetic polyneuropathy Gastroesophageal reflux disease GI bleed (01/2010) Secondary to peptic ulcer. Heart failure with preserved ejection fraction CHF has been documented however echo in 08/2023 showed normal right and left ventricular size and systolic function with normal diastolic function. Hyperlipidemia Hypertension Hypothyroidism Impaired cognition Junctional rhythm Kidney stones Neuropathy Obstructive sleep apnea Patient does not use PAP therapy at nighttime. Osteoarthritis Parkinson disease Restless leg syndrome Type 2 diabetes mellitus Surgical History Surgical History History of bilateral knee arthroplasty History of hysterectomy History of sinus surgery Family History Family History Grandparent Diabetes mellitus Acute myocardial infarction Father Acute
[2023-11-17 12:13] LABS: Add Urine Microscopic? YES; Appearance Urine Clear (Clear); Bacteria Urine 4+ /hpf; Bilirubin Urine Negative (Negative); Blood Urine Negative (Negative); Color Urine Yellow (Yellow); Glucose Urine UA Negative (Negative); Ketones Urine Negative (Negative); Leukocyte Esterase Ur 1+ LEU/UL (Negative); Nitrate Urine Positive (Negative); Protein Urine 1+ mg/dL (Negative); RBC Urine 0-2 /hpf (0-2); Squamous Epithelial Cell Urine Occasional /hpf (Few); Urobilinogen Urine 0.2 mg/dL (<2.0); WBC Urine 21-50 /hpf (0-3); pH Urine 5.5 (5.0-9.0)
--- NOTE | 2023-11-17 13:20 | PM.IMHP ---
H&P: HPI History of Present Illness Date/Time: 11/17/23 13:20 Chief Complaint: Multiple complaints. Narrative: This is a chronically ill 73-year-old female with Parkinson's disease, hypertension, hyperlipidemia, congestive heart failure however most recent echocardiogram showed normal right and left systolic function and normal diastolic dysfunction, type 2 diabetes mellitus, hypothyroidism, obstructive sleep apnea- non compliant with treatment, chronic kidney disease, chronic anemia, chronic obstructive pulmonary disease, gastroesophageal reflux disease, peptic ulcers, depression, and anxiety who presented to the emergency department via EMS from home with multiple complaints. She is known to myself and the hospitalist service from multiple admissions over the years and this will be her 6th admission to the hospital in the last 6 months. Briefly she was admitted in May with acute kidney injury and a left perineal abscess and was readmitted about a week later with volume overload. She was admitted the following month with urosepsis and ESBL bacteremia and she was discharged to rehab thereafter. Two days after she left rehab she was readmitted to the hospital with shock, acute on chronic kidney injury, and hyperkalemia. She declined further rehab in senior care placement and was discharged home but was once again readmitted within a week and a half with weakness and altered mental status. She has been at home since 10/22/2023. Her is her main material dispatcher and she is very sedentary however states she does get up with a walker around home. Over the course of the last several days she has noticed an increase in lower extremity edema and is says that her legs feel heavy and painful ?like when I have had CHF before.? She has become increasingly weak and could no longer get up. She denies fever, chills, sweats, cold and flu symptoms, chest pain, orthopnea, chest pain, abdominal pain, nausea, vomiting, diarrhea, and dysuria. She also denies vertigo, visual changes, facial droop, difficulties speaking and swallowing, focal weakness, and change in paresthesias from baseline. At the time my evaluation she complains of migratory pain. She told the nurse that it was due to her peripheral neuropathy however told me she thought it was due to osteoarthritis of her hip. She then said that she was having a lot of pain in her groin where she has significant maceration and candidal intertrigo. In the ED: She was afebrile on arrival with stable vital signs. Labs were significant for WBC count of 8.4, hemoglobin 7.3, BUN 28, creatinine 1.20, proBNP 2860, CRP 1.4. Urine was positive for 1+ protein, positive nitrates, 1+ leukocyte esterase, 21 to 50 WBC, and 4+ bacteria. Head CT showed no acute intracranial process and aerated secretions in the right posterior ethmoid air cell. Lower extremity venous Doppler ultrasounds showed node DVT in the the left limb. Chest x-ray showed likely congestive heart failure with cardiomegaly, pulmonary vascular congestion, and minimal pulmonary edema. Hip and pelvic gastric a shows mild bilateral hip and sacroiliac osteoarthritis. She was given furosemide 40 mg IV and ceftriaxone 1 g IV and she is being admitted in this setting. Review of Systems Review of Systems: 12 systems were reviewed and are negative except for as per HPI. FOR[facility]LY [facility] Past Medical History Medical History Anxiety Bipolar 1 disorder BMI greater than 40 Chronic anemia Chronic kidney disease, stage 3 Baseline creatinine ranges between 1.2 and 1.50. Chronic obstructive pulmonary disease Depression Diabetic polyneuropathy Gastroesophageal reflux disease GI bleed (01/2010) Secondary to peptic ulcer. Heart failure with preserved ejection fraction CHF has been documented however echo in 08/2023 showed normal right and left ventricular size and systolic function with normal diastolic function. Hyperlipidemia Hyperten
[2023-11-17] MEDS: FUROSEMIDE INJ 40 MG/4 ML VIAL IV PUSH ×2 (14:03→21:32)
--- NOTE | 2023-11-17 15:06 | ADMGEN ---
This patient, Jenni Rondon, was admitted to Medical Room 258-01. Patient/family oriented to hospital policies and general routines including ID bracelet, bed and alarms, visiting hours, pain management, procedures, bathroom and other care routines, personal items, smoking policy, room service/diet, and visiting hours. Information on how to activate the Rapid Response Team has been discussed. Patient/Family are encouraged to report perceived risks to care and to ask questions if they do not understand what they are told or what they should do.
[2023-11-17 17:03] LABS: Glucose Point of Care 94 mg/dl (65-105)
[2023-11-17] MEDS: GABAPENTIN 300 MG CAPSULE PO (17:07)
[2023-11-17] MEDS: TAPENTADOL HCL (*CRX) 50 MG TABLET PO (18:42)
[2023-11-17 20:11] LABS: Glucose Point of Care 171 mg/dl (65-105)
[2023-11-17] MEDS: BUMETANIDE INJ 1 MG/4 ML VIAL IV PUSH (23:52)
[2023-11-18] VITALS (8 sets, daily range): BP systolic 116–139; BP diastolic 64–82; PULSE 70–77; RESP 14–20; TEMP 36.7–37.2; O2SAT 96–99
[2023-11-18] MEDS: HYDROcodone/acetaminophen (*CRX) 7.5-325 MG TABLET 1 TAB PO (01:51)
[2023-11-18 06:26] LABS: Basophils Absolute Auto 0.1 K/mm3 (0.0-0.1); Basophils Percent Auto 0.4 % (0.2-1.2); Eosinophils Absolute Auto 0.3 K/mm3 (0-0.3); Eosinophils Percent Auto 1.7 % (0-4.4); Hematocrit 24.6 % (37.0-47.0); Hemoglobin 7.3 g/dL (12.0-15.0); Immature Granulocyte Absolute 0.08 K/mm3 (0.00-0.031); Immature Granulocyte Percent A 0.5 % (0-0.5); Lymphocytes Absolute Auto 0.79 K/mm3 (0.9-3.2); Lymphocytes Percent Auto 5.3 % (18.3-44.2); Mean Corpuscular HGB Conc 29.7 g/dl (32-36); Mean Corpuscular Hemoglobin 30.9 pg (26-34); Mean Corpuscular Volume 104.2 fl (80-100); Mean Platelet Volume 12.2 fl (7.4-10.4); Monocytes Absolute Auto 0.6 K/mm3 (0.1-0.6); Monocytes Percent Auto 4.2 % (2.6-8.5); Neutrophils Absolute Auto 13.1 K/mm3 (1.3-6.7); Neutrophils Percent Auto 87.9 % (45.5-73.1); Platelet Count Result 266 k/mm3 (150-375); Red Blood Count 2.36 M/mm3 (4.2-5.4); Red Cell Distribution Width 18.5 % (11.5-14.5); White Blood Count 14.9 K/mm3 (4.5-10.0)
[2023-11-18 06:40] LABS: Albumin Level 3.5 g/dL (3.5-5.1); Alkaline Phosphatase 127 U/L (38-126); Anion Gap 4 mmol/L (4-12); Aspartate Amino Transferase 14 U/L (14-36); Bilirubin,Total 0.5 mg/dL (0.2-1.3); Blood Urea Nitrogen 22 mg/dL (7-17); Calcium 9.6 mg/dL (8.4-10.2); Carbon Dioxide 37 mmol/L (22-30); Chloride 96 mmol/L (98-107); Estimated CRCL calculation 41 ml/min; Estimated Glomerular Filt Rate 37; Glucose 119 mg/dL (65-110); Magnesium 1.4 mg/dL (1.6-2.3); Potassium 3.9 mmol/L (3.4-5.0); Sodium 137 mmol/L (137-145)
[2023-11-18 06:46] LABS: Alanine Aminotransferase < 6 U/L (6-35)
[2023-11-18 07:43] LABS: Platelet Estimate Adequate (Adequate)
[2023-11-18 07:44] LABS: Anisocytosis 2+; Hypochromasia 1+; Schistocytes None Seen; Stomatocytes 2+
[2023-11-18 08:26] LABS: Glucose Point of Care 113 mg/dl (65-105)
[2023-11-18] MEDS: ACETAMINOPHEN 325 MG TABLET 650 MG PO (08:55)
[2023-11-18] MEDS: TAPENTADOL HCL (*CRX) 50 MG TABLET PO (08:56)
[2023-11-18] MEDS: GABAPENTIN 300 MG CAPSULE PO ×3 (08:56→17:20)
[2023-11-18] MEDS: BUMETANIDE INJ 1 MG/4 ML VIAL IV PUSH (08:57)
[2023-11-18 11:41] LABS: Glucose Point of Care 132 mg/dl (65-105)
--- NOTE | 2023-11-18 13:13 | PM.IMPN ---
Progress Note: A&P Assessment and Plan (1) Chronic kidney disease: Code(s): N18.9 - Chronic kidney disease, unspecified Status: Acute (2) CHF (congestive heart failure): Qualifiers: Heart failure chronicity: acute on chronic Code(s): I50.9 - Heart failure, unspecified Status: Acute (3) Cellulitis of left leg: Code(s): L03.116 - Cellulitis of left lower limb Status: Acute Plan 73-year-old female with Parkinson's disease, hypertension, hyperlipidemia, congestive heart failure however most recent echocardiogram showed normal right and left systolic function and normal diastolic dysfunction, type 2 diabetes mellitus, hypothyroidism, obstructive sleep apnea- non compliant with treatment, chronic kidney disease, chronic anemia, chronic obstructive pulmonary disease, gastroesophageal reflux disease, peptic ulcers, depression, and anxiety who presented to the emergency department via EMS from home with multiple complaints. In the ED: She was afebrile on arrival with stable vital signs. Labs were significant for WBC count of 8.4, hemoglobin 7.3, BUN 28, creatinine 1.20, proBNP 2860, CRP 1.4. Urine was positive for 1+ protein, positive nitrates, 1+ leukocyte esterase, 21 to 50 WBC, and 4+ bacteria. Head CT showed no acute intracranial process and aerated secretions in the right posterior ethmoid air cell. Lower extremity venous Doppler ultrasounds showed node DVT in the the left limb. Chest x-ray showed likely congestive heart failure with cardiomegaly, pulmonary vascular congestion, and minimal pulmonary edema. Hip and pelvic gastric a shows mild bilateral hip and sacroiliac osteoarthritis. She was given furosemide 40 mg IV and ceftriaxone 1 g IV and she was admitted in this setting. 1. Left leg cellulitis: Continue with ceftriaxone Follow-up urine cultures Monitor leukocytosis 2.? Acute on chronic CHF exacerbation: Continue with IV Bumex Strict eyes and nose Keep K greater than 4, Mag greater than 2 Hold metolazone for now O2 support as needed 3. Type 2 diabetes mellitus: Blood glucose checked t.i.d. a.c. and HS Continue with sliding scale insulin Adjust dose as needed 4. History of Parkinson's disease: Resume home dose of carbidopa levodopa 5. Chronic anemia: Monitor H&H 6. CKD: Monitor kidney function in setting of IV diuresis Recheck BMP in a.m. Supplement magnesium for hypomagnesemia 7. History of peripheral neuropathy related pain: Continue with gabapentin Resume home dose Requip Pain control 8. Code status: Full 9. DVT prophylaxis on Eliquis, monitor H&H 10. Disposition: Pending improvement Time Spent With Patient Time with patient: 15 - 25 minutes Subjective Date/time seen: 11/18/23 13:13 Interval history: No acute events overnight, feeling better Review of Systems Review of Systems: All systems reviewed & are unremarkable except as noted in HPI and below Exam Narrative: General: Chronically ill-appearing female HEENT: Moist mucous membranes Neck: Supple. No JVD. Respiratory: Respirations are nonlabored. Lung sounds are a bit diminished at the bases, likely due to body habitus, but are otherwise clear to auscultation. Cardiovascular: Regular rate and rhythm with S1-S2. Gastrointestinal: Abdomen is soft, morbidly obese, nontender, and nondistended with positive bowel sounds. Genitourinary: Nurse reports hard stool was noted in the vulvar area when they were cleaning her up. Skin: Warm and dry. Bilateral lower extremity erythema secondary to significant swelling. Left leg is much more red when compared to the right and is slightly warm, likely underlying cellulitis. Candidal intertrigo in the inguinal creases folds. Extremities: No cyanosis or clubbing. 2+ bilateral lower extremity pitting edema. Peripheral pulses intact. Neurological: Alert and oriented. Cranial nerves 2-12 grossly intact. Tremors noted of the upper extremities and head consi
[2023-11-18] MEDS: IPRATROPIUM 0.5 MG/ALBUTEROL SULFATE 2.5 MG AMPUL.NEB 3 ML INHALATION ×2 (13:18→19:42)
[2023-11-18] MEDS: MAGNESIUM SULF 4 GM/WATER100ML 4 GM/100 ML BAG IVPB (13:50)
[2023-11-18] MEDS: CARBIDOPA/LEVODOPA 25/100 MG TABLET 3 TABLET PO ×2 (13:50→17:20)
[2023-11-18] MEDS: HYDROcodone/acetaminophen (*CRX) 5-325 MG TABLET 1 TAB PO ×2 (14:43→23:52)
[2023-11-18 16:45] LABS: Glucose Point of Care 151 mg/dl (65-105)
[2023-11-18] MEDS: APIXABAN 2.5 MG TABLET PO (17:20)
[2023-11-18] MEDS: [UNRECOGNIZED DRUG - OTHER] PO (21:05)
[2023-11-18] MEDS: OXCARBAZEPINE PO (21:05)
[2023-11-18] MEDS: rOPINIRole HCL 0.5 MG TABLET PO (21:05)
[2023-11-18 21:10] LABS: Glucose Point of Care 141 mg/dl (65-105)
[2023-11-19] VITALS (11 sets, daily range): BP systolic 112–146; BP diastolic 36–63; PULSE 65–78; RESP 14–20; TEMP 36.2–36.8; O2SAT 93–100
[2023-11-19] MEDS: HYDROcodone/acetaminophen (*CRX) 5-325 MG TABLET 1 TAB PO ×3 (03:45→13:48)
[2023-11-19] MEDS: LEVOTHYROXINE SODIUM 25 MCG TABLET PO (05:38)
--- NOTE | 2023-11-19 05:41 | PC.NURSE ---
Pt continuously complaining of L leg pain. Repositioning, ice application, and pain medication given in attempt to control pain. Pt still complaining of L leg pain after all therapies attempted. Pt concerned she has a blood clot, venous doppler was done yesterday and results were explained to the patient. Pt also concerned something is broken, hip/ pelvis xray was done on 11/16 and the results were explained to the patient. Will pass this information along to oncoming nurse in shift report.
[2023-11-19] MEDS: IPRATROPIUM 0.5 MG/ALBUTEROL SULFATE 2.5 MG AMPUL.NEB 3 ML INHALATION ×2 (06:55→12:56)
[2023-11-19 07:51] LABS: Glucose Point of Care 127 mg/dl (65-105)
[2023-11-19] MEDS: PANTOPRAZOLE 40 MG TABLET PO (09:02)
[2023-11-19] MEDS: GABAPENTIN 300 MG CAPSULE PO ×3 (09:02→17:05)
[2023-11-19] MEDS: APIXABAN 2.5 MG TABLET PO ×2 (09:03→17:05)
[2023-11-19] MEDS: CARBIDOPA/LEVODOPA 25/100 MG TABLET 3 TABLET PO ×3 (09:03→17:05)
[2023-11-19] MEDS: ATORVASTATIN 40 MG TABLET 80 MG PO (09:03)
[2023-11-19] MEDS: LOSARTAN POTASSIUM 25 MG TABLET PO (09:03)
[2023-11-19] MEDS: allopurinoL 100 MG TABLET PO (09:03)
[2023-11-19] MEDS: BUMETANIDE INJ 1 MG/4 ML VIAL IV PUSH (09:04)
--- NOTE | 2023-11-19 10:08 | PM.IMPN ---
Progress Note: A&P Assessment and Plan (1) CHF (congestive heart failure): Qualifiers: Heart failure chronicity: acute on chronic Code(s): I50.9 - Heart failure, unspecified Status: Acute Assessment and Plan: She has evidence of volume overload with lower extremity edema and some pulmonary vascular congestion on chest x-ray however her proBNP is markedly lower than what she typically runs. Her most recent echo showed normal systolic and diastolic function. Continue judicious IV diuresis with close monitoring of volume status, renal function, and electrolytes. Bumex 1 mg IVP again today. Plan to start PO Bumex tomorrow as well as home metolazone. elevate her legs as often as possible daily weight, strict I&O MANISH wrap BLE if VU hose not able to be applied Low sodium diet (2) Cellulitis of left leg: Code(s): L03.116 - Cellulitis of left lower limb Status: Acute Assessment and Plan: The patient presented to the emergency department with multiple complaints including lower extremity swelling, pain, and redness and increased weakness. She has been afebrile since arrival with stable vital signs and her labs are all stable compared to baseline. Left leg appears cellulitic. Started on Rocephin Erythema and warmth are improving considerably Tylenol prn for pain, norco for severe pain (3) Chronic kidney disease: Code(s): N18.9 - Chronic kidney disease, unspecified Status: Acute Assessment and Plan: Her chronic kidney disease and anemia are stable review of previous labs. Cr 1.4 today Avoid nephrotoxins (4) Mari UTI: Code(s): B37.49 - Other urogenital candidiasis Status: Acute Assessment and Plan: Urinalysis is grossly abnormal and I suspect she has a urinary tract infection due to poor hygiene as she has significant intertrigo on exam. Urine culture pending Started on Rocephin (5) Left leg numbness: Code(s): R20.0 - Anesthesia of skin Status: Acute Assessment and Plan: Patient complains of left leg numbness and heaviness . She is able to move against resistance. She also reports left upper arm numbness. She reports a history of TIA. CT head on arrival was negative for acute stroke XR hip shows bilateral hip and sacroiliac osteoarthritis, no fracture Suspect neuropathic in nature. Continue with gabapentin Trial tapentadol 75 mg PO BID for neuropathy pain Plan This lady is chronically ill and with her recurrent admissions it seems like she is not able to care appropriately for herself at home. Previously she has declined further rehab and [facility] however. Care coordination consulted. PT/OT consulted for placement. Subjective Date/time seen: 11/19/23 10:08 Interval history: Patient is seen resting in bed. She states her biggest complaint is her left chau and feels like she isn't something. Has continuous pain. She also feels like her left arm and left leg are heavy. Review of Systems Review of Systems: 12 systems were reviewed and are negative except for as per HPI. All systems reviewed & are unremarkable except as noted in HPI and below Exam Narrative: General: appears comfortable, in no acute distress Respiratory: breathing is unlabored with even chest rise/fall, lungs are clear without wheezing, rhonchi, and crackles, chronically on 3 L Cardiovascular: Rate and rhythm regular, normal s1s2, no murmur Abdomen: Soft, round, non-tender, active bowel sounds, obese Extremities: No cyanosis, trace edema to bilateral lower extremities, no clubbing. Pulses 2/2 Neuro: A&O x 4 Skin: Warm, dry, intact. Slight erythema to bilateral lower legs with warmth. Objective Data Vital Signs Vital Signs: Vital Signs - 24 hr 11/18/23 13:20 11/18/23 13:20 11/18/23 13:43 Temperature 99.0 F Pulse Rate 73 70 Respiratory Rate 20 17 Blood Pressure 116/64 Pulse Oximetry 96 99
[2023-11-19] MEDS: [UNRECOGNIZED DRUG - OTHER] PO ×2 (10:23→20:27)
[2023-11-19] MEDS: OXCARBAZEPINE PO ×2 (10:23→20:27)
[2023-11-19 11:11] LABS: Basophils Absolute Auto 0.1 K/mm3 (0.0-0.1); Basophils Percent Auto 0.7 % (0.2-1.2); Eosinophils Absolute Auto 0.4 K/mm3 (0-0.3); Eosinophils Percent Auto 5.1 % (0-4.4); Hematocrit 23.4 % (37.0-47.0); Hemoglobin 7.1 g/dL (12.0-15.0); Immature Granulocyte Absolute 0.08 K/mm3 (0.00-0.031); Immature Granulocyte Percent A 1.1 % (0-0.5); Lymphocytes Absolute Auto 0.75 K/mm3 (0.9-3.2); Lymphocytes Percent Auto 10.1 % (18.3-44.2); Mean Corpuscular HGB Conc 30.3 g/dl (32-36); Mean Corpuscular Hemoglobin 31.8 pg (26-34); Mean Corpuscular Volume 104.9 fl (80-100); Mean Platelet Volume 11.1 fl (7.4-10.4); Monocytes Absolute Auto 0.5 K/mm3 (0.1-0.6); Monocytes Percent Auto 6.9 % (2.6-8.5); Neutrophils Absolute Auto 5.6 K/mm3 (1.3-6.7); Neutrophils Percent Auto 76.1 % (45.5-73.1); Platelet Count Result 231 k/mm3 (150-375); Red Blood Count 2.23 M/mm3 (4.2-5.4); Red Cell Distribution Width 17.9 % (11.5-14.5); White Blood Count 7.4 K/mm3 (4.5-10.0)
[2023-11-19 11:19] LABS: Alanine Aminotransferase 6 U/L (6-35); Albumin Level 3.5 g/dL (3.5-5.1); Alkaline Phosphatase 103 U/L (38-126); Aspartate Amino Transferase 13 U/L (14-36); Bilirubin,Total 0.4 mg/dL (0.2-1.3); Blood Urea Nitrogen 22 mg/dL (7-17); CRP 3.4 mg/dL (<1.0); Calcium 9.3 mg/dL (8.4-10.2); Carbon Dioxide 38 mmol/L (22-30); Chloride 95 mmol/L (98-107); Estimated CRCL calculation 41 ml/min; Estimated Glomerular Filt Rate 37; Glucose 147 mg/dL (65-110); Magnesium 2.1 mg/dL (1.6-2.3)
[2023-11-19 11:26] LABS: Glucose Point of Care 139 mg/dl (65-105)
[2023-11-19 11:48] LABS: Anion Gap 3 mmol/L (4-12); Potassium 4.2 mmol/L (3.4-5.0); Sodium 136 mmol/L (137-145)
[2023-11-19] MEDS: MAGNESIUM OXIDE 400 MG TABLET PO (12:35)
[2023-11-19 16:43] LABS: Glucose Point of Care 144 mg/dl (65-105)
[2023-11-19] MEDS: ACETAMINOPHEN 325 MG TABLET 650 MG PO (17:06)
[2023-11-19] MEDS: TAPENTADOL HCL 75 MG PO (18:34)
[2023-11-19 20:18] LABS: Glucose Point of Care 150 mg/dl (65-105)
[2023-11-19] MEDS: rOPINIRole HCL 0.5 MG TABLET PO (20:27)
[2023-11-19] MEDS: ALPRAZolam (*CRX) 0.5 MG TABLET 1 MG PO (22:44)
[2023-11-20] VITALS (9 sets, daily range): BP systolic 113–160; BP diastolic 34–60; PULSE 56–65; RESP 14–20; TEMP 36.1–36.9; O2SAT 95–100
[2023-11-20] MEDS: ACETAMINOPHEN 325 MG TABLET 650 MG PO (06:07)
[2023-11-20] MEDS: LEVOTHYROXINE SODIUM 25 MCG TABLET PO (06:07)
[2023-11-20 06:33] LABS: Basophils Absolute Auto 0.1 K/mm3 (0.0-0.1); Basophils Percent Auto 0.6 % (0.2-1.2); Eosinophils Absolute Auto 0.6 K/mm3 (0-0.3); Eosinophils Percent Auto 7.9 % (0-4.4); Hematocrit 23.6 % (37.0-47.0); Immature Granulocyte Absolute 0.07 K/mm3 (0.00-0.031); Immature Granulocyte Percent A 0.9 % (0-0.5); Lymphocytes Absolute Auto 0.82 K/mm3 (0.9-3.2); Lymphocytes Percent Auto 10.2 % (18.3-44.2); Mean Corpuscular HGB Conc 29.2 g/dl (32-36); Mean Corpuscular Hemoglobin 30.4 pg (26-34); Mean Platelet Volume 10.9 fl (7.4-10.4); Monocytes Absolute Auto 0.8 K/mm3 (0.1-0.6); Monocytes Percent Auto 9.4 % (2.6-8.5); Neutrophils Absolute Auto 5.7 K/mm3 (1.3-6.7); Platelet Count Result 230 k/mm3 (150-375); Red Blood Count 2.27 M/mm3 (4.2-5.4); Red Cell Distribution Width 17.6 % (11.5-14.5)
[2023-11-20 06:44] LABS: Albumin Level 3.6 g/dL (3.5-5.1); Alkaline Phosphatase 125 U/L (38-126); Anion Gap 4 mmol/L (4-12); Aspartate Amino Transferase 13 U/L (14-36); Bilirubin,Total 0.5 mg/dL (0.2-1.3); Blood Urea Nitrogen 22 mg/dL (7-17); Calcium 9.4 mg/dL (8.4-10.2); Carbon Dioxide 34 mmol/L (22-30); Chloride 96 mmol/L (98-107); Estimated CRCL calculation 40 ml/min; Estimated Glomerular Filt Rate 37; Glucose 112 mg/dL (65-110); Magnesium 2.4 mg/dL (1.6-2.3); Potassium 3.9 mmol/L (3.4-5.0); Sodium 134 mmol/L (137-145)
[2023-11-20 06:49] LABS: Alanine Aminotransferase < 6 U/L (6-35)
[2023-11-20 07:43] LABS: Glucose Point of Care 114 mg/dl (65-105)
[2023-11-20 07:53] LABS: Hemoglobin 6.9 g/dL (12.0-15.0)
[2023-11-20 08:30] LABS: Anisocytosis 2+; Hypochromasia 1+; Macrocytosis 1+ (NORMAL); Platelet Estimate Adequate (Adequate); Polychromasia 1+; Schistocytes None Seen
[2023-11-20] MEDS: PANTOPRAZOLE 40 MG TABLET PO (08:40)
[2023-11-20] MEDS: allopurinoL 100 MG TABLET PO (08:40)
[2023-11-20] MEDS: MAGNESIUM OXIDE 400 MG TABLET PO (08:40)
[2023-11-20] MEDS: APIXABAN 2.5 MG TABLET PO ×2 (08:40→16:56)
[2023-11-20] MEDS: BUMETANIDE 1 MG TABLET PO (08:40)
[2023-11-20] MEDS: GABAPENTIN 300 MG CAPSULE PO ×3 (08:40→16:56)
[2023-11-20] MEDS: TAPENTADOL HCL 75 MG PO ×2 (08:41→16:57)
[2023-11-20] MEDS: CARBIDOPA/LEVODOPA 25/100 MG TABLET 3 TABLET PO ×3 (08:41→16:56)
[2023-11-20] MEDS: LORazepam (*CRX) 1 MG TABLET PO (08:41)
[2023-11-20] MEDS: [UNRECOGNIZED DRUG - OTHER] PO ×2 (08:42→21:45)
[2023-11-20] MEDS: OXCARBAZEPINE PO ×2 (08:42→21:45)
[2023-11-20] MEDS: ATORVASTATIN 40 MG TABLET 80 MG PO (08:42)
[2023-11-20] MEDS: LOSARTAN POTASSIUM 25 MG TABLET PO (08:43)
[2023-11-20 11:29] LABS: Glucose Point of Care 167 mg/dl (65-105)
--- NOTE | 2023-11-20 12:16 | PM.IMPN ---
Progress Note: A&P Assessment and Plan (1) CHF (congestive heart failure): Qualifiers: Heart failure chronicity: acute on chronic Code(s): I50.9 - Heart failure, unspecified Status: Acute Assessment and Plan: She has evidence of volume overload with lower extremity edema and some pulmonary vascular congestion on chest x-ray however her proBNP is markedly lower than what she typically runs. Her most recent echo showed normal systolic and diastolic function. Continue judicious IV diuresis with close monitoring of volume status, renal function, and electrolytes. PO Bumex today as well as home metolazone. elevate her legs as often as possible daily weight, strict I&O MANISH wrap BLE if VU hose not able to be applied Low sodium diet (2) Cellulitis of left leg: Code(s): L03.116 - Cellulitis of left lower limb Status: Acute Assessment and Plan: The patient presented to the emergency department with multiple complaints including lower extremity swelling, pain, and redness and increased weakness. She has been afebrile since arrival with stable vital signs and her labs are all stable compared to baseline. Left leg appears cellulitic. Started on Rocephin Erythema and warmth are improving considerably Tylenol prn for pain, norco for severe pain (3) Anemia: Qualifiers: Anemia type: due to chronic kidney disease Chronic kidney disease stage: stage 4 (severe) Qualified Code(s): N18.4 - Chronic kidney disease, stage 4 (severe); D63.1 - Anemia in chronic kidney disease Code(s): D64.9 - Anemia, unspecified Status: Acute Assessment and Plan: Hemoglobin 6.9, Hematocrit 23.6. Transfuse 1 unit of PRBC's. Monitor labs and for signs of bleeding. (4) Chronic kidney disease: Code(s): N18.9 - Chronic kidney disease, unspecified Status: Acute Assessment and Plan: Her chronic kidney disease and anemia are stable review of previous labs. Cr 1.4 today Avoid nephrotoxins (5) Mari UTI: Code(s): B37.49 - Other urogenital candidiasis Status: Acute Assessment and Plan: Urinalysis is grossly abnormal and I suspect she has a urinary tract infection due to poor hygiene as she has significant intertrigo on exam. Urine culture positive for Escherichia coli Switched antibiotic Meropenem 1 gn IVPB q12. (6) Left leg numbness: Code(s): R20.0 - Anesthesia of skin Status: Acute Assessment and Plan: Patient complains of left leg numbness and heaviness . She is able to move against resistance. She also reports left upper arm numbness. She reports a history of TIA. CT head on arrival was negative for acute stroke XR hip shows bilateral hip and sacroiliac osteoarthritis, no fracture Suspect neuropathic in nature. Continue with gabapentin Trial tapentadol 75 mg PO BID for neuropathy pain Patient unable to tolerate and refusing MRI, patient reported shortness of breath when lying down even with oxygen on. Plan This lady is chronically ill and with her recurrent admissions it seems like she is not able to care appropriately for herself at home. Previously she has declined further rehab and correction however. Care coordination consulted. PT/OT consulted for placement. Subjective Date/time seen: 11/20/23 12:16 Interval history: Patient reports pain in left leg is a 7 , constant, heavy, and aching. Patient reports she cannot tolerate the MRI because she gets short of breath lying flat, even with her oxygen on. Patient denies chest pain or palpitations. Patient is sitting up in the chair. Review of Systems Review of Systems: All systems reviewed & are unremarkable except as noted in HPI and below Exam Const: General: uncomfortable Eyes: Sclera: sclerae normal Resp: Effort & Inspection: normal respiratory effort Auscultation: clear to auscultation bilaterally Other: Chronical
[2023-11-20 16:53] LABS: Glucose Point of Care 96 mg/dl (65-105)
[2023-11-20] MEDS: MEROPENEM 1 GM/NS 100 ML 1 GM/100 ML BAG IVPB (16:57)
[2023-11-20 19:49] LABS: Glucose Point of Care 139 mg/dl (65-105)
[2023-11-20] MEDS: rOPINIRole HCL 0.5 MG TABLET PO (21:45)
[2023-11-21 05:48] VITALS: BP 143/54; PULSE 60; RESP 17; TEMP 36.9; O2SAT 100
[2023-11-21] MEDS: LEVOTHYROXINE SODIUM 25 MCG TABLET PO (06:10)
[2023-11-21] MEDS: MEROPENEM 1 GM/NS 100 ML 1 GM/100 ML BAG IVPB (06:10)
[2023-11-21 06:28] LABS: Basophils Absolute Auto 0.1 K/mm3 (0.0-0.1); Basophils Percent Auto 0.8 % (0.2-1.2); Eosinophils Absolute Auto 0.7 K/mm3 (0-0.3); Eosinophils Percent Auto 8.7 % (0-4.4); Hematocrit 26.6 % (37.0-47.0); Hemoglobin 7.8 g/dL (12.0-15.0); Immature Granulocyte Absolute 0.06 K/mm3 (0.00-0.031); Immature Granulocyte Percent A 0.8 % (0-0.5); Lymphocytes Absolute Auto 0.59 K/mm3 (0.9-3.2); Lymphocytes Percent Auto 7.8 % (18.3-44.2); Mean Corpuscular HGB Conc 29.3 g/dl (32-36); Mean Corpuscular Hemoglobin 30.1 pg (26-34); Mean Corpuscular Volume 102.7 fl (80-100); Mean Platelet Volume 11.9 fl (7.4-10.4); Monocytes Absolute Auto 0.8 K/mm3 (0.1-0.6); Monocytes Percent Auto 10.3 % (2.6-8.5); Neutrophils Absolute Auto 5.4 K/mm3 (1.3-6.7); Neutrophils Percent Auto 71.6 % (45.5-73.1); Platelet Count Result 241 k/mm3 (150-375); Red Blood Count 2.59 M/mm3 (4.2-5.4); Red Cell Distribution Width 19.1 % (11.5-14.5); White Blood Count 7.6 K/mm3 (4.5-10.0)
[2023-11-21 06:41] LABS: Albumin Level 3.8 g/dL (3.5-5.1); Alkaline Phosphatase 118 U/L (38-126); Anion Gap 4 mmol/L (4-12); Aspartate Amino Transferase 14 U/L (14-36); Bilirubin,Total 0.4 mg/dL (0.2-1.3); Blood Urea Nitrogen 27 mg/dL (7-17); Calcium 9.2 mg/dL (8.4-10.2); Carbon Dioxide 36 mmol/L (22-30); Chloride 96 mmol/L (98-107); Estimated CRCL calculation 40 ml/min; Estimated Glomerular Filt Rate 37; Glucose 112 mg/dL (65-110); Magnesium 2.3 mg/dL (1.6-2.3); Potassium 4.4 mmol/L (3.4-5.0); Sodium 136 mmol/L (137-145)
[2023-11-21 06:43] LABS: Alanine Aminotransferase < 6 U/L (6-35)
[2023-11-21 07:28] LABS: Platelet Estimate Adequate (Adequate)
[2023-11-21 07:31] LABS: Anisocytosis 1+; Hypochromasia 1+; Macrocytosis 1+ (NORMAL); Schistocytes None Seen
[2023-11-21 08:12] VITALS: O2SAT 98
[2023-11-21] MEDS: BUMETANIDE 1 MG TABLET PO (09:30)
[2023-11-21] MEDS: ATORVASTATIN 40 MG TABLET 80 MG PO (09:30)
[2023-11-21] MEDS: methocarbamoL 500 MG TABLET PO ×2 (09:30→18:02)
[2023-11-21] MEDS: LOSARTAN POTASSIUM 25 MG TABLET PO (09:31)
[2023-11-21] MEDS: MAGNESIUM OXIDE 400 MG TABLET PO (09:31)
[2023-11-21] MEDS: allopurinoL 100 MG TABLET PO (09:31)
[2023-11-21] MEDS: CARBIDOPA/LEVODOPA 25/100 MG TABLET 3 TABLET PO ×3 (09:31→16:36)
[2023-11-21] MEDS: PANTOPRAZOLE 40 MG TABLET PO (09:31)
[2023-11-21] MEDS: GABAPENTIN 300 MG CAPSULE PO ×3 (09:31→16:36)
[2023-11-21] MEDS: APIXABAN 2.5 MG TABLET PO ×2 (09:31→16:36)
[2023-11-21 09:32] LABS: Glucose Point of Care 98 mg/dl (65-105)
[2023-11-21] MEDS: [UNRECOGNIZED DRUG - OTHER] PO ×2 (09:32→20:19)
[2023-11-21] MEDS: OXCARBAZEPINE PO ×2 (09:32→20:19)
[2023-11-21] MEDS: TAPENTADOL HCL 75 MG PO ×2 (09:33→16:37)
[2023-11-21] MEDS: ACETAMINOPHEN 325 MG TABLET 650 MG PO ×2 (11:02→16:36)
[2023-11-21] MEDS: polyethylene glycoL 3350 17 GM POWD.PACK PO (11:03)
--- NOTE | 2023-11-21 11:10 | P.PNIM_ITS ---
Progress Note: A&P Assessment and Plan (1) CHF (congestive heart failure): Qualifiers: Heart failure chronicity: acute on chronic Code(s): I50.9 - Heart failure, unspecified Status: Acute Assessment and Plan: She has evidence of volume overload with lower extremity edema and some pulmonary vascular congestion on chest x-ray however her proBNP is markedly lower than what she typically runs. Her most recent echo showed normal systolic and diastolic function. * Continue judicious IV diuresis with close monitoring of volume status, renal function, and electrolytes. * PO Bumex today as well as home metolazone. * elevate her legs as often as possible * daily weight, strict I&O * MANISH wrap BLE if VU hose not able to be applied * Low sodium diet (2) Cellulitis of left leg: Code(s): L03.116 - Cellulitis of left lower limb Status: Acute Assessment and Plan: The patient presented to the emergency department with multiple complaints including lower extremity swelling, pain, and redness and increased weakness. She has been afebrile since arrival with stable vital signs and her labs are all stable compared to baseline. Left leg appears cellulitic. * Started on Rocephin, switched to PO antibiotics: Augmentin and Nitrofurantoin. * Erythema and warmth are improving considerably. * Tylenol prn for pain, norco for severe pain * Robaxin 500 mg PO x 1. (3) Anemia: Qualifiers: Anemia type: due to chronic kidney disease Chronic kidney disease stage: stage 4 (severe) Qualified Code(s): N18.4 - Chronic kidney disease, stage 4 (severe); D63.1 - Anemia in chronic kidney disease Code(s): D64.9 - Anemia, unspecified Status: Acute Assessment and Plan: * Hemoglobin 6.9, Hematocrit 23.6 prior to tranfusion. * Transfuse 1 unit of PRBC's. Post transfusion 7.8/26.6. Recheck at 2 pm was 7.5/24.8. * Monitor labs and for signs of bleeding. (4) Chronic kidney disease: Code(s): N18.9 - Chronic kidney disease, unspecified Status: Acute Assessment and Plan: Her chronic kidney disease and anemia are stable review of previous labs. * Cr 1.4 today * Avoid nephrotoxins (5) Mari UTI: Code(s): B37.49 - Other urogenital candidiasis Status: Acute Assessment and Plan: Urinalysis is grossly abnormal and I suspect she has a urinary tract infection due to poor hygiene as she has significant intertrigo on exam. * Urine culture positive for Escherichia coli * Switched antibiotic Augmentin and Nitrofurantoin (6) Left leg numbness: Code(s): R20.0 - Anesthesia of skin Status: Acute Assessment and Plan: Patient complains of left leg numbness and heaviness . She is able to move against resistance. She also reports left upper arm numbness. She reports a history of TIA. * CT head on arrival was negative for acute stroke * XR hip shows bilateral hip and sacroiliac osteoarthritis, no fracture * Suspect neuropathic in nature. Continue with gabapentin * Trial tapentadol 75 mg PO BID for neuropathy pain * Patient unable to tolerate and refusing MRI, patient reported shortness of breath when lying down even with oxygen on. Plan This lady is chronically ill and with her recurrent admissions it seems like she is not able to care appropriately for herself at home. Previously she has declined further rehab and alf however. Care coordination consulted. PT/OT consulted for placement. Subjective Date/time seen: 11/21/23 11:10 Interval history: Patient reports pain in left leg is a
--- NOTE | 2023-11-21 11:10 | PM.IMPN ---
Progress Note: A&P Assessment and Plan (1) CHF (congestive heart failure): Qualifiers: Heart failure chronicity: acute on chronic Code(s): I50.9 - Heart failure, unspecified Status: Acute Assessment and Plan: She has evidence of volume overload with lower extremity edema and some pulmonary vascular congestion on chest x-ray however her proBNP is markedly lower than what she typically runs. Her most recent echo showed normal systolic and diastolic function. Continue judicious IV diuresis with close monitoring of volume status, renal function, and electrolytes. PO Bumex today as well as home metolazone. elevate her legs as often as possible daily weight, strict I&O MANISH wrap BLE if VU hose not able to be applied Low sodium diet (2) Cellulitis of left leg: Code(s): L03.116 - Cellulitis of left lower limb Status: Acute Assessment and Plan: The patient presented to the emergency department with multiple complaints including lower extremity swelling, pain, and redness and increased weakness. She has been afebrile since arrival with stable vital signs and her labs are all stable compared to baseline. Left leg appears cellulitic. Started on Rocephin, switched to PO antibiotics: Augmentin and Nitrofurantoin. Erythema and warmth are improving considerably. Tylenol prn for pain, norco for severe pain Robaxin 500 mg PO x 1. (3) Anemia: Qualifiers: Anemia type: due to chronic kidney disease Chronic kidney disease stage: stage 4 (severe) Qualified Code(s): N18.4 - Chronic kidney disease, stage 4 (severe); D63.1 - Anemia in chronic kidney disease Code(s): D64.9 - Anemia, unspecified Status: Acute Assessment and Plan: Hemoglobin 6.9, Hematocrit 23.6 prior to tranfusion. Transfuse 1 unit of PRBC's. Post transfusion 7.8/26.6. Recheck at 2 pm was 7.5/24.8. Monitor labs and for signs of bleeding. (4) Chronic kidney disease: Code(s): N18.9 - Chronic kidney disease, unspecified Status: Acute Assessment and Plan: Her chronic kidney disease and anemia are stable review of previous labs. Cr 1.4 today Avoid nephrotoxins (5) Mari UTI: Code(s): B37.49 - Other urogenital candidiasis Status: Acute Assessment and Plan: Urinalysis is grossly abnormal and I suspect she has a urinary tract infection due to poor hygiene as she has significant intertrigo on exam. Urine culture positive for Escherichia coli Switched antibiotic Augmentin and Nitrofurantoin (6) Left leg numbness: Code(s): R20.0 - Anesthesia of skin Status: Acute Assessment and Plan: Patient complains of left leg numbness and heaviness . She is able to move against resistance. She also reports left upper arm numbness. She reports a history of TIA. CT head on arrival was negative for acute stroke XR hip shows bilateral hip and sacroiliac osteoarthritis, no fracture Suspect neuropathic in nature. Continue with gabapentin Trial tapentadol 75 mg PO BID for neuropathy pain Patient unable to tolerate and refusing MRI, patient reported shortness of breath when lying down even with oxygen on. Plan This lady is chronically ill and with her recurrent admissions it seems like she is not able to care appropriately for herself at home. Previously she has declined further rehab and assisted however. Care coordination consulted. PT/OT consulted for placement. Subjective Date/time seen: 11/21/23 11:10 Interval history: Patient reports pain in left leg is a 7 , constant, heavy, and aching. Patient reports she cannot tolerate the MRI because she gets short of breath lying flat, even with her oxygen on. Patient denies chest pain or palpitations. Patient is asking for a muscle relaxer for left leg. Review of Systems Review of Systems: All systems reviewed & are unremarkable except as noted in HPI and below Exam Const:
[2023-11-21 11:46] LABS: Glucose Point of Care 128 mg/dl (65-105)
[2023-11-21 14:00] VITALS: BP 116/41; PULSE 56; RESP 12; TEMP 36; O2SAT 99
[2023-11-21 14:23] LABS: Basophils Percent Auto 0.5 % (0.2-1.2); Eosinophils Absolute Auto 0.6 K/mm3 (0-0.3); Eosinophils Percent Auto 8.2 % (0-4.4); Hematocrit 24.8 % (37.0-47.0); Hemoglobin 7.5 g/dL (12.0-15.0); Immature Granulocyte Absolute 0.05 K/mm3 (0.00-0.031); Immature Granulocyte Percent A 0.7 % (0-0.5); Lymphocytes Absolute Auto 0.67 K/mm3 (0.9-3.2); Mean Corpuscular HGB Conc 30.2 g/dl (32-36); Mean Corpuscular Hemoglobin 30.6 pg (26-34); Mean Corpuscular Volume 101.2 fl (80-100); Mean Platelet Volume 11.4 fl (7.4-10.4); Monocytes Absolute Auto 0.8 K/mm3 (0.1-0.6); Monocytes Percent Auto 10.1 % (2.6-8.5); Neutrophils Absolute Auto 5.3 K/mm3 (1.3-6.7); Neutrophils Percent Auto 71.5 % (45.5-73.1); Platelet Count Result 221 k/mm3 (150-375); Red Blood Count 2.45 M/mm3 (4.2-5.4); Red Cell Distribution Width 18.8 % (11.5-14.5); White Blood Count 7.4 K/mm3 (4.5-10.0)
[2023-11-21 17:18] LABS: Glucose Point of Care 137 mg/dl (65-105)
[2023-11-21] MEDS: NITROFURANTOIN MONOHYD MACROCR 100 MG CAP PO (18:02)
[2023-11-21] MEDS: AMOXICILLIN/CLAVULANATE K 875-125 MG TAB 1 TABLET PO (18:02)
[2023-11-21 20:00] VITALS: O2SAT 99
[2023-11-21] MEDS: rOPINIRole HCL 0.5 MG TABLET PO (20:18)
[2023-11-21 20:21] LABS: Glucose Point of Care 131 mg/dl (65-105)
[2023-11-21 21:14] VITALS: BP 126/48; PULSE 58; RESP 16; TEMP 36.4; O2SAT 99
[2023-11-22] VITALS (12 sets, daily range): BP systolic 118–148; BP diastolic 69–97; PULSE 55–88; RESP 18–28; TEMP 36.2–37.3; O2SAT 70–100
[2023-11-22] MEDS: methocarbamoL 500 MG TABLET PO ×2 (02:25→13:00)
[2023-11-22 05:03] LABS: Glucose Point of Care 165 mg/dl (65-105)
--- NOTE | 2023-11-22 05:30 | PC.NURSE ---
Rapid Response called, see RR Call assessment.
--- NOTE | 2023-11-22 05:38 | ECG_ITS ---
Test Date: 2023-11-22 05:51:34 Measurements Intervals [place] Rate: 78 P: 24 [place]: 148 QRS: 11 QRSD: 90 T: 47 QT: 362 QTc: 415 Interpretive Statements REDUCED ECG QUALITY BECAUSE OF MOTION ARTIFACT SINUS RHYTHM GROSSLY NORMAL ECG Compared to ECG 11/17/2023 10:59:47 NO OBVIOUS CHANGE Electronically Signed On 11-22-2023 12:33:18 CDT by Joshua Mederos M.D.
[2023-11-22 05:40] LABS: Glucose Point of Care 125 mg/dl (65-105)
[2023-11-22] MEDS: LORazepam (*CRX) 1 MG TABLET PO (05:45)
[2023-11-22] MEDS: LEVOTHYROXINE SODIUM 25 MCG TABLET PO (05:45)
[2023-11-22 05:50] LABS: Basophils Percent Auto 0.1 % (0.2-1.2); Eosinophils Absolute Auto 0.7 K/mm3 (0-0.3); Eosinophils Percent Auto 4.7 % (0-4.4); Hematocrit 27.7 % (37.0-47.0); Hemoglobin 8.3 g/dL (12.0-15.0); Immature Granulocyte Absolute 0.07 K/mm3 (0.00-0.031); Immature Granulocyte Percent A 0.5 % (0-0.5); Lymphocytes Absolute Auto 0.54 K/mm3 (0.9-3.2); Lymphocytes Percent Auto 3.8 % (18.3-44.2); Mean Corpuscular Hemoglobin 30.4 pg (26-34); Mean Corpuscular Volume 101.5 fl (80-100); Mean Platelet Volume 10.7 fl (7.4-10.4); Monocytes Absolute Auto 0.7 K/mm3 (0.1-0.6); Monocytes Percent Auto 5.2 % (2.6-8.5); Neutrophils Absolute Auto 12.1 K/mm3 (1.3-6.7); Neutrophils Percent Auto 85.7 % (45.5-73.1); Platelet Count Result 238 k/mm3 (150-375); Red Blood Count 2.73 M/mm3 (4.2-5.4); Red Cell Distribution Width 18.4 % (11.5-14.5); White Blood Count 14.1 K/mm3 (4.5-10.0)
[2023-11-22] MEDS: IPRATROPIUM 0.5 MG/ALBUTEROL SULFATE 2.5 MG AMPUL.NEB 3 ML INHALATION (05:50)
[2023-11-22 06:01] LABS: Albumin Level 4.1 g/dL (3.5-5.1); Alkaline Phosphatase 148 U/L (38-126); Anion Gap 6 mmol/L (4-12); Aspartate Amino Transferase 17 U/L (14-36); Bilirubin,Total 0.6 mg/dL (0.2-1.3); Blood Urea Nitrogen 27 mg/dL (7-17); Calcium 9.4 mg/dL (8.4-10.2); Carbon Dioxide 36 mmol/L (22-30); Chloride 95 mmol/L (98-107); Estimated CRCL calculation 43 ml/min; Estimated Glomerular Filt Rate 40; Glucose 144 mg/dL (65-110); Magnesium 2.1 mg/dL (1.6-2.3); Potassium 4.6 mmol/L (3.4-5.0); Sodium 137 mmol/L (137-145)
[2023-11-22 06:12] LABS: Troponin I 0.028 ng/mL (0.000-0.034)
--- NOTE | 2023-11-22 06:15 | P.PNCROSS_ITS ---
Event Note Event Note Event Note: rapid response called approx 0530. pt reporting chest heaviness and sob. desatu rating on 3L, but quickly recovered. pt reports she was sleeping and felt she had to defecate. she then became very anxious, having a feeling of impending doom. she appeared anxious, restless, and her symptoms were alleviated by reassurance alone. breathing exercises were conducted in tandem with the pt, she was much more at ease. she takes ativan at home and it has been withheld due to concerns of adverse effects, per nursing report. she typically takes xanax 1mg twice per day. administered 1mg po x1. advise day hospitalist team to restart her home dosing to a degree. she appears to be in a withdrawal state. cxr, ekg, trop ordered.
[2023-11-22 06:27] LABS: Basophilic Stippling 1+; Hypochromasia 1+; Macrocytosis 1+ (NORMAL); Platelet Estimate Adequate (Adequate); Polychromasia 1+; Schistocytes None Seen
[2023-11-22 07:54] LABS: Glucose Point of Care 142 mg/dl (65-105)
[2023-11-22] MEDS: ATORVASTATIN 40 MG TABLET 80 MG PO (08:52)
[2023-11-22] MEDS: LOSARTAN POTASSIUM 25 MG TABLET PO (08:53)
[2023-11-22] MEDS: polyethylene glycoL 3350 17 GM POWD.PACK PO (08:53)
[2023-11-22] MEDS: PANTOPRAZOLE 40 MG TABLET PO (08:53)
[2023-11-22] MEDS: BUMETANIDE 1 MG TABLET PO (08:53)
[2023-11-22] MEDS: GABAPENTIN 300 MG CAPSULE PO ×3 (08:53→17:36)
[2023-11-22] MEDS: TAPENTADOL HCL 75 MG PO ×2 (08:53→17:36)
[2023-11-22] MEDS: allopurinoL 100 MG TABLET PO (08:53)
[2023-11-22] MEDS: CARBIDOPA/LEVODOPA 25/100 MG TABLET 3 TABLET PO ×3 (08:53→17:36)
[2023-11-22] MEDS: MAGNESIUM OXIDE 400 MG TABLET PO (08:54)
[2023-11-22] MEDS: APIXABAN 2.5 MG TABLET PO ×2 (08:54→17:36)
[2023-11-22] MEDS: OXCARBAZEPINE PO ×2 (08:54→21:00)
[2023-11-22] MEDS: [UNRECOGNIZED DRUG - OTHER] PO ×2 (08:54→21:00)
[2023-11-22] MEDS: MEROPENEM 1 GM/NS 100 ML 1 GM/100 ML BAG IVPB ×2 (09:12→21:06)
--- NOTE | 2023-11-22 09:26 | P.PNIM_ITS ---
Progress Note: A&P Assessment and Plan (1) CHF (congestive heart failure): Qualifiers: Heart failure chronicity: acute on chronic Code(s): I50.9 - Heart failure, unspecified Status: Acute Assessment and Plan: She has evidence of volume overload with lower extremity edema and some pulmonary vascular congestion on chest x-ray however her proBNP is markedly lower than what she typically runs. Her most recent echo showed normal systolic and diastolic function. * Monitoring of volume status, renal function, and electrolytes. * PO Bumex today as well as home metolazone. * elevate her legs as often as possible * daily weight, strict I&O * MANISH wrap BLE if VU hose not able to be applied * Low sodium diet * BNP 2750 today, patient given Bumex 1 mg ivp x1. * Cardiac consult, rec appreciated. * Patient had episode of chest pain overnight, denies at present. Troponin trend: 0.028> 0.062> 0.075. Next troponin at 20:00. (2) Cellulitis of left leg: Code(s): L03.116 - Cellulitis of left lower limb Status: Acute Assessment and Plan: The patient presented to the emergency department with multiple complaints including lower extremity swelling, pain, and redness and increased weakness. She has been afebrile since arrival with stable vital signs and her labs are all stable compared to baseline. Left leg appears cellulitic. * Patient receiving Meropenem 1 gm ivpb q 12. * Erythema and warmth are improving considerably. * Tylenol prn for pain, norco for severe pain (3) Anemia: Qualifiers: Anemia type: due to chronic kidney disease Chronic kidney disease stage: stage 4 (severe) Qualified Code(s): N18.4 - Chronic kidney disease, stage 4 (severe); D63.1 - Anemia in chronic kidney disease Code(s): D64.9 - Anemia, unspecified Status: Acute Assessment and Plan: * Hemoglobin 6.9, Hematocrit 23.6 prior to transfusion. * Transfuse 1 unit of PRBC's on11/20/23. Post transfusion 7.8/26.6. Recheck at 2 pm was 7.5/24.8. * Hemoglobin today 8.3 and Hematocrit 27.7, improving. * Monitor labs and for signs of bleeding. (4) Chronic kidney disease: Code(s): N18.9 - Chronic kidney disease, unspecified Status: Acute Assessment and Plan: Her chronic kidney disease and anemia are stable review of previous labs. * Cr 1.3 today * Avoid nephrotoxins (5) Mari UTI: Code(s): B37.49 - Other urogenital candidiasis Status: Acute Assessment and Plan: Urinalysis is grossly abnormal and I suspect she has a urinary tract infection due to poor hygiene as she has significant intertrigo on exam. * Urine culture positive for Escherichia coli * WBC 7.4 yesterday and increased to 14.1 today. * Restarted Meropenem 1 gm ivpb q 12. * Afebrile. (6) Left leg numbness: Code(s): R20.0 - Anesthesia of skin Status: Acute Assessment and Plan: Patient complains of left leg numbness and heaviness . She is able to move against resistance. She also reports left upper arm numbness. She reports a history of TIA. * CT head on arrival was negative for acute stroke * XR hip shows bilateral hip and sacroiliac osteoarthritis, no fracture * Suspect neuropathic in nature. Continue with gabapentin * Trial tapentadol 75 mg PO BID for neuropathy pain * Patient unable to tolerate and refusing MRI, patient reported shortness of breath when lying down even with oxygen on. Plan This lady is chronically ill and with her recurrent admissions it seems like she is not able to care appropriately for herself at home. Previ
--- NOTE | 2023-11-22 09:26 | PM.IMPN ---
Progress Note: A&P Assessment and Plan (1) CHF (congestive heart failure): Qualifiers: Heart failure chronicity: acute on chronic Code(s): I50.9 - Heart failure, unspecified Status: Acute Assessment and Plan: She has evidence of volume overload with lower extremity edema and some pulmonary vascular congestion on chest x-ray however her proBNP is markedly lower than what she typically runs. Her most recent echo showed normal systolic and diastolic function. Monitoring of volume status, renal function, and electrolytes. PO Bumex today as well as home metolazone. elevate her legs as often as possible daily weight, strict I&O MANISH wrap BLE if VU hose not able to be applied Low sodium diet BNP 2750 today, patient given Bumex 1 mg ivp x1. Cardiac consult, rec appreciated. Patient had episode of chest pain overnight, denies at present. Troponin trend: 0.028> 0.062> 0.075. Next troponin at 20:00. (2) Cellulitis of left leg: Code(s): L03.116 - Cellulitis of left lower limb Status: Acute Assessment and Plan: The patient presented to the emergency department with multiple complaints including lower extremity swelling, pain, and redness and increased weakness. She has been afebrile since arrival with stable vital signs and her labs are all stable compared to baseline. Left leg appears cellulitic. Patient receiving Meropenem 1 gm ivpb q 12. Erythema and warmth are improving considerably. Tylenol prn for pain, norco for severe pain (3) Anemia: Qualifiers: Anemia type: due to chronic kidney disease Chronic kidney disease stage: stage 4 (severe) Qualified Code(s): N18.4 - Chronic kidney disease, stage 4 (severe); D63.1 - Anemia in chronic kidney disease Code(s): D64.9 - Anemia, unspecified Status: Acute Assessment and Plan: Hemoglobin 6.9, Hematocrit 23.6 prior to transfusion. Transfuse 1 unit of PRBC's on11/20/23. Post transfusion 7.8/26.6. Recheck at 2 pm was 7.5/24.8. Hemoglobin today 8.3 and Hematocrit 27.7, improving. Monitor labs and for signs of bleeding. (4) Chronic kidney disease: Code(s): N18.9 - Chronic kidney disease, unspecified Status: Acute Assessment and Plan: Her chronic kidney disease and anemia are stable review of previous labs. Cr 1.3 today Avoid nephrotoxins (5) Mari UTI: Code(s): B37.49 - Other urogenital candidiasis Status: Acute Assessment and Plan: Urinalysis is grossly abnormal and I suspect she has a urinary tract infection due to poor hygiene as she has significant intertrigo on exam. Urine culture positive for Escherichia coli WBC 7.4 yesterday and increased to 14.1 today. Restarted Meropenem 1 gm ivpb q 12. Afebrile. (6) Left leg numbness: Code(s): R20.0 - Anesthesia of skin Status: Acute Assessment and Plan: Patient complains of left leg numbness and heaviness . She is able to move against resistance. She also reports left upper arm numbness. She reports a history of TIA. CT head on arrival was negative for acute stroke XR hip shows bilateral hip and sacroiliac osteoarthritis, no fracture Suspect neuropathic in nature. Continue with gabapentin Trial tapentadol 75 mg PO BID for neuropathy pain Patient unable to tolerate and refusing MRI, patient reported shortness of breath when lying down even with oxygen on. Plan This lady is chronically ill and with her recurrent admissions it seems like she is not able to care appropriately for herself at home. Previously she has declined further rehab and [facility] however. Care coordination consulted. PT/OT consulted for placement. Subjective Date/time seen: 11/22/23 09:26 Interval history: Patient denies chest pain, palpitations, shortness of breath, headache, or dizziness. Review of Systems Review of Systems: All systems reviewed & are unremarkable except
[2023-11-22 09:32] LABS: Troponin I 0.045 ng/mL (0.000-0.034)
[2023-11-22 09:58] LABS: Alanine Aminotransferase < 6 U/L (6-35)
--- NOTE | 2023-11-22 10:18 | ECG_ITS ---
Test Date: 2023-11-22 11:08:59 Measurements Intervals [place] Rate: 63 P: 0 [place]: 0 QRS: 9 QRSD: 88 T: 41 QT: 410 QTc: 423 Interpretive Statements REDUCED ECG QUALITY BECAUSE OF BASELINE MOTION ARTIFACT SINUS RHYTHM GROSSLY NORMAL ECG Compared to ECG 11/22/2023 05:51:34 NO OBVIOUS CHANGE Electronically Signed On 11-22-2023 12:37:50 CDT by Joshua Mederos M.D.
[2023-11-22 11:08] LABS: NT Pro B Type Natriuretic Pept 2750 pg/mL (19.9-100)
[2023-11-22 12:00] LABS: Glucose Point of Care 144 mg/dl (65-105)
[2023-11-22 12:20] LABS: Troponin I 0.062 ng/mL (0.000-0.034)
--- NOTE | 2023-11-22 12:36 | PC.NURSE ---
RN called Andressa ORMERO and informed her that the pt is having impeding doomed feeling. Actuarial Consultant instructed nurse to call bumper and painter to see her since consult was put in at 10 and hasn't been seen. Jenny Tripathi was called at 1241 and returned called and spoke with Andressa ROMERO at 1245
--- NOTE | 2023-11-22 13:38 | PM.CNCAR ---
Assessment and Plan Assessment and plan (1) Chronic kidney disease: Code(s): N18.9 - Chronic kidney disease, unspecified Status: Acute (2) Bilateral lower extremity edema: Code(s): R60.0 - Localized edema Status: Acute (3) Morbid obesity: Code(s): E66.01 - Morbid (severe) obesity due to excess calories Status: Acute Plan This is a 73-year-old woman who is morbidly obese she has untreated sleep apnea and chronic lower extremity edema which is multifactorial in my opinion related to her obesity, untreated sleep apnea and some degree of renal insufficiency. In my opinion this is not a cardiac problem in this patient does not have this syndrome of congestive heart failure. I encouraged her to reconsider her decision not to treat her sleep apnea as I described above. She says she will consider this. The event of last night I believe was primarily an anxiety/panic attack situation where she had typically have a bowel movement and was having difficulty getting to the toilet. I do not see any other clinical evidence that this was an acute cardiac event at this point I do not believe we need to continue to follow her in the hospital. Please let me know if you have any questions regarding this opinion/situation Joshua Mederos MD [facility] History of Present Illness History of Present Illness Consult date/time: 11/22/23 13:38 Reason For Visit: CHF, UTI, Leg cellutlitis Narrative: This is a 73-year-old woman I am seeing at the request of the hospitalist because of an episode of chest pain, symptoms of shortness of breath and anxiety which occurred last night while she was needing assistance to have a bowel movement. The patient has been seen in her room her chart been reviewed. She also had troponin levels drawn that are just barely out of normal range at 0.045. This patient does not have any history of significant heart disease that I can find upon review of the chart. She does carry the diagnosis of diastolic heart failure in the past. The evidence of this is difficult to find in the chart. In any event she says she came to the hospital here several days ago with primary concerns regarding significant pain in the left leg and the left arm. She was not having any symptoms of orthopnea PND or accumulating edema she does have mild chronic lower extremity edema which she says has not gotten any worse than it has been at baseline. She has been managed by the hospitalist last night while she was in the room she states she had to have a bowel movement and needed assistance she felt like she was panicking because she could not get the side rails of her bed down and in that setting began to experience symptoms of shortness of breath and reports some chest pain. Twelve lead electrocardiogram was done which is unremarkable and troponin levels were done as described above. After she got settled down and has had her bowel movement she felt better and does not have any more of those symptoms. This patient has a history of morbid obesity, sleep apnea which she has elected not to treat, diabetes and hypertension. She also has some chronic kidney disease. The last couple of echocardiograms are present in her chart are essentially unremarkable. I saw this patient in the past 1-2 years ago with concerns of regarding symptomatic Arnold arrhythmias as to whether a pacemaker should be implanted or not. We followed her telemetry in the hospital and made the decision at that time that she did not require implantation of a pacing device. The rest of her laboratory data does not show any significant cardiac abnormalities. The patient does have a history of sleep apnea which is untreated because of her refusal to consider using a CPAP device. I spent a good deal of time in her room speak to she and her about the consequences of untreated sleep apnea with accumulated the edema and in its end-stage cor pulmonale. Review of Systems
[2023-11-22 15:03] LABS: Troponin I 0.075 ng/mL (0.000-0.034)
[2023-11-22] MEDS: BUMETANIDE INJ 1 MG/4 ML VIAL IV PUSH (15:07)
[2023-11-22 16:53] LABS: Glucose Point of Care 97 mg/dl (65-105)
[2023-11-22 19:59] LABS: Glucose Point of Care 123 mg/dl (65-105)
[2023-11-22 20:38] LABS: Troponin I 0.059 ng/mL (0.000-0.034)
[2023-11-22] MEDS: rOPINIRole HCL 0.5 MG TABLET PO (20:59)
[2023-11-23] VITALS (10 sets, daily range): BP systolic 107–146; BP diastolic 36–43; PULSE 55–76; RESP 16–18; TEMP 36.4–37.2; O2SAT 99–100
[2023-11-23] MEDS: methocarbamoL 500 MG TABLET PO ×4 (00:16→21:26)
[2023-11-23] MEDS: LEVOTHYROXINE SODIUM 25 MCG TABLET PO (06:11)
[2023-11-23 07:44] LABS: Glucose Point of Care 105 mg/dl (65-105)
[2023-11-23 08:00] LABS: Glucose Point of Care 111 mg/dl (65-105)
[2023-11-23] MEDS: CARBIDOPA/LEVODOPA 25/100 MG TABLET 3 TABLET PO ×3 (08:30→17:43)
[2023-11-23] MEDS: PANTOPRAZOLE 40 MG TABLET PO (08:30)
[2023-11-23] MEDS: GABAPENTIN 300 MG CAPSULE PO ×3 (08:30→17:43)
[2023-11-23] MEDS: MAGNESIUM OXIDE 400 MG TABLET PO (08:30)
[2023-11-23] MEDS: LOSARTAN POTASSIUM 25 MG TABLET PO (08:30)
[2023-11-23] MEDS: polyethylene glycoL 3350 17 GM POWD.PACK PO (08:30)
[2023-11-23] MEDS: ATORVASTATIN 40 MG TABLET 80 MG PO (08:31)
[2023-11-23] MEDS: allopurinoL 100 MG TABLET PO (08:31)
[2023-11-23] MEDS: BUMETANIDE 1 MG TABLET PO (08:31)
[2023-11-23] MEDS: TAPENTADOL HCL 75 MG PO ×2 (08:31→17:42)
[2023-11-23] MEDS: [UNRECOGNIZED DRUG - OTHER] PO ×2 (08:31→20:59)
[2023-11-23] MEDS: APIXABAN 2.5 MG TABLET PO ×2 (08:31→17:43)
[2023-11-23] MEDS: OXCARBAZEPINE PO ×2 (08:31→20:59)
[2023-11-23] MEDS: MEROPENEM 1 GM/NS 100 ML 1 GM/100 ML BAG IVPB ×2 (08:32→21:23)
[2023-11-23] MEDS: ALPRAZolam (*CRX) 0.5 MG TABLET 1 MG PO ×2 (08:37→17:45)
--- NOTE | 2023-11-23 11:27 | P.PNIM_ITS ---
Progress Note: A&P Assessment and Plan (1) CHF (congestive heart failure): Qualifiers: Heart failure chronicity: acute on chronic Code(s): I50.9 - Heart failure, unspecified Status: Acute Assessment and Plan: She has evidence of volume overload with lower extremity edema and some pulmonary vascular congestion on chest x-ray however her proBNP is markedly lower than what she typically runs. Her most recent echo showed normal systolic and diastolic function. * Monitoring of volume status, renal function, and electrolytes. * PO Bumex today as well as home metolazone. * elevate her legs as often as possible * daily weight, strict I&O * MANISH wrap BLE if VU hose not able to be applied * Low sodium diet * BNP 2750 on 11/22/23, patient given Bumex 1 mg ivp x1. * Cardiac consult, rec appreciated. * Patient had episode of chest pain overnight on 11/21/23, denies at present. Troponin trend: 0.028> 0.062> 0.075>0.059 (2) Cellulitis of left leg: Code(s): L03.116 - Cellulitis of left lower limb Status: Acute Assessment and Plan: The patient presented to the emergency department with multiple complaints including lower extremity swelling, pain, and redness and increased weakness. She has been afebrile since arrival with stable vital signs and her labs are all stable compared to baseline. Left leg appears cellulitic. * Patient receiving Meropenem 1 gm ivpb q 12. * Erythema and warmth are improving considerably. * Tylenol prn for pain, norco for severe pain (3) Anemia: Qualifiers: Anemia type: due to chronic kidney disease Chronic kidney disease stage: stage 4 (severe) Qualified Code(s): N18.4 - Chronic kidney disease, stage 4 (severe); D63.1 - Anemia in chronic kidney disease Code(s): D64.9 - Anemia, unspecified Status: Acute Assessment and Plan: * Hemoglobin 6.9, Hematocrit 23.6 prior to transfusion. * Transfuse 1 unit of PRBC's on11/20/23. Post transfusion 7.8/26.6. Recheck at 2 pm was 7.5/24.8. * Hemoglobin today 7.3 and Hematocrit 24.3, improving. * Monitor labs and for signs of bleeding. (4) Chronic kidney disease: Code(s): N18.9 - Chronic kidney disease, unspecified Status: Acute Assessment and Plan: Her chronic kidney disease and anemia are stable review of previous labs. * Cr 1.4 today * Avoid nephrotoxins (5) Mari UTI: Code(s): B37.49 - Other urogenital candidiasis Status: Acute Assessment and Plan: Urinalysis is grossly abnormal and I suspect she has a urinary tract infection due to poor hygiene as she has significant intertrigo on exam. * Urine culture positive for Escherichia coli * WBC 7.4>14.1>10.2 * Meropenem 1 gm ivpb q 12. * Afebrile. (6) Left leg numbness: Code(s): R20.0 - Anesthesia of skin Status: Acute Assessment and Plan: Patient complains of left leg numbness and heaviness . She is able to move against resistance. She also reports left upper arm numbness. She reports a history of TIA. * CT head on arrival was negative for acute stroke * XR hip shows bilateral hip and sacroiliac osteoarthritis, no fracture * Suspect neuropathic in nature. Continue with gabapentin * Trial tapentadol 75 mg PO BID for neuropathy pain * Patient unable to tolerate and refusing MRI, patient reported shortness of breath when lying down even with oxygen on. Plan This lady is chronically ill and with her recurrent admissions it seems like she is not able to care appropriately for herself at home. Previously she has declined further rehab a
--- NOTE | 2023-11-23 11:27 | PM.IMPN ---
Progress Note: A&P Assessment and Plan (1) CHF (congestive heart failure): Qualifiers: Heart failure chronicity: acute on chronic Code(s): I50.9 - Heart failure, unspecified Status: Acute Assessment and Plan: She has evidence of volume overload with lower extremity edema and some pulmonary vascular congestion on chest x-ray however her proBNP is markedly lower than what she typically runs. Her most recent echo showed normal systolic and diastolic function. Monitoring of volume status, renal function, and electrolytes. PO Bumex today as well as home metolazone. elevate her legs as often as possible daily weight, strict I&O MANISH wrap BLE if VU hose not able to be applied Low sodium diet BNP 2750 on 11/22/23, patient given Bumex 1 mg ivp x1. Cardiac consult, rec appreciated. Patient had episode of chest pain overnight on 11/21/23, denies at present. Troponin trend: 0.028> 0.062> 0.075>0.059 (2) Cellulitis of left leg: Code(s): L03.116 - Cellulitis of left lower limb Status: Acute Assessment and Plan: The patient presented to the emergency department with multiple complaints including lower extremity swelling, pain, and redness and increased weakness. She has been afebrile since arrival with stable vital signs and her labs are all stable compared to baseline. Left leg appears cellulitic. Patient receiving Meropenem 1 gm ivpb q 12. Erythema and warmth are improving considerably. Tylenol prn for pain, norco for severe pain (3) Anemia: Qualifiers: Anemia type: due to chronic kidney disease Chronic kidney disease stage: stage 4 (severe) Qualified Code(s): N18.4 - Chronic kidney disease, stage 4 (severe); D63.1 - Anemia in chronic kidney disease Code(s): D64.9 - Anemia, unspecified Status: Acute Assessment and Plan: Hemoglobin 6.9, Hematocrit 23.6 prior to transfusion. Transfuse 1 unit of PRBC's on11/20/23. Post transfusion 7.8/26.6. Recheck at 2 pm was 7.5/24.8. Hemoglobin today 7.3 and Hematocrit 24.3, improving. Monitor labs and for signs of bleeding. (4) Chronic kidney disease: Code(s): N18.9 - Chronic kidney disease, unspecified Status: Acute Assessment and Plan: Her chronic kidney disease and anemia are stable review of previous labs. Cr 1.4 today Avoid nephrotoxins (5) Mari UTI: Code(s): B37.49 - Other urogenital candidiasis Status: Acute Assessment and Plan: Urinalysis is grossly abnormal and I suspect she has a urinary tract infection due to poor hygiene as she has significant intertrigo on exam. Urine culture positive for Escherichia coli WBC 7.4>14.1>10.2 Meropenem 1 gm ivpb q 12. Afebrile. (6) Left leg numbness: Code(s): R20.0 - Anesthesia of skin Status: Acute Assessment and Plan: Patient complains of left leg numbness and heaviness . She is able to move against resistance. She also reports left upper arm numbness. She reports a history of TIA. CT head on arrival was negative for acute stroke XR hip shows bilateral hip and sacroiliac osteoarthritis, no fracture Suspect neuropathic in nature. Continue with gabapentin Trial tapentadol 75 mg PO BID for neuropathy pain Patient unable to tolerate and refusing MRI, patient reported shortness of breath when lying down even with oxygen on. Plan This lady is chronically ill and with her recurrent admissions it seems like she is not able to care appropriately for herself at home. Previously she has declined further rehab and assisted however. Care coordination consulted. PT/OT consulted for placement. Subjective Date/time seen: 11/23/23 11:27 Interval history: Patient resting in bed. Patient denies chest pain, palpitations, or shortness of breath. Patient reports resting well last night. Review of Systems Review of Systems: All systems reviewed & are unremarkable excep
[2023-11-23 11:54] LABS: Glucose Point of Care 131 mg/dl (65-105)
[2023-11-23 12:52] LABS: Hematocrit 24.3 % (37.0-47.0); Hemoglobin 7.3 g/dL (12.0-15.0); Mean Corpuscular Hemoglobin 30.3 pg (26-34); Mean Corpuscular Volume 100.8 fl (80-100); Mean Platelet Volume 11.3 fl (7.4-10.4); Platelet Count Result 197 k/mm3 (150-375); Red Blood Count 2.41 M/mm3 (4.2-5.4); Red Cell Distribution Width 17.9 % (11.5-14.5); White Blood Count 10.2 K/mm3 (4.5-10.0)
[2023-11-23 13:01] LABS: Albumin Level 3.5 g/dL (3.5-5.1); Alkaline Phosphatase 101 U/L (38-126); Anion Gap 4 mmol/L (4-12); Aspartate Amino Transferase 14 U/L (14-36); Bilirubin,Total 0.6 mg/dL (0.2-1.3); Blood Urea Nitrogen 28 mg/dL (7-17); Calcium 9.2 mg/dL (8.4-10.2); Carbon Dioxide 37 mmol/L (22-30); Chloride 95 mmol/L (98-107); Estimated CRCL calculation 40 ml/min; Estimated Glomerular Filt Rate 37; Glucose 132 mg/dL (65-110); Magnesium 2.1 mg/dL (1.6-2.3); Potassium 4.4 mmol/L (3.4-5.0); Sodium 136 mmol/L (137-145)
[2023-11-23 13:09] LABS: Alanine Aminotransferase < 6 U/L (6-35)
[2023-11-23 13:12] LABS: Band Neutrophils Percent 5 % (0-6); Eosinophils Absolute Manual 0.51 K/mm3 (0.02-0.50); Eosinophils Percent Manual 5 % (0-4); Hypochromasia 2+; Lymphocytes Percent Manual 4 % (18-44); Monocytes Percent Manual 4 % (3-9); Neutrophils Absolute Manual 8.87 K/mm3 (1.7-7.2); Neutrophils Percent Manual 82 % (46-73); Platelet Estimate Adequate (Adequate); Total Cells Counted 100
[2023-11-23 13:13] LABS: Anisocytosis 1+; Schistocytes None Seen; Stomatocytes 2+
[2023-11-23 16:50] LABS: Glucose Point of Care 118 mg/dl (65-105)
[2023-11-23] MEDS: ACETAMINOPHEN 325 MG TABLET 650 MG PO (18:08)
[2023-11-23 20:14] LABS: Glucose Point of Care 145 mg/dl (65-105)
[2023-11-23] MEDS: rOPINIRole HCL 0.5 MG TABLET PO (20:59)
[2023-11-24] VITALS (11 sets, daily range): BP systolic 114–133; BP diastolic 42–49; PULSE 50–57; RESP 14–18; TEMP 36.2–36.5; O2SAT 95–100
[2023-11-24] MEDS: ACETAMINOPHEN 325 MG TABLET 650 MG PO ×2 (05:20→16:36)
[2023-11-24] MEDS: LEVOTHYROXINE SODIUM 25 MCG TABLET PO (05:20)
[2023-11-24] MEDS: methocarbamoL 500 MG TABLET PO ×5 (05:25→21:18)
[2023-11-24 06:41] LABS: Basophils Percent Auto 0.3 % (0.2-1.2); Eosinophils Absolute Auto 1.2 K/mm3 (0-0.3); Eosinophils Percent Auto 11.4 % (0-4.4); Hematocrit 24.4 % (37.0-47.0); Hemoglobin 7.3 g/dL (12.0-15.0); Immature Granulocyte Absolute 0.11 K/mm3 (0.00-0.031); Immature Granulocyte Percent A 1.1 % (0-0.5); Lymphocytes Absolute Auto 0.66 K/mm3 (0.9-3.2); Lymphocytes Percent Auto 6.5 % (18.3-44.2); Mean Corpuscular HGB Conc 29.9 g/dl (32-36); Mean Corpuscular Hemoglobin 30.4 pg (26-34); Mean Corpuscular Volume 101.7 fl (80-100); Mean Platelet Volume 12.2 fl (7.4-10.4); Monocytes Absolute Auto 1.1 K/mm3 (0.1-0.6); Monocytes Percent Auto 10.4 % (2.6-8.5); Neutrophils Absolute Auto 7.2 K/mm3 (1.3-6.7); Neutrophils Percent Auto 70.3 % (45.5-73.1); Platelet Count Result 194 k/mm3 (150-375); Red Cell Distribution Width 17.8 % (11.5-14.5); White Blood Count 10.2 K/mm3 (4.5-10.0)
[2023-11-24 07:00] LABS: Albumin Level 3.4 g/dL (3.5-5.1); Alkaline Phosphatase 116 U/L (38-126); Anion Gap 4 mmol/L (4-12); Aspartate Amino Transferase 14 U/L (14-36); Bilirubin,Total 0.7 mg/dL (0.2-1.3); Blood Urea Nitrogen 30 mg/dL (7-17); Calcium 8.9 mg/dL (8.4-10.2); Carbon Dioxide 36 mmol/L (22-30); Chloride 95 mmol/L (98-107); Estimated CRCL calculation 34 ml/min; Estimated Glomerular Filt Rate 29; Glucose 113 mg/dL (65-110); Potassium 4.3 mmol/L (3.4-5.0); Sodium 135 mmol/L (137-145)
[2023-11-24 07:11] LABS: Anisocytosis 1+; Hypochromasia 2+; Platelet Estimate Adequate (Adequate); Schistocytes None Seen; Stomatocytes 1+
[2023-11-24 07:13] LABS: Alanine Aminotransferase < 6 U/L (6-35)
[2023-11-24 07:58] LABS: Glucose Point of Care 112 mg/dl (65-105)
[2023-11-24] MEDS: ATORVASTATIN 40 MG TABLET 80 MG PO (08:16)
[2023-11-24] MEDS: APIXABAN 2.5 MG TABLET PO ×2 (08:17→16:23)
[2023-11-24] MEDS: TAPENTADOL HCL 75 MG PO ×2 (08:17→16:23)
[2023-11-24] MEDS: GABAPENTIN 300 MG CAPSULE PO ×3 (08:17→16:23)
[2023-11-24] MEDS: polyethylene glycoL 3350 17 GM POWD.PACK PO (08:17)
[2023-11-24] MEDS: MAGNESIUM OXIDE 400 MG TABLET PO (08:17)
[2023-11-24] MEDS: LOSARTAN POTASSIUM 25 MG TABLET PO (08:17)
[2023-11-24] MEDS: CARBIDOPA/LEVODOPA 25/100 MG TABLET 3 TABLET PO ×3 (08:17→16:23)
[2023-11-24] MEDS: allopurinoL 100 MG TABLET PO (08:17)
[2023-11-24] MEDS: BUMETANIDE 1 MG TABLET PO (08:17)
[2023-11-24] MEDS: PANTOPRAZOLE 40 MG TABLET PO (08:17)
[2023-11-24] MEDS: OXCARBAZEPINE PO ×2 (08:18→20:39)
[2023-11-24] MEDS: [UNRECOGNIZED DRUG - OTHER] PO ×2 (08:18→20:39)
[2023-11-24] MEDS: MEROPENEM 1 GM/NS 100 ML 1 GM/100 ML BAG IVPB ×2 (08:18→20:39)
[2023-11-24] MEDS: ALPRAZolam (*CRX) 0.5 MG TABLET 1 MG PO (08:38)
--- NOTE | 2023-11-24 11:17 | P.PNIM_ITS ---
Progress Note: A&P Assessment and Plan (1) CHF (congestive heart failure): Qualifiers: Heart failure chronicity: acute on chronic Code(s): I50.9 - Heart failure, unspecified Status: Acute Assessment and Plan: She has evidence of volume overload with lower extremity edema and some pulmonary vascular congestion on chest x-ray however her proBNP is markedly lower than what she typically runs. Her most recent echo showed normal systolic and diastolic function. * Monitoring of volume status, renal function, and electrolytes. * PO Bumex today as well as home metolazone. * elevate her legs as often as possible * daily weight, strict I&O * MANISH wrap BLE if VU hose not able to be applied * Low sodium diet * BNP 2750 on 11/22/23, patient given Bumex 1 mg ivp x1. * Cardiac consult, rec appreciated. * Patient had episode of chest pain overnight on 11/21/23, denies at present. Troponin trend: 0.028> 0.062> 0.075>0.059 (2) Cellulitis of left leg: Code(s): L03.116 - Cellulitis of left lower limb Status: Acute Assessment and Plan: The patient presented to the emergency department with multiple complaints including lower extremity swelling, pain, and redness and increased weakness. She has been afebrile since arrival with stable vital signs and her labs are all stable compared to baseline. Left leg appears cellulitic. * Patient receiving Meropenem 1 gm ivpb q 12. * Erythema and warmth are improving considerably. * Tylenol prn for pain, norco for severe pain (3) Anemia: Qualifiers: Anemia type: due to chronic kidney disease Chronic kidney disease stage: stage 4 (severe) Qualified Code(s): N18.4 - Chronic kidney disease, stage 4 (severe); D63.1 - Anemia in chronic kidney disease Code(s): D64.9 - Anemia, unspecified Status: Acute Assessment and Plan: * Hemoglobin 6.9, Hematocrit 23.6 prior to transfusion. * Transfuse 1 unit of PRBC's on11/20/23. Post transfusion 7.8/26.6. Recheck at 2 pm was 7.5/24.8. * Hemoglobin today 7.3 and Hematocrit 24.4, improving. * Monitor labs and for signs of bleeding. (4) Chronic kidney disease: Code(s): N18.9 - Chronic kidney disease, unspecified Status: Acute Assessment and Plan: Her chronic kidney disease and anemia are stable review of previous labs. * Cr 1.7 today * Avoid nephrotoxins (5) Mari UTI: Code(s): B37.49 - Other urogenital candidiasis Status: Acute Assessment and Plan: Urinalysis is grossly abnormal and I suspect she has a urinary tract infection due to poor hygiene as she has significant intertrigo on exam. * Urine culture positive for Escherichia coli * WBC 7.4>14.1>10.2>10.2 * Meropenem 1 gm ivpb q 12. * Afebrile. (6) Left leg numbness: Code(s): R20.0 - Anesthesia of skin Status: Acute Assessment and Plan: Patient complains of left leg numbness and heaviness . She is able to move against resistance. She also reports left upper arm numbness. She reports a history of TIA. * CT head on arrival was negative for acute stroke * XR hip shows bilateral hip and sacroiliac osteoarthritis, no fracture * Suspect neuropathic in nature. Continue with gabapentin * Trial tapentadol 75 mg PO BID for neuropathy pain * Patient unable to tolerate and refusing MRI, patient reported shortness of breath when lying down even with oxygen on. Plan This lady is chronically ill and with her recurrent admissions it seems like she is not able to care appropriately for herself at home. Previously she has decl ined further re
--- NOTE | 2023-11-24 11:17 | PM.IMPN ---
Progress Note: A&P Assessment and Plan (1) CHF (congestive heart failure): Qualifiers: Heart failure chronicity: acute on chronic Code(s): I50.9 - Heart failure, unspecified Status: Acute Assessment and Plan: She has evidence of volume overload with lower extremity edema and some pulmonary vascular congestion on chest x-ray however her proBNP is markedly lower than what she typically runs. Her most recent echo showed normal systolic and diastolic function. Monitoring of volume status, renal function, and electrolytes. PO Bumex today as well as home metolazone. elevate her legs as often as possible daily weight, strict I&O MANISH wrap BLE if VU hose not able to be applied Low sodium diet BNP 2750 on 11/22/23, patient given Bumex 1 mg ivp x1. Cardiac consult, rec appreciated. Patient had episode of chest pain overnight on 11/21/23, denies at present. Troponin trend: 0.028> 0.062> 0.075>0.059 (2) Cellulitis of left leg: Code(s): L03.116 - Cellulitis of left lower limb Status: Acute Assessment and Plan: The patient presented to the emergency department with multiple complaints including lower extremity swelling, pain, and redness and increased weakness. She has been afebrile since arrival with stable vital signs and her labs are all stable compared to baseline. Left leg appears cellulitic. Patient receiving Meropenem 1 gm ivpb q 12. Erythema and warmth are improving considerably. Tylenol prn for pain, norco for severe pain (3) Anemia: Qualifiers: Anemia type: due to chronic kidney disease Chronic kidney disease stage: stage 4 (severe) Qualified Code(s): N18.4 - Chronic kidney disease, stage 4 (severe); D63.1 - Anemia in chronic kidney disease Code(s): D64.9 - Anemia, unspecified Status: Acute Assessment and Plan: Hemoglobin 6.9, Hematocrit 23.6 prior to transfusion. Transfuse 1 unit of PRBC's on11/20/23. Post transfusion 7.8/26.6. Recheck at 2 pm was 7.5/24.8. Hemoglobin today 7.3 and Hematocrit 24.4, improving. Monitor labs and for signs of bleeding. (4) Chronic kidney disease: Code(s): N18.9 - Chronic kidney disease, unspecified Status: Acute Assessment and Plan: Her chronic kidney disease and anemia are stable review of previous labs. Cr 1.7 today Avoid nephrotoxins (5) Mari UTI: Code(s): B37.49 - Other urogenital candidiasis Status: Acute Assessment and Plan: Urinalysis is grossly abnormal and I suspect she has a urinary tract infection due to poor hygiene as she has significant intertrigo on exam. Urine culture positive for Escherichia coli WBC 7.4>14.1>10.2>10.2 Meropenem 1 gm ivpb q 12. Afebrile. (6) Left leg numbness: Code(s): R20.0 - Anesthesia of skin Status: Acute Assessment and Plan: Patient complains of left leg numbness and heaviness . She is able to move against resistance. She also reports left upper arm numbness. She reports a history of TIA. CT head on arrival was negative for acute stroke XR hip shows bilateral hip and sacroiliac osteoarthritis, no fracture Suspect neuropathic in nature. Continue with gabapentin Trial tapentadol 75 mg PO BID for neuropathy pain Patient unable to tolerate and refusing MRI, patient reported shortness of breath when lying down even with oxygen on. Plan This lady is chronically ill and with her recurrent admissions it seems like she is not able to care appropriately for herself at home. Previously she has declined further rehab and shelter however. Care coordination consulted. PT/OT consulted for placement. Subjective Date/time seen: 11/24/23 11:17 Interval history: Patient reports that her pain in her left leg has improved, pain is a 4 , constant, and aching. Patient denies chest pain, palpitations, headache, and dizziness. Review of Systems Review of Systems: All sys
[2023-11-24 11:41] LABS: Glucose Point of Care 163 mg/dl (65-105)
[2023-11-24 16:55] LABS: Glucose Point of Care 111 mg/dl (65-105)
[2023-11-24 20:13] LABS: Glucose Point of Care 118 mg/dl (65-105)
[2023-11-24] MEDS: rOPINIRole HCL 0.5 MG TABLET PO (20:39)
[2023-11-25] VITALS (9 sets, daily range): BP systolic 108–149; BP diastolic 35–61; PULSE 52–64; RESP 14–24; TEMP 36.6–36.7; O2SAT 100
[2023-11-25] MEDS: LEVOTHYROXINE SODIUM 25 MCG TABLET PO (06:11)
[2023-11-25 06:41] LABS: Basophils Percent Auto 0.2 % (0.2-1.2); Eosinophils Absolute Auto 1.2 K/mm3 (0-0.3); Eosinophils Percent Auto 11.4 % (0-4.4); Hematocrit 23.8 % (37.0-47.0); Hemoglobin 7.1 g/dL (12.0-15.0); Immature Granulocyte Absolute 0.09 K/mm3 (0.00-0.031); Immature Granulocyte Percent A 0.8 % (0-0.5); Lymphocytes Absolute Auto 0.59 K/mm3 (0.9-3.2); Lymphocytes Percent Auto 5.5 % (18.3-44.2); Mean Corpuscular HGB Conc 29.8 g/dl (32-36); Mean Corpuscular Hemoglobin 30.3 pg (26-34); Mean Corpuscular Volume 101.7 fl (80-100); Mean Platelet Volume 12.4 fl (7.4-10.4); Monocytes Percent Auto 8.8 % (2.6-8.5); Neutrophils Absolute Auto 7.9 K/mm3 (1.3-6.7); Neutrophils Percent Auto 73.3 % (45.5-73.1); Platelet Count Result 189 k/mm3 (150-375); Red Blood Count 2.34 M/mm3 (4.2-5.4); Red Cell Distribution Width 17.9 % (11.5-14.5); White Blood Count 10.8 K/mm3 (4.5-10.0)
[2023-11-25 06:56] LABS: Albumin Level 3.6 g/dL (3.5-5.1); Alkaline Phosphatase 119 U/L (38-126); Anion Gap 4 mmol/L (4-12); Aspartate Amino Transferase 13 U/L (14-36); Bilirubin,Total 0.6 mg/dL (0.2-1.3); Blood Urea Nitrogen 32 mg/dL (7-17); Calcium 9.1 mg/dL (8.4-10.2); Carbon Dioxide 35 mmol/L (22-30); Chloride 95 mmol/L (98-107); Estimated CRCL calculation 34 ml/min; Estimated Glomerular Filt Rate 29; Glucose 111 mg/dL (65-110); Potassium 4.4 mmol/L (3.4-5.0); Sodium 134 mmol/L (137-145)
[2023-11-25 07:03] LABS: Alanine Aminotransferase < 6 U/L (6-35); Anisocytosis 1+; Hypochromasia 1+; Platelet Estimate Adequate (Adequate); Schistocytes None Seen
[2023-11-25 08:13] LABS: Glucose Point of Care 110 mg/dl (65-105)
[2023-11-25] MEDS: GABAPENTIN 300 MG CAPSULE PO ×3 (08:25→17:41)
[2023-11-25] MEDS: ATORVASTATIN 40 MG TABLET 80 MG PO (08:25)
[2023-11-25] MEDS: MAGNESIUM OXIDE 400 MG TABLET PO (08:25)
[2023-11-25] MEDS: BUMETANIDE 1 MG TABLET PO (08:26)
[2023-11-25] MEDS: allopurinoL 100 MG TABLET PO (08:26)
[2023-11-25] MEDS: CARBIDOPA/LEVODOPA 25/100 MG TABLET 3 TABLET PO ×3 (08:26→17:41)
[2023-11-25] MEDS: LOSARTAN POTASSIUM 25 MG TABLET PO (08:26)
[2023-11-25] MEDS: PANTOPRAZOLE 40 MG TABLET PO (08:26)
[2023-11-25] MEDS: APIXABAN 2.5 MG TABLET PO ×2 (08:26→17:41)
[2023-11-25] MEDS: TAPENTADOL HCL 75 MG PO ×2 (08:27→17:41)
[2023-11-25] MEDS: polyethylene glycoL 3350 17 GM POWD.PACK PO (08:27)
[2023-11-25] MEDS: OXCARBAZEPINE PO ×2 (08:27→20:51)
[2023-11-25] MEDS: [UNRECOGNIZED DRUG - OTHER] PO ×2 (08:27→20:51)
[2023-11-25] MEDS: MEROPENEM 1 GM/NS 100 ML 1 GM/100 ML BAG IVPB ×2 (08:30→20:41)
[2023-11-25] MEDS: methocarbamoL 500 MG TABLET PO ×3 (08:38→20:45)
[2023-11-25] MEDS: SODIUM CHLORIDE 0.9% IV 250 ML 50 ML IV CONT (09:20)
--- NOTE | 2023-11-25 09:55 | PCNWS ---
Weekly nutritional screen. Patient is tolerating current heart healthy diet with adequate intake at 75-100% of meals. No weight loss reported. No nutritional recommendations at this time.
--- NOTE | 2023-11-25 10:10 | P.PNIM_ITS ---
Progress Note: A&P Assessment and Plan (1) CHF (congestive heart failure): Qualifiers: Heart failure chronicity: acute on chronic Code(s): I50.9 - Heart failure, unspecified Status: Acute Assessment and Plan: She has evidence of volume overload with lower extremity edema and some pulmonary vascular congestion on chest x-ray however her proBNP is markedly lower than what she typically runs. Her most recent echo showed normal systolic and diastolic function. * Monitoring of volume status, renal function, and electrolytes. * Receiving PO Bumex today and home metolazone. * elevate her legs as often as possible * daily weight, strict I&O * MANISH wrap BLE if VU hose not able to be applied * Low sodium diet * BNP 2750 on 11/22/23, patient given Bumex 1 mg ivp x1. * Cardiac consult, rec appreciated. * Patient had episode of chest pain overnight on 11/21/23, denies at present. Troponin trend: 0.028> 0.062> 0.075>0.059 (2) Cellulitis of left leg: Code(s): L03.116 - Cellulitis of left lower limb Status: Acute Assessment and Plan: The patient presented to the emergency department with multiple complaints including lower extremity swelling, pain, and redness and increased weakness. She has been afebrile since arrival with stable vital signs and her labs are all stable compared to baseline. Left leg appears cellulitic. * Patient receiving Meropenem 1 gm ivpb q 12. * Erythema and warmth are improving considerably. * Tylenol prn for pain, norco for severe pain * Robaxin 500 mg PO TID PRN. (3) Anemia: Qualifiers: Anemia type: due to chronic kidney disease Chronic kidney disease stage: stage 4 (severe) Qualified Code(s): N18.4 - Chronic kidney disease, stage 4 (severe); D63.1 - Anemia in chronic kidney disease Code(s): D64.9 - Anemia, unspecified Status: Acute Assessment and Plan: * Hemoglobin 6.9, Hematocrit 23.6 prior to transfusion. * Transfuse 1 unit of PRBC's on11/20/23. Post transfusion 7.8/26.6. Recheck at 2 pm was 7.5/24.8. * Hemoglobin today 7.1 and Hematocrit 23.8, improving. * Monitor labs and for signs of bleeding. (4) Chronic kidney disease: Code(s): N18.9 - Chronic kidney disease, unspecified Status: Acute Assessment and Plan: Her chronic kidney disease and anemia are stable review of previous labs. * Cr 1.7 today. * NS@ 50 ml/hr for 500 ml/hr. * Avoid nephrotoxins (5) Mari UTI: Code(s): B37.49 - Other urogenital candidiasis Status: Acute Assessment and Plan: Urinalysis is grossly abnormal and I suspect she has a urinary tract infection due to poor hygiene as she has significant intertrigo on exam. * Urine culture positive for Escherichia coli * WBC 7.4>14.1>10.2>10.2>10.8 * Meropenem 1 gm ivpb q 12. * Afebrile. (6) Left leg numbness: Code(s): R20.0 - Anesthesia of skin Status: Acute Assessment and Plan: Patient complains of left leg numbness and heaviness . She is able to move against resistance. She also reports left upper arm numbness. She reports a history of TIA. * CT head on arrival was negative for acute stroke * XR hip shows bilateral hip and sacroiliac osteoarthritis, no fracture * Suspect neuropathic in nature. Continue with gabapentin * Trial tapentadol 75 mg PO BID for neuropathy pain * Patient unable to tolerate and refusing MRI, patient reported shortness of breath when lying down even with oxygen on. (7) Intertrigo: Code(s): L30.4 - Erythema intertrigo Status: Acute Assessment a
--- NOTE | 2023-11-25 10:10 | PM.IMPN ---
Progress Note: A&P Assessment and Plan (1) CHF (congestive heart failure): Qualifiers: Heart failure chronicity: acute on chronic Code(s): I50.9 - Heart failure, unspecified Status: Acute Assessment and Plan: She has evidence of volume overload with lower extremity edema and some pulmonary vascular congestion on chest x-ray however her proBNP is markedly lower than what she typically runs. Her most recent echo showed normal systolic and diastolic function. Monitoring of volume status, renal function, and electrolytes. Receiving PO Bumex today and home metolazone. elevate her legs as often as possible daily weight, strict I&O MANISH wrap BLE if VU hose not able to be applied Low sodium diet BNP 2750 on 11/22/23, patient given Bumex 1 mg ivp x1. Cardiac consult, rec appreciated. Patient had episode of chest pain overnight on 11/21/23, denies at present. Troponin trend: 0.028> 0.062> 0.075>0.059 (2) Cellulitis of left leg: Code(s): L03.116 - Cellulitis of left lower limb Status: Acute Assessment and Plan: The patient presented to the emergency department with multiple complaints including lower extremity swelling, pain, and redness and increased weakness. She has been afebrile since arrival with stable vital signs and her labs are all stable compared to baseline. Left leg appears cellulitic. Patient receiving Meropenem 1 gm ivpb q 12. Erythema and warmth are improving considerably. Tylenol prn for pain, norco for severe pain Robaxin 500 mg PO TID PRN. (3) Anemia: Qualifiers: Anemia type: due to chronic kidney disease Chronic kidney disease stage: stage 4 (severe) Qualified Code(s): N18.4 - Chronic kidney disease, stage 4 (severe); D63.1 - Anemia in chronic kidney disease Code(s): D64.9 - Anemia, unspecified Status: Acute Assessment and Plan: Hemoglobin 6.9, Hematocrit 23.6 prior to transfusion. Transfuse 1 unit of PRBC's on11/20/23. Post transfusion 7.8/26.6. Recheck at 2 pm was 7.5/24.8. Hemoglobin today 7.1 and Hematocrit 23.8, improving. Monitor labs and for signs of bleeding. (4) Chronic kidney disease: Code(s): N18.9 - Chronic kidney disease, unspecified Status: Acute Assessment and Plan: Her chronic kidney disease and anemia are stable review of previous labs. Cr 1.7 today. NS@ 50 ml/hr for 500 ml/hr. Avoid nephrotoxins (5) Mari UTI: Code(s): B37.49 - Other urogenital candidiasis Status: Acute Assessment and Plan: Urinalysis is grossly abnormal and I suspect she has a urinary tract infection due to poor hygiene as she has significant intertrigo on exam. Urine culture positive for Escherichia coli WBC 7.4>14.1>10.2>10.2>10.8 Meropenem 1 gm ivpb q 12. Afebrile. (6) Left leg numbness: Code(s): R20.0 - Anesthesia of skin Status: Acute Assessment and Plan: Patient complains of left leg numbness and heaviness . She is able to move against resistance. She also reports left upper arm numbness. She reports a history of TIA. CT head on arrival was negative for acute stroke XR hip shows bilateral hip and sacroiliac osteoarthritis, no fracture Suspect neuropathic in nature. Continue with gabapentin Trial tapentadol 75 mg PO BID for neuropathy pain Patient unable to tolerate and refusing MRI, patient reported shortness of breath when lying down even with oxygen on. (7) Intertrigo: Code(s): L30.4 - Erythema intertrigo Status: Acute Assessment and Plan: Wash the affected area daily and pat dry. Apply thin layer of Nystatin cream under breasts and apron. Plan This lady is chronically ill and with her recurrent admissions it seems like she is not able to care appropriately for herself at home. Previously she has declined further rehab and prison however. Care coordination consulted. PT/OT consulted for [facility]
[2023-11-25 11:45] LABS: Glucose Point of Care 80 mg/dl (65-105)
[2023-11-25] MEDS: MICONAZOLE NITRATE 2% CREAM 30 GM TUBE 1 APPLIC TOPICAL ×2 (11:46→20:44)
[2023-11-25 16:42] LABS: Glucose Point of Care 103 mg/dl (65-105)
[2023-11-25] MEDS: ACETAMINOPHEN 325 MG TABLET 650 MG PO (20:45)
[2023-11-25] MEDS: rOPINIRole HCL 0.5 MG TABLET PO (20:45)
[2023-11-25 21:09] LABS: Glucose Point of Care 104 mg/dl (65-105)
[2023-11-26] VITALS (15 sets, daily range): BP systolic 100–139; BP diastolic 43–72; PULSE 48–74; RESP 14–100; TEMP 36.1–37; O2SAT 96–100
[2023-11-26] MEDS: ACETAMINOPHEN 325 MG TABLET 650 MG PO (00:25)
[2023-11-26] MEDS: LEVOTHYROXINE SODIUM 25 MCG TABLET PO (05:14)
[2023-11-26 06:38] LABS: Basophils Percent Auto 0.4 % (0.2-1.2); Eosinophils Absolute Auto 1.1 K/mm3 (0-0.3); Eosinophils Percent Auto 11.7 % (0-4.4); Hematocrit 23.6 % (37.0-47.0); Immature Granulocyte Absolute 0.08 K/mm3 (0.00-0.031); Immature Granulocyte Percent A 0.8 % (0-0.5); Immature Platelet Fraction Pct 11.3 % (0.9-11.2); Lymphocytes Absolute Auto 0.72 K/mm3 (0.9-3.2); Lymphocytes Percent Auto 7.5 % (18.3-44.2); Mean Corpuscular HGB Conc 29.7 g/dl (32-36); Mean Corpuscular Hemoglobin 30.3 pg (26-34); Mean Corpuscular Volume 102.2 fl (80-100); Mean Platelet Volume 12.6 fl (7.4-10.4); Monocytes Absolute Auto 0.9 K/mm3 (0.1-0.6); Monocytes Percent Auto 9.4 % (2.6-8.5); Neutrophils Absolute Auto 6.8 K/mm3 (1.3-6.7); Neutrophils Percent Auto 70.2 % (45.5-73.1); Platelet Count Result 188 k/mm3 (150-375); Red Blood Count 2.31 M/mm3 (4.2-5.4); White Blood Count 9.7 K/mm3 (4.5-10.0)
[2023-11-26 06:45] LABS: Albumin Level 3.6 g/dL (3.5-5.1); Alkaline Phosphatase 121 U/L (38-126); Anion Gap 4 mmol/L (4-12); Aspartate Amino Transferase 13 U/L (14-36); Bilirubin,Total 0.7 mg/dL (0.2-1.3); Blood Urea Nitrogen 36 mg/dL (7-17); Carbon Dioxide 35 mmol/L (22-30); Chloride 93 mmol/L (98-107); Estimated CRCL calculation 31 ml/min; Estimated Glomerular Filt Rate 26; Glucose 96 mg/dL (65-110); Potassium 4.7 mmol/L (3.4-5.0); Sodium 132 mmol/L (137-145)
[2023-11-26 06:48] LABS: Alanine Aminotransferase < 6 U/L (6-35)
[2023-11-26 07:22] LABS: Anisocytosis 1+; Hypochromasia 2+; Platelet Estimate Adequate (Adequate); Schistocytes None Seen; Stomatocytes 2+
[2023-11-26 07:59] LABS: Glucose Point of Care 108 mg/dl (65-105)
[2023-11-26] MEDS: GABAPENTIN 300 MG CAPSULE PO ×3 (08:49→18:08)
[2023-11-26] MEDS: CARBIDOPA/LEVODOPA 25/100 MG TABLET 3 TABLET PO ×3 (08:49→18:08)
[2023-11-26] MEDS: ATORVASTATIN 40 MG TABLET 80 MG PO (08:49)
[2023-11-26] MEDS: allopurinoL 100 MG TABLET PO (08:49)
[2023-11-26] MEDS: PANTOPRAZOLE 40 MG TABLET PO (08:49)
[2023-11-26] MEDS: BUMETANIDE 1 MG TABLET PO (08:49)
[2023-11-26] MEDS: LOSARTAN POTASSIUM 25 MG TABLET PO (08:49)
[2023-11-26] MEDS: MAGNESIUM OXIDE 400 MG TABLET PO (08:50)
[2023-11-26] MEDS: TAPENTADOL HCL 75 MG PO ×2 (08:50→18:08)
[2023-11-26] MEDS: APIXABAN 2.5 MG TABLET PO ×2 (08:50→18:08)
[2023-11-26] MEDS: methocarbamoL 500 MG TABLET PO ×2 (08:50→20:07)
[2023-11-26] MEDS: MICONAZOLE NITRATE 2% CREAM 30 GM TUBE 1 APPLIC TOPICAL ×2 (08:51→20:09)
[2023-11-26] MEDS: [UNRECOGNIZED DRUG - OTHER] PO ×2 (09:03→20:09)
[2023-11-26] MEDS: OXCARBAZEPINE PO ×2 (09:03→20:09)
--- NOTE | 2023-11-26 11:20 | P.CONNP_ITS ---
Assessment and Plan Assessment and plan (1) Stage 3b chronic kidney disease: Code(s): N18.32 - Chronic kidney disease, stage 3b Status: Chronic Assessment and Plan: * creatinine seems to run ~ 1.5 - 1.8mg/dl * due to HTN, DM, vascular disease and age * follows with Dr. Montoya for management of CKD (2) Congestive heart failure: Qualifiers: Heart failure chronicity: acute on chronic Heart failure type: unspecified Qualified Code(s): I50.9 - Heart failure, unspecified Code(s): I50.9 - Heart failure, unspecified Status: Acute Assessment and Plan: * as evidenced by increased LE edema and pulmonary vascular congestion (on CXR) on admission * on diuretic therapy * follow daily weights, I/Os, and clinical exam * Cardiology recommendations noted * follow renal function with ongoing therapy (3) Cellulitis of left leg: Code(s): L03.116 - Cellulitis of left lower limb Status: Acute Assessment and Plan: * suspected by increased erythema/warmth and pain * on antibiotic therapy * pain control * continues supportive therapy (4) Anemia: Qualifiers: Anemia type: due to chronic kidney disease Chronic kidney disease stage: stage 4 (severe) Qualified Code(s): N18.4 - Chronic kidney disease, stage 4 (severe); D63.1 - Anemia in chronic kidney disease Code(s): D64.9 - Anemia, unspecified Status: Acute Assessment and Plan: * issues noted since admission * PRBC transfusion per protocol * done on 11/19 * being done today (11/25) * partly related to underlying CKD * check anemia studies * start ERNA * r/o GI loss * follow trend of H/H (5) Hypertension: Qualifiers: Hypertension type: primary hypertension Qualified Code(s): I10 - Essential (primary) hypertension Code(s): I10 - Essential (primary) hypertension Status: Chronic Assessment and Plan: * reasonable control at this time * follow trend of hemodynamics (6) Diabetes mellitus with hyperglycemia: Qualifiers: Diabetes mellitus intermediate frame tender insulin use: with intermediate frame tender use Diabetes mellitus type: type 2 Qualified Code(s): E11.65 - Type 2 diabetes mellitus with hyperglycemia; 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 Thank you for allowing me to participate in the care this patient. History of Present Illness Reason for Consult Consult date: 11/26/23 Reason for consult: chronic renal failure Chief Complaint Chief complaint: CHF, UTI, Leg cellutlitis Review of Systems Review of Systems: As per HPI. [facility] Past Medical History Medical History Anxiety Bipolar 1 disorder BMI greater than 40 Chronic anemia Chronic kidney disease, stage 3 Baseline creatinine ranges between 1.2 and 1.50. Chronic obstructive pulmonary disease Depression Diabetic polyneuropathy Gastroesophageal reflux disease GI bleed (01/2010) Secondary to peptic ulcer. Heart failure with preserved ejection fraction CHF has been documented however echo in 08/2023 showed normal right and left ventricular size and systolic function with normal
--- NOTE | 2023-11-26 11:20 | PM.CNNEP ---
Assessment and Plan Assessment and plan (1) Stage 3b chronic kidney disease: Code(s): N18.32 - Chronic kidney disease, stage 3b Status: Chronic Assessment and Plan: creatinine seems to run ~ 1.5 - 1.8mg/dl due to HTN, DM, vascular disease and age follows with Dr. Montoya for management of CKD (2) Congestive heart failure: Qualifiers: Heart failure chronicity: acute on chronic Heart failure type: unspecified Qualified Code(s): I50.9 - Heart failure, unspecified Code(s): I50.9 - Heart failure, unspecified Status: Acute Assessment and Plan: as evidenced by increased LE edema and pulmonary vascular congestion (on CXR) on admission on diuretic therapy follow daily weights, I/Os, and clinical exam Cardiology recommendations noted follow renal function with ongoing therapy (3) Cellulitis of left leg: Code(s): L03.116 - Cellulitis of left lower limb Status: Acute Assessment and Plan: suspected by increased erythema/warmth and pain on antibiotic therapy pain control continues supportive therapy (4) Anemia: Qualifiers: Anemia type: due to chronic kidney disease Chronic kidney disease stage: stage 4 (severe) Qualified Code(s): N18.4 - Chronic kidney disease, stage 4 (severe); D63.1 - Anemia in chronic kidney disease Code(s): D64.9 - Anemia, unspecified Status: Acute Assessment and Plan: issues noted since admission PRBC transfusion per protocol done on 11/19 being done today (11/25) partly related to underlying CKD check anemia studies start ERNA r/o GI loss follow trend of H/H (5) Hypertension: Qualifiers: Hypertension type: primary hypertension Qualified Code(s): I10 - Essential (primary) hypertension Code(s): I10 - Essential (primary) hypertension Status: Chronic Assessment and Plan: reasonable control at this time follow trend of hemodynamics (6) Diabetes mellitus with hyperglycemia: Qualifiers: Diabetes mellitus nursing home insulin use: with medical terminologist use Diabetes mellitus type: type 2 Qualified Code(s): E11.65 - Type 2 diabetes mellitus with hyperglycemia; Z79.4 - FPC (current) use of insulin Code(s): E11.65 - Type 2 diabetes mellitus with hyperglycemia Status: Chronic Assessment and Plan: follow accu-cheks glycemic control per hospitalist I will continue follow patient with you while she remains in rehab and make further recommendations as deemed necessary. Thank you for allowing me to participate in the care this patient. History of Present Illness Reason for Consult Consult date: 11/26/23 Reason for consult: chronic renal failure Chief Complaint Chief complaint: CHF, UTI, Leg cellutlitis Review of Systems Review of Systems: As per HPI. [facility] Past Medical History Medical History Anxiety Bipolar 1 disorder BMI greater than 40 Chronic anemia Chronic kidney disease, stage 3 Baseline creatinine ranges between 1.2 and 1.50. Chronic obstructive pulmonary disease Depression Diabetic polyneuropathy Gastroesophageal reflux disease GI bleed (01/2010) Secondary to peptic ulcer. Heart failure with preserved ejection fraction CHF has been documented however echo in 08/2023 showed normal right and left ventricular size and systolic function with normal diastolic function. Hyperlipidemia Hypertension Hypothyroidism Impaired cognition Junctional rhythm Kidney stones Neuropathy Obstructive sleep apnea Patient does not use PAP therapy at nighttime. Osteoarthritis Parkinson disease Restless leg syndrome Type 2 diabetes mellitus Surgical History Surgical History History of bilateral knee arthroplasty History of hysterectomy History of sinus surgery Family History Family History (
--- NOTE | 2023-11-26 11:49 | P.PNIM_ITS ---
Progress Note: A&P Assessment and Plan (1) CHF (congestive heart failure): Qualifiers: Heart failure chronicity: acute on chronic Code(s): I50.9 - Heart failure, unspecified Status: Acute Assessment and Plan: She has evidence of volume overload with lower extremity edema and some pulmonary vascular congestion on chest x-ray however her proBNP is markedly lower than what she typically runs. Her most recent echo showed normal systolic and diastolic function. * Monitoring of volume status, renal function, and electrolytes. * Receiving PO Bumex and home metolazone. * elevate her legs as often as possible * daily weight, strict I&O * MANISH wrap BLE if VU hose not able to be applied * Low sodium diet * BNP 2750 on 11/22/23, patient given Bumex 1 mg ivp x1. * Cardiac consult, rec appreciated. * Patient had episode of chest pain overnight on 11/21/23, denies at present. Troponin trend: 0.028> 0.062> 0.075>0.059 (2) Cellulitis of left leg: Code(s): L03.116 - Cellulitis of left lower limb Status: Acute Assessment and Plan: The patient presented to the emergency department with multiple complaints including lower extremity swelling, pain, and redness and increased weakness. She has been afebrile since arrival with stable vital signs and her labs are all stable compared to baseline. Left leg appears cellulitic. * Patient receiving Meropenem 1 gm ivpb q 12 patient completed regimen yesterday. * Erythema and warmth are improving considerably. * Tylenol prn for pain, norco for severe pain * Robaxin 500 mg PO TID PRN. (3) Anemia: Qualifiers: Anemia type: due to chronic kidney disease Chronic kidney disease stage: stage 4 (severe) Qualified Code(s): N18.4 - Chronic kidney disease, stage 4 (severe); D63.1 - Anemia in chronic kidney disease Code(s): D64.9 - Anemia, unspecified Status: Acute Assessment and Plan: * Hemoglobin 6.9, Hematocrit 23.6 prior to transfusion. * Transfuse 1 unit of PRBC's on11/20/23. Post transfusion 7.8/26.6. Recheck at 2 pm was 7.5/24.8. * Hemoglobin today 7.0 and Hematocrit 23.6. Transfuse 1 unit of PRBC's. * Monitor labs and for signs of bleeding. * Nephrology consult, recs appreciated. (4) Chronic kidney disease: Code(s): N18.9 - Chronic kidney disease, unspecified Status: Acute Assessment and Plan: Her chronic kidney disease and anemia are stable review of previous labs. * BUN 36, Creatinine 1.9, and GFR 26 today. * Nephrology consult, recs appreciated. * Avoid nephrotoxins (5) Mari UTI: Code(s): B37.49 - Other urogenital candidiasis Status: Acute Assessment and Plan: Urinalysis is grossly abnormal and I suspect she has a urinary tract infection due to poor hygiene as she has significant intertrigo on exam. * Urine culture positive for Escherichia coli * WBC 7.4>14.1>10.2>10.2>10.8>9.7 * Meropenem 1 gm ivpb q 12 completed regimen yesterday. * Afebrile. (6) Left leg numbness: Code(s): R20.0 - Anesthesia of skin Status: Acute Assessment and Plan: Patient complains of left leg numbness and heaviness . She is able to move against resistance. She also reports left upper arm numbness. She reports a history of TIA. * CT head on arrival was negative for acute stroke * XR hip shows bilateral hip and sacroiliac osteoarthritis, no fracture * Suspect neuropathic in nature. Continue with gabapentin * Trial tapentadol 75 mg PO BID for neuropathy pain * Patient unable to tolerate and refusing MRI, patient reported shortness of
--- NOTE | 2023-11-26 11:49 | PM.IMPN ---
Progress Note: A&P Assessment and Plan (1) CHF (congestive heart failure): Qualifiers: Heart failure chronicity: acute on chronic Code(s): I50.9 - Heart failure, unspecified Status: Acute Assessment and Plan: She has evidence of volume overload with lower extremity edema and some pulmonary vascular congestion on chest x-ray however her proBNP is markedly lower than what she typically runs. Her most recent echo showed normal systolic and diastolic function. Monitoring of volume status, renal function, and electrolytes. Receiving PO Bumex and home metolazone. elevate her legs as often as possible daily weight, strict I&O MANISH wrap BLE if VU hose not able to be applied Low sodium diet BNP 2750 on 11/22/23, patient given Bumex 1 mg ivp x1. Cardiac consult, rec appreciated. Patient had episode of chest pain overnight on 11/21/23, denies at present. Troponin trend: 0.028> 0.062> 0.075>0.059 (2) Cellulitis of left leg: Code(s): L03.116 - Cellulitis of left lower limb Status: Acute Assessment and Plan: The patient presented to the emergency department with multiple complaints including lower extremity swelling, pain, and redness and increased weakness. She has been afebrile since arrival with stable vital signs and her labs are all stable compared to baseline. Left leg appears cellulitic. Patient receiving Meropenem 1 gm ivpb q 12 patient completed regimen yesterday. Erythema and warmth are improving considerably. Tylenol prn for pain, norco for severe pain Robaxin 500 mg PO TID PRN. (3) Anemia: Qualifiers: Anemia type: due to chronic kidney disease Chronic kidney disease stage: stage 4 (severe) Qualified Code(s): N18.4 - Chronic kidney disease, stage 4 (severe); D63.1 - Anemia in chronic kidney disease Code(s): D64.9 - Anemia, unspecified Status: Acute Assessment and Plan: Hemoglobin 6.9, Hematocrit 23.6 prior to transfusion. Transfuse 1 unit of PRBC's on11/20/23. Post transfusion 7.8/26.6. Recheck at 2 pm was 7.5/24.8. Hemoglobin today 7.0 and Hematocrit 23.6. Transfuse 1 unit of PRBC's. Monitor labs and for signs of bleeding. Nephrology consult, recs appreciated. (4) Chronic kidney disease: Code(s): N18.9 - Chronic kidney disease, unspecified Status: Acute Assessment and Plan: Her chronic kidney disease and anemia are stable review of previous labs. BUN 36, Creatinine 1.9, and GFR 26 today. Nephrology consult, recs appreciated. Avoid nephrotoxins (5) Mari UTI: Code(s): B37.49 - Other urogenital candidiasis Status: Acute Assessment and Plan: Urinalysis is grossly abnormal and I suspect she has a urinary tract infection due to poor hygiene as she has significant intertrigo on exam. Urine culture positive for Escherichia coli WBC 7.4>14.1>10.2>10.2>10.8>9.7 Meropenem 1 gm ivpb q 12 completed regimen yesterday. Afebrile. (6) Left leg numbness: Code(s): R20.0 - Anesthesia of skin Status: Acute Assessment and Plan: Patient complains of left leg numbness and heaviness . She is able to move against resistance. She also reports left upper arm numbness. She reports a history of TIA. CT head on arrival was negative for acute stroke XR hip shows bilateral hip and sacroiliac osteoarthritis, no fracture Suspect neuropathic in nature. Continue with gabapentin Trial tapentadol 75 mg PO BID for neuropathy pain Patient unable to tolerate and refusing MRI, patient reported shortness of breath when lying down even with oxygen on. (7) Intertrigo: Code(s): L30.4 - Erythema intertrigo Status: Acute Assessment and Plan: Wash the affected area daily and pat dry. Apply thin layer of Nystatin cream under breasts and apron. Plan This lady is chronically ill and with her recurrent admissions it seems like she is not able to care appropri
[2023-11-26 11:59] LABS: Glucose Point of Care 111 mg/dl (65-105)
[2023-11-26] MEDS: SODIUM CHLORIDE 0.9% IV 250 ML 30 ML IV CONT (13:29)
[2023-11-26] MEDS: rOPINIRole HCL 0.5 MG TABLET PO (20:07)
[2023-11-26 20:24] LABS: Glucose Point of Care 115 mg/dl (65-105)
[2023-11-27] VITALS (11 sets, daily range): BP systolic 127–177; BP diastolic 45–77; PULSE 55–120; RESP 16–20; TEMP 36.2–36.8; O2SAT 93–100
[2023-11-27] MEDS: LEVOTHYROXINE SODIUM 25 MCG TABLET PO (05:33)
[2023-11-27 06:22] LABS: Basophils Percent Auto 0.5 % (0.2-1.2); Eosinophils Absolute Auto 1.1 K/mm3 (0-0.3); Eosinophils Percent Auto 13.7 % (0-4.4); Hematocrit 25.7 % (37.0-47.0); Hemoglobin 7.9 g/dL (12.0-15.0); Immature Granulocyte Absolute 0.09 K/mm3 (0.00-0.031); Immature Granulocyte Percent A 1.1 % (0-0.5); Lymphocytes Absolute Auto 0.78 K/mm3 (0.9-3.2); Lymphocytes Percent Auto 9.7 % (18.3-44.2); Mean Corpuscular HGB Conc 30.7 g/dl (32-36); Mean Corpuscular Hemoglobin 30.2 pg (26-34); Mean Corpuscular Volume 98.1 fl (80-100); Mean Platelet Volume 12.4 fl (7.4-10.4); Monocytes Absolute Auto 0.8 K/mm3 (0.1-0.6); Monocytes Percent Auto 9.9 % (2.6-8.5); Neutrophils Absolute Auto 5.3 K/mm3 (1.3-6.7); Neutrophils Percent Auto 65.1 % (45.5-73.1); Platelet Count Result 181 k/mm3 (150-375); Red Blood Count 2.62 M/mm3 (4.2-5.4); Red Cell Distribution Width 17.9 % (11.5-14.5); White Blood Count 8.1 K/mm3 (4.5-10.0)
[2023-11-27 06:34] LABS: Albumin Level 3.6 g/dL (3.5-5.1); Alkaline Phosphatase 122 U/L (38-126); Anion Gap 4 mmol/L (4-12); Aspartate Amino Transferase 13 U/L (14-36); Bilirubin,Total 0.6 mg/dL (0.2-1.3); Blood Urea Nitrogen 36 mg/dL (7-17); Calcium 9.3 mg/dL (8.4-10.2); Carbon Dioxide 35 mmol/L (22-30); Chloride 96 mmol/L (98-107); Estimated CRCL calculation 36 ml/min; Estimated Glomerular Filt Rate 32; Glucose 106 mg/dL (65-110); Potassium 4.7 mmol/L (3.4-5.0); Sodium 135 mmol/L (137-145)
[2023-11-27 07:00] LABS: Alanine Aminotransferase < 6 U/L (6-35)
[2023-11-27 07:41] LABS: Glucose Point of Care 111 mg/dl (65-105)
[2023-11-27] MEDS: CARBIDOPA/LEVODOPA 25/100 MG TABLET 3 TABLET PO ×3 (08:40→17:18)
[2023-11-27] MEDS: ATORVASTATIN 40 MG TABLET 80 MG PO (08:41)
[2023-11-27] MEDS: allopurinoL 100 MG TABLET PO (08:41)
[2023-11-27] MEDS: MAGNESIUM OXIDE 400 MG TABLET PO (08:41)
[2023-11-27] MEDS: TAPENTADOL HCL 75 MG PO ×2 (08:41→17:18)
[2023-11-27] MEDS: APIXABAN 2.5 MG TABLET PO ×2 (08:41→17:18)
[2023-11-27] MEDS: LOSARTAN POTASSIUM 25 MG TABLET PO (08:42)
[2023-11-27] MEDS: BUMETANIDE 1 MG TABLET PO (08:42)
[2023-11-27] MEDS: PANTOPRAZOLE 40 MG TABLET PO (08:42)
[2023-11-27] MEDS: GABAPENTIN 300 MG CAPSULE PO ×3 (08:42→17:18)
--- NOTE | 2023-11-27 08:42 | PM.IMPN ---
Progress Note: A&P Assessment and Plan (1) CHF (congestive heart failure): Qualifiers: Heart failure chronicity: acute on chronic Code(s): I50.9 - Heart failure, unspecified Status: Acute Assessment and Plan: She has evidence of volume overload with lower extremity edema and some pulmonary vascular congestion on chest x-ray however her proBNP is markedly lower than what she typically runs. Her most recent echo showed normal systolic and diastolic function. Monitoring of volume status, renal function, and electrolytes. Receiving PO Bumex and home metolazone. elevate her legs as often as possible daily weight, strict I&O MANISH wrap BLE if VU hose not able to be applied Low sodium diet BNP 2750 on 11/22/23, patient given Bumex 1 mg ivp x1. Cardiac consult, rec appreciated. Patient had episode of chest pain overnight on 11/21/23, denies at present. Troponin trend: 0.028> 0.062> 0.075>0.059 Per cardiology, event was primarily an anxiety/panic attack where she had a bowel movement and was having difficulty getting to the toilet. I do not see any other clinical evidence that this was an acute cardiac event at this point. Cardiology no longer following. (2) Cellulitis of left leg: Code(s): L03.116 - Cellulitis of left lower limb Status: Acute Assessment and Plan: The patient presented to the emergency department with multiple complaints including lower extremity swelling, pain, and redness and increased weakness. She has been afebrile since arrival with stable vital signs and her labs are all stable compared to baseline. Left leg appears cellulitic. - Patient received Meropenem 1 gm ivpb q 12 patient completed regimen during admission. - Erythema and warmth have resolved - Tylenol prn for pain, norco for severe pain - Robaxin 500 mg PO TID PRN. (3) Anemia: Qualifiers: Anemia type: due to chronic kidney disease Chronic kidney disease stage: stage 4 (severe) Qualified Code(s): N18.4 - Chronic kidney disease, stage 4 (severe); D63.1 - Anemia in chronic kidney disease Code(s): D64.9 - Anemia, unspecified Status: Acute Assessment and Plan: Hemoglobin 6.9, Hematocrit 23.6 prior to transfusion. Transfuse 1 unit of PRBC's on 11/20/23. Post transfusion 7.8/26.6. Recheck at 2 pm was 7.5/24.8. Hemoglobin 11/25 7.0 and Hematocrit 23.6. Transfuse 1 unit of PRBC's. -H/H 7.9/25.7 on am labs - Monitor labs and for signs of bleeding. - Nephrology consult, recs appreciated. Start ERNA Anemia studies ordered (4) Chronic kidney disease: Code(s): N18.9 - Chronic kidney disease, unspecified Status: Acute Assessment and Plan: Her chronic kidney disease and anemia are stable review of previous labs. BUN 36, Creatinine 1.6, and GFR 32 today. Nephrology consult, recs appreciated. Avoid nephrotoxins (5) Acute UTI: Code(s): N39.0 - Urinary tract infection, site not specified Status: Acute Assessment and Plan: Urinalysis is grossly abnormal, suspect she has a urinary tract infection due to poor hygiene as she has significant intertrigo on exam. - UA: 1+ protein, positive nitrates, 1+ leukocytes, 21-50 WBC, 4+ bacteria - Urine culture positive for Escherichia coli ESBL - Meropenem 1 gm ivpb q 12 completed regimen during admission. (6) Left leg numbness: Code(s): R20.0 - Anesthesia of skin Status: Acute Assessment and Plan: Patient complains of left leg numbness and heaviness . She is able to move against resistance. She also reports left upper arm numbness. She reports a history of TIA. CT head on arrival was negative for acute stroke XR hip shows bilateral hip and sacroiliac osteoarthritis, no fracture Suspect neuropathic in nature. Continue with gabapentin Trial tapentadol 75 mg PO BID for neuropathy pain Patient unable to tolerate and refusing MRI, patient reported shortness of [place]
[2023-11-27] MEDS: [UNRECOGNIZED DRUG - OTHER] PO ×2 (08:46→20:10)
[2023-11-27] MEDS: OXCARBAZEPINE PO ×2 (08:46→20:10)
[2023-11-27] MEDS: MICONAZOLE NITRATE 2% CREAM 30 GM TUBE 1 APPLIC TOPICAL ×2 (08:49→20:15)
[2023-11-27] MEDS: methocarbamoL 500 MG TABLET PO ×3 (08:54→17:19)
[2023-11-27] MEDS: EPOETIN ALFA-EPBX 10,000 UNITS/ML VIAL 10000 UNITS SUB-Q (09:47)
[2023-11-27 11:46] LABS: Glucose Point of Care 114 mg/dl (65-105)
--- NOTE | 2023-11-27 13:05 | PM.PNNEP ---
Subjective Date/time seen: 11/27/23 13:05 Objective Data Vital Signs Vital Signs: Vital Signs Temp Pulse Resp BP Pulse Ox O2 Del Method O2 Flow Rate 11/27/23 12:00 98.2 F 57 L 20 127/67 100 11/27/23 08:00 93 Nasal Cannula 3 11/27/23 08:00 68 11/27/23 08:00 97.7 F 66 18 177/58 H 100 11/27/23 07:59 93 Nasal Cannula 3 11/27/23 04:00 55 L 11/27/23 00:00 61 11/26/23 20:00 55 L 11/27/23 04:45 98.3 F 59 L 20 140/77 99 11/27/23 00:35 98.1 F 55 L 16 133/45 L 100 11/26/23 20:00 100 Nasal Cannula 3 11/26/23 19:55 98.5 F 54 L 18 128/44 L 100 Intake/Output Intake/Output: Intake & Output 11/24/23 11/25/23 11/26/23 11/27/23 23:59 23:59 23:59 23:59 Intake Total 835 3876 1510 852 Output Total 350 0 Balance 485 3876 1510 852 Meds/Results Medications: Active Medications Generic Name Dose Route Start Last Admin Trade Name Freq PRN Reason Stop Dose Admin Acetaminophen 650 mg 11/17/23 17:52 11/26/23 00:25 Acetaminophen 325 Mg Tablet PO 650 mg Q4H PRN Administration Mild Pain (1-4) Or Fever Albuterol 2 puff 11/18/23 13:10 Albuterol Sulfate (*Sp) Aerosol 1 Puff INHALATION QID PRN Shortness Of Breath Or Wheezing Allopurinol 100 mg 11/19/23 09:00 11/27/23 08:41 Allopurinol 100 Mg Tablet PO 100 mg DAILY RAD[facility] Administration Alprazolam 1 mg 11/22/23 07:50 11/24/23 08:38 Alprazolam (*Crx) 0.5 Mg Tablet PO 1 mg BID PRN Administration Anxiety Apixaban 2.5 mg 11/18/23 17:00 11/27/23 08:41 Apixaban 2.5 Mg Tablet PO 2.5 mg BID [facility] Administration Atorvastatin Calcium 80 mg 11/19/23 09:00 11/27/23 08:41 Atorvastatin 40 Mg Tablet PO 80 mg DAILY [facility] Administration Bumetanide 1 mg 11/20/23 09:00 11/27/23 08:42 Bumetanide 1 Mg Tablet PO 1 mg DAILY [facility] Administration Carbidopa/Levodopa 3 tablet 11/18/23 13:15 11/27/23 12:03 Carbidopa/Levodopa 25/100 Mg Tablet PO 3 tablet TIDWM [facility] Administration Dextrose 12.5 gm 11/17/23 22:34 Dextrose 50% 25 Gm/50 Ml Syringe IV PUSH PRN PRN Hypoglycemia Protocol Epoetin Víctor-epbx 10,000 units 11/27/23 09:00 11/27/23 09:47 Epoetin Víctor-Epbx 10,000 Units/Ml Vial SUB-Q 10,000 units MOWEFR@09 [facility] Administration Gabapentin 300 mg 11/17/23 17:00 11/27/23 12:04 Gabapentin 300 Mg Capsule PO 300 mg TID [facility] Administration Glucagon 1 mg 11/17/23 22:34 Glucagon For Inj 1 Mg Vial IM PRN PRN Hypoglycemia Protocol Glucose 15 gm 11/17/23 22:34 Glucose Oral Gel 15 Gm Of Glucse In 37.5 Gm Tube PO PRN PRN Hypoglycemia Protocol Dextrose 1,000 mls @ 100 mls/hr 11/17/23 22:34 Dextrose 5% 1,000 Ml IVPB PRN PRN Hypoglycemia Protocol Insulin Aspart 1 - 3 units 11/18/23 21:00 11/26/23 20:08 Insulin Aspart (*Bkc) 100 Units/Ml SUB-Q Not Given HS [facility] Protocol Insulin Aspart 3 - 6 units 11/18/23 08:00 11/27/23 17:15 Insulin Aspart (*Bkc) 100 Units/Ml SUB-Q Not Given TIDWM [facility] Protocol Levothyroxine Sodium 25 mcg 11/19/23 06:30 11/27/23 05:33 Levothyroxine Sodium 25 Mcg Tablet PO 25 mcg DAILY@0630 RAD[facility] Administration Losartan Potassium 25 mg 11/19/23 09:00 11/27/23 08:42 Losartan Potassium 25 Mg Tablet PO 25 mg DAILY RAD[facility] Administration Magnesium Oxide 400 mg 11/19/23 10:20 11/27/23 08:41 Magnesium Oxide 400 Mg Tablet PO 400 mg DAILY [facility] Administration Methocarbamol 500 mg 11/24/23 16:30 11/27/23 12:08 Methocarbamol 500 Mg Tablet PO 500 mg TID PRN Administration Muscle/Joint Pain Metolazone 2.5 mg 11/18/23 13:15 Metolazone 2.5 Mg Tablet PO MoTh@0900 [facility] Miconazole Nitrate 1 applic 11/25/23 10:20 11/27/23 08:49 Miconazole Nitrate 2% Cream 30 Gm Tube TOPICAL 1 applic Q12HR [facility] Administration Nonformulary Drug- 0 ea
[2023-11-27 16:21] LABS: Glucose Point of Care 144 mg/dl (65-105)
[2023-11-27] MEDS: rOPINIRole HCL 0.5 MG TABLET PO (20:08)
[2023-11-27] MEDS: ACETAMINOPHEN 325 MG TABLET 650 MG PO (20:13)
[2023-11-27] MEDS: ALPRAZolam (*CRX) 0.5 MG TABLET 1 MG PO (20:19)
[2023-11-27 20:30] LABS: Glucose Point of Care 152 mg/dl (65-105)
[2023-11-28] VITALS (8 sets, daily range): BP systolic 132–158; BP diastolic 57–62; PULSE 47–86; RESP 14–18; TEMP 35.9–37.1; O2SAT 91–100
[2023-11-28] MEDS: ACETAMINOPHEN 325 MG TABLET 650 MG PO ×3 (00:32→20:16)
[2023-11-28] MEDS: LEVOTHYROXINE SODIUM 25 MCG TABLET PO (05:38)
[2023-11-28 06:23] LABS: Basophils Absolute Auto 0.1 K/mm3 (0.0-0.1); Basophils Percent Auto 0.8 % (0.2-1.2); Eosinophils Absolute Auto 0.9 K/mm3 (0-0.3); Hematocrit 26.4 % (37.0-47.0); Hemoglobin 7.9 g/dL (12.0-15.0); Immature Granulocyte Absolute 0.07 K/mm3 (0.00-0.031); Lymphocytes Percent Auto 14.2 % (18.3-44.2); Mean Corpuscular HGB Conc 29.9 g/dl (32-36); Mean Corpuscular Hemoglobin 29.4 pg (26-34); Mean Corpuscular Volume 98.1 fl (80-100); Mean Platelet Volume 11.4 fl (7.4-10.4); Monocytes Absolute Auto 0.9 K/mm3 (0.1-0.6); Monocytes Percent Auto 12.7 % (2.6-8.5); Neutrophils Absolute Auto 4.1 K/mm3 (1.3-6.7); Neutrophils Percent Auto 58.3 % (45.5-73.1); Platelet Count Result 172 k/mm3 (150-375); Red Blood Count 2.69 M/mm3 (4.2-5.4); Red Cell Distribution Width 17.4 % (11.5-14.5); White Blood Count 7.1 K/mm3 (4.5-10.0)
[2023-11-28 06:35] LABS: Albumin Level 3.5 g/dL (3.5-5.1); Alkaline Phosphatase 119 U/L (38-126); Anion Gap 3 mmol/L (4-12); Aspartate Amino Transferase 14 U/L (14-36); Bilirubin,Total 0.6 mg/dL (0.2-1.3); Blood Urea Nitrogen 34 mg/dL (7-17); Calcium 9.2 mg/dL (8.4-10.2); Carbon Dioxide 38 mmol/L (22-30); Chloride 95 mmol/L (98-107); Estimated CRCL calculation 44 ml/min; Estimated Glomerular Filt Rate 40; Glucose 101 mg/dL (65-110); Potassium 4.5 mmol/L (3.4-5.0); Sodium 136 mmol/L (137-145)
[2023-11-28 06:44] LABS: Alanine Aminotransferase < 6 U/L (6-35)
[2023-11-28] MEDS: methocarbamoL 500 MG TABLET PO ×2 (06:56→20:17)
[2023-11-28 07:29] LABS: Anisocytosis 1+; Hypochromasia 1+; Platelet Estimate Adequate (Adequate); Schistocytes None Seen; Stomatocytes 1+
[2023-11-28] MEDS: PANTOPRAZOLE 40 MG TABLET PO (09:13)
[2023-11-28] MEDS: CARBIDOPA/LEVODOPA 25/100 MG TABLET 3 TABLET PO ×3 (09:13→16:29)
[2023-11-28] MEDS: BUMETANIDE 1 MG TABLET PO (09:13)
[2023-11-28] MEDS: ATORVASTATIN 40 MG TABLET 80 MG PO (09:13)
[2023-11-28] MEDS: polyethylene glycoL 3350 17 GM POWD.PACK PO (09:13)
[2023-11-28] MEDS: OXCARBAZEPINE PO ×2 (09:14→20:15)
[2023-11-28] MEDS: APIXABAN 2.5 MG TABLET PO ×2 (09:14→16:29)
[2023-11-28] MEDS: [UNRECOGNIZED DRUG - OTHER] PO ×2 (09:14→20:15)
[2023-11-28] MEDS: MAGNESIUM OXIDE 400 MG TABLET PO (09:14)
[2023-11-28] MEDS: LOSARTAN POTASSIUM 25 MG TABLET PO (09:14)
[2023-11-28] MEDS: TAPENTADOL HCL 75 MG PO ×2 (09:14→16:29)
[2023-11-28] MEDS: GABAPENTIN 300 MG CAPSULE PO ×2 (09:14→16:25)
[2023-11-28] MEDS: allopurinoL 100 MG TABLET PO (09:14)
[2023-11-28 11:31] LABS: Glucose Point of Care 168 mg/dl (65-105)
[2023-11-28 11:31] LABS: Glucose Point of Care 79 mg/dl (65-105)
[2023-11-28] MEDS: ALPRAZolam (*CRX) 0.5 MG TABLET 1 MG PO ×2 (11:44→16:24)
--- NOTE | 2023-11-28 13:31 | PM.PNNEP ---
Subjective Date/time seen: 11/28/23 13:31 Interval history: Follow-up for chronic kidney disease. No apparent distress voiced at the time of my visit; renal function/creatinine stable if not better than baseline; major complaint is that of difficulty ambulating/walking in general; breathing/respiratory status is better if no stable as well; no other issues/events overnight or earlier this morning. Objective Data Vital Signs Vital Signs: Vital Signs Temp Pulse Resp BP Pulse Ox O2 Del Method O2 Flow Rate 11/28/23 12:00 97.3 F L 54 L 18 158/57 H 100 11/28/23 11:06 95 Nasal Cannula 3 11/28/23 08:00 97.5 F L 56 L 18 140/58 L 100 11/28/23 04:00 97.7 F 61 16 141/57 H 100 11/28/23 04:00 47 L 11/28/23 00:00 50 L 11/27/23 20:00 55 L 11/27/23 23:58 97.3 F L 64 16 148/54 H 100 11/27/23 20:00 97.8 F 66 18 147/64 H 100 Intake/Output Intake/Output: Intake & Output 11/25/23 11/26/23 11/27/23 11/28/23 23:59 23:59 23:59 23:59 Intake Total 3876 1510 1092 2094 Output Total 0 1 Balance 3876 1510 1092 2093 Meds/Results Medications: Active Medications Generic Name Dose Route Start Last Admin Trade Name Freq PRN Reason Stop Dose Admin Acetaminophen 650 mg 11/17/23 17:52 11/28/23 16:24 Acetaminophen 325 Mg Tablet PO 650 mg Q4H PRN Administration Mild Pain (1-4) Or Fever Albuterol 2 puff 11/18/23 13:10 Albuterol Sulfate (*Sp) Aerosol 1 Puff INHALATION QID PRN Shortness Of Breath Or Wheezing Allopurinol 100 mg 11/19/23 09:00 11/28/23 09:14 Allopurinol 100 Mg Tablet PO 100 mg DAILY RADHA Administration Alprazolam 1 mg 11/28/23 15:23 11/28/23 16:24 Alprazolam (*Crx) 0.5 Mg Tablet PO 1 mg TID PRN Administration Anxiety Apixaban 2.5 mg 11/18/23 17:00 11/28/23 16:29 Apixaban 2.5 Mg Tablet PO 2.5 mg BID RAD[facility] Administration Atorvastatin Calcium 80 mg 11/19/23 09:00 11/28/23 09:13 Atorvastatin 40 Mg Tablet PO 80 mg DAILY RAD[facility] Administration Bumetanide 1 mg 11/20/23 09:00 11/28/23 09:13 Bumetanide 1 Mg Tablet PO 1 mg DAILY RAD[facility] Administration Carbidopa/Levodopa 3 tablet 11/18/23 13:15 11/28/23 16:29 Carbidopa/Levodopa 25/100 Mg Tablet PO 3 tablet TIDWM [facility] Administration Dextrose 12.5 gm 11/17/23 22:34 Dextrose 50% 25 Gm/50 Ml Syringe IV PUSH PRN PRN Hypoglycemia Protocol Epoetin Víctor-epbx 10,000 units 11/27/23 09:00 11/27/23 09:47 Epoetin Víctor-Epbx 10,000 Units/Ml Vial SUB-Q 10,000 units MOWEFR@09 [facility] Administration Gabapentin 300 mg 11/17/23 17:00 11/28/23 17:35 Gabapentin 300 Mg Capsule PO Not Given TID RADHA Glucagon 1 mg 11/17/23 22:34 Glucagon For Inj 1 Mg Vial IM PRN PRN Hypoglycemia Protocol Glucose 15 gm 11/17/23 22:34 Glucose Oral Gel 15 Gm Of Glucse In 37.5 Gm Tube PO PRN PRN Hypoglycemia Protocol Dextrose 1,000 mls @ 100 mls/hr 11/17/23 22:34 Dextrose 5% 1,000 Ml IVPB PRN PRN Hypoglycemia Protocol Insulin Aspart 1 - 3 units 11/18/23 21:00 11/27/23 20:09 Insulin Aspart (*Bkc) 100 Units/Ml SUB-Q Not Given HS [facility] Protocol Insulin Aspart 3 - 6 units 11/18/23 08:00 11/28/23 17:37 Insulin Aspart (*Bkc) 100 Units/Ml SUB-Q Not Given TIDWM [facility] Protocol Levothyroxine Sodium 25 mcg 11/19/23 06:30 11/28/23 05:38 Levothyroxine Sodium 25 Mcg Tablet PO 25 mcg DAILY@0630 [facility] Administration Losartan Potassium 25 mg 11/19/23 09:00 11/28/23 09:14 Losartan Potassium 25 Mg Tablet PO 25 mg DAILY RAD[facility] Administration Magnesium Oxide 400 mg 11/19/23 10:20 11/28/23 09:14 Magnesium Oxide 400 Mg Tablet PO 400 mg DAILY RAD[facility] Administration Methocarbamol 500 mg 11/24/23 16:30 11/28/23 06:56 Methocarbamol 500 Mg Tablet PO 500 mg TID PRN Administration Muscle/Joint Pain Metolazone 2.5
--- NOTE | 2023-11-28 14:15 | PM.IMPN ---
Progress Note: A&P Assessment and Plan (1) CHF (congestive heart failure): Qualifiers: Heart failure chronicity: acute on chronic Code(s): I50.9 - Heart failure, unspecified Status: Acute Assessment and Plan: She has evidence of volume overload with lower extremity edema and some pulmonary vascular congestion on chest x-ray however her proBNP is markedly lower than what she typically runs. Her most recent echo showed normal systolic and diastolic function. Monitoring of volume status, renal function, and electrolytes. Receiving PO Bumex and home metolazone. elevate her legs as often as possible daily weight, strict I&O MANISH wrap BLE if VU hose not able to be applied Low sodium diet BNP 2750 on 11/22/23, patient given Bumex 1 mg ivp x1. Cardiac consult, rec appreciated. Patient had episode of chest pain overnight on 11/21/23, denies at present. Troponin trend: 0.028> 0.062> 0.075>0.059 Per cardiology, event was primarily an anxiety/panic attack where she had a bowel movement and was having difficulty getting to the toilet. I do not see any other clinical evidence that this was an acute cardiac event at this point. Cardiology no longer following. (2) Cellulitis of left leg: Code(s): L03.116 - Cellulitis of left lower limb Status: Acute Assessment and Plan: The patient presented to the emergency department with multiple complaints including lower extremity swelling, pain, and redness and increased weakness. She has been afebrile since arrival with stable vital signs and her labs are all stable compared to baseline. Left leg appears cellulitic. - Patient received Meropenem 1 gm ivpb q 12 patient completed regimen during admission. - Erythema and warmth have resolved - Tylenol prn for pain, norco for severe pain - Robaxin 500 mg PO TID PRN. (3) Anemia: Qualifiers: Anemia type: due to chronic kidney disease Chronic kidney disease stage: stage 4 (severe) Qualified Code(s): N18.4 - Chronic kidney disease, stage 4 (severe); D63.1 - Anemia in chronic kidney disease Code(s): D64.9 - Anemia, unspecified Status: Acute Assessment and Plan: Hemoglobin 6.9, Hematocrit 23.6 prior to transfusion. Transfuse 1 unit of PRBC's on 11/20/23. Post transfusion 7.8/26.6. Recheck at 2 pm was 7.5/24.8. Hemoglobin 11/25 7.0 and Hematocrit 23.6. Transfuse 1 unit of PRBC's. -H/H 7.9/25.7 on am labs - Monitor labs and for signs of bleeding. - Nephrology consult, recs appreciated. Start ERNA Anemia studies ordered (4) Chronic kidney disease: Code(s): N18.9 - Chronic kidney disease, unspecified Status: Acute Assessment and Plan: Her chronic kidney disease and anemia are stable review of previous labs. BUN 34, Creatinine 1.3, and GFR 40 today. Nephrology consult, recs appreciated. Avoid nephrotoxins (5) Acute UTI: Code(s): N39.0 - Urinary tract infection, site not specified Status: Acute Assessment and Plan: Urinalysis is grossly abnormal, suspect she has a urinary tract infection due to poor hygiene as she has significant intertrigo on exam. - UA: 1+ protein, positive nitrates, 1+ leukocytes, 21-50 WBC, 4+ bacteria - Urine culture positive for Escherichia coli ESBL - Meropenem 1 gm ivpb q 12 completed regimen during admission. Patient denies any urinary symptoms including hematuria, dysuria and burning sensation. (6) Left leg numbness: Code(s): R20.0 - Anesthesia of skin Status: Acute Assessment and Plan: Patient complains of left leg numbness and heaviness . She is able to move against resistance. She also reports left upper arm numbness. She reports a history of TIA. CT head on arrival was negative for acute stroke XR hip shows bilateral hip and sacroiliac osteoarthritis, no fracture Suspect neuropathic in nature. Continue with gabapentin Trial tapentadol 75 mg PO BID for neurop
[2023-11-28] MEDS: MICONAZOLE NITRATE 2% CREAM 30 GM TUBE 1 APPLIC TOPICAL ×2 (16:29→20:14)
[2023-11-28 19:54] LABS: Glucose Point of Care 128 mg/dl (65-105)
[2023-11-28] MEDS: rOPINIRole HCL 0.5 MG TABLET PO (20:15)
[2023-11-29] MEDS: methocarbamoL 500 MG TABLET PO ×2 (02:35→10:07)
[2023-11-29 04:00] VITALS: BP 137/67; PULSE 61; RESP 16; TEMP 35.9; O2SAT 100
[2023-11-29] MEDS: LEVOTHYROXINE SODIUM 25 MCG TABLET PO (05:47)
[2023-11-29 06:24] LABS: Hematocrit 26.3 % (37.0-47.0); Mean Corpuscular HGB Conc 30.4 g/dl (32-36); Mean Corpuscular Hemoglobin 29.9 pg (26-34); Mean Corpuscular Volume 98.1 fl (80-100); Mean Platelet Volume 12.9 fl (7.4-10.4); Platelet Count Result 186 k/mm3 (150-375); Red Blood Count 2.68 M/mm3 (4.2-5.4); White Blood Count 10.6 K/mm3 (4.5-10.0)
[2023-11-29 06:36] LABS: Albumin Level 3.5 g/dL (3.5-5.1); Anion Gap 3 mmol/L (4-12); Blood Urea Nitrogen 29 mg/dL (7-17); Calcium 9.3 mg/dL (8.4-10.2); Carbon Dioxide 37 mmol/L (22-30); Chloride 96 mmol/L (98-107); Estimated CRCL calculation 51 ml/min; Estimated Glomerular Filt Rate 49; Glucose 99 mg/dL (65-110); Phosphorus 4.1 mg/dL (2.5-4.5); Potassium 4.4 mmol/L (3.4-5.0); Sodium 136 mmol/L (137-145)
[2023-11-29 07:56] LABS: Glucose Point of Care 98 mg/dl (65-105)
[2023-11-29 08:00] VITALS: BP 149/57; PULSE 54; RESP 16; TEMP 36.5; O2SAT 100
[2023-11-29 08:32] VITALS: O2SAT 99
--- NOTE | 2023-11-29 09:51 | P.PNIM_ITS ---
Progress Note: A&P Assessment and Plan (1) CHF (congestive heart failure): Qualifiers: Heart failure chronicity: acute on chronic Code(s): I50.9 - Heart failure, unspecified Status: Acute Assessment and Plan: She has evidence of volume overload with lower extremity edema and some pulmonary vascular congestion on chest x-ray however her proBNP is markedly lower than what she typically runs. Her most recent echo showed normal systolic and diastolic function. * Monitoring of volume status, renal function, and electrolytes. * Receiving PO Bumex and home metolazone. * elevate her legs as often as possible * daily weight, strict I&O * MANISH wrap BLE if VU hose not able to be applied * Low sodium diet * BNP 2750 on 11/22/23, patient given Bumex 1 mg ivp x1. * Cardiac consult, rec appreciated. Patient had episode of chest pain overnight on 11/21/23, denies at present. Troponin trend: 0.028> 0.062> 0.075>0.059 Per cardiology, event was primarily an anxiety/panic attack where she had a bowel movement and was having difficulty getting to the toilet. I do not see any other clinical evidence that this was an acute cardiac event at this point. Cardiology no longer following. (2) Cellulitis of left leg: Code(s): L03.116 - Cellulitis of left lower limb Status: Acute Assessment and Plan: The patient presented to the emergency department with multiple complaints including lower extremity swelling, pain, and redness and increased weakness. She has been afebrile since arrival with stable vital signs and her labs are all stable compared to baseline. Left leg appears cellulitic. - Patient received Meropenem 1 gm ivpb q 12 patient completed regimen during admission. - Erythema and warmth have resolved - Tylenol prn for pain, norco for severe pain - Robaxin 500 mg PO TID PRN. (3) Anemia: Qualifiers: Anemia type: due to chronic kidney disease Chronic kidney disease stage: stage 4 (severe) Qualified Code(s): N18.4 - Chronic kidney disease, stage 4 (severe); D63.1 - Anemia in chronic kidney disease Code(s): D64.9 - Anemia, unspecified Status: Acute Assessment and Plan: Hemoglobin 6.9, Hematocrit 23.6 prior to transfusion. Transfuse 1 unit of PRBC's on 11/20/23. Post transfusion 7.8/26.6. Recheck at 2 pm was 7.5/24.8. Hemoglobin 11/25 7.0 and Hematocrit 23.6. Transfuse 1 unit of PRBC's. -H/H 7.9/25.7 on am labs - Monitor labs and for signs of bleeding. - Nephrology consult, recs appreciated. Start ERNA Anemia studies ordered (4) Chronic kidney disease: Code(s): N18.9 - Chronic kidney disease, unspecified Status: Acute Assessment and Plan: Her chronic kidney disease and anemia are stable review of previous labs. * BUN 34, Creatinine 1.3, and GFR 40 today. * Nephrology consult, recs appreciated. * Avoid nephrotoxins (5) Acute UTI: Code(s): N39.0 - Urinary tract infection, site not specified Status: Acute Assessment and Plan: Urinalysis is grossly abnormal, suspect she has a urinary tract infection due to poor hygiene as she has significant intertrigo on exam. - UA: 1+ protein, positive nitrates, 1+ leukocytes, 21-50 WBC, 4+ bacteria - Urine culture positive for Escherichia coli ESBL - Meropenem 1 gm ivpb q 12 completed regimen during admission. Patient denies any urinary symptoms including hematuria, dysuria and burning sensation. (6) Left leg numbness: Code(s): R20.0 - Anesthesia of skin Status: Acute Assessment and Plan: Patient complains of
--- NOTE | 2023-11-29 09:54 | PCPTNOTE ---
Patient declined PT at this time stating she is having a bad day and waiting for pain medication. Patient reports that she is very upset because her is sick and in the hospital. PT will continue to follow.
[2023-11-29] MEDS: TAPENTADOL HCL 75 MG PO (10:06)
[2023-11-29] MEDS: PANTOPRAZOLE 40 MG TABLET PO (10:06)
[2023-11-29] MEDS: APIXABAN 2.5 MG TABLET PO (10:06)
[2023-11-29] MEDS: ATORVASTATIN 40 MG TABLET 80 MG PO (10:06)
[2023-11-29] MEDS: GABAPENTIN 300 MG CAPSULE PO ×2 (10:06→12:30)
[2023-11-29] MEDS: LOSARTAN POTASSIUM 25 MG TABLET PO (10:06)
[2023-11-29 10:07] VITALS: O2SAT 99
[2023-11-29] MEDS: BUMETANIDE 1 MG TABLET PO (10:07)
[2023-11-29] MEDS: allopurinoL 100 MG TABLET PO (10:07)
[2023-11-29] MEDS: MAGNESIUM OXIDE 400 MG TABLET PO (10:07)
[2023-11-29] MEDS: CARBIDOPA/LEVODOPA 25/100 MG TABLET 3 TABLET PO ×2 (10:07→12:30)
[2023-11-29] MEDS: MICONAZOLE NITRATE 2% CREAM 30 GM TUBE 1 APPLIC TOPICAL (10:07)
[2023-11-29] MEDS: EPOETIN ALFA-EPBX 10,000 UNITS/ML VIAL 10000 UNITS SUB-Q (10:16)
[2023-11-29] MEDS: OXCARBAZEPINE PO (10:27)
[2023-11-29] MEDS: [UNRECOGNIZED DRUG - OTHER] PO (10:27)
--- NOTE | 2023-11-29 11:26 | PM.PNNEP ---
Subjective Date/time seen: 11/29/23 11:26 Objective Data Vital Signs Vital Signs: Vital Signs Temp Pulse Resp BP Pulse Ox O2 Del Method O2 Flow Rate 11/29/23 08:00 97.7 F 54 L 16 149/57 H 100 11/29/23 08:32 99 Nasal Cannula 3 11/29/23 04:00 96.6 F L 61 16 137/67 100 11/28/23 23:59 96.7 F L 77 16 135/62 99 11/28/23 20:00 96.6 F L 63 14 132/60 91 11/28/23 16:00 98.7 F 86 16 142/62 H 100 Intake/Output Intake/Output: Intake & Output 11/26/23 11/27/23 11/28/23 11/29/23 23:59 23:59 23:59 23:59 Intake Total 1510 1092 2334 540 Output Total 1 350 Balance 1510 1092 2333 190 Meds/Results Medications: Active Medications Generic Name Dose Route Start Last Admin Trade Name Freq PRN Reason Stop Dose Admin Acetaminophen 650 mg 11/17/23 17:52 11/28/23 20:16 Acetaminophen 325 Mg Tablet PO 650 mg Q4H PRN Administration Mild Pain (1-4) Or Fever Albuterol 2 puff 11/18/23 13:10 Albuterol Sulfate (*Sp) Aerosol 1 Puff INHALATION QID PRN Shortness Of Breath Or Wheezing Allopurinol 100 mg 11/19/23 09:00 11/29/23 10:07 Allopurinol 100 Mg Tablet PO 100 mg DAILY RADHA Administration Alprazolam 1 mg 11/28/23 15:23 11/29/23 12:29 Alprazolam (*Crx) 0.5 Mg Tablet PO 1 mg TID PRN Administration Anxiety Apixaban 2.5 mg 11/18/23 17:00 11/29/23 10:06 Apixaban 2.5 Mg Tablet PO 2.5 mg BID RADHA Administration Atorvastatin Calcium 80 mg 11/19/23 09:00 11/29/23 10:06 Atorvastatin 40 Mg Tablet PO 80 mg DAILY RAD[facility] Administration Bumetanide 1 mg 11/20/23 09:00 11/29/23 10:07 Bumetanide 1 Mg Tablet PO 1 mg DAILY RAD[facility] Administration Carbidopa/Levodopa 3 tablet 11/18/23 13:15 11/29/23 12:30 Carbidopa/Levodopa 25/100 Mg Tablet PO 3 tablet TIDWM [facility] Administration Dextrose 12.5 gm 11/17/23 22:34 Dextrose 50% 25 Gm/50 Ml Syringe IV PUSH PRN PRN Hypoglycemia Protocol Epoetin Víctor-epbx 10,000 units 11/27/23 09:00 11/29/23 10:16 Epoetin Víctor-Epbx 10,000 Units/Ml Vial SUB-Q 10,000 units MOWEFR@09 RAD[facility] Administration Gabapentin 300 mg 11/17/23 17:00 11/29/23 12:30 Gabapentin 300 Mg Capsule PO 300 mg TID [facility] Administration Glucagon 1 mg 11/17/23 22:34 Glucagon For Inj 1 Mg Vial IM PRN PRN Hypoglycemia Protocol Glucose 15 gm 11/17/23 22:34 Glucose Oral Gel 15 Gm Of Glucse In 37.5 Gm Tube PO PRN PRN Hypoglycemia Protocol Dextrose 1,000 mls @ 100 mls/hr 11/17/23 22:34 Dextrose 5% 1,000 Ml IVPB PRN PRN Hypoglycemia Protocol Insulin Aspart 1 - 3 units 11/18/23 21:00 11/28/23 20:13 Insulin Aspart (*Bkc) 100 Units/Ml SUB-Q Not Given HS [facility] Protocol Insulin Aspart 3 - 6 units 11/18/23 08:00 11/29/23 11:50 Insulin Aspart (*Bkc) 100 Units/Ml SUB-Q Not Given TIDWM [facility] Protocol Levothyroxine Sodium 25 mcg 11/19/23 06:30 11/29/23 05:47 Levothyroxine Sodium 25 Mcg Tablet PO 25 mcg DAILY@0630 [facility] Administration Losartan Potassium 25 mg 11/19/23 09:00 11/29/23 10:06 Losartan Potassium 25 Mg Tablet PO 25 mg DAILY [facility] Administration Magnesium Oxide 400 mg 11/19/23 10:20 11/29/23 10:07 Magnesium Oxide 400 Mg Tablet PO 400 mg DAILY [facility] Administration Methocarbamol 500 mg 11/24/23 16:30 11/29/23 10:07 Methocarbamol 500 Mg Tablet PO 500 mg TID PRN Administration Muscle/Joint Pain Metolazone 2.5 mg 11/18/23 13:15 Metolazone 2.5 Mg Tablet PO MoTh@0900 [facility] Miconazole Nitrate 1 applic 11/25/23 10:20 11/29/23 10:07 Miconazole Nitrate 2% Cream 30 Gm Tube TOPICAL 1 applic Q12HR [facility] Administration Nonformulary Drug- 0 each 11/19/23 09:05 11/29/23 10:27 Oxcarbazepine 75 Mg PO 12/19/23 09:04 75 each Q12HR [facility] Administration Ondansetron HCl 4 mg 11/17/23 13:19 Ondansetron Inj 4 Mg/2 Ml Vial IV PUSH
[2023-11-29 11:29] LABS: Glucose Point of Care 113 mg/dl (65-105)
[2023-11-29 12:00] VITALS: BP 131/45; PULSE 50; RESP 16; TEMP 36.4; O2SAT 98
[2023-11-29] MEDS: ALPRAZolam (*CRX) 0.5 MG TABLET 1 MG PO ×2 (12:29→15:25)
--- NOTE | 2023-11-29 13:34 | PM.DS ---
DS: Admitting Diagnosis Discharge Date 11/29/2023 Admitting Diagnosis Congestive heart failure cellulitis of left leg anemia chronic kidney disease acute UTI left leg numbness intertrigo DS: Discharge Diagnosis Discharge Diagnosis (1) CHF (congestive heart failure): Qualifiers: Heart failure chronicity: acute on chronic Code(s): I50.9 - Heart failure, unspecified Status: Acute (2) Cellulitis of left leg: Code(s): L03.116 - Cellulitis of left lower limb Status: Acute (3) Anemia: Qualifiers: Anemia type: due to chronic kidney disease Chronic kidney disease stage: stage 4 (severe) Qualified Code(s): N18.4 - Chronic kidney disease, stage 4 (severe); D63.1 - Anemia in chronic kidney disease Code(s): D64.9 - Anemia, unspecified Status: Acute (4) Chronic kidney disease: Code(s): N18.9 - Chronic kidney disease, unspecified Status: Acute (5) Acute UTI: Code(s): N39.0 - Urinary tract infection, site not specified Status: Acute (6) Left leg numbness: Code(s): R20.0 - Anesthesia of skin Status: Acute (7) Intertrigo: Code(s): L30.4 - Erythema intertrigo Status: Acute DS: Summary Hospital Course Reason for hospitalization: Congestive heart failure cellulitis of left leg anemia chronic kidney disease acute UTI left leg numbness intertrigo Hospital Course: Chronically ill 73-year-old female with Parkinson's disease, hypertension, hyperlipidemia, congestive heart failure however most recent echocardiogram showed normal right and left systolic function and normal diastolic dysfunction, type 2 diabetes mellitus, hypothyroidism, obstructive sleep apnea- non compliant with treatment, chronic kidney disease, chronic anemia, chronic obstructive pulmonary disease, gastroesophageal reflux disease, peptic ulcers, depression, and anxiety who presented to the emergency department via EMS from home with multiple complaints including lower extremity swelling, pain, and redness and increased weakness. She has been afebrile since arrival with stable vital signs. Patient required two blood transfusions during this admission on 11/19 and 11/25. There was no signs of active bleeding and following the second blood transfusion her H/H remained stable. Patient was started on ERNA by nephrology, who recommends follow up with hematology at discharge. Discussed this with patient who states understanding and hematology information given. A UA was concerning for infection on admission and culture grew Ecoli with ESBL resistance. Patient completed antibiotic course during admission.Head CT with no acute intracranial process. She had evidence of volume overload with lower extremity edema however her proBNP was markedly lower than what she typically runs. Her most recent echo showed normal systolic and diastolic function. Chest XR from 11/16 showed likely congestive heart failure with cardiomegaly, pulmonary vascular congestion and minimal pulmonary edema. She remained on her home oxygen supplementation and received her PO bumex and metolazone. Repeat chest XR on 11/21 showed minimal interstitial edema. Her left leg appeared cellulitic for which she received IV antibiotics for and this resolved. Venous Doppler negative. Hip/pelvis XR showed mild bilateral hip and SI osteoarthritis with no acute osseous abnormality. Cardiology was consulted for chest pain overnight on 11/20. Per cardiology event was primarily an anxiety/panic attack where she had a bowel movement and was having difficulty getting to the toilet. They did not see any other clinical evidence that this was an acute cardiac event and signed off. Patient had no other episodes of chest pain throughout admission. Cardiology strongly recommended patient use a CPAP machine for her sleep apnea which was further encouraged by the hospitalist team. Patient stated understanding and plans to follow up wi
[2023-11-29 16:00] VITALS: BP 149/57; PULSE 59; RESP 16; TEMP 36.5; O2SAT 100
[2023-11-29 16:52] LABS: Glucose Point of Care 90 mg/dl (65-105)
== END 2023-11-29 17:10 | disposition home health service (06) | DRG 602 ==
LOC: ANHED 10:27 → ANH2MED 14:15 → ANH3MEDSUR 11-18 23:46
PROVIDERS: General Practice; Internal Medicine Nephrology; Nurse Practitioner Acute Care; Nurse Practitioner Family; Admitting Provider Internal Medicine; Emergency Provider General Practice; Visit Provider Student in an Organized Health Care Education/Training Program
DX: L03.116 Cellulitis of left lower limb (principal); I50.33 Acute on chronic diastolic (congestive) heart failure; N39.0 Urinary tract infection, site not specified; I13.0 Hypertensive heart and chronic kidney disease with heart failure and stage 1 through stage 4 chronic kidney disease, or unspecified chronic kidney disease; N18.4 Chronic kidney disease, stage 4 (severe); J96.10 Chronic respiratory failure, unspecified whether with hypoxia or hypercapnia; Z68.42 Body mass index [BMI] 45.0-49.9, adult; E11.22 Type 2 diabetes mellitus with diabetic chronic kidney disease; E11.42 Type 2 diabetes mellitus with diabetic polyneuropathy; J44.9 Chronic obstructive pulmonary disease, unspecified; B37.2 Candidiasis of skin and nail; B96.20 Unspecified Escherichia coli [E. coli] as the cause of diseases classified elsewhere; D63.1 Anemia in chronic kidney disease; E78.5 Hyperlipidemia, unspecified; E66.01 Morbid (severe) obesity due to excess calories; E03.9 Hypothyroidism, unspecified; R07.89 Other chest pain; K21.9 Gastro-esophageal reflux disease without esophagitis; M19.90 Unspecified osteoarthritis, unspecified site; G47.33 Obstructive sleep apnea (adult) (pediatric); G20.A1 Parkinson's disease without dyskinesia, without mention of fluctuations; G25.81 Restless legs syndrome; F31.9 Bipolar disorder, unspecified; F41.9 Anxiety disorder, unspecified; Z96.653 Presence of artificial knee joint, bilateral; Z79.01 Long term (current) use of anticoagulants; Z87.442 Personal history of urinary calculi; Z87.891 Personal history of nicotine dependence; Z91.199 Patient's noncompliance with other medical treatment and regimen due to unspecified reason
CPT/HCPCS: 36415; 36430; 70450; 71045; 71046; 73502; 80053; 80069; 81001; 82948; 83735; 83880; 84484; 85025; 85027; 85055; 85610; 85730; 86140; 86850; 86900; 86901; 86923; 87086; 87186; 93005; 93971; 94640; 96365; 96366; 96367; 96375; 96376; 97110; 97116; 97161; 97165; 97530; 97535; 99285; A9270; G0378; J0696; J1939; J1940; J2185; J3475; J7050; P9016; Q5105

== ENCOUNTER 2023-12-02 16:19 | Emergency (ER) | payer MEDICARE, BC, SELFPAY ==
--- NOTE | ~2023-12-02 | US_ITS ---
EXAMINATION: US venous doppler [facility] DATE: 12/02/2023 17:28 INDICATION: Left lower limb pain and swelling TECHNIQUE: Grayscale ultrasound images without and with compression and Doppler ultrasound images of the left lower extremity veins were obtained. COMPARISON: None. FINDINGS: The visualized portions of left common femoral vein, profunda (deep) femoral vein, femoral vein, popl iteal vein, peroneal veins, posterior tibial veins, gastrocnemius vein and greater saphenous vein out flow are patent. IMPRESSION: 1. No deep venous thrombosis in the left lower limb. Reviewed, dictated and finalized at location A.
--- NOTE | ~2023-12-02 | XR_ITS ---
EXAMINATION: XR hip LT 2V w AP pelvis DATE: 12/02/2023 19:55 INDICATION: Left hip pain TECHNIQUE: Anteroposterior view of the pelvis and anteroposterior and frog-leg lateral views of the l eft hip were obtained. COMPARISON: None. FINDINGS: Bone alignment is normal. No fracture or suspected osteonecrosis. Mild osteoarthritis at the bilatera l hip and sacroiliac joints. Atherosclerotic calcifications and phleboliths in the pelvis. IMPRESSION: 1. Mild bilateral hip and sacroiliac osteoarthritis. No acute osseous abnormality. Reviewed, dictated and finalized at location A. IMPRESSION: 1. Mild bilateral hip and sacroiliac osteoarthritis. No acute osseous abnormali ty.
--- NOTE | ~2023-12-02 | XR_ITS ---
EXAMINATION: XR knee LT min 4V DATE: 12/02/2023 19:55 INDICATION: Left knee pain TECHNIQUE: Anteroposterior, 2 oblique and crosstable lateral views of the left knee were obtained COMPARISON: None. FINDINGS: Left total knee arthroplasty with patellar resurfacing which appears well seated. No fracture. Small region of lucency underlying the lateral side of the tibial tray which could be related to particle d isease. No left knee joint effusion. IMPRESSION: 1. Left total knee arthroplasty with no joint effusion or acute osseous abnormality. 2. Small region of lucency underlying the lateral side of the tibial tray which could be due to parti ashlie disease. Reviewed, dictated and finalized at location A. IMPRESSION: 1. Left total knee arthroplasty with no joint effusion or acute osseous abnorma lity. 2. Small region of lucency underlying the lateral side of the tibial tray which could be due to particle disease.
[2023-12-02 16:25] VITALS: BP 145/40; PULSE 60; RESP 18; TEMP 36.5; O2SAT 96
--- NOTE | 2023-12-02 16:39 | ED.EXTPRO ---
HPI - Extremity Problem General Chief complaint: Extremity Problem,Nontraumatic <Paulette Magana APRN - Last Filed: 12/02/23 16:42> Stated complaint: pain left arm & left leg <Paulette Magana APRN - Last Filed: 12/02/23 16:42> Time Seen by Provider: 12/02/23 19:00 <Paulette Magana APRN - Last Filed: 12/02/23 16:42> Focused HPI: Patient is a 73-year-old female who presents to the ER with complaints of left lower extremity pain, left arm pain, and left upper back pain. She reports she has a history of hypertension, hyperlipidemia, diabetes, COPD, CHF, and CKD. Patient reports she was recently admitted to the hospital where they found nothing wrong with me. She reports she was discharged home but continues to have left lower extremity pain. Patient is 3 L nasal cannula at baseline. She denies any current chest pain, current shortness of breath, or other signs of illness/infection. GENERAL: Well-appearing, well-nourished, and in no acute distress. HEAD: Normocephalic, atraumatic. CHEST: Clear to auscultation. ?No respiratory distress. HEART: Regular rate and rhythm.? NEURO: ?Alert and oriented x3. Patient screened in triage and initial orders placed.? ?Additional care and disposition to be based upon?diagnostic testing and treatment. <Paulette Magana APRN - Last Filed: 12/02/23 16:42> Focused HPI: Patient is a 73-year-old female who presents to the ER with complaints of left lower extremity pain, left arm pain, and left upper back pain. She reports she has a history of hypertension, hyperlipidemia, diabetes, COPD, CHF, and CKD. Patient reports she was recently admitted to the hospital where they found nothing wrong with me. She reports she was discharged home but continues to have left lower extremity pain. Patient is 3 L nasal cannula at baseline. She denies any current chest pain, current shortness of breath, or other signs of illness/infection. GENERAL: Well-appearing, well-nourished, and in no acute distress. HEAD: Normocephalic, atraumatic. CHEST: Clear to auscultation. ?No respiratory distress. HEART: Regular rate and rhythm.? NEURO: ?Alert and oriented x3. Patient screened in triage and initial orders placed.? ?Additional care and disposition to be based upon?diagnostic testing and treatment. Agree with triage assessment. Patient did not report any arm pain during my assessment only complaining of left hip and left knee pain. Denies any recent falls or trauma. <Elaine Massey MD - Last Filed: 12/02/23 21:23> Related Data Home medications: Home Medications Medication Instructions Recorded Confirmed carbidopa 25 mg-levodopa 100 mg 3 tablet PO TID 12/10/19 11/17/23 tablet allopurinol 100 mg tablet 100 mg PO DAILY 12/12/21 11/17/23 ropinirole 0.5 mg tablet 0.5 mg PO HS 12/12/21 11/17/23 albuterol sulfate 90 mcg/actuation 2 puff inhalation QID PRN 12/23/21 11/17/23 aerosol inhaler Shortness Of Breath Or Wheezing gabapentin 100 mg capsule 300 mg PO TID ##0 12/29/21 11/17/23 pantoprazole 40 mg tablet,delayed 40 mg PO QAM 08/28/22 11/17/23 release atorvastatin 80 mg tablet 80 mg PO DAILY 09/27/23 11/17/23 apixaban 2.5 mg tablet (Eliquis) 2.5 mg PO BID 10/13/23 11/17/23 bumetanide 1 mg tablet 1 mg PO DAILY 10/13/23 11/17/23 levothyroxine 25 mcg tablet 25 mcg PO QAM 10/13/23 11/17/23 losartan 25 mg tablet 25 mg PO DAILY 10/13/23 11/17/23 metolazone 2.5 mg tablet 2.5 mg PO USEASDIRECTD 10/13/23 11/17/23 oxcarbazepine 150 mg tablet 75 mg PO BID 10/13/23 11/17/23 alprazolam 1 mg tablet 1 mg PO TID PRN Anxiety 11/20/23 11/20/23 <Paulette Magana APRN - Last Filed: 12/02/23 16:42> Allergies/Adverse reactions: Allergies Allergy/AdvReac Type Severity Reaction Status Date / Time iodine Allergy Severe Hives Verified 11/17/23 10:11 latex Allergy Severe Hives Verified 11/17/23 10:11 Contrast Media Allergy Mild Hives Uncoded 11/17/23 10:11 <Paulette
--- NOTE | 2023-12-02 16:42 | ECG_ITS ---
Test Date: 2023-12-02 18:00:04 Measurements Intervals [place] Rate: 59 P: 56 CT: 156 QRS: 3 QRSD: 90 T: 48 QT: 408 QTc: 405 Interpretive Statements SINUS BRADYCARDIA WITH SINUS ARRHYTHMIA LOW QRS VOLTAGE IN PRECORDIAL LEADS [QRS DEFLECTION < 1.0 mV IN CHEST LEADS] Compared to ECG 11/22/2023 11:08:59 NO SIGNIFICANT CHANGES Electronically Signed On 12-03-2023 09:39:04 CDT by Debbie Stoner M.D.
--- NOTE | 2023-12-02 17:16 | PC.NURSE ---
Pt is at .
[2023-12-02] MEDS: HYDROcodone/acetaminophen (*CRX) 5-325 MG TABLET 1 TAB PO (17:25)
[2023-12-02 17:41] LABS: Basophils Absolute Auto 0.1 K/mm3 (0.0-0.1); Eosinophils Absolute Auto 1.1 K/mm3 (0-0.3); Eosinophils Percent Auto 10.2 % (0-4.4); Hematocrit 28.9 % (37.0-47.0); Hemoglobin 8.7 g/dL (12.0-15.0); Immature Granulocyte Percent A 0.9 % (0-0.5); Lymphocytes Percent Auto 10.1 % (18.3-44.2); Mean Corpuscular HGB Conc 30.1 g/dl (32-36); Mean Corpuscular Hemoglobin 29.7 pg (26-34); Mean Corpuscular Volume 98.6 fl (80-100); Mean Platelet Volume 12.2 fl (7.4-10.4); Monocytes Absolute Auto 0.8 K/mm3 (0.1-0.6); Monocytes Percent Auto 7.2 % (2.6-8.5); Neutrophils Absolute Auto 7.7 K/mm3 (1.3-6.7); Neutrophils Percent Auto 70.6 % (45.5-73.1); Platelet Count Result 252 k/mm3 (150-375); Red Blood Count 2.93 M/mm3 (4.2-5.4); Red Cell Distribution Width 16.8 % (11.5-14.5); White Blood Count 10.9 K/mm3 (4.5-10.0)
[2023-12-02 17:50] LABS: Albumin Level 3.9 g/dL (3.5-5.1); Alkaline Phosphatase 134 U/L (38-126); Anion Gap 6 mmol/L (4-12); Aspartate Amino Transferase 15 U/L (14-36); Bilirubin,Total 0.6 mg/dL (0.2-1.3); Blood Urea Nitrogen 28 mg/dL (7-17); Calcium 9.5 mg/dL (8.4-10.2); Carbon Dioxide 36 mmol/L (22-30); Chloride 99 mmol/L (98-107); Estimated CRCL calculation 40 ml/min; Estimated Glomerular Filt Rate 37; Glucose 162 mg/dL (65-110); Potassium 4.3 mmol/L (3.4-5.0); Sodium 141 mmol/L (137-145)
[2023-12-02 18:35] VITALS: BP 148/82; PULSE 63; RESP 18; O2SAT 100
[2023-12-02 18:58] LABS: Alanine Aminotransferase 5 U/L (6-35)
[2023-12-02] MEDS: MORPHINE SULFATE (*CRX) 4 MG/ML INJ IV PUSH (19:20)
[2023-12-02] MEDS: ONDANSETRON INJ 4 MG/2 ML VIAL IV PUSH (19:20)
--- NOTE | 2023-12-02 20:41 | PC.NURSE ---
Patient needing to urinate. patient unable to ambulate to the bathroom. purewick put into place. and working effectively
[2023-12-02 23:03] VITALS: BP 140/89; PULSE 87; RESP 19; TEMP 36.9; O2SAT 98
== END 2023-12-02 23:05 | disposition home or self-care (01) ==
PROVIDERS: Registered Nurse; Emergency Provider Emergency Medicine
DX: M79.605 Pain in left leg (principal); G89.29 Other chronic pain; F41.9 Anxiety disorder, unspecified; R31.9 Hematuria, unspecified; D64.9 Anemia, unspecified; I13.0 Hypertensive heart and chronic kidney disease with heart failure and stage 1 through stage 4 chronic kidney disease, or unspecified chronic kidney disease; E11.22 Type 2 diabetes mellitus with diabetic chronic kidney disease; N18.30 Chronic kidney disease, stage 3 unspecified; I50.9 Heart failure, unspecified; J44.9 Chronic obstructive pulmonary disease, unspecified; K21.9 Gastro-esophageal reflux disease without esophagitis; E78.5 Hyperlipidemia, unspecified; Z87.442 Personal history of urinary calculi; G47.30 Sleep apnea, unspecified; M19.90 Unspecified osteoarthritis, unspecified site; G20.A1 Parkinson's disease without dyskinesia, without mention of fluctuations
CPT/HCPCS: 36415; 73502; 73564; 80053; 85025; 93005; 93971; 96374; 96375; 99284; A9270; J2270; J2405

== ENCOUNTER 2023-12-07 02:30 | Emergency (ER) | payer MEDICARE, BC, SELFPAY ==
[2023-12-07] VITALS (23 sets, daily range): BP systolic 144–191; BP diastolic 45–93; PULSE 52–81; RESP 11–19; TEMP 36.4–36.6; O2SAT 78–100
--- NOTE | ~2023-12-07 | XR_ITS ---
EXAMINATION: XR hip LT 2V w AP pelvis DATE: 12/07/2023 04:38 INDICATION: Left hip injury. TECHNIQUE: An anteroposterior view of the pelvis and 2 views of left hip were obtained. COMPARISON: Pelvis and left hip radiographs 12/02/2023 FINDINGS: Alignment is normal. No fracture. There is mild osteoarthritis of the hips. Osteitis pubis is noted. There is severe osteoarthritis of the sacroiliac joints. There is mild lumbar spondylosis. IMPRESSION: 1. Mild osteoarthritis of the hips. Reviewed, dictated and finalized at location A.
--- NOTE | ~2023-12-07 | XR_ITS ---
EXAMINATION: XR knee LT 3V DATE: 12/07/2023 04:38 INDICATION: Left knee injury. TECHNIQUE: 3 views of left knee were obtained. COMPARISON: Left knee radiographs 12/02/2023 FINDINGS: There is a total left knee arthroplasty in near-anatomic alignment. No fracture. No peripro sthetic lucency to suggest loosening or infection. There is a small knee joint effusion. IMPRESSION: 1. Total left knee arthroplasty in near-anatomic alignment. 2. Small left knee joint effusion. Reviewed, dictated and finalized at location A.
--- NOTE | ~2023-12-07 | CT_ITS ---
EXAMINATION: CT cervical spine wo con DATE: 12/07/2023 04:03 INDICATION: Head injury. Neck injury. TECHNIQUE: Computed tomography (CT) of the cervical spine was performed without intravenous contrast. Automated exposure control and iterative reconstruction technique were employed. The dose-length pro duct was 461.31 mGy-cm. COMPARISON: CT cervical spine 10/13/2023 FINDINGS: There is a 13 mm nodule in right thyroid lobe, likely not clinically significant. There is 2 mm anterolisthesis of C4 on C5. Vertebral body heights are normal. There is mildly decreased disc h eight at C5-C6 and severely decreased disc height at C6-C7. The following disc levels are specificall y discussed: C2-C3: There is no uncovertebral joint osteoarthritis. There is severe right and moderate left facet joint osteoarthritis. There is no neural foraminal stenosis. There is no central canal stenosis. C3-C4: There is no uncovertebral joint osteoarthritis. There is mild right and moderate left facet nilton int osteoarthritis. There is no neural foraminal stenosis. There is no central canal stenosis. C4-C5: There is no uncovertebral joint osteoarthritis. There is mild right and severe left facet join t osteoarthritis. There is mild left neural foraminal stenosis. There is mild central canal stenosis. C5-C6: There is mild right and severe left uncovertebral joint osteoarthritis. There is mild bilatera l facet joint osteoarthritis. There is mild left neural foraminal stenosis. There is mild central can al stenosis. C6-C7: There is moderate and severe left uncovertebral joint osteoarthritis. There is mild bilateral facet joint osteoarthritis. There is mild left neural foraminal stenosis. There is mild central canal stenosis. C7-T1: There is no uncovertebral joint osteoarthritis. There is moderate right facet joint osteoarthr itis. There is ankylosis of left facet joints with mild hypertrophy. There is mild left neural forami nal stenosis. There is no central canal stenosis. IMPRESSION: 1. No fracture. 2. Severe cervical spondylosis. Reviewed, dictated and finalized at location A.
--- NOTE | ~2023-12-07 | XR_ITS ---
EXAMINATION: XR shoulder LT min 2V DATE: 12/07/2023 04:38 INDICATION: Left shoulder injury. TECHNIQUE: 3 views of left shoulder were obtained. COMPARISON: None. FINDINGS: Alignment is normal. No fracture. There is mild osteoarthritis of glenohumeral joint and se marv osteoarthritis of acromioclavicular joint. IMPRESSION: 1. Polyarticular osteoarthritis. Reviewed, dictated and finalized at location A.
--- NOTE | ~2023-12-07 | CT_ITS ---
EXAMINATION: CT brain wo con DATE: 12/07/2023 04:03 INDICATION: Head injury. TECHNIQUE: Computed tomography (CT) of the head was performed without intravenous contrast. The mA wa s adjusted according to patient size. Iterative reconstruction technique was employed. The dose-lengt h product was 756.67 mGy-cm. COMPARISON: Head CT 11/17/2023 FINDINGS: There are scattered areas of low attenuation in the cerebral white matter. There is no intr acranial hemorrhage, acute infarction, or abnormal intracranial mass lesion. The ventricles are devan l in size. There is mild mucosal thickening in the paranasal sinuses. There are likely changes of ocu lar lens replacement surgeries. The mastoid air cells are normal. IMPRESSION: 1. Stable extensive nonspecific cerebral white matter disease, which likely represents chronic small vessel ischemic disease. Reviewed, dictated and finalized at location A. IMPRESSION: 1. Stable extensive nonspecific cerebral white matter disease, which likely rep resents chronic small vessel ischemic disease.
--- NOTE | 2023-12-07 03:21 | PC.NURSE ---
RN sent labs at this time. Lav, Green, and Blue top. Patient is on the bed side commode at this time trying to urinate.
[2023-12-07 03:22] LABS: Basophils Absolute Auto 0.1 K/mm3 (0.0-0.1); Basophils Percent Auto 1.5 % (0.2-1.2); Eosinophils Absolute Auto 1.4 K/mm3 (0-0.3); Eosinophils Percent Auto 14.6 % (0-4.4); Hematocrit 31.1 % (37.0-47.0); Hemoglobin 9.3 g/dL (12.0-15.0); Immature Granulocyte Absolute 0.05 K/mm3 (0.00-0.031); Immature Granulocyte Percent A 0.5 % (0-0.5); Lymphocytes Absolute Auto 1.08 K/mm3 (0.9-3.2); Lymphocytes Percent Auto 11.3 % (18.3-44.2); Mean Corpuscular HGB Conc 29.9 g/dl (32-36); Mean Corpuscular Hemoglobin 29.9 pg (26-34); Mean Platelet Volume 12.1 fl (7.4-10.4); Monocytes Absolute Auto 0.8 K/mm3 (0.1-0.6); Monocytes Percent Auto 8.6 % (2.6-8.5); Neutrophils Absolute Auto 6.1 K/mm3 (1.3-6.7); Neutrophils Percent Auto 63.5 % (45.5-73.1); Platelet Count Result 276 k/mm3 (150-375); Red Blood Count 3.11 M/mm3 (4.2-5.4); Red Cell Distribution Width 17.3 % (11.5-14.5); White Blood Count 9.6 K/mm3 (4.5-10.0)
[2023-12-07 03:29] LABS: Albumin Level 4.3 g/dL (3.5-5.1); Alkaline Phosphatase 141 U/L (38-126); Anion Gap 10 mmol/L (4-12); Aspartate Amino Transferase 15 U/L (14-36); Bilirubin,Total 0.6 mg/dL (0.2-1.3); Blood Urea Nitrogen 33 mg/dL (7-17); Calcium 9.6 mg/dL (8.4-10.2); Carbon Dioxide 32 mmol/L (22-30); Chloride 99 mmol/L (98-107); Estimated CRCL calculation 37 ml/min; Estimated Glomerular Filt Rate 34; Glucose 139 mg/dL (65-110); Sodium 141 mmol/L (137-145)
[2023-12-07 03:30] LABS: INR 1.2; Prothrombin Time 15.3 Seconds (11.1-14.7)
[2023-12-07 03:31] LABS: Partial Thromboplastin Time 28.2 Seconds (22.3-36.8)
[2023-12-07 03:34] LABS: Alanine Aminotransferase < 6 U/L (6-35)
--- NOTE | 2023-12-07 03:37 | PC.NURSE ---
This patient presents to ER for Fall. Patient would like to be considered for an assistive living facility. Patient is well kempt, alert and oriented x's 4. Complaint of pain leg and hip pain. This patient is ambulatory with assistance of 1.
[2023-12-07 03:38] LABS: NT Pro B Type Natriuretic Pept 2220 pg/mL (19.9-100)
[2023-12-07 03:42] LABS: Hypochromasia 1+; Platelet Estimate Adequate (Adequate)
[2023-12-07 03:43] LABS: Anisocytosis 1+; Schistocytes None Seen; Stomatocytes 1+
[2023-12-07 03:49] LABS: Add Urine Microscopic? YES; Appearance Urine Clear (Clear); Bacteria Urine None Seen /hpf; Bilirubin Urine Negative (Negative); Blood Urine Negative (Negative); Color Urine Yellow (Yellow); Glucose Urine UA Negative (Negative); Ketones Urine Negative (Negative); Leukocyte Esterase Ur Trace LEU/UL (Negative); Nitrate Urine Negative (Negative); Protein Urine 2+ mg/dL (Negative); RBC Urine 0-2 /hpf (0-2); Specific Grav Ur 1.015 (1.001-1.035); Squamous Epithelial Cell Urine None Seen /hpf (Few); Urobilinogen Urine 0.2 mg/dL (<2.0)
--- NOTE | 2023-12-07 03:53 | PC.NURSE ---
RN informed provider of patient complaining of pain to the leg. and hip on the right side. patients is at the bedside at this time.
[2023-12-07] MEDS: ACETAMINOPHEN 500 MG TABLET 1000 MG PO (04:14)
--- NOTE | 2023-12-07 04:56 | ED_ITS ---
HPI - General Adult General Chief complaint: Fall Stated complaint: L SHOULDER & KNEE PAIN S/P FALL Time Seen by Provider: 12/07/23 02:58 History of Present Illness HPI narrative: Patient is a 73-year-old female who presents emergency department with chief complaint of ground level fall. Patient reports that she lost her balance and reports that she fell the patient does report that she has been having problems with her left lower extremity has been having pain in her left hip and left knee for some time and has had a negative workup previously the patient states she has history of Parkinson's and reports that she has been having more frequent falls and having more difficulty with getting around the patient does report that she would like home health and would like also a new primary care provider and a neurologist Related Data Home Medications Medication Instructions Recorded Confirmed carbidopa 25 mg-levodopa 100 mg 3 tablet PO TID 12/10/19 11/17/23 tablet allopurinol 100 mg tablet 100 mg PO DAILY 12/12/21 11/17/23 ropinirole 0.5 mg tablet 0.5 mg PO HS 12/12/21 11/17/23 albuterol sulfate 90 mcg/actuation 2 puff inhalation QID PRN 12/23/21 11/17/23 aerosol inhaler Shortness Of Breath Or Wheezing gabapentin 100 mg capsule 300 mg PO TID ##0 12/29/21 11/17/23 pantoprazole 40 mg tablet,delayed 40 mg PO QAM 08/28/22 11/17/23 release atorvastatin 80 mg tablet 80 mg PO DAILY 09/27/23 11/17/23 apixaban 2.5 mg tablet (Eliquis) 2.5 mg PO BID 10/13/23 11/17/23 bumetanide 1 mg tablet 1 mg PO DAILY 10/13/23 11/17/23 levothyroxine 25 mcg tablet 25 mcg PO QAM 10/13/23 11/17/23 losartan 25 mg tablet 25 mg PO DAILY 10/13/23 11/17/23 metolazone 2.5 mg tablet 2.5 mg PO USEASDIRECTD 10/13/23 11/17/23 oxcarbazepine 150 mg tablet 75 mg PO BID 10/13/23 11/17/23 alprazolam 1 mg tablet 1 mg PO TID PRN Anxiety 11/20/23 11/20/23 Allergies Allergy/AdvReac Type Severity Reaction Status Date / Time iodine Allergy Severe Hives Verified 12/07/23 02:38 latex Allergy Severe Hives Verified 12/07/23 02:38 Contrast Media Allergy Mild Hives Uncoded 12/07/23 02:38 Review of Systems Review of Systems: A 10 system review of systems was completed on the patient and is negative except for what is stated in the HPI. Nursing and ancillary documentation was reviewed. [facility], [facility] Past Medical History Medical History Anxiety Bipolar 1 disorder BMI greater than 40 Chronic anemia Chronic kidney disease, stage 3 Baseline creatinine ranges between 1.2 and 1.50. Chronic obstructive pulmonary disease Depression Diabetic polyneuropathy Gastroesophageal reflux disease GI bleed (01/2010) Secondary to peptic ulcer. Heart failure with preserved ejection fraction CHF has been documented however echo in 08/2023 showed normal right and left ventricular size and systolic function with normal diastolic function. Hyperlipidemia Hypertension Hypothyroidism Impaired cognition Junctional rhythm Kidney stones Neuropathy Obstructive sleep apnea Patient does not use PAP therapy at nighttime. Osteoarthritis Parkinson disease Restless leg syndrome Type 2 diabetes mellitus Surgical History Surgical History History of bilateral knee arthroplasty History of hysterectomy History of sinus surgery Family History Family History Grandparent Diabetes mellitus Acute myocardial infarction Father Acute myocardial infarction Mother Acute myocardial infarction Social History Social History Social History: Surrogate decision maker: Fly Rondon, . Code status: Full code. Smoking packs per day: 2 Smoking cigarettes per day: 40.0 Years smoked: 40 Smoking pack-years: 80.00 Smoking status: Former smoker Tobacco type: cigarettes Second hand tobacco smoke exposure: Yes Alcohol intake: never Substance use: never Substance use type: does not use Do You Feel Safe in your Home?: Yes Lack of Transportation: YES Lack of Food: Never True Current Housing: I Have Housing Concerned About Future Housing: No Difficulty Paying Gas/Electric Bills: No Difficulty Paying for Meds: No Currently Unemployed: No Education: High School Diploma/GED Difficulty w/ Childcare or Family Care: No Additional living arrangements comments: Resides in [place] with her of over 50 years. They have 3 children. Spiritual care concerns: Yes (taoism) Exam Narrative: GENERAL: Well-appearing, well-nourished, and in no acute distress. HEAD: Normocephalic, atraumatic. EYES: PERRLA and EOMI. ENT: Nares clear, no rhinorrhea or epistaxis. Mucous membranes moist. NECK: Supple. CHEST: Clear to auscultation. No respiratory distress. HEART: Regular rate and rhythm. No murmur heard. Normal peripheral pulses. ABDOMEN: Soft, nontender, nondistended, normal active bowel sounds. EXTREMITIES: Normal range of motion tenderness to palpation left knee left hip left shoulder, no deformity noted. No edema. SKIN: Warm, dry, no rash. NEURO: No focal deficits. Alert and oriented x3. PSYCH: Normal mood and affect. Course Vital Signs Vital signs: Vital Signs Temperature 36.4 C 12/07/23 02:30 Pulse Rate 63 12/07/23 02:30 Respiratory Rate 14 12/07/23 02:30 Blood Pressure 181/75 H 12/07/23 02:30 Pulse Oximetry 92 12/07/23 02:30 Oxygen Delivery Nasal Cannula 12/07/23 02:30 Oxygen Flow Rate 3 12/07/23 02:30 Temperature 36.4 C 12/07/23 02:30 Pulse Rate 57 L 12/07/23 06:49 Respiratory Rate 18 12/07/23 06:49 Blood Pressure 146/47 H 12/07/23 06:49 Pulse Oximetry 98 12/07/23 06:49 Oxygen Delivery Nasal Cannula 12/07/23 02:30 Oxygen Flow Rate 3 12/07/23 02:30 Medical Decision Making [facility] Narrative Medical decision making narrative: Differential diagnosis includes intracranial hemorrhage, cervical spine fracture, UTI, electrolyte abnormality, knee fracture, hip fracture shoulder fracture, contusion Plain film x-ray showed no evidence of fracture CT head and CT C-spine showed no evidence of fracture or hemorrhage Laboratory studies did show evidence of a slight urinary tract infection The patient was started on oral antibiotics patient was able ambulate in walker Vital Signs Vital Signs: Vital Signs Temperature 36.4 C 12/07/23 02:30 Pulse Rate 63 12/07/23 02:30 Respiratory Rate 14 12/07/23 02:30 Blood Pressure 181/75 H 12/07/23 02:30 Pulse Oximetry 92 12/07/23 02:30 Oxygen Delivery Nasal Cannula 12/07/23 02:30 Oxygen Flow Rate 3 12/07/23 02:30 Temperature 36.4 C 12/07/23 02:30 Pulse Rate 57 L 12/07/23 06:49 Respiratory Rate 18 12/07/23 06:49 Blood Pressure 146/47 H 12/07/23 06:49 Pulse Oximetry 98 12/07/23 06:49 Oxygen Delivery Nasal Cannula 12/07/23 02:30 Oxygen Flow Rate 3 12/07/23 02:30 Lab Data 12/07/23 03:14 12/07/23 03:14 Labs: Lab Results 12/07/23 12/07/23 Range/Units 03:14 03:33 WBC 9.6 (4.5-10.0) K/mm3 RBC 3.11 L (4.2-5.4) M/mm3 Hgb 9.3 L (12.0-15.0) g/dL Hct 31.1 L (37.0-47.0) % MCV 100.0 (80-100) fl MCH 29.9 (26-34) pg MCHC 29.9 L (32-36) g/dl RDW 17.3 H (11.5-14.5) % Plt Count 276 (150-375) k/mm3 MPV 12.1 H (7.4-10.4) fl Immature Gran % (Auto) 0.5 (0-0.5) % Neut % (Auto) 63.5 (45.5-73.1) % Lymph % (Auto) 11.3 L (18.3-44.2) % [place] % (Auto) 8.6 H (2.6-8.5) % Eos % (Auto) 14.6 H (0-4.4) % Baso % (Auto) 1.5 H (0.2-1.2) % Lymph # (Auto) 1.08 (0.9-3.2) K/mm3 [place] # (Auto) 0.8 H (0.1-0.6) K/mm3 Eos # (Auto) 1.4 H (0-0.3) K/mm3 Baso # (Auto) 0.1 (0.0-0.1) K/mm3 Abs Immat Gran (auto) 0.05 H (0.00-0.031) K/mm3 Absolute Neuts (auto) 6.1 (1.3-6.7) K/mm3 Absolute Nucleated RBC 0.000 (0.0-0.012) K/mm3 Nucleated RBC % 0.0 (0.0-0.2) % Platelet Estimate Adequate (Adequate) Hypochromasia 1+ Anisocytosis 1+ Stomatocytes 1+ Schistocytes None seen PT 15.3 H (11.1-14.7) Seconds INR 1.2 APTT 28.2 (22.3-36.8) Seconds Sodium 141 (137-145) mmol/L Potassium 5.0 (3.4-5.0) mmol/L Chloride 99 (98-107) mmol/L Carbon Dioxide 32 H (22-30) mmol/L Anion Gap 10 (4-12) mmol/L BUN 33 H (7-17) mg/dL Creatinine 1.50 H (0.7-1.0) mg/dL Estim Creat Clear Calc 37 ml/min Estimated GFR 34 L (59 - ) Glucose 139 H (65-110) mg/dL Calcium 9.6 (8.4-10.2) mg/dL Total Bilirubin 0.6 (0.2-1.3) mg/dL AST 15 (14-36) U/L ALT < 6 L (6-35) U/L Alkaline Phosphatase 141 H (38-126) U/L NT-Pro-B Natriuret Pep 2220 H (19.9-100) pg/mL Total Protein 8.0 (6.3-8.2) g/dL Albumin 4.3 (3.5-5.1) g/dL Urine Color Yellow (Yellow) Urine Appearance Clear (Clear) Urine pH 6.0 (5.0-9.0) Ur Specific [place] 1.015 (1.001-1.035) Urine Protein 2+ H (Negative) mg/dL Urine Glucose (UA) Negative (Negative) mg/dL Urine Ketones Negative (Negative) mg/dL Ur Blood (Man) Negative (Negative) Urine Nitrate Negative (Negative) Urine Bilirubin Negative (Negative) Urine Urobilinogen 0.2 (<2.0) mg/dL Leukocyte Esterase Rfl Trace H (Negative) NUBIA/UL Urine RBC 0-2 (0-2) /hpf Urine WBC 6-10 H (0-3) /hpf Ur Squamous Epith Cells None seen (Few) /hpf Urine Bacteria None seen /hpf Urine Casts 3-5 Discharge Plan Discharge Clinical Impression: Ground-level fall, Acute UTI, Head injury, Acute pain of left shoulder, Acute pain of left hip, Acute pain of left knee Patient Disposition: Home, Self-Care Condition: Stable Instructions: Antibiotic Form, Urinary Tract Infection in Women (ED), Head Injury (ED), Contusion in Adults (ED), Fall Prevention (ED) Prescriptions: New cephalexin 500 mg capsule 500 mg PO Q12H 7 Days Qty: 14 0RF No Action carbidopa-levodopa 25-100 mg tablet 3 tablet PO TID pantoprazole 40 mg Tablet,Delayed Release (Dr/Ec) 40 mg PO QAM atorvastatin 80 mg tablet 80 mg PO DAILY ipratropium-albuterol 0.5 mg-3 mg(2.5 mg base)/3 mL solution for nebulization 3 ml INHALATION Q6H PRN (Reason: Shortness Of Breath) Qty: 90 0RF bumetanide 1 mg tablet 1 mg PO DAILY Eliquis 2.5 mg tablet 2.5 mg PO BID oxcarbazepine 150 mg tablet 75 mg PO BID metolazone 2.5 mg tablet 2.5 mg PO USEASDIRECTD Rx Instructions: Take 1 tablet on Saturday and . levothyroxine 25 mcg tablet 25 mcg PO QAM losartan 25 mg tablet 25 mg PO DAILY allopurinol 100 mg tablet 100 mg PO DAILY ropinirole 0.5 mg Tablet 0.5 mg PO HS albuterol sulfate 90 mcg/actuation HFA aerosol inhaler 2 puff INHALATION QID PRN (Reason: Shortness Of Breath Or Wheezing) insulin glargine [Lantus U-100 Insulin] 100 unit/mL Solution 10 unit subcut DAILY Qty: 10 0RF Hold Instructions: HOLD - resume when okay with your dcotor alprazolam 1 mg tablet 1 mg PO TID PRN (Reason: Anxiety) methocarbamol 500 mg Tablet 500 mg PO TID PRN (Reason: Muscle/Joint Pain) Qty: 10 0RF gabapentin 100 mg Capsule 300 mg PO TID Qty: 0 Follow-up/Referrals: Soheila Da Silva DO [Physician] - PHYSICIAN NOT ON STAFF,NONSTAFF [Primary Care Provider] - Time of Disposition: 07:16
--- NOTE | 2023-12-07 04:57 | PC.NURSE ---
labs sent at this time. patient medicated per apr. patient is still moaning in room stating she is in pain. patient did not have any relief after RN gave IV fentanyl. Will re-check patient for pain.
--- NOTE | 2023-12-07 07:01 | PC.NURSE ---
this patient was able to walk about 75 feet with a walker, patient requires 3 L of nasal cannula. Patient is unsteady and states she is still in pain. Patient is complaining of pain of the shoulders. Patient reconnected to precision agriculture technician.
--- NOTE | 2023-12-07 07:15 | PC.NURSE ---
shift report given to Marni MARIEE. No pending orders.
[2023-12-07] MEDS: HYDROcodone/acetaminophen (*CRX) 5-325 MG TABLET 1 TAB PO (07:34)
--- NOTE | 2023-12-07 07:43 | PC.NURSE ---
[facility] ETA for [id number]
== END 2023-12-07 12:25 ==
PROVIDERS: Emergency Provider Emergency Medicine
DX: S49.92XA Unspecified injury of left shoulder and upper arm, initial encounter (principal); S09.90XA Unspecified injury of head, initial encounter; N39.0 Urinary tract infection, site not specified; M25.552 Pain in left hip; M25.562 Pain in left knee; G20.A1 Parkinson's disease without dyskinesia, without mention of fluctuations; I13.10 Hypertensive heart and chronic kidney disease without heart failure, with stage 1 through stage 4 chronic kidney disease, or unspecified chronic kidney disease; E11.22 Type 2 diabetes mellitus with diabetic chronic kidney disease; N18.30 Chronic kidney disease, stage 3 unspecified; E11.42 Type 2 diabetes mellitus with diabetic polyneuropathy; E78.5 Hyperlipidemia, unspecified; E03.9 Hypothyroidism, unspecified; D64.9 Anemia, unspecified; G47.33 Obstructive sleep apnea (adult) (pediatric); G25.81 Restless legs syndrome; K21.9 Gastro-esophageal reflux disease without esophagitis; M19.90 Unspecified osteoarthritis, unspecified site; F41.9 Anxiety disorder, unspecified; F31.9 Bipolar disorder, unspecified; Z96.653 Presence of artificial knee joint, bilateral; Z87.442 Personal history of urinary calculi; Z87.891 Personal history of nicotine dependence; Z90.710 Acquired absence of both cervix and uterus; Z79.01 Long term (current) use of anticoagulants; Z79.899 Other long term (current) drug therapy; Z79.4 Long term (current) use of insulin; M47.812 Spondylosis without myelopathy or radiculopathy, cervical region; M19.012 Primary osteoarthritis, left shoulder; M16.0 Bilateral primary osteoarthritis of hip; R90.82 White matter disease, unspecified; W18.39XA Other fall on same level, initial encounter
CPT/HCPCS: 36415; 70450; 72125; 73030; 73502; 73562; 80053; 81001; 83880; 85025; 85610; 85730; 87086; 87186; 99284; A9270

== ENCOUNTER 2023-12-29 04:20 | Inpatient (IN) | payer MEDICARE, BC, SELFPAY ==
[2023-12-29] VITALS (23 sets, daily range): BP systolic 61–157; BP diastolic 23–101; PULSE 79–132; RESP 16–26; TEMP 36.6–39.2; O2SAT 86–97; BMI 47.2
--- NOTE | ~2023-12-29 | XR_ITS ---
Portable chest x-ray Comparison: 12/29/2023 Clinical History: Tube placement Findings: Endotracheal tube, NG tube, and left-sided central venous line are in satisfactory positio ns. Questionable minimal basilar haziness. Cardiomediastinal silhouette is stable. Bones and soft ti ssues are unremarkable. Impression: Possible mild bibasilar pulmonary edema/atelectasis. No pneumothorax. Support tubes, as above. Reviewed, dictated and finalized at location M. SUPERVISOR Impression: Possible mild bibasilar pulmonary edema/atelectasis. No pneumothorax. Support tubes, as above.
--- NOTE | ~2023-12-29 | XR_ITS ---
EXAMINATION: XR chest port-a-cath/central Exam Date/Time: 12/29/2023 21:06 OUTSOLE BEVELER HISTORY: Central line placement Comparison: 08/28/2023 at 1:51 PM. RESULT: Lines, tubes, and devices: Right IJ central line is directed cephalad, tip out of the [id number]. Lungs and pleura: Significant rightward rotation. Clear lungs. Cardiomediastinal silhouette: Stable. Other: No acute osseous or upper abdominal finding. IMPRESSION: Malpositioned right IJ central line, recommend repositioning or replacement. Results reported telephonically to Angelique Petit NP by Dr. Patel at 9:36 PM on 12/29/2023. Reviewed, dictated and finalized at location K. OLE BEVELER
--- NOTE | ~2023-12-29 | XR_ITS ---
Portable chest x-ray Comparison: 11/22/2023 Clinical History: Torus of breath Findings: There is mild central congestive change. Cardiomediastinal silhouette is stable. Bones an d soft tissues are unremarkable. Impression: Mild central congestive change. Stable cardiomegaly. Reviewed, dictated and finalized at location . ER STAINER Impression: Mild central congestive change. Stable cardiomegaly.
--- NOTE | ~2023-12-29 | CT_ITS ---
EXAMINATION: CT abdomen pelvis wo con DATE: 12/29/2023 19:17 INDICATION: abdominal pain, worsened TECHNIQUE: Computed tomography (CT) of the abdomen and pelvis was performed without intravenous contr ast. Automated exposure control and iterative reconstruction technique were employed. The dose-length product was 1615.65 mGy-cm. COMPARISON: Same date at 5:53 AM. FINDINGS: Lower thorax: Mild cardiomegaly. Mild bibasilar scar/atelectasis. Patulous esophagus. Liver: Normal. Biliary/Gallbladder: Enlarged gallbladder. No inflammatory change No bile duct dilation. Pancreas: No mass or duct dilation. Spleen: Normal. Adrenals:No mass. Kidneys: No suspicious mass, obstructing stone, or hydronephrosis bilateral renal cortical atrophy. P unctate nonobstructing right renal calcifications. GI tract: Dilated, stool-filled ascending, transverse, and proximal descending colon, transition poin t at the splenic flexure. Pneumatosis at the splenic flexure with gas tracking along the adjacent mes entery, and increased associated stranding. Segmental wall thickening of the down stream mid/distal d escending colon. New proximal jejunal dilation with wall thickening. Normal appendix. Mesentery/Peritoneum: No ascites, mass, or free air. Retroperitoneum: No mass. Atherosclerotic abdominal aortic and/or arterial calcifications. Pelvis: Urinary bladder is mostly empty. Absent uterus. Ovaries not confidently identified. Soft Tissues: Soft tissues and body wall unremarkable. Bones: No acute osseous finding. IMPRESSION: Gallbladder hydrops, may be secondary to fasting or obstruction. New proximal jejunal dilation with wall thickening, may represent ileus or obstruction. Ischemia shou ld also be considered in the differential. Persistent large bowel obstruction, transition point at the splenic flexure, with pneumatosis, adjace nt contained free air versus intravascular gas, and increasing inflammatory changes concerning for is chemia. Results reported telephonically to Angelique Petit NP by Dr. Patel at 7:50 PM on 12/29/2023. Reviewed, dictated and finalized at location K. K SETTER OPERATOR IMPRESSION: Gallbladder hydrops, may be secondary to fasting or obstruction. New proximal jejunal dilation with wall thickening, may represent ileus or obst ruction. Ischemia should also be considered in the differential. Persistent large bowel obstruction, transition point at the splenic flexure, wi th pneumatosis, adjacent contained free air versus intravascular gas, and incre asing inflammatory changes concerning for ischemia. Results reported telephonically to Angelique Petit NP by Dr. Patel at 7:50 PM on 12/29/2023.
--- NOTE | ~2023-12-29 | CT_ITS ---
EXAMINATION: CT brain wo con DATE: 12/29/2023 14:27 INDICATION: altered mental status . TECHNIQUE: Computed tomography (CT) of the head was performed without intravenous contrast. The mA wa s adjusted according to patient size. Iterative reconstruction technique was employed. The dose-lengt h product was 681.00 mGy-cm. COMPARISON: 12/07/2023. FINDINGS: No acute intracranial hemorrhage or extra-axial fluid collection. No hydrocephalus, mass, or herniation. No acute ischemic infarct. Unremarkable dural venous sinus attenuation. No acute osseous abnormality. Small retention cyst/polyps and aerated secretions in the sphenoid sinuses, aerated secretions in the right posterior ethmoid sinuses, the remaining aerated spaces are clear. Moderate atrophy and chronic white matter change. Atherosclerotic intracranial calcification. Bilater al lens replacements. IMPRESSION: No acute intracranial process. Reviewed, dictated and finalized at location K. ITECTURAL MANAGER
--- NOTE | ~2023-12-29 | CT_ITS ---
Non-contrast CT scan of the Abdomen and Pelvis Clinical indication: Abdominal pain Technique: 2.5 mm axial scans were obtained through the abdomen and pelvis without intravenous or or al contrast. Dose reduction technique was used on this scan by utilizing automated exposure control a nd iterative reconstruction technique. The dose-length product (DLP) was 1395.13 mGy-cm. COMPARISON: 09/26/2023 Findings: Images through the lung bases reveal no abnormalities. There is no evidence of renal or ureteral calculi. The kidneys and the ureters are nondilated. The liver, spleen, pancreas, gallbladder, and adrenals appear normal. There are atherosclerotic calci fications of the aorta. . Possible area of relative luminal narrowing of the mid to distal descending colon with possible mild wall thickening and minimal adjacent inflammatory stranding. There is relatively distended, stool-mignon led large bowel upstream from this region, involving the proximal descending colon, transverse colon, and ascending colon. Small bowel unremarkable. Images through the pelvis were performed. There is no evidence of ascites or lymphadenopathy. Urinary bladder unremarkable. No pelvic mass seen. No ascites. Status post hysterectomy. Impression: Findings suspicious for segmental area of luminal narrowing and wall thickening involving the mid to distal descending colon with minimal adjacent inflammatory change. Upstream distended, stool-filled l arge bowel suggests an element of at least partial large bowel obstruction. Findings at the area of l uminal narrowing could reflect colitis and/or postinflammatory stricture versus possibility of infilt rating neoplasm. Correlate clinically. Consider colonoscopy as indicated. Reviewed, dictated and finalized at location . Impression: Findings suspicious for segmental area of luminal narrowing and wall thickening involving the mid to distal descending colon with minimal adjacent inflammator y change. Upstream distended, stool-filled large bowel suggests an element of a t least partial large bowel obstruction. Findings at the area of luminal narrow ing could reflect colitis and/or postinflammatory stricture versus possibility of infiltrating neoplasm. Correlate clinically. Consider colonoscopy as indicat ed.
[2023-12-29] MEDS: ONDANSETRON INJ 4 MG/2 ML VIAL IV PUSH ×2 (05:30→17:41)
[2023-12-29] MEDS: SODIUM CHLORIDE 0.9% IV 1,000 ML 999 ML IV CONT (05:31)
[2023-12-29] MEDS: MORPHINE SULFATE (*CRX) 4 MG/ML INJ 2 MG IV PUSH (05:31)
[2023-12-29 05:39] LABS: Basophils Percent Auto 0.4 % (0.2-1.2); Eosinophils Absolute Auto 0.7 K/mm3 (0-0.3); Eosinophils Percent Auto 6.9 % (0-4.4); Hematocrit 25.9 % (37.0-47.0); Hemoglobin 7.8 g/dL (12.0-15.0); Immature Granulocyte Absolute 0.06 K/mm3 (0.00-0.031); Immature Granulocyte Percent A 0.6 % (0-0.5); Lymphocytes Absolute Auto 0.61 K/mm3 (0.9-3.2); Lymphocytes Percent Auto 6.1 % (18.3-44.2); Mean Corpuscular HGB Conc 30.1 g/dl (32-36); Mean Corpuscular Hemoglobin 30.5 pg (26-34); Mean Corpuscular Volume 101.2 fl (80-100); Mean Platelet Volume 11.3 fl (7.4-10.4); Monocytes Absolute Auto 0.5 K/mm3 (0.1-0.6); Monocytes Percent Auto 4.8 % (2.6-8.5); Neutrophils Absolute Auto 8.1 K/mm3 (1.3-6.7); Neutrophils Percent Auto 81.2 % (45.5-73.1); Platelet Count Result 231 k/mm3 (150-375); Red Blood Count 2.56 M/mm3 (4.2-5.4); Red Cell Distribution Width 16.8 % (11.5-14.5)
[2023-12-29 05:51] LABS: Albumin Level 3.7 g/dL (3.5-5.1); Alkaline Phosphatase 156 U/L (38-126); Anion Gap 7 mmol/L (4-12); Aspartate Amino Transferase 14 U/L (14-36); Bilirubin,Total 0.6 mg/dL (0.2-1.3); Blood Urea Nitrogen 33 mg/dL (7-17); Calcium 9.5 mg/dL (8.4-10.2); Carbon Dioxide 31 mmol/L (22-30); Chloride 100 mmol/L (98-107); Estimated CRCL calculation 38 ml/min; Estimated Glomerular Filt Rate 34; Glucose 190 mg/dL (65-110); Lipase 127 U/L (23-300); Potassium 4.4 mmol/L (3.4-5.0); Sodium 138 mmol/L (137-145)
[2023-12-29 06:03] LABS: Alanine Aminotransferase < 6 U/L (6-35)
--- NOTE | 2023-12-29 06:08 | ED.GENADULT ---
HPI - General Adult General Chief complaint: Abdominal Pain <Jae Mayes MD - Last Filed: 12/29/23 06:08> Stated complaint: ABD pain <Jae Mayes MD - Last Filed: 12/29/23 06:08> Time Seen by Provider: 12/29/23 04:59 <Jae Mayes MD - Last Filed: 12/29/23 06:08> History of Present Illness HPI narrative: Patient 73-year-old female who presents emergency department chief complaint of abdominal pain. Patient states pain is been ongoing for a couple of weeks reports that she has pain worse the left lower quadrant patient reports pain is worse movement. <Jae Mayes MD - Last Filed: 12/29/23 06:08> Related Data Home medications: Home Medications Medication Instructions Recorded Confirmed carbidopa 25 mg-levodopa 100 mg 3 tablet PO TID 12/10/19 12/29/23 tablet allopurinol 100 mg tablet 100 mg PO DAILY 12/12/21 12/29/23 ropinirole 0.5 mg tablet 0.5 mg PO HS 12/12/21 12/29/23 albuterol sulfate 90 mcg/actuation 2 puff inhalation QID PRN 12/23/21 12/29/23 aerosol inhaler Shortness Of Breath Or Wheezing gabapentin 100 mg capsule 300 mg PO TID ##0 12/29/21 12/29/23 pantoprazole 40 mg tablet,delayed 40 mg PO QAM 08/28/22 12/29/23 release atorvastatin 80 mg tablet 80 mg PO DAILY 09/27/23 12/29/23 apixaban 2.5 mg tablet (Eliquis) 2.5 mg PO BID 10/13/23 12/29/23 bumetanide 1 mg tablet 1 mg PO DAILY 10/13/23 12/29/23 levothyroxine 25 mcg tablet 25 mcg PO QAM 10/13/23 12/29/23 losartan 25 mg tablet 25 mg PO DAILY 10/13/23 12/29/23 metolazone 2.5 mg tablet 2.5 mg PO USEASDIRECTD 10/13/23 12/29/23 oxcarbazepine 150 mg tablet 75 mg PO BID 09/01/24 11/17/24 alprazolam 1 mg tablet 1 mg PO TID PRN Anxiety 11/20/23 12/29/23 <Jae Mayes MD - Last Filed: 12/29/23 06:08> Allergies/adverse reactions: Allergies Allergy/AdvReac Type Severity Reaction Status Date / Time iodine Allergy Severe Hives Verified 12/29/23 04:35 latex Allergy Severe Hives Verified 12/29/23 04:35 Contrast Media Allergy Mild Hives Uncoded 12/07/23 02:38 <Jae Mayes MD - Last Filed: 12/29/23 06:08> Review of Systems Review of Systems: A 10 system review of systems was completed on the patient and is negative except for what is stated in the HPI. Nursing and ancillary documentation was reviewed. <Jae Mayes MD - Last Filed: 12/29/23 06:08> [facility] Past Medical History Medical History: Medical History Anxiety Bipolar 1 disorder BMI greater than 40 Chronic anemia Chronic kidney disease, stage 3 Baseline creatinine ranges between 1.2 and 1.50. Chronic obstructive pulmonary disease Depression Diabetic polyneuropathy Gastroesophageal reflux disease GI bleed (01/2010) Secondary to peptic ulcer. Heart failure with preserved ejection fraction CHF has been documented however echo in 08/2023 showed normal right and left ventricular size and systolic function with normal diastolic function. Hyperlipidemia Hypertension Hypothyroidism Impaired cognition Junctional rhythm Kidney stones Neuropathy Obstructive sleep apnea Patient does not use PAP therapy at nighttime. Osteoarthritis Parkinson disease Restless leg syndrome Type 2 diabetes mellitus <Jae Mayes MD - Last Filed: 12/29/23 06:08> Surgical History Surgical History: Surgical History History of bilateral knee arthroplasty History of hysterectomy History of sinus surgery <Jae Mayes MD - Last Filed: 12/29/23 06:08> Family History Family History: Family History Grandparent Diabetes mellitus Acute myocardial infarction Father Acute myocardial infarction Mother Acute myocardial infarction <Jae Mayes MD - Last Filed: 12/29/23 06:08> Social History Social History: Social History Social History: Surrogate decision maker: Fly Rondon, . Code status: Full code. Smoking packs per day: 2 Smoking cigarettes per day: 40.0 Years smoked: 40 Smoking pack-years: 80.00 Smoking status: Former smoker Tobacco type: cigarettes Second hand tobacco smoke exposure: Yes Alcohol intake: never Substance use: never Substance use type: does not use Do You Feel Safe in your Home?: Yes Lack of Transportation: YES Lack of Food: Never True Current Housing: I Have Housing Concerned About Future Housing: No Difficulty Paying Gas/Electric Bills: No Difficulty Paying for Meds: No Currently Unemployed: No Education: High School Diploma/GED Difficulty w/ Childcare or Family Care: No Additional living arrangements comments: Resides in [place] with her of over 50 years. They have 3 children. Spiritual care concerns: No <Jae Mayes MD - Last Filed: 12/29/23 06:08> Exam Narrative: GENERAL: Well-appearing, well-nourished, and in no acute distress. HEAD: Normocephalic, atraumatic. EYES: PERRLA and EOMI. ENT: Nares clear, no rhinorrhea or epistaxis. Mucous membranes moist. NECK: Supple. CHEST: Clear to auscultation. No respiratory distress. HEART: Regular rate and rhythm. No murmur heard. Normal peripheral pulses. ABDOMEN: Soft, tenderness to palpation left lower quadrant, nondistended, normal active bowel sounds. EXTREMITIES: Normal range of motion. No edema. SKIN: Warm, dry, no rash. NEURO: No focal deficits. Alert and oriented x3. PSYCH: Normal mood and affect. <Jae Mayes MD - Last Filed: 12/29/23 06:08> Course Reevaluation(s) Reevaluation #1: I spoke with patient and her daughter at bedside. Patient has narrowing of her large intestines. The reports has C diff but patient is not having diarrhea. <Ambar Rahman MD - Last Filed: 12/29/23 17:18> Date: 12/29/23 <Ambar Rahman MD - Last Filed: 12/29/23 17:18> Time: 10:15 <Ambar Rahman MD - Last Filed: 12/29/23 17:18> Consultations Consultation #1: Dr. Dove was consulted and he came to ER to see patient. He reviewed patient's information and he thinks patient has diverticulitis. He wants patient to be started on cipro and flagyl IV. <Ambar Rahman MD - Last Filed: 12/29/23 17:18> Date: 12/29/23 <Ambar Rahman MD - Last Filed: 12/29/23 17:18> Time: 12:02 <Ambar Rahman MD - Last Filed: 12/29/23 17:18> Vital Signs Vital signs: Vital Signs Temperature 97.8 F 12/29/23 04:32 Pulse Rate 79 12/29/23 04:32 Respiratory Rate 20 12/29/23 04:32 Blood Pressure 145/101 H 12/29/23 04:32 Pulse Oximetry 93 12/29/23 04:32 Oxygen Delivery Room Air 12/29/23 04:32 Temperature 101.6 F H 12/29/23 16:34 Pulse Rate 98 12/29/23 14:21 Respiratory Rate 22 H 12/29/23 14:21 Blood Pressure 131/42 L 12/29/23 14:21 Pulse Oximetry 95 12/29/23 14:21 Oxygen Delivery Nasal Cannula 12/29/23 13:30 Oxygen Flow Rate 2 12/29/23 13:30 <Jae Mayes MD - Last Filed: 12/29/23 06:08> Vital Signs Temperature 97.8 F 12/29/23 04:32 Pulse Rate 79 12/29/23 04:32 Respiratory Rate 20 12/29/23 04:32 Blood Pressure 145/101 H 12/29/23 04:32 Pulse Oximetry 93 12/29/23 04:32 Oxygen Delivery Room Air 12/29/23 04:32 Temperature 101.6 F H 12/29/23 16:34 Pulse Rate 98 12/29/23 14:21 Respiratory Rate 22 H 12/29/23 14:21 Blood Pressure 131/42 L 12/29/23 14:21 Pulse Oximetry 95 12/29/23 14:21 Oxygen Delivery Nasal Cannula 12/29/23 13:30 Oxygen Flow Rate 2 12/29/23 13:30 <Ambar Rahman MD - Last Filed: 12/29/23 17:18> Medical Decision Making Vital Signs Vital Signs: Vital Signs Temperature 97.8 F 12/29/23 04:32 Pulse Rate 79 12/29/23 04:32 Respiratory Rate 20 12/29/23 04:32 Blood Pressure 145/101 H 12/29/23 04:32 Pulse Oximetry 93 12/29/23 04:32 Oxygen Delivery Room Air 12/29/23 04:32 Temperature 101.6 F H 12/29/23 16:34 Pulse Rate 98 12/29/23 14:21 Respiratory Rate 22 H 12/29/23 14:21 Blood Pressure 131/42 L 12/29/23 14:21 Pulse Oximetry 95 12/29/23 14:21 Oxygen Delivery Nasal Cannula 12/29/23 13:30 Oxygen Flow Rate 2 12/29/23 13:30 <Jae Mayes MD - Last Filed: 12/29/23 06:08> Vital Signs Temperature 97.8 F 12/29/23 04:32 Pulse Rate 79 12/29/23 04:32 Respiratory Rate 20 12/29/23 04:32 Blood Pressure 145/101 H 12/29/23 04:32 Pulse Oximetry 93 12/29/23 04:32 Oxygen Delivery Room Air 12/29/23 04:32 Temperature 101.6 F H 12/29/23 16:34 Pulse Rate 98 12/29/23 14:21 Respiratory Rate 22 H 12/29/23 14:21 Blood Pressure 131/42 L 12/29/23 14:21 Pulse Oximetry 95 12/29/23 14:21 Oxygen Delivery Nasal Cannula 12/29/23 13:30 Oxygen Flow Rate 2 12/29/23 13:30 <Ambar Rahman MD - Last Filed: 12/29/23 17:18> Lab Data Lab results reviewed: Yes I reviewed the patient's lab results. <Ambar Rahman MD - Last Filed: 12/29/23 17:18> Result diagrams: 12/29/23 13:54 12/29/23 13:54 <Jae Mayes MD - Last Filed: 12/29/23 06:08> Labs: Lab Results 12/29/23 12/29/23 12/29/23 Range/Units 05:17 06:44 10:46 WBC 10.0 (4.5-10.0) K/mm3 RBC 2.56 L (4.2-5.4) M/mm3 Hgb 7.8 L (12.0-15.0) g/dL Hct 25.9 L (37.0-47.0) % MCV 101.2 H (80-100) fl MCH 30.5 (26-34) pg MCHC 30.1 L (32-36) g/dl RDW 16.8 H (11.5-14.5) % Plt Count 231 (150-375) k/mm3 MPV 11.3 H (7.4-10.4) fl Immature Gran % (Auto) 0.6 H (0-0.5) % Neut % (Auto) 81.2 H (45.5-73.1) % Lymph % (Auto) 6.1 L (18.3-44.2) % [place] % (Auto) 4.8 (2.6-8.5) % Eos % (Auto) 6.9 H (0-4.4) % Baso % (Auto) 0.4 (0.2-1.2) % Lymph # (Auto) 0.61 L (0.9-3.2) K/mm3 [place] # (Auto) 0.5 (0.1-0.6) K/mm3 Eos # (Auto) 0.7 H (0-0.3) K/mm3 Baso # (Auto) 0.0 (0.0-0.1) K/mm3 Abs Immat Gran (auto) 0.06 H (0.00-0.031) K/mm3 Absolute Neuts (auto) 8.1 H (1.3-6.7) K/mm3 Absolute Nucleated RBC 0.000 (0.0-0.012) K/mm3 Nucleated RBC % 0.0 (0.0-0.2) % Sodium 138 (137-145) mmol/L Potassium 4.4 (3.4-5.0) mmol/L Chloride 100 (98-107) mmol/L Carbon Dioxide 31 H (22-30) mmol/L Anion Gap 7 (4-12) mmol/L BUN 33 H (7-17) mg/dL Creatinine 1.50 H (0.7-1.0) mg/dL Estim Creat Clear Calc 38 ml/min Estimated GFR 34 L (59 - ) Glucose 190 H (65-110) mg/dL Lactic Acid 3.2 H 1.3 (0.7-2.0) mmol/L Calcium 9.5 (8.4-10.2) mg/dL Total Bilirubin 0.6 (0.2-1.3) mg/dL AST 14 (14-36) U/L ALT < 6 L (6-35) U/L Alkaline Phosphatase 156 H (38-126) U/L Total Protein 7.0 (6.3-8.2) g/dL Albumin 3.7 (3.5-5.1) g/dL Lipase 127 (23-300) U/L Urine Color Yellow (Yellow) Urine Appearance Clear (Clear) Urine pH 7.5 (5.0-9.0) Ur Specific [place] 1.014 (1.001-1.035) Urine Protein 2+ H (Negative) mg/dL Urine Glucose (UA) Negative (Negative) mg/dL Urine Ketones Negative (Negative) mg/dL Ur Blood (Man) Negative (Negative) Urine Nitrate Negative (Negative) Urine Bilirubin Negative (Negative) Urine Urobilinogen 0.2 (<2.0) mg/dL Add Ur Microanalysis Reviewed Leukocyte Esterase Rfl Negative (Negative) NUBIA/UL Urine RBC 0-2 (0-2) /hpf Urine WBC 0-5 (0-3) /hpf Ur Squamous Epith Cells None seen (Few) /hpf Urine Bacteria None seen /hpf Urine Casts 0-2 <Jae Mayes MD - Last Filed: 12/29/23 06:08> Lab Results 12/29/23 12/29/23 12/29/23 Range/Units 05:17 06:44 10:46 WBC 10.0 (4.5-10.0) K/mm3 RBC 2.56 L (4.2-5.4) M/mm3 Hgb 7.8 L (12.0-15.0) g/dL Hct 25.9 L (37.0-47.0) % MCV 101.2 H (80-100) fl MCH 30.5 (26-34) pg MCHC 30.1 L (32-36) g/dl RDW 16.8 H (11.5-14.5) % Plt Count 231 (150-375) k/mm3 MPV 11.3 H (7.4-10.4) fl Immature Gran % (Auto) 0.6 H (0-0.5) % Neut % (Auto) 81.2 H (45.5-73.1) % Lymph % (Auto) 6.1 L (18.3-44.2) % [place] % (Auto) 4.8 (2.6-8.5) % Eos % (Auto) 6.9 H (0-4.4) % Baso % (Auto) 0.4 (0.2-1.2) % Lymph # (Auto) 0.61 L (0.9-3.2) K/mm3 [place] # (Auto) 0.5 (0.1-0.6) K/mm3 Eos # (Auto) 0.7 H (0-0.3) K/mm3 Baso # (Auto) 0.0 (0.0-0.1) K/mm3 Abs Immat Gran (auto) 0.06 H (0.00-0.031) K/mm3 Absolute Neuts (auto) 8.1 H (1.3-6.7) K/mm3 Absolute Nucleated RBC 0.000 (0.0-0.012) K/mm3 Nucleated RBC % 0.0 (0.0-0.2) % Sodium 138 (137-145) mmol/L Potassium 4.4 (3.4-5.0) mmol/L Chloride 100 (98-107) mmol/L Carbon Dioxide 31 H (22-30) mmol/L Anion Gap 7 (4-12) mmol/L BUN 33 H (7-17) mg/dL Creatinine 1.50 H (0.7-1.0) mg/dL Estim Creat Clear Calc 38 ml/min Estimated GFR 34 L (59 - ) Glucose 190 H (65-110) mg/dL Lactic Acid 3.2 H 1.3 (0.7-2.0) mmol/L Calcium 9.5 (8.4-10.2) mg/dL Total Bilirubin 0.6 (0.2-1.3) mg/dL AST 14 (14-36) U/L ALT < 6 L (6-35) U/L Alkaline Phosphatase 156 H (38-126) U/L Total Protein 7.0 (6.3-8.2) g/dL Albumin 3.7 (3.5-5.1) g/dL Lipase 127 (23-300) U/L Urine Color Yellow (Yellow) Urine Appearance Clear (Clear) Urine pH 7.5 (5.0-9.0) Ur Specific [place] 1.014 (1.001-1.035) Urine Protein 2+ H (Negative) mg/dL Urine Glucose (UA) Negative (Negative) mg/dL Urine Ketones Negative (Negative) mg/dL Ur Blood (Man) Negative (Negative) Urine Nitrate Negative (Negative) Urine Bilirubin Negative (Negative) Urine Urobilinogen 0.2 (<2.0) mg/dL Add Ur Microanalysis Reviewed Leukocyte Esterase Rfl Negative (Negative) NUBIA/UL Urine RBC 0-2 (0-2) /hpf Urine WBC 0-5 (0-3) /hpf Ur Squamous Epith Cells None seen (Few) /hpf Urine Bacteria None seen /hpf Urine Casts 0-2 <Ambar Rahman MD - Last Filed: 12/29/23 17:18> Imaging Data Radiologist's impression: ITS Impressions Abdomen/Pelvis CT 12/29/23 08:47 Impression: Findings suspicious for segmental area of luminal narrowing and wall thickening involving the mid to distal descending colon with minimal adjacent inflammatory change. Upstream distended, stool-filled large bowel suggests an element of at least partial large bowel obstruction. Findings at the area of luminal narrowing could reflect colitis and/or postinflammatory stricture versus possibility of infiltrating neoplasm. Correlate clinically. Consider colonoscopy as indicated. <Ambar Rahman MD - Last Filed: 12/29/23 17:18> Discharge Plan Discharge Clinical Impression: Diverticulitis, Acidosis, lactic, Anemia <Jae Mayes MD - Last Filed: 12/29/23 06:08> Patient Disposition: Still a Patient <Jae Mayes MD - Last Filed: 12/29/23 06:08> Condition: Improved <Jae Mayes MD - Last Filed: 12/29/23 06:08>
[2023-12-29 06:59] LABS: Add Urine Microscopic? YES; Appearance Urine Clear (Clear); Bacteria Urine None Seen /hpf; Bilirubin Urine Negative (Negative); Blood Urine Negative (Negative); Color Urine Yellow (Yellow); Glucose Urine UA Negative (Negative); Ketones Urine Negative (Negative); Leukocyte Esterase Ur Negative LEU/UL (Negative); Need Manual Microscopic Reviewed; Nitrate Urine Negative (Negative); Non Pathogenic Casts 0-2; Protein Urine 2+ mg/dL (Negative); RBC Urine 0-2 /hpf (0-2); Specific Grav Ur 1.014 (1.001-1.035); Squamous Epithelial Cell Urine None Seen /hpf (Few); Urobilinogen Urine 0.2 mg/dL (<2.0); WBC Urine 0-5 /hpf (0-3); pH Urine 7.5 (5.0-9.0)
[2023-12-29 07:01] LABS: Lactic Acid Reflex 3.2 mmol/L (0.7-2.0)
[2023-12-29 09:49] LABS: Reflex Lactic Acid Yes or No Add Lactic
[2023-12-29 11:00] LABS: Lactic Acid 1.3 mmol/L (0.7-2.0)
--- NOTE | 2023-12-29 11:41 | P.CONGI_ITS ---
Assessment and Plan Assessment and plan (1) Diverticulitis: Code(s): K57.92 - Diverticulitis of intestine, part unspecified, without perforation or abscess without bleeding Status: Acute Plan The patient's clinical picture is most consistent with acute diverticulitis. Her morbid obesity makes it difficult to make a precise localization of pain and tenderness but the fact that he does have diverticulosis on previous and recent colonoscopy and the inflammatory findings on CT scan are very suggestive. Chronic exacerbated constipation is a major contributing factor. Her total white count is in the upper limit of normal but there are increased neutrophils. Ischemic colitis is other consideration, since she had it in the past, but it seems less likely now. In any case, appropriate antibotic coverage is indicated, along with adequate and cautious intravenous voume replacement given her acute renal failure and comorbidities. She should be kept NPO for now. Will follow closely. GI Consult Note Consult date/time: 12/29/23 11:41 HPI: Jenni Rondon is a 73 year old female history of Parkinson's disease, diastolic dysfunction, DM, COPD, hypertension who has been multiple times in the hospital for different reasons, including urosepsis. She suffers from chronic constipation. She has been complaining of moderate to severe abdominal pain which has been exacerbating over the past 2 weeks, preferentially located in the left lower quadrant but also radiating to the suprapubic area. There is no fever, nausea, vomiting or rectal bleeding. Of note, patient had a colonoscopy in February 2022 showing left-sided diverticulosis. Colonoscopy in the remote past was significant for ischemic colitis according to previous reports. Review of Systems Review of Systems: All systems reviewed & are unremarkable except as noted in HPI and below [facility] Past Medical History Medical History Anxiety Bipolar 1 disorder BMI greater than 40 Chronic anemia Chronic kidney disease, stage 3 Baseline creatinine ranges between 1.2 and 1.50. Chronic obstructive pulmonary disease Depression Diabetic polyneuropathy Gastroesophageal reflux disease GI bleed (01/2010) Secondary to peptic ulcer. Heart failure with preserved ejection fraction CHF has been documented however echo in 08/2023 showed normal right and left ventricular size and systolic function with normal diastolic function. Hyperlipidemia Hypertension Hypothyroidism Impaired cognition Junctional rhythm Kidney stones Neuropathy Obstructive sleep apnea Patient does not use PAP therapy at nighttime. Osteoarthritis Parkinson disease Restless leg syndrome Type 2 diabetes mellitus Surgical History Surgical History History of bilateral knee arthroplasty History of hysterectomy History of sinus surgery Family History Family History Grandparent Diabetes mellitus Acute myocardial infarction Father Acute myocardial infarction Mother Acute myocardial infarction Social History Social History Social History: Surrogate decision maker: Fly Rondon, . Code status: Full code. Smoking packs per day: 2 Smoking cigarettes per day: 40.0 Years smoked: 40 Smoking pack-years: 80.00 Smoking status: Former smoker Tobacco type: cigarettes Second hand tobacco smoke exposure: Yes Alcohol intake: never Substance use: never Substance use type: does not use Do You Feel Safe in your Home?: Yes Lack of Transportation: YES Lack of Food: Never True Current Housing: I Have Housing Concerned About Future Housing: No Difficulty Paying Gas/Electric Bills: No Difficulty Paying for Meds: No Currently Unemployed: No Education: High School Diploma/GED Difficulty w/ Childcare or Family Care: No Additional living arrangements comments: Resides in [place] with her hus band of over 50 years. They have 3 children. Spiritual care concerns: Yes (mormon) Meds Home Medications and Allergies Home Medications Medication Instructions Recorded Confirmed Type carbidopa 25 mg-levodopa 100 mg 3 tablet PO TID 12/10/19 11/17/23 History tablet allopurinol 100 mg tablet 100 mg PO DAILY 12/12/21 11/17/23 History ropinirole 0.5 mg tablet 0.5 mg PO HS 12/12/21 11/17/23 History albuterol sulfate 90 mcg/actuation 2 puff inhalation QID PRN 12/23/21 11/17/23 History aerosol inhaler Shortness Of Breath Or Wheezing gabapentin 100 mg capsule 300 mg PO TID ##0 12/29/21 11/17/23 History pantoprazole 40 mg tablet,delayed 40 mg PO QAM 08/28/22 11/17/23 History release insulin glargine 100 unit/mL 10 unit (0.1 mL) subcut DAILY #10 09/17/23 11/18/23 Rx subcutaneous solution (Lantus mL U-100 Insulin) atorvastatin 80 mg tablet 80 mg PO DAILY 09/27/23 11/17/23 History ipratropium 0.5 mg-albuterol 3 mg 3 ml inhalation Q6H PRN Shortness 10/01/23 11/17/23 Rx (2.5 mg base)/3 mL nebulization Of Breath #90 mL soln apixaban 2.5 mg tablet (Eliquis) 2.5 mg PO BID 10/13/23 11/17/23 History bumetanide 1 mg tablet 1 mg PO DAILY 10/13/23 11/17/23 History levothyroxine 25 mcg tablet 25 mcg PO QAM 10/13/23 11/17/23 History losartan 25 mg tablet 25 mg PO DAILY 10/13/23 11/17/23 History metolazone 2.5 mg tablet 2.5 mg PO USEASDIRECTD 10/13/23 11/17/23 History oxcarbazepine 150 mg tablet 75 mg PO BID 10/13/23 11/17/23 History alprazolam 1 mg tablet 1 mg PO TID PRN Anxiety 11/20/23 11/20/23 History methocarbamol 500 mg tablet 500 mg PO TID PRN Muscle/Joint 11/29/23 Rx Pain #10 tabs cephalexin 500 mg capsule 500 mg PO Q12H 7 days #14 caps 12/07/23 Rx Allergies Allergy/AdvReac Type Severity Reaction Status Date / Time iodine Allergy Severe Hives Verified 12/29/23 04:35 latex Allergy Severe Hives Verified 12/29/23 04:35 Contrast Media Allergy Mild Hives Uncoded 12/07/23 02:38 Vital Signs Vital Signs - 24 hr 12/29/23 04:32 12/29/23 06:38 12/29/23 06:39 Temperature 97.8 F Pulse Rate 79 95 Respiratory Rate 20 16 Blood Pressure 145/101 H 128/78 Pulse Oximetry 93 95 96 Oxygen Delivery Room Air Nasal Cannula Oxygen Flow Rate 2 12/29/23 09:20 Temperature Pulse Rate 102 H Respiratory Rate 18 Blood Pressure 146/57 H Pulse Oximetry 97 Oxygen Delivery Oxygen Flow Rate Exam Const: General: in distress and uncomfortable Other: Very dry oral mucosa Cardio: Rate: regular rate GI: Other: Very tender in the left lower quadrant and suprapubic areas, with rebound and guarding. Results Labs 12/29/23 05:17 12/29/23 05:17 Labs: Short CBC 12/29/23 Range/Units 05:17 WBC 10.0 (4.5-10.0) K/mm3 Hgb 7.8 L (12.0-15.0) g/dL Hct 25.9 L (37.0-47.0) % Plt Count 231 (150-375) k/mm3 BMP 12/29/23 05:17 Sodium 138 Potassium 4.4 Chloride 100 Carbon Dioxide 31 H BUN 33 H Creatinine 1.50 H Glucose 190 H Calcium 9.5 Liver Function 12/29/23 Range/Units 05:17 Total Bilirubin 0.6 (0.2-1.3) mg/dL AST 14 (14-36) U/L ALT < 6 L (6-35) U/L Alkaline Phosphatase 156 H (38-126) U/L Albumin 3.7 (3.5-5.1) g/dL Urine 12/29/23 Range/Units 05:17 Urine Color Yellow (Yellow) Urine Appearance Clear (Clear) Urine pH 7.5 (5.0-9.0) Ur Specific [place] 1.014 (1.001-1.035) Urine Protein 2+ H (Negative) mg/dL Urine Glucose (UA) Negative (Negative) mg/dL
[2023-12-29] MEDS: CIPROFLOXACIN 400 MG/D5W 200ML 200 ML 200 MG IVPB (12:13)
--- NOTE | 2023-12-29 12:46 | PC.NURSE ---
This patient, Jenni Rondon, was admitted to Medical Room 257-01. Patient/family oriented to hospital policies and general routines including ID bracelet, bed and alarms, visiting hours, pain management, procedures, bathroom and other care routines, personal items, smoking policy, room service/diet, and visiting hours. Information on how to activate the Rapid Response Team has been discussed. Patient/Family are encouraged to report perceived risks to care and to ask questions if they do not understand what they are told or what they should do.
[2023-12-29 13:58] LABS: Basophils Absolute Auto 0.1 K/mm3 (0.0-0.1); Basophils Percent Auto 0.3 % (0.2-1.2); Hematocrit 26.1 % (37.0-47.0); Hemoglobin 8.3 g/dL (12.0-15.0); Immature Granulocyte Absolute 0.09 K/mm3 (0.00-0.031); Immature Granulocyte Percent A 0.4 % (0-0.5); Lymphocytes Absolute Auto 0.13 K/mm3 (0.9-3.2); Lymphocytes Percent Auto 0.6 % (18.3-44.2); Mean Corpuscular HGB Conc 31.8 g/dl (32-36); Mean Corpuscular Hemoglobin 31.4 pg (26-34); Mean Corpuscular Volume 98.9 fl (80-100); Mean Platelet Volume 10.2 fl (7.4-10.4); Monocytes Absolute Auto 0.9 K/mm3 (0.1-0.6); Monocytes Percent Auto 3.7 % (2.6-8.5); Neutrophils Absolute Auto 22.1 K/mm3 (1.3-6.7); Platelet Count Result 227 k/mm3 (150-375); Red Blood Count 2.64 M/mm3 (4.2-5.4); Red Cell Distribution Width 17.1 % (11.5-14.5); White Blood Count 23.2 K/mm3 (4.5-10.0)
[2023-12-29 14:09] LABS: Alanine Aminotransferase 8 U/L (6-35); Albumin Level 3.3 g/dL (3.5-5.1); Alkaline Phosphatase 148 U/L (38-126); Anion Gap 9 mmol/L (4-12); Aspartate Amino Transferase 15 U/L (14-36); Bilirubin,Total 0.5 mg/dL (0.2-1.3); Blood Urea Nitrogen 37 mg/dL (7-17); Calcium 9.3 mg/dL (8.4-10.2); Carbon Dioxide 27 mmol/L (22-30); Chloride 101 mmol/L (98-107); Estimated CRCL calculation 35 ml/min; Estimated Glomerular Filt Rate 32; Glucose 212 mg/dL (65-110); Potassium 4.4 mmol/L (3.4-5.0); Sodium 137 mmol/L (137-145)
[2023-12-29 14:10] LABS: Lactic Acid Reflex 2.5 mmol/L (0.7-2.0)
[2023-12-29 14:11] LABS: Platelet Estimate Adequate (Adequate)
[2023-12-29 14:12] LABS: Schistocytes None Seen; Stomatocytes 1+
--- NOTE | 2023-12-29 14:16 | P.HP_ITS ---
H&P: HPI History of Present Illness Date/Time: 12/29/23 14:16 Chief Complaint: abdominal pain Narrative: this is a 73-year-old female who presents to the ED with complaint of abdominal pain. Pain has been ongoing for past couple of weeks. Worsened left lower quadrant. Denies any nausea or vomiting. Denies any diarrhea. Patient's has been recently was diagnosed with C diff. On the ED her vitals were stable. Laboratory evaluation showed WBC of 10 hemoglobin is 7.8 creatinine 1.5 which is close to her baseline level. Lactic acid was elevated at 3.2 with IV fluid resuscitation under come down to 1.3. LFTs were normal. Urinalysis was negative for infection. CT abdomen pelvis with findings suspicious for segmental area of luminal narrowing and wall thickening involving the mid to distal descending colon with minimal adjacent inflammatory change. Upstream distended stool-filled large bowel suggesting element of at least partial large bowel is obstruction. Findings at the area of luminal narrowing could reflect colitis and/or postinflammatory stricture versus possibility of infiltrating neoplasm. Consider colonoscopy she is admitted in this setting for further treatment. Review of Systems Review of Systems: - CONSTITUTIONAL: Denies weight loss, fe megan and chills. - HEENT: Denies changes in vision and he aring - RESPIRATORY: Denies SOB and cough. - CV: Denies palpitations and CP. - GI: Reports abdominal pain, denies peter sea, vomiting and diarrhea. - : Denies dysuria and urinary frequen cy. - MSK: Denies myalgia and joint pain. - SKIN: Denies rash and pruritus. - NEUROLOGICAL: Denies headache and sync ope. - PSYCHIATRIC: Denies recent changes in mood. Denies anxiety and depression. [facility] Past Medical History Medical History Anxiety Bipolar 1 disorder BMI greater than 40 Chronic anemia Chronic kidney disease, stage 3 Baseline creatinine ranges between 1.2 and 1.50. Chronic obstructive pulmonary disease Depression Diabetic polyneuropathy Gastroesophageal reflux disease GI bleed (01/2010) Secondary to peptic ulcer. Heart failure with preserved ejection fraction CHF has been documented however echo in 08/2023 showed normal right and left ventricular size and systolic function with normal diastolic function. Hyperlipidemia Hypertension Hypothyroidism Impaired cognition Junctional rhythm Kidney stones Neuropathy Obstructive sleep apnea Patient does not use PAP therapy at nighttime. Osteoarthritis Parkinson disease Restless leg syndrome Type 2 diabetes mellitus Surgical History Surgical History History of bilateral knee arthroplasty History of hysterectomy History of sinus surgery Family History Family History Grandparent Diabetes mellitus Acute myocardial infarction Father Acute myocardial infarction Mother Acute myocardial infarction Social History Social History Social History: Surrogate decision maker: Fly Rondon, . Code status: Full code. Smoking packs per day: 2 Smoking cigarettes per day: 40.0 Years smoked: 40 Smoking pack-years: 80.00 Smoking status: Former smoker Tobacco type: cigarettes Second hand tobacco smoke exposure: Yes Alcohol intake: never Substance use: never Substance use type: does not use Do You Feel Safe in your Home?: Yes Lack of Transportation: YES Lack of Food: Never True Current Housing: I Have Housing Concerned About Future Housing: No Difficulty Paying Gas/Electric Bills: No Difficulty Paying for Meds: No Currently Unemployed: No Education: High School Diploma/GED Difficulty w/ Childcare or Family Care: No Additional living arrangements comments: Resides in [place] with her of over 50 years. They have 3 children. Spiritual care concerns: No Meds Home Medications and Allergies Home Medications Medication Instructions Recorded Confirmed Type carbidopa 25 mg-levodopa 100 mg 3 tablet PO TID 12/10/19 12/29/23 History tablet allopurinol 100 mg tablet 100 mg PO DAILY 12/12/21 12/29/23 History ropinirole 0.5 mg tablet 0.5 mg PO HS 12/12/21 12/29/23 History albuterol sulfate 90 mcg/actuation 2 puff inhalation QID PRN 12/23/21 12/29/23 History aerosol inhaler Shortness Of Breath Or Wheezing gabapentin 100 mg capsule 300 mg PO TID ##0 12/29/21 12/29/23 History pantoprazole 40 mg tablet,delayed 40 mg PO QAM 08/28/22 12/29/23 History release atorvastatin 80 mg tablet 80 mg PO DAILY 09/27/23 12/29/23 History ipratropium 0.5 mg-albuterol 3 mg 3 ml inhalation Q6H PRN Shortness 10/01/23 12/29/23 Rx (2.5 mg base)/3 mL nebulization Of Breath #90 mL soln apixaban 2.5 mg tablet (Eliquis) 2.5 mg PO BID 10/13/23 12/29/23 History bumetanide 1 mg tablet 1 mg PO DAILY 10/13/23 12/29/23 History levothyroxine 25 mcg tablet 25 mcg PO QAM 10/13/23 12/29/23 History losartan 25 mg tablet 25 mg PO DAILY 10/13/23 12/29/23 History metolazone 2.5 mg tablet 2.5 mg PO USEASDIRECTD 10/13/23 12/29/23 History oxcarbazepine 150 mg tablet 75 mg PO BID 10/13/23 12/29/23 History alprazolam 1 mg tablet 1 mg PO TID PRN Anxiety 11/20/23 12/29/23 History methocarbamol 500 mg tablet 500 mg PO TID PRN Muscle/Joint 11/29/23 12/29/23 Rx Pain #10 tabs Allergies Allergy/AdvReac Type Severity Reaction Status Date / Time iodine Allergy Severe Hives Verified 12/29/23 04:35 latex Allergy Severe Hives Verified 12/29/23 04:35 Contrast Media Allergy Mild Hives Uncoded 12/07/23 02:38 Vital Signs Vital Signs - 24 hr 12/29/23 04:32 12/29/23 06:38 12/29/23 06:39 Temperature 97.8 F Pulse Rate 79 95 Respiratory Rate 20 16 Blood Pressure 145/101 H 128/78 Pulse Oximetry 93 95 96 Oxygen Delivery Room Air Nasal Cannula Oxygen Flow Rate 2 12/29/23 09:20 12/29/23 11:16 12/29/23 12:01 Temperature Pulse Rate 102 H 111 H Respiratory Rate 18 20 Blood Pressure 146/57 H 157/58 H 127/23 L Pulse Oximetry 97 96 Oxygen Delivery Oxygen Flow Rate Exam Narrative: GENERAL: alert and awake conversant knows self, in no acute distress. HEAD: Normocephalic, atraumatic. EYES: PERRLA and EOMI. ENT: Nares clear, no rhinorrhea or epistaxis. Mucous membranes moist. NECK: Supple. CHEST: diminished breath sounds bilaterally, No respiratory distress. HEART: Regular rate and rhythm. No murmur heard. Normal peripheral pulses. ABDOMEN: Soft, tenderness to palpation left lower quadrant, nondistended, normal active bowel sounds. EXTREMITIES: Normal range of motion. trace to 1+ edema SKIN: Warm, dry, no rash. NEURO: No focal deficits. Alert and oriented times 1-2 PSYCH: anxious looking H&P: Results Labs Labs: Short CBC 12/29/23 12/29/23 Range/Units 05:17 13:54 WBC 10.0 23.2 H (4.5-10.0) K/mm3 Hgb 7.8 L 8.3 L (12.0-15.0) g/dL Hct 25.9 L 26.1 L (37.0-47.0) % Plt Count 231 227 (150-375) k/mm3 BMP 12/29/23 12/29/23 05:17 13:54 Sodium 138 137 Potassium 4.4 4.4 Chloride 100 101 Carbon Dioxide 31 H 27 BUN 33 H 37 H Creatinine 1.50 H 1.60 H Glucose 190 H 212 H Calcium 9.5 9.3 Liver Function 12/29/23 12/29/23 Range/Units 05:17 13:54 Total Bilirubin 0.6 0.5 (0.2-1.3) mg/dL AST 14 15 (14-36) U/L ALT < 6 L 8 (6-35) U/L Alkaline Phosphatase 156 H 148 H (38-126) U/L Albumin 3.7 3.3 L (3.5-5.1) g/dL Urine 12/29/23 Range/Units 05:17 Urine Color Yellow (Yellow) Urine Appearance Clear (Clear) Urine pH 7.5 (5.0-9.0) Ur Specific [place] 1.014 (1.001-1.035) Urine Protein 2+ H (Negative) mg/dL Urine Glucose (UA) Negative (Negative) mg/dL Assessment and Plan Assessment and plan (1) Diverticulitis: Code(s): K57.92 - Diverticulitis of intestine, part unspecified, without perforation or abscess without bleeding Status: Acute (2) Parkinson disease: Code(s): G20 - Parkinson's disease Status: Chronic (3) Hypertension: Qualifiers: Hypertension type: primary hypertension Qualified Code(s): I10 - Essential (primary) hypertension Code(s): I10 - Essential (primary) hypertension Status: Chronic (4) Hyperlipidemia: Qualifiers: Hyperlipidemia type: mixed hyperlipidemia Qualified Code(s): E78.2 - Mixed hyperlipidemia Code(s): E78.5 - Hyperlipidemia, unspecified Status: Acute (5) Obstructive sleep apnea: Code(s): G47.33 - Obstructive sleep apnea (adult) (pediatric) Status: Chronic (6) Chronic anemia: Code(s): D64.9 - Anemia, unspecified Status: Acute (7) Chronic kidney disease, stage 3: Qualifiers: Chronic kidney disease stage 3 subtype: stage 3a (GFR 45-59) Qualified Code(s): N18.31 - Chronic kidney disease, stage 3a Code(s): N18.30 - Chronic kidney disease, stage 3 unspecified Status: Acute (8) Type 2 diabetes mellitus: Qualifiers: Diabetes mellitus half-way insulin use: with long goods drier use Diabetes mellitus complication status: without complication Qualified Code(s): E11.9 - Type 2 diabetes mellitus without complications; Z79.4 - skilled nursing (current) use of insulin Code(s): E11.9 - Type 2 diabetes mellitus without complications Status: Chronic (9) Restless leg syndrome: Code(s): G25.81 - Restless legs syndrome Status: Acute (10) Altered mental status: Code(s): R41.82 - Altered mental status, unspecified Status: Acute (11) Chronic respiratory failure: Code(s): J96.10 - Chronic respiratory failure, unspecified whether with hypoxia or hypercapnia Status: Acute (12) Congestive heart failure: Qualifiers: Heart failure chronicity: acute on chronic Heart failure type: unspecified Qualified Code(s): I50.9 - Heart failure, unspecified Code(s): I50.9 - Heart failure, unspecified Status: Acute (13) Morbid obesity with BMI of 50.0-59.9, adult: Code(s): E66.01 - Morbid (severe) obesity due to excess calories; Z68.43 - Body mass index [BMI] 50.0-59.9, adult Status: Acute (14) Atrial flutter: Code(s): I48.92 - Unspecified atrial flutter Status: Acute (15) Gout: Code(s): M10.9 - Gout, unspecified Status: Acute (16) Hypothyroidism (acquired): Code(s): E03.9 - Hypothyroidism, unspecified Status: Acute Plan this is a 73-year-old female who presents to the ED with complaint of abdominal pain. Pain has been ongoing for past couple of weeks. Worsened left lower quadrant. Denies any nausea or vomiting. Denies any diarrhea. Patient's has been recently was diagnosed with C diff. On the ED her vitals were stable. Laboratory evaluation showed WBC of 10 hemoglobin is 7.8 creatinine 1.5 which is close to her baseline level. Lactic acid was elevated at 3.2 with IV fluid resuscitation under come down to 1.3. LFTs were normal. Urinalysis was negative for infection. CT abdomen pelvis with findings suspicious for segmental area of luminal narrowing and wall thickening involving the mid to distal descending colon with minimal adjacent inflammatory change. Upstream distended stool-filled large bowel suggesting element of at least partial large bowel is obstruction. Findings at the area of luminal narrowing could reflect colitis and/or postinflammatory stricture versus possibility of infiltrating neoplasm. Consi chela colonoscopy she is admitted in this setting for further treatment. Altered mental status: Will get CT head to further evaluate. Check ABG. Blood sugar was okay. Use sliding scale Parkinson's disease Hypertension Hyperlipidemia Congestive heart failure chronic diastolic On Bumex at hold Hypothyroidism Type 2 diabetes mellitus CKD stage 3 Chronic anemia COPD GERD History of peptic ulcers Anxiety depression history of bipolar disorder Chronic lower extremity edema Sleep apnea not on CPAP history of atrial fibrillation controlled on amiodarone and Eliquis Chronic respiratory failure on home oxygen 2 L at rest 3 L with activity DVT prophylaxis on apixaban Code status full code Hospitalist [facility] Advance Care Plan I have confirmed that the patient's Advanced Care Plan is present, code status is documented, or surrogate decision maker is listed in patient medical record.: Yes Medication Reconciliation I have utilized all available resources to obtain, update and review the patients current medications (includes all prescriptions, OTC, herbals, cannabis, and nutritional supplements).: Yes
[2023-12-29] MEDS: PIPERACILLN/TAZ 3.375GM/NS50ML 3.375 GM/50 ML BAG IVPB (14:50)
[2023-12-29] MEDS: SODIUM CHLORIDE 0.9% IV 1,000 ML 50 ML IV CONT (14:50)
[2023-12-29 14:52] LABS: Alveolar/Arterial O2 Gradient 94.1 mmHg; Base Excess ABG -0.5 mEq/l (+/-2.0); Device NASAL CANNULA; Fractional Inspired Oxygen 28 %; HCO3 ABG 23.4 mEq/l (22.0-26.0); Modified Allen's Test Pass; Oxygen Content ABG 11.2 %vol (16.0-22.0); Oxygen Saturation ABG 93.5 % (95.0-100.0); Oxyhemoglobin 91.9 % THb (90.0-100.0); PO2 ABG 64.2 mmHg (80.0-100.0); PO2 FiO2 Ratio Arterial Blood 2.29 %; Site Drawn RIGHT RADIAL; Total Hemoglobin 8.6 g/dL (12.0-18.0); pH ABG 7.443 (7.350-7.450)
[2023-12-29 15:20] LABS: Hemoglobin A1C 5.5 % (<5.7)
[2023-12-29] MEDS: ACETAMINOPHEN 325 MG TABLET 650 MG PO (15:34)
[2023-12-29 17:00] LABS: Glucose Point of Care 196 mg/dl (65-105)
[2023-12-29 17:03] LABS: Glucose Point of Care 217 mg/dl (65-105)
[2023-12-29] MEDS: CARBIDOPA/LEVODOPA 25/100 MG TABLET 3 TABLET PO (17:20)
[2023-12-29] MEDS: GABAPENTIN 300 MG CAPSULE PO (17:20)
[2023-12-29] MEDS: OXCARBAZEPINE 1 EACH PO (17:21)
[2023-12-29] MEDS: MORPHINE SULFATE (*CRX) 2 MG/ML INJ IV PUSH (17:41)
--- NOTE | 2023-12-29 19:35 | PC.NURSE ---
This RN was approached by NICK Merino in [facility] regarding patient that is in distress. NICK Merino assisted in getting patient to STAT CT quicker. This RN had called CT prior to see approx. wait time. Justino in CT stated there were still a few ahead of patient. With the assistance from electronic health records specialist Mee, patient was taken to CT and met by NICK Merino in exam room. Patient was scanned and returned to room. Dr. Zamudio was called and notified about case.
--- NOTE | 2023-12-29 20:20 | PC.NURSE ---
Patient arrived via bed to ICU 5, patient moaning, IVF running via peripheral IV site, Angelique Joel, NICK, Tonya, RN Director Of Consumer Marketing and Malka Watkins RN at bedside. Orders received.
--- NOTE | 2023-12-29 20:22 | P.PNAN_ITS ---
Anes - Initial Pre Proc Eval Date/Time: 12/29/23 20:22 Surgeon: India Wellington MD Pre Op Diagnosis: Diverticulitis Patient Data Age: 73 Gender: F Height: 1.6 m Weight: 121 kg Last Vital Signs Temp 37.2 C 12/29/23 17:35 Pulse 91 12/29/23 17:35 Resp 22 H 12/29/23 14:21 BP 80/40 L 12/29/23 20:13 Pulse Ox 96 12/29/23 15:30 O2 Del Method Nasal Cannula 12/29/23 13:30 O2 Flow Rate 2 12/29/23 13:30 Allergies Allergy/AdvReac Type Severity Reaction Status Date / Time iodine Allergy Severe Hives Verified 12/29/23 04:35 latex Allergy Severe Hives Verified 12/29/23 04:35 Contrast Media Allergy Mild Hives Uncoded 12/07/23 02:38 Home Medications Medication Instructions Recorded Confirmed Type carbidopa 25 mg-levodopa 100 mg 3 tablet PO TID 12/10/19 12/29/23 History tablet allopurinol 100 mg tablet 100 mg PO DAILY 12/12/21 12/29/23 History ropinirole 0.5 mg tablet 0.5 mg PO HS 12/12/21 12/29/23 History albuterol sulfate 90 mcg/actuation 2 puff inhalation QID PRN 12/23/21 12/29/23 History aerosol inhaler Shortness Of Breath Or Wheezing gabapentin 100 mg capsule 300 mg PO TID ##0 12/29/21 12/29/23 History pantoprazole 40 mg tablet,delayed 40 mg PO QAM 08/28/22 12/29/23 History release atorvastatin 80 mg tablet 80 mg PO DAILY 09/27/23 12/29/23 History ipratropium 0.5 mg-albuterol 3 mg 3 ml inhalation Q6H PRN Shortness 10/01/23 12/29/23 Rx (2.5 mg base)/3 mL nebulization Of Breath #90 mL soln apixaban 2.5 mg tablet (Eliquis) 2.5 mg PO BID 10/13/23 12/29/23 History bumetanide 1 mg tablet 1 mg PO DAILY 10/13/23 12/29/23 History levothyroxine 25 mcg tablet 25 mcg PO QAM 10/13/23 12/29/23 History losartan 25 mg tablet 25 mg PO DAILY 10/13/23 12/29/23 History metolazone 2.5 mg tablet 2.5 mg PO USEASDIRECTD 10/13/23 12/29/23 History oxcarbazepine 150 mg tablet 75 mg PO BID 10/13/23 12/29/23 History alprazolam 1 mg tablet 1 mg PO TID PRN Anxiety 11/20/23 12/29/23 History methocarbamol 500 mg tablet 500 mg PO TID PRN Muscle/Joint 11/29/23 12/29/23 Rx Pain #10 tabs Laboratory Tests 12/29/23 12/29/23 12/29/23 05:17 06:44 10:46 WBC 10.0 K/mm3 (4.5-10.0) RBC 2.56 L M/mm3 (4.2-5.4) Hgb 7.8 L g/dL (12.0-15.0) Hct 25.9 L % (37.0-47.0) MCV 101.2 H fl (80-100) MCH 30.5 pg (26-34) MCHC 30.1 L g/dl (32-36) RDW 16.8 H % (11.5-14.5) Plt Count 231 k/mm3 (150-375) MPV 11.3 H fl (7.4-10.4) Immature Gran % (Auto) 0.6 H % (0-0.5) Neut % (Auto) 81.2 H % (45.5-73.1) Lymph % (Auto) 6.1 L % (18.3-44.2) Amelia % (Auto) 4.8 % (2.6-8.5) Eos % (Auto) 6.9 H % (0-4.4) Baso % (Auto) 0.4 % (0.2-1.2) Lymph # (Auto) 0.61 L K/mm3 (0.9-3.2) Amelia # (Auto) 0.5 K/mm3 (0.1-0.6) Eos # (Auto) 0.7 H K/mm3 (0-0.3) Baso # (Auto) 0.0 K/mm3 (0.0-0.1) Abs Immat Gran (auto) 0.06 H K/mm3 (0.00-0.031) Absolute Neuts (auto) 8.1 H K/mm3 (1.3-6.7) Absolute Nucleated RBC 0.000 K/mm3 (0.0-0.012) Nucleated RBC % 0.0 % (0.0-0.2) Platelet Estimate Stomatocytes Schistocytes Puncture Site ABG pH ABG pCO2 ABG pO2 ABG PO2/FiO2 Ratio ABG HCO3 ABG O2 Saturation ABG O2 Content ABG Base Excess A-a Gradient Oxyhemoglobin Total Hemoglobin O2 Delivery Device O2 Liters/Min FiO2 Sodium 138 mmol/L (137-145) Potassium 4.4 mmol/L (3.4-5.0) Chloride 100 mmol/L (98-107) Carbon Dioxide 31 H mmol/L (22-30) Anion Gap 7 mmol/L (4-12) BUN 33 H mg/dL (7-17) Creatinine 1.50 H mg/dL (0.7-1.0) Estim Creat Clear Calc 38 ml/min Estimated GFR 34 L (59 - ) Glucose 190 H mg/dL (65-110) POC Capillary Glucose Hemoglobin A1c Lactic Acid 3.2 H mmol/L 1.3 mmol/L (0.7-2.0) (0.7-2.0) Calcium 9.5 mg/dL (8.4-10.2) Total Bilirubin 0.6 mg/dL (0.2-1.3) AST 14 U/L (14-36) ALT < 6 L U/L (6-35) Alkaline Phosphatase 156 H U/L (38-126) Total Protein 7.0 g/dL (6.3-8.2) Albumin 3.7 g/dL (3.5-5.1) Lipase 127 U/L (23-300) Urine Color Yellow (Yellow) Urine Appearance Clear (Clear) Urine pH 7.5 (5.0-9.0) Ur Specific [place] 1.014 (1.001-1.035) Urine Protein 2+ H mg/dL (Negative) Urine Glucose (UA) Negative mg/dL (Negative) Urine Ketones Negative mg/dL (Negative) Ur Blood (Man) Negative (Negative) Urine Nitrate Negative (Negative) Urine Bilirubin Negative (Negative) Urine Urobilinogen 0.2 mg/dL (<2.0) Add Ur Microanalysis Reviewed Leukocyte Esterase Rfl Negative NUBIA/UL (Negative) Urine RBC 0-2 /hpf (0-2) Urine WBC 0-5 /hpf (0-3) Ur Squamous Epith Cells None seen /hpf (Few) Urine Bacteria None seen /hpf Urine Casts 0-2 12/29/23 12/29/23 12/29/23 13:29 13:54 14:42 WBC 23.2 H K/mm3 (4.5-10.0) RBC 2.64 L M/mm3 (4.2-5.4) Hgb 8.3 L g/dL (12.0-15.0) Hct 26.1 L % (37.0-47.0) MCV 98.9 fl (80-100) MCH 31.4 pg (26-34) MCHC 31.8 L g/dl (32-36) RDW 17.1 H % (11.5-14.5) Plt Count 227 k/mm3 (150-375) MPV 10.2 fl (7.4-10.4) Immature Gran % (Auto) 0.4 % (0-0.5) Neut % (Auto) 95.0 H % (45.5-73.1) Lymph % (Auto) 0.6 L % (18.3-44.2) Amelia % (Auto) 3.7 % (2.6-8.5) Eos % (Auto) 0.0 % (0-4.4) Baso % (Auto) 0.3 % (0.2-1.2) Lymph # (Auto) 0.13 L K/mm3 (0.9-3.2) Amelia # (Auto) 0.9 H K/mm3 (0.1-0.6) Eos # (Auto) 0.0 K/mm3 (0-0.3) Baso # (Auto) 0.1 K/mm3 (0.0-0.1) Abs Immat Gran (auto) 0.09 H K/mm3 (0.00-0.031) Absolute Neuts (auto) 22.1 H K/mm3 (1.3-6.7) Absolute Nucleated RBC 0.000 K/mm3 (0.0-0.012) Nucleated RBC % 0.0 % (0.0-0.2) Platelet Estimate Adequate (Adequate) Stomatocytes 1+ Schistocytes None seen Puncture Site Right radial ABG pH 7.443 (7.350-7.450) ABG pCO2 35.0 mmHg (35.0-45.0) ABG pO2 64.2 L mmHg (80.0-100.0) ABG PO2/FiO2 Ratio 2.29 % ABG HCO3 23.4 mEq/l (22.0-26.0) ABG O2 Saturation 93.5 L % (95.0-100.0) ABG O2 Content 11.2 L %vol (16.0-22.0) ABG Base Excess -0.5 mEq/l (+/-2.0) A-a Gradient 94.1 mmHg Oxyhemoglobin 91.9 % THb (90.0-100.0) Total Hemoglobin 8.6 L g/dL (12.0-18.0) O2 Delivery Device Nasal cannula O2 Liters/Min 2.0 LPM FiO2 28 % Sodium 137 mmol/L (137-145) Potassium 4.4 mmol/L (3.4-5.0) Chloride 101 mmol/L (98-107) Carbon Dioxide 27 mmol/L (22-30) Anion Gap 9 mmol/L (4-12) BUN 37 H mg/dL (7-17) Creatinine 1.60 H mg/dL (0.7-1.0) Estim Creat Clear Calc 35 ml/min Estimated GFR 32 L (59 - ) Glucose 212 H mg/dL (65-110) POC Capillary Glucose 217 H mg/dl (65-105) Hemoglobin A1c Lactic Acid 2.5 H mmol/L (0.7-2.0) Calcium 9.3 mg/dL (8.4-10.2) Total Bilirubin 0.5 mg/dL (0.2-1.3) AST 15 U/L (14-36) ALT 8 U/L (6-35) Alkaline Phosphatase 148 H U/L (38-126) Total Protein 6.0 L g/dL (6.3-8.2) Albumin 3.3 L g/dL (3.5-5.1) Lipase Urine Color Urine Appearance Urine pH Ur Specific [place] Urine Protein Urine Glucose (UA) Urine Ketones Ur Blood (Man) Urine Nitrate Urine Bilirubin Urine Urobilinogen Add Ur Microanalysis Leukocyte Esterase Rfl Urine RBC Urine WBC Ur Squamous Epith Cells Urine Bacteria Urine Casts 12/29/23 12/29/23 12/29/23 14:56 16:57 20:11 WBC RBC Hgb Hct MCV MCH MCHC RDW Plt Count MPV Immature Gran % (Auto) Neut % (Auto) Lymph % (Auto) Amelia % (Auto) Eos % (Auto) Baso % (Auto) Lymph # (Auto) Amelia # (Auto) Eos # (Auto) Baso # (Auto) Abs Immat Gran (auto) Absolute Neuts (auto) Absolute Nucleated RBC Nucleated RBC % Platelet Estimate Stomatocytes Schistocytes Puncture Site ABG pH ABG pCO2 ABG pO2 ABG PO2/FiO2 Ratio ABG HCO3 ABG O2 Saturation ABG O2 Content ABG Base Excess A-a Gradient Oxyhemoglobin Total Hemoglobin O2 Delivery Device O2 Liters/Min FiO2 Sodium Potassium Chloride Carbon Dioxide Anion Gap BUN Creatinine Estim Creat Clear Calc Estimated GFR Glucose POC Capillary Glucose 196 H mg/dl (65-105) Hemoglobin A1c 5.5 % (<5.7) Lactic Acid Pending Calcium Total Bilirubin AST ALT Alkaline Phosphatase Total Protein Albumin Lipase Urine Color Urine Appearance Urine pH Ur Specific [place] Urine Protein Urine Glucose (UA) Urine Ketones Ur Blood (Man) Urine Nitrate Urine Bilirubin Urine Urobilinogen Add Ur Microanalysis Leukocyte Esterase Rfl Urine RBC Urine WBC Ur Squamous Epith Cells Urine Bacteria Urine Casts Patient hx anesthesia problems: none Family hx anesthesia problems: none Results Review: All pre-operative results and documents have been reviewed as part of the pre- operative evaluation. [facility] Past Medical History Medical History Anxiety Bipolar 1 disorder BMI greater than 40 Chronic anemia Chronic kidney disease, stage 3 Baseline creatinine ranges between 1.2 and 1.50. Chronic obstructive pulmonary disease Depression Diabetic polyneuropathy Gastroesophageal reflux disease GI bleed (01/2010) Secondary to peptic ulcer. Heart failure with preserved ejection fraction CHF has been documented however echo in 08/2023 showed normal right and left ventricular size and systolic function with normal diastolic function. Hyperlipidemia Hypertension Hypothyroidism Impaired cognition Junctional rhythm Kidney stones Neuropathy Obstructive sleep apnea Patient does not use PAP therapy at nighttime. Osteoarthritis Parkinson disease Restless leg syndrome Type 2 diabetes mellitus Surgical History Surgical History History of bilateral knee arthroplasty History of hysterectomy History of sinus surgery Family History Family History Grandparent Diabetes mellitus Acute myocardial infarction Father Acute myocardial infarction Mother Acute myocardial infarction Social History Social History Social History: Surrogate decision maker: Fly Rondon, . Code status: Full code. Smoking packs per day: 2 Smoking cigarettes per day: 40.0 Years smoked: 40 Smoking pack-years: 80.00 Smoking status: Former smoker Tobacco type: cigarettes Second hand tobacco smoke exposure: Yes Alcohol intake: never Substance use: never Substance use type: does not use Do You Feel Safe in your Home?: Yes Lack of Transportation: YES Lack of Food: Never True Current Housing: I Have Housing Concerned About Future Housing: No Difficulty Paying Gas/Electric Bills: No Difficulty Paying for Meds: No Currently Unemployed: No Education: High School Diploma/GED Difficulty w/ Childcare or Family Care: No Additional living arrangements comments: Resides in [place] with her of over 50 years. They have 3 children. Spiritual care concerns: No Anes - Eval Final PreProcedure Day of Procedure 12/29/23 20:22 Patient weight: morbidly obese Heart: regular rate and rhythm Lungs: decreased breath sounds Airway: Mallampati scale class II Neurological: other (alert) Last oral intake: >/= 8 hours ASA classification: IV Emergent: yes Anesthetic plan: proceed Anesthesia type and monitoring: general ETT Results Review: All pre-operative results and documents have been reviewed as part of the pre- operative evaluation. Informed Consent: The patient's anesthetic plan and its attendant risks and benefits were discussed with the patient/family/POA. Questions were solicited and answers provided to the satisfaction of the patient/family/POA.
--- NOTE | 2023-12-29 20:28 | PM.CCN ---
Critical Care Event Note Summary Code activated: No Narrative: 73 y/o F presented here with left lower quadrant pain and CT showed area suspicious for segmental area of luminal narrowing and wall thickening involving the mid to distal descending colon with minimal adjacent inflammatory change. Upstream distended, stool filled large bowel suggests an element of at least partial large bowel obstruction. Findings at the care of the luminal narrowing could reflect colitis and/or postinflammatory stricture versus possibility of infiltrating neoplasm. Initially lab work showed new leukocytosis and elevated lactic at 3.2. Reflex lactic was 1.3 post fluid resuscitation with XX. On admission to the floor, the bedside RN was concerned about the patient's appearance. She reported to me that her pallor was poor and the pain in her abdomen had become severe. Rounding physician was notified. Repeat CT of the abdomen/pelvis, lactic, and chemistry was ordered/repeated. Which showed elevation in WBC at 23.2. Lactic now elevated again at 2.5. This was discussed with me by the bedside RN around 6:45 p.m. Call made to Radiology to expedite CT. While awaiting scan, general surgery was contacted and consult placed. Discussed case with Rbob PURCELL. Surgeon to the bedside to evaluate patient. Radiologist called with a critical results at 7:[address] abdomen/pelvis concerning for: 1. Gallbladder hydrops, may be secondary to fasting or obstruction. 2. New proximal jejunal dilation with wall thickening, may represent ileus or obstruction. Ischemia should also be considered in the differential. 3. Persistent large bowel obstruction, transition point at the splenic flexure, with pneumatosis, adjacent contained free air versus intravascular gas, and increasing inflammatory changes concerning for ischemia. Call made to Robb PURCELL to notify him of these results. After discussion, patient was transferred to the ICU for line placement, pressors, and NG tube. Case discussed with microfilm machine operator, Ottoniel PURCELL, prior to transfer. Fluid bolus in interim. Plan for open laparotomy this evening with general surgery. Patient on Eliquis, 3 PRBC units ordered and type and screen ordered. Foster PURCELL at the bedside placing central line. Phenylephrine gtt initiated. Reflex lactic 2.5 -> 7.6. Exam , female, very ill-appearing/toxic appearance, obese body habitus. Trevino to pale pallor intermittently. Diaphoretic. In distress. Mild tachycardia in the low 100s. Lung sounds clear. Abdomen with distant/hypoactive bowel sounds. Exquisitely tender in the lower abdomen more so than the upper abdomen. Abdomen remains soft. This case had a high probability of a clinically significant, sudden, or life threatening deterioration of this patient's condition which required my full and direct attention, intervention and personal management. Critical care time: 75 - 104 mins
[2023-12-29] MEDS: NOREPINEPHRINE 8 MG/D5W 250 ML 8 MG/250 ML BAG 18.75 MG IV CONT (20:30)
[2023-12-29 20:40] LABS: Lactic Acid Reflex 7.6 mmol/L (0.7-2.0)
[2023-12-29] MEDS: MIDAZOLAM HCL (*CRX) 2 MG/2 ML VIAL IV PUSH ×2 (20:45→21:26)
--- NOTE | 2023-12-29 21:37 | PM.CNGS ---
Assessment and Plan Assessment and plan (1) Colonic obstruction: Code(s): K56.609 - Unspecified intestinal obstruction, unspecified as to partial versus complete obstruction Status: Acute Assessment and Plan: Appears to have colonic obstruction. By my review of the CT scan this seems to be in the sigmoid colon but the report on the 2nd CT scan shows the splenic flexure. Depending on intraoperative findings patient will need colostomy for diversion and relief. (2) Ischemia, bowel: Code(s): K55.9 - Vascular disorder of intestine, unspecified Status: Acute Assessment and Plan: Noted to have pneumatosis on last CT scan. Her rapid deterioration as well as increasing lactate very concerning for bowel ischemia and intestine. Proceeding urgently with laparotomy for possible bowel resection and possible colostomy. I spoke with patient's daughter prior to surgery and explained that she is extremely ill. Explained that she probably has colon obstruction and bowel ischemia. Without surgery she may well not make it through until tomorrow morning. Even with surgery her prognosis is very poor. Patient's is home with C difficile and cannot leave the house. Patient's daughter has spoken with him and both want to proceed with surgery if that is the only option with the potential for her to survive. We will go ahead emergently today. (3) Acidosis, lactic: Code(s): E87.20 - Acidosis, unspecified Status: Acute Assessment and Plan: Lactic acid up to 7.62 hours ago. Very ominous sign (4) Chronic obstructive pulmonary disease: Qualifiers: COPD type: unspecified COPD Qualified Code(s): J44.9 - Chronic obstructive pulmonary disease, unspecified Code(s): J44.9 - Chronic obstructive pulmonary disease, unspecified Status: Chronic (5) Obstructive sleep apnea: Code(s): G47.33 - Obstructive sleep apnea (adult) (pediatric) Status: Chronic (6) Chronic kidney disease, stage 3: Qualifiers: Chronic kidney disease stage 3 subtype: stage 3a (GFR 45-59) Qualified Code(s): N18.31 - Chronic kidney disease, stage 3a Code(s): N18.30 - Chronic kidney disease, stage 3 unspecified Status: Acute (7) Septic shock with acute organ dysfunction due to anaerobic bacteria: Code(s): A41.4 - Sepsis due to anaerobes; R65.21 - Severe sepsis with septic shock Status: Acute (8) Parkinson disease: Code(s): G20 - Parkinson's disease Status: Chronic History of Present Illness Consult details Consult date: 12/29/23 Reason for consult: abdominal pain Requesting physician: Angelique Petit APRN Narrative: Patient is a 73-year-old woman who was admitted earlier today in the morning after having had left lower quadrant pain for several days. She noticed the pain was worse and was more painful with movement. In the emergency room[place] [address] and was anemic. It appears she is chronically anemic. She had an elevated lactate of 3.2 but with fluids and treatment this had decreased to 1.34 hours later. Her diagnosis on admission was narrowing and possible distal colonic obstruction from the sigmoid colon area. She is known to have diverticulosis from her last colonoscopy. The inflammation suggested she may have diverticulitis as well as a stricture or narrowing at this time. About 130 or 2:00 a.m. this afternoon she had worsening abdominal pain of the severe nature. She had a repeat CBC with a white count now of 23,000. Her lactate was going back up. Her pain was very severe and diffuse. Patient was ordered to have a repeat CT scan. I was called about the patient rather urgently and saw her as she just was moved to the CT scan platform. She was having nearly inconsolable pain and pretty much unable to talk coherently. Her abdomen was diffusely tender and painful diffusely as well. She had no bowel sounds. She went on to have the CT scan. I looked at the CT scan both on the view were in the CT scan area as well as on a computer. It appeared she had diffuse retention of stool throughout her colon. I was not able to see any free air. The CT report came back and was read as showing persistent distal colonic obstruction with now pneumatosis or bowel ischemia. I spoke with the patient's daughter and discussed the situation. Patient does seem to be deteriorating and is in need of urgent surgery. She is taken to surgery this evening emergently for exploration, possible bowel resection, possible colostomy. Review of Systems Review of Systems: ROS unobtainable: Yes unobtainable due to medical condition PMFSH Past Medical History Medical History Anxiety Bipolar 1 disorder BMI greater than 40 Chronic anemia Chronic kidney disease, stage 3 Baseline creatinine ranges between 1.2 and 1.50. Chronic obstructive pulmonary disease Depression Diabetic polyneuropathy Gastroesophageal reflux disease GI bleed (01/2010) Secondary to peptic ulcer. Heart failure with preserved ejection fraction CHF has been documented however echo in 08/2023 showed normal right and left ventricular size and systolic function with normal diastolic function. Hyperlipidemia Hypertension Hypothyroidism Impaired cognition Junctional rhythm Kidney stones Neuropathy Obstructive sleep apnea Patient does not use PAP therapy at nighttime. Osteoarthritis Parkinson disease Restless leg syndrome Type 2 diabetes mellitus Surgical History Surgical History History of bilateral knee arthroplasty History of hysterectomy History of sinus surgery Family History Family History Grandparent Diabetes mellitus Acute myocardial infarction Father Acute myocardial infarction Mother Acute myocardial infarction Social History Social History Social History: Surrogate decision maker: Fly Rondon, . Code status: Full code. Smoking packs per day: 2 Smoking cigarettes per day: 40.0 Years smoked: 40 Smoking pack-years: 80.00 Smoking status: Former smoker Tobacco type: cigarettes Second hand tobacco smoke exposure: Yes Alcohol intake: never Substance use: never Substance use type: does not use Do You Feel Safe in your Home?: Yes Lack of Transportation: YES Lack of Food: Never True Current Housing: I Have Housing Concerned About Future Housing: No Difficulty Paying Gas/Electric Bills: No Difficulty Paying for Meds: No Currently Unemployed: No Education: High School Diploma/GED Difficulty w/ Childcare or Family Care: No Additional living arrangements comments: Resides in [place] with her of over 50 years. They have 3 children. Spiritual care concerns: No Meds Home Medications and Allergies Home Medications Medication Instructions Recorded Confirmed Type carbidopa 25 mg-levodopa 100 mg 3 tablet PO TID 12/10/19 12/29/23 History tablet allopurinol 100 mg tablet 100 mg PO DAILY 12/12/21 12/29/23 History ropinirole 0.5 mg tablet 0.5 mg PO HS 12/12/21 12/29/23 History albuterol sulfate 90 mcg/actuation 2 puff inhalation QID PRN 12/23/21 12/29/23 History aerosol inhaler Shortness Of Breath Or Wheezing gabapentin 100 mg capsule 300 mg PO TID ##0 12/29/21 12/29/23 History pantoprazole 40 mg tablet,delayed 40 mg PO QAM 08/28/22 12/29/23 History release atorvastatin 80 mg tablet 80 mg PO DAILY 09/27/23 12/29/23 History ipratropium 0.5 mg-albuterol 3 mg 3 ml inhalation Q6H PRN Shortness 10/01/23 12/29/23 Rx (2.5 mg base)/3 mL nebulization Of Breath #90 mL soln apixaban 2.5 mg tablet (Eliquis) 2.5 mg PO BID 10/13/23 12/29/23 History bumetanide 1 mg tablet 1 mg PO DAILY 10/13/23 12/29/23 History levothyroxine 25 mcg tablet 25 mcg PO QAM 10/13/23 12/29/23 History losartan 25 mg tablet 25 mg PO DAILY 10/13/23 12/29/23 History metolazone 2.5 mg tablet 2.5 mg PO USEASDIRECTD 10/13/23 12/29/23 History oxcarbazepine 150 mg tablet 75 mg PO BID 10/13/23 12/29/23 History alprazolam 1 mg tablet 1 mg PO TID PRN Anxiety 11/20/23 12/29/23 History methocarbamol 500 mg tablet 500 mg PO TID PRN Muscle/Joint 11/29/23 12/29/23 Rx Pain #10 tabs Allergies Allergy/AdvReac Type Severity Reaction Status Date / Time iodine Allergy Severe Hives Verified 12/29/23 04:35 latex Allergy Severe Hives Verified 12/29/23 04:35 Contrast Media Allergy Mild Hives Uncoded 12/07/23 02:38 Vital Signs Vital Signs - 24 hr 12/29/23 04:32 12/29/23 06:38 12/29/23 06:39 Temperature 36.6 C Pulse Rate 79 95 Respiratory Rate 20 16 Blood Pressure 145/101 H 128/78 Pulse Oximetry 93 95 96 Oxygen Delivery Room Air Nasal Cannula Oxygen Flow Rate 2 12/29/23 09:20 12/29/23 11:16 12/29/23 12:01 Temperature Pulse Rate 102 H 111 H Respiratory Rate 18 20 Blood Pressure 146/57 H 157/58 H 127/23 L Pulse Oximetry 97 96 Oxygen Delivery Oxygen Flow Rate 12/29/23 14:00 12/29/23 15:33 12/29/23 15:34 Temperature 36.6 C 39.2 C H 39.2 C H Pulse Rate 98 Respiratory Rate 22 H Blood Pressure 131/42 L Pulse Oximetry 95 Oxygen Delivery Oxygen Flow Rate 12/29/23 13:30 12/29/23 16:34 12/29/23 15:30 Temperature 38.7 C H Pulse Rate 90 Respiratory Rate Blood Pressure 109/39 L Pulse Oximetry 92 96 Oxygen Delivery Nasal Cannula Oxygen Flow Rate 2 12/29/23 16:00 12/29/23 16:30 12/29/23 17:35 Temperature 37.2 C Pulse Rate 90 91 Respiratory Rate Blood Pressure 104/42 L 116/32 L Pulse Oximetry Oxygen Delivery Oxygen Flow Rate 12/29/23 19:45 12/29/23 20:13 12/29/23 19:40 Temperature 36.9 C Pulse Rate 132 H Respiratory Rate 26 H Blood Pressure 81/36 L 80/40 L 81/36 L Pulse Oximetry 96 Oxygen Delivery Oxygen Flow Rate 12/29/23 14:21 Temperature 36.6 C Pulse Rate 98 Respiratory Rate 22 H Blood Pressure 131/42 L Pulse Oximetry 95 Oxygen Delivery Oxygen Flow Rate Exam Narrative: Blood pressure 80s, heart rate 130s, respirations in the 20s. O2 sats in the 90s on oxygen Const: General: awake, acute distress, anxious, uncomfortable and obese Nutritional Appearance: obese HENMT: Head: normocephalic and atraumatic Mouth: Yes Normal oral and palatal mucosa present Neck: Neck: normal visual inspection, no lymphadenopathy and nontender Resp: Effort & Inspection: not able to speak in complete sentences, labored, no stridor and tachypneic Auscultation: clear to auscultation bilaterally Cardio: Rate: regular rate Rhythm: regular rhythm Heart sounds: no gallops, no murmurs and no rubs GI: Inspection: distended, obesity, scar and visible herniation (Small umbilical) GI Palp: Yes Firmness to palpation present (GI), Yes Tenderness to palpation present (GI), Yes Guarding due to palpation present (GI), No Hepatomegaly present, No Splenomegaly present, Yes Hernia present umbilical (Reducible) < 3 cm, No Palpable mass present and Yes Rebound tenderness present Auscultation: absent bowel sounds Skin: Lesions: no lesions Rashes: no rashes Neuro: General: no focal motor deficits and CN's II-XI intact bilaterally Cranial nerves: Yes Equal, round and reactive pupils present, Yes Bilaterally intact EOM present, Yes facial symmetry and Yes Midline tongue present Speech: normal speech Motor exam (neuro): 5/5 motor strength present throughout and Motor abnormalities not present Extrem: General: no clubbing, cyanosis or edema and edema Psych: Speech and movement: Restless speech present Affect: Anxious affect present Attitude: cooperative Insight: Limited insight present (Psych) Judgement: Poor judgement present (Psych) Results Labs 12/29/23 13:54 12/29/23 13:54 Labs: Abnormal lab results 12/29/23 12/29/23 12/29/23 Range/Units 05:17 06:44 13:29 WBC (4.5-10.0) K/mm3 RBC 2.56 L (4.2-5.4) M/mm3 Hgb 7.8 L (12.0-15.0) g/dL Hct 25.9 L (37.0-47.0) % MCV 101.2 H (80-100) fl MCHC 30.1 L (32-36) g/dl RDW 16.8 H (11.5-14.5) % MPV 11.3 H (7.4-10.4) fl Immature Gran % (Auto) 0.6 H (0-0.5) % Neut % (Auto) 81.2 H (45.5-73.1) % Lymph % (Auto) 6.1 L (18.3-44.2) % Eos % (Auto) 6.9 H (0-4.4) % Lymph # (Auto) 0.61 L (0.9-3.2) K/mm3 [place] # (Auto) (0.1-0.6) K/mm3 Eos # (Auto) 0.7 H (0-0.3) K/mm3 Abs Immat Gran (auto) 0.06 H (0.00-0.031) K/mm3 Absolute Neuts (auto) 8.1 H (1.3-6.7) K/mm3 ABG pO2 (80.0-100.0) mmHg ABG O2 Saturation (95.0-100.0) % ABG O2 Content (16.0-22.0) %vol Total Hemoglobin (12.0-18.0) g/dL Carbon Dioxide 31 H (22-30) mmol/L BUN 33 H (7-17) mg/dL Creatinine 1.50 H (0.7-1.0) mg/dL Estimated GFR 34 L (59 - ) Glucose 190 H (65-110) mg/dL POC Capillary Glucose 217 H (65-105) mg/dl Lactic Acid 3.2 H (0.7-2.0) mmol/L ALT < 6 L (6-35) U/L Alkaline Phosphatase 156 H (38-126) U/L Total Protein (6.3-8.2) g/dL Albumin (3.5-5.1) g/dL Urine Protein 2+ H (Negative) mg/dL 12/29/23 12/29/23 12/29/23 Range/Units 13:54 14:42 16:57 WBC 23.2 H (4.5-10.0) K/mm3 RBC 2.64 L (4.2-5.4) M/mm3 Hgb 8.3 L (12.0-15.0) g/dL Hct 26.1 L (37.0-47.0) % MCV (80-100) fl MCHC 31.8 L (32-36) g/dl RDW 17.1 H (11.5-14.5) % MPV (7.4-10.4) fl Immature Gran % (Auto) (0-0.5) % Neut % (Auto) 95.0 H (45.5-73.1) % Lymph % (Auto) 0.6 L (18.3-44.2) % Eos % (Auto) (0-4.4) % Lymph # (Auto) 0.13 L (0.9-3.2) K/mm3 [place] # (Auto) 0.9 H (0.1-0.6) K/mm3 Eos # (Auto) (0-0.3) K/mm3 Abs Immat Gran (auto) 0.09 H (0.00-0.031) K/mm3 Absolute Neuts (auto) 22.1 H (1.3-6.7) K/mm3 ABG pO2 64.2 L (80.0-100.0) mmHg ABG O2 Saturation 93.5 L (95.0-100.0) % ABG O2 Content 11.2 L (16.0-22.0) %vol Total Hemoglobin 8.6 L (12.0-18.0) g/dL Carbon Dioxide (22-30) mmol/L BUN 37 H (7-17) mg/dL Creatinine 1.60 H (0.7-1.0) mg/dL Estimated GFR 32 L (59 - ) Glucose 212 H (65-110) mg/dL POC Capillary Glucose 196 H (65-105) mg/dl Lactic Acid 2.5 H (0.7-2.0) mmol/L ALT (6-35) U/L Alkaline Phosphatase 148 H (38-126) U/L Total Protein 6.0 L (6.3-8.2) g/dL Albumin 3.3 L (3.5-5.1) g/dL Urine Protein (Negative) mg/dL 12/29/23 Range/Units 20:11 WBC (4.5-10.0) K/mm3 RBC (4.2-5.4) M/mm3 Hgb (12.0-15.0) g/dL Hct (37.0-47.0) % MCV (80-100) fl MCHC (32-36) g/dl RDW (11.5-14.5) % MPV (7.4-10.4) fl Immature Gran % (Auto) (0-0.5) % Neut % (Auto) (45.5-73.1) % Lymph % (Auto) (18.3-44.2) % Eos % (Auto) (0-4.4) % Lymph # (Auto) (0.9-3.2) K/mm3 [place] # (Auto) (0.1-0.6) K/mm3 Eos # (Auto) (0-0.3) K/mm3 Abs Immat Gran (auto) (0.00-0.031) K/mm3 Absolute Neuts (auto) (1.3-6.7) K/mm3 ABG pO2 (80.0-100.0) mmHg ABG O2 Saturation (95.0-100.0) % ABG O2 Content (16.0-22.0) %vol Total Hemoglobin (12.0-18.0) g/dL Carbon Dioxide (22-30) mmol/L BUN (7-17) mg/dL Creatinine (0.7-1.0) mg/dL Estimated GFR (59 - ) Glucose (65-110) mg/dL POC Capillary Glucose (65-105) mg/dl Lactic Acid 7.6 H* (0.7-2.0) mmol/L ALT (6-35) U/L Alkaline Phosphatase (38-126) U/L Total Protein (6.3-8.2) g/dL Albumin (3.5-5.1) g/dL Urine Protein (Negative) mg/dL Diabetes panel 12/29/23 12/29/23 12/29/23 Range/Units 05:17 13:54 14:56 Sodium 138 137 (137-145) mmol/L Potassium 4.4 4.4 (3.4-5.0) mmol/L Chloride 100 101 (98-107) mmol/L Carbon Dioxide 31 H 27 (22-30) mmol/L BUN 33 H 37 H (7-17) mg/dL Creatinine 1.50 H 1.60 H (0.7-1.0) mg/dL Glucose 190 H 212 H (65-110) mg/dL Hemoglobin A1c 5.5 (<5.7) % Calcium 9.5 9.3 (8.4-10.2) mg/dL AST 14 15 (14-36) U/L ALT < 6 L 8 (6-35) U/L Alkaline Phosphatase 156 H 148 H (38-126) U/L Total Protein 7.0 6.0 L (6.3-8.2) g/dL Albumin 3.7 3.3 L (3.5-5.1) g/dL Calcium panel 12/29/23 12/29/23 Range/Units 05:17 13:54 Calcium 9.5 9.3 (8.4-10.2) mg/dL Albumin 3.7 3.3 L (3.5-5.1) g/dL Pituitary panel 12/29/23 12/29/23 Range/Units 05:17 13:54 Sodium 138 137 (137-145) mmol/L Potassium 4.4 4.4 (3.4-5.0) mmol/L Chloride 100 101 (98-107) mmol/L Carbon Dioxide 31 H 27 (22-30) mmol/L BUN 33 H 37 H (7-17) mg/dL Creatinine 1.50 H 1.60 H (0.7-1.0) mg/dL Glucose 190 H 212 H (65-110) mg/dL Calcium 9.5 9.3 (8.4-10.2) mg/dL Adrenal panel 12/29/23 12/29/23 Range/Units 05:17 13:54 Sodium 138 137 (137-145) mmol/L Potassium 4.4 4.4 (3.4-5.0) mmol/L Chloride 100 101 (98-107) mmol/L Carbon Dioxide 31 H 27 (22-30) mmol/L BUN 33 H 37 H (7-17) mg/dL Creatinine 1.50 H 1.60 H (0.7-1.0) mg/dL Glucose 190 H 212 H (65-110) mg/dL Calcium 9.5 9.3 (8.4-10.2) mg/dL Total Bilirubin 0.6 0.5 (0.2-1.3) mg/dL AST 14 15 (14-36) U/L ALT < 6 L 8 (6-35) U/L Alkaline Phosphatase 156 H 148 H (38-126) U/L Total Protein 7.0 6.0 L (6.3-8.2) g/dL Albumin 3.7 3.3 L (3.5-5.1) g/dL All other labs normal. Imaging Chest x-ray: report reviewed and image reviewed Abdominal x-ray: report reviewed and image reviewed Abdomen CT scan report/results: report reviewed and image reviewed CT scan - pelvis: report reviewed and image reviewed
--- NOTE | 2023-12-29 21:50 | PC.NURSE ---
Central line placement unsuccessful, IO placed per Dr. Hutchison.
--- NOTE | 2023-12-29 22:05 | PC.NURSE ---
Patient transported to OR holding area via bed with Rn x2 at bedside.
--- NOTE | 2023-12-29 22:10 | PC.NURSE ---
2022 Daughter Catarina called to make aware of move to ICU and declining patient condition. Explained need for central line and arterial line and daughter consented over phone. Dr Zamudio also ordered Exploratory Laparotomy, bowel resection, and possible colonoscopy to be performed this evening. Daughter also consents to surgery. All consents were confirmed a second time over the phone by Patricia Quezada RN. Before patient going to surgery at 2205 had daughter sign physical consent forms.
--- NOTE | 2023-12-29 22:15 | WPDHPUPDATE1 ---
History and Physical Update Update Date/Time: 12/29/23 22:15 History and Physical has been reviewed, including an updated exam of the patient. There are NO changes in the patient's condition. Risks, benefits, and alternatives have been discussed and questions answered. Patient agrees to proceed with procedure.
--- NOTE | 2023-12-29 22:51 | P.PNAN_ITS ---
Anes - Initial Pre Proc Eval Procedure: Operation Date: 12/29/23 21:30 Proposed Procedures p Exploratory Laparotomy, Pos Bowel Resec - Lance Zamudio MD Date/Time: 12/29/23 22:51 Surgeon: India Wellington MD Pre Op Diagnosis: Diverticulitis Patient Data Age: 73 Gender: F Height: 1.6 m Weight: 121 kg Last Vital Signs Temp 36.9 C 12/29/23 19:40 Pulse 132 H 12/29/23 19:40 Resp 26 H 12/29/23 19:40 BP 80/40 L 12/29/23 20:13 Pulse Ox 96 12/29/23 19:40 O2 Del Method Nasal Cannula 12/29/23 20:10 O2 Flow Rate 6 12/29/23 20:10 Allergies Allergy/AdvReac Type Severity Reaction Status Date / Time iodine Allergy Severe Hives Verified 12/29/23 04:35 latex Allergy Severe Hives Verified 12/29/23 04:35 Contrast Media Allergy Mild Hives Uncoded 12/07/23 02:38 Home Medications Medication Instructions Recorded Confirmed Type carbidopa 25 mg-levodopa 100 mg 3 tablet PO TID 12/10/19 12/29/23 History tablet allopurinol 100 mg tablet 100 mg PO DAILY 12/12/21 12/29/23 History ropinirole 0.5 mg tablet 0.5 mg PO HS 12/12/21 12/29/23 History albuterol sulfate 90 mcg/actuation 2 puff inhalation QID PRN 12/23/21 12/29/23 History aerosol inhaler Shortness Of Breath Or Wheezing gabapentin 100 mg capsule 300 mg PO TID ##0 12/29/21 12/29/23 History pantoprazole 40 mg tablet,delayed 40 mg PO QAM 08/28/22 12/29/23 History release atorvastatin 80 mg tablet 80 mg PO DAILY 09/27/23 12/29/23 History ipratropium 0.5 mg-albuterol 3 mg 3 ml inhalation Q6H PRN Shortness 10/01/23 12/29/23 Rx (2.5 mg base)/3 mL nebulization Of Breath #90 mL soln apixaban 2.5 mg tablet (Eliquis) 2.5 mg PO BID 10/13/23 12/29/23 History bumetanide 1 mg tablet 1 mg PO DAILY 10/13/23 12/29/23 History levothyroxine 25 mcg tablet 25 mcg PO QAM 10/13/23 12/29/23 History losartan 25 mg tablet 25 mg PO DAILY 10/13/23 12/29/23 History metolazone 2.5 mg tablet 2.5 mg PO USEASDIRECTD 10/13/23 12/29/23 History oxcarbazepine 150 mg tablet 75 mg PO BID 10/13/23 12/29/23 History alprazolam 1 mg tablet 1 mg PO TID PRN Anxiety 11/20/23 12/29/23 History methocarbamol 500 mg tablet 500 mg PO TID PRN Muscle/Joint 11/29/23 12/29/23 Rx Pain #10 tabs Laboratory Tests 12/29/23 12/29/23 12/29/23 05:17 06:44 10:46 WBC 10.0 K/mm3 (4.5-10.0) RBC 2.56 L M/mm3 (4.2-5.4) Hgb 7.8 L g/dL (12.0-15.0) Hct 25.9 L % (37.0-47.0) MCV 101.2 H fl (80-100) MCH 30.5 pg (26-34) MCHC 30.1 L g/dl (32-36) RDW 16.8 H % (11.5-14.5) Plt Count 231 k/mm3 (150-375) MPV 11.3 H fl (7.4-10.4) Immature Gran % (Auto) 0.6 H % (0-0.5) Neut % (Auto) 81.2 H % (45.5-73.1) Lymph % (Auto) 6.1 L % (18.3-44.2) [place] % (Auto) 4.8 % (2.6-8.5) Eos % (Auto) 6.9 H % (0-4.4) Baso % (Auto) 0.4 % (0.2-1.2) Lymph # (Auto) 0.61 L K/mm3 (0.9-3.2) [place] # (Auto) 0.5 K/mm3 (0.1-0.6) Eos # (Auto) 0.7 H K/mm3 (0-0.3) Baso # (Auto) 0.0 K/mm3 (0.0-0.1) Abs Immat Gran (auto) 0.06 H K/mm3 (0.00-0.031) Absolute Neuts (auto) 8.1 H K/mm3 (1.3-6.7) Absolute Nucleated RBC 0.000 K/mm3 (0.0-0.012) Nucleated RBC % 0.0 % (0.0-0.2) Platelet Estimate Stomatocytes Schistocytes Puncture Site ABG pH ABG pCO2 ABG pO2 ABG PO2/FiO2 Ratio ABG HCO3 ABG O2 Saturation ABG O2 Content ABG Base Excess A-a Gradient Oxyhemoglobin Total Hemoglobin O2 Delivery Device O2 Liters/Min FiO2 Sodium 138 mmol/L (137-145) Potassium 4.4 mmol/L (3.4-5.0) Chloride 100 mmol/L (98-107) Carbon Dioxide 31 H mmol/L (22-30) Anion Gap 7 mmol/L (4-12) BUN 33 H mg/dL (7-17) Creatinine 1.50 H mg/dL (0.7-1.0) Estim Creat Clear Calc 38 ml/min Estimated GFR 34 L (59 - ) Glucose 190 H mg/dL (65-110) POC Capillary Glucose Hemoglobin A1c Lactic Acid 3.2 H mmol/L 1.3 mmol/L (0.7-2.0) (0.7-2.0) Calcium 9.5 mg/dL (8.4-10.2) Total Bilirubin 0.6 mg/dL (0.2-1.3) AST 14 U/L (14-36) ALT < 6 L U/L (6-35) Alkaline Phosphatase 156 H U/L (38-126) Total Protein 7.0 g/dL (6.3-8.2) Albumin 3.7 g/dL (3.5-5.1) Lipase 127 U/L (23-300) Urine Color Yellow (Yellow) Urine Appearance Clear (Clear) Urine pH 7.5 (5.0-9.0) Ur Specific [place] 1.014 (1.001-1.035) Urine Protein 2+ H mg/dL (Negative) Urine Glucose (UA) Negative mg/dL (Negative) Urine Ketones Negative mg/dL (Negative) Ur Blood (Man) Negative (Negative) Urine Nitrate Negative (Negative) Urine Bilirubin Negative (Negative) Urine Urobilinogen 0.2 mg/dL (<2.0) Add Ur Microanalysis Reviewed Leukocyte Esterase Rfl Negative NUBIA/UL (Negative) Urine RBC 0-2 /hpf (0-2) Urine WBC 0-5 /hpf (0-3) Ur Squamous Epith Cells None seen /hpf (Few) Urine Bacteria None seen /hpf Urine Casts 0-2 12/29/23 12/29/23 12/29/23 13:29 13:54 14:42 WBC 23.2 H K/mm3 (4.5-10.0) RBC 2.64 L M/mm3 (4.2-5.4) Hgb 8.3 L g/dL (12.0-15.0) Hct 26.1 L % (37.0-47.0) MCV 98.9 fl (80-100) MCH 31.4 pg (26-34) MCHC 31.8 L g/dl (32-36) RDW 17.1 H % (11.5-14.5) Plt Count 227 k/mm3 (150-375) MPV 10.2 fl (7.4-10.4) Immature Gran % (Auto) 0.4 % (0-0.5) Neut % (Auto) 95.0 H % (45.5-73.1) Lymph % (Auto) 0.6 L % (18.3-44.2) [place] % (Auto) 3.7 % (2.6-8.5) Eos % (Auto) 0.0 % (0-4.4) Baso % (Auto) 0.3 % (0.2-1.2) Lymph # (Auto) 0.13 L K/mm3 (0.9-3.2) [place] # (Auto) 0.9 H K/mm3 (0.1-0.6) Eos # (Auto) 0.0 K/mm3 (0-0.3) Baso # (Auto) 0.1 K/mm3 (0.0-0.1) Abs Immat Gran (auto) 0.09 H K/mm3 (0.00-0.031) Absolute Neuts (auto) 22.1 H K/mm3 (1.3-6.7) Absolute Nucleated RBC 0.000 K/mm3 (0.0-0.012) Nucleated RBC % 0.0 % (0.0-0.2) Platelet Estimate Adequate (Adequate) Stomatocytes 1+ Schistocytes None seen Puncture Site Right radial ABG pH 7.443 (7.350-7.450) ABG pCO2 35.0 mmHg (35.0-45.0) ABG pO2 64.2 L mmHg (80.0-100.0) ABG PO2/FiO2 Ratio 2.29 % ABG HCO3 23.4 mEq/l (22.0-26.0) ABG O2 Saturation 93.5 L % (95.0-100.0) ABG O2 Content 11.2 L %vol (16.0-22.0) ABG Base Excess -0.5 mEq/l (+/-2.0) A-a Gradient 94.1 mmHg Oxyhemoglobin 91.9 % THb (90.0-100.0) Total Hemoglobin 8.6 L g/dL (12.0-18.0) O2 Delivery Device Nasal cannula O2 Liters/Min 2.0 LPM FiO2 28 % Sodium 137 mmol/L (137-145) Potassium 4.4 mmol/L (3.4-5.0) Chloride 101 mmol/L (98-107) Carbon Dioxide 27 mmol/L (22-30) Anion Gap 9 mmol/L (4-12) BUN 37 H mg/dL (7-17) Creatinine 1.60 H mg/dL (0.7-1.0) Estim Creat Clear Calc 35 ml/min Estimated GFR 32 L (59 - ) Glucose 212 H mg/dL (65-110) POC Capillary Glucose 217 H mg/dl (65-105) Hemoglobin A1c Lactic Acid 2.5 H mmol/L (0.7-2.0) Calcium 9.3 mg/dL (8.4-10.2) Total Bilirubin 0.5 mg/dL (0.2-1.3) AST 15 U/L (14-36) ALT 8 U/L (6-35) Alkaline Phosphatase 148 H U/L (38-126) Total Protein 6.0 L g/dL (6.3-8.2) Albumin 3.3 L g/dL (3.5-5.1) Lipase Urine Color Urine Appearance Urine pH Ur Specific [place] Urine Protein Urine Glucose (UA) Urine Ketones Ur Blood (Man) Urine Nitrate Urine Bilirubin Urine Urobilinogen Add Ur Microanalysis Leukocyte Esterase Rfl Urine RBC Urine WBC Ur Squamous Epith Cells Urine Bacteria Urine Casts 12/29/23 12/29/23 12/29/23 14:56 16:57 20:11 WBC RBC Hgb Hct MCV MCH MCHC RDW Plt Count MPV Immature Gran % (Auto) Neut % (Auto) Lymph % (Auto) [place] % (Auto) Eos % (Auto) Baso % (Auto) Lymph # (Auto) [place] # (Auto) Eos # (Auto) Baso # (Auto) Abs Immat Gran (auto) Absolute Neuts (auto) Absolute Nucleated RBC Nucleated RBC % Platelet Estimate Stomatocytes Schistocytes Puncture Site ABG pH ABG pCO2 ABG pO2 ABG PO2/FiO2 Ratio ABG HCO3 ABG O2 Saturation ABG O2 Content ABG Base Excess A-a Gradient Oxyhemoglobin Total Hemoglobin O2 Delivery Device O2 Liters/Min FiO2 Sodium Potassium Chloride Carbon Dioxide Anion Gap BUN Creatinine Estim Creat Clear Calc Estimated GFR Glucose POC Capillary Glucose 196 H mg/dl (65-105) Hemoglobin A1c 5.5 % (<5.7) Lactic Acid 7.6 H* mmol/L (0.7-2.0) Calcium Total Bilirubin AST ALT Alkaline Phosphatase Total Protein Albumin Lipase Urine Color Urine Appearance Urine pH Ur Specific [place] Urine Protein Urine Glucose (UA) Urine Ketones Ur Blood (Man) Urine Nitrate Urine Bilirubin Urine Urobilinogen Add Ur Microanalysis Leukocyte Esterase Rfl Urine RBC Urine WBC Ur Squamous Epith Cells Urine Bacteria Urine Casts Patient hx anesthesia problems: none Family hx anesthesia problems: none Results Review: All pre-operative results and documents have been reviewed as part of the pre- operative evaluation. [facility] Past Medical History Medical History Anxiety Bipolar 1 disorder BMI greater than 40 Chronic anemia Chronic kidney disease, stage 3 Baseline creatinine ranges between 1.2 and 1.50. Chronic obstructive pulmonary disease Depression Diabetic polyneuropathy Gastroesophageal reflux disease GI bleed (01/2010) Secondary to peptic ulcer. Heart failure with preserved ejection fraction CHF has been documented however echo in 08/2023 showed normal right and left ventricular size and systolic function with normal diastolic function. Hyperlipidemia Hypertension Hypothyroidism Impaired cognition Junctional rhythm Kidney stones Neuropathy Obstructive sleep apnea Patient does not use PAP therapy at nighttime. Osteoarthritis Parkinson disease Restless leg syndrome Type 2 diabetes mellitus Surgical History Surgical History History of bilateral knee arthroplasty History of hysterectomy History of sinus surgery Family History Family History Grandparent Diabetes mellitus Acute myocardial infarction Father Acute myocardial infarction Mother Acute myocardial infarction Social History Social History Social History: Surrogate decision maker: Fly Rondon, . Code status: Full code. Smoking packs per day: 2 Smoking cigarettes per day: 40.0 Years smoked: 40 Smoking pack-years: 80.00 Smoking status: Former smoker Tobacco type: cigarettes Second hand tobacco smoke exposure: Yes Alcohol intake: never Substance use: never Substance use type: does not use Do You Feel Safe in your Home?: Yes Lack of Transportation: YES Lack of Food: Never True Current Housing: I Have Housing Concerned About Future Housing: No Difficulty Paying Gas/Electric Bills: No Difficulty Paying for Meds: No Currently Unemployed: No Education: High School Diploma/GED Difficulty w/ Childcare or Family Care: No Additional living arrangements comments: Resides in [place] with her of over 50 years. They have 3 children. Spiritual care concerns: No Anes - Eval Final PreProcedure Day of Procedure 12/29/23 22:51 Patient weight: morbidly obese Heart: regular rate and rhythm Lungs: decreased breath sounds Neurological: confused Last oral intake: >/= 8 hours ASA classification: V Emergent: yes Anesthetic plan: proceed Anesthesia type and monitoring: general ETT, standard monitoring and invasive mo nitoring Results Review: All pre-operative results and documents have been reviewed as part of the pre- operative evaluation. Informed Consent: The patient's anesthetic plan and its attendant risks and benefits were discussed with the patient/family/POA. Questions were solicited and answers provided to the satisfaction of the patient/family/POA.
--- NOTE | 2023-12-29 22:51 | PM.EVENT ---
Event Note Event Note Event Note: Rapid response had been called. Please see physician teachers' assistant note from same date. Patient at was having severe worsening of abdominal pain. She had repeat CT scan performed earlier in the day that demonstrated possible bowel ischemia. The patient developed hypotension was overtly diaphoretic and tachycardic the patient developed acute hypotension. Patient was subsequently transferred to the ICU. A isotonic fluid bolus was ordered. A night attempted placed a right IJ but the IJ deviated upward. Subsequently that line was removed. I attempted a left IJ but despite sedation the patient began thrashing and I subsequently lost access. The patient was placed on Levophed peripherally during the course of the procedure when a 2nd fluid bolus was initiated in patient's blood pressures were still in the 70s. With initiation of Levophed at 10 the patient's blood pressures did stabilize into the low 90s. When 2nd central line attempt failed I received a call from the assistant housekeeping manager that the or staff was ready to take the patient to the OR. Just prior to the patient being transferred down to the OR patient's blood pressures dropped into the 60s and 70s on the 10 of Levophed. It was suspected that the patient's 20 gauge peripheral IV had infiltrated. Subsequently I placed an IO in the patient's left anterior tibia. IO did aspirate and was easily flushed double. Pressors were subsequently placed through the IO. Patient's Levophed was increased up to 20 with improvement in systolic pressures to 90. When the patient was initially position for central line her oxygen saturations did drop into the upper 80s. Her supplemental oxygen was increased up to 5 L with improvement in her oxygen saturations. But just prior to being transferred to the OR the patient's oxygen saturations dropped again into the mid 80s. At her oxygen was subsequently turned up to 12 L high-flow. I was unable to obtain a repeat chest x-ray prior to the patient being transferred to the OR to evaluate and ensure there is no evidence of pneumothorax after the left IJ attempt. 120 minute spent in critical care activities Due to a high probability of clinically significant, life threatening deterioration, the patient required my highest level of preparedness to intervene emergently and I personally spent this critical care time directly and personally managing the patient. This critical care time included obtaining a history; examining the patient; pulse oximetry; ordering and review of studies; arranging urgent treatment with development of a management plan; evaluation of patient's response to treatment; frequent reassessment; and discussions with other providers. It was exclusive of separately billable procedures and treating other patients and teaching time. Please see Assessment and Plan section and the rest of the note for further information on patient assessment and treatment.
--- NOTE | 2023-12-29 22:53 | P.PCNANE_ITS ---
Anes - Cent Venous Cath Note Consent: I have discussed with the patient/family/POA, the need to proceed with central venous catheter insertion as an important element of the patient's clinical management given emergent patient conditions, temporal constraints may have precluded informed consent. Time-Out: A pre-procedural Time-Out was completed immediately before starting the procedure and confirmed: Patient Identification, Site, Procedure, Patient Position and the Availability of Requisite Equipment. Procedure Note Central venous catheter insertion site: left internal jugular CVC method of insertion: ultrasound-guided Hand hygiene/Aseptic technique: Hand hygiene procedures were performed. Aseptic technique was maintained throughout the procedure. Sterile barrier precautions: Maximal sterile barrier precautions, including use of a cap, mask, sterile gown, sterile gloves and a sterile full body drape. Site prep: chlorhexidine Skin anesthesia: placed under general anesthesia Micronesian: 7 Lumen: 3 Length (cm): 20 cm Depth of insertion (cm): 17 Closure/Dressing: suture, biopatch and tegaderm Complications: None immediately noted/suspected. Chest X Ray: Ordered/review to follow.
--- NOTE | 2023-12-29 22:55 | P.PCNANE_ITS ---
Arterial Cath Proc Note Consent: I have discussed with the patient/family/POA, the non-emergent placement of an arterial catheter, including its clinical necessity/indication and associated potential risks and complications. The patient/family/POA and/or understand(s) and acknowledge(s) the need to proceed with the arterial catheter insertion as an important element of the patient's clinical management. Given emergent patient conditions, temporal constraints may have precluded informed consent. Time-Out: A pre-procedural Time-Out was completed immediately before starting the procedure and confirmed: Patient Identification, Site, Procedure, Patient Position and the Availability of Requisite Equipment. Procedure Note Patient position: supine Insertion site: left radial Method of insertion: surface landmarks Senior Physical Therapist prep: sterile gloves, mask and hat Site prep: chlorahexadine Skin anesthesia: general anesthesia Gauge: 20 gauge Length (cm): 4.4 cm Closure/Dressing: antimicrobial disc and tegaderm Complications: None immediately noted/suspected.Done by JOSE.
[2023-12-29 23:14] LABS: Reflex Lactic Acid Yes or No Add Lactic
--- NOTE | 2023-12-29 23:15 | WPDPROCEDUR ---
Procedures Central Line Placement Right IJ: Central Line Date: 12/29/23 Central Line Time: 20:46 Discussed w/ the patient/family/POA,the placement of a central venous catheter, including its clinical necessity/indication & associated potential risks, benifits and alternatives.: Yes The patient/family/POA understand(s) and acknowledge(s) the need to proceed with central venous catheter insertion as an important element of the patient's clinical management.: Yes Consent: I have discussed with the patient and/or surrogate, the non-emergent placement of a central venous catheter, including its clinical necessity/indication and associated potential risks and complications. The patient and/or surrogate understand(s) and acknowledge(s) the need to proceed with central venous catheter insertion as an important element of the patient's clinical management. Time Out Performed: Yes Patient Position: trendelenburg Patient placed on monitor/pulse ox: Yes Provider Prep: mask, sterile gown, sterile gloves, Max. sterile barrier precautions, cap and hand hygiene with conventional soap/water or alcohol based hand rub Central line prep: 2% Chlorhexidine scrub Local anesthesia used: lidocaine 1% Amount of anesthesia used (ml): 4 Sterile US Technique with sterile gel/sterile probe covers: Yes Central line lumen inserted: triple Belarusian: 7 Length (cm): 16 Depth of Insertion (cm): 14 Post Procedure: sutured in place, good blood return, all ports aspirated, flushed, capped, transparent dressing, hemostatic product, antimicrobial product and securement product Post procedure x-ray: other Patient tolerated procedure: well Complications: catheter malposition Additional comments: Chest x-ray was reviewed. Patient's central line acutely made a right turn and subsequently went in AU shape appears to possibly be up into the right external jugular. Subsequently a attempt was made for IJ placement on the left however the patient despite receiving 2 mg of Versed became agitated and started thrashing about just after he received venous return and subsequently I lost access to the IJ. At that time was notified that the OR was ready for the patient. Central line attempt was truncated. Nursing staff noted that the left wrist peripheral IV may be infiltrated. At that time patient's blood pressures also acutely decompensated down into the 70s. Subsequently placed a left tibial IO
--- NOTE | 2023-12-29 23:19 | WPDPROCEDUR ---
Procedures IO Left Tibia: Time out performed: Yes Anesthetic used: none IO instrument used to penetrate the cortex: battery powered IO drill Post Procedure: aspirated marrow, easily flushes and secured in place Patient tolerated procedure: well
[2023-12-30] VITALS (11 sets, daily range): BP systolic 61–121; BP diastolic 27–45; PULSE 76–113; RESP 18–27; TEMP 36.9–37; O2SAT 93–100
--- NOTE | 2023-12-30 01:12 | W.PM.PROC2 ---
Procedure Note - Detailed Date of Procedure 12/30/23 Pre-op Diagnosis Colonic obstruction, bowel ischemia Post-op Diagnosis Other (Stercoral colitis with gangrene and perforation proximal descending colon, extensive fecal peritonitis) Procedure Performed Splenic flexure partial colonic resection Surgeon Lance Zamudio MD [employer] Alicja Purdy [facility] Anesthesia General Indications Patient came in with left lower quadrant abdominal pain and not a clear diagnosis. She initially improved with fluids and antibiotics but then early this afternoon developed the abrupt onset of much more severe abdominal pain. She had diffuse tenderness and evidence of peritonitis. CT scan showed colonic obstruction in the area of the splenic flexure with pneumatosis and possibly free intra-abdominal air. She developed septic shock and is taken to the operating room at this time for exploration, possible colon resection and possible colostomy. Findings The abdominal findings were much worse than was evident on the CT scan but consistent with her clinical deterioration. She had a large stool ball in the proximal descending colon which had led to gangrenous change and bowel perforation there. This had to be resected for any chance of survival. Unfortunately over 1/2 of a good 10 in segment of proximal descending colon was gangrenous and had the integrity of wet tissue paper. More spillage of stool occurred despite our best efforts. She became more hypotensive towards the into the surgery. There was blood loss of about 400 cc. Although this segment of bowel was removed, she was closed with no expectation for survival. The 2 bowel ends were stapled and left in the abdomen. Description of Procedure Patient was taken to surgery and induced into a general anesthesia. A left internal jugular central venous line was placed by Anesthesia as was a left radial artery catheter. The abdomen was prepped and draped. The abdomen was opened cautiously above and below the umbilicus. No bloody ascites was encountered but there was obviously very distended transverse colon. There were also dense small bowel adhesions in the area of the umbilicus and further towards the pelvis. This required a fairly difficult and tedious adhesiolysis to free the anterior abdominal wall from the small bowel. During this dissection we had glimpses of some enteric stained ascites and foul odor but still no ability to tell where it was coming from. Once all the small bowel adhesions were taken down we still had to free several omental adhesions which were stuck in the pelvis as well. When this was accomplished, I could then eviscerated the small bowel and explore the abdomen particularly the left colon where understand review of the CT was most likely where the problem resided. There was quite a long segment of sigmoid and descending colon that was reddened by adjacent inflammation but not distended. There was a hard fecal mass in the proximal descending colon very near the splenic flexure. Initially I thought this may be a tumor but in fact it was only hardened stool. Reviewing the left upper quadrant, there was already significant fecal soilage and staining of the peritoneum. None the less, if the patient was to have any hope of survival, the splenic flexure distal transverse colon and proximal descending colon would have to be removed. We exposed this area and then started proximal to the area of the distended proximal left colon. Peritoneal attachments to the more distal left colon were divided and we slowly moved up towards the fecal mass. From there, using mostly blunt dissection, was able to enter the retroperitoneum and did some blunt dissection 1st from below and then divided mesentery to the distal transverse colon and attempted to get into the retroperitoneum at the splenic flexure. The spleen itself was easily seen and was not harmed during this process. I was able to complete a retroperitoneal dissection without much in the way of additional spillage of stool. However, with attempts to mobilize the descending colon, the gangrenous wall of the proximal descending colon gave way and stool came out. Literally, the entire stercoral mass was removed and passed off the field. From there liquid stool dominated the left upper quadrant. Quickly I mobilized the rest of the proximal descending colon and the splenic flexure. I used the LigaSure to divide attachments. Eventually I had the entire splenic flexure up in the wound and out of the left upper quadrant. At this point, there was obviously significant bleeding in the left upper quadrant. I quickly mobilized the spleen fearing that this was the source of the bleeding. The spleen however was not bleeding but a mesenteric vessel in the area of the splenic flexure was bleeding significantly. It was able to be easily clamped. It was ligated with 2-0 Vicryl suture and a couple of clips were placed. This controlled the bleeding but the patient was now more hypotensive both from the fecal contamination and the blood loss. I removed some of the distal transverse colon omentum which was very contaminated with fecal material. I then mobilized the mesentery to the mid descending colon and divided the mid descending colon with a TLC 75 stapler. I continued dividing the mesentery to the more proximal descending colon as well as the splenic flexure and distal transverse colon with the LigaSure. An area on the mid transverse colon was then freed of mesentery and omental attachments. This proximal line of resection was then created again using the TLC 75 stapler. This allowed us to pass off the splenic flexure specimen. Patient was still hypotensive and requiring significant pressor support as well as fluids. We did irrigate the left upper quadrant. The fecal contamination was so severe there was no ability to try to eliminate it. We did try to decrease the fecal load that was there. The surgical team changed gown and gloves. We irrigated the area thoroughly with warm saline. We removed all fecal matter that we could see. Patient remains severely hypotensive at this point. With the patient in at grave situation, the transverse colon and mid descending colon resections were simply dropped back into the abdomen. The spleen looked good and was placed back in the left upper quadrant. We again searched for any small bits of stool and removed them. Once sponge and needle counts were correct, the midline fascia was closed with bidirectional running 1. Looped PDS. The skin was loosely approximated with mira. A bulky dressing was placed. The patient was then transferred directly to the intensive care unit. Sponge and needle counts were correct x2. Estimated Blood Loss -400 Drains Yes (Nasogastric tube, De La Cruz catheter) Packing No Pathology Yes (Splenic flexure resection) Complications Other complications (Progression of septic shock) Condition Critical Disposition ICU AM Billing Surgery - Charge Forward: Surgery Billing (Splenic flexure colon partial resection.)
--- NOTE | 2023-12-30 01:32 | PM.PNGS ---
Progress Note: A&P Assessment and Plan (1) Stercoral colitis: Code(s): K52.89 - Other specified noninfective gastroenteritis and colitis Status: Acute (2) Perforation of large intestine: Code(s): K63.1 - Perforation of intestine (nontraumatic) Status: Acute (3) Fecal peritonitis: Code(s): K65.8 - Other peritonitis Status: Acute (4) Septic shock with acute organ dysfunction due to anaerobic bacteria: Code(s): A41.4 - Sepsis due to anaerobes; R65.21 - Severe sepsis with septic shock Status: Acute Assessment and Plan: Following the surgery I met with the patient's daughter and the patient's son-in-law. I discussed with them the grave and catastrophic findings we encountered in the surgery. I explained what we did with the surgery but that the patient was in worse condition following the surgery due to septic shock and blood loss. I do not feel this condition is 1 that the patient will survive. I explained that to the patient's daughter and son-in-law. I explained that we closed the patient and transferred her to the intensive care unit but the intra-abdominal findings and peritonitis were not something that could be remedied with surgery. Patient's daughter has rescinded the full code order and the patient is now a do not resuscitate, in essence a no CPR patient. The daughter mostly wants to make sure her mother is comfortable. I conveyed their wishes to the ICU nursing staff. Dr. Abarca of Anesthesiology has also discussed the patient's case with Dr. Alcazar, the clubhouse attendant who will be managing her in the ICU. For now we will continue antibiotics vasopressor of agents and ventilator support. Subjective Subjective Date/Time Seen: 12/30/23 01:32 Interval history: Patient intubated and transferred to the intensive care unit and septic shock and unconscious. Objective Data Vital Signs Vital Signs: Vital Signs - 24 hr 12/29/23 04:32 12/29/23 06:38 12/29/23 06:39 Temperature 36.6 C Pulse Rate 79 95 Respiratory Rate 20 16 Blood Pressure 145/101 H 128/78 Pulse Oximetry 93 95 96 Oxygen Delivery Room Air Nasal Cannula Oxygen Flow Rate 2 Fraction of Inspired Oxygen 12/29/23 09:20 12/29/23 11:16 12/29/23 12:01 Temperature Pulse Rate 102 H 111 H Respiratory Rate 18 20 Blood Pressure 146/57 H 157/58 H 127/23 L Pulse Oximetry 97 96 Oxygen Delivery Oxygen Flow Rate Fraction of Inspired Oxygen 12/29/23 14:00 12/29/23 15:33 12/29/23 15:34 Temperature 36.6 C 39.2 C H 39.2 C H Pulse Rate 98 Respiratory Rate 22 H Blood Pressure 131/42 L Pulse Oximetry 95 Oxygen Delivery Oxygen Flow Rate Fraction of Inspired Oxygen 12/29/23 13:30 12/29/23 16:34 12/29/23 15:30 Temperature 38.7 C H Pulse Rate 90 Respiratory Rate Blood Pressure 109/39 L Pulse Oximetry 92 96 Oxygen Delivery Nasal Cannula Oxygen Flow Rate 2 Fraction of Inspired Oxygen 12/29/23 16:00 12/29/23 16:30 12/29/23 17:35 Temperature 37.2 C Pulse Rate 90 91 Respiratory Rate Blood Pressure 104/42 L 116/32 L Pulse Oximetry Oxygen Delivery Oxygen Flow Rate Fraction of Inspired Oxygen 12/29/23 19:45 12/29/23 20:13 12/29/23 19:40 Temperature 36.9 C Pulse Rate 132 H Respiratory Rate 26 H Blood Pressure 81/36 L 80/40 L 81/36 L Pulse Oximetry 96 Oxygen Delivery Oxygen Flow Rate Fraction of Inspired Oxygen 12/29/23 20:10 12/29/23 20:20 12/29/23 20:20 Temperature Pulse Rate 83 Respiratory Rate 21 H Blood Pressure 80/40 L Pulse Oximetry 86 L Oxygen Delivery Nasal Cannula Nasal Cannula Oxygen Flow Rate 6 5 Fraction of Inspired Oxygen 12/30/23 00:07 12/30/23 01:09 12/29/23 14:21 Temperature 37.0 C 36.6 C Pulse Rate 76 104 H 98 Respiratory Rate 18 22 H Blood Pressure 104/33 L 131/42 L Pulse Oximetry 93 99 95 Oxygen Delivery Mechanical Ventilation Oxygen Flow Rate Fraction of Inspired Oxygen 100 Intake/Output Intake/Output: Intake & Output 12/27/23 12/28/23 12/29/23 12/30/23 23:59 23:59 23:59 23:59 Intake Total 1250 350 Balance 1250 350 Meds/Results Medications: Active Medications Generic Name Dose Route Start Last Admin Trade Name Freq PRN Reason Stop Dose Admin Acetaminophen 650 mg 12/29/23 15:31 12/29/23 15:34 Acetaminophen 325 Mg Tablet PO 650 mg Q6H PRN Administration Mild Pain (1-3) or Fever Albuterol 2 puff 12/29/23 14:24 Albuterol Sulfate (*Sp) Aerosol 1 Puff INHALATION QID PRN Shortness Of Breath Or Wheezing Albuterol/Ipratropium 3 ml 12/29/23 14:24 Ipratropium 0.5 Mg/Albuterol Sulfate 2.5 Mg Ampul.Neb 3 Ml INHALATION Q6H PRN Shortness Of Breath Allopurinol 100 mg 12/30/23 09:00 Allopurinol 100 Mg Tablet PO DAILY RADHA Alprazolam 1 mg 12/29/23 14:24 Alprazolam (*Crx) 0.5 Mg Tablet PO TID PRN Anxiety Apixaban 2.5 mg 12/29/23 21:00 Apixaban 2.5 Mg Tablet PO Q12HR RADHA Atorvastatin Calcium 80 mg 12/30/23 09:00 Atorvastatin 40 Mg Tablet PO DAILY RADHA Carbidopa/Levodopa 3 tablet 12/29/23 17:00 12/29/23 17:20 Carbidopa/Levodopa 25/100 Mg Tablet PO 3 tablet TID RADHA Administration Dextrose 12.5 gm 12/29/23 14:30 Dextrose 50% 25 Gm/50 Ml Syringe IV PUSH PRN PRN Hypoglycemia Protocol Fentanyl Citrate 25 mcg 12/29/23 22:52 Fentanyl Citrate Inj (*Crx) 100 Mcg/2 Ml Vial IV PUSH Q2M PRN Pain Gabapentin 300 mg 12/29/23 17:00 12/29/23 17:20 Gabapentin 300 Mg Capsule PO 300 mg TID RADHA Administration Glucagon 1 mg 12/29/23 14:30 Glucagon For Inj 1 Mg Vial IM PRN PRN Hypoglycemia Protocol Glucose 15 gm 12/29/23 14:30 Glucose Oral Gel 15 Gm Of Glucse In 37.5 Gm Tube PO PRN PRN Hypoglycemia Protocol Piperacillin/Tazobactam/Dextrose 3.375 gm in 50 mls @ 100 mls/hr 12/29/23 15:00 12/29/23 15:20 Zosyn 3.375 Gm/Ns 50 Ml IVPB Infused Q6H RADHA Infusion Sodium Chloride 1,000 mls @ 50 mls/hr 12/29/23 14:25 12/29/23 14:50 Normal Saline Iv IV CONT 50 mls/hr .Q20H RADHA Administration Dextrose 1,000 mls @ 100 mls/hr 12/29/23 14:30 Dextrose 5% 1,000 Ml IVPB PRN PRN Hypoglycemia Protocol Phenylephrine HCl 50 mg/ 250 ml in 250 mls @ 12 mls/hr 12/29/23 20:20 Dextrose IV CONT .[id number] RADHA Protocol 40 MCG/MIN Sodium Chloride 250 mls @ 30 mls/hr 12/29/23 20:25 Normal Saline Iv IV CONT 12/30/23 04:44 .Q8H20M STA Norepinephrine Bitartrate 8 mg in 250 mls @ 9.375 mls/hr 12/29/23 20:50 Levophed 8 Mg/D5w 250 Ml IV CONT .Q24H RADHA Protocol 5 MCG/MIN Norepinephrine Bitartrate 8 mg in 250 mls @ 9.375 mls/hr 12/29/23 20:50 Levophed 8 Mg/D5w 250 Ml IV CONT .Q24H RADHA Protocol 5 MCG/MIN Lactated Ringer's 1,000 mls @ 30 mls/hr 12/29/23 22:55 Lr - Lactated Ringers Iv IV CONT .Q24H RADHA Lactated Ringer's 1,000 mls @ 30 mls/hr 12/29/23 22:55 Lr - Lactated Ringers Iv IV CONT .Q24H RADHA Norepinephrine Bitartrate 8 mg in 250 mls @ 9.375 mls/hr 12/29/23 23:45 Levophed 8 Mg/D5w 250 Ml IV CONT .Q24H RADHA Protocol 5 MCG/MIN Epinephrine HCl 1 mg/ Dextrose 251 mls @ 15.06 mls/hr 12/30/23 00:15 IV CONT .[id number] RADHA Protocol 1 MCG/MIN Insulin Aspart 2 - 5 units 12/29/23 17:00 12/29/23 17:04 Insulin Aspart (*Bkc) 100 Units/Ml SUB-Q Not Given TIDWM RADHA Protocol Insulin Aspart 1 - 2 units 12/29/23 21:00 Insulin Aspart (*Bkc) 100 Units/Ml SUB-Q HS RADHA Protocol Levothyroxine Sodium 25 mcg 12/30/23 06:30 Levothyroxine Sodium 25 Mcg Tablet PO DAILY@0630 RADHA Methocarbamol 500 mg 12/29/23 14:24 Methocarbamol 500 Mg Tablet PO TID PRN Muscle/Joint Pain Morphine Sulfate 2 mg 12/29/23 12:00 12/29/23 17:41 Morphine Sulfate (*Crx) 2 Mg/Ml Inj IV PUSH 2 mg Q2H PRN Administration Pain Rated 7-10 Non-Formulary ( 1 each 12/29/23 17:00 12/29/23 17:21 Oxcarbazepine 75 Mg PO 01/28/24 16:59 1 each Oral Tablet) BID RADHA Administration Ondansetron HCl 4 mg 12/29/23 17:35 12/29/23 17:41 Ondansetron Inj 4 Mg/2 Ml Vial IV PUSH 4 mg Q4H PRN Administration Nausea And Vomiting Ondansetron HCl 4 mg 12/29/23 22:52 Ondansetron Inj 4 Mg/2 Ml Vial IV PUSH ONCE PRN Nausea Pantoprazole Sodium 40 mg 12/30/23 09:00 Pantoprazole Sodium Iv 40 Mg Vial IV PUSH QAM RADHA Ropinirole HCl 0.5 mg 12/29/23 21:00 Ropinirole Hcl 0.5 Mg Tablet PO HS RADHA Sodium Chloride 10 ml 12/29/23 22:00 Central Line Flush IV PUSH Q8HR RADHA Sodium Chloride 20 ml 12/29/23 20:20 Central Line Flush IV PUSH PRN PRN after blood draws Radiology Results: ITS Impressions Head CT 12/29/23 14:28 IMPRESSION: No acute intracranial process. Abdomen/Pelvis CT 12/29/23 19:22 IMPRESSION: Gallbladder hydrops, may be secondary to fasting or obstruction. New proximal jejunal dilation with wall thickening, may represent ileus or obstruction. Ischemia should also be considered in the differential. Persistent large bowel obstruction, transition point at the splenic flexure, with pneumatosis, adjacent contained free air versus intravascular gas, and increasing inflammatory changes concerning for ischemia. Results reported telephonically to Angelique Petit NP by Dr. Patel at 7:50 PM on 12/29/2023. Labs Labs: Laboratory Results - last 24 hr 12/29/23 12/29/23 12/29/23 05:17 06:44 10:46 WBC 10.0 RBC 2.56 L Hgb 7.8 L Hct 25.9 L MCV 101.2 H MCH 30.5 MCHC 30.1 L RDW 16.8 H Plt Count 231 MPV 11.3 H Immature Gran % (Auto) 0.6 H Neut % (Auto) 81.2 H Lymph % (Auto) 6.1 L [place] % (Auto) 4.8 Eos % (Auto) 6.9 H Baso % (Auto) 0.4 Lymph # (Auto) 0.61 L [place] # (Auto) 0.5 Eos # (Auto) 0.7 H Baso # (Auto) 0.0 Abs Immat Gran (auto) 0.06 H Absolute Neuts (auto) 8.1 H Absolute Nucleated RBC 0.000 Nucleated RBC % 0.0 Platelet Estimate Stomatocytes Schistocytes Puncture Site ABG pH ABG pCO2 ABG pO2 ABG PO2/FiO2 Ratio ABG HCO3 ABG O2 Saturation ABG O2 Content ABG Base Excess A-a Gradient Oxyhemoglobin Total Hemoglobin O2 Delivery Device O2 Liters/Min FiO2 Sodium 138 Potassium 4.4 Chloride 100 Carbon Dioxide 31 H Anion Gap 7 BUN 33 H Creatinine 1.50 H Estim Creat Clear Calc 38 Estimated GFR 34 L Glucose 190 H POC Capillary Glucose Hemoglobin A1c Lactic Acid 3.2 H 1.3 Calcium 9.5 Total Bilirubin 0.6 AST 14 ALT < 6 L Alkaline Phosphatase 156 H Total Protein 7.0 Albumin 3.7 Lipase 127 Urine Color Yellow Urine Appearance Clear Urine pH 7.5 Ur Specific [place] 1.014 Urine Protein 2+ H Urine Glucose (UA) Negative Urine Ketones Negative Ur Blood (Man) Negative Urine Nitrate Negative Urine Bilirubin Negative Urine Urobilinogen 0.2 Add Ur Microanalysis Reviewed Leukocyte Esterase Rfl Negative Urine RBC 0-2 Urine WBC 0-5 Ur Squamous Epith Cells None seen Urine Bacteria None seen Urine Casts 0-2 12/29/23 12/29/23 12/29/23 13:29 13:54 14:42 WBC 23.2 H RBC 2.64 L Hgb 8.3 L Hct 26.1 L MCV 98.9 MCH 31.4 MCHC 31.8 L RDW 17.1 H Plt Count 227 MPV 10.2 Immature Gran % (Auto) 0.4 Neut % (Auto) 95.0 H Lymph % (Auto) 0.6 L [place] % (Auto) 3.7 Eos % (Auto) 0.0 Baso % (Auto) 0.3 Lymph # (Auto) 0.13 L [place] # (Auto) 0.9 H Eos # (Auto) 0.0 Baso # (Auto) 0.1 Abs Immat Gran (auto) 0.09 H Absolute Neuts (auto) 22.1 H Absolute Nucleated RBC 0.000 Nucleated RBC % 0.0 Platelet Estimate Adequate Stomatocytes 1+ Schistocytes None seen Puncture Site Right radial ABG pH 7.443 ABG pCO2 35.0 ABG pO2 64.2 L ABG PO2/FiO2 Ratio 2.29 ABG HCO3 23.4 ABG O2 Saturation 93.5 L ABG O2 Content 11.2 L ABG Base Excess -0.5 A-a Gradient 94.1 Oxyhemoglobin 91.9 Total Hemoglobin 8.6 L O2 Delivery Device Nasal cannula O2 Liters/Min 2.0 FiO2 28 Sodium 137 Potassium 4.4 Chloride 101 Carbon Dioxide 27 Anion Gap 9 BUN 37 H Creatinine 1.60 H Estim Creat Clear Calc 35 Estimated GFR 32 L Glucose 212 H POC Capillary Glucose 217 H Hemoglobin A1c Lactic Acid 2.5 H Calcium 9.3 Total Bilirubin 0.5 AST 15 ALT 8 Alkaline Phosphatase 148 H Total Protein 6.0 L Albumin 3.3 L Lipase Urine Color Urine Appearance Urine pH Ur Specific [place] Urine Protein Urine Glucose (UA) Urine Ketones Ur Blood (Man) Urine Nitrate Urine Bilirubin Urine Urobilinogen Add Ur Microanalysis Leukocyte Esterase Rfl Urine RBC Urine WBC Ur Squamous Epith Cells Urine Bacteria Urine Casts 12/29/23 12/29/23 12/29/23 14:56 16:57 20:11 WBC RBC Hgb Hct MCV MCH MCHC RDW Plt Count MPV Immature Gran % (Auto) Neut % (Auto) Lymph % (Auto) [place] % (Auto) Eos % (Auto) Baso % (Auto) Lymph # (Auto) [place] # (Auto) Eos # (Auto) Baso # (Auto) Abs Immat Gran (auto) Absolute Neuts (auto) Absolute Nucleated RBC Nucleated RBC % Platelet Estimate Stomatocytes Schistocytes Puncture Site ABG pH ABG pCO2 ABG pO2 ABG PO2/FiO2 Ratio ABG HCO3 ABG O2 Saturation ABG O2 Content ABG Base Excess A-a Gradient Oxyhemoglobin Total Hemoglobin O2 Delivery Device O2 Liters/Min FiO2 Sodium Potassium Chloride Carbon Dioxide Anion Gap BUN Creatinine Estim Creat Clear Calc Estimated GFR Glucose POC Capillary Glucose 196 H Hemoglobin A1c 5.5 Lactic Acid 7.6 H* Calcium Total Bilirubin AST ALT Alkaline Phosphatase Total Protein Albumin Lipase Urine Color Urine Appearance Urine pH Ur Specific [place] Urine Protein Urine Glucose (UA) Urine Ketones Ur Blood (Man) Urine Nitrate Urine Bilirubin Urine Urobilinogen Add Ur Microanalysis Leukocyte Esterase Rfl Urine RBC Urine WBC Ur Squamous Epith Cells Urine Bacteria Urine Casts
[2023-12-30] MEDS: PHENYLEPHRINE HCL INJ 50 MG in DEXTROSE 5% IN WATER 250 ML/245 ML BAG 12 ML IV CONT (01:35)
[2023-12-30] MEDS: VASOPRESSIN INJ 100 UNITS in DEXTROSE 5% 95 ML IV CONT (01:50)
[2023-12-30] MEDS: SODIUM CHLORIDE 0.9% IV 1,000 ML 50 ML IV CONT (02:09)
[2023-12-30] MEDS: PIPERACILLN/TAZ 3.375GM/NS50ML 3.375 GM/50 ML BAG IVPB (02:12)
[2023-12-30 02:19] LABS: Glucose Point of Care 133 mg/dl (65-105)
--- NOTE | 2023-12-30 02:42 | PC.NURSE ---
Mignon, [facility] telesales representative, notified via telephone of pending extubation to comfort care. Case # [id number].
[2023-12-30] MEDS: MORPHINE SULFATE INJ (*CRX) 10 MG/ML AMP 5 MG IV PUSH (03:00)
[2023-12-30] MEDS: LORazepam INJ (*CRX) 2 MG/ML VIAL IV PUSH (03:00)
--- NOTE | 2023-12-30 06:07 | PC.NURSE ---
Stew at [facility] in [place] contacted to picking machine operator body. Per MTS the patient is not a candidate for donation. Stew made aware that the patient has a rosary that the daughter wants to stay with her.
--- NOTE | 2023-12-30 16:42 | PM.DDS ---
Discharge Summary Date and Time Date of : 12/30/23 Time of : 03:43 Provider Pronounced By: 2 RNs Name of First RN That Pronounced: Andrea Joseph RN Name of Second RN That Pronounced: June Higuera RN Probable Cause of Probable Cause of : colon perforation/ischemic bowel Summary Hospital Course: This is a 73 yo female who presented with abdominal pain. initial CT with findings of colitis. initially lactae was eleated, which improved with ivfluids. She worsened clinically subsequenlty which prompted repeat ct abdomen which showed findings of ischemic bowel. 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 She underwent splenic flexure partial colonic resection. following surgery, patient went into septic shock and was treated in ICU. With grave prognosis, family withdrew care and susbsequenlty the patient . Additional Data Confirmation of as documented by pronouncing clinician: Pupillary Reflex, Palpable Pulses, Response to Stimuli, Heart Tones and Breath Sounds Name of Provider Notified: Dr Hutchison Time Provider Notified: 04:20 Provider Requests Autopsy: No Family Requests Autopsy: No Electronic Wirer Notified: Yes Date [facility] Notified of : 12/30/23 Time [facility] Notified of : 04:26
--- NOTE | 2023-12-31 16:00 | P.PNGS_ITS ---
Progress Note: A&P Assessment and Plan (1) Fecal peritonitis: Code(s): K65.8 - Other peritonitis Status: Acute Assessment and Plan: Postmortem additional note--patient just before 4:00 a.m. yesterday morning. Today I was notified by the pathologist and then saw the pathology report reflecting that the kidney and adrenal gland and on the left side were inadvertently removed with the perforated bowel and stool ball. This, of course, was not intended. As per my operative report, stool was pouring out into the abdomen and in this emergent situation I was hurriedly trying to mobi lize the proximal descending colon and splenic flexure of the colon where the bowel was gangrenous and the stool ball was located. In this process, stool was pouring into the left upper quadrant requiring a much more hurried mobilization than 1 would do in a non emergent situation. My mobilization was actually posterior to the left kidney. The adrenal gland is just on top of the left kidney and came up with the kidney. The bowel in the left upper quadrant were covered in stool with a pool of stool over this portion of bowel. Even after I mobilized the colon to the anterior the abdomen, the colon was so disfigured with gangrene and ruptured wall and stained with stool that I did not realize the kidney was included. We did see a bleeding artery deep in the pelvis. This was quickly controlled with a clamp. At 1st I thought this was the splenic artery. I mobilized and brought the spleen up to the anterior abdomen. The spleen was not bleeding and was fine. We did clamp, then ligate and clip the bleeding vessel thinking it was a mesenteric vessel. In retrospect, now, it was most likely the left renal artery. After that was controlled there really was no bleeding so the LigaSure must have been satisfactory to divide the left renal vein. Finding out today that this removal of the kidney and adrenal gland had happened with the affected colon, I called both the patient's daughter and her with separate phone calls. I explained entirely the removal of the kidney and adrenal gland including how it happened, how it was not noticed, and the emergent situation that involved rapidly performed procedures to minimize the fecal soilage that was occurring. The nephrectomy and adrenalectomy were unintended but the patient of fecal peritonitis and septic shock, not from the nephrectomy. I explained this to the daughter and as well. Full disclosure of this was carried out and all questions were answered from each of the patient's next of kin. I also encouraged them to call me if they had any further questions. (2) Perforation of large intestine: Code(s): K63.1 - Perforation of intestine (nontraumatic) Status: Acute (3) Septic shock with acute organ dysfunction due to anaerobic bacteria: Code(s): A41.4 - Sepsis due to anaerobes; R65.21 - Severe sepsis with septic shock Status: Acute Subjective Subjective Date/Time Seen: 12/31/23 16:00 Objective Data Intake/Output Intake/Output: Intake & Output 12/28/23 12/29/23 12/30/23 12/31/23 23:59 23:59 23:59 23:59 Intake Total 1278.1 1207.4 Balance 1278.1 1207.4 Meds/Results Radiology Results: ITS Impressions Head CT 12/29/23 14:28 IMPRESSION: No acute intracranial process. Abdomen/Pelvis CT 12/29/23 19:22 IMPRESSION: Gallbladder hydrops, may be secondary to fasting or obstruction. New proximal jejunal dilation with wall thickening, may represent ileus or obstruction. Ischemia should also be considered in the differential. Persistent large bowel obstruction, transition point at the splenic flexure, with pneumatosis, adjacent contained free air versus intravascular gas, and increasing inflammatory changes concerning for ischemia. Results reported telephonically to Angelique Petit NP by Dr. Patel at 7:50 PM on 12/29/2023. Chest X-Ray 12/30/23 06:00 Impression: Possible mild bibasilar pulmonary edema/atelectasis. No pneumothorax. Support tubes, as above.
== END 2023-12-30 03:43 | disposition expired | DRG 853 ==
LOC: ANHED 11:45 → ANH2MED 12:14 → ANHICU 20:39
PROVIDERS: Emergency Medicine; Surgery; Admitting Provider Internal Medicine; Emergency Provider General Practice; Visit Provider Internal Medicine
PROC: 0DBL0ZZ Excision of Transverse Colon, Open Approach (ICD-10-PCS; CPT 49000; principal; 2023-12-29 21:30)
DX: A41.4 Sepsis due to anaerobes (principal); K55.019 Acute (reversible) ischemia of small intestine, extent unspecified; R65.21 Severe sepsis with septic shock; K63.1 Perforation of intestine (nontraumatic); K65.0 Generalized (acute) peritonitis; K55.049 Acute infarction of large intestine, extent unspecified; K56.609 Unspecified intestinal obstruction, unspecified as to partial versus complete obstruction; N99.62 Intraoperative hemorrhage and hematoma of a genitourinary system organ or structure complicating other procedure; E87.20 Acidosis, unspecified; I13.0 Hypertensive heart and chronic kidney disease with heart failure and stage 1 through stage 4 chronic kidney disease, or unspecified chronic kidney disease; I50.32 Chronic diastolic (congestive) heart failure; Z68.42 Body mass index [BMI] 45.0-49.9, adult; K52.89 Other specified noninfective gastroenteritis and colitis; K66.0 Peritoneal adhesions (postprocedural) (postinfection); I95.9 Hypotension, unspecified; I95.81 Postprocedural hypotension; E11.22 Type 2 diabetes mellitus with diabetic chronic kidney disease; E78.5 Hyperlipidemia, unspecified; E11.42 Type 2 diabetes mellitus with diabetic polyneuropathy; E03.9 Hypothyroidism, unspecified; N18.30 Chronic kidney disease, stage 3 unspecified; K59.00 Constipation, unspecified; K21.9 Gastro-esophageal reflux disease without esophagitis; E66.01 Morbid (severe) obesity due to excess calories; M19.90 Unspecified osteoarthritis, unspecified site; G20.A1 Parkinson's disease without dyskinesia, without mention of fluctuations; G47.33 Obstructive sleep apnea (adult) (pediatric); G25.81 Restless legs syndrome; F41.9 Anxiety disorder, unspecified; F31.9 Bipolar disorder, unspecified; Z79.01 Long term (current) use of anticoagulants; Z87.442 Personal history of urinary calculi; Z96.653 Presence of artificial knee joint, bilateral; Z87.11 Personal history of peptic ulcer disease; Z87.891 Personal history of nicotine dependence; Z79.4 Long term (current) use of insulin
CPT/HCPCS: 36415; 36430; 36600; 70450; 71045; 74176; 80053; 81001; 82805; 82948; 83036; 83605; 83690; 85018; 85025; 86900; 86901; 86920; 87040; 87076; 88307; 94002; 96361; 96374; 96375; 99285; A9270; C1713; C1751; C1752; J0744; J1100; J1171; J2003; J2060; J2250; J2270; J2371; J2405; J2543; J2704; J3010; J7030; J7060; P9016